=== PATIENT | female | born 1975 | race Caucasian/White ===

== ENCOUNTER 2023-08-17 08:32 | Outpatient (OUT) | payer OTHER, SELFPAY ==
[2023-08-17 09:14] LABS: Carbon Dioxide 27.2 mmol/L (21.0-32.0); Chloride 104 mmol/L (98-107); Estimated GFR (African America >60 (>=60); Estimated GFR (Non-African Ame 53 (>=60); Potassium 4.2 mmol/L (3.5-5.1); Sodium 142 mmol/L (136-145)
== END 2023-08-17 08:33 | disposition home or self-care (01) ==
DX: I10 Essential (primary) hypertension (principal)
CPT/HCPCS: 36415; 80051; 82565; 84520

== ENCOUNTER 2023-08-18 08:34 | Outpatient (OUT) | payer OTHER, SELFPAY ==
--- OUTSIDE RECORDS SUMMARY | 2023-08-18 08:39 | XMS_ITS | CCD ---
Author Name Unknown Address [address] [place] [address] Organization [facility] Care Team Providers Care Cluster Bore Operator Name Role Phone Toy Obrien Primary Care Provider [phone] TOY OBRIEN Primary Care Unavailable GARFIELD RESTREPO Attending Unavailable TOY OBRIEN Primary Care Unavailable GARFIELD RESTREPO Attending Unavailable BLANCA DAWN Referring Unavailable TOY OBRIEN Primary Care Unavailable BLANCA DAWN Referring Unavailable TOY OBRIEN Primary Care Unavailable Toy Obrien MD Primary Care Provider [phone] Toy Obrien MD Primary Care Provider ZOEY Monson Attending Provider Toy Obrien MD Primary Care Provider [phone] Jud Monson Admitting Unavailable Jud Monson Attending Unavailable NON STAFF Primary Care Unavailable CRISTHIAN FALCON Attending Unavailable CRISTHIAN FALCON Attending Unavailable TOY OBRIEN Primary Care Unavailable JACOBR, LACHELLE Natty Referring Unavailable TERRY SHEFFIELD Referring Unavailabl e TOY OBRIEN Primary Care Unavailable BOBLUR, LACHELLE N Admitting Unavailable CLINTON, LACHELLE N Attending Unavailable TOY OBRIEN Primary Care Unavailable Jud Monson Unavailable TOY OBRIEN Primary Care Unavailable NOEMI PHAM Referring Unavailable NOEMI PHAM Referring Unavailable TOY OBRIEN Primary Care Unavailable TOY OBRIEN Primary Care Unavailable NOEMI PHAM Referring Unavailable TOY OBRIEN Primary Care Unavailable NOEMI PHAM Referring Unavailable NOEMI PHAM Attending Unavailable TOY OBRIEN Primary Care Unavailable TOY OBRIEN Primary Care Unavailable NOEMI PHAM Attending Unavailable TOY OBRIEN Primary Care Unavailable NOEMI PHAM Attending Unavailable TOY OBRIEN Primary Care Unavailable LIZ CONNOLLY Attending Unavailable LIZ CONNOLLY Referring Unavailable TOY OBRIEN Primary Care Unavailable Beba Richey Unavailable Toy Obrien MD Primary Care Provider Betty Moreau Unavailable CODY HUTCHINS Attending Unavailable TOY OBRIEN Referring Unavailable TOY OBRIEN Primary Care Unavailable Allergies Allergy Classification Reported Allergen(s) Allergy Type Date of Onset Reaction(s) Facility NSAIDs (1 source) meloxicam Drug Allergy 7 [facility] (20 sources) meloxicam; Translations: [MELOXICAM] Drug Allergy 7 [place], [place] (20 sources) Methotrexate; Translations: [METHOTREXATE] Drug Allergy 5 GI Upset, [facility] (5 sources) Isosorbide; Translations: [ISOSORBIDE MONONITRATE] Drug Allergy 2 Headache, Vomiting [facility] (3 sources) Isosorbide Dinitrate Drug Allergy Unknown [facility] Other Medications Current Medications Medication Drug Class(es) Dates Sig (Normalized) Sig (Original) amLODIPine 2.5 mg oral tablet (6 sources) Dihydropyridine Calcium Channel Salvador Start: 10-29-2022 take 1 tablet by mouth in the morning amLODIPine (NORVASC) 2.5 mg tablet TAKE 1 TABLET (2.5 MG TOTAL) BY MOUTH IN THE MORNING. 30 tablet 11 10/29/2022 Active amoxicillin 875 mg / clavulanate 125 mg oral tablet (2 sources) Penicillin-class Antibacterial Start: 07-13-2023 take 1 tablet by mouth every twelve hours Amoxicillin-Pot Clavulanate 875-125 MG 1 tablet Orally every 12 hrs for 10 day(s) Jun, Active ARIPiprazole 5 mg oral tablet (20 sources) Atypical Antipsychotic Start: 09-30-2021 take 1 tablet by mouth in the morning ARIPiprazole (ABILIFY) 5 mg tablet Take 1 tablet (5 mg total) by mouth in the morning. 0 09/30/2021 Active Start: 02-07-2019 take 1 tablet by candice th once daily ARIPiprazole (ABILIFY) 2 mg tablet Take 2 mg by mouth once daily. 5 02/07/2019 Active Comment on above: Take 2 mg by mouth o nce daily. aspirin 81 mg delayed release oral tablet (6 sources) Platelet Aggregation Inhibitor, Nonsteroidal Anti-inflammatory Drug Start: 09-22-2021 take 1 tablet by mouth once daily aspirin 81 mg Take 1 tablet (81 mg total) by mouth daily. 0 09/22/2021 Active take 1 tablet by candice th every twenty-four hours Aspirin 81 MG 1 tablet Orally Once a day Active busPIRone hydrochloride 10 mg oral tablet (20 sources) Start: 03-16-2022 take 1 tablet by mouth in the morning busPIRone (BUSPAR) 10 mg tablet Take 1 tablet (10 mg total) by mouth in the morning. 0 03/16/2022 Active take 1 tablet by mouth three celina es daily busPIRone (BUSPAR) 10 mg tablet Take 10 mg by mouth three times daily. 0 Active Comment on above: Take 10 mg by mouth three times daily. fluconazole 150 mg oral tablet (1 source) Azole Antifungal Start: 07-22-20 take 1 tablet by mouth once Fluconazole 150 MG 1 tablet Orally once for 1 day Jun, Active fluticasone propionate 0.05 mg/actuat metered dose nasal spray (2 sources) Corticosteroid Start: 07-13-20 take 2 spray(s) nasal route once daily Fluticasone Propionate 50 MCG/ACT 2 sprays Nasally Once a day for 14 day(s) Jun, Active 24 hr metoprolol succinate 25 mg extended release oral tablet (20 sources) beta-Adrenergic Salvador Start: 09-08-19 take 0.5 tablet by mouth every twenty-four hours in the morning metoprolol succinate XL (TOPROL XL) 25 mg 24 hr tablet Take 0.5 tablets (12.5 mg total) by mouth in the morning. 30 tablet 2 09/08/2022 Active metoprolol tartr ate, short acting, (LOPRESSOR) 25 mg tablet Take 12.5 mg by mouth once daily. 0 Active Comment on above: Take 12.5 mg by mout h once daily. nitroglycerin 0.4 mg sublingual tablet (3 sources) Nitrate Vasodilator Start: 09-14-19 nitroglycerin (NITROSTAT) 0.4 MG SL tablet 1 under the tongue as needed for angina, may repeat q5mins for up three doses 25 tablet 5 09/14/2022 Active predniSONE 20 mg oral tablet (18 sources) Start: 07-13-20 take 1 tablet by mouth every twelve hours predniSONE 20 MG 1 tablet Orally bid for 5 day(s) Jun, Active Start: 08-11-2022 take 2-3 tablets by mouth once daily predniSONE (DELTASONE) 5 mg tablet Take 2 to 3 tabs po qd 150 tablet 2 08/11/2022 Active Start: 02-07-2021 End: 02-17-2021 take 1 tablet by mouth once daily predniSONE (DELTASONE) 20 MG tablet Take 1 tablet by mouth daily for 10 days 10 tablet 0 02/07/2021 02/17/2021 Active Comment on above: Take 2 to 3 tabs po qd propranolol hydrochloride 40 mg oral tablet (5 sources) beta-Adrenergic Salvador Start: 12-27-19 13 propranolol (INDERAL) 40 MG tablet rosuvastatin calcium 5 mg oral tablet (3 sources) HMG-CoA Reductase Inhibitor Start: 08-13-19 take 1 tablet by mouth in the morning rosuvastatin (CRESTOR) 5 mg tablet Take 1 tablet (5 mg total) by mouth in the morning. 30 tablet 08/13/2022 Active sertraline 100 mg oral tablet (20 sources) Serotonin Reuptake Inhibitor Start: 03-13-20 13 sertraline (ZOLOFT) 100 MG tablet Comment on above: Take 100 mg by mouth once daily. SUMAtriptan 100 mg oral tablet (4 sources) Serotonin-1b and Serotonin-1d Receptor Agonist Start: 03-10-20 End: 08-04-19 25 SUMAtriptan (IMITREX) 100 mg tablet Take 1 tablet (100 mg total) by mouth once as needed for migraine. May repeat in 2 hours if unresolved. Do not exceed 200 mg in 24 hours. 9 tablet 08/05/2023 08/04/2024 Active tiZANidine 4 mg oral tablet (4 sources) Central alpha-2 Adrenergic Agonist Start: 03-10-20 End: 08-05-19 take 1 tablet by mouth once daily tiZANidine (ZANAFLEX) 4 mg tablet Take 1-2 tablets (4-8 mg total) by mouth nightly. 60 tablet 2 08/05/2023 Active zonisamide 100 mg oral capsule (7 sources) Anti-epileptic Agent Start: 06-20-20 End: 08-05-19 take 1 capsule by mouth once daily in the morning, then take 2 capsules by mouth once daily zonisamide (ZONEGRAN) 100 mg capsule Take 1 capsule (100 mg total) by mouth every morning AND 2 capsules (200 mg total) nightly. 90 capsule 5 08/05/2023 Active Start: 03-10-2023 End: 08-05-2023 take 1-3 capsules by mouth once daily at dinner zonisamide (ZONEGRAN) 25 mg capsule Take 1-3 capsules (25-75 mg total) by mouth Daily before evening meal. 42 capsule 0 03/10/2023 08/05/2023 Discontinued Completed/Discontinued Medications Medication Drug Class(es) Dates Sig (Normalized) Sig (Original) COMPOUNDED PRESCRIPTION (20 sources) Start: 01-03-2017 COMPOUNDED PRESCRIPTION Handicapped placard Diagnosis- RA Cannot walk >200 ft Duration- 3 yrs 1 Applicator 0 01/03/2017 Active Comment on above: Handicapped placard Diagnosis- RA Cannot walk >200 ft Duration- 3 yrs diphenhydrAMINE (2 sources) Histamine-1 Receptor Antagonist Start: 08-05-2023 End: 08-05-2023 diphenhydrAMINE (BENADRYL) injection 50 mg 1 ml etanercept 50 mg/ml prefilled syringe (20 sources) Tumor Necrosis Factor Salvador Start: 05-19-2023 Etanercept (ENBREL) 50 mg/mL (1 mL) injection Indications: Seropositive rheumatoid arthritis of multiple sites (HCC) Inject 50mg sq qwkly 12 mL 1 05/19/2023 Active Start: 12-29-2021 End: 01-14-2023 Etanercept (ENBREL) 50 mg/mL (1 mL) injection Inject 50mg sq qwkly 12 Syringe 3 12/29/2021 01/14/2023 Discontinued Start: 09-24-2021 EnbreL 50 mg/m L (1 mL) injection Start: 11-27-2020 Etanercept (EN BREL) 50 mg/mL (1 mL) injection Inject 50mg sq qwkly 12 Syringe 3 11/27/2020 Active Enbrel 25 MG/0.5 ML 0.5 mL Subcutaneous Active Comment on above: Inject 50mg sq qwkly hydroxychloroquine sulfate 200 mg oral tablet (20 sources) Antimalarial, Antirheumatic Agent Start: 2022 take 1 tablet by mouth twice daily hydrOXYchloroQUINE (PLAQUENIL) 200 mg tablet TAKE 1 TABLET BY MOUTH TWICE A DAY 60 tablet 3 03/07/2023 Active Start: 08-07-2015 End: 08-05-2023 take 1 tablet by mouth twice daily hydrOXYchloroQUINE (PLAQUENIL) 200 mg tablet Take 1 tablet by mouth twice daily. 60 tablet 3 06/07/2022 10/04/2022 Discontinued Comment on above: Take 1 tablet by candice th twice daily. TAKE 1 TABLET BY CANDICE TH TWICE A DAY ibuprofen 800 mg oral tablet (20 sources) Nonsteroidal Anti-inflammatory Drug Start: 01-19-2021 ibuprofen (MOTRIN) 800 mg tablet Take 800 mg by mouth as needed. 0 01/19/2021 Active Start: 11-20-2016 take 1 tablet by candice th every eight hours as needed for pain ibuprofen (ADVIL;MOTRIN) 600 MG tablet Take 1 tablet by mouth every 8 hours as needed for Pain 30 tablet 0 11/20/2016 Active Comment on above: Take 800 mg by mouth as needed. 1 ml ketorolac tromethamine 30 mg/ml injection (6 sources) Nonsteroidal Anti-inflammatory Drug, Cyclooxygenase Inhibitor Start: 08-05-2023 End: 08-05-2023 ketorolac (TORADOL) injection 30 mg Start: 03-25-2023 End: 08-05-2023 take 1 tablet by mouth every six hours as needed for pain ketorolac (TORADOL) 10 mg tablet Take 1 tablet (10 mg total) by mouth every 6 (six) hours as needed for pain. 10 tablet 0 03/25/2023 08/05/2023 Discontinued Start: 01-19-2021 take 1 tablet by candice th every six hours as needed for pain ketorolac (TORADOL) 10 MG tablet Take 1 tablet by mouth every 6 hours as needed for Pain 20 tablet 0 01/19/2021 Active levothyroxine sodium 0.05 mg oral tablet (20 sources) l-Thyroxine Start: 02-23-2013 take 1 tablet by mouth once daily levothyroxine (SYNTHROID) 50 mcg tablet Take 50 mcg by mouth once daily. 0 01/02/2021 Active Comment on above: Take 50 mcg by mouth once daily. 10 ml lidocaine hydrochloride 10 mg/ml injection (1 source) Antiarrhythmic, Amide Local Anesthetic Start: 06-24-2023 End: 06-24-2023 lidocaine (PF) 10 mg/mL (1 %) 2 mL injection (XYLOCAINE) magnesium oxide 400 mg oral tablet (20 sources) Start: 03-25-2021 take 1 tablet by mouth twice daily magnesium oxide (MAG-OX) 400 mg (241.3 mg magnesium) tablet Indications: Intractable migraine equivalent , Muscle twitching Take 1 tablet by mouth twice daily. 60 tablet 5 03/25/2021 Active Start: 02-12-2016 take 400 mg by mouth once rekha y Magnesium Oxide (MAG-OX PO) Take 400 mg by mouth daily 0 02/12/2016 Active Comment on above: Take 1 tablet by candice th twice daily. metaxalone 800 mg oral tablet (14 sources) Start: 01-12-2023 take 0.5 tablet by mouth twice daily as needed metaxalone (SKELAXIN) 800 mg tablet TAKE 1/2 TABLET BY MOUTH TWICE A DAY NEEDED 30 tablet 1 01/12/2023 Active Start: 10-28-2022 End: 01-12-2023 take 1 tablet by mouth twice daily as needed Metaxalone 400 mg tab One tab po bid prn 60 tablet 1 10/28/2022 01/12/2023 Discontinued Start: 02-07-2021 take 1 tablet by candice th three times daily metaxalone (SKELAXIN) 400 MG tablet Take 1 tablet by mouth 3 times daily 21 tablet 0 02/07/2021 Active Comment on above: One tab po bid prn TAKE 1/2 TABLET BY [facility] TWICE A DAY NEEDED 1 ml methylPREDNISolone acetate 80 mg/ml injection (20 sources) Corticosteroid Start: 08-11-19 End: 08-11-19 methylPREDNISolone acetate 80 mg injection (DEPO-Medrol) Start: 05-17-2022 methylPREDNISo lone (MEDROL, MARYBEL,) 4 mg Dose-Pack As Instructed per package 21 tablet 0 05/17/2022 Active Comment on above: As Instructed per elder schofield omeprazole 40 mg delayed release oral capsule (20 sources) Proton Pump Inhibitor Start: 03-06-20 take 1 capsule by mouth once daily omeprazole (PRILOSEC) 40 mg capsule Take 40 mg by mouth once daily. 0 03/06/2021 Active Comment on above: Take 40 mg by mouth once daily. ondansetron 4 mg oral tablet (20 sources) Serotonin-3 Receptor Antagonist Start: 05-13-20 End: 05-31-20 take 1 tablet by mouth every twelve hours as needed ondansetron (ZOFRAN) 4 mg tablet TAKE 1 TABLET BY MOUTH EVERY 12 HOURS NEEDED 30 tablet 2 05/31/2022 Active Comment on above: TAKE 1 TABLET BY CANDICE TH EVERY 12 HOURS NEEDED 1 ml promethazine hydrochloride 25 mg/ml injection (2 sources) Phenothiazine Start: 08-05-19 End: 08-05-19 promethazine (PHENERGAN) injection 25 mg Start: 08-05-2023 End: 08-05-2023 promethazine (PHENERGAN) inj ection 25 mg 12 hr ranolazine 1000 mg extended release oral tablet (3 sources) Anti-anginal Start: 09-14-2022 End: 08-05-2023 take 1 tablet by mouth every twelve hours in the morning, then take 1 tablet by mouth at bedtime ranolazine (RANEXA) 1,000 mg 12 hr tablet Take 1 tablet (1,000 mg total) by mouth in the morning and 1 tablet (1,000 mg total) before bedtime. 180 tablet 3 09/14/2022 08/05/2023 Discontinued semaglutide, weight loss, (WEGOVY) 0.25 mg/0.5 mL pen injector (20 sources) inject 0.25 mg by subcutaneous injection every week semaglutide, weight loss, (WEGOVY) 0.25 mg/0.5 mL pen injector Inject 0.25 mg subcutaneously one time a week. 0 Active Comment on above: Inject 0.25 mg subcutaneously one time a week. topiramate 100 mg oral tablet (20 sources) Start: 03-06-2021 take 1 tablet by mouth once daily at bedtime topiramate (TOPAMAX) 100 mg tablet Take 100 mg by mouth daily at bedtime. 0 03/06/2021 Active Start: 03-27-2013 topiramate (TO PAMAX) 25 MG tablet Take 25 mg by mouth. 0 03/27/2013 Active Comment on above: Take 100 mg by mouth daily at bedtime. 1 ml triamcinolone acetonide 40 mg/ml injection (7 sources) Corticosteroid Start: 06-24-2023 End: 06-24-2023 triamcinolone acetonide 80 mg injection (KeNALog 40) Start: 07-30-2022 Kenalog-40 May, 40 mg Problems Active Problems Problem Classification Problem Date Documented Da te Episodic/Chronic Anxiety disorders (3 sources) Anxiety; Translations: [Anxiety disorder, unspecified] Onset: 12-14-2017 08-07-2020 Chronic Asthma (3 sources) Asthma without status asthmaticus; Translations: [Unspecified asthma, uncomplicated] Onset: 09-26-2019 09-26-2019 Chronic Cardiac dysrhythmias (3 sources) Postural orthostatic tachycardia syndrome ; Translations: [Postural orthostatic tachycardia syndrome] Onset: 09-26-2019 09-07-2022 Chronic Coronary atherosclerosis and other heart disease (3 sources) Coronary artery spasm; Translations: [Angina pectoris with documented spasm] Onset: 10-14-2021 09-07-2022 Chronic Disorders of lipid metabolism (3 sources) Hypercholesterolemi a; Translations: [Pure hypercholesterolemi a, unspecified] Onset: 09-26-2019 09-26-2019 Chronic Endometriosis (3 sources) Endometriosis (clinical); Translations: [Endometriosis, unspecified] Onset: 09-26-2019 09-26-2019 Chronic Esophageal disorders (5 sources) Gastro-esophageal reflux disease without esophagitis; Translations: [Gastroesophageal reflux disease] Onset: 09-26-2019 Chronic Essential hypertension (3 sources) Hypertensive disorder; Translations: [Essential (primary) hypertension] Onset: 09-22-2021 09-07-2022 Chronic Genitourinary symptoms and ill-defined conditions (3 sources) Incontinence without sensory awareness; Translations: [Incontinence without sensory awareness] Onset: 09-26-2019 09-26-2019 Chronic Headache; including migraine (20 sources) Refractory migraine variants; Translations: [Migraine with aura, intractable, without status migrainosus] Onset: 09-26-2019 03-25-2021 Chronic Heart valve disorders (6 sources) Mitral valve regurgitation; Translations: [Nonrheumatic mitral (valve) insufficiency] Onset: 07-10-2010 Resolved: 07-23-2021 09-14-2022 Chronic Nutritional deficiencies (20 sources) Vitamin D deficiency; Translations: [Vitamin D deficiency, unspecified] Onset: 11-05-2018 11-05-2018 Chronic Other connective tissue disease (1 source) Neuropathic pain; Translations: [Neuralgia and neuritis, unspecified] Episodic Other connective tissue disease (5 sources) Fibromyalgia; Translations: [Fibromyalgia] Onset: 09-26-2019 Episodic Other connective tissue disease (1 source) Lateral epicondylitis, right elbow Episodic Other connective tissue disease (1 source) Bilateral trochanteric bursitis; Translations: [Trochanteric bursitis, right hip] 06-24-2023 Episodic Other connective tissue disease (4 sources) Muscle spasm of cervical muscle of neck; Translations: [Other muscle spasm] Onset: 09-26-2019 09-26-2019 Episodic Other endocrine disorders (3 sources) Polycystic ovary; Translations: [Polycystic ovarian syndrome] Onset: 09-26-2019 09-26-2019 Chronic Other gastrointestinal disorders (1 source) Intestinal malabsorption, unspecified; Translations: [Intestinal malabsorption, unspecified] Onset: 03-21-2023 Chronic Other gastrointestinal disorders (2 sources) Diarrhea, unspecified; Translations: [Diarrhea, unspecified] Onset: 09-08-2022 Episodic Other liver diseases (2 sources) Enzyme level - finding; Translations: [Abnormal levels of other serum enzymes] Episodic Other nervous system disorders (3 sources) Chronic pain; Translations: [Other chronic pain] Onset: 09-26-2019 09-26-2019 Chronic Other nervous system disorders (4 sources) Paresthesia; Translations: [Paresthesia of skin] Onset: 09-26-2019 09-26-2019 Episodic Other non-traumatic joint disorders (10 sources) Multiple joint pain; Translations: [Pain in unspecified joint] Onset: 01-04-2023 01-04-2023 Episodic Other non-traumatic joint disorders (1 source) Pain in right elbow Episodic Other non-traumatic joint disorders (1 source) Pain in unspecified joint; Translations: [Pain in joint, multiple sites] Onset: 06-24-2023 Episodic Other nutritional; endocrine; and metabolic disorders (20 sources) Obese class I; Translations: [Obesity, unspecified] Onset: 10-30-2018 10-30-2018 Chronic Other nutritional; endocrine; and metabolic disorders (3 sources) Insulin resistance; Translations: [Insulin resistance] Onset: 09-26-2019 09-26-2019 Chronic Other nutritional; endocrine; and metabolic disorders (3 sources) Metabolic syndrome X; Translations: [Metabolic syndrome X] Onset: 12-06-2012 06-24-2021 Chronic Other nutritional; endocrine; and metabolic disorders (3 sources) Body mass index 30+ - obesity; Translations: [Obesity, unspecified] Onset: 09-22-2021 09-22-2021 Chronic Other upper respiratory infections (1 source) Acute sinusitis, unspecified Episodic Otitis media and related conditions (1 source) Otitis media, unspecified, right ear Episodic Residual codes; unclassified (20 sources) Unrefreshed by sleep; Translations: [Other sleep disorders] Onset: 03-25-2021 03-25-2021 Chronic Residual codes; unclassified (20 sources) Obstructive sleep apnea syndrome; Translations: [Obstructive sleep apnea (adult) (pediatric)] Onset: 02-12-2020 03-25-2021 Chronic Residual codes; unclassified (3 sources) Periodic limb movement disorder; Translations: [Periodic limb movement disorder] Onset: 09-26-2019 09-26-2019 Chronic Rheumatoid arthritis and related disease (6 sources) Rheumatoid arthritis of multiple joints; Translations: [Rheumatoid arthritis, unspecified] Onset: 09-26-2019 Chronic Systemic lupus erythematosus and connective tissue disorders (3 sources) Autoimmune disease; 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, unspecified] Onset: 09-26-2019 09-26-2019 Chronic Thyroid disorders (3 sources) Acquired hypothyroidism; Translations: [Hypothyroidism, unspecified] Onset: 10-23-2015 08-21-2021 Chronic Unclassified (1 source) Sprain of left foot; Translations: [Sprain of left foot, initial encounter] Unclassified (1 source) Pain in right elbow; Translations: [Pain in right elbow] Onset: 07-30-2022 Past or Other Problems Problem Classification Problem Date Documented Da te Episodic/Chronic Abdominal pain (5 sources) Abdominal pain; Translations: [Unspecified abdominal pain] Onset: 3 03-28-2013 Episodic Blindness and vision defects (20 sources) Diplopia; Translations: [Diplopia] Onset: 9 11-05-2018 Episodic Cancer of cervix (3 sources) Cervicovaginal cytology: Low grade squamous intraepithelial lesion; Translations: [Low grade squamous intraepithelial lesion on cytologic smear of cervix (LGSIL)] Onset: 0 09-26-2019 Episodic Cardiac dysrhythmias (3 sources) Intermittent palpitations; Translations: [Palpitations] Onset: 8 08-21-2021 Episodic Coma; stupor; and brain damage (20 sources) Daytime somnolence; Translations: [Somnolence] Onset: 9 11-05-2018 Episodic Conditions associated with dizziness or vertigo (8 sources) Vertigo; Translations: [Dizziness and giddiness] Onset: 0 09-26-2019 Episodic Gastrointestinal hemorrhage (3 sources) Blood-tinged feces; Translations: [Melena] Onset: 5 06-24-2021 Episodic Malaise and fatigue (20 sources) Fatigue; Translations: [Other fatigue] Onset: 9 11-05-2018 Episodic Mood disorders (3 sources) Mood disorders Onset: 3 09-06-2022 Nonspecific chest pain (6 sources) Chest pain; Translations: [Chest pain, unspecified] Onset: 6 09-22-2021 Episodic Other connective tissue disease (20 sources) Muscle pain; Translations: [Myalgia, unspecified site] Onset: 9 11-05-2018 Episodic Other connective tissue disease (20 sources) Myofascial pain syndrome; Translations: [Myalgia, other site] Onset: 1 03-25-2021 Episodic Other connective tissue disease (1 source) Fibromyalgia; Translations: [Fibromyalgia] Onset: 0 Episodic Other connective tissue disease (1 source) Other muscle spasm; Translations: [Other muscle spasm] Onset: 0 Episodic Other disorders of stomach and duodenum (3 sources) Gastroparesis syndrome; Translations: [Gastroparesis] Onset: 0 09-26-2019 Episodic Other gastrointestinal disorders (5 sources) Abdominal bloating; Translations: [Abdominal distension (gaseous)] Onset: 3 03-28-2013 Episodic Other gastrointestinal disorders (1 source) Full incontinence of feces; Translations: [Full incontinence of feces] Onset: 3 Episodic Other gastrointestinal disorders (2 sources) Other fecal abnormalities; Translations: [Other fecal abnormalities] Onset: 3 Episodic Other liver diseases (3 sources) Abnormal levels of other serum enzymes; Translations: [Abnormal levels of other serum enzymes] Onset: 3 Episodic Other lower respiratory disease (3 sources) Dyspnea on exertion; Translations: [Shortness of breath] Onset: 5 08-21-2021 Episodic Other nervous system disorders (20 sources) Muscle fasciculation; Translations: [Fasciculation] Onset: 9 11-05-2018 Episodic Other nervous system disorders (20 sources) Muscle twitch; Translations: [Fasciculation] Onset: 1 03-25-2021 Episodic Other nervous system disorders (1 source) Paresthesia of skin; Translations: [Paresthesia of skin] Onset: 0 Episodic Other non-traumatic joint disorders (8 sources) Joint swelling; Translations: [Effusion, unspecified joint] Onset: 3 01-04-2023 Episodic Other nutritional; endocrine; and metabolic disorders (20 sources) History of nutritional deficiency; Translations: [Personal history of other endocrine, nutritional and metabolic disease] Onset: 1 03-25-2021 Episodic Other nutritional; endocrine; and metabolic disorders (20 sources) H/O: hypothyroidism; Translations: [Personal history of other endocrine, nutritional and metabolic disease] Onset: 1 03-25-2021 Episodic Other screening for suspected conditions (not mental disorders or infectious disease) (6 sources) Electrocardiogram abnormal; Translations: [Abnormal electrocardiogram [ECG] [EKG]] Onset: 0 04-21-2018 Episodic Other skin disorders (8 sources) Skin finding; Translations: [Unspecified skin changes] Onset: 3 01-04-2023 Episodic Other skin disorders (1 source) Rash and other nonspecific skin eruption; Translations: [Malar rash] Onset: 3 Episodic Residual codes; unclassified (20 sources) Disturbance in sleep behavior; Translations: [Sleep disorder, unspecified] Onset: 9 11-05-2018 Episodic Spondylosis; intervertebral disc disorders; other back problems (8 sources) Neck pain; Translations: [Cervicalgia] Onset: 0 09-26-2019 Episodic Sprains and strains (3 sources) Strain of flexor muscle of hip; Translations: [Strain of muscle, fascia and tendon of unspecified hip, initial encounter] Onset: 3 06-24-2021 Episodic Syncope (3 sources) Syncope and collapse; Translations: [Syncope and collapse] Onset: 4 Resolved: 8 04-26-2018 Episodic Unclassified (3 sources) Onset: 8 12-21-2017 Results Test Name Value Interpretation Reference Range Facil it ALDOLASE BLDon 06-24-2023 Aldolase [Catalytic activity/Vol] 11.2 mU/mL High 1.5 - 8.1 U/L [facility] Aldolase SerPl-cCncon 2022 Aldolase [Catalytic activity/Vol] 11.2 mU/mL High 1.5-8.1 [facility] Comment on above: Order Comment: Speci men Type: BLOOD SPECIMEN Ordering Facility: [facility] Address: [address] [place] [address] Result Comment: This test was developed and its performance characteristics determined by [facility]'s [facility] [place] ([facility]). It has not been cleared or approved by the FDA. [facility] is regulated under CLIA as qualified to perform high-complexity testing. This test is used for clinical purposes. It should not be regarded as investigational or for research. Performed By: #### 1 761-6 #### [facility] CLIA [id number] [address] [facility] [place] [address] [place] C-REACTIVE PROTEIN (CRP)on 08-25-2022 CRP [Mass/Vol] 0.6 mg/dL <0.9 mg/dL [facility] CBC panel Auto (Bld)on 06-24 Erythrocyte distribution width (RBC) [Ratio] 11.9 % Normal 11.5-15.0 [facility] Comment on above: Order Comment: Speci men Type: BLOOD SPECIMEN Ordering Facility: [facility] Address: [address] [place] [address] Performed By: #### 5 8410-2 #### [facility] CLIA [id number] [address] [place], [place] [id number] [place] [address] [place] Hematocrit (Bld) [Volume fraction] 45.7 % Normal 36.0-46.0 [facility] Comment on above: Order Comment: Speci men Type: BLOOD SPECIMEN Ordering Facility: [facility] Address: [address] [place] [address] Performed By: #### 5 8410-2 #### [facility] IA [id number] [address] [place] [address] [place] Hemoglobin (Bld) [Mass/Vol] 15.5 g/dL Normal 11.5-15.5 [facility] Comment on above: Order Comment: Speci men Type: BLOOD SPECIMEN Ordering Facility: [facility] Address: [address] [place] [address] Performed By: #### 5 8410-2 #### [facility] CLIA [id number] [address] [place] [address] [place] MCH (RBC) [Entitic mass] 31.6 pg Normal 26.0-34.0 [facility] Comment on above: Order Comment: Speci men Type: BLOOD SPECIMEN Ordering Facility: [facility] Address: [address] [place] [address] Performed By: #### 5 8410-2 #### [facility] CLIA [id number] [address] [place] [id number] [place] MCHC (RBC) [Mass/Vol] 33.9 g/dL Normal 30.5-36.0 [facility] Comment on above: Order Comment: Speci men Type: BLOOD SPECIMEN Ordering Facility: [facility] Address: [address] [place] [address] Performed By: #### 5 8410-2 #### [facility] CLIA [id number] [address] [place] [address] [place] MCV (RBC) [Entitic vol] 93.1 fL Normal 80.0-100.0 [facility] Comment on above: Order Comment: Speci men Type: BLOOD SPECIMEN Ordering Facility: [facility] Address: [address] [place] [address] Performed By: #### 5 8410-2 #### [facility] IA [id number] [address] [place] [address] [place] Nucleated RBC (Bld) [#/Vol] 10*3/uL Normal <0.01 [facility] Comment on above: Order Comment: Speci men Type: BLOOD SPECIMEN Ordering Facility: [facility] Address: [address] [place] [address] Performed By: #### 5 8410-2 #### [facility] IA [id number] [address] [place] [address] [place] Platelet mean volume (Bld) [Entitic vol] 10.6 fL Normal 9.0-12.7 [facility] Comment on above: Order Comment: Speci men Type: BLOOD SPECIMEN Ordering Facility: [facility] Address: [address] [place] [address] Performed By: #### 5 8410-2 #### [facility] IA [id number] [address] [place] [address] [place] Platelets (Bld) [#/Vol] 192 10*3/uL Normal 150-400 [facility] Comment on above: Order Comment: Speci men Type: BLOOD SPECIMEN Ordering Facility: [facility] Address: [address] [place] [address] Performed By: #### 5 8410-2 #### [facility] IA [id number] [address] [place] [address] [place] RBC (Bld) [#/Vol] 4.91 10*6/uL Normal 3.90-5.20 [facility] Comment on above: Order Comment: Speci men Type: BLOOD SPECIMEN Ordering Facility: [facility] Address: [address] [place] [address] Performed By: #### 5 8410-2 #### [facility] CLIA [id number] [address] [place] [address] [place] [facility] WBC (Bld) [#/Vol] 8.95 10*3/uL Normal 3.70-11.00 [facility] Comment on above: Order Comment: Speci men Type: BLOOD SPECIMEN Ordering Facility: [facility] Address: [address] [place] [id number] Performed By: #### 5 8410-2 #### [facility] CLIA [id number] [address] [place] [address] [place] Erythrocyte distribution width (RBC) [Ratio] 11.9 % 11.5 - 15.0 % [facility] Hematocrit (Bld) [Volume fraction] 45.7 % 36.0 - 46.0 % [facility] Hemoglobin (Bld) [Mass/Vol] 15.5 g/dL 11.5 - 15.5 g/dL [facility] MCH (RBC) [Entitic mass] 31.6 pg 26.0 - 34.0 pg [facility] MCHC (RBC) [Mass/Vol] 33.9 g/dL 30.5 - 36.0 g/dL [facility] MCV (RBC) [Entitic vol] 93.1 fL 80.0 - 100.0 fL [facility] Nucleated RBC (Bld) [#/Vol] <0.01 k/uL [facility] Platelet mean volume (Bld) [Entitic vol] 10.6 fL 9.0 - 12.7 fL [facility] Platelets (Bld) [#/Vol] 192 10*3/uL 150 - 400 k/uL [facility] RBC (Bld) [#/Vol] 4.91 10*6/uL 3.90 - 5.2 0 m/uL [facility] WBC (Bld) [#/Vol] 8.95 10*3/uL 3.70 - 11. 00 k/uL [facility] CK CREATINE KINASEon 023 CK [Catalytic activity/Vol] 119 U/L 42 - 196 U/L [facility] CK SerPl-cCncon 06-24-2023 CK [Catalytic activity/Vol] 119 U/L Normal 42-196 [facility] Comment on above: Order Comment: Speci men Type: BLOOD SPECIMEN Ordering Facility: [facility] Address: [place] [address] Performed By: #### 2 157-6, 1987-, 45775-9 #### [facility] CLIA [id number] [address] [place] [address] [facility] CNOVon 06-24-2023 CNOV Office Visit (RHEUAV ) LYNETTE HAIRSTON ([id number]) 1975 F Date Time Provider Department 06/24/23 11:20 AM NOEMI PHAM During your visit today, we recorded the following information about you: Pulse Respiration Blood pressure Weight 104/minute 20/minute 114/77 108.9 kg Height 1.676 m Noemi Pham MD 06/24/2023 12:23 PM Signed Lynette Meade Crescencio is a 41 year old female who presents for follow up: LABS RF+,>650, elevated aldolase levels,slightly increased sed rate and crp EMG of rt upper and lower extremities- normal PREVIOUS DIAG myalgias- h/o FM - diagnosed in 2009, chronic back pain RA and 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- elevated aldolase and complaints of weakness pleurisy gastropresis Thoracic Outlet syndrome INTERVAL HISTORY since last visit,has severe pain of rt hip Tried ES tylenol but not helping All joints are stiff and painful Ankles and feet are stiff and swollen Tops of both thighs painful Sitffness getting worse No rash, ulcers, fevers, swollen lymph nodes, DVT/PE, raynauds, sicca symptoms, trouble swallowing, back pain, red eyes, Chron's/UC or Psoriasis. MEDS/THERAPIES TRIED: Plaquenil MTX- GI side effects Tied mobic- but caused hives Magnesium- for cramps, feels it has helped her migraines neurontin - did not help Imuran- never started Skelaxin - did not help Norflex- did not help Flexeril - ''knocks me out'' Enbrel - started on 11/11- feels it is helping Currently on Enbrel and plaquenil bid REVIEW OF SYSTEMS PAST MEDICAL HISTORY Diagnosis Date - Fibromyalgia - Hypothyroidism - Migraines - POTS (postural orthostatic tachycardia syndrome) - Rheumatoid arthritis (HCC) No past surgical history on file. - Etanercept (ENBREL) 50 mg/mL (1 mL) injection Inject 50mg sq qwkly - hydrOXYchloroQUINE (PLAQUENIL) 200 mg tablet TAKE 1 TABLET BY MOUTH TWICE A DAY - metaxalone (SKELAXIN) 800 mg tablet TAKE 1/2 TABLET BY MOUTH TWICE A DAY NEEDED - predniSONE (DELTASONE) 5 mg tablet Take 2 to 3 tabs po qd - ondansetron (ZOFRAN) 4 mg tablet TAKE 1 TABLET BY MOUTH EVERY 12 HOURS NEEDED - methylPREDNISolone (MEDROL, MARYBEL,) 4 mg Dose-Pack As Instructed per package (Patient not taking: Reported on 01/14/2023) - magnesium oxide (MAG-OX) 400 mg (241.3 mg magnesium) tablet Take 1 tablet by mouth twice daily. - levothyroxine (SYNTHROID) 50 mcg tablet Take 50 mcg by mouth once daily. - metoprolol tartrate, short acting, (LOPRESSOR) 25 mg tablet Take 12.5 mg by mouth once daily. - omeprazole (PRILOSEC) 40 mg capsule Take 40 mg by mouth once daily. - topiramate (TOPAMAX) 100 mg tablet Take 100 mg by mouth daily at bedtime. - ibuprofen (MOTRIN) 800 mg tablet Take 800 mg by mouth as needed. - semaglutide, weight loss, (WEGOVY) 0.25 mg/0.5 mL pen injector Inject 0.25 mg subcutaneously one time a week. - ARIPiprazole (ABILIFY) 2 mg tablet Take 2 mg by mouth once daily. - busPIRone (BUSPAR) 10 mg tablet Take 10 mg by mouth three times daily. - COMPOUNDED PRESCRIPTION Handicapped placard Diagnosis- RA Cannot walk >200 ft Duration- 3 yrs - sertraline (ZOLOFT) 100 mg tablet Take 100 mg by mouth once daily. No family history on file. Social History Tobacco Use - Smoking status: Never - Smokeless tobacco: Never Substance Use Topics - Alcohol use: Yes Comment: Occasional - Drug use: Never There were no vitals taken for this visit. PE; ambulates well, pelasent mood Appears to be in no distress, very pleasant Pain on palpation of all joints No synovitis noted MOST RECENT LABS: REVIEWED WITH PATIENT IMP/PLAN: RA/FM- feels arthralgias are wrosening Now pain of both hips and top of thighs Rash on face still present, stopped plaquenil but rash persists -will continue to stay off plaquenil -continue Enbrel Bilateral hip pain -suspect due to bursitis, will inject today Large Joint Arthro/Inj: bilateral greater trochanteric bursa injection Informed Consent Consent Obtained: Verbal [place] Protocol A moment to CARE was completed. SIGN IN Sign in communication not applicable due to emergent procedure. Special Equipment: N/A Patient/Surrogate Stated/Verified: Patient name, Date of , Relevant allergies and Intended procedure TIME OUT Intended patient and procedure match the source document(s). Correct side/site marked and visible. 06/24/2023 12:19 PM The procedure site was prepped in the usual sterile fashion. Site: bilateral greater trochanteric bursas Medications (Right): 80 mg triamcinolone acetonide 40 mg/mL Anesthetics (Right): 2 mL lidocaine (PF) 10 mg/mL (1 %) Outcome: Tolerated well, no immediate complications Post-injection instructions were reviewed with the patient and the patient voiced understanding of these instructions. Injection sites verified by Inocencia Bui LPN In past eval by neurology for myopthay and (more content not included)... Normal [facility] CRP SerPl-mCncon 06-24-2023 CRP [Mass/Vol] 0.6 mg/dL Normal <0.9 [facility] Comment on above: Order Comment: Speci men Type: BLOOD SPECIMEN Ordering Facility: [facility] Address: [address] [place] [address] Performed By: #### 2 157-6, 1987-5, 38789-3 #### [facility] CLIA [id number] [address] [place] [address] [place] Comprehensive metabolic 2000 panelon 06-24-2023 Albumin [Mass/Vol] 4.5 g/dL Normal 3.9-4.9 [facility] Comment on above: Order Comment: Speci men Type: BLOOD SPECIMEN Ordering Facility: [facility] Address: [address] [place] [address] Performed By: #### 2 157-6, 1987-11, #### [facility] CLIA [id number] [address] [place] [address] [place] ALP [Catalytic activity/Vol] 46 U/L Normal 34-123 [facility] Comment on above: Order Comment: Speci men Type: BLOOD SPECIMEN Ordering Facility: [facility] Address: [address] [place] [address] Performed By: #### 2 157-6, 1987-11, #### [facility] IA [id number] [address] [place] [address] [place] ALT [Catalytic activity/Vol] 46 U/L High 7-38 [facility] Comment on above: Order Comment: Speci men Type: BLOOD SPECIMEN Ordering Facility: [facility] Address: [address] [place] [address] Performed By: #### 2 157-6, 1987-11, #### [facility] CLIA [id number] [address] [place] [address] [place] Anion gap [Moles/Vol] 8 mmol/L Low 9-18 [facility] Comment on above: Order Comment: Speci men Type: BLOOD SPECIMEN Ordering Facility: [facility] Address: [address] [place] [address] Performed By: #### 2 157-6, 1987-11, #### [facility] CLIA [id number] [place] [address] [place] AST [Catalytic activity/Vol] 39 U/L High 13-35 [facility] Comment on above: Order Comment: Speci men Type: BLOOD SPECIMEN Ordering Facility: [facility] Address: [address] [place] [address] Performed By: #### 2 157-6, 1987-11, #### [facility] CLIA [id number] [address] [place] [address] [place] Bilirubin [Mass/Vol] 1.2 mg/dL Normal 0.2-1.3 [facility] Comment on above: Order Comment: Speci men Type: BLOOD SPECIMEN Ordering Facility: [facility] Address: [address] [place] [address] Performed By: #### 2 157-6, #### [facility] CLIA [id number] [address] [place] [address] [place] Calcium [Mass/Vol] 9.5 mg/dL Normal 8.5-10.2 [facility] Comment on above: Order Comment: Speci men Type: BLOOD SPECIMEN Ordering Facility: [facility] Address: [address] [place] [address] Performed By: #### 2 157-6, #### [facility] CLIA [id number] [address] [place] [address] [place] Chloride [Moles/Vol] 105 mmol/L Normal 97-105 [facility] Comment on above: Order Comment: Speci men Type: BLOOD SPECIMEN Ordering Facility: [facility] Address: [address] [place] [id number] Performed By: #### 2 157-6, #### [facility] CLIA [id number] [address] [place] [address] [place] CO2 [Moles/Vol] 27 mmol/L Normal 22-30 [facility] Comment on above: Order Comment: Speci men Type: BLOOD SPECIMEN Ordering Facility: [facility] Address: [address] [place] [address] Performed By: #### 2 157-6, #### [facility] CLIA [id number] [address] [place], [place] [address] [place] [address] [place] Creatinine [Mass/Vol] 1.10 mg/dL High 0.58-0.96 [facility] Comment on above: Order Comment: [place] Type: BLOOD SPECIMEN Ordering Facility: [facility] Address: [address] [place] [address] Performed By: #### 2 157-6, #### [facility] CLIA [id number] [address] [place] [address] [facility] Creatinine and Glomerular filtration rate.predicted panel (S/P/Bld) 62 mL/min/1.73m??? Normal >=60 [facility] Comment on above: Order Comment: [place] Type: BLOOD SPECIMEN Ordering Facility: [facility] Address: [address] [place] [address] Result Comment: Flores mated Glomerular Filtration Rate (eGFR) is calculated using the 2020 CKD-EPI creatinine equation. This equation utilizes serum creatinine, sex, and age as parameters. The creatinine assay has traceable calibration to isotope dilution-mass spectrometry. Refer to KDIGO guidelines for clinical interpretation. In patients with unstable renal function, e.g. those with acute kidney injury, the eGFR may not accurately reflect actual GFR. Performed By: #### 2 157-6, #### [facility] CLIA [id number] [address] [place] [address] [place] Glucose [Mass/Vol] 94 mg/dL Normal 74-99 [facility] Comment on above: Order Comment: [place] Type: BLOOD SPECIMEN Ordering Facility: [facility] Address: [address] [place] [address] Result Comment: The [place] Diabetes Association (ADA) provides guidance for cutoff values for fasting glucose and random glucose. The ADA defines fasting as no caloric intake for at least 8 hours. Fasting plasma glucose results between 100 to 125 mg/dL indicate increased risk for diabetes (prediabetes). Fasting plasma glucose results greater than or equal to 126 mg/dL meet the criteria for diagnosis of diabetes. In the absence of unequivocal hyperglycemia, results should be confirmed by repeat testing. In a patient with classic symptoms of hyperglycemia or hyperglycemic crisis, random plasma glucose results greater than or equal to 200 mg/dL meet the criteria for diagnosis of diabetes. Reference: Standards of Medical Care in Diabetes 2016, [employer] Diabetes Association. Diabetes Care. 2016.39(Suppl 1). Performed By: #### 2 157-6, #### [facility] CLIA [id number] [address] [place] [address] [place] Potassium [Moles/Vol] 4.2 mmol/L Normal 3.7-5.1 [facility] Comment on above: Order Comment: Speci men Type: BLOOD SPECIMEN Ordering Facility: [facility] Address: [address] [place] [address] Performed By: #### 2 157, #### [facility] CLIA [id number] [place] [address] [place] Protein [Mass/Vol] 7.3 g/dL Normal 6.3-8.0 [facility] Comment on above: Order Comment: Speci men Type: BLOOD SPECIMEN Ordering Facility: [facility] Address: [address] [place] [address] Performed By: #### 2 1576, #### [facility] CLIA [id number] [address] [place] [address] [place] Sodium [Moles/Vol] 140 mmol/L Normal 136-144 [facility] Comment on above: Order Comment: Speci men Type: BLOOD SPECIMEN Ordering Facility: [facility] Address: [address] [place] [address] Performed By: #### 2 1576, #### [facility] CLIA [id number] [place] [address] [place] Urea nitrogen [Mass/Vol] 12 mg/dL Normal 7-21 [facility] Comment on above: Order Comment: Speci men Type: BLOOD SPECIMEN Ordering Facility: [facility] Address: [address] [place] [address] Performed By: #### 2 1576, 1987-, 19651-5 #### [facility] CLIA [id number] [place] [address] [place] Albumin [Mass/Vol] 4.5 g/dL 3.9 - 4.9 g/dL [facility] ALP [Catalytic activity/Vol] 46 U/L 34 - 123 U/L [facility] ALT [Catalytic activity/Vol] 46 U/L High 7 - 38 U/L [facility] Anion gap [Moles/Vol] 8 mmol/L Low 9 - 18 mmol/L [facility] AST [Catalytic activity/Vol] 39 U/L High 13 - 35 U/L [facility] Bilirubin [Mass/Vol] 1.2 mg/dL 0.2 - 1.3 mg/dL [facility] Calcium [Mass/Vol] 9.5 mg/dL 8.5 - 10. 2 mg/dL [facility] Chloride [Moles/Vol] 105 mmol/L 97 - 105 mmol/L [facility] CO2 [Moles/Vol] 27 mmol/L 22 - 30 mmol/L [facility] Creatinine [Mass/Vol] 1.10 mg/dL High 0.58 - 0.96 mg/dL [facility] Estimated Glomerular Filtration Rate 62 mL/min/1.73m >=60 mL/min/1.73m [facility] Glucose [Mass/Vol] 94 mg/dL 74 - 99 mg/dL [facility] Potassium [Moles/Vol] 4.2 mmol/L 3.7 - 5.1 mmol/L [facility] Protein [Mass/Vol] 7.3 g/dL 6.3 - 8.0 g/dL [facility] Sodium [Moles/Vol] 140 mmol/L 136 - 144 mmol/L [facility] Urea nitrogen [Mass/Vol] 12 mg/dL 7 - 21 mg/dL [facility] ESR Westergren method (Bld) [Velocity]on 06-24-2023 ESR (Bld) [Velocity] 23 mm/h High 0 - 20 mm/hr [facility] ESR (Bld) [Velocity] 23 mm/h High 0-20 [facility] Comment on above: Order Comment: Speci men Type: BLOOD SPECIMEN Ordering Facility: [facility] Address: [address] [place], [place] [address] [address] Performed By: #### 2 157-6, 1988-5, 96196-0 #### [facility] CLIA [id number] [place] [address] [place] No Panel Informationon 06-24 [facility] XR LUMBAR 3V AP/LAT/L5-S1on 06-24-2023 XR LUMBAR 3V AP/LAT/L5-S1 * * *Final Report* * * DATE OF EXAM: Jun 24 2023 12:48PM VHX [id number] - XR LUMBAR 3V AP/LAT/L5-S1 / PROCEDURE REASON: Pain in joint, multiple sites * * * * Physician Interpretation * * * * HISTORY: Pain in joint, multiple sites TECHNOLOGIST PROVIDED HISTORY (if applicable): CHRONIC LOW BACK PAIN AND BILATERAL HIP/GROIN PAIN NO INJURY TECHNIQUE: XR LUMBAR 3V AP/LAT/L5-S1 RESULT: Lumbar spine 3 views, compared with 02/28/2019. Counting reference: Lumbosacral junction. For the purposes of this report, L5-S1 is considered the most caudal well formed disc space. Levocurvature centered at the thoracolumbar junction is again seen. The lordosis is preserved. There is no subluxation or compression. Minimal disc space narrowing and osteophyte formation is seen at the L3-4 level similar to prior. Other disc heights are maintained. Sacroiliac joints are symmetrically preserved. Visualized hips are preserved. RIGHT upper quadrant surgical clips are again seen. IMPRESSION: MILD DEGENERATIVE CHANGES AND LEVOSCOLIOSIS SIMILAR TO PRIOR. Seam Closer: PSCB Transcribe Date/Time: Jun 24 2023 1:12P Dictated by : BRADY FELDMAN MD This examination was interpreted and the report reviewed and electronically signed by: BRADY FELDMAN MD on Jun 24 2023 1:14PM EST [id number] Normal [facility] Mary 05-12-2023 STACIAN Telephone ([employer]) LYNETTE HAIRSTON ([id number]) 1975 F Date Time Provider Department 05/12/23 NOEMI PHAM During your visit today, we recorded the following information about you: Refugio Mosqueda 05/12/2023 1:20 PM Signed Ashwini from [facility] is calling Noemi Pham MD today to clarify medication. When they were filling the enbrel, it flagged that the patient has a thrombocytopenia diagnosis. They need to clarify that the provider is aware. They cannot send the medication until they get that clarification. [phone] Patient has been identified by name and birthdate. Duration of symptoms: N/A Person calling: pharmacy: [facility] Call patient at: on cell [phone] (home) [phone] (cell) Was an appointment scheduled: No Closing statement: Results or non-symptom based questions: Thank you for calling [facility], your call will be returned within the next business day. Refugio Mosqueda Allison York [facility] 05/12/2023 1:29 PM Signed Faxed [facility], patient is no longer on medication Jonelle Flores Ma 05/19/2023 9:12 AM Signed Patient calling back. States she is on Enbrel. She takes it once a week and has not had it in about 2 weeks. She is starting to get pain. She is no longer on Plaquenil. Asking for the office to call [facility] to get this straightened out. She only had low platelets when she had covid. Please advise Inocencia Bui LPN 05/19/2023 9:58 AM Signed Order pended for Enbrel refill. Did call [facility] to verify medication is ok to refill. Most recent Rheumatology visit: 01/14/2023 (with Noemi Pham) Recent Office Visits - This Specialty 01/14/2023 Zack foreman Rheumatology Noemi Pham MD 08/11/2022 Rheumatoid arthritis involving multiple sites, unspecified whether rheumatoid factor present (HCC) Rheumatology Noemi Pham MD 08/19/2021 Rheumatoid arthritis of multiple sites with negative rheumatoid factor (HCC) Rheumatology Noemi Pham MD Upcoming Rheumatology Appointments - Next 365 Days Visit Type Date Time Department [facility] MEDICAL 06/24/2023 11:20 AM [facility] REJ Last Ophthalmology Check for Plaquenil (Hydroxychloroquine) Last OCT Macula Exam No resulted procedures found. Last Visual Field Exam No resulted procedures found. CBC: None on file in the last 6 months Vitamin D: None on file in the last 6 months LFT: None on file in the last 6 months Hepatic Function: Creatinine: None on file in the last 6 months ESR/CRP: ESR, WSR Latest Ref Rng AND Units 08/11/2022 01/14/2023 WSR 0 - 20 mm/hr 23(H) 16 CRP Latest Ref Rng AND Units 08/11/2022 01/14/2023 CRP <0.9 mg/dL 0.8 0.6 Uric Acid: None on file in the last 6 months Open Standing (Multiple Instance) Lab Orders None Open Future (Single Instance) Lab Orders None Inocencia Bui LPN 05/19/2023 9:58 AM Signed Addended by: INOCENCIA BUI LPN on: 05/19/2023 09:58 AM Modules accepted: Orders Inocencia Bui LPN 05/19/2023 10:06 AM Signed Spoke with patient. [facility] had held medication due to dx of thrombocytopenia. I spoke with [facility] and informed them patient was cleared from thrombocytopenia and ok to continue medication. Order pended for refills. Noemi Pham MD 05/19/2023 1:10 PM Signed The following approved medication requests have been transmitted electronically. Requested Prescriptions Signed Prescriptions Disp Refills Etanercept (ENBREL) 50 mg/mL (1 mL) injection 12 mL 1 Sig: Inject 50mg sq qwkly Authorizing Provider: NOEMI PHAM MD Mathai, Susan P, MD 05/19/2023 1:10 PM Signed Addended by: NOEMI PHAM on: 05/19/2023 01:10 PM Modules accepted: Orders Allergies As of Date: 05/12/2023 Noted Allergy Reaction MELOXICAM 11/23/2016 4 - Hives Comments: METHOTREXATE 12/25/2014 8 - GI Upset Date Reviewed: 01/14/2023 Reviewed by: Rice, Minna, RN - Fully Assessed Reason for Visit: Medication Problem [65] Primary Visit Diagnosis:Seropositive rheumatoid arthritis of multiple sites (HCC) [M05.79] Order(s):Etanercept (ENBREL) 50 mg/mL (1 mL) injectionInject 50mg sq qwklyDisp: 12 mLRfl: 1 Prescriptions as of 05/19/2023 - Etanercept (ENBREL) 50 mg/mL (1 mL) injection Inject 50mg sq qwkly - hydrOXYchloroQUINE (PLAQUENIL) 200 mg tablet TAKE 1 TABLET BY MOUTH TWICE A DAY - metaxalone (SKELAXIN) 800 mg tablet TAKE 1/2 TABLET BY MOUTH TWICE A DAY NEEDED - predniSONE (DELTASONE) 5 mg tablet Take 2 to 3 tabs po qd - ondansetron (ZOFRAN) 4 mg tablet TAKE 1 TABLET BY MOUTH EVERY 12 HOURS NEEDED - methylPREDNISolone (MEDROL, MARYBEL,) 4 mg Dose-Pack As Instructed per package - magnesium oxide (MAG-OX) 400 mg (241.3 mg magnesium) tablet Take 1 tablet by mouth twice daily. - levothyroxine (SYNTHROID) 50 mcg tablet Take 50 mcg by mouth once daily. - metoprolol tartrate, short acting, (LOPR (more content not included)... Normal [facility] Miscellaneouson 03-24-2023 Send Out Report Normal [facility] Comment on above: Result Comment: PERF ORMED AT [facility] [address] [place] [phone] (NOTE) Fat, Fecal Quantitative 72-Hour Collection (Includes Homogenization) [facility] test code [id number] Fat, Fecal Quantitative 72-Hour 4.2 g/d (Ref Interval: 0.0-6.0) INTERPRETIVE INFORMATION: Fat, Fecal Quantitative 72-Hour Collection Access complete set of age- and/or gender-specific reference intervals for this test in the [facility] Laboratory Test Directory ([place]). This test was developed and its performance characteristics determined by [facility]. It has not been cleared or approved by the US Food and Drug Administration. This test was performed in a CLIA certified laboratory and is intended for clinical purposes. - - - - - - - - - - - - - - - - - - - - - - - - - - - - - - Fecal Total Weight 672 g Performed By: #### C MIS #### [facility] [address] [place] [address] Lieutenant Colonel: Richie Alexis DO Miscellaneouson 03-22-2023 Test Name 72 Normal [facility] Comment on above: Performed By: #### C MIS #### [facility] [address] [place] [address] Lieutenant Colonel: Richie Alexis DO CNPNon 03-09-2023 CNPN Telephone ([facility]) LYNETTE HAIRSTON ([id number]) 1975 F Date Time Provider Department 03/09/23 NOEMI PHAM During your visit today, we recorded the following information about you: Noemi Pham MD 03/09/2023 1:38 PM Signed She can continue on the plaquenil bid, eye exam reviewed, no toxicity noted. MD Rosa Lopez Jennifer LPN 03/09/2023 1:59 PM Signed Patient stopped taking the Plaquenil d/t skin rash. Provider aware. Allergies As of Date: 03/09/2023 Noted Allergy Reaction MELOXICAM 11/23/2016 4 - Hives Comments: METHOTREXATE 12/25/2014 8 - GI Upset Date Reviewed: 01/14/2023 Reviewed by: Minna Mckinney, BANDAR - Fully Assessed Prescriptions as of 03/09/2023 - hydrOXYchloroQUINE (PLAQUENIL) 200 mg tablet TAKE 1 TABLET BY MOUTH TWICE A DAY - metaxalone (SKELAXIN) 800 mg tablet TAKE 1/2 TABLET BY MOUTH TWICE A DAY NEEDED - predniSONE (DELTASONE) 5 mg tablet Take 2 to 3 tabs po qd - ondansetron (ZOFRAN) 4 mg tablet TAKE 1 TABLET BY MOUTH EVERY 12 HOURS NEEDED - methylPREDNISolone (MEDROL, MARYBEL,) 4 mg Dose-Pack As Instructed per package - magnesium oxide (MAG-OX) 400 mg (241.3 mg magnesium) tablet Take 1 tablet by mouth twice daily. - levothyroxine (SYNTHROID) 50 mcg tablet Take 50 mcg by mouth once daily. - metoprolol tartrate, short acting, (LOPRESSOR) 25 mg tablet Take 12.5 mg by mouth once daily. - omeprazole (PRILOSEC) 40 mg capsule Take 40 mg by mouth once daily. - topiramate (TOPAMAX) 100 mg tablet Take 100 mg by mouth daily at bedtime. - ibuprofen (MOTRIN) 800 mg tablet Take 800 mg by mouth as needed. - semaglutide, weight loss, (WEGOVY) 0.25 mg/0.5 mL pen injector Inject 0.25 mg subcutaneously one time a week. - ARIPiprazole (ABILIFY) 2 mg tablet Take 2 mg by mouth once daily. - busPIRone (BUSPAR) 10 mg tablet Take 10 mg by mouth three times daily. - COMPOUNDED PRESCRIPTION Handicapped placard Diagnosis- RA Cannot walk >200 ft Duration- 3 yrs - sertraline (ZOLOFT) 100 mg tablet Take 100 mg by mouth once daily. Problem List As Of Date 03/09/2023 Noted Resolved Obesity, Class I, BMI 30-34.9 [E66.9] 10/30/2018 Fatigue [R53.83] 11/05/2018 Sleep disturbances [G47.9] 11/05/2018 Transient diplopia [H53.2] 11/05/2018 Daytime sleepiness [R40.0] 11/05/2018 Vitamin D deficiency [E55.9] 11/05/2018 Myalgia [M79.10] 11/05/2018 Benign fasciculations [R25.3] 11/05/2018 Myofascial pain dysfunction syndrome [M79.18] 03/25/2021 Intractable migraine equivalent [G43.119] 03/25/2021 Muscle twitching [R25.3] 03/25/2021 Non-restorative sleep [G47.8] 03/25/2021 MARINE (obstructive sleep apnea) [G47.33] 03/25/2021 History of vitamin D deficiency [Z86.39] 03/25/2021 History of hypothyroidism [Z86.39] 03/25/2021 Joint swelling [M25.40] 01/04/2023 Polyarthralgia [M25.50] 01/04/2023 Recent skin changes [R23.9] 01/04/2023 Encounter Status:Closed by JUD HESS LPN on 03/09/23 [facility] 01-28-2023 CNPN Telephone ([facility]) LYNETTE HAIRSTON ([id number]) 1975 F Date Time Provider Department 01/28/23 NOEMI PHAM During your visit today, we recorded the following information about you: Abby Nassar 01/28/2023 10:42 AM Signed Patient would like a copy of the lab order(s) you wish for her to have done mailed to her. She's going to have this done at a facility closer to her. Please print and sign and mail to her. Brianda Palomares LPN 01/31/2023 12:27 PM Signed Lab order mailed to patient per request. Francis Ellis 02/03/2023 12:37 PM Signed Patient called and stated she wanted information faxed to her. She is wondering if this can also be faxed to her she asked for it to be faxed before 430 as that is the time she leaves from work. Jud Hess LPN 02/03/2023 2:30 PM Signed Lab req faxed to number provided per patient request. Allergies As of Date: 01/28/2023 Noted Allergy Reaction MELOXICAM 11/23/2016 4 - Hives Comments: METHOTREXATE 12/25/2014 8 - GI Upset Date Reviewed: 01/14/2023 Reviewed by: Minna Mckinney RN - Fully Assessed Reason for Visit: Orders [681] Prescriptions as of 02/03/2023 - metaxalone (SKELAXIN) 800 mg tablet TAKE 1/2 TABLET BY MOUTH TWICE A DAY NEEDED - hydrOXYchloroQUINE (PLAQUENIL) 200 mg tablet TAKE 1 TABLET BY MOUTH TWICE A DAY - predniSONE (DELTASONE) 5 mg tablet Take 2 to 3 tabs po qd - ondansetron (ZOFRAN) 4 mg tablet TAKE 1 TABLET BY MOUTH EVERY 12 HOURS NEEDED - methylPREDNISolone (MEDROL, MARYBEL,) 4 mg Dose-Pack As Instructed per package - magnesium oxide (MAG-OX) 400 mg (241.3 mg magnesium) tablet Take 1 tablet by mouth twice daily. - levothyroxine (SYNTHROID) 50 mcg tablet Take 50 mcg by mouth once daily. - metoprolol tartrate, short acting, (LOPRESSOR) 25 mg tablet Take 12.5 mg by mouth once daily. - omeprazole (PRILOSEC) 40 mg capsule Take 40 mg by mouth once daily. - topiramate (TOPAMAX) 100 mg tablet Take 100 mg by mouth daily at bedtime. - ibuprofen (MOTRIN) 800 mg tablet Take 800 mg by mouth as needed. - semaglutide, weight loss, (WEGOVY) 0.25 mg/0.5 mL pen injector Inject 0.25 mg subcutaneously one time a week. - ARIPiprazole (ABILIFY) 2 mg tablet Take 2 mg by mouth once daily. - busPIRone (BUSPAR) 10 mg tablet Take 10 mg by mouth three times daily. - COMPOUNDED PRESCRIPTION Handicapped placard Diagnosis- RA Cannot walk >200 ft Duration- 3 yrs - sertraline (ZOLOFT) 100 mg tablet Take 100 mg by mouth once daily. Problem List As Of Date 01/28/2023 Noted Resolved Obesity, Class I, BMI 30-34.9 [E66.9] 10/30/2018 Fatigue [R53.83] 11/05/2018 Sleep disturbances [G47.9] 11/05/2018 Transient diplopia [H53.2] 11/05/2018 Daytime sleepiness [R40.0] 11/05/2018 Vitamin D deficiency [E55.9] 11/05/2018 Myalgia [M79.10] 11/05/2018 Benign fasciculations [R25.3] 11/05/2018 Myofascial pain dysfunction syndrome [M79.18] 03/25/2021 Intractable migraine equivalent [G43.119] 03/25/2021 Muscle twitching [R25.3] 03/25/2021 Non-restorative sleep [G47.8] 03/25/2021 MARINE (obstructive sleep apnea) [G47.33] 03/25/2021 History of vitamin D deficiency [Z86.39] 03/25/2021 History of hypothyroidism [Z86.39] 03/25/2021 Joint swelling [M25.40] 01/04/2023 Polyarthralgia [M25.50] 01/04/2023 Recent skin changes [R23.9] 01/04/2023 Encounter Status:Closed by BRIANDA PALOMARES on 01/31/23 [facility] 01-26-2023 CNPN Telephone ([facility]) LYNETTE HAIRSTON ([id number]) 1975 F Date Time Provider Department 01/26/23 NOEMI PHAM During your visit today, we recorded the following information about you: Gris Warner RN 01/26/2023 8:38 AM Signed The pt is calling regarding her lab results. She is currently holding her Enbrel because you thought she may have medication induced Lupus. She thought you were going to order the Anti LEVY ID (ENAID) but it was not on the lest of meds that were drawn. Do you still want her to have it drawn? If so, will you please mail the signed order with a return fax number for the results to her home, The address in the system is correct. She doesn't think she can restart the Enbrel until she gets the result of this test. You may call and leave a message to let her know what you are going to do at the number listed in contacts. Thank you. Noemi Pham MD 01/26/2023 11:13 AM Signed Message sent on [employer] regarding this . Noemi Pham MD Allergies As of Date: 01/26/2023 Noted Allergy Reaction MELOXICAM 11/23/2016 4 - Hives Comments: METHOTREXATE 12/25/2014 8 - GI Upset Date Reviewed: 01/14/2023 Reviewed by: Minna Mckinney RN - Fully Assessed Reason for Visit: Orders [681] Prescriptions as of 01/26/2023 - metaxalone (SKELAXIN) 800 mg tablet TAKE 1/2 TABLET BY MOUTH TWICE A DAY NEEDED - hydrOXYchloroQUINE (PLAQUENIL) 200 mg tablet TAKE 1 TABLET BY MOUTH TWICE A DAY - predniSONE (DELTASONE) 5 mg tablet Take 2 to 3 tabs po qd - ondansetron (ZOFRAN) 4 mg tablet TAKE 1 TABLET BY MOUTH EVERY 12 HOURS NEEDED - methylPREDNISolone (MEDROL, MARYBEL,) 4 mg Dose-Pack As Instructed per package - magnesium oxide (MAG-OX) 400 mg (241.3 mg magnesium) tablet Take 1 tablet by mouth twice daily. - levothyroxine (SYNTHROID) 50 mcg tablet Take 50 mcg by mouth once daily. - metoprolol tartrate, short acting, (LOPRESSOR) 25 mg tablet Take 12.5 mg by mouth once daily. - omeprazole (PRILOSEC) 40 mg capsule Take 40 mg by mouth once daily. - topiramate (TOPAMAX) 100 mg tablet Take 100 mg by mouth daily at bedtime. - ibuprofen (MOTRIN) 800 mg tablet Take 800 mg by mouth as needed. - semaglutide, weight loss, (WEGOVY) 0.25 mg/0.5 mL pen injector Inject 0.25 mg subcutaneously one time a week. - ARIPiprazole (ABILIFY) 2 mg tablet Take 2 mg by mouth once daily. - busPIRone (BUSPAR) 10 mg tablet Take 10 mg by mouth three times daily. - COMPOUNDED PRESCRIPTION Handicapped placard Diagnosis- RA Cannot walk >200 ft Duration- 3 yrs - sertraline (ZOLOFT) 100 mg tablet Take 100 mg by mouth once daily. Problem List As Of Date 01/26/2023 Noted Resolved Obesity, Class I, BMI 30-34.9 [E66.9] 10/30/2018 Fatigue [R53.83] 11/05/2018 Sleep disturbances [G47.9] 11/05/2018 Transient diplopia [H53.2] 11/05/2018 Daytime sleepiness [R40.0] 11/05/2018 Vitamin D deficiency [E55.9] 11/05/2018 Myalgia [M79.10] 11/05/2018 Benign fasciculations [R25.3] 11/05/2018 Myofascial pain dysfunction syndrome [M79.18] 03/25/2021 Intractable migraine equivalent [G43.119] 03/25/2021 Muscle twitching [R25.3] 03/25/2021 Non-restorative sleep [G47.8] 03/25/2021 MARINE (obstructive sleep apnea) [G47.33] 03/25/2021 History of vitamin D deficiency [Z86.39] 03/25/2021 History of hypothyroidism [Z86.39] 03/25/2021 Joint swelling [M25.40] 01/04/2023 Polyarthralgia [M25.50] 01/04/2023 Recent skin changes [R23.9] 01/04/2023 Encounter Status:Closed by NOEMI PHAM on 01/26/23 Normal [facility] ANURAG BY IFA WITH REFLEXon Nuclear Ab IF (S) [Titer] Negative Normal Negative [facility] Comment on above: Order Comment: Speci men Type: BLOOD SPECIMEN Ordering Facility: [facility] Address: [address] [place] [address] Result Comment: Anti -nuclear antibody test is used as an aid in diagnosis of systemic autoimmune diseases. Where positive and clinically warranted, follow-up using disease-specific testing is recommended. Low positive titers are not uncommon with advanced age, certain chronic infections, and malignancies among others. Test methodology: Indirect fluorescence immunoassay (IFA) using HEp-2 cells. Performed By: #### 1 761-6 #### [facility] CLIA [id number] [facility] [address] [place] Aldolase SerPl-cCncon 2022 Aldolase [Catalytic activity/Vol] 8.8 mU/mL High 1.5-8.1 [facility] Comment on above: Order Comment: [place] Type: BLOOD SPECIMEN Ordering Facility: [facility] Address: [address] [place] [id number] Result Comment: This test was developed and its performance characteristics determined by [facility] Lele Shook [facility] [place] ([facility] It has not been cleared or approved by the FDA. -[facility] is regulated under CLIA as qualified to perform high-complexity testing. This test is used for clinical purposes. It should not be regarded as investigational or for research. Performed By: #### 1 761-6 #### [facility] CLIA [id number] [address] [place] [address] [place] CK SerPl-cCncon 01-14-2023 CK [Catalytic activity/Vol] 110 U/L Normal 42-196 [facility] Comment on above: Order Comment: [place] Type: BLOOD SPECIMEN Ordering Facility: [facility] Address: [address] [place] [phone] Performed By: #### 1 761-6 #### [facility] CLIA [id number] [address] [place] [address] [place] CNOVon 01-14-2023 CNOV Office Visit (HYUN ) LYNETTE HAIRSTON ([id number]) 1975 F Date Time Provider Department 01/14/23 11:00 AM NOEMI PHAM During your visit today, we recorded the following information about you: Pulse Blood pressure Weight Height 103/minute 122/81 105.7 kg 1.676 m Noemi Pham MD 01/24/2023 10:36 AM Signed Lynette Meade Crescencio is a 41 year old female who presents for follow up: LABS RF+, elevated aldolase levels,slightly increased sed rate and crp EMG of rt upper and lower extremities- normal PREVIOUS DIAG myalgias- h/o FM - diagnosed in 2009, chronic back pain RA and 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- elevated aldolase and complaints of weakness pleurisy gastropresis Thoracic Outlet syndrome INTERVAL HISTORY since last visit,notes new onset of malar rash of face with swelling of face Joints are stiff and swollen Ankles and feet are stiff and swollen Tops of both thighs painful Sitffness getting worse No rash, ulcers, fevers, swollen lymph nodes, DVT/PE, raynauds, sicca symptoms, trouble swallowing, back pain, red eyes, Chron's/UC or Psoriasis. MEDS/THERAPIES TRIED: Plaquenil MTX- GI side effects Tied mobic- but caused hives Magnesium- for cramps, feels it has helped her migraines neurontin - did not help Imuran- never started Skelaxin - did not help Norflex- did not help Flexeril - ''knocks me out'' Enbrel - started on 11/11- feels it is helping Currently on Enbrel and plaquenil bid REVIEW OF SYSTEMS PAST MEDICAL HISTORY Diagnosis Date Fibromyalgia Hypothyroidism Migraines POTS (postural orthostatic tachycardia syndrome) Rheumatoid arthritis (HCC) No past surgical history on file. metaxalone (SKELAXIN) 800 mg tablet TAKE 1/2 TABLET BY MOUTH TWICE A DAY NEEDED hydrOXYchloroQUINE (PLAQUENIL) 200 mg tablet TAKE 1 TABLET BY MOUTH TWICE A DAY predniSONE (DELTASONE) 5 mg tablet Take 2 to 3 tabs po qd ondansetron (ZOFRAN) 4 mg tablet TAKE 1 TABLET BY MOUTH EVERY 12 HOURS NEEDED Etanercept (ENBREL) 50 mg/mL (1 mL) injection Inject 50mg sq qwkly magnesium oxide (MAG-OX) 400 mg (241.3 mg magnesium) tablet Take 1 tablet by mouth twice daily. levothyroxine (SYNTHROID) 50 mcg tablet Take 50 mcg by mouth once daily. metoprolol tartrate, short acting, (LOPRESSOR) 25 mg tablet Take 12.5 mg by mouth once daily. omeprazole (PRILOSEC) 40 mg capsule Take 40 mg by mouth once daily. topiramate (TOPAMAX) 100 mg tablet Take 100 mg by mouth daily at bedtime. ibuprofen (MOTRIN) 800 mg tablet Take 800 mg by mouth as needed. semaglutide, weight loss, (WEGOVY) 0.25 mg/0.5 mL pen injector Inject 0.25 mg subcutaneously one time a week. ARIPiprazole (ABILIFY) 2 mg tablet Take 2 mg by mouth once daily. busPIRone (BUSPAR) 10 mg tablet Take 10 mg by mouth three times daily. COMPOUNDED PRESCRIPTION Handicapped placard Diagnosis- RA Cannot walk >200 ft Duration- 3 yrs sertraline (ZOLOFT) 100 mg tablet Take 100 mg by mouth once daily. methylPREDNISolone (MEDROL, MARYBEL,) 4 mg Dose-Pack As Instructed per package (Patient not taking: Reported on 01/14/2023) No family history on file. Social History Tobacco Use Smoking status: Never Smokeless tobacco: Never Substance Use Topics Alcohol use: Yes Comment: Occasional Drug use: Never BP 122/81 Pulse 103 Ht 167.6 cm (5' 6 ) Wt 105.7 kg (233 lb) BMI 37.61 kg/m? PE; ambulates well, pelasent mood Appears to be in no distress, very pleasant Pain on palpation of all joints No synovitis noted MOST RECENT LABS: REVIEWED WITH PATIENT IMP/PLAN: RA/FM- Since last visit eval by neurology for myopthay and none found Patient concerned about new malar rash and worsening joint pain -will stop Enbrel for possible drug induced SLE -check labs for drug induced lupus -continue plaquenil -will give her depomedrol 80mg im today for acute joint pain - F/U in 6m Noemi Pham MD F/U: 6m Check following: -none MD Andrea Lopez LPN 01/14/2023 11:48 AM Signed Verified 80mg depomedrol injection with Paty Mckinney LPN. Allergies As of Date: 01/14/2023 Noted Allergy Reaction MELOXICAM 11/23/2016 4 - Hives Comments: METHOTREXATE 12/25/2014 8 - GI Upset Date Reviewed: 01/14/2023 Reviewed by: Minna Mckinney RN - Fully Assessed Reason for Visit: Follow Up [171] Primary Visit Diagnosis:Malar rash [R21] Order(s):HISTONE IGG LAUREANO [SQHISTN] Order #: [id number] FUTURE ANURAG BY IFA WITH REFLEX [SQANAIFR] Order #: [id number] FUTURE ANURAG BLOOD [SQANAS] Order #: [id number] FUTURE ANTI LEVY ID [SQENAID] Order #: [id number] FUTURE SED RATE WESTERGREN [SQWSR] Order #: [id number] FUTURE C-REACTIVE PROTEIN (CRP) [SQCRP] Order #: [id number] FUTURE RHEUMATOID FACTOR BL [SQRF] Order #: [id number] FUTURE CK CREATINE KINASE [SQCK] Order #: [id number] FUTURE ALDOLASE BLD [SQALD] Order #: [id number] FUTURE [] methylPREDN (more content not included)... Normal [facility] CRP SerPl-mCncon 01-14-2023 CRP [Mass/Vol] 0.6 mg/dL Normal <0.9 [facility] Comment on above: Order Comment: Speci men Type: BLOOD SPECIMEN Ordering Facility: [facility] Address: [address] [place] [address] Performed By: #### 2 157-6, 1987-, 46315-3 #### [facility] CLIA [id number] [place] [address] [place] ESR Westergren method (Bld) [Velocity]on 01-14-2023 ESR (Bld) [Velocity] 16 mm/h Normal 0-20 [facility] Comment on above: Order Comment: Speci men Type: BLOOD SPECIMEN Ordering Facility: [facility] Address: [address] [place] [address] Performed By: #### 1 761-6 #### [facility] CLIA [id number] [address] [place], [place] [address] [place] [address] [place] HISTONE IGG ABYon 01-14-2023 HISTONE 0.1 Units Normal <1.0 [facility] Comment on above: Order Comment: Speci men Type: BLOOD SPECIMEN Ordering Facility: [facility] Address: [address] [place] [address] Performed By: #### 1 761-6 #### [facility] CLIA [id number] [address] [place] [address] [place] HISTONE IGG QUALITATIVE Negative Normal [facility] Comment on above: Order Comment: [place] Type: BLOOD SPECIMEN Ordering Facility: [facility] Address: [address] [place] [address] Result Comment: Anti -histone IgG antibody test is used as an aid in diagnosis of idiopathic and drug-induced systemic lupus erythematosus. It may be positive in other systemic autoimmune diseases. Clinical Correlation is required. Anti-histone IgG antibody test is used as an aid in diagnosis of idiopathic and drug-induced systemic lupus erythematosus. It may be positive in other systemic autoimmune diseases. Clinical Correlation is required. Performed By: #### 1 761-6 #### [facility] IA [id number] [address] [place] [address] [place] Nuclear Ab IA Ql (S)on 01-14 ANURAG SCR QUAL Negative Normal Negative [facility] Comment on above: Order Comment: [place] Type: BLOOD SPECIMEN Ordering Facility: [facility] Address: [address] [place] [address] Result Comment: The qualitative antinuclear antibody screen test performed using the following antigens: dsDNA, Chromatin, Ribosomal P, SS-A 60, SS-A 52, SS-B, Sm, SmRNP, DRAFTER TOOL DESIGN A, DRAFTER TOOL DESIGN 68, Scl-70, Odalis-1, and Centromere B. Methodology: Multiplex flow immunoassay. Performed By: #### 1 761-6 #### [facility] [facility] IA [id number] [address] [place] [address] [place] Rheumatoid fact SerPl-aCncon 01-14-2023 Rheumatoid factor Qn [IU]/mL High <16 [facility] Comment on above: Order Comment: Mert del valle Type: BLOOD SPECIMEN Ordering Facility: [facility] Address: [address] [place] [address] Performed By: #### 1 1572-5 #### [facility] CLIA [id number] [address] [place] [address] [place] CNOVon 12-24-2022 CNOV Office Visit (NENMMN ) LYNETTE HAIRSTON ([id number]) 1975 F Date Time Provider Department 12/24/22 1:00 PM LIZ CONNOLLY During your visit today, we recorded the following information about you: Pulse Blood pressure 106/minute 121/84 Liz Connolly MD 01/04/2023 10:43 AM Signed S90 [facility] [place] [facility] Note- Established patient Provider: Liz Connolly MD Date of last clinic visit: 03/25/2021 History Since Last Evaluation: Here for follow-up evaluation of diffuse/multifocal myalgias (previous suspicion for myofascial pain dysfunction syndrome). Active issues: Since LCV, she describes having interval progression of previously elaborated symptoms constellation including exertion-triggered myalgias, muscle tightness, generalized fatigue. Predominant myalgic areas include back, neck, but also describing intermixed arthralgic symptoms at the ankles, at the wrist and fingers (including tendency for fingers to swell to the point where she has difficulty removing her rings that are normally loose over the past year or so). The collection of myalgic/polyarthralgia pain symptoms average ~5/10 in intensity. 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 The patient also describes a tendency for marked pain in both feet- aching quality that seems to be significantly worse when on her feet, even if she is wearing well cushioned shoes like tennis shoes. 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 She says that her daughter was diagnosed with lupus last year (while in her 20s) and is now on rituximab, and the patient has concerns that she may be having similar features, including a new tendency to have a facial rash mostly over her cheeks, especially when sun-exposed (shows a picture of this on her phone). These skin changes tend to occur every 1 to 2 months, and has been a new feature over the past year or so. Ongoing/worsening snoring appears to be occurring (as reported by her ), together with the generalized fatigue/daytime hypersomnolence and unrefreshed feeling even after sleep, as previously indicated. Unfortunately, she was not able to follow-up with her local sleep medicine provider, despite not being able to be adherent with CPAP for MARINE (previously diagnosed at moderate degree), especially since the mask seems to slip off her face when she side-sleeps. There is also been weight gain since [facility] (going from 223 pounds to about 235 pounds), stating that she carries a diagnosis of prediabetes and was told that she has insulin resistance with acanthosis nigricans. She had seen Dr. Pham last in 07/2022, with lab work been redemonstrating a similarly slightly elevated level of aldolase, CK is normal. She had these labs repeated locally on 11/05/2022, and both were in the normal range (detailed below). Meds and allergies as listed (below and above, respectively) Current Outpatient Medications Medication Sig Metaxalone 400 mg tab One tab po bid prn hydrOXYchloroQUINE (PLAQUENIL) 200 mg tablet TAKE 1 TABLET BY MOUTH TWICE A DAY predniSONE (DELTASONE) 5 mg tablet Take 2 to 3 tabs po qd ondansetron (ZOFRAN) 4 mg tablet TAKE 1 TABLET BY MOUTH EVERY 12 HOURS NEEDED methylPREDNISolone (MEDROL, MARYBEL,) 4 mg Dose-Pack As Instructed per package Etanercept (ENBREL) 50 mg/mL (1 mL) injection Inject 50mg sq qwkly magnesium oxide (MAG-OX) 400 mg (241.3 mg magnesium) tablet Take 1 tablet by mouth twice daily. levothyroxine (SYNTHROID) 50 mcg tablet Take 50 mcg by mouth once daily. metoprolol tartrate, short acting, (LOPRESSOR) 25 mg tablet Take 12.5 mg by mouth once daily. omeprazole (PRILOSEC) 40 mg capsule Take 40 mg by mouth once daily. topiramate (TOPAMAX) 100 mg tablet Take 100 mg by mouth daily at bedtime. ibuprofen (MOTRIN) 800 mg tablet Take 800 mg by mouth as needed. semaglutide, weight loss, (WEGOVY) 0.25 mg/0.5 mL pen injector Inject 0.25 mg subcutaneously one time a week. ARIPiprazole (ABILIFY) 2 mg tablet Take 2 mg by mouth once daily. busPIRone (BUSPAR) 10 mg tablet Take 10 mg by mouth three times daily. COMPOUNDED PRESCRIPTION Handicapped placard Diagnosis- RA Cannot walk >200 ft Duration- 3 yrs sertraline (ZOLOFT) 100 mg tablet Take 100 mg by mouth once daily. No current facility-administ (more content not included)... Normal [facility] EMG(NEURO/NI)on 12-24-2022 [facility] Surgical Pathologyon 023 Surgical Pathology (NOTE) Path Number: [id number] -- Diagnosis -- Colon, random biopsies: Normal colonic mucosa. Deshaun Mcneil Electronically Signed Out rdd/12/21/2022 Clinical Information Pre-Op Diagnosis: ENCOPRESIS WITHOUT CONSTIPATION AND OVERFLOW INCONTINENCE Operative Findings: RANDOM COLON BIOPSIES TO CHECK FOR MICROSCOPIC COLITIS Operation Performed: COLONOSCOPY WITH BIOPSY cd Source of Specimen A: RANDOM COLON BXS TO CHECK FOR MICROSCOPIC COLITIS Gross Description LYNETTE FRANTZ RANDOM COLON BIOPSIES Received in formalin are multiple alegria-white tissue fragments from 0.1 to 0.3 cm and are 1.2 x 0.7 x 0.1 cm in aggregate. Entirely 1cs. jj tm Microscopic Description Colonic mucosa shows intact architecture without active inflammation. Chronic inflammatory cells are not increased within the lamina propria and there are only rare intraepithelial leukocytes. There are no granulomas or other focal lesions. Basement membranes are not thickened and there is no lamina propria fibrosis. There is no dysplasia or malignancy. Processing Lab: [facility] [address] [place] [id number] Interpretation Performed at [facility] [address] [place], [place] SURGICAL PATHOLOGY CONSULTATION Patient Name: REFUGIO HAIRSTONDestiny Dong Med Rec: [id number] [facility] CONSULTING PATHOLOGISTS [employer] ANATOMIC PATHOLOGY [address] [facility]. 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 Pending. Allergies As of Date: 12/01/2022 Noted Allergy Reaction MELOXICAM 11/23/2016 4 - Hives Comments: METHOTREXATE 12/25/2014 8 - GI Upset Date Reviewed: 08/11/2022 Reviewed by: Jud Hess LPN - Fully Assessed Reason for Visit: Insurance Authorization [[id number]] Cmt: Enbrel Prescriptions as of 12/01/2022 - Metaxalone 400 mg tab One tab po bid prn - hydrOXYchloroQUINE (PLAQUENIL) 200 mg tablet TAKE 1 TABLET BY MOUTH TWICE A DAY - predniSONE (DELTASONE) 5 mg tablet Take 2 to 3 tabs po qd - ondansetron (ZOFRAN) 4 mg tablet TAKE 1 TABLET BY MOUTH EVERY 12 HOURS NEEDED - methylPREDNISolone (MEDROL, MARYBEL,) 4 mg Dose-Pack As Instructed per package - Etanercept (ENBREL) 50 mg/mL (1 mL) injection Inject 50mg sq qwkly - magnesium oxide (MAG-OX) 400 mg (241.3 mg magnesium) tablet Take 1 tablet by mouth twice daily. - levothyroxine (SYNTHROID) 50 mcg tablet Take 50 mcg by mouth once daily. - metoprolol tartrate, short acting, (LOPRESSOR) 25 mg tablet Take 12.5 mg by mouth once daily. - omeprazole (PRILOSEC) 40 mg capsule Take 40 mg by mouth once daily. - topiramate (TOPAMAX) 100 mg tablet Take 100 mg by mouth daily at bedtime. - ibuprofen (MOTRIN) 800 mg tablet Take 800 mg by mouth as needed. - semaglutide, weight loss, (WEGOVY) 0.25 mg/0.5 mL pen injector Inject 0.25 mg subcutaneously one time a week. - ARIPiprazole (ABILIFY) 2 mg tablet Take 2 mg by mouth once daily. - busPIRone (BUSPAR) 10 mg tablet Take 10 mg by mouth three times daily. - COMPOUNDED PRESCRIPTION Handicapped placard Diagnosis- RA Cannot walk >200 ft Duration- 3 yrs - sertraline (ZOLOFT) 100 mg tablet Take 100 mg by mouth once daily. Problem List As Of Date 12/01/2022 Noted Resolved Obesity, Class I, BMI 30-34.9 [E66.9] 10/30/2018 Fatigue [R53.83] 11/05/2018 Sleep disturbances [G47.9] 11/05/2018 Transient diplopia [H53.2] 11/05/2018 Daytime sleepiness [R40.0] 11/05/2018 Vitamin D deficiency [E55.9] 11/05/2018 Myalgia [M79.10] 11/05/2018 Benign fasciculations [R25.3] 11/05/2018 Myofascial pain dysfunction syndrome [M79.18] 03/25/2021 Intractable migraine equivalent [G43.119] 03/25/2021 Muscle twitching [R25.3] 03/25/2021 Non-restorative sleep [G47.8] 03/25/2021 MARINE (obstructive sleep apnea) [G47.33] 03/25/2021 History of vitamin D deficiency [Z86.39] 03/25/2021 History of hypothyroidism [Z86.39] 03/25/2021 Encounter Status:Closed by INOCENCIA BUI LPN on 12/01/22 Normal [facility] Mary 11-15-2022 STACIAN Telephone (RHEUAV) LYNETTE HAIRSTON ([id number]) 1975 F Date Time Provider Department 11/15/22 NOEMI PHAM During your visit today, we recorded the following information about you: Noemi Pham MD 11/15/2022 1:23 PM Signed Please tell her I received labs from [facility] and her cpk and aldolase returned normal . (CPK was 11 and aldolase 5.0 Noemi Pham MD Allergies As of Date: 11/15/2022 Noted Allergy Reaction MELOXICAM 11/23/2016 4 - Hives Comments: METHOTREXATE 12/25/2014 8 - GI Upset Date Reviewed: 08/11/2022 Reviewed by: Jud Hess LPN - Fully Assessed Reason for Visit: Results [95] Prescriptions as of 11/15/2022 - Metaxalone 400 mg tab One tab po bid prn - hydrOXYchloroQUINE (PLAQUENIL) 200 mg tablet TAKE 1 TABLET BY MOUTH TWICE A DAY - predniSONE (DELTASONE) 5 mg tablet Take 2 to 3 tabs po qd - ondansetron (ZOFRAN) 4 mg tablet TAKE 1 TABLET BY MOUTH EVERY 12 HOURS NEEDED - methylPREDNISolone (MEDROL, MARYBEL,) 4 mg Dose-Pack As Instructed per package - Etanercept (ENBREL) 50 mg/mL (1 mL) injection Inject 50mg sq qwkly - magnesium oxide (MAG-OX) 400 mg (241.3 mg magnesium) tablet Take 1 tablet by mouth twice daily. - levothyroxine (SYNTHROID) 50 mcg tablet Take 50 mcg by mouth once daily. - metoprolol tartrate, short acting, (LOPRESSOR) 25 mg tablet Take 12.5 mg by mouth once daily. - omeprazole (PRILOSEC) 40 mg capsule Take 40 mg by mouth once daily. - topiramate (TOPAMAX) 100 mg tablet Take 100 mg by mouth daily at bedtime. - ibuprofen (MOTRIN) 800 mg tablet Take 800 mg by mouth as needed. - semaglutide, weight loss, (WEGOVY) 0.25 mg/0.5 mL pen injector Inject 0.25 mg subcutaneously one time a week. - ARIPiprazole (ABILIFY) 2 mg tablet Take 2 mg by mouth once daily. - busPIRone (BUSPAR) 10 mg tablet Take 10 mg by mouth three times daily. - COMPOUNDED PRESCRIPTION Handicapped placard Diagnosis- RA Cannot walk >200 ft Duration- 3 yrs - sertraline (ZOLOFT) 100 mg tablet Take 100 mg by mouth once daily. Problem List As Of Date 11/15/2022 Noted Resolved Obesity, Class I, BMI 30-34.9 [E66.9] 10/30/2018 Fatigue [R53.83] 11/05/2018 Sleep disturbances [G47.9] 11/05/2018 Transient diplopia [H53.2] 11/05/2018 Daytime sleepiness [R40.0] 11/05/2018 Vitamin D deficiency [E55.9] 11/05/2018 Myalgia [M79.10] 11/05/2018 Benign fasciculations [R25.3] 11/05/2018 Myofascial pain dysfunction syndrome [M79.18] 03/25/2021 Intractable migraine equivalent [G43.119] 03/25/2021 Muscle twitching [R25.3] 03/25/2021 Non-restorative sleep [G47.8] 03/25/2021 MARINE (obstructive sleep apnea) [G47.33] 03/25/2021 History of vitamin D deficiency [Z86.39] 03/25/2021 History of hypothyroidism [Z86.39] 03/25/2021 Encounter Status:Closed by NOEMI PHAM on 11/15/22 Normal [facility] Orders Onlyon 10-28-2022 Orders Only [id number] Refugio Hairston 1975 F Date Provider Department Center 10/28/2022 137-[facility] MP Medical Pavi Family History Family Status - Relation Status Age at Daughter Notes: pancreatic insuffiency Son Notes: Crohns Normal [facility] Labon 09-08-2022 Lab [id number] Refugio Hairston destiny Meade 1975 F Date Provider Department Center 09/08/2022 2244-[facility] LAB RESOURCE MP DRAW Medical Pavi Family History Family Status - Relation Status Age at Daughter Notes: pancreatic insuffiency Son Notes: Crohns Normal [facility] Office Visiton 09-08-2022 Follow-up visit [id number] Refugio Hairston 1975 F Date Provider Department Center 09/08/2022 137-[facility] MP GI Medical Pavi Family History Family Status - Relation Status Age at Daughter Notes: pancreatic insuffiency Son Notes: Crohns Level of Service:81072 [place] OFFICE/OUTPATIENT ESTABLISHED MOD MDM 30-39 MIN Reason for Visit and Comments: Follow-up [082880] Diarrhea [35] Normal [facility] PANCREATIC ELASTASE, FECALon 09-08-2022 PANCREATIC ELASTASE, FECAL >800 Normal >=100 [facility] Comment on above: Result Comment: REFE RENCE INTERVAL: Pancreatic Elastase Fecal by Immunoassay Less than 100 ug/g............Severe insufficiency 100 - 199 ug/g................Moderate insufficiency 200 ug/g or greater...........Normal INTERPRETIVE INFORMATION: Pancreatic Elastase Fecal by Immunoassay Reference intervals do not apply for infants less than one month old. Performed by [facility], [address] [place] [id number] [email or web address], Vito Arteaga MD, PHD, Lab. Director Performed By: #### L [id number] ####[facility])[address] [place] [address] Aldolase SerPl-cCncon 2022 Aldolase [Catalytic activity/Vol] 9.9 mU/mL High 1.5-8.1 [facility] Comment on above: Order Comment: Speci men Type: BLOOD SPECIMEN Ordering Facility: [facility] Address: [address] [place] [address] [place] [address] Result Comment: This test was developed and its performance characteristics determined by [facility]'s Lele Shook [facility] [place] ([facility]). It has not been cleared or approved by the FDA. -[facility] is regulated under CLIA as qualified to perform high-complexity testing. This test is used for clinical purposes. It should not be regarded as investigational or for research. Performed By: #### 1 761-6 #### [facility] CLIA [id number] [address] OF [place] C-REACTIVE PROTEIN (CRP)on 0 08-11-2022 CRP [Mass/Vol] 0.8 mg/dL <0.9 mg/dL [facility] CBC panel Auto (Bld)on 08-11 Erythrocyte distribution width (RBC) [Ratio] 11.7 % Normal 11.5-15.0 [facility] Comment on above: Order Comment: Speci men Type: BLOOD SPECIMEN Ordering Facility: [facility] Address: [address] [address] Performed By: #### 1 761-6 #### [facility] CLIA [id number] [address] [place] [address] [place] Hematocrit (Bld) [Volume fraction] 44.1 % Normal 36.0-46.0 [facility] Comment on above: Order Comment: Speci men Type: BLOOD SPECIMEN Ordering Facility: [facility] Address: [address] [address] Performed By: #### 1 761-6 #### [facility] CLIA [id number] [address] OF [place] Hemoglobin (Bld) [Mass/Vol] 15.2 g/dL Normal 11.5-15.5 [facility] Comment on above: Order Comment: Speci men Type: BLOOD SPECIMEN Ordering Facility: [facility] Address: [address] [address] Performed By: #### 1 761-6 #### [facility] CLIA [id number] [address] [place] [address] MCH (RBC) [Entitic mass] 31.7 pg Normal 26.0-34.0 [facility] Comment on above: Order Comment: Speci men Type: BLOOD SPECIMEN Ordering Facility: [facility] Address: [address] [place] [address] Performed By: #### 1 761-6 #### [facility] CLIA [id number] [address] [place] [address] MCHC (RBC) [Mass/Vol] 34.5 g/dL Normal 30.5-36.0 [facility] Comment on above: Order Comment: Speci men Type: BLOOD SPECIMEN Ordering Facility: [facility] Address: [address] [place] [address] Performed By: #### 1 761-6 #### [facility] CLIA [id number] [address] [place] [address] MCV (RBC) [Entitic vol] 92.1 fL Normal 80.0-100.0 [facility] Comment on above: Order Comment: Speci men Type: BLOOD SPECIMEN Ordering Facility: [facility] Address: [address] [place], [place] [address] Performed By: #### 1 761-6 #### [facility] CLIA [id number] [address] [place] [address] OF [place] Nucleated RBC (Bld) [#/Vol] 10*3/uL Normal <0.01 [facility] Comment on above: Order Comment: Speci men Type: BLOOD SPECIMEN Ordering Facility: [facility] Address: [address] [place], [place] [address] Performed By: #### 1 761-6 #### [facility] CLIA [id number] [address] [place] [address] [place] Platelet mean volume (Bld) [Entitic vol] 11.0 fL Normal 9.0-12.7 [facility] Comment on above: Order Comment: Speci men Type: BLOOD SPECIMEN Ordering Facility: [facility] Address: [address] Performed By: #### 1 761-6 #### [facility] CLIA [id number] [address] [place] [address] [place] Platelets (Bld) [#/Vol] 205 10*3/uL Normal 150-400 [facility] Comment on above: Order Comment: Speci men Type: BLOOD SPECIMEN Ordering Facility: [facility] Address: [address] [place], [place] [address] Performed By: #### 1 761-6 #### [facility] CLIA [id number] [address] [place] [address] [place] RBC (Bld) [#/Vol] 4.79 10*6/uL Normal 3.90-5.20 [facility] Comment on above: Order Comment: Speci men Type: BLOOD SPECIMEN Ordering Facility: [facility] Address: [address] [place], [place] [address] Performed By: #### 1 761-6 #### [facility] CLIA [id number] [address] [place] [address] [place] WBC (Bld) [#/Vol] 9.49 10*3/uL Normal 3.70-11.00 [facility] Comment on above: Order Comment: Speci men Type: BLOOD SPECIMEN Ordering Facility: [facility] Address: [address] [place], [place] [address] Performed By: #### 1 761-6 #### [facility] CLIA [id number] [address] [place] [address] [place] Erythrocyte distribution width (RBC) [Ratio] 11.7 % 11.5 - 15.0 % [facility] Hematocrit (Bld) [Volume fraction] 44.1 % 36.0 - 46.0 % [facility] Hemoglobin (Bld) [Mass/Vol] 15.2 g/dL 11.5 - 15.5 g/dL [facility] MCH (RBC) [Entitic mass] 31.7 pg 26.0 - 34.0 pg [facility] MCHC (RBC) [Mass/Vol] 34.5 g/dL 30.5 - 36.0 g/dL [facility] MCV (RBC) [Entitic vol] 92.1 fL 80.0 - 100.0 fL [facility] Nucleated RBC (Bld) [#/Vol] <0.01 k/uL [facility] Platelet mean volume (Bld) [Entitic vol] 11.0 fL 9.0 - 12.7 fL [facility] Platelets (Bld) [#/Vol] 205 10*3/uL 150 - 400 k/uL [facility] RBC (Bld) [#/Vol] 4.79 10*6/uL 3.90 - 5.2 0 m/uL [facility] WBC (Bld) [#/Vol] 9.49 10*3/uL 3.70 - 11. 00 k/uL [facility] CK CREATINE KINASEon 023 CK [Catalytic activity/Vol] 115 U/L 42 - 196 U/L [facility] CK SerPl-cCncon 08-11-2022 CK [Catalytic activity/Vol] 115 U/L Normal 42-196 [facility] Comment on above: Order Comment: Speci men Type: BLOOD SPECIMEN Ordering Facility: [facility] Address: [address] [place] [address] Performed By: #### 1 761-6 #### [facility] CLIA [id number] [address] [place] [address] OF [facility] CNOVon 08-11-2022 CNOV Office Visit (RHEUAV ) YLNETTE HAIRSTON ([id number]) 1975 F Date Time Provider Department 08/11/22 9:40 AM NOEMI PHAM During your visit today, we recorded the following information about you: Pulse Blood pressure Weight 94/minute 118/73 102.5 kg Noemi Pham MD 08/11/2022 10:21 AM Signed Lynette Prince is a 41 year old female who presents for follow up: LABS RF+, elevated aldolase levels,slightly increased sed rate and crp EMG of rt upper and lower extremities- normal PREVIOUS DIAG myalgias- h/o FM - diagnosed in 2009, chronic back pain New diagnosis of RA and 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- elevated aldolase and complaints of weakness New onset of pleurisy New onset gastropresis New onset flushing of cheeks Newly diagnosed with Thoracic Outlet syndrome INTERVAL HISTORY since last visit,restarted on the plaquenil due to increasing arthralgias. Now has pain in both hips, both ankles and both shoulders Tired all the time. em stiffness- few minutes Fingers are fat and swollen No rash, ulcers, fevers, swollen lymph nodes, DVT/PE, raynauds, sicca symptoms, trouble swallowing, back pain, red eyes, Chron's/UC or Psoriasis. MEDS/THERAPIES TRIED: Plaquenil MTX- GI side effects Tied mobic- but caused hives Has weaned off the prednisone, has severe fatigue Muscle cramps- tried magnesium, feels it has helped her migraines neurontin - did not help Imuran- never started Skelaxin - did not help Norflex- did not help Flexeril - ''knocks me out'' Enbrel - started on 11/11- feels it is helping Currently on Enbrel and plaquenil bid REVIEW OF SYSTEMS Answers for HPI/ROS submitted by the patient on 07/30/2020 Fever : No Recent Unintentional Weight Change: No Eye Pain: No Eye Redness: No Vision Disturbance: No Eye Dryness: No Nose Bleeds: No Sores in your Mouth: No Trouble Swallowing: No Dry Mouth: No Chest Pain: Yes Leg Swelling: No A Cough: No Shortness of Breath: Yes Pain with Breathing: No Heartburn: No Abdominal Pain: Yes Diarrhea: No Black Tarry Stools: No Blood in Urine: No Pain or Burning with Urination: No Joint Pain or Stiffness: Yes Muscle Weakness: Yes Muscle Aches: Yes Joint Swelling: No Morning Stiffness in Joints: No A Rash: No Skin Color Changes: No Hair Loss: No Nail Changes: No Headaches: Yes Numbness: No Memory Loss: Yes Swollen Glands: No . PAST MEDICAL HISTORY Diagnosis Date Fibromyalgia Hypothyroidism Migraines POTS (postural orthostatic tachycardia syndrome) Rheumatoid arthritis (HCC) No past surgical history on file. hydrOXYchloroQUINE (PLAQUENIL) 200 mg tablet Take 1 tablet by mouth twice daily. ondansetron (ZOFRAN) 4 mg tablet TAKE 1 TABLET BY MOUTH EVERY 12 HOURS NEEDED methylPREDNISolone (MEDROL, MARYBEL,) 4 mg Dose-Pack As Instructed per package Etanercept (ENBREL) 50 mg/mL (1 mL) injection Inject 50mg sq qwkly magnesium oxide (MAG-OX) 400 mg (241.3 mg magnesium) tablet Take 1 tablet by mouth twice daily. levothyroxine (SYNTHROID) 50 mcg tablet Take 50 mcg by mouth once daily. metoprolol tartrate, short acting, (LOPRESSOR) 25 mg tablet Take 12.5 mg by mouth once daily. omeprazole (PRILOSEC) 40 mg capsule Take 40 mg by mouth once daily. topiramate (TOPAMAX) 100 mg tablet Take 100 mg by mouth daily at bedtime. ibuprofen (MOTRIN) 800 mg tablet Take 800 mg by mouth as needed. semaglutide, weight loss, (WEGOVY) 0.25 mg/0.5 mL pen injector Inject 0.25 mg subcutaneously one time a week. ARIPiprazole (ABILIFY) 2 mg tablet Take 2 mg by mouth once daily. busPIRone (BUSPAR) 10 mg tablet Take 10 mg by mouth three times daily. COMPOUNDED PRESCRIPTION Handicapped placard Diagnosis- RA Cannot walk >200 ft Duration- 3 yrs sertraline (ZOLOFT) 100 mg tablet Take 100 mg by mouth once daily. No family history on file. Social History Tobacco Use Smoking status: Never Smokeless tobacco: Never Substance Use Topics Alcohol use: Yes Comment: Occasional Drug use: Never BP 118/73 Pulse 94 Wt 102.5 kg (226 lb) BMI 36.48 kg/m? PE; LIMITED IT IS VV Appears to be in no distress, very pleasant Pain on palpation of all joints No synovitis noted Pain over bilateral trochanteric bursa MOST RECENT LABS: REVIEWED WITH PATIENT IMP/PLAN: RA/FM- worsening arthralgias today -restarted plaquenil as joint pain worsening . -Will continue the Enbrel -.continue plaquenil - start low dose prednisone at 5mg po every day , increase to 10-15mg po every day -depomedrol injection today -handicapped placard today -check labs today F/U in 6m Noemi Pham MD F/U: 6m Check following: -none MD Inocencia Lopez CLOTH WEIGHER 08/11/2022 10:21 AM Signed Methylprednisolone injection verified. 80mg. Jud Rosa CLOTH WEIGHER 08/11/2022 11:22 AM Signed Patient given Depomedrol 80 mg IM in the lef (more content not included)... Normal [facility] CRP SerPl-mCncon 08-11-2022 CRP [Mass/Vol] 0.8 mg/dL Normal <0.9 [facility] Comment on above: Order Comment: Mert del valle Type: BLOOD SPECIMEN Ordering Facility: [place] Address: [address] [place] [address] Performed By: #### 2 1987-11 #### [facility] IA [id number] [address] [place] [address] [place] Comprehensive metabolic 2000 panelon 08-11-2022 Albumin [Mass/Vol] 4.6 g/dL Normal 3.9-4.9 [facility] Comment on above: Order Comment: Mert [facility] Type: BLOOD SPECIMEN Ordering Facility: [facility] Address: [address] [address] Performed By: #### 2 1987-11 #### [facility] CLIA [id number] [address] [place] [address] [place] ALP [Catalytic activity/Vol] 44 U/L Normal 34-123 [facility] Comment on above: Order Comment: Mert [place] valle Type: BLOOD SPECIMEN Ordering Facility: [facility] Address: [address] Performed By: #### 2 1987-11 #### [facility] CLIA [id number] [address] [place] [address] [place] ALT [Catalytic activity/Vol] 32 U/L Normal 7-38 [facility] Comment on above: Order Comment: Speci men Type: BLOOD SPECIMEN Ordering Facility: [facility] Address: [address] Performed By: #### 2 4323-02, 1987-11 #### [facility] CLIA [id number] [address] [place] [address] [place] Anion gap [Moles/Vol] 9 mmol/L Normal 9-18 [facility] Comment on above: Order Comment: Speci men Type: BLOOD SPECIMEN Ordering Facility: [facility] Address: [address] Performed By: #### 2 4323-02, 1987-11 #### [facility] IA [id number] [address] [place] [address] [place] AST [Catalytic activity/Vol] 26 U/L Normal 13-35 [facility] Comment on above: Order Comment: Speci men Type: BLOOD SPECIMEN Ordering Facility: [facility] Address: [address] [place] [address] Performed By: #### 2 4323-02, 1987-11 #### [facility] IA [id number] [address] [place] [address] [place] Bilirubin [Mass/Vol] 0.9 mg/dL Normal 0.2-1.3 [facility] Comment on above: Order Comment: Speci men Type: BLOOD SPECIMEN Ordering Facility: [place] Address: [address] Performed By: #### 2 4323-02, 1987-11 #### [facility] IA [id number] [address] [place] [address] [place] Calcium [Mass/Vol] 10.5 mg/dL High 8.5-10.2 [facility] Comment on above: Order Comment: Speci men Type: BLOOD SPECIMEN Ordering Facility: [facility] Address: [address] Performed By: #### 2 4323, 1987-11 #### [facility] CLIA [id number] [address] [place] [address] [place] Chloride [Moles/Vol] 102 mmol/L Normal 97-105 [facility] Comment on above: Order Comment: Speci men Type: BLOOD SPECIMEN Ordering Facility: [place] Address: [address] [place] [address] Performed By: #### 2 43209-29, 1987-11 #### [facility] CLIA [id number] [address] [place] [address] [place] CO2 [Moles/Vol] 29 mmol/L Normal 22-30 [facility] Comment on above: Order Comment: Speci men Type: BLOOD SPECIMEN Ordering Facility: [place] Address: [address] [place] [address] Performed By: #### 2 43209-29, 1987-11 #### [facility] IA [id number] [address] [place] [address] [place] Creatinine [Mass/Vol] 0.93 mg/dL Normal 0.58-0.96 [facility] Comment on above: Order Comment: Speci men Type: BLOOD SPECIMEN Ordering Facility: [place] Address: [address] [place] [address] Performed By: #### 2 43209-29, 1987-11 #### [facility] IA [id number] [address] [place] ESTIMATED GLOMERULAR FILTRATION RATE 76 mL/min/1.73m??? Normal >=60 [facility] Comment on above: Order Comment: Speci men Type: BLOOD SPECIMEN Ordering Facility: [facility] Address: [address] [place] [address] Result Comment: Flores mated Glomerular Filtration Rate (eGFR) is calculated using the 2020 CKD-EPI creatinine equation. This equation utilizes serum creatinine, sex, and age as parameters. The creatinine assay has traceable calibration to isotope dilution-mass spectrometry. Refer to KDIGO guidelines for clinical interpretation. In patients with unstable renal function, e.g. those with acute kidney injury, the eGFR may not accurately reflect actual GFR. Performed By: #### 2 43238, 1987-11 #### [facility] CLIA [id number] [address] [place] [address] [place] Glucose [Mass/Vol] 97 mg/dL Normal 74-99 [facility] Comment on above: Order Comment: Mert [place] valle Type: BLOOD SPECIMEN Ordering Facility: [facility] Address: [address] [address] Result Comment: The [employer] Diabetes Association (ADA) provides guidance for cutoff values for fasting glucose and random glucose. The ADA defines fasting as no caloric intake for at least 8 hours. Fasting plasma glucose results between 100 to 125 mg/dL indicate increased risk for diabetes (prediabetes). Fasting plasma glucose results greater than or equal to 126 mg/dL meet the criteria for diagnosis of diabetes. In the absence of unequivocal hyperglycemia, results should be confirmed by repeat testing. In a patient with classic symptoms of hyperglycemia or hyperglycemic crisis, random plasma glucose results greater than or equal to 200 mg/dL meet the criteria for diagnosis of diabetes. Reference: Standards of Medical Care in Diabetes 2016, [employer] Diabetes Association. Diabetes Care. 2016.39(Suppl 1). Performed By: #### 2 43238, 1987-11 #### [facility] IA [id number] [address] [place] [address] [place] Potassium [Moles/Vol] 4.7 mmol/L Normal 3.7-5.1 [facility] Comment on above: Order Comment: Mert [place] Type: BLOOD SPECIMEN Ordering Facility: [place] Address: [address] [place] [address] Performed By: #### 2 43238, 1987-11 #### [facility] CLIA [id number] [address] [place] [address] [place] Protein [Mass/Vol] 7.6 g/dL Normal 6.3-8.0 [facility] Comment on above: Order Comment: Mert [place] Type: BLOOD SPECIMEN Ordering Facility: [place] Address: [address] Performed By: #### 2 4323, 1987-11 #### [facility] CLIA [id number] [address] [place] [address] [place] Sodium [Moles/Vol] 140 mmol/L Normal 136-144 [facility] Comment on above: Order Comment: Speci men Type: BLOOD SPECIMEN Ordering Facility: [place] Address: [address] [id number] Performed By: #### 2 43209-29, 1987-11 #### [facility] CLIA [id number] [address] [place] [address] [place] Urea nitrogen [Mass/Vol] 15 mg/dL Normal 7-21 [facility] Comment on above: Order Comment: Speci men Type: BLOOD SPECIMEN Ordering Facility: [place] Address: [address] [id number] Performed By: #### 2 43209-29, 1987-11 #### [facility] CLIA [id number] [address] [place] [address] [place] Albumin [Mass/Vol] 4.6 g/dL 3.9 - 4.9 g/dL [facility] ALP [Catalytic activity/Vol] 44 U/L 34 - 123 U/L [facility] ALT [Catalytic activity/Vol] 32 U/L 7 - 38 U/L [facility] Anion gap [Moles/Vol] 9 mmol/L 9 - 18 mmol/L [facility] AST [Catalytic activity/Vol] 26 U/L 13 - 35 U/L [facility] Bilirubin [Mass/Vol] 0.9 mg/dL 0.2 - 1.3 mg/dL [facility] Calcium [Mass/Vol] 10.5 mg/dL High 8.5 - 10. 2 mg/dL [facility] Chloride [Moles/Vol] 102 mmol/L 97 - 105 mmol/L [facility] CO2 [Moles/Vol] 29 mmol/L 22 - 30 mmol/L [facility] Creatinine [Mass/Vol] 0.93 mg/dL 0.58 - 0.96 mg/dL [facility] Estimated Glomerular Filtration Rate 76 mL/min/1.73m >=60 mL/min/1.73m [facility] Glucose [Mass/Vol] 97 mg/dL 74 - 99 mg/dL [facility] Potassium [Moles/Vol] 4.7 mmol/L 3.7 - 5.1 mmol/L [facility] Protein [Mass/Vol] 7.6 g/dL 6.3 - 8.0 g/dL [facility] Sodium [Moles/Vol] 140 mmol/L 136 - 144 mmol/L [facility] Urea nitrogen [Mass/Vol] 15 mg/dL 7 - 21 mg/dL [facility] ESR Westergren method (Bld) [Velocity]on 08-11-2022 ESR (Bld) [Velocity] 23 mm/h High 0 - 20 mm/hr [facility] ESR (Bld) [Velocity] 23 mm/h High 0-20 [facility] Comment on above: Order Comment: Speci men Type: BLOOD SPECIMEN Ordering Facility: [place] Address: [address] [place] [address] Performed By: #### 1 761-6 #### [facility] CLIA [id number] 9500 [facility] [address] STATES OF [facility] XR elbow RT 2Von 07-30-2022 XR elbow RT 2V [place] [address] XRay Report Signed Patient: Lynette Hairston MR#: [id number] 46 : 1975 Acct:[id number] Age/Sex: 47 / F ADM Date: 07/30/22 [place] [facility] [place]: Type: [facility] Attending Dr: Jud MCRAEC Copies to: GOLD Degroot Ordering Provider: GOLD Degroot Date of Service: 07/30/22 XR/XR elbow RT 2V: Right elbow pain RIGHT ELBOW - 2 views CLINICAL HISTORY: Right elbow pain for months. Painful range of motion. COMPARISON: None FINDINGS: No focal soft tissue abnormality. No elbow joint effusion. No acute bony process. No significant degenerative change. XR/XR elbow RT 2V IMPRESSION: NO ACUTE BONY PROCESS. Impression dictated by: Jeremie Martines Jr., DRafORaf07/30/2022 12:09 PM Dictation Location: [place] [address] Transcribed By: JAZMIN 07/30/22 120 Dictated By: Jeremie Martines Jr, DO 07/30/22 1209 Signed By: 07/30/22 1209 [facility] Orders Onlyon 07-15-2022 Orders Only [id number] Refugio Hairston 1975 Replaced By [facility] Provider Department Center 07/15/2022 137CRISTHIAN JACKSON [facility] No family history on file [facility] Orders Onlyon 07-09-2022 Orders Only [id number] Refugio Hairston 1975 Replaced By [facility] Provider Department [place] 07/09/2022 Renato-CRISTHIAN FALCON [facility] No family history on file [facility] Orders Onlyon 06-28-2022 Orders Only [id number] Refugio Hairston 1975 Replaced By [facility] Provider Department Center 06/28/2022 137-CRISTHIAN FALCON [facility] No family history on file [facility] 36on 06-24-2022 36 Pt calling wanting t o know what the next steps are now that her labs and stools are back. She will be having Aricent Grouphart set up for your response to her. [facility] Orders Onlyon 06-16-2022 Orders Only [id number] Refugio Hairston 1975 Provider Department Center 06/16/2022 CRISTHIAN MARIE MP [facility] No family history on file [facility] Orders Onlyon 06-07-2022 Orders Only [id number] Refugio Hairston 1975 Replaced By [facility] Provider Department Center 06/07/2022 CRISTHIAN MARIE MP [facility] No family history on file [facility] 36on 05-31-2022 36 Patient called with concerns over her platelets. Patient states that she had labs drawn recently outside of [facility] and her platelets were at 96. Patient is concerned regarding this and is inquiring if there is anything she should do. I explained to the patient that we do not have these results in the system for her, however, she is going to call and have them faxed to us so you can review them. Please advise. Normal [facility] 37on 05-26-2022 37 Take fiber supplemen ts along with plenty of water. Supplements include: Psyllium (sample brand name: Metamucil) Methylcellulose (sample brand name: Citrucel) Calcium polycarbophil (sample brand name: FiberCon) Wheat dextrin (sample brand name: Benefiber) Start slow with ??? Tablespoon every other day, then gradually increase to 1-2 tablespoons/day. Normal [facility] Office Visiton 05-26-2022 Follow-up visit [id number] Refugio Hairston 1975 F Date Provider Department Center 05/26/2022 Renato-CRISTHIAN FALCON MP [facility] No family history on file Level of Service:21154 [place] OFFICE/OUTPATIENT ESTABLISHED MOD MDM 30-39 MIN Reason for Visit and Comments: Diarrhea [35] Follow-up [707322] - Patient states she has randomly lost control of her bowels in the recent weeks. Normal [facility] XR CERVICAL SPINE (2-3 VIEWS )on 02-07-2021 XR CERVICAL SPINE (2-3 VIEWS) EXAMINATION: XRAY VIEWS OF THE CERVICAL SPINE 02/07/2021 12:33 pm COMPARISON: None. HISTORY: ORDERING SYSTEM PROVIDED HISTORY: right arm pain TECHNOLOGIST PROVIDED HISTORY: right arm pain Reason for Exam: RUE pain Acuity: Chronic Type of Exam: Initial FINDINGS: Vertebral body height and alignment are maintained. There are minimal degenerative changes. There is no evidence of fracture or malalignment. IMPRESSION: No acute osseous abnormality. Interpreted by: Boubacar Louis MD Signed by: Boubacar Louis MD 02/07/21 Final result Normal [facility] XR CERVICAL SPINE (2-3 VIEWS )Ordered By: Garfield Restrepo on 02-07-2021 No acute osseous abnormality. [employer] Work Phone: EXAMINATION: XRAY VIEWS OF THE CERVICAL SPINE 02/07/2021 12:33 pm COMPARISON: None. HISTORY: ORDERING SYSTEM PROVIDED HISTORY: right arm pain TECHNOLOGIST PROVIDED HISTORY: right arm pain Reason for Exam: RUE pain Acuity: Chronic Type of Exam: Initial FINDINGS: Vertebral body height and alignment are maintained. There are minimal degenerative changes. There is no evidence of fracture or malalignment. [employer] Phone: Rashid, Mhpn Incoming Radiant Results From [employer] - 02/07/2021 1:12 PM EDT EXAMINATION: XRAY VIEWS OF THE CERVICAL SPINE 02/07/2021 12:33 pm COMPARISON: None. HISTORY: ORDERING SYSTEM PROVIDED HISTORY: right arm pain TECHNOLOGIST PROVIDED HISTORY: right arm pain Reason for Exam: RUE pain Acuity: Chronic Type of Exam: Initial FINDINGS: Vertebral body height and alignment are maintained. There are minimal degenerative changes. There is no evidence of fracture or malalignment. IMPRESSION: No acute osseous abnormality. [employer] Phone: [employer] Phone: Basic Metab w/rfx MGon 01-19 (cont.) Normal [facility] Comment on above: Result Comment: Aver age GFR for 40-49 years old: 99 mL/min/1.73sq m Chronic Kidney Disease: <60 mL/min/1.73sq m Kidney failure: <15 mL/min/1.73sq m eGFR calculated using average adult body mass. Additional eGFR calculator available at: [email or web address]/multiple_crcl_2012.htm Performed By: #### C DP BMPX #### [address] [address] Lieutenant Colonel: Brady Chan MD Anion gap [Moles/Vol] 8 mmol/L Low 04-10 [facility] Comment on above: Performed By: #### C DP, BMPX #### [address] [address] Lieutenant Colonel: Brady Chan MD Calcium [Mass/Vol] 9.4 mg/dL Normal 8.6-10.4 [facility] Comment on above: Performed By: #### C DP, BMPX #### [place] [address] Lieutenant Colonel: Brady Chan MD Chloride [Moles/Vol] 103 mmol/L Normal 98-107 [facility] Comment on above: Performed By: #### C DP, BMPX #### [place] [address] Lieutenant Colonel: Brady Chan MD CO2 [Moles/Vol] 27 mmol/L Normal 20-31 [facility] Comment on above: Performed By: #### C DP, BMPX #### [place] [address] Lieutenant Colonel: Brady Chan MD Creatinine [Mass/Vol] 0.73 mg/dL Normal 0.50-0.90 [facility] Comment on above: Performed By: #### C DP, BMPX #### [place] [address] Lieutenant Colonel: Brady Chan MD GFR, Amer >60 Normal >60 [facility] Comment on above: Performed By: #### C DP, BMPX #### [place] [id number] Lieutenant Colonel: Brady Chan MD GFR,non Amer >60 Normal >60 [facility] Comment on above: Performed By: #### C DP, BMPX #### [place] [id number] Lieutenant Colonel: Brady Chan MD Glucose [Mass/Vol] 107 mg/dL High 70-99 [facility] Comment on above: Performed By: #### C DP, BMPX #### [place] [address] Lieutenant Colonel: Brady Chan MD Potassium [Moles/Vol] 3.8 mmol/L Normal 3.7-5.3 [facility] Comment on above: Performed By: #### C DP, BMPX #### [place] [address] Lieutenant Colonel: Brady Chan MD Sodium [Moles/Vol] 138 mmol/L Normal 135-144 [facility] Comment on above: Performed By: #### C DP, BMPX #### [place] [address] Lieutenant Colonel: Brady Chan MD Urea nitrogen [Mass/Vol] 11 mg/dL Normal 6-20 [facility] Comment on above: Performed By: #### C DP, BMPX #### [place] [address] Lieutenant Colonel: Brady Chan MD BUN/CRE Ratio NOT REPORTED Normal -20 [facility] Comment on above: Performed By: #### C DP, BMPX #### [place] [address] Lieutenant Colonel: Brady Chan MD Staging: NOT REPORTED Normal [facility] Comment on above: Performed By: #### C DP, BMPX #### [place] [address] Lieutenant Colonel: Brady Chan MD CBC with Diffon 01-19-2021 Abs. Basophil 0.10 k/uL Normal 0.0-0.2 [facility] Comment on above: Performed By: #### C DP, BMPX #### [place] [address] Lieutenant Colonel: Brady Chan MD Abs.Neutrophil (Seg) 4.30 k/uL Normal 1.8-7.7 [facility] Comment on above: Performed By: #### C DP, BMPX #### [place] [address] Lieutenant Colonel: Brady Chan MD Basophils/100 WBC (Bld) 1 % Normal 0-2 [facility] Comment on above: Performed By: #### C DP, BMPX #### [place] [address] Lieutenant Colonel: Brady Chan MD Eosinophils (Bld) [#/Vol] 0.10 10*3/uL Normal 0.0-0.4 [facility] Comment on above: Performed By: #### C DP, BMPX #### [place] [address] Lieutenant Colonel: Brady Chan MD Eosinophils/100 WBC (Bld) 2 % Normal 1-4 [facility] Comment on above: Performed By: #### C DP, BMPX #### [place] [address] Lieutenant Colonel: Brady Chan MD Erythrocyte distribution width (RBC) [Ratio] 13.0 % Normal 12.5-15.4 [facility] Comment on above: Performed By: #### C DP, BMPX #### [place] [address] Lieutenant Colonel: Brady Chan MD Hematocrit (Bld) [Volume fraction] 41.3 % Normal 36-46 [facility] Comment on above: Performed By: #### C DP, BMPX #### [place] [address] Lieutenant Colonel: Brady Chan MD Hemoglobin (Bld) [Mass/Vol] 14.1 g/dL Normal 12.0-16.0 [facility] Comment on above: Performed By: #### C DP, BMPX #### [place] [address] Lieutenant Colonel: Brady Chan MD Lymphocytes (Bld) [#/Vol] 3.10 10*3/uL Normal 1.0-4.8 [facility] Comment on above: Performed By: #### C DP, BMPX #### [place] [address] Lieutenant Colonel: Brady Chan MD Lymphocytes/100 WBC (Bld) 37 % Normal 24-44 [facility] Comment on above: Performed By: #### C DP, BMPX #### [place] [address] Lieutenant Colonel: Brady Chan MD MCH (RBC) [Entitic mass] 31.2 pg Normal 26-34 [facility] Comment on above: Performed By: #### C DP, BMPX #### [place] [address] Lieutenant Colonel: Brady Chan MD MCHC (RBC) [Mass/Vol] 34.2 g/dL Normal 31-37 [facility] Comment on above: Performed By: #### C DP, BMPX #### [place] [id number] Lieutenant Colonel: Brady Chan MD MCV (RBC) [Entitic vol] 91.1 fL Normal 80-100 [facility] Comment on above: Performed By: #### C DP, BMPX #### [place] [address] Lieutenant Colonel: Brady Chan MD Monocytes (Bld) [#/Vol] 0.70 10*3/uL Normal 0.1-1.2 [facility] Comment on above: Performed By: #### C DP, BMPX #### [place] [address] Lieutenant Colonel: Brady Chan MD Monocytes/100 WBC (Bld) 8 % Normal 2-11 [facility] Comment on above: Performed By: #### C DP, BMPX #### [place] [address] Lieutenant Colonel: Brady Chan MD Neutrophil (Seg) 52 % Normal 36-66 [facility] Comment on above: Performed By: #### C DP, BMPX #### [place] [address] Lieutenant Colonel: Brady Chan MD Platelet mean volume (Bld) [Entitic vol] 8.4 fL Normal 6.0-12.0 [facility] Comment on above: Performed By: #### C DP, BMPX #### [place] [address] Lieutenant Colonel: Brady Chan MD Platelets (Bld) [#/Vol] 199 10*3/uL Normal 140-450 [facility] Comment on above: Performed By: #### C DP, BMPX #### [place] [address] Lieutenant Colonel: Brady Chan MD RBC (Bld) [#/Vol] 4.54 10*6/uL Normal 4.0-5.2 [facility] Comment on above: Performed By: #### C DP, BMPX #### [address] [address] Lieutenant Colonel: Brady Chan MD WBC (Bld) [#/Vol] 8.2 10*3/uL Normal 3.5-11.0 [facility] Comment on above: Performed By: #### C DP, BMPX #### [place] [address] Lieutenant Colonel: Brady Chan MD Abs.Imm.Granulocyte NOT REPORTED Normal 0.00-0.30 [facility] Comment on above: Performed By: #### C DP, BMPX #### [place] [address] Lieutenant Colonel: Brady Chan MD Auto Diff Performed NOT REPORTED Normal [facility] Comment on above: Performed By: #### C DP, BMPX #### [place] [address] Lieutenant Colonel: Brady Chan MD Immature Granulocyte NOT REPORTED Normal 0 [facility] Comment on above: Performed By: #### C DP, BMPX #### [address] [address] Lieutenant Colonel: Brady Chan MD NRBC Automated NOT REPORTED Normal [facility] Comment on above: Performed By: #### C DP, BMPX #### [place] [id number] Lieutenant Colonel: Brady Chan MD Platelet Estimate NOT REPORTED Normal [facility] Comment on above: Performed By: #### C DP, BMPX #### [facility] [address] [place], [place] [id number] Lieutenant Colonel: Brady Chan MD RBC morphology finding Nom (Bld) NOT REPORTED Normal [facility] Comment on above: Performed By: #### C DP, BMPX #### [facility] [address] [place], [place] [id number] Lieutenant Colonel: Brady Chan MD WBC Morphology NOT REPORTED Normal [facility] Comment on above: Performed By: #### C DP, BMPX #### [facility] [address] [place], [place] [id number] Lieutenant Colonel: Brady Chan MD US DUP LOWER EXTREMITY RIGHT VENon 01-19-2021 US DUP LOWER EXTREMITY RIGHT KARLOS EXAMINATION: DUPLEX VENOUS ULTRASOUND OF THE RIGHT LOWER EXTREMITY, 01/19/2021 4:06 pm TECHNIQUE: Duplex ultrasound using B-mode/lauren scaled imaging and Doppler spectral analysis and color flow was obtained of the right lower extremity. COMPARISON: None. HISTORY: ORDERING SYSTEM PROVIDED HISTORY: Right calf and posterior thigh pain/cramping TECHNOLOGIST PROVIDED HISTORY: Right calf and posterior thigh pain/cramping Acuity: Acute Additional signs and symptoms: upper thigh pain x 3 weeks FINDINGS: The visualized veins of the right lower extremity are patent and free of echogenic thrombus. The veins demonstrate good compressibility with normal color flow study and spectral analysis. IMPRESSION: No evidence of DVT in the right lower extremity. Interpreted by: Gold Honeycutt MD Signed by: Gold Honeycutt MD 01/19/21 Final result Normal [facility] ABDOMEN 1VWon 08-08-2020 ABDOMEN 1VW [facility] Department of Radiology [address] [place] [id number] ======== Patient Name: LYENTTE PRINCE : 1975 Sex: F Age: Race: NA Pt. Location: [facility] Patient Status: O Ordered Date: 08/08/2020 10:50:00 AM Completed Date: 08/08/2020 10:47 AM Requesting Provider: CRISTHIAN FALCON Attending Provider: CRISTHIAN FALCON Report Copy To: Signs & Symptoms: K59.00 Constipation, unspecified I10 History: [place] Comments: please evaluate for fecal over load Exam: ABDOMEN 1VW ======== ABDOMEN 1VW 08/08/2020 10:47 AM CLINICAL INDICATIONS: K59.00 Constipation, unspecified I10 TECHNOLOGIST COMMENTS: pt states pain, bloating in middle of belly QUESTION FOR THE RADIOLOGIST: please evaluate for fecal over load PROTOCOL: AP(PA) view was obtained. COMPARISON: None FINDINGS: No abnormal fecal retention is depicted with mild prominence retained fecal material in the right colon and small amounts around the splenic flexure. No other abnormalities of the abdominal gas pattern displayed. Surgical clips in the right upper quadrant consistent with prior cholecystectomy IMPRESSION: No significant abnormalities of the abdominal gas pattern on supine projections. Electronically signed: Brady Shen. Transcribed by: [email or web address], User Resident: Electronically Signed by: BRADY SHEN @ 08/08/2020 03:15 PM Normal [facility] Comment on above: Order Comment: kacie scott evaluate for fecal over load AFP TUMOR MARKER [id number] AFP TUMOR MARKER 2 ng/mL Normal 0-9 [facility] Comment on above: Result Comment: INTE RPRETIVE INFORMATION: Alpha Fetoprotein Tumor Marker The Malorie Lucy Access DxI AFP method is used. Results obtained with different assay methods or kits cannot be used interchangeably. AFP is a valuable aid in the management of nonseminomatous testicular cancer patients when used in conjunction with information available from the clinical evaluation and other diagnostic procedures. Increased AFP concentrations have also been observed in ataxia telangiectasia, hereditary tyrosinemia, primary hepatocellular carcinoma, teratocarcinoma, gastrointestinal tract cancers with and without liver metastases, and in benign hepatic conditions such as acute viral hepatitis, chronic active hepatitis, and cirrhosis. The result cannot be interpreted as absolute evidence of the presence or absence of malignant disease. The result is not interpretable as a tumor marker in females. Access complete set of age- and/or gender-specific reference intervals for this test in the [facility] Test Directory (Yottaa). Performed By: [facility] [address] [place] [id number] Processes Chemical Design Engineer: Radha Horton MD ANAon 08-08-2020 Nuclear Ab IF (S) [Titer] <1:40 Normal <1:40,1:40 [facility] Comment on above: Performed By: #### 1 0196, 22011 #### [facility] [address] [facility] [place] [address], [facility] BASIC METABOLIC PANELon 07-25 Calcium [Mass/Vol] 9.3 mg/dL Normal 8.6-10.3 [facility] Comment on above: Performed By: #### 9 9909, [id number] #### [facility] [address] [place] [address], [place] Chloride [Moles/Vol] 104 mmol/L Normal 98-107 [facility] Comment on above: Performed By: #### 9 9909, 79991 #### [facility] [address] [place] [address], [place] CO2 [Moles/Vol] 25 mmol/L Normal 21-31 [facility] Comment on above: Performed By: #### 9 9909, 40832 #### [facility] [address] [place] [address], [place] Creatinine [Mass/Vol] 0.93 mg/dL Normal 0.60-1.20 [facility] Comment on above: Performed By: #### 9 9908, 52651 #### [facility] [address] [place] [address], [place] GFR/1.73 sq M predicted among blacks MDRD (S/P/Bld) [Vol rate/Area] mL/min/{1.73_m2} Normal >60 [facility] Comment on above: Performed By: #### 9 9908, 47829 #### [facility] [address] [place] [address], [place] GFR/1.73 sq M predicted among non-blacks MDRD (S/P/Bld) [Vol rate/Area] mL/min/{1.73_m2} Normal >60 [facility] Comment on above: Performed By: #### 9 9908, 68204 #### [facility] [address] [place] [address], [place] Glucose [Mass/Vol] 97 mg/dL Normal 70-100 [facility] Comment on above: Performed By: #### 9 9908, 95596 #### [facility] [address] [place] [address], [place] Potassium [Moles/Vol] 3.9 mmol/L Normal 3.5-5.1 [facility] Comment on above: Performed By: #### 9 9908, 28597 #### [facility] [address] [place] [address], [place] Sodium [Moles/Vol] 137 mmol/L Normal 136-145 [facility] Comment on above: Performed By: #### 9 9908, 54334 #### [facility] [address] [place] [address], [place] Urea nitrogen [Mass/Vol] 15 mg/dL Normal 7-25 [facility] Comment on above: Performed By: #### 9 9909, 61736 #### [facility] [address] [place] [address], [facility] CBC W/DIFFon 08-08-2020 ABS BASOPHILS 0.1 10*3/uL Normal 0.0-0.2 [facility] Comment on above: Performed By: #### 5 0103 #### [facility] [address] [place] [address], [facility] ABS IMM GRANS 0.0 10*3/uL Normal 0.0-0.2 [facility] Comment on above: Performed By: #### 5 0103 #### [facility] [address] [place] [address], [facility] ABS NEUTROPHILS 4.4 10*3/uL Normal 1.6-7.6 [facility] Comment on above: Performed By: #### 5 0103 #### [facility] [address] [facility] [place] [address], [facility] Basophils/100 WBC (Bld) 0.9 % Normal 0.0-1.0 [facility] Comment on above: Performed By: #### 5 0103 #### [facility] [address] [facility] [place] [address], [facility] Eosinophils (Bld) [#/Vol] 0.1 10*3/uL Normal 0.0-0.5 [facility] Comment on above: Performed By: #### 5 0103 #### [facility] [address] [facility] [place] [address], [facility] Eosinophils/100 WBC (Bld) 1.1 % Normal 0.0-6.0 [facility] Comment on above: Performed By: #### 5 0103 #### [facility] [address] [place] [address], [facility] Erythrocyte distribution width (RBC) [Ratio] 13.0 % Normal 11.5-15.0 [facility] Comment on above: Performed By: #### 5 0103 #### [facility] [address] [place] [address], [facility] Hematocrit (Bld) [Volume fraction] 42.8 % Normal 36.0-45.0 [facility] Comment on above: Performed By: #### 5 0103 #### [facility] [address] [place] [address], [facility] Hemoglobin (Bld) [Mass/Vol] 14.7 g/dL Normal 12.0-15.0 [facility] Comment on above: Performed By: #### 5 0103 #### [facility] [address] [place] [address], [facility] IMMATURE GRANS 0.3 % Normal 0.0-1.0 [facility] Comment on above: Performed By: #### 5 0103 #### [facility] [address] [facility] [place] [address], [facility] Lymphocytes (Bld) [#/Vol] 2.2 10*3/uL Normal 1.2-4.0 [facility] Comment on above: Performed By: #### 5 0103 #### [facility] [address] [place] [address], [facility] Lymphocytes/100 WBC (Bld) 30.0 % Normal 20.0-45.0 [facility] Comment on above: Performed By: #### 5 0103 #### [facility] [address] [place] [address], [facility] MCH (RBC) [Entitic mass] 31.4 pg Normal 27.0-33.0 [facility] Comment on above: Performed By: #### 5 3 #### [facility] [address] [place] [address], [facility] MCHC (RBC) [Mass/Vol] 34.3 g/dL Normal 32.0-35.0 [facility] Comment on above: Performed By: #### 102 #### [facility] [address] [facility] [place] [address], [facility] MCV (RBC) [Entitic vol] 91.5 fL Normal 82.0-98.0 [facility] Comment on above: Performed By: #### 102 #### [facility] [address] [facility] [place] [address], [facility] Monocytes (Bld) [#/Vol] 0.6 10*3/uL Normal 0.1-1.0 [facility] Comment on above: Performed By: #### 102 #### [facility] [address] [place] [address], [facility] MONOS 8.6 % Normal 5.0-12.0 [facility] Comment on above: Performed By: #### 102 #### [facility] [address] Neutrophils/100 WBC (Bld) 59.1 % Normal 40.0-72.0 [facility] Comment on above: Performed By: #### 102 #### [facility] [address] [place] [address], [facility] Nucleated RBC/100 WBC (Bld) [Ratio] 0 % Normal 0-0 [facility] Comment on above: Performed By: #### 102 #### [facility] [address] [facility] [place] [address], [facility] PLAT CNT 163 10*3/uL Normal 150-400 [facility] Comment on above: Performed By: #### 102 #### [facility] [address] [place] [address], [facility] RBC (Bld) [#/Vol] 4.68 10*6/uL Normal 3.80-5.00 [facility] Comment on above: Performed By: #### 5 0103 #### [facility] [address] [place] [address], [facility] WBC (Bld) [#/Vol] 7.44 10*3/uL Normal 4.00-10.60 [facility] Comment on above: Performed By: #### 5 0103 #### [facility] [address] [place] [address], [facility] HEPATITIS A ANTIBODY IGMon 0 08-08-2020 HEP A AB IGM NONREACTIVE Normal NONREACTIVE [facility] Comment on above: Performed By: #### 3 1422, 35920, 88474, 98619 #### [facility] [address] [facility] [place] [address], [facility] HEPATITIS B CORE ANTIBODYon 08-08-2020 HEP B CORE AB NONREACTIVE Normal NONREACTIVE [facility] Comment on above: Performed By: #### 3 1422, 00330, 90106, 63029 #### [facility] [address] [place] [address], [facility] HEPATITIS B SURFACE ANTIGEN QUALon 08-08-2020 HEP B SURF AG QUAL NONREACTIVE Normal NONREACTIVE [facility] Comment on above: Performed By: #### 3 1422, 43631, 17383, 74746 #### [facility] [address] [facility] [place] [address], [facility] HEPATITIS C ANTIBODYon 08-08 ANTI-HCV NONREACTIVE Normal NONREACTIVE [facility] Comment on above: Performed By: #### 3 1422, 33228, 26946, 25690 #### [facility] [address] [facility]. [place] [id number], [facility] LIVER BATTERYon 08-08-2020 Albumin [Mass/Vol] 4.5 g/dL Normal 3.5-5.7 [facility] Comment on above: Performed By: #### 9 9909, 14874 #### [facility] [address] [place] [address], [facility] ALKALINE PHOSPH 37 IU/L Normal 34-104 [facility] Comment on above: Performed By: #### 9 9909, 91428 #### [facility] [address] [place] [address], [facility] ALT [Catalytic activity/Vol] 56 U/L High 7-52 [facility] Comment on above: Performed By: #### 9 9908, 96911 #### [facility] [address] [place] [address], [facility] AST [Catalytic activity/Vol] 38 U/L Normal 13-39 [facility] Comment on above: Performed By: #### 9 9908, 35608 #### [facility] [address] [facility] [place] [address], [facility] Bilirubin [Mass/Vol] 1.1 mg/dL High 0.3-1.0 [facility] Comment on above: Performed By: #### 9 9908, 87468 #### [facility] [address] [facility] [place] [address], [facility] Bilirubin.direct [Mass/Vol] 0.2 mg/dL Normal 0.0-0.2 [facility] Comment on above: Performed By: #### 9 09, 01224 #### [facility] [address] [facility] [place] [address], [facility] Protein [Mass/Vol] 7.5 g/dL Normal 6.0-8.3 [facility] Comment on above: Performed By: #### 9 09, 16015 #### [facility] [address] [facility] [address] LIVER FIBROSIS CHRONIC VIRAL [id number] 08-08-2020 HIHTU-5-KYNCYNFSGRO IN,FIBROMETER 259 mg/dL Normal 131-293 [facility] ALT [Catalytic activity/Vol] 69 U/L High 5-40 [facility] Amylase [Catalytic activity/Vol] 131 U/L High 7-33 [facility] AST [Catalytic activity/Vol] 54 U/L High 9-40 [facility] Comment on above: Result Comment: This specimen is Hemolyzed. This may cause the results to be falsely increased. CIRRHOMETER PATIENT SCORE 0.12 Normal [facility] EER FIBROMETER REPORT See Note Normal [facility] Comment on above: Result Comment: Acce johnnie [facility] Enhanced Report using the link below: -Direct access: [email or web address] FIBROMETER INTERPRETATION See Report Normal [facility] Comment on above: Result Comment: INTE RPRETIVE INFORMATION: Fibrometer Interpretation Calculations for the final report are based on accurate data for age, gender, and platelet count. If any of this information needs to be corrected, please contact [facility] Client Services to request a recalculation. Client Services may be contacted at . The [employer] FibroMeter profile serves as a surrogate marker of liver fibrosis, cirrhosis, and necro-inflammatory activity. A proprietary algorithm calculates and compares results from 7 blood markers along with age and gender to provide a patient score (from 0 to 1) and a correlated fibrosis stage (Metavir F0-F4) and activity grade (Metavir A0-A3). The fibrosis/cirrhosis score is further evaluated by a rules-based system to detect anomalous profile results which may modify the fibrosis/cirrhosis score as needed. Results should be interpreted in conjunction with the patient's clinical history; particularly when the rules-based system has modified the scores. Legend: -Metavir is a histological scoring system for determining the extent of liver fibrosis and inflammation. STAGE OF FIBROSIS (F scale) F0 = no fibrosis F1 = portal fibrosis without septa F2 = portal fibrosis with few septa F3 = numerous septa without cirrhosis F4 = cirrhosis GRADE OF NECRO-INFLAMMATORY ACTIVITY (A scale) A0 = no activity A1 = mild activity A2 = moderate activity A3 = severe activity -Platelet count result provided by client. -The Prothrombin Index test expresses the Prothrombin Time (PT) as a percentage of normal, and is used to standardize PT results across different instrument/reagent combinations. This test was developed and its performance characteristics determined by [facility]. It has not been cleared or approved by the [place] Food and Drug Administration. This test was performed in a CLIA certified laboratory and is intended for clinical purposes. [13] [17] Performed By: [facility] [address] [place], [place] [id number] Processes Chemical Design Engineer: Radha Horton MD FIBROMETER PLATELET CT 163 k/uL Normal [facility] FIBROMETER PLATELET IND 81 % Low 90-120 [facility] FIBROMETER PLATELET SCORE 0.62 Normal [facility] FIBROSIS METAVIR CLASSIFICATION F2[F1-F3] Normal [facility] Comment on above: Result Comment: INTE RPRETIVE INFORMATION: Fibrosis Metavir Classification FibroMeter (fibrosis score) comments F0/F1 Equal probability between F0 and F1 F1[F1-F2] Predominance of F1, but F2 is possible F2[F1-F2] Predominance of F2, but F1 is possible F2[F1-F3] Predominance of F2, but F1 and F3 are possible F2/F3 Equal probability between F2 and F3 F3[F2-F4] Predominance of F3, but F2 and F4 are possible F3[F3-F4] Predominance of F3, but F4 is possible F4[F3-F4] Predominance of F4, but F3 is possible INFLAMETER METAVIR CLASSIFICATION A1/A2 Normal [facility] Comment on above: Result Comment: INTE RPRETIVE INFORMATION: InflaMeter Metavir Classification InflaMeter (activity score) comments A0/A1 Equal probability between A0 and A1 A1/A2 Equal probability between A1 and A2 A2/A3 Equal probability between A2 and A3 INFLAMETER PATIENT SCORE 0.61 Normal [facility] Urea nitrogen [Mass/Vol] 14 mg/dL Normal 7-20 [facility] MITOCHONDRIAL ABon 1 MITOCHONDRIAL AB SEE NMUP RESULT Abnormal NONE DETECTED [facility] Comment on above: Result Comment: NONE DETECTED LESS THAN 1:20 INTERMEDIATE LEVEL 1:20 - 1:80 (MAY BE PRESENT IN AUTOALLERGIC LIVER DISEASE) ELEVATED LEVEL GREATER THAN OR EQUAL TO 1:160 (STRONGLY SUGGESTIVE OF PRIMARY BILIARY CIRRHOSIS) Performed By: #### 1 0196, 22026 #### [facility] [address] MITOCHONDRIAL M2 ANTIBODY, [place] [id number] 08-08-2020 MITOCHONDRIAL M2 ANTIBODY IGG 2.1 Units Normal 0.0-24.9 [facility] Comment on above: Result Comment: REFE RENCE INTERVAL: Mitochondrial (M2) Antibody, IgG 20.0 Units or less ......... Negative 20.1 - 24.9 Units........... Equivocal 25.0 Units or greater....... Positive Anti-mitochondrial antibodies (AMA) are thought to be present in 90-95% of patients with primary biliary cholangitis (PBC). However, the frequency of detected antibodies may be cohort or assay dependent, as lower sensitivities have been reported. Not all PBC patients are positive for AMA; some patients may be positive for SP100 and/or GP210 antibodies. A negative result does not rule out PBC. Performed By: [facility] [address] [place] [address] Processes Chemical Design Engineer: Radha Horton MD PROTHROMBIN TIMEon INR Coag (PPP) [Relative time] 1.05 {INR} Normal 0.91-1.16 [facility] Comment on above: Result Comment: ACCC P RECOMMENDED INR FOR WARFARIN THERAPY ------ ------- CONDITION INR PROPHYLAXIS OF VENOUS THROMBOSIS 2-3 (HIGH-RISK SURGERY) TREATMENT OF VENOUS THROMBOSIS 2-3 TREATMENT OF PULMONARY EMBOLISM 2-3 PREVENTION OF SYSTEMIC EMBOLISM: 2-3 ACUTE MYOCARDIAL INFARCTION TISSUE HEART VALVES VALVULAR HEART DISEASE ATRIAL FIBRILLATION RECURRENT SYSTEMIC EMBOLISM MECHANICAL HEART VALVE 2.5-3.5 FROM: ORAL ANTICOAGULANTS. MECHANISM OF ACTION, CLINICAL EFFECTIVENESS, AND OPTIMAL THERAPEUTIC RANGE. CHEST 1995;108:231S-246S. Performed By: #### 1 9336, 34448 #### [facility] [address] [place] [address], [facility] PT Coag (PPP) [Time] 13.7 s Normal 12.3-14.8 [facility] Comment on above: Result Comment: ALL RESULTS MUST BE INTERPRETED WITH RESPECT TO BLOOD DRAWING ARTIFACT OR DILUTION ERROR OF ANTICOAGULANT AT THE TIME OF SAMPLING. Performed By: #### 1 0196, 55970 #### [facility] [address] [place] [address], [facility] XR FOOT LEFT (MIN 3 VIEWS)on 04-24-2019 No acute osseous abnormality in the left foot. [facility]: THREE XRAY VIEWS OF THE LEFT FOOT 04/24/2019 5:28 pm COMPARISON: 06/18/2018 HISTORY: ORDERING SYSTEM PROVIDED HISTORY: pain to lateral foot, no traumatic injury, might have rolled foot when walking on uneven gound TECHNOLOGIST PROVIDED HISTORY: pain to lateral foot, no traumatic injury, might have rolled foot when walking on uneven gound FINDINGS: Soft tissues are within normal limits. There is no acute fracture or dislocation. Joint spaces are preserved. No bony erosion. [facility] Rashid, Mhpn Incoming Radiant Results From [employer] - 04/24/2019 5:49 PM EDT EXAMINATION: THREE XRAY VIEWS OF THE LEFT FOOT 04/24/2019 5:28 pm COMPARISON: 06/18/2018 HISTORY: ORDERING SYSTEM PROVIDED HISTORY: pain to lateral foot, no traumatic injury, might have rolled foot when walking on uneven gound TECHNOLOGIST PROVIDED HISTORY: pain to lateral foot, no traumatic injury, might have rolled foot when walking on uneven gound FINDINGS: Soft tissues are within normal limits. There is no acute fracture or dislocation. Joint spaces are preserved. No bony erosion. IMPRESSION: No acute osseous abnormality in the left foot. [facility] Large Joint Arthro/Inj: bila teral greater trochanteric bursa injection [facility] Vital Signs Date Time Vital Sign Value Performing Clinician Bal infante 08-05-2023 11:00-0500 Body height 167 cm Cody Cuong BOOTH-CHERRY GROWER [facility] Phone[facility] 08-05-2023 11:00-0500 Body mass index (BMI) [Ratio] 39.39 kg/m2 Cody Hutchins FRONT ELEVATOR OPERATOR-CHERRY GROWER Work Phone: [employer] 08-05-2023 11:00-0500 Body weight 109.86 kg Cody Hutchins FRONT ELEVATOR OPERATOR-CHERRY GROWER Work Phone: [facility] 08-05-2023 11:00-0500 Diastolic blood pressure 88 mm[Hg] Cody Hutchins APRN-CHERRY GROWER Work Phone: [facility] 08-05-2023 11:00-0500 Heart rate 88 /min Cody Hutchins FRONT ELEVATOR OPERATOR-CHERRY GROWER Work Phone: [facility] 08-05-2023 11:00-0500 Systolic blood pressure 130 mm[Hg] Cody Hutchins APRN-CHERRY GROWER Work Phone: [facility] 07-13-2023 16:15-0500 Body height 167.64 cm Beba Rossi Other [employer] Other 07-13-2023 16:15-0500 Body mass index (BMI) [Ratio] 39.06 kg/m2 Beba Rossi Other [employer] Other 07-13-2023 16:15-0500 Body temperature 97.3 [degF] Beba Rossi Other [employer] Other 07-13-2023 16:15-0500 Body weight 109.77 kg Beba Farahmond Other [employer] Other 07-13-2023 16:15-0500 Diastolic blood pressure 80 mm[Hg] Beba Rossi Other [employer] Other 07-13-2023 16:15-0500 Respiratory rate 18 /min Beba Rossi Other [employer] Other 07-13-2023 16:15-0500 SaO2% (BldA) [Mass fraction] 98 % Beba Richey Other [employer] Other 07-13-2023 16:15-0500 Systolic blood pressure 120 mm[Hg] Beba Richey Other [employer] Other 06-24-2023 11:38-0500 Body height 167.6 cm Noemi Pham MD Work Phone: [facility] 06-24-2023 11:38-0500 Body weight 108.86 kg Noemi Pham MD Work Phone: [facility] 06-24-2023 11:38-0500 Diastolic blood pressure 77 mm[Hg] Noemi Pham MD Work Phone: [facility] 06-24-2023 11:38-0500 Heart rate 104 /min Noemi Pham MD Work Phone: [facility] 06-24-2023 11:38-0500 Respiratory rate 20 /min Noemi Pham MD Work Phone: [facility] 06-24-2023 11:38-0500 Systolic blood pressure 114 mm[Hg] Noemi Pham MD Work Phone: [facility] 08-11-2022 09:48-0500 Body weight 102.51 kg Noemi Pham MD Work Phone: [facility] 08-11-2022 09:48-0500 Diastolic blood pressure 73 mm[Hg] Noemi Pham MD Work Phone: [facility] 08-11-2022 09:48-0500 Heart rate 94 /min Noemi Pham MD Work Phone: [facility] 08-11-2022 09:48-0500 Systolic blood pressure 118 mm[Hg] Noemi Pham MD Work Phone: [facility] 02-07-2021 11:53-0400 Body mass index (BMI) [Ratio] 37.12 kg/m2 Garfield Restrepo MD [employer] Phone: 02-07-2021 11:53-0400 Body temperature 98.4 [degF] Garfield Restrepo MD [employer] Phone: 02-07-2021 11:53-0400 Body weight 104.33 kg Garfield Restrepo MD [employer] Phone: 02-07-2021 11:53-0400 Diastolic blood pressure 92 mm[Hg] Garfield Restrepo MD [employer] Phone: 02-07-2021 11:53-0400 Heart rate 108 /min Garfield Restrepo MD [employer] Phone: 02-07-2021 11:53-0400 Respiratory rate 16 /min Garfield Restrepo MD [employer] Phone: 02-07-2021 11:53-0400 SaO2% (BldA) [Mass fraction] 96 % Garfield Restrepo MD [employer] Phone: 02-07-2021 11:53-0400 Systolic blood pressure 122 mm[Hg] Garfield Restrepo MD [employer] Phone: 04-24-2019 15:30-0400 Pulse (Heart Rate) 104 /min [facility] 04-24-2019 15:28-0400 BMI (Body Mass Index) 35.51 kg/m2 [facility] 04-24-2019 15:28-0400 Body Temperature 98.4 [degF] [facility] 04-24-2019 15:28-0400 Body weight 99.79 kg [facility] [place] 04-24-2019 15:28-0400 BP Diastolic 81 mm[Hg] [facility] [place] 04-24-2019 15:28-0400 BP Systolic 116 mm[Hg] [facility] CIPRIANO 04-24-2019 15:28-0400 Height 167.6 cm [facility] 04-24-2019 15:28-0400 Pulse Oximetry 95 % Gold Lyn [facility] C[facility] 04-24-2019 15:28-0400 Respiratory Rate 15 /min Gold [facility] Encounters Encounter Date Encounter Type Care Provider Facility Start: 08-05-2023 End: 08-05-2023 ambulatory [facility] Start: 08-05-2023 End: 08-05-2023 Office outpatient visit 25 minutes [facility] FRONT ELEVATOR OPERATOR-CHERRY GROWER Work Phone: [facility] Comment on above: Status migrainosus ( Primary Dx); Migraine without aura and without status migrainosus, not intractable; Cervicalgia; Fibromyalgia; Paresthesias; Trapezius muscle spasm; Vertigo Start: 08-03-2023 Telephone encounter Gloria Box [facility] Start: 07-21-2023 End: 07-21-2023 ambulatory Betty Moreau Other [employer] Other Start: 07-21-2023 Telephone encounter Naz Andrew [facility] Comment on above: Headache Start: 07-13-2023 End: 07-13-2023 ambulatory Beba Richey Other [employer] Other Start: 07-13-2023 Office outpatient vi sit 15 minutes Beba Richey [facility] Start: 06-24-2023 End: 06-25-2023 [facility] Start: 06-24-2023 End: 06-24-2023 ambulatory TOY OBRIEN Facility:[facility] Start: 06-24-2023 End: 06-24-2023 Subsequent hospital visit by physician [facility] Work Phone: [facility] Radiology General Comment on above: Pain in joint, multi ple sites [M25.50] Start: 06-24-2023 End: 06-24-2023 Patient encounter procedure Noemi Pham MD Work Phone: Rheumatology Comment on above: Pain in joint, multi ple sites (Primary Dx); Trochanteric bursitis of both hips Start: 05-27-2023 End: 05-27-2023 ambulatory Jud Monson Other [employer] [facility] [employer] Other Start: 05-27-2023 Office outpatient vi sit 25 minutes Jud Monson [facility] Start: 05-12-2023 Telephone encounter Noemi perez MD Work Phone: Rheumatology Comment on above: Medication Problem Start: 03-21-2023 End: 03-22-2023 ambulatory TERRY LARSON [facility] Start: 03-09-2023 Telephone encounter Noemi perez MD Work Phone: Rheumatology Start: 01-28-2023 Telephone encounter Noemi perez MD Work Phone: Rheumatology Comment on above: Orders Start: 01-26-2023 ambulatory Noemi Pham MD Work Phone: Rheumatology Comment on above: results of blood wor k Start: 01-26-2023 E-mail encounter fro m caregiver Noemi Pham MD Work Phone: MATILDA REIS [facility] Start: 01-14-2023 End: 01-15-2023 ambulatory TOY OBRIEN [facility] Start: 01-11-2023 Refill Noemi Pham MD Work Phone: Rheumatology Comment on above: Refill Request Start: 12-24-2022 End: 12-24-2022 ambulatory TOY OBRIEN [facility] Start: 12-24-2022 End: 12-24-2022 Patient encounter procedure Emg 3 Neur Main (Max Weight: 1000) Work Phone: [facility] Start: 12-17-2022 End: 12-17-2022 [facility] Start: 12-13-2022 End: 12-18-2022 ambulatory TOY P [facility] Start: 12-01-2022 Telephone encounter Noemi perez MD Work Phone: Rheumatology Comment on above: Insurance Authorizat ion (Enbrel) Start: 11-23-2022 Orders Only Liz Connolly MD Work Phone: Neurology Comment on above: Fatigue, unspecified type (Primary Dx); Elevated aldolase level; Generalized weakness Start: 11-22-2022 ambulatory Liz Connolly MD Work Phone: Neurology Comment on above: Muscle soreness etc Start: 11-15-2022 Telephone encounter Noemi perez MD Work Phone: Rheumatology Comment on above: Results Start: 10-26-2022 ambulatory Noemi Pham MD Work Phone: Rheumatology Comment on above: Muscle Pain Start: 10-03-2022 Refill Noemi Pham MD Work Phone: Rheumatology Comment on above: Refill Request Start: 09-08-2022 End: 09-08-2022 ambulatory [facility] Start: 09-08-2022 End: 09-08-2022 ambulatory [facility] Start: 08-11-2022 End: 08-12-2022 ambulatory [facility]AM [facility] Start: 08-11-2022 End: 08-11-2022 Patient encounter procedure Noemi Pham MD Work Phone: Rheumatology Comment on above: Rheumatoid arthritis involving multiple sites, unspecified whether rheumatoid factor present (HCC) (Primary Dx) Start: 07-30-2022 End: 07-30-2022 ambulatory Jud Monson Facility:[facility] Start: 07-30-2022 End: 07-30-2022 ambulatory ZOEY Monson Work Phone: [facility] Work Phone: Start: 07-30-2022 End: 07-30-2022 Patient encounter procedure ZOEY Monson Work Phone: [facility] Start: 06-04-2022 Telephone encounter Noemi perez MD Work Phone: Rheumatology Comment on above: Insurance Authorizat ion Start: 06-02-2022 ambulatory Noemi Pham MD Work Phone: Rheumatology Comment on above: Ankle pain Start: 05-29-2022 Refill Noemi Pham MD Work Phone: Rheumatology Comment on above: Refill Request Start: 05-26-2022 End: 05-26-2022 ambulatory [facility] Start: 05-17-2022 Telephone encounter Noemi perez MD Work Phone: [address] [place] [address] Comment on above: Patient Question Start: 12-29-2021 Telephone encounter Noemi perez MD Work Phone: Rheumatology Comment on above: Patient Request Start: 10-27-2021 ambulatory Noemi Phma MD Work Phone: Rheumatology Comment on above: Handicap plaquered Start: 07-22-2021 End: 07-25-2021 ambulatory [facility] Start: 07-03-2021 End: 07-06-2021 ambulatory [facility] Start: 02-07-2021 End: 02-07-2021 Emergency department patient visit WINDOM [facility] Start: 02-07-2021 End: 02-07-2021 Emergency department patient visit [facility]field [facility] Comment on above: Neuropathic pain (Pr imary Dx) Start: 01-19-2021 End: 01-19-2021 Emergency department patient visit TOY Gim[facility] Start: 05-20-2020 End: 05-20-2020 Subsequent hospital visit by physician Zackary [facility] Comment on above: Canceled (Patient no show) Start: 05-16-2020 End: 05-16-2020 Subsequent hospital visit by physician Glory Gonzalez [facility] Comment on above: Canceled (Patient) Start: 05-14-2020 End: 05-14-2020 Subsequent hospital visit by physician Sander [facility] Start: 04-24-2019 End: 04-24-2019 Emergency department patient visit Gold Graves Work Phone: [facility] Comment on above: Sprain of left foot, initial encounter (Primary Dx) Procedures Date Procedure Procedure Detail Performing Clinician Start: 06-24-2023 Radex spine lumbosacral 2/3 views Noemi Pham MD Work Phone: Start: 06-24-2023 Arthrocentesis aspir&/inj major jt/bursa w/o us Noemi Pham MD Work Phone: Start: 05-13-2023 Diabetic retinal eye exam Naz Vasques Start: 12-24-2022 Nerve conduction studies 5-6 studies Liz Connolly MD Work Phone: Start: 12-17-2022 Colonoscopy Emg 1000) Work Phone: Start: 09-06-2022 Adult depression screening assessment Naz Vasques Start: 07-30-2022 Plain X-ray of right elbow BOWSTRING MAKER-C Jud Monson Work Phone: Start: 07-24-2021 Lipid 1996 panel - Serum or Plasma Noemi Pham MD Work Phone: Start: 06-24-2021 History of appendectomy Status post appendectomy, follow-up exam Naz Vasques Start: 06-24-2021 History of cholecystectomy Status post cholecystectomy Naz Vaqsues Start: 03-19-2021 Adult depression screening assessment Noemi Pham MD Work Phone: Start: 02-07-2021 Radex spine cervical 2 or 3 views Garfield Restrepo MD Start: 09-26-2019 H/O: hysterectomy History of hysterectomy Naz Vasques Start: 04-24-2019 Radex foot complete minimum 3 views Jud Osuna Work Phone: Plan of Treatment Date Care Activity Detail Author Start: 07-24-2026 Lipid 1996 panel - S blanca or Plasma Lipid Screening [facility] Start: 07-24-2026 LIPID SCREEN LIPID SCREEN [facility] Start: 06-24-2026 Diabetes Screening Diabetes Screenin g [facility] Start: 11-08-2025 DIABETES SCREEN DIABETES SCREEN [facility] Start: 11-08-2025 Diabetes Screening Diabetes Screenin g [facility] Start: 08-11-2025 DIABETES SCREEN DIABETES SCREEN [facility] Start: 08-05-2024 Adult BMI Screening Adult BMI Screen ing [facility] Start: 08-05-2024 Tobacco Screening Tobacco Screening [facility] Start: 05-13-2024 Glaucoma screening Diabetic Op hthalmology Exam [facility] Start: 05-13-2024 Tobacco Screening Tobacco Screening [facility] Start: 05-12-2024 Adult BMI Screening Adult BMI Screen ing [facility] Start: 12-18-2023 Colonoscopy COLONOSCOPY [facility] Start: 12-18-2023 COLORECTAL CANCER SCREENING COLORECTAL CANCER SCREENING [facility] Start: 09-30-2023 End: 09-30-2023 Patient encounter procedure 09/30/2023 10:30 AM EST Office Visit [facility] [address] [place] [address] [facility] [address] [place] [address] [facility] Start: 09-16-2023 End: 09-16-2023 Patient encounter procedure 09/16/2023 10:30 AM EST Office Visit [facility] [address] [place] [id number] Dallas Tobar MD [address] [place] [address] [facility] Start: 09-06-2023 Depression Screening Depression Scre ening [facility] Start: 09-02-2023 End: 09-02-2023 Patient encounter procedure [facility] Start: 08-05-2023 End: 08-05-2023 Patient encounter procedure 08/05/2023 11:30 AM EST Office Visit [facility] [address] [place] [address] Cody Hutchins, FRONT ELEVATOR OPERATOR-CHERRY GROWER [address] [place] [address] [facility] Start: 05-16-2023 DIABETES SCREEN DIABETES SCREEN [facility] Start: 03-25-2023 Covid-19 Vaccine () Covid-19 Vaccine () [facility] Start: 03-25-2023 Influenza vaccination [facility] Start: 01-26-2023 End: 03-28-2023 Extractable nuclear Ab panel - Serum ANTI LEVY ID Lab Routine Rheumatoid arthritis involving multiple sites, unspecified whether rheumatoid factor present (HCC) Expected: 01/26/2023, Expires: 03/28/2023 [facility] Work Phone: Comment on above: Expected: 01/26/2023 , Expires: 03/28/2023 Start: 10-27-2022 End: 12-27-2022 Aldolase [Enzymatic activity/volume] in Serum or Plasma ALDOLASE BLD Lab Routine Myalgia Expected: 10/27/2022, Expires: 12/27/2022 [facility] Work Phone: Comment on above: Expected: 10/27/2022 , Expires: 12/27/2022 Start: 10-27-2022 End: 12-27-2022 Creatine kinase [Enzymatic activity/volume] in Serum or Plasma CK CREATINE KINASE Lab Routine Myalgia Expected: 10/27/2022, Expires: 12/27/2022 [facility] Work Phone: Comment on above: Expected: 10/27/2022 , Expires: 12/27/2022 Start: 08-11-2022 End: 03-20-2023 Aldolase [Enzymatic activity/volume] in Serum or Plasma [facility] Work Phone: Comment on above: Expected: 08/11/2022 , Expires: 10/11/2022 Start: 07-25-2022 [facility]PRESSION [facility]MENT [facility] Start: 03-25-2022 Influenza vaccination INFLUENZA (#1) [facility] Start: 03-19-2022 Adult depression screening assessment DEPRESSION SCREENING [facility] Start: 01-27-2022 DTaP,Tdap and Td Vaccines (2 - Td or Tdap) DTaP,Tdap and Td Vaccines (2 - Td or Tdap) [facility] Start: 01-27-2022 DTaP/Tdap/Td vaccine (2 - Td or Tdap) DTaP/Tdap/Td vaccine (2 - Td or Tdap) [employer] Phone: Start: 01-27-2022 DTaP/Tdap/Td vaccine (2 - Td) DTaP/Tdap/Td vaccine (2 - Td) [place] Start: 01-27-2022 Urine microalbumin profile DTaP,Tdap,Td Vaccine (2 - Td or Tdap) [facility] Start: 07-25-2021 DEPRESSION ASSESSMENT [facility] Start: 03-25-2021 Influenza vaccination Flu vaccine (# 1) [employer] Phone: Start: 01-12-2021 COVID-19 VACCINE (3 - Booster for Pfizer series) COVID-19 VACCINE (3 - Booster for Pfizer series) [facility] Start: 01-12-2021 COVID-19 VACCINE (3 - Pfizer series) COVID-19 VACCINE (3 - Pfizer series) [facility] Start: 12-15-2020 COVID-19 VACCINE (3 - Pfizer risk 4-dose series) COVID-19 VACCINE (3 - Pfizer risk 4-dose series) [facility] Start: 12-15-2020 COVID-19 VACCINE (3 - Pfizer risk series) COVID-19 VACCINE (3 - Pfizer risk series) [facility] Start: 2020 COLOGUARD (FIT-DNA) COLOGUARD (FIT-D NA) [facility] Start: 2020 Colonoscopy COLONOSCOPY [facility] Start: 2020 COLORECTAL CANCER SCREENING COLORECTAL CANCER SCREENING [facility] Start: [address] COLONOGRAPHY [facility] Start: 2020 FECAL OCCULT BLOOD FECAL OCCULT BLOO D [facility] Start: 2020 Screening for malign ant neoplasm of colon Colon cancer screen colonoscopy [facility] [employer] Phone: Start: 2020 SIGMOIDOSCOPY SIGMOIDOSCOPY [facility] Start: 05-29-2020 End: 05-29-2020 Appointment 05/29/2020 Appointment Physical Therapy Jeremie Barnett BOOK ILLUSTRATOR [facility] Start: 05-28-2020 End: 05-28-2020 Appointment 05/28/2020 Appointment Physical Therapy Jeremie Barnett BOOK ILLUSTRATOR [facility] Start: 05-23-2020 End: 05-23-2020 Appointment 05/23/2020 Appointment Physical Therapy Glory Ortiz BOOK ILLUSTRATOR [facility] Start: 05-20-2020 End: 05-20-2020 Appointment [facility] Start: 05-16-2020 End: 05-16-2020 Appointment 05/16/2020 Appointment Physical Therapy Glory Ortiz, BOOK ILLUSTRATOR [facility] Start: 03-25-2020 Influenza vaccination Flu vaccine (# 1) [facility] [place] Start: 03-25-2019 Influenza vaccination Flu vaccine (# 1) [place], [place] Start: 2015 Diabetes screen Diabetes screen [employer] Phone: Start: 2015 Lipid [facility] [place] [place] Start: 2015 Lipid screen Lipid screen [place], [place] Start: 2015 Mammography [facility] Start: 2005 HPV TESTING HPV TESTING [facility] Start: 1996 Cervical cancer screen Cervical canc er screen [place], [place] Start: 1996 PAP TESTING PAP TESTING [facility] Start: 1996 Screening for malign ant neoplasm of cervix Cervical cancer screen [place], [place] Start: 1994 SHINGRIX VACCINE (1 of 2) SHINGRIX VACCINE (1 of 2) [facility] Start: 1994 Urine microalbumin profile [facility] Start: 1993 Adult BMI Follow Up Plan Adult BMI Follow Up Plan [facility] Start: 1993 Diabetic foot examination Diabetic Foot Exam [facility] Start: 1993 HIV SCREENING HIV SCREENING [facility] Start: 1990 HIV screen HIV screen Eboni Reddy [place], [place] Start: 1990 HIV screening HIV screen Eboni Connolly [place], [place] Start: 1981 PNEUMOCOCCAL (1 - PCV) PNEUMOCOCCAL (1 - PCV) [facility] Start: 1981 Pneumococcal vaccination Pneum ococcal Vaccine (1 - PCV) [facility] Start: 1975 Hepatitis C screening Hepatitis C [facility] Work Phone: End: 11-24-2023 EMG(NEURO/NI) EMG(NEURO/NI) EMG Routine Fatigue, unspecified type Elevated aldolase level Generalized weakness 1 Occurrences starting 11/23/2022 until 11/24/2023 [facility] Work Phone: Comment on above: 1 Occurrences starti ng 11/23/2022 until 11/24/2023 [facility] Immunizations Immunization Date Immunization Notes Care Provider Fa cility 04-23-2021 influenza virus vacc ine, unspecified formulation Noemi Pham MD Work Phone: [facility] Payers Date Payer Category Payer Self-pay 2021 Unknown MMO MMO [employer] [id number] 2021-Present [phone] [address] [place] [address] PPO [id number] 2021 Unknown [id number] 2021 Medicare [id number] 2021 Unknown [id number] 2020 Unknown [id number] 2015 Unknown [facility] xxxxxxxxxxxx 2015-Present [phone] [address] [place] [address] xxxxxxxxxxxx [id number] 2003 Medicaid [place] [employer] [place] [employer] [id number] 2003-Present [phone] [address] [place] [address] Medicaid [id number] 2003 Medicaid [id number] 2003 Unknown [id number] 1975 Unknown [id number] 1975 Unknown [id number] 1975 Unknown [id number] 1975 Unknown [id number] 1975 Unknown [id number] 1975 Unknown [id number] 1975 Unknown [id number] 1975 Unknown [id number] 6 Unknown [id number] Social History Date Type Detail Facility Start: 06-18-2018 End: 10-14-2021 Tobacco smoking status NHIS Never smoker [facility] Start: 06-18-2018 End: 10-14-2021 Tobacco use and exposure Never used [place], [place] Start: 06-18-2018 End: 08-05-2023 Alcohol intake Current drinker of alcohol (finding) [place] Start: 08-28-2017 Alcohol Comment social [place], [place] Start: 1975 Sex Assigned At Not on file M [place] Start: 06-18-2018 End: 08-05-2020 Alcohol intake Yes [facility] Start: 12-14-2022 End: 12-24-2022 Exposure to SARS-CoV-2 (event) Not sure [facility] Start: 10-26-2018 History SDOH Alcohol Comment Occasional [facility] Start: 1975 Sex Assigned At Female F [facility] Start: 08-05-2020 End: 01-14-2023 History of Social function [facility] National Score (1-10 0), lower number is lower risk 76 [facility] Start: 08-14-2019 Alcohol Comment occasional [facility] Start: 09-06-2022 Gender identity Identifies as female gender (finding) [facility] Start: 09-06-2022 Sexual orientation Heterosexual (carlos eduardo bolivar) [facility] Clinical Notes 10-28-2021 to 08-05-2023 MEI Corona - 08/05/2023 11:30 AM ESTPatient InstructionsTelephone Encounter - Gloria Norris - 08/03/2023 12:39 PM ESTTelephone Encounter - MEI Corona - 08/03/2023 12:39 PM EST Note Date & Type Note Facility 08-05-2023 History of Presen t illness Narrative Subjective: Patient ID: Lynette Hairston is a 48 y.o. female presenting for neurological follow-up. History of Present Illness: Lynette Hairston is followed regarding a headache disorder and daytime fatigue. She started having intermittent headaches in high school, for which she would occasionally miss class. In recent years she has complained of daily holocephalic, vicelike, pressure headaches that are present 14/02. 2-3 times a week they will build up and become more severe, unilateral pressure-like headaches with photophobia, sonophobia, and nausea. No positive or negative visual phenomena. When she gets the she would prefer to lie down in a dark and quiet room and rest. Topiramate worked well to prevent these headaches, although higher doses may have caused cognitive dysfunction. Her brother has migraines but no other family history of migraines. No family history of cerebral aneurysms. Headache History: 05/2020: daily headaches, often migrainous 07/2020: nearly daily headaches, most migrainous 2021: migraine 2x/week 02/2023: constant headache x5 days Current Meds: Abilify 2 mg Amlodipine ASA Buspirone 10 Crestor Fioricet Enbrel Synthroid Metoprolol XL Naproxen Omeprazole Ranexa Zofran Zoloft Previous Meds: Hydroxychloroquine Medrol Fioricet (does not help) Ozempic Topiramate 50 mg BID Testing: CT Sinuses (02/24/14): Negative MRI Cervical (04/12/14): DDD C4-5 w/ annular tear. MRI brain (04/12/14): Negative contrasted MRI of the brain. No evidence of acute pathology or demyelinating disease. MRI brain (02/13/16): Normal MRI of the brain. XR Cervical (09/27/19): Mild osteophytes C4-5 Labs (09/28/2019): Vitamin B-12 (310), Thyroid functions, CBC, Mgb, aldolase, Vitamin D25-OH (45.4), MMA, SPEP, IEP MRI brain + IAC (10/16/19): Normal PSG (12/2019): AHI 22.8, SaO2 88%, no PLMS Pertinent Medical History: She sees cardiology for POTS syndrome. She complains of chronic neck and shoulder muscle tightness and stiffness for which Norflex does not help. She sees a knockout machine operator for rheumatoid arthritis ([facility]) and fibromyalgia. Sleep/Social History: She complains of excessive daytime fatigue. She says she could sleep 12 hr a night although sleep is fragmented and sometimes it is difficult to fall back asleep. She is always tired in the daytime. She complains of poor balance. She has had a few episodes of vertigo with diplopia. She complains of problems with short-term memory. She drives without difficulty and denies difficulty with ADLs. She snores, has self arousals from snoring or gasping, and there may have been some witnessed apneas. Sleep study in 2014 showed upper airway resistance (her report) but no sleep apnea. She has gained 60 lb in the last 2 years. Current Visit: Seen in July 2023, Lynette is not doing well. She has had a persistent headache for the past 2 weeks. Her insurance did not cover the sumatriptan (quantity limit?). She has pressure in the top of her head and in her occiput. She has tightness and tenderness in her neck and shoulder muscles. She sees Conrad Garcia DC in [place] for her progressive care manager. She would like to start a preventative medication for migraines. She has been taking 200 mg zonisamide nightly. She added 100 mg dose this morning. She was doing quite well until the past two weeks. This helps with her nerve pain as well. She would have rare, mild headaches. She changed jobs. She has tizanidine to take as needed for muscle relaxation. She thinks sumatriptan worked to relieve her migraines in the past. I authorized the injection of 25 mg promethazine + 50 mg diphenhydramine + 30 mg Toradol in her right ventral gluteal muscle. She tolerated it well with minimal discomfort and no adverse affects. The following portions of the patient's history were reviewed and updated as appropriate: allergies, current medications, past family history, past medical history, past social history, past surgical history and problem list. Review of Systems Constitutional: Negative for activity change, appetite change, chills, diaphoresis, fatigue and fever. HENT: Negative for ear pain, facial swelling, hearing loss, tinnitus, trouble swallowing and voice change. Eyes: Positive for visual disturbance. Negative for photophobia, pain and redness. Respiratory: Negative. Cardiovascular: Negative. Gastrointestinal: Negative for diarrhea, nausea and vomiting. Endocrine: Negative. Genitourinary: Negative for difficulty urinating, dysuria and urgency. Musculoskeletal: Negative for arthralgias, back pain, gait problem, joint swelling and neck pain. Skin: Negative. Allergic/Immunologic: Negative. Neurological: Positive for dizziness and headaches. Negative for tremors, seizures, syncope, facial asymmetry, speech difficulty, weakness, light-headedness and numbness. Hematological: Negative. Psychiatric/Behavioral: Negative for agitation, behavioral problems, confusion, decreased concentration, dysphoric mood, hallucinations, self-injury, sleep disturbance and suicidal ideas. The patient is not nervous/anxious and is not hyperactive. Past Medical History: Diagnosis Date Anxiety [place]hma [place] 09/26/2019 Chronic rheumatic arthritis [place] Depression Diabetes mellitus [place] Fibromyalgia GERD (gastroesophageal reflux disease) HLD (hyperlipidemia) HTN (hypertension) HTN (hypertension) 09/22/2021 Hypothyroidism Migraine Moderate mitral regurgitation Obstructive sleep apnea syndrome 02/12/2020 POTS (postural orthostatic tachycardia syndrome) RA (rheumatoid arthritis) [place] Syncope TOS (thoracic outlet syndrome) Past Surgical History: Procedure Laterality Date ADENOIDECTOMY APPENDECTOMY BLADDER SUSPENSION Cardiac catheterization - CORS + LV GRAM/PRESS (05775) Left 10/08/2021 Performed by Ana María Plasencia MD at [facility] CARD[facility] CATH LABS CHOLECYSTECTOMY ENDOMETRIAL BIOPSY HYSTERECTOMY TONSILLECTOMY TONSILLECTOMY ADENOIDECTOMY Allergies Allergen Reactions Imdur [Isosorbide Mononitrate] Headache and Vomiting Meloxicam Hives Other reaction(s): hives Methotrexate Hives Social History Socioeconomic History Marital status: Spouse name: Not on file Number of children: Not on file Years of education: Not on file Highest education level: Not on file Occupational History Not on file Tobacco Use Smoking status: Never Smokeless tobacco: Never Vaping Use Vaping Use: Never used Substance and Sexual Activity Alcohol use: Yes Comment: occasional Drug use: No Sexual activity: Yes Partners: Male Other Topics Concern Caffeine Use Yes Comment: soda Social History Narrative Not on file Social Determinants of Health Financial Resource Strain: Not on file Food Insecurity: No Food Insecurity (03/25/2023) Hunger Screening Food Insecurity - Worry: Never True Food Insecurity - Inability: Never True Transportation Needs: Not on file Physical Activity: Not on file Stress: Not on file Social Connections: Not on file Interpersonal Safety: Not on file Family History Problem Relation Age of Onset Hyperlipidemia Mother Diabetes Mother Hypothyroidism Mother Hypertension Mother No Known Problems Father Breast cancer Neg Hx Colon cancer Neg Hx Ovarian cancer Neg Hx Lung cancer Neg Hx Cervical cancer Neg Hx Current Outpatient Medications on File Prior to Visit Medication Sig amLODIPine (NORVASC) 2.5 mg tablet TAKE 1 TABLET (2.5 MG TOTAL) BY MOUTH IN THE MORNING. ARIPiprazole (ABILIFY) 5 mg tablet Take 1 tablet (5 mg total) by mouth in the morning. aspirin 81 mg Take 1 tablet (81 mg total) by mouth daily. busPIRone (BUSPAR) 10 mg tablet Take 1 tablet (10 mg total) by mouth in the morning. EnbreL 50 mg/mL (1 mL) injection metoprolol succinate XL (TOPROL XL) 25 mg 24 hr tablet Take 0.5 tablets (12.5 mg total) by mouth in the morning. nitroglycerin (NITROSTAT) 0.4 MG SL tablet 1 under the tongue as needed for angina, may repeat q5mins for up three doses rosuvastatin (CRESTOR) 5 mg tablet Take 1 tablet (5 mg total) by mouth in the morning. sertraline (ZOLOFT) 100 mg tablet Take 1 tablet (100 mg total) by mouth in the morning. No current facility-administered medications on file prior to visit. OARRS was reviewed by MEI Corona. Objective: BP 130/88 (BP Site: Right Arm) Pulse 88 Ht 167 cm (5' 5.75 ) Wt 109.9 kg (242 lb 3.2 oz) LMP (LMP Unknown) BMI 39.39 kg/m Physical Exam: Mental Status: Orientation: Oriented. Level of consciousness: alert. Knowledge: good and consistent with education. Intact short-term memory and intact long-term memory. Vocabulary is normal. Memory: Appears normal. Attention span is normal. Concentration is normal. Speech: Normal quality. Language: Normal. Cranial Nerves: CN I: Intact CN II: Visual mehta full to confrontation. CN II - Visual Acuity: Normal in right eye and left eye. Optic Discs: No pallor/atrophy on right or left. No edema on right or left. CN III, IV, : CN III: PERRLA, EOM full, no nystagmus, no ptosis and no SONNY. Pupil Size: right = left. CN V: Facial sensation intact to pin. CN VII: Facial expression fully symmetric. CN VIII: CN VIII normal. CN IX, X: CN IX and X normal. CN XI: CN XI normal. CN XII: CN XII normal. Motor: Muscle Bulk: Normal. Muscle Tone: Normal. Right upper extremity muscle tone increased.Left upper extremity muscle tone increased.Right lower extremity muscle tone increased.Left lower extremity muscle tone increased. Power: Normal strength throughout. Pronator drift: None. Bradykinesia: None. Muscle Strength: Strength 5/5 througout Fasciculations: None Myotonia: No myotonia. Sensory: Light touch normal in upper and lower extremities. Vibration normal in upper and lower extremities. Proprioception: Normal in upper and lower extremities. Pinprick normal in upper and lower extremities. Gait/Coord/DTR: Casual gait with normal base and stride and without ataxia or circumduction, able to tandem walk, able to heel walk on right, able to heel walk on left, and . Tremor: Absent. Involuntary Movements: no abnormal movement. Myoclonus: None. Reflexes: Right brachioradialis 3+ Left brachioradialis 3+ Right biceps 3+ Left biceps 3+ Right triceps 3+ Left triceps 3+ Right patellar 3+ Left patellar 3+ Right achilles 3+ Left achilles 2+ Right plantar downgoing Left plantar downgonig Right Martinez reflex absent and left Martinez reflex absent Right ankle clonus absent and left ankle clonus absent. General Exam: Constitutional: Well-developed, well-nourished . Eyes: Normal appearance, no icterus. Neck: Normal appearance, decreased range of motion, supple, left cervical compression test positive and Bilateral upper trapezii and intraspinal muscle tightness L>R. Neck: right cervical compression test negative. Cardiovascular: Normal rate, regular rhythm, strong right carotid upstroke, strong left carotid upstroke, intact right distal pulses and intact left distal pulses. Cardiovascular: no right carotid bruit, no left carotid bruit, superficial temporal artery nontender on right, superficial temporal artery nontender on left, no right edema and no left edema. Skin: Warm and dry Psychiatric: Normal mood/affect, good eye contact, behaving normally, normal thought content, normal judgment and normal psychomotor. Pulmonary: Effort: Pulmonary effort is normal. Assessment/Plan: 08/05/2023 OV: Seen in July 2023, Lynette is not doing well. She has had a persistent headache for the past 2 weeks. Her insurance did not cover the sumatriptan (quantity limit?). She has pressure in the top of her head and in her occiput. She has tightness and tenderness in her neck and shoulder muscles. She sees Conrad Garcia DC in [place] for her progressive care manager. She would like to start a preventative medication for migraines. She has been taking 200 mg zonisamide nightly. She added 100 mg dose this morning. She was doing quite well until the past two weeks. This helps with her nerve pain as well. She would have rare, mild headaches. She changed jobs. She has tizanidine to take as needed for muscle relaxation. She thinks sumatriptan worked to relieve her migraines in the past. I authorized the injection of 25 mg promethazine + 50 mg diphenhydramine + 30 mg Toradol in her right ventral gluteal muscle. She tolerated it well with minimal discomfort and no adverse affects. Problem List Items Addressed This Visit Cardiovascular and Mediastinum Migraine without aura and without status migrainosus, not intractable Relevant Medications ketorolac (TORADOL) injection 30 mg (Completed) SUMAtriptan (IMITREX) 100 mg tablet zonisamide (ZONEGRAN) 100 mg capsule tiZANidine (ZANAFLEX) 4 mg tablet Nervous and Auditory Fibromyalgia Paresthesias Cervicalgia Musculoskeletal and Integument Trapezius muscle spasm Other Vertigo Other Visit Diagnoses Status migrainosus - Primary Relevant Medications ketorolac (TORADOL) injection 30 mg (Completed) diphenhydrAMINE (BENADRYL) injection 50 mg (Completed) promethazine (PHENERGAN) injection 25 mg (Completed) SUMAtriptan (IMITREX) 100 mg tablet zonisamide (ZONEGRAN) 100 mg capsule tiZANidine (ZANAFLEX) 4 mg tablet Patient noted to have elevated BMI and the following intervention(s) were applied: encouragement to exercise. Lynette has been screened for clinical depression and the following plan(s) are recommended: patient follow-up to return when and if necessary. SUGGEST: #1. Good sleep hygiene. Go to bed and get up at the same time every day. Turn off electronics an hour before bedtime. Try relaxation techniques such as deep breathing exercises, yoga, or guided meditation for 20-30 minutes before bed. Sleep for 7-9 hours uninterrupted each night. Get up each morning and exercise. Start with whatever amount of time you can tolerate and increase up to 30 minutes. When that is easy, increase the intensity. Limit caffeine to the mornings only. #2. Stay well-hydrated. You should drink at least 105 ounces of water daily (unless otherwise limited by another provider). More if it is hot, you are active, or if you are consuming caffeine or alcohol. #3. Tizanidine 4 mg tablets. Start with 1/4 to 1/2 tablet at bedtime for muscle relaxation. You can increase to 1, 1.5, or 2 tablets if tolerated without drowsiness the next morning. #4. Zonisamide 100 mg capsules. Take 1 capsule in the morning and 2 capsules at night for headache prevention and fibromyalgia/nerve pain. #5. Sumatriptan 100 mg tablets. Take 1 tablet at the onset of a headache. You can repeat this once 2 hours later. Do not take more than 2 doses in 24-hours and do not mix with other triptans. #6. Ease into physical activity. Start off with low impact exercise (walking, bicycling, etc). Start with small and manageable periods of time (as little as two minutes if that is all you can tolerate). As it gets easier, increase the amounts of time. (Philip the level of activity off of whether your heart rate is increasing and you can do the activity while holding a conversation). The goal is that you will eventually be able to do 30-45 minutes of low impact exercise a day. Once you achieve this, you can start adding in small amounts of higher impact exercise that elevates your heart rate and will not allow you to hold a conversation comfortably. #7. Return to office in 3 months, earlier if needed. --head hammock --exercise bicycle pedals Total time spent was 40 minutes: Preparing to see the patient (e.g., review of tests) Obtaining and/or reviewing separately obtained history Performing a medically appropriate examination and/or evaluation Counseling and educating the patient/family/caregiver Ordering medications, tests, or procedures Referring and communicating with other health career services coordinator (not separately reported) Documenting clinical information in the electronic or other health record Care coordination (not separately reported) - Cody Hutchins DNP, APRN-CNP 08/05/23 12:01 PM MEI Corona 08/05/23 1202 documented in this encounter [facility] 08-05-2023 Instructions MEI Corona - 08/05/2023 11:30 AM EST #1. Good sleep hygiene. Go to bed and get up at the same time every day. Turn off electronics an hour before bedtime. Try relaxation techniques such as deep breathing exercises, yoga, or guided meditation for 20-30 minutes before bed. Sleep for 7-9 hours uninterrupted each night. Get up each morning and exercise. Start with whatever amount of time you can tolerate and increase up to 30 minutes. When that is easy, increase the intensity. Limit caffeine to the mornings only. #2. Stay well-hydrated. You should drink at least 105 ounces of water daily (unless otherwise limited by another provider). More if it is hot, you are active, or if you are consuming caffeine or alcohol. #3. Tizanidine 4 mg tablets. Start with 1/4 to 1/2 tablet at bedtime for muscle relaxation. You can increase to 1, 1.5, or 2 tablets if tolerated without drowsiness the next morning. #4. Zonisamide 100 mg capsules. Take 1 capsule in the morning and 2 capsules at night for headache prevention and fibromyalgia/nerve pain. #5. Sumatriptan 100 mg tablets. Take 1 tablet at the onset of a headache. You can repeat this once 2 hours later. Do not take more than 2 doses in 24-hours and do not mix with other triptans. #6. Ease into physical activity. Start off with low impact exercise (walking, bicycling, etc). Start with small and manageable periods of time (as little as two minutes if that is all you can tolerate). As it gets easier, increase the amounts of time. (Philip the level of activity off of whether your heart rate is increasing and you can do the activity while holding a conversation). The goal is that you will eventually be able to do 30-45 minutes of low impact exercise a day. Once you achieve this, you can start adding in small amounts of higher impact exercise that elevates your heart rate and will not allow you to hold a conversation comfortably. #7. Return to office in 3 months, earlier if needed. --head hammock --exercise bicycle pedals documented in this encounter [facility] 08-03-2023 Miscellaneous Notes Formattin g of this note might be different from the original. Patient contacted our office requesting a sooner appt. Patient just started a new job and is off every other Tuesday and she is off this Tuesday. Bulk Fluids Handler looked and there are no appts available right now. Patient states that her headaches are just getting worse every day. She cannot take the pain anymore. She states that they are waking her up in the middle of the night now and with starting this new job she is unable to concentrate because she is so tired. Please advise if there is anything that we can do for the patient until we can get her a sooner appt. Please advise. Meron: when you are doing reminder calls for 08/05/2023, if anyone wants to cancel, please contact Lynette and put her on the schedule Clinical: If she is taking 100 mg of zonisamide each evening, she can increase her dose to 200 mg (two of the 100 mg capsules) each evening. Patient is already taking 200 mg of the Zonisamide nightly. Please advise. She can add 100 mg in the morning. Bulk Fluids Handler called pt. And left a message for her to call the office back to discuss her medication dosage question. Received call today 08/04/23 9:22 from patient who is requesting a call back in regard to previous message. Please call back and advise, callback#: [phone]. Bulk Fluids Handler spoke with pt. Bulk Fluids Handler told pt about the med dosage per Cody Hutchins and pt stated she understood. Pt also stated she is in so much pain asking for a migraine cocktail so she was added to schedule tomorrow 08/05/23. documented in this encounter [facility] 08-03-2023 Telephone encount er Note Patient contacted our office requesting a sooner appt. Patient just started a new job and is off every other Tuesday and she is off this Tuesday. Bulk Fluids Handler looked and there are no appts available right now. Patient states that her headaches are just getting worse every day. She cannot take the pain anymore. She states that they are waking her up in the middle of the night now and with starting this new job she is unable to concentrate because she is so tired. Please advise if there is anything that we can do for the patient until we can get her a sooner appt. Please advise. [facility] 08-03-2023 Telephone encount er Note Meron: when you are doing reminder calls for 08/05/2023, if anyone wants to cancel, please contact Lynette and put her on the schedule Clinical: If she is taking 100 mg of zonisamide each evening, she can increase her dose to 200 mg (two of the 100 mg capsules) each evening. [facility] 08-03-2023 Telephone encount er Note Patient is already taking 200 mg of the Zonisamide nightly. Please advise. [facility] 08-03-2023 Telephone encount er Note She can add 100 mg in the morning. [facility] 08-03-2023 Telephone encount er Note Bulk Fluids Handler called pt. And left a message for her to call the office back to discuss her medication dosage question. [facility] 08-03-2023 Telephone encount er Note Received call today 08/04/23 9:22 from patient who is requesting a call back in regard to previous message. Please call back and advise, callback#: [phone]. [facility] 08-03-2023 Telephone encount er Note Bulk Fluids Handler spoke with pt. Bulk Fluids Handler told pt about the med dosage per Cody Hutchins and pt stated she understood. Pt also stated she is in so much pain asking for a migraine cocktail so she was added to schedule tomorrow 08/05/23. [facility]amer 07-21-2023 Miscellaneous Notes Formattin g of this note might be different from the original. 1) When did the headache start? - 2 weeks ago 2) Where does it hurt? -neck, and back of head What type of pain? - per patient the pain is hard to describe, just very painful Can you rate it for me? - patient stated in the last 2 weeks the headache has been a 4 or 5, but last night 07/20/2023 was a 8 Does the pain radiate? -no, just neck muscles are tender What makes it better/worse? - computer screen Have you ever had a headache like this before? - yes Nausea/Vomiting or visual changes? - no What medications do you take daily and what have you taken for the headache so far? (include mg) - excedrine migraine , tylenol, and zonisamide (ZONEGRAN) 100 mg capsule How much water do you drink daily? - a lot of water When was the patient last seen by Neurology and with which provider? - 03/10/2023 with Yvonne Hutchins Please Advise. Patient is requesting an increase if medication zonisamide (ZONEGRAN) 100 mg capsule can be increased? Patient is requesting a call back to further discuss [phone]. Thank you so much She can increase the zonisamide to 200 mg (2 of the 100 mg capsules) each evening. Patient returned phone call. Bulk Fluids Handler informed her of Cody Hutchins's message below. She voiced understanding. documented in this encounter [facility] [employer] 07-21-2023 Telephone encount er Note 1) When did the headache start? - 2 weeks ago 2) Where does it hurt? -neck, and back of head What type of pain? - per patient the pain is hard to describe, just very painful Can you rate it for me? - patient stated in the last 2 weeks the headache has been a 4 or 5, but last night 07/20/2023 was a 8 Does the pain radiate? -no, just neck muscles are tender What makes it better/worse? - computer screen Have you ever had a headache like this before? - yes Nausea/Vomiting or visual changes? - no What medications do you take daily and what have you taken for the headache so far? (include mg) - excedrine migraine , tylenol, and zonisamide (ZONEGRAN) 100 mg capsule How much water do you drink daily? - a lot of water When was the patient last seen by Neurology and with which provider? - 03/10/2023 with Yvonne Hutchins Please Advise. Patient is requesting an increase if medication zonisamide (ZONEGRAN) 100 mg capsule can be increased? Patient is requesting a call back to further discuss [phone]. Thank you so much [facility] 07-21-2023 Telephone encount er Note She can increase the zonisamide to 200 mg (2 of the 100 mg capsules) each evening. [facility] 07-21-2023 Telephone encount er Note Patient returned phone call. Bulk Fluids Handler informed her of Cody Hutchins's message below. She voiced understanding. [facility] 07-13-2023 Evaluation note Encounter Date Diagnosis Assessment Notes Jun, Acute sinusitis, recurrence not specified, unspecified location (ICD-10 - J01.90) Drink plenty fluids, get plenty of rest. Take the amoxicillin with clavulanate and prednisone as prescribed until gone. Use the fluticasone nasal spray as prescribed until your symptoms improved. Take Tylenol or Motrin for aches pains or fevers. Follow-up with your family physician if no improvement in 2 to 3 days Jun, Right otitis media, unspecified otitis media type (ICD-10 - H66.91) [employer] Other 12-01-2023 NoteHNO ID: [id number] Author: Chato Chacko RT(R) Service: Radiology Author Type: Technologist Type: Progress Notes Filed: 06/24/2023 12:48 PM Note Text: Radiology Service Progress Note PATIENT NAME: Lynette Hairston DATE OF SERVICE: June 24, 2023 TIME: 12:47 PM PATIENT IDENTITY VERIFICATION COMPLETED USING TWO (2) IDENTIFIERS: Name and Date of confirmed by patient verbally and Name and Date of confirmed by identification band. FALL SCREENING: Has the patient had 2 falls in the last year or 1 fall with injury or currently using an Ambulatory Assistive Device (Walker, Cane, Wheelchair, Crutches, etc.)? No PATIENT GENDER DATA: Female. status: : No status: NO. PATIENT RELEVANT IMPLANT DATA REVIEWED: Not Applicable RADIOLOGY DEPARTMENT: General X-ray: Exam(s) Completed: Spine X-Ray(s): Lumbar AP / LAT / L5-S1 PERIPHERAL IV DATA: Not applicable SIGNED BY: RT Aurelio(R) June 24, 2023 12:47 [id number] NoteHNO ID: [id number] Author: Noemi Pham MD Service: ? Author Type: Physician Type: Progress Notes Filed: 06/24/2023 12:23 PM Note Text: Lynette Prince is a 41 year old female who presents for follow up: LABS RF+,>650, elevated aldolase levels,slightly increased sed rate and crp EMG of rt upper and lower extremities- normal PREVIOUS DIAG myalgias- h/o FM - diagnosed in 2009, chronic back pain RA and 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- elevated aldolase and complaints of weakness pleurisy gastropresis Thoracic Outlet syndrome INTERVAL HISTORY since last visit,has severe pain of rt hip Tried ES tylenol but not helping All joints are stiff and painful Ankles and feet are stiff and swollen Tops of both thighs painful Sitffness getting worse No rash, ulcers, fevers, swollen lymph nodes, DVT/PE, raynauds, sicca symptoms, trouble swallowing, back pain, red eyes, Chron's/UC or Psoriasis. MEDS/THERAPIES TRIED: Plaquenil MTX- GI side effects Tied mobic- but caused hives Magnesium- for cramps, feels it has helped her migraines neurontin - did not help Imuran- never started Skelaxin - did not help Norflex- did not help Flexeril - ''knocks me out'' Enbrel - started on 11/11- feels it is helping Currently on Enbrel and plaquenil bid REVIEW OF SYSTEMS PAST MEDICAL HISTORY Diagnosis Date - Fibromyalgia - Hypothyroidism - Migraines - POTS (postural orthostatic tachycardia syndrome) - Rheumatoid arthritis (HCC) No past surgical history on file. - Etanercept (ENBREL) 50 mg/mL (1 mL) injection Inject 50mg sq qwkly - hydrOXYchloroQUINE (PLAQUENIL) 200 mg tablet TAKE 1 TABLET BY MOUTH TWICE A DAY - metaxalone (SKELAXIN) 800 mg tablet TAKE 1/2 TABLET BY MOUTH TWICE A DAY NEEDED - predniSONE (DELTASONE) 5 mg tablet Take 2 to 3 tabs po qd - ondansetron (ZOFRAN) 4 mg tablet TAKE 1 TABLET BY MOUTH EVERY 12 HOURS NEEDED - methylPREDNISolone (MEDROL, MARYBEL,) 4 mg Dose-Pack As Instructed per package (Patient not taking: Reported on 01/14/2023) - magnesium oxide (MAG-OX) 400 mg (241.3 mg magnesium) tablet Take 1 tablet by mouth twice daily. - levothyroxine (SYNTHROID) 50 mcg tablet Take 50 mcg by mouth once daily. - metoprolol tartrate, short acting, (LOPRESSOR) 25 mg tablet Take 12.5 mg by mouth once daily. - omeprazole (PRILOSEC) 40 mg capsule Take 40 mg by mouth once daily. - topiramate (TOPAMAX) 100 mg tablet Take 100 mg by mouth daily at bedtime. - ibuprofen (MOTRIN) 800 mg tablet Take 800 mg by mouth as needed. - semaglutide, weight loss, (WEGOVY) 0.25 mg/0.5 mL pen injector Inject 0.25 mg subcutaneously one time a week. - ARIPiprazole (ABILIFY) 2 mg tablet Take 2 mg by mouth once daily. - busPIRone (BUSPAR) 10 mg tablet Take 10 mg by mouth three times daily. - COMPOUNDED PRESCRIPTION Handicapped placard Diagnosis- RA Cannot walk >200 ft Duration- 3 yrs - sertraline (ZOLOFT) 100 mg tablet Take 100 mg by mouth once daily. No family history on file. Social History Tobacco Use - Smoking status: Never - Smokeless tobacco: Never Substance Use Topics - Alcohol use: Yes Comment: Occasional - Drug use: Never There were no vitals taken for this visit. PE; ambulates well, pelasent mood Appears to be in no distress, very pleasant Pain on palpation of all joints No synovitis noted MOST RECENT LABS: REVIEWED WITH PATIENT IMP/PLAN: RA/FM- feels arthralgias are wrosening Now pain of both hips and top of thighs Rash on face still present, stopped plaquenil but rash persists -will continue to stay off plaquenil -continue Enbrel Bilateral hip pain -suspect due to bursitis, will inject today Large Joint Arthro/Inj: bilateral greater trochanteric bursa injection Informed Consent Consent Obtained: Verbal [place] Protocol A moment to CARE was completed. SIGN IN Sign in communication not applicable due to emergent procedure. Special Equipment: N/A Patient/Surrogate Stated/Verified: Patient name, Date of , Relevant allergies and Intended procedure TIME OUT Intended patient and procedure match the source document(s). Correct side/site marked and visible. 06/24/2023 12:19 PM The procedure site was prepped in the usual sterile fashion. Site: bilateral greater trochanteric bursas Medications (Right): 80 mg triamcinolone acetonide 40 mg/mL Anesthetics (Right): 2 mL lidocaine (PF) 10 mg/mL (1 %) Outcome: Tolerated well, no immediate complications Post-injection instructions were reviewed with the patient and the patient voiced understanding of these instructions. Injection sites verified by Inocencia Bui LPN In past eval by neurology for myopthay and none found -continue Enbrel -stopped plaquenil due to rash of face -will give her depomedrol 80mg im today for acute joint pain - F/U in 6m Noemi Pham MD F/U: 6m Check following: -none Noemi Pham, [facility]12-01-2023 History of Present illness Narrative* Chato Chacko, RT(R) - 06/24/2023 12:50 PM EST Radiology Service Progress Note PATIENT NAME: Lynette Hairston DATE OF SERVICE: June 24, 2023 TIME: 12:47 PM PATIENT IDENTITY VERIFICATION COMPLETED USING TWO (2) IDENTIFIERS: Name and Date of confirmedby patient verbally and Name and Date of confirmed by identification band. FALL SCREENING: Has the patient had 2 falls in the last year or 1 fall with injury or currently using an Ambulatory Assistive Device (Walker, Cane, Wheelchair, Crutches, etc.)? No PATIENT GENDER DATA: Female. status: : No status: NO. PATIENT RELEVANT IMPLANT DATA REVIEWED: Not Applicable RADIOLOGY DEPARTMENT: General X-ray: Exam(s) Completed: Spine X-Ray(s): Lumbar AP / LAT / L5-S1 PERIPHERAL IV DATA: Not applicable SIGNED BY: RT Aurelio(R) June 24, 2023 12:47 PM documented in this encounterOhio State Health System12-01-2023 History of Present illness Narrative* Noemi Pham MD - 06/24/2023 11:34 AM ESTAssociated Order(s): Large Joint Arthro/Inj: bilateral greater trochanteric bursa injection Post-Procedure Diagnose(s): Trochanteric bursitis of both hips Lynette Prince is a 41 year old female who presents for follow up: LABS RF+,>650, elevated aldolase levels,slightly increased sed rate and crp EMG of rt upper and lower extremities- normal PREVIOUS DIAG myalgias- h/o FM - diagnosed in 2009, chronic back pain RA and 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- elevated aldolase and complaints of weakness pleurisy gastropresis Thoracic Outlet syndrome INTERVAL HISTORY since last visit,has severe pain of rt hip Tried ES tylenol but not helping All joints are stiff and painful Ankles and feet are stiff and swollen Tops of both thighs painful Sitffness getting worse No rash, ulcers, fevers, swollen lymph nodes, DVT/PE, raynauds, sicca symptoms, trouble swallowing, back pain, red eyes, Chron's/UC or Psoriasis. MEDS/THERAPIES TRIED: Plaquenil MTX- GI side effects Tied mobic- but caused hives Magnesium- for cramps, feels it has helped her migraines neurontin - did not help Imuran- never started Skelaxin - did not help Norflex- did not help Flexeril - ''knocks me out'' Enbrel - started on 11/11- feels it is helping Currently on Enbrel and plaquenil bid REVIEW OF SYSTEMS PAST MEDICAL HISTORY Diagnosis Date Fibromyalgia Hypothyroidism Migraines POTS (postural orthostatic tachycardia syndrome) Rheumatoid arthritis (HCC) No past surgical history on file. Etanercept (ENBREL) 50 mg/mL (1 mL) injection Inject 50mg sq qwkly hydrOXYchloroQUINE (PLAQUENIL) 200 mg tablet TAKE 1 TABLET BY MOUTH TWICE A DAY metaxalone (SKELAXIN) 800 mg tablet TAKE 1/2 TABLET BY MOUTH TWICE A DAY NEEDED predniSONE (DELTASONE) 5 mg tablet Take 2 to 3 tabs po qd ondansetron (ZOFRAN) 4 mg tablet TAKE 1 TABLET BY MOUTH EVERY 12 HOURS NEEDED methylPREDNISolone (MEDROL, MARYBEL,) 4 mg Dose-Pack As Instructed per package (Patient not taking: Reported on 01/14/2023) magnesium oxide (MAG-OX) 400 mg (241.3 mg magnesium) tablet Take 1 tablet by mouth twice daily. levothyroxine (SYNTHROID) 50 mcg tablet Take 50 mcg by mouth once daily. metoprolol tartrate, short acting, (LOPRESSOR) 25 mg tablet Take 12.5 mg by mouth once daily. omeprazole (PRILOSEC) 40 mg capsule Take 40 mg by mouth once daily. topiramate (TOPAMAX) 100 mg tablet Take 100 mg by mouth daily at bedtime. ibuprofen (MOTRIN) 800 mg tablet Take 800 mg by mouth as needed. semaglutide, weight loss, (WEGOVY) 0.25 mg/0.5 mL pen injector Inject 0.25 mg subcutaneously one time a week. ARIPiprazole (ABILIFY) 2 mg tablet Take 2 mg by mouth once daily. busPIRone (BUSPAR) 10 mg tablet Take 10 mg by mouth three times daily. COMPOUNDED PRESCRIPTION Handicapped placard Diagnosis- RA Cannot walk >200 ft Duration- 3 yrs sertraline (ZOLOFT) 100 mg tablet Take 100 mg by mouth once daily. No family history on file. Social History Tobacco Use Smoking status: Never Smokeless tobacco: Never Substance Use Topics Alcohol use: Yes Comment: Occasional Drug use: Never There were no vitals taken for this visit. PE; ambulates well, pelasent mood Appears to be in no distress, very pleasant Pain on palpation of all joints No synovitis noted MOST RECENT LABS: REVIEWED WITH PATIENT IMP/PLAN: RA/FM- feels arthralgias are wrosening Now pain of both hips and top of thighs Rash on face still present, stopped plaquenil but rash persists -will continue to stay off plaquenil -continue Enbrel Bilateral hip pain -suspect due to bursitis, will inject today Large Joint Arthro/Inj: bilateral greater trochanteric bursa injection Informed Consent Consent Obtained: Verbal [place] Protocol A moment to CARE was completed. SIGN IN Sign in communication not applicable due to emergent procedure. Special Equipment: N/A Patient/Surrogate Stated/Verified: Patient name, Date of , Relevant allergies and Intended procedure TIME OUT Intended patient and procedure match the source document(s). Correct side/site marked and visible. 06/24/2023 12:19 PM The procedure site was prepped in the usual sterile fashion. Site: bilateral greater trochanteric bursas Medications (Right): 80 mg triamcinolone acetonide 40 mg/mL Anesthetics (Right): 2 mL lidocaine (PF) 10 mg/mL (1 %) Outcome: Tolerated well, no immediate complications Post-injection instructions were reviewed with the patient and the patient voiced understanding of these instructions. Injection sites verified by Inocencia Bui LPN In past eval by neurology for myopthay and none found -continue Enbrel -stopped plaquenil due to rash of face -will give her depomedrol 80mg im today for acute joint pain - F/U in 6m Noemi Pham MD F/U: 6m Check following: -none Noemi Pham MD documented in this encounterOhio State Health System11-03-2023 Evaluation note* Encounter Date Diagnosis Assessment Notes Treatment Notes Treatment Clinical Notes May, Lateral epicondylitis of right elbow (ICD-10 - M77.11) This appears to be lateral epicondylitis (tennis elbow). We discussed all treatment options including gentle stretching and strength exercise as pain allows, use of non-steroidal anti-inflammatory medication, formal physical therapy as well as cortisone injection and surgical release. We performed a 1/1cc marcaine / kenalog cortisone injection into the right elbow under sterile technique. Patient tolerated the injection well without adverse reaction. May, Right elbow pain (ICD-10 - M25.521) [facility] Other 10-19-2023 Miscellaneous Notes* Telephone Encounter - Allison York OCCA - 05/12/2023 1:29 PM EDT Faxed [facility], patient is no longer on medication * Telephone Encounter - Refugio Mosqueda - 05/12/2023 1:16 PM EDT Ashwini from [facility] is calling Noemi Pham MD today to clarify medication. When they were filling the enbrel, it flagged that the patient has a thrombocytopenia diagnosis. They need to clarify that the provider is aware. They cannot send the medication until they get that clarification. [phone] Patient has been identified by name and birthdate. Duration of symptoms: N/A Person calling: pharmacy: [facility] Call patient at: on cell [phone] (home) [phone] (cell) Was an appointment scheduled: No Closing statement: Results or non-symptom based questions: Thank you for calling [facility], your call will be returned within the next business day. Refugio Mosqueda documented in this encounterOhio State Health System08-16-2023 Miscellaneous Notes* Telephone Encounter - Jud Hess LPN - 03/09/2023 1:59 PM EDT Patient stopped taking the Plaquenil d/t skin rash. Provider aware. * Telephone Encounter - Noemi Pham MD - 03/09/2023 1:37 PM EDT She can continue on the plaquenil bid, eye exam reviewed, no toxicity noted. Noemi Pham MD documented in this encounterOhio State Health System07-10-2023 Miscellaneous Notes* Telephone Encounter - Brianda Palomares LPN - 01/31/2023 12:27 PM EDT Lab order mailed to patient per request. * Telephone Encounter - Abby Shaw - 01/28/2023 10:39 AM EDT Patient would like a copy of the lab order(s) you wish for her to have done mailed to her. She's going to have this done at a facility closer to her. Please print and sign and mail to her. documented in this encounterOhio State Health System07-05-2023 Miscellaneous Notes* Telephone Encounter - Brianda Palomares LPN - 01/26/2023 1:53 PM EDT Mailed LEVY label to patient per Dr. Pham's request * Telephone Encounter - Noemi Pham MD - 01/26/2023 1:45 PM EDT Please mail her lab order for LEVY panel. Noemi Pham MD documented in this encounterOhio State Health System06-23-2023 NoteHNO ID: [id number] Author: Noemi Pham MD Service: ? Author Type: Physician Type: Progress Notes Filed: 01/24/2023 10:36 AM Note Text: Lynette Prince is a 41 year old female who presents for follow up: LABS RF+, elevated aldolase levels,slightly increased sed rate and crp EMG of rt upper and lower extremities- normal PREVIOUS DIAG myalgias- h/o FM - diagnosed in 2009, chronic back pain RA and 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- elevated aldolase and complaints of weakness pleurisy gastropresis Thoracic Outlet syndrome INTERVAL HISTORY since last visit,notes new onset of malar rash of face with swelling of face Joints are stiff and swollen Ankles and feet are stiff and swollen Tops of both thighs painful Sitffness getting worse No rash, ulcers, fevers, swollen lymph nodes, DVT/PE, raynauds, sicca symptoms, trouble swallowing, back pain, red eyes, Chron's/UC or Psoriasis. MEDS/THERAPIES TRIED: Plaquenil MTX- GI side effects Tied mobic- but caused hives Magnesium- for cramps, feels it has helped her migraines neurontin - did not help Imuran- never started Skelaxin - did not help Norflex- did not help Flexeril - ''knocks me out'' Enbrel - started on 11/11- feels it is helping Currently on Enbrel and plaquenil bid REVIEW OF SYSTEMS PAST MEDICAL HISTORY Diagnosis Date Fibromyalgia Hypothyroidism Migraines POTS (postural orthostatic tachycardia syndrome) Rheumatoid arthritis (HCC) No past surgical history on file. metaxalone (SKELAXIN) 800 mg tablet TAKE 1/2 TABLET BY MOUTH TWICE A DAY NEEDED hydrOXYchloroQUINE (PLAQUENIL) 200 mg tablet TAKE 1 TABLET BY MOUTH TWICE A DAY predniSONE (DELTASONE) 5 mg tablet Take 2 to 3 tabs po qd ondansetron (ZOFRAN) 4 mg tablet TAKE 1 TABLET BY MOUTH EVERY 12 HOURS NEEDED Etanercept (ENBREL) 50 mg/mL (1 mL) injection Inject 50mg sq qwkly magnesium oxide (MAG-OX) 400 mg (241.3 mg magnesium) tablet Take 1 tablet by mouth twice daily. levothyroxine (SYNTHROID) 50 mcg tablet Take 50 mcg by mouth once daily. metoprolol tartrate, short acting, (LOPRESSOR) 25 mg tablet Take 12.5 mg by mouth once daily. omeprazole (PRILOSEC) 40 mg capsule Take 40 mg by mouth once daily. topiramate (TOPAMAX) 100 mg tablet Take 100 mg by mouth daily at bedtime. ibuprofen (MOTRIN) 800 mg tablet Take 800 mg by mouth as needed. semaglutide, weight loss, (WEGOVY) 0.25 mg/0.5 mL pen injector Inject 0.25 mg subcutaneously one time a week. ARIPiprazole (ABILIFY) 2 mg tablet Take 2 mg by mouth once daily. busPIRone (BUSPAR) 10 mg tablet Take 10 mg by mouth three times daily. COMPOUNDED PRESCRIPTION Handicapped placard Diagnosis- RA Cannot walk >200 ft Duration- 3 yrs sertraline (ZOLOFT) 100 mg tablet Take 100 mg by mouth once daily. methylPREDNISolone (MEDROL, MARYBEL,) 4 mg Dose-Pack As Instructed per package (Patient not taking: Reported on 01/14/2023) No family history on file. Social History Tobacco Use Smoking status: Never Smokeless tobacco: Never Substance Use Topics Alcohol use: Yes Comment: Occasional Drug use: Never BP 122/81 Pulse 103 Ht 167.6 cm (5' 6 ) Wt 105.7 kg (233 lb) BMI 37.61 kg/m? PE; ambulates well, pelasent mood Appears to be in no distress, very pleasant Pain on palpation of all joints No synovitis noted MOST RECENT LABS: REVIEWED WITH PATIENT IMP/PLAN: RA/FM- Since last visit eval by neurology for myopthay and none found Patient concerned about new malar rash and worsening joint pain -will stop Enbrel for possible drug induced SLE -check labs for drug induced lupus -continue plaquenil -will give her depomedrol 80mg im today for acute joint pain - F/U in 6m Noemi Pham MD F/U: 6m Check following: -none Noemi Pham [facility]06-21-2023 Miscellaneous Notes* Telephone Encounter - Noemi Pham MD - 01/12/2023 8:31 AM EDT The following approved medication requests have been transmitted electronically. Requested Prescriptions Pending Prescriptions Disp Refills metaxalone (SKELAXIN) 800 mg tablet [Pharmacy Med Name: METAXALONE 800 MG TABLET] 30 tablet 1 Sig: TAKE 1/2 TABLET BY MOUTH TWICE A DAY NEEDED Noemi Pham MD * Telephone Encounter - Jud Hess CLOTH WEIGHER - 01/11/2023 9:41 AM EDT Most recent Rheumatology visit: 08/11/2022 (with Noemi Pham) Recent Office Visits - This Specialty 08/11/2022 Rheumatoid arthritis involving multiple sites, unspecified whether rheumatoid factor present (HCC) Rheumatology Noemi Pham MD 08/19/2021 Rheumatoid arthritis of multiple sites with negative rheumatoid factor (HCC) Rheumatology Noemi Pham MD 02/11/2021 Pain of right upper extremity Rheumatology Noemi Pham MD Upcoming Rheumatology Appointments - Next 365 Days Visit Type Date Time Department [facility] MEDICAL 01/14/2023 11:00 AM [facility] REJ Last Ophthalmology Check for Plaquenil (Hydroxychloroquine) Last OCT Macula Exam No resulted procedures found. Last Visual Field Exam No resulted procedures found. CBC: CBC Latest Ref Rng & Units 06/07/2018 08/11/2022 WBC 3.70 - 11.00 k/uL 8.35 9.49 HEMOGLOBIN 11.5 - 15.5 g/dL 14.4 15.2 HEMATOCRIT 36.0 - 46.0 % 40.3 44.1 PLATELETS 150 - 400 k/uL 237 205 ABS NEUT (ANC) 1.45 - 7.50 k/uL - - ABS LYMPH 1.00 - 4.00 k/uL - - Vitamin D: None on file in the last 6 months LFT: CMP Latest Ref Rng & Units 06/07/2018 08/11/2022 SODIUM 136 - 144 mmol/L 140 140 POTASSIUM 3.7 - 5.1 mmol/L 3.8 4.7 CHLORIDE 97 - 105 mmol/L 102 102 CO2 22 - 30 mmol/L 26 29 GLUCOSE 74 - 99 mg/dL 100(H) 97 BUN 7 - 21 mg/dL 10 15 CREATININE 0.58 - 0.96 mg/dL 0.90 0.93 CALCIUM, TOTAL 8.5 - 10.2 mg/dL 9.4 10.5(H) AST 13 - 35 U/L 23 26 ALT 7 - 38 U/L 27 32 ALKALINE PHOSPHATASE 34 - 123 U/L 45 44 Hepatic Function: Creatinine: Creatinine Latest Ref Rng & Units 06/07/2018 08/11/2022 CREAT 0.58 - 0.96 mg/dL 0.90 0.93 ESR/CRP: ESR, WSR Latest Ref Rng & Units 10/17/2019 08/11/2022 WSR 0 - 20 mm/hr 26(H) 23(H) CRP Latest Ref Rng & Units 10/17/2019 08/11/2022 CRP <0.9 mg/dL 1.1(H) 0.8 Uric Acid: None on file in the last 6 months Open Standing (Multiple Instance) Lab Orders None Open Future (Single Instance) Lab Orders None documented in this encounterOhio State Health System06-02-2023 NoteHNO ID: [id number] Author: Liz Connolly MD Service: ? Author Type: Physician Type: Progress Notes Filed: 01/04/2023 10:43 AM Note Text: [facility] [place] [facility] Note- Established patient Provider: Liz Connolly MD Date of last clinic visit: 03/25/2021 History Since Last Evaluation: Here for follow-up evaluation of diffuse/multifocal myalgias (previous suspicion for myofascial pain dysfunction syndrome). Active issues: Since LCV, she describes having interval progression of previously elaborated symptoms constellation including exertion-triggered myalgias, muscle tightness, generalized fatigue. Predominant myalgic areas include back, neck, but also describing intermixed arthralgic symptoms at the ankles, at the wrist and fingers (including tendency for fingers to swell to the point where she has difficulty removing her rings that are normally loose over the past year or so). The collection of myalgic/polyarthralgia pain symptoms average ~5/10 in intensity. 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 The patient also describes a tendency for marked pain in both feet- aching quality that seems to be significantly worse when on her feet, even if she is wearing well cushioned shoes like tennis shoes. 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 She says that her daughter was diagnosed with lupus last year (while in her 20s) and is now on rituximab, and the patient has concerns that she may be having similar features, including a new tendency to have a facial rash mostly over her cheeks, especially when sun-exposed (shows a picture of this on her phone). These skin changes tend to occur every 1 to 2 months, and has been a new feature over the past year or so. Ongoing/worsening snoring appears to be occurring (as reported by her ), together with the generalized fatigue/daytime hypersomnolence and unrefreshed feeling even after sleep, as previously indicated. Unfortunately, she was not able to follow-up with her local sleep medicine provider, despite not being able to be adherent with CPAP for MARINE (previously diagnosed at moderate degree), especially since the mask seems to slip off her face when she side-sleeps. There is also been weight gain since LCV (going from 223 pounds to about 235 pounds), stating that she carries a diagnosis of prediabetes and was told that she has insulin resistance with acanthosis nigricans. She had seen Dr. Pham last in 07/2022, with lab work been redemonstrating a similarly slightly elevated level of aldolase, CK is normal. She had these labs repeated locally on 11/05/2022, and both were in the normal range (detailed below). Meds and allergies as listed (below and above, respectively) Current Outpatient Medications Medication Sig Metaxalone 400 mg tab One tab po bid prn hydrOXYchloroQUINE (PLAQUENIL) 200 mg tablet TAKE 1 TABLET BY MOUTH TWICE A DAY predniSONE (DELTASONE) 5 mg tablet Take 2 to 3 tabs po qd ondansetron (ZOFRAN) 4 mg tablet TAKE 1 TABLET BY MOUTH EVERY 12 HOURS NEEDED methylPREDNISolone (MEDROL, MARYBEL,) 4 mg Dose-Pack As Instructed per package Etanercept (ENBREL) 50 mg/mL (1 mL) injection Inject 50mg sq qwkly magnesium oxide (MAG-OX) 400 mg (241.3 mg magnesium) tablet Take 1 tablet by mouth twice daily. levothyroxine (SYNTHROID) 50 mcg tablet Take 50 mcg by mouth once daily. metoprolol tartrate, short acting, (LOPRESSOR) 25 mg tablet Take 12.5 mg by mouth once daily. omeprazole (PRILOSEC) 40 mg capsule Take 40 mg by mouth once daily. topiramate (TOPAMAX) 100 mg tablet Take 100 mg by mouth daily at bedtime. ibuprofen (MOTRIN) 800 mg tablet Take 800 mg by mouth as needed. semaglutide, weight loss, (WEGOVY) 0.25 mg/0.5 mL pen injector Inject 0.25 mg subcutaneously one time a week. ARIPiprazole (ABILIFY) 2 mg tablet Take 2 mg by mouth once daily. busPIRone (BUSPAR) 10 mg tablet Take 10 mg by mouth three times daily. COMPOUNDED PRESCRIPTION Handicapped placard Diagnosis- RA Cannot walk >200 ft Duration- 3 yrs sertraline (ZOLOFT) 100 mg tablet Take 100 mg by mouth once daily. No current facility-administered medications for this visit. No new details in the family history or social history were offered by the patient. Review of symptoms including constitutional, eyes, ENT, neck, respiratory, cardiovascular, GI, (more content not included)...[facility] 12-24-2022 NoteHNO ID: [id number] Author: Alejo Marshall MD Service: ? Author Type: Physician Type: Progress Notes Filed: 12/24/2022 11:22 AM Note Text: UNIVERSAL PROTOCOL / SAFETY CHECKLIST Procedure to be Performed: EMG Sign In: A Moment of CARE was completed. Personnel directly involved with the procedure wore the appropriate PPE (Personal Protective Equipment). Patient/Surrogate Stated/Verified: PATIENT VERIFIED(optional for EMERGENT procedures): Patient name, Date of , Relevant allergies, and The intended procedure Time Out Communication: Intended patient and procedure match the source documents. Correct side/site marked and visible. Sign Out: SIGN OUT (optional for EMERGENT procedures): Post-procedure follow-up management communicated and Plan of Care Visit completed when applicable. Megan Marshall, [facility]06-02-2023 History of Present illness Narrative* Alejo Marshall MD - 12/24/2022 10:17 AM EDT UNIVERSAL PROTOCOL / SAFETY CHECKLIST Procedure to be Performed: EMG Sign In: A Moment of CARE was completed. Personnel directly involved with the procedure wore the appropriate PPE (Personal Protective Equipment). Patient/Surrogate Stated/Verified: PATIENT VERIFIED(optional for EMERGENT procedures): Patient name, Date of , Relevant allergies, and The intended procedure Time Out Communication: Intended patient and procedure match the source documents. Correct side/site marked and visible. Sign Out: SIGN OUT (optional for EMERGENT procedures): Post-procedure follow-up management communicated and Plan of Care Visit completed when applicable. Megan Marshall MD documented in this encounterOhio State Health System05-10-2023 Miscellaneous Notes* Telephone Encounter - Inocencia Bui LPN - 12/01/2022 3:25 PM EDT Prior authorization for Enbrel initiated on Cover My Meds. Pending. documented in this encounterOhio State Health System05-02-2023 Miscellaneous Notes* Telephone Encounter - Brianna Murray RN - 11/23/2022 9:22 AM EDT Patient has appointment with Dr. Connolly on 12/24/22 and is asking if any tests should be done prior her appointment. Patient was referred by Dr. Pham ( [facility] Patient c/o of increased muscle weakness. Last EMG was done in 09/2018: Study Interpretation Extensive electrodiagnostic examination of the right lower and upper extremities and related paraspinal muscles reveals no abnomalities. Specifically, there is no evidence of a generalized myopathy, cervical motor radiculopathy or lumbosacral motor radiculopathy. The opposite side was not studied by needle electrode examination in case muscle biopsy is contemplated. Noted stable increase in Adolase, blood, level. Recent (08/11/2022)- 9.9 units/L Brianna Murray, RN documented in this encounterOhio State Health System04-24-2023 Miscellaneous Notes* Telephone Encounter - Noemi Pham MD - 11/15/2022 1:22 PM EDT Please tell her I received labs from [facility] and her cpk and aldolase returned normal . (CPK was 11 and aldolase 5.0 Noemi Pham MD documented in this encounterOhio State Health System04-05-2023 Miscellaneous Notes* Telephone Encounter - Inocencia Bui LPN - 10/27/2022 9:44 AM EDT Please advise. documented in this encounterOhio State Health System03-13-2023 Miscellaneous Notes* Telephone Encounter - Noemi Pham MD - 10/04/2022 11:06 AM EDT The following approved medication requests have been transmitted electronically. Requested Prescriptions Pending Prescriptions Disp Refills hydrOXYchloroQUINE (PLAQUENIL) 200 mg tablet [Pharmacy Med Name: HYDROXYCHLOROQUINE 200 MG TAB] 60 tablet 3 Sig: TAKE 1 TABLET BY MOUTH TWICE A DAY Noemi Pham MD I gave her refill but she needs to have eye exam KIMBERLY if she wants future refills. * Telephone Encounter - Brianda Palomares LPN - 10/04/2022 10:41 AM EDT Most recent Rheumatology visit: 08/11/2022 (with Noemi Pham) Recent Office Visits - This Specialty 08/11/2022 Rheumatoid arthritis involving multiple sites, unspecified whether rheumatoid factor present (HCC) Rheumatology Noemi Pham MD 08/19/2021 Rheumatoid arthritis of multiple sites with negative rheumatoid factor (HCC) Rheumatology Noemi Pham MD 02/11/2021 Pain of right upper extremity Rheumatology Noemi Pham MD Upcoming Rheumatology Appointments - Next 365 Days Visit Type Date Time Department [facility] 02/16/2023 11:20 AM [facility] REJ Last Ophthalmology Check for Plaquenil (Hydroxychloroquine) Last OCT Macula Exam No resulted procedures found. Last Visual Field Exam No resulted procedures found. CBC: CBC Latest Ref Rng & Units 06/07/2018 08/11/2022 WBC 3.70 - 11.00 k/uL 8.35 9.49 HEMOGLOBIN 11.5 - 15.5 g/dL 14.4 15.2 HEMATOCRIT 36.0 - 46.0 % 40.3 44.1 PLATELETS 150 - 400 k/uL 237 205 ABS NEUT (ANC) 1.45 - 7.50 k/uL - - ABS LYMPH 1.00 - 4.00 k/uL - - Vitamin D: None on file in the last 6 months LFT: CMP Latest Ref Rng & Units 06/07/2018 08/11/2022 SODIUM 136 - 144 mmol/L 140 140 POTASSIUM 3.7 - 5.1 mmol/L 3.8 4.7 CHLORIDE 97 - 105 mmol/L 102 102 CO2 22 - 30 mmol/L 26 29 GLUCOSE 74 - 99 mg/dL 100(H) 97 BUN 7 - 21 mg/dL 10 15 CREATININE 0.58 - 0.96 mg/dL 0.90 0.93 CALCIUM, TOTAL 8.5 - 10.2 mg/dL 9.4 10.5(H) AST 13 - 35 U/L 23 26 ALT 7 - 38 U/L 27 32 ALKALINE PHOSPHATASE 34 - 123 U/L 45 44 Creatinine: Creatinine Latest Ref Rng & Units 06/07/2018 08/11/2022 CREAT 0.58 - 0.96 mg/dL 0.90 0.93 ESR/CRP: ESR, WSR Latest Ref Rng & Units 10/17/2019 08/11/2022 WSR 0 - 20 mm/hr 26(H) 23(H) CRP Latest Ref Rng & Units 10/17/2019 08/11/2022 CRP <0.9 mg/dL 1.1(H) 0.8 Uric Acid: None on file in the last 6 months Open Standing (Multiple Instance) Lab Orders None Open Future (Single Instance) Lab Orders None documented in this encounterOhio State Health System02-15-2023 [facility] Follow-Up Patient Visit CHIEF COMPLAINT Chief Complaint Patient presents with Follow-up Diarrhea HISTORY OF PRESENT ILLNESS: Lynette Hairston is a 47 y.o. female established patient. Summary of old records: Per HPI from 05/26/22 Lynette Hairston is a 46 y.o. female with PMH of gastroparesis, fatty liver, migraine headache, RA (follows with rheumatology in [place]), anxiety, POTS and IBS. She was last seen in the clinic Jul 2020 for further evaluation of elevated liver enzymes. Today, she presents for further evaluation of diarrhea. has been having diarrhea for years but urgency/incontinence is new. Previous work up for her liver was negative for viral hepatitis, and pointed away from AIH. There was some thought that the elevated liver enzymes may be due to fatty liver. IN the past, Ms Hairston has undergone extensive work up for the diarrhea. EGD Jul 2019 showed gastric polyps and erosive gastropathy. No evidence of varices. colonoscopy Jul 2019 showed internal hemorrhoids, but was othewise negative. Family history include a son with Crohns. Today, she reports loose stools with urgency. Urgency is worse after eating. If she does not eat, she does not have diarrhea. States stool look pale . Usually stools are BSS 7, but sometimes are BSS4. Denies blood in the stool Denies weight loss. She questions of the Ozempic is contributing to her symptoms. INTERVAL HISTORY:09/08/22 Work up from the last visit showed normal transaminases. Stool studies were negative for infection calpro was normal. Today, Lynette reports reporting to the ER 09/06/21 for chest pain. States she was diagnosed with coronary artery vasospasm. She reports ongoing diarrhea with occasional incontinence. Reports ongoing attacks of IBS with abdominal pain and diarrhea. Stools are never formed, and tend to be greasy. States her daughter was recently diagnosed with pancreatic insufficency. PREVIOUS LABS/IMAGING/ENDOSCOPY: EGD Jul 2019 showed gastric polyps and erosive gastropathy. No evidence of varices. colonoscopy Jul 2019 showed internal hemorrhoids, but was othewise negative. HISTORY: Problem list: Patient Active Problem List Diagnosis Abnormal electrocardiography Abnormal stress test Anxiety Asthma without status asthmaticus Autoimmune disease (CMS/HCC) Rheumatoid arthritis (CMS/HCC) Bilateral occipital neuralgia Bloating Abdominal pain Chest pain of uncertain etiology Cervicalgia Chronic pain Fibromyalgia Headache Coronary artery vasospasm (CMS/HCC) Daytime sleepiness Endometriosis Fatigue Gastroesophageal reflux disease Gastroparesis Hematochezia History of hypothyroidism Status post hysterectomy History of vitamin D deficiency HTN (hypertension) Hypercholesterolemia Acquired hypothyroidism Hypothyroidism Thyroid nodule Incontinence without sensory awareness Insulin resistance Intermittent palpitations Intractable migraine equivalent Low grade squamous intraepithelial lesion (LGSIL) on cervicovaginal cytologic smear Mitral valve disorder Migraine headache Metabolic syndrome X Melena Benign fasciculations Muscle twitching Myalgia Myofascial pain dysfunction syndrome Nausea Non-restorative sleep Paresthesias Occult blood in stools Obstructive sleep apnea syndrome Obesity (BMI 30-39.9) Obesity, Class I, BMI 30-34.9 Periodic limb movement disorder Peripheral vertigo Polycystic ovaries Postural orthostatic tachycardia syndrome Status post appendectomy, follow-up exam Sleep disturbances Shortness of breath on exertion Sequela of infectious disease Regurgitation of stomach contents Status post cholecystectomy Strain of flexor muscle of hip Transient diplopia Trapezius muscle spasm Vertigo Vitamin D deficiency Past Medical History: History reviewed. No pertinent past medical history. Past Surgical History: Past Surgical History: Procedure Laterality Date CT CHEST ANGIOGRAM W AND/OR WO IV CONTRAST 06/27/2020 CT CHEST ANGIOGRAM W AND/OR WO IV CONTRAST 06/27/2020 FAMILY HISTORY: No family history on file. SOCIAL HISTORY: Social History Tobacco Use Smoking status: Never Smokeless tobacco: Never Vaping Use Vaping Use: Never used Substance Use Topics Alcohol use: Yes Comment: occasionally Drug use: Never ALLERGIES: Meloxicam, Methotrexate, and Isosorbide mononitrate Current Medications: Current Outpatient Medications: amLODIPine (Norvasc) 2.5 mg tablet, Take 2.5 mg by mouth in the morning., Disp: , Rfl: ARIPiprazole (Abilify) 5 mg tablet, Take 5 mg by mouth in the morning., Disp: , Rfl: aspirin 81 mg EC tablet, Take 81 mg by mouth in the morning., Disp: , Rfl: atorvastatin (Lipitor) 20 mg tablet, in the morning., Disp: , Rfl: busPIRone (Buspar) 10 mg tablet, buspirone 10 mg tablet, Disp: , Rfl: etanercept (EnbreL) 50 mg/mL (1 mL) injection, 1 ml, Dis (more content not included)...[facility]01-18-2023 NoteHNO ID: [id number] Author: Jud Hess LPN Service: ? Author Type: ? Type: Progress Notes Filed: 08/11/2022 11:22 AM Note Text: Patient given Depomedrol 80 mg IM in the left upper quadrant gluteus. Patient tolerated injection well. Lot#: [id number] Exp date: 03/23/2024 [facility] NoteHNO ID: [id number] Author: Inocencia Bui LPN Service: ? Author Type: ? Type: Progress Notes Filed: 08/11/2022 10:21 AM Note Text: Methylprednisolone injection verified. 80mg.[facility]01-18-2023 NoteHNO ID: [id number] Author: Noemi Pham MD Service: ? Author Type: Physician Type: Progress Notes Filed: 08/11/2022 10:21 AM Note Text: Lynette Prince is a 41 year old female who presents for follow up: LABS RF+, elevated aldolase levels,slightly increased sed rate and crp EMG of rt upper and lower extremities- normal PREVIOUS DIAG myalgias- h/o FM - diagnosed in 2009, chronic back pain New diagnosis of RA and 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- elevated aldolase and complaints of weakness New onset of pleurisy New onset gastropresis New onset flushing of cheeks Newly diagnosed with Thoracic Outlet syndrome INTERVAL HISTORY since last visit,restarted on the plaquenil due to increasing arthralgias. Now has pain in both hips, both ankles and both shoulders Tired all the time. em stiffness- few minutes Fingers are fat and swollen No rash, ulcers, fevers, swollen lymph nodes, DVT/PE, raynauds, sicca symptoms, trouble swallowing, back pain, red eyes, Chron's/UC or Psoriasis. MEDS/THERAPIES TRIED: Plaquenil MTX- GI side effects Tied mobic- but caused hives Has weaned off the prednisone, has severe fatigue Muscle cramps- tried magnesium, feels it has helped her migraines neurontin - did not help Imuran- never started Skelaxin - did not help Norflex- did not help Flexeril - ''knocks me out'' Enbrel - started on 11/11- feels it is helping Currently on Enbrel and plaquenil bid REVIEW OF SYSTEMS Answers for HPI/ROS submitted by the patient on 07/30/2020 Fever : No Recent Unintentional Weight Change: No Eye Pain: No Eye Redness: No Vision Disturbance: No Eye Dryness: No Nose Bleeds: No Sores in your Mouth: No Trouble Swallowing: No Dry Mouth: No Chest Pain: Yes Leg Swelling: No A Cough: No Shortness of Breath: Yes Pain with Breathing: No Heartburn: No Abdominal Pain: Yes Diarrhea: No Black Tarry Stools: No Blood in Urine: No Pain or Burning with Urination: No Joint Pain or Stiffness: Yes Muscle Weakness: Yes Muscle Aches: Yes Joint Swelling: No Morning Stiffness in Joints: No A Rash: No Skin Color Changes: No Hair Loss: No Nail Changes: No Headaches: Yes Numbness: No Memory Loss: Yes Swollen Glands: No . PAST MEDICAL HISTORY Diagnosis Date Fibromyalgia Hypothyroidism Migraines POTS (postural orthostatic tachycardia syndrome) Rheumatoid arthritis (HCC) No past surgical history on file. hydrOXYchloroQUINE (PLAQUENIL) 200 mg tablet Take 1 tablet by mouth twice daily. ondansetron (ZOFRAN) 4 mg tablet TAKE 1 TABLET BY MOUTH EVERY 12 HOURS NEEDED methylPREDNISolone (MEDROL, MARYBEL,) 4 mg Dose-Pack As Instructed per package Etanercept (ENBREL) 50 mg/mL (1 mL) injection Inject 50mg sq qwkly magnesium oxide (MAG-OX) 400 mg (241.3 mg magnesium) tablet Take 1 tablet by mouth twice daily. levothyroxine (SYNTHROID) 50 mcg tablet Take 50 mcg by mouth once daily. metoprolol tartrate, short acting, (LOPRESSOR) 25 mg tablet Take 12.5 mg by mouth once daily. omeprazole (PRILOSEC) 40 mg capsule Take 40 mg by mouth once daily. topiramate (TOPAMAX) 100 mg tablet Take 100 mg by mouth daily at bedtime. ibuprofen (MOTRIN) 800 mg tablet Take 800 mg by mouth as needed. semaglutide, weight loss, (WEGOVY) 0.25 mg/0.5 mL pen injector Inject 0.25 mg subcutaneously one time a week. ARIPiprazole (ABILIFY) 2 mg tablet Take 2 mg by mouth once daily. busPIRone (BUSPAR) 10 mg tablet Take 10 mg by mouth three times daily. COMPOUNDED PRESCRIPTION Handicapped placard Diagnosis- RA Cannot walk >200 ft Duration- 3 yrs sertraline (ZOLOFT) 100 mg tablet Take 100 mg by mouth once daily. No family history on file. Social History Tobacco Use Smoking status: Never Smokeless tobacco: Never Substance Use Topics Alcohol use: Yes Comment: Occasional Drug use: Never BP 118/73 Pulse 94 Wt 102.5 kg (226 lb) BMI 36.48 kg/m? PE; LIMITED IT IS VV Appears to be in no distress, very pleasant Pain on palpation of all joints No synovitis noted Pain over bilateral trochanteric bursa MOST RECENT LABS: REVIEWED WITH PATIENT IMP/PLAN: RA/FM- worsening arthralgias today -restarted plaquenil as joint pain worsening . -Will continue the Enbrel -.continue plaquenil - start low dose prednisone at 5mg po every day , increase to 10-15mg po every day -depomedrol injection today -handicapped placard today -check labs today F/U in 6m Noemi Pham MD F/U: 6m Check following: -none Noemi Pham, [facility]01-18-2023 History of Present illness Narrative* Jud Hess LPN - 08/11/2022 11:21 AM EST Patient given Depomedrol 80 mg IM in the left upper quadrant gluteus. Patient tolerated injection well. Lot#: [id number] Exp date: 03/23/2024 Jud Hess LPN * Inocencia Bui LPN - 08/11/2022 10:07 AM EST Methylprednisolone injection verified. 80mg. * Noemi Pham MD - 08/11/2022 9:57 AM EST Lynette Prince is a 41 year old female who presents for follow up: LABS RF+, elevated aldolase levels,slightly increased sed rate and crp EMG of rt upper and lower extremities- normal PREVIOUS DIAG myalgias- h/o FM - diagnosed in 2009, chronic back pain New diagnosis of RA and 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- elevated aldolase and complaints of weakness New onset of pleurisy New onset gastropresis New onset flushing of cheeks Newly diagnosed with Thoracic Outlet syndrome INTERVAL HISTORY since last visit,restarted on the plaquenil due to increasing arthralgias. Now has pain in both hips, both ankles and both shoulders Tired all the time. em stiffness- few minutes Fingers are fat and swollen No rash, ulcers, fevers, swollen lymph nodes, DVT/PE, raynauds, sicca symptoms, trouble swallowing, back pain, red eyes, Chron's/UC or Psoriasis. MEDS/THERAPIES TRIED: Plaquenil MTX- GI side effects Tied mobic- but caused hives Has weaned off the prednisone, has severe fatigue Muscle cramps- tried magnesium, feels it has helped her migraines neurontin - did not help Imuran- never started Skelaxin - did not help Norflex- did not help Flexeril - ''knocks me out'' Enbrel - started on 11/11- feels it is helping Currently on Enbrel and plaquenil bid REVIEW OF SYSTEMS Answers for HPI/ROS submitted by the patient on 07/30/2020 Fever : No Recent Unintentional Weight Change: No Eye Pain: No Eye Redness: No Vision Disturbance: No Eye Dryness: No Nose Bleeds: No Sores in your Mouth: No Trouble Swallowing: No Dry Mouth: No Chest Pain: Yes Leg Swelling: No A Cough: No Shortness of Breath: Yes Pain with Breathing: No Heartburn: No Abdominal Pain: Yes Diarrhea: No Black Tarry Stools: No Blood in Urine: No Pain or Burning with Urination: No Joint Pain or Stiffness: Yes Muscle Weakness: Yes Muscle Aches: Yes Joint Swelling: No Morning Stiffness in Joints: No A Rash: No Skin Color Changes: No Hair Loss: No Nail Changes: No Headaches: Yes Numbness: No Memory Loss: Yes Swollen Glands: No . PAST MEDICAL HISTORY Diagnosis Date Fibromyalgia Hypothyroidism Migraines POTS (postural orthostatic tachycardia syndrome) Rheumatoid arthritis (HCC) No past surgical history on file. hydrOXYchloroQUINE (PLAQUENIL) 200 mg tablet Take 1 tablet by mouth twice daily. ondansetron (ZOFRAN) 4 mg tablet TAKE 1 TABLET BY MOUTH EVERY 12 HOURS NEEDED methylPREDNISolone (MEDROL, MARYBEL,) 4 mg Dose-Pack As Instructed per package Etanercept (ENBREL) 50 mg/mL (1 mL) injection Inject 50mg sq qwkly magnesium oxide (MAG-OX) 400 mg (241.3 mg magnesium) tablet Take 1 tablet by mouth twice daily. levothyroxine (SYNTHROID) 50 mcg tablet Take 50 mcg by mouth once daily. metoprolol tartrate, short acting, (LOPRESSOR) 25 mg tablet Take 12.5 mg by mouth once daily. omeprazole (PRILOSEC) 40 mg capsule Take 40 mg by mouth once daily. topiramate (TOPAMAX) 100 mg tablet Take 100 mg by mouth daily at bedtime. ibuprofen (MOTRIN) 800 mg tablet Take 800 mg by mouth as needed. semaglutide, weight loss, (WEGOVY) 0.25 mg/0.5 mL pen injector Inject 0.25 mg subcutaneously one time a week. ARIPiprazole (ABILIFY) 2 mg tablet Take 2 mg by mouth once daily. busPIRone (BUSPAR) 10 mg tablet Take 10 mg by mouth three times daily. COMPOUNDED PRESCRIPTION Handicapped placard Diagnosis- RA Cannot walk >200 ft Duration- 3 yrs sertraline (ZOLOFT) 100 mg tablet Take 100 mg by mouth once daily. No family history on file. Social History Tobacco Use Smoking status: Never Smokeless tobacco: Never Substance Use Topics Alcohol use: Yes Comment: Occasional Drug use: Never BP 118/73 Pulse 94 Wt 102.5 kg (226 lb) BMI 36.48 kg/m PE; LIMITED IT IS VV Appears to be in no distress, very pleasant Pain on palpation of all joints No synovitis noted Pain over bilateral trochanteric bursa MOST RECENT LABS: REVIEWED WITH PATIENT IMP/PLAN: RA/FM- worsening arthralgias today -restarted plaquenil as joint pain worsening . -Will continue the Enbrel -.continue plaquenil - start low dose prednisone at 5mg po every day , increase to 10-15mg po every day -depomedrol injection today -handicapped placard today -check labs today F/U in 6m Noemi Pham MD F/U: 6m Check following: -none Noemi Pham MD documented in this encounterOhio State Health System11-21-2022 Miscellaneous Notes* Telephone Encounter - Inocencia Bui LPN - 06/14/2022 3:35 PM EST Mohsen Prince Felder: [id number] - PA - Rx #: [id number] help? Call us at Outcome Approvedon June 11 CaseId:[id number];Status:Approved;Review Type:Prior Auth;Coverage Start Date:05/12/2022;Coverage End Date:06/11/2023; * Telephone Encounter - Jud Hess LPN - 06/11/2022 11:22 AM EST PA for Enbrel submitted via Cover My Meds this date. If approved new Rx will need sent to [facility]. * Telephone Encounter - Diana Stanley - 06/04/2022 9:59 AM EST Lynette Meade Crescencio called today. : 1975 Allergies: Meloxicam and Methotrexate (home) [phone] (cell) Reason for call: patient states she spoke with [facility] [facility] requesting additional info for medication For ENBREL Please advise Patient last appointment: 05/29/2022 The patients preferred pharmacy has been captured for this encounter? yes RHODA STARR documented in this encounterOhio State Health System11-10-2022 Miscellaneous Notes* Telephone Encounter - Inocenica Bui LPN - 06/03/2022 9:36 AM EST Follow up message from 05/17/22 encounter and orders. documented in this encounterOhio State Health System11-07-2022 Miscellaneous Notes* Telephone Encounter - Linnea Sanders Ma - 05/31/2022 4:25 PM EST Done by escript. * Telephone Encounter - Noemi Pham MD - 05/31/2022 3:18 PM EST The following approved medication requests have been transmitted electronically. Requested Prescriptions Signed Prescriptions Disp Refills ondansetron (ZOFRAN) 4 mg tablet 30 tablet 2 Sig: TAKE 1 TABLET BY MOUTH EVERY 12 HOURS NEEDED Authorizing Provider: NOEMI PHAM MD * Telephone Encounter - Inocencia Bui LPN - 05/31/2022 1:12 PM EST Most recent Rheumatology visit: 08/19/2021 (with Noemi Pham) Recent Office Visits - This Specialty 08/19/2021 Rheumatoid arthritis of multiple sites with negative rheumatoid factor (HCC) Rheumatology Noemi Pham MD 02/11/2021 Pain of right upper extremity Rheumatology Noemi Pham MD 07/30/2020 Rheumatoid arthritis of multiple sites with negative rheumatoid factor (HCC) Rheumatology Noemi Pham MD Upcoming Rheumatology Appointments - Next 365 Days Visit Type Date Time Department [facility] 10/20/2022 9:40 AM [facility] RE[facility] CBC: None on file in the last 6 months Vitamin D: None on file in the last 6 months LFT: None on file in the last 6 months Creatinine:None on file in the last 6 months ESR/CRP: None on file in the last 6 months Uric Acid: None on file in the last 6 months Open Standing (Multiple Instance) Lab Orders None Open Future (Single Instance) Lab Orders None documented in this encounterOhio State Health System11-02-2022 [facility] Follow-Up Patient Visit CHIEF COMPLAINT Chief Complaint Patient presents with Diarrhea Follow-up Patient states she has randomly lost control of her bowels in the recent weeks. HISTORY OF PRESENT ILLNESS: Lynette Hairston is a 46 y.o. female with PMH of gastroparesis, fatty liver, migraine headache, RA (follows with rheumatology in [place]), anxiety, POTS and IBS. She was last seen in the clinic Jul 2020 for further evaluation of elevated liver enzymes. Today, she presents for further evaluation of diarrhea. States has been having diarrhea for years but urgency/incontinence is new. Previous work up for her liver was negative for viral hepatitis, and pointed away from AIH. There was some thought that the elevated liver enzymes may be due to fatty liver. IN the past, Ms Hairston has undergone extensive work up for the diarrhea. EGD Jul 2019 showed gastric polyps and erosive gastropathy. No evidence of varices. colonoscopy Jul 2019 showed internal hemorrhoids, but was othewise negative. Family history include a son with Crohns. Today, she reports loose stools with urgency. Urgency is worse after eating. If she does not eat, she does not have diarrhea. States stool look pale . Usually stools are BSS 7, but sometimes are BSS4. Denies blood in the stool Denies weight loss. She questions of the Ozempic is contributing to her symptoms. HISTORY: Problem list: Patient Active Problem List Diagnosis Abnormal electrocardiography Abnormal stress test Anxiety Asthma without status asthmaticus Autoimmune disease (CMS/HCC) Rheumatoid arthritis (CMS/HCC) Bilateral occipital neuralgia Bloating Abdominal pain Chest pain of uncertain etiology Cervicalgia Chronic pain Fibromyalgia Headache Coronary artery vasospasm (CMS/HCC) Daytime sleepiness Endometriosis Fatigue Gastroesophageal reflux disease Gastroparesis Hematochezia History of hypothyroidism Status post hysterectomy History of vitamin D deficiency HTN (hypertension) Hypercholesterolemia Acquired hypothyroidism Hypothyroidism Thyroid nodule Incontinence without sensory awareness Insulin resistance Intermittent palpitations Intractable migraine equivalent Low grade squamous intraepithelial lesion (LGSIL) on cervicovaginal cytologic smear Mitral valve disorder Migraine headache Metabolic syndrome X Melena Benign fasciculations Muscle twitching Myalgia Myofascial pain dysfunction syndrome Nausea Non-restorative sleep Paresthesias Occult blood in stools Obstructive sleep apnea syndrome Obesity (BMI 30-39.9) Obesity, Class I, BMI 30-34.9 Periodic limb movement disorder Peripheral vertigo Polycystic ovaries Postural orthostatic tachycardia syndrome Status post appendectomy, follow-up exam Sleep disturbances Shortness of breath on exertion Sequela of infectious disease Regurgitation of stomach contents Status post cholecystectomy Strain of flexor muscle of hip Transient diplopia Trapezius muscle spasm Vertigo Vitamin D deficiency Past Medical History: History reviewed. No pertinent past medical history. Past Surgical History: Past Surgical History: Procedure Laterality Date CT CHEST ANGIOGRAM W AND/OR WO IV CONTRAST 06/27/2020 CT CHEST ANGIOGRAM W AND/OR WO IV CONTRAST 06/27/2020 FAMILY HISTORY: No family history on file. Crohns' - son SOCIAL HISTORY: Social History Tobacco Use Smoking status: Never Smokeless tobacco: Never Vaping Use Vaping Use: Never used Substance Use Topics Alcohol use: Yes Comment: occasionally Drug use: Never ALLERGIES: Meloxicam, Methotrexate, and Isosorbide mononitrate Current Medications: Current Outpatient Medications: amLODIPine (Norvasc) 2.5 mg tablet, Take 2.5 mg by mouth in the morning., Disp: , Rfl: ARIPiprazole (Abilify) 2 mg tablet, 1 (one) time each day at the same time., Disp: , Rfl: ARIPiprazole (Abilify) 5 mg tablet, Take 5 mg by mouth in the morning., Disp: , Rfl: aspirin 81 mg EC tablet, Take 81 mg by mouth in the morning., Disp: , Rfl: BENZONATATE ORAL, , Disp: , Rfl: bupivacaine HCl (Marcaine) 0.5 % (5 mg/mL) injection, Apply 25 mg to teeth., Disp: , Rfl: busPIRone (Buspar) 10 mg tablet, buspirone 10 mg tablet, Disp: , Rfl: etanercept (EnbreL) 50 mg/mL (1 mL) injection, 1 ml, Disp: , Rfl: hydroxychloroquine (PlaqueniL) 200 mg tablet, Take 200 mg by mouth., Disp: , Rfl: hydroxychloroquine sulfate (PLAQUENIL ORAL), 200 mg., Disp: , Rfl: ibuprofen 800 mg tablet, ibuprofen 800 mg tablet TAKE 1 TABLET BY MOUTH 3 TIMES A DAY, Disp: , Rfl: ketorolac (Toradol) 10 mg tablet, Take 1 tablet by mouth every 6 (six) hours if needed., Disp: , Rfl: levothyroxine (Synthroid, Levoxyl) 50 mcg tablet, 1 (one) time each day at the same time., Disp: , Rfl: metaxalone (Skelaxin) 400 mg tablet, Take 1 tablet by mouth in the morning, afternoon, and at bed (more content not included)...[facility]10-24-2022 Miscellaneous Notes* Telephone Encounter - Jud Hess LPN - 05/17/2022 4:26 PM EDT Viewglass message sent to patient. * Telephone Encounter - Noemi Pham MD - 05/17/2022 12:56 PM EDT She can try a medrol marybel and see if that will help. The following approved medication requests have been transmitted electronically. Requested Prescriptions Signed Prescriptions Disp Refills methylPREDNISolone (MEDROL, MARYBEL,) 4 mg Dose-Pack 21 tablet 0 Sig: As Instructed per package Authorizing Provider: NOEMI PHAM MD * Telephone Encounter - Shefali Ford RN - 05/17/2022 12:25 PM EDT Patient calling Has had bilateral hip pain that has been worsening over past several months Also has pain in ankles, feels the need to constantly flex and extend feet to crack ankles Pain wakes her at night and keeps her from sleeping Has tried tylenol and motrin with only slight relief Asking for input * Telephone Encounter - Glory Mason - 05/17/2022 8:25 AM EDT Lynette Prince called today. : 1975 Allergies: Meloxicam and Methotrexate (home) [phone] (cell) Reason for call: Patient called asking for appointment yumiko Pham. She states she is having her hips and ankles go to sleep and she is unable to sleep at night. She also states that her low back is giving her pain and affecting her bowels. No available appointments in near future. Please reach out to patient. She is available today between 12-12:30. Patient last appointment: 12/09/2021 The patients preferred pharmacy has been captured for this encounter? not asked Glory Mason documented [facility] Miscellaneous Notes* Telephone Encounter - Jud Hess LPN - 12/29/2021 2:47 PM EDT PA for Enbrel submitted via Cover My Meds. Felder: [id number] Pend for determination * Telephone Encounter - Jud Hess LPN - 12/29/2021 10:49 AM EDT RX for Enbrel needs signed and routed to [facility] Patient requesting Cortisone injection in the interim. * Telephone Encounter - Hope Gonzalez RN - 12/29/2021 9:33 AM EDT Since patient has been off of her Enbrel x 2 months, she states that her pain level has gone up. Her left ankle is particularly bad as well as her shoulders She is wondering if she could receive a cortisone injection to help calm things down while she waits for mail order delivery of the Enbrel? Please call back to (OK to leave message on voicemail) ' documented in this encounterOhio State [facility] System04-06-2022 Miscellaneous Notes* Telephone Encounter - Jud Hess LPN - 10/28/2021 12:13 PM EDT Rx placed in outgoing mail this date. Patient notified via [employer]. * Telephone Encounter - Noemi Pham MD - 10/28/2021 11:59 AM EDT rx for handicapped written, please mail to patient. Noemi Pham MD [facility]* Diagnosis Neuropathic pain- Primary Neuralgia, neuritis, and radiculitis, unspecified [facility] note* Diagnosis Fibromyalgia- Primary Mylagia and myositis, unspecified documented in [facility] encounter [facility] noteNo assessment information [facility] Work Phone: Evaluation note* Diagnosis Rheumatoid arthritis involving multiple sites, unspecified whether rheumatoid factor present (HCC)- Primary documented in this encounter [facility]* Diagnosis Myalgia- Primary Mylagia and myositis, unspecified documented in this encounter [facility]* Diagnosis Fatigue, unspecified type- Primary Elevated aldolase level Other nonspecific abnormal serum enzyme levels Generalized weakness Other malaise and fatigue documented in this encounter [facility]* Diagnosis Fatigue, unspecified type Elevated aldolase level Other nonspecific abnormal serum enzyme levels Generalized weakness Other malaise and fatigue documented in this [facility]* Diagnosis Rheumatoid arthritis involving multiple sites, unspecified whether rheumatoid factor present (HCC)- Primary documented in this encounter [facility]* Diagnosis Pain in joint, multiple sites- Primary Trochanteric bursitis of both hips Enthesopathy of hip region documented in this encounter [facility] note* Diagnosis Pain in joint, multiple sites documented in this encounter [facility] noteNo Information[facility] Other Evaluation note* Diagnosis Status migrainosus- Primary Variants of migraine, not elsewhere classified, without mention of intractable migraine without mention of status migrainosus Migraine without aura and without status migrainosus, not intractable Cervicalgia Fibromyalgia Unspecified myalgia and myositis Paresthesias Disturbance of skin sensation Trapezius muscle spasm Vertigo Dizziness and giddiness documented in this encounter [facility] SystemHistory general Narrative - Reported* Type Description Date Medical History rheumatoid arthritis Medical History anxiety Medical History chronic depression Medical History coronary artery disease Surgical History heart catheterization Surgical History gall bladder removed Surgical History tonsillectomy and adenoidectomy Surgical History HYSTERECTOMY Surgical History appendectomy Hospitalization History surgeries [employer] Other Hospital Discharge instructions* Instructions* Garfield Restrepo MD - 02/07/2021 Return to the ER for increasing pain numbness weakness any signs of infection or other concerns otherwise you are to follow-up with your family doctor within the next few days Please understand that at this time there is no evidence for a more serious underlying process, butthat early in the process of an illness or injury, an emergency department workup can be falsely reassuring. You should contact your family doctor within the next 48 hours for a follow up appointment THANK YOU!!! From [facility] and [facility] On behalf of the Emergency Department staff at [facility], I would like to thank you for giving us the opportunity to address your health care needs and concerns. We hope that during your visit, our service was delivered in a professional and caring manner. Please keep [facility] in mind as we walk with you down the path to your own personal wellness. Please expect an automated text message or email from us so we can ask a few questions about your health and progress. Based on your answers, a clinician may call you back to offer help and instructions. Please understand that early in the process of an illness or injury, an emergency department workupcan be falsely reassuring. If you notice any worsening, changing or persistent symptoms please callyour family doctor or return to the ER immediately. Tell us how we did during your visit at [email or web address] and let us know about your experience * Attachments The following attachments cannot be sent through Care Everywhere. * Neuropathic Pain (Turkish) documented in this encounterGoNetYourself Phone: InstructionsNot on filedocumented in this encounter [facility] SystemInstructionsNot on filedocumented in this encounter [facility] for [facility] (narrative)* Outpatient Procedure (Routine) - Pending Review Specialty Diagnoses / Procedures Referred By Contac t Referred To Contact [facility] Diagnoses Fatigue, unspecified type Elevated aldolase level Generalized weakness Procedures EMG(NEURO/NI) NERVE CONDUCTION STUDIES 9-10 STUDIES Liz Connolly MD [address] [place] [address] Neurological [place] [address] [place] [address] Referral ID Status Reason Start Date Expiration Date Visits Requested Visits Authorized [id number] Pending Review Auto-Generat ed Referral 11/23/2022 11/24/2023 1 1 [facility] for referral (narrative)* Diagnostic Procedure Only (Routine) - Closed Specialty Diagnoses / Procedures Referred By Contac t Referred To Contact XR IMAGING Diagnoses Pain in joint, multiple sites Procedures XR LUMBAR GENERAL 3V AP/LAT/L5-S1 RADEX SPINE LUMBOSACRAL 2/3 VIEWS Noemi Pham MD [address] [facility] [place] [address] Xr Imaging [place] [address] Referral ID Status Reason Start Date Expiration Date V isits Requested Visits Authorized [id number] Closed Auto-Generate d Referral 06/24/2023 07/23/2024 1 1 [facility] for referral (narrative)* Diagnostic Procedure Only (Routine) - Closed Specialty Diagnoses / Procedures Referred By Contac t Referred To Contact XR IMAGING Diagnoses Pain in joint, multiple sites Procedures XR LUMBAR GENERAL 3V AP/LAT/L5-S1 RADEX SPINE LUMBOSACRAL 2/3 VIEWS Noemi Pham MD [address] [employer] [place] [address] [place] [id number] Referral ID Status Reason Start Date Expiration Date V isits Requested Visits Authorized [id number] Closed Auto-Generate d Referral 06/24/2023 07/23/2024 1 1 [facility] for visit Narrative* Outpatient Procedure (Routine) - Closed Specialty Diagnoses / Procedures Referred By Contac t Referred To Contact [facility] Diagnoses Fatigue, unspecified type Elevated aldolase level Generalized weakness Procedures EMG(NEURO/NI) NERVE CONDUCTION STUDIES 9-10 STUDIES Liz Connolly MD [address] [place] [address] [place] [address] Referral ID Status Reason Start Date Expiration Date V isits Requested Visits Authorized [id number] Closed Auto-Generate d Referral 11/23/2022 11/24/2023 1 1 [facility] Advance Directives No Advanced Directives Records FoundDocuments on File Type Date Recorded Patient Benefits Advisor Expl anation ACP-Advance Directive ACP-Power of Parts Inspector Documents on File Type Date Recorded Patient Benefits Advisor Expl anation Advance Directives and Living Will Power of Parts Inspector Documents on File Type Date Recorded Patient Benefits Advisor Expl anation ACP-Advance Directive ACP-Power of Parts Inspector Latest Code Status on File Code Status Date Activated Date Inactivated Comments Full Code 09/06/2022 4:15 PM 09/07/2022 7:01 PM Summary Purpose Family History No Family History Records FoundNo Family History Records FoundNo Family History Records FoundNo Family History Records FoundNo Family History Records FoundNo Family History Records FoundNo Family History Records FoundNo Family History Records Found Procedure Findings Note MR#: [id number] [facility] Pt. Name: Lynette Prince Surgery Date: 08/22/2019 Room #: Z0 Date of : 1975 PROCEDURE NOTE ATTENDING: Dina Zhou M.D. PROCEDURE PERFORMED: Esophagogastroduodenoscopy. CONVEYOR LINE BAKERY WORKER: Zackary Narvaez M.D. ANESTHESIA USED: Conscious sedation with 7 mg Versed, 175 mcg fentanyl, and 50 mg of Benadryl. INDICATION FOR EXAM: The patient is a 44-year-old female with a history of gastroparesis, IBS, who presents with abdominal pain and diarrhea. PROCEDURE IN DETAIL: Physical examination was performed. Major risks and benefits associated with the procedure were explained to the patient in detail. The patient verbalized understanding and agreement of the same. Continuous oxygen was provided via nasal cannula and IV sedation was administered in divided doses throughout the procedure. After adequate sedation was achieved, a diagnostic gastroscope was advanced through the mouth into the esophagus. The esophageal mucosa did not show (more content not included)... Discharge Instructions * Instructions* Jud Osuna PA-C - 04/24/2019 You may wear the Kevin wrap for comfort. Please continue to take 800 mg of ibuprofen up to 3 times per day as needed for pain You may apply ice to the area for 10 minutes every hour. Please wrap ice in a towel. Please call your skin toggler tomorrow and your family physician tomorrow to schedule follow-up for 1to 2 days Return to the emergency room for worsening pain swelling numbness tingling or other emergent concerns * Attachments The following attachments cannot be sent through Care Everywhere. * Foot Sprain (Turkish) documented in this encounter Assessments Diagnosis Sprain of left foot, initial encounter- Primary Medications Administered Section Inactive Administered Medications - up to 3 most recent administrations Medication Order MAR Action Action Date Dose Rate Site methylPREDNISolone acetate 80 mg injection (DEPO-Medrol) 80 mg, INTRAMUSCULAR, ONCE, 1 dose, On Tue08/11/22 at 1030 Given 08/11/2022 11:18 AM EST 80 mg Buttocks, Left Inactive Administered Medications - up to 3 most recent administrations Medication Order MAR Action Action Date Dose Rate Site lidocaine (PF) 10 mg/mL (1 %) 2 mL injection (XYLOCAINE) 2 mL, Injection - FOR ORTHO USE ONLY, ONCE, 1 dose, Starting on Tue06/24/23 at 1219, Until Tue06/24/23 at 1219 Given 06/24/2023 12:19 PM EST 2 mL Hip, Right triamcinolone acetonide 80 mg injection (KeNALog 40) 80 mg, Injection - FOR ORTHO USE ONLY, ONCE, 1 dose, Starting on Tue06/24/23 at 1219, Until Tue06/24/23 at 1219 Given 06/24/2023 12:19 PM EST 80 mg Hip, Right Additional Source Comments Reason for Visit (unrecogniz ed section and content) Status Reason Specialty Diagnoses / Procedures Referred By Contact Referred To Contact Authorized Physical Therapy Diagnoses Plantar fasciitis Procedures eval and treat Isael Yoder MD [address] [place] [address] Sander Jauregui, PT Reason Comments Foot Pain Left foot pain, unsu re if shes had an injury Reason Comments Arm Pain right arm pain for weeks now. Pt reports she was seen here for same complaint a few weeks ago and the pain has gotten worse in her arm. Reason Comments Patient Request Reason Comments Patient Question Reason Comments Refill Request Reason Comments Established Patient Follow-Up Reason Comments Results Reason Comments Insurance Authorization Enbrel Reason Comments Orders Reason Comments Insurance Authorization Reason Comments Medication Problem Reason Comments Follow Up Reason Comments Radiology XR Specialty Diagnoses / Procedures Referred By Contac t Referred To Contact XR IMAGING Diagnoses Pain in joint, multiple sites Procedures XR LUMBAR GENERAL 3V AP/LAT/L5-S1 RADEX SPINE LUMBOSACRAL 2/3 VIEWS Noemi Pham MD [address] [place] [address] [place] [address] Referral ID Status Reason Start Date Expiration Date V isits Requested Visits Authorized [id number] Closed Auto-Generate d Referral 06/24/2023 07/23/2024 1 1 Reason Onset Date Comments Headache 07/21/2023 Reason Comments Migraine Migraine cocktail INFORMATION SOURCE (unrecogn ized section and content) DATE CREATED AUTHOR 08/14/2020 [facility] DATE CREATED AUTHOR AUTHOR'S ORGANIZ ATION 07/25/2021 [facility] DATE CREATED AUTHOR AUTHOR'S ORGANIZ ATION 09/20/2022 [facility] DATE CREATED AUTHOR AUTHOR'S ORGANIZ ATION 10/30/2022 [facility] DATE CREATED AUTHOR AUTHOR'S ORGANIZ ATION 03/25/2023 [facility] DATE CREATED AUTHOR AUTHOR'S ORGANIZ ATION 06/27/2023 [facility] DATE CREATED AUTHOR AUTHOR'S ORGANIZ ATION 06/27/2023 [facility] DATE CREATED AUTHOR AUTHOR'S GENOVEVA SALDANA 08/07/2023 [facility] Ordered Prescriptions (unrec ognized section and content) Prescription Sig Dispensed Refills Start Date End Da te predniSONE (DELTASONE) 20 MG tablet Take 1 tablet by mouth daily for 10 days 10 tablet 0 02/07/2021 02/17/2021 metaxalone (SKELAXIN) 400 MG tablet Take 1 tablet by mouth 3 times daily 21 tablet 0 02/07/2021 Source Comments (unrecognize d section and content) In the event this informatio n is protected by the Federal Confidentiality of Alcohol and Drug Abuse Patient Records regulations: The Federal rules restrict any use of the information to criminally investigate or prosecute any alcohol or drug abuse patient.[facility] System[facility] the event this information is protected by the Federal Confidentiality of Alcohol and Drug Abuse Patient Records regulations: The Federal rules restrict any use of the information to criminally investigate or prosecute any alcohol or drug abuse patient.[facility] SystemIn the event this information is protected by the Federal Confidentiality of Alcohol and Drug Abuse Patient Records regulations: The Federal rules restrict any use of the information to criminally investigate or prosecute any alcohol or drug abuse patient.[facility] SystemIn the event this information is protected by the Federal Confidentiality of Alcohol and Drug Abuse Patient Records regulations: The Federal rules restrict any use of the information to criminally investigate or prosecute any alcohol or drug abuse patient.[facility] SystemIn the event this information is protected by the Federal Confidentiality of Alcohol and Drug Abuse Patient Records regulations: The Federal rules restrict any use of the information to criminally investigate or prosecute any alcohol or drug abuse patient.[facility] SystemIn the event this information is protected by the Federal Confidentiality of Alcohol and Drug Abuse Patient Records regulations: The Federal rules restrict any use of the information to criminally investigate or prosecute any alcohol or drug abuse patient.[facility] SystemIn the event this information is protected by the Federal Confidentiality of Alcohol and Drug Abuse Patient Records regulations: The Federal rules restrict any use of the information to criminally investigate or prosecute any alcohol or drug abuse patient.[facility] SystemIn the event this information is protected by the Federal Confidentiality of Alcohol and Drug Abuse Patient Records regulations: The Federal rules restrict any use of the information to criminally investigate or prosecute any alcohol or drug abuse patient.[facility] SystemIn the event this information is protected by the Federal Confidentiality of Alcohol and Drug Abuse Patient Records regulations: The Federal rules restrict any use of the information to criminally investigate or prosecute any alcohol or drug abuse patient.[facility] SystemIn the event this information is protected by the Federal Confidentiality of Alcohol and Drug Abuse Patient Records regulations: The Federal rules restrict any use of the information to criminally investigate or prosecute any alcohol or drug abuse patient.[facility] SystemIn the event this information is protected by the Federal Confidentiality of Alcohol and Drug Abuse Patient Records regulations: The Federal rules restrict any use of the information to criminally investigate or prosecute any alcohol or drug abuse patient.[facility] SystemIn the event this information is protected by the Federal Confidentiality of Alcohol and Drug Abuse Patient Records regulations: The Federal rules restrict any use of the information to criminally investigate or prosecute any alcohol or drug abuse patient.[facility] SystemIn the event this information is protected by the Federal Confidentiality of Alcohol and Drug Abuse Patient Records regulations: The Federal rules restrict any use of the information to criminally investigate or prosecute any alcohol or drug abuse patient.[facility] SystemIn the event this information is protected by the Federal Confidentiality of Alcohol and Drug Abuse Patient Records regulations: The Federal rules restrict any use of the information to criminally investigate or prosecute any alcohol or drug abuse patient.[facility] SystemIn the event this information is protected by the Federal Confidentiality of Alcohol and Drug Abuse Patient Records regulations: The Federal rules restrict any use of the information to criminally investigate or prosecute any alcohol or drug abuse patient.[facility] SystemIn the event this information is protected by the Federal Confidentiality of Alcohol and Drug Abuse Patient Records regulations: The Federal rules restrict any use of the information to criminally investigate or prosecute any alcohol or drug abuse patient.[facility] SystemIn the event this information is protected by the Federal Confidentiality of Alcohol and Drug Abuse Patient Records regulations: The Federal rules restrict any use of the information to criminally investigate or prosecute any alcohol or drug abuse patient.[facility] SystemIn the event this information is protected by the Federal Confidentiality of Alcohol and Drug Abuse Patient Records regulations: The Federal rules restrict any use of the information to criminally investigate or prosecute any alcohol or drug abuse patient.[facility] SystemIn the event this information is protected by the Federal Confidentiality of Alcohol and Drug Abuse Patient Records regulations: The Federal rules restrict any use of the information to criminally investigate or prosecute any alcohol or drug abuse patient.[facility] SystemIn the event this information is protected by the Federal Confidentiality of Alcohol and Drug Abuse Patient Records regulations: The Federal rules restrict any use of the information to criminally investigate or prosecute any alcohol or drug abuse patient.[facility] SystemIn the event this information is protected by the Federal Confidentiality of Alcohol and Drug Abuse Patient Records regulations: The Federal rules restrict any use of the information to criminally investigate or prosecute any alcohol or drug abuse patient.[facility] Care Teams (unrecognized sec tion and content) Cluster Bore Operator Relationship Specialty Start Date End Date Toy Obrien MD PCP - General Family Practice 07/05/16 Cluster Bore Operator Relationship Specialty Start Date End Date Toy Obrien MD PCP - General Family Practice 07/05/16 Cluster Bore Operator Relationship Specialty Start Date End Date Toy Obrien MD PCP - General Family Medicine 07/05/16 Cluster Bore Operator Relationship Specialty Start Date End Date Toy Obrien MD PCP - General Family Medicine 07/05/16 Cluster Bore Operator Relationship Specialty Start Date End Date Toy Obrien MD PCP - General Family Medicine 07/05/16 Team Status: Inactive Member Role Status Dates Jud Monson , [employer] Attending Provider Active Cluster Bore Operator Relationship Specialty Start Date End Date Toy Obrien MD PCP - General Family Medicine 07/05/16 Cluster Bore Operator Relationship Specialty Start Date End Date Toy Obrien MD PCP - General Family Medicine 07/05/16 Cluster Bore Operator Relationship Specialty Start Date End Date Toy Obrien MD PCP - General Family Medicine 07/05/16 Cluster Bore Operator Relationship Specialty Start Date End Date Toy Obrien MD PCP - General Family Medicine 07/05/16 Cluster Bore Operator Relationship Specialty Start Date End Date Toy Obrien MD PCP - General Family Medicine 07/05/16 Cluster Bore Operator Relationship Specialty Start Date End Date Toy Obrien MD PCP - General Family Medicine 07/05/16 Cluster Bore Operator Relationship Specialty Start Date End Date Toy Obrien MD PCP - General Family Medicine 07/05/16 Cluster Bore Operator Relationship Specialty Start Date End Date Toy Obrien MD PCP - General Family Medicine 07/05/16 Cluster Bore Operator Relationship Specialty Start Date End Date Toy Obrien MD PCP - [facility] 07/05/16 Cluster Bore Operator Relationship Specialty Start Date End Date Toy Obrien MD PCP - [facility] 07/05/16 Cluster Bore Operator Relationship Specialty Start Date End Date Toy Obrien MD PCP - [facility] 07/05/16 Cluster Bore Operator Relationship Specialty Start Date End Date Toy Obrien MD [address] [place] [phone] [facility] 09/06/22 Cluster Bore Operator Relationship Specialty Start Date End Date Tyo Obrien MD [address] [place] [phone] [facility] 09/06/22 Cluster Bore Operator Relationship Specialty Start Date End Date Toy Obrien MD [address] [place] [phone] [facility] 09/06/22 Goals (unrecognized section and content) Goals may be documented in a n alternate sectionNo InformationNo InformationNot on filedocumented as of this encounterNo InformationNot on filedocumented as of this encounterNot on filedocumented as of this encounter FOR RECORDS PERTAINING TO PATIENTS WHO ARE OR HAVE BEEN ENROLLED IN A CHEMICAL DEPENDENCY/SUBSTANCEABUSE PROGRAM, SOME INFORMATION MAY BE OMITTED. This clinical summary was aggregated from multiple sources. Caution should be exercised in using it in the provision of clinical care. This summary normalizes information from multiple sources, and as a consequence, information in this document may materially change the coding, format and clinical context of patient data. In addition, data may be omitted in some cases. CLINICAL DECISIONS SHOULD BE BASED ON THE PRIMARY CLINICAL RECORDS. [facility]. provides no warranty or guarantee of the accuracy or completeness of information in this document.
[2023-08-18 09:26] LABS: Bilirubin Urine NEGATIVE (NEGATIVE); Blood Urine NEGATIVE (NEGATIVE); Clarity Urine CLEAR (CLEAR); Color Urine LT. YELLOW (YELLOW); Glucose Urine UA NEGATIVE (NEGATIVE); Ketones Urine NEGATIVE (NEGATIVE); Leukocyte Esterase Urine NEGATIVE (NEGATIVE); Nitrite Urine POSITIVE (NEGATIVE); Protein Urine NEGATIVE (NEG/TRACE); Specific Gravity Urine 1.025 (1.005-1.025); Urine Microscopic Indicated YES; Urobilinogen Urine 0.2 EU/dL (0.2-1.0); pH Urine 5.5 (5.0-9.0)
[2023-08-18 09:38] LABS: Bacteria Urine LARGE #/HPF (NONE SEEN); Cast Seen? NONE SEEN #/LPF (NONE SEEN); Crystals Seen? None Seen #/HPF (None Seen); Mucus Urine NONE SEEN (NONE SEEN); RBC Urine 0-2 #/HPF (0-2); Squamous Epithelial Cell Urine MANY #/LPF (NONE/RARE); Urine Culture Indicated YES; WBC Urine 0-2 #/HPF (NONE SEEN)
== END 2023-08-18 08:35 | disposition home or self-care (01) ==
LOC: LAB 08:35
DX: R53.83 Other fatigue (principal)
CPT/HCPCS: 81001; 87086; 87150; 87186

== ENCOUNTER 2023-09-12 08:26 | Outpatient (OUT) | payer OTHER, SELFPAY ==
--- OUTSIDE RECORDS SUMMARY | 2023-09-12 08:35 | XMS_ITS | CCD ---
Author Name Unknown Address [address] [place] [address] Organization [facility] Care Team Providers Care Folder Gluer Operator Name Role Phone Toy Obrien Primary Care Provider TOY OBRIEN Primary Care Unavailable GARFIELD RESTREPO Attending Unavailable TOY OBRIEN Primary Care Unavailable GARFIELD RESTREPO Attending Unavailable BLANCA DAWN Referring Unavailable TOY OBRIEN Primary Care Unavailable BLANCA DAWN Referring Unavailable TOY OBRIEN Primary Care Unavailable Toy Obrien MD Primary Care Provider [phone] Toy Obrien MD Primary Care Provider ZOEY Monson Attending Provider Toy Obrien MD Primary Care Provider [phone] Jud Monson Admitting Unavailable Jud Monson Attending [...] Referring Unavailable TOY OBRIEN Primary Care Unavailable MICHAEL PERKINS Attending Unavailable TOY OBRIEN Referring Unavailable TOY OBRIEN Primary Care Unavailable Allergies Allergy Classification Reported Allergen(s) Allergy Type Date of Onset Reaction(s) Facility NSAIDs (1 source) meloxicam Drug Allergy 7 [facility] (20 sources) meloxicam; Translations: [MELOXICAM] Drug Allergy 7 [place] (20 sources) Methotrexate; Translations: [METHOTREXATE] Drug Allergy 5 GI Upset, [facility] (7 sources) Isosorbide; Translations: [ISOSORBIDE MONONITRATE] Drug Allergy 2 Headache, Vomiting [facility] (3 sources) Isosorbide Dinitrate Drug Allergy Unknown [facility] Other Medications Current Medications Medication Drug Class(es) Dates Sig (Normalized) Sig (Original) amLODIPine 2.5 mg oral tablet (8 sources) Dihydropyridine Calcium Channel Salvador Start: 10-29-2022 [...] aspirin 81 mg delayed release oral tablet (8 sources) Platelet Aggregation Inhibitor, Nonsteroidal Anti-inflammatory Drug [...] tablet (20 sources) beta-Adrenergic Salvador Start: 09-08-19 End: 09-02-19 take 0.5 tablet by mouth every twenty-four hours in the morning metoprolol succinate XL (TOPROL XL) 25 mg 24 hr tablet Indications: Primary hypertension , Coronary artery vasospasm (CMS-HCC) , Intermittent palpitations Take 0.5 tablets (12.5 mg total) by mouth in the morning. 60 tablet 3 09/02/2023 Active metoprolol tartr ate, short acting, (LOPRESSOR) 25 mg tablet Take 12.5 mg by mouth once daily. 0 Active Comment on above: Take 12.5 mg by mout h once daily. nitroglycerin 0.4 mg sublingual tablet (5 sources) Nitrate Vasodilator Start: 09-14-19 nitroglycerin (NITROSTAT) [...] oral tablet (5 sources) beta-Adrenergic Salvador Start: 3 propranolol (INDERAL) 40 MG tablet rosuvastatin calcium 20 mg oral tablet (6 sources) HMG-CoA Reductase Inhibitor Start: 4 take 1 tablet by mouth in the morning rosuvastatin (CRESTOR) 20 mg tablet Indications: Primary hypertension , Coronary artery vasospasm (CMS-HCC) , Intermittent palpitations Take 1 tablet (20 mg total) by mouth in the morning. 90 tablet 5 09/02/2023 Active Start: 08-13-2022 End: 09-02-2023 take 1 tablet by mouth in the morning rosuvastatin (CRESTOR) 5 mg tablet Take 1 tablet (5 mg total) by mouth in the morning. 30 tablet 11 08/13/2022 09/02/2023 Discontinued sertraline 100 mg oral tablet (20 sources) Serotonin Reuptake Inhibitor Start: 03-13-2013 sertraline (ZOLOFT) 100 MG tablet Comment on above: Take 100 mg by mouth once daily. SUMAtriptan 100 mg oral tablet (6 sources) Serotonin-1b and Serotonin-1d Receptor Agonist Start: 03-10-2023 End: 08-04-2024 SUMAtriptan (IMITREX) 100 mg tablet Take 1 tablet (100 mg total) by mouth once as needed for migraine. May repeat in 2 hours if unresolved. Do not exceed 200 mg in 24 hours. 9 tablet 11 08/05/2023 08/04/2024 Active tiZANidine 4 mg oral tablet (6 sources) Central alpha-2 Adrenergic Agonist Start: 03-10-2023 End: 08-05-2023 take 1 tablet by mouth once daily tiZANidine (ZANAFLEX) 4 mg tablet Take 1-2 tablets (4-8 mg total) by mouth nightly. 60 tablet 2 08/05/2023 Active zonisamide 100 mg oral capsule (9 sources) Anti-epileptic Agent Start: 06-20-2023 End: 08-05-2023 take 1 capsule by mouth once daily [...] po bid prn TAKE 1/2 TABLET BY M OUTH TWICE A DAY NEEDED 1 ml methylPREDNISolone acetate 80 mg/ml injection (20 sources) Corticosteroid Start: 08-11-19 End: 08-11-19 methylPREDNISolone acetate 80 mg injection (DEPO-Medrol) Start: 05-17-2022 methylPREDNISo lone (MEDROL, MARYBEL,) 4 mg Dose-Pack As Instructed per package 21 tablet 0 05/17/2022 Active Comment on above: As Instructed per pa kanwal omeprazole 40 mg delayed release oral capsule [...] Date Documented Da te Episodic/Chronic Anxiety disorders (5 sources) Anxiety; Translations: [Anxiety disorder, unspecified] Onset: 12-14-2017 08-07-2020 Chronic Asthma (5 sources) Asthma without status asthmaticus; Translations: [Unspecified asthma, uncomplicated] Onset: 09-26-2019 09-26-2019 Chronic Cardiac dysrhythmias (5 sources) Postural orthostatic tachycardia syndrome ; Translations: [Postural orthostatic tachycardia syndrome] Onset: 09-26-2019 09-07-2022 Chronic Coronary atherosclerosis and other heart disease (7 sources) Coronary artery spasm; Translations: [Angina pectoris with documented spasm] Onset: 10-14-2021 09-07-2022 Chronic Disorders of lipid metabolism (5 sources) Hypercholesterolemi a; Translations: [Pure hypercholesterolemi a, unspecified] Onset: 09-26-2019 09-26-2019 Chronic Endometriosis (5 sources) Endometriosis (clinical); Translations: [Endometriosis, unspecified] Onset: 09-26-2019 09-26-2019 Chronic Esophageal disorders (7 sources) Gastro-esophageal reflux disease without esophagitis; Translations: [Gastroesophageal reflux disease] Onset: 09-26-2019 Chronic Essential hypertension (8 sources) Hypertensive disorder; Translations: [Essential (primary) hypertension] Onset: 09-22-2021 09-07-2022 Chronic Genitourinary symptoms and ill-defined conditions (5 sources) Incontinence without sensory awareness; Translations: [Incontinence without sensory awareness] Onset: 09-26-2019 09-26-2019 Chronic Headache; including migraine (20 sources) Refractory migraine variants; Translations: [Migraine with aura, intractable, without status migrainosus] Onset: 09-26-2019 03-25-2021 Chronic Heart valve disorders (10 sources) Mitral valve regurgitation; Translations: [Nonrheumatic mitral (valve) insufficiency] Onset: 07-10-2010 Resolved: 07-23-2021 09-14-2022 Chronic Nutritional deficiencies (20 sources) Vitamin D deficiency; Translations: [Vitamin D deficiency, unspecified] Onset: 11-05-2018 11-05-2018 Chronic Other connective tissue disease (1 source) Neuropathic pain; Translations: [Neuralgia and neuritis, unspecified] Episodic Other connective tissue disease (1 source) Lateral epicondylitis, right elbow Episodic Other connective tissue disease (1 source) Bilateral trochanteric bursitis; Translations: [Trochanteric bursitis, right hip] 06-24-2023 Episodic Other endocrine disorders (5 sources) Polycystic ovary; Translations: [Polycystic ovarian syndrome] Onset: 09-26-2019 09-26-2019 Chronic Other gastrointestinal disorders (1 source) Intestinal malabsorption, unspecified; Translations: [Intestinal malabsorption, unspecified] Onset: 03-21-2023 Chronic Other gastrointestinal disorders (2 sources) Diarrhea, unspecified; Translations: [Diarrhea, unspecified] Onset: 09-08-2022 Episodic Other liver diseases (2 sources) Enzyme level - finding; Translations: [Abnormal levels of other serum enzymes] Episodic Other nervous system disorders (5 sources) Chronic pain; Translations: [Other chronic pain] Onset: 09-26-2019 09-26-2019 Chronic Other non-traumatic joint disorders (10 sources) Multiple [...] Chronic Other nutritional; endocrine; and metabolic disorders (5 sources) Insulin resistance; Translations: [Insulin resistance] Onset: 09-26-2019 09-26-2019 Chronic Other nutritional; endocrine; and metabolic disorders (5 sources) Metabolic syndrome X; Translations: [Metabolic syndrome X] Onset: 12-06-2012 06-24-2021 Chronic Other nutritional; endocrine; and metabolic disorders (5 sources) Body mass index 30+ - obesity; [...] Onset: 02-12-2020 03-25-2021 Chronic Residual codes; unclassified (5 sources) Periodic limb movement disorder; Translations: [Periodic limb movement disorder] Onset: 09-26-2019 09-26-2019 Chronic Residual codes; unclassified (1 source) Obstructive sleep apnea (adult) (pediatric); Translations: [Obstructive sleep apnea (adult) (pediatric)] Onset: 09-02-2023 Chronic Rheumatoid arthritis and related disease (8 sources) Rheumatoid arthritis of multiple joints; Translations: [Rheumatoid arthritis, unspecified] Onset: 09-26-2019 Chronic Systemic lupus erythematosus and connective tissue disorders (5 sources) Autoimmune disease; 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, unspecified] Onset: 09-26-2019 09-26-2019 Chronic Thyroid disorders (5 sources) Acquired hypothyroidism; Translations: [Hypothyroidism, unspecified] Onset: [...] Onset: 9 11-05-2018 Episodic Cancer of cervix (5 sources) Cervicovaginal cytology: Low grade squamous intraepithelial lesion; Translations: [Low grade squamous intraepithelial lesion on cytologic smear of cervix (LGSIL)] Onset: 0 09-26-2019 Episodic Cardiac dysrhythmias (7 sources) Intermittent palpitations; Translations: [Palpitations] Onset: 8 08-21-2021 Episodic Coma; stupor; and brain damage (20 sources) Daytime somnolence; Translations: [Somnolence] Onset: 9 11-05-2018 Episodic Conditions associated with dizziness or vertigo (12 sources) Vertigo; Translations: [Dizziness and giddiness] Onset: 0 09-26-2019 Episodic Gastrointestinal hemorrhage (5 sources) Blood-tinged feces; Translations: [Melena] Onset: 5 06-24-2021 Episodic Malaise and fatigue (20 sources) Fatigue; Translations: [Other fatigue] Onset: 9 11-05-2018 Episodic Mood disorders (5 sources) Mood disorders Onset: 3 09-06-2022 Nonspecific chest pain (10 sources) Chest pain; Translations: [Chest pain, unspecified] Onset: 6 09-22-2021 Episodic Other connective tissue disease (7 sources) Fibromyalgia; Translations: [Fibromyalgia] Onset: 0 Episodic Other connective tissue disease (20 sources) Muscle pain; Translations: [Myalgia, unspecified site] Onset: 9 11-05-2018 Episodic Other connective tissue disease (20 sources) Myofascial pain syndrome; Translations: [Myalgia, other site] Onset: 1 03-25-2021 Episodic Other connective tissue disease (6 sources) Muscle spasm of cervical muscle of neck; Translations: [Other muscle spasm] Onset: 0 09-26-2019 Episodic Other connective tissue disease (1 source) Fibromyalgia; Translations: [Fibromyalgia] Onset: 0 Episodic Other connective tissue disease (1 source) Other muscle spasm; Translations: [Other muscle spasm] Onset: 0 Episodic Other disorders of stomach and duodenum (5 sources) Gastroparesis syndrome; Translations: [Gastroparesis] Onset: 0 [...] Onset: 3 Episodic Other lower respiratory disease (5 sources) Dyspnea on exertion; Translations: [Shortness of breath] Onset: 5 08-21-2021 Episodic Other nervous system disorders (20 sources) Muscle fasciculation; Translations: [Fasciculation] Onset: 9 11-05-2018 Episodic Other nervous system disorders (20 sources) Muscle twitch; Translations: [Fasciculation] Onset: 1 03-25-2021 Episodic Other nervous system disorders (6 sources) Paresthesia; Translations: [Paresthesia of skin] Onset: 0 09-26-2019 Episodic Other nervous system disorders (1 source) [...] conditions (not mental disorders or infectious disease) (10 sources) Electrocardiogram abnormal; Translations: [Abnormal electrocardiogram [ECG] [...] Spondylosis; intervertebral disc disorders; other back problems (12 sources) Neck pain; Translations: [Cervicalgia] Onset: 0 09-26-2019 Episodic Sprains and strains (5 sources) Strain of flexor muscle of hip; Translations: [Strain of muscle, fascia and tendon of unspecified hip, initial encounter] Onset: 3 06-24-2021 Episodic Syncope (5 sources) Syncope and collapse; Translations: [Syncope and collapse] Onset: 4 Resolved: 8 04-26-2018 Episodic Unclassified (5 sources) Onset: 8 12-21-2017 Results Test Name Value Interpretation Reference Range Facil ity POCT EKGon 09-02-2023 [facility] ALDOLASE BLDon 06-24-2023 Aldolase [Catalytic activity/Vol] 11.2 mU/mL High 1.5 - 8.1 U/L [facility] Aldolase SerPl-cCncon 2022 Aldolase [Catalytic activity/Vol] 11.2 mU/mL High 1.5-8.1 [facility] Comment on above: Order Comment: Speci men Type: BLOOD SPECIMEN Ordering Facility: [facility] Address: [address] [place] [address] Result Comment: This test was developed and its performance characteristics determined by [facility] [place] ([facility] It has not been cleared or approved by the FDA. -[facility] is regulated under CLIA as qualified to perform high-complexity testing. This test is used for clinical purposes. It should not be regarded as investigational or for research. Performed By: #### 1 761-6 #### [facility] CLIA [id number] [address] [facility] [address] [id number] [address] [place] C-REACTIVE PROTEIN (CRP)on 08-25-2022 CRP [Mass/Vol] 0.6 mg/dL <0.9 mg/dL [facility] CBC panel Auto (Bld)on 06-24 Erythrocyte distribution width (RBC) [Ratio] 11.9 % Normal 11.5-15.0 [facility] Comment on above: Order Comment: [facility] Type: BLOOD SPECIMEN Ordering Facility: [facility] Address: [address] [place] [address] Performed By: #### 5 8410-2 #### [facility] CLIA [id number] [place] Hematocrit (Bld) [Volume fraction] 45.7 % Normal 36.0-46.0 [facility] Comment on above: Order Comment: Lynni ivon Type: BLOOD SPECIMEN Ordering Facility: [facility] Address: [address] [place] [address] Performed By: #### 5 8410-2 #### [facility] CLIA [id number] [address] [place] [address] [place] Hemoglobin (Bld) [Mass/Vol] 15.5 g/dL Normal 11.5-15.5 [facility] Comment on above: Order Comment: Mert [place] Type: BLOOD SPECIMEN Ordering Facility: [facility] Address: [address] [place] [address] Performed By: #### 5 8410-2 #### [facility] CLIA [id number] [address] [place], [place] [address] [place] [address] [place] MCH (RBC) [Entitic mass] 31.6 pg Normal 26.0-34.0 [facility] Comment on above: Order Comment: Speci men Type: BLOOD SPECIMEN Ordering Facility: [facility] Address: [address] [place] [address] Performed By: #### 5 8410-2 #### [facility] CLIA [id number] [place] MCHC (RBC) [Mass/Vol] 33.9 g/dL Normal 30.5-36.0 [facility] Comment on above: Order Comment: Speci men Type: BLOOD SPECIMEN Ordering Facility: [facility] Address: [address] [place] [address] Performed By: #### 5 8410-2 #### [facility] [place] [id number] [place] MCV (RBC) [Entitic vol] 93.1 fL Normal 80.0-100.0 [facility] Comment on above: Order Comment: Speci men Type: BLOOD SPECIMEN Ordering Facility: [facility] Address: [address] [place] [address] Performed By: #### 5 8410-2 #### [facility] [place] [id number] [place] Nucleated RBC (Bld) [#/Vol] 10*3/uL Normal <0.01 [facility] Comment on above: Order Comment: Speci men Type: BLOOD SPECIMEN Ordering Facility: [facility] Address: [address] [place] [address] Performed By: #### 5 8410-2 #### [facility] [place] [id number] [place] Platelet mean volume (Bld) [Entitic vol] 10.6 fL Normal 9.0-12.7 [facility] Comment on above: Order Comment: Speci men Type: BLOOD SPECIMEN Ordering Facility: [facility] Address: [address] [place] [address] Performed By: #### 5 8410-2 #### [facility] [place] [id number] [address] [place] [address] [place] Platelets (Bld) [#/Vol] 192 10*3/uL Normal 150-400 [facility] Comment on above: Order Comment: Speci men Type: BLOOD SPECIMEN Ordering Facility: [facility] Address: [address] [place] [address] Performed By: #### 5 8410-2 #### [facility] [place] [id number] [address] [place] [address] [place] RBC (Bld) [#/Vol] 4.91 10*6/uL Normal 3.90-5.20 [facility] Comment on above: Order Comment: Speci men Type: BLOOD SPECIMEN Ordering Facility: [facility] Address: [address] [place] [address] Performed By: #### 5 8410-2 #### [facility] [place] [id number] [address] [place] [address] [place] WBC (Bld) [#/Vol] 8.95 10*3/uL Normal 3.70-11.00 [facility] Comment on above: Order Comment: Speci men Type: BLOOD SPECIMEN Ordering Facility: [facility] Address: [address] [place] [address] Performed By: #### 5 8410-2 #### [facility] [place] [id number] [address] [place] [address] [place] Erythrocyte distribution width (RBC) [Ratio] 11.9 % 11.5 - 15.0 % [facility] Hematocrit (Bld) [Volume fraction] 45.7 % 36.0 - 46.0 % [facility] Hemoglobin (Bld) [Mass/Vol] 15.5 g/dL 11.5 - 15.5 g/dL [facility] MCH (RBC) [Entitic mass] 31.6 pg 26.0 - 34.0 pg [facility] MCHC (RBC) [Mass/Vol] 33.9 g/dL 30.5 - 36.0 g/dL [facility] MCV (RBC) [Entitic vol] 93.1 fL 80.0 - 100.0 fL [facility] Nucleated RBC (Bld) [#/Vol] <0.01 k/uL [facility] Platelet mean volume (Bld) [Entitic vol] 10.6 fL 9.0 - 12.7 fL [facility] Platelets (Bld) [#/Vol] 192 10*3/uL 150 - 400 k/uL [facility] RBC (Bld) [#/Vol] 4.91 10*6/uL 3.90 - 5.2 0 m/uL [facility] WBC (Bld) [#/Vol] 8.95 10*3/uL 3.70 - 11. 00 k/uL [facility] CK CREATINE KINASEon 023 CK [Catalytic activity/Vol] 119 U/L 42 - 196 U/L [facility] CK SerPl-cCncon 06-24-2023 CK [Catalytic activity/Vol] 119 U/L Normal 42-196 [facility] Comment on above: Order Comment: Speci men Type: BLOOD SPECIMEN Ordering Facility: [facility] Address: [address] [place] [address] Performed By: #### 2 157-6, 1987-11, 55519-0 #### [facility] CLIA [id number] [address] [place] [address] [facility] CNOVon 06-24-2023 CNOV Office Visit (RHEUAV ) LYNETTE HAIRSTON ([id number]) 1975 F Date Time Provider Department 06/24/23 11:20 AM NOEMI PHAM During your visit today, we recorded the following information about you: Pulse Respiration Blood pressure Weight 104/minute 20/minute 114/77 108.9 kg Height 1.676 m Noemi Pham MD 06/24/2023 12:23 PM Signed Lynette Prince is a 41 year [...] bursa injection Informed Consent Consent Obtained: Verbal [place] Protocol A moment to CARE was completed. [...] myopthay and (more content not included)... Normal [facility] CRP SerPl-ncon 06-24-2023 CRP [Mass/Vol] 0.6 mg/dL Normal <0.9 [facility] Comment on above: Order Comment: Speci men Type: BLOOD SPECIMEN Ordering Facility: [facility] Address: [address] [place] [address] Performed By: #### 2 157-6, 1987-11, #### [facility] CLIA [id number] [address] [place] [address] [place] Comprehensive metabolic 2000 panelon 06-24-2023 Albumin [Mass/Vol] 4.5 g/dL Normal 3.9-4.9 [facility] Comment on above: Order Comment: Speci men Type: BLOOD SPECIMEN Ordering Facility: [facility] Address: [address] [place] [address] Performed By: #### 2 157-6, #### [facility] CLIA [id number] [address] [place] [address] [place] ALP [Catalytic activity/Vol] 46 U/L Normal 34-123 [facility] Comment on above: Order Comment: Speci men Type: BLOOD SPECIMEN Ordering Facility: [facility] Address: [address] [place] [address] Performed By: #### 2 157-6, #### [facility] CLIA [id number] [address] [place] [address] [place] ALT [Catalytic activity/Vol] 46 U/L High 7-38 [facility] Comment on above: Order Comment: Speci men Type: BLOOD SPECIMEN Ordering Facility: [facility] Address: [address] [place] [address] Performed By: #### 2 157-6, 1987-11, #### [facility] CLIA [id number] [address] [place] [address] [place] Anion gap [Moles/Vol] 8 mmol/L Low 9-18 [facility] Comment on above: Order Comment: Speci men Type: BLOOD SPECIMEN Ordering Facility: [facility] Address: [address] [place] [address] Performed By: #### 2 157-6, 1987-11, #### [facility] CLIA [id number] [address] [place] [address] [place] AST [Catalytic activity/Vol] 39 U/L High 13-35 [facility] Comment on above: Order Comment: Speci men Type: BLOOD SPECIMEN Ordering Facility: [facility] Address: [address] [place] [address] Performed By: #### 2 157-6, 1987-11, #### [facility] CLIA [id number] [address] [place] [address] [place] Bilirubin [Mass/Vol] 1.2 mg/dL Normal 0.2-1.3 [facility] Comment on above: Order Comment: Speci men Type: BLOOD SPECIMEN Ordering Facility: [facility] Address: [address] [place] [address] Performed By: #### 2 157-6, 1987-11, #### [facility] CLIA [id number] [facility] [place] [address] [place] Calcium [Mass/Vol] 9.5 mg/dL Normal 8.5-10.2 [facility] Comment on above: Order Comment: Speci men Type: BLOOD SPECIMEN Ordering Facility: [facility] Address: [address] [place] [address] Performed By: #### 2 157-6, 1987-11, #### [facility] CLIA [id number] [address] [facility] [place] [address] [place] Chloride [Moles/Vol] 105 mmol/L Normal 97-105 [facility] Comment on above: Order Comment: Speci men Type: BLOOD SPECIMEN Ordering Facility: [facility] Address: [address] [place] [id number] Performed By: #### 2 157-6, #### [facility] CLIA [id number] [address] [place] [address] [place] CO2 [Moles/Vol] 27 mmol/L Normal 22-30 [facility] Comment on above: Order Comment: Speci men Type: BLOOD SPECIMEN Ordering Facility: [facility] Address: [address] [place] [address] Performed By: #### 2 157-6, #### [facility] CLIA [id number] [address] [place] [address] [place] Creatinine [Mass/Vol] 1.10 mg/dL High 0.58-0.96 [facility] Comment on above: Order Comment: Speci men Type: BLOOD SPECIMEN Ordering Facility: [facility] Address: [address] [place] [id number] Performed By: #### 2 157-6, #### [facility] CLIA [id number] [address] [place] [address] [place] Creatinine and Glomerular filtration rate.predicted panel (S/P/Bld) 62 mL/min/1.73m??? Normal >=60 [facility] Comment on above: Order Comment: Speci men Type: BLOOD SPECIMEN Ordering Facility[facility] Address: [address] [id number] Result Comment: Flores mated Glomerular Filtration Rate [...] GFR. Performed By: #### 2 157-6, #### [facility] CLIA [id number] [address] [place] [address] [place] Glucose [Mass/Vol] 94 mg/dL Normal 74-99 [facility] Comment on above: Order Comment: Speci men Type: BLOOD SPECIMEN Ordering Facility: [facility] Address: [address] [place] [address] Result Comment: The [place] Diabetes Association (ADA) provides guidance for cutoff [...] Standards of Medical Care in Diabetes 2016, [place] [employer]. Diabetes Care. 2016.39(Suppl 1). Performed By: #### 2 157, #### [facility] CLIA [id number] [address] [place] [address] [place] Potassium [Moles/Vol] 4.2 mmol/L Normal 3.7-5.1 [facility] Comment on above: Order Comment: Speci men Type: BLOOD SPECIMEN Ordering Facility: [facility] Address: [address] [place] [address] Performed By: #### 2 157-, #### [facility] CLIA [id number] [address] [place] [address] [place] Protein [Mass/Vol] 7.3 g/dL Normal 6.3-8.0 [facility] Comment on above: Order Comment: Speci men Type: BLOOD SPECIMEN Ordering Facility: [facility] Address: [address] [place] [address] Performed By: #### 2 1576, #### [facility] CLIA [id number] [address] [place] [address] [place] Sodium [Moles/Vol] 140 mmol/L Normal 136-144 [facility] kale Comment on above: Order Comment: Speci men Type: BLOOD SPECIMEN Ordering Facility: [facility] Address: [address] [id number] Performed By: #### 2 157-6, 1987-11, #### [facility] CLIA [id number] [address] [place] [address] [place] Urea nitrogen [Mass/Vol] 12 mg/dL Normal 7-21 [facility] Comment on above: Order Comment: Speci men Type: BLOOD SPECIMEN Ordering Facility: [facility] Address: [address] [id number] Performed By: #### 2 157-6, 1987-11, #### [facility] CLIA [id number] [address] [place] [address] [place] Albumin [Mass/Vol] 4.5 g/dL 3.9 - 4.9 g/dL [facility] ALP [Catalytic activity/Vol] 46 U/L 34 - 123 U/L [facility] ALT [Catalytic activity/Vol] 46 U/L High 7 - 38 U/L [facility] Anion gap [Moles/Vol] 8 mmol/L Low 9 - 18 mmol/L [facility] AST [Catalytic activity/Vol] 39 U/L High 13 - 35 U/L [facility] Bilirubin [Mass/Vol] 1.2 mg/dL 0.2 - 1.3 mg/dL [facility] Calcium [Mass/Vol] 9.5 mg/dL 8.5 - 10. 2 mg/dL [facility] Chloride [Moles/Vol] 105 mmol/L 97 - 105 mmol/L [facility] CO2 [Moles/Vol] 27 mmol/L 22 - 30 mmol/L [place] Creatinine [Mass/Vol] 1.10 mg/dL High 0.58 - 0.96 mg/dL [facility] Estimated Glomerular Filtration Rate 62 mL/min/1.73m >=60 mL/min/1.73m [facility] Glucose [Mass/Vol] 94 mg/dL 74 - 99 mg/dL [facility] Potassium [Moles/Vol] 4.2 mmol/L 3.7 - 5.1 mmol/L [facility] Protein [Mass/Vol] 7.3 g/dL 6.3 - 8.0 g/dL [facility] Sodium [Moles/Vol] 140 mmol/L 136 - 144 mmol/L [facility] Urea nitrogen [Mass/Vol] 12 mg/dL 7 - 21 mg/dL [facility] ESR Westergren method (Bld) [Velocity]on 06-24-2023 ESR (Bld) [Velocity] 23 mm/h High 0 - 20 mm/hr [facility] ESR (Bld) [Velocity] 23 mm/h High 0-20 [facility] Comment on above: Order Comment: Speci men Type: BLOOD SPECIMEN Ordering Facility: [facility] Address: [address] [place] [address] Performed By: #### 2 157-6, 1987-, 90730-1 #### [facility] CLIA [id number] [address] [place] [address] [place] No Panel Informationon 06-24 [facility] XR LUMBAR 3V AP/LAT/L5-S1on 06-24-2023 XR LUMBAR [...] DEGENERATIVE CHANGES AND LEVOSCOLIOSIS SIMILAR TO PRIOR. Combat Control: PSCB Transcribe Date/Time: Jun 24 2023 1:12P Dictated by : BRADY FELDMAN MD This examination was interpreted and the report reviewed and electronically signed by: BRADY FELDMAN MD on Jun 24 2023 1:14PM EST [id number] [facility] 05-12-2023 CNP Telephone (RHEUAV) LYNETTE HAIRSTON ([id number]) 1975 F Date Time Provider Department 05/12/23 NOEMI PHAM During your visit today, we recorded the following information about you: Minh Mosqueda 05/12/2023 1:20 PM Signed Ashwini from [employer] is calling Noemi Pham MD today to clarify medication. When they were filling the enbrel, it flagged that the patient has a thrombocytopenia diagnosis. They need to clarify that the provider is aware. They cannot send the medication until they get that clarification. [phone] Patient has been identified by name and birthdate. Duration of symptoms: N/A Person calling: pharmacy: [employer] [facility] Call patient at: on cell [phone] (home) [phone] (cell) Was an appointment scheduled: No Closing statement: Results or non-symptom based questions: Thank you for calling [facility], your call will be returned within the next business day. Allison Rodríguez OCCA 05/12/2023 1:29 PM Signed Faxed [employer], patient is no longer on medication Jonelle Flores Ma 05/19/2023 9:12 AM Signed Patient calling back. States she is on Enbrel. She takes it once a week and has not had it in about 2 weeks. She is starting to get pain. She is no longer on Plaquenil. Asking for the office to call [facility] to get this straightened out. She only had low platelets when she had covid. Please advise Inocencia Bui LPN 05/19/2023 9:58 AM Signed Order pended for Enbrel refill. Did call [facility] to verify medication is ok to refill. Most recent Rheumatology visit: 01/14/2023 (with Noemi Pham) Recent Office Visits - This Specialty 01/14/2023 Malar rash Rheumatology Noemi Pham MD 08/11/2022 Rheumatoid arthritis involving multiple sites, unspecified whether rheumatoid factor present (HCC) Rheumatology Noemi Pham MD 08/19/2021 Rheumatoid arthritis of multiple sites with negative rheumatoid factor (HCC) Rheumatology Noemi Pham MD Upcoming Rheumatology Appointments - Next 365 Days Visit Type Date Time Department [facility] 06/24/2023 11:20 AM [facility] REJ Last Ophthalmology Check for Plaquenil [...] 05/19/2023 10:06 AM Signed [facility]. I spoke with [facility] and informed them patient was cleared from [...] acting, (LOPR (more content not included)... Normal [facility] Miscellaneouson 03-24-2023 Send Out Report Normal [facility] Comment on above: Result Comment: PERF ORMED AT [employer] [address] [place] [address] (NOTE) Fat, Fecal Quantitative 72-Hour Collection (Includes Homogenization) [facility] test code 4452574 Fat, Fecal Quantitative 72-Hour 4.2 g/d (Ref Interval: 0.0-6.0) INTERPRETIVE INFORMATION: Fat, Fecal Quantitative 72-Hour Collection Access complete set of age- and/or gender-specific reference intervals for this test in the [facility] Test Directory ([facility]). This test was developed and its performance characteristics determined by [email or web address]. It has not been cleared or approved [...] g Performed By: #### C MIS #### [facility] [address] [place] [address] Boot And Shoe Repairman: Richie Alexis DO Miscellaneouson 03-22-2023 Test Name [address] [facility] Comment on above: Performed By: #### C MIS #### [facility] [address] [place] [address] Boot And Shoe Repairman: Richie Alexis DO CNPNon 03-09-[facility] LYNETTE HAIRSTON ([id number]) 1975 F Date Time Provider Department 03/09/23 NOEMI PHAM During your visit today, we recorded the following information about you: Noemi Pham MD 03/09/2023 1:38 PM Signed She can continue on the plaquenil bid, eye exam reviewed, no toxicity noted. MD Rosa Lopez Jud EVE 03/09/2023 1:59 PM Signed Patient stopped taking the Plaquenil d/t skin rash. Provider aware. Allergies As of Date: 03/09/2023 Noted Allergy Reaction MELOXICAM 11/23/2016 4 - Hives Comments: METHOTREXATE 12/25/2014 8 - GI Upset Date Reviewed: 01/14/2023 Reviewed by: Minna Mckinney RN - Fully Assessed Prescriptions as of 03/09/2023 [...] Status:Closed by JUD HESS [facility]PN [facility] N[facility] Tele[facility] (HYUN) LYNETTE HAIRSTON ([id number]) 1975 F Date Time Provider Department 01/28/23 NOEMI PHAM During your visit today, we recorded the following information about you: Abby Castaneda Pss 01/28/2023 10:42 AM Signed Patient would like [...] time she leaves from work. Jud Hess EVE 02/03/2023 2:30 PM Signed Lab req faxed [...] Encounter Status:Closed by BRIANDA PALOMARES on 01/31/23 [facility] Mary 01-26-2023 STACIAN Telephone (RHEUAV) LYNETTE HAIRSTON ([id number]) 1975 F Date Time Provider Department 01/26/23 NOEMI PHAM During your visit today, we recorded the following information about you: Gris aWrner RN 01/26/2023 8:38 AM Signed The pt [...] 01/26/2023 11:13 AM Signed Message sent on [employer] regarding this . Noemi Pham MD Allergies [...] Status:Closed by NOEMI PHAM on 01/26/23 Normal [facility] ANURAG BY IFA WITH REFLEXon Nuclear Ab IF (S) [Titer] Negative Normal Negative [facility] Comment on above: Order Comment: [address] Type: BLOOD SPECIMEN Ordering Facility[facility] Address: [address] [place] [address] Result Comment: Anti -nuclear antibody test is used as an aid in diagnosis of systemic autoimmune diseases. Where positive and clinically warranted, follow-up using disease-specific testing is recommended. Low positive titers are not uncommon with advanced age, certain chronic infections, and malignancies among others. Test methodology: Indirect fluorescence immunoassay (IFA) using HEp-2 cells. Performed By: #### 1 761-6 #### [facility] CLIA [id number] [address] [place] [address] [place] Aldolase SerPl-cCncon 2022 Aldolase [Catalytic activity/Vol] 8.8 mU/mL High 1.5-8.1 [facility] Comment on above: Order Comment: [address] Type: BLOOD SPECIMEN Ordering Facility[facility] Address: [address] [place] [address] Result Comment: This test was developed and its performance characteristics determined by [facility] [place] (RT-PLMI). It has not been cleared or approved by the FDA. RT-PLPR is regulated under CLIA as qualified to perform high-complexity testing. This test is used for clinical purposes. It should not be regarded as investigational or for research. Performed By: #### 1 761-6 #### [facility] CLIA [id number] [address] [place] [address] [place] CK SerPl-cCncon 01-14-2023 CK [Catalytic activity/Vol] 110 U/L Normal 42-196 [facility] Comment on above: Order Comment: [address] Type: BLOOD SPECIMEN [facility] Address: [address] [place] [address] Performed By: #### 1 761-6 #### [facility] CLIA [id number] [address] [place] [address] [place] CNOVon 01-14-2023 CNOV Office Visit (RHEUAV ) FRANTZLYNETTE Deshaun ([id number]) 1975 F Date Time Provider Department 01/14/23 11:00 AM NOEMI PHAM During your visit today, we recorded the following information about you: Pulse Blood pressure Weight Height 103/minute 122/81 105.7 kg 1.676 m Noemi Pham MD 01/24/2023 10:36 AM Signed Lynette Prince is a 41 [...] F/U: 6m Check following: -none MD Andrea Lopez, LOGISTICS ENGINEERING MANAGER 01/14/2023 11:48 AM Signed Verified 80mg depomedrol injection with Paty Mckinney LPN. Allergies As of Date: 01/14/2023 Noted Allergy Reaction MELOXICAM 11/23/2016 4 - Hives Comments: METHOTREXATE 12/25/2014 8 - GI Upset Date Reviewed: 01/14/2023 Reviewed by: Minna Mckinney RN - Fully Assessed Reason for Visit: Follow Up [171] Primary Visit Diagnosis:Malar rash [R21] Order(s):HISTONE IGG LAUREANO [SQHISTN] Order #: [id number] FUTURE ANURAG BY IFA WITH REFLEX [SQANAIFR] Order #: [id number] FUTURE ANURAG BLOOD [SQANAS] Order #: [id number] FUTURE ANTI LEVY ID [SQENAID] Order #: [id number] FUTURE SED RATE WESTERGREN [SQWSR] Order #: [id number] FUTURE C-REACTIVE PROTEIN (CRP) [SQCRP] Order #: [id number] FUTURE RHEUMATOID FACTOR BL [SQRF] Order #: [id number] FUTURE CK CREATINE KINASE [SQCK] Order #: [id number] FUTURE ALDOLASE BLD [SQALD] Order #: [id number] FUTURE [] methylPREDN (more content not included)... Normal [facility] CRP SerPl-mCncon 01-14-2023 CRP [Mass/Vol] 0.6 mg/dL Normal <0.9 [facility] Comment on above: Order Comment: Speci men Type: BLOOD SPECIMEN [facility] Address: [facility] [place] [address] Performed By: #### 2 157-6, 1987-, 99241-6 #### [facility] CLIA [id number] [address] [facility] [place] [address] [place] ESR Westergren method (Bld) [Velocity]on 01-14-2023 ESR (Bld) [Velocity] 16 mm/h Normal 0-20 [facility] Comment on above: Order Comment: [address] Type: BLOOD SPECIMEN [facility] Address: [address] [place] [address] Performed By: #### 1 761-6 #### [facility] CLIA [id number] [address] [place] [address] [place] HISTONE IGG ABYon 01-14-2023 HISTONE 0.1 Units Normal <1.0 [facility] Comment on above: Order Comment: [address] Type: BLOOD SPECIMEN [facility] Address: [address] [place] [address] Performed By: #### 1 761-6 #### [facility] CLIA [id number] [address] [place] [address] [place] HISTONE IGG QUALITATIVE Negative Normal [facility] Comment on above: Order Comment: [address] Type: BLOOD SPECIMEN Order[facility] Address: [address] [place] [address] Result Comment: Anti -histone IgG antibody test [...] required. Performed By: #### 1 761-6 #### [facility] [place] [id number] [address] [place] [address] [place] Nuclear Ab IA Ql (S)on 01-14 ANURAG SCR QUAL Negative Normal Negative [facility] Comment on above: Order Comment: [address] Type: BLOOD SPECIMEN Order[facility] Address: [address] [place] [address] Result Comment: The qualitative antinuclear antibody screen test performed using the following antigens: dsDNA, Chromatin, Ribosomal P, SS-A 60, SS-A 52, SS-B, Sm, SmRNP, PYTHON CONSULTANT A, PYTHON CONSULTANT 68, Scl-70, Odalis-1, and Centromere B. Methodology: Multiplex flow immunoassay. Performed By: #### 1 761-6 #### [facility] CLIA [id number] [address] [place] [address] [place] Rheumatoid fact SerPl-aCncon 01-14-2023 Rheumatoid factor Qn [IU]/mL High <16 [facility] Comment on above: Order Comment: Speci men Type: BLOOD SPECIMEN Order[facility] Address: [address] [id number] Performed By: #### 1 1572-5 #### [facility] CLIA [id number] [address] [place] [address] OF [facility] CNOVon 12-24-2022 CNOV Office Visit (NENMMN ) LYNETTE HAIRSTON ([id number]) 1975 F Date Time Provider Department 12/24/22 1:00 PM LIZ CONNOLLY During your visit today, we recorded the following information about you: Pulse Blood pressure 106/minute 121/84 Liz Connolly MD 01/04/2023 10:43 AM Signed [facility] [place] [facility] Note- Established patient Provider: Liz Connolly MD [...] that she has been following with her service member with every 6 monthly appointments to monitor [...] There is also been weight gain since [facility] (going from 223 pounds to about 235 [...] current facility-administ (more content not included)... Normal [facility] EMG(NEURO/NI)on 12-24-2022 [facility] Surgical Pathologyon 023 Surgical Pathology (NOTE) Path Number: [id number] -- Diagnosis -- Colon, random biopsies: Normal colonic mucosa. Deshaun Mcneil Electronically Signed Out rdd/12/21/2022 Clinical Information Pre-Op Diagnosis: ENCOPRESIS WITHOUT CONSTIPATION AND OVERFLOW INCONTINENCE Operative Findings: RANDOM COLON BIOPSIES TO CHECK FOR MICROSCOPIC COLITIS Operation Performed: COLONOSCOPY WITH BIOPSY cd Source of Specimen A: RANDOM COLON BXS TO CHECK FOR MICROSCOPIC COLITIS Gross Description HUMBERTO CHAVIS COLON BIOPSIES Received in formalin are multiple [...] is no dysplasia or malignancy. Processing Lab: [facility] [address] [place] [address] Interpretation Performed at [facility] [address] [place] [address] SURGICAL PATHOLOGY CONSULTATION Patient Name: LYNETTE HAIRSTON. [facility] Rec: [id number] [employer] [facility] ANATOMIC PATHOLOGY [address] [place], [place] [address] [facility] Comment on above: Performed By: #### P PPVS #### [employer] [address] [place] [address] Boot And Shoe Repairman: MD Mary Velazquez 12-01-2022 NAVEED Telephone (HYUN) LYNETTE HAIRSTON ([id number]) 1975 F Date Time Provider Department 12/01/22 [...] Status:Closed by INOCENCIA BUI LPN on 12/01/22 [facility] Mary 11-15-2022 NAVEED Telephone (SUNGUAV) LYNETTE HAIRSTON ([id number]) 1975 F Date Time Provider Department 11/15/22 NOEMI PHAM During your visit today, we recorded the following information about you: Noemi Pham MD 11/15/2022 1:23 PM Signed Please tell her I received labs from [facility] and her cpk and aldolase returned [...] Status:Closed by NOEMI PHAM on 11/15/22 Normal [facility] Orders Onlyon 10-28-2022 Orders Only [id number] Minh Hairston 1975 Provider Department Center 10/28/2022 CRISTHIAN MARIE MP [facility] Family History Family Status - Relation Status Age at Daughter Notes: pancreatic insuffiency Son Notes: Crohns Normal [facility] Labon 09-08-2022 Lab [id number] Minh Hairston 1975 [facility] Provider Department Center 09/08/[address] [place] [address] [facility] Family History Family Status - Relation Status Age at Daughter Notes: pancreatic insuffiency Son Notes: Crohns Normal [facility] Office Visiton 09-08-2022 Follow-up visit [id number] Minh Hairston 1975 Provider Department Center 09/08/2022 CRISTHIAN MARIE MP Medical [facility] Family History Family Status - Relation Status Age at Daughter Notes: pancreatic insuffiency Son Notes: Crohns Level of Service:00437 [place] OFFICE/OUTPATIENT ESTABLISHED MOD MDM 30-39 MIN Reason for Visit and Comments: Follow-up [933901] Diarrhea [35] Normal [facility] PANCREATIC ELASTASE, FECALon 09-08-2022 PANCREATIC ELASTASE, FECAL >800 Normal >=100 [facility] Comment on above: Result Comment: REFE RENCE INTERVAL: Pancreatic Elastase Fecal by Immunoassay Less than 100 ug/g............Severe insufficiency 100 - 199 ug/g................Moderate insufficiency 200 ug/g or greater...........Normal INTERPRETIVE INFORMATION: Pancreatic Elastase Fecal by Immunoassay Reference intervals do not apply for infants less than one month old. Performed by [email or web address], [address] [place] [address] [email or web address], Vito Arteaga MD, PHD, Lab. Director Performed By: #### L [id number] ####[facility] (BEAKER)[address] [place] [address] Aldolase SerPl-cCncon 2022 Aldolase [Catalytic activity/Vol] 9.9 mU/mL High 1.5-8.1 [facility] Comment on above: Order Comment: [place] [place] Type: BLOOD SPECIMEN Ordering [facility] Address: [address] [id number] Result Comment: This test was developed and its performance characteristics determined by [facility]'s [facility] Pathology and Laboratory Medicine [place] ([facility]). It has not been cleared or approved by the FDA. RT-PLMI is regulated under CLIA as qualified to perform high-complexity testing. This test is used for clinical purposes. It should not be regarded as investigational or for research. Performed By: #### 1 761-6 #### [facility] CLIA [id number] [address] [place] [address] [place] C-REACTIVE PROTEIN (CRP)on 0 08-11-2022 CRP [Mass/Vol] 0.8 mg/dL <0.9 mg/dL [facility] CBC panel Auto (Bld)on 08-11 Erythrocyte distribution width (RBC) [Ratio] 11.7 % Normal 11.5-15.0 [facility] Comment on above: Order Comment: [place] Type: BLOOD SPECIMEN Order[facility] Facility[facility] Address: [address] [place] [address] Performed By: #### 1 761-6 #### [facility] CLIA [id number] [address] STATES OF [facility] Hematocrit (Bld) [Volume fraction] 44.1 % Normal 36.0-46.0 [facility] Comment on above: Order Comment: Speci men Type: BLOOD SPECIMEN Ordering Facility[facility] Address: [address] Performed By: #### 1 761-6 #### [facility] CLIA [id number] [address] [place] Hemoglobin (Bld) [Mass/Vol] 15.2 g/dL Normal 11.5-15.5 [facility] Comment on above: Order Comment: Speci men Type: BLOOD SPECIMEN Ordering Facility[facility] Address: [address] Performed By: #### 1 761-6 #### [facility] CLIA [id number] [address] [place] [address] [place] MCH (RBC) [Entitic mass] 31.7 pg Normal 26.0-34.0 [facility] Comment on above: Order Comment: Speci men Type: BLOOD SPECIMEN Ordering [facility] Address: [address] Performed By: #### 1 761-6 #### [facility] CLIA [id number] [address] [place] [address] [place] MCHC (RBC) [Mass/Vol] 34.5 g/dL Normal 30.5-36.0 [facility] Comment on above: Order Comment: Speci men Type: BLOOD SPECIMEN Ordering [facility] Address: [address] Performed By: #### 1 761-6 #### [facility] CLIA [id number] [address] [place] [address] [place] MCV (RBC) [Entitic vol] 92.1 fL Normal 80.0-100.0 [facility] Comment on above: Order Comment: Speci men Type: BLOOD SPECIMEN Order[facility] Address: [address] Performed By: #### 1 761-6 #### [facility] [facility] CLIA [id number] [address] [place] [address] [place] Nucleated RBC (Bld) [#/Vol] 10*3/uL Normal <0.01 [facility] Comment on above: Order Comment: Speci men Type: BLOOD SPECIMEN Ordering Facility: [facility] Address: [address] [place], [place] [address] Performed By: #### 1 761-6 #### [facility] CLIA [id number] [address] [place] [address] [place] Platelet mean volume (Bld) [Entitic vol] 11.0 fL Normal 9.0-12.7 [facility] Comment on above: Order Comment: Speci men Type: BLOOD SPECIMEN Ordering Facility: [facility] Address: [address] [place], [place] [address] Performed By: #### 1 761-6 #### [facility] CLIA [id number] [address] [place] [address] [place] Platelets (Bld) [#/Vol] 205 10*3/uL Normal 150-400 [facility] Comment on above: Order Comment: Speci men Type: BLOOD SPECIMEN Ordering Facility: [facility] Address: [address] [place] [address] Performed By: #### 1 761-6 #### [facility] CLIA [id number] [address] [place] [address] [place] RBC (Bld) [#/Vol] 4.79 10*6/uL Normal 3.90-5.20 [facility] Comment on above: Order Comment: Speci men Type: BLOOD SPECIMEN Ordering Facility: [facility] Address: [address] [place] [address] Performed By: #### 1 761-6 #### [facility] CLIA [id number] [address] [place] [address] OF [facility] WBC (Bld) [#/Vol] 9.49 10*3/uL Normal 3.70-11.00 [facility] Comment on above: Order Comment: Speci men Type: BLOOD SPECIMEN Ordering Facility: [facility] Address: [address] [place] [address] Performed By: #### 1 761-6 #### [facility] CLIA [id number] [address] [facility] [address] STATES OF [facility] Erythrocyte distribution width (RBC) [Ratio] 11.7 % 11.5 - 15.0 % [facility] Hematocrit (Bld) [Volume fraction] 44.1 % 36.0 - 46.0 % [facility] Hemoglobin (Bld) [Mass/Vol] 15.2 g/dL 11.5 - 15.5 g/dL [facility] MCH (RBC) [Entitic mass] 31.7 pg 26.0 - 34.0 pg [facility] MCHC (RBC) [Mass/Vol] 34.5 g/dL 30.5 - 36.0 g/dL [facility] MCV (RBC) [Entitic vol] 92.1 fL 80.0 - 100.0 fL [facility] Nucleated RBC (Bld) [#/Vol] <0.01 k/uL [facility] Platelet mean volume (Bld) [Entitic vol] 11.0 fL 9.0 - 12.7 fL [facility] Platelets (Bld) [#/Vol] 205 10*3/uL 150 - 400 k/uL [facility] RBC (Bld) [#/Vol] 4.79 10*6/uL 3.90 - 5.2 0 m/uL [facility] WBC (Bld) [#/Vol] 9.49 10*3/uL 3.70 - 11. 00 k/uL [facility] CK CREATINE KINASEon 023 CK [Catalytic activity/Vol] 115 U/L 42 - 196 U/L [facility] CK SerPl-cCncon 08-11-2022 CK [Catalytic activity/Vol] 115 U/L Normal 42-196 [facility] Comment on above: Order Comment: Lynni men Type: BLOOD SPECIMEN Ordering Facility: [facility] Address: [address] [place] [address] Performed By: #### 1 761-6 #### [facility] CLIA [id number] [address] [facility] [place]K [id number] [id number] [place] CNOVon 08-11-2022 CNOV Office Visit (RHEUAV ) LYNETTE HAIRSTON ([id number]) 1975 F Date Time Provider Department 08/11/22 9:40 AM NOEMI PHAM During your visit today, we recorded the following information about you: Pulse Blood pressure Weight 94/minute 118/73 102.5 kg Noemi Pham MD 08/11/2022 10:21 AM Signed Lynette Meade Crescencio is a [...] 6m Check following: -none MD Inocencia Lopez LOGISTICS ENGINEERING MANAGER 08/11/2022 10:21 AM Signed Methylprednisolone injection verified. 80mg. Jud Hess LOGISTICS ENGINEERING MANAGER 08/11/2022 11:22 AM Signed Patient given Depomedrol 80 mg IM in the lef (more content not included)... Normal [facility] CRP SerPl-mCncon 08-11-2022 CRP [Mass/Vol] 0.8 mg/dL Normal <0.9 [facility] Comment on above: Order Comment: Speci men Type: BLOOD SPECIMEN Ordering Facility: [facility] Address: [address] [place], [place] [address]Agatha RUCKER, [place] [address] Performed By: #### 2 4323-8, 1987-11 #### [facility] CLIA [id number] [address] [facility] [place] [address] [place] Comprehensive metabolic 2000 panelon 08-11-2022 Albumin [Mass/Vol] 4.6 g/dL Normal 3.9-4.9 [facility] Comment on above: Order Comment: Speci men Type: BLOOD SPECIMEN Ordering Facility: [facility] Address: [address] Performed By: #### 2 4323-02, 1987-11 #### [facility] CLIA [id number] [address] [place] [address] [place] ALP [Catalytic activity/Vol] 44 U/L Normal 34-123 [facility] Comment on above: Order Comment: Speci men Type: BLOOD SPECIMEN Ordering Facility: [facility] Address: [address] Performed By: #### 2 4323-02, 1987-11 #### [facility] CLIA [id number] [address] [place] [address] [place] ALT [Catalytic activity/Vol] 32 U/L Normal 7-38 [facility] Comment on above: Order Comment: Speci men Type: BLOOD SPECIMEN Ordering Facility: [facility] Address: [address] Performed By: #### 2 4323-02, 1987-11 #### [facility] CLIA [id number] [address] [place] [address] [place] Anion gap [Moles/Vol] 9 mmol/L Normal 9-18 [facility] Comment on above: Order Comment: Speci men Type: BLOOD SPECIMEN Ordering Facility: [facility] Address: [address] [place] [address] Performed By: #### 2 4323-02, 1987-11 #### [facility] CLIA [id number] [address] [place] [address] [place] AST [Catalytic activity/Vol] 26 U/L Normal 13-35 [facility] Comment on above: Order Comment: Speci men Type: BLOOD SPECIMEN Ordering Facility: [facility] Address: [address] Performed By: #### 2 4323-02, 1987-11 #### [facility] CLIA [id number] [address] [place] [address] [place] Bilirubin [Mass/Vol] 0.9 mg/dL Normal 0.2-1.3 [facility] Comment on above: Order Comment: Speci men Type: BLOOD SPECIMEN Ordering Facility: [facility] Address: [address] [place] [address] Performed By: #### 2 4323-02, 1987-11 #### [facility] CLIA [id number] [address] [place] [address] [place] Calcium [Mass/Vol] 10.5 mg/dL High 8.5-10.2 [facility] Comment on above: Order Comment: Speci men Type: BLOOD SPECIMEN Ordering Facility: [facility] Address: [address] [place] [address] Performed By: #### 2 4323-02, 1987-11 #### [facility] [place] [id number] [address] [place] [address] [place] Chloride [Moles/Vol] 102 mmol/L Normal 97-105 [facility] Comment on above: Order Comment: Speci men Type: BLOOD SPECIMEN Ordering Facility: [facility] Address: [address] [place] [address] Performed By: #### 2 4323-02, 1987-11 #### [facility] IA [id number] [address] [place] [address] [place] CO2 [Moles/Vol] 29 mmol/L Normal 22-30 [facility] Comment on above: Order Comment: Speci men Type: BLOOD SPECIMEN Ordering Facility: [facility] Address: [address] [place] [address] Performed By: #### 2 4323-02, 1987-11 #### [facility] IA [id number] [address] [place] [address] [place] Creatinine [Mass/Vol] 0.93 mg/dL Normal 0.58-0.96 [facility] Comment on above: Order Comment: Speci men Type: BLOOD SPECIMEN Ordering Facility: [facility] Address: [address] [place] [id number] Performed By: #### 2 4323, 1987-11 #### [facility] CLIA [id number] [address] [place] [id number] [place] ESTIMATED GLOMERULAR FILTRATION RATE 76 mL/min/1.73m??? Normal >=60 [facility] Comment on above: Order Comment: Mert del valle Type: BLOOD SPECIMEN Ordering Facility: [facility] Address: [address] Result Comment: Flores mated Glomerular Filtration Rate [...] Performed By: #### 2 43238, 1987-11 #### [facility] CLIA [id number] [address] [place] [address] [place] Glucose [Mass/Vol] 97 mg/dL Normal 74-99 [facility] Comment on above: Order Comment: Mert del valle Type: BLOOD SPECIMEN Ordering Facility: [facility] Address: [address] [place] [address] Result Comment: The [place] [employer] (ADA) provides guidance for cutoff [...] Standards of Medical Care in Diabetes 2016, [place] [employer]. Diabetes Care. 2016.39(Suppl 1). Performed By: #### 2 43238, 1987-11 #### [facility] CLIA [id number] [address] [place] [address] [place] Potassium [Moles/Vol] 4.7 mmol/L Normal 3.7-5.1 [facility] Comment on above: Order Comment: Speci men Type: BLOOD SPECIMEN Ordering Facility: [facility] Address: [address] [place] [address] Performed By: #### 2 43209-29, 1987-11 #### [facility] CLIA [id number] [address] [place] [address] [place] Protein [Mass/Vol] 7.6 g/dL Normal 6.3-8.0 [facility] Comment on above: Order Comment: Speci men Type: BLOOD SPECIMEN Ordering Facility: [facility] Address: [address] [place] [address] Performed By: #### 2 4323-02, 1987-11 #### [facility] IA [id number] [address] [place] [address] [place] Sodium [Moles/Vol] 140 mmol/L Normal 136-144 [facility] Comment on above: Order Comment: Speci men Type: BLOOD SPECIMEN Ordering Facility: [facility] Address: [address] [place] [address] Performed By: #### 2 4323-02, 1987-11 #### [facility] IA [id number] [address] [place] [address] [place] Urea nitrogen [Mass/Vol] 15 mg/dL Normal 7-21 [facility] Comment on above: Order Comment: Speci men Type: BLOOD SPECIMEN Ordering Facility: [facility] Address: [address] Performed By: #### 2 4323-02, 1987-11 #### [facility] IA [id number] [address] [place] [address] [place] Albumin [Mass/Vol] 4.6 g/dL 3.9 - 4.9 g/dL [facility] ALP [Catalytic activity/Vol] 44 U/L 34 - 123 U/L [facility] ALT [Catalytic activity/Vol] 32 U/L 7 - 38 U/L [facility] Anion gap [Moles/Vol] 9 mmol/L 9 - 18 mmol/L [facility] AST [Catalytic activity/Vol] 26 U/L 13 - 35 U/L [facility] Bilirubin [Mass/Vol] 0.9 mg/dL 0.2 - 1.3 mg/dL [facility] Calcium [Mass/Vol] 10.5 mg/dL High 8.5 - 10. 2 mg/dL [facility] Chloride [Moles/Vol] 102 mmol/L 97 - 105 mmol/L [facility] CO2 [Moles/Vol] 29 mmol/L 22 - 30 mmol/L [place] Creatinine [Mass/Vol] 0.93 mg/dL 0.58 - 0.96 mg/dL [facility] Estimated Glomerular Filtration Rate 76 mL/min/1.73m >=60 mL/min/1.73m [facility] Glucose [Mass/Vol] 97 mg/dL 74 - 99 mg/dL [facility] Potassium [Moles/Vol] 4.7 mmol/L 3.7 - 5.1 mmol/L [facility] Protein [Mass/Vol] 7.6 g/dL 6.3 - 8.0 g/dL [facility] Sodium [Moles/Vol] 140 mmol/L 136 - 144 mmol/L [facility] Urea nitrogen [Mass/Vol] 15 mg/dL 7 - 21 mg/dL [facility] ESR Westergren method (Bld) [Velocity]on 08-11-2022 ESR (Bld) [Velocity] 23 mm/h High 0 - 20 mm/hr [facility] ESR (Bld) [Velocity] 23 mm/h High 0-20 [facility] Comment on above: Order Comment: Speci men Type: BLOOD SPECIMEN Ordering Facility[facility] Address: [address] [place] [address] Performed By: #### 1 761-6 #### [facility] CLIA [id number] [address] [facility] [id number] [place] [address] [place] XR elbow RT 2Von 07-30-2022 XR elbow RT 2V [facility] [address] [place] [address] XRay Report Signed Patient: Lynette Hairston MR#: [id number] 46 : 1975 Acct:[id number] Age/Sex: 47 / F ADM Date: 07/30/22 Loc: [facility] [place] Room: Type: [facility] Attending Dr: Jud Monson NP-C Copies to: GOLD Degroot Ordering Provider: GOLD [...] PROCESS. Impression dictated by: Jeremie Martines Jr., D.O.07/30/2022 12:09 PM Dictation Location: [place] [address] Transcribed By: [facility] 07/30/22 1209 Dictated By: Jeremie Martines Jr, DO 07/30/22 1209 Signed By: 07/30/22 1209 [facility] Orders Onlyon 07-15-2022 Orders Only [id number] Minh Hairston Deshaun 1975 F Date Provider Department Center 07/15/2022 CRISTHIAN MARIE [facility] No family history on file Normal [facility] Orders Onlyon 07-09-2022 Orders Only [id number] HairstonMinh destiny Meade 1975 F Date Provider Department Center 07/09/2022 CRISTHIAN MARIE [facility] No family history on file Normal [facility] Orders Onlyon 06-28-2022 Orders Only [id number] Minh Hairston Deshaun 1975 F Date Provider Department Center 06/28/2022 CRISTHIAN MARIE MP [facility] No family history on file [facility] 36on 06-24-2022 36 Pt calling wanting t o know what the next steps are now that her labs and stools are back. She will be having mychart set up for your response to her. [facility] Orders Onlyon 06-16-2022 Orders Only [id number] HairstonMinh 1975 Provider Department [place] 06/16/2022 CRISTHIAN MARIE [facility] No family history on file [facility] Orders Onlyon 06-07-2022 Orders Only [id number] Minh Hairston 1975 Date Provider Department Center 06/07/2022 CRISTHIAN MARIE [facility] No family history on file [facility] 36on 05-31-2022 36 Patient called with concerns over her platelets. Patient states that she had labs drawn recently outside of [facility] and her platelets were at 96. Patient is concerned regarding this and is inquiring if there is anything she should do. I explained to the patient that we do not have these results in the system for her, however, she is going to call and have them faxed to us so you can review them. Please advise. [facility] 37on 05-26-2022 37 Take fiber supplemen ts along with plenty of water. Supplements include: Psyllium (sample brand name: Metamucil) Methylcellulose (sample brand name: Citrucel) Calcium polycarbophil (sample brand name: FiberCon) Wheat dextrin (sample brand name: Benefiber) Start slow with ??? Tablespoon every other day, then gradually increase to 1-2 tablespoons/day. [facility] Office Visiton 05-26-2022 Follow-up visit [id number] Minh Hairston 1975 Provider Department Center 05/26/2022 CRISTHIAN MARIE [facility] No family history on file Level of Service:10358 HI OFFICE/OUTPATIENT ESTABLISHED MOD MDM 30-39 MIN Reason for Visit and Comments: Diarrhea [35] Follow-up [716661] - Patient states she has randomly lost control of her bowels in the recent weeks. [facility] XR CERVICAL SPINE (2-3 VIEWS )on [...] Boubacar Louis MD 02/07/21 Final result Normal [facility] XR CERVICAL SPINE (2-3 VIEWS )Ordered By: Garfield Restrepo on 02-07-2021 No acute osseous abnormality. [employer] Phone: EXAMINATION: XRAY VIEWS OF THE CERVICAL SPINE 02/07/2021 12:33 pm COMPARISON: None. HISTORY: ORDERING SYSTEM PROVIDED HISTORY: right arm pain TECHNOLOGIST PROVIDED HISTORY: right arm pain Reason for Exam: RUE pain Acuity: Chronic Type of Exam: Initial FINDINGS: Vertebral body height and alignment are maintained. There are minimal degenerative changes. There is no evidence of fracture or malalignment. [employer] Phone: Rashid, pn Incoming Radiant Results From [employer] - 02/07/2021 1:12 PM EDT EXAMINATION: XRAY [...] or malalignment. IMPRESSION: No acute osseous abnormality. [employer] Phone: [employer] Phone: Basic Metab w/rfx MGon 01-19 (cont.) Normal [facility] Comment on above: Result Comment: Aver age GFR for 40-49 years old: 99 mL/min/1.73sq m Chronic Kidney Disease: <60 mL/min/1.73sq m Kidney failure: <15 mL/min/1.73sq m eGFR calculated using average adult body mass. Additional eGFR calculator available at: http://www.Croak.it.com/multiple_crcl_2012.htm Performed By: #### C DP, BMPX #### [place] [address] Boot And Shoe Repairman: Brady Chan MD Anion gap [Moles/Vol] 8 mmol/L Low 9-17 [facility] Comment on above: Performed By: #### C DP, BMPX #### [place] [address] [employer] And Shoe Repairman: Brady Chan MD Calcium [Mass/Vol] 9.4 mg/dL Normal 8.6-10.4 [facility] Comment on above: Performed By: #### C DP, BMPX #### [place] [address] [employer] Shoe Repairman: Brady Chan MD Chloride [Moles/Vol] 103 mmol/L Normal 98-107 [facility] Comment on above: Performed By: #### C DP, BMPX #### [place] [address] [employer] Shoe Repairman: Brady Chan MD CO2 [Moles/Vol] 27 mmol/L Normal 20-31 [facility] Comment on above: Performed By: #### C DP, BMPX #### [place] [address] [employer] And Shoe Repairman: Brady Chan MD Creatinine [Mass/Vol] 0.73 mg/dL Normal 0.50-0.90 [facility] Comment on above: Performed By: #### C DP, BMPX #### [place] [address] [employer] Shoe Repairman: Brady Chan MD GFR, Amer >60 Normal >60 [facility] Comment on above: Performed By: #### C DP, BMPX #### [address] [address] [employer] And Shoe Repairman: Brady Chan MD GFR,non Amer >60 Normal >60 [facility] Comment on above: Performed By: #### C DP, BMPX #### [address] [address] [employer] And Shoe Repairman: Brady Chan MD Glucose [Mass/Vol] 107 mg/dL High 70-99 [facility] Comment on above: Performed By: #### C DP, BMPX #### [address] [address] [employer] And Shoe Repairman: Brady Chan MD Potassium [Moles/Vol] 3.8 mmol/L Normal 3.7-5.3 [facility] Comment on above: Performed By: #### C DP, BMPX #### [address] [address] [employer] And Shoe Repairman: Brady Chan MD Sodium [Moles/Vol] 138 mmol/L Normal 135-144 [facility] Comment on above: Performed By: #### C DP, BMPX #### [address] [address] [employer] Repairman: Brady Chan MD Urea nitrogen [Mass/Vol] 11 mg/dL Normal 6-20 [facility] Comment on above: Performed By: #### C DP, BMPX #### [address] [address] [employer] Shoe Repairman: Brady Chan MD BUN/CRE Ratio NOT REPORTED Normal 9-20 [facility] Comment on above: Performed By: #### C DP, BMPX #### [place] [address] [employer]oe Repairman: Brady Chan MD Staging: NOT REPORTED Normal [facility] Comment on above: Performed By: #### C DP, BMPX #### [place] [address] [employer] Repairman: Brady Chan MD CBC with Diffon 01-19-2021 Abs. Basophil 0.10 k/uL Normal 0.0-0.2 [facility] Comment on above: Performed By: #### C DP, BMPX #### [place] [address] [employer] Shoe Repairman: Brady Chan MD Abs.Neutrophil (Seg) 4.30 k/uL Normal 1.8-7.7 [facility] Comment on above: Performed By: #### C DP, BMPX #### [place] [address] [employer] Repairman: Brady Chan MD Basophils/100 WBC (Bld) 1 % Normal 0-2 [facility] Comment on above: Performed By: #### C DP, BMPX #### [place] [address] [employer] Repairman: Brady Chan MD Eosinophils (Bld) [#/Vol] 0.10 10*3/uL Normal 0.0-0.4 [facility] Comment on above: Performed By: #### C DP, BMPX #### [place] [address] [employer] And Shoe Repairman: Brady Chan MD Eosinophils/100 WBC (Bld) 2 % Normal 1-4 [facility] Comment on above: Performed By: #### C DP, BMPX #### [place] [address] [employer]oe Repairman: Brady Chan MD Erythrocyte distribution width (RBC) [Ratio] 13.0 % Normal 12.5-15.4 [facility] Comment on above: Performed By: #### C DP, BMPX #### [place] [address] [employer] Sh[employer] Repairman: Brady Chan MD Hematocrit (Bld) [Volume fraction] 41.3 % Normal 36-46 [facility] Comment on above: Performed By: #### C DP, BMPX #### [place] [address] [employer] Shoe Repairman: Brady Chan MD Hemoglobin (Bld) [Mass/Vol] 14.1 g/dL Normal 12.0-16.0 [facility] Comment on above: Performed By: #### C DP, BMPX #### [place] [address] [employer] Shoe Repairman: Brady Chan MD Lymphocytes (Bld) [#/Vol] 3.10 10*3/uL Normal 1.0-4.8 [facility] Comment on above: Performed By: #### C DP, BMPX #### [place] [address] [employer] And Shoe Repairman: Brady Chan MD Lymphocytes/100 WBC (Bld) 37 % Normal 24-44 [facility] Comment on above: Performed By: #### C DP, BMPX #### [address] [place] [address] [employer] And Shoe Repairman: Brady Chan MD MCH (RBC) [Entitic mass] 31.2 pg Normal 26-34 [facility] Comment on above: Performed By: #### C DP, BMPX #### [place] [address] [employer]oe Repairman: Brady Chan MD MCHC (RBC) [Mass/Vol] 34.2 g/dL Normal 31-37 [facility] Comment on above: Performed By: #### C DP, BMPX #### [place] [address] [employer] Shoe Repairman: Brady Chan MD MCV (RBC) [Entitic vol] 91.1 fL Normal 80-100 [facility] Comment on above: Performed By: #### C DP, BMPX #### [place] [address] [employer] Repairman: Brady Chan MD Monocytes (Bld) [#/Vol] 0.70 10*3/uL Normal 0.1-1.2 [facility] Comment on above: Performed By: #### C DP, BMPX #### [place] [address] [employer] Sh[employer] Repairman: Brady Chan MD Monocytes/100 WBC (Bld) 8 % Normal 2-11 [facility] Comment on above: Performed By: #### C DP, BMPX #### [place] [address] [employer]oe Repairman: Brady Chan MD Neutrophil (Seg) 52 % Normal 36-66 [facility] Comment on above: Performed By: #### C DP, BMPX #### [place] [address] [employer] And Shoe Repairman: Brady Chan MD Platelet mean volume (Bld) [Entitic vol] 8.4 fL Normal 6.0-12.0 [facility] Comment on above: Performed By: #### C DP, BMPX #### [place] [address] [employer]oe Repairman: Brady Chan MD Platelets (Bld) [#/Vol] 199 10*3/uL Normal 140-450 [facility] Comment on above: Performed By: #### C DP, BMPX #### [place] [address] [employer] Repairman: Brady Chan MD RBC (Bld) [#/Vol] 4.54 10*6/uL Normal 4.0-5.2 [facility] Comment on above: Performed By: #### C DP, BMPX #### [place] [address] [employer] And Shoe Repairman: Brady Chan MD WBC (Bld) [#/Vol] 8.2 10*3/uL Normal 3.5-11.0 [facility] Comment on above: Performed By: #### C DP, BMPX #### [place] [address] [employer] And Shoe Repairman: Brady Chan MD Abs.Imm.Granulocyte NOT REPORTED Normal 0.00-0.30 [facility] Comment on above: Performed By: #### C DP, BMPX #### [place] [address] Boot And Shoe Repairman: Brady Chan MD Auto Diff Performed NOT REPORTED Normal [facility] Comment on above: Performed By: #### C DP, BMPX #### [facility] [address] [place] [address] Boot And Shoe Repairman: Brady Chan MD Immature Granulocyte NOT REPORTED Normal 0 [facility] Comment on above: Performed By: #### C DP, BMPX #### [place] [address] Boot And Shoe Repairman: Brady Chan MD NRBC Automated NOT REPORTED Normal [facility] Comment on above: Performed By: #### C DP, BMPX #### [place] [address] Boot And Shoe Repairman: Brady Chan MD Platelet Estimate NOT REPORTED Normal [facility] Comment on above: Performed By: #### C DP, BMPX #### [place] [address] Boot And Shoe Repairman: Brady Chan MD RBC morphology finding Nom (Bld) NOT REPORTED Normal [facility] Comment on above: Performed By: #### C DP, BMPX #### [place] [address] Boot And Shoe Repairman: Brady Chan MD WBC Morphology NOT REPORTED Normal [facility] Comment on above: Performed By: #### C DP, BMPX #### [place] [address] Boot And Shoe Repairman: Brady Chan MD US DUP LOWER EXTREMITY [...] Gold Honeycutt MD 01/19/21 Final result Normal [facility] ABDOMEN 1VWon 08-08-2020 ABDOMEN 1VW [facility] Department of Radiology [address] [place] [address] ======== Patient Name: LYNETTE PRINCE : 1975 Sex: F Age: Race: NA Pt. Location: 260 Patient Status: O Ordered Date: 08/08/2020 10:50:00 AM Completed Date: 08/08/2020 10:47 AM Requesting Provider: CRISTHIAN FALCON Attending Provider: CRISTHIAN FALCON Report Copy To: Signs & Symptoms: K59.00 Constipation, unspecified I10 History: [place] Comments: please evaluate for fecal over load [...] projections. Electronically signed: Brady Shen. Transcribed by: [email or web address], User Resident: Electronically Signed by: BRADY SHEN @ 08/08/2020 03:15 PM Normal [facility] Comment on above: Order Comment: pleas e evaluate for fecal over load AFP TUMOR MARKER [id number] AFP TUMOR MARKER 2 ng/mL Normal 0-9 [facility] Comment on above: Result Comment: INTE RPRETIVE [...] reference intervals for this test in the [facility] Test Directory ([facility]). Performed By: [email or web address] [address] [place] [address] Calendering Supervisor: Radha Horton MD ANAon 08-08-2020 Nuclear Ab IF (S) [Titer] <1:40 Normal <1:40,1:40 [facility] Comment on above: Performed By: #### 1 9926, 25531 #### [facility] [address] [place] [address], [facility] BASIC METABOLIC PANELon 07-25 Calcium [Mass/Vol] 9.3 mg/dL Normal 8.6-10.3 The [facility] Comment on above: Performed By: #### 9 9908, 43313 #### [facility] [address] [place] [address], [place] Chloride [Moles/Vol] 104 mmol/L Normal 98-107 [facility] Comment on above: Performed By: #### 9 9908, 80782 #### [facility] [address] [place] [address], [place] CO2 [Moles/Vol] 25 mmol/L Normal 21-31 The [facility] Comment on above: Performed By: #### 9 9908, 23365 #### [facility] [address] [place] [address], [place] Creatinine [Mass/Vol] 0.93 mg/dL Normal 0.60-1.20 [facility] Comment on above: Performed By: #### 9 9908, 55480 #### [facility] [address] [place] [address], [place] GFR/1.73 sq M predicted among blacks MDRD (S/P/Bld) [Vol rate/Area] mL/min/{1.73_m2} Normal >60 [facility] Comment on above: Performed By: #### 9 9908, 41530 #### [facility] [address] [place] [address], [place] GFR/1.73 sq M predicted among non-blacks MDRD (S/P/Bld) [Vol rate/Area] mL/min/{1.73_m2} Normal >60 [facility] Comment on above: Performed By: #### 9 9908, 55453 #### [facility] [address] [place] [address], [place] Glucose [Mass/Vol] 97 mg/dL Normal 70-100 [facility] Comment on above: Performed By: #### 9 9908, 08691 #### [facility] [address] [place] [address], [facility] Potassium [Moles/Vol] 3.9 mmol/L Normal 3.5-5.1 [facility] Comment on above: Performed By: #### 9 9909, 90509 #### [facility] [address] [place] [id number], [facility] Sodium [Moles/Vol] 137 mmol/L Normal 136-145 [facility] Comment on above: Performed By: #### 9 99, 53419 #### [facility] [address] [facility]. [address] Urea nitrogen [Mass/Vol] 15 mg/dL Normal 7-25 [facility] Comment on above: Performed By: #### 9 9909, 20994 #### [facility] [address] [facility]. [address] CBC W/DIFFon 08-08-2020 ABS BASOPHILS 0.1 10*3/uL Normal 0.0-0.2 The [facility] Comment on above: Performed By: #### 5 0103 #### [facility] [address] [facility]. [address] ABS IMM GRANS 0.0 10*3/uL Normal 0.0-0.2 [facility] Comment on above: Performed By: #### 5 0103 #### [facility] [address] [facility]. [address] ABS NEUTROPHILS 4.4 10*3/uL Normal 1.6-7.6 The [facility] Comment on above: Performed By: #### 5 0103 #### [facility] [address] [facility] [place] [address], [facility] Basophils/100 WBC (Bld) 0.9 % Normal 0.0-1.0 [facility] Comment on above: Performed By: #### 5 0103 #### [facility] [address] Eosinophils (Bld) [#/Vol] 0.1 10*3/uL Normal 0.0-0.5 [facility] Comment on above: Performed By: #### 5 0103 #### [facility] [address] [facility] [place] [address], [facility] Eosinophils/100 WBC (Bld) 1.1 % Normal 0.0-6.0 [facility] Comment on above: Performed By: #### 5 0103 #### [facility] [address] Erythrocyte distribution width (RBC) [Ratio] 13.0 % Normal 11.5-15.0 [facility] Comment on above: Performed By: #### 5 102 #### [facility] [address] [facility]. [address] Hematocrit (Bld) [Volume fraction] 42.8 % Normal 36.0-45.0 [facility] Comment on above: Performed By: #### 5 3 #### [facility] [address] Hemoglobin (Bld) [Mass/Vol] 14.7 g/dL Normal 12.0-15.0 [facility] Comment on above: Performed By: #### 5 0103 #### [facility] [address] [facility]. [address] IMMATURE GRANS 0.3 % Normal 0.0-1.0 [facility] Comment on above: Performed By: #### 5 3 #### [facility] [address] [place] [address], [facility] Lymphocytes (Bld) [#/Vol] 2.2 10*3/uL Normal 1.2-4.0 [facility] Comment on above: Performed By: #### 5 3 #### [facility] [address] [place] [address], [facility] Lymphocytes/100 WBC (Bld) 30.0 % Normal 20.0-45.0 [facility] Comment on above: Performed By: #### 5 0103 #### [facility] [address] [facility] [place] [address], [facility] MCH (RBC) [Entitic mass] 31.4 pg Normal 27.0-33.0 [facility] Comment on above: Performed By: #### 5 0103 #### [facility] [address] [facility] [place] [address], [facility] MCHC (RBC) [Mass/Vol] 34.3 g/dL Normal 32.0-35.0 [facility] Comment on above: Performed By: #### 3 #### [facility] [address] [facility] [place] [address], [facility] MCV (RBC) [Entitic vol] 91.5 fL Normal 82.0-98.0 [facility] Comment on above: Performed By: #### 5 3 #### [facility] [address] [place] [address], [facility] Monocytes (Bld) [#/Vol] 0.6 10*3/uL Normal 0.1-1.0 [facility] Comment on above: Performed By: #### 5 0103 #### [facility] [address] [facility] [place] [address], [facility] MONOS 8.6 % Normal 5.0-12.0 [facility] Comment on above: Performed By: #### 5 3 #### [facility] [address] [place] [address], [facility] Neutrophils/100 WBC (Bld) 59.1 % Normal 40.0-72.0 [facility] Comment on above: Performed By: #### 5 3 #### [facility] [address] Nucleated RBC/100 WBC (Bld) [Ratio] 0 % Normal 0-0 [facility] Comment on above: Performed By: #### 5 0103 #### [facility] [address] PLAT CNT 163 10*3/uL Normal 150-400 The [facility] Comment on above: Performed By: #### 5 0103 #### [facility] [address] RBC (Bld) [#/Vol] 4.68 10*6/uL Normal 3.80-5.00 The [facility] Comment on above: Performed By: #### 5 0103 #### [facility] [address] WBC (Bld) [#/Vol] 7.44 10*3/uL Normal 4.00-10.60 The [facility] Comment on above: Performed By: #### 5 0103 #### [facility] [address] HEPATITIS A ANTIBODY IGMon 0 08-08-2020 HEP A AB IGM NONREACTIVE Normal NONREACTIVE The [facility] Comment on above: Performed By: #### 3 1422, 79285, 73262, 37388 #### [facility] [address] HEPATITIS B CORE ANTIBODYon 08-08-2020 HEP B CORE AB NONREACTIVE Normal NONREACTIVE The [facility] Comment on above: Performed By: #### 3 1422, 25512, 45080, 82378 #### [facility] [address] HEPATITIS B SURFACE ANTIGEN QUALon 08-08-2020 HEP B SURF AG QUAL NONREACTIVE Normal NONREACTIVE [facility] Comment on above: Performed By: #### 3 1422, 36557, 92525, 29657 #### [facility] [address] [place] [address], [place] HEPATITIS C ANTIBODYon 08-08 ANTI-HCV NONREACTIVE Normal NONREACTIVE The [facility] Comment on above: Performed By: #### 3 1422, 63887, 04471, 34071 #### [facility] [address] [place] [address], [place] LIVER BATTERYon 08-08-2020 Albumin [Mass/Vol] 4.5 g/dL Normal 3.5-5.7 [facility] Comment on above: Performed By: #### 9 9909, 91715 #### [facility] [address] [place] [address], [place] ALKALINE PHOSPH 37 IU/L Normal 34-104 The [facility] Comment on above: Performed By: #### 9 99, 73805 #### [facility] [address] [place] [address], [place] ALT [Catalytic activity/Vol] 56 U/L High 7-52 [facility] Comment on above: Performed By: #### 9 99, 22225 #### [facility] [address] [place] [address], [place] AST [Catalytic activity/Vol] 38 U/L Normal 13-39 [facility] Comment on above: Performed By: #### 9 9908, 49247 #### [facility] [address] [place] [address], [place] Bilirubin [Mass/Vol] 1.1 mg/dL High 0.3-1.0 [facility] Comment on above: Performed By: #### 9 99, 57986 #### [facility] [address] [place] [address], [place] Bilirubin.direct [Mass/Vol] 0.2 mg/dL Normal 0.0-0.2 [facility] Comment on above: Performed By: #### 9 9909, 33635 #### [facility] [address] Protein [Mass/Vol] 7.5 g/dL Normal 6.0-8.3 [facility] Comment on above: Performed By: #### 9 9909, 52381 #### [facility] [address] LIVER FIBROSIS CHRONIC VIRAL [id number] 08-08-2020 [id number] IN,FIBROMETER 259 mg/dL Normal 131-293 [facility] ALT [Catalytic activity/Vol] 69 U/L High 5-40 [facility] Amylase [Catalytic activity/Vol] 131 U/L High 7-33 [facility] AST [Catalytic activity/Vol] 54 U/L High 9-40 [facility] Comment on above: Result Comment: This specimen is Hemolyzed. This may cause the results to be falsely increased. CIRRHOMETER PATIENT SCORE 0.12 Normal [facility] EER FIBROMETER REPORT See Note Normal [facility] Comment on above: Result Comment: Accamol blair [facility] Enhanced Report using the link below: -Direct access: [email or web address] FIBROMETER INTERPRETATION See Report Normal [facility] Comment on above: Result Comment: INTE RPRETIVE INFORMATION: Fibrometer Interpretation Calculations for the final report are based on accurate data for age, gender, and platelet count. If any of this information needs to be corrected, please contact [facility] Client Services to request a recalculation. Client Services may be contacted at . The [employer] FibroMeter profile serves as a surrogate marker [...] developed and its performance characteristics determined by [email or web address]. It has not been cleared or approved by the [place] Food and Drug Administration. This test was performed in a CLIA certified laboratory and is intended for clinical purposes. [13] [17] Performed By: [email or web address] [address] [place] [address] Cal[employer] Supervisor: Radha Horton MD FIBROMETER PLATELET CT 163 k/uL Normal [facility] FIBROMETER PLATELET IND 81 % Low 90-120 [facility] FIBROMETER PLATELET SCORE 0.62 Normal [facility] FIBROSIS METAVIR CLASSIFICATION F2[F1-F3] Normal [facility] Comment on above: Result Comment: INTE RPRETIVE [...] possible INFLAMETER METAVIR CLASSIFICATION A1/A2 Normal [facility] Comment on above: Result Comment: INTE RPRETIVE INFORMATION: InflaMeter Metavir Classification InflaMeter (activity score) comments A0/A1 Equal probability between A0 and A1 A1/A2 Equal probability between A1 and A2 A2/A3 Equal probability between A2 and A3 INFLAMETER PATIENT SCORE 0.61 Normal [facility] Urea nitrogen [Mass/Vol] 14 mg/dL Normal 7-20 [facility] MITOCHONDRIAL ABon 1 MITOCHONDRIAL AB SEE ARUP RESULT Abnormal NONE DETECTED [facility] Comment on above: Result Comment: NONE DETECTED LESS THAN 1:20 INTERMEDIATE LEVEL 1:20 - 1:80 (MAY BE PRESENT IN AUTOALLERGIC LIVER DISEASE) ELEVATED LEVEL GREATER THAN OR EQUAL TO 1:160 (STRONGLY SUGGESTIVE OF PRIMARY BILIARY CIRRHOSIS) Performed By: #### 1 0196, 43461 #### [facility] [address] MITOCHONDRIAL M2 ANTIBODY[place] [id number] 08-08-2020 MITOCHONDRIAL M2 ANTIBODY IGG 2.1 Units Normal 0.0-24.9 [facility] Comment on above: Result Comment: REFE [...] does not rule out PBC. Performed By: [email or web address] [address] [place] [address] Calendering Supervisor: Radha Horton MD PROTHROMBIN TIMEon 1 INR Coag (PPP) [Relative time] 1.05 {INR} Normal 0.91-1.16 [facility] Comment on above: Result Comment: ACCC P [...] RANGE. CHEST 1995;108:231S-246S. Performed By: #### 1 0196, 01780 #### [facility] [address] [facility]. [address] PT Coag (PPP) [Time] 13.7 s Normal 12.3-14.8 [facility] Comment on above: Result Comment: ALL RESULTS MUST BE INTERPRETED WITH RESPECT TO BLOOD DRAWING ARTIFACT OR DILUTION ERROR OF ANTICOAGULANT AT THE TIME OF SAMPLING. Performed By: #### 1 0196, 55438 #### [facility] [address] [place] [address], [facility] XR FOOT LEFT (MIN 3 VIEWS)on 04-24-2019 No acute osseous abnormality in the left foot. [facility]: THREE XRAY VIEWS OF THE LEFT [...] Joint spaces are preserved. No bony erosion. [facility] Rashid, pn Incoming Radiant Results From [employer] - 04/24/2019 5:49 PM EDT EXAMINATION: THREE [...] acute osseous abnormality in the left foot. [facility] [place] Large Joint Arthro/Inj: bila teral greater trochanteric bursa injection [facility] Vital Signs Date Time Vital Sign Value Performing Clinician Faci lity 09-02-2023 11:36-0500 Body height 172.1 cm Michael Perkins MD Work Phone: [facility] 09-02-2023 11:36-0500 Body mass index (BMI) [Ratio] 38.6 kg/m2 Michael Perkins MD Work Phone: [facility] 09-02-2023 11:36-0500 Body weight 114.31 kg Michael Perkins MD Work Phone: [facility] 09-02-2023 11:36-0500 Diastolic blood pressure 90 mm[Hg] Michael Perkins MD Work Phone: [facility] 09-02-2023 11:36-0500 Heart rate 107 /min Michael Perkins MD Work Phone: [facility] 09-02-2023 11:36-0500 SaO2% (BldA) [Mass fraction] 94 % Michael Perkins MD Work Phone: [facility] 09-02-2023 11:36-0500 Systolic blood pressure 128 mm[Hg] Michael Perkins MD Work Phone: [facility] 08-05-2023 11:00-0500 Body height 167 cm Cody HURLEY Work Phone: [facility] 08-05-2023 11:00-0500 Body mass index (BMI) [Ratio] 39.39 kg/m2 Cody Hutchins ELECTRIC PLATER-BUSINESS SYSTEMS MANAGER Work Phone: [employer] 08-05-2023 11:00-0500 Body weight 109.86 kg Cody Hutchins ELECTRIC PLATER-BUSINESS SYSTEMS MANAGER [email or web address] 08-05-2023 11:00-0500 Diastolic blood pressure 88 mm[Hg] Cody Hutchins ELECTRIC PLATER-BUSINESS SYSTEMS MANAGER [facility] Phone[email or web address] 08-05-2023 11:00-0500 Heart rate 88 /min Cody Hutchins ELECTRIC PLATER-BUSINESS SYSTEMS MANAGER Work Phone: [email or web address] 08-05-2023 11:00-0500 Systolic blood pressure 130 mm[Hg] Cody Hutchins APRN-BUSINESS SYSTEMS MANAGER Work Phone: [email or web address] 07-13-2023 16:15-0500 Body height 167.64 cm Beba Rossi Other [employer] Other 07-13-2023 16:15-0500 Body mass index (BMI) [Ratio] 39.06 kg/m2 Beba Rossi Other [employer] Other 07-13-2023 16:15-0500 Body temperature 97.3 [degF] Beba Rossi Other [employer] Other 07-13-2023 16:15-0500 Body weight 109.77 kg Beba Farahmond Other [employer] Other 07-13-2023 16:15-0500 Diastolic blood pressure 80 mm[Hg] Beba Rossi Other [employer] Other 07-13-2023 16:15-0500 Respiratory rate 18 /min Beba Rossi Other [employer] Other 07-13-2023 16:15-0500 SaO2% (BldA) [Mass fraction] 98 % Beba Richey Other [facility] [employer] Other 07-13-2023 16:15-0500 Systolic blood pressure 120 mm[Hg] Beba Richey Other [facility] [employer] Other 06-24-2023 11:38-0500 Body height 167.6 cm Noemi Pham MD Work Phone: [facility] 06-24-2023 11:38-0500 Body weight 108.86 kg Noemi Pham MD Work Phone: [facility] 06-24-2023 11:38-0500 Diastolic blood pressure 77 mm[Hg] Noemi Pham MD Work Phone: [facility] 06-24-2023 11:38-0500 Heart rate 104 /min Noemi Pham MD Work Phone: [facility] 06-24-2023 11:38-0500 Respiratory rate 20 /min Noemi Pham MD Work Phone: [facility] 06-24-2023 11:38-0500 Systolic blood pressure 114 mm[Hg] Noemi Pham MD Work Phone: [facility] 08-11-2022 09:48-0500 Body weight 102.51 kg Noemi Pham MD Work Phone: [facility] 08-11-2022 09:48-0500 Diastolic blood pressure 73 mm[Hg] Noemi Pham MD Work Phone: [facility] 08-11-2022 09:48-0500 Heart rate 94 /min Noemi Pham MD Work Phone: [facility] 08-11-2022 09:48-0500 Systolic blood pressure 118 mm[Hg] Noemi Pham MD Work Phone: [facility] 02-07-2021 11:53-0400 Body mass index (BMI) [Ratio] 37.12 kg/m2 Garfield Restrepo MD [employer] Phone: 02-07-2021 11:53-0400 Body temperature 98.4 [degF] Garfield Restrepo MD [employer] Phone: 02-07-2021 11:53-0400 Body weight 104.33 kg Garfield Restrepo MD [employer] Phone: 02-07-2021 11:53-0400 Diastolic blood pressure 92 mm[Hg] Garfield Restrepo MD [employer] Phone: 02-07-2021 11:53-0400 Heart rate 108 /min Garfield Restrepo MD [employer] Phone: 02-07-2021 11:53-0400 Respiratory rate 16 /min Garfield Restrepo MD [employer] Phone: 02-07-2021 11:53-0400 SaO2% (BldA) [Mass fraction] 96 % Garfield Restrepo MD [employer] Phone: 02-07-2021 11:53-0400 Systolic blood pressure 122 mm[Hg] Garfield Restrepo MD [employer] Phone: 04-24-2019 15:30-0400 Pulse (Heart Rate) 104 /min [place], [place] 04-24-2019 15:28-0400 BMI (Body Mass Index) 35.51 kg/m2 [facility] [place] 04-24-2019 15:28-0400 Body Temperature 98.4 [degF] [place], [place] 04-24-2019 15:28-0400 Body weight 99.79 kg [place], [place] 04-24-2019 15:28-0400 BP Diastolic 81 mm[Hg] [place] 04-24-2019 15:28-0400 BP Systolic 116 mm[Hg] [place] 04-24-2019 15:28-0400 Height 167.6 [facility] 04-24-2019 15:28-0400 Pulse [facility]xim[facility] 95 % [facility] 04-24-2019 15:28-0400 Respiratory Rate 15 /min [facility], [place] Encounters Encounter Date Encounter Type Care Provider Facility Start: 09-02-2023 End: 09-02-2023 ambulatory MICHAEL Amol PERKINS [facility] Start: 09-02-2023 End: 09-02-2023 Office outpatient visit 25 minutes Michael Perkins MD Work Phone: [facility] Comment on above: Primary hypertension (Primary Dx); Coronary artery vasospasm (CMS-HCC); Intermittent palpitations; Obstructive sleep apnea Start: 09-01-2023 Telephone encounter Mei Garcia CMA [facility] Comment on above: Appointment Start: 08-05-2023 End: 08-05-2023 ambulatory [facility] Start: 08-05-2023 End: 08-05-2023 Office outpatient visit 25 minutes [facility] ELECTRIC PLATER[employer]INESS SYSTEMS MANAGER Work Phone: [facility] Adult Neurology Comment on above: Status migrainosus ( Primary Dx); Migraine without aura and without status migrainosus, not intractable; Cervicalgia; Fibromyalgia; Paresthesias; Trapezius muscle spasm; Vertigo Start: 08-03-2023 Telephone encounter Gloria Box [facility] Start: 07-21-2023 End: 07-21-2023 ambulatory Betty Moreau Other [employer] Other Start: 07-21-2023 Telephone encounter Naz Andrew [facility] Comment on above: Headache Start: 07-13-2023 End: 07-13-2023 ambulatory Beba Richey Other [employer] Other Start: 07-13-2023 Office outpatient vi sit 15 minutes Beba Richey [facility] Start: 06-24-2023 End: 06-25-2023 ambulatory TOY OBRIEN Facility:[facility] Start: 06-24-2023 End: 06-24-2023 ambulatory TOY OBRIEN Facility:[facility] Start: 06-24-2023 End: 06-24-2023 Subsequent hospital visit by physician Mayte Arandaon Celeste Work Phone: [facility] Rad[facility] General Comment on above: Pain in joint, multi ple sites [M25.50] Start: 06-24-2023 End: 06-24-2023 Patient encounter procedure Noemi Pham MD Work Phone: Rheumatology Comment on above: Pain in joint, multi ple sites (Primary Dx); Trochanteric bursitis of both hips Start: 05-27-2023 End: 05-27-2023 ambulatory Jud Monson Other [employer] Other Start: 05-27-2023 Office outpatient vi sit 25 minutes Jud Monson [facility] Start: 05-12-2023 Telephone encounter Noemi perez MD Work Phone: Rheumatology Comment on above: Medication Problem Start: 03-21-2023 End: 03-22-2023 ambulatory [facility] Start: 03-09-2023 Telephone encounter Noemi perez MD Work Phone: Rheumatology Start: 01-28-2023 Telephone encounter Noemi perez MD Work Phone: Rheumatology Comment on above: Orders Start: 01-26-2023 ambulatory Noemi Pham MD Work Phone: Rheumatology Comment on above: results of blood wor k Start: 01-26-2023 E-mail encounter fro m caregiver Noemi Pham MD Work Phone: [facility] Start: 01-14-2023 End: 01-15-2023 ambulatory TOY OBRIEN Facility:[facility] Start: 01-11-2023 Refill Noemi Pham MD Work Phone: Rheumatology Comment on above: Refill Request Start: 12-24-2022 End: 12-24-2022 ambulatory TOY OBRIEN Neurology Start: 12-24-2022 End: 12-24-2022 Patient encounter procedure Emg 3 Neur Main (Max Weight: 1000) Work Phone: [facility] Start: 12-17-2022 End: 12-17-2022 ambulatory LAC[address]DAIR AMADOR[address]VONMAB[address] [facility] Start: 12-13-2022 End: 12-18-[address] [facility] Start: 12-01-2022 Telephone encounter Noemi perez MD Work Phone: Rheumatology Comment on above: Insurance Authorizat ion (Enbrel) Start: 11-23-2022 Orders Only Liz Connolly MD Work Phone: Neurology Comment on above: Fatigue, unspecified type (Primary Dx); Elevated aldolase level; Generalized weakness Start: 11-22-2022 ambulatory Liz Connolly MD Work Phone: Neurology Comment on above: Muscle soreness etc Start: 11-15-2022 Telephone encounter Nomei perez MD Work Phone: Rheumatology Comment on above: Results Start: 10-26-2022 ambulatory Noemi Pham MD Work Phone: Rheumatology Comment on above: Muscle Pain Start: 10-03-2022 Refill Noemi Pham MD Work Phone: Rheumatology Comment on above: Refill Request Start: 09-08-2022 End: 09-08-2022 ambulatory [facility] Start: 09-08-2022 End: 09-08-2022 ambulatory [facility] Start: 08-11-2022 End: 08-12-2022 ambulatory NOEMI PHAM Facility:[facility] Start: 08-11-2022 End: 08-11-2022 Patient encounter procedure Noemi Pham MD Work Phone: Rheumatology Comment on above: Rheumatoid arthritis involving multiple sites, unspecified whether rheumatoid factor present (HCC) (Primary Dx) Start: 07-30-2022 End: 07-30-2022 ambulatory Jud Monson Facility:[facility] Start: 07-30-2022 End: 07-30-2022 ambulatory MARKETING TECHNOLOGY SPECIALIST-C Jud Monson Work Phone: [facility] Work Phone: Start: 07-30-2022 End: 07-30-2022 Patient encounter procedure MARKETING TECHNOLOGY SPECIALIST-C Jud Monson Work Phone: [facility] Start: 06-04-2022 Telephone encounter Noemi perez MD Work Phone: Rheumatology Comment on above: Insurance Authorizat ion Start: 06-02-2022 ambulatory Noemi Pham MD Work Phone: Rheumatology Comment on above: Ankle pain Start: 05-29-2022 Refill Noemi Pham MD Work Phone: Rheumatology Comment on above: Refill Request Start: 05-26-2022 End: 05-26-2022 ambulatory [facility] Start: 05-17-2022 Telephone encounter Noemi perez MD Work Phone: [address] [place] [address] Comment on above: Patient Question Start: 12-29-2021 Telephone encounter Noemi perez MD Work Phone: Rheumatology Comment on above: Patient Request Start: 10-27-2021 ambulatory Noemi Pham MD Work Phone: Rheumatology Comment on above: Handicap plaquered Start: 07-22-2021 End: 07-25-2021 ambulatory BLANCA Rajiv [facility] Start: 07-03-2021 End: 07-06-2021 ambulatory BLANCA Rajiv [facility] Start: 02-07-2021 End: 02-07-2021 Emergency department patient visit TOY OBRIEN [facility] Start: 02-07-2021 End: 02-07-2021 Emergency department patient visit Garfield Restrepo MD [facility] ED Comment on above: Neuropathic pain (Pr imary Dx) Start: 01-19-2021 End: 01-19-2021 Emergency department patient visit TOY OBRIEN [facility] Start: 05-20-2020 End: 05-20-2020 Subsequent hospital visit by physician Zackary Garcia [facility] Comment on above: Canceled (Patient no show) Start: 05-16-2020 End: 05-16-2020 Subsequent hospital visit by physician Glory Ortiz [facility] Comment on above: Canceled (Patient) Start: 05-14-2020 End: 05-14-2020 Subsequent hospital visit by physician Sander Jauregui [facility] Start: 04-24-2019 End: 04-24-2019 Emergency department patient visit Gold Barrios Star Work Phone: [facility] ED Comment on above: Sprain of left foot, initial encounter (Primary Dx) Procedures Date Procedure Procedure Detail Performing Clinician Start: 09-02-2023 Ecg routine ecg w/least 12 lds w/i&r Michael Perkins MD Work Phone: Start: 09-02-2023 Follow-up visit Follow-up MICHAEL PERKINS Start: 06-24-2023 Radex spine lumbosacral 2/3 views [...] Start: 07-30-2022 Plain X-ray of right elbow MARKETING TECHNOLOGY SPECIALIST-C Jud Monson Work Phone: Start: 07-24-2021 Lipid 1996 panel - Serum or Plasma Noemi Pham MD Work Phone: Start: 06-24-2021 History of appendectomy Status post appendectomy, follow-up exam Naz Vasques Start: 06-24-2021 History of cholecystectomy Status post cholecystectomy Naz Vasques Start: 03-19-2021 Adult depression screening assessment Noemi Pham MD Work Phone: Start: 02-07-2021 Radex spine cervical 2 or 3 views Garfield Restrepo MD Start: 09-26-2019 H/O: hysterectomy History of hysterectomy Naz Mckeontz Start: 04-24-2019 Radex foot complete minimum 3 views Jud Osuna Work Phone: Plan of Treatment Date Care Activity Detail Author Start: 07-24-2026 Lipid 1996 panel - S blanca or Plasma Lipid Screening [facility] Start: 07-24-2026 LIPID SCREEN LIPID SCREEN [facility] Start: 06-24-2026 Diabetes Screening Diabetes Screenin [facility] Start: 11-08-2025 DIABETES SCREEN DIABETES SCREEN [facility] Start: 11-08-2025 Diabetes Screening Diabetes Screenin [facility] Start: 08-11-2025 DIABETES SCREEN DIABETES SCREEN [facility] Start: 09-02-2024 Adult BMI Screening Adult BMI Screen ing [facility] Start: 09-02-2024 Tobacco Screening Tobacco Screening [facility] Start: 08-05-2024 Adult BMI Screening Adult BMI Screen ing [facility] Start: 08-05-2024 Tobacco Screening Tobacco Screening [facility] Start: 05-13-2024 Glaucoma screening Diabetic Op hthalmology Exam [facility] Start: 05-13-2024 Tobacco Screening Tobacco Screening [facility] Start: 05-12-2024 Adult BMI Screening Adult BMI Screen ing [facility] Start: 12-18-2023 Colonoscopy COLONOSCOPY [facility] Start: 12-18-2023 COLORECTAL CANCER SCREENING COLORECTAL CANCER SCREENING [facility] Start: 10-28-2023 End: 10-28-2023 Patient encounter procedure 10/28/2023 9:00 AM EDT [facility] [address] [place] [address] Cody Hutchins, ELECTRIC PLATER-BUSINESS SYSTEMS MANAGER [address] [place] [address] [facility] Start: 10-14-2023 End: 10-14-2023 Patient encounter procedure 10/14/2023 1:10 PM EDT Office Visit [facility] [address] [place] [address] Dallas Tobar MD [address] [place] [address] [facility] Start: 09-30-2023 End: 09-30-2023 Patient encounter procedure [facility] Start: 09-30-2023 End: 09-30-2023 ambulatory 09/30/2023 9:30 AM EST Ophthalmology Imaging [facility] [address] [place] [address] [facility] Start: 09-16-2023 End: 09-16-2023 Patient encounter procedure 09/16/2023 10:30 AM EST Office Visit [facility] [address] [place] [address] Dallas Tobar MD [address] [place] [address] [facility] Start: 09-06-2023 Depression Screening Depression Scre [facility] Start: 09-02-2023 End: 09-02-2023 Patient encounter procedure [facility] Start: 08-05-2023 End: 08-05-2023 Patient encounter procedure 08/05/2023 11:30 AM EST Office Visit [facility] [address] [place] [address] Cody Hutchins, ELECTRIC PLATER-BUSINESS SYSTEMS MANAGER [address] [place] [address] [facility] Start: 05-16-2023 DIABETES SCREEN DIABETES SCREEN [facility] Start: 03-25-2023 Covid-19 Vaccine ( season) Covid-19 Vaccine () [facility] Start: 03-25-2023 Influenza vaccination C [facility] Start: 01-26-2023 End: 03-28-2023 Extractable nuclear Ab panel - Serum ANTI LEVY ID Lab Routine Rheumatoid arthritis involving multiple sites, unspecified whether rheumatoid factor present ([facility]) Expected: 01/26/2023, Expires: 03/28/2023 [facility] Work Phone: Comment on above: Expected: 01/26/2023 , Expires: 03/28/2023 Start: 10-27-2022 End: 12-27-2022 Aldolase [Enzymatic activity/volume] in Serum or Plasma ALDOLASE BLD Lab Routine Myalgia Expected: 10/27/2022, Expires: 12/27/2022 [facility] Work Phone: Comment on above: Expected: 10/27/2022 , Expires: 12/27/2022 Start: 10-27-2022 End: 12-27-2022 Creatine kinase [Enzymatic activity/volume] in Serum or Plasma CK CREATINE KINASE Lab Routine Myalgia Expected: 10/27/2022, Expires: 12/27/2022 [facility] Work Phone: Comment on above: Expected: 10/27/2022 , Expires: 12/27/2022 Start: 08-11-2022 End: 10-11-2022 Aldolase [Enzymatic activity/volume] in Serum or Plasma [facility] Work Phone: Comment on above: Expected: 08/11/2022 , Expires: 10/11/2022 Start: 07-25-2022 DEPRESSION ASSESSMENT DEPRESSION ASS ESSMENT [facility] Start: 03-25-2022 Influenza vaccination INFLUENZA (#1) [facility] Start: 03-19-2022 Adult depression screening assessment DEPRESSION SCREENING [facility] Start: 01-27-2022 DTaP,Tdap and Td Vaccines (2 - Td or Tdap) DTaP,Tdap and Td Vaccines (2 - Td or Tdap) [facility] Start: 01-27-2022 DTaP/Tdap/Td vaccine (2 - Td or Tdap) DTaP/Tdap/Td vaccine (2 - Td or Tdap) [employer] Phone: Start: 01-27-2022 DTaP/Tdap/Td vaccine (2 - Td) DTaP/Tdap/Td vaccine (2 - Td) [place] Start: 01-27-2022 Urine microalbumin profile DTaP,Tdap,Td Vaccine (2 - Td or Tdap) [facility] Start: 07-25-2021 DEPRESSION ASSESSMENT DEPRESSION ASS ESSMENT [facility] Start: 03-25-2021 Influenza vaccination Flu vaccine (# 1) [employer] Phone: Start: 01-12-2021 COVID-19 VACCINE (3 - Booster for Pfizer series) COVID-19 VACCINE (3 - Booster for Pfizer series) [facility] Start: 01-12-2021 COVID-19 VACCINE (3 - Pfizer series) COVID-19 VACCINE (3 - Pfizer series) [facility] Start: 12-15-2020 COVID-19 VACCINE (3 - Pfizer risk 4-dose series) COVID-19 VACCINE (3 - Pfizer risk 4-dose series) [facility] Start: 12-15-2020 COVID-19 VACCINE (3 - Pfizer risk series) COVID-19 VACCINE (3 - Pfizer risk series) [facility] Start: 2020 COLOGUARD (FIT-DNA) COLOGUARD (FIT-D NA) [facility] Start: 2020 Colonoscopy COLONOSCOPY [facility] Start: 2020 COLORECTAL CANCER SCREENING COLORECTAL CANCER SCREENING [facility] Start: [address] COLONOGRAPHY [facility] Start: 2020 FECAL OCCULT BLOOD FECAL OCCULT BLOO D [facility] Start: 2020 Screening for malign ant neoplasm of colon Colon cancer screen colonoscopy [employer] Phone: Start: 2020 SIGMOIDOSCOPY SIGMOIDOSCOPY [facility] Start: 05-29-2020 End: 05-29-2020 Appointment 05/29/2020 Appointment Physical Therapy Jeremie Barnett PTA [facility] Start: 05-28-2020 End: 05-28-2020 Appointment 05/28/2020 Appointment Physical Therapy Jeremie Barnett PTA [facility] Start: 05-23-2020 End: 05-23-2020 Appointment 05/23/2020 Appointment Physical Therapy Glory Ortiz TAIL [facility]ER [facility] Start: 05-20-2020 End: 05-20-2020 Appointment [facility] Start: 05-16-2020 End: 05-16-2020 Appointment 05/16/2020 Appointment Physical Therapy Glory Ortiz [facility]IL [facility] Start: 03-25-2020 Influenza vaccination Flu vaccine (# 1) [place] Start: 03-25-2019 Influenza vaccination Flu vaccine (# 1) [place] Start: 2015 Diabetes screen Diabetes screen [facility] [employer] Work Phone: Start: 2015 Lipid panel Lipid screen [place], [place] Start: 2015 Lipid screen Lipid screen [place] Start: 2015 Mammography [facility] Start: 2005 HPV TESTING HPV TESTING [facility] Start: 1996 Cervical cancer screen Cervical canc er screen [place] Start: 1996 PAP TESTING PAP TESTING [facility] Start: 1996 Screening for malign ant neoplasm of cervix Cervical cancer screen [place] Start: 1994 SHINGRIX VACCINE (1 of 2) SHINGRIX VACCINE (1 of 2) [facility] Start: 1994 Urine microalbumin profile [facility] Start: 1993 Adult BMI Follow Up Plan Adult BMI Follow Up Plan [facility] Start: 1993 Diabetic foot examination Diabetic Foot Exam [facility] Start: 1993 HIV SCREENING HIV SCREENING [facility] Start: 1990 HIV screen HIV screen [facility] [place] Start: 1990 HIV screening HIV screen Eboni Connolly [place], [place] Start: 1981 PNEUMOCOCCAL (1 - PCV) PNEUMOCOCCAL (1 - PCV) [facility] Start: 1981 Pneumococcal vaccination Pneum ococcal Vaccine (1 - PCV) [facility] Start: 1975 Hepatitis C screening Hepatitis C [facility] Work Phone: End: 11-24-2023 EMG(NEURO/NI) EMG(NEURO/NI) EMG Routine Fatigue, unspecified type Elevated aldolase level Generalized weakness 1 Occurrences starting 11/23/2022 until 11/24/2023 [facility] Work Phone: Comment on above: 1 Occurrences starti ng 11/23/2022 until 11/24/2023 [facility] Immunizations Immunization Date Immunization Notes Care Provider Julio carlin 04-23-2021 influenza virus vacc ine, unspecified formulation Noemi Pham MD Work Phone: [facility] Payers Date Payer Category Payer Self-pay 2021 Unknown MMO MMO [employer] [id number] 2021-Present [phone] [address] [place] [address] PPO [id number] 2021 Unknown [id number] 2021 Medicare [id number] 2021 Unknown [id number] 2020 Unknown [id number] 2015 Unknown [facility] xxxxxxxxxxxx 2015-Present [phone] [address] [place] [address] xxxxxxxxxxxx [id number] 2003 Medicaid [place] [employer] [place] [employer] [id number] 2003-Present [phone] [address] [place] [address] Medicaid [id number] 2003 Medicaid [id number] 2003 Unknown [id number] 1975 Unknown [id number] 1975 Unknown [id number] 1975 Unknown [id number] 1975 Unknown [id number] 1975 Unknown [id number] 1975 Unknown [id number] 1975 Unknown [id number] 1975 Unknown [id number] 6 1975 Unknown [id number] 6 Unknown [id number] Social History Date Type Detail Facility Start: 06-18-2018 End: 10-14-2021 Tobacco smoking status NHIS Never smoker [facility] Start: 06-18-2018 End: 10-14-2021 Tobacco use and exposure Never used [place] Start: 06-18-2018 End: 09-02-2023 Alcohol intake Current drinker of alcohol (finding) [place] Start: 08-28-2017 Alcohol Comment social [place], [place] Start: 1975 Sex Assigned At Not on file [place] Start: 06-18-2018 End: 08-05-2020 Alcohol intake Yes [facility] Start: 12-14-2022 End: 12-24-2022 Exposure to SARS-CoV-2 (event) Not sure [facility] Start: 10-26-2018 History SDOH Alcohol Comment Occasional [facility] Start: 1975 Sex Assigned At Female F [facility] Start: 08-05-2020 End: 01-14-2023 History of Social function [facility] National Score (1-10 0), lower number is lower risk 76 [facility] Start: 08-14-2019 Alcohol Comment occasional [facility] Start: 09-06-2022 Gender identity Identifies as female gender (finding) [facility] Start: 09-06-2022 Sexual orientation Heterosexual (fin ding) [facility] Clinical Notes 10-28-2021 to 09-02-2023 Michael Perkins MD - 09/02/2023 11:45 AM Monica Palma RN - 09/02/2023 11:45 AM ESTTelephone Encounter - Mei Garcia CMA - 09/01/2023 8:58 AM Raul Hutchins APRN-STACIA - 08/05/2023 11:30 AM EST Note Date & Type Note Facility 09-02-2023 History of Present illness Narrative Lynette Hairston Date of visit: 09/02/2023 Date of : 1975 Age: 48 y.o. Patient Active Problem List Diagnosis Chest pain of uncertain etiology Abnormal electrocardiography Acquired hypothyroidism Shortness of breath on exertion Intermittent palpitations Asthma without status asthmaticus Chronic pain Daytime sleepiness Fatigue Gastroesophageal reflux disease Gastroparesis History of hysterectomy Incontinence without sensory awareness Insulin resistance Low grade squamous intraepithelial lesion (LGSIL) on cervicovaginal cytologic smear Migraine without aura and without status migrainosus, not intractable Myalgia Benign fasciculations Fibromyalgia Periodic limb movement disorder Polycystic ovaries Postural orthostatic tachycardia syndrome Hypercholesterolemia Autoimmune disease (CMS-HCC) Rheumatoid arthritis (CMS-HCC) Transient diplopia Vitamin D deficiency Endometriosis Vertigo Peripheral vertigo Paresthesias Cervicalgia Trapezius muscle spasm Obstructive sleep apnea syndrome Anxiety Moderate mitral regurgitation Bilateral occipital neuralgia Hematochezia History of hypothyroidism History of vitamin D deficiency Intractable migraine equivalent Metabolic syndrome X Non-restorative sleep Status post appendectomy, follow-up exam Status post cholecystectomy Strain of flexor muscle of hip Abnormal stress test HTN (hypertension) Obesity (BMI 30-39.9) Coronary artery vasospasm (CMS-HCC) Chest pain, unspecified type Allergies Allergen Reactions Imdur [Isosorbide Mononitrate] Headache and Vomiting Meloxicam Hives Other reaction(s): hives Methotrexate Hives Current Outpatient Medications Medication Sig Dispense Refill ARIPiprazole (ABILIFY) 5 mg tablet Take 1 tablet (5 mg total) by mouth in the morning. busPIRone (BUSPAR) 10 mg tablet Take 1 tablet (10 mg total) by mouth in the morning. EnbreL 50 mg/mL (1 mL) injection nitroglycerin (NITROSTAT) 0.4 MG SL tablet 1 under the tongue as needed for angina, may repeat q5mins for up three doses 25 tablet 5 omeprazole (PriLOSEC) 40 mg capsule Take 1 capsule (40 mg total) by mouth in the morning. sertraline (ZOLOFT) 100 mg tablet Take 1 tablet (100 mg total) by mouth in the morning. zonisamide (ZONEGRAN) 100 mg capsule Take 1 capsule (100 mg total) by mouth every morning AND 2 capsules (200 mg total) nightly. (Patient taking differently: 100MG NIGHTLY) 90 capsule 5 amLODIPine (NORVASC) 2.5 mg tablet TAKE 1 TABLET (2.5 MG TOTAL) BY MOUTH IN THE MORNING. (Patient not taking: Reported on 09/02/2023) 30 tablet 11 aspirin 81 mg Take 1 tablet (81 mg total) by mouth daily. (Patient not taking: Reported on 09/02/2023) metoprolol succinate XL (TOPROL XL) 25 mg 24 hr tablet Take 0.5 tablets (12.5 mg total) by mouth in the morning. (Patient not taking: Reported on 09/02/2023) 30 tablet 2 rosuvastatin (CRESTOR) 5 mg tablet Take 1 tablet (5 mg total) by mouth in the morning. (Patient not taking: Reported on 09/02/2023) 30 tablet 11 SUMAtriptan (IMITREX) 100 mg tablet Take 1 tablet (100 mg total) by mouth once as needed for migraine. May repeat in 2 hours if unresolved. Do not exceed 200 mg in 24 hours. (Patient not taking: Reported on 09/02/2023) 9 tablet 11 tiZANidine (ZANAFLEX) 4 mg tablet Take 1-2 tablets (4-8 mg total) by mouth nightly. (Patient not taking: Reported on 09/02/2023) 60 tablet 2 No current facility-administered medications for this visit. Chief Complaint Patient presents with Follow-up Hypertension History of Present Illness Female presents cardiology clinic today for follow-up. Patient stopped taking all her cardiac medicines about 1 year ago. She states that she got overwhelmed and decided to stop all her cardiac medicines. She continues to take her other medicines though. She is currently asymptomatic. Denies any chest pain or shortness of breath. No palpitations. She started a new job and is under lot of stress. 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 Past Medical History: Diagnosis Date Anxiety Asthma Autoimmune disease ([facility] 09/26/2019 Chronic rheumatic arthritis ([facility]) Depression Diabetes mellitus ([facility]) Fibromyalgia GERD (gastroesophageal reflux disease) HLD (hyperlipidemia) HTN (hypertension) HTN (hypertension) 09/22/2021 Hypothyroidism Migraine Moderate mitral regurgitation Obstructive sleep apnea syndrome 02/12/2020 POTS (postural orthostatic tachycardia syndrome) RA (rheumatoid arthritis) ([facility]) Syncope TOS (thoracic outlet syndrome) No data recorded No data recorded No data recorded Past Surgical History: Procedure Laterality Date ADENOIDECTOMY APPENDECTOMY BLADDER SUSPENSION Cardiac catheterization - CORS + LV GRAM/PRESS (35681) Left 10/08/2021 Performed by Ana María Plasencia MD at [facility] CARDIAC CATH LABS CHOLECYSTECTOMY ENDOMETRIAL BIOPSY HYSTERECTOMY TONSILLECTOMY TONSILLECTOMY ADENOIDECTOMY Family History Problem Relation Age of Onset Hyperlipidemia Mother Diabetes Mother Hypothyroidism Mother Hypertension Mother No Known Problems Father Breast cancer Neg Hx Colon cancer Neg Hx Ovarian cancer Neg Hx Lung cancer Neg Hx Cervical cancer Neg Hx Social History Socioeconomic History Marital status: Spouse [...] on file Interpersonal Safety: Not on file Housing Instability: Not on file Review of Systems Review of Systems Constitutional: Negative for chills, fever, weight gain and weight loss. HENT: Negative for nosebleeds. Eyes: Negative for blurred vision and double vision. Vascular: Negative for asymmetric leg edema, claudication, lower extremity wounds or ulcers and varicose veins. Respiratory: Negative for cough, shortness of breath and wheezing. Hematologic/Lymphatic: Negative for bleeding problem. Does not bruise/bleed easily. Skin: Negative for color change and rash. Musculoskeletal: Negative for joint swelling and muscle weakness. Gastrointestinal: Negative for change in bowel habit and hematochezia. Genitourinary: Negative for hematuria. Neurological: Negative for dizziness, headaches, light-headedness, loss of balance, numbness and tremors. Psychiatric/Behavioral: The patient is not nervous/anxious. Allergic/Immunologic: Negative for environmental allergies. CARDIOVASCULAR: Please review HPI. Physical Examination General appearance: Alert, oriented and cooperative. In no acute distress. Skin: Warm and dry to touch. Head: Normocephalic, without obvious abnormality, atraumatic. Ears, Nose, Mouth, Throat: Throat clear without erythema or exudate. Dentition intact. Eyes: Conjunctivae unremarkable, EOM intact. Neck: No JVD, No carotid bruit. Neck supple, trachea midline. Respiratory: Clear to auscultation bilaterally, no use of accessory muscles. Cardiovascular: RRR with normal S1 and S2 with no murmurs. Gastrointestinal: Soft, non-tender. Bowel sounds normal. Musculoskeletal: No peripheral edema. Neurologic: Oriented to time, person and place, affect appropriate. No focal/major motor defects noted. Psychiatric: Appropriate mood, memory and judgement. VITAL SIGNS: BP 128/90 Pulse 107 Ht 172.1 cm (5' 7.75 ) Wt 114.3 kg (252 lb) LMP (LMP Unknown) SpO2 94% BMI 38.60 kg/m Orders Placed or Reconciled This Encounter Medications omeprazole (PriLOSEC) 40 mg capsule Sig: Take 1 capsule (40 mg total) by mouth in the morning. There are no discontinued medications. IMPRESSIONS/PLAN 1. Primary hypertension - POCT EKG 2. Coronary artery vasospasm (CMS-HCC) 3. Intermittent palpitations Assessment: Coronary vasospasm; [facility] 09/2021: Minimal CAD, spasm in the rPDA that markedly improved with intracoronary nitroglycerin Hypertension Hyperlipidemia, most recent LDL 184 mg/dL on 08/05/2023 Dysautonomia/POTS Rheumatoid arthritis Migraines Obstructive sleep apnea, not on CPAP Prediabetes TTE 09/15/2022: EF 55-60%, mild MR Plan: Asymptomatic. She stopped taking all her cardiac meds approximately 1 year ago. Most recent LDL 184 mg/dL on 08/05/2023. She needs to resume rosuvastatin. Will put her on a higher dose. Repeat lipid panel in 3 months. May require another cholesterol-lowering medicine. Discussed her coronary vasospasm history. Recommend she be on some medicine to help with vasospasm such as amlodipine. She is done well on metoprolol before and would like to try going back on this. Not on CPAP. Will refer to pulmonary/sleep medicine. Long discussion today regarding weight loss. Discussed diet and exercise. She previously had a good response to GLP 1 agonist but her insurance stopped covering it. TODAYS ORDERS Orders Placed This Encounter Procedures POCT EKG FOLLOW UP No follow-ups on file. PCP: TOY OBRIEN MD Referring Physician: Toy Obrien MD [address] [place] [address] Referral and perts faxed to Pulmonology . [email or web address] Miscellaneous Notes Left message for patient to remind them to bring their most current medication list with them to their appointment. documented [facility] this [email or web address] Telephone encounter Note Left message for patient to remind them to bring their most current medication list with them to their appointment. [email or web address] History of Present illness Narrative Subjective: Patient ID: Lynette Hairston [...] Norflex does not help. She sees a marketing programs specialist for rheumatoid arthritis ([place]) and fibromyalgia. Sleep/Social History: She complains of [...] muscles. She sees Conrad Garcia DC in [place] for her care advocate. She would like to start a preventative [...] History: Diagnosis Date Anxiety Asthma Autoimmune disease ([facility]) 09/26/2019 Chronic rheumatic arthritis ([facility] Depression Diabetes mellitus ([facility]) Fibromyalgia GERD (gastroesophageal reflux disease) HLD (hyperlipidemia) HTN (hypertension) HTN (hypertension) 09/22/2021 Hypothyroidism Migraine Moderate mitral regurgitation Obstructive sleep apnea syndrome 02/12/2020 POTS (postural orthostatic tachycardia syndrome) RA (rheumatoid arthritis) ([facility]) Syncope TOS (thoracic outlet syndrome) Past Surgical History: Procedure Laterality Date ADENOIDECTOMY APPENDECTOMY BLADDER SUSPENSION Cardiac catheterization - CORS + LV GRAM/PRESS (72015) Left 10/08/2021 Performed by Ana María Plasencia MD at [facility] CARD[facility] CATH LABS CHOLECYSTECTOMY ENDOMETRIAL BIOPSY HYSTERECTOMY [...] muscles. She sees Conrad Garcia DC in [place] for her care advocate. She would like to start a preventative [...] procedures Referring and communicating with other health client care coordinator (not separately reported) Documenting clinical information in the electronic or other health record Care coordination (not separately reported) - Cody Hutchins DNP, MEI 08/05/23 12:01 PM [facility]I [place] 08/05/23 1202 documented in this encounter [facility] 08-05-2023 Instructions MEI [place] - 08/05/2023 11:30 [...] --exercise bicycle pedals documented in this encounter [facility] 08-03-2023 Miscellaneous Notes Patient contacted our office requesting a sooner appt. Patient just started a new job and is off every other Tuesday and she is off this Tuesday. Family Caseworker looked and there are no appts available [...] can add 100 mg in the morning. Family Caseworker called pt. And left a message for her to call the office back to discuss her medication dosage question. Received call today 08/04/23 9:22 from patient who is requesting a call back in regard to previous message. Please call back and advise, callback#: [phone]. Family Caseworker spoke with pt. Family Caseworker told pt about the med dosage per Cody Hutchins and pt stated she understood. Pt also stated she is in so much pain asking for a migraine cocktail so she was added to schedule tomorrow 08/05/23. documented in this encounter [facility] 08-03-2023 Telephone encounter Note Patient contacted our office requesting a sooner appt. Patient just started a new job and is off every other Tuesday and she is off this Tuesday. Family Caseworker looked and there are no appts available [...] get her a sooner appt. Please advise. [facility] [place] [facility] 08-03-2023 Telephone encounter Note Meron: when you are doing reminder calls for 08/05/2023, if anyone wants to cancel, please contact Lynette and put her on the schedule Clinical: If she is taking 100 mg of zonisamide each evening, she can increase her dose to 200 mg (two of the 100 mg capsules) each evening. [facility] [employer] [facility] 08-03-2023 Telephone encounter Note Patient is already taking 200 mg of the Zonisamide nightly. Please advise. [facility] 08-03-2023 Telephone encounter Note She can add 100 mg in the morning. [facility] [employer] [facility] 08-03-2023 Telephone encounter Note Family Caseworker called pt. And left a message for her to call the office back to discuss her medication dosage question. [facility] 08-03-2023 Telephone encounter Note Received call today 08/04/23 9:22 from patient who is requesting a call back in regard to previous message. Please call back and advise, callback#: [phone]. [facility] [place] [facility] 08-03-2023 Telephone encounter Note Family Caseworker spoke with pt. Family Caseworker told pt about the med dosage per Cody Hutchins and pt stated she understood. Pt also stated she is in so much pain asking for a migraine cocktail so she was added to schedule tomorrow 08/05/23. [email or web address]23 Miscellaneous Notes 1) When did the headache start? - [...] requesting a call back to further discuss [phone]. Thank you so much She can increase the zonisamide to 200 mg (2 of the 100 mg capsules) each evening. Patient returned phone call. Family Caseworker informed her of Cody Hutchins's message below. She voiced understanding. documented in this encounter [facility] 07-21-2023 Telephone encounter Note 1) When did the headache start? [...] requesting a call back to further discuss [phone]. Thank you so much [facility] 07-21-2023 Telephone encounter Note She can increase the zonisamide to 200 mg (2 of the 100 mg capsules) each evening. [facility] [employer] [facility] 07-21-2023 Telephone encounter Note Patient returned phone call. Family Caseworker informed her of Cody Hutchins's message below. She voiced understanding. [facility] [employer] [facility] 07-13-2023 Evaluation note Encounter Date Diagnosis Assessment [...] unspecified otitis media type (ICD-10 - H66.91) [facility] Other 12-01-2023 NoteHNO ID: [id number] Author: Chato Chacko RT(R) Service: Radiology Author [...] BY: RT Aurelio(R) June 24, 2023 12:47 [id number] NoteHNO ID: [id number] Author: Noemi Pham MD Service: ? Author [...] bursa injection Informed Consent Consent Obtained: Verbal [place] Protocol A moment to CARE was completed. [...] F/U: 6m Check following: -none Noemi Pham [facility]12-01-2023 History of Present illness Narrative* Chato Chacko RT(R) - 06/24/2023 12:50 PM EST Radiology [...] 24, 2023 12:47 PM [facility] History of Present illness Narrative* Noemi Pham [...] bursa injection Informed Consent Consent Obtained: Verbal [place] Protocol A moment to CARE was completed. [...] -none Noemi Pham MD documented [facility]-2023 Evaluation note* Encounter Date Diagnosis Assessment Notes [...] May, Right elbow pain (ICD-10 - M25.521) [facility] Other 10-19-2023 Miscellaneous Notes* Telephone Encounter - Allison York OCCA - 05/12/2023 1:29 PM EDT Faxed [facility], patient is no longer on medication * Telephone Encounter - Minh Mosqueda - 05/12/2023 1:16 PM EDT Ashwini from [employer] is calling Noemi Pham MD today to clarify medication. When they were filling the enbrel, it flagged that the patient has a thrombocytopenia diagnosis. They need to clarify that the provider is aware. They cannot send the medication until they get that clarification. [phone] Patient has been identified by name and birthdate. Duration of symptoms: N/A Person calling: pharmacy: [facility] Call patient at: on cell [phone] (home) [phone] (cell) Was an appointment scheduled: No Closing statement: Results or non-symptom based questions: Thank you for calling [facility], your call will be returned within the next business day. Minh Mosqueda documented in this encounter[facility]08-16-2023 Miscellaneous Notes* Telephone Encounter - Jud Hess LPN - 03/09/2023 1:59 PM EDT Patient stopped taking the Plaquenil d/t skin rash. Provider aware. * Telephone Encounter - Noemi Pham MD - 03/09/2023 1:37 PM EDT She can continue on the plaquenil bid, eye exam reviewed, no toxicity noted. Noemi Pham MD documented in this encounter[facility]-10-2023 Miscellaneous Notes* Telephone Encounter - Brianda Palomares [...] and mail to her. documented in this encounter[facility]-05-2023 Miscellaneous Notes* Telephone Encounter - Brianda Palomares LPN - 01/26/2023 1:53 PM EDT Mailed LEVY label to patient per Dr. Pham's request * Telephone Encounter - Noemi Pham MD - 01/26/2023 1:45 PM EDT Please mail her lab order for LEVY panel. Noemi Pham MD documented in this encounter[facility]06-23-2023 NoteHNO ID: [id number] Author: Noemi Pham MD Service: ? Author [...] F/U: 6m Check following: -none Noemi Pham, [facility]06-21-2023 Miscellaneous Notes* Telephone Encounter - Noemi Pham MD - 01/12/2023 8:31 AM EDT The following approved medication requests have been transmitted electronically. Requested Prescriptions Pending Prescriptions Disp Refills metaxalone (SKELAXIN) 800 mg tablet [Pharmacy Med Name: METAXALONE 800 MG TABLET] 30 tablet 1 Sig: TAKE 1/2 TABLET BY MOUTH TWICE A DAY NEEDED Noemi Pham MD * Telephone Encounter - Jud Hess EVE - 01/11/2023 9:41 AM EDT Most recent [...] Days Visit Type Date Time Department [facility] 01/14/2023 11:00 AM [facility] Last Ophthalmology Check for Plaquenil [...] Instance) Lab Orders None documented in this encounter[facility]06-02-2023 NoteHNO ID: [id number] Author: Liz Connolly MD Service: ? Author Type: Physician Type: Progress Notes Filed: 01/04/2023 10:43 AM Note Text: [facility] Note- Established patient Provider: Liz Connolly MD [...] that she has been following with her service member with every 6 monthly appointments to monitor [...] There is also been weight gain since [facility] (going from 223 pounds to about 235 [...] neck, respiratory, cardiovascular, GI, (more content not included)...[facility] 12-24-2022 NoteHNO ID: [id number] Author: Alejo Marshall MD Service: ? Author [...] Care Visit completed when applicable. Megan Marshall [facility]06-02-2023 History of Present illness Narrative* Alejo Marshall [...] applicable. Megan Marshall MD documented in this encounter[facility]-10-2023 Miscellaneous Notes* Telephone Encounter - Inocencia Bui LPN - 12/01/2022 3:25 PM EDT Prior authorization for Enbrel initiated on Cover My Meds. Pending. documented in this encounter[facility]-02-2023 Miscellaneous Notes* Telephone Encounter - Brianna Murray RN - 11/23/2022 9:22 AM EDT Patient has appointment with Dr. Connolly on 12/24/22 and is asking if any tests should be done prior her appointment. Patient was referred by Dr. Pham ( [facility] Patient c/o of increased muscle weakness. Last [...] blood, level. Recent (08/11/2022)- 9.9 units/L Brianna Murray RN documented in this encounterSelect [facility]04-24-2023 Miscellaneous Notes* Telephone Encounter - Noemi Pham MD - 11/15/2022 1:22 PM EDT Please tell her I received labs from [facility] and her cpk and aldolase returned normal . (CPK was 11 and aldolase 5.0 Noemi Pham MD documented in this encounterSelect [facility]04-05-2023 Miscellaneous Notes* Telephone Encounter - Inocencia Bui LPN - 10/27/2022 9:44 AM EDT Please advise. documented in this encounterSelect [facility]03-13-2023 Miscellaneous Notes* Telephone Encounter - Noemi Pham [...] Days Visit Type Date Time Department [facility] 02/16/2023 11:20 AM [facility] RE[facility] Last Ophthalmology Check for Plaquenil [...] Instance) Lab Orders None documented in this encounterSelect [facility]02-15-2023 [facility] Gastroenterology Follow-Up Patient Visit CHIEF COMPLAINT Chief Complaint Patient presents with Follow-up Diarrhea HISTORY OF PRESENT ILLNESS: Lynette Hairston is a 47 y.o. female established patient. Summary of old records: Per HPI from 05/26/22 Lynette Hairston is a 46 y.o. female with PMH of gastroparesis, fatty liver, migraine headache, RA (follows with rheumatology in [place]), anxiety, POTS and IBS. She was last [...] injection, 1 ml, Dis (more content not included)...[facility]01-18-2023 NoteHNO ID: [id number] Author: Jud Hess LPN Service: ? Author Type: ? Type: Progress Notes Filed: 08/11/2022 11:22 AM Note Text: Patient given Depomedrol 80 mg IM in the left upper quadrant gluteus. Patient tolerated injection well. Lot#: [id number] Exp date: 03/23/2024 [facility]23 NoteHNO ID: [id number] Author: Inocencia Bui LPN Service: ? Author Type: ? Type: Progress Notes Filed: 08/11/2022 10:21 AM Note Text: Methylprednisolone injection verified. 80mg.[facility]01-18-2023 NoteHNO ID: [id number] Author: Noemi Pham MD Service: ? Author [...] F/U: 6m Check following: -none Noemi Pham [facility]01-18-2023 History of Present illness Narrative* Jud Hess LPN - 08/11/2022 11:21 AM EST Patient given Depomedrol 80 mg IM in the left upper quadrant gluteus. Patient tolerated injection well. Lot#: [id number] Exp date: 03/23/2024 Jud Hess LPN * [...] -none Noemi Pham MD documented in this encounter[facility]11-21-2022 Miscellaneous Notes* Telephone Encounter - Inocencia Bui LPN - 06/14/2022 3:35 PM EST Mohsen Prince Felder: [id number] - PA - Rx #: [id number] help? Call us at Outcome Approvedon June 11 CaseId:[id number];Status:Approved;Review Type:Prior Auth;Coverage Start Date:05/12/2022;Coverage End Date:06/11/2023; * Telephone Encounter - Jud Hess LPN - 06/11/2022 11:22 AM EST PA for Enbrel submitted via Cover Meds this date. If approved new Rx will need sent to [facility]. * Telephone Encounter - Shobha Lala - 06/04/2022 9:59 AM EST Lynette Deshaun Prince called today. : 1975 Allergies: Meloxicam and Methotrexate (home) [phone] (cell) Reason for call: patient states she spoke with [facility] & theyre requesting additional info for medication For ENBREL Please advise Patient last appointment: 05/29/2022 The patients preferred pharmacy has been captured for this encounter? yes SHOBHA LALA, RHODA documented in this encounterSelect [facility]11-10-2022 Miscellaneous Notes* Telephone Encounter - Inocencia Bui LPN - 06/03/2022 9:36 AM EST Follow up message from 05/17/22 encounter and orders. documented in this encounterSelect [facility]11-07-2022 Miscellaneous Notes* Telephone Encounter - Linnea Sanders [...] 365 Days Visit Type Date Time Department [facility] 10/20/2022 9:40 AM [facility] CBC: None on file in the [...] Instance) Lab Orders None documented in this encounterSelect [facility]11-02-2022 [facility] Gastroenterology Follow-Up Patient Visit CHIEF COMPLAINT Chief Complaint Patient presents with Diarrhea Follow-up Patient states she has randomly lost control of her bowels in the recent weeks. HISTORY OF PRESENT ILLNESS: Lynette Hairston is a 46 y.o. female with PMH of gastroparesis, fatty liver, migraine headache, RA (follows with rheumatology in [place]), anxiety, POTS and IBS. She was last [...] afternoon, and at bed (more content not included)...[facility]10-24-2022 Miscellaneous Notes* Telephone Encounter - Jud Hess LPN - 05/17/2022 4:26 PM EDT [employer] message sent to patient. * Telephone Encounter [...] : 1975 Allergies: Meloxicam and Methotrexate (home) [phone] (cell) Reason for call: Patient called asking for appointment wiwilliam Pham. She states she is having her [...] not asked Glory Mason documented in this encounterSelect [facility]06-07-2022 Miscellaneous Notes* Telephone Encounter - Jud Hess LPN - 12/29/2021 2:47 PM EDT PA for Enbrel submitted via Cover My Meds. Felder: [id number] Pend for determination * Telephone Encounter - [...] message on voicemail) ' documented in this encounterSelect [facility]04-06-2022 Miscellaneous Notes* Telephone Encounter - Jud Hess LPN - 10/28/2021 12:13 PM EDT Rx placed in outgoing mail this date. Patient notified via [employer]. * Telephone Encounter - Noemi Pham MD - 10/28/2021 11:59 AM EDT rx for handicapped written, please mail to patient. Noemi Pham MD [facility]* Diagnosis Neuropathic pain- Primary Neuralgia, neuritis, and radiculitis, unspecified documented in this encounter [facility] [employer] Work Phone: evaluation note* Diagnosis Fibromyalgia- Primary Mylagia and myositis, unspecified documented in this encounter [facility] noteNo assessment information availableThe [facility] Work Phone: Evaluation note* Diagnosis Rheumatoid arthritis involving multiple sites, unspecified whether rheumatoid factor present (HCC)- Primary documented in this encounter [facility] note* Diagnosis Myalgia- Primary Mylagia and myositis, unspecified documented in this encounter [facility] note* Diagnosis Fatigue, unspecified type- Primary Elevated aldolase level Other nonspecific abnormal serum enzyme levels Generalized weakness Other malaise and fatigue [facility]* Diagnosis Fatigue, unspecified type Elevated aldolase level Other nonspecific abnormal serum enzyme levels Generalized weakness Other malaise and fatigue documented in this encounter [facility]* Diagnosis Rheumatoid arthritis involving multiple sites, unspecified whether rheumatoid factor present (HCC)- Primary [facility]* Diagnosis Pain in joint, multiple sites- Primary Trochanteric bursitis of both hips Enthesopathy of hip region documented in this encounter [facility]* Diagnosis Pain in joint, multiple sites documented in this encounter [facility] noteNo InformationNortThomas [facility] [employer] Other Evaluation note* Diagnosis Status migrainosus- Primary Variants of migraine, not elsewhere classified, without mention of intractable migraine without mention of status migrainosus Migraine without aura and without status migrainosus, not intractable Cervicalgia Fibromyalgia Unspecified myalgia and myositis Paresthesias Disturbance of skin sensation Trapezius muscle spasm Vertigo Dizziness and giddiness [facility]* Diagnosis Primary hypertension- Primary Unspecified essential hypertension Coronary artery vasospasm ([facility]) Prinzmetal angina Intermittent palpitations Obstructive sleep apnea Obstructive sleep apnea (adult) (pediatric) documented [facility] general Narrative - Reported* Type Description Date Medical History rheumatoid arthritis Medical History anxiety Medical History chronic depression Medical History coronary artery disease Surgical History heart catheterization Surgical History gall bladder removed Surgical History tonsillectomy and adenoidectomy Surgical History HYSTERECTOMY Surgical History appendectomy Hospitalization History surgeries [facility] [employer] Other Hospital Discharge instructions* Instructions* Garfield Restrepo [...] a follow up appointment THANK YOU!!! From [facility] and [facility] On behalf of the Emergency Department staff at [facility], I would like to thank you for giving us the opportunity to address your health care needs and concerns. We hope that during your visit, our service was delivered in a professional and caring manner. Please keep [facility] in mind as we walk with you [...] how we did during your visit at [email or web address] and let us know about your experience * Attachments The following attachments cannot be sent through Care Everywhere. * Neuropathic Pain (Citizen Of [place]) documented in this encounterXoom Corporation Phone: InstructionsNot on filedocumented in this encounter myRete SystemInstructionsNot on filedocumented in this encounter myRete SystemInstructionsNot on filedocumented in this encounter myRete SystemInstructionsNot on filedocumented in this encounter [facility] (narrative)* Outpatient Procedure (Routine) - Pending Review Specialty Diagnoses / Procedures Referred By Alba shin Referred To Contact [facility] Diagnoses Fatigue, unspecified type Elevated aldolase level Generalized weakness Procedures EMG(NEURO/NI) NERVE CONDUCTION STUDIES 9-10 STUDIES Liz Connolly MD [address] [place] [address] [facility] [address] [place] [address] Referral ID Status Reason Start Date Expiration Date Visits Requested Visits Authorized [id number] Pending Review Auto-Generat ed Referral 11/23/2022 11/24/2023 1 1 [facility] for referral (narrative)* Diagnostic Procedure Only (Routine) - Closed Specialty Diagnoses / Procedures Referred By Alba shin Referred To Contact XR IMAGING Diagnoses Pain in joint, multiple sites Procedures XR LUMBAR GENERAL 3V AP/LAT/L5-S1 RADEX SPINE LUMBOSACRAL 2/3 VIEWS Noeim Pham MD [address] [place] [address] [place] [address] Referral ID Status Reason Start Date Expiration Date V isits Requested Visits Authorized [id number] Closed Auto-Generate d Referral 06/24/2023 07/23/2024 1 1 [facility] for referral (narrative)* Diagnostic Procedure Only (Routine) - Closed Specialty Diagnoses / Procedures Referred By Contac t Referred To Contact XR IMAGING Diagnoses Pain in joint, multiple sites Procedures XR LUMBAR GENERAL 3V AP/LAT/L5-S1 RADEX SPINE LUMBOSACRAL 2/3 VIEWS Noemi Pham MD [address] [place] [address] Xr Imaging [facility] Referral ID Status Reason Start Date Expiration Date V isits Requested Visits Authorized [id number] Closed Auto-Generate d Referral 06/24/2023 07/23/2024 1 1 [facility] for referral (narrative)* Consultation (Routine) - Pending Review Specialty Diagnoses / Procedures Referred By Contac t Referred To Contact Pulmonary Medicine Diagnoses Obstructive sleep apnea Michael Perkins MD [address] [place] [address] Olegario Joseph MD [address] [address] Referral ID Status Reason Start Date Expiration Date Visits Requested Visits Authorized [id number] Pending Review Specialty Services Required 09/02/2023 09/01/2024 1 1 [facility] for visit Narrative* Outpatient Procedure (Routine) - Closed Specialty Diagnoses / Procedures Referred By Contac t Referred To Contact [facility] Diagnoses Fatigue, unspecified type Elevated aldolase level Generalized weakness Procedures EMG(NEURO/NI) NERVE CONDUCTION STUDIES 9-10 STUDIES Liz Connolly MD [address] [place] [address] [facility] [address] [place] [address] Referral ID Status Reason Start Date Expiration Date V isits Requested Visits Authorized [id number] Closed Auto-Generate d Referral 11/23/2022 11/24/2023 1 1 [facility] Advance Directives No Advanced Directives Records FoundDocuments on File Type Date Recorded Patient Sand Carrier Expl anation ACP-Advance Directive ACP-Power of Chemical Equipment Repairer Documents on File Type Date Recorded Patient Sand Carrier Expl anation Advance Directives and Living Will Power of Chemical Equipment Repairer Documents on File Type Date Recorded Patient Sand Carrier Expl anation ACP-Advance Directive ACP-Power of Chemical Equipment Repairer Latest Code Status on File Code Status Date Activated Date Inactivated Comments Full Code 09/06/2022 4:15 PM 09/07/2022 7:01 PM Latest Code Status on File Code Status Date Activated Date Inactivated Comments Full Code 09/06/2022 4:15 PM 09/07/2022 7:01 PM Summary Purpose Family History No Family History Records FoundNo Family History Records FoundNo Family History Records FoundNo Family History Records FoundNo Family History Records FoundNo Family History Records FoundNo Family History Records FoundNo Family History Records Found Procedure Findings Note MR#: [id number] [facility] Pt. Name: Lynette Prince Surgery Date: 08/22/2019 Room #: Z0 Date of : 1975 PROCEDURE NOTE ATTENDING: Dina Zhou M.D. PROCEDURE PERFORMED: Esophagogastroduodenoscopy. CLERICAL ADVISER: Zackary Narvaez M.D. ANESTHESIA USED: Conscious sedation [...] ice in a towel. Please call your roll finisher tomorrow and your family physician tomorrow to schedule follow-up for 1to 2 days Return to the emergency room for worsening pain swelling numbness tingling or other emergent concerns * Attachments The following attachments cannot be sent through Care Everywhere. * Foot Sprain (Citizen [place]) documented in this encounter Assessments Diagnosis Sprain [...] Procedures eval and treat Isael Yoder MD [address] [facility] [place] [address] Sander Jauregui, PT Reason Comments Foot Pain [...] Noemi Pham MD [address] [place] [address] [place] [address] Referral ID Status Reason Start Date Expiration Date V isits Requested Visits Authorized [id number] Closed Auto-Generate d Referral 06/24/2023 07/23/2024 1 1 Reason Onset Date Comments Headache 07/21/2023 Reason Comments Migraine Migraine cocktail Reason Onset Date Comments Appointment 09/01/2023 Reason Comments Follow-up Hypertension INFORMATION SOURCE (unrecogn ized section and content) DATE CREATED AUTHOR 08/14/2020 [facility] DATE CREATED AUTHOR AUTHOR'S ORGANIZ ATION 07/25/2021 [facility] DATE CREATED AUTHOR AUTHOR'S ORGANIZ ATION 09/20/2022 [facility] DATE CREATED AUTHOR AUTHOR'S ORGANIZ ATION 10/30/2022 [facility] DATE CREATED AUTHOR AUTHOR'S ORGANIZ ATION 03/25/2023 [facility] DATE CREATED AUTHOR AUTHOR'S ORGANIZ ATION 06/27/2023 [facility] DATE CREATED AUTHOR AUTHOR'S ORGANIZ ATION 06/27/2023 [facility] DATE CREATED AUTHOR AUTHOR'S ORGANIZ ATION 09/05/2023 [facility] Ordered Prescriptions [...] or prosecute any alcohol or drug abuse patient.[facility] the event this information is protected by the Federal Confidentiality of Alcohol and Drug Abuse Patient Records regulations: The Federal rules restrict any use of the information to criminally investigate or prosecute any alcohol or drug abuse patient.[facility] the event this information is protected by the Federal Confidentiality of Alcohol and Drug Abuse Patient Records regulations: The Federal rules restrict any use of the information to criminally investigate or prosecute any alcohol or drug abuse patient.[facility] the event this information is protected by the Federal Confidentiality of Alcohol and Drug Abuse Patient Records regulations: The Federal rules restrict any use of the information to criminally investigate or prosecute any alcohol or drug abuse patient.[facility] the event this information is protected by the Federal Confidentiality of Alcohol and Drug Abuse Patient Records regulations: The Federal rules restrict any use of the information to criminally investigate or prosecute any alcohol or drug abuse patient.[facility] the event this information is protected by the Federal Confidentiality of Alcohol and Drug Abuse Patient Records regulations: The Federal rules restrict any use of the information to criminally investigate or prosecute any alcohol or drug abuse patient.[facility] the event this information is protected by the Federal Confidentiality of Alcohol and Drug Abuse Patient Records regulations: The Federal rules restrict any use of the information to criminally investigate or prosecute any alcohol or drug abuse patient.[facility] the event this information is protected by the Federal Confidentiality of Alcohol and Drug Abuse Patient Records regulations: The Federal rules restrict any use of the information to criminally investigate or prosecute any alcohol or drug abuse patient.[facility] the event this information is protected by the Federal Confidentiality of Alcohol and Drug Abuse Patient Records regulations: The Federal rules restrict any use of the information to criminally investigate or prosecute any alcohol or drug abuse patient.[facility] the event this information is protected by the Federal Confidentiality of Alcohol and Drug Abuse Patient Records regulations: The Federal rules restrict any use of the information to criminally investigate or prosecute any alcohol or drug abuse patient.[facility] the event this information is protected by the Federal Confidentiality of Alcohol and Drug Abuse Patient Records regulations: The Federal rules restrict any use of the information to criminally investigate or prosecute any alcohol or drug abuse patient.[facility] the event this information is protected by the Federal Confidentiality of Alcohol and Drug Abuse Patient Records regulations: The Federal rules restrict any use of the information to criminally investigate or prosecute any alcohol or drug abuse patient.[facility] the event this information is protected by the Federal Confidentiality of Alcohol and Drug Abuse Patient Records regulations: The Federal rules restrict any use of the information to criminally investigate or prosecute any alcohol or drug abuse patient.[facility] the event this information is protected by the Federal Confidentiality of Alcohol and Drug Abuse Patient Records regulations: The Federal rules restrict any use of the information to criminally investigate or prosecute any alcohol or drug abuse patient.[facility] the event this information is protected by the Federal Confidentiality of Alcohol and Drug Abuse Patient Records regulations: The Federal rules restrict any use of the information to criminally investigate or prosecute any alcohol or drug abuse patient.[facility] the event this information is protected by the Federal Confidentiality of Alcohol and Drug Abuse Patient Records regulations: The Federal rules restrict any use of the information to criminally investigate or prosecute any alcohol or drug abuse patient.[facility] the event this information is protected by the Federal Confidentiality of Alcohol and Drug Abuse Patient Records regulations: The Federal rules restrict any use of the information to criminally investigate or prosecute any alcohol or drug abuse patient.[facility] the event this information is protected by the Federal Confidentiality of Alcohol and Drug Abuse Patient Records regulations: The Federal rules restrict any use of the information to criminally investigate or prosecute any alcohol or drug abuse patient.[facility]stown[facility] the event this information is protected by the Federal Confidentiality of Alcohol and Drug Abuse Patient Records regulations: The Federal rules restrict any use of the information to criminally investigate or prosecute any alcohol or drug abuse patient.[facility]stown[facility] the event this information is protected by the Federal Confidentiality of Alcohol and Drug Abuse Patient Records regulations: The Federal rules restrict any use of the information to criminally investigate or prosecute any alcohol or drug abuse patient.[facility]stown[facility] the event this information is protected by the Federal Confidentiality of Alcohol and Drug Abuse Patient Records regulations: The Federal rules restrict any use of the information to criminally investigate or prosecute any alcohol or drug abuse patient.[facility] Care Teams (unrecognized sec tion and content) Folder Gluer Operator Relationship Specialty Start Date End Date Toy Obrien MD PCP - General Family Practice 07/05/16 Folder Gluer Operator Relationship Specialty Start Date End Date Toy Obrien MD PCP - General Family Practice 07/05/16 Folder Gluer Operator Relationship Specialty Start Date End Date Toy Obrien MD PCP - General Family Medicine 07/05/16 Folder Gluer Operator Relationship Specialty Start Date End Date Toy Obrien MD PCP - General Family Medicine 07/05/16 Folder Gluer Operator Relationship Specialty Start Date End Date Toy Obrien MD PCP - General Family Medicine 07/05/16 Team Status: Inactive Member Role Status Dates ZOEY Degroot Attending Provider Active Folder Gluer Operator Relationship Specialty Start Date End Date Toy Obrien MD PCP - General Family Medicine 07/05/16 Folder Gluer Operator Relationship Specialty Start Date End Date Toy Obrien MD PCP - General Family Medicine 07/05/16 Folder Gluer Operator Relationship Specialty Start Date End Date Toy Obrien MD PCP - General Family Medicine 07/05/16 Folder Gluer Operator Relationship Specialty Start Date End Date Toy Obrien MD PCP - General Family Medicine 07/05/16 Folder Gluer Operator Relationship Specialty Start Date End Date Toy Obrien MD PCP - General Family Medicine 07/05/16 Folder Gluer Operator Relationship Specialty Start Date End Date Toy Obrien MD PCP - General Family Medicine 07/05/16 Folder Gluer Operator Relationship Specialty Start Date End Date Toy Obrien MD PCP - General Family Medicine 07/05/16 Folder Gluer Operator Relationship Specialty Start Date End Date Toy Obrien MD PCP - General Family Medicine 07/05/16 Folder Gluer Operator Relationship Specialty Start Date End Date Toy Obrien MD PCP - General Family Medicine 07/05/16 Folder Gluer Operator Relationship Specialty Start Date End Date Toy Obrien MD PCP - General Family Medicine 07/05/16 Folder Gluer Operator Relationship Specialty Start Date End Date Toy Obrien MD PCP - General Family Medicine 07/05/16 Folder Gluer Operator Relationship Specialty Start Date End Date Toy Obrien MD [address] [place] [address] [place] [phone] PCP - General Family Medicine 09/06/22 Folder Gluer Operator Relationship Specialty Start Date End Date Toy Obrien MD [address] [place] [address] [place] [phone] PCP - [facility] Medicine 09/06/22 Folder Gluer Operator Relationship Specialty Start Date End Date Toy Obrien MD [facility] [place] [phone] PCP - General Family Medicine 09/06/22 Folder Gluer Operator Relationship Specialty Start Date End Date Toy Obrien MD [facility] [place] [phone] PCP - General [facility] Medicine 09/06/22 Folder Gluer Operator Relationship Specialty Start Date End Date Toy Obrien MD [facility] [place] [phone] PCP - General Family Medicine 09/06/22 Goals (unrecognized section and content) Goals may be documented in a n alternate sectionNo InformationNo InformationNot on filedocumented as of this encounterNo InformationNot on filedocumented as of this encounterNot on filedocumented as of this encounterNot on filedocumented as of this encounterNot on [...] BE BASED ON THE PRIMARY CLINICAL RECORDS. [facility]. provides no warranty or guarantee of the accuracy or completeness of information in this document.
[2023-09-12 09:06] LABS: Chloride 105 mmol/L (98-107); Estimated GFR (African America >60 (>=60); Estimated GFR (Non-African Ame 51 (>=60); Sodium 142 mmol/L (136-145)
== END 2023-09-12 08:27 | disposition home or self-care (01) ==
LOC: LAB 08:30
DX: I10 Essential (primary) hypertension (principal)
CPT/HCPCS: 36415; 80051; 82565; 84520

== ENCOUNTER 2023-09-20 09:26 | Outpatient (OUT) | payer OTHER, SELFPAY ==
--- OUTSIDE RECORDS SUMMARY | 2023-09-20 09:49 | XMS_ITS | CCD ---
Author Name Unknown Address [address] [place] [address] Organization [facility] Care Team Providers Care Toy Painter Name Role Phone Toy Obrien Primary Care Provider TOY OBRIEN Primary Care Unavailable GARFIELD RESTREPO Attending Unavailable TOY OBRIEN Primary Care Unavailable GARFIELD RESTREPO Attending Unavailable BLANCA DAWN Referring Unavailable TOY OBRIEN Primary Care Unavailable BLANCA DAWN Referring Unavailable TOY OBRIEN Primary Care Unavailable Toy Obrien MD Primary Care Provider [phone] Toy Obrien MD Primary Care Provider [phone] ZOEY Monson Attending Provider Toy Obrien MD Primary Care Provider Jud Monson Admitting Unavailable Jud Monson Attending Unavailable NON STAFF Primary Care Unavailable CRISTHIAN FALCON Attending Unavailable CRISTHIAN FALCON Attending Unavailable TOY OBRIEN Primary Care Unavailable AJCOBR, LACHELLE Natty Referring Unavailable TERRY SHEFFIELD Referring [...] Unavailable Toy Obrien MD Primary Care Provider [phone] Betty Moreau Unavailable CODY HUTCHINS Attending Unavailable TOY OBRIEN Referring Unavailable TOY OBRIEN Primary Care Unavailable MICHAEL PERKINS Attending Unavailable TOY OBRIEN Referring Unavailable TOY OBRIEN Primary Care Unavailable Allergies Allergy Classification Reported Allergen(s) Allergy Type Date of Onset Reaction(s) Facility NSAIDs (1 source) meloxicam Drug Allergy 7 [facility] (20 sources) meloxicam; Translations: [MELOXICAM] Drug Allergy 7 [place] (20 sources) Methotrexate; Translations: [METHOTREXATE] Drug Allergy 5 GI Upset, [facility] (7 sources) Isosorbide; Translations: [ISOSORBIDE MONONITRATE] Drug Allergy 2 Headache, Vomiting [facility] (3 sources) Isosorbide Dinitrate Drug Allergy Unknown [employer] Other Medications Current Medications Medication Drug Class(es) [...] Reference Range Facil ity POCT EKGon 09-02-2023 [facility] ALDOLASE BLDon 06-24-2023 Aldolase [Catalytic activity/Vol] 11.2 mU/mL High 1.5 - 8.1 U/L [facility] Aldolase SerPl-cCncon 2022 Aldolase [Catalytic activity/Vol] 11.2 mU/mL High 1.5-8.1 [facility] Comment on above: Order Comment: Speci men Type: BLOOD SPECIMEN Ordering Facility: [facility] Address: [address] [place] [address] Result Comment: This test was developed and its performance characteristics determined by [facility] ([facility]). It has not been cleared or approved by the FDA. -[facility] is regulated under CLIA as qualified to perform high-complexity testing. This test is used for clinical purposes. It should not be regarded as investigational or for research. Performed By: #### 1 761-6 #### [facility] CLIA [id number] [address] [facility] [place] [address] [place] C-REACTIVE PROTEIN (CRP)on 08-25-2022 CRP [Mass/Vol] 0.6 mg/dL <0.9 mg/dL [facility] CBC panel Auto (Bld)on 06-24 Erythrocyte distribution width (RBC) [Ratio] 11.9 % Normal 11.5-15.0 [facility] Comment on above: Order Comment: Mert [facility] Type: BLOOD SPECIMEN Ordering Facility: [facility] Address: [address] [place] [address] Performed By: #### 5 8410-2 #### [facility] CLIA [id number] [address] [place] Hematocrit (Bld) [Volume fraction] 45.7 % Normal 36.0-46.0 [facility] Comment on above: Order Comment: Lynni ivon Type: BLOOD SPECIMEN Ordering Facility: [facility] Address: [address] [place] [address] Performed By: #### 5 8410-2 #### [facility] CLIA [id number] [address] [place] [address] [place] Hemoglobin (Bld) [Mass/Vol] 15.5 g/dL Normal 11.5-15.5 [facility] Comment on above: Order Comment: Mert del valle Type: BLOOD SPECIMEN Ordering Facility: [facility] Address: [address] [place] [address] Performed By: #### 5 8410-2 #### [facility] CLIA [id number] [address] [place], [place] [id number] [place] [address] [place] MCH (RBC) [Entitic mass] 31.6 pg Normal 26.0-34.0 [facility] Comment on above: Order Comment: Speci men Type: BLOOD SPECIMEN Ordering Facility: [facility] Address: [address] [place] [address] Performed By: #### 5 8410-2 #### [facility] CLIA [id number] [address] [place] MCHC (RBC) [Mass/Vol] 33.9 g/dL Normal 30.5-36.0 [facility] Comment on above: Order Comment: Speci men Type: BLOOD SPECIMEN Ordering Facility: [facility] Address: [address] [place] [address] Performed By: #### 5 8410-2 #### [facility] [place] [id number] [address] [place] MCV (RBC) [Entitic vol] 93.1 fL Normal 80.0-100.0 [facility] Comment on above: Order Comment: Speci men Type: BLOOD SPECIMEN Ordering Facility: [facility] Address: [address] [place] [address] Performed By: #### 5 8410-2 #### [facility] [place] [id number] [address] [place] Nucleated RBC (Bld) [#/Vol] 10*3/uL Normal <0.01 [facility] Comment on above: Order Comment: Speci men Type: BLOOD SPECIMEN Ordering Facility: [facility] Address: [address] [place] [address] Performed By: #### 5 8410-2 #### [facility] [place] [id number] [address] [place] Platelet mean volume (Bld) [Entitic vol] 10.6 fL Normal 9.0-12.7 [facility] Comment on above: Order Comment: Speci men Type: BLOOD SPECIMEN Ordering Facility: [facility] Address: [address] [place] [address] Performed By: #### 5 8410-2 #### [facility] IA [id number] [address] [place] [address] [place] Platelets (Bld) [#/Vol] 192 10*3/uL Normal 150-400 [facility] Comment on above: Order Comment: Speci men Type: BLOOD SPECIMEN Ordering Facility: [facility] Address: [address] [place] [address] Performed By: #### 5 8410-2 #### [facility] IA [id number] [address] [place] [address] [place] RBC (Bld) [#/Vol] 4.91 10*6/uL Normal 3.90-5.20 [facility] Comment on above: Order Comment: Speci men Type: BLOOD SPECIMEN Ordering Facility: [facility] Address: [address] [place] [address] Performed By: #### 5 8410-2 #### [facility] IA [id number] [address] [place] [address] [place] WBC (Bld) [#/Vol] 8.95 10*3/uL Normal 3.70-11.00 [facility] Comment on above: Order Comment: Speci men Type: BLOOD SPECIMEN Ordering Facility: [facility] Address: [address] [place] [address] Performed By: #### 5 8410-2 #### [facility] IA [id number] [address] [place] [address] [place] Erythrocyte distribution width (RBC) [Ratio] 11.9 % 11.5 - 15.0 % [facility] Hematocrit (Bld) [Volume fraction] 45.7 % 36.0 - 46.0 % [facility] Hemoglobin (Bld) [Mass/Vol] 15.5 g/dL 11.5 - 15.5 g/dL [facility] MCH (RBC) [Entitic mass] 31.6 pg 26.0 - 34.0 pg [facility] MCHC (RBC) [Mass/Vol] 33.9 g/dL 30.5 - 36.0 g/dL [facility] MCV (RBC) [Entitic vol] 93.1 fL 80.0 - 100.0 fL [facility] Nucleated RBC (Bld) [#/Vol] <0.01 k/uL [facility] Platelet mean volume (Bld) [Entitic vol] 10.6 fL 9.0 - 12.7 fL [facility] Platelets (Bld) [#/Vol] 192 10*3/uL 150 - 400 k/uL [facility] RBC (Bld) [#/Vol] 4.91 10*6/uL 3.90 - 5.2 0 m/uL [facility] WBC (Bld) [#/Vol] 8.95 10*3/uL 3.70 - 11. 00 k/uL [facility] CK CREATINE KINASEon 023 CK [Catalytic activity/Vol] 119 U/L 42 - 196 U/L [facility] CK SerPl-cCncon 06-24-2023 CK [Catalytic activity/Vol] 119 U/L Normal 42-196 [facility] Comment on above: Order Comment: Speci men Type: BLOOD SPECIMEN Ordering Facility: [facility] Address: [address] [place] [address] Performed By: #### 2 157-6, 1987-11, 01121-1 #### [facility] CLIA [id number] [address] [facility] [facility] [address] [place] [address] [facility] CNOVon 06-24-2023 CNOV Office Visit (RHEUAV ) LYNETTE HAIRSTON ([id number]) 1975 F Date Time Provider Department 06/24/23 [...] bursa injection Informed Consent Consent Obtained: Verbal [place] Protocol A moment to CARE was completed. [...] myopthay and (more content not included)... Normal [facility] CRP SerPl-ncon 06-24-2023 CRP [Mass/Vol] 0.6 mg/dL Normal <0.9 [facility] Comment on above: Order Comment: Speci men Type: BLOOD SPECIMEN Ordering Facility: [facility] Address: [address] [place] [address] Performed By: #### 2 157-6, 1987-11, #### [facility] CLIA [id number] [address] [place] [address] [place] Comprehensive metabolic 2000 panelon 06-24-2023 Albumin [Mass/Vol] 4.5 g/dL Normal 3.9-4.9 [facility] Comment on above: Order Comment: Speci men Type: BLOOD SPECIMEN Ordering Facility: [facility] Address: [address] [place] [address] Performed By: #### 2 157-6, #### [facility] CLIA [id number] [address] [place] [address] [place] ALP [Catalytic activity/Vol] 46 U/L Normal 34-123 [facility] Comment on above: Order Comment: Speci men Type: BLOOD SPECIMEN Ordering Facility: [facility] Address: [address] [place] [address] Performed By: #### 2 157-6, #### [facility] CLIA [id number] [address] [place] [address] [place] ALT [Catalytic activity/Vol] 46 U/L High 7-38 [facility] Comment on above: Order Comment: Speci men Type: BLOOD SPECIMEN Ordering Facility: [facility] Address: [address] [place] [address] Performed By: #### 2 157-6, 1987-11, #### [facility] CLIA [id number] [address] [place] [address] [place] Anion gap [Moles/Vol] 8 mmol/L Low 9-18 [facility] Comment on above: Order Comment: Speci men Type: BLOOD SPECIMEN Ordering Facility: [facility] Address: [address] [place] [address] Performed By: #### 2 157-6, 1987-11, #### [facility] CLIA [id number] [address] [place] [address] [place] AST [Catalytic activity/Vol] 39 U/L High 13-35 [facility] Comment on above: Order Comment: Speci men Type: BLOOD SPECIMEN Ordering Facility: [facility] Address: [address] [place] [address] Performed By: #### 2 157-6, 1987-11, #### [facility] CLIA [id number] [address] [place] [address] [place] Bilirubin [Mass/Vol] 1.2 mg/dL Normal 0.2-1.3 [facility] Comment on above: Order Comment: Speci men Type: BLOOD SPECIMEN Ordering Facility: [facility] Address: [address] [place] [address] Performed By: #### 2 157-6, 1987-11, #### [facility] CLIA [id number] [address] [facility] [place] [address] [place] Calcium [Mass/Vol] 9.5 mg/dL Normal 8.5-10.2 [facility] Comment on above: Order Comment: Speci men Type: BLOOD SPECIMEN Ordering Facility: [facility] Address: [address] [place] [address] Performed By: #### 2 157-6, 1987-11, #### [facility] CLIA [id number] [address] [facility] [place] [address] [place] Chloride [Moles/Vol] 105 mmol/L Normal 97-105 [facility] Comment on above: Order Comment: Speci men Type: BLOOD SPECIMEN Ordering Facility: [facility] Address: [address] [place] [id number] Performed By: #### 2 157-6, #### [facility] CLIA [id number] [address] [place] [address] [place] CO2 [Moles/Vol] 27 mmol/L Normal 22-30 [facility] Comment on above: Order Comment: Speci men Type: BLOOD SPECIMEN Ordering Facility: [facility] Address: [address] [place] [address] Performed By: #### 2 157-6, #### [facility] CLIA [id number] [address] [place] [address] [place] Creatinine [Mass/Vol] 1.10 mg/dL High 0.58-0.96 [facility] Comment on above: Order Comment: Speci men Type: BLOOD SPECIMEN Ordering Facility: [facility] Address: [address] [place] [id number] Performed By: #### 2 157-6, #### [facility] CLIA [id number] [address] [place] [address] [place] Creatinine and Glomerular filtration rate.predicted panel (S/P/Bld) 62 mL/min/1.73m??? Normal >=60 [facility] Comment on above: Order Comment: Speci men Type: BLOOD SPECIMEN Ordering Facility: [facility] Address: [address] [place] [id number] Result Comment: Flores mated Glomerular Filtration Rate [...] GFR. Performed By: #### 2 157-6, #### [facility] CLIA [id number] [address] [place] [address] [place] Glucose [Mass/Vol] 94 mg/dL Normal 74-99 [facility] Comment on above: Order Comment: Speci men Type: BLOOD SPECIMEN Ordering Facility: [facility] Address: [address] [place] [address] Result Comment: The [place] Diabetes Association (ADA) provides guidance for cutoff [...] Standards of Medical Care in Diabetes 2016, [place] Diabetes Association. Diabetes Care. 2016.39(Suppl 1). Performed By: #### 2 157, #### [facility] CLIA [id number] [address] [place] [address] [place] Potassium [Moles/Vol] 4.2 mmol/L Normal 3.7-5.1 [facility] Comment on above: Order Comment: Speci men Type: BLOOD SPECIMEN Ordering Facility: [facility] Address: [address] [place] [address] Performed By: #### 2 157-, #### [facility] CLIA [id number] [address] [place] [address] [place] Protein [Mass/Vol] 7.3 g/dL Normal 6.3-8.0 [facility] Comment on above: Order Comment: Speci men Type: BLOOD SPECIMEN Ordering Facility: [facility] Address: [address] [place] [address] Performed By: #### 2 1576, #### [facility] CLIA [id number] [address] [place] [address] [place] Sodium [Moles/Vol] 140 mmol/L Normal 136-144 [facility] kale Comment on above: Order Comment: Speci men Type: BLOOD SPECIMEN Ordering Facility: [facility] Address: [address] [place] [id number] Performed By: #### 2 157-6, 1987-11, #### [facility] CLIA [id number] [address] [place] [address] [place] Urea nitrogen [Mass/Vol] 12 mg/dL Normal 7-21 [facility] Comment on above: Order Comment: Speci men Type: BLOOD SPECIMEN Ordering Facility: [facility] Address: [address] [place] [id number] Performed By: #### 2 157-6, 1987-11, #### [facility] CLIA [id number] [address] [place] [address] [place] Albumin [Mass/Vol] 4.5 g/dL 3.9 - 4.9 g/dL [facility] ALP [Catalytic activity/Vol] 46 U/L 34 - 123 U/L [facility] ALT [Catalytic activity/Vol] 46 U/L High 7 - 38 U/L [facility] Anion gap [Moles/Vol] 8 mmol/L Low 9 - 18 mmol/L [facility] AST [Catalytic activity/Vol] 39 U/L High 13 - 35 U/L [facility] Bilirubin [Mass/Vol] 1.2 mg/dL 0.2 - 1.3 mg/dL [facility] Calcium [Mass/Vol] 9.5 mg/dL 8.5 - 10. 2 mg/dL [facility] Chloride [Moles/Vol] 105 mmol/L 97 - 105 mmol/L [facility] CO2 [Moles/Vol] 27 mmol/L 22 - 30 mmol/L [facility] Creatinine [Mass/Vol] 1.10 mg/dL High 0.58 - 0.96 mg/dL [facility] Estimated Glomerular Filtration Rate 62 mL/min/1.73m >=60 mL/min/1.73m [facility] Glucose [Mass/Vol] 94 mg/dL 74 - 99 mg/dL [facility] Potassium [Moles/Vol] 4.2 mmol/L 3.7 - 5.1 mmol/L [facility] Protein [Mass/Vol] 7.3 g/dL 6.3 - 8.0 g/dL [facility] Sodium [Moles/Vol] 140 mmol/L 136 - 144 mmol/L [facility] Urea nitrogen [Mass/Vol] 12 mg/dL 7 - 21 mg/dL [facility] ESR Westergren method (Bld) [Velocity]on 06-24-2023 ESR (Bld) [Velocity] 23 mm/h High 0 - 20 mm/hr [facility] ESR (Bld) [Velocity] 23 mm/h High 0-20 [facility] Comment on above: Order Comment: Speci men Type: BLOOD SPECIMEN Ordering Facility: [facility] Address: [address] [place] [address] Performed By: #### 2 157-6, 1987-, 88974-2 #### [facility] CLIA [id number] [place] [address] [place] No Panel Informationon 06-24 [facility] XR LUMBAR 3V AP/LAT/L5-S1on 06-24-2023 XR LUMBAR [...] DEGENERATIVE CHANGES AND LEVOSCOLIOSIS SIMILAR TO PRIOR. Cyber Instructor: PSCB Transcribe Date/Time: Jun 24 2023 1:12P Dictated by : BRADY FELDMAN MD This examination was interpreted and the report reviewed and electronically signed by: BRADY FELDMAN MD on Jun 24 2023 1:14PM EST [id number] [facility] 05-12-2023 CNP Telephone (RHEUAV) LYNETTE HAIRSTON ([id number]) 1975 F Date Time Provider Department 05/12/23 NOEMI PHAM During your visit today, we recorded the following information about you: Minh Mosqueda 05/12/2023 1:20 PM Signed Ashwini from [facility] is calling Noemi Pham MD today to clarify medication. When they were filling the enbrel, it flagged that the patient has a thrombocytopenia diagnosis. They need to clarify that the provider is aware. They cannot send the medication until they get that clarification. [phone] Patient has been identified by name and birthdate. Duration of symptoms: N/A Person calling: pharmacy: [facility] Call patient at: on cell [phone] (home) [phone] (cell) Was an appointment scheduled: No Closing statement: Results or non-symptom based questions: Thank you for calling [facility], your call will be returned within the next business day. Allison Rodríguez OCCA 05/12/2023 1:29 PM Signed Faxed [facility], patient is no longer on medication Jonelle [...] 365 Days Visit Type Date Time Department [facility] 06/24/2023 11:20 AM [facility] REJ Last Ophthalmology Check for Plaquenil (Hydroxychloroquine) [...] 05/19/2023 10:06 AM Signed [facility]. I spoke with [facility] and informed them patient was cleared from [...] acting, (LOPR (more content not included)... Normal [facility] Miscellaneouson 03-24-2023 Send Out Report Normal [facility] Comment on above: Result Comment: PERF ORMED AT [facility] [address] [place] [address] (NOTE) Fat, Fecal Quantitative 72-Hour Collection (Includes Homogenization) [facility] test code [id number] Fat, Fecal Quantitative 72-Hour 4.2 g/d (Ref Interval: 0.0-6.0) INTERPRETIVE INFORMATION: Fat, Fecal Quantitative 72-Hour Collection Access complete set of age- and/or gender-specific reference intervals for this test in the [facility] Test Directory ([employer]). This test was developed and its performance characteristics determined by [facility]. It has not been cleared or approved [...] g Performed By: #### C MIS #### [facility] [address] [facility] [place] [address] Hand Drawer In Helper: Richie Alexis DO Miscellaneouson 03-22-2023 Test Name 72 Normal [facility] Comment on above: Performed By: #### C MIS #### [facility] [address] [facility] [place] [address] Hand Drawer In Helper: Richie Alexis DO CNPNon 03-09-2023 [facility]EDENWavestream[facility] LYNETTE HAIRSTON ([id number]) 1975 F Date Time Provider Department 03/09/23 [...] Status:Closed by JUD [facility] N[facility]ED [facility] (HYUN) LYNETTE HAIRSTON ([id number]) 1975 F Date Time Provider Department 01/28/23 [...] Encounter Status:Closed by BRIANDA PALOMARES on 01/31/23 [facility] 01-26-2023 STACIAN Telephone (RHEUAV) LYNETTE HAIRSTON ([id number]) 1975 F Date Time Provider Department 01/26/23 [...] 01/26/2023 11:13 AM Signed Message sent on Tactilize regarding this . Noemi Pham MD Allergies [...] Status:Closed by NOEMI PHAM on 01/26/23 Normal [facility] ANURAG BY IFA WITH REFLEXon Nuclear Ab IF (S) [Titer] Negative Normal Negative [facility] Comment on above: Order Comment: Mert del valle Type: BLOOD SPECIMEN Ordering Facility: [facility] Address: [address] [place] [address] Result Comment: Anti -nuclear antibody test is used as an aid in diagnosis of systemic autoimmune diseases. Where positive and clinically warranted, follow-up using disease-specific testing is recommended. Low positive titers are not uncommon with advanced age, certain chronic infections, and malignancies among others. Test methodology: Indirect fluorescence immunoassay (IFA) using HEp-2 cells. Performed By: #### 1 761-6 #### [facility] CLIA [id number] [address] [place] [address] [place] Aldolase SerPl-cCncon 2022 Aldolase [Catalytic activity/Vol] 8.8 mU/mL High 1.5-8.1 [facility] Comment on above: Order Comment: Mert del valle Type: BLOOD SPECIMEN Ordering Facility: [facility] Address: [address] [place] [address] Result Comment: This test was developed and its performance characteristics determined by [facility] ([facility]). It has not been cleared or approved by the FDA. [facility] is regulated under CLIA as qualified to perform high-complexity testing. This test is used for clinical purposes. It should not be regarded as investigational or for research. Performed By: #### 1 761-6 #### [facility] CLIA [id number] [address] [place] [address] [place] CK SerPl-cCncon 01-14-2023 CK [Catalytic activity/Vol] 110 U/L Normal 42-196 [facility] Comment on above: Order Comment: Mert del valle Type: BLOOD SPECIMEN Ordering Facility: [facility] Address: [address] [place] [address] Performed By: #### 1 761-6 #### [facility] CLIA [id number] [address] [place] [address] [place] CNOVon 01-14-2023 CNOV Office Visit (RHEUAV ) FRANTZLYNETTE Deshaun ([id number]) 1975 F Date Time Provider Department 01/14/23 [...] acute joint pain - F/U in 6m Neomi Pham MD F/U: 6m Check following: -none MD Andrea Lopez, COMMUNITY EDUCATOR 01/14/2023 11:48 AM Signed Verified 80mg depomedrol injection with Paty Mckinney LPN. Allergies As of Date: 01/14/2023 Noted Allergy Reaction MELOXICAM 11/23/2016 4 - Hives Comments: METHOTREXATE 12/25/2014 8 - GI Upset Date Reviewed: 01/14/2023 Reviewed by: Minna Mckinney RN - Fully Assessed Reason for Visit: Follow Up [171] Primary Visit Diagnosis:Malar rash [R21] Order(s):HISTONE IGG LAUREANO [SQHISTN] Order #: [id number] FUTURE ANURAG BY IFA WITH REFLEX [SQANAIFR] Order #: [id number] FUTURE ANURAG BLOOD [SQANAS] Order #: [id number] FUTURE ANTI LEVY ID [SQENAID] Order #: [id number] FUTURE SED RATE WESTERGREN [SQWSR] Order #: [id number] FUTURE C-REACTIVE PROTEIN (CRP) [SQCRP] Order #: [id number] FUTURE RHEUMATOID FACTOR BL [SQRF] Order #: [id number] FUTURE CK CREATINE KINASE [SQCK] Order #: [id number] FUTURE ALDOLASE BLD [SQALD] Order #: [id number] FUTURE [] methylPREDN (more content not included)... Normal [facility] CRP SerPl-mCncon 01-14-2023 CRP [Mass/Vol] 0.6 mg/dL Normal <0.9 [facility] Comment on above: Order Comment: Speci men Type: BLOOD SPECIMEN Ordering Facility: [facility] Address: [facility] [place] [address] Performed By: #### 2 157-6, 1987-, 26863-2 #### [facility] [facility] CLIA [id number] [facility] [place] [address] [place] ESR Westergren method (Bld) [Velocity]on 01-14-2023 ESR (Bld) [Velocity] 16 mm/h Normal 0-20 [facility] Comment on above: Order Comment: Mert del valle Type: BLOOD SPECIMEN Ordering Facility: [facility] Address: [address] [place] [address] Performed By: #### 1 761-6 #### [facility] CLIA [id number] [address] [place] [address] [place] HISTONE IGG ABYon 01-14-2023 HISTONE 0.1 Units Normal <1.0 [facility] Comment on above: Order Comment: Mert del valle Type: BLOOD SPECIMEN Ordering Facility: [facility] Address: [address] [place] [address] Performed By: #### 1 761-6 #### [facility] CLIA [id number] [address] [place] [address] [place] HISTONE IGG QUALITATIVE Negative Normal [facility] Comment on above: Order Comment: Mert del valle Type: BLOOD SPECIMEN Ordering Facility: [facility] Address: [address] [place] [address] Result Comment: Anti -histone IgG antibody test [...] required. Performed By: #### 1 761-6 #### [facility] IA [id number] [address] [place] [address] [place] Nuclear Ab IA Ql (S)on 01-14 ANURAG SCR QUAL Negative Normal Negative [facility] Comment on above: Order Comment: Mert del valle Type: BLOOD SPECIMEN Ordering Facility: [facility] Address: [address] [place] [address] Result Comment: The qualitative antinuclear antibody screen test performed using the following antigens: dsDNA, Chromatin, Ribosomal P, SS-A 60, SS-A 52, SS-B, Sm, SmRNP, ASSISTED LIVING ADMINISTRATOR A, ASSISTED LIVING ADMINISTRATOR 68, Scl-70, Odalis-1, and Centromere B. Methodology: Multiplex flow immunoassay. Performed By: #### 1 761-6 #### [facility] CLIA [id number] [address] [place] [address] [place] Rheumatoid fact SerPl-aCncon 01-14-2023 Rheumatoid factor Qn [IU]/mL High <16 [facility] Comment on above: Order Comment: Speci men Type: BLOOD SPECIMEN Ordering Facility: [facility] Address: [address] [id number] Performed By: #### 1 1572-5 #### [facility] CLIA [id number] [address] [place] [address] [facility] CNOVon 12-24-2022 CNOV Office Visit (NENMMN ) LYNETTE HAIRSTON ([id number]) 1975 F Date Time Provider Department 12/24/22 1:00 PM LIZ CONNOLLY During your visit today, we recorded the following information about you: Pulse Blood pressure 106/minute 121/84 Liz Connolly MD 01/04/2023 10:43 AM Signed S[facility] Note- Established patient Provider: Liz [...] that she has been following with her heating and ventilation engineer with every 6 monthly appointments to monitor [...] There is also been weight gain since [facility] (going from 223 pounds to about [...] current facility-administ (more content not included)... Normal [facility] EMG(NEURO/NI)on 12-24-2022 [facility] Surgical Pathologyon 023 Surgical Pathology (NOTE) Path Number: [id number] -- Diagnosis -- Colon, random biopsies: Normal [...] is no dysplasia or malignancy. Processing Lab: [facility] [address] [place] [address] Interpretation Performed at [facility] [address] [place] [address] SURGICAL PATHOLOGY CONSULTATION Patient Name: LYNETTE HAIRSTON. [facility] Rec: [id number] [facility] ANATOMIC PATHOLOGY [address] [place], [place] [address] Normal [facility] Comment on above: Performed By: #### P PPVS #### [employer] [address] [place] [address] Hand Drawer In Helper: MD Mary Velazquez 12-01-2022 NAVEED Telephone (HYUN) LYNETTE HAIRSTON ([id number]) 1975 F Date Time Provider Department 12/01/22 [...] Status:Closed by INOCENCIA BUI LPN on 12/01/22 [facility] Mary 11-15-2022 NAVEED Telephone (SUNGUAV) LYNETTE HAIRSTON ([id number]) 1975 F Date Time Provider Department 11/15/22 NOEMI PHAM During your visit today, we recorded the following information about you: Noemi Pham MD 11/15/2022 1:23 PM Signed Please tell her I received labs from [facility] and her cpk and aldolase returned [...] Status:Closed by NOEMI PHAM on 11/15/22 Normal [facility] Orders Onlyon 10-28-2022 Orders Only [id number] Minh Hairston 1975 Provider Department Center 10/28/2022 CRISTHIAN MARIE MP [facility] Family History Family Status - Relation Status Age at Daughter Notes: pancreatic insuffiency Son Notes: Crohns [facility] 09-08-2022 Lab [id number] Minh Hairston 1975 [facility] Provider Department Center 09/08/[address] [place] [address] [facility] Family History Family Status - Relation Status Age at Daughter Notes: pancreatic insuffiency Son Notes: Crohns Normal [facility] Office Visiton 09-08-2022 Follow-up visit [id number] Minh Hairston 1975 Provider Department Center 09/08/2022 CRISTHIAN MARIE MP Medical [facility]avi Family History Family Status - Relation Status Age at Daughter Notes: pancreatic insuffiency Son Notes: Crohns Level of Service:66893 [place] OFFICE/OUTPATIENT ESTABLISHED MOD MDM 30-39 MIN Reason for Visit and Comments: Follow-up [048598] Diarrhea [35] Normal [facility] PANCREATIC ELASTASE, FECALon 09-08-2022 PANCREATIC ELASTASE, FECAL >800 Normal >=100 [facility] Comment on above: Result Comment: REFE RENCE INTERVAL: Pancreatic Elastase Fecal by Immunoassay Less than 100 ug/g............Severe insufficiency 100 - 199 ug/g................Moderate insufficiency 200 ug/g or greater...........Normal INTERPRETIVE INFORMATION: Pancreatic Elastase Fecal by Immunoassay Reference intervals do not apply for infants less than one month old. Performed by [facility], [address] [place] [address] www.[email or web address], Vito Arteaga MD, PHD, Lab. Director Performed By: #### L AB979 ####[facility] (BEAKER)[address] [place] [address] Aldolase SerPl-cCncon 2022 Aldolase [Catalytic activity/Vol] 9.9 mU/mL High 1.5-8.1 [facility] Comment on above: Order Comment: Mert del valle Type: BLOOD SPECIMEN Ordering Facility: [facility] Address: [address] [phone] Result Comment: This test was developed and its performance characteristics determined by [facility] Pathology and [facility] [place] ([facility]). It has not been cleared or approved by the FDA. [facility] is regulated under CLIA as qualified to perform high-complexity testing. This test is used for clinical purposes. It should not be regarded as investigational or for research. Performed By: #### 1 761-6 #### [facility] CLIA [id number] [address] [place] [address] [place] C-REACTIVE PROTEIN (CRP)on 0 08-11-2022 CRP [Mass/Vol] 0.8 mg/dL <0.9 mg/dL [facility] CBC panel Auto (Bld)on 08-11 Erythrocyte distribution width (RBC) [Ratio] 11.7 % Normal 11.5-15.0 [facility] Comment on above: Order Comment: Mert del valle Type: BLOOD SPECIMEN Ordering Facility: [facility] Address: [address] [place] [address] Performed By: #### 1 761-6 #### [facility] CLIA [id number] [address] STATES OF [facility] Hematocrit (Bld) [Volume fraction] 44.1 % Normal 36.0-46.0 [facility] Comment on above: Order Comment: Speci men Type: BLOOD SPECIMEN Ordering Facility: [facility] Address: [address] Performed By: #### 1 761-6 #### [facility] CLIA [id number] [address] [place] Hemoglobin (Bld) [Mass/Vol] 15.2 g/dL Normal 11.5-15.5 [facility] Comment on above: Order Comment: Speci men Type: BLOOD SPECIMEN Ordering Facility: [facility] Address: [address] Performed By: #### 1 761-6 #### [facility] CLIA [id number] [address] [place] [address] [place] MCH (RBC) [Entitic mass] 31.7 pg Normal 26.0-34.0 [facility] Comment on above: Order Comment: Speci men Type: BLOOD SPECIMEN Ordering Facility: [facility] Address: [address] Performed By: #### 1 761-6 #### [facility] CLIA [id number] [address] [place] [address] [place] MCHC (RBC) [Mass/Vol] 34.5 g/dL Normal 30.5-36.0 [facility] Comment on above: Order Comment: Speci men Type: BLOOD SPECIMEN Ordering Facility: [facility] Address: [address] Performed By: #### 1 761-6 #### [facility] CLIA [id number] [address] [place] [address] [place] MCV (RBC) [Entitic vol] 92.1 fL Normal 80.0-100.0 [facility] Comment on above: Order Comment: Speci men Type: BLOOD SPECIMEN Ordering Facility: [facility] Address: [address] Performed By: #### 1 761-6 #### [facility] CLIA [id number] [address] [place] [address] [place] Nucleated RBC (Bld) [#/Vol] 10*3/uL Normal <0.01 [facility] Comment on above: Order Comment: Speci men Type: BLOOD SPECIMEN Ordering Facility: [facility] Address: [address] [place], [place] [address] Performed By: #### 1 761-6 #### [facility] CLIA [id number] [address] [place] [address] [place] Platelet mean volume (Bld) [Entitic vol] 11.0 fL Normal 9.0-12.7 [facility] Comment on above: Order Comment: Speci men Type: BLOOD SPECIMEN Ordering Facility: [facility] Address: [address] [place], [place] [address] Performed By: #### 1 761-6 #### [facility] CLIA [id number] [address] [place] [address] [place] Platelets (Bld) [#/Vol] 205 10*3/uL Normal 150-400 [facility] Comment on above: Order Comment: Speci men Type: BLOOD SPECIMEN Ordering Facility: [facility] Address: [address] [place] [address] Performed By: #### 1 761-6 #### [facility] CLIA [id number] [address] [place] [address] [place] RBC (Bld) [#/Vol] 4.79 10*6/uL Normal 3.90-5.20 [facility] Comment on above: Order Comment: Speci men Type: BLOOD SPECIMEN Ordering Facility: [facility] Address: [address] [place] [address] Performed By: #### 1 761-6 #### [facility] CLIA [id number] [address] [place] [address] [facility] WBC (Bld) [#/Vol] 9.49 10*3/uL Normal 3.70-11.00 [facility] Comment on above: Order Comment: Speci men Type: BLOOD SPECIMEN Ordering Facility: [facility] Address: [address] [place] [address] Performed By: #### 1 761-6 #### [facility] CLIA [id number] 9500 [facility] DESK [address] STATES OF [facility] Erythrocyte distribution width (RBC) [Ratio] 11.7 % 11.5 - 15.0 % [facility] Hematocrit (Bld) [Volume fraction] 44.1 % 36.0 - 46.0 % [facility] Hemoglobin (Bld) [Mass/Vol] 15.2 g/dL 11.5 - 15.5 g/dL [facility] MCH (RBC) [Entitic mass] 31.7 pg 26.0 - 34.0 pg [facility] MCHC (RBC) [Mass/Vol] 34.5 g/dL 30.5 - 36.0 g/dL [facility] MCV (RBC) [Entitic vol] 92.1 fL 80.0 - 100.0 fL [facility] Nucleated RBC (Bld) [#/Vol] <0.01 k/uL [facility] Platelet mean volume (Bld) [Entitic vol] 11.0 fL 9.0 - 12.7 fL [facility] Platelets (Bld) [#/Vol] 205 10*3/uL 150 - 400 k/uL [facility] RBC (Bld) [#/Vol] 4.79 10*6/uL 3.90 - 5.2 0 m/uL [facility] WBC (Bld) [#/Vol] 9.49 10*3/uL 3.70 - 11. 00 k/uL [facility] CK CREATINE KINASEon 023 CK [Catalytic activity/Vol] 115 U/L 42 - 196 U/L [facility] CK SerPl-cCncon 08-11-2022 CK [Catalytic activity/Vol] 115 U/L Normal 42-196 [facility] Comment on above: Order Comment: Lynni men Type: BLOOD SPECIMEN Ordering Facility: [facility] Address: [address] [place] [address] Performed By: #### 1 761-6 #### [facility] CLIA [id number] [address] [facility] [id number] [id number] [place] CNOVon 08-11-2022 CNOV Office Visit (RHEUAV ) LYNETTE HAIRSTON ([id number]) 1975 F Date Time Provider Department 08/11/22 [...] 6m Check following: -none MD Inocencia Lopez COMMUNITY EDUCATOR 08/11/2022 10:21 AM Signed Methylprednisolone injection verified. 80mg. Jud Hess COMMUNITY EDUCATOR 08/11/2022 11:22 AM Signed Patient given Depomedrol 80 mg IM in the lef (more content not included)... Normal [facility] CRP SerPl-mCncon 08-11-2022 CRP [Mass/Vol] 0.8 mg/dL Normal <0.9 [facility]ana Comment on above: Order Comment: Speci men Type: BLOOD SPECIMEN Ordering Facility: [facility] Address: [address] [place], [place] [address]Agatha RUCKER, [place] [address] Performed By: #### 2 4323-8, 1987-11 #### [facility] CLIA [id number] [address] [facility] [address] [place] Comprehensive metabolic 2000 panelon 08-11-2022 Albumin [Mass/Vol] 4.6 g/dL Normal 3.9-4.9 [facility] Comment on above: Order Comment: Speci men Type: BLOOD SPECIMEN Ordering Facility: [facility] Address: [address] Performed By: #### 2 4323-02, 1987-11 #### [facility] CLIA [id number] [address] [place] [address] [place] ALP [Catalytic activity/Vol] 44 U/L Normal 34-123 [facility] Comment on above: Order Comment: Speci men Type: BLOOD SPECIMEN Ordering Facility: [facility] Address: [address] Performed By: #### 2 4323-02, 1987-11 #### [facility] CLIA [id number] [address] [place] [address] [place] ALT [Catalytic activity/Vol] 32 U/L Normal 7-38 [facility] Comment on above: Order Comment: Speci men Type: BLOOD SPECIMEN Ordering Facility: [facility] Address: [address] Performed By: #### 2 4323-02, 1987-11 #### [facility] CLIA [id number] [address] [place] [address] [place] Anion gap [Moles/Vol] 9 mmol/L Normal 9-18 [facility] Comment on above: Order Comment: Speci men Type: BLOOD SPECIMEN Ordering Facility: [facility] Address: [address] [place] [address] Performed By: #### 2 4323-02, 1987-11 #### [facility] CLIA [id number] [address] [place] [address] [place] AST [Catalytic activity/Vol] 26 U/L Normal 13-35 [facility] Comment on above: Order Comment: Speci men Type: BLOOD SPECIMEN Ordering Facility: [facility] Address: [address] Performed By: #### 2 4323-02, 1987-11 #### [facility] CLIA [id number] [address] [place] [address] [place] Bilirubin [Mass/Vol] 0.9 mg/dL Normal 0.2-1.3 [facility] Comment on above: Order Comment: Speci men Type: BLOOD SPECIMEN Ordering Facility: [facility] Address: [address] [address] Performed By: #### 2 4323-02, 1987-11 #### [facility] CLIA [id number] [address] [place] [address] [place] Calcium [Mass/Vol] 10.5 mg/dL High 8.5-10.2 [facility] Comment on above: Order Comment: Speci men Type: BLOOD SPECIMEN Ordering Facility: [facility] Address: [address] [place] [address] Performed By: #### 2 4323-02, 1987-11 #### [facility] IA [id number] [address] [place] [address] [place] Chloride [Moles/Vol] 102 mmol/L Normal 97-105 [facility] Comment on above: Order Comment: Speci men Type: BLOOD SPECIMEN Ordering Facility: [facility] Address: [address] [place] [address] Performed By: #### 2 4323-02, 1987-11 #### [facility] IA [id number] [address] [place] [address] [place] CO2 [Moles/Vol] 29 mmol/L Normal 22-30 [facility] ital Comment on above: Order Comment: Speci men Type: BLOOD SPECIMEN Ordering Facility: [facility] Address: [address] [place] [address] Performed By: #### 2 4323-02, 1987-11 #### [facility] IA [id number] [address] [place] [address] [place] Creatinine [Mass/Vol] 0.93 mg/dL Normal 0.58-0.96 [facility] Comment on above: Order Comment: Speci men Type: BLOOD SPECIMEN Ordering Facility: [facility] Address: [address] [phone] Performed By: #### 2 4323, 1987-11 #### [facility] CLIA [id number] [address] [address] [place] ESTIMATED GLOMERULAR FILTRATION RATE 76 mL/min/1.73m??? Normal >=60 [facility] Comment on above: Order Comment: Mert del valle Type: BLOOD SPECIMEN Ordering Facility: [facility] Address: [address] Result Comment: Flores mated Glomerular Filtration [...] Performed By: #### 2 [address], 1987-11 #### [facility] CLIA [id number] [address] [place] [address] [place] Glucose [Mass/Vol] 97 mg/dL Normal 74-99 [facility] Comment on above: Order Comment: Mert del valle Type: BLOOD SPECIMEN Ordering Facility: [facility] Address: [address] [place] [address] Result Comment: The [place] Diabetes Association (ADA) provides guidance for cutoff [...] Standards of Medical Care in Diabetes 2016, French Diabetes Association. Diabetes Care. 2016.39(Suppl 1). Performed By: #### 2 432[address], 1987-11 #### [facility] CLIA [id number] [address] [place] [address] [place] Potassium [Moles/Vol] 4.7 mmol/L Normal 3.7-5.1 [facility] Comment on above: Order Comment: Speci men Type: BLOOD SPECIMEN Ordering Facility: [facility] Address: [address] [address] Performed By: #### 2 43209-29, 1987-11 #### [facility] CLIA [id number] [address] [place] [address] [place] Protein [Mass/Vol] 7.6 g/dL Normal 6.3-8.0 [facility] Comment on above: Order Comment: Speci men Type: BLOOD SPECIMEN Ordering Facility: [facility] Address: [address] [place] [address] Performed By: #### 2 4323-02, 1987-11 #### [facility] IA [id number] [address] [place] [address] [place] Sodium [Moles/Vol] 140 mmol/L Normal 136-144 [facility] Comment on above: Order Comment: Speci men Type: BLOOD SPECIMEN Ordering Facility: [facility] Address: [address] [place] [address] Performed By: #### 2 4323-02, 1987-11 #### [facility] IA [id number] [address] [place] [address] [place] Urea nitrogen [Mass/Vol] 15 mg/dL Normal 7-21 [facility] Comment on above: Order Comment: Speci men Type: BLOOD SPECIMEN Ordering Facility: [facility] Address: [address] Performed By: #### 2 4323-02, 1987-11 #### [facility] IA [id number] [address] [place] [address] [place] Albumin [Mass/Vol] 4.6 g/dL 3.9 - 4.9 g/dL [facility] ALP [Catalytic activity/Vol] 44 U/L 34 - 123 U/L [facility] ALT [Catalytic activity/Vol] 32 U/L 7 - 38 U/L [facility] Anion gap [Moles/Vol] 9 mmol/L 9 - 18 mmol/L [facility] AST [Catalytic activity/Vol] 26 U/L 13 - 35 U/L [facility] Bilirubin [Mass/Vol] 0.9 mg/dL 0.2 - 1.3 mg/dL [facility] Calcium [Mass/Vol] 10.5 mg/dL High 8.5 - 10. 2 mg/dL [facility] Chloride [Moles/Vol] 102 mmol/L 97 - 105 mmol/L [facility] CO2 [Moles/Vol] 29 mmol/L 22 - 30 mmol/L [facility] Creatinine [Mass/Vol] 0.93 mg/dL 0.58 - 0.96 mg/dL [facility] Estimated Glomerular Filtration Rate 76 mL/min/1.73m >=60 mL/min/1.73m [facility] Glucose [Mass/Vol] 97 mg/dL 74 - 99 mg/dL [facility] Potassium [Moles/Vol] 4.7 mmol/L 3.7 - 5.1 mmol/L [facility] Protein [Mass/Vol] 7.6 g/dL 6.3 - 8.0 g/dL [facility] Sodium [Moles/Vol] 140 mmol/L 136 - 144 mmol/L [facility] Urea nitrogen [Mass/Vol] 15 mg/dL 7 - 21 mg/dL [facility] ESR Westergren method (Bld) [Velocity]on 08-11-2022 ESR (Bld) [Velocity] 23 mm/h High 0 - 20 mm/hr [facility] ESR (Bld) [Velocity] 23 mm/h High 0-20 [facility] Comment on above: Order Comment: Speci men Type: BLOOD SPECIMEN Ordering Facility: [facility] Address: [address] [place] [address] Performed By: #### 1 761-6 #### [facility] CLIA [id number] [address] [facility] DESK [id number] [place] [address] [place] XR elbow RT 2Von 07-30-2022 XR elbow RT 2V [facility] [address] [place] [address] XRay Report Signed Patient: Lynette Hairston MR#: [id number] 46 : 1975 Acct:[id number] Age/Sex: 47 / F ADM Date: 07/30/22 Loc: [facility] [place] Room: Type: [facility] Attending Dr: Jud Monson NP-C Copies to: [...] Martines Jr., D.O.07/30/2022 12:09 PM Dictation Location: [place] [address] Transcribed By: [facility] 07/30/22 1209 Dictated By: Jeremie Martines Jr, DO 07/30/22 1209 Signed By: 07/30/22 1209 [facility] Orders Onlyon 07-15-2022 Orders Only [id number] Minh Hairston Deshaun 1975 F Date Provider Department Center 07/15/2022 CRISTHIAN MARIE MP GI Medical Pavi No family history on file Normal [facility] Orders Onlyon 07-09-2022 Orders Only [id number] HairstonMinh destiny Meade 1975 F Date Provider Department Center 07/09/2022 CRISTHIAN MARIE MP GI Medical Pavi No family history on file Normal [facility] Orders Onlyon 06-28-2022 Orders Only [id number] Minh Hairston Deshaun 1975 F Date Provider Department Center 06/28/2022 CRISTHIAN MARIE MP GI Medical Pavi No family history on file [facility] 36on 06-24-2022 36 Pt calling wanting t o know what the next steps are now that her labs and stools are back. She will be having mychart set up for your response to her. [facility] Orders Onlyon 06-16-2022 Orders Only [id number] HairstonMinh 1975 Provider Department [place] 06/16/2022 CRISTHIAN MARIE MP Medical Pavi No family history on file [facility] Orders Onlyon 06-07-2022 Orders Only [id number] Minh Hairston 1975 Date Provider Department Center 06/07/2022 CRISTHIAN MARIE MP Medical Pavi No family history on file [facility] 36on 05-31-2022 36 Patient called with concerns over her platelets. Patient states that she had labs drawn recently outside of [facility] and her platelets were at 96. Patient is concerned regarding this and is inquiring if there is anything she should do. I explained to the patient that we do not have these results in the system for her, however, she is going to call and have them faxed to us so you can review them. Please advise. [facility] 37on 05-26-2022 37 Take fiber supplemen ts along with plenty of water. Supplements include: Psyllium (sample brand name: Metamucil) Methylcellulose (sample brand name: Citrucel) Calcium polycarbophil (sample brand name: FiberCon) Wheat dextrin (sample brand name: Benefiber) Start slow with ??? Tablespoon every other day, then gradually increase to 1-2 tablespoons/day. [facility] [facility] Office Visiton 05-26-2022 Follow-up visit [id number] Minh Hairston 1975 Provider Department Center 05/26/2022 CRISTHIAN MARIE MP Medical [facility] No family history on file Level of Service:50695 SC OFFICE/OUTPATIENT ESTABLISHED MOD MDM 30-39 MIN Reason for Visit and Comments: Diarrhea [35] Follow-up [281872] - Patient states she has randomly lost control of her bowels in the recent weeks. [facility] XR CERVICAL SPINE (2-3 VIEWS )on [...] Boubacar Louis MD 02/07/21 Final result Normal [facility] XR CERVICAL SPINE (2-3 VIEWS )Ordered By: Garfield Restrepo on 02-07-2021 No acute osseous abnormality. [employer] Phone: EXAMINATION: XRAY VIEWS OF THE CERVICAL SPINE 02/07/2021 12:33 pm COMPARISON: None. HISTORY: ORDERING SYSTEM PROVIDED HISTORY: right arm pain TECHNOLOGIST PROVIDED HISTORY: right arm pain Reason for Exam: RUE pain Acuity: Chronic Type of Exam: Initial FINDINGS: Vertebral body height and alignment are maintained. There are minimal degenerative changes. There is no evidence of fracture or malalignment. [employer] Phone: Rashid, pn Incoming Radiant Results From [employer] - 02/07/2021 1:12 PM EDT EXAMINATION: XRAY [...] or malalignment. IMPRESSION: No acute osseous abnormality. [employer] Phone: [employer] Phone: Basic Metab w/rfx MGon 01-19 (cont.) Normal [facility] Comment on above: Result Comment: Aver age GFR for 40-49 years old: 99 mL/min/1.73sq m Chronic Kidney Disease: <60 mL/min/1.73sq m Kidney failure: <15 mL/min/1.73sq m eGFR calculated using average adult body mass. Additional eGFR calculator available at: [email or web address] Performed By: #### C DP, BMPX #### [place] [address] Hand Drawer In Helper: Brady Chan MD Anion gap [Moles/Vol] 8 mmol/L Low 9-17 [facility] Comment on above: Performed By: #### C DP, BMPX #### [place] [address] Hand Drawer In Helper: Brady Chan MD Calcium [Mass/Vol] 9.4 mg/dL Normal 8.6-10.4 [facility] Comment on above: Performed By: #### C DP, BMPX #### [place] [address] Hand Drawer In Helper: Brady Chan MD Chloride [Moles/Vol] 103 mmol/L Normal 98-107 [facility] Comment on above: Performed By: #### C DP, BMPX #### [place] [address] Hand Drawer In Helper: Brady Chan MD CO2 [Moles/Vol] 27 mmol/L Normal 20-31 [facility] Comment on above: Performed By: #### C DP, BMPX #### [place] [address] Hand Drawer In Helper: Brady Chan MD Creatinine [Mass/Vol] 0.73 mg/dL Normal 0.50-0.90 [facility] Comment on above: Performed By: #### C DP, BMPX #### [place] [address] Hand Drawer In Helper: Brady Chan MD GFR, Amer >60 Normal >60 [facility] Comment on above: Performed By: #### C DP, BMPX #### [address] [address] Hand Drawer In Helper: Brady Chan MD GFR,non Amer >60 Normal >60 [facility] Comment on above: Performed By: #### C DP, BMPX #### [address] [address] Hand Drawer In Helper: Brady Chan MD Glucose [Mass/Vol] 107 mg/dL High 70-99 [facility] Comment on above: Performed By: #### C DP, BMPX #### [address] [address] Hand Drawer In Helper: Brady Chan MD Potassium [Moles/Vol] 3.8 mmol/L Normal 3.7-5.3 [facility] Comment on above: Performed By: #### C DP, BMPX #### [address] [address] Hand Drawer In Helper: Brady Chan MD Sodium [Moles/Vol] 138 mmol/L Normal 135-144 [facility] Comment on above: Performed By: #### C DP, BMPX #### [address] [address] Hand Drawer In Helper: Brady Chan MD Urea nitrogen [Mass/Vol] 11 mg/dL Normal 6-20 [facility] Comment on above: Performed By: #### C DP, BMPX #### [address] [address] Hand Drawer In Helper: Brady Chan MD BUN/CRE Ratio NOT REPORTED Normal 9-20 [facility] Comment on above: Performed By: #### C DP, BMPX #### [place] [address] Hand Drawer In Helper: Brady Chan MD Staging: NOT REPORTED Normal [facility] Comment on above: Performed By: #### C DP, BMPX #### [place] [address] Hand Drawer In Helper: Brady Chan MD CBC with Diffon 01-19-2021 Abs. Basophil 0.10 k/uL Normal 0.0-0.2 [facility] Comment on above: Performed By: #### C DP, BMPX #### [place] [address] Hand Drawer In Helper: Brady Chan MD Abs.Neutrophil (Seg) 4.30 k/uL Normal 1.8-7.7 [facility] Comment on above: Performed By: #### C DP, BMPX #### [place] [address] Hand Drawer In Helper: Brady Chan MD Basophils/100 WBC (Bld) 1 % Normal 0-2 [facility] Comment on above: Performed By: #### C DP, BMPX #### [place] [address] Hand Drawer In Helper: Brady Chan MD Eosinophils (Bld) [#/Vol] 0.10 10*3/uL Normal 0.0-0.4 [facility] Comment on above: Performed By: #### C DP, BMPX #### [place] [address] Hand Drawer In Helper: Brady Chan MD Eosinophils/100 WBC (Bld) 2 % Normal 1-4 [facility] Comment on above: Performed By: #### C DP, BMPX #### [place] [address] Hand Drawer In Helper: Brady Chan MD Erythrocyte distribution width (RBC) [Ratio] 13.0 % Normal 12.5-15.4 [facility] Comment on above: Performed By: #### C DP, BMPX #### [place] [address] Hand Drawer In Helper: Brady Chan MD Hematocrit (Bld) [Volume fraction] 41.3 % Normal 36-46 [facility] Comment on above: Performed By: #### C DP, BMPX #### [place] [address] Hand Drawer In Helper: Brady Chan MD Hemoglobin (Bld) [Mass/Vol] 14.1 g/dL Normal 12.0-16.0 [facility] Comment on above: Performed By: #### C DP, BMPX #### [place] [address] Hand Drawer In Helper: Brady Chan MD Lymphocytes (Bld) [#/Vol] 3.10 10*3/uL Normal 1.0-4.8 [facility] Comment on above: Performed By: #### C DP, BMPX #### [place] [address] Hand Drawer In Helper: Brady Chan MD Lymphocytes/100 WBC (Bld) 37 % Normal 24-44 [facility] Comment on above: Performed By: #### C DP, BMPX #### [address] [place] [address] Hand Drawer In Helper: Brady Chan MD MCH (RBC) [Entitic mass] 31.2 pg Normal 26-34 [facility] Comment on above: Performed By: #### C DP, BMPX #### [place] [address] Hand Drawer In Helper: Brady Chan MD MCHC (RBC) [Mass/Vol] 34.2 g/dL Normal 31-37 [facility] Comment on above: Performed By: #### C DP, BMPX #### [place] [address] Hand Drawer In Helper: Brady Chan MD MCV (RBC) [Entitic vol] 91.1 fL Normal 80-100 [facility] Comment on above: Performed By: #### C DP, BMPX #### [place] [address] Hand Drawer In Helper: Brady Chan MD Monocytes (Bld) [#/Vol] 0.70 10*3/uL Normal 0.1-1.2 [facility] Comment on above: Performed By: #### C DP, BMPX #### [place] [address] Hand Drawer In Helper: Brady Chan MD Monocytes/100 WBC (Bld) 8 % Normal 2-11 [facility] Comment on above: Performed By: #### C DP, BMPX #### [place] [address] Hand Drawer In Helper: Brady Chan MD Neutrophil (Seg) 52 % Normal 36-66 [facility] Comment on above: Performed By: #### C DP, BMPX #### [place] [address] Hand Drawer In Helper: Brady Chan MD Platelet mean volume (Bld) [Entitic vol] 8.4 fL Normal 6.0-12.0 [facility] Comment on above: Performed By: #### C DP, BMPX #### [place] [address] Hand Drawer In Helper: Brady Chan MD Platelets (Bld) [#/Vol] 199 10*3/uL Normal 140-450 [facility] Comment on above: Performed By: #### C DP, BMPX #### [place] [address] Hand Drawer In Helper: Brady Chan MD RBC (Bld) [#/Vol] 4.54 10*6/uL Normal 4.0-5.2 [facility] Comment on above: Performed By: #### C DP, BMPX #### [place] [address] Hand Drawer In Helper: Brady Chan MD WBC (Bld) [#/Vol] 8.2 10*3/uL Normal 3.5-11.0 [facility] Comment on above: Performed By: #### C DP, BMPX #### [place] [address] Hand Drawer In Helper: Brady Chan MD Abs.Imm.Granulocyte NOT REPORTED Normal 0.00-0.30 [facility] Comment on above: Performed By: #### C DP, BMPX #### [place] [address] Hand Drawer In Helper: Brady Chan MD Auto Diff Performed NOT REPORTED Normal [facility] Comment on above: Performed By: #### C DP, BMPX #### [facility] [address] [place] [address] Hand Drawer In Helper: Brady Chan MD Immature Granulocyte NOT REPORTED Normal 0 [facility] Comment on above: Performed By: #### C DP, BMPX #### [place] [address] Hand Drawer In Helper: Brady Chan MD NRBC Automated NOT REPORTED Normal [facility] Comment on above: Performed By: #### C DP, BMPX #### [place] [address] Hand Drawer In Helper: Brady Chan MD Platelet Estimate NOT REPORTED Normal [facility] Comment on above: Performed By: #### C DP, BMPX #### [place] [address] Hand Drawer In Helper: Brady Chan MD RBC morphology finding Nom (Bld) NOT REPORTED Normal [facility] Comment on above: Performed By: #### C DP, BMPX #### [place] [address] Hand Drawer In Helper: Brady Chan MD WBC Morphology NOT REPORTED Normal [facility] Comment on above: Performed By: #### C DP, BMPX #### [place] [address] Hand Drawer In Helper: Brady Chan MD US DUP LOWER EXTREMITY [...] Gold Honeycutt MD 01/19/21 Final result Normal [facility] ABDOMEN 1VWon 08-08-2020 ABDOMEN 1VW [facility] Department of Radiology [address] [place] [address] ======== Patient Name: LYNETTE PRINCE : 1975 Sex: F Age: Race: NA Pt. Location: 260 Patient Status: O Ordered Date: 08/08/2020 10:50:00 AM Completed Date: 08/08/2020 10:47 AM Requesting Provider: CRISTHIAN FALCON Attending Provider: CRISTHIAN FALCON Report Copy To: Signs & Symptoms: K59.00 Constipation, unspecified I10 History: [place] Comments: please evaluate for fecal over load [...] projections. Electronically signed: Brady Shen. Transcribed by: [email or web address], User Resident: Electronically Signed by: BRADY SHEN @ 08/08/2020 03:15 PM Normal [facility] Comment on above: Order Comment: pleas e evaluate for fecal over load AFP TUMOR MARKER [id number] AFP TUMOR MARKER 2 ng/mL Normal 0-9 [facility] Comment on above: Result Comment: INTE RPRETIVE [...] reference intervals for this test in the [facility] Test Directory ([employer]). Performed By: [facility] [address] [place] [address] Marble Coper: Radha Horton MD ANAon 08-08-2020 Nuclear Ab IF (S) [Titer] <1:40 Normal <1:40,1:40 [facility] Comment on above: Performed By: #### 1 6076, 97795 #### [facility] [address] [place] [address], [facility] BASIC METABOLIC PANELon 07-25 Calcium [Mass/Vol] 9.3 mg/dL Normal 8.6-10.3 [facility] Comment on above: Performed By: #### 9 9908, 38374 #### [facility] [address] [place] [address], [place] Chloride [Moles/Vol] 104 mmol/L Normal 98-107 [facility] Comment on above: Performed By: #### 9 9908, 39646 #### [facility] [address] [place] [address], [place] CO2 [Moles/Vol] 25 mmol/L Normal 21-31 [facility] Comment on above: Performed By: #### 9 9908, 80416 #### [facility] [address] [place] [address], [place] Creatinine [Mass/Vol] 0.93 mg/dL Normal 0.60-1.20 [facility] Comment on above: Performed By: #### 9 9908, 24556 #### [facility] [address] [place] [address], [place] GFR/1.73 sq M predicted among blacks MDRD (S/P/Bld) [Vol rate/Area] mL/min/{1.73_m2} Normal >60 [facility] Comment on above: Performed By: #### 9 9908, 01509 #### [facility] [address] [place] [address], [place] GFR/1.73 sq M predicted among non-blacks MDRD (S/P/Bld) [Vol rate/Area] mL/min/{1.73_m2} Normal >60 [facility] Comment on above: Performed By: #### 9 9908, 18051 #### [facility] [address] [place] [address], [place] Glucose [Mass/Vol] 97 mg/dL Normal 70-100 [facility] Comment on above: Performed By: #### 9 9908, 61598 #### [facility] [address] [place] [address], [facility] Potassium [Moles/Vol] 3.9 mmol/L Normal 3.5-5.1 [facility] Comment on above: Performed By: #### 9 9909, 65630 #### [facility] [address] [place] [id number], [facility] Sodium [Moles/Vol] 137 mmol/L Normal 136-145 [facility] Comment on above: Performed By: #### 9 99, 66880 #### [facility] [address] [facility]. [address] Urea nitrogen [Mass/Vol] 15 mg/dL Normal 7-25 [facility] Comment on above: Performed By: #### 9 9909, 50765 #### [facility] [address] [facility]. [address] CBC W/DIFFon 08-08-2020 ABS BASOPHILS 0.1 10*3/uL Normal 0.0-0.[address] [facility] Comment on above: Performed By: #### 5 0103 #### [facility] [address] [facility] ABS IMM GRANS 0.0 10*3/uL Normal 0.0-0.[address] [facility] Comment on above: Performed By: #### 5 0103 #### [facility] [address] [facility] ABS NEUTROPHILS 4.4 10*3/uL Normal 1.6-7.6 The [facility] Comment on above: Performed By: #### 5 0103 #### [facility] [address] [facility] [address], [facility] Basophils/100 WBC (Bld) 0.9 % Normal 0.0-1.0 [facility] Comment on above: Performed By: #### 5 0103 #### [facility] [address] Eosinophils (Bld) [#/Vol] 0.1 10*3/uL Normal 0.0-0.5 [facility] Comment on above: Performed By: #### 5 0103 #### [facility] [address] [facility] [address], [facility] Eosinophils/100 WBC (Bld) 1.1 % Normal 0.0-6.0 [facility] Comment on above: Performed By: #### 5 0103 #### [facility] [address] Erythrocyte distribution width (RBC) [Ratio] 13.0 % Normal 11.5-15.0 [facility] Comment on above: Performed By: #### 5 102 #### [facility] [address] [facility]. [address] Hematocrit (Bld) [Volume fraction] 42.8 % Normal 36.0-45.0 [facility] Comment on above: Performed By: #### 5 3 #### [facility] [address] Hemoglobin (Bld) [Mass/Vol] 14.7 g/dL Normal 12.0-15.0 [facility] Comment on above: Performed By: #### 5 0103 #### [facility] [address] [facility]. [address] IMMATURE GRANS 0.3 % Normal 0.0-1.0 [facility] Comment on above: Performed By: #### 5 3 #### [facility] [address] [place] [address], [facility] Lymphocytes (Bld) [#/Vol] 2.2 10*3/uL Normal 1.2-4.0 [facility] Comment on above: Performed By: #### 5 3 #### [facility] [address] [address], [facility] Lymphocytes/100 WBC (Bld) 30.0 % Normal 20.0-45.0 [facility] Comment on above: Performed By: #### 5 0103 #### [facility] [address] [facility] [place] [address], [facility] MCH (RBC) [Entitic mass] 31.4 pg Normal 27.0-33.0 [facility] Comment on above: Performed By: #### 5 0103 #### [facility] [address] [facility] [place] [address], [facility] MCHC (RBC) [Mass/Vol] 34.3 g/dL Normal 32.0-35.0 [facility] Comment on above: Performed By: #### 3 #### [facility] [address] [facility] [place] [address], [facility] MCV (RBC) [Entitic vol] 91.5 fL Normal 82.0-98.0 [facility] Comment on above: Performed By: #### 5 3 #### [facility] [address] [place] [address], [facility] Monocytes (Bld) [#/Vol] 0.6 10*3/uL Normal 0.1-1.0 [facility] Comment on above: Performed By: #### 5 0103 #### [facility] [address] [facility] [address], [facility] MONOS 8.6 % Normal 5.0-12.0 [facility] Comment on above: Performed By: #### 5 3 #### [facility] [address] [place] [address], [facility] Neutrophils/100 WBC (Bld) 59.1 % Normal 40.0-72.0 [facility] Comment on above: Performed By: #### 5 3 #### [facility] [address] Nucleated RBC/100 WBC (Bld) [Ratio] 0 % Normal 0-0 [facility] Comment on above: Performed By: #### 5 0103 #### [facility] [address] PLAT CNT 163 10*3/uL Normal 150-400 The [facility] Comment on above: Performed By: #### 5 0103 #### [facility] [address] RBC (Bld) [#/Vol] 4.68 10*6/uL Normal 3.80-5.00 The [facility] Comment on above: Performed By: #### 5 0103 #### [facility] [address] WBC (Bld) [#/Vol] 7.44 10*3/uL Normal 4.00-10.60 [facility] Comment on above: Performed By: #### 5 0103 #### [facility] [address] HEPATITIS A ANTIBODY IGMon 0 08-08-2020 HEP A AB IGM NONREACTIVE Normal NONREACTIVE The [facility] Comment on above: Performed By: #### 3 1422, 43663, 59700, 52254 #### [facility] [address] HEPATITIS B CORE ANTIBODYon 08-08-2020 HEP B CORE AB NONREACTIVE Normal NONREACTIVE [facility] Comment on above: Performed By: #### 3 1422, 32316, 74716, 15647 #### [facility] [address] HEPATITIS B SURFACE ANTIGEN QUALon 08-08-2020 HEP B SURF AG QUAL NONREACTIVE Normal NONREACTIVE [facility] Comment on above: Performed By: #### 3 1422, 50963, 92398, 54992 #### [facility] [address] [place] [address], [place] HEPATITIS C ANTIBODYon 08-08 ANTI-HCV NONREACTIVE Normal NONREACTIVE [facility] Comment on above: Performed By: #### 3 1422, 92141, 67940, 08986 #### [facility] [address] [place] [address], [place] LIVER BATTERYon 08-08-2020 Albumin [Mass/Vol] 4.5 g/dL Normal 3.5-5.7 [facility] Comment on above: Performed By: #### 9 9909, 92915 #### [facility] [address] [place] [address], [place] ALKALINE PHOSPH 37 IU/L Normal 34-104 [facility] Comment on above: Performed By: #### 9 99, 13351 #### [facility] [address] [place] [address], [place] ALT [Catalytic activity/Vol] 56 U/L High 7-52 [facility] Comment on above: Performed By: #### 9 99, 71715 #### [facility] [address] [place] [address], [place] AST [Catalytic activity/Vol] 38 U/L Normal 13-39 [facility] Comment on above: Performed By: #### 9 9908, 80893 #### [facility] [address] [place] [address], [place] Bilirubin [Mass/Vol] 1.1 mg/dL High 0.3-1.0 [facility] Comment on above: Performed By: #### 9 99, 86702 #### [facility] [address] [place] [address], [place] Bilirubin.direct [Mass/Vol] 0.2 mg/dL Normal 0.0-0.2 [facility] Comment on above: Performed By: #### 9 9909, 03047 #### [facility] [address] Protein [Mass/Vol] 7.5 g/dL Normal 6.0-8.3 [facility] Comment on above: Performed By: #### 9 9909, 12592 #### [facility] [address] LIVER FIBROSIS CHRONIC VIRAL [id number] 08-08-2020 [id number] IN,FIBROMETER 259 mg/dL Normal 131-293 [facility] ALT [Catalytic activity/Vol] 69 U/L High 5-40 [facility] Amylase [Catalytic activity/Vol] 131 U/L High 7-33 [facility] AST [Catalytic activity/Vol] 54 U/L High 9-40 [facility] Comment on above: Result Comment: This specimen is Hemolyzed. This may cause the results to be falsely increased. CIRRHOMETER PATIENT SCORE 0.12 Normal [facility] EER FIBROMETER REPORT See Note Normal [facility] Comment on above: Result Comment: Accamol blair [facility] Enhanced Report using the link below: -Direct access: [email or web address] FIBROMETER INTERPRETATION See Report Normal [facility] Comment on above: Result Comment: INTE RPRETIVE INFORMATION: Fibrometer Interpretation Calculations for the final report are based on accurate data for age, gender, and platelet count. If any of this information needs to be corrected, please contact [facility] Client Services to request a recalculation. Client Services may be contacted at . The [employer] FibroMeter profile serves as a surrogate marker [...] developed and its performance characteristics determined by [facility]. It has not been cleared or approved by the [place] Food and Drug Administration. This test was performed in a CLIA certified laboratory and is intended for clinical purposes. [13] [17] Performed By: [facility] [address] [place] [address] Marble Coper: Radha Horton MD FIBROMETER PLATELET CT 163 k/uL Normal [facility] FIBROMETER PLATELET IND 81 % Low 90-120 [facility] FIBROMETER PLATELET SCORE 0.62 Normal [facility] FIBROSIS METAVIR CLASSIFICATION F2[F1-F3] Normal [facility] Comment on above: Result Comment: INTE [...] possible INFLAMETER METAVIR CLASSIFICATION A1/A2 Normal [facility] Comment on above: Result Comment: INTE RPRETIVE INFORMATION: InflaMeter Metavir Classification InflaMeter (activity score) comments A0/A1 Equal probability between A0 and A1 A1/A2 Equal probability between A1 and A2 A2/A3 Equal probability between A2 and A3 INFLAMETER PATIENT SCORE 0.61 Normal [facility] Urea nitrogen [Mass/Vol] 14 mg/dL Normal 7-20 [facility] MITOCHONDRIAL ABon 1 MITOCHONDRIAL AB SEE [place]UP RESULT Abnormal NONE DETECTED [facility] Comment on above: Result Comment: NONE DETECTED LESS THAN 1:20 INTERMEDIATE LEVEL 1:20 - 1:80 (MAY BE PRESENT IN AUTOALLERGIC LIVER DISEASE) ELEVATED LEVEL GREATER THAN OR EQUAL TO 1:160 (STRONGLY SUGGESTIVE OF PRIMARY BILIARY CIRRHOSIS) Performed By: #### 1 0196, 61684 #### [facility] [address] MITOCHONDRIAL M2 ANTIBODY, [place] [id number] 08-08-2020 MITOCHONDRIAL M2 ANTIBODY IGG 2.1 Units Normal 0.0-24.9 [facility] Comment on above: Result Comment: REFE RENCE [...] does not rule out PBC. Performed By: [facility] [address] [place] [address] Marble Coper: Radha Horton MD PROTHROMBIN TIMEon 1 INR Coag (PPP) [Relative time] 1.05 {INR} Normal 0.91-1.16 [facility] Comment on above: Result Comment: ACCC [...] CHEST 1995;108:231S-246S. Performed By: #### 1 0196, 85177 #### [facility] [address] [facility]. [address] PT Coag (PPP) [Time] 13.7 s Normal 12.3-14.8 [facility] Comment on above: Result Comment: ALL RESULTS MUST BE INTERPRETED WITH RESPECT TO BLOOD DRAWING ARTIFACT OR DILUTION ERROR OF ANTICOAGULANT AT THE TIME OF SAMPLING. Performed By: #### 1 0196, 67881 #### [facility] [address] [place] [address], [facility] XR FOOT LEFT (MIN 3 VIEWS)on 04-24-2019 No acute osseous abnormality in the left foot. [facility]: THREE XRAY VIEWS OF THE LEFT [...] are preserved. No bony erosion. [facility] Rashid, pn Incoming Radiant Results From [employer] [employer] - 04/24/2019 5:49 PM EDT EXAMINATION: THREE [...] abnormality in the left foot. [facility], [place] Large Joint Arthro/Inj: bila teral greater trochanteric bursa injection [facility] Vital Signs Date Time Vital Sign Value Performing Clinician Faci lity 09-02-2023 11:36-0500 Body height 172.1 cm Michael Perkins MD Work Phone: [facility] 09-02-2023 11:36-0500 Body mass index (BMI) [Ratio] 38.6 kg/m2 Michael Perkins MD Work Phone: [facility] 09-02-2023 11:36-0500 Body weight 114.31 kg Michael Perkins MD Work Phone: [facility] 09-02-2023 11:36-0500 Diastolic blood pressure 90 mm[Hg] Michael Perkins MD Work Phone: [facility] 09-02-2023 11:36-0500 Heart rate 107 /min Michael Perkins MD Work Phone: [facility] 09-02-2023 11:36-0500 SaO2% (BldA) [Mass fraction] 94 % Michael Perkins MD Work Phone: [facility] 09-02-2023 11:36-0500 Systolic blood pressure 128 mm[Hg] Michael Perkins MD Work Phone: [facility] 08-05-2023 11:00-0500 Body height 167 cm Cody HURLEY Work Phone: [facility] 08-05-2023 11:00-0500 Body mass index (BMI) [Ratio] 39.39 kg/m2 Cody Hutchins INVOICING MACHINE OPERATOR-CHAIR INSPECTOR Work Phone: [employer] 08-05-2023 11:00-0500 Body weight 109.86 kg Cody Hutchins INVOICING MACHINE OPERATOR-CHAIR INSPECTOR [facility] 08-05-2023 11:00-0500 Diastolic blood pressure 88 mm[Hg] Cody Hutchins INVOICING MACHINE OPERATOR-CHAIR INSPECTOR [facility] 08-05-2023 11:00-0500 Heart rate 88 /min Cody Hutchins INVOICING MACHINE OPERATOR-CHAIR INSPECTOR [facility] 08-05-2023 11:00-0500 Systolic blood pressure 130 mm[Hg] Cody Hutchins APRN-CHAIR INSPECTOR [facility] 07-13-2023 16:15-0500 Body height 167.64 cm Beba Rossi Other [employer] Other 07-13-2023 16:15-0500 Body mass index (BMI) [Ratio] 39.06 kg/m2 Beba Rossi Other [employer] Other 07-13-2023 16:15-0500 Body temperature 97.3 [degF] Beba Rossi Other [employer] Other 07-13-2023 16:15-0500 Body weight 109.77 kg Beba Farahmond Other [employer] Other 07-13-2023 16:15-0500 Diastolic blood pressure 80 mm[Hg] Beba Rossi Other [employer] Other 07-13-2023 16:15-0500 Respiratory rate 18 /min Beba Rossi Other [employer] Other 07-13-2023 16:15-0500 SaO2% (BldA) [Mass fraction] 98 % Beba Richey Other [employer] [facility] [employer] Other 07-13-2023 16:15-0500 Systolic blood pressure 120 mm[Hg] Beba Richey Other [facility] [employer] Other 06-24-2023 11:38-0500 Body height 167.6 cm Noemi Pham MD Work Phone: [facility] 06-24-2023 11:38-0500 Body weight 108.86 kg Noemi Pham MD Work Phone: [facility] 06-24-2023 11:38-0500 Diastolic blood pressure 77 mm[Hg] Noemi Pham MD Work Phone: [facility] 06-24-2023 11:38-0500 Heart rate 104 /min Noemi Pham MD Work Phone: [facility] 06-24-2023 11:38-0500 Respiratory rate 20 /min Noemi Pham MD Work Phone: [facility] 06-24-2023 11:38-0500 Systolic blood pressure 114 mm[Hg] Noemi Pham MD Work Phone: [facility] 08-11-2022 09:48-0500 Body weight 102.51 kg Noemi Pham MD Work Phone: [facility] 08-11-2022 09:48-0500 Diastolic blood pressure 73 mm[Hg] Noemi Pham MD Work Phone: [facility] 08-11-2022 09:48-0500 Heart rate 94 /min Noemi Pham MD Work Phone: [facility] 08-11-2022 09:48-0500 Systolic blood pressure 118 mm[Hg] Noemi Pham MD Work Phone: [facility] 02-07-2021 11:53-0400 Body mass index (BMI) [Ratio] 37.12 kg/m2 Garfield Restrepo MD [employer] Phone: 02-07-2021 11:53-0400 Body temperature 98.4 [degF] Garfield Restrepo MD [employer] Phone: 02-07-2021 11:53-0400 Body weight 104.33 kg Garfield Restrepo MD [employer] Phone: 02-07-2021 11:53-0400 Diastolic blood pressure 92 mm[Hg] Garfield Restrepo MD [employer] Phone: 02-07-2021 11:53-0400 Heart rate 108 /min Garfield Restrepo MD [employer] Phone: 02-07-2021 11:53-0400 Respiratory rate 16 /min Garfield Restrepo MD [employer] Phone: 02-07-2021 11:53-0400 SaO2% (BldA) [Mass fraction] 96 % Garfield Restrepo MD [employer] Phone: 02-07-2021 11:53-0400 Systolic blood pressure 122 mm[Hg] Garfield Restrepo MD [employer] Phone: 04-24-2019 15:30-0400 Pulse (Heart Rate) 104 /min [place] 04-24-2019 15:28-0400 BMI (Body Mass Index) 35.51 kg/m2 [facility] [place] 04-24-2019 15:28-0400 Body Temperature 98.4 [degF] [place], [place] 04-24-2019 15:28-0400 Body weight 99.79 kg [place] 04-24-2019 15:28-0400 BP Diastolic 81 mm[Hg] [place] 04-24-2019 15:28-0400 BP Systolic 116 mm[Hg] [place] 04-24-2019 15:28-0400 Height 167.6 cm [facility] 04-24-2019 15:28-0400 Pulse [facility]ximetry 95 % [facility] [place] 04-24-2019 15:28-0400 Respiratory Rate 15 /min [facility], [place] Encounters Encounter Date Encounter Type Care Provider Facility Start: 09-02-2023 End: 09-02-2023 ambulatory MICHAEL Amol PERKINS [facility] Start: 09-02-2023 End: 09-02-2023 Office outpatient visit 25 minutes Michael Perkins MD Work Phone: [facility] Comment on above: Primary hypertension (Primary Dx); Coronary artery vasospasm (CMS-HCC); Intermittent palpitations; Obstructive sleep apnea Start: 09-01-2023 Telephone encounter Mei Garcia CMA [facility] Comment on above: Appointment Start: 08-05-2023 End: 08-05-2023 ambulatory [facility] Start: 08-05-2023 End: 08-05-2023 Office outpatient visit 25 minutes [facility] INVOICING MACHINE OPERATOR-CHAIR INSPECTOR Work Phone: [facility] Comment on above: Status migrainosus ( Primary Dx); Migraine without aura and without status migrainosus, not intractable; Cervicalgia; Fibromyalgia; Paresthesias; Trapezius muscle spasm; Vertigo Start: 08-03-2023 Telephone encounter Gloria Box [facility] Start: 07-21-2023 End: 07-21-2023 ambulatory Betty Moreau Other [employer] Other Start: 07-21-2023 Telephone encounter Naz Andrew [facility] Comment on above: Headache Start: 07-13-2023 End: 07-13-2023 ambulatory Beba Richey Other [employer] Other Start: 07-13-2023 Office outpatient vi sit 15 minutes Beba Richey [facility] Start: 06-24-2023 End: 06-25-2023 ambulatory TOY OBRIEN [facility] Start: 06-24-2023 End: 06-24-2023 ambulatory TOY OBRIEN Facility:[facility] Start: 06-24-2023 End: 06-24-2023 Subsequent hospital visit by physician Mayte Arandaon Celeste Work Phone: [facility] General Comment on above: Pain in joint, multi ple sites [M25.50] Start: 06-24-2023 End: 06-24-2023 Patient encounter procedure Noemi Pham MD Work Phone: Rheumatology Comment on above: Pain in joint, multi ple sites (Primary Dx); Trochanteric bursitis of both hips Start: 05-27-2023 End: 05-27-2023 ambulatory Jud Monson Other [employer] Other Start: 05-27-2023 Office outpatient vi sit 25 minutes Jud Monson [facility] Start: 05-12-2023 Telephone encounter Noemi perez MD Work Phone: Rheumatology Comment on above: Medication Problem Start: 03-21-2023 End: 03-22-2023 ambulatory [facility] Start: 03-09-2023 Telephone encounter Noemi perez MD Work Phone: Rheumatology Start: 01-28-2023 Telephone encounter Noemi perez MD Work Phone: Rheumatology Comment on above: Orders Start: 01-26-2023 ambulatory Noemi Pham MD Work Phone: Rheumatology Comment on above: results of blood wor k Start: 01-26-2023 E-mail encounter fro m caregiver Noemi Pham MD Work Phone: MATILDA REIS [facility] Start: 01-14-2023 End: 01-15-2023 ambulatory TOY OBRIEN Facility:[facility] Start: 01-11-2023 Refill Noemi Pham MD Work Phone: Rheumatology Comment on above: Refill Request Start: 12-24-2022 End: 12-24-2022 ambulatory TOY OBRIEN Neurology Start: 12-24-2022 End: 12-24-2022 Patient encounter procedure Emg 3 Neur Main (Max Weight: 1000) Work Phone: [facility] Start: 12-17-2022 End: 12-17-2022 ambulatory LACHELLEALDAIR AMADORKEVONMABEL [facility] Start: 12-13-2022 End: 12-18-2022 ambulatory TOY OBRIEN [facility] Start: 12-01-2022 Telephone encounter Noemi perez [...] Refill Request Start: 09-08-2022 End: 09-08-2022 ambulatory [facility] Start: 09-08-2022 End: 09-08-2022 ambulatory [facility] Start: 08-11-2022 End: 08-12-2022 ambulatory NOEMI PHAM Facility:[facility] Start: 08-11-2022 End: 08-11-2022 Patient encounter procedure Noemi Pham MD Work Phone: Rheumatology Comment on above: Rheumatoid arthritis involving multiple sites, unspecified whether rheumatoid factor present (HCC) (Primary Dx) Start: 07-30-2022 End: 07-30-2022 ambulatory Jud Monson Facility:[facility] Start: 07-30-2022 End: 07-30-2022 ambulatory [employer] Jud Monson Work Phone: [facility] Work Phone: Start: 07-30-2022 End: 07-30-2022 Patient encounter procedure [employer] F[employer]-C Jud Monson Work Phone: [facility] Start: 06-04-2022 Telephone encounter Noemi perez MD Work Phone: Rheumatology Comment on above: Insurance Authorizat ion Start: 06-02-2022 ambulatory Noemi Pham MD Work Phone: Rheumatology Comment on above: Ankle pain Start: 05-29-2022 Refill Noemi Pham MD Work Phone: Rheumatology Comment on above: Refill Request Start: 05-26-2022 End: 05-26-2022 ambulatory [facility] Start: 05-17-2022 Telephone encounter Noemi perez MD Work Phone: [address] [place] [address] Comment on above: Patient Question Start: 12-29-2021 Telephone encounter Noemi perez MD Work Phone: Rheumatology Comment on above: Patient Request Start: 10-27-2021 ambulatory Noemi Pham MD Work Phone: Rheumatology Comment on above: Handicap plaquered Start: 07-22-2021 End: 07-25-2021 ambulatory BLANCA Rajiv [facility] Start: 07-03-2021 End: 07-06-2021 ambulatory BLANCA Rajiv [facility] Start: 02-07-2021 End: 02-07-2021 Emergency department patient visit TOY OBRIEN [facility] Start: 02-07-2021 End: 02-07-2021 Emergency department patient visit Garfield Restrepo MD [facility] ED Comment on above: Neuropathic pain (Pr imary Dx) Start: 01-19-2021 End: 01-19-2021 Emergency department patient visit TOY OBRIEN [facility] Start: 05-20-2020 End: 05-20-2020 Subsequent hospital visit by physician Zackary Garcia [facility] Comment on above: Canceled (Patient no show) Start: 05-16-2020 End: 05-16-2020 Subsequent hospital visit by physician Glory Ortiz [facility] Comment on above: Canceled (Patient) Start: 05-14-2020 End: 05-14-2020 Subsequent hospital visit by physician Sander Jauregui [facility] Start: 04-24-2019 End: 04-24-2019 Emergency department patient visit Gold Barrios Star Work Phone: [facility] ED Comment on above: Sprain [...] Start: 07-30-2022 Plain X-ray of right elbow [employer] Jud Monson Work Phone: Start: 07-24-2021 Lipid [...] - S blanca or Plasma Lipid Screening [facility] Start: 07-24-2026 LIPID SCREEN LIPID SCREEN [facility] Start: 06-24-2026 Diabetes Screening Diabetes Screenin [facility] Start: 11-08-2025 DIABETES SCREEN DIABETES SCREEN [facility] Start: 11-08-2025 Diabetes Screening Diabetes Screenin [facility] Start: 08-11-2025 DIABETES SCREEN DIABETES SCREEN [facility] Start: 09-02-2024 Adult BMI Screening Adult BMI Screen ing [facility] Start: 09-02-2024 Tobacco Screening Tobacco Screening [facility] Start: 08-05-2024 Adult BMI Screening Adult BMI Screen ing [facility] Start: 08-05-2024 Tobacco Screening Tobacco Screening [facility] Start: 05-13-2024 Glaucoma screening Diabetic Op hthalmology Exam [facility] Start: 05-13-2024 Tobacco Screening Tobacco Screening [facility] Start: 05-12-2024 Adult BMI Screening Adult BMI Screen ing [facility] Start: 12-18-2023 Colonoscopy COLONOSCOPY [facility] Start: 12-18-2023 COLORECTAL CANCER SCREENING COLORECTAL CANCER SCREENING [facility] Start: 10-28-2023 End: 10-28-2023 Patient encounter procedure 10/28/2023 9:00 AM EDT [facility] [address] [place] [address] Cody Hutchins, INVOICING MACHINE OPERATOR-CHAIR INSPECTOR [address] [place] [address] [facility] Start: 10-14-2023 End: 10-14-2023 Patient encounter procedure 10/14/2023 1:10 PM EDT Office Visit [facility] [address] [place] [address] Dallas Tobar MD [address] [place] [address] [facility] Start: 09-30-2023 End: 09-30-2023 Patient encounter procedure [facility] Start: 09-30-2023 End: 09-30-2023 ambulatory 09/30/2023 9:30 AM EST Ophthalmology Imaging [facility] [address] [place] [address] [facility] Start: 09-16-2023 End: 09-16-2023 Patient encounter procedure 09/16/2023 10:30 AM EST Office Visit [facility] [address] [place] [address] Dallas Tobar MD [address] [place] [address] [facility] Start: 09-06-2023 Depression Screening Depression Scre [facility] Start: 09-02-2023 End: 09-02-2023 Patient encounter procedure [facility] Start: 08-05-2023 End: 08-05-2023 Patient encounter procedure 08/05/2023 11:30 AM EST Office Visit [facility] [address] [place] [address] Cody Hutchins, INVOICING MACHINE OPERATOR-CHAIR INSPECTOR [address] [place] [address] [facility] Start: 05-16-2023 DIABETES SCREEN DIABETES SCREEN [facility] Start: 03-25-2023 Covid-19 Vaccine ( season) Covid-19 Vaccine () [facility] Start: 03-25-2023 Influenza vaccination C [facility] Start: 01-26-2023 End: 03-28-2023 Extractable nuclear Ab panel - Serum ANTI LEVY ID Lab Routine Rheumatoid arthritis involving multiple sites, unspecified whether rheumatoid factor present ([facility]) Expected: 01/26/2023, Expires: 03/28/2023 [facility] Work Phone: Comment on above: Expected: 01/26/2023 , Expires: 03/28/2023 Start: 10-27-2022 End: 12-27-2022 Aldolase [Enzymatic activity/volume] in Serum or Plasma ALDOLASE BLD Lab Routine Myalgia Expected: 10/27/2022, Expires: 12/27/2022 [facility] Work Phone: Comment on above: Expected: 10/27/2022 , Expires: 12/27/2022 Start: 10-27-2022 End: 12-27-2022 Creatine kinase [Enzymatic activity/volume] in Serum or Plasma CK CREATINE KINASE Lab Routine Myalgia Expected: 10/27/2022, Expires: 12/27/2022 [facility] Work Phone: Comment on above: Expected: 10/27/2022 , Expires: 12/27/2022 Start: 08-11-2022 End: 10-11-2022 Aldolase [Enzymatic activity/volume] in Serum or Plasma [facility] Work Phone: Comment on above: Expected: 08/11/2022 , Expires: 10/11/2022 Start: 07-25-2022 DEPRESSION ASSESSMENT DEPRESSION ASS ESSMENT [facility] Start: 03-25-2022 Influenza vaccination INFLUENZA (#1) [facility] Start: 03-19-2022 Adult depression screening assessment DEPRESSION SCREENING [facility] Start: 01-27-2022 DTaP,Tdap and Td Vaccines (2 - Td or Tdap) DTaP,Tdap and Td Vaccines (2 - Td or Tdap) [facility] Start: 01-27-2022 DTaP/Tdap/Td vaccine (2 - Td or Tdap) DTaP/Tdap/Td vaccine (2 - Td or Tdap) [employer] Phone: Start: 01-27-2022 DTaP/Tdap/Td vaccine (2 - Td) DTaP/Tdap/Td vaccine (2 - Td) [facility] [place] Start: 01-27-2022 Urine microalbumin profile DTaP,Tdap,Td Vaccine (2 - Td or Tdap) [facility] Start: 07-25-2021 DEPRESSION ASSESSMENT DEPRESSION ASS ESSMENT [facility] Start: 03-25-2021 Influenza vaccination Flu vaccine (# 1) [employer] Phone: Start: 01-12-2021 COVID-19 VACCINE (3 - Booster for Pfizer series) COVID-19 VACCINE (3 - Booster for Pfizer series) [facility] Start: 01-12-2021 COVID-19 VACCINE (3 - Pfizer series) COVID-19 VACCINE (3 - Pfizer series) [facility] Start: 12-15-2020 COVID-19 VACCINE (3 - Pfizer risk 4-dose series) COVID-19 VACCINE (3 - Pfizer risk 4-dose series) [facility] Start: 12-15-2020 COVID-19 VACCINE (3 - Pfizer risk series) COVID-19 VACCINE (3 - Pfizer risk series) [facility] Start: 2020 COLOGUARD (FIT-DNA) COLOGUARD (FIT-D NA) [facility] Start: 2020 Colonoscopy COLONOSCOPY [facility] Start: 2020 COLORECTAL CANCER SCREENING COLORECTAL CANCER SCREENING [facility] Start: [address] COLONOGRAPHY [facility] Start: 2020 FECAL OCCULT BLOOD FECAL OCCULT BLOO D [facility] Start: 2020 Screening for malign ant neoplasm of colon Colon cancer screen colonoscopy [employer] Phone: Start: 2020 SIGMOIDOSCOPY SIGMOIDOSCOPY [facility] Start: 05-29-2020 End: 05-29-2020 Appointment 05/29/2020 Appointment Physical Therapy Jeremie Barnett PTA [facility] Start: 05-28-2020 End: 05-28-2020 Appointment 05/28/2020 Appointment Physical Therapy Jeremie Barnett PTA [facility] Start: 05-23-2020 End: 05-23-2020 Appointment 05/23/2020 Appointment Physical Therapy Glory Ortiz DINKEY OPERATOR SLATE [facility] Start: 05-20-2020 End: 05-20-2020 Appointment [facility] Start: 05-16-2020 End: 05-16-2020 Appointment 05/16/2020 Appointment Physical Therapy Glory Ortiz DINKEY OPERATOR SLATE [facility] Start: 03-25-2020 Influenza vaccination Flu vaccine (# 1) [place], [place] Start: 03-25-2019 Influenza vaccination Flu vaccine (# 1) [place] Start: 2015 Diabetes screen Diabetes screen [facility] [employer] Work Phone: Start: 2015 Lipid panel Lipid screen [place], [place] Start: 2015 Lipid screen Lipid screen [place], [place] Start: 2015 Mammography [facility] Start: 2005 HPV TESTING HPV TESTING [facility] Start: 1996 Cervical cancer screen Cervical canc er screen [place], [place] Start: 1996 PAP TESTING PAP TESTING [facility] Start: 1996 Screening for malign ant neoplasm of cervix Cervical cancer screen [place], [place] Start: 1994 SHINGRIX VACCINE (1 of 2) SHINGRIX VACCINE (1 of 2) [facility] Start: 1994 Urine microalbumin profile [facility] Start: 1993 Adult BMI Follow Up Plan Adult BMI Follow Up Plan [facility] Start: 1993 Diabetic foot examination Diabetic Foot Exam [facility] Start: 1993 HIV SCREENING HIV SCREENING [facility] Start: 1990 HIV screen HIV screen [facility] [place], [place] Start: 1990 HIV screening HIV screen Eboni Connolly [place], [place] Start: 1981 PNEUMOCOCCAL (1 - PCV) PNEUMOCOCCAL (1 - PCV) [facility] Start: 1981 Pneumococcal vaccination Pneum ococcal Vaccine (1 - PCV) [facility] Start: 1975 Hepatitis C screening Hepatitis C [facility] Work Phone: End: 11-24-2023 EMG(NEURO/NI) EMG(NEURO/NI) EMG Routine Fatigue, unspecified type Elevated aldolase level Generalized weakness 1 Occurrences starting 11/23/2022 until 11/24/2023 [facility] Work Phone: Comment on above: 1 Occurrences starti ng 11/23/2022 until 11/24/2023 [facility] Immunizations Immunization Date Immunization Notes Care Provider Julio carlin 04-23-2021 influenza virus vacc ine, unspecified formulation Noemi Pham MD Work Phone: [facility] Payers Date Payer Category Payer Self-pay 2021 Unknown MMO MMO [employer] [id number] 2021-Present [phone] [address] [place] [address] PPO [id number] 2021 Unknown [id number] 2021 Medicare [id number] 2021 Unknown [id number] 2020 Unknown [id number] 2015 Unknown [facility] xxxxxxxxxxxx 2015-Present [phone] [address] [place] [address] xxxxxxxxxxxx [id number] 2003 Medicaid [employer] [employer] [employer] [id number] 2003-Present [phone] [address] [place] [address] Medicaid [id number] 2003 Medicaid [id number] 2003 Unknown [id number] 1975 Unknown [id number] 1975 Unknown [id number] 1975 Unknown [id number] 1975 Unknown [id number] 1975 Unknown [id number] 1975 Unknown [id number] 1975 Unknown [id number] 1975 Unknown [id number] 6 1975 Unknown [id number] 6 Unknown [id number] Social History Date Type Detail Facility Start: 06-18-2018 End: 10-14-2021 Tobacco smoking status NHIS Never smoker [facility] Start: 06-18-2018 End: 10-14-2021 Tobacco use and exposure Never used [place] Start: 06-18-2018 End: 09-02-2023 Alcohol intake Current drinker of alcohol (finding) [place] Start: 08-28-2017 Alcohol Comment social [place], [place] Start: 1975 Sex Assigned At Not on file [place] Start: 06-18-2018 End: 08-05-2020 Alcohol intake Yes [facility] Start: 12-14-2022 End: 12-24-2022 Exposure to SARS-CoV-2 (event) Not sure [facility] Start: 10-26-2018 History SDOH Alcohol Comment Occasional [facility] Start: 1975 Sex Assigned At Female F [facility] Start: 08-05-2020 End: 01-14-2023 History of Social function [facility] National Score (1-10 0), lower number is lower risk 76 [facility] Start: 08-14-2019 Alcohol Comment occasional [facility] Start: 09-06-2022 Gender identity Identifies as female gender (finding) [facility] Start: 09-06-2022 Sexual orientation Heterosexual (fin ding) [facility] Clinical Notes 10-28-2021 to 09-02-2023 Michael Perkins [...] of stress. 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 Past Medical History: Diagnosis Date Anxiety Asthma Autoimmune disease ([facility]) 09/26/2019 Chronic rheumatic arthritis ([facility]) Depression Diabetes mellitus ([facility]) Fibromyalgia GERD (gastroesophageal reflux disease) HLD (hyperlipidemia) HTN (hypertension) HTN (hypertension) 09/22/2021 Hypothyroidism Migraine Moderate mitral regurgitation Obstructive sleep apnea syndrome 02/12/2020 POTS (postural orthostatic tachycardia syndrome) RA (rheumatoid arthritis) ([facility] Syncope TOS (thoracic outlet syndrome) No data recorded No data recorded No data recorded Past Surgical History: Procedure Laterality Date ADENOIDECTOMY APPENDECTOMY BLADDER SUSPENSION Cardiac catheterization - CORS + LV GRAM/PRESS (52258) Left 10/08/2021 Performed by Ana María Plasencia MD at [facility] CARDIAC CATH LABS CHOLECYSTECTOMY ENDOMETRIAL BIOPSY [...] (CMS-HCC) 3. Intermittent palpitations Assessment: Coronary vasospasm; [facility] 09/2021: Minimal CAD, spasm in the [...] MD Referring Physician: Toy Obrien MD [address] [place] [address] Referral and perts faxed to Pulmonology . [facility] Miscellaneous Notes Left message for patient to remind them to bring their most current medication list with them to their appointment. [facility] Telephone encounter Note Left message for patient to remind them to bring their most current medication list with them to their appointment. [facility] History of Present illness Narrative Subjective: [...] Norflex does not help. She sees a curb setter helper for rheumatoid arthritis ([place]) and fibromyalgia. Sleep/Social [...] muscles. She sees Conrad Garcia DC in [place] for her administrator health care facility. She would like to start a preventative [...] History: Diagnosis Date Anxiety Asthma Autoimmune disease ([facility] 09/26/2019 Chronic rheumatic arthritis ([facility]) Depression Diabetes mellitus ([facility]) Fibromyalgia GERD (gastroesophageal reflux disease) HLD (hyperlipidemia) HTN (hypertension) HTN (hypertension) 09/22/2021 Hypothyroidism Migraine Moderate mitral regurgitation Obstructive sleep apnea syndrome 02/12/2020 POTS (postural orthostatic tachycardia syndrome) RA (rheumatoid arthritis) ([facility]) Syncope TOS (thoracic outlet syndrome) Past Surgical History: Procedure Laterality Date ADENOIDECTOMY APPENDECTOMY BLADDER SUSPENSION Cardiac catheterization - CORS + LV GRAM/PRESS (19406) Left 10/08/2021 Performed by Ana María Plasencia MD at [facility] CARDIAC CATH LABS CHOLECYSTECTOMY ENDOMETRIAL BIOPSY [...] muscles. She sees Conrad Garcia DC in [place] for her administrator health care facility. She would like to start a preventative [...] procedures Referring and communicating with other health resident care manager (not separately reported) Documenting clinical information in the electronic or other health record Care coordination (not separately reported) - Cody Hutchins DNP, MEI 08/05/23 12:01 PM [facility]I [place] 08/05/23 1202 documented in this encounter [facility] 08-05-2023 Instructions MEI [place] - 08/05/2023 11:30 [...] --exercise bicycle pedals documented in this encounter [employer] 08-03-2023 Miscellaneous Notes Patient contacted our office requesting a sooner appt. Patient just started a new job and is off every other Tuesday and she is off this Tuesday. Rehabilitation Construction Specialist looked and there are no appts available [...] can add 100 mg in the morning. Rehabilitation Construction Specialist called pt. And left a message for her to call the office back to discuss her medication dosage question. Received call today 08/04/23 9:22 from patient who is requesting a call back in regard to previous message. Please call back and advise, callback#: [phone]. Rehabilitation Construction Specialist spoke with pt. Rehabilitation Construction Specialist told pt about the med dosage per Cody Hutchins and pt stated she understood. Pt also stated she is in so much pain asking for a migraine cocktail so she was added to schedule tomorrow 08/05/23. documented in this encounter [facility] 08-03-2023 Telephone encounter Note Patient contacted our office requesting a sooner appt. Patient just started a new job and is off every other Tuesday and she is off this Tuesday. Rehabilitation Construction Specialist looked and there are no appts available [...] get her a sooner appt. Please advise. [facility] Telephone encounter Note Meron: when you are doing reminder calls for 08/05/2023, if anyone wants to cancel, please contact Lynette and put her on the schedule Clinical: If she is taking 100 mg of zonisamide each evening, she can increase her dose to 200 mg (two of the 100 mg capsules) each evening. [facility] [employer] [facility] 08-03-2023 Telephone encounter Note Patient is already taking 200 mg of the Zonisamide nightly. Please advise. [facility] 08-03-2023 Telephone encounter Note She can add 100 mg in the morning. [facility] [employer] [facility] 08-03-2023 Telephone encounter Note Rehabilitation Construction Specialist called pt. And left a message for her to call the office back to discuss her medication dosage question. [facility] 08-03-2023 Telephone encounter Note Received call today 08/04/23 9:22 from patient who is requesting a call back in regard to previous message. Please call back and advise, callback#: [phone]. [facility] 08-03-2023 Telephone encounter Note Rehabilitation Construction Specialist spoke with pt. Rehabilitation Construction Specialist told pt about the med dosage per Cody Hutchins and pt stated she understood. Pt also stated she is in so much pain asking for a migraine cocktail so she was added to schedule tomorrow 08/05/23. [facility]2023 Miscellaneous Notes 1) When did the [...] requesting a call back to further discuss [phone]. Thank you so much She can increase the zonisamide to 200 mg (2 of the 100 mg capsules) each evening. Patient returned phone call. Rehabilitation Construction Specialist informed her of Cody Hutchins's message below. She voiced understanding. documented in this encounter [facility] 07-21-2023 Telephone encounter Note 1) When did [...] requesting a call back to further discuss [phone]. Thank you so much [facility] 07-21-2023 Telephone encounter Note She can increase the zonisamide to 200 mg (2 of the 100 mg capsules) each evening. [facility] [employer] [facility] 07-21-2023 Telephone encounter Note Patient returned phone call. Rehabilitation Construction Specialist informed her of Cody Hutchins's message below. She voiced understanding. [facility] [employer] [facility] 07-13-2023 Evaluation note Encounter Date Diagnosis Assessment [...] unspecified otitis media type (ICD-10 - H66.91) [employer] Other 12-01-2023 NoteHNO ID: [id number] Author: Chato Chacko RT(R) Service: Radiology Author [...] BY: RT Aurelio(R) June 24, 2023 12:47 [id number] NoteHNO ID: [id number] Author: Noemi Pham MD Service: ? Author [...] bursa injection Informed Consent Consent Obtained: Verbal [place] Protocol A moment to CARE was completed. [...] F/U: 6m Check following: -none Noemi Pham [facility]12-01-2023 History of Present illness Narrative* Chato Chacko [...] 24, 2023 12:47 PM [facility] History of Present illness Narrative* Noemi Pham [...] bursa injection Informed Consent Consent Obtained: Verbal [place] Protocol A moment to CARE was completed. [...] -none Noemi Pham MD [facility] in this encounter[facility]-03-2023 Evaluation note* Encounter Date Diagnosis Assessment Notes [...] May, Right elbow pain (ICD-10 - M25.521) [employer] Other 10-19-2023 Miscellaneous Notes* Telephone Encounter - Allison York OCCA - 05/12/2023 1:29 PM EDT Faxed [facility], patient is no longer on medication * Telephone Encounter - Minh Mosqueda - 05/12/2023 1:16 PM EDT Ashwini from [employer] is calling Noemi Pham MD today to clarify medication. When they were filling the enbrel, it flagged that the patient has a thrombocytopenia diagnosis. They need to clarify that the provider is aware. They cannot send the medication until they get that clarification. [phone] Patient has been identified by name and birthdate. Duration of symptoms: N/A Person calling: [facility] patient at: on cell [phone] (home) [phone] (cell) Was an appointment scheduled: No Closing statement: Results or non-symptom based questions: Thank you for calling [facility], your call will be returned within the next business day. Minh Mosqueda documented in this encounterK[facility]08-16-2023 Miscellaneous Notes* Telephone Encounter - Jud Hess LPN - 03/09/2023 1:59 PM EDT Patient stopped taking the Plaquenil d/t skin rash. Provider aware. * Telephone Encounter - Noemi Pham MD - 03/09/2023 1:37 PM EDT She can continue on the plaquenil bid, eye exam reviewed, no toxicity noted. Noemi Pham MD documented in this encounterK[facility]07-10-2023 Miscellaneous Notes* Telephone Encounter - Brianda Palomares [...] and mail to her. documented in this encounterK[facility]07-05-2023 Miscellaneous Notes* Telephone Encounter - Brianda Palomares LPN - 01/26/2023 1:53 PM EDT Mailed LEVY label to patient per Dr. Pham's request * Telephone Encounter - Noemi Pham MD - 01/26/2023 1:45 PM EDT Please mail her lab order for LEVY panel. Noemi Pham MD documented in this encounterK[facility]06-23-2023 NoteHNO ID: [id number] Author: Noemi Pham MD Service: ? Author [...] F/U: 6m Check following: -none Noemi Pham, [facility]06-21-2023 Miscellaneous Notes* Telephone Encounter - Noemi [...] Days Visit Type Date Time Department [facility] MEDICAL 01/14/2023 11:00 AM [facility] REJ Last Ophthalmology Check for Plaquenil (Hydroxychloroquine) [...] Instance) Lab Orders None documented in this encounterK[facility]06-02-2023 NoteHNO ID: [id number] Author: Liz Connolly MD Service: ? Author Type: Physician Type: Progress Notes Filed: 01/04/2023 10:43 AM Note Text: S[facility] Note- Established patient Provider: Liz [...] that she has been following with her heating and ventilation engineer with every 6 monthly appointments to monitor [...] There is also been weight gain since [facility] (going from 223 pounds to about [...] neck, respiratory, cardiovascular, GI, (more content not included)...[facility] 12-24-2022 NoteHNO ID: [id number] Author: Alejo Marshall MD Service: ? Author [...] Care Visit completed when applicable. Megan Marshall [facility]06-02-2023 History of Present illness Narrative* Alejo [...] applicable. Megan Marshall MD documented in this encounterK[facility]05-10-2023 Miscellaneous Notes* Telephone Encounter - Inocencia Bui LPN - 12/01/2022 3:25 PM EDT Prior authorization for Enbrel initiated on Cover My Meds. Pending. documented in this encounterK[facility]05-02-2023 Miscellaneous Notes* Telephone Encounter - Brianna Murray RN - 11/23/2022 9:22 AM EDT Patient has appointment with Dr. Connolly on 12/24/22 and is asking if any tests should be done prior her appointment. Patient was referred by Dr. Pham ( [facility] Patient c/o of increased muscle weakness. Last [...] units/L Brianna Murray RN documented in this encounterK[facility]04-24-2023 Miscellaneous Notes* Telephone Encounter - Noemi Pham MD - 11/15/2022 1:22 PM EDT Please tell her I received labs from [facility] and her cpk and aldolase returned normal . (CPK was 11 and aldolase 5.0 Noemi Pham MD documented in this encounterK[facility]04-05-2023 Miscellaneous Notes* Telephone Encounter - Inocencia Bui LPN - 10/27/2022 9:44 AM EDT Please advise. documented in this encounterK[facility]03-13-2023 Miscellaneous Notes* Telephone Encounter - Noemi Pham [...] Days Visit Type Date Time Department [facility] MEDICAL 02/16/2023 11:20 AM [facility] RE[facility] Last Ophthalmology Check for Plaquenil (Hydroxychloroquine) [...] Instance) Lab Orders None documented in this encounterKettering [facility]02-15-2023 [facility] Gastroenterology Follow-Up Patient Visit CHIEF COMPLAINT Chief Complaint Patient presents with Follow-up Diarrhea HISTORY OF PRESENT ILLNESS: Lynette Hairston is a 47 y.o. female established patient. Summary of old records: Per HPI from 05/26/22 Lynette Hairston is a 46 y.o. female with PMH of gastroparesis, fatty liver, migraine headache, RA (follows with rheumatology in [place]), anxiety, POTS and IBS. She was last [...] injection, 1 ml, Dis (more content not included)...[facility]01-18-2023 NoteHNO ID: [id number] Author: Jud Hess LPN Service: ? Author Type: ? Type: Progress Notes Filed: 08/11/2022 11:22 AM Note Text: Patient given Depomedrol 80 mg IM in the left upper quadrant gluteus. Patient tolerated injection well. Lot#: [id number] Exp date: 03/23/2024 [facility]23 NoteHNO ID: [id number] Author: Inocencia Bui LPN Service: ? Author Type: ? Type: Progress Notes Filed: 08/11/2022 10:21 AM Note Text: Methylprednisolone injection verified. 80mg.[facility]01-18-2023 NoteHNO ID: [id number] Author: Noemi Pham MD Service: ? Author [...] -check labs today F/U in 6m Noemi Phma MD F/U: 6m Check following: -none Noemi Pham [facility]01-18-2023 History of Present illness Narrative* Jud Hess LPN - 08/11/2022 11:21 AM EST Patient given Depomedrol 80 mg IM in the left upper quadrant gluteus. Patient tolerated injection well. Lot#: [id number] Exp date: 03/23/2024 Jud Hess LPN * [...] -none Noemi Pham MD documented in this encounterK[facility]11-21-2022 Miscellaneous Notes* Telephone Encounter - Inocencia Bui LPN - 06/14/2022 3:35 PM EST Mohsen Prince Felder: [id number] - PA - Rx #: [id number] help? Call us at Outcome Approvedon June 11 CaseId:[id number];Status:Approved;Review Type:Prior Auth;Coverage Start Date:05/12/2022;Coverage End Date:06/11/2023; * Telephone Encounter - Jud Hess LPN - 06/11/2022 11:22 AM EST PA for Enbrel submitted via Cover Meds this date. If approved new Rx will need sent to [facility]. * Telephone Encounter - Shobha Lala - 06/04/2022 9:59 AM EST Lynette Deshaun Prince called today. : 1975 Allergies: Meloxicam and Methotrexate (home) [phone] (cell) Reason for call: patient states she spoke with [facility] & theyre requesting additional info for medication For ENBREL Please advise Patient last appointment: 05/29/2022 The patients preferred pharmacy has been captured for this encounter? yes SHOBHA LALA, RHODA documented in this encounterK[facility]tering [facility]11-10-2022 Miscellaneous Notes* Telephone Encounter - Inocencia Bui LPN - 06/03/2022 9:36 AM EST Follow up message from 05/17/22 encounter and orders. documented in this encounterKettering [facility]11-07-2022 Miscellaneous Notes* Telephone Encounter - Linnea Sanders [...] 365 Days Visit Type Date Time Department [facility] 10/20/2022 9:40 AM [facility] REJ CBC: None on file [...] Instance) Lab Orders None documented in this encounterKettering Health [facility]11-02-2022 [facility] Gastroenterology Follow-Up Patient Visit CHIEF COMPLAINT Chief Complaint Patient presents with Diarrhea Follow-up Patient states she has randomly lost control of her bowels in the recent weeks. HISTORY OF PRESENT ILLNESS: Lynette Hairston is a 46 y.o. female with PMH of gastroparesis, fatty liver, migraine headache, RA (follows with rheumatology in [place]), anxiety, POTS and IBS. She was last [...] afternoon, and at bed (more content not included)...[facility] Miscellaneous Notes* Telephone Encounter - Jud Hess LPN - 05/17/2022 4:26 PM EDT [employer] message sent to patient. * Telephone Encounter [...] : 1975 Allergies: Meloxicam and Methotrexate (home) [phone] (cell) Reason for call: Patient called asking [...] not asked Glory Mason documented in this encounterK[facility]06-07-2022 Miscellaneous Notes* Telephone Encounter - Jud Hess LPN - 12/29/2021 2:47 PM EDT PA for Enbrel submitted via Cover My Meds. Felder: [id number] Pend for determination * Telephone Encounter - [...] message on voicemail) ' documented in this encounterKettering [facility]04-06-2022 Miscellaneous Notes* Telephone Encounter - Jud Hess LPN - 10/28/2021 12:13 PM EDT Rx placed in outgoing mail this date. Patient notified via [email or web address] * Telephone Encounter - Noemi Pham MD - 10/28/2021 11:59 AM EDT rx for handicapped written, please mail to patient. Noemi Pham MD [facility]* Diagnosis Neuropathic pain- Primary Neuralgia, neuritis, and radiculitis, unspecified documented in this encounter [facility] [employer] Work Phone: evaluation note* Diagnosis Fibromyalgia- Primary Mylagia and myositis, unspecified documented in this encounter [facility] noteNo assessment information availableSelect Medical [facility] Work Phone: Evaluation note* Diagnosis Rheumatoid arthritis involving multiple sites, unspecified whether rheumatoid factor present (HCC)- Primary documented in this encounter [facility] note* Diagnosis Myalgia- Primary Mylagia and myositis, unspecified documented in this encounter [facility] note* Diagnosis Fatigue, unspecified type- Primary Elevated aldolase level Other nonspecific abnormal serum enzyme levels Generalized weakness Other malaise and fatigue documented in this encounter [facility]* Diagnosis Fatigue, unspecified type Elevated aldolase level Other nonspecific abnormal serum enzyme levels Generalized weakness Other malaise and fatigue documented in this encounter [facility]* Diagnosis Rheumatoid arthritis involving multiple sites, unspecified whether rheumatoid factor present (HCC)- Primary [facility]* Diagnosis Pain in joint, multiple sites- Primary Trochanteric bursitis of both hips Enthesopathy of hip region documented in this encounter [facility]* Diagnosis Pain in joint, multiple sites documented in this encounter [facility] noteNo InformationNortVA hospital [employer] Other Evaluation note* Diagnosis Status migrainosus- Primary Variants of migraine, not elsewhere classified, without mention of intractable migraine without mention of status migrainosus Migraine without aura and without status migrainosus, not intractable Cervicalgia Fibromyalgia Unspecified myalgia and myositis Paresthesias Disturbance of skin sensation Trapezius muscle spasm Vertigo Dizziness and giddiness documented in this encounter [facility]* Diagnosis Primary hypertension- Primary Unspecified essential hypertension Coronary artery vasospasm ([facility]) Prinzmetal angina Intermittent palpitations Obstructive sleep apnea Obstructive sleep apnea (adult) (pediatric) documented in this encounter [facility] SystemHistory general Narrative - Reported* Type Description Date Medical History rheumatoid arthritis Medical History anxiety Medical History chronic depression Medical History coronary artery disease Surgical History heart catheterization Surgical History gall bladder removed Surgical History tonsillectomy and adenoidectomy Surgical History HYSTERECTOMY Surgical History appendectomy Hospitalization History surgeries [facility] [employer] Other Hospital Discharge instructions* Instructions* Garfield Restrepo [...] a follow up appointment THANK YOU!!! From [facility] and [facility] On behalf of the Emergency Department staff at [facility], I would like to thank you for giving us the opportunity to address your health care needs and concerns. We hope that during your visit, our service was delivered in a professional and caring manner. Please keep [facility] in mind as we walk with you [...] how we did during your visit at [email or web address] and let us know about your experience * Attachments The following attachments cannot be sent through Care Everywhere. * Neuropathic Pain (Mongolian) documented in this encounterEarnix Phone: InstructionsNot on filedocumented in this encounter [employer] SystemInstructionsNot on filedocumented in this encounter [employer] SystemInstructionsNot on filedocumented in this encounter [employer] SystemInstructionsNot on filedocumented in this encounter [facility] for [facility] (narrative)* Outpatient Procedure (Routine) - Pending Review Specialty Diagnoses / Procedures Referred By Alba shin Referred To Contact [facility] Diagnoses Fatigue, unspecified type Elevated aldolase level Generalized weakness Procedures EMG(NEURO/NI) NERVE CONDUCTION STUDIES 9-10 STUDIES Liz Connolly MD [address] [place] [address] [facility] [place] [address] [place] [address] Referral ID Status Reason Start Date Expiration Date Visits Requested Visits Authorized [id number] Pending Review Auto-Generat ed Referral 11/23/2022 11/24/2023 1 1 [facility] for referral (narrative)* Diagnostic Procedure Only (Routine) - Closed Specialty Diagnoses / Procedures Referred By Alba shin Referred To Contact XR IMAGING Diagnoses Pain in joint, multiple sites Procedures XR LUMBAR GENERAL 3V AP/LAT/L5-S1 RADEX SPINE LUMBOSACRAL 2/3 VIEWS Noemi Pham MD [address] [place] [address] [place] [address] Referral ID Status Reason Start Date Expiration Date V isits Requested Visits Authorized [id number] Closed Auto-Generate d Referral 06/24/2023 07/23/2024 1 1 [facility] for referral (narrative)* Diagnostic Procedure Only (Routine) - Closed Specialty Diagnoses / Procedures Referred By Contac t Referred To Contact XR IMAGING Diagnoses Pain in joint, multiple sites Procedures XR LUMBAR GENERAL 3V AP/LAT/L5-S1 RADEX SPINE LUMBOSACRAL 2/3 VIEWS Noemi Pham MD [address] [place] [address] Xr Imaging [id number] Referral ID Status Reason Start Date Expiration Date V isits Requested Visits Authorized [id number] Closed Auto-Generate d Referral 06/24/2023 07/23/2024 1 1 [facility] for referral (narrative)* Consultation (Routine) - Pending Review Specialty Diagnoses / Procedures Referred By Contac t Referred To Contact Pulmonary Medicine Diagnoses Obstructive sleep apnea Michael Perkins MD [address] [place] [address] Olegario Joseph MD [address] [address] Referral ID Status Reason Start Date Expiration Date Visits Requested Visits Authorized [id number] Pending Review Specialty Services Required 09/02/2023 09/01/2024 1 1 [facility] for visit Narrative* Outpatient Procedure (Routine) - Closed Specialty Diagnoses / Procedures Referred By Contac t Referred To [facility] Diagnoses Fatigue, unspecified type Elevated aldolase level Generalized weakness Procedures EMG(NEURO/NI) NERVE CONDUCTION STUDIES 9-10 STUDIES Liz Connolly MD [address] [place] [address] [facility] [place] [address] [place] [address] Referral ID Status Reason Start Date Expiration Date V isits Requested Visits Authorized [id number] Closed Auto-Generate d Referral 11/23/2022 11/24/2023 1 1 [facility] Advance Directives No Advanced Directives Records FoundDocuments on File Type Date Recorded 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 Name: Lynette Prince Surgery Date: 08/22/2019 Room #: Z0 Date of : 1975 PROCEDURE NOTE ATTENDING: Dina Zhou M.D. PROCEDURE PERFORMED: Esophagogastroduodenoscopy. SUPERVISOR FINISH END: Zackary Narvaez M.D. ANESTHESIA USED: Conscious sedation [...] ice in a towel. Please call your rn supplemental tomorrow and your family physician tomorrow to schedule follow-up for 1to 2 days Return to the emergency room for worsening pain swelling numbness tingling or other emergent concerns * Attachments The following attachments cannot be sent through Care Everywhere. * Foot Sprain (Mongolian) documented in this encounter Assessments Diagnosis Sprain [...] treat Isael Yoder MD [address] [facility] [place] [address] Sander Jauregui, PT Reason Comments Foot Pain [...] Noemi Pham MD [address] [place] [address] [place] [address] Referral ID Status Reason Start Date Expiration Date V isits Requested Visits Authorized [id number] Closed Auto-Generate d Referral 06/24/2023 07/23/2024 1 1 Reason Onset Date Comments Headache 07/21/2023 Reason Comments Migraine Migraine cocktail Reason Onset Date Comments Appointment 09/01/2023 Reason Comments Follow-up Hypertension INFORMATION SOURCE (unrecogn ized section and content) DATE CREATED AUTHOR 08/14/2020 [facility] DATE CREATED AUTHOR AUTHOR'S ORGANIZ ATION 07/25/2021 [facility] DATE CREATED AUTHOR AUTHOR'S ORGANIZ ATION 09/20/2022 [facility] DATE CREATED AUTHOR AUTHOR'S ORGANIZ ATION 10/30/2022 [facility] DATE CREATED AUTHOR AUTHOR'S ORGANIZ ATION 03/25/2023 [facility] DATE CREATED AUTHOR AUTHOR'S ORGANIZ ATION 06/27/2023 [facility] DATE CREATED AUTHOR AUTHOR'S ORGANIZ ATION 06/27/2023 [facility] DATE CREATED AUTHOR AUTHOR'S ORGANIZ ATION 09/05/2023 [...] or prosecute any alcohol or drug abuse patient.[facility] the event this information is protected by the Federal Confidentiality of Alcohol and Drug Abuse Patient Records regulations: The Federal rules restrict any use of the information to criminally investigate or prosecute any alcohol or drug abuse patient.[facility] the event this information is protected by the Federal Confidentiality of Alcohol and Drug Abuse Patient Records regulations: The Federal rules restrict any use of the information to criminally investigate or prosecute any alcohol or drug abuse patient.[facility] the event this information is protected by the Federal Confidentiality of Alcohol and Drug Abuse Patient Records regulations: The Federal rules restrict any use of the information to criminally investigate or prosecute any alcohol or drug abuse patient.[facility] the event this information is protected by the Federal Confidentiality of Alcohol and Drug Abuse Patient Records regulations: The Federal rules restrict any use of the information to criminally investigate or prosecute any alcohol or drug abuse patient.[facility] the event this information is protected by the Federal Confidentiality of Alcohol and Drug Abuse Patient Records regulations: The Federal rules restrict any use of the information to criminally investigate or prosecute any alcohol or drug abuse patient.[facility] the event this information is protected by the Federal Confidentiality of Alcohol and Drug Abuse Patient Records regulations: The Federal rules restrict any use of the information to criminally investigate or prosecute any alcohol or drug abuse patient.[facility] the event this information is protected by the Federal Confidentiality of Alcohol and Drug Abuse Patient Records regulations: The Federal rules restrict any use of the information to criminally investigate or prosecute any alcohol or drug abuse patient.[facility] the event this information is protected by the Federal Confidentiality of Alcohol and Drug Abuse Patient Records regulations: The Federal rules restrict any use of the information to criminally investigate or prosecute any alcohol or drug abuse patient.[facility] the event this information is protected by the Federal Confidentiality of Alcohol and Drug Abuse Patient Records regulations: The Federal rules restrict any use of the information to criminally investigate or prosecute any alcohol or drug abuse patient.[facility] the event this information is protected by the Federal Confidentiality of Alcohol and Drug Abuse Patient Records regulations: The Federal rules restrict any use of the information to criminally investigate or prosecute any alcohol or drug abuse patient.[facility]ble[facility] the event this information is protected by the Federal Confidentiality of Alcohol and Drug Abuse Patient Records regulations: The Federal rules restrict any use of the information to criminally investigate or prosecute any alcohol or drug abuse patient.[facility]ble[facility] the event this information is protected by the Federal Confidentiality of Alcohol and Drug Abuse Patient Records regulations: The Federal rules restrict any use of the information to criminally investigate or prosecute any alcohol or drug abuse patient.[facility]ble[facility] the event this information is protected by the Federal Confidentiality of Alcohol and Drug Abuse Patient Records regulations: The Federal rules restrict any use of the information to criminally investigate or prosecute any alcohol or drug abuse patient.[facility]ble[facility] the event this information is protected by the Federal Confidentiality of Alcohol and Drug Abuse Patient Records regulations: The Federal rules restrict any use of the information to criminally investigate or prosecute any alcohol or drug abuse patient.[facility]ble[facility] the event this information is protected by the Federal Confidentiality of Alcohol and Drug Abuse Patient Records regulations: The Federal rules restrict any use of the information to criminally investigate or prosecute any alcohol or drug abuse patient.[facility]ble[facility] the event this information is protected by the Federal Confidentiality of Alcohol and Drug Abuse Patient Records regulations: The Federal rules restrict any use of the information to criminally investigate or prosecute any alcohol or drug abuse patient.[facility]ble[facility] the event this information is protected by the Federal Confidentiality of Alcohol and Drug Abuse Patient Records regulations: The Federal rules restrict any use of the information to criminally investigate or prosecute any alcohol or drug abuse patient.[facility]ble[facility] the event this information is protected by the Federal Confidentiality of Alcohol and Drug Abuse Patient Records regulations: The Federal rules restrict any use of the information to criminally investigate or prosecute any alcohol or drug abuse patient.[facility]ble[facility] the event this information is protected by the Federal Confidentiality of Alcohol and Drug Abuse Patient Records regulations: The Federal rules restrict any use of the information to criminally investigate or prosecute any alcohol or drug abuse patient.[facility]ble[facility] the event this information is protected by the Federal Confidentiality of Alcohol and Drug Abuse Patient Records regulations: The Federal rules restrict any use of the information to criminally investigate or prosecute any alcohol or drug abuse patient.[facility] Care Teams (unrecognized sec tion and content) Toy Painter Relationship Specialty Start Date End Date Toy Obrien MD PCP - General Family Practice 07/05/16 Toy Painter Relationship Specialty Start Date End Date Toy Obrien MD PCP - General Family Practice 07/05/16 Toy Painter Relationship Specialty Start Date End Date Toy Obrien MD PCP - General Family Medicine 07/05/16 Toy Painter Relationship Specialty Start Date End Date Toy Obrien MD PCP - General Family Medicine 07/05/16 Toy Painter Relationship Specialty Start Date End Date Toy Obrien MD PCP - General Family Medicine 07/05/16 Team Status: Inactive Member Role Status Dates ZOEY Degroot Attending Provider Active Toy Painter Relationship Specialty Start Date End Date Toy Obrien MD PCP - General Family Medicine 07/05/16 Toy Painter Relationship Specialty Start Date End Date Toy Obrien MD PCP - General Family Medicine 07/05/16 Toy Painter Relationship Specialty Start Date End Date Toy Obrien MD PCP - General Family Medicine 07/05/16 Toy Painter Relationship Specialty Start Date End Date Toy Obrien MD PCP - General Family Medicine 07/05/16 Toy Painter Relationship Specialty Start Date End Date Toy Obrien MD PCP - General Family Medicine 07/05/16 Toy Painter Relationship Specialty Start Date End Date Toy Obrien MD PCP - General Family Medicine 07/05/16 Toy Painter Relationship Specialty Start Date End Date Toy Obrien MD PCP - General Family Medicine 07/05/16 Toy Painter Relationship Specialty Start Date End Date Toy Obrien MD PCP - General Family Medicine 07/05/16 Toy Painter Relationship Specialty Start Date End Date Toy Obrien MD PCP - General Family Medicine 07/05/16 Toy Painter Relationship Specialty Start Date End Date Toy Obrien MD PCP - General Family Medicine 07/05/16 Toy Painter Relationship Specialty Start Date End Date Toy Obrien MD PCP - General Family Medicine 07/05/16 Toy Painter Relationship Specialty Start Date End Date Toy Obrien MD [address] [place] [address] [place] [phone] PCP - General Family Medicine 09/06/22 Toy Painter Relationship Specialty Start Date End Date Toy Obrien MD [address] [place] [address] [place] [phone] PCP - [facility] Medicine 09/06/22 Toy Painter Relationship Specialty Start Date End Date Toy Obrien MD [facility] [place] [phone] PCP - General Family Medicine 09/06/22 Toy Painter Relationship Specialty Start Date End Date Toy Obrien MD [facility] [place] [phone] PCP - General [facility] Medicine 09/06/22 Toy Painter Relationship Specialty Start Date End Date Toy Obrien MD [facility] [place] [phone] PCP - General Family Medicine 09/06/22 Goals [...] BE BASED ON THE PRIMARY CLINICAL RECORDS. [facility]. provides no warranty or guarantee of the accuracy or completeness of information in this document.
--- NOTE | 2023-09-20 10:16 | XR_ITS ---
The [address] [address] Patient Name: ROSELIA LANDRY MRN: [id number] date: 1975 Sex: F Assigned Patient Location: [facility] Current Patient Location: [facility] Accession/Order Number: [id number] Exam Date: 09/20/2023 10:10 Report Date: 09/20/2023 10:59 At the request of: NON-STAFF PHYSICIAN Procedure: XR lumbar spine 2-3V EXAMINATION: XR lumbar spine 2-3V HISTORY: Chronic Bilateral Low Back Pain Without Sciatica M54.50 COMPARISON: No relevant comparison available. FINDINGS: BONES: Minimal widespread spondylosis and facet osteoarthritis. No visible acute bony abnormality. DISC SPACES: Normal. No significant disc height narrowing, subluxation, or endplate abnormality. PARASPINOUS: Negative. No paraspinous abnormality is seen. OTHER: Right upper quadrant surgical clips likely from prior cholecystectomy XR/XR lumbar spine 2-3V IMPRESSION: Minimal degenerative changes Electronically authenticated by: TOY HAYNES Date: 09/20/2023 10:59
== END 2023-09-20 09:27 | disposition home or self-care (01) ==
LOC: RAD 09:28
DX: M54.50 Low back pain, unspecified (principal); G89.29 Other chronic pain
CPT/HCPCS: 72100

== ENCOUNTER 2023-10-07 08:11 | Outpatient (OUT) | payer OTHER, SELFPAY ==
--- OUTSIDE RECORDS SUMMARY | 2023-10-07 08:15 | XMS_ITS | CCD ---
Author Name Unknown Address [address] [place] [address] Organization [facility] Care Team Providers Care Survey Research Analyst Name Role Phone Toy Obrien Primary Care Provider TOY OBRIEN Primary Care Unavailable GARFIELD RESTREPO Attending Unavailable TOY OBRIEN Primary Care Unavailable GARFIELD RESTREPO Attending Unavailable BLANCA DAWN Referring Unavailable TOY OBRIEN Primary Care Unavailable BLANCA DAWN Referring Unavailable TOY OBRIEN Primary Care Unavailable Toy Obrien MD Primary Care Provider [phone] Toy Obrien MD Primary Care Provider ZOEY Monson Attending Provider Toy Obrien MD Primary Care Provider [phone] Jud Monson Admitting Unavailable Jud Monson Attending Unavailable NON STAFF Primary Care Unavailable CRISTHIAN FALCON Attending Unavailable CRISTHIAN FALCON Attending Unavailable TOY OBRIEN Primary Care Unavailable JACOBR, LACHELLE N Referring Unavailable TERRY SHEFFIELD Referring Unavailabl e TOY OBRIEN Primary Care Unavailable JACOBR, LACHELLE N Admitting Unavailable CLINTON, LACHELLE Luz Attending Unavailable TOY OBRIEN Primary Care Unavailable [...] Referring Unavailable TOY OBRIEN Primary Care Unavailable RossiBeba Unavailable Toy Obrien MD Primary Care Provider [phone] Betty Moreau Unavailable CODY HUTCHINS Attending Unavailable TOY OBRIEN Referring Unavailable TOY OBRIEN Primary Care Unavailable MICHAEL PERKINS Attending Unavailable TOY OBRIEN Referring Unavailable TOY OBRIEN Primary Care Unavailable TOY OBRIEN Primary Care Unavailable NASEEM LOUISE Attending Unavailable NASEEM LOUISE Attending Unavailable NASEEM LOUISE Referring Unavailable TOY OBRIEN Primary Care Unavailable Allergies Allergy Classification Reported Allergen(s) Allergy Type Date of Onset Reaction(s) Facility NSAIDs (1 source) meloxicam Drug Allergy [address] [facility] (20 sources) meloxicam; Translations: [MELOXICAM] Drug Allergy 7 [place], [place] (20 sources) Methotrexate; Translations: [METHOTREXATE] Drug Allergy 5 GI Upset, [facility] (8 sources) Isosorbide; Translations: [ISOSORBIDE MONONITRATE] Drug Allergy 2 Headache, Vomiting [facility] (3 sources) Isosorbide Dinitrate Drug Allergy Unknown [facility] (P) Other Medications Current Medications Medication Drug Class(es) [...] 09/14/2022 Active predniSONE 20 mg oral tablet (20 sources) Start: 07-13-20 take 1 tablet by [...] tablet (20 sources) Antimalarial, Antirheumatic Agent Start: 2015 End: 2023 take 1 tablet by mouth twice daily hydrOXYchloroQUINE (PLAQUENIL) 200 mg tablet TAKE 1 TABLET BY MOUTH TWICE A DAY 60 tablet 3 03/07/2023 Active Comment on above: Take 1 tablet by candice th twice daily. TAKE 1 TABLET BY CANDICE TH TWICE A DAY ibuprofen 800 mg oral tablet (20 sources) Nonsteroidal Anti-inflammatory Drug Start: 2020 ibuprofen (MOTRIN) 800 mg tablet Take 800 [...] twice daily. metaxalone 800 mg oral tablet (20 sources) Start: 01-12-2023 take 0.5 tablet by [...] Serotonin-3 Receptor Antagonist Start: 05-13-20 End: 05-31-20 22 take 1 tablet by mouth every twelve hours as needed ondansetron (ZOFRAN) 4 mg tablet TAKE 1 TABLET BY MOUTH EVERY 12 HOURS NEEDED 30 tablet 2 05/31/2022 Active Comment on above: TAKE 1 TABLET BY CANDICE EVERY 12 HOURS NEEDED 1 ml promethazine [...] orthostatic tachycardia syndrome] Onset: 09-26-2019 09-07-2022 Chronic Conditions associated with dizziness or vertigo (13 sources) Vertigo; Translations: [Dizziness and giddiness] Onset: 09-26-2019 09-26-2019 Episodic Coronary atherosclerosis and other heart disease (7 [...] levels of other serum enzymes] Episodic Other lower respiratory disease (1 source) Shortness of breath; Translations: [Shortness of breath] Onset: 09-27-2023 Episodic Other nervous system disorders (5 sources) Chronic pain; Translations: [Other chronic pain] Onset: 09-26-2019 09-26-2019 Chronic Other non-traumatic joint disorders (1 source) Pain [...] Translations: [Rheumatoid arthritis, unspecified] Onset: 09-26-2019 Chronic Spondylosis; intervertebral disc disorders; other back problems (14 sources) Neck pain; Translations: [Cervicalgia] Onset: 09-26-2019 09-26-2019 Episodic Systemic lupus erythematosus and connective tissue disorders (5 sources) Autoimmune disease; 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, unspecified] Onset: 09-26-2019 09-26-2019 Chronic Thyroid disorders (5 sources) Acquired hypothyroidism; Translations: [Hypothyroidism, unspecified] Onset: 10-23-2015 08-21-2021 Chronic Unclassified (1 source) Sprain of left foot; Translations: [Sprain of left foot, initial encounter] Unclassified (1 source) Pain in right elbow; Translations: [Pain in right elbow] Onset: 07-30-2022 Unclassified (1 source) Weakness - Generalized Onset: 09-27-2023 Unclassified (1 source) Shortness of Breath; Heart Palpitations; Weakness Onset: 09-27-2023 Urinary tract infections (1 source) Acute cystitis without hematuria; Translations: [Acute cystitis without hematuria] Onset: 09-27-2023 Episodic Past or Other Problems Problem Classification Problem [...] somnolence; Translations: [Somnolence] Onset: 9 11-05-2018 Episodic Gastrointestinal hemorrhage (5 sources) Blood-tinged feces; [...] Onset: 0 Episodic Other non-traumatic joint disorders (15 sources) Joint swelling; Translations: [Effusion, unspecified joint] Onset: 3 01-04-2023 Episodic Other non-traumatic joint disorders (17 sources) Multiple joint pain; Translations: [Pain in unspecified joint] Onset: 3 01-04-2023 Episodic Other [...] Onset: 0 04-21-2018 Episodic Other skin disorders (15 sources) Skin finding; Translations: [Unspecified skin changes] Onset: 3 01-04-2023 Episodic Other skin disorders (1 source) Rash and other nonspecific skin eruption; Translations: [Malar rash] Onset: 3 Episodic Residual codes; unclassified (20 sources) Disturbance in sleep behavior; Translations: [Sleep disorder, unspecified] Onset: 9 11-05-2018 Episodic Sprains and strains (5 sources) Strain of flexor muscle of hip; Translations: [Strain of muscle, fascia and tendon of unspecified hip, initial encounter] Onset: 3 06-24-2021 Episodic Syncope (5 sources) Syncope and collapse; Translations: [Syncope and collapse] Onset: 4 Resolved: 8 04-26-2018 Episodic Unclassified (5 sources) Onset: 8 12-21-2017 Results Test Name Value Interpretation Reference Range Facil ity CBC AND AUTO DIFFon 09-27-19 24 ABSOLUTE BASOPHIL 0.1 X10E9/L Normal 0.0-0.2 [facility] Comment on above: Performed By: #### C NO, CMP, 76770-4, 49710-9 #### [facility] ([id number]) [address] [facility] [place] [address] ABSOLUTE NEUTROPHIL 6.1 X10E9/L Normal 1.5-6.[address] [facility] Comment on above: Performed By: #### C BCA, CMP, 30875-5, 88420-4 #### [facility] ([id number]) [address] [facility] [place] [address] Basophils/100 WBC (Bld) 0.9 % Normal [facility] Comment on above: Performed By: #### C BCA, CMP, 85303-5, 97488-8 #### [facility] ([id number]) [address] [facility] [place] [address] Eosinophils (Bld) [#/Vol] 0.2 10*3/uL Normal 0.0-0.4 [facility] Comment on above: Performed By: #### C BCA, CMP, 45957-8, 11533-3 #### [facility] ([id number]) [address] [facility] [place] [address] Eosinophils/100 WBC (Bld) 2.0 % Normal [facility] Comment on above: Performed By: #### C BCA, CMP, 34621-4, 62241-3 #### [facility] ([id number]) [address] [place] [address] Erythrocyte distribution width (RBC) [Ratio] 13.1 % Normal 11.5-15.0 [facility] Comment on above: Performed By: #### C BCA, CMP, 66784-6, 53856-6 #### [facility] ([id number]) [address] [facility] [place] [address] Hematocrit (Bld) [Volume fraction] 45.3 % Normal 35-47 [facility] Comment on above: Performed By: #### C BCA, CMP, 63342-5, 71386-6 #### [facility] ([id number]) [address] [place] [address] Hemoglobin (Bld) [Mass/Vol] 15.4 g/dL Normal 11.7-15.5 [facility] Comment on above: Performed By: #### C BCA CMP, 22782-6, 11570-6 #### [facility] ([id number]) [address] [place] [address] Lymphocytes (Bld) [#/Vol] 2.4 10*3/uL Normal 1.0-3.5 [facility] Comment on above: Performed By: #### C NO CMP, 89397-7, 92060-7 #### [facility] ([id number]) [address] [place] [address] Lymphocytes/100 WBC (Bld) 25.2 % Normal [facility] Comment on above: Performed By: #### Denis SARABIA CMP, 62875-9, 38179-7 #### [facility] ([id number]) [address] [place] [address] MCH (RBC) [Entitic mass] 31.8 pg Normal 27-34 [facility] Comment on above: Performed By: #### C NO, CMP, 56572-5, 28774-7 #### [facility] ([id number]) [address] [place] [address] MCHC (RBC) [Mass/Vol] 33.9 g/dL Normal 32-36 [facility] Comment on above: Performed By: #### C BCA, CMP, 12072-3, 77950-3 #### [facility] ([id number]) [address] [place] [address] MCV (RBC) [Entitic vol] 94 fL Normal 80-100 [facility] Comment on above: Performed By: #### C BCA, CMP, 74965-3, 62847-8 #### [facility] ([id number]) [address] [place] [address] Monocytes (Bld) [#/Vol] 0.7 10*3/uL Normal 0-0.9 [facility] Comment on above: Performed By: #### C BCA, CMP, 27585-3, 60730-9 #### [facility] ([id number]) [address] [facility] [place] [address] Monocytes/100 WBC (Bld) 7.4 % Normal [facility] Comment on above: Performed By: #### C BCA, CMP, 31655-6, 38825-1 #### [facility] ([id number]) [address] [facility] [place] [address] Neutrophils/100 WBC (Bld) 64.5 % Normal [facility] Comment on above: Performed By: #### C BCA, CMP, 27154-0, 50752-6 #### [facility] ([id number]) [address] [facility] [place] [address] Platelet mean volume (Bld) [Entitic vol] 9.4 fL Normal 7-12 [facility] Comment on above: Performed By: #### C BCA, CMP, 27963-0, 90168-9 #### [facility] ([id number]) [address] [facility] [place] [address] Platelets (Bld) [#/Vol] 186 10*3/uL Normal 150-450 [facility] Comment on above: Performed By: #### C BCA, CMP, 74953-0, 21566-6 #### [facility] ([id number]) [address] [place] [address] RBC COUNT 4.83 X10E12/L Normal 3.80-5.20 [facility] Comment on above: Performed By: #### C BCA, CMP, 49092-5, 24816-0 #### [facility] ([id number]) [address] [place] [address] WBC (Bld) [#/Vol] 9.5 10*3/uL Normal 4.0-11.0 [facility] Comment on above: Performed By: #### C BCA, CMP, 79426-7, 06992-6 #### [facility] ([id number]) [address] [place] [address] COMPREHENSIVE METABOLIC PANE Priyank 09-27-2023 Albumin [Mass/Vol] 4.2 g/dL Normal 3.2-5.3 [facility] Comment on above: Performed By: #### C BCA, CMP, 20293-6, 02909-4 #### [facility] ([id number]) [address] [place] [address] ALP [Catalytic activity/Vol] 37 U/L Low 39-130 [facility] Comment on above: Performed By: #### C BCA, CMP, 70761-0, 55187-9 #### [facility] ([id number]) [address] [place] [address] ALT [Catalytic activity/Vol] 50 U/L High 0-31 [facility] Comment on above: Performed By: #### C BCA, CMP, 42517-3, 17402-7 #### [facility] ([id number]) [address] [place] [address] Anion gap [Moles/Vol] 10 mmol/L Normal 5-15 [facility] Comment on above: Performed By: #### C BCA, CMP, 80762-2, 00916-5 #### [facility] ([id number]) [address] [place] [address] AST [Catalytic activity/Vol] 41 U/L Normal 0-41 [facility] Comment on above: Performed By: #### C BCA, CMP, 24932-3, 54398-4 #### [facility] ([id number]) [address] [place] [address] Bilirubin [Mass/Vol] 1.4 mg/dL High 0.3-1.2 [facility] Comment on above: Performed By: #### C BCA, CMP, 75064-3, 75627-8 #### [facility] ([id number]) [address] [place] [address] Calcium [Mass/Vol] 9.1 mg/dL Normal 8.5-10.5 [facility] Comment on above: Performed By: #### C BCA, CMP, 98032-8, 94647-3 #### [facility] ([id number]) [address] [place] [address] Chloride [Moles/Vol] 103 mmol/L Normal 98-109 [facility] Comment on above: Performed By: #### C BCA, CMP, 81014-1, 29908-8 #### [facility] ([id number]) [address] [place] [address] CO2 [Moles/Vol] 23 mmol/L Normal 22-32 [facility] Comment on above: Performed By: #### C NO, CMP, 49100-7, 61388-5 #### [facility] ([id number]) [address] [place] [address] Creatinine [Mass/Vol] 0.99 mg/dL Normal 0.40-1.00 [facility] Comment on above: Result Comment: METH OD TRACEABLE TO IDMS STANDARD Performed By: #### C NO, CMP, 26175-8, 55638-0 #### [facility] ([id number]) [address] [place] [address] GFR/1.73 sq M.predicted among non-blacks MDRD (S/P/Bld) [Vol rate/Area] 70 mL/min/{1.73_m2} Normal >59 [facility] Comment on above: Result Comment: Reported eGFR is based on the CKD-EPI 1 equation that does not use a race coefficient. Performed By: #### C BCA, CMP, 80109-1, 57517-9 #### [facility] ([id number]) [address] [place] [address] Glucose [Mass/Vol] 98 mg/dL Normal 65-99 [facility] Comment on above: Performed By: #### C BCA, CMP, 00183-4, 98434-2 #### [facility] ([id number]) [address] [place] [address] Potassium [Moles/Vol] 3.4 mmol/L Low 3.5-5.0 [facility] Comment on above: Performed By: #### C BCA, CMP, 65103-7, 52074-2 #### [facility] ([id number]) [address] [place] [address] Protein [Mass/Vol] 7.5 g/dL Normal 6.0-8.0 [facility] Comment on above: Performed By: #### C NO CMP, 11339-7, 64835-5 #### [facility] ([id number]) [address] [place] [address] Sodium [Moles/Vol] 136 mmol/L Normal 134-146 [facility] Comment on above: Performed By: #### C NO CMP, 25641-2, 25181-5 #### [facility] ([id number]) [address] [place] [address] Urea nitrogen [Mass/Vol] 10 mg/dL Normal 5-23 [facility] Comment on above: Performed By: #### C NO CMP, 17791-9, 15689-5 #### [facility] ([id number]) [address] [facility] [place] [address] Fibrin D-dimer DDU (PPP) [Ma ss/Vol]on 09-27-2023 D DIMER <150 Normal <255 [facility] Comment on above: Result Comment: Results <255 ng/mL DDU: The presence of a VTE can safely be excluded with a negative D-Dimer result and Wells score. A negative result doesn't exclude the possibility of DIC. The test be repeated along with other diagnostic tests if the patient's symptoms persist or worsen. [email or web address] Performed By: #### C BCA, CMP, 88690-2, 26407-7 #### [facility] ([id number]) [address] [place] [address] SARS/FLU A+B/RSV by NAAT/Mol ecularon 09-27-2023 SARS/FLU A+B/RSV by NAAT/Molecular FLU A PCR Negative (qualifier value) FLU B PCR Negative (qualifier value) RSV by PCR Negative (qualifier value) SARS CoV 2 Not detected (qualifier value) NOTE The Xpert Xpress SARS-CoV-2/Flu/RSV Plus test is a rapid, multiplexed real-time RT-PCR test intended for the simultaneous qualitative detection and differentiation of SARS-CoV-2, influenza A, influenza B and respiratory syncytial virus (RSV) viral RNA from individuals suspected of respiratory viral infection consistent with COVID-19 by their healthcare provider. This test has not been validated in asymptomatic patients. The Xpert Xpress SARS-CoV-2 test is intended for use by qualified and trained operators who are performing tests using either [employer] It's what's in store or [employer] systems and is limited to laboratories that meet the CLIA requirements to perform high and moderate complexity tests. The Xpert Xpress SARS-CoV-2/Flu/RSV Plus is only for use under the Food and Drug Administration's Emergency Use Authorization. Results are for the simultaneous detection and differentiation of SARS-CoV-2, influenza A, influenza B and RSV nucleic acids in clinical specimens. SARS-CoV-2, influenza A, influenza B and RSV RNA identified by this test are generally detectable in upper respiratory samples during the acute phase of infection. Positive results are indicative of the presence of the identified virus, but do not rule out bacterial infection or co-infection with other pathogens not detected by this test. Clinical correlation with patient history and other diagnostic information is necessary to determine patient infection status. The agent detected may not be the definite cause of disease. Negative results do not preclude SARS-CoV-2, influenza A, influenza B and RSV infection and should not be used as the sole basis for treatment or other patient management decisions. Negative results must be combined with clinical observations, patient history and epidemiological information. An Invalid result may occur with specimen-associated inhibition unable to be resolved with specimen repeat. Fact Sheet for Healthcare Providers: https://www.fda.gov/me nanci/177483/download Fact Sheet for Patients: https://www.fda.gov/me nanci/157383/download Normal [facility] Comment on above: Performed By: #### C OVFLR #### [facility] ([id number]) [address] [facility] [place] [address] TROPONIN Ion 09-27-2023 Troponin I.cardiac [Mass/Vol] ng/mL Normal 0.00-0.04 [facility] Comment on above: Performed By: #### C BCA, CMP, 95370-6, 88632-4 #### [facility] ([id number]) [address] [place] [address] URINE CULTUREon 09-27-2023 Bacteria identified Cx Nom (U) CULTURE RESULTS <10,000 ORGANISMS/ML NORMAL URO GENITAL JIMMY Normal [facility] Comment on above: Performed By: #### 6 30-4 #### [facility] ([id number]) [address] [place] [address], [address] [place] [address] URN MACROSCOPIC NURon 2023 BILIRUBIN GALLO Negative Normal NEG [facility] Comment on above: Performed By: #### N UM #### [facility] ([id number]) [address] [place] [address] BLOOD/HGB GALLO Negative Normal NEG [facility] Comment on above: Performed By: #### N UM #### [facility] ([id number]) [address] [place] [address] GLUCOSE GALLO Negative Normal NEG [facility] Comment on above: Performed By: #### N UM #### [facility] ([id number]) [address] [address] KETONES GALLO Negative Normal NEG [facility] Comment on above: Performed By: #### N UM #### [facility] ([id number]) [address] [place] [address] LEUKOCYTE ESTERASE GALLO Negative Normal NEG [facility] Comment on above: Performed By: #### N UM #### [facility] ([id number]) [address] [place] [address] NITRITE GALLO Positive Abnormal NEG [facility] Comment on above: Performed By: #### N UM #### [facility] ([id number]) [address] [place] [address] PH GALLO 7.0 Normal 5.0-8.5 [facility] Comment on above: Performed By: #### N UM #### [facility] ([id number]) [address] [place] [address] PROTEIN GALLO Negative Normal NEG [facility] Comment on above: Performed By: #### N UM #### [facility] ([id number]) [address] [place] [address] SPECIFIC GRAVITY GALLO 1.020 Normal 1.003-1.035 [facility] Comment on above: Performed By: #### N UM #### [facility] ([id number]) [address] [place] [address] UROBILINOGEN GALLO 0.2 eu/dL Normal <1.1 [facility] Comment on above: Performed By: #### N UM #### [facility] ([id number]) [address] [place] [address] Urine collection deviceon ER EXTRA URINES ER EXTRA URINE ORDER IN PROCESS Normal [facility] Comment on above: Performed By: #### 8 0334-6 #### [facility] ([id number]) [address] [facility] [place] [address] XR CHEST 1 VWon 09-27-2023 XR CHEST 1 VW XR CHEST 1 VW XR CHEST 1 VW CLINICAL INFORMATION: Shortness of breath. COMPARISON: 03/25/23. IMPRESSION: * No acute cardiopulmonary disease. Finalized by Manas Biggs MD on 09/27/2023 3:16 PM Normal [facility] POCT EKGon 09-02-2023 [facility] ALDOLASE BLDon 06-24-2023 Aldolase [Catalytic activity/Vol] 11.2 mU/mL High 1.5 - 8.1 U/L [facility] Aldolase SerPl-cCncon 2022 Aldolase [Catalytic activity/Vol] 11.2 mU/mL High 1.5-8.1 [facility] Comment on above: Order Comment: Speci men Type: BLOOD SPECIMEN Ordering Facility: [facility] Address: [address] [place] [address], [place] [address] Result Comment: This test was developed and its performance characteristics determined by [facility]'s [facility] ([facility]). It has not been cleared or approved by the FDA. [facility] is regulated under CLIA as qualified to perform high-complexity testing. This test is used for clinical purposes. It should not be regarded as investigational or for research. Performed By: #### 1 761-6 #### [facility] CLIA [id number] [address] [facility] [id number] [place] C-REACTIVE PROTEIN (CRP)on 08-25-2022 CRP [Mass/Vol] 0.6 mg/dL <0.9 mg/dL [facility] CBC panel Auto (Bld)on 06-24 Erythrocyte distribution width (RBC) [Ratio] 11.9 % Normal 11.5-15.0 [facility] Comment on above: Order Comment: Mert del valle Type: BLOOD SPECIMEN Ordering Facility: [facility] Address: [address] [place] [address] Performed By: #### 5 8410-2 #### [facility] [place] [id number] [address] [place] [address] [place] Hematocrit (Bld) [Volume fraction] 45.7 % Normal 36.0-46.0 [facility] Comment on above: Order Comment: Mert del valle Type: BLOOD SPECIMEN Ordering Facility: [facility] Address: [address] [place] [address] Performed By: #### 5 8410-2 #### [facility] [place] [id number] [address] [place] [address] [place] Hemoglobin (Bld) [Mass/Vol] 15.5 g/dL Normal 11.5-15.5 [facility] Comment on above: Order Comment: Mert del valle Type: BLOOD SPECIMEN Ordering Facility: [facility] Address: [address] [place] [address] Performed By: #### 5 8410-2 #### [facility] [place] [id number] [address] [place] [address] [place] MCH (RBC) [Entitic mass] 31.6 pg Normal 26.0-34.0 [facility] Comment on above: Order Comment: Speci men Type: BLOOD SPECIMEN Ordering Facility: [facility] Address: [address] [place] [address] Performed By: #### 5 8410-2 #### [facility] CLIA [id number] [address] [place], [place] [id number] [place] [address] [place] MCHC (RBC) [Mass/Vol] 33.9 g/dL Normal 30.5-36.0 [facility] Comment on above: Order Comment: Speci men Type: BLOOD SPECIMEN Ordering Facility: [facility] Address: [address] [place] [address] Performed By: #### 5 8410-2 #### [facility] [place] [id number] [address] [place] [address] [place] MCV (RBC) [Entitic vol] 93.1 fL Normal 80.0-100.0 [facility] Comment on above: Order Comment: Speci men Type: BLOOD SPECIMEN Ordering Facility: [facility] Address: [address] [place] [address] Performed By: #### 5 8410-2 #### [facility] IA [id number] [address] [place] [address] [place] Nucleated RBC (Bld) [#/Vol] 10*3/uL Normal <0.01 [facility] Comment on above: Order Comment: Speci men Type: BLOOD SPECIMEN Ordering Facility: [facility] Address: [address] [place] [address] Performed By: #### 5 8410-2 #### [facility] CLIA [id number] [address] [place] [address] [place] Platelet mean volume (Bld) [Entitic vol] 10.6 fL Normal 9.0-12.7 [facility] Comment on above: Order Comment: Speci men Type: BLOOD SPECIMEN Ordering Facility: [facility] Address: [address] [place] [address] Performed By: #### 5 8410-2 #### [facility] CLIA [id number] [address] [place] [address] [place] [facility] [place] Platelets (Bld) [#/Vol] 192 10*3/uL Normal 150-400 [facility] Comment on above: Order Comment: Speci men Type: BLOOD SPECIMEN Ordering Facility: [facility] Address: [address] [place] [address] Performed By: #### 5 8410-2 #### [facility] CLIA [id number] [address] [place], [place] [address] [place] [address] [place] RBC (Bld) [#/Vol] 4.91 10*6/uL Normal 3.90-5.20 [facility] Comment on above: Order Comment: Speci men Type: BLOOD SPECIMEN Ordering Facility: [facility] Address: [address] [place] [address] Performed By: #### 5 8410-2 #### [facility] IA [id number] [address] OF [facility] WBC (Bld) [#/Vol] 8.95 10*3/uL Normal 3.70-11.00 [facility] Comment on above: Order Comment: Speci men Type: BLOOD SPECIMEN Ordering Facility: [facility] Address: [address] [place] [address] Performed By: #### 5 8410-2 #### [facility] IA [id number] [address] [place] [address] [place] Erythrocyte distribution width (RBC) [Ratio] 11.9 % 11.5 - 15.0 % [facility] Hematocrit (Bld) [Volume fraction] 45.7 % 36.0 - 46.0 % [facility] Hemoglobin (Bld) [Mass/Vol] 15.5 g/dL 11.5 - 15.5 g/dL [facility] MCH (RBC) [Entitic mass] 31.6 pg 26.0 - 34.0 pg [facility] MCHC (RBC) [Mass/Vol] 33.9 g/dL 30.5 - 36.0 g/dL [facility] MCV (RBC) [Entitic vol] 93.1 fL 80.0 - 100.0 fL [facility] Nucleated RBC (Bld) [#/Vol] <0.01 k/uL [facility] Platelet mean volume (Bld) [Entitic vol] 10.6 fL 9.0 - 12.7 fL [facility] Platelets (Bld) [#/Vol] 192 10*3/uL 150 - 400 k/uL [facility] RBC (Bld) [#/Vol] 4.91 10*6/uL 3.90 - 5.2 0 m/uL [facility] WBC (Bld) [#/Vol] 8.95 10*3/uL 3.70 - 11. 00 k/uL [facility] CK CREATINE KINASEon 023 CK [Catalytic activity/Vol] 119 U/L 42 - 196 U/L [facility] CK SerPl-cCncon 06-24-2023 CK [Catalytic activity/Vol] 119 U/L Normal 42-196 [facility] Comment on above: Order Comment: Speci men Type: BLOOD SPECIMEN Ordering Facility: [facility] Address: [address] [place] [address] [place] [address] Performed By: #### 2 157-6, 1987-11, 89261-9 #### [facility] CLIA [id number] [address] CNOVon 06-24-2023 CNOV Office Visit (HYUN ) LYNETTE HAIRSTON ([id number]) 1975 F Date Time Provider Department 06/24/23 [...] bursa injection Informed Consent Consent Obtained: Verbal [place] Protocol A moment to CARE was completed. [...] myopthay and (more content not included)... Normal [facility] CRP SerPl-mCncon 06-24-2023 CRP [Mass/Vol] 0.6 mg/dL Normal <0.9 [facility] Comment on above: Order Comment: Speci men Type: BLOOD SPECIMEN Ordering Facility: [facility] Address: [address] [place] [address] Performed By: #### 2 157-6, 1987-11, #### [facility] CLIA [id number] [address] [place] [address] [place] Comprehensive metabolic 2000 panelon 06-24-2023 Albumin [Mass/Vol] 4.5 g/dL Normal 3.9-4.9 [facility]ana Comment on above: Order Comment: Lynni ivon Type: BLOOD SPECIMEN Ordering Facility: [facility] Address: [address] [place] [address] Performed By: #### 2 157-6, 1987-11, #### [facility] CLIA [id number] [address] [place] [address] [place] ALP [Catalytic activity/Vol] 46 U/L Normal 34-123 [facility] Comment on above: Order Comment: Speci men Type: BLOOD SPECIMEN Ordering Facility: [facility] Address: [address] [place] [address] Performed By: #### 2 157-6, 1987-11, #### [facility] CLIA [id number] [address] [place] [address] [place] ALT [Catalytic activity/Vol] 46 U/L High 7-38 [facility] Comment on above: Order Comment: Speci men Type: BLOOD SPECIMEN Ordering Facility: [facility] Address: [address] [place] [address] Performed By: #### 2 157-6, 1987-11, #### [facility] CLIA [id number] [address] [place] [address] [place] Anion gap [Moles/Vol] 8 mmol/L Low 9-18 [facility] Comment on above: Order Comment: Speci men Type: BLOOD SPECIMEN Ordering Facility: [facility] Address: [address] [place] [address] Performed By: #### 2 157-6, 1987-11, #### [facility] CLIA [id number] [address] [place] [address] [place] AST [Catalytic activity/Vol] 39 U/L High 13-35 [facility] Comment on above: Order Comment: Speci men Type: BLOOD SPECIMEN Ordering Facility: [facility] Address: [address] [place] [address] Performed By: #### 2 157-6, 1987-11, #### [facility] CLIA [id number] [address] [place] [address] [place] Bilirubin [Mass/Vol] 1.2 mg/dL Normal 0.2-1.3 [facility] Comment on above: Order Comment: Speci men Type: BLOOD SPECIMEN Ordering Facility: [facility] Address: [address] [place] [address] Performed By: #### 2 157-6, 1987-11, #### [facility] CLIA [id number] [address] [place] [address] [place] Calcium [Mass/Vol] 9.5 mg/dL Normal 8.5-10.2 [facility] Comment on above: Order Comment: Speci men Type: BLOOD SPECIMEN Ordering Facility: [facility] Address: [address] [place] [address] Performed By: #### 2 157-6, 1987-11, #### [facility] CLIA [id number] [address] [place] [address] [place] Chloride [Moles/Vol] 105 mmol/L Normal 97-105 [facility] Comment on above: Order Comment: Speci men Type: BLOOD SPECIMEN Ordering Facility: [facility] Address: [address] [place] [address] Performed By: #### 2 157-6, #### [facility] CLIA [id number] [address] [facility] [place] [address] [place] CO2 [Moles/Vol] 27 mmol/L Normal 22-30 [facility] Comment on above: Order Comment: Speci men Type: BLOOD SPECIMEN Ordering Facility: [facility] Address: [address] [place] [address] Performed By: #### 2 157-6, #### [facility] CLIA [id number] [address] [place] [address] [place] Creatinine [Mass/Vol] 1.10 mg/dL High 0.58-0.96 [facility] Comment on above: Order Comment: Speci men Type: BLOOD SPECIMEN Ordering Facility: [facility] Address: [address] [place] [address] Performed By: #### 2 1576, #### [facility] CLIA [id number] [address] [place] [address] [place] Creatinine and Glomerular filtration rate.predicted panel (S/P/Bld) 62 mL/min/1.73m??? Normal >=60 [facility] Comment on above: Order Comment: Speci men Type: BLOOD SPECIMEN Ordering Facility: [facility] Address: [address] [place] [address] Result Comment: Flores mated Glomerular Filtration Rate [...] GFR. Performed By: #### 2 157-6, #### [facility] CLIA [id number] [address] [facility] [place] [address] [place] Glucose [Mass/Vol] 94 mg/dL Normal 74-99 [facility] Comment on above: Order Comment: Mert del valle Type: BLOOD SPECIMEN Ordering Facility: [facility] Address: [address] [place] [address] Result Comment: The [place] Diabetes Association (ADA) provides guidance for cutoff [...] Standards of Medical Care in Diabetes 2016, [place] [employer]. Diabetes Care. 2016.39(Suppl 1). Performed By: #### 2 157-, #### [facility] CLIA [id number] [address] [place] [address] [place] Potassium [Moles/Vol] 4.2 mmol/L Normal 3.7-5.1 [facility] Comment on above: Order Comment: Mert del valle Type: BLOOD SPECIMEN Ordering Facility: [facility] Address: [address] [place] [address] Performed By: #### 2 157, #### [facility] CLIA [id number] [address] [place] [address] [place] Protein [Mass/Vol] 7.3 g/dL Normal 6.3-8.0 [facility] Comment on above: Order Comment: Mert del valle Type: BLOOD SPECIMEN Ordering Facility: [facility] Address: [address] [place], [place] [address] Performed By: #### 2 , #### [facility] CLIA [id number] [address] [place] [address] [place] Sodium [Moles/Vol] 140 mmol/L Normal 136-144 [facility] Comment on above: Order Comment: Speci men Type: BLOOD SPECIMEN Ordering Facility: [facility] Address: [address] [place] [address] Performed By: #### 2 157-6, #### [facility] CLIA [id number] [address] [place] [address] [place] Urea nitrogen [Mass/Vol] 12 mg/dL Normal 7-21 [facility] Comment on above: Order Comment: Speci men Type: BLOOD SPECIMEN Ordering Facility: [facility] Address: [address] [place] [address] Performed By: #### 2 157-6, #### [facility] CLIA [id number] [address] [place] [address] [place] Albumin [Mass/Vol] 4.5 g/dL 3.9 - 4.9 g/dL [facility] ALP [Catalytic activity/Vol] 46 U/L 34 - 123 U/L [facility] ALT [Catalytic activity/Vol] 46 U/L High 7 - 38 U/L [facility] Anion gap [Moles/Vol] 8 mmol/L Low 9 - 18 mmol/L [facility] AST [Catalytic activity/Vol] 39 U/L High 13 - 35 U/L [facility] Bilirubin [Mass/Vol] 1.2 mg/dL 0.2 - 1.3 mg/dL [facility] Calcium [Mass/Vol] 9.5 mg/dL 8.5 - 10. 2 mg/dL [facility] Chloride [Moles/Vol] 105 mmol/L 97 - 105 mmol/L [facility] CO2 [Moles/Vol] 27 mmol/L 22 - 30 mmol/L [facility] Creatinine [Mass/Vol] 1.10 mg/dL High 0.58 - 0.96 mg/dL [facility] Estimated Glomerular Filtration Rate 62 mL/min/1.73m >=60 mL/min/1.73m [facility] Glucose [Mass/Vol] 94 mg/dL 74 - 99 mg/dL [facility] Potassium [Moles/Vol] 4.2 mmol/L 3.7 - 5.1 mmol/L [facility] Protein [Mass/Vol] 7.3 g/dL 6.3 - 8.0 g/dL [facility] Sodium [Moles/Vol] 140 mmol/L 136 - 144 mmol/L [facility] Urea nitrogen [Mass/Vol] 12 mg/dL 7 - 21 mg/dL [facility] ESR Westergren method (Bld) [Velocity]on 06-24-2023 ESR (Bld) [Velocity] 23 mm/h High 0 - 20 mm/hr [facility] ESR (Bld) [Velocity] 23 mm/h High 0-20 [facility] Comment on above: Order Comment: Speci men Type: BLOOD SPECIMEN Ordering Facility: [facility] Address: [address] [place], [place] [address], [place] [address] Performed By: #### 2 157-6, 1987-11, 80644-5 #### [facility] CLIA [id number] [address] [place] [address] [place] No Panel Informationon 06-24 [facility] XR LUMBAR 3V AP/LAT/L5-S1on 06-24-2023 XR LUMBAR [...] DEGENERATIVE CHANGES AND LEVOSCOLIOSIS SIMILAR TO PRIOR. Manager Security And Safety: MARQUEZ Transcribe Date/Time: Jun 24 2023 1:12P Dictated by : BRADY FELDMAN MD This examination was interpreted and the report reviewed and electronically signed by: BRADY FELDMAN MD on Jun 24 2023 1:14PM EST [id number] [facility] 05-12-2023 [facility] Telephone (RHEUAV) LYNETTE HAIRSTON ([id number]) 1975 F Date Time Provider Department 05/12/23 NOEMI PHAM During your visit today, we recorded the following information about you: Minh Mosqueda 05/12/2023 1:20 PM Signed Ashwini from [facility] is calling Noemi Pham MD today to clarify medication. When they were filling the enbrel, it flagged that the patient has a thrombocytopenia diagnosis. They need to clarify that the provider is aware. They cannot send the medication until they get that clarification. [phone] Patient has been identified by name and birthdate. Duration of symptoms: N/A Person calling: pharmacy: [facility] Call patient at: on cell [phone] (home) [phone] (cell) Was an appointment scheduled: No Closing statement: Results or non-symptom based questions: Thank you for calling [facility], your call will be returned within the next business day. Allison Rodríguez OCCA 05/12/2023 1:29 PM Signed Faxed [facility], patient is no longer on medication Jonelle Flores Ma 05/19/2023 9:12 AM Signed Patient calling back. States she is on Enbrel. She takes it once a week and has not had it in about 2 weeks. She is starting to get pain. She is no longer on Plaquenil. Asking for the office to call [facility] to get this straightened out. She only [...] Days Visit Type Date Time Department [facility] 06/24/2023 11:20 AM [facility] Last Ophthalmology Check for Plaquenil [...] 05/19/2023 10:06 AM Signed Spoke with patient. [facility] had held medication due to dx of thrombocytopenia. I spoke with [facility] and informed them patient was cleared from [...] acting, (LOPR (more content not included)... Normal [facility] Miscellaneouson 03-24-2023 Send Out Report Normal [facility] Comment on above: Result Comment: PERF ORMED AT [facility] [address] [place], [place] [address] (NOTE) Fat, Fecal Quantitative 72-Hour Collection (Includes Homogenization) Stripe test code 1579681 Fat, Fecal Quantitative 72-Hour 4.2 g/d (Ref Interval: 0.0-6.0) INTERPRETIVE INFORMATION: Fat, Fecal Quantitative 72-Hour Collection Access complete set of age- and/or gender-specific reference intervals for this test in the [facility] Test Directory ([employer]). This test was developed and its performance characteristics determined by [employer]. It has not been cleared or approved [...] g Performed By: #### C MIS #### [facility] [address] [place] [address] Ship Steward: Richie Alexis DO Miscellaneouson 03-22-2023 Test Name 72 Normal [facility] Comment on above: Performed By: #### C MIS #### [facility] [address] [place], [place] [id number] Ship Steward: Richie Alexis DO CNPNon 03-09-2023 [facility] Telephone (EDENV) LYNETTE HAIRSTON ([id number]) 1975 F Date Time Provider Department 03/09/23 [...] Date Reviewed: 01/14/2023 Reviewed by: Minna Mckinney, RN - Fully Assessed Prescriptions as of [...] Status:Closed by JUD HESS LPN on 03/09/23 [facility] Mary 01-28-2023 [facility] Telephone (SUNGUAV) LYNETTE HAIRSTON ([id number]) 1975 F Date Time Provider Department 01/28/23 [...] Encounter Status:Closed by BRIANDA PALOMARES on [facility]/31/23 [facility] Telephone (HYUN) LYNETTE HAIRSTON ([id number]) 1975 F Date Time Provider Department 01/26/23 NEOMI PHAM During your visit today, we recorded the following information about you: rGis Warner RN 01/26/2023 8:38 AM Signed The [...] 01/26/2023 11:13 AM Signed Message sent on [employer] regarding this . Noemi Pham MD Allergies [...] Status:Closed by NOEMI PHAM on 01/26/23 Normal [facility] ANURAG BY IFA WITH REFLEXon Nuclear Ab IF (S) [Titer] Negative Normal Negative [facility] Comment on above: Order Comment: Speci men Type: BLOOD SPECIMEN Ordering Facility: [facility] Address: [address] [place] [address] Result Comment: Anti -nuclear antibody test is used as an aid in diagnosis of systemic autoimmune diseases. Where positive and clinically warranted, follow-up using disease-specific testing is recommended. Low positive titers are not uncommon with advanced age, certain chronic infections, and malignancies among others. Test methodology: Indirect fluorescence immunoassay (IFA) using HEp-2 cells. Performed By: #### 1 761-6 #### [facility] CLIA [id number] [address] [place] [address] [place] Aldolase SerPl-cCncon 2022 Aldolase [Catalytic activity/Vol] 8.8 mU/mL High 1.5-8.1 [facility] Comment on above: Order Comment: Mert del valle Type: BLOOD SPECIMEN Ordering Facility: [facility] Address: [address] [place] [address] Result Comment: This test was developed and its performance characteristics determined by [facility]'s [facility] ([facility]). It has not been cleared or approved by the FDA. [facility] is regulated under CLIA as qualified to perform high-complexity testing. This test is used for clinical purposes. It should not be regarded as investigational or for research. Performed By: #### 1 761-6 #### [facility] CLIA [id number] [address] [place] [address] [place] CK SerPl-cCncon 01-14-2023 CK [Catalytic activity/Vol] 110 U/L Normal 42-196 [facility] Comment on above: Order Comment: Mert del valle Type: BLOOD SPECIMEN Ordering Facility: [facility] Address: [address] [place] [address] Performed By: #### 1 761-6 #### [facility] CLIA [id number] [address] [place] [address] [place] CNOVon 01-14-2023 CNOV Office Visit (HYUN ) LYNETTE HAIRSTON ([id number]) 1975 F Date Time Provider Department 01/14/23 [...] MD F/U: 6m Check following: -none MD Naseem Lopez, [facility] 01/14/2023 11:48 AM Signed Verified 80mg depomedrol injection with Paty Mckinney LPN. Allergies As of Date: 01/14/2023 Noted Allergy Reaction MELOXICAM 11/23/2016 4 - Hives Comments: METHOTREXATE 12/25/2014 8 - GI Upset Date Reviewed: 01/14/2023 Reviewed by: Minna Mckinney RN - Fully Assessed Reason for Visit: Follow Up [171] Primary Visit Diagnosis:Malar rash [R21] Order(s):HISTONE IGG LAUREANO [SQHISTN] Order #: [id number] FUTURE ANURAG BY IFA WITH REFLEX [SQANAIFR] Order #: [id number] FUTURE ANURAG BLOOD [SQANAS] Order #: [id number] FUTURE ANTI LEVY ID [SQENAID] Order #: [id number] FUTURE SED RATE WESTERGREN [SQWSR] Order #: [id number] FUTURE C-REACTIVE PROTEIN (CRP) [SQCRP] Order #: [id number] FUTURE RHEUMATOID FACTOR BL [SQRF] Order #: [id number] FUTURE CK CREATINE KINASE [SQCK] Order #: [id number] FUTURE ALDOLASE BLD [SQALD] Order #: [id number] FUTURE [] methylPREDN (more content not included)... Normal [facility] CRP SerPl-mCncon 01-14-2023 CRP [Mass/Vol] 0.6 mg/dL Normal <0.9 [facility] Comment on above: Order Comment: Mert [place] valle Type: BLOOD SPECIMEN Ordering Facility: [facility] Address: [address] [place] [address] Performed By: #### 2 157-6, 1987-5, 80301-3 #### [facility] CLIA [id number] [address] [facility] [place] [address] [place] ESR Westergren method (Bld) [Velocity]on 01-14-2023 ESR (Bld) [Velocity] 16 mm/h Normal 0-20 [facility] Comment on above: Order Comment: Mert [place] valle Type: BLOOD SPECIMEN Ordering Facility: [facility] Address: [address] [place] [address] Performed By: #### 1 761-6 #### [facility] CLIA [id number] [address] [place] [address] [place] HISTONE IGG ABYon 01-14-2023 HISTONE 0.1 Units Normal <1.0 [facility] Comment on above: Order Comment: Speci men Type: BLOOD SPECIMEN Ordering Facility: [facility] Address: [address] [place] [address] Performed By: #### 1 761-6 #### [facility] CLIA [id number] [address] [place] [address] [place] HISTONE IGG QUALITATIVE Negative Normal [facility] Comment on above: Order Comment: Mert [place] valle Type: BLOOD SPECIMEN Ordering Facility: [facility] Address: [address] [place] [address] Result Comment: Anti -histone IgG antibody test [...] required. Performed By: #### 1 761-6 #### [facility] CLIA [id number] [address] [place] [address] [place] Nuclear Ab IA Ql (S)on 01-14 ANURAG SCR QUAL Negative Normal Negative [facility] Comment on above: Order Comment: Lynni ivon Type: BLOOD SPECIMEN Ordering Facility: [facility] Address: [address] [place] [address] Result Comment: The qualitative antinuclear antibody screen test performed using the following antigens: dsDNA, Chromatin, Ribosomal P, SS-A 60, SS-A 52, SS-B, Sm, SmRNP, GARMENT PATTERNMAKER A, GARMENT PATTERNMAKER 68, Scl-70, Odalis-1, and Centromere B. Methodology: Multiplex flow immunoassay. Performed By: #### 1 761-6 #### [facility] CLIA [id number] [address] [place] [address] [place] Rheumatoid fact SerPl-aCncon 01-14-2023 Rheumatoid factor Qn [IU]/mL High <16 [facility] Comment on above: Order Comment: Speci men Type: BLOOD SPECIMEN Ordering Facility: [facility] Address: [address] [place] [id number] Performed By: #### 1 1572-5 #### [facility] CLIA [id number] [address] [place] [id number] [facility] [place] CNOVon 12-24-2022 CNOV Office Visit (NENMMN ) LYNETTE HAIRSTON ([id number]) 1975 F Date Time Provider Department 12/24/22 1:00 PM LIZ CONNOLLY During your visit today, we recorded the following information about you: Pulse Blood pressure 106/minute 121/84 Liz Connolly MD 01/04/2023 10:43 AM Signed S[facility] Note- Established patient Provider: Liz Connolly [...] that she has been following with her creative writing teacher with every 6 monthly appointments to monitor [...] There is also been weight gain since [facility] (going from 223 pounds to about [...] current facility-administ (more content not included)... Normal [facility] EMG(NEURO/NI)on 12-24-2022 [facility] Surgical Pathologyon 023 Surgical Pathology (NOTE) Path Number: [id number] -- Diagnosis -- Colon, random biopsies: Normal colonic mucosa. Deshaun Mcneil Electronically Signed Out rdd/12/21/2022 Clinical Information Pre-Op Diagnosis: ENCOPRESIS WITHOUT CONSTIPATION AND OVERFLOW INCONTINENCE Operative Findings: RANDOM COLON BIOPSIES TO CHECK FOR MICROSCOPIC COLITIS Operation Performed: COLONOSCOPY WITH BIOPSY cd Source of Specimen A: RANDOM COLON BXS TO CHECK FOR MICROSCOPIC COLITIS Gross Description LYNETTE HAIRSTON RANDOM COLON BIOPSIES Received in formalin are [...] is no dysplasia or malignancy. Processing Lab: [facility] [address] [place] [address] Interpretation Performed at [facility] [address] [place], [place] SURGICAL PATHOLOGY CONSULTATION Patient Name: LYNETTE HAIRSTON. Med Rec: [id number] [facility] ANATOMIC PATHOLOGY [address] [place], [place] [address] [facility] Comment on above: Performed By: #### P PPVS #### [address] [id number] Ship Steward: MD Mary Velazquez 12-01-2022 [facility] Telephone (EDENV) LYNETTE HAIRSTON ([id number]) 1975 F Date Time Provider Department 12/01/22 [...] Fully Assessed Reason for Visit: Insurance Authorization [[id number]] Cmt: Enbrel Prescriptions as of 12/01/2022 - [...] Status:Closed by INOCENCIA BUI LPN on 12/01/22 [facility] Mary 11-15-2022 [facility] Telephone (HYUN) LYNETTE HAIRSTON ([id number]) 1975 F Date Time Provider Department 11/15/22 NOEMI PHAM During your visit today, we recorded the following information about you: Noemi Pham MD 11/15/2022 1:23 PM Signed Please tell her I received labs from [facility] and her cpk and aldolase returned [...] Status:Closed by NOEMI PHAM on 11/15/22 Normal [facility] Orders Onlyon 10-28-2022 Orders Only [id number] Minh Hairston 1975 [facility] Provider Department Center 10/28/2022 CRISTHIAN MARIE [facility] Family History Family Status - Relation Status Age at Daughter Notes: pancreatic insuffiency Son Notes: Crohns Normal [facility] Labon 09-08-2022 Lab [id number] Minh Hairston 1975 Provider Department Center 09/08/[address] [place] [address] [facility] Medical Pavjosé miguel Family History Family Status - Relation Status Age at Daughter Notes: pancreatic insuffiency Son Notes: Crohns Normal [facility] Office Visiton 09-08-2022 Follow-up visit [id number] Minh Hairston 1975 Provider Department Center 09/08/2022 CRISTHIAN MARIE MP [facility] Family History Family Status - Relation Status Age at Daughter Notes: pancreatic insuffiency Son Notes: Crohns Level of Service:28161 MD OFFICE/OUTPATIENT ESTABLISHED MOD MDM 30-39 MIN Reason for Visit and Comments: Follow-up [418212] Diarrhea [35] Normal [facility] PANCREATIC ELASTASE, FECALon 09-08-2022 PANCREATIC ELASTASE, FECAL >800 Normal >=100 [facility] Comment on above: Result Comment: REFE RENCE INTERVAL: Pancreatic Elastase Fecal by Immunoassay Less than 100 ug/g............Severe insufficiency 100 - 199 ug/g................Moderate insufficiency 200 ug/g or greater...........Normal INTERPRETIVE INFORMATION: Pancreatic Elastase Fecal by Immunoassay Reference intervals do not apply for infants less than one month old. Performed by [facility], [address] [place] [address] www.[employer], Vito Arteaga MD, PHD, Lab. Director Performed By: #### L AB979 ####[facility] (TAMMIE)[address] [place] [address] Aldolase SerPl-cCncon 2022 Aldolase [Catalytic activity/Vol] 9.9 mU/mL High 1.5-8.1 [facility] Comment on above: Order Comment: Speci men Type: BLOOD SPECIMEN Ordering Facility: [facility] Address: [address] [place] [place] [address] Result Comment: This test was developed and its performance characteristics determined by [facility] ([facility]). It has not been cleared or approved by the FDA. [facility] is regulated under CLIA as qualified to perform high-complexity testing. This test is used for clinical purposes. It should not be regarded as investigational or for research. Performed By: #### 1 761-6 #### [facility] CLIA [id number] [address] [place] [address] [place] C-REACTIVE PROTEIN (CRP)on 0 08-11-2022 CRP [Mass/Vol] 0.8 mg/dL <0.9 mg/dL [facility] CBC panel Auto (Bld)on 08-11 Erythrocyte distribution width (RBC) [Ratio] 11.7 % Normal 11.5-15.0 [facility] Comment on above: Order Comment: Mert del valle Type: BLOOD SPECIMEN Ordering Facility: [facility] Address: [address] [address] Performed By: #### 1 761-6 #### [facility] CLIA [id number] [address] [place] [address] [place] Hematocrit (Bld) [Volume fraction] 44.1 % Normal 36.0-46.0 [facility] Comment on above: Order Comment: Speci men Type: BLOOD SPECIMEN Ordering Facility: [facility] Address: [address] [place], [place] [address] Performed By: #### 1 761-6 #### [facility] CLIA [id number] [address] OF [facility] Hemoglobin (Bld) [Mass/Vol] 15.2 g/dL Normal 11.5-15.5 [facility] Comment on above: Order Comment: Speci men Type: BLOOD SPECIMEN Ordering Facility: [facility] Address: [address] Performed By: #### 1 761-6 #### [facility] CLIA [id number] [address] [place] [address] [place] MCH (RBC) [Entitic mass] 31.7 pg Normal 26.0-34.0 [facility] Comment on above: Order Comment: Speci men Type: BLOOD SPECIMEN Ordering Facility: [facility] Address: [address] [place], [place] [address] Performed By: #### 1 761-6 #### [facility] CLIA [id number] [address] [place] [address] [place] MCHC (RBC) [Mass/Vol] 34.5 g/dL Normal 30.5-36.0 [facility] Comment on above: Order Comment: Speci men Type: BLOOD SPECIMEN Ordering Facility: [facility] Address: [address] [place], [place] [address] Performed By: #### 1 761-6 #### [facility] CLIA [id number] [address] [place] MCV (RBC) [Entitic vol] 92.1 fL Normal 80.0-100.0 [facility] Comment on above: Order Comment: Speci men Type: BLOOD SPECIMEN Ordering Facility: [facility] Address: [address] [place], [place] [address] Performed By: #### 1 761-6 #### [facility] CLIA [id number] [address] [place] [address] [place] Nucleated RBC (Bld) [#/Vol] 10*3/uL Normal <0.01 [facility] Comment on above: Order Comment: Speci men Type: BLOOD SPECIMEN Ordering Facility: [facility] Address: [address] [place], [place] [address] Performed By: #### 1 761-6 #### [facility] CLIA [id number] [address] [place] [address] [place] Platelet mean volume (Bld) [Entitic vol] 11.0 fL Normal 9.0-12.7 [facility] Comment on above: Order Comment: Speci men Type: BLOOD SPECIMEN Ordering Facility: [facility] Address: [address] [place], [place] [address] Performed By: #### 1 761-6 #### [facility] CLIA [id number] [address] [place] [address] [place] Platelets (Bld) [#/Vol] 205 10*3/uL Normal 150-400 [facility] Comment on above: Order Comment: Speci men Type: BLOOD SPECIMEN Ordering Facility: [facility] Address: [address] [place], [place] [address] Performed By: #### 1 761-6 #### [facility] CLIA [id number] [address] [place] [address] [place] RBC (Bld) [#/Vol] 4.79 10*6/uL Normal 3.90-5.20 [facility] Comment on above: Order Comment: Speci men Type: BLOOD SPECIMEN Ordering Facility: [facility] Address: [address] [place], [place] [address] Performed By: #### 1 761-6 #### [facility] CLIA [id number] [address] [place] [address] [place] WBC (Bld) [#/Vol] 9.49 10*3/uL Normal 3.70-11.00 [facility] Comment on above: Order Comment: Speci men Type: BLOOD SPECIMEN Ordering Facility: [facility] Address: [address] Performed By: #### 1 761-6 #### [facility] CLIA [id number] [address] [facility] [address] STATES OF [facility] Erythrocyte distribution width (RBC) [Ratio] 11.7 % 11.5 - 15.0 % [facility] Hematocrit (Bld) [Volume fraction] 44.1 % 36.0 - 46.0 % [facility] Hemoglobin (Bld) [Mass/Vol] 15.2 g/dL 11.5 - 15.5 g/dL [facility] MCH (RBC) [Entitic mass] 31.7 pg 26.0 - 34.0 pg [facility] MCHC (RBC) [Mass/Vol] 34.5 g/dL 30.5 - 36.0 g/dL [facility] MCV (RBC) [Entitic vol] 92.1 fL 80.0 - 100.0 fL [facility] Nucleated RBC (Bld) [#/Vol] <0.01 k/uL [facility] Platelet mean volume (Bld) [Entitic vol] 11.0 fL 9.0 - 12.7 fL [facility] Platelets (Bld) [#/Vol] 205 10*3/uL 150 - 400 k/uL [facility] RBC (Bld) [#/Vol] 4.79 10*6/uL 3.90 - 5.2 0 m/uL [facility] WBC (Bld) [#/Vol] 9.49 10*3/uL 3.70 - 11. 00 k/uL [facility] CK CREATINE KINASEon 023 CK [Catalytic activity/Vol] 115 U/L 42 - 196 U/L [facility] CK SerPl-cCncon 08-11-2022 CK [Catalytic activity/Vol] 115 U/L Normal 42-196 [facility] Comment on above: Order Comment: Speci men Type: BLOOD SPECIMEN Ordering Facility: [facility] Address: [address] [place] [address] Performed By: #### 1 761-6 #### [facility] CLIA [id number] [address] [place] [id number] [place] CNOVon 08-11-2022 CNOV Office Visit (HYUN ) LYNETTE HAIRSTON ([id number]) 1975 F Date Time Provider Department 08/11/22 [...] 6m Check following: -none MD Inocencia Lopez [facility] 08/11/2022 10:21 AM Signed Methylprednisolone injection verified. 80mg. Jud Hess [facility] 08/11/2022 11:22 AM Signed Patient given Depomedrol 80 mg IM in the lef (more content not included)... Normal [facility] CRP SerPl-mCncon 08-11-2022 CRP [Mass/Vol] 0.8 mg/dL Normal <0.9 [facility] Comment on above: Order Comment: Mert del valle Type: BLOOD SPECIMEN Ordering Facility: [facility] Address: [address] [place] [address] Performed By: #### 2 4323-8, 1987-11 #### [facility] CLIA [id number] [address] [facility] [place] [address] [place] Comprehensive metabolic 2000 panelon 08-11-2022 Albumin [Mass/Vol] 4.6 g/dL Normal 3.9-4.9 [facility] Comment on above: Order Comment: Mert del valle Type: BLOOD SPECIMEN Ordering Facility: [facility] Address: [address] Performed By: #### 2 4323-02, 1987-11 #### [facility] CLIA [id number] [address] [place] [address] [place] ALP [Catalytic activity/Vol] 44 U/L Normal 34-123 [facility] Comment on above: Order Comment: Speci men Type: BLOOD SPECIMEN Ordering Facility: [facility] Address: [address] Performed By: #### 2 4323-02, 1987-11 #### [facility] CLIA [id number] [address] [place] [address] [place] ALT [Catalytic activity/Vol] 32 U/L Normal 7-38 [facility] Comment on above: Order Comment: Speci men Type: BLOOD SPECIMEN Ordering Facility: [facility] Address: [address] [place] [address] Performed By: #### 2 4323-02, 1987-11 #### [facility] CLIA [id number] [address] [place] [address] [place] Anion gap [Moles/Vol] 9 mmol/L Normal 9-18 [facility] Comment on above: Order Comment: Speci men Type: BLOOD SPECIMEN Ordering Facility: [facility] Address: [address] Performed By: #### 2 4323-02, 1987-11 #### [facility] CLIA [id number] [address] [facility] [place] [place] [address] [place] AST [Catalytic activity/Vol] 26 U/L Normal 13-35 [facility] Comment on above: Order Comment: Speci men Type: BLOOD SPECIMEN Ordering Facility: [facility] Address: [address] Performed By: #### 2 4323-02, 1987-11 #### [facility] CLIA [id number] [address] [place] [address] [place] Bilirubin [Mass/Vol] 0.9 mg/dL Normal 0.2-1.3 [facility] Comment on above: Order Comment: Speci men Type: BLOOD SPECIMEN Ordering Facility: [facility] Address: [address] Performed By: #### 2 4323-02, 1987-11 #### [facility] CLIA [id number] [address] [place] [address] [place] Calcium [Mass/Vol] 10.5 mg/dL High 8.5-10.2 [facility] Comment on above: Order Comment: Speci men Type: BLOOD SPECIMEN Ordering Facility: [facility] Address: [address] Performed By: #### 2 4323-02, 1987-11 #### [facility] CLIA [id number] [address] [place] [address] [place] Chloride [Moles/Vol] 102 mmol/L Normal 97-105 [facility] Comment on above: Order Comment: Speci men Type: BLOOD SPECIMEN Ordering Facility: [facility] Address: [address] [place] [address] Performed By: #### 2 4323-02, 1987-11 #### [facility] CLIA [id number] [address] [place] [address] [place] CO2 [Moles/Vol] 29 mmol/L Normal 22-30 [facility] Comment on above: Order Comment: Speci men Type: BLOOD SPECIMEN Ordering Facility: [facility] Address: [address] [place] [address] Performed By: #### 2 4323-02, 1987-11 #### [facility] CLIA [id number] [address] [place] [address] [place] Creatinine [Mass/Vol] 0.93 mg/dL Normal 0.58-0.96 [facility] Comment on above: Order Comment: Speci men Type: BLOOD SPECIMEN Ordering Facility: [facility] Address: [address] [place] [address] Performed By: #### 2 4323-02, 1987-11 #### [facility] CLIA [id number] [address] [facility] [place] [place] [address] [place] ESTIMATED GLOMERULAR FILTRATION RATE 76 mL/min/1.73m??? Normal >=60 [facility] Comment on above: Order Comment: Mert del valle Type: BLOOD SPECIMEN Ordering Facility: [facility] Address: [address] [place] [address] Result Comment: Flores mated Glomerular Filtration Rate [...] reflect actual GFR. Performed By: #### 2 4323-8, 1987-11 #### [facility] CLIA [id number] [address] [facility] [place] [address] [place] Glucose [Mass/Vol] 97 mg/dL Normal 74-99 [facility] Comment on above: Order Comment: Mert del valle Type: BLOOD SPECIMEN Ordering Facility: [facility] Address: [address] [place] [address] Result Comment: The [place] Diabetes Association (ADA) provides guidance for cutoff [...] Standards of Medical Care in Diabetes 2016, [place] Diabetes Association. Diabetes Care. 2016.39(Suppl 1). Performed By: #### 2 4323-8, 1987-11 #### [facility] CLIA [id number] [address] [facility] [place] [address] [place] Potassium [Moles/Vol] 4.7 mmol/L Normal 3.7-5.1 [facility] Comment on above: Order Comment: Speci men Type: BLOOD SPECIMEN Ordering Facility: [facility] Address: [address] [address] Performed By: #### 2 4323-02, 1987-11 #### [facility] CLIA [id number] [address] [place] [address] [place] Protein [Mass/Vol] 7.6 g/dL Normal 6.3-8.0 [facility] Comment on above: Order Comment: Speci men Type: BLOOD SPECIMEN Ordering Facility: [facility] Address: [address] [address] Performed By: #### 2 4323-02, 1987-11 #### [facility] CLIA [id number] [address] [place] [address] [place] Sodium [Moles/Vol] 140 mmol/L Normal 136-144 [facility] Comment on above: Order Comment: Speci men Type: BLOOD SPECIMEN Ordering Facility: [facility] Address: [address] Performed By: #### 2 4323-02, 1987-11 #### [facility] CLIA [id number] [address] [place] [address] [place] Urea nitrogen [Mass/Vol] 15 mg/dL Normal 7-21 [facility] Comment on above: Order Comment: Speci men Type: BLOOD SPECIMEN Ordering Facility: [facility] Address: [address] Performed By: #### 2 4323-02, 1987-11 #### [facility] CLIA [id number] [address] [place] [address] [place] Albumin [Mass/Vol] 4.6 g/dL 3.9 - 4.9 g/dL [facility] ALP [Catalytic activity/Vol] 44 U/L 34 - 123 U/L [facility] ALT [Catalytic activity/Vol] 32 U/L 7 - 38 U/L [facility] Anion gap [Moles/Vol] 9 mmol/L 9 - 18 mmol/L [facility] AST [Catalytic activity/Vol] 26 U/L 13 - 35 U/L [facility] Bilirubin [Mass/Vol] 0.9 mg/dL 0.2 - 1.3 mg/dL [facility] Calcium [Mass/Vol] 10.5 mg/dL High 8.5 - 10. 2 mg/dL [facility] Chloride [Moles/Vol] 102 mmol/L 97 - 105 mmol/L [facility] CO2 [Moles/Vol] 29 mmol/L 22 - 30 mmol/L [facility] Creatinine [Mass/Vol] 0.93 mg/dL 0.58 - 0.96 mg/dL [facility] Estimated Glomerular Filtration Rate 76 mL/min/1.73m >=60 mL/min/1.73m [facility] Glucose [Mass/Vol] 97 mg/dL 74 - 99 mg/dL [facility] Potassium [Moles/Vol] 4.7 mmol/L 3.7 - 5.1 mmol/L [facility] Protein [Mass/Vol] 7.6 g/dL 6.3 - 8.0 g/dL [facility] Sodium [Moles/Vol] 140 mmol/L 136 - 144 mmol/L [facility] Urea nitrogen [Mass/Vol] 15 mg/dL 7 - 21 mg/dL [facility] ESR Westergren method (Bld) [Velocity]on 08-11-2022 ESR (Bld) [Velocity] 23 mm/h High 0 - 20 mm/hr [facility] ESR (Bld) [Velocity] 23 mm/h High 0-20 [facility] Comment on above: Order Comment: Speci men Type: BLOOD SPECIMEN Ordering Facility: [facility] Address: [address] [place] [address] Performed By: #### 1 761-6 #### [facility] CLIA [id number] [address] [facility] [place] [address] [place] XR elbow RT 2Von 07-30-2022 XR elbow RT 2V [facility] [address] [place] [address] [place] [address] XRay Report Signed Patient: Lynette Hairston MR#: [id number] 46 : 1975 Acct:[id number] Age/Sex: 47 / F ADM Date: 07/30/22 Loc: [facility] Room: Type: [facility] Attending Dr: Jud Monson NP-C Copies to: [...] Martines Jr., D.O.07/30/2022 12:09 PM Dictation Location: [place] [address] Transcribed By: [facility] 07/30/22 1209 Dictated By: Jeremie Martines Jr, DO 07/30/22 1209 Signed By: 07/30/22 1209 [facility] Orders Onlyon 07-15-2022 Orders Only [id number] Minh Hairston 1975 F Date Provider Department Center 07/15/2022 CRISTHIAN MARIE MP [facility] No family history on file [facility] Orders Onlyon 07-09-2022 Orders Only [id number] Minh Hairston 1975 F Date Provider Department Center 07/09/2022 CRISTHIAN MARIE MP [facility] Medical [facility]avi No family history on file [facility] Orders Onlyon 06-28-2022 Orders Only [id number] Minh Hairston 1975 F Date Provider Department Center 06/28/2022 CRISTHIAN MARIE MP GI Medical Pavi No family history on file [facility] 36on 06-24-2022 36 Pt calling wanting t o know what the next steps are now that her labs and stools are back. She will be having [employer] set up for your response to her. [facility] Orders Onlyon 06-16-2022 Orders Only [id number] Minh Hairston 1975 Date Provider Department Center 06/16/2022 CRISTHIAN MARIE MP Medical Pavi No family history on file [facility] Orders Onlyon 06-07-2022 Orders Only [id number] Minh Hairston 1975 Date Provider Department Center 06/07/2022 CRISTHIAN MARIE MP Medical Pavi No family history on file [facility] 36on 05-31-2022 36 Patient called with concerns over her platelets. Patient states that she had labs drawn recently outside of [facility] and her platelets were at 96. Patient is concerned regarding this and is inquiring if there is anything she should do. I explained to the patient that we do not have these results in the system for her, however, she is going to call and have them faxed to us so you can review them. Please advise. [facility] 37on 05-26-2022 37 Take fiber supplemen ts along with plenty of water. Supplements include: Psyllium (sample brand name: Metamucil) Methylcellulose (sample brand name: Citrucel) Calcium polycarbophil (sample brand name: FiberCon) Wheat dextrin (sample brand name: Benefiber) Start slow with ??? Tablespoon every other day, then gradually increase to 1-2 tablespoons/day. [facility] Office Visiton 05-26-2022 Follow-up visit [id number] Minh Hairston 1975 Provider Department Center 05/26/2022 CRISTHIAN MARIE MP Medical Pavi No family history on file Level of Service:85613 MD OFFICE/OUTPATIENT ESTABLISHED MOD MDM 30-39 MIN Reason for Visit and Comments: Diarrhea [35] Follow-up [000093] - Patient states she has randomly lost control of her bowels in the recent weeks. [facility] XR CERVICAL SPINE (2-3 VIEWS )on [...] Boubacar Louis MD 02/07/21 Final result Normal [facility] XR CERVICAL SPINE (2-3 VIEWS )Ordered By: Garfield Restrepo on 02-07-2021 No acute osseous abnormality. [employer] Phone: EXAMINATION: XRAY VIEWS OF THE CERVICAL SPINE 02/07/2021 12:33 pm COMPARISON: None. HISTORY: ORDERING SYSTEM PROVIDED HISTORY: right arm pain TECHNOLOGIST PROVIDED HISTORY: right arm pain Reason for Exam: RUE pain Acuity: Chronic Type of Exam: Initial FINDINGS: Vertebral body height and alignment are maintained. There are minimal degenerative changes. There is no evidence of fracture or malalignment. [employer] Phone: Rashid, pn Incoming Radiant Results From [email or web address] - 02/07/2021 1:12 PM EDT EXAMINATION: XRAY [...] or malalignment. IMPRESSION: No acute osseous abnormality. [employer] Phone: [employer] Phone: Basic Metab w/rfx MGon 01-19 (cont.) Normal [facility] Comment on above: Result Comment: Aver age GFR for 40-49 years old: 99 mL/min/1.73sq m Chronic Kidney Disease: <60 mL/min/1.73sq m Kidney failure: <15 mL/min/1.73sq m eGFR calculated using average adult body mass. Additional eGFR calculator available at: http://www.Sidecar.me.Acsendo/multiple_crcl_2011.htm Performed By: #### C DP, BMPX #### [place] [address] Ship Steward: Brady Chan MD Anion gap [Moles/Vol] 8 mmol/L Low 9-17 [facility] Comment on above: Performed By: #### C DP, BMPX #### [place] [address] Ship Steward: Brady Chan MD Calcium [Mass/Vol] 9.4 mg/dL Normal 8.6-10.4 [facility] Comment on above: Performed By: #### C DP, BMPX #### [place] [address] Ship Steward: Brady Chan MD Chloride [Moles/Vol] 103 mmol/L Normal 98-107 [facility] Comment on above: Performed By: #### C DP, BMPX #### [place] [address] Ship Steward: Brady Chan MD CO2 [Moles/Vol] 27 mmol/L Normal 20-31 [facility] Comment on above: Performed By: #### C DP, BMPX #### [place] [address] Ship Steward: Brady Chan MD Creatinine [Mass/Vol] 0.73 mg/dL Normal 0.50-0.90 [facility] Comment on above: Performed By: #### C DP, BMPX #### [place] [address] Ship Steward: Brady Chan MD GFR, Amer >60 Normal >60 [facility] Comment on above: Performed By: #### C DP, BMPX #### [place] [address] Ship Steward: Brady Chan MD GFR,non Amer >60 Normal >60 [facility] Comment on above: Performed By: #### C DP, BMPX #### [place] [address] Ship Steward: Brady Chan MD Glucose [Mass/Vol] 107 mg/dL High 70-99 [facility] Comment on above: Performed By: #### C DP, BMPX #### [place] [address] Ship Steward: Brady Chan MD Potassium [Moles/Vol] 3.8 mmol/L Normal 3.7-5.3 [facility] Comment on above: Performed By: #### C DP, BMPX #### [place] [address] Ship Steward: Brady Chan MD Sodium [Moles/Vol] 138 mmol/L Normal 135-144 [facility] Comment on above: Performed By: #### C DP, BMPX #### [place] [address] Ship Steward: Brady Chan MD Urea nitrogen [Mass/Vol] 11 mg/dL Normal 6-20 [facility] Comment on above: Performed By: #### C DP, BMPX #### [place] [id number] Ship Steward: Brady Chan MD BUN/CRE Ratio NOT REPORTED Normal 9-20 [facility] Comment on above: Performed By: #### C DP, BMPX #### [place] [address] Ship Steward: Brady Chan MD Staging: NOT REPORTED Normal [facility] Comment on above: Performed By: #### C DP, BMPX #### [place] [address] Ship Steward: Brady Chan MD CBC with Diffon 01-19-2021 Abs. Basophil 0.10 k/uL Normal 0.0-0.2 [facility] Comment on above: Performed By: #### C DP, BMPX #### [place] [address] Ship Steward: Brady Chan MD Abs.Neutrophil (Seg) 4.30 k/uL Normal 1.8-7.7 [facility] Comment on above: Performed By: #### C DP, BMPX #### [place] [address] Ship Steward: Brady Chan MD Basophils/100 WBC (Bld) 1 % Normal 0-2 [facility] Comment on above: Performed By: #### C DP, BMPX #### [place] [address] Ship Steward: Brady Chan MD Eosinophils (Bld) [#/Vol] 0.10 10*3/uL Normal 0.0-0.4 [facility] Comment on above: Performed By: #### C DP, BMPX #### [place] [address] Ship Steward: Brady Chan MD Eosinophils/100 WBC (Bld) 2 % Normal 1-4 [facility] Comment on above: Performed By: #### C DP, BMPX #### [place] [address] Ship Steward: Brady Chan MD Erythrocyte distribution width (RBC) [Ratio] 13.0 % Normal 12.5-15.4 [facility] Comment on above: Performed By: #### C DP, BMPX #### [place] [address] Ship Steward: Brady Chan MD Hematocrit (Bld) [Volume fraction] 41.3 % Normal 36-46 [facility] Comment on above: Performed By: #### C DP, BMPX #### [place] [address] Ship Steward: Brady Chan MD Hemoglobin (Bld) [Mass/Vol] 14.1 g/dL Normal 12.0-16.0 [facility] Comment on above: Performed By: #### C DP, BMPX #### [place] [address] Ship Steward: Brady Chan MD Lymphocytes (Bld) [#/Vol] 3.10 10*3/uL Normal 1.0-4.8 [facility] Comment on above: Performed By: #### C DP, BMPX #### [place] [address] Ship Steward: Brady Chan MD Lymphocytes/100 WBC (Bld) 37 % Normal 24-44 [facility] Comment on above: Performed By: #### C DP, BMPX #### [place] [address] Ship Steward: Brady Chan MD MCH (RBC) [Entitic mass] 31.2 pg Normal 26-34 [facility] Comment on above: Performed By: #### C DP, BMPX #### [place] [address] Ship Steward: Brady Chan MD MCHC (RBC) [Mass/Vol] 34.2 g/dL Normal 31-37 [facility] Comment on above: Performed By: #### C DP, BMPX #### [place] [id number] Ship Steward: Brady Chan MD MCV (RBC) [Entitic vol] 91.1 fL Normal 80-100 [facility] Comment on above: Performed By: #### C DP, BMPX #### [place] [address] Ship Steward: Brady Chan MD Monocytes (Bld) [#/Vol] 0.70 10*3/uL Normal 0.1-1.2 [facility] Comment on above: Performed By: #### C DP, BMPX #### [place] [address] Ship Steward: Brady Chan MD Monocytes/100 WBC (Bld) 8 % Normal 2-11 [facility] Comment on above: Performed By: #### C DP, BMPX #### [place] [phone] Ship Steward: Brady Chan MD Neutrophil (Seg) 52 % Normal 36-66 [facility] Comment on above: Performed By: #### C DP, BMPX #### [address] [id number] Ship Steward: Brady Chan MD Platelet mean volume (Bld) [Entitic vol] 8.4 fL Normal 6.0-12.0 [facility] Comment on above: Performed By: #### C DP, BMPX #### [place] [address] Ship Steward: Brady Chan MD Platelets (Bld) [#/Vol] 199 10*3/uL Normal 140-450 [facility] Comment on above: Performed By: #### C DP, BMPX #### [place] [address] Ship Steward: Brady Chan MD RBC (Bld) [#/Vol] 4.54 10*6/uL Normal 4.0-5.2 [facility] Comment on above: Performed By: #### C DP, BMPX #### [place] [address] Ship Steward: Brady Chan MD WBC (Bld) [#/Vol] 8.2 10*3/uL Normal 3.5-11.0 [facility] Comment on above: Performed By: #### C DP, BMPX #### [place] [address] Ship Steward: Brady Chan MD Abs.Imm.Granulocyte NOT REPORTED Normal 0.00-0.30 [facility] Comment on above: Performed By: #### C DP, BMPX #### [place] [address] Ship Steward: Brady Chan MD Auto Diff Performed NOT REPORTED Normal [facility] Comment on above: Performed By: #### C DP, BMPX #### [place] [address] Ship Steward: Brady Chan MD Immature Granulocyte NOT REPORTED Normal 0 [facility] Comment on above: Performed By: #### C DP, BMPX #### [facility] [id number] [place] [address] Ship Steward: Brady Chan MD NRBC Automated NOT REPORTED Normal [facility] Comment on above: Performed By: #### C DP, BMPX #### [address] [address] Ship Steward: Brady Chan MD Platelet Estimate NOT REPORTED Normal [facility] Comment on above: Performed By: #### C DP, BMPX #### [place] [address] Ship Steward: Brady Chan MD RBC morphology finding Nom (Bld) NOT REPORTED Normal [facility] Comment on above: Performed By: #### C DP, BMPX #### [place] [address] Ship Steward: Brady Chan MD WBC Morphology NOT REPORTED Normal [facility] Comment on above: Performed By: #### C DP, BMPX #### [place] [address] Ship Steward: Brady Chan MD US DUP LOWER EXTREMITY [...] Gold Honeycutt MD 01/19/21 Final result Normal [facility] ABDOMEN 1VWon 08-08-2020 ABDOMEN 1VW [facility] Department of Radiology [address] [place] [id number] ======== Patient Name: LYNETTE PRINCE : 1975 Sex: F Age: Race: NA Pt. Location: 260 Patient Status: O Ordered Date: 08/08/2020 10:50:00 AM Completed Date: 08/08/2020 10:47 AM Requesting Provider: CRISTHIAN FALCON Attending Provider: CRISTHIAN FALCON Report Copy To: Signs & Symptoms: K59.00 Constipation, unspecified I10 History: Cheryl Comments: please evaluate for fecal over load [...] projections. Electronically signed: Brady Shen. Transcribed by: [email or web address], User Resident: Electronically Signed by: BRADY SHEN @ 08/08/2020 03:15 PM Normal [facility] Comment on above: Order Comment: pleas e evaluate for fecal over load AFP TUMOR MARKER [id number] AFP TUMOR MARKER 2 ng/mL Normal 0-9 [facility] Comment on above: Result Comment: INTE RPRETIVE INFORMATION: Alpha Fetoprotein Tumor Marker The Malorie Condon Access DxI AFP method is used. Results [...] reference intervals for this test in the [facility] ([employer]). Performed By: [facility] [address] [place] [address] Station Repairer: Radha Horton MD ANAon 08-08-2020 Nuclear Ab IF (S) [Titer] <1:40 Normal <1:40,1:40 [facility] Comment on above: Performed By: #### 1 4102, 06951 #### [facility] [address] [place] [address], [facility] BASIC METABOLIC PANELon 07-25 Calcium [Mass/Vol] 9.3 mg/dL Normal 8.6-10.3 [facility] Comment on above: Performed By: #### 9 1409, 49035 #### [facility] [address] [place] [address], [place] Chloride [Moles/Vol] 104 mmol/L Normal 98-107 [facility] Comment on above: Performed By: #### 9 9908, 12275 #### [facility] [address] [place] [address], [place] CO2 [Moles/Vol] 25 mmol/L Normal 21-31 [facility] Comment on above: Performed By: #### 9 9908, 90144 #### [facility] [address] [place] [address], [place] Creatinine [Mass/Vol] 0.93 mg/dL Normal 0.60-1.20 [facility] Comment on above: Performed By: #### 9 9908, 95474 #### [facility] [address] [place] [address], [place] GFR/1.73 sq M predicted among blacks MDRD (S/P/Bld) [Vol rate/Area] mL/min/{1.73_m2} Normal >60 [facility] Comment on above: Performed By: #### 9 9908, 08363 #### [facility] [address] [place] [address], [place] GFR/1.73 sq M predicted among non-blacks MDRD (S/P/Bld) [Vol rate/Area] mL/min/{1.73_m2} Normal >60 [facility] Comment on above: Performed By: #### 9 9908, 33292 #### [facility] [address] [place] [address], [place] Glucose [Mass/Vol] 97 mg/dL Normal 70-100 [facility] Comment on above: Performed By: #### 9 9908, 02143 #### [facility] [address] [place] [address], [place] Potassium [Moles/Vol] 3.9 mmol/L Normal 3.5-5.1 [facility] Comment on above: Performed By: #### 9 9909, 81145 #### [facility] [address] [facility] [address], [facility] Sodium [Moles/Vol] 137 mmol/L Normal 136-145 [facility] Comment on above: Performed By: #### 9 99, [address]140 #### [facility] [address] [facility]. [address] Urea nitrogen [Mass/Vol] 15 mg/dL Normal 7-25 [facility] Comment on above: Performed By: #### 9 9909, 61266 #### [facility] [address] [facility] [address], [facility] CBC W/DIFFon 08-08-2020 ABS BASOPHILS 0.1 10*3/uL Normal 0.0-0.2 [facility] Comment on above: Performed By: #### 5 0103 #### [facility] [address] [facility] [address], [facility] ABS IMM GRANS 0.0 10*3/uL Normal 0.0-0.2 [facility] Comment on above: Performed By: #### 5 0103 #### [facility] [address] ABS NEUTROPHILS 4.4 10*3/uL Normal 1.6-7.6 [facility] Comment on above: Performed By: #### 5 0103 #### [facility] [address] [facility] [address], [facility] Basophils/100 WBC (Bld) 0.9 % Normal 0.0-1.0 [facility] Comment on above: Performed By: #### 5 0103 #### [facility] [address] [facility] [place] [address], [facility] Eosinophils (Bld) [#/Vol] 0.1 10*3/uL Normal 0.0-0.5 [facility] Comment on above: Performed By: #### 5 0103 #### [facility] [address] [place] [address], [facility] Eosinophils/100 WBC (Bld) 1.1 % Normal 0.0-6.0 [facility] Comment on above: Performed By: #### 5 0103 #### [facility] [address] [place] [address], [facility] Erythrocyte distribution width (RBC) [Ratio] 13.0 % Normal 11.5-15.0 [facility] Comment on above: Performed By: #### 5 0103 #### [facility] [address] [place] [address], [facility] Hematocrit (Bld) [Volume fraction] 42.8 % Normal 36.0-45.0 [facility] Comment on above: Performed By: #### 5 0103 #### [facility] [address] [facility] [address], [facility] Hemoglobin (Bld) [Mass/Vol] 14.7 g/dL Normal 12.0-15.0 [facility] Comment on above: Performed By: #### 5 0103 #### [facility] [address] [facility] [place] [address], [facility] IMMATURE GRANS 0.3 % Normal 0.0-1.0 [facility] Comment on above: Performed By: #### 5 0103 #### [facility] [address] [place] [address], [facility] Lymphocytes (Bld) [#/Vol] 2.2 10*3/uL Normal 1.2-4.0 [facility] Comment on above: Performed By: #### 5 0103 #### [facility] [address] [place] [id number], [facility] Lymphocytes/100 WBC (Bld) 30.0 % Normal 20.0-45.0 [facility] Comment on above: Performed By: #### 5 0103 #### [facility] [address] [place] [address], [facility] MCH (RBC) [Entitic mass] 31.4 pg Normal 27.0-33.0 [facility] Comment on above: Performed By: #### 5 0103 #### [facility] [address] [facility] [place] [address], [facility] MCHC (RBC) [Mass/Vol] 34.3 g/dL Normal 32.0-35.0 [facility] Comment on above: Performed By: #### 5 0103 #### [facility] [address] [facility] [place] [address], [facility] MCV (RBC) [Entitic vol] 91.5 fL Normal 82.0-98.0 [facility] Comment on above: Performed By: #### 5 0103 #### [facility] [address] [facility] [place] [address], [facility] Monocytes (Bld) [#/Vol] 0.6 10*3/uL Normal 0.1-1.0 [facility] Comment on above: Performed By: #### 5 0103 #### [facility] [address] [facility] [place] [id number], [facility] MONOS 8.6 % Normal 5.0-12.0 [facility] Comment on above: Performed By: #### 5 0103 #### [facility] [address] [facility] [address], [facility] Neutrophils/100 WBC (Bld) 59.1 % Normal 40.0-72.0 [facility] Comment on above: Performed By: #### 5 3 #### [facility] [address] [place] [id number], [facility] Nucleated RBC/100 WBC (Bld) [Ratio] 0 % Normal 0-0 [facility] Comment on above: Performed By: #### 5 0103 #### [facility] [address] [place] [address], [facility] PLAT CNT 163 10*3/uL Normal 150-400 [facility] Comment on above: Performed By: #### 5 0103 #### [facility] [address] [place] [address], [facility] RBC (Bld) [#/Vol] 4.68 10*6/uL Normal 3.80-5.[address] [facility] Comment on above: Performed By: #### 5 0103 #### [facility] [address] [facility] [place] [address], [facility] WBC (Bld) [#/Vol] 7.44 10*3/uL Normal 4.00-10.[address] [facility] Comment on above: Performed By: #### 5 0103 #### [facility] [address] [facility] [address] HEPATITIS A ANTIBODY IGMon 0 08-08-2020 HEP A AB IGM NONREACTIVE Normal NONREACTIVE The [facility] Comment on above: Performed By: #### 3 1422, 29038, 89988, 10172 #### [facility] [address] [facility]. [address] HEPATITIS B CORE ANTIBODYon 08-08-2020 HEP B CORE AB NONREACTIVE Normal NONREACTIVE [facility] Comment on above: Performed By: #### 3 1422, 90874, 92023, 21389 #### [facility] [address] [facility]. [address] HEPATITIS B SURFACE ANTIGEN QUALon 08-08-2020 HEP B SURF AG QUAL NONREACTIVE Normal NONREACTIVE [facility] Comment on above: Performed By: #### 3 1422, 87043, 99385, 49497 #### [facility] [address] [facility] HEPATITIS C ANTIBODYon 08-08 ANTI-HCV NONREACTIVE Normal NONREACTIVE The [facility] Comment on above: Performed By: #### 3 1422, 41842, 94281, 91727 #### [facility] [address] [place] [address], [place] LIVER BATTERYon 08-08-2020 Albumin [Mass/Vol] 4.5 g/dL Normal 3.5-5.7 [facility] Comment on above: Performed By: #### 9 99, 41217 #### [facility] [address] [place] [address], [facility] ALKALINE PHOSPH 37 IU/L Normal 34-104 [facility] Comment on above: Performed By: #### 9 99, 28882 #### [facility] [address] [place] [id number], [facility] ALT [Catalytic activity/Vol] 56 U/L High 7-52 [facility] Comment on above: Performed By: #### 9 9908, 58111 #### [facility] [address] [place] [id number], [facility] AST [Catalytic activity/Vol] 38 U/L Normal 13-39 [facility] Comment on above: Performed By: #### 9 9908, 40330 #### [facility] [address] [place] [address], [facility] Bilirubin [Mass/Vol] 1.1 mg/dL High 0.3-1.0 [facility] Comment on above: Performed By: #### 9 99, 63086 #### [facility] [address] [place] [id number], [facility] Bilirubin.direct [Mass/Vol] 0.2 mg/dL Normal 0.0-0.2 [facility] Comment on above: Performed By: #### 9 99, 88292 #### [facility] [address] Protein [Mass/Vol] 7.5 g/dL Normal 6.0-8.3 [facility] Comment on above: Performed By: #### 9 9909, 85874 #### [facility] [address] LIVER FIBROSIS CHRONIC VIRAL [id number] 08-08-2020 [id number] IN,FIBROMETER 259 mg/dL Normal 131-293 [facility] ALT [Catalytic activity/Vol] 69 U/L High 5-40 [facility] Amylase [Catalytic activity/Vol] 131 U/L High 7-33 [facility] AST [Catalytic activity/Vol] 54 U/L High 9-40 [facility] Comment on above: Result Comment: This specimen is Hemolyzed. This may cause the results to be falsely increased. CIRRHOMETER PATIENT SCORE 0.12 Normal [facility] EER FIBROMETER REPORT See Note Normal [facility] Comment on above: Result Comment: Acce johnnie [facility] Enhanced Report using the link below: -Direct access: [email or web address] FIBROMETER INTERPRETATION See Report Normal [facility] Comment on above: Result Comment: INTE RPRETIVE INFORMATION: Fibrometer Interpretation Calculations for the final report are based on accurate data for age, gender, and platelet count. If any of this information needs to be corrected, please contact [facility] Client Services to request a recalculation. Client Services may be contacted at . The [employer] FibroMeter profile serves as a surrogate marker [...] developed and its performance characteristics determined by [facility]. It has not been cleared or approved by the [place] Food and Drug Administration. This test was performed in a CLIA certified laboratory and is intended for clinical purposes. [13] [17] Performed By: [facility] [address] [place] [address] Station Repairer: Radha Horton MD FIBROMETER PLATELET CT 163 k/uL Normal [facility] FIBROMETER PLATELET IND 81 % Low 90-120 [facility] FIBROMETER PLATELET SCORE 0.62 Normal [facility] FIBROSIS METAVIR CLASSIFICATION F2[F1-F3] Normal [facility] Comment on above: Result Comment: INTE [...] possible INFLAMETER METAVIR CLASSIFICATION A1/A2 Normal [facility] Comment on above: Result Comment: INTE RPRETIVE INFORMATION: InflaMeter Metavir Classification InflaMeter (activity score) comments A0/A1 Equal probability between A0 and A1 A1/A2 Equal probability between A1 and A2 A2/A3 Equal probability between A2 and A3 INFLAMETER PATIENT SCORE 0.61 Normal [facility] Urea nitrogen [Mass/Vol] 14 mg/dL Normal 7-20 [facility] MITOCHONDRIAL ABon 1 MITOCHONDRIAL AB SEE [facility] RESULT Abnormal NONE DETECTED [facility] Comment on above: Result Comment: NONE DETECTED LESS THAN 1:20 INTERMEDIATE LEVEL 1:20 - 1:80 (MAY BE PRESENT IN AUTOALLERGIC LIVER DISEASE) ELEVATED LEVEL GREATER THAN OR EQUAL TO 1:160 (STRONGLY SUGGESTIVE OF PRIMARY BILIARY CIRRHOSIS) Performed By: #### 1 0196, 48402 #### [facility] [address] MITOCHONDRIAL M2 ANTIBODY, [place] [id number] 08-08-2020 MITOCHONDRIAL M2 ANTIBODY IGG 2.1 Units Normal 0.0-24.9 [facility] Comment on above: Result Comment: REFE [...] does not rule out PBC. Performed By: [facility] [address] [place] [address] Station Repairer: Radha Horton MD PROTHROMBIN TIMEon 1 INR Coag (PPP) [Relative time] 1.05 {INR} Normal 0.91-1.16 [facility] Comment on above: Result Comment: ACCC [...] CHEST 1995;108:[id number]-[id number]. Performed By: #### 1 0196, 33324 #### [facility] [address] [facility]. [address] PT Coag (PPP) [Time] 13.7 s Normal 12.3-14.8 [facility] Comment on above: Result Comment: ALL RESULTS MUST BE INTERPRETED WITH RESPECT TO BLOOD DRAWING ARTIFACT OR DILUTION ERROR OF ANTICOAGULANT AT THE TIME OF SAMPLING. Performed By: #### [id number] #### [facility] [address] [facility]. [address] XR FOOT LEFT (MIN 3 VIEWS)on 04-24-2019 No acute osseous abnormality in the left foot. [employer] [facility] EX[facility]ATION: THREE XRAY VIEWS OF THE LEFT [...] Joint spaces are preserved. No bony erosion. [employer] ([facility] Rashid, pn Incoming Radiant Results From [employer] - 04/24/2019 5:49 PM EDT EXAMINATION: THREE [...] acute osseous abnormality in the left foot. [facility] [place], [place] Large Joint Arthro/Inj: bila teral greater trochanteric bursa injection [facility] Vital Signs Date Time Vital Sign Value Performing Clinician Faci lity 09-02-2023 11:36-0500 Body height 172.1 cm Michael Perkins MD Work Phone: [facility] 09-02-2023 11:36-0500 Body mass index (BMI) [Ratio] 38.6 kg/m2 Michael Perkins MD Work Phone: [facility] 09-02-2023 11:36-0500 Body weight 114.31 kg Michael Perkins MD Work Phone: [facility] 09-02-2023 11:36-0500 Diastolic blood pressure 90 mm[Hg] Michael Perkins MD Work Phone: [facility] 09-02-2023 11:36-0500 Heart rate 107 /min Michael Perkins MD Work Phone: [facility] 09-02-2023 11:36-0500 SaO2% (BldA) [Mass fraction] 94 % Michael Perkins MD Work Phone: [facility] 09-02-2023 11:36-0500 Systolic blood pressure 128 mm[Hg] Michael Perkins MD Work Phone: [facility] 08-05-2023 11:00-0500 Body height 167 cm Cody HURLEY Work Phone: [facility] 08-05-2023 11:00-0500 Body mass index (BMI) [Ratio] 39.39 kg/m2 Cody HURLEY Work Phone: [facility] 08-05-2023 11:00-0500 Body weight 109.86 kg Cody Hutchins STORE SALES CONSULTANT-ORDER BUILDER [facility] 08-05-2023 11:00-0500 Diastolic blood pressure 88 mm[Hg] Cody Hutchins STORE SALES CONSULTANT-ORDER BUILDER [facility] 08-05-2023 11:00-0500 Heart rate 88 /min Cody Hutchins APRN-ORDER BUILDER Work Phone[facility] 08-05-2023 11:00-0500 Systolic blood pressure 130 mm[Hg] Cody Hutchins STORE SALES CONSULTANT-ORDER BUILDER Work [facility] 07-13-2023 16:15-0500 Body height 167.64 cm Beba Richey Other [employer] Other 07-13-2023 16:15-0500 Body mass index (BMI) [Ratio] 39.06 kg/m2 Beba Rossi Other [employer] Other 07-13-2023 16:15-0500 Body temperature 97.3 [degF] Beba Rossi Other [employer] Other 07-13-2023 16:15-0500 Body weight 109.77 kg Beba Rossi Other [employer] Other 07-13-2023 16:15-0500 Diastolic blood pressure 80 mm[Hg] Beba Rossi Other [employer] Other 07-13-2023 16:15-0500 Respiratory rate 18 /min Beba Rossi Other [employer] Other 07-13-2023 16:15-0500 SaO2% (BldA) [Mass fraction] 98 % Beba Richey Other [email or web address] Other 07-13-2023 16:15-0500 Systolic blood pressure 120 mm[Hg] Beba Rossi Other [email or web address] Other 06-24-2023 11:38-0500 Body height 167.6 cm Noemi Pham MD Work Phone: [facility] 06-24-2023 11:38-0500 Body weight 108.86 kg Noemi Pham MD Work Phone: [facility] 06-24-2023 11:38-0500 Diastolic blood pressure 77 mm[Hg] Noemi Pham MD Work Phone: [facility] 06-24-2023 11:38-0500 Heart rate 104 /min Noemi Pham MD Work Phone: [facility] 06-24-2023 11:38-0500 Respiratory rate 20 /min Noemi Pham MD Work Phone: [facility] 06-24-2023 11:38-0500 Systolic blood pressure 114 mm[Hg] Noemi Pham MD Work Phone: [facility] 08-11-2022 09:48-0500 Body weight 102.51 kg Noemi Pham MD Work Phone: [facility] 08-11-2022 09:48-0500 Diastolic blood pressure 73 mm[Hg] Noemi Pham MD Work Phone: [facility] 08-11-2022 09:48-0500 Heart rate 94 /min Noemi Pham MD Work Phone: [facility] 08-11-2022 09:48-0500 Systolic blood pressure 118 mm[Hg] Noemi Pham MD Work Phone: [facility] 02-07-2021 11:53-0400 Body mass index (BMI) [Ratio] 37.12 kg/m2 Garfield Restrepo MD [place] Work Phone: 02-07-2021 11:53-0400 Body temperature 98.4 [degF] Garfield Restrepo MD [employer] Phone: 02-07-2021 11:53-0400 Body weight 104.33 kg Garfield Restrepo MD [employer] Phone: 02-07-2021 11:53-0400 Diastolic blood pressure 92 mm[Hg] Garfield Restrepo MD [employer] Phone: 02-07-2021 11:53-0400 Heart rate 108 /min Garfield Restrepo MD [employer] Phone: 02-07-2021 11:53-0400 Respiratory rate 16 /min Garfield Restrepo MD [employer] Phone: 02-07-2021 11:53-0400 SaO2% (BldA) [Mass fraction] 96 % Garfield Restrepo MD [employer] Phone: 02-07-2021 11:53-0400 Systolic blood pressure 122 mm[Hg] Garfield Restrepo MD [employer] Phone: 04-24-2019 15:30-0400 Pulse (Heart Rate) 104 /min [place], [place] 04-24-2019 15:28-0400 BMI (Body Mass Index) 35.51 kg/m2 [facility] 04-24-2019 15:28-0400 Body Temperature 98.4 [degF] [facility] 04-24-2019 15:28-0400 Body weight 99.79 kg [place], [place] 04-24-2019 15:28-0400 BP Diastolic 81 mm[Hg] [facility] , [place] 04-24-2019 15:28-0400 BP Systolic 116 mm[Hg] [facility] [place] 04-24-2019 15:28-0400 Height 167.6 cm [place], [place] 04-24-2019 15:28-0400 Pulse Oximetry 95 % [facility] [place] , [place] 04-24-2019 15:-0 Respiratory Rate 15 /min [facility] H, [facility] Encounters Encounter Date Encounter Type Care Provider Facility Start: 09-29-2023 ambulatory Noemi Pham MD Work Phone: Rheumatology Comment on above: Denied mri Start: 09-27-2023 End: 09-28-2023 Emergency department patient visit NASEEM Alvarado [facility] Start: 09-27-2023 End: 09-27-2023 Emergency department patient visit TOY OBRIEN [facility] Start: 09-26-2023 ambulatory Noemi Pham MD Work Phone: Rheumatology Comment on above: MRI office notes Start: 09-23-2023 ambulatory Noemi Pham MD Work Phone: Rheumatology Comment on above: MRI lumbar spine Start: 09-22-2023 Telephone encounter Noemi perez MD Work Phone: Rheumatology Comment on above: Orders Start: 09-21-2023 ambulatory Noemi Pham MD Work Phone: Rheumatology Comment on above: Back pain Start: 09-21-2023 Telephone encounter Noemi perez MD Work Phone: Rheumatology Comment on above: Results (X-ray resul ts XR lumbar spine) Start: 09-19-2023 Telephone encounter Noemi perez MD Work Phone: Rheumatology Comment on above: Pain Start: 09-02-2023 End: 09-02-2023 ambulatory [place] [facility] Start: 09-02-2023 End: 09-02-2023 Office outpatient visit 25 minutes Michael Perkins MD Work Phone: [facility] Comment on above: Primary hypertension (Primary Dx); Coronary artery vasospasm (CMS-HCC); Intermittent palpitations; Obstructive sleep apnea Start: 09-01-2023 Telephone encounter Mei Garcia [facility] Comment on above: Appointment Start: 08-05-2023 End: 08-05-2023 ambulatory [facility] Start: 08-05-2023 End: 08-05-2023 Office outpatient visit 25 minutes [facility] STORE SALES CONSULTANT-ORDER BUILDER Work Phone: [facility] Comment on above: Status migrainosus ( Primary Dx); Migraine without aura and without status migrainosus, not intractable; Cervicalgia; Fibromyalgia; Paresthesias; Trapezius muscle spasm; Vertigo Start: 08-03-2023 Telephone encounter Gloria Box [facility] Start: 07-21-2023 End: 07-21-2023 ambulatory Betty Moreau Other [employer] Other Start: 07-21-2023 Telephone encounter Naz Holt [facility] Comment on above: Headache Start: 07-13-2023 End: 07-13-2023 ambulatory Beba Richey Other [employer] Other Start: 07-13-2023 Office outpatient vi sit 15 minutes Beba Richey [facility] Start: 06-24-2023 End: 06-25-2023 ambulatory TOY OBRIEN Facility:[facility] Start: 06-24-2023 End: 06-24-2023 ambulatory TOY OBRIEN Facility:[facility] Start: 06-24-2023 End: 06-24-2023 Subsequent hospital visit by physician Mayte Alonso Work Phone: [facility] Radiology General Comment on above: Pain in joint, multi ple sites [M25.50] Start: 06-24-2023 End: 06-24-2023 Patient encounter procedure Noemi Pham MD Work Phone: Rheumatology Comment on above: Pain in joint, multi ple sites (Primary Dx); Trochanteric bursitis of both hips Start: 05-27-2023 End: 05-27-2023 ambulatory Jud Monson Other [employer] Other Start: 05-27-2023 Office outpatient vi sit 25 minutes Jud Monson [facility] Start: 05-12-2023 Telephone encounter Noemi perez MD Work Phone: Rheumatology Comment on above: Medication Problem Start: 03-21-2023 End: 03-22-2023 ambulatory TERRY SHEFFIELD [facility] Start: 03-09-2023 Telephone encounter Noemi perez MD Work Phone: Rheumatology Start: 01-28-2023 Telephone encounter Noemi perez MD Work Phone: Rheumatology Comment on above: Orders Start: 01-26-2023 ambulatory Noemi Pham MD Work Phone: Rheumatology Comment on above: results of blood wor k Start: 01-26-2023 E-mail encounter fro m caregiver Noemi Pham MD Work Phone: MATILDA REIS [facility] Start: 01-14-2023 End: 01-15-2023 ambulatory TOY OBRIEN [facility] Start: 01-11-2023 Refill Noemi Pham MD Work Phone: Rheumatology Comment on above: Refill Request Start: 12-24-2022 End: 12-24-2022 ambulatory TOY OBRIEN Neurology Start: 12-24-2022 End: 12-24-2022 Patient encounter procedure Emg 3 Neur Main (Max Weight: 1000) Work Phone: [facility] Start: 12-17-2022 End: 12-17-2022 ambulatory LACHELLE ALONZO [facility] Start: 12-13-2022 End: 12-18-2022 ambulatory TOY OBRIEN [facility] Start: 12-01-2022 Telephone encounter Noemi perez MD [...] Refill Request Start: 09-08-2022 End: 09-08-[address] [facility] Start: 09-08-2022 End: 09-08-[address] [facility] Start: 08-11-2022 End: 08-12-2022 ambulatory NOEMI PHAM Facility:[facility] Start: 08-11-2022 End: 08-11-2022 Patient encounter procedure Noemi Pham MD Work Phone: Rheumatology Comment on above: Rheumatoid arthritis involving multiple sites, unspecified whether rheumatoid factor present (HCC) (Primary Dx) Start: 07-30-2022 End: 07-30-2022 ambulatory Jud Monson Facility:[facility] Start: 07-30-2022 End: 07-30-2022 ambulatory EMERGENCY ROOM ORDERLY-C Jud Monson Work Phone: [facility] Work Phone: Start: 07-30-2022 End: 07-30-2022 Patient encounter procedure EMERGENCY ROOM ORDERLY-C Jud Monson Work Phone: [facility] Start: 06-04-2022 Telephone encounter Noemi perez MD Work Phone: Rheumatology Comment on above: Insurance Authorizat ion Start: 06-02-2022 ambulatory Noemi Pham MD Work Phone: Rheumatology Comment on above: Ankle pain Start: 05-29-2022 Refill Noemi Pham MD Work Phone: Rheumatology Comment on above: Refill Request Start: 05-26-2022 End: 05-26-[address] [facility] Start: 05-17-2022 Telephone encounter Noemi perez MD Work Phone: [address] [place] [address] Comment on above: Patient Question Start: 12-29-2021 Telephone encounter Noemi perez MD Work Phone: Rheumatology Comment on above: Patient Request Start: 10-27-2021 ambulatory Noemi Pham MD Work Phone: Rheumatology Comment on above: Handicap plaquered Start: 07-22-2021 End: 07-25-2021 ambulatory [facility] Start: 07-03-2021 End: 07-06-2021 ambulatory [facility] Start: 02-07-2021 End: 02-07-2021 Emergency department patient visit [facility] Start: 02-07-2021 End: 02-07-2021 Emergency department patient visit Garfield Restrepo MD [facility] ED Comment on above: Neuropathic pain (Pr imary Dx) Start: 01-19-2021 End: 01-19-2021 Emergency department patient visit [facility] Start: 05-20-2020 End: 05-20-2020 Subsequent hospital visit by physician Zackary Garcia [facility] Comment on above: Canceled (Patient no show) Start: 05-16-2020 End: 05-16-2020 Subsequent hospital visit by physician Glory OSORIOZ [facility] Comment on above: Canceled (Patient) Start: 05-14-2020 End: 05-14-2020 Subsequent hospital visit by physician Sander Jauregui [facility] Start: 04-24-2019 End: 04-24-2019 Emergency department patient visit Gold Denis Graves Work Phone: [facility] ED Comment on above: Sprain [...] Start: 07-30-2022 Plain X-ray of right elbow EMERGENCY ROOM ORDERLY-C Jud Monson Work Phone: Start: 07-24-2021 Lipid [...] - S blanca or Plasma Lipid Screening [facility] Start: 07-24-2026 Lipid panel Lipid Screening [facility] Start: 07-24-2026 LIPID SCREEN LIPID SCREEN [facility] Start: 06-24-2026 Diabetes Screening Diabetes Screenin g [facility] Start: 11-08-2025 DIABETES SCREEN [facility] Start: 11-08-2025 Diabetes Screening Diabetes Screenin g [facility] Start: 08-11-2025 DIABETES SCREEN DIABETES SCREEN [facility] Start: 09-02-2024 Adult BMI Screening Adult BMI Screen ing [facility] Start: 09-02-2024 Tobacco Screening Tobacco Screening [facility] Start: 08-05-2024 Adult BMI Screening Adult BMI Screen ing [facility] Start: 08-05-2024 Tobacco Screening Tobacco Screening [facility] Start: 05-13-2024 Glaucoma screening Diabetic Op hthalmology Exam [facility] Start: 05-13-2024 Tobacco Screening Tobacco Screening [facility] Start: 05-12-2024 Adult BMI Screening Adult BMI Screen ing [facility] Start: 12-18-2023 Colonoscopy COLONOSCOPY [facility] Start: 12-18-2023 COLORECTAL CANCER SCREENING COLORECTAL CANCER SCREENING [facility] Start: 12-18-2023 Screening for malign ant neoplasm of colon [facility] Start: 10-28-2023 End: 10-28-2023 Patient encounter procedure 10/28/2023 9:00 AM EDT Office Visit [facility] [address] [place] [address] Cody Hutchins, STORE SALES CONSULTANT-ORDER BUILDER [address] [place] [address] [facility] Start: 10-14-2023 End: 10-14-2023 Patient encounter procedure 10/14/2023 1:10 PM EDT Office Visit [facility] [address] [place] [address] Dallas Tobar MD [address] [place] [address] [facility] Start: 09-30-2023 End: 09-30-2023 Patient encounter procedure [facility] Start: 09-30-2023 End: 09-30-2023 ambulatory 09/30/2023 9:30 AM EST Ophthalmology Imaging [facility] [address] [place] [phone] [facility] Start: 09-16-2023 End: 09-16-2023 Patient encounter procedure 09/16/2023 10:30 AM EST Office Visit [facility] [address] [place] [phone] Dallas Tobar MD [address] [place], [place] [id number] [facility] Start: 09-06-2023 Depression Screening Depression [facility] Start: 09-02-2023 End: 09-02-2023 Patient encounter [facility] Start: 08-05-2023 End: 08-05-2023 Patient encounter procedure 08/05/2023 11:30 AM EST [facility] [address] [place] [address] Cody Hutchins APRN-ORDER BUILDER [address] [place] [address] [facility] Start: 07-25-2023 Depression Assessment Depression Ass essment [facility] Start: 05-16-2023 DI[address]ETES SCREEN DIABETES SCREEN [facility] Start: 03-25-2023 Covid-19 Vaccine ( season) Covid-19 Vaccine () [facility] Start: 03-25-2023 Influenza vaccination [facility] Start: 01-26-2023 End: 03-28-2023 Extractable nuclear Ab panel - Serum ANTI LEYV ID Lab Routine Rheumatoid arthritis involving multiple sites, unspecified whether rheumatoid factor present (HCC) Expected: 01/26/2023, Expires: 03/28/2023 [facility] Work Phone: Comment on above: Expected: 01/26/2023 , Expires: 03/28/2023 Start: 10-27-2022 End: 12-27-2022 Aldolase [Enzymatic activity/volume] in Serum or Plasma ALDOLASE BLD Lab Routine Myalgia Expected: 10/27/2022, Expires: 12/27/2022 [facility] Work Phone: Comment on above: Expected: 10/27/2022 , Expires: 12/27/2022 Start: 10-27-2022 End: 12-27-2022 Creatine kinase [Enzymatic activity/volume] in Serum or Plasma CK CREATINE KINASE Lab Routine Myalgia Expected: 10/27/2022, Expires: 12/27/2022 [facility] Work Phone: Comment on above: Expected: 10/27/2022 , Expires: 12/27/2022 Start: 08-11-2022 End: 10-11-2022 Aldolase [Enzymatic activity/volume] in Serum or Plasma [facility] Work Phone: Comment on above: Expected: 08/11/2022 , Expires: 10/11/2022 Start: 07-25-2022 DEPRESSION ASSESSMENT DEPRESSION ASS ESSMENT [facility] Start: 03-25-2022 Influenza vaccination INFLUENZA (#1) [facility] Start: 03-19-2022 Adult depression screening assessment DEPRESSION SCREENING [facility] Start: 01-27-2022 DTaP,Tdap and Td Vaccines (2 - Td or Tdap) DTaP,Tdap and Td Vaccines (2 - Td or Tdap) [facility] Start: 01-27-2022 DTaP/Tdap/Td vaccine (2 - Td or Tdap) DTaP/Tdap/Td vaccine (2 - Td or Tdap) [place] Work Phone: Start: 01-27-2022 DTaP/Tdap/Td vaccine (2 - Td) DTaP/Tdap/Td vaccine (2 - Td) [facility] [place] Start: 01-27-2022 Urine microalbumin profile DTaP,Tdap,Td Vaccine (2 - Td or Tdap) [facility] Start: 07-25-2021 DEPRESSION ASSESSMENT DEPRESSION ASS ESSMENT [facility] Start: 03-25-2021 Influenza vaccination Flu vaccine (# 1) [employer] Phone: Start: 01-12-2021 COVID-19 VACCINE (3 - Booster for Pfizer series) COVID-19 VACCINE (3 - Booster for Pfizer series) [facility] Start: 01-12-2021 COVID-19 VACCINE (3 - Pfizer series) COVID-19 VACCINE (3 - Pfizer series) [facility] Start: 12-15-2020 COVID-19 VACCINE (3 - Pfizer risk 4-dose series) COVID-19 VACCINE (3 - Pfizer risk 4-dose series) [facility] Start: 12-15-2020 COVID-19 VACCINE (3 - Pfizer risk series) COVID-19 VACCINE (3 - Pfizer risk series) [facility] Start: 2020 COLOGUARD (FIT-DNA) COLOGUARD (FIT-D NA) [facility] Start: 2020 Colonoscopy COLONOSCOPY [facility] Start: 2020 COLORECTAL CANCER SCREENING COLORECTAL CANCER SCREENING [facility] Start: [address] [facility] Start: 2020 FECAL OCCULT BLOOD FECAL OCCULT BLOO D [facility] Start: 2020 Screening for malign ant neoplasm of colon [facility] Start: 2020 SIGMOIDOSCOPY SIGMOIDOSCOPY [facility] Start: 05-29-2020 End: 05-29-2020 Appointment 05/29/2020 Appointment Physical Therapy Jeremie Barnett PTA [facility] Start: 05-28-2020 End: 05-28-2020 Appointment 05/28/2020 Appointment Physical Therapy Jeremie Barnett PTA [facility] Start: 05-23-2020 End: 05-23-2020 Appointment 05/23/2020 Appointment Physical Therapy Glory Ortiz PTA [facility] Start: 05-20-2020 End: 05-20-2020 Appointment [facility] Start: 05-16-2020 End: 05-16-2020 Appointment 05/16/2020 Appointment Physical Therapy Glory Ortiz PTA [facility] Start: 03-25-2020 Influenza vaccination Flu vaccine (# 1) [place], [place] Start: 03-25-2019 Influenza vaccination Flu vaccine (# 1) [place] Start: 2015 Diabetes screen Diabetes screen [facility] [email or web address] Phone: Start: 2015 Lipid panel Lipid screen [place], [place] Start: 2015 Lipid screen Lipid screen [place] Start: 2015 Mammography [facility] Start: 2015 Screening for malign ant neoplasm of breast Mammogram Screening [facility] Start: 2005 HPV TESTING HPV TESTING [facility] Start: 2005 Screening for malign ant neoplasm of cervix HPV Testing [facility] Start: 1996 Cervical cancer screen Cervical canc er screen [place] Start: 1996 PAP TESTING PAP TESTING [facility] Start: 1996 Screening for malign ant neoplasm of cervix [facility] Start: 1994 SHINGRIX VACCINE (1 of 2) SHINGRIX VACCINE (1 of 2) [facility] Start: 1994 Urine microalbumin profile [facility] Start: 1993 Adult BMI Follow Up Plan Adult BMI Follow Up Plan [facility] Start: 1993 Diabetic foot examination Diabetic Foot Exam [facility] Start: 1993 HIV SCREENING HIV SCREENING [facility] Start: 1993 HIV screening HIV Screening [facility] Start: 1990 [facility] [place] [place] Start: 1990 HIV screening [facility] [place] [place] Start: 1981 PNEUMOCOCCAL (1 - PCV) PNEUMOCOCCAL (1 - PCV) [facility] Start: 1981 Pneumococcal vaccination [facility] Start: 1975 Hepatitis C screening Hepatitis C sc rita [place] Work Phone: End: 11-24-2023 EMG(NEURO/NI) EMG(NEURO/NI) EMG Routine Fatigue, unspecified type Elevated aldolase level Generalized weakness 1 Occurrences starting 11/23/2022 until 11/24/2023 [facility] Work Phone: Comment on above: 1 Occurrences starti ng 11/23/2022 until 11/24/2023 End: 10-20-2024 MR Lumbar spine WO contrast MRI LUMBAR SPINE WO IVCON Radiology Routine Spinal stenosis of lumbar region with neurogenic claudication 1 Occurrences starting 09/21/2023 until 10/20/2024 [facility] Work Phone: Comment on above: 1 Occurrences starti ng 09/21/2023 until 10/20/2024 End: 10-18-2024 XR Lumbar spine 3 Views XR LUMBAR GENERAL 3V AP/LAT/L5-S1 Radiology Routine Chronic bilateral low back pain without sciatica 1 Occurrences starting 09/19/2023 until 10/18/2024 [facility] Work Phone: Comment on above: 1 Occurrences starti ng 09/19/2023 until 10/18/2024 [facility] Immunizations Immunization Date Immunization Notes Care Provider Fa cili 04-23-2021 influenza virus vacc ine, unspecified formulation Noemi Pham MD Work Phone: [facility] Payers Date Payer Category Payer Self-pay 2021 Unknown [employer] [id number] 2021-Present [phone] [address] [place] [address] PPO [id number] 2021 Unknown [id number] 2021 Medicare [id number] 2021 Unknown [id number] [id number] .[id number] 2020 Unknown [id number] .[id number] 2015 Unknown [facility] xxxxxxxxxxxx 2015-Present [phone] [address] [place] [address] xxxxxxxxxxxx [id number] .[id number] 2003 Medicaid [place] [employer] MED[place] [id number] 2003-Present [phone] [address] [place] [address] Medicaid [id number] .[id number] 2003 Medicaid [id number]. [id number] .[id number] 2003 Unknown [id number] [id number] .[id number] 1975 Unknown [id number] 2.16840.1.675621.3.579.2.175 1975 Unknown [id number] 2.16840.1.106596.3.579.2.175 1975 Unknown [id number] 2.16840.1.135353.3.579.2.175 1975 Unknown [id number] 2.16.840.1.592843.3.579.2.175 1975 Unknown [id number] 2.16.840.1.234802.3.579.2.176 1975 Unknown [id number] 2.16.840.1.482091.3.579.2.176 1975 Unknown [id number] 2.16840.1.737998.3.579.2.176 1975 Unknown [id number] 2.16840.1.019082.3.579.2.128 6 1975 Unknown [id number] 2.16.840.1.774576.3.579.2.128 6 1975 Unknown [id number] 2.16.840.1.097646.3.579.2.128 6 1975 Unknown [id number] 2.16.840.1.164692.3.579.2.128 6 Unknown [id number] 2.16.840.1.067123.3.579.2.531 Social History Date Type Detail Facility Start: 06-18-2018 End: 08-11-2022 Tobacco smoking status NHIS Never smoker [facility] Start: 06-18-2018 End: 08-11-2022 Tobacco use and exposure Never used [place], [place] Start: 06-18-2018 End: 06-24-2023 Alcohol intake Current drinker of alcohol (finding) [place] Start: 08-28-2017 Alcohol Comment social [place], [place] Start: 1975 Sex Assigned At Not on file M [place] Start: 06-18-2018 End: 12-24-2022 Alcohol intake Yes [facility] Start: 12-14-2022 End: 12-24-2022 Exposure to SARS-CoV-2 (event) Not sure [place] Start: 10-26-2018 History SDOH Alcohol Comment Occasional [facility] Start: 1975 Sex Assigned At Female F [facility] Start: 12-24-2022 End: 01-14-2023 History of Social function [facility] National Score (1-10 0), lower number is lower risk 76 [facility] Start: 08-14-2019 Alcohol Comment occasional [facility] Start: 09-06-2022 Gender identity Identifies as female gender (finding) [facility] Start: 09-06-2022 Sexual orientation Heterosexual (fin ding) [facility] Clinical Notes 10-28-2021 to 09-29-2023 Telephone Encounter - Inocencia Bui LPN - 09/29/2023 2:39 PM ESTTelephone Encounter - Inocencia Bui LPN - 09/26/2023 3:28 PM ESTTelephone Encounter - Zayra Sarabia - 09/20/2023 9:02 AM EST Note Date & Type Note Facility 09-29-2023 Miscellaneous Notes Denial paperwork received. Placed on Dr. Pham's desk for review. documented in this encounter [facility] 09-26-2023 Miscellaneous Notes Office notes faxed to [facility] per patient request. documented in this encounter [facility] 09-23-2023 Miscellaneous Notes MRI faxed via [employer]. documented in this encounter [facility] 09-22-2023 Miscellaneous Notes Received back with signature from Dr. Pham and faxed to [phone] per Patients request. Printed and placed on Dr. Pham's desk for signature. Patient is calling today to request her MRI of the Lumbar spine be printed and signed and faxed over to [facility] at: [phone]. Please call and advise when this is done so she can get this scheduled. Patient has been identified by name and birthdate. Duration of symptoms: N/A Person calling: self Call patient at: at home [phone] (home) [phone] (cell) Was an appointment scheduled: No Closing statement: Results or non-symptom based questions: Thank you for calling [facility], your call will be returned within the next business day. Abby Nassar documented in this encounter [facility] 09-21-2023 Miscellaneous Notes Order for MRI of lumbar spine placed, please call patient to schedule. Noemi Pham MD documented in this encounter [facility] 09-21-2023 Miscellaneous Notes Received fax from [facility]. X-ray results XR lumbar spine. One copy given to Dr. Pham and one copy sent to scanning documented in this encounter [facility] 09-20-2023 Miscellaneous Notes Faxed x-ray orders to both fax numbers as requested by patient. Faxed via [employer]. Patient called to check on status regarding fax. Also requested the order to be faxed to [phone]. Please call patient once order is faxed. Called and spoke with pt. She states it is the R-Hip. She needs us to fax orders to [facility] [phone]. Yes I can order xray of hip and low back. Which hip is it? Noemi Pham MD Patient called. Right lower back, hip and thigh pain for the past week. Pain is described as sharp and shooting 8/10 on 0/10 scale intermittent, constant pain is 6/10 on 0/10 scale. Has not taken any OTC medications at this time, unable to take NSAIDS due to kidney function. She has tried heat and ice with no relief. Asking if x-ray for low back and hip can be ordered. Please advise. Asking for any orders to be faxed to [facility] documented in this encounter [facility] 09-02-2023 History of Present illness Narrative Lynette [...] of stress. 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 Past Medical History: Diagnosis Date Anxiety Asthma Autoimmune disease ([facility]) 09/26/2019 Chronic rheumatic arthritis ([facility]) Depression Diabetes mellitus ([facility]) Fibromyalgia GERD (gastroesophageal reflux disease) HLD (hyperlipidemia) HTN (hypertension) HTN (hypertension) 09/22/2021 Hypothyroidism Migraine Moderate mitral regurgitation Obstructive sleep apnea syndrome 02/12/2020 POTS (postural orthostatic tachycardia syndrome) RA (rheumatoid arthritis) ([facility]) Syncope TOS (thoracic outlet syndrome) No data recorded No data recorded No data recorded Past Surgical History: Procedure Laterality Date ADENOIDECTOMY APPENDECTOMY BLADDER SUSPENSION Cardiac catheterization - CORS + LV GRAM/PRESS (22916) Left 10/08/2021 Performed by Ana María Plasencia MD at [facility] CHOLECYSTECTOMY ENDOMETRIAL BIOPSY HYSTERECTOMY [...] - POCT EKG 2. Coronary artery vasospasm ([facility]) 3. Intermittent palpitations Assessment: Coronary vasospasm; [facility] 09/2021: Minimal CAD, spasm in the rPDA [...] MD Referring Physician: Toy Obrien MD [address] [place] [address] Referral and perts faxed to Pulmonology . documented in this encounter [facility] 09-01-2023 Miscellaneous Notes Left message for patient to remind them to bring their most current medication list with them to their appointment. documented in this encounter [facility] 09-01-2023 Telephone encounter Note Left message for patient to remind them to bring their most current medication list with them to their appointment. [facility] 08-05-2023 History of Present illness Narrative Subjective: [...] holocephalic, vicelike, pressure headaches that are present 24/7. 2-3 times a week they will build [...] Norflex does not help. She sees a brick unloader tender for rheumatoid arthritis ([place]) and fibromyalgia. Sleep/Social History: She complains of [...] muscles. 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 She would like to start a preventative [...] History: Diagnosis Date Anxiety Asthma Autoimmune disease ([facility]) 09/26/2019 Chronic rheumatic arthritis ([facility]) Depression Diabetes mellitus ([facility]) Fibromyalgia GERD (gastroesophageal reflux disease) HLD (hyperlipidemia) HTN (hypertension) HTN (hypertension) 09/22/2021 Hypothyroidism Migraine Moderate mitral regurgitation Obstructive sleep apnea syndrome 02/12/2020 POTS (postural orthostatic tachycardia syndrome) RA (rheumatoid arthritis) ([facility]) Syncope TOS (thoracic outlet syndrome) Past Surgical History: Procedure Laterality Date ADENOIDECTOMY APPENDECTOMY BLADDER SUSPENSION Cardiac catheterization - CORS + LV GRAM/PRESS (26656) Left 10/08/2021 Performed by Ana María Plasencia MD at [facility] CHOLECYSTECTOMY ENDOMETRIAL BIOPSY HYSTERECTOMY [...] muscles. 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 She would like to start a preventative [...] procedures Referring and communicating with other health pharmacy care coordinator (not separately reported) Documenting clinical information in the electronic or other health record Care coordination (not separately reported) - Cody Hutchins DNP, APRN-CNP 08/05/23 12:01 PM [facility] 08/05/23 1202 documented in this encounter [facility] 08-05-2023 Instructions MEI Corona - 08/05/2023 11:30 [...] --exercise bicycle pedals documented in this encounter [facility] 08-03-2023 Miscellaneous Notes Patient contacted our office requesting a sooner appt. Patient just started a new job and is off every other Tuesday and she is off this Tuesday. Benzene Operator looked and there are no appts available [...] can add 100 mg in the morning. Benzene Operator called pt. And left a message for her to call the office back to discuss her medication dosage question. Received call today 08/04/23 9:22 from patient who is requesting a call back in regard to previous message. Please call back and advise, callback#: [phone]. Benzene Operator spoke with pt. Benzene Operator told pt about the med dosage per Cody Hutchins and pt stated she understood. Pt also stated she is in so much pain asking for a migraine cocktail so she was added to schedule tomorrow 08/05/23. documented in this encounter [facility] 08-03-2023 Telephone encounter Note Patient contacted our office requesting a sooner appt. Patient just started a new job and is off every other Tuesday and she is off this Tuesday. Benzene Operator looked and there are no appts available [...] get her a sooner appt. Please advise. [facility] 08-03-2023 Telephone encounter Note Meron: when you are doing reminder calls for 08/05/2023, if anyone wants to cancel, please contact Lynette and put her on the schedule Clinical: If she is taking 100 mg of zonisamide each evening, she can increase her dose to 200 mg (two of the 100 mg capsules) each evening. [facility] 08-03-2023 Telephone encounter Note Patient is already taking 200 mg of the Zonisamide nightly. Please advise. [facility] Tele[facility] encounter Note She can add 100 mg in the morning. [facility]-03-2023 Telephone encounter Note Benzene Operator called pt. And left a message for her to call the office back to discuss her medication dosage question. [facility] 08-03-2023 Telephone encounter Note Received call today 08/04/23 9:22 from patient who is requesting a call back in regard to previous message. Please call back and advise, callback#: [phone]. [facility] 08-03-2023 Telephone encounter Note Benzene Operator spoke with pt. Benzene Operator told pt about the med dosage per Cody Hutchins and pt stated she understood. Pt also stated she is in so much pain asking for a migraine cocktail so she was added to schedule tomorrow 08/05/23. [facility] 07-21-2023 Miscellaneous Notes 1) When did the [...] requesting a call back to further discuss [phone]. Thank you so much She can increase the zonisamide to 200 mg (2 of the 100 mg capsules) each evening. Patient returned phone call. Benzene Operator informed her of Cody Hutchins's message below. She voiced understanding. documented in this encounter [facility] 07-21-2023 Telephone encounter Note 1) When did [...] requesting a call back to further discuss [phone]. Thank you so much [facility]23 Telephone encounter Note She can increase the zonisamide to 200 mg (2 of the 100 mg capsules) each evening. [facility] 07-21-2023 Telephone encounter Note Patient returned phone call. Benzene Operator informed her of Cody Hutchins's message below. She voiced understanding. [facility] 07-13-2023 Evaluation note Encounter Date Diagnosis [...] unspecified otitis media type (ICD-10 - H66.91) [facility] (P) Other 12-01-2023 NoteHNO ID: [id number] Author: Chato Chacko RT(R) Service: Radiology Author [...] BY: RT Aurelio(R) June 24, 2023 12:47 [id number] NoteHNO ID: [id number] Author: Noemi Pham MD Service: ? Author [...] bursa injection Informed Consent Consent Obtained: Verbal [place] Protocol A moment to CARE was completed. [...] F/U: 6m Check following: -none Noemi Pham, [facility]12-01-2023 History of Present illness Narrative* Chato Chacko [...] 24, 2023 12:47 PM [facility] History of Present illness Narrative* Noemi Pham [...] bursa injection Informed Consent Consent Obtained: Verbal [place] Protocol A moment to CARE was completed. [...] -none Noemi Pham MD documented in [facility]11-03-2023 Evaluation note* Encounter Date Diagnosis Assessment Notes [...] May, Right elbow pain (ICD-10 - M25.521) [facility] ([facility]) Other 10-19-2023 Miscellaneous Notes* Telephone Encounter - Allison York OCCA - 05/12/2023 1:29 PM EDT Faxed [facility], patient is no longer on medication * Telephone Encounter - Minh Mosqueda - 05/12/2023 1:16 PM EDT Ashwini from [facility] is calling Noemi Pham MD today to clarify medication. When they were filling the enbrel, it flagged that the patient has a thrombocytopenia diagnosis. They need to clarify that the provider is aware. They cannot send the medication until they get that clarification. [phone] Patient has been identified by name and birthdate. Duration of symptoms: N/A Person calling: pharmacy: [facility] Call patient at: on cell [phone] (home) [phone] (cell) Was an appointment scheduled: No Closing statement: Results or non-symptom based questions: Thank you for calling [facility], your call will be returned within the next business day. Minh Mosqueda documented in this encounterMetro[facility]08-16-2023 Miscellaneous Notes* Telephone Encounter - Jud Hess LPN - 03/09/2023 1:59 PM EDT Patient stopped taking the Plaquenil d/t skin rash. Provider aware. * Telephone Encounter - Noemi Pham MD - 03/09/2023 1:37 PM EDT She can continue on the plaquenil bid, eye exam reviewed, no toxicity noted. Noemi Pham MD documented in this encounterMet[facility]07-10-2023 Miscellaneous Notes* Telephone Encounter - Brianda Palomares [...] and mail to her. documented in this encounterMet[facility]07-05-2023 Miscellaneous Notes* Telephone Encounter - Brianda Palomares LPN - 01/26/2023 1:53 PM EDT Mailed LEVY label to patient per Dr. Pham's request * Telephone Encounter - Noemi Pham MD - 01/26/2023 1:45 PM EDT Please mail her lab order for LEVY panel. Noemi Pham MD documented in this encounterMetro[facility]06-23-2023 NoteHNO ID: [id number] Author: Noemi Pham MD Service: ? Author [...] F/U: 6m Check following: -none Noemi Pham [facility]06-21-2023 Miscellaneous Notes* Telephone Encounter - Noemi Pham MD - 01/12/2023 8:31 AM EDT The following approved medication requests have been transmitted electronically. Requested Prescriptions Pending Prescriptions Disp Refills metaxalone (SKELAXIN) 800 mg tablet [Pharmacy Med Name: METAXALONE 800 MG TABLET] 30 tablet 1 Sig: TAKE 1/2 TABLET BY MOUTH TWICE A DAY NEEDED Noemi Pham MD * Telephone Encounter - Jud Rosa PRADO - 01/11/2023 9:41 AM EDT Most recent [...] 365 Days Visit Type Date Time Department [facility] 01/14/2023 11:00 AM [facility] Last Ophthalmology Check for Plaquenil [...] Instance) Lab Orders None documented in this encounterMetrohealth [facility]06-02-2023 NoteHNO ID: [id number] Author: Liz Connolly MD Service: ? Author Type: Physician Type: Progress Notes Filed: 01/04/2023 10:43 AM Note Text: [facility] Note- Established patient Provider: Liz Connolly [...] that she has been following with her creative writing teacher with every 6 monthly appointments to monitor [...] There is also been weight gain since [facility] (going from 223 pounds to about [...] neck, respiratory, cardiovascular, GI, (more content not included)...[facility] 12-24-2022 NoteHNO ID: [id number] Author: Alejo Marshall MD Service: ? Author [...] Care Visit completed when applicable. Megan Marshall [facility]06-02-2023 History of Present illness Narrative* Alejo Marshall [...] applicable. Megan Marshall MD documented in this encounterMetro[facility]05-10-2023 Miscellaneous Notes* Telephone Encounter - Inocencia Burgerclif PRADO - 12/01/2022 3:25 PM EDT Prior authorization for Enbrel initiated on Cover My Meds. Pending. documented in this encounterMetro[facility]05-02-2023 Miscellaneous Notes* Telephone Encounter - Brianna Murray RN - 11/23/2022 9:22 AM EDT Patient has appointment with Dr. Connolly on 12/24/22 and is asking if any tests should be done prior her appointment. Patient was referred by Dr. Pham ( [facility] Patient c/o of increased muscle weakness. [...] units/L Brianna Murray RN documented in this encounterMetrohealth [facility] Center04-24-2023 Miscellaneous Notes* Telephone Encounter - Noemi Pham MD - 11/15/2022 1:22 PM EDT Please tell her I received labs from [facility] and her cpk and aldolase returned normal . (CPK was 11 and aldolase 5.0 Noemi Pham MD documented in this encounterMetrohealth [facility] Center04-05-2023 Miscellaneous Notes* Telephone Encounter - Inocencia Bui LPN - 10/27/2022 9:44 AM EDT Please advise. documented in this encounterMetrohealth [facility] Center03-13-2023 Miscellaneous Notes* Telephone Encounter - Noemi Pham [...] future refills. * Telephone Encounter - Brianda Palomares, [facility] - 10/04/2022 10:41 AM EDT Most recent [...] 365 Days Visit Type Date Time Department [facility] 02/16/2023 11:20 AM [facility] Last Ophthalmology Check for Plaquenil [...] Instance) Lab Orders None documented in this encounterMetrohealth [facility] Center02-15-2023 [facility] Gastroenterology Follow-Up Patient Visit CHIEF COMPLAINT Chief Complaint Patient presents with Follow-up Diarrhea HISTORY OF PRESENT ILLNESS: Lynette Hairston is a 47 y.o. female established patient. Summary of old records: Per HPI from 05/26/22 Lynette Hairston is a 46 y.o. female with PMH of gastroparesis, fatty liver, migraine headache, RA (follows with rheumatology in [place]), anxiety, POTS and IBS. She was last [...] injection, 1 ml, Dis (more content not included)...[facility]01-18-2023 NoteHNO ID: [id number] Author: Jud Hess LPN Service: ? Author Type: ? Type: Progress Notes Filed: 08/11/2022 11:22 AM Note Text: Patient given Depomedrol 80 mg IM in the left upper quadrant gluteus. Patient tolerated injection well. Lot#: [id number] Exp date: 03/23/2024 [facility] NoteHNO ID: [id number] Author: Inocencia Bui LPN Service: ? Author Type: ? Type: Progress Notes Filed: 08/11/2022 10:21 AM Note Text: Methylprednisolone injection verified. 80mg.[facility]01-18-2023 NoteHNO ID: [id number] Author: Noemi Pham MD Service: ? Author [...] F/U: 6m Check following: -none Noemi Pham, [facility]01-18-2023 History of Present illness Narrative* Jud Rosa PRADO - 08/11/2022 11:21 AM EST Patient given Depomedrol 80 mg IM in the left upper quadrant gluteus. Patient tolerated injection well. Lot#: [id number] Exp date: 03/23/2024 Jud Hess LPN * [...] -none Noemi Pham MD documented in this encounterMetrohealth [facility] Center11-21-2022 Miscellaneous Notes* Telephone Encounter - Inocencia Bui LPN - 06/14/2022 3:35 PM EST Mohsen Prince Felder: [id number] - [place] - Rx #: [id number] help? Call us at Outcome Approvedon June 11 CaseId:[id number];Status:Approved;Review Type:Prior Auth;Coverage Start Date:05/12/2022;Coverage End Date:06/11/2023; * Telephone Encounter - Jud Hess LPN - 06/11/2022 11:22 AM EST PA for Enbrel submitted via Cover My Meds this date. If approved new Rx will need sent to [facility]. * Telephone Encounter - Diana Stanley - 06/04/2022 9:59 AM EST Lynette Prince called today. : 1975 Allergies: Meloxicam and Methotrexate (home) [phone] (cell) Reason for call: patient states she spoke with [employer] [facility] the [facility] requesting additional info for medication For ENBREL Please advise Patient last appointment: 05/29/2022 The patients preferred pharmacy has been captured for this encounter? yes RHODA STARR documented in this encounterMetrohealth [facility]11-10-2022 Miscellaneous Notes* Telephone Encounter - Inocencia Bui LPN - 06/03/2022 9:36 AM EST Follow up message from 05/17/22 encounter and orders. documented in this encounterMetrohealth [facility] Center11-07-2022 Miscellaneous Notes* Telephone Encounter - Linnea Sanders [...] Days Visit Type Date Time Department [facility] 10/20/2022 9:40 AM [facility] CBC: None on file in [...] Instance) Lab Orders None documented in this encounterMetrohealth [facility] Center11-02-2022 [facility] Gastroenterology Follow-Up Patient Visit CHIEF COMPLAINT Chief Complaint Patient presents with Diarrhea Follow-up Patient states she has randomly lost control of her bowels in the recent weeks. HISTORY OF PRESENT ILLNESS: Lynette Hairston is a 46 y.o. female with PMH of gastroparesis, fatty liver, migraine headache, RA (follows with rheumatology in [place]), anxiety, POTS and IBS. She was last [...] afternoon, and at bed (more content not included)...[facility]10-24-2022 Miscellaneous Notes* Telephone Encounter - Jud Hess LPN - 05/17/2022 4:26 PM EDT message sent to patient. * Telephone Encounter [...] Mason - 05/17/2022 8:25 AM EDT Lynette Deshaun Prince called today. : 1975 Allergies: Meloxicam and Methotrexate (home) [phone] (cell) Reason for call: Patient called asking for appointment wih Dr Pham. She states she is having her [...] not asked Glory Mason documented in this encounterMetrohealth [facility] Miscellaneous Notes* Telephone Encounter - Jud Hess LPN - 12/29/2021 2:47 PM EDT CHELSEY for Enbrel submitted via Cover My Meds. Felder: [id number] Pend for determination * Telephone Encounter - uJd Hess LPN - 12/29/2021 10:49 AM EDT [...] message on voicemail) ' [facility] Miscellaneous Notes* Telephone Encounter - Jud Hess LPN - 10/28/2021 12:13 PM EDT Rx placed in outgoing mail this date. Patient notified via [employer]. * Telephone Encounter - Noemi Pham MD - 10/28/2021 11:59 AM EDT rx for handicapped written, please mail to patient. Noemi Pham MD documented in this encounter[facility]* Diagnosis Neuropathic pain- Primary Neuralgia, neuritis, and radiculitis, unspecified documented in this encounter [facility] Work Phone: evaluation note* Diagnosis Fibromyalgia- Primary Mylagia and myositis, unspecified documented in this encounter [facility] noteNo assessment information availableParkview Health Work Phone: Evaluation note* Diagnosis Rheumatoid arthritis involving multiple sites, unspecified whether rheumatoid factor present (HCC)- Primary [facility]* Diagnosis Myalgia- Primary Mylagia and myositis, unspecified documented in this encounter [facility] note* Diagnosis Fatigue, unspecified type- Primary Elevated aldolase level Other nonspecific abnormal serum enzyme levels Generalized weakness Other malaise and fatigue documented in this encounter [facility] note* Diagnosis Fatigue, unspecified type Elevated aldolase level Other nonspecific abnormal serum enzyme levels Generalized weakness Other malaise and fatigue documented in this encounter [facility] note* Diagnosis Rheumatoid arthritis involving multiple sites, unspecified whether rheumatoid factor present (HCC)- Primary documented in this encounter [facility] note* Diagnosis Pain in joint, multiple sites- Primary Trochanteric bursitis of both hips Enthesopathy of hip region documented in this encounter [facility] note* Diagnosis Pain in joint, multiple sites documented in this encounter [facility] noteNo InformationNort Aimet[employer] Other Evaluation note* Diagnosis Status migrainosus- Primary Variants of migraine, not elsewhere classified, without mention of intractable migraine without mention of status migrainosus Migraine without aura and without status migrainosus, not intractable Cervicalgia Fibromyalgia Unspecified myalgia and myositis Paresthesias Disturbance of skin sensation Trapezius muscle spasm Vertigo Dizziness and giddiness documented in this [facility]* Diagnosis Primary hypertension- Primary Unspecified essential hypertension Coronary artery vasospasm ([facility]) Prinzmetal angina Intermittent palpitations Obstructive sleep apnea Obstructive sleep apnea (adult) (pediatric) documented in this encounter [facility] note* Diagnosis Chronic bilateral low back pain without sciatica- Primary documented in this encounter [facility] note* Diagnosis Spinal stenosis of lumbar region with neurogenic claudication- Primary Spinal stenosis, lumbar region, with neurogenic claudication documented in this encounter [facility] general Narrative - Reported* Type Description Date Medical History rheumatoid arthritis Medical History anxiety Medical History chronic depression Medical History coronary artery disease Surgical History heart catheterization Surgical History gall bladder removed Surgical History tonsillectomy and adenoidectomy Surgical History HYSTERECTOMY Surgical History appendectomy Hospitalization History surgeries [facility] Other [facility] Discharge instructions* Instructions* Garfield Restrepo [...] a follow up appointment THANK YOU!!! From [facility] On behalf of the Emergency Department staff at [facility], I would like to thank you for giving us the opportunity to address your health care needs and concerns. We hope that during your visit, our service was delivered in a professional and caring manner. Please keep [facility] in mind as we walk with you [...] how we did during your visit at [email or web address] and let us know about your experience * Attachments The following attachments cannot be sent through Care Everywhere. * Neuropathic Pain (Mexican) documented in this encounterMandalay Sports Media ([employer]) Work Phone: InstructionsNot on filedocumented in this encounter [employer] SystemInstructionsNot on filedocumented in this encounter [facility] SystemInstructionsNot on filedocumented in this encounter ProMIntuiLab SystemInstructionsNot on filedocumented in this encounter [facility] CenterIntuiLab SystemReason for referral (narrative)* Outpatient Procedure (Routine) - Pending Review Specialty Diagnoses / Procedures Referred By Contac t Referred To Contact [facility] Diagnoses Fatigue, unspecified type Elevated aldolase level Generalized weakness Procedures EMG(NEURO/NI) NERVE CONDUCTION STUDIES 9-10 STUDIES Liz Connolly MD [address] [id number] [facility] [address] [place] [address] Referral ID Status Reason Start Date Expiration Date Visits Requested Visits Authorized [id number] Pending Review Auto-Generat ed Referral 11/23/2022 11/24/2023 1 1 [facility] for referral (narrative)* Diagnostic Procedure Only (Routine) - Closed Specialty Diagnoses / Procedures Referred By Contac t Referred To Contact XR IMAGING Diagnoses Pain in joint, multiple sites Procedures XR LUMBAR GENERAL 3V AP/LAT/L5-S1 RADEX SPINE LUMBOSACRAL 2/3 VIEWS Noemi Pham MD [address] [place] [address] Xr Imaging [address] [address] Referral ID Status Reason Start Date Expiration Date V isits Requested Visits Authorized [id number] Closed Auto-Generate d Referral 06/24/2023 07/23/2024 1 1 [facility] for referral (narrative)* Diagnostic Procedure Only (Routine) - Closed Specialty Diagnoses / Procedures Referred By Contac t Referred To Contact XR IMAGING Diagnoses Pain in joint, multiple sites Procedures XR LUMBAR GENERAL 3V AP/LAT/L5-S1 RADEX SPINE LUMBOSACRAL 2/3 VIEWS Noemi Pham MD [address] [facility] [place] [address] Xr Imaging [id number] Referral ID Status Reason Start Date Expiration Date V isits Requested Visits Authorized [id number] Closed Auto-Generate d Referral 06/24/2023 07/23/2024 1 1 [facility] for referral (narrative)* Consultation (Routine) - Pending Review Specialty Diagnoses / Procedures Referred By Contac t Referred To Contact Pulmonary Medicine Diagnoses Obstructive sleep apnea Michael Perkins MD [address] [place] [address] Olegario Joseph MD [address] [address] Referral ID Status Reason Start Date Expiration Date Visits Requested Visits Authorized [id number] Pending Review Specialty Services Required 09/02/2023 09/01/2024 1 1 [facility] for referral (narrative)* Diagnostic Procedure Only (Routine) - Pending Review Specialty Diagnoses / Procedures Referred By Contac t Referred To Contact XR IMAGING Diagnoses Chronic bilateral low back pain without sciatica Procedures XR LUMBAR GENERAL 3V AP/LAT/L5-S1 RADEX SPINE LUMBOSACRAL 2/3 VIEWS Noemi Pham MD [address] [phone] [place] [id number] Referral ID Status Reason Start Date Expiration Date Visits Requested Visits Authorized [id number] Pending Review Auto-Generat ed Referral 09/19/2023 10/18/2024 1 1 [facility] for visit Narrative* Outpatient Procedure (Routine) - Closed Specialty Diagnoses / Procedures Referred By Contac t Referred To Contact [facility] Diagnoses Fatigue, unspecified type Elevated aldolase level Generalized weakness Procedures EMG(NEURO/NI) NERVE CONDUCTION STUDIES 9-10 STUDIES Liz Connolly MD [address] [place] [address] [facility] [address] [place] [address] Referral ID Status Reason Start Date Expiration Date V isits Requested Visits Authorized [id number] Closed Auto-Generate d Referral 11/23/2022 11/24/2023 1 1 [facility] Advance Directives No Advanced Directives Records FoundDocuments on File Type Date Recorded Patient Experimental Worker Expl anation ACP-Advance Directive ACP-Power of Corporate Receptionist Documents on File Type Date Recorded Patient Experimental Worker Expl anation Advance Directives and Living Will Power of Corporate Receptionist Documents on File Type Date Recorded Patient Experimental Worker Expl anation ACP-Advance Directive ACP-Power of Corporate Receptionist Latest Code Status on File Code Status [...] Records Found Procedure Findings Note MR#: [id number] [facility] Pt. Name: Lynette Prince Surgery Date: 08/22/2019 Room #: Z0 Date of : 1975 PROCEDURE NOTE ATTENDING: Dina Zhou M.D. PROCEDURE PERFORMED: Esophagogastroduodenoscopy. JEWEL SAWYER: Zackary Narvaez M.D. ANESTHESIA USED: Conscious sedation [...] ice in a towel. Please call your sample grinder tomorrow and your family physician tomorrow to schedule follow-up for 1to 2 days Return to the emergency room for worsening pain swelling numbness tingling or other emergent concerns * Attachments The following attachments cannot be sent through Care Everywhere. * Foot Sprain (Mexican) documented in this encounter Assessments Diagnosis Sprain [...] 12:19 PM EST 80 mg Hip, Right Reason for Referral Specialty Diagnoses / Procedures Referred By Contac t Referred To Contact MR IMAGING Diagnoses Spinal stenosis of lumbar region with neurogenic claudication Procedures MRI LUMBAR SPINE WO IVCON MRI SPINAL CANAL LUMBAR W/O CONTRAST MATERIAL Noemi Pham MD [address] [facility] [address] [place] [address] Mr Imaging [id number] Referral ID Status Reason Start Date Expiration Date Visits Requested Visits Authorized [id number] Pending Review Auto-Generat ed Referral 09/21/2023 10/20/2024 1 1 Additional Source Comments Reason for Visit (unrecogniz ed section and content) Status Reason Specialty Diagnoses / Procedures Referred By Contact Referred To Contact Authorized Physical Therapy Diagnoses Plantar fasciitis Procedures eval and treat Isael Yoder MD [address] [facility] [place] [address] Sander Jauregui, PT Reason Comments Foot Pain [...] Noemi Pham MD [address] [place] [address] [place] [id number] Referral ID Status Reason Start Date Expiration Date V isits Requested Visits Authorized [id number] Closed Auto-Generate d Referral 06/24/2023 07/23/2024 1 1 Reason Onset Date Comments Headache 07/21/2023 Reason Comments Migraine Migraine cocktail Reason Onset Date Comments Appointment 09/01/2023 Reason Comments Follow-up Hypertension Reason Comments Pain Reason Comments Results X-ray results XR lum bar spine INFORMATION SOURCE (unrecogn ized section and content) DATE CREATED AUTHOR 08/14/2020 [facility] DATE CREATED AUTHOR AUTHOR'S ORGANIZ ATION 07/25/2021 [facility] DATE CREATED AUTHOR AUTHOR'S ORGANIZ ATION 09/20/2022 [facility] DATE CREATED AUTHOR AUTHOR'S ORGANIZ ATION 10/30/2022 [facility] DATE CREATED AUTHOR AUTHOR'S ORGANIZ ATION 03/25/2023 [facility] DATE CREATED AUTHOR AUTHOR'S ORGANIZ ATION 06/27/2023 [facility] DATE CREATED AUTHOR AUTHOR'S ORGANIZ ATION 06/27/2023 [facility] DATE CREATED AUTHOR AUTHOR'S ORGANIZ ATION 09/05/2023 [facility] DATE CREATED AUTHOR AUTHOR'S ORGANIZ ATION 09/30/2023 [facility] Ordered Prescriptions (unrec ognized section and content) [...] or prosecute any alcohol or drug abuse patient.[facility] CenterIn the event this information is protected by the Federal Confidentiality of Alcohol and Drug Abuse Patient Records regulations: The Federal rules restrict any use of the information to criminally investigate or prosecute any alcohol or drug abuse patient.[facility] CenterIn the event this information is protected by the Federal Confidentiality of Alcohol and Drug Abuse Patient Records regulations: The Federal rules restrict any use of the information to criminally investigate or prosecute any alcohol or drug abuse patient.[facility] CenterIn the event this information is protected by the Federal Confidentiality of Alcohol and Drug Abuse Patient Records regulations: The Federal rules restrict any use of the information to criminally investigate or prosecute any alcohol or drug abuse patient.[facility] CenterIn the event this information is protected by the Federal Confidentiality of Alcohol and Drug Abuse Patient Records regulations: The Federal rules restrict any use of the information to criminally investigate or prosecute any alcohol or drug abuse patient.[facility] CenterIn the event this information is protected by the Federal Confidentiality of Alcohol and Drug Abuse Patient Records regulations: The Federal rules restrict any use of the information to criminally investigate or prosecute any alcohol or drug abuse patient.[facility] CenterIn the event this information is protected by the Federal Confidentiality of Alcohol and Drug Abuse Patient Records regulations: The Federal rules restrict any use of the information to criminally investigate or prosecute any alcohol or drug abuse patient.[facility] CenterIn the event this information is protected by the Federal Confidentiality of Alcohol and Drug Abuse Patient Records regulations: The Federal rules restrict any use of the information to criminally investigate or prosecute any alcohol or drug abuse patient.[facility] CenterIn the event this information is protected by the Federal Confidentiality of Alcohol and Drug Abuse Patient Records regulations: The Federal rules restrict any use of the information to criminally investigate or prosecute any alcohol or drug abuse patient.[facility] CenterIn the event this information is protected by the Federal Confidentiality of Alcohol and Drug Abuse Patient Records regulations: The Federal rules restrict any use of the information to criminally investigate or prosecute any alcohol or drug abuse patient.[facility] CenterIn the event this information is protected by the Federal Confidentiality of Alcohol and Drug Abuse Patient Records regulations: The Federal rules restrict any use of the information to criminally investigate or prosecute any alcohol or drug abuse patient.[facility] CenterIn the event this information is protected by the Federal Confidentiality of Alcohol and Drug Abuse Patient Records regulations: The Federal rules restrict any use of the information to criminally investigate or prosecute any alcohol or drug abuse patient.[facility] CenterIn the event this information is protected by the Federal Confidentiality of Alcohol and Drug Abuse Patient Records regulations: The Federal rules restrict any use of the information to criminally investigate or prosecute any alcohol or drug abuse patient.[facility] CenterIn the event this information is protected by the Federal Confidentiality of Alcohol and Drug Abuse Patient Records regulations: The Federal rules restrict any use of the information to criminally investigate or prosecute any alcohol or drug abuse patient.[facility] CenterIn the event this information is protected by the Federal Confidentiality of Alcohol and Drug Abuse Patient Records regulations: The Federal rules restrict any use of the information to criminally investigate or prosecute any alcohol or drug abuse patient.[facility] CenterIn the event this information is protected by the Federal Confidentiality of Alcohol and Drug Abuse Patient Records regulations: The Federal rules restrict any use of the information to criminally investigate or prosecute any alcohol or drug abuse patient.[facility] CenterIn the event this information is protected by the Federal Confidentiality of Alcohol and Drug Abuse Patient Records regulations: The Federal rules restrict any use of the information to criminally investigate or prosecute any alcohol or drug abuse patient.[facility] CenterIn the event this information is protected by the Federal Confidentiality of Alcohol and Drug Abuse Patient Records regulations: The Federal rules restrict any use of the information to criminally investigate or prosecute any alcohol or drug abuse patient.[facility] CenterIn the event this information is protected by the Federal Confidentiality of Alcohol and Drug Abuse Patient Records regulations: The Federal rules restrict any use of the information to criminally investigate or prosecute any alcohol or drug abuse patient.[facility] CenterIn the event this information is protected by the Federal Confidentiality of Alcohol and Drug Abuse Patient Records regulations: The Federal rules restrict any use of the information to criminally investigate or prosecute any alcohol or drug abuse patient.[facility] CenterIn the event this information is protected by the Federal Confidentiality of Alcohol and Drug Abuse Patient Records regulations: The Federal rules restrict any use of the information to criminally investigate or prosecute any alcohol or drug abuse patient.[facility] CenterIn the event this information is protected by the Federal Confidentiality of Alcohol and Drug Abuse Patient Records regulations: The Federal rules restrict any use of the information to criminally investigate or prosecute any alcohol or drug abuse patient.[facility] CenterIn the event this information is protected by the Federal Confidentiality of Alcohol and Drug Abuse Patient Records regulations: The Federal rules restrict any use of the information to criminally investigate or prosecute any alcohol or drug abuse patient.[facility] CenterIn the event this information is protected by the Federal Confidentiality of Alcohol and Drug Abuse Patient Records regulations: The Federal rules restrict any use of the information to criminally investigate or prosecute any alcohol or drug abuse patient.[facility] CenterIn the event this information is protected by the Federal Confidentiality of Alcohol and Drug Abuse Patient Records regulations: The Federal rules restrict any use of the information to criminally investigate or prosecute any alcohol or drug abuse patient.[facility] CenterIn the event this information is protected by the Federal Confidentiality of Alcohol and Drug Abuse Patient Records regulations: The Federal rules restrict any use of the information to criminally investigate or prosecute any alcohol or drug abuse patient.[facility] CenterIn the event this information is protected by the Federal Confidentiality of Alcohol and Drug Abuse Patient Records regulations: The Federal rules restrict any use of the information to criminally investigate or prosecute any alcohol or drug abuse patient.[facility] CenterIn the event this information is protected by the Federal Confidentiality of Alcohol and Drug Abuse Patient Records regulations: The Federal rules restrict any use of the information to criminally investigate or prosecute any alcohol or drug abuse patient.[facility] Care Teams (unrecognized sec tion and content) Survey Research Analyst Relationship Specialty Start Date End Date Toy Obrien MD PCP - General Family Practice 07/05/16 Survey Research Analyst Relationship Specialty Start Date End Date Toy Obrien MD PCP - General Family Practice 07/05/16 Survey Research Analyst Relationship Specialty Start Date End Date Toy Obrien MD PCP - General Family Medicine 07/05/16 Survey Research Analyst Relationship Specialty Start Date End Date Toy Obrien MD PCP - General Family Medicine 07/05/16 Survey Research Analyst Relationship Specialty Start Date End Date Toy Obrien MD PCP - General Family Medicine 07/05/16 Team Status: Inactive Member Role Status Dates CLEMENTINA DegrootC Attending Provider Active Survey Research Analyst Relationship Specialty Start Date End Date Toy Obrien MD PCP - General Family Medicine 07/05/16 Survey Research Analyst Relationship Specialty Start Date End Date Toy Obrien MD PCP - General Family Medicine 07/05/16 Survey Research Analyst Relationship Specialty Start Date End Date Toy Obrien MD PCP - General Family Medicine 07/05/16 Survey Research Analyst Relationship Specialty Start Date End Date Toy Obrien MD PCP - General Family Medicine 07/05/16 Survey Research Analyst Relationship Specialty Start Date End Date Toy Obrien MD PCP - General Family Medicine 07/05/16 Survey Research Analyst Relationship Specialty Start Date End Date Toy Obrien MD PCP - General Family Medicine 07/05/16 Survey Research Analyst Relationship Specialty Start Date End Date Toy Obrien MD PCP - General Family Medicine 07/05/16 Survey Research Analyst Relationship Specialty Start Date End Date Toy Obrien MD PCP - General Family Medicine 07/05/16 Survey Research Analyst Relationship Specialty Start Date End Date Toy Obrien MD PCP - General Family Medicine 07/05/16 Survey Research Analyst Relationship Specialty Start Date End Date Toy Obrien MD PCP - General Family Medicine 07/05/16 Survey Research Analyst Relationship Specialty Start Date End Date Toy Obrien MD PCP - General Family Medicine 07/05/16 Survey Research Analyst Relationship Specialty Start Date End Date Obrien, Toy P, MD [facility] [place] [phone] PCP - General Family Medicine 09/06/22 Survey Research Analyst Relationship Specialty Start Date End Date Tyo Obrien MD [facility] [place] [phone] PCP - General Family Medicine 09/06/22 Survey Research Analyst Relationship Specialty Start Date End Date Toy Obrien MD [facility] [place] [phone] PCP - General Family Medicine 09/06/22 Survey Research Analyst Relationship Specialty Start Date End Date Toy Obrien MD [facility] [place] [phone] PCP - General Family Medicine 09/06/22 Survey Research Analyst Relationship Specialty Start Date End Date Toy Obrien MD [facility] [place] [phone] PCP - General Family Medicine 09/06/22 Survey Research Analyst Relationship Specialty Start Date End Date Toy Obrien MD PCP - General Family Medicine 07/05/16 Survey Research Analyst Relationship Specialty Start Date End Date Toy Obrien MD PCP - General Family Medicine 07/05/16 Survey Research Analyst Relationship Specialty Start Date End Date Toy Obrien MD PCP - General Family Medicine 07/05/16 Survey Research Analyst Relationship Specialty Start Date End Date Toy Obrien MD PCP - General Family Medicine 07/05/16 Goals (unrecognized section and content) Goals may [...] BE BASED ON THE PRIMARY CLINICAL RECORDS. [employer] provides no warranty or guarantee of the accuracy or completeness of information in this document.
[2023-10-07 11:09] LABS: Anion Gap 12.5; Carbon Dioxide 28.2 mmol/L (21.0-32.0); Chloride 105 mmol/L (98-107); Estimated GFR (African America >60 (>=60); Estimated GFR (Non-African Ame 50 (>=60); Potassium 4.7 mmol/L (3.5-5.1); Sodium 141 mmol/L (136-145)
== END 2023-10-07 08:12 | disposition home or self-care (01) ==
LOC: LAB 08:12
DX: R94.4 Abnormal results of kidney function studies (principal)
CPT/HCPCS: 36415; 80051; 82565; 84520

== ENCOUNTER 2023-10-07 08:23 | Outpatient (OUT) | payer OTHER, SELFPAY ==
--- NOTE | 2023-10-07 | MM_ITS ---
Patient Name: ROSELIA LANDRY MR#: [id number] : 1975 Exam Date: 10/07/2023 Ordering Doctor: Non-Staff Physician RADIOLOGY REPORT PROCEDURE: MM TOMOSYNTHESIS SCREENING BI COMPARISON: MM TOMOSYNTHESIS SCREENING BI, 10/08/2022. INDICATIONS: Screening Calculator Name NCI Breast Cancer Risk Assessment Tool 5 Year Breast Cancer Risk 0.70% Lifetime Breast Cancer Risk 7.60% Personal Breast Cancer No Personal Ovarian Cancer No Treatments None Family Cancers None LOCATION: [facility] BREAST COMPOSITION: Scattered areas fibroglandular density. FINDINGS: DIAGNOSTIC CATEGORY 2--BENIGN FINDING. NO CHANGE FROM COMPARISON. Scattered benign-appearing lymph nodes are present. Scattered benign-appearing calcifications are present. RIGHT BREAST: No significant suspicious finding. LEFT BREAST: No significant suspicious finding. RECOMMENDATIONS: ROUTINE MAMMOGRAM AND CLINICAL EVALUATION IN 12 MONTHS. PLEASE NOTE: A NORMAL MAMMOGRAM DOES NOT EXCLUDE THE POSSIBILITY OF BREAST CANCER. A CLINICALLY SUSPICIOUS PALPABLE LUMP SHOULD BE BIOPSIED. Dictated by: Misha Kern MD on 10/18/2023 at 12:54 Approved by: Misha Kern MD on 10/18/2023 at 12:55
--- OUTSIDE RECORDS SUMMARY | 2023-10-07 08:27 | XMS_ITS | CCD ---
Author Name Unknown Address [address] [place] [address] Organization [facility] Care Team Providers Care Canteen Operator Name Role Phone Tyo Obrien Primary Care Provider [phone] TOY OBRIEN Primary Care Unavailable GARFIELD RESTREPO Attending Unavailable TOY OBRIEN Primary Care Unavailable GARFIELD RESTREPO Attending Unavailable BLANCA DAWN Referring Unavailable TOY OBRIEN Primary Care Unavailable BLANCA DAWN Referring Unavailable TOY OBRIEN Primary Care Unavailable Toy Obrien MD Primary Care Provider Toy Obrien MD Primary Care Provider ZOEY Monson Attending Provider [phone] Toy Obrien MD Primary Care Provider Jud [...] Unavailable TOY OBRIEN Primary Care Unavailable TOY OBIREN Primary Care Unavailable NASEEM LOUISE Attending Unavailable NASEEM LOUISE Attending Unavailable NASEEM LOUISE Referring Unavailable TOY OBRIEN Primary Care Unavailable Allergies Allergy Classification Reported Allergen(s) Allergy Type Date of Onset Reaction(s) Facility NSAIDs (1 source) meloxicam Drug Allergy 7 [facility] (20 sources) meloxicam; Translations: [MELOXICAM] Drug Allergy 7 [place], [place] (20 sources) Methotrexate; Translations: [METHOTREXATE] Drug Allergy 5 GI Upset, [facility] (8 sources) Isosorbide; Translations: [ISOSORBIDE MONONITRATE] Drug Allergy 2 Headache, Vomiting [facility] (3 sources) Isosorbide Dinitrate Drug Allergy Unknown Qubulus Other Medications Current Medications Medication Drug Class(es) [...] 24 ABSOLUTE BASOPHIL 0.1 X10E9/L Normal 0.0-0.[address] [facility] Comment on above: Performed By: #### C NO, CMP, 70870-6, 99147-5 #### [facility] ([id number]) [address] [facility] [address] ABSOLUTE NEUTROPHIL 6.1 X10E9/L Normal 1.5-6.6 [facility] Comment on above: Performed By: #### C BCA, CMP, 00270-8, 50206-0 #### [facility] ([id number]) [address] [facility] [place] [address] Basophils/100 WBC (Bld) 0.9 % Normal [facility] Comment on above: Performed By: #### C BCA, CMP, 42254-3, 60780-8 #### [facility] ([id number]) [address] [facility] [place] [address] Eosinophils (Bld) [#/Vol] 0.2 10*3/uL Normal 0.0-0.4 [facility] Comment on above: Performed By: #### C BCA, CMP, 59837-8, 85366-3 #### [facility] ([id number]) [address] [facility] [place] [address] Eosinophils/100 WBC (Bld) 2.0 % Normal [facility] Comment on above: Performed By: #### C BCA, CMP, 22188-1, 68752-3 #### [facility] ([id number]) [address] [place] [address] Erythrocyte distribution width (RBC) [Ratio] 13.1 % Normal 11.5-15.0 [facility] Comment on above: Performed By: #### C BCA, CMP, 96720-6, 68556-2 #### [facility] ([id number]) [address] [facility] [place] [address] Hematocrit (Bld) [Volume fraction] 45.3 % Normal 35-47 [facility] Comment on above: Performed By: #### C BCA, CMP, 84612-2, 68511-7 #### [facility] ([id number]) [address] [place] [address] Hemoglobin (Bld) [Mass/Vol] 15.4 g/dL Normal 11.7-15.5 [facility] Comment on above: Performed By: #### C BCA CMP, 15903-8, 84016-4 #### [facility] ([id number]) [address] [place] [address] Lymphocytes (Bld) [#/Vol] 2.4 10*3/uL Normal 1.0-3.5 [facility] Comment on above: Performed By: #### C NO CMP, 89744-0, 87297-0 #### [facility] ([id number]) [address] [place] [address] Lymphocytes/100 WBC (Bld) 25.2 % Normal [facility] Comment on above: Performed By: #### Denis SARABIA CMP, 04904-8, 78245-5 #### [facility] ([id number]) [address] [place] [address] MCH (RBC) [Entitic mass] 31.8 pg Normal 27-34 [facility] Comment on above: Performed By: #### C NO, CMP, 96627-9, 68855-2 #### [facility] ([id number]) [address] [place] [address] MCHC (RBC) [Mass/Vol] 33.9 g/dL Normal 32-36 [facility] Comment on above: Performed By: #### C BCA, CMP, 39728-2, 96754-7 #### [facility] ([id number]) [address] [place] [place] [address] MCV (RBC) [Entitic vol] 94 fL Normal 80-100 [facility] Comment on above: Performed By: #### C BCA, CMP, 51916-2, 25323-0 #### [facility] ([id number]) [address] [place] [place] [address] Monocytes (Bld) [#/Vol] 0.7 10*3/uL Normal 0-0.9 [facility] Comment on above: Performed By: #### C BCA, CMP, 91634-7, 69960-3 #### [facility] ([id number]) [address] [facility] [address] Monocytes/100 WBC (Bld) 7.4 % Normal [facility] Comment on above: Performed By: #### C BCA, CMP, 07232-5, 01993-9 #### [facility] ([id number]) [address] [facility] [address] Neutrophils/100 WBC (Bld) 64.5 % Normal [facility] Comment on above: Performed By: #### C BCA, CMP, 28477-1, 14822-1 #### [facility] ([id number]) [address] [facility] [address] Platelet mean volume (Bld) [Entitic vol] 9.4 fL Normal 7-12 [facility] Comment on above: Performed By: #### C BCA, CMP, 35170-6, 68411-3 #### [facility] ([id number]) [address] [facility] [address] Platelets (Bld) [#/Vol] 186 10*3/uL Normal 150-450 [facility] Comment on above: Performed By: #### C BCA, CMP, 66895-0, 17979-4 #### [facility] ([id number]) [address] [place] [address] RBC COUNT 4.83 X10E12/L Normal 3.80-5.20 [facility] Comment on above: Performed By: #### C BCA, CMP, 96402-1, 30221-9 #### [facility] ([id number]) [address] [place] [address] WBC (Bld) [#/Vol] 9.5 10*3/uL Normal 4.0-11.[address] [facility] Comment on above: Performed By: #### C BCA, CMP, 32555-0, 45751-6 #### [facility] ([id number]) [address] [place] [address] COMPREHENSIVE METABOLIC PANE Priyank 09-27-2023 Albumin [Mass/Vol] 4.2 g/dL Normal 3.2-5.[address] [facility] Comment on above: Performed By: #### C BCA, CMP, 32950-8, 35970-3 #### [facility] ([id number]) [address] [place] [address] ALP [Catalytic activity/Vol] 37 U/L Low 39-130 [facility] Comment on above: Performed By: #### C BCA, CMP, 66526-2, 52194-9 #### [facility] ([id number]) [address] [place] [address] ALT [Catalytic activity/Vol] 50 U/L High 0-31 [facility] Comment on above: Performed By: #### C BCA, CMP, 98693-9, 86653-5 #### [facility] ([id number]) [address] [place] [address] Anion gap [Moles/Vol] 10 mmol/L Normal 5-15 [facility] Comment on above: Performed By: #### C BCA, CMP, 58534-0, 08936-1 #### [facility] ([id number]) [address] [place] [address] AST [Catalytic activity/Vol] 41 U/L Normal 0-41 [facility] Comment on above: Performed By: #### C BCA, CMP, 77560-6, 29986-6 #### [facility] ([id number]) [address] [place] [address] Bilirubin [Mass/Vol] 1.4 mg/dL High 0.3-1.2 [facility] Comment on above: Performed By: #### C BCA, CMP, 59069-3, 30835-0 #### [facility] ([id number]) [address] [place] [address] Calcium [Mass/Vol] 9.1 mg/dL Normal 8.5-10.[address] [facility] Comment on above: Performed By: #### C BCA, CMP, 35950-7, 72219-1 #### [facility] ([id number]) [address] [place] [address] Chloride [Moles/Vol] 103 mmol/L Normal 98-109 [facility] Comment on above: Performed By: #### C BCA, CMP, 33341-7, 46126-2 #### [facility] ([id number]) [address] [place] [address] CO2 [Moles/Vol] 23 mmol/L Normal 22-32 [facility] Comment on above: Performed By: #### C NO, CMP, 19739-9, 68585-4 #### [facility] ([id number]) [address] [place] [address] Creatinine [Mass/Vol] 0.99 mg/dL Normal 0.40-1.00 [facility] Comment on above: Result Comment: METH OD TRACEABLE TO IDMS STANDARD Performed By: #### C NO, CMP, 61405-5, 27717-9 #### [facility] ([id number]) [address] [place] [address] GFR/1.73 sq M.predicted among non-blacks MDRD (S/P/Bld) [Vol rate/Area] 70 mL/min/{1.73_m2} Normal >59 [facility] Comment on above: Result Comment: Reported eGFR is based on the CKD-EPI 1 equation that does not use a race coefficient. Performed By: #### C BCA, CMP, 65295-5, 04212-1 #### [facility] ([id number]) [address] [place] [address] Glucose [Mass/Vol] 98 mg/dL Normal 65-[address] [facility] Comment on above: Performed By: #### C BCA, CMP, 41520-3, 72678-5 #### [facility] ([id number]) [address] [place] [address] Potassium [Moles/Vol] 3.4 mmol/L Low 3.5-5.0 [facility] Comment on above: Performed By: #### C BCA, CMP, 81663-4, 46635-9 #### [facility] ([id number]) [address] [place] [address] Protein [Mass/Vol] 7.5 g/dL Normal 6.0-8.[address] [facility] Comment on above: Performed By: #### C NO CMP, 48220-4, 86358-4 #### [facility] ([id number]) [address] [place] [address] Sodium [Moles/Vol] 136 mmol/L Normal 134-[address] [facility] Comment on above: Performed By: #### C NO CMP, 39957-8, 63946-2 #### [facility] ([id number]) [address] [place] [address] Urea nitrogen [Mass/Vol] 10 mg/dL Normal 5-23 [facility] Comment on above: Performed By: #### C NO CMP, 35502-9, 08800-4 #### [facility] ([id number]) [address] [place] [address] Fibrin D-dimer DDU (PPP) [Ma ss/Vol]on 09-27-2023 D DIMER <150 Normal <255 [facility] Comment on above: Result Comment: Results <255 ng/mL DDU: The presence of a VTE can safely be excluded with a negative D-Dimer result and Wells score. A negative result doesn't exclude the possibility of DIC. The test be repeated along with other diagnostic tests if the patient's symptoms persist or worsen. [email or web address] Performed By: #### C BCA, CMP, 99559-9, 85128-7 #### [facility] ([id number]) [address] [place] [address] SARS/FLU A+B/RSV by NAAT/Mol ecularon 09-27-2023 SARS/FLU [...] operators who are performing tests using either [employer] or [employer] systems and is limited to laboratories that [...] repeat. Fact Sheet for Healthcare Providers: https://www.fda.gov/me nanci/030079/download Fact Sheet for Patients: https://www.fda.gov/me nanci/885567/download Normal [facility] Comment on above: Performed By: #### C OVFLR #### [facility] ([id number]) [address] [facility] [place] [address] TROPONIN Ion 09-27-2023 Troponin I.cardiac [Mass/Vol] ng/mL Normal 0.00-0.04 [facility] Comment on above: Performed By: #### C BCA, CMP, 39780-5, 32411-9 #### [facility] ([id number]) [address] [place] [address] URINE CULTUREon 09-27-2023 Bacteria identified Cx Nom (U) CULTURE RESULTS <10,000 ORGANISMS/ML NORMAL URO GENITAL JIMMY Normal [facility] Comment on above: Performed By: #### 6 30-4 #### [facility] ([id number]) [address] [place] [address], [address] [place] [address] URN MACROSCOPIC NURon 2023 BILIRUBIN GALLO Negative Normal NEG [facility] Comment on above: Performed By: #### N UM #### [facility] ([id number]) [address] [place] [address] BLOOD/HGB GALLO Negative Normal NEG [facility] Comment on above: Performed By: #### N UM #### [facility] ([id number]) [address] [place] [address] GLUCOSE GALLO Negative Normal NEG [facility] Comment on above: Performed By: #### N UM #### [facility] ([id number]) [address] [place] [address] KETONES GALLO Negative Normal NEG [facility] Comment on above: Performed By: #### N UM #### [facility] ([id number]) [address] [place] [address] LEUKOCYTE ESTERASE GALLO Negative Normal NEG [facility] Comment on above: Performed By: #### N UM #### [facility] ([id number]) [address] [place] [address] NITRITE GALLO Positive Abnormal NEG [facility] Comment on above: Performed By: #### N UM #### [facility] ([id number]) [address] [place] [address] PH GALLO 7.0 Normal 5.0-8.5 [facility] Comment on above: Performed By: #### N UM #### [facility] ([id number]) [address] [place] [address] PROTEIN GALLO Negative Normal NEG [facility] Comment on above: Performed By: #### N UM #### [facility] ([id number]) [address] [place] [address] SPECIFIC GRAVITY GALLO 1.020 Normal 1.003-1.035 [facility] Comment on above: Performed By: #### N UM #### [facility] ([id number]) [address] [place] [address] UROBILINOGEN GALLO 0.2 eu/dL Normal <1.1 [facility] Comment on above: Performed By: #### N UM #### [facility] ([id number]) [address] [place] [address] Urine collection deviceon ER EXTRA URINES ER EXTRA URINE ORDER IN PROCESS Normal [facility] Comment on above: Performed By: #### 8 0334-6 #### [facility] ([id number]) [address] [facility] [address] XR CHEST 1 VWon 09-27-2023 XR CHEST 1 VW XR CHEST 1 VW XR CHEST 1 VW CLINICAL INFORMATION: Shortness of breath. COMPARISON: 03/25/23. IMPRESSION: * No acute cardiopulmonary disease. Finalized by Manas Biggs MD on 09/27/2023 3:16 PM Normal [facility] POCT EKGon 09-02-2023 [facility] ALDOLASE BLDon 06-24-2023 Aldolase [Catalytic activity/Vol] 11.2 mU/mL High 1.5 - 8.1 U/L [facility] Aldolase SerPl-cCncon 2022 Aldolase [Catalytic activity/Vol] 11.2 mU/mL High 1.5-8.1 [facility] Comment on above: Order Comment: Speci men Type: BLOOD SPECIMEN Ordering Facility: [facility] Address: [address] [place] [address], [place] [address] Result Comment: This test was developed and its performance characteristics determined by [facility]'s [facility] ([facility]). It has not been cleared or approved by the FDA. [facility] is regulated under CLIA as qualified to perform high-complexity testing. This test is used for clinical purposes. It should not be regarded as investigational or for research. Performed By: #### 1 761-6 #### [facility] CLIA [id number] [address] [facility] [id number] [place] C-REACTIVE PROTEIN (CRP)on 08-25-2022 CRP [Mass/Vol] 0.6 mg/dL <0.9 mg/dL [facility] CBC panel Auto (Bld)on 06-24 Erythrocyte distribution width (RBC) [Ratio] 11.9 % Normal 11.5-15.0 [facility] Comment on above: Order Comment: Mert del valle Type: BLOOD SPECIMEN Ordering Facility: [facility] Address: [address] [place] [address] Performed By: #### 5 8410-2 #### [facility] [place] [id number] [address] [place] [address] [place] Hematocrit (Bld) [Volume fraction] 45.7 % Normal 36.0-46.0 [facility] Comment on above: Order Comment: Mert del valle Type: BLOOD SPECIMEN Ordering Facility: [facility] Address: [address] [place] [address] Performed By: #### 5 8410-2 #### [facility] [place] [id number] [address] [place] [address] [place] Hemoglobin (Bld) [Mass/Vol] 15.5 g/dL Normal 11.5-15.5 [facility] Comment on above: Order Comment: Mert del valle Type: BLOOD SPECIMEN Ordering Facility: [facility] Address: [address] [place] [address] Performed By: #### 5 8410-2 #### [facility] [place] [id number] [address] [place] [address] [place] MCH (RBC) [Entitic mass] 31.6 pg Normal 26.0-34.0 [facility] Comment on above: Order Comment: Speci men Type: BLOOD SPECIMEN Ordering Facility: [facility] Address: [address] [place] [address] Performed By: #### 5 8410-2 #### [facility] CLIA [id number] [address] [place], [place] [address] [place] [address] [place] MCHC (RBC) [Mass/Vol] 33.9 g/dL Normal 30.5-36.0 [facility] Comment on above: Order Comment: Speci men Type: BLOOD SPECIMEN Ordering Facility: [facility] Address: [address] [place] [address] Performed By: #### 5 8410-2 #### [facility] [place] [id number] [address] [place] [address] [place] MCV (RBC) [Entitic vol] 93.1 fL Normal 80.0-100.0 [facility] Comment on above: Order Comment: Speci men Type: BLOOD SPECIMEN Ordering Facility: [facility] Address: [address] [place] [address] Performed By: #### 5 8410-2 #### [facility] [place] [id number] [address] [place] [address] [place] Nucleated RBC (Bld) [#/Vol] 10*3/uL Normal <0.01 [facility] Comment on above: Order Comment: Speci men Type: BLOOD SPECIMEN Ordering Facility: [facility] Address: [address] [place] [address] Performed By: #### 5 8410-2 #### [facility] CLIA [id number] [address] [place] [address] [place] Platelet mean volume (Bld) [Entitic vol] 10.6 fL Normal 9.0-12.7 [facility] Comment on above: Order Comment: Speci men Type: BLOOD SPECIMEN Ordering Facility: [facility] Address: [address] [place] [address] Performed By: #### 5 8410-2 #### [facility] CLIA [id number] [address] [place] [address] [facility] [place] Platelets (Bld) [#/Vol] 192 10*3/uL Normal 150-400 [facility] Comment on above: Order Comment: Speci men Type: BLOOD SPECIMEN Ordering Facility: [facility] Address: [address] [place] [address] Performed By: #### 5 8410-2 #### [facility] CLIA [id number] [address] [place], [place] [address] [place] [address] [place] RBC (Bld) [#/Vol] 4.91 10*6/uL Normal 3.90-5.20 [facility] Comment on above: Order Comment: Speci men Type: BLOOD SPECIMEN Ordering Facility: [facility] Address: [address] [place] [address] Performed By: #### 5 8410-2 #### [facility] [place] [id number] [address] OF [facility] WBC (Bld) [#/Vol] 8.95 10*3/uL Normal 3.70-11.00 [facility] Comment on above: Order Comment: Speci men Type: BLOOD SPECIMEN Ordering Facility: [facility] Address: [address] [place] [address] Performed By: #### 5 8410-2 #### [facility] [place] [id number] [address] [place] [address] [place] Erythrocyte distribution width (RBC) [Ratio] 11.9 % 11.5 - 15.0 % [facility] Hematocrit (Bld) [Volume fraction] 45.7 % 36.0 - 46.0 % [facility] Hemoglobin (Bld) [Mass/Vol] 15.5 g/dL 11.5 - 15.5 g/dL [facility] MCH (RBC) [Entitic mass] 31.6 pg 26.0 - 34.0 pg [facility] MCHC (RBC) [Mass/Vol] 33.9 g/dL 30.5 - 36.0 g/dL [facility] MCV (RBC) [Entitic vol] 93.1 fL 80.0 - 100.0 fL [facility] Nucleated RBC (Bld) [#/Vol] <0.01 k/uL [facility] Platelet mean volume (Bld) [Entitic vol] 10.6 fL 9.0 - 12.7 fL [facility] Platelets (Bld) [#/Vol] 192 10*3/uL 150 - 400 k/uL [facility] RBC (Bld) [#/Vol] 4.91 10*6/uL 3.90 - 5.2 0 m/uL [facility] WBC (Bld) [#/Vol] 8.95 10*3/uL 3.70 - 11. 00 k/uL [facility] CK CREATINE KINASEon 023 CK [Catalytic activity/Vol] 119 U/L 42 - 196 U/L [facility] CK SerPl-cCncon 06-24-2023 CK [Catalytic activity/Vol] 119 U/L Normal 42-196 [facility] Comment on above: Order Comment: Speci men Type: BLOOD SPECIMEN Ordering Facility: [facility] Address: [address] [place] [address] [place] [address] Performed By: #### 2 157-6, 1987-11, 92331-2 #### [facility] CLIA [id number] [address] CNOVon 06-24-2023 CNOV Office Visit (HYUN ) LYNETTE HAIRSTON ([id number]) 1975 F Date Time Provider Department 06/24/23 [...] bursa injection Informed Consent Consent Obtained: Verbal [place] Protocol A moment to CARE was completed. [...] myopthay and (more content not included)... Normal [facility] CRP SerPl-mCncon 06-24-2023 CRP [Mass/Vol] 0.6 mg/dL Normal <0.9 [place] [facility] Comment on above: Order Comment: Speci men Type: BLOOD SPECIMEN Ordering Facility: [facility] Address: [address] [place] [address] Performed By: #### 2 157-6, 1987-11, #### [facility] CLIA [id number] [address] [place] [address] [place] Comprehensive metabolic 2000 panelon 06-24-2023 Albumin [Mass/Vol] 4.5 g/dL Normal 3.9-4.9 [facility]sal[facility]apivandana Comment on above: Order Comment: Lynni ivon Type: BLOOD SPECIMEN Ordering Facility: [facility] Address: [address] [place] [address] Performed By: #### 2 157-6, 1987-11, #### [facility] CLIA [id number] [address] [place] [address] [place] ALP [Catalytic activity/Vol] 46 U/L Normal 34-123 [facility] Comment on above: Order Comment: Speci men Type: BLOOD SPECIMEN Ordering Facility: [facility] Address: [address] [place] [address] Performed By: #### 2 157-6, 1987-11, #### [facility] CLIA [id number] [address] [place] [address] [place] ALT [Catalytic activity/Vol] 46 U/L High 7-38 [facility] Comment on above: Order Comment: Speci men Type: BLOOD SPECIMEN Ordering Facility: [facility] Address: [address] [place] [address] Performed By: #### 2 157-6, 1987-11, #### [facility] CLIA [id number] [address] [place] [address] [place] Anion gap [Moles/Vol] 8 mmol/L Low 9-18 [facility] Comment on above: Order Comment: Speci men Type: BLOOD SPECIMEN Ordering Facility: [facility] Address: [address] [place] [address] Performed By: #### 2 157-6, 1987-11, #### [facility] CLIA [id number] [place] [address] [place] AST [Catalytic activity/Vol] 39 U/L High 13-35 [facility] Comment on above: Order Comment: Speci men Type: BLOOD SPECIMEN Ordering Facility: [facility] Address: [address] [place] [address] Performed By: #### 2 157-6, 1987-11, #### [facility] CLIA [id number] [place] [address] [place] Bilirubin [Mass/Vol] 1.2 mg/dL Normal 0.2-1.3 [facility] Comment on above: Order Comment: Speci men Type: BLOOD SPECIMEN Ordering Facility: [facility] Address: [address] [place] [address] Performed By: #### 2 157-6, 1987-11, #### [facility] CLIA [id number] [place] [address] [place] Calcium [Mass/Vol] 9.5 mg/dL Normal 8.5-10.2 [facility] Comment on above: Order Comment: Speci men Type: BLOOD SPECIMEN [facility]ing Facility[facility] Address: [address] [place] [address] Performed By: #### 2 157-6, 1987-11, #### [facility] CLIA [id number] [address] [place] [address] [place] Chloride [Moles/Vol] 105 mmol/L Normal 97-105 [facility] Comment on above: Order Comment: Speci men Type: BLOOD SPECIMEN Ordering Facility: [facility] Address: [address] [id number] Performed By: #### 2 157-6, #### [facility] CLIA [id number] [address] [place] [address] [place] CO2 [Moles/Vol] 27 mmol/L Normal 22-30 [facility] Comment on above: Order Comment: Speci men Type: BLOOD SPECIMEN [facility]ing Facility: [facility] Address: [address] [place] [address] Performed By: #### 2 157-6, #### [facility] CLIA [id number] [address] [place] [address] [place] Creatinine [Mass/Vol] 1.10 mg/dL High 0.58-0.96 [facility] Comment on above: Order Comment: Speci men Type: BLOOD SPECIMEN [facility] Facility: [facility] Address: [address] [place] [address] Performed By: #### 2 1576, #### [facility] CLIA [id number] [address] [place] [address] [place] Creatinine and Glomerular filtration rate.predicted panel (S/P/Bld) 62 mL/min/1.73m??? Normal >=60 [facility] Comment on above: Order Comment: Speci men Type: BLOOD SPECIMEN [facility] Facility: [facility] Address: [address] [place] [address] Result Comment: Flores mated Glomerular Filtration Rate [...] GFR. Performed By: #### 2 157-6, #### [facility] CLIA [id number] [address] [place] [address] [place] Glucose [Mass/Vol] 94 mg/dL Normal 74-99 [facility] Comment on above: Order Comment: Mert del valle Type: BLOOD SPECIMEN Ordering Facility: [facility] Address: [address] [place] [address] Result Comment: The [place] Diabetes Association (ADA) provides guidance for cutoff [...] Standards of Medical Care in Diabetes 2016, [place] Diabetes Association. Diabetes Care. 2016.39(Suppl 1). Performed By: #### 2 157-, #### [facility] CLIA [id number] [address] [place] [address] [place] Potassium [Moles/Vol] 4.2 mmol/L Normal 3.7-5.1 [facility] Comment on above: Order Comment: Mert del valle Type: BLOOD SPECIMEN [facility] Address: [address] [place] [id number] Performed By: #### 2 157, #### [facility] CLIA [id number] [address] [place] [address] [place] Protein [Mass/Vol] 7.3 g/dL Normal 6.3-8.0 [facility] Comment on above: Order Comment: Mert del valle Type: BLOOD SPECIMEN [facility] Facility[facility] Address: [address] [place], [place] [address] Performed By: #### 2 , #### [facility] CLIA [id number] [address] [place] [address] [place] Sodium [Moles/Vol] 140 mmol/L Normal 136-144 [facility] Comment on above: Order Comment: Speci men Type: BLOOD SPECIMEN [facility] Facility[facility] Address: [address] [place] [address] Performed By: #### 2 157-6, #### [facility] CLIA [id number] [address] [place] [address] [place] Urea nitrogen [Mass/Vol] 12 mg/dL Normal 7-21 [facility] Comment on above: Order Comment: Speci men Type: BLOOD SPECIMEN [facility] Address: [address] [place] [address] Performed By: #### 2 157-6, #### [facility] CLIA [id number] [address] [place] [address] [place] Albumin [Mass/Vol] 4.5 g/dL 3.9 - 4.9 g/dL [facility] ALP [Catalytic activity/Vol] 46 U/L 34 - 123 U/L [facility] ALT [Catalytic activity/Vol] 46 U/L High 7 - 38 U/L [facility] Anion gap [Moles/Vol] 8 mmol/L Low 9 - 18 mmol/L [facility] AST [Catalytic activity/Vol] 39 U/L High 13 - 35 U/L [facility] Bilirubin [Mass/Vol] 1.2 mg/dL 0.2 - 1.3 mg/dL [facility] Calcium [Mass/Vol] 9.5 mg/dL 8.5 - 10. 2 mg/dL [facility] Chloride [Moles/Vol] 105 mmol/L 97 - 105 mmol/L [facility] CO2 [Moles/Vol] 27 mmol/L 22 - 30 mmol/L [facility] Creatinine [Mass/Vol] 1.10 mg/dL High 0.58 - 0.96 mg/dL [facility] Estimated Glomerular Filtration Rate 62 mL/min/1.73m >=60 mL/min/1.73m [facility] Glucose [Mass/Vol] 94 mg/dL 74 - 99 mg/dL [facility] Potassium [Moles/Vol] 4.2 mmol/L 3.7 - 5.1 mmol/L [facility] Protein [Mass/Vol] 7.3 g/dL 6.3 - 8.0 g/dL Cl [facility] Sodium [Moles/Vol] 140 mmol/L 136 - 144 mmol/L [facility] Urea nitrogen [Mass/Vol] 12 mg/dL 7 - 21 mg/dL [facility] ESR Westergren method (Bld) [Velocity]on 06-24-2023 ESR (Bld) [Velocity] 23 mm/h High 0 - 20 mm/hr [facility] ESR (Bld) [Velocity] 23 mm/h High 0-20 [facility] Comment on above: Order Comment: Speci men Type: BLOOD SPECIMEN [facility] Facility[facility] Address: [address] [place], [place] [address]Ag[address], [place] [address] Performed By: #### 2 157-6, 1987-11, 22589-5 #### [facility] CLIA [id number] [address] [place] [address] [place] No Panel Informationon 06-24 [facility] XR LUMBAR 3V AP/LAT/L5-S1on 06-24-2023 XR LUMBAR [...] DEGENERATIVE CHANGES AND LEVOSCOLIOSIS SIMILAR TO PRIOR. Plant Breeder Scientist: MARQUEZ Transcribe Date/Time: Jun 24 2023 1:12P Dictated by : BRADY FELDMAN MD This examination was interpreted and the report reviewed and electronically signed by: BRADY FELDMAN MD on Jun 24 2023 1:14PM EST [id number] [facility] 05-12-2023 [facility] Telephone (RHEUAV) LYNETTE HAIRSTON ([id number]) 1975 F Date Time Provider Department 05/12/23 NOEMI PHAM During your visit today, we recorded the following information about you: Minh Mosqueda 05/12/2023 1:20 PM Signed Ashwini from [facility] is calling Noemi Pham MD today to clarify medication. When they were filling the enbrel, it flagged that the patient has a thrombocytopenia diagnosis. They need to clarify that the provider is aware. They cannot send the medication until they get that clarification. [phone] Patient has been identified by name and birthdate. Duration of symptoms: N/A Person calling: pharmacy: [facility] Call patient at: on cell [phone] (home) [phone] (cell) Was an appointment scheduled: No Closing statement: Results or non-symptom based questions: Thank you for calling [facility], your call will be returned within the next business day. Allison Rodríguez OCCA 05/12/2023 1:29 PM Signed Faxed [facility], patient is no longer on medication Jonelle Flores Ma 05/19/2023 9:12 AM Signed Patient calling back. States she is on Enbrel. She takes it once a week and has not had it in about 2 weeks. She is starting to get pain. She is no longer on Plaquenil. Asking for the office to call [facility] to get this straightened out. She only [...] Days Visit Type Date Time Department [facility] 06/24/2023 11:20 AM [facility] REJ Last Ophthalmology Check for Plaquenil [...] acting, (LOPR (more content not included)... Normal [facility] Miscellaneouson 03-24-2023 Send Out Report Normal [facility] Comment on above: Result Comment: PERF ORMED AT [employer] [address], [place] [address] (NOTE) Fat, Fecal Quantitative 72-Hour Collection (Includes Homogenization) [employer] test code 6757081 Fat, Fecal Quantitative 72-Hour 4.2 g/d (Ref Interval: 0.0-6.0) INTERPRETIVE INFORMATION: Fat, Fecal Quantitative 72-Hour Collection Access complete set of age- and/or gender-specific reference intervals for this test in the [facility] Test [facility] ([facility]). This test was developed and its performance characteristics determined by [employer]. It has not been cleared or approved [...] g Performed By: #### C MIS #### [facility] [address] [place] [address] Entry Level Assistant Manager: Richie Alexis DO Miscellaneouson 03-22-2023 Test Name 72 Normal [facility] Comment on above: Performed By: #### C MIS #### [facility] [address] [place], [place] [id number] Entry Level Assistant Manager: Richie Alexis DO CNPNon 03-09-2023 [facility] Telephone (EDENV) LYNETTE HAIRSTON ([id number]) 1975 F Date Time Provider Department 03/09/23 [...] Status:Closed by JUD HESS LPN on 03/09/23 [facility] 01-28-2023 [facility] Telephone (SUNGUAV) LYNETTE HAIRSTON ([id number]) 1975 F Date Time Provider Department 01/28/23 [...] Encounter Status:Closed by BRIANDA PALOMARES [facility] Telephone (HYUN) LYNETTE HAIRSTON ([id number]) 1975 F Date Time Provider Department 01/26/23 [...] 01/26/2023 11:13 AM Signed Message sent on [employer] regarding this . Noemi Pham MD Allergies [...] Status:Closed by NOEMI PHAM on 01/26/23 Normal [facility] ANURAG BY IFA WITH REFLEXon Nuclear Ab IF (S) [Titer] Negative Normal Negative [facility] Comment on above: Order Comment: Speci men Type: BLOOD SPECIMEN [facility] Address: [address] [place] [address] Result Comment: Anti -nuclear antibody test is used as an aid in diagnosis of systemic autoimmune diseases. Where positive and clinically warranted, follow-up using disease-specific testing is recommended. Low positive titers are not uncommon with advanced age, certain chronic infections, and malignancies among others. Test methodology: Indirect fluorescence immunoassay (IFA) using HEp-2 cells. Performed By: #### 1 761-6 #### [facility] CLIA [id number] [address] [place] [address] [place] Aldolase SerPl-cCncon 2022 Aldolase [Catalytic activity/Vol] 8.8 mU/mL High 1.5-8.1 [facility] Comment on above: Order Comment: Mert del valle Type: BLOOD SPECIMEN [facility] Address: [address] [place] [address] Result Comment: This test was developed and its performance characteristics determined by [facility] Pathology and Laboratory Medicine Rankin (RT-PLMI). It has not been cleared or approved by the FDA. [facility] is regulated under CLIA as qualified to perform high-complexity testing. This test is used for clinical purposes. It should not be regarded as investigational or for research. Performed By: #### 1 761-6 #### [facility] CLIA [id number] [address] [place] [address] [place] CK SerPl-cCncon 01-14-2023 CK [Catalytic activity/Vol] 110 U/L Normal 42-196 [facility] Comment on above: Order Comment: Mert del valle Type: BLOOD SPECIMEN [facility] Address: [address] [address] Performed By: #### 1 761-6 #### [facility] CLIA [id number] [address] [place] [address] [place] CNOVon 01-14-2023 CNOV Office Visit (HYUN ) LYNETTE HAIRSTON ([id number]) 1975 F Date Time Provider Department 01/14/23 [...] 6m Check following: -none MD Naseem Lopez, ACOUSTIC WARFARE ANALYST 01/14/2023 11:48 AM Signed Verified 80mg depomedrol injection with Paty Mckinney LPN. Allergies As of Date: 01/14/2023 Noted Allergy Reaction MELOXICAM 11/23/2016 4 - Hives Comments: METHOTREXATE 12/25/2014 8 - GI Upset Date Reviewed: 01/14/2023 Reviewed by: Minna Mckinney RN - Fully Assessed Reason for Visit: Follow Up [171] Primary Visit Diagnosis:Malar rash [R21] Order(s):HISTONE IGG LAUREANO [SQHISTN] Order #: [id number] FUTURE ANURAG BY IFA WITH REFLEX [SQANAIFR] Order #: [id number] FUTURE ANURAG BLOOD [SQANAS] Order #: [id number] FUTURE ANTI LEVY ID [SQENAID] Order #: [id number] FUTURE SED RATE WESTERGREN [SQWSR] Order #: [id number] FUTURE C-REACTIVE PROTEIN (CRP) [SQCRP] Order #: [id number] FUTURE RHEUMATOID FACTOR BL [SQRF] Order #: [id number] FUTURE CK CREATINE KINASE [SQCK] Order #: [id number] FUTURE ALDOLASE BLD [SQALD] Order #: [id number] FUTURE [] methylPREDN (more content not included)... Normal [facility] CRP SerPl-mCncon 01-14-2023 CRP [Mass/Vol] 0.6 mg/dL Normal <0.9 [facility] Comment on above: Order Comment: Mert del valle Type: BLOOD SPECIMEN [facility] Address: [address] [place] [address] Performed By: #### 2 157-6, 1987-5, 93998-2 #### [facility] CLIA [id number] [address] [place] [address] [place] ESR Westergren method (Bld) [Velocity]on 01-14-2023 ESR (Bld) [Velocity] 16 mm/h Normal 0-20 [facility] Comment on above: Order Comment: Mert del valle Type: BLOOD SPECIMEN [facility] Address: [address] [place] [address] Performed By: #### 1 761-6 #### [facility] CLIA [id number] [address] [place] [address] [place] HISTONE IGG ABYon 01-14-2023 HISTONE 0.1 Units Normal <1.0 [facility] Comment on above: Order Comment: Speci men Type: BLOOD SPECIMEN [facility] Address: [address] [address] Performed By: #### 1 761-6 #### [facility] CLIA [id number] [address] [place] [address] [place] HISTONE IGG QUALITATIVE Negative Normal [facility] Comment on above: Order Comment: Mert del valle Type: BLOOD SPECIMEN [facility] Address: [address] [place] [address] Result Comment: Anti -histone IgG antibody test [...] required. Performed By: #### 1 761-6 #### [facility] CLIA [id number] [address] [place] [address] [place] Nuclear Ab IA Ql (S)on 01-14 ANURAG SCR QUAL Negative Normal Negative [facility] Comment on above: Order Comment: Lynni ivon Type: BLOOD SPECIMEN [facility] Address: [address] [place] [address] Result Comment: The qualitative antinuclear antibody screen test performed using the following antigens: dsDNA, Chromatin, Ribosomal P, SS-A 60, SS-A 52, SS-B, Sm, SmRNP, JOY LOADER A, JOY LOADER 68, Scl-70, Odalis-1, and Centromere B. Methodology: Multiplex flow immunoassay. Performed By: #### 1 761-6 #### [facility] CLIA [id number] [address] [place] [address] [place] Rheumatoid fact SerPl-aCncon 01-14-2023 Rheumatoid factor Qn [IU]/mL High <16 [facility] Comment on above: Order Comment: Speci men Type: BLOOD SPECIMEN [facility] Address: [address] [id number] Performed By: #### 1 1572-5 #### [facility] CLIA [id number] [address] [id number] [facility] [place] CNOVon 12-24-2022 CNOV Office Visit (NENMMN ) LYNETTE HAIRSTON ([id number]) 1975 F Date Time Provider Department 12/24/22 1:00 PM LIZ CONNOLLY During your visit today, we recorded the following information about you: Pulse Blood pressure 106/minute 121/84 Liz Connolly MD 01/04/2023 10:43 AM Signed S[facility] Note- Established patient Provider: Liz Connolly MD [...] that she has been following with her director orange with every 6 monthly appointments to monitor [...] There is also been weight gain since [facility] (going from 223 pounds to about [...] current facility-administ (more content not included)... Normal [facility] EMG(NEURO/NI)on 12-24-2022 [facility] Surgical Pathologyon 023 Surgical Pathology (NOTE) Path Number: [id number] -- Diagnosis -- Colon, random biopsies: Normal colonic mucosa. Deshaun Mcneil Electronically Signed Out rdd/12/21/2022 Clinical Information Pre-Op Diagnosis: ENCOPRESIS WITHOUT CONSTIPATION AND OVERFLOW INCONTINENCE Operative Findings: RANDOM COLON BIOPSIES TO CHECK FOR MICROSCOPIC COLITIS Operation Performed: COLONOSCOPY WITH BIOPSY cd Source of Specimen A: RANDOM COLON BXS TO CHECK FOR MICROSCOPIC COLITIS Gross Description LYNETTE HAIRSOTN RANDOM COLON BIOPSIES Received in formalin are [...] is no dysplasia or malignancy. Processing Lab: [facility] [address] [place] [address] Interpretation Performed at [facility] [address] [place], [place] SURGICAL PATHOLOGY CONSULTATION Patient Name: LYNETTE HAIRSTON. Med Rec: [id number] [facility] ANATOMIC PATHOLOGY [address] [place], [place] [address] [facility] Comment on above: Performed By: #### P PPVS #### [address] [id number] Entry Level Assistant Manager: MD Mary Velazquez 12-01-2022 [facility] Telephone (EDENV) LYNETTE HAIRSTON ([id number]) 1975 F Date Time Provider Department 12/01/22 [...] Fully Assessed Reason for Visit: Insurance Authorization [[id number]] Cmt: Enbrel Prescriptions as of 12/01/2022 - [...] Status:Closed by INOCENCIA BUI LPN on 12/01/22 [facility] 11-15-2022 N[facility] Telephone (HYUN) LYNETTE HAIRSTON ([id number]) 1975 F Date Time Provider Department 11/15/22 NOEMI PHAM During your visit today, we recorded the following information about you: Noemi Pham MD 11/15/2022 1:23 PM Signed Please tell her I received labs from [facility] and her cpk and aldolase returned [...] Status:Closed by NOEMI PHAM on 11/15/22 Normal [facility] Orders Onlyon 10-28-2022 Orders Only [id number] Minh Hairston 1975 [facility] Provider Department Center 10/28/2022 CRISTHIAN MARIE [facility] Family History Family Status - Relation Status Age at Daughter Notes: pancreatic insuffiency Son Notes: Crohns Normal [facility] Labon 09-08-2022 Lab [id number] Minh Hairston 1975 Provider Department Center 09/08/[address] [place] [address] [facility] Pavjosé miguel Family History Family Status - Relation Status Age at Daughter Notes: pancreatic insuffiency Son Notes: Crohns Normal [facility] Office Visiton 09-08-2022 Follow-up visit [id number] Minh Hairston 1975 Provider Department Center 09/08/2022 CRISTHIAN MARIE MP [facility] Family History Family Status - Relation Status Age at Daughter Notes: pancreatic insuffiency Son Notes: Crohns Level of Service:40402 [place] OFFICE/OUTPATIENT ESTABLISHED MOD MDM 30-39 MIN Reason for Visit and Comments: Follow-up [304689] Diarrhea [35] Normal [facility] PANCREATIC ELASTASE, FECALon 09-08-2022 PANCREATIC ELASTASE, FECAL >800 Normal >=100 [facility] Comment on above: Result Comment: REFE RENCE INTERVAL: Pancreatic Elastase Fecal by Immunoassay Less than 100 ug/g............Severe insufficiency 100 - 199 ug/g................Moderate insufficiency 200 ug/g or greater...........Normal INTERPRETIVE INFORMATION: Pancreatic Elastase Fecal by Immunoassay Reference intervals do not apply for infants less than one month old. Performed by [employer], [address] [place] [address] [email or web address], Vito Arteaga MD, PHD, Lab. Director Performed By: #### L AB979 ####[facility] [place] [address] Aldolase SerPl-cCncon 2022 Aldolase [Catalytic activity/Vol] 9.9 mU/mL High 1.5-8.1 [facility] Comment on above: Order Comment: Speci men Type: BLOOD SPECIMEN [facility] Address: [address] [address] Result Comment: This test was developed and its performance characteristics determined by [facility] Pathology and Laboratory Medicine [facility] ([facility]). It has not been cleared or approved by the FDA. [facility] is regulated under CLIA as qualified to perform high-complexity testing. This test is used for clinical purposes. It should not be regarded as investigational or for research. Performed By: #### 1 761-6 #### [facility] CLIA [id number] [address] [place] [address] [place] C-REACTIVE PROTEIN (CRP)on 0 08-11-2022 CRP [Mass/Vol] 0.8 mg/dL <0.9 mg/dL [facility] CBC panel Auto (Bld)on 08-11 Erythrocyte distribution width (RBC) [Ratio] 11.7 % Normal 11.5-15.0 [facility] Comment on above: Order Comment: Mert del valle Type: BLOOD SPECIMEN [facility] Address: [address] [id number] Performed By: #### 1 761-6 #### [facility] CLIA [id number] [address] [place] [address] OF [place] Hematocrit (Bld) [Volume fraction] 44.1 % Normal 36.0-46.0 [facility] Comment on above: Order Comment: Speci men Type: BLOOD SPECIMEN [facility] Address: [address] [place], [place] [address] Performed By: #### 1 761-6 #### [facility] CLIA [id number] [address] OF [facility] Hemoglobin (Bld) [Mass/Vol] 15.2 g/dL Normal 11.5-15.5 [facility] Comment on above: Order Comment: Speci men Type: BLOOD SPECIMEN [facility] Address: [address] Performed By: #### 1 761-6 #### [facility] CLIA [id number] [address] [place] [address] [place] MCH (RBC) [Entitic mass] 31.7 pg Normal 26.0-34.0 [facility] Comment on above: Order Comment: Speci men Type: BLOOD SPECIMEN [facility] Address: [address] [place], [place] [address] Performed By: #### 1 761-6 #### [facility] CLIA [id number] [address] [place] [address] [place] MCHC (RBC) [Mass/Vol] 34.5 g/dL Normal 30.5-36.0 [facility] Comment on above: Order Comment: Speci men Type: BLOOD SPECIMEN [facility] Address: [address] [place], [place] [address] Performed By: #### 1 761-6 #### [facility] CLIA [id number] [address] [place] MCV (RBC) [Entitic vol] 92.1 fL Normal 80.0-100.0 [facility] Comment on above: Order Comment: Speci men Type: BLOOD SPECIMEN [facility] Address: [address] [place], [place] [address] Performed By: #### 1 761-6 #### [facility] CLIA [id number] [address] [place] [address] [place] Nucleated RBC (Bld) [#/Vol] 10*3/uL Normal <0.01 [facility] Comment on above: Order Comment: Speci men Type: BLOOD SPECIMEN [facility] Address: [address] [place], [place] [address] Performed By: #### 1 761-6 #### [facility] CLIA [id number] [address] [place] [address] [place] Platelet mean volume (Bld) [Entitic vol] 11.0 fL Normal 9.0-12.7 [facility] Comment on above: Order Comment: Speci men Type: BLOOD SPECIMEN [facility] Address: [address] [place], [place] [address] Performed By: #### 1 761-6 #### [facility] CLIA [id number] [address] [place] [address] [place] Platelets (Bld) [#/Vol] 205 10*3/uL Normal 150-400 [facility] Comment on above: Order Comment: Speci men Type: BLOOD SPECIMEN [facility] Address: [address] [place], [place] [address] Performed By: #### 1 761-6 #### [facility] [facility] CLIA [id number] [address] [place] [address] [place] RBC (Bld) [#/Vol] 4.79 10*6/uL Normal 3.90-5.20 [facility] Comment on above: Order Comment: Speci men Type: BLOOD SPECIMEN Ordering Facility: [facility] Address: [address] [place], [place] [address] Performed By: #### 1 761-6 #### [facility] CLIA [id number] [address] [place] [address] [place] WBC (Bld) [#/Vol] 9.49 10*3/uL Normal 3.70-11.00 [facility] Comment on above: Order Comment: Speci men Type: BLOOD SPECIMEN Ordering Facility: [facility] Address: [address] Performed By: #### 1 761-6 #### [facility] CLIA [id number] [address] [facility] [address] STATES OF [facility] Erythrocyte distribution width (RBC) [Ratio] 11.7 % 11.5 - 15.0 % [facility] Hematocrit (Bld) [Volume fraction] 44.1 % 36.0 - 46.0 % [facility] Hemoglobin (Bld) [Mass/Vol] 15.2 g/dL 11.5 - 15.5 g/dL [facility] MCH (RBC) [Entitic mass] 31.7 pg 26.0 - 34.0 pg [facility] MCHC (RBC) [Mass/Vol] 34.5 g/dL 30.5 - 36.0 g/dL [facility] MCV (RBC) [Entitic vol] 92.1 fL 80.0 - 100.0 fL [facility] Nucleated RBC (Bld) [#/Vol] <0.01 k/uL [facility] Platelet mean volume (Bld) [Entitic vol] 11.0 fL 9.0 - 12.7 fL [facility] Platelets (Bld) [#/Vol] 205 10*3/uL 150 - 400 k/uL [facility] RBC (Bld) [#/Vol] 4.79 10*6/uL 3.90 - 5.2 0 m/uL [facility] WBC (Bld) [#/Vol] 9.49 10*3/uL 3.70 - 11. 00 k/uL [facility] CK CREATINE KINASEon 023 CK [Catalytic activity/Vol] 115 U/L 42 - 196 U/L [facility] CK SerPl-cCncon 08-11-2022 CK [Catalytic activity/Vol] 115 U/L Normal 42-196 [facility] Comment on above: Order Comment: Speci men Type: BLOOD SPECIMEN Ordering Facility: [facility] Address: [address] [place] [address] Performed By: #### 1 761-6 #### [facility] CLIA [id number] [address] [place] [id number] [place] CNOVon 08-11-2022 CNOV Office Visit (HYUN ) LYNETTE HAIRSTON ([id number]) 1975 F Date Time Provider Department 08/11/22 [...] 6m Check following: -none MD Inocencia Lopez [employer] ANALYST 08/11/2022 10:21 AM Signed Methylprednisolone injection verified. 80mg. Jud Hess AC[employer]ARFARE ANALYST 08/11/2022 11:22 AM Signed Patient given Depomedrol 80 mg IM in the lef (more content not included)... Normal [facility] CRP SerPl-mCncon 08-11-2022 CRP [Mass/Vol] 0.8 mg/dL Normal <0.9 [facility] Comment on above: Order Comment: Mert [place] valle Type: BLOOD SPECIMEN Ordering Facility: [facility] Address: [address] [place] [address] Performed By: #### 2 4323-8, 1987-11 #### [facility] CLIA [id number] [address] [place] [address] [place] Comprehensive metabolic 2000 panelon 08-11-2022 Albumin [Mass/Vol] 4.6 g/dL Normal 3.9-4.9 [facility] Comment on above: Order Comment: Mert [place] valle Type: BLOOD SPECIMEN Ordering Facility: [facility] Address: [address] Performed By: #### 2 4323-02, 1987-11 #### [facility] CLIA [id number] [address] [place] [address] [place] ALP [Catalytic activity/Vol] 44 U/L Normal 34-123 [facility] Comment on above: Order Comment: Speci men Type: BLOOD SPECIMEN Ordering Facility: [facility] Address: [address] Performed By: #### 2 4323-02, 1987-11 #### [facility] CLIA [id number] [address] [place] [address] [place] ALT [Catalytic activity/Vol] 32 U/L Normal 7-38 [facility] Comment on above: Order Comment: Speci men Type: BLOOD SPECIMEN Ordering Facility: [facility] Address: [address] [place] [address] Performed By: #### 2 4323-02, 1987-11 #### [facility] CLIA [id number] [address] [place] [address] [place] Anion gap [Moles/Vol] 9 mmol/L Normal 9-18 [facility] Comment on above: Order Comment: Speci men Type: BLOOD SPECIMEN Ordering Facility: [facility] Address: [address] Performed By: #### 2 4323-02, 1987-11 #### [facility] CLIA [id number] [address] [place] [address] [place] AST [Catalytic activity/Vol] 26 U/L Normal 13-35 [facility] Comment on above: Order Comment: Speci men Type: BLOOD SPECIMEN Ordering Facility: [facility] Address: [address] Performed By: #### 2 4323-02, 1987-11 #### [facility] CLIA [id number] [address] [place] [address] [place] Bilirubin [Mass/Vol] 0.9 mg/dL Normal 0.2-1.3 [facility] Comment on above: Order Comment: Speci men Type: BLOOD SPECIMEN Ordering Facility: [facility] Address: [address] Performed By: #### 2 4323-02, 1987-11 #### [facility] CLIA [id number] [address] [place] [address] [place] Calcium [Mass/Vol] 10.5 mg/dL High 8.5-10.2 [facility] Comment on above: Order Comment: Speci men Type: BLOOD SPECIMEN Ordering Facility: [facility] Address: [address] Performed By: #### 2 4323-02, 1987-11 #### [facility] CLIA [id number] [address] [place] [address] [place] Chloride [Moles/Vol] 102 mmol/L Normal 97-105 [facility] Comment on above: Order Comment: Speci men Type: BLOOD SPECIMEN Ordering Facility: [facility] Address: [address] [place] [address] Performed By: #### 2 4323-02, 1987-11 #### [facility] CLIA [id number] [address] [place] [address] [place] CO2 [Moles/Vol] 29 mmol/L Normal 22-30 [facility] Comment on above: Order Comment: Speci men Type: BLOOD SPECIMEN Ordering Facility: [facility] Address: [address] [place] [address] Performed By: #### 2 4323-02, 1987-11 #### [facility] CLIA [id number] [address] [place] [address] [place] Creatinine [Mass/Vol] 0.93 mg/dL Normal 0.58-0.96 [facility] Comment on above: Order Comment: Speci men Type: BLOOD SPECIMEN Ordering Facility: [facility] Address: [address] [place] [address] Performed By: #### 2 4323-02, 1987-11 #### [facility] CLIA [id number] [address] [place] [address] [place] ESTIMATED GLOMERULAR FILTRATION RATE 76 mL/min/1.73m??? Normal >=60 [facility] Comment on above: Order Comment: Mert del valle Type: BLOOD SPECIMEN Ordering Facility: [facility] Address: [address] [place] [address] Result Comment: Flores mated Glomerular Filtration Rate [...] Performed By: #### 2 4323-8, 1987-11 #### [facility] CLIA [id number] [address] [place] [address] [place] Glucose [Mass/Vol] 97 mg/dL Normal 74-99 [facility] Comment on above: Order Comment: Mert del valle Type: BLOOD SPECIMEN Ordering Facility: [facility] Address: [address] [place] [address] Result Comment: The [place] Diabetes Association (ADA) provides guidance for cutoff [...] Standards of Medical Care in Diabetes 2016, [place] Diabetes Association. Diabetes Care. 2016.39(Suppl 1). Performed By: #### 2 4323-8, 1987-11 #### [facility] CLIA [id number] [address] [place] [address] [place] Potassium [Moles/Vol] 4.7 mmol/L Normal 3.7-5.1 [facility] Comment on above: Order Comment: Speci men Type: BLOOD SPECIMEN Ordering Facility: [facility] Address: [address] [place] [address] Performed By: #### 2 4323-02, 1987-11 #### [facility] CLIA [id number] [address] [place] [address] [place] Protein [Mass/Vol] 7.6 g/dL Normal 6.3-8.0 [facility] Comment on above: Order Comment: Speci men Type: BLOOD SPECIMEN Ordering Facility: [facility] Address: [address] [place] [address] Performed By: #### 2 4323-02, 1987-11 #### [facility] CLIA [id number] [address] [place] [address] [place] Sodium [Moles/Vol] 140 mmol/L Normal 136-144 [facility] Comment on above: Order Comment: Speci men Type: BLOOD SPECIMEN Ordering Facility: [facility] Address: [address] Performed By: #### 2 4323-02, 1987-11 #### [facility] CLIA [id number] [address] [place] [address] [place] Urea nitrogen [Mass/Vol] 15 mg/dL Normal 7-21 [facility] Comment on above: Order Comment: Speci men Type: BLOOD SPECIMEN Ordering Facility: [facility] Address: [address] Performed By: #### 2 4323-02, 1987-11 #### [facility] CLIA [id number] [address] [place] [address] [place] Albumin [Mass/Vol] 4.6 g/dL 3.9 - 4.9 g/dL [facility] ALP [Catalytic activity/Vol] 44 U/L 34 - 123 U/L [facility] ALT [Catalytic activity/Vol] 32 U/L 7 - 38 U/L [facility] Anion gap [Moles/Vol] 9 mmol/L 9 - 18 mmol/L [facility] AST [Catalytic activity/Vol] 26 U/L 13 - 35 U/L [facility] Bilirubin [Mass/Vol] 0.9 mg/dL 0.2 - 1.3 mg/dL [facility] Calcium [Mass/Vol] 10.5 mg/dL High 8.5 - 10. 2 mg/dL [facility] Chloride [Moles/Vol] 102 mmol/L 97 - 105 mmol/L [facility] CO2 [Moles/Vol] 29 mmol/L 22 - 30 mmol/L [facility] Creatinine [Mass/Vol] 0.93 mg/dL 0.58 - 0.96 mg/dL [facility] Estimated Glomerular Filtration Rate 76 mL/min/1.73m >=60 mL/min/1.73m [facility] Glucose [Mass/Vol] 97 mg/dL 74 - 99 mg/dL [facility] Potassium [Moles/Vol] 4.7 mmol/L 3.7 - 5.1 mmol/L [facility] Protein [Mass/Vol] 7.6 g/dL 6.3 - 8.0 g/dL [facility] Sodium [Moles/Vol] 140 mmol/L 136 - 144 mmol/L [facility] Urea nitrogen [Mass/Vol] 15 mg/dL 7 - 21 mg/dL [facility] ESR Westergren method (Bld) [Velocity]on 08-11-2022 ESR (Bld) [Velocity] 23 mm/h High 0 - 20 mm/hr [facility] ESR (Bld) [Velocity] 23 mm/h High 0-20 [facility] Comment on above: Order Comment: Speci men Type: BLOOD SPECIMEN Ordering Facility[facility] Address: [address] [place] [address] Performed By: #### 1 761-6 #### [facility] CLIA [id number] [address] [facility] [place] [address] [place] XR elbow RT 2Von 07-30-2022 XR elbow RT 2V [facility] [address] [place] [address] [place] [address] XRay Report Signed Patient: Lynette Hairston MR#: [id number] 46 : 1975 Acct:[id number] Age/Sex: 47 / F ADM Date: 07/30/22 [place] [facility] [place]: Type: [facility] Attending Dr: Jud Monson NP-C Copies [...] Martines Jr., D.O.07/30/2022 12:09 PM Dictation Location: [place] [address] Transcribed By: [facility] 07/30/22 1209 Dictated By: Jeremie Martines Jr, DO 07/30/22 1209 Signed By: 07/30/22 1209 [facility] Orders Onlyon 07-15-2022 Orders Only [id number] Minh Hairston 1975 F Date Provider Department Center 07/15/2022 CRISTHIAN MARIE [facility] No family history on file [facility] Orders Onlyon 07-09-2022 Orders Only [id number] Minh Hairston 1975 F Date Provider Department Center 07/09/2022 CRISTHIAN MARIE [facility] No family history on file [facility] Orders Onlyon 06-28-2022 Orders Only [id number] Minh Hairston 1975 F Date Provider Department Center 06/28/2022 CRISTHIAN MARIE MP [facility] No family history on file [facility] 36on 06-24-2022 36 Pt calling wanting t o know what the next steps are now that her labs and stools are back. She will be having Fibroblasthart set up for your response to her. [facility] Orders Onlyon 06-16-2022 Orders Only [id number] Minh Hairston 1975 Date Provider Department Center 06/16/2022 CRISTHIAN MARIE [facility] No family history on file [facility] Orders Onlyon 06-07-2022 Orders Only [id number] Minh Hairston 1975 Date Provider Department Center 06/07/2022 CRISTHIAN MARIE [facility] No family history on file [facility] 36on 05-31-2022 36 Patient called with [...] so you can review them. Please advise. [facility] 37on 05-26-2022 37 Take fiber supplemen ts along with plenty of water. Supplements include: Psyllium (sample brand name: Metamucil) Methylcellulose (sample brand name: Citrucel) Calcium polycarbophil (sample brand name: FiberCon) Wheat dextrin (sample brand name: Benefiber) Start slow with ??? Tablespoon every other day, then gradually increase to 1-2 tablespoons/day. [facility] Office Visiton 05-26-2022 Follow-up visit [id number] Minh Hairston 1975 Provider Department Center 05/26/2022 CRISTHIAN MARIE [facility] No family history on file Level of Service:12841 [place] OFFICE/OUTPATIENT ESTABLISHED MOD MDM 30-39 MIN Reason for Visit and Comments: Diarrhea [35] Follow-up [355226] - Patient states she has randomly lost control of her bowels in the recent weeks. [facility] XR CERVICAL SPINE (2-3 VIEWS )on [...] Boubacar Louis MD 02/07/21 Final result Normal [facility] XR CERVICAL SPINE (2-3 VIEWS )Ordered By: Garfield Restrepo on 02-07-2021 No acute osseous abnormality. [employer] Phone: EXAMINATION: XRAY VIEWS OF THE CERVICAL SPINE 02/07/2021 12:33 pm COMPARISON: None. HISTORY: ORDERING SYSTEM PROVIDED HISTORY: right arm pain TECHNOLOGIST PROVIDED HISTORY: right arm pain Reason for Exam: RUE pain Acuity: Chronic Type of Exam: Initial FINDINGS: Vertebral body height and alignment are maintained. There are minimal degenerative changes. There is no evidence of fracture or malalignment. [employer] Phone: Rashid, pn Incoming Radiant Results From [employer]Alerts - 02/07/2021 1:12 PM EDT EXAMINATION: XRAY [...] or malalignment. IMPRESSION: No acute osseous abnormality. [employer] Phone: [employer] Phone: Basic Metab w/rfx MGon 01-19 (cont.) Normal [facility] Comment on above: Result Comment: Aver age GFR for 40-49 years old: 99 mL/min/1.73sq m Chronic Kidney Disease: <60 mL/min/1.73sq m Kidney failure: <15 mL/min/1.73sq m eGFR calculated using average adult body mass. Additional eGFR calculator available at: http://www.[employer].Fly Fishing Hunter/multiple_crcl_2011.htm Performed By: #### C DP, BMPX #### [place] [address] Entry Level Assistant Manager: Brady Chan MD Anion gap [Moles/Vol] 8 mmol/L Low 9-17 [facility] Comment on above: Performed By: #### C DP, BMPX #### [place] [address] Entry Level Assistant Manager: Brady Chan MD Calcium [Mass/Vol] 9.4 mg/dL Normal 8.6-10.4 [facility] Comment on above: Performed By: #### C DP, BMPX #### [place] [address] Entry Level Assistant Manager: Brady Chan MD Chloride [Moles/Vol] 103 mmol/L Normal 98-107 [facility] Comment on above: Performed By: #### C DP, BMPX #### [place] [address] Entry Level Assistant Manager: Brady Chan MD CO2 [Moles/Vol] 27 mmol/L Normal 20-31 [facility] Comment on above: Performed By: #### C DP, BMPX #### [place] [address] Entry Level Assistant Manager: Brady Chan MD Creatinine [Mass/Vol] 0.73 mg/dL Normal 0.50-0.90 [facility] Comment on above: Performed By: #### C DP, BMPX #### [place] [address] Entry Level Assistant Manager: Brady Chan MD GFR, Amer >60 Normal >60 [facility] Comment on above: Performed By: #### C DP, BMPX #### [place] [address] Entry Level Assistant Manager: Brady Chan MD GFR,non Amer >60 Normal >60 [facility] Comment on above: Performed By: #### C DP, BMPX #### [place] [address] Entry Level Assistant Manager: Brady Chan MD Glucose [Mass/Vol] 107 mg/dL High 70-99 [facility] Comment on above: Performed By: #### C DP, BMPX #### [place] [address] Entry Level Assistant Manager: Brady Chan MD Potassium [Moles/Vol] 3.8 mmol/L Normal 3.7-5.3 [facility] Comment on above: Performed By: #### C DP, BMPX #### [place] [address] Entry Level Assistant Manager: Brady Chan MD Sodium [Moles/Vol] 138 mmol/L Normal 135-144 [facility] Comment on above: Performed By: #### C DP, BMPX #### [place] [address] Entry Level Assistant Manager: Brady Chan MD Urea nitrogen [Mass/Vol] 11 mg/dL Normal 6-20 [facility] Comment on above: Performed By: #### C DP, BMPX #### [place] [id number] Entry Level Assistant Manager: Brady Chan MD BUN/CRE Ratio NOT REPORTED Normal 9-20 [facility] Comment on above: Performed By: #### C DP, BMPX #### [place] [address] Entry Level Assistant Manager: Brady Chan MD Staging: NOT REPORTED Normal [facility] Comment on above: Performed By: #### C DP, BMPX #### [place] [address] Entry Level Assistant Manager: Brady Chan MD CBC with Diffon 01-19-2021 Abs. Basophil 0.10 k/uL Normal 0.0-0.2 [facility] Comment on above: Performed By: #### C DP, BMPX #### [place] [address] Entry Level Assistant Manager: Brady Chan MD Abs.Neutrophil (Seg) 4.30 k/uL Normal 1.8-7.7 [facility] Comment on above: Performed By: #### C DP, BMPX #### [place] [address] Entry Level Assistant Manager: Brady Chan MD Basophils/100 WBC (Bld) 1 % Normal 0-2 [facility] Comment on above: Performed By: #### C DP, BMPX #### [place] [address] Entry Level Assistant Manager: Brady Chan MD Eosinophils (Bld) [#/Vol] 0.10 10*3/uL Normal 0.0-0.4 [facility] Comment on above: Performed By: #### C DP, BMPX #### [place] [address] Entry Level Assistant Manager: Brady Chan MD Eosinophils/100 WBC (Bld) 2 % Normal 1-4 [facility] Comment on above: Performed By: #### C DP, BMPX #### [place] [address] Entry Level Assistant Manager: Brady Chan MD Erythrocyte distribution width (RBC) [Ratio] 13.0 % Normal 12.5-15.4 [facility] Comment on above: Performed By: #### C DP, BMPX #### [place] [address] Entry Level Assistant Manager: Brady Chan MD Hematocrit (Bld) [Volume fraction] 41.3 % Normal 36-46 [facility] Comment on above: Performed By: #### C DP, BMPX #### [place] [address] Entry Level Assistant Manager: Brady Chan MD Hemoglobin (Bld) [Mass/Vol] 14.1 g/dL Normal 12.0-16.0 [facility] Comment on above: Performed By: #### C DP, BMPX #### [place] [address] Entry Level Assistant Manager: Brady Chan MD Lymphocytes (Bld) [#/Vol] 3.10 10*3/uL Normal 1.0-4.8 [facility] Comment on above: Performed By: #### C DP, BMPX #### [place] [address] Entry Level Assistant Manager: Brady Chan MD Lymphocytes/100 WBC (Bld) 37 % Normal 24-44 [facility] Comment on above: Performed By: #### C DP, BMPX #### [place] [address] Entry Level Assistant Manager: Brady Chan MD MCH (RBC) [Entitic mass] 31.2 pg Normal 26-34 [facility] Comment on above: Performed By: #### C DP, BMPX #### [place] [address] Entry Level Assistant Manager: Brady Chan MD MCHC (RBC) [Mass/Vol] 34.2 g/dL Normal 31-37 [facility] Comment on above: Performed By: #### C DP, BMPX #### [place] [id number] Entry Level Assistant Manager: Brady Chan MD MCV (RBC) [Entitic vol] 91.1 fL Normal 80-100 [facility] Comment on above: Performed By: #### C DP, BMPX #### [place] [address] Entry Level Assistant Manager: Brady Chan MD Monocytes (Bld) [#/Vol] 0.70 10*3/uL Normal 0.1-1.2 [facility] Comment on above: Performed By: #### C DP, BMPX #### [place] [address] Entry Level Assistant Manager: Brady Chan MD Monocytes/100 WBC (Bld) 8 % Normal 2-11 [facility] Comment on above: Performed By: #### C DP, BMPX #### [place] [id number] Entry Level Assistant Manager: Brady Chan MD Neutrophil (Seg) 52 % Normal 36-66 [facility] Comment on above: Performed By: #### C DP, BMPX #### [address] [id number] Entry Level Assistant Manager: Brady Chan MD Platelet mean volume (Bld) [Entitic vol] 8.4 fL Normal 6.0-12.0 [facility] Comment on above: Performed By: #### C DP, BMPX #### [place] [address] Entry Level Assistant Manager: Brady Chan MD Platelets (Bld) [#/Vol] 199 10*3/uL Normal 140-450 [facility] Comment on above: Performed By: #### C DP, BMPX #### [place] [address] Entry Level Assistant Manager: Brady Chan MD RBC (Bld) [#/Vol] 4.54 10*6/uL Normal 4.0-5.2 [facility] Comment on above: Performed By: #### C DP, BMPX #### [place] [address] Entry Level Assistant Manager: Brady Chan MD WBC (Bld) [#/Vol] 8.2 10*3/uL Normal 3.5-11.0 [facility] Comment on above: Performed By: #### C DP, BMPX #### [place] [address] Entry Level Assistant Manager: Brady Chan MD Abs.Imm.Granulocyte NOT REPORTED Normal 0.00-0.30 [facility] Comment on above: Performed By: #### C DP, BMPX #### [place] [address] Entry Level Assistant Manager: Brady Chan MD Auto Diff Performed NOT REPORTED Normal [facility] Comment on above: Performed By: #### C DP, BMPX #### [place] [address] Entry Level Assistant Manager: Brady Chan MD Immature Granulocyte NOT REPORTED Normal 0 [facility] Comment on above: Performed By: #### C DP, BMPX #### [facility] [id number] [place] [address] Entry Level Assistant Manager: Brady Chan MD NRBC Automated NOT REPORTED Normal [facility] Comment on above: Performed By: #### C DP, BMPX #### [address] [address] Entry Level Assistant Manager: Brady Chan MD Platelet Estimate NOT REPORTED Normal [facility] Comment on above: Performed By: #### C DP, BMPX #### [place] [address] Entry Level Assistant Manager: Brady Chan MD RBC morphology finding Nom (Bld) NOT REPORTED Normal [facility] Comment on above: Performed By: #### C DP, BMPX #### [place] [address] Entry Level Assistant Manager: Brady Chan MD WBC Morphology NOT REPORTED Normal [facility] Comment on above: Performed By: #### C DP, BMPX #### [place] [address] Entry Level Assistant Manager: Brady Chan MD US DUP LOWER EXTREMITY [...] Gold Honeycutt MD 01/19/21 Final result Normal [facility] ABDOMEN 1VWon 08-08-2020 ABDOMEN 1VW [facility] Department of Radiology [address] [place] [id number] ======== Patient Name: LYNETTE PRINCE : [...] projections. Electronically signed: Brady Shen. Transcribed by: [email or web address], User Resident: Electronically Signed by: BRADY SHEN @ 08/08/2020 03:15 PM Normal [facility] Comment on above: Order Comment: pleas e evaluate for fecal over load AFP TUMOR MARKER [id number] AFP TUMOR MARKER 2 ng/mL Normal 0-9 [facility] Comment on above: Result Comment: INTE RPRETIVE INFORMATION: Alpha Fetoprotein Tumor Marker The [facility] [place] Access DxI AFP method is used. Results [...] reference intervals for this test in the [facility] Test Directory ([employer]). Performed By: [employer] [address] [place] [id number] Retirement Plan Specialist: Radha Horton MD ANAon 08-08-2020 Nuclear Ab IF (S) [Titer] <1:40 Normal <1:40,1:40 [facility] Comment on above: Performed By: #### 1 7165, [address] #### [facility] [address] [facility] [address], [facility] BASIC METABOLIC PANELon 07-25 Calcium [Mass/Vol] 9.3 mg/dL Normal 8.6-10.[address] [facility] Comment on above: Performed By: #### 9 0209, [address] #### [facility] [address] [place] [address], [place] Chloride [Moles/Vol] 104 mmol/L Normal 98-107 [facility] Comment on above: Performed By: #### 9 9908, 55047 #### [facility] [address] [place] [address], [place] CO2 [Moles/Vol] 25 mmol/L Normal 21-31 [facility] Comment on above: Performed By: #### 9 9908, 86339 #### [facility] [address] [place] [address], [place] Creatinine [Mass/Vol] 0.93 mg/dL Normal 0.60-1.20 [facility] Comment on above: Performed By: #### 9 9908, 50268 #### [facility] [address] [place] [address], [place] GFR/1.73 sq M predicted among blacks MDRD (S/P/Bld) [Vol rate/Area] mL/min/{1.73_m2} Normal >60 [facility] Comment on above: Performed By: #### 9 9908, 24579 #### [facility] [address] [place] [address], [place] GFR/1.73 sq M predicted among non-blacks MDRD (S/P/Bld) [Vol rate/Area] mL/min/{1.73_m2} Normal >60 [facility] Comment on above: Performed By: #### 9 9908, 61582 #### [facility] [address] [place] [address], [place] Glucose [Mass/Vol] 97 mg/dL Normal 70-[address] [facility] Comment on above: Performed By: #### 9 9908, 17171 #### [facility] [address] [place] [address], [place] Potassium [Moles/Vol] 3.9 mmol/L Normal 3.5-5.1 [facility] Comment on above: Performed By: #### 9 9909, 24655 #### [facility] [address] [facility] [place] [address], [facility] Sodium [Moles/Vol] 137 mmol/L Normal 136-145 [facility] Comment on above: Performed By: #### 9 99, 41361 #### [facility] [address] [facility]. [address] Urea nitrogen [Mass/Vol] 15 mg/dL Normal 7-25 [facility] Comment on above: Performed By: #### 9 9909, 90376 #### [facility] [address] [facility] [place] [address], [facility] CBC W/DIFFon 08-08-2020 ABS BASOPHILS 0.1 10*3/uL Normal 0.0-0.2 [facility] Comment on above: Performed By: #### 5 0103 #### [facility] [address] [facility] [place] [address], [facility] ABS IMM GRANS 0.0 10*3/uL Normal 0.0-0.2 [facility] Comment on above: Performed By: #### 5 0103 #### [facility] [address] ABS NEUTROPHILS 4.4 10*3/uL Normal 1.6-7.6 [facility] Comment on above: Performed By: #### 5 0103 #### [facility] [address] [facility] [place] [address], [facility] Basophils/100 WBC (Bld) 0.9 % Normal 0.0-1.0 [facility] Comment on above: Performed By: #### 5 0103 #### [facility] [address] [facility] [place] [address], [facility] Eosinophils (Bld) [#/Vol] 0.1 10*3/uL Normal 0.0-0.5 [facility] Comment on above: Performed By: #### 5 0103 #### [facility] [address] [place] [address], [facility] Eosinophils/100 WBC (Bld) 1.1 % Normal 0.0-6.0 [facility] Comment on above: Performed By: #### 5 0103 #### [facility] [address] [place] [address], [facility] Erythrocyte distribution width (RBC) [Ratio] 13.0 % Normal 11.5-15.0 [facility] Comment on above: Performed By: #### 5 0103 #### [facility] [address] [place] [address], [facility] Hematocrit (Bld) [Volume fraction] 42.8 % Normal 36.0-45.0 [facility] Comment on above: Performed By: #### 5 0103 #### [facility] [address] [place] [address], [facility] Hemoglobin (Bld) [Mass/Vol] 14.7 g/dL Normal 12.0-15.0 [facility] Comment on above: Performed By: #### 5 0103 #### [facility] [address] [facility] [place] [place] [address], [facility] IMMATURE GRANS 0.3 % Normal 0.0-1.0 [facility] Comment on above: Performed By: #### 5 0103 #### [facility] [address] [place] [address], [facility] Lymphocytes (Bld) [#/Vol] 2.2 10*3/uL Normal 1.2-4.0 [facility] Comment on above: Performed By: #### 5 0103 #### [facility] [address] [place] [id number], [facility] Lymphocytes/100 WBC (Bld) 30.0 % Normal 20.0-45.0 [facility] Comment on above: Performed By: #### 5 0103 #### [facility] [address] [place] [address], [facility] MCH (RBC) [Entitic mass] 31.4 pg Normal 27.0-33.0 [facility] Comment on above: Performed By: #### 5 0103 #### [facility] [address] [facility] [place] [address], [facility] MCHC (RBC) [Mass/Vol] 34.3 g/dL Normal 32.0-35.0 [facility] Comment on above: Performed By: #### 5 0103 #### [facility] [address] [facility] [place] [address], [facility] MCV (RBC) [Entitic vol] 91.5 fL Normal 82.0-98.0 [facility] Comment on above: Performed By: #### 5 0103 #### [facility] [address] [facility] [place] [address], [facility] Monocytes (Bld) [#/Vol] 0.6 10*3/uL Normal 0.1-1.0 [facility] Comment on above: Performed By: #### 5 0103 #### [facility] [address] [facility] [place] [id number], [facility] MONOS 8.6 % Normal 5.0-12.0 [facility] Comment on above: Performed By: #### 5 0103 #### [facility] [address] [facility] [place] [address], [facility] Neutrophils/100 WBC (Bld) 59.1 % Normal 40.0-72.0 [facility] Comment on above: Performed By: #### 5 3 #### [facility] [address] [place] [id number], [facility] Nucleated RBC/100 WBC (Bld) [Ratio] 0 % Normal 0-0 [facility] Comment on above: Performed By: #### 5 0103 #### [facility] [address] [place] [address], [facility] PLAT CNT 163 10*3/uL Normal 150-400 [facility] Comment on above: Performed By: #### 5 0103 #### [facility] [address] [place] [address], [facility] RBC (Bld) [#/Vol] 4.68 10*6/uL Normal 3.80-5.00 [facility] Comment on above: Performed By: #### 5 0103 #### [facility] [address] [facility] [place] [place] [address], [facility] WBC (Bld) [#/Vol] 7.44 10*3/uL Normal 4.00-10.60 [facility] Comment on above: Performed By: #### 5 0103 #### [facility] [address] [facility] [address] HEPATITIS A ANTIBODY IGMon 0 08-08-2020 HEP A AB IGM NONREACTIVE Normal NONREACTIVE [facility] Comment on above: Performed By: #### 3 1422, [id number], 09257, 10998 #### [facility] [address] [facility]. [address] HEPATITIS B CORE ANTIBODYon 08-08-2020 HEP B CORE AB NONREACTIVE Normal NONREACTIVE The [facility] Comment on above: Performed By: #### 3 1422, 94021, 79248, 35435 #### [facility] [address] [facility]. [address] HEPATITIS B SURFACE ANTIGEN QUALon 08-08-2020 HEP B SURF AG QUAL NONREACTIVE Normal NONREACTIVE [facility] Comment on above: Performed By: #### 3 1422, 73704, 00904, 02443 #### [facility] [address] HEPATITIS C ANTIBODYon 08-08 ANTI-HCV NONREACTIVE Normal NONREACTIVE [facility] Comment on above: Performed By: #### 3 1422, 13257, 97725, 80425 #### [facility] [address] [place] [address], [place] LIVER BATTERYon 08-08-2020 Albumin [Mass/Vol] 4.5 g/dL Normal 3.5-5.[address] [facility] Comment on above: Performed By: #### 9 99, 17282 #### [facility] [address] [place] [address], [facility] ALKALINE PHOSPH 37 IU/L Normal 34-104 [facility] Comment on above: Performed By: #### 9 99, 72268 #### [facility] [address] [place] [id number], [facility] ALT [Catalytic activity/Vol] 56 U/L High 7-52 [facility] Comment on above: Performed By: #### 9 9908, 35968 #### [facility] [address] [place] [id number], [facility] AST [Catalytic activity/Vol] 38 U/L Normal 13-39 [facility] Comment on above: Performed By: #### 9 9908, 58985 #### [facility] [address] [place] [address], [facility] Bilirubin [Mass/Vol] 1.1 mg/dL High 0.3-1.0 [facility] Comment on above: Performed By: #### 9 99, 34226 #### [facility] [address] [place] [id number], [facility] Bilirubin.direct [Mass/Vol] 0.2 mg/dL Normal 0.0-0.2 [facility] Comment on above: Performed By: #### 9 99, 81057 #### [facility] [address] Protein [Mass/Vol] 7.5 g/dL Normal 6.0-8.3 [facility] Comment on above: Performed By: #### 9 9909, 68157 #### [facility] [address] LIVER FIBROSIS CHRONIC VIRAL [id number] 08-08-2020 [id number] IN,FIBROMETER 259 mg/dL Normal 131-293 [facility] ALT [Catalytic activity/Vol] 69 U/L High 5-40 [facility] Amylase [Catalytic activity/Vol] 131 U/L High 7-33 [facility] AST [Catalytic activity/Vol] 54 U/L High 9-40 [facility] Comment on above: Result Comment: This specimen is Hemolyzed. This may cause the results to be falsely increased. CIRRHOMETER PATIENT SCORE 0.12 Normal [facility] EER FIBROMETER REPORT See Note Normal [facility] Comment on above: Result Comment: Acce johnnie [facility] Enhanced Report using the link below: -Direct access: [email or web address] FIBROMETER INTERPRETATION See Report Normal [facility] Comment on above: Result Comment: INTE RPRETIVE INFORMATION: Fibrometer Interpretation Calculations for the final report are based on accurate data for age, gender, and platelet count. If any of this information needs to be corrected, please contact [facility] Client Services to request a recalculation. Client Services may be contacted at . The [employer] FibroMeter profile serves as a surrogate marker [...] developed and its performance characteristics determined by [facility]. It has not been cleared or approved by the [place] Food and Drug Administration. This test was performed in a CLIA certified laboratory and is intended for clinical purposes. [13] [17] Performed By: [facility] [address] [place] [id number] Retirement Plan Specialist: Radha Horton MD FIBROMETER PLATELET CT 163 k/uL Normal [facility] FIBROMETER PLATELET IND 81 % Low 90-120 [facility] FIBROMETER PLATELET SCORE 0.62 Normal [facility] FIBROSIS METAVIR CLASSIFICATION F2[F1-F3] Normal [facility] Comment on above: Result Comment: INTE [...] possible INFLAMETER METAVIR CLASSIFICATION A1/A2 Normal [facility] Comment on above: Result Comment: INTE RPRETIVE INFORMATION: InflaMeter Metavir Classification [employer]aMeter (activity score) comments A0/A1 Equal probability between A0 and A1 A1/A2 Equal probability between A1 and A2 A2/A3 Equal probability between A2 and A3 INFLAMETER PATIENT SCORE 0.61 Normal [facility] Urea nitrogen [Mass/Vol] 14 mg/dL Normal 7-20 [facility] MITOCHONDRIAL ABon 1 MITOCHONDRIAL AB SEE [facility] RESULT Abnormal NONE DETECTED [facility] Comment on above: Result Comment: NONE DETECTED LESS THAN 1:20 INTERMEDIATE LEVEL 1:20 - 1:80 (MAY BE PRESENT IN AUTOALLERGIC LIVER DISEASE) ELEVATED LEVEL GREATER THAN OR EQUAL TO 1:160 (STRONGLY SUGGESTIVE OF PRIMARY BILIARY CIRRHOSIS) Performed By: #### 1 0196, 90158 #### [facility] [address] MITOCHONDRIAL M2 ANTIBODY, [place] [id number] 08-08-2020 MITOCHONDRIAL M2 ANTIBODY IGG 2.1 Units Normal 0.0-24.9 [facility] Comment on above: Result Comment: REFE [...] does not rule out PBC. Performed By: [facility] [address] [place] [address] Retirement Plan Specialist: Radha Horton MD PROTHROMBIN TIMEon 1 INR Coag (PPP) [Relative time] 1.05 {INR} Normal 0.91-1.16 [facility] Comment on above: Result Comment: ACCC [...] CHEST 1995;108:[id number]. Performed By: #### 1 0196, 81210 #### [facility] [address] [facility]. [address] PT Coag (PPP) [Time] 13.7 s Normal 12.3-14.8 [facility] Comment on above: Result Comment: ALL RESULTS MUST BE INTERPRETED WITH RESPECT TO BLOOD DRAWING ARTIFACT OR DILUTION ERROR OF ANTICOAGULANT AT THE TIME OF SAMPLING. Performed By: #### 1 0196, 58876 #### [facility] [address] [facility]. [address] XR FOOT LEFT (MIN 3 VIEWS)on 04-24-2019 No acute osseous abnormality in the left foot. [facility]ATION: THREE XRAY VIEWS OF [...] Joint spaces are preserved. No bony erosion. [facility] Rashid, pn Incoming Radiant Results From [email or web address] - 04/24/2019 5:49 PM EDT EXAMINATION: THREE [...] acute osseous abnormality in the left foot. [facility] [place], [place] Large Joint Arthro/Inj: bila teral greater trochanteric bursa injection [facility] Vital Signs Date Time Vital Sign Value Performing Clinician Faci lity 09-02-2023 11:36-0500 Body height 172.1 cm Michael Perkins MD Work Phone: [facility] 09-02-2023 11:36-0500 Body mass index (BMI) [Ratio] 38.6 kg/m2 Michael Perkins MD Work Phone: [facility] 09-02-2023 11:36-0500 Body weight 114.31 kg Michael Perkins MD Work Phone: [facility] 09-02-2023 11:36-0500 Diastolic blood pressure 90 mm[Hg] Michael Perkins MD Work Phone: [facility] 09-02-2023 11:36-0500 Heart rate 107 /min Michael Perkins MD Work Phone: [facility] 09-02-2023 11:36-0500 SaO2% (BldA) [Mass fraction] 94 % Michael Perkins MD Work Phone: [facility] 09-02-2023 11:36-0500 Systolic blood pressure 128 mm[Hg] Michael Perkins MD Work Phone: [facility] 08-05-2023 11:00-0500 Body height 167 cm Cody HURLEY Work Phone: [facility] 08-05-2023 11:00-0500 Body mass index (BMI) [Ratio] 39.39 kg/m2 Cody HURLEY Work Phone: [facility] 08-05-2023 11:00-0500 Body weight 109.86 kg Cody Hutchins [employer] RESERVATIONS MANAGER [facility] 08-05-2023 11:00-0500 Diastolic blood pressure 88 mm[Hg] Cody Hutchins [employer]IGHT RESERVATIONS MANAGER [facility] 08-05-2023 11:00-0500 Heart rate 88 /min Cody Hutchins APRN-FLIGHT RESERVATIONS MANAGER Work Phone: [facility] 08-05-2023 11:00-0500 Systolic blood pressure 130 mm[Hg] Cody Hutchins [employer] RESERVATIONS MANAGER Work Phone: [facility] 07-13-2023 16:15-0500 Body height 167.64 cm Beba Richey Other [employer] Other 07-13-2023 16:15-0500 Body mass index (BMI) [Ratio] 39.06 kg/m2 Beba Rossi Other [employer] Other 07-13-2023 16:15-0500 Body temperature 97.3 [degF] Beba Rossi Other [employer] Other 07-13-2023 16:15-0500 Body weight 109.77 kg Beba Rossi Other [employer] Other 07-13-2023 16:15-0500 Diastolic blood pressure 80 mm[Hg] Beba Rossi Other [employer] Other 07-13-2023 16:15-0500 Respiratory rate 18 /min Beba Rossi Other [employer] Other 07-13-2023 16:15-0500 SaO2% (BldA) [Mass fraction] 98 % Beba Richey Other [facility] [employer] Other 07-13-2023 16:15-0500 Systolic blood pressure 120 mm[Hg] Beba Rossi Other [facility] [employer] Other 06-24-2023 11:38-0500 Body height 167.6 cm Noemi Pham MD Work Phone: [facility] 06-24-2023 11:38-0500 Body weight 108.86 kg Noemi Pham MD Work Phone: [facility] 06-24-2023 11:38-0500 Diastolic blood pressure 77 mm[Hg] Noemi Pham MD Work Phone: [facility] 06-24-2023 11:38-0500 Heart rate 104 /min Noemi Pham MD Work Phone: [facility] 06-24-2023 11:38-0500 Respiratory rate 20 /min Noemi Pham MD Work Phone: [facility] 06-24-2023 11:38-0500 Systolic blood pressure 114 mm[Hg] Noemi Pham MD Work Phone: [facility] 08-11-2022 09:48-0500 Body weight 102.51 kg Noemi Pham MD Work Phone: [facility] 08-11-2022 09:48-0500 Diastolic blood pressure 73 mm[Hg] Noemi Pham MD Work Phone: [facility] 08-11-2022 09:48-0500 Heart rate 94 /min Noemi Pham MD Work Phone: [facility] 08-11-2022 09:48-0500 Systolic blood pressure 118 mm[Hg] Noemi Pham MD Work Phone: [facility] 02-07-2021 11:53-0400 Body mass index (BMI) [Ratio] 37.12 kg/m2 Garfield Restrepo MD [facility] Work Phone: 02-07-2021 11:53-0400 Body temperature 98.4 [degF] Garfield Restrepo MD [employer] Phone: 02-07-2021 11:53-0400 Body weight 104.33 kg Garfield Restrepo MD [employer] Phone: 02-07-2021 11:53-0400 Diastolic blood pressure 92 mm[Hg] Garfield Restrepo MD [employer] Phone: 02-07-2021 11:53-0400 Heart rate 108 /min Garfield Restrepo MD [employer] Phone: 02-07-2021 11:53-0400 Respiratory rate 16 /min Garfield Restrepo MD [employer] Phone: 02-07-2021 11:53-0400 SaO2% (BldA) [Mass fraction] 96 % Garfield Restrepo MD [employer] Phone: 02-07-2021 11:53-0400 Systolic blood pressure 122 mm[Hg] Garfield Restrepo MD [employer] Phone: 04-24-2019 15:30-0400 Pulse (Heart Rate) 104 /min [place], [place] 04-24-2019 15:28-0400 BMI (Body Mass Index) 35.51 kg/m2 [facility], [place] 04-24-2019 15:28-0400 Body Temperature 98.4 [degF] [facility], [place] 04-24-2019 15:28-0400 Body weight 99.79 kg [place], [place] 04-24-2019 15:28-0400 BP Diastolic 81 mm[Hg] [facility] , [place] 04-24-2019 15:28-0400 BP Systolic 116 mm[Hg] [facility] , [place] 04-24-2019 15:28-0400 Height 167.6 cm [place], [place] 04-24-2019 15:28-0400 Pulse Oximetry 95 % Gold [facility]- [place] , [place] 04-24-2019 15:-0 Respiratory Rate 15 /min Gold [facility] H, CIPRIANO Encounters Encounter Date Encounter Type Care Provider Facility Start: 09-29-2023 ambulatory Noemi Pham MD Work Phone: Rheumatology Comment on above: Denied mri Start: 09-27-2023 End: 09-28-2023 Emergency department patient visit NASEEM Alvarado L[facility] Start: 09-27-2023 End: 09-27-2023 Emergency department patient visit TOY OBRIEN [facility] Start: 09-26-2023 ambulatory Noemi Pham MD [...] above: Pain Start: 09-02-2023 End: 09-02-2023 ambulatory STEVENSON [facility] Start: 09-02-2023 End: 09-02-2023 Office outpatient visit 25 minutes Michael Perkins MD Work Phone: [facility] Comment on above: Primary hypertension (Primary Dx); Coronary artery vasospasm (CMS-HCC); Intermittent palpitations; Obstructive sleep apnea Start: 09-01-2023 Telephone encounter Mei Garcia [facility] Comment on above: Appointment Start: 08-05-2023 End: 08-05-2023 ambulatory [facility] Start: 08-05-2023 End: 08-05-2023 Office outpatient visit 25 minutes [facility] [employer] RESERVATIONS MANAGER Work Phone: [facility] Comment on above: Status migrainosus ( Primary Dx); Migraine without aura and without status migrainosus, not intractable; Cervicalgia; Fibromyalgia; Paresthesias; Trapezius muscle spasm; Vertigo Start: 08-03-2023 Telephone encounter Gloria Box [facility] Start: 07-21-2023 End: 07-21-2023 ambulatory Betty Moreau Other [employer] Other Start: 07-21-2023 Telephone encounter Naz Holt [facility] Comment on above: Headache Start: 07-13-2023 End: 07-13-2023 ambulatory Beba Richey Other [employer] Other Start: 07-13-2023 Office outpatient vi sit 15 minutes Beba Richey [facility] Start: 06-24-2023 End: 06-25-2023 ambulatory TOY OBRIEN Facility:[facility] Start: 06-24-2023 End: 06-24-2023 ambulatory TOY OBRIEN Facility:[facility] Start: 06-24-2023 End: 06-24-2023 Subsequent hospital visit by physician Mayte Alonso Work Phone: [facility] General Comment on above: Pain in joint, multi ple sites [M25.50] Start: 06-24-2023 End: 06-24-2023 Patient encounter procedure Noemi Pham MD Work Phone: Rheumatology Comment on above: Pain in joint, multi ple sites (Primary Dx); Trochanteric bursitis of both hips Start: 05-27-2023 End: 05-27-2023 ambulatory Jud Monson Other [employer] Other Start: 05-27-2023 Office outpatient vi sit 25 minutes Jud Monson [facility] Start: 05-12-2023 Telephone encounter Noemi perez MD Work Phone: Rheumatology Comment on above: Medication Problem Start: 03-21-2023 End: 03-22-2023 ambulatory TERRY SHEFFIELD [facility] Start: 03-09-2023 Telephone encounter Noemi perez MD Work Phone: Rheumatology Start: 01-28-2023 Telephone encounter Noemi perez MD Work Phone: Rheumatology Comment on above: Orders Start: 01-26-2023 ambulatory Noemi Pham MD Work Phone: Rheumatology Comment on above: results of blood wor k Start: 01-26-2023 E-mail encounter fro m caregiver Noemi Pham MD Work Phone: MATILDA REIS [facility] Start: 01-14-2023 End: 01-15-2023 ambulatory TOY OBRIEN Facility[facility] Start: 01-11-2023 Refill Noemi Pham MD Work Phone: Rheumatology Comment on above: Refill Request Start: 12-24-2022 End: 12-24-2022 ambulatory TOY OBRIEN Neurology Start: 12-24-2022 End: 12-24-2022 Patient encounter procedure Emg 3 Neur Main (Max Weight: 1000) Work Phone: [facility] Start: 12-17-2022 End: 12-17-2022 ambulatory LACHELLE ALONZO [facility] Start: 12-13-2022 End: 12-18-2022 ambulatory TOY OBRIEN [facility] Start: 12-01-2022 Telephone encounter Noemi perez [...] Refill Request Start: 09-08-2022 End: 09-08-2022 ambulatory [facility] Start: 09-08-2022 End: 09-08-2022 ambulatory [facility] Start: 08-11-2022 End: 08-12-2022 ambulatory NOEMI PHAM Facility:[facility] Start: 08-11-2022 End: 08-11-2022 Patient encounter procedure Noemi Pham MD Work Phone: Rheumatology Comment on above: Rheumatoid arthritis involving multiple sites, unspecified whether rheumatoid factor present (HCC) (Primary Dx) Start: 07-30-2022 End: 07-30-2022 ambulatory Jud Monson Facility:[facility] Start: 07-30-2022 End: 07-30-2022 ambulatory [employer] Jud Monson Work Phone: [facility] Work Phone: Start: 07-30-2022 End: 07-30-2022 Patient encounter procedure [employer]-C Jud Monson Work Phone: [facility] Start: 06-04-2022 Telephone encounter Noemi perez MD Work Phone: Rheumatology Comment on above: Insurance Authorizat ion Start: 06-02-2022 ambulatory Noemi Pham MD Work Phone: Rheumatology Comment on above: Ankle pain Start: 05-29-2022 Refill Noemi Pham MD Work Phone: Rheumatology Comment on above: Refill Request Start: 05-26-2022 End: 05-26-2022 ambulatory [facility] Start: 05-17-2022 Telephone encounter Noemi perez MD Work Phone: [address] [place] [address] Comment on above: Patient Question Start: 12-29-2021 Telephone encounter Noemi perez MD Work Phone: Rheumatology Comment on above: Patient Request Start: 10-27-2021 ambulatory Noemi Pham MD Work Phone: Rheumatology Comment on above: Handicap plaquered Start: 07-22-2021 End: 07-25-2021 ambulatory [facility] Start: 07-03-2021 End: 07-06-2021 ambulatory [facility] Start: 02-07-2021 End: 02-07-2021 Emergency department patient visit [facility] Start: 02-07-2021 End: 02-07-2021 Emergency department patient visit Garfield Restrepo MD [facility] ED Comment on above: Neuropathic pain (Pr imary Dx) Start: 01-19-2021 End: 01-19-2021 Emergency department patient visit [facility] Start: 05-20-2020 End: 05-20-2020 Subsequent hospital visit by physician Zackary Garcia [facility] Comment on above: Canceled (Patient no show) Start: 05-16-2020 End: 05-16-2020 Subsequent hospital visit by physician Glory OSORIOZ [facility] Comment on above: Canceled (Patient) Start: 05-14-2020 End: 05-14-2020 Subsequent hospital visit by physician Sander Jauregui [facility] Start: 04-24-2019 End: 04-24-2019 Emergency department patient visit Gold Denis Graves Work Phone: [facility] ED Comment on above: Sprain of left foot, initial encounter (Primary Dx) Procedures Date Procedure Procedure Detail Performing Clinician Start: 09-02-2023 Ecg routine ecg w/least 12 lds w/i&r Michael Perkins MD Work Phone: Start: 09-02-2023 Follow-up visit Follow-up MICHAEL PERKINS Start: 06-24-2023 Radex spine lumbosacral 2/3 views Noemi Pham MD Work Phone: Start: 06-24-2023 Arthrocentesis aspir&/inj major jt/bursa w/o us Neomi Pham MD Work Phone: Start: 05-13-2023 Diabetic retinal eye exam Naz Vasques Start: 12-24-2022 Nerve conduction studies 5-6 studies Liz Connolly MD Work Phone: Start: 12-17-2022 Colonoscopy Emg 1000) Work Phone: Start: 09-06-2022 Adult depression screening assessment Naz Vasques Start: 07-30-2022 Plain X-ray of right elbow [employer] W[employer]ER-C Jud Monson Work Phone: Start: 07-24-2021 Lipid [...] - S blanca or Plasma Lipid Screening [facility] Start: 07-24-2026 Lipid panel Lipid Screening [facility] Start: 07-24-2026 LIPID SCREEN LIPID SCREEN [facility] Start: 06-24-2026 Diabetes Screening Diabetes Screenin g [facility] Start: 11-08-2025 DIABETES SCREEN [facility] Start: 11-08-2025 Diabetes Screening Diabetes Screenin g [facility] Start: 08-11-2025 DIABETES SCREEN DIABETES SCREEN [facility] Start: 09-02-2024 Adult BMI Screening Adult BMI Screen ing [facility] Start: 09-02-2024 Tobacco Screening Tobacco Screening [facility] Start: 08-05-2024 Adult BMI Screening Adult BMI Screen ing [facility] Start: 08-05-2024 Tobacco Screening Tobacco Screening [facility] Start: 05-13-2024 Glaucoma screening Diabetic Op hthalmology Exam [facility] Start: 05-13-2024 Tobacco Screening Tobacco Screening [facility] Start: 05-12-2024 Adult BMI Screening Adult BMI Screen ing [facility] Start: 12-18-2023 Colonoscopy COLONOSCOPY [facility] Start: 12-18-2023 COLORECTAL CANCER SCREENING COLORECTAL CANCER SCREENING [facility] Start: 12-18-2023 Screening for malign ant neoplasm of colon [facility] Start: 10-28-2023 End: 10-28-2023 Patient encounter procedure 10/28/2023 9:00 AM EDT Office Visit [facility] [address] [place] [address] Cody Hutchins, RIBBON TIER-FLIGHT RESERVATIONS MANAGER [address] [place] [address] [facility] Start: 10-14-2023 End: 10-14-2023 Patient encounter procedure 10/14/2023 1:10 PM EDT Office Visit [facility] [address] [place] [address] Dallas Tobar MD [address] [place] [address] [facility] Start: 09-30-2023 End: 09-30-2023 Patient encounter procedure [facility] Start: 09-30-2023 End: 09-30-2023 ambulatory 09/30/2023 9:30 AM EST Ophthalmology Imaging [facility] [address] [place] [address] [facility] Start: 09-16-2023 End: 09-16-2023 Patient encounter procedure 09/16/2023 10:30 AM EST Office Visit [facility] [address] [place] [address] Dallas Tobar MD [address] [place], [place] [id number] [facility] Start: 09-06-2023 Depression Screening Depression [facility] Start: 09-02-2023 End: 09-02-2023 Patient encounter procedure [facility] Start: 08-05-2023 End: 08-05-2023 Patient encounter procedure 08/05/2023 11:30 AM EST [facility] [address] [place] [address] Cody Hutchins APRN-FLIGHT RESERVATIONS MANAGER [address] [place] [address] [facility] Start: 07-25-2023 Depression Assessment Depression Ass essment [facility] Start: 05-16-2023 DIABETES SCREEN DIABETES SCREEN [facility] Start: 03-25-2023 Covid-19 Vaccine ( season) Covid-19 Vaccine () [facility] Start: 03-25-2023 Influenza vaccination [facility] Start: 01-26-2023 End: 03-28-2023 Extractable nuclear Ab panel - Serum ANTI LEVY ID Lab Routine Rheumatoid arthritis involving multiple sites, unspecified whether rheumatoid factor present (HCC) Expected: 01/26/2023, Expires: 03/28/2023 [facility] Work Phone: Comment on above: Expected: 01/26/2023 , Expires: 03/28/2023 Start: 10-27-2022 End: 12-27-2022 Aldolase [Enzymatic activity/volume] in Serum or Plasma ALDOLASE BLD Lab Routine Myalgia Expected: 10/27/2022, Expires: 12/27/2022 [facility] Work Phone: Comment on above: Expected: 10/27/2022 , Expires: 12/27/2022 Start: 10-27-2022 End: 12-27-2022 Creatine kinase [Enzymatic activity/volume] in Serum or Plasma CK CREATINE KINASE Lab Routine Myalgia Expected: 10/27/2022, Expires: 12/27/2022 [facility] Work Phone: Comment on above: Expected: 10/27/2022 , Expires: 12/27/2022 Start: 08-11-2022 End: 10-11-2022 Aldolase [Enzymatic activity/volume] in Serum or Plasma [facility] Work Phone: Comment on above: Expected: 08/11/2022 , Expires: 10/11/2022 Start: 07-25-2022 DEPRESSION ASSESSMENT DEPRESSION ASS ESSMENT [facility] Start: 03-25-2022 Influenza vaccination INFLUENZA (#1) [facility] Start: 03-19-2022 Adult depression screening assessment DEPRESSION SCREENING [facility] Start: 01-27-2022 DTaP,Tdap and Td Vaccines (2 - Td or Tdap) DTaP,Tdap and Td Vaccines (2 - Td or Tdap) [facility] Start: 01-27-2022 DTaP/Tdap/Td vaccine (2 - Td or Tdap) DTaP/Tdap/Td vaccine (2 - Td or Tdap) [facility] Work Phone: Start: 01-27-2022 DTaP/Tdap/Td vaccine (2 - Td) DTaP/Tdap/Td vaccine (2 - Td) [facility] [place] Start: 01-27-2022 Urine microalbumin profile DTaP,Tdap,Td Vaccine (2 - Td or Tdap) [facility] Start: 07-25-2021 DEPRESSION ASSESSMENT DEPRESSION ASS ESSMENT [facility] Start: 03-25-2021 Influenza vaccination Flu vaccine (# 1) [employer] Phone: Start: 01-12-2021 COVID-19 VACCINE (3 - Booster for Pfizer series) COVID-19 VACCINE (3 - Booster for Pfizer series) [facility] Start: 01-12-2021 COVID-19 VACCINE (3 - Pfizer series) COVID-19 VACCINE (3 - Pfizer series) [facility] Start: 12-15-2020 COVID-19 VACCINE (3 - Pfizer risk 4-dose series) COVID-19 VACCINE (3 - Pfizer risk 4-dose series) [facility] Start: 12-15-2020 COVID-19 VACCINE (3 - Pfizer risk series) COVID-19 VACCINE (3 - Pfizer risk series) [facility] Start: 2020 COLOGUARD (FIT-DNA) COLOGUARD (FIT-D NA) [facility] Start: 2020 Colonoscopy COLONOSCOPY [facility] Start: 2020 COLORECTAL CANCER SCREENING COLORECTAL CANCER SCREENING [facility] Start: [address] COLONOGRAPHY [facility] Start: 2020 FECAL OCCULT BLOOD FECAL OCCULT BLOO D [facility] Start: 2020 Screening for malign ant neoplasm of colon [facility] Start: 2020 SIGMOIDOSCOPY SIGMOIDOSCOPY [facility] Start: 05-29-2020 End: 05-29-2020 Appointment 05/29/2020 Appointment Physical Therapy Jeremie Barnett PTA [facility] Start: 05-28-2020 End: 05-28-2020 Appointment 05/28/2020 Appointment Physical Therapy Jeremie Barnett PTA [facility] Start: 05-23-2020 End: 05-23-2020 Appointment 05/23/2020 Appointment Physical Therapy Glory Ortiz PTA [facility] Start: 05-20-2020 End: 05-20-2020 Appointment [facility] Start: 05-16-2020 End: 05-16-2020 Appointment 05/16/2020 Appointment Physical Therapy Glory Ortiz PTA [facility] Start: 03-25-2020 Influenza vaccination Flu vaccine (# 1) [place], [place] Start: 03-25-2019 Influenza vaccination Flu vaccine (# 1) [place] Start: 2015 Diabetes screen Diabetes screen [facility] [employer] Phone: Start: 2015 Lipid panel Lipid screen [place], [place] Start: 2015 Lipid screen Lipid screen [place], [place] Start: 2015 Mammography [facility] Start: 2015 Screening for malign ant neoplasm of breast Mammogram Screening [facility] Start: 2005 HPV TESTING HPV TESTING [facility] Start: 2005 Screening for malign ant neoplasm of cervix HPV Testing [facility] Start: 1996 Cervical cancer screen Cervical canc er screen [place] Start: 1996 PAP TESTING PAP TESTING [facility] Start: 1996 Screening for malign ant neoplasm of cervix [facility] Start: 1994 SHINGRIX VACCINE (1 of 2) SHINGRIX VACCINE (1 of 2) [facility] Start: 1994 Urine microalbumin profile [facility] Start: 1993 Adult BMI Follow Up Plan Adult BMI Follow Up Plan [facility] Start: 1993 Diabetic foot examination Diabetic Foot Exam [facility] Start: 1993 HIV SCREENING HIV SCREENING [facility] Start: 1993 HIV screening HIV Screening [facility] Start: 1990 [facility] [place] Start: 1990 HIV screening [facility] [place] Start: 1981 PNEUMOCOCCAL (1 - PCV) PNEUMOCOCCAL (1 - PCV) [facility] Start: 1981 Pneumococcal vaccination [facility] Start: 1975 Hepatitis C screening Hepatitis C sc rita [facility] Work Phone: End: 11-24-2023 EMG(NEURO/NI) EMG(NEURO/NI) EMG Routine Fatigue, unspecified type Elevated aldolase level Generalized weakness 1 Occurrences starting 11/23/2022 until 11/24/2023 [facility] Work Phone: Comment on above: 1 Occurrences starti ng 11/23/2022 until 11/24/2023 End: 10-20-2024 MR Lumbar spine WO contrast MRI LUMBAR SPINE WO IVCON Radiology Routine Spinal stenosis of lumbar region with neurogenic claudication 1 Occurrences starting 09/21/2023 until 10/20/2024 [facility] Work Phone: Comment on above: 1 Occurrences starti ng 09/21/2023 until 10/20/2024 End: 10-18-2024 XR Lumbar spine 3 Views XR LUMBAR GENERAL 3V AP/LAT/L5-S1 Radiology Routine Chronic bilateral low back pain without sciatica 1 Occurrences starting 09/19/2023 until 10/18/2024 [facility] Work Phone: Comment on above: 1 Occurrences starti ng 09/19/2023 until 10/18/2024 [facility] Immunizations Immunization Date Immunization Notes Care Provider Fa cili 04-23-2021 influenza virus vacc ine, unspecified formulation Noemi Pham MD Work Phone: [facility] Payers Date Payer Category Payer Self-pay 2021 Unknown MMO MMO [employer] [id number] 2021-Present [phone] [address] [place] [address] PPO [id number] 2021 Unknown [id number] 2021 Medicare [id number] 2021 Unknown [id number] 2020 Unknown [id number] 2015 Unknown [facility] xxxxxxxxxxxx 2015-Present [phone] [address] [place] [address] xxxxxxxxxxxx [id number] 2003 Medicaid [place] [employer] [place] [employer] [id number] 2003-Present [phone] [address] [place] [address] Medicaid [id number] 2003 Medicaid [id number] 2003 Unknown [id number] 1975 Unknown [id number] 1975 Unknown [id number] 1975 Unknown [id number] 1975 Unknown [id number] 1975 Unknown [id number] 1975 Unknown [id number] 1975 Unknown [id number] 1975 Unknown [id number] 6 1975 Unknown [id number] 6 1975 Unknown [id number] 6 1975 Unknown [id number] 6 Unknown [id number] Social History Date Type Detail Facility Start: 06-18-2018 End: 08-11-2022 Tobacco smoking status NHIS Never smoker [facility] Start: 06-18-2018 End: 08-11-2022 Tobacco use and exposure Never used [place] Start: 06-18-2018 End: 06-24-2023 Alcohol intake Current drinker of alcohol (finding) [place] Start: 08-28-2017 Alcohol Comment social [place], [place] Start: 1975 Sex Assigned At Not on file [place] Start: 06-18-2018 End: 12-24-2022 Alcohol intake Yes [facility] Start: 12-14-2022 End: 12-24-2022 Exposure to SARS-CoV-2 (event) Not sure [facility] Start: 10-26-2018 History SDOH Alcohol Comment Occasional [facility] Start: 1975 Sex Assigned At Female F [facility] Start: 12-24-2022 End: 01-14-2023 History of Social function [facility] National Score (1-10 0), lower number is lower risk 76 [facility] Start: 08-14-2019 Alcohol Comment occasional [facility] Start: 09-06-2022 Gender identity Identifies as female gender (finding) [facility] Start: 09-06-2022 Sexual orientation Heterosexual (fin ding) [facility] Clinical Notes 10-28-2021 to 09-29-2023 Telephone Encounter - Inocencia Bui LPN - 09/29/2023 2:39 PM ESTTelephone Encounter - Inocencia Bui LPN - 09/26/2023 3:28 PM ESTTelephone Encounter - Zayra Sarabia - 09/20/2023 9:02 AM EST Note Date & Type Note Facility 09-29-2023 Miscellaneous Notes Denial paperwork received. Placed on Dr. Pham's desk for review. documented in this encounter [facility] 09-26-2023 Miscellaneous Notes Office notes faxed to [facility] per patient request. documented in this encounter [facility] 09-23-2023 Miscellaneous Notes MRI faxed via [employer]. documented in this encounter [facility] 09-22-2023 Miscellaneous Notes Received back with signature from Dr. Pham and faxed to [phone] per Patients request. Printed and placed on Dr. Pham's desk for signature. Patient is calling today to request her MRI of the Lumbar spine be printed and signed and faxed over to [facility] at: [phone]. Please call and advise when this is done so she can get this scheduled. Patient has been identified by name and birthdate. Duration of symptoms: N/A Person calling: self Call patient at: at home [phone] (home) [phone] (cell) Was an appointment scheduled: No Closing statement: Results or non-symptom based questions: Thank you for calling [facility], your call will be returned within the next business day. Abby Nassar documented in this encounter [facility] 09-21-2023 Miscellaneous Notes Order for MRI of lumbar spine placed, please call patient to schedule. Noemi Pham MD documented in this encounter [facility] 09-21-2023 Miscellaneous Notes Received fax from [facility]. X-ray results XR lumbar spine. One copy given to Dr. Pham and one copy sent to scanning documented in this encounter [facility] 09-20-2023 Miscellaneous Notes Faxed x-ray orders to both fax numbers as requested by patient. Faxed via [employer]. Patient called to check on status regarding fax. Also requested the order to be faxed to [phone]. Please call patient once order is faxed. Called and spoke with pt. She states it is the R-Hip. She needs us to fax orders to [facility] [phone]. Yes I can order xray of hip and low back. Which hip is it? Noemi Pahm MD Patient called. Right lower back, hip [...] for any orders to be faxed to [facility] documented in this encounter [facility] 09-02-2023 History of Present illness Narrative Lynette [...] of stress. 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 Past Medical History: Diagnosis Date Anxiety Asthma Autoimmune disease ([facility]) 09/26/2019 Chronic rheumatic arthritis ([facility]) Depression Diabetes mellitus ([facility]) Fibromyalgia GERD (gastroesophageal reflux disease) HLD (hyperlipidemia) HTN (hypertension) HTN (hypertension) 09/22/2021 Hypothyroidism Migraine Moderate mitral regurgitation Obstructive sleep apnea syndrome 02/12/2020 POTS (postural orthostatic tachycardia syndrome) RA (rheumatoid arthritis) ([facility]) Syncope TOS (thoracic outlet syndrome) No data recorded No data recorded No data recorded Past Surgical History: Procedure Laterality Date ADENOIDECTOMY APPENDECTOMY BLADDER SUSPENSION Cardiac catheterization - CORS + LV GRAM/PRESS (43518) Left 10/08/2021 Performed by Ana María Plasencia MD at [facility] CARDIAC CATH LABS CHOLECYSTECTOMY ENDOMETRIAL BIOPSY [...] - POCT EKG 2. Coronary artery vasospasm ([facility]) 3. Intermittent palpitations Assessment: Coronary vasospasm; [facility] 09/2021: Minimal CAD, spasm in the rPDA [...] MD Referring Physician: Toy Obrien MD [address] [place] [address] Referral and perts faxed to Pulmonology . documented in this encounter [facility] 09-01-2023 Miscellaneous Notes Left message for patient to remind them to bring their most current medication list with them to their appointment. documented in this encounter [facility] 09-01-2023 Telephone encounter Note Left message for patient to remind them to bring their most current medication list with them to their appointment. [facility] 08-05-2023 History of Present illness Narrative Subjective: [...] Norflex does not help. She sees a prep room supervisor for rheumatoid arthritis ([place]) and fibromyalgia. Sleep/Social [...] muscles. 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 She would like to start a preventative [...] Diagnosis Date Anxiety Asthma Autoimmune disease ([facility]) 09/26/2019 Chronic rheumatic arthritis ([facility]) Depression Diabetes mellitus ([facility]) Fibromyalgia GERD (gastroesophageal reflux disease) HLD (hyperlipidemia) HTN (hypertension) HTN (hypertension) 09/22/2021 Hypothyroidism Migraine Moderate mitral regurgitation Obstructive sleep apnea syndrome 02/12/2020 POTS (postural orthostatic tachycardia syndrome) RA (rheumatoid arthritis) ([facility]) Syncope TOS (thoracic outlet syndrome) Past Surgical History: Procedure Laterality Date ADENOIDECTOMY APPENDECTOMY BLADDER SUSPENSION Cardiac catheterization - CORS + LV GRAM/PRESS (43457) Left 10/08/2021 Performed by Ana María Plasencia MD at [facility] CARDIAC CATH LABS CHOLECYSTECTOMY ENDOMETRIAL BIOPSY [...] muscles. 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 She would like to start a preventative [...] procedures Referring and communicating with other health memory care director (not separately reported) Documenting clinical information in the electronic or other health record Care coordination (not separately reported) - Cody Hutchins DNP, APRN-CNP 08/05/23 12:01 PM [facility]I [facility] 08/05/23 1202 documented in this encounter [facility] 08-05-2023 Instructions MEI Corona - 08/05/2023 11:30 [...] --exercise bicycle pedals documented in this encounter [facility] 08-03-2023 Miscellaneous Notes Patient contacted our office requesting a sooner appt. Patient just started a new job and is off every other Tuesday and she is off this Tuesday. Table Machine Operator looked and there are no appts [...] can add 100 mg in the morning. Table Machine Operator called pt. And left a message for her to call the office back to discuss her medication dosage question. Received call today 08/04/23 9:22 from patient who is requesting a call back in regard to previous message. Please call back and advise, callback#: [phone]. Table Machine Operator spoke with pt. Table Machine Operator told pt about the med dosage per Cody Hutchins and pt stated she understood. Pt also stated she is in so much pain asking for a migraine cocktail so she was added to schedule tomorrow 08/05/23. documented in this encounter [facility] 08-03-2023 Telephone encounter Note Patient contacted our office requesting a sooner appt. Patient just started a new job and is off every other Tuesday and she is off this Tuesday. Table Machine Operator looked and there are no appts [...] get her a sooner appt. Please advise. [facility] 08-03-2023 Telephone encounter Note Meron: when you are doing reminder calls for 08/05/2023, if anyone wants to cancel, please contact Lynette and put her on the schedule Clinical: If she is taking 100 mg of zonisamide each evening, she can increase her dose to 200 mg (two of the 100 mg capsules) each evening. [facility] 08-03-2023 Telephone encounter Note Patient is already taking 200 mg of the Zonisamide nightly. Please advise. [facility] Telephone encounter Note She can add 100 mg in the morning. [facility] Telephone encounter Note Table Machine Operator called pt. And left a message for her to call the office back to discuss her medication dosage question. [employer] 08-03-2023 Telephone encounter Note Received call today 08/04/23 9:22 from patient who is requesting a call back in regard to previous message. Please call back and advise, callback#: [phone]. [facility] 08-03-2023 Telephone encounter Note Table Machine Operator spoke with pt. Table Machine Operator told pt about the med dosage per Cody Hutchins and pt stated she understood. Pt also stated she is in so much pain asking for a migraine cocktail so she was added to schedule tomorrow 08/05/23. [facility] [employer] 07-21-2023 Miscellaneous Notes 1) When did the [...] requesting a call back to further discuss [phone]. Thank you so much She can increase the zonisamide to 200 mg (2 of the 100 mg capsules) each evening. Patient returned phone call. Table Machine Operator informed her of Cody Hutchins's message below. She voiced understanding. documented in this encounter [facility] [employer] 07-21-2023 Telephone encounter Note 1) When did [...] requesting a call back to further discuss [phone]. [facility] you so much [facility] Telephone encounter Note She can increase the zonisamide to 200 mg (2 of the 100 mg capsules) each evening. [facility] [employer] [facility] 07-21-2023 Telephone encounter Note Patient returned phone call. Table Machine Operator informed her of Cody Hutchins's message below. She voiced understanding. [facility] [employer] [facility] 07-13-2023 Evaluation note Encounter Date Diagnosis Assessment [...] unspecified otitis media type (ICD-10 - H66.91) [employer] Other 12-01-2023 NoteHNO ID: [id number] Author: Chato Chacko RT(R) Service: Radiology Author [...] BY: RT Aurelio(R) June 24, 2023 12:47 [id number] NoteHNO ID: [id number] Author: Noemi Pham MD Service: ? Author [...] bursa injection Informed Consent Consent Obtained: Verbal [place] Protocol A moment to CARE was completed. [...] F/U: 6m Check following: -none Noemi Pham, [facility]12-01-2023 History of Present illness Narrative* Chato [...] 24, 2023 12:47 PM documented in this encounterGuernsey [facility]12-01-2023 History of Present illness Narrative* Noemi Pham [...] bursa injection Informed Consent Consent Obtained: Verbal [place] Protocol A moment to CARE was completed. [...] -none Noemi Pham MD documented in this encounterGuernsey [facility] Hospital11-03-2023 Evaluation note* Encounter Date Diagnosis Assessment Notes [...] May, Right elbow pain (ICD-10 - M25.521) [employer] Other 10-19-2023 Miscellaneous Notes* Telephone Encounter - Allison York OCCA - 05/12/2023 1:29 PM EDT Faxed [facility], patient is no longer on medication * Telephone Encounter - Minh Mosqueda - 05/12/2023 1:16 PM EDT Ashwini from [facility] is calling Noemi Pham MD today to clarify medication. When they were filling the enbrel, it flagged that the patient has a thrombocytopenia diagnosis. They need to clarify that the provider is aware. They cannot send the medication until they get that clarification. [phone] Patient has been identified by name and birthdate. Duration of symptoms: N/A Person calling: pharmacy: [facility] Call patient at: on cell [phone] (home) [phone] (cell) Was an appointment scheduled: No Closing statement: Results or non-symptom based questions: Thank you for calling [facility], your call will be returned within the next business day. Minh Mosqueda documented in this encounterGuernsey Memorial Hospital08-16-2023 Miscellaneous Notes* Telephone Encounter - Jud Hess LPN - 03/09/2023 1:59 PM EDT Patient stopped taking the Plaquenil d/t skin rash. Provider aware. * Telephone Encounter - Noemi Pham MD - 03/09/2023 1:37 PM EDT She can continue on the plaquenil bid, eye exam reviewed, no toxicity noted. Noemi Pham MD documented in this encounterGuernsey Memorial Hospital07-10-2023 Miscellaneous Notes* Telephone Encounter - Brianda Palomares [...] and mail to her. documented in this encounterGuernsey Memorial Hospital07-05-2023 Miscellaneous Notes* Telephone Encounter - Brianda Palomares LPN - 01/26/2023 1:53 PM EDT Mailed LEVY label to patient per Dr. Pham's request * Telephone Encounter - Noemi Pham MD - 01/26/2023 1:45 PM EDT Please mail her lab order for LEVY panel. Noemi Pham MD documented in this encounterGuernsey Memorial Hospital06-23-2023 NoteHNO ID: [id number] Author: Noemi Pham MD Service: ? Author [...] F/U: 6m Check following: -none Noemi Pham [facility]06-21-2023 Miscellaneous Notes* Telephone Encounter - Noemi [...] 365 Days Visit Type Date Time Department [facility] 01/14/2023 11:00 AM [facility] Last Ophthalmology Check for Plaquenil [...] Instance) Lab Orders None documented in this encounterGuernsey Memorial Hospital06-02-2023 NoteHNO ID: [id number] Author: Liz Connolly MD Service: ? Author Type: Physician Type: Progress Notes Filed: 01/04/2023 10:43 AM Note Text: [facility] Note- Established patient Provider: Liz Connolly MD [...] that she has been following with her director orange with every 6 monthly appointments to monitor [...] There is also been weight gain since [facility] (going from 223 pounds to about [...] neck, respiratory, cardiovascular, GI, (more content not included)...[facility] 12-24-2022 NoteHNO ID: [id number] Author: Alejo Marshall MD Service: ? Author [...] Care Visit completed when applicable. Megan Marshall [facility]06-02-2023 History of Present illness Narrative* Alejo [...] of Care Visit completed when applicable. Megan Marshlal MD documented in this encounterGuernsey Memorial Hospital05-10-2023 Miscellaneous Notes* Telephone Encounter - Inocencia Burgerclif PRADO - 12/01/2022 3:25 PM EDT Prior authorization for Enbrel initiated on Cover My Meds. Pending. documented in this encounterGuernsey Memorial Hospital05-02-2023 Miscellaneous Notes* Telephone Encounter - Brianna Murray RN - 11/23/2022 9:22 AM EDT Patient has appointment with Dr. Connolly on 12/24/22 and is asking if any tests should be done prior her appointment. Patient was referred by Dr. Pham ( [facility] Patient c/o of increased muscle weakness. Last [...] units/L Brianna Murray RN documented in this encounterGuernsey Memorial Hospital04-24-2023 Miscellaneous Notes* Telephone Encounter - Noemi Pham MD - 11/15/2022 1:22 PM EDT Please tell her I received labs from [facility] and her cpk and aldolase returned normal . (CPK was 11 and aldolase 5.0 Noemi Pham MD documented in this encounterGuernsey Memorial Hospital04-05-2023 Miscellaneous Notes* Telephone Encounter - Inocencia Bui LPN - 10/27/2022 9:44 AM EDT Please advise. documented in this encounterGuernsey Memorial Hospital03-13-2023 Miscellaneous Notes* Telephone Encounter - Noemi Pham [...] refills. * Telephone Encounter - Brianda Palomares, ACOUSTIC WARFARE ANALYST - 10/04/2022 10:41 AM EDT Most recent [...] 365 Days Visit Type Date Time Department [facility] 02/16/2023 11:20 AM [facility] Last Ophthalmology Check for Plaquenil [...] Instance) Lab Orders None documented in this encounterGuernsey Memorial Hospital02-15-2023 [facility] Gastroenterology Follow-Up Patient Visit CHIEF COMPLAINT Chief Complaint Patient presents with Follow-up Diarrhea HISTORY OF PRESENT ILLNESS: Lynette Hairston is a 47 y.o. female established patient. Summary of old records: Per HPI from 05/26/22 Lynette Hairston is a 46 y.o. female with PMH of gastroparesis, fatty liver, migraine headache, RA (follows with rheumatology in [place]), anxiety, POTS and IBS. She was last [...] injection, 1 ml, Dis (more content not included)...[facility]01-18-2023 NoteHNO ID: [id number] Author: Jud Hess LPN Service: ? Author Type: ? Type: Progress Notes Filed: 08/11/2022 11:22 AM Note Text: Patient given Depomedrol 80 mg IM in the left upper quadrant gluteus. Patient tolerated injection well. Lot#: [id number] Exp date: 03/23/2024 Jud Hess LPOhio[facility]01-18-2023 NoteHNO ID: [id number] Author: Inocencia Bui LPN Service: ? Author Type: ? Type: Progress Notes Filed: 08/11/2022 10:21 AM Note Text: Methylprednisolone injection verified. 80mg.[facility]01-18-2023 NoteHNO ID: [id number] Author: Noemi Pham MD Service: ? Author [...] F/U: 6m Check following: -none Noemi Pham, [facility]01-18-2023 History of Present illness Narrative* Jud Rosa PRADO - 08/11/2022 11:21 AM EST Patient given Depomedrol 80 mg IM in the left upper quadrant gluteus. Patient tolerated injection well. Lot#: [id number] Exp date: 03/23/2024 Jud Hess LPN * Inocencia uBi LPN - 08/11/2022 10:07 AM EST Methylprednisolone [...] -none Noemi Pham MD documented in this encounterGuernsey Memorial Hospital11-21-2022 Miscellaneous Notes* Telephone Encounter - Inocencia Bui LPN - 06/14/2022 3:35 PM EST Mohsen Prince Felder: [id number] - [place] - Rx #: [id number] help? Call us at Outcome Approvedon June 11 CaseId:[id number];Status:Approved;Review Type:Prior Auth;Coverage Start Date:05/12/2022;Coverage End Date:06/11/2023; * Telephone Encounter - Jud Hess LPN - 06/11/2022 11:22 AM EST PA for Enbrel submitted via Cover My Meds this date. If approved new Rx will need sent to [facility]. * Telephone Encounter - Diana Stanley - 06/04/2022 9:59 AM EST Lynette Prince called today. : 1975 Allergies: Meloxicam and Methotrexate (home) [phone] (cell) Reason for call: patient states she spoke with [facility] requesting additional info for medication For ENBREL Please advise Patient last appointment: 05/29/2022 The patients preferred pharmacy has been captured for this encounter? yes RHODA STARR documented in this encounterGuernsey Memorial Hospital11-10-2022 Miscellaneous Notes* Telephone Encounter - Inocencia Bui LPN - 06/03/2022 9:36 AM EST Follow up message from 05/17/22 encounter and orders. documented in this encounterGuernsey Memorial Hospital11-07-2022 Miscellaneous Notes* Telephone Encounter - Linnea Sanders [...] Days Visit Type Date Time Department [facility] 10/20/2022 9:40 AM [facility] CBC: None on file in [...] Instance) Lab Orders None documented in this encounterGuernsey Memorial Hospital11-02-2022 [facility] Gastroenterology Follow-Up Patient Visit CHIEF COMPLAINT Chief Complaint Patient presents with Diarrhea Follow-up Patient states she has randomly lost control of her bowels in the recent weeks. HISTORY OF PRESENT ILLNESS: Lynette Hairston is a 46 y.o. female with PMH of gastroparesis, fatty liver, migraine headache, RA (follows with rheumatology in [place]), anxiety, POTS and IBS. She was last [...] afternoon, and at bed (more content not included)...[facility]10-24-2022 Miscellaneous Notes* Telephone Encounter - Jud [...] : 1975 Allergies: Meloxicam and Methotrexate (home) [phone] (cell) Reason for call: Patient called asking [...] not asked Glory Mason documented in this encounterGuernsey Memorial Hospital06-07-2022 Miscellaneous Notes* Telephone Encounter - Jud Hess LPN - 12/29/2021 2:47 PM EDT CHELSEY for Enbrel submitted via Cover My Meds. Felder: [id number] Pend for determination * Telephone Encounter - [...] message on voicemail) ' documented in this encounterGuernsey Memorial Hospital04-06-2022 Miscellaneous Notes* Telephone Encounter - Jud Hess LPN - 10/28/2021 12:13 PM EDT Rx placed in outgoing mail this date. Patient notified via [email or web address]. * Telephone Encounter - Noemi Pham MD - 10/28/2021 11:59 AM EDT rx for handicapped written, please mail to patient. Noemi Pham MD documented in this encounterGuernsey Memorial HospitalEvalubeebe healthcare note* Diagnosis Neuropathic pain- Primary Neuralgia, neuritis, and radiculitis, unspecified documented in this encounter [facility] [employer] Work Phone: evaluation note* Diagnosis Fibromyalgia- Primary Mylagia and myositis, unspecified documented in this encounter [facility] HospitalEvalubeebe healthcare noteNo assessment information availableRegency Hospital Cleveland West Work Phone: Evaluation note* Diagnosis Rheumatoid arthritis involving multiple sites, unspecified whether rheumatoid factor present (HCC)- Primary documented in this encounter [facility]* Diagnosis Myalgia- Primary Mylagia and myositis, unspecified documented in this encounter [facility] note* Diagnosis Fatigue, unspecified type- Primary Elevated aldolase level Other nonspecific abnormal serum enzyme levels Generalized weakness Other malaise and fatigue documented in this encounter [facility] note* Diagnosis Fatigue, unspecified type Elevated aldolase level Other nonspecific abnormal serum enzyme levels Generalized weakness Other malaise and fatigue documented in this encounter [facility] note* Diagnosis Rheumatoid arthritis involving multiple sites, unspecified whether rheumatoid factor present (HCC)- Primary documented in this encounter [facility] note* Diagnosis Pain in joint, multiple sites- Primary Trochanteric bursitis of both hips Enthesopathy of hip region documented in this encounter [facility] note* Diagnosis Pain in joint, multiple sites documented in this encounter [facility] noteNo InformationNort R[employer]Media Other Evaluation note* Diagnosis Status migrainosus- Primary Variants of migraine, not elsewhere classified, without mention of intractable migraine without mention of status migrainosus Migraine without aura and without status migrainosus, not intractable Cervicalgia Fibromyalgia Unspecified myalgia and myositis Paresthesias Disturbance of skin sensation Trapezius muscle spasm Vertigo Dizziness and giddiness documented in this encounter [facility]* Diagnosis Primary hypertension- Primary Unspecified essential hypertension Coronary artery vasospasm ([facility]) Prinzmetal angina Intermittent palpitations Obstructive sleep apnea Obstructive sleep apnea (adult) (pediatric) documented in this encounter [facility] note* Diagnosis Chronic bilateral low back pain without sciatica- Primary documented in this encounter [facility] note* Diagnosis Spinal stenosis of lumbar region with neurogenic claudication- Primary Spinal stenosis, lumbar region, with neurogenic claudication documented in this encounter [facility] general Narrative - Reported* Type Description Date Medical History rheumatoid arthritis Medical History anxiety Medical History chronic depression Medical History coronary artery disease Surgical History heart catheterization Surgical History gall bladder removed Surgical History tonsillectomy and adenoidectomy Surgical History HYSTERECTOMY Surgical History appendectomy Hospitalization History surgeries [facility] Other Hospital Discharge instructions* Instructions* Garfield Restrepo [...] a follow up appointment THANK YOU!!! From [facility] On behalf of the Emergency Department staff at [facility], I would like to thank you for giving us the opportunity to address your health care needs and concerns. We hope that during your visit, our service was delivered in a professional and caring manner. Please keep [facility] in mind as we walk with [...] how we did during your visit at [email or web address] and let us know about your experience * Attachments The following attachments cannot be sent through Care Everywhere. * Neuropathic Pain (Japanese) documented in this encounterWeDidIt Work Phone: InstructionsNot on filedocumented in this encounter [employer] SystemInstructionsNot on filedocumented in this encounter [employer] SystemInstructionsNot on filedocumented in this encounter ProMInvoiceable SystemInstructionsNot on filedocumented in this encounter [facility] CenterInvoiceable SystemReason for referral (narrative)* Outpatient Procedure (Routine) - Pending Review Specialty Diagnoses / Procedures Referred By Contac t Referred To Contact [facility] Diagnoses Fatigue, unspecified type Elevated aldolase level Generalized weakness Procedures EMG(NEURO/NI) NERVE CONDUCTION STUDIES 9-10 STUDIES Liz Connolly MD [address] [id number] [facility] [address] [place] [address] Referral ID Status Reason Start Date Expiration Date Visits Requested Visits Authorized [id number] Pending Review Auto-Generat ed Referral 11/23/2022 11/24/2023 1 1 [facility] for referral (narrative)* Diagnostic Procedure Only (Routine) - Closed Specialty Diagnoses / Procedures Referred By Contac t Referred To Contact XR IMAGING Diagnoses Pain in joint, multiple sites Procedures XR LUMBAR GENERAL 3V AP/LAT/L5-S1 RADEX SPINE LUMBOSACRAL 2/3 VIEWS Noemi Pham MD [address] [place] [address] Xr Imaging [address] [address] Referral ID Status Reason Start Date Expiration Date V isits Requested Visits Authorized [id number] Closed Auto-Generate d Referral 06/24/2023 07/23/2024 1 1 [facility] for referral (narrative)* Diagnostic Procedure Only (Routine) - Closed Specialty Diagnoses / Procedures Referred By Contac t Referred To Contact XR IMAGING Diagnoses Pain in joint, multiple sites Procedures XR LUMBAR GENERAL 3V AP/LAT/L5-S1 RADEX SPINE LUMBOSACRAL 2/3 VIEWS Noemi Pham MD [address] [facility] [place] [address] Xr Imaging [facility] Referral ID Status Reason Start Date Expiration Date V isits Requested Visits Authorized [id number] Closed Auto-Generate d Referral 06/24/2023 07/23/2024 1 1 [facility] for referral (narrative)* Consultation (Routine) - Pending Review Specialty Diagnoses / Procedures Referred By Contac t Referred To Contact Pulmonary Medicine Diagnoses Obstructive sleep apnea Michael Perkins MD [address] [place] [address] Olegario Joseph MD [address] [address] Referral ID Status Reason Start Date Expiration Date Visits Requested Visits Authorized [id number] Pending Review Specialty Services Required 09/02/2023 09/01/2024 1 1 [facility] for referral (narrative)* Diagnostic Procedure Only (Routine) - Pending Review Specialty Diagnoses / Procedures Referred By Contac t Referred To Contact XR IMAGING Diagnoses Chronic bilateral low back pain without sciatica Procedures XR LUMBAR GENERAL 3V AP/LAT/L5-S1 RADEX SPINE LUMBOSACRAL 2/3 VIEWS Noemi Pham MD [address] [id number] [place] [address] Referral ID Status Reason Start Date Expiration Date Visits Requested Visits Authorized [id number] Pending Review Auto-Generat ed Referral 09/19/2023 10/18/2024 1 1 [facility] for visit Narrative* Outpatient Procedure (Routine) - Closed Specialty Diagnoses / Procedures Referred By Contac t Referred To Contact [facility]OLOGICAL INSTITUTE Diagnoses Fatigue, unspecified type Elevated aldolase level Generalized weakness Procedures EMG(NEURO/NI) NERVE CONDUCTION STUDIES 9-10 STUDIES Liz Connolly MD [address] [place] [address] [facility] [address] [place] [address] Referral ID Status Reason Start Date Expiration Date V isits Requested Visits Authorized [id number] Closed Auto-Generate d Referral 11/23/2022 11/24/2023 1 1 [facility] Advance Directives No Advanced Directives Records FoundDocuments on File Type Date Recorded Patient Milk Powder Grinder Expl anation ACP-Advance Directive ACP-Power of Head Athletic Trainer/Strength Coach Documents on File Type Date Recorded Patient Milk Powder Grinder Expl anation Advance Directives and Living Will Power of Head Athletic Trainer/Strength Coach Documents on File Type Date Recorded Patient Milk Powder Grinder Expl anation ACP-Advance Directive ACP-Power of Head Athletic Trainer/Strength Coach Latest Code Status on File Code Status [...] Records Found Procedure Findings Note MR#: [id number] [facility] Pt. Name: Lynette Prince Surgery Date: 08/22/2019 Room #: Z0 Date of : 1975 PROCEDURE NOTE ATTENDING: Dina Zhou M.D. PROCEDURE PERFORMED: Esophagogastroduodenoscopy. SENIOR PRODUCT DEVELOPMENT ENGINEER: Zackary Narvaez M.D. ANESTHESIA USED: Conscious sedation [...] ice in a towel. Please call your bookseamer blindstitch tomorrow and your family physician tomorrow to schedule follow-up for 1to 2 days Return to the emergency room for worsening pain swelling numbness tingling or other emergent concerns * Attachments The following attachments cannot be sent through Care Everywhere. * Foot Sprain (Japanese) documented in this encounter Assessments Diagnosis Sprain [...] LUMBAR W/O CONTRAST MATERIAL Noemi Pham MD [address] [facility] [address] [place] [address] Mr Imaging [facility] Referral ID Status Reason Start Date Expiration Date Visits Requested Visits Authorized [id number] Pending Review Auto-Generat ed Referral 09/21/2023 10/20/2024 1 1 Additional Source Comments Reason for Visit (unrecogniz ed section and content) Status Reason Specialty Diagnoses / Procedures Referred By Contact Referred To Contact Authorized Physical Therapy Diagnoses Plantar fasciitis Procedures eval and treat Isael Yoder MD [address] [facility] [place] [address] Sander Jauregui, PT Reason Comments Foot Pain [...] Noemi Pham MD [address] [place] [address] [place] [address] Referral ID Status Reason Start Date Expiration Date V isits Requested Visits Authorized [id number] Closed Auto-Generate d Referral 06/24/2023 07/23/2024 1 1 Reason Onset Date Comments Headache 07/21/2023 Reason Comments Migraine Migraine cocktail Reason Onset Date Comments Appointment 09/01/2023 Reason Comments Follow-up Hypertension Reason Comments Pain Reason Comments Results X-ray results XR lum bar spine INFORMATION SOURCE (unrecogn ized section and content) DATE CREATED AUTHOR 08/14/2020 [facility] DATE CREATED AUTHOR AUTHOR'S ORGANIZ ATION 07/25/2021 [facility] DATE CREATED AUTHOR AUTHOR'S ORGANIZ ATION 09/20/2022 [facility] DATE CREATED AUTHOR AUTHOR'S ORGANIZ ATION 10/30/2022 [facility] DATE CREATED AUTHOR AUTHOR'S ORGANIZ ATION 03/25/2023 [facility] DATE CREATED AUTHOR AUTHOR'S ORGANIZ ATION 06/27/2023 [facility] DATE CREATED AUTHOR AUTHOR'S ORGANIZ ATION 06/27/2023 [facility] DATE CREATED AUTHOR AUTHOR'S ORGANIZ ATION 09/05/2023 [facility] DATE CREATED AUTHOR AUTHOR'S ORGANIZ ATION 09/30/2023 [facility] Ordered Prescriptions (unrec ognized section and [...] or prosecute any alcohol or drug abuse patient.[facility] HospitalIn the event this information is protected by the Federal Confidentiality of Alcohol and Drug Abuse Patient Records regulations: The Federal rules restrict any use of the information to criminally investigate or prosecute any alcohol or drug abuse patient.[facility] HospitalIn the event this information is protected by the Federal Confidentiality of Alcohol and Drug Abuse Patient Records regulations: The Federal rules restrict any use of the information to criminally investigate or prosecute any alcohol or drug abuse patient.[facility] HospitalIn the event this information is protected by the Federal Confidentiality of Alcohol and Drug Abuse Patient Records regulations: The Federal rules restrict any use of the information to criminally investigate or prosecute any alcohol or drug abuse patient.[facility] HospitalIn the event this information is protected by the Federal Confidentiality of Alcohol and Drug Abuse Patient Records regulations: The Federal rules restrict any use of the information to criminally investigate or prosecute any alcohol or drug abuse patient.[facility] HospitalIn the event this information is protected by the Federal Confidentiality of Alcohol and Drug Abuse Patient Records regulations: The Federal rules restrict any use of the information to criminally investigate or prosecute any alcohol or drug abuse patient.[facility] HospitalIn the event this information is protected by the Federal Confidentiality of Alcohol and Drug Abuse Patient Records regulations: The Federal rules restrict any use of the information to criminally investigate or prosecute any alcohol or drug abuse patient.[facility] HospitalIn the event this information is protected by the Federal Confidentiality of Alcohol and Drug Abuse Patient Records regulations: The Federal rules restrict any use of the information to criminally investigate or prosecute any alcohol or drug abuse patient.[facility] HospitalIn the event this information is protected by the Federal Confidentiality of Alcohol and Drug Abuse Patient Records regulations: The Federal rules restrict any use of the information to criminally investigate or prosecute any alcohol or drug abuse patient.[facility] HospitalIn the event this information is protected by the Federal Confidentiality of Alcohol and Drug Abuse Patient Records regulations: The Federal rules restrict any use of the information to criminally investigate or prosecute any alcohol or drug abuse patient.[facility] HospitalIn the event this information is protected by the Federal Confidentiality of Alcohol and Drug Abuse Patient Records regulations: The Federal rules restrict any use of the information to criminally investigate or prosecute any alcohol or drug abuse patient.[facility] HospitalIn the event this information is protected by the Federal Confidentiality of Alcohol and Drug Abuse Patient Records regulations: The Federal rules restrict any use of the information to criminally investigate or prosecute any alcohol or drug abuse patient.[facility] HospitalIn the event this information is protected by the Federal Confidentiality of Alcohol and Drug Abuse Patient Records regulations: The Federal rules restrict any use of the information to criminally investigate or prosecute any alcohol or drug abuse patient.[facility] HospitalIn the event this information is protected by the Federal Confidentiality of Alcohol and Drug Abuse Patient Records regulations: The Federal rules restrict any use of the information to criminally investigate or prosecute any alcohol or drug abuse patient.[facility] HospitalIn the event this information is protected by the Federal Confidentiality of Alcohol and Drug Abuse Patient Records regulations: The Federal rules restrict any use of the information to criminally investigate or prosecute any alcohol or drug abuse patient.[facility] HospitalIn the event this information is protected by the Federal Confidentiality of Alcohol and Drug Abuse Patient Records regulations: The Federal rules restrict any use of the information to criminally investigate or prosecute any alcohol or drug abuse patient.[facility] HospitalIn the event this information is protected by the Federal Confidentiality of Alcohol and Drug Abuse Patient Records regulations: The Federal rules restrict any use of the information to criminally investigate or prosecute any alcohol or drug abuse patient.[facility] HospitalIn the event this information is protected by the Federal Confidentiality of Alcohol and Drug Abuse Patient Records regulations: The Federal rules restrict any use of the information to criminally investigate or prosecute any alcohol or drug abuse patient.[facility] HospitalIn the event this information is protected by the Federal Confidentiality of Alcohol and Drug Abuse Patient Records regulations: The Federal rules restrict any use of the information to criminally investigate or prosecute any alcohol or drug abuse patient.[facility] HospitalIn the event this information is protected by the Federal Confidentiality of Alcohol and Drug Abuse Patient Records regulations: The Federal rules restrict any use of the information to criminally investigate or prosecute any alcohol or drug abuse patient.[facility] HospitalIn the event this information is protected by the Federal Confidentiality of Alcohol and Drug Abuse Patient Records regulations: The Federal rules restrict any use of the information to criminally investigate or prosecute any alcohol or drug abuse patient.[facility] HospitalIn the event this information is protected by the Federal Confidentiality of Alcohol and Drug Abuse Patient Records regulations: The Federal rules restrict any use of the information to criminally investigate or prosecute any alcohol or drug abuse patient.[facility] HospitalIn the event this information is protected by the Federal Confidentiality of Alcohol and Drug Abuse Patient Records regulations: The Federal rules restrict any use of the information to criminally investigate or prosecute any alcohol or drug abuse patient.[facility] HospitalIn the event this information is protected by the Federal Confidentiality of Alcohol and Drug Abuse Patient Records regulations: The Federal rules restrict any use of the information to criminally investigate or prosecute any alcohol or drug abuse patient.[facility] HospitalIn the event this information is protected by the Federal Confidentiality of Alcohol and Drug Abuse Patient Records regulations: The Federal rules restrict any use of the information to criminally investigate or prosecute any alcohol or drug abuse patient.[facility] HospitalIn the event this information is protected by the Federal Confidentiality of Alcohol and Drug Abuse Patient Records regulations: The Federal rules restrict any use of the information to criminally investigate or prosecute any alcohol or drug abuse patient.[facility] HospitalIn the event this information is protected by the Federal Confidentiality of Alcohol and Drug Abuse Patient Records regulations: The Federal rules restrict any use of the information to criminally investigate or prosecute any alcohol or drug abuse patient.[facility] HospitalIn the event this information is protected by the Federal Confidentiality of Alcohol and Drug Abuse Patient Records regulations: The Federal rules restrict any use of the information to criminally investigate or prosecute any alcohol or drug abuse patient.[facility] Care Teams (unrecognized sec tion and content) Canteen Operator Relationship Specialty Start Date End Date Toy Obrien MD PCP - General Family Practice 07/05/16 Canteen Operator Relationship Specialty Start Date End Date Toy Obrien MD PCP - General Family Practice 07/05/16 Canteen Operator Relationship Specialty Start Date End Date Toy Obrien MD PCP - General Family Medicine 07/05/16 Canteen Operator Relationship Specialty Start Date End Date Toy Obrien MD PCP - General Family Medicine 07/05/16 Canteen Operator Relationship Specialty Start Date End Date Toy Obrien MD PCP - General Family Medicine 07/05/16 Team Status: Inactive Member Role Status Dates CLEMENTINA DegrootC Attending Provider Active Canteen Operator Relationship Specialty Start Date End Date Toy Obrien MD PCP - General Family Medicine 07/05/16 Canteen Operator Relationship Specialty Start Date End Date Toy Obrien MD PCP - General Family Medicine 07/05/16 Canteen Operator Relationship Specialty Start Date End Date Toy Obrien MD PCP - General Family Medicine 07/05/16 Canteen Operator Relationship Specialty Start Date End Date Toy Obrien MD PCP - General Family Medicine 07/05/16 Canteen Operator Relationship Specialty Start Date End Date Toy Obrien MD PCP - General Family Medicine 07/05/16 Canteen Operator Relationship Specialty Start Date End Date Toy Obrien MD PCP - General Family Medicine 07/05/16 Canteen Operator Relationship Specialty Start Date End Date Toy Obrien MD PCP - General Family Medicine 07/05/16 Canteen Operator Relationship Specialty Start Date End Date Toy Obrien MD PCP - General Family Medicine 07/05/16 Canteen Operator Relationship Specialty Start Date End Date Toy Obrien MD PCP - General Family Medicine 07/05/16 Canteen Operator Relationship Specialty Start Date End Date Toy Obrien MD PCP - General Family Medicine 07/05/16 Canteen Operator Relationship Specialty Start Date End Date Toy Obrien MD PCP - General Family Medicine 07/05/16 Canteen Operator Relationship Specialty Start Date End Date Obrien, Toy P, MD [facility] [place] [phone] PCP - General Family Medicine 09/06/22 Canteen Operator Relationship Specialty Start Date End Date Toy Obrien MD [facility] [place] [phone] PCP - General Family Medicine 09/06/22 Canteen Operator Relationship Specialty Start Date End Date Toy Obrien MD [facility] [place] [phone] PCP - General Family Medicine 09/06/22 Canteen Operator Relationship Specialty Start Date End Date Toy Obrien MD [facility] [place] [phone] PCP - General Family Medicine 09/06/22 Canteen Operator Relationship Specialty Start Date End Date Toy Obrien MD [facility] [place] [phone] PCP - General Family Medicine 09/06/22 Canteen Operator Relationship Specialty Start Date End Date Toy Obrien MD PCP - General Family Medicine 07/05/16 Canteen Operator Relationship Specialty Start Date End Date Toy Obrien MD PCP - General Family Medicine 07/05/16 Canteen Operator Relationship Specialty Start Date End Date Toy Obrien MD PCP - General Family Medicine 07/05/16 Canteen Operator Relationship Specialty Start Date End Date [...] BE BASED ON THE PRIMARY CLINICAL RECORDS. [employer] provides no warranty or guarantee of the accuracy or completeness of information in this document.
== END 2023-10-07 08:24 | disposition home or self-care (01) ==
LOC: MAMMO 08:24
DX: R94.4 Abnormal results of kidney function studies (principal); Z12.31 Encounter for screening mammogram for malignant neoplasm of breast
CPT/HCPCS: 36415; 77063; 77067; 80051; 82565; 84520

== ENCOUNTER 2023-10-27 12:29 | Outpatient (OUT) | payer OTHER, SELFPAY ==
--- OUTSIDE RECORDS SUMMARY | 2023-10-27 12:39 | XMS_ITS | CCD ---
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 Name Role Phone Toy Obrien Primary Care Provider TOY OBRIEN Primary Care Unavailable GARFIELD RESTREPO Attending Unavailable TOY OBRINE Primary Care Unavailable GARFIELD RESTREPO Attending Unavailable BLANCA DAWN Referring Unavailable TOY OBRIEN Primary Care Unavailable BLANCA DAWN Referring Unavailable TOY OBRIEN Primary Care Unavailable Toy Obrien MD Primary Care Provider Toy Obrien MD Primary Care Provider ZOEY Monson Attending Provider [phone] Toy Obrien MD Primary Care Provider Jud Monson Admitting Unavailable Jud Monson Attending Unavailable NON STAFF Primary Care Unavailable LAYCRISTHIAN Attending Unavailable LAY CRISTHIAN Attending Unavailable TOY OBRIEN Primary Care Unavailable JACOBR, LACHELLE Natty Referring Unavailable TERRY SHEFFIELD Referring Unavailabl e TOY OBRIEN Primary Care Unavailable PANGULUR, LACHELLE N Admitting Unavailable JACOBR, LACHELLE N Attending Unavailable TOY OBRIEN Primary Care Unavailable Jud Monson Unavailable TOY OBRIEN Primary Care Unavailable NOEMI PHAM Referring Unavailable NOEMI PHAM Referring Unavailable TOY OBRIEN Primary Care Unavailable TOY OBRIEN Primary Care Unavailable NOEMI PHMA Referring Unavailable TOY OBRIEN Primary Care Unavailable NOEMI PHAM Referring Unavailable NOEMI PHAM Attending Unavailable TOY OBRIEN Primary Care Unavailable TOY OBRIEN Primary Care Unavailable NOEMI PHAM Attending Unavailable TOY OBRIEN Primary Care Unavailable NOEMI PHAM Attending Unavailable TOY OBRIEN Primary Care Unavailable LIZ CONNOLLY Attending Unavailable LIZ CONNOLLY Referring Unavailable TOY OBRIEN Primary Care Unavailable Beba Richye Unavailable Toy Obrien MD Primary Care Provider Betty Moreau Unavailable TOY OBRIEN Primary Care Unavailable NASEEM LOUISE Attending Unavailable NASEEM LOUISE Attending Unavailable NASEEM LOUISE Referring Unavailable TOY OBRIEN Primary Care Unavailable TOY OBRIEN Referring Unavailable TOY OBRIEN Primary Care Unavailable DALLAS MEREDITH Referring Unavailable TOY OBRIEN Primary Care Unavailable CODY HUTCHINS Attending Unavailable JOSÉ, TOY Gimenez Referring Unavailable TOY OBRIEN Primary Care Unavailable DALLAS MEREDITH Attending Unavailable TOY OBRIEN Referring Unavailable TOY OBRIEN Primary Care Unavailable DALLAS MEREDITH Referring Unavailable TOY OBRIEN Primary Care Unavailable DALLAS MEREDITH Referring Unavailable TOY OBRIEN Primary Care Unavailable MICHAEL PERKINS Attending Unavailable TOY OBRIEN Referring Unavailable TOY OBRIEN Primary Care Unavailable Allergies Allergy Classification Reported Allergen(s) Allergy Type Date of Onset Reaction(s) Facility NSAIDs (1 source) meloxicam Drug Allergy 7 [facility] (20 sources) meloxicam; Translations: [MELOXICAM] Drug Allergy 7 [place], [place] (20 sources) Methotrexate; Translations: [METHOTREXATE] Drug Allergy 5 GI Upset, [facility] (12 sources) Isosorbide; Translations: [ISOSORBIDE MONONITRATE] Drug Allergy 2 Headache, Vomiting [facility] (3 sources) Isosorbide Dinitrate Drug Allergy Unknown [employer] Other Medications Current Medications Medication Drug Class(es) Dates Sig (Normalized) Sig (Original) amLODIPine 2.5 mg oral tablet (12 sources) Dihydropyridine Calcium Channel Salvador Start: 10-29-2022 [...] aspirin 81 mg delayed release oral tablet (12 sources) Platelet Aggregation Inhibitor, Nonsteroidal Anti-inflammatory Drug [...] once daily. nitroglycerin 0.4 mg sublingual tablet (9 sources) Nitrate Vasodilator Start: 09-14-19 nitroglycerin (NITROSTAT) [...] tablet rosuvastatin calcium 20 mg oral tablet (10 sources) HMG-CoA Reductase Inhibitor Start: 4 take [...] once daily. SUMAtriptan 100 mg oral tablet (10 sources) Serotonin-1b and Serotonin-1d Receptor Agonist Start: 03-10-2023 End: 08-04-2024 SUMAtriptan (IMITREX) 100 mg tablet Take 1 tablet (100 mg total) by mouth once as needed for migraine. May repeat in 2 hours if unresolved. Do not exceed 200 mg in 24 hours. 9 tablet 11 08/05/2023 08/04/2024 Active tiZANidine 4 mg oral tablet (10 sources) Central alpha-2 Adrenergic Agonist Start: 03-10-2023 End: 08-05-2023 take 1 tablet by mouth once daily tiZANidine (ZANAFLEX) 4 mg tablet Take 1-2 tablets (4-8 mg total) by mouth nightly. 60 tablet 2 08/05/2023 Active zonisamide 100 mg oral capsule (13 sources) Anti-epileptic Agent Start: 06-20-2023 End: 08-05-2023 [...] bid prn TAKE 1/2 TABLET BY M OUT TWICE A DAY NEEDED 1 ml methylPREDNISolone [...] tablet (3 sources) Anti-anginal Start: 09-14-2022 End: 01-12-2024 take 1 tablet by mouth every twelve [...] Date Documented Da te Episodic/Chronic Anxiety disorders (9 sources) Anxiety; Translations: [Anxiety disorder, unspecified] Onset: 12-14-2017 08-07-2020 Chronic Asthma (9 sources) Asthma without status asthmaticus; Translations: [Unspecified asthma, uncomplicated] Onset: 09-26-2019 09-26-2019 Chronic Cardiac dysrhythmias (9 sources) Postural orthostatic tachycardia syndrome ; Translations: [Postural orthostatic tachycardia syndrome] Onset: 09-26-2019 09-07-2022 Chronic Coronary atherosclerosis and other heart disease (11 sources) Coronary artery spasm; Translations: [Angina pectoris with documented spasm] Onset: 10-14-2021 09-07-2022 Chronic Disorders of lipid metabolism (9 sources) Hypercholesterolemia; Translations: [Pure hypercholesterolemia, unspecified] Onset: 09-26-2019 09-26-2019 Chronic Endometriosis (9 sources) Endometriosis (clinical); Translations: [Endometriosis, unspecified] Onset: 09-26-2019 09-26-2019 Chronic Esophageal disorders (11 sources) Gastro-esophageal reflux disease without esophagitis; Translations: [Gastroesophageal reflux disease] Onset: 09-26-2019 Chronic Essential hypertension (12 sources) Hypertensive disorder; Translations: [Essential (primary) hypertension] Onset: 09-22-2021 09-07-2022 Chronic Genitourinary symptoms and ill-defined conditions (9 sources) Incontinence without sensory awareness; Translations: [Incontinence without sensory awareness] Onset: 09-26-2019 09-26-2019 Chronic Headache; including migraine (20 sources) Refractory migraine variants; Translations: [Migraine with aura, intractable, without status migrainosus] Onset: 09-26-2019 03-25-2021 Chronic Heart valve disorders (18 sources) Mitral valve regurgitation; Translations: [Nonrheumatic mitral (valve) insufficiency] Onset: 07-10-2010 Resolved: 07-23-2021 09-14-2022 Chronic Nutritional deficiencies (20 sources) Vitamin D deficiency; Translations: [Vitamin D deficiency, unspecified] Onset: 11-05-2018 11-05-2018 Chronic Other aftercare (2 sources) Taking high risk medication; Translations: [Other 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 plant operator (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) drug therapy] 10-14-2023 Episodic Other aftercare (1 source) Other 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 plant operator (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) 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 therapy; Translations: [Other 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 plant operator (current) drug therapy] Onset: 10-13-2023 Episodic Other connective tissue disease (1 source) Neuropathic pain; Translations: [Neuralgia and neuritis, unspecified] Episodic Other connective tissue disease (1 source) Lateral epicondylitis, right elbow Episodic Other connective tissue disease (1 source) Bilateral trochanteric bursitis; Translations: [Trochanteric bursitis, right hip] 06-24-2023 Episodic Other connective tissue disease (1 source) H/O: rheumatoid arthritis; Translations: [Personal history of other diseases of the musculoskeletal system and connective tissue] 10-14-2023 Episodic Other connective tissue disease (1 source) Personal history of other diseases of the musculoskeletal system and connective tissue; Translations: [Personal history of other diseases of the musculoskeletal system and connective tissue] Onset: 10-14-2023 Episodic Other endocrine disorders (9 sources) Polycystic ovary; Translations: [Polycystic ovarian syndrome] Onset: 09-26-2019 09-26-2019 Chronic Other eye disorders (1 source) Posterior vitreous detachment of right eye; Translations: [Vitreous degeneration, right eye] 10-14-2023 Chronic Other eye disorders (1 source) Vitreous syneresis; Translations: [Other vitreous opacities, bilateral] 10-14-2023 Chronic Other eye disorders (1 source) Vitreous degeneration, right eye; Translations: [Vitreous degeneration, right eye] Onset: 10-14-2023 Chronic Other eye disorders (1 source) Other vitreous opacities, bilateral; Translations: [Other vitreous opacities, bilateral] Onset: 10-14-2023 Chronic Other gastrointestinal disorders (1 source) Intestinal [...] Onset: 09-27-2023 Episodic Other nervous system disorders (9 sources) Chronic pain; Translations: [Other chronic pain] [...] Chronic Other nutritional; endocrine; and metabolic disorders (9 sources) Insulin resistance; Translations: [Insulin resistance] Onset: 09-26-2019 09-26-2019 Chronic Other nutritional; endocrine; and metabolic disorders (9 sources) Metabolic syndrome X; Translations: [Metabolic syndrome X] Onset: 12-06-2012 06-24-2021 Chronic Other nutritional; endocrine; and metabolic disorders (9 sources) Body mass index 30+ - obesity; [...] Onset: 02-12-2020 03-25-2021 Chronic Residual codes; unclassified (9 sources) Periodic limb movement disorder; Translations: [Periodic limb movement disorder] Onset: 09-26-2019 09-26-2019 Chronic Residual codes; unclassified (1 source) Obstructive sleep apnea (adult) (pediatric); Translations: [Obstructive sleep apnea (adult) (pediatric)] Onset: 09-02-2023 Chronic Retinal detachments; defects; vascular occlusion; and retinopathy (8 sources) Bilateral bullous retinoschisis; Translations: [Other retinoschisis and retinal cysts, bilateral] Onset: 10-14-2023 10-14-2023 Chronic Rheumatoid arthritis and related disease (12 sources) Rheumatoid arthritis of multiple joints; Translations: [Rheumatoid arthritis, unspecified] Onset: 09-26-2019 Chronic Systemic lupus erythematosus and connective tissue disorders (9 sources) Autoimmune disease; 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, unspecified] Onset: 09-26-2019 09-26-2019 Chronic Thyroid disorders (9 sources) Acquired hypothyroidism; Translations: [Hypothyroidism, unspecified] Onset: 10-23-2015 08-21-2021 Chronic Unclassified (1 source) Sprain of left foot; Translations: [Sprain of left foot, initial encounter] Unclassified (1 source) Pain in right elbow; Translations: [Pain in right elbow] Onset: 07-30-2022 Unclassified (1 source) Weakness - Generalized Onset: 09-27-2023 Unclassified (1 source) Shortness of Breath; Heart Palpitations; Weakness Onset: 09-27-2023 Unclassified (1 source) Retinoschisis, bullous, bilateral Onset: 10-14-2023 Unclassified (1 source) Procedure Onset: 10-13-2023 Urinary tract infections (1 source) Acute cystitis without hematuria; Translations: [Acute cystitis without hematuria] Onset: 09-27-2023 Episodic Past or Other Problems Problem Classification Problem Date Documented Da te Episodic/Chronic Abdominal pain (5 sources) Abdominal pain; Translations: [Unspecified abdominal pain] Onset: 3 03-28-2013 Episodic Blindness and vision defects (20 sources) Diplopia; Translations: [Diplopia] Onset: 9 11-05-2018 Episodic Cancer of cervix (9 sources) Cervicovaginal cytology: Low grade squamous intraepithelial lesion; Translations: [Low grade squamous intraepithelial lesion on cytologic smear of cervix (LGSIL)] Onset: 0 09-26-2019 Episodic Cardiac dysrhythmias (11 sources) Intermittent palpitations; Translations: [Palpitations] Onset: 8 08-21-2021 Episodic Coma; stupor; and brain damage (20 sources) Daytime somnolence; Translations: [Somnolence] Onset: 9 11-05-2018 Episodic Conditions associated with dizziness or vertigo (20 sources) Vertigo; Translations: [Dizziness and giddiness] Onset: 0 09-26-2019 Episodic Gastrointestinal hemorrhage (9 sources) Blood-tinged feces; Translations: [Melena] Onset: 5 06-24-2021 Episodic Malaise and fatigue (20 sources) Fatigue; Translations: [Other fatigue] Onset: 9 11-05-2018 Episodic Mood disorders (9 sources) Mood disorders Onset: 3 09-06-2022 Nonspecific chest pain (18 sources) Chest pain; Translations: [Chest pain, unspecified] Onset: 6 09-22-2021 Episodic Other connective tissue disease (11 sources) Fibromyalgia; Translations: [Fibromyalgia] Onset: 0 Episodic Other connective tissue disease (20 sources) Muscle pain; Translations: [Myalgia, unspecified site] Onset: 9 11-05-2018 Episodic Other connective tissue disease (20 sources) Myofascial pain syndrome; Translations: [Myalgia, other site] Onset: 1 03-25-2021 Episodic Other connective tissue disease (10 sources) Muscle spasm of cervical muscle of neck; Translations: [Other muscle spasm] Onset: 0 09-26-2019 Episodic Other connective tissue disease (1 source) Fibromyalgia; Translations: [Fibromyalgia] Onset: 0 Episodic Other connective tissue disease (1 source) Other muscle spasm; Translations: [Other muscle spasm] Onset: 0 Episodic Other disorders of stomach and duodenum (9 sources) Gastroparesis syndrome; Translations: [Gastroparesis] Onset: 0 [...] Onset: 3 Episodic Other lower respiratory disease (9 sources) Dyspnea on exertion; Translations: [Shortness of breath] Onset: 5 08-21-2021 Episodic Other nervous system disorders (20 sources) Muscle fasciculation; Translations: [Fasciculation] Onset: 9 11-05-2018 Episodic Other nervous system disorders (20 sources) Muscle twitch; Translations: [Fasciculation] Onset: 1 03-25-2021 Episodic Other nervous system disorders (10 sources) Paresthesia; Translations: [Paresthesia of skin] Onset: [...] conditions (not mental disorders or infectious disease) (18 sources) Electrocardiogram abnormal; Translations: [Abnormal electrocardiogram [ECG] [...] Spondylosis; intervertebral disc disorders; other back problems (20 sources) Neck pain; Translations: [Cervicalgia] Onset: 0 09-26-2019 Episodic Sprains and strains (9 sources) Strain of flexor muscle of hip; Translations: [Strain of muscle, fascia and tendon of unspecified hip, initial encounter] Onset: 3 06-24-2021 Episodic Syncope (9 sources) Syncope and collapse; Translations: [Syncope and collapse] Onset: 4 Resolved: 8 04-26-2018 Episodic Unclassified (9 sources) Onset: 8 12-21-2017 Results Test Name Value Interpretation Reference Range Facil ity No Panel Informationon 10-13 [facility] CBC AND AUTO DIFFon 09-27-19 ABSOLUTE BASOPHIL 0.1 X10E9/L Normal 0.0-0.2 [facility] Comment on above: Performed By: #### C BCA, CMP, 25053-7, 08496-0 #### [facility] ([id number]) [address] [place] [address] ABSOLUTE NEUTROPHIL 6.1 X10E9/L Normal 1.5-6.6 [facility] Comment on above: Performed By: #### C BCA, CMP, 68881-7, 55524-5 #### [facility] ([id number]) [address] [place] [address] Basophils/100 WBC (Bld) 0.9 % Normal [facility] Comment on above: Performed By: #### C BCA, CMP, 48855-1, 52705-7 #### [facility] ([id number]) [address] [facility] [place] [address] Eosinophils (Bld) [#/Vol] 0.2 10*3/uL Normal 0.0-0.4 [facility] Comment on above: Performed By: #### C BCA, CMP, 60985-1, 52077-4 #### [facility] ([id number]) [address] [facility] [place] [address] Eosinophils/100 WBC (Bld) 2.0 % Normal [facility] Comment on above: Performed By: #### C BCA, CMP, 50313-2, 42530-6 #### [facility] ([id number]) [address] [place] [address] Erythrocyte distribution width (RBC) [Ratio] 13.1 % Normal 11.5-15.0 [facility] Comment on above: Performed By: #### C BCA, CMP, 09364-8, 33390-4 #### [facility] ([id number]) [address] [place] [address] Hematocrit (Bld) [Volume fraction] 45.3 % Normal 35-47 [facility] Comment on above: Performed By: #### C BCA, CMP, 81729-1, 12152-9 #### [facility] ([id number]) [address] [place] [address] Hemoglobin (Bld) [Mass/Vol] 15.4 g/dL Normal 11.7-15.5 [facility] Comment on above: Performed By: #### C BCA, CMP, 28751-3, 76674-0 #### [facility] ([id number]) [address] [facility] [place] [address] Lymphocytes (Bld) [#/Vol] 2.4 10*3/uL Normal 1.0-3.5 [facility] Comment on above: Performed By: #### C BCA, CMP, 21550-1, 30354-3 #### [facility] ([id number]) [address] [facility] [place] [address] Lymphocytes/100 WBC (Bld) 25.2 % Normal [facility] Comment on above: Performed By: #### C BCA, CMP, 86945-4, 37167-3 #### [facility] ([id number]) [address] [facility] [place] [address] MCH (RBC) [Entitic mass] 31.8 pg Normal 27-34 [facility] Comment on above: Performed By: #### C BCA, CMP, 09568-2, 56391-1 #### [facility] ([id number]) [address] [facility] [place] [address] MCHC (RBC) [Mass/Vol] 33.9 g/dL Normal 32-36 [facility] Comment on above: Performed By: #### C BCA, CMP, 55336-7, 53292-6 #### [facility] ([id number]) [address] [facility] [place] [address] MCV (RBC) [Entitic vol] 94 fL Normal 80-100 [facility] Comment on above: Performed By: #### C BCA, CMP, 02660-5, 78207-3 #### [facility] ([id number]) [address] [facility] [place] [address] Monocytes (Bld) [#/Vol] 0.7 10*3/uL Normal 0-0.9 [facility] Comment on above: Performed By: #### C BCA, CMP, 18010-5, 57287-4 #### [facility] ([id number]) [address] [place] [address] Monocytes/100 WBC (Bld) 7.4 % Normal [facility] Comment on above: Performed By: #### C BCA, CMP, 46579-4, 83885-4 #### [facility] ([id number]) [address] [place] [address] Neutrophils/100 WBC (Bld) 64.5 % Normal [facility] Comment on above: Performed By: #### C BCA, CMP, 50602-2, 04158-7 #### [facility] ([id number]) [address] [place] [address] Platelet mean volume (Bld) [Entitic vol] 9.4 fL Normal 7-12 [facility] Comment on above: Performed By: #### C BCA, CMP, 55286-8, 46951-1 #### [facility] ([id number]) [address] [place] [address] Platelets (Bld) [#/Vol] 186 10*3/uL Normal 150-450 [facility] Comment on above: Performed By: #### C BCA, CMP, 48421-0, 13405-8 #### [facility] ([id number]) [address] [place] [address] RBC COUNT 4.83 X10E12/L Normal 3.80-5.20 [facility] Comment on above: Performed By: #### C BCA, CMP, 12762-3, 69525-6 #### [facility] ([id number]) [address] [place] [address] WBC (Bld) [#/Vol] 9.5 10*3/uL Normal 4.0-11.0 [facility] Comment on above: Performed By: #### C BCA, CMP, 02680-4, 96591-7 #### [facility] ([id number]) [address] [address] COMPREHENSIVE METABOLIC PANE Priyank 09-27-2023 Albumin [Mass/Vol] 4.2 g/dL Normal 3.2-5.3 [facility] Comment on above: Performed By: #### C BCA, CMP, 09210-9, 26443-7 #### [facility] ([id number]) [address] [place] [address] ALP [Catalytic activity/Vol] 37 U/L Low 39-130 [facility] Comment on above: Performed By: #### C BCA, CMP, 94713-2, 23729-2 #### [facility] ([id number]) [address] [place] [address] ALT [Catalytic activity/Vol] 50 U/L High 0-31 [facility] Comment on above: Performed By: #### C BCA, CMP, 27345-8, 30042-3 #### [facility] ([id number]) [address] [place] [address] Anion gap [Moles/Vol] 10 mmol/L Normal 5-15 [facility] Comment on above: Performed By: #### C BCA, CMP, 88243-0, 46995-7 #### [facility] ([id number]) [address] [place] [address] AST [Catalytic activity/Vol] 41 U/L Normal 0-41 [facility] Comment on above: Performed By: #### C BCA, CMP, 07769-0, 21997-6 #### [facility] ([id number]) [address] [place] [address] Bilirubin [Mass/Vol] 1.4 mg/dL High 0.3-1.2 [facility] Comment on above: Performed By: #### C BCA, CMP, 66534-9, 76973-9 #### [facility] ([id number]) [address] [place] [address] Calcium [Mass/Vol] 9.1 mg/dL Normal 8.5-10.5 [facility] Comment on above: Performed By: #### C BCA, CMP, 73548-0, 11462-6 #### [facility] ([id number]) [address] [place] [address] Chloride [Moles/Vol] 103 mmol/L Normal 98-109 [facility] Comment on above: Performed By: #### C BARB SARABIA, 58519-1, 00685-7 #### [facility] ([id number]) [address] [place] [address] CO2 [Moles/Vol] 23 mmol/L Normal 22-32 [facility] Comment on above: Performed By: #### C BARB SARABIA, 08152-1, 85684-4 #### [facility] ([id number]) [address] [place] [address] Creatinine [Mass/Vol] 0.99 mg/dL Normal 0.40-1.00 [facility] Comment on above: Result Comment: METH OD TRACEABLE TO IDMS STANDARD Performed By: #### C BARB SARABIA, 06850-2, 48088-1 #### [facility] ([id number]) [address] [place] [address] GFR/1.73 sq M.predicted among non-blacks MDRD (S/P/Bld) [Vol rate/Area] 70 mL/min/{1.73_m2} Normal >59 [facility] Comment on above: Result Comment: Reported eGFR is based on the CKD-EPI 1 equation that does not use a race coefficient. Performed By: #### C BARB SARABIA, 06650-9, 34433-2 #### [facility] ([id number]) [address] [place] [address] Glucose [Mass/Vol] 98 mg/dL Normal 65-99 [facility] Comment on above: Performed By: #### C NO CMP, 09315-9, 47411-0 #### [facility] ([id number]) [address] [place] [address] Potassium [Moles/Vol] 3.4 mmol/L Low 3.5-5.0 [facility] Comment on above: Performed By: #### C NO CMP, 14369-4, 66181-1 #### [facility] ([id number]) [address] [place] [address] Protein [Mass/Vol] 7.5 g/dL Normal 6.0-8.0 [facility] Comment on above: Performed By: #### C BCA, CMP, 56242-8, 27015-9 #### [facility] ([id number]) [address] [place] [address] Sodium [Moles/Vol] 136 mmol/L Normal 134-146 [facility] Comment on above: Performed By: #### C BCA, CMP, 20672-0, 20567-9 #### [facility] ([id number]) [address] [place] [address] Urea nitrogen [Mass/Vol] 10 mg/dL Normal 5-23 [facility] Comment on above: Performed By: #### C BCA, CMP, 69161-3, 00285-2 #### [facility] ([id number]) [address] [place] [address] Fibrin D-dimer DDU (PPP) [Ma ss/Vol]on 09-27-2023 D DIMER <150 Normal <255 [facility] Comment on above: Result Comment: Results <255 ng/mL DDU: The presence of a VTE can safely be excluded with a negative D-Dimer result and Wells score. A negative result doesn't exclude the possibility of DIC. The test be repeated along with other diagnostic tests if the patient's symptoms persist or worsen. [email or web address] Performed By: #### C BCA, CMP, 34093-9, 04394-0 #### [facility] ([id number]) [address] [place] [address] SARS/FLU A+B/RSV by NAAT/Mol ecularon 09-27-2023 SARS/FLU [...] operators who are performing tests using either [employer] or [employer] and is limited to laboratories that [...] repeat. Fact Sheet for Healthcare Providers: https://www.fda.gov/me nanci/329419/download Fact Sheet for Patients: https://www.fda.gov/me nanci/506670/download Normal [facility] Comment on above: Performed By: #### C OVFLR #### [facility] ([id number]) [address] [place] [address] TROPONIN Ion 09-27-2023 Troponin I.cardiac [Mass/Vol] ng/mL Normal 0.00-0.04 [facility] Comment on above: Performed By: #### C BCA, CMP, 54550-3, 52591-5 #### [facility] ([id number]) [address] [place] [address] URINE CULTUREon 09-27-2023 Bacteria identified Cx Nom (U) CULTURE RESULTS <10,000 ORGANISMS/ML NORMAL URO GENITAL JIMMY Normal [facility] Comment on above: Performed By: #### 6 30-4 #### [facility] ([id number]) [address] [place] [address], [address] [place] [address] URN MACROSCOPIC NURon 2023 BILIRUBIN GALLO Negative Normal NEG [facility] Comment on above: Performed By: #### N UM #### [facility] ([id number]) [address] [place] [address] BLOOD/HGB GALLO Negative Normal NEG [facility] Comment on above: Performed By: #### N UM #### [facility] ([id number]) [address] [place] [address] GLUCOSE GALLO Negative Normal NEG [facility] Comment on above: Performed By: #### N UM #### [facility] ([id number]) [address] [place] [address] KETONES GALLO Negative Normal NEG [facility] Comment on above: Performed By: #### N UM #### [facility] ([id number]) [address] [place] [address] LEUKOCYTE ESTERASE GALLO Negative Normal NEG [facility] Comment on above: Performed By: #### N UM #### [facility] ([id number]) [address] [place] [address] NITRITE GALLO Positive Abnormal NEG [facility] Comment on above: Performed By: #### N UM #### [facility] ([id number]) [address] [place] [address] PH GALLO 7.0 Normal 5.0-8.5 [facility] Comment on above: Performed By: #### N UM #### [facility] ([id number]) [address] [place] [address] PROTEIN GALLO Negative Normal NEG [facility] Comment on above: Performed By: #### N UM #### [facility] ([id number]) [address] [place] [address] SPECIFIC GRAVITY GALLO 1.020 Normal 1.003-1.035 [facility] Comment on above: Performed By: #### N UM #### [facility] ([id number]) [address] [place] [address] UROBILINOGEN GALLO 0.2 eu/dL Normal <1.1 [facility] Comment on above: Performed By: #### N UM #### [facility] ([id number]) [address] [place] [address] Urine collection deviceon ER EXTRA URINES ER EXTRA URINE ORDER IN PROCESS Normal [facility] Comment on above: Performed By: #### 8 0334-6 #### [facility] ([id number]) [address] [place] [address] XR CHEST 1 VWon 09-27-2023 XR CHEST 1 VW XR CHEST 1 VW XR CHEST 1 VW CLINICAL INFORMATION: Shortness of breath. COMPARISON: 03/25/23. IMPRESSION: * No acute cardiopulmonary disease. Finalized by Manas Biggs MD on 09/27/2023 3:16 PM Normal [facility] POCT EKGon 09-02-2023 [facility] ALDOLASE BLDon 06-24-2023 Aldolase [Catalytic activity/Vol] 11.2 mU/mL High 1.5 - 8.1 U/L [facility] Aldolase SerPl-cCncon 2022 Aldolase [Catalytic activity/Vol] 11.2 mU/mL High 1.5-8.1 [facility] Comment on above: Order Comment: Speci men Type: BLOOD SPECIMEN Ordering Facility: [facility] Address: [address], [place] [address] Result Comment: This test was developed and its performance characteristics determined by [facility]'s [facility] [place] ([facility]). It has not been cleared or approved by the FDA. [facility] is regulated under CLIA as qualified to perform high-complexity testing. This test is used for clinical purposes. It should not be regarded as investigational or for research. Performed By: #### 1 761-6 #### [facility] CLIA [id number] [address] [facility] DESK [id number] [place] C-REACTIVE PROTEIN (CRP)on 08-25-2022 CRP [Mass/Vol] 0.6 mg/dL <0.9 mg/dL [facility] CBC panel Auto (Bld)on 06-24 Erythrocyte distribution width (RBC) [Ratio] 11.9 % Normal 11.5-15.0 [facility] Comment on above: Order Comment: Mert del valle Type: BLOOD SPECIMEN Ordering Facility: [facility] Address: [address] [place] [address] Performed By: #### 5 8410-2 #### [facility] [place] [id number] [address] [place] Hematocrit (Bld) [Volume fraction] 45.7 % Normal 36.0-46.0 [facility] Comment on above: Order Comment: Mert del valle Type: BLOOD SPECIMEN Ordering Facility: [facility] Address: [address] [place] [address] Performed By: #### 5 8410-2 #### [facility] IA [id number] [address] [place] [address] [place] Hemoglobin (Bld) [Mass/Vol] 15.5 g/dL Normal 11.5-15.5 [facility] Comment on above: Order Comment: Speci men Type: BLOOD SPECIMEN Ordering Facility: [facility] Address: [address] [place] [address] Performed By: #### 5 8410-2 #### [facility] IA [id number] [address] [place] [address] [place] MCH (RBC) [Entitic mass] 31.6 pg Normal 26.0-34.0 [facility] Comment on above: Order Comment: Speci men Type: BLOOD SPECIMEN Ordering Facility: [facility] Address: [address] [place] [address] Performed By: #### 5 8410-2 #### [facility] IA [id number] [address] [place] [address] [place] MCHC (RBC) [Mass/Vol] 33.9 g/dL Normal 30.5-36.0 [facility] Comment on above: Order Comment: Speci men Type: BLOOD SPECIMEN Ordering Facility: [facility] Address: [address] [place] [address] Performed By: #### 5 8410-2 #### [facility] IA [id number] [address] [place] [address] [place] MCV (RBC) [Entitic vol] 93.1 fL Normal 80.0-100.0 [facility] Comment on above: Order Comment: Speci men Type: BLOOD SPECIMEN Ordering Facility: [facility] Address: [address] [place] [address] Performed By: #### 5 8410-2 #### [facility] [place] [id number] [address] [place] [address] [place] Nucleated RBC (Bld) [#/Vol] 10*3/uL Normal <0.01 [facility] Comment on above: Order Comment: Speci men Type: BLOOD SPECIMEN Ordering Facility: [facility] Address: [address] [place] [address] Performed By: #### 5 8410-2 #### [facility] CLIA [id number] [address] [place] [address] [place] Platelet mean volume (Bld) [Entitic vol] 10.6 fL Normal 9.0-12.7 [facility] Comment on above: Order Comment: Speci men Type: BLOOD SPECIMEN Ordering Facility: [facility] Address: [address] [place] [address] Performed By: #### 5 8410-2 #### [facility] [place] [id number] [address] [place] [address] [place] Platelets (Bld) [#/Vol] 192 10*3/uL Normal 150-400 [facility] Comment on above: Order Comment: Speci men Type: BLOOD SPECIMEN Ordering Facility: [facility] Address: [address] [place] [address] Performed By: #### 5 8410-2 #### [facility] CLIA [id number] [address] [place] [address] [place] RBC (Bld) [#/Vol] 4.91 10*6/uL Normal 3.90-5.20 [facility] Comment on above: Order Comment: Speci men Type: BLOOD SPECIMEN Ordering Facility: [facility] Address: [address] [place] [address] Performed By: #### 5 8410-2 #### [facility] CLIA [id number] [address] [place], [place] [address] [place] [address] [place] WBC (Bld) [#/Vol] 8.95 10*3/uL Normal 3.70-11.00 [facility] Comment on above: Order Comment: Speci men Type: BLOOD SPECIMEN Ordering Facility: [facility] Address: [address] [place] [address] Performed By: #### 5 8410-2 #### [facility] CLIA [id number] [address] [place] [address] [place] Erythrocyte distribution width (RBC) [Ratio] 11.9 % 11.5 - 15.0 % [facility] Hematocrit (Bld) [Volume fraction] 45.7 % 36.0 - 46.0 % [facility] Hemoglobin (Bld) [Mass/Vol] 15.5 g/dL 11.5 - 15.5 g/dL [facility] MCH (RBC) [Entitic mass] 31.6 pg 26.0 - 34.[address] [facility] MCHC (RBC) [Mass/Vol] 33.9 g/dL 30.5 - 36.0 g/dL [facility] MCV (RBC) [Entitic vol] 93.1 fL 80.0 - 100.[address] [facility] Nucleated RBC (Bld) [#/Vol] <0.01 k/uL [facility] Platelet mean volume (Bld) [Entitic vol] 10.6 fL 9.0 - 12.[address] [facility] Platelets (Bld) [#/Vol] 192 10*3/uL 150 - 400 k/uL [facility] RBC (Bld) [#/Vol] 4.91 10*6/uL 3.90 - 5.2 0 m/uL [facility] WBC (Bld) [#/Vol] 8.95 10*3/uL 3.70 - 11. 00 k/uL [facility] CK CREATINE KINASEon 023 CK [Catalytic activity/Vol] 119 U/L 42 - 196 U/L [facility] CK SerPl-cCncon 06-24-2023 CK [Catalytic activity/Vol] 119 U/L Normal 42-196 [facility] Comment on above: Order Comment: Speci men Type: BLOOD SPECIMEN Ordering Facility: [facility] Address: [facility] [place] [address] Performed By: #### 2 157-6, 1987-11, 76574-8 #### [facility] CLIA [id number] [address] [facility] [address] CNOVon 06-24-2023 CNOV Office Visit (RHEUAV ) LYNETTE HAIRSTON ([id number]) 1975 F Date Time Provider Department 06/24/23 [...] bursa injection Informed Consent Consent Obtained: Verbal [place] Protocol A moment to CARE was completed. [...] myopthay and (more content not included)... Normal [facility] CRP SerPl-mCncon 06-24-2023 CRP [Mass/Vol] 0.6 mg/dL Normal <0.9 [facility] Comment on above: Order Comment: Speci ivon Type: BLOOD SPECIMEN Ordering Facility: [facility] Address: [address] [place] [address] Performed By: #### 2 157-6, 1987-11, #### [facility] CLIA [id number] [address] [place] [address] [place] Comprehensive metabolic 2000 panelon 06-24-2023 Albumin [Mass/Vol] 4.5 g/dL Normal 3.9-4.9 [facility] Comment on above: Order Comment: Speci ivon Type: BLOOD SPECIMEN Ordering Facility: [facility] Address: [address] [place] [address] Performed By: #### 2 157-6, 1987-11, #### [facility] CLIA [id number] [address] [place] [address] [place] ALP [Catalytic activity/Vol] 46 U/L Normal 34-123 [facility] Comment on above: Order Comment: Speci men Type: BLOOD SPECIMEN Ordering Facility: [facility] Address: [address] [place] [address] Performed By: #### 2 157-6, 1987-11, #### [facility] CLIA [id number] [address] [place] [address] [place] ALT [Catalytic activity/Vol] 46 U/L High 7-38 [facility] Comment on above: Order Comment: Speci men Type: BLOOD SPECIMEN Ordering Facility: [facility] Address: [address] [place] [address] Performed By: #### 2 157-6, 1987-11, #### [facility] CLIA [id number] [address] [place] [address] [place] Anion gap [Moles/Vol] 8 mmol/L Low 9-18 [facility] Comment on above: Order Comment: Speci men Type: BLOOD SPECIMEN Ordering Facility: [facility] Address: [address] [place] [address] Performed By: #### 2 157-6, 1987-11, #### [facility] CLIA [id number] [address] [place] [address] [place] AST [Catalytic activity/Vol] 39 U/L High 13-35 [facility] Comment on above: Order Comment: Speci men Type: BLOOD SPECIMEN Ordering Facility: [facility] Address: [address] [place] [address] Performed By: #### 2 157-6, 1987-11, #### [facility] CLIA [id number] [address] [place] [address] [place] Bilirubin [Mass/Vol] 1.2 mg/dL Normal 0.2-1.3 [facility] Comment on above: Order Comment: Speci men Type: BLOOD SPECIMEN Ordering Facility: [facility] Address: [address] [place] [address] Performed By: #### 2 157-6, 1987-11, #### [facility] CLIA [id number] [address] [place] [address] [place] Calcium [Mass/Vol] 9.5 mg/dL Normal 8.5-10.2 [facility] Comment on above: Order Comment: Speci men Type: BLOOD SPECIMEN Ordering Facility: [facility] Address: [address] [place] [address] Performed By: #### 2 157-6, 1987-11, #### [facility] CLIA [id number] [address] [place] [address] [place] Chloride [Moles/Vol] 105 mmol/L Normal 97-105 [facility] Comment on above: Order Comment: Speci men Type: BLOOD SPECIMEN Ordering Facility: [facility] Address: [address] [place] [address] Performed By: #### 2 157-6, 1987-11, #### [facility] CLIA [id number] [address] [place] [address] [place] CO2 [Moles/Vol] 27 mmol/L Normal 22-30 [facility] Comment on above: Order Comment: Speci men Type: BLOOD SPECIMEN Ordering Facility: [facility] Address: [address] [place] [address] Performed By: #### 2 157-6, 1987-11, #### [facility] CLIA [id number] [address] [place] [address] [place] Creatinine [Mass/Vol] 1.10 mg/dL High 0.58-0.96 [facility] Comment on above: Order Comment: Speci men Type: BLOOD SPECIMEN Ordering Facility: [facility] Address: [address] [place] [address] Performed By: #### 2 157-6, #### [facility] IA [id number] [address] [place] [address] [place] Creatinine and Glomerular filtration rate.predicted panel (S/P/Bld) 62 mL/min/1.73m??? Normal >=60 [facility] Comment on above: Order Comment: Speci men Type: BLOOD SPECIMEN Ordering Facility: [facility] Address: [address] [place] [address] Result Comment: Flores mated Glomerular Filtration Rate [...] GFR. Performed By: #### 2 157-6, #### [facility] CLIA [id number] [address] [place] [address] [place] Glucose [Mass/Vol] 94 mg/dL Normal 74-99 [facility] Comment on above: Order Comment: Speci men Type: BLOOD SPECIMEN Ordering Facility: [facility] Address: [address] [place] [id number] Result Comment: The [place] Diabetes [employer] (ADA) provides guidance for cutoff [...] Standards of Medical Care in Diabetes 2016, [place] [employer]. Diabetes Care. 2016.39(Suppl 1). Performed By: #### 2 157-6, #### [facility] CLIA [id number] [address] [place] [address] [place] Potassium [Moles/Vol] 4.2 mmol/L Normal 3.7-5.1 [facility] Comment on above: Order Comment: Speci men Type: BLOOD SPECIMEN Ordering Facility: [facility] Address: [address] [place] [address] Performed By: #### 2 157-, #### [facility] CLIA [id number] [address] [place] [address] [place] Protein [Mass/Vol] 7.3 g/dL Normal 6.3-8.0 [facility] Comment on above: Order Comment: Speci men Type: BLOOD SPECIMEN Ordering Facility: [facility] Address: [address] [place] [address] Performed By: #### 2 157-6, #### [facility] CLIA [id number] [address] [place] [address] [place] Sodium [Moles/Vol] 140 mmol/L Normal 136-144 [facility] Comment on above: Order Comment: Speci men Type: BLOOD SPECIMEN Ordering Facility: [facility] Address: [address] [place] [address] Performed By: #### 2 157-6, #### [facility] CLIA [id number] [address] [place] [address] [place] Urea nitrogen [Mass/Vol] 12 mg/dL Normal 7-21 [facility] Comment on above: Order Comment: Speci men Type: BLOOD SPECIMEN Ordering Facility: [facility] Address: [address] [place] [address] Performed By: #### 2 157-6, 1987-11, #### [facility] CLIA [id number] [address] [place] [address] [place] Albumin [Mass/Vol] 4.5 g/dL 3.9 - 4.9 g/dL [facility] ALP [Catalytic activity/Vol] 46 U/L 34 - 123 U/L [facility] ALT [Catalytic activity/Vol] 46 U/L High 7 - 38 U/L [facility] Anion gap [Moles/Vol] 8 mmol/L Low 9 - 18 mmol/L [facility] AST [Catalytic activity/Vol] 39 U/L High 13 - 35 U/L [facility] Bilirubin [Mass/Vol] 1.2 mg/dL 0.2 - 1.3 mg/dL [facility] Calcium [Mass/Vol] 9.5 mg/dL 8.5 - 10. 2 mg/dL [facility] Chloride [Moles/Vol] 105 mmol/L 97 - 105 mmol/L [facility] CO2 [Moles/Vol] 27 mmol/L 22 - 30 mmol/L [facility] Creatinine [Mass/Vol] 1.10 mg/dL High 0.58 - 0.96 mg/dL [facility] Estimated Glomerular Filtration Rate 62 mL/min/1.73m >=60 mL/min/1.73m [facility] Glucose [Mass/Vol] 94 mg/dL 74 - 99 mg/dL [facility] Potassium [Moles/Vol] 4.2 mmol/L 3.7 - 5.1 mmol/L [facility] Protein [Mass/Vol] 7.3 g/dL 6.3 - 8.0 g/dL [facility] Sodium [Moles/Vol] 140 mmol/L 136 - 144 mmol/L [facility] Urea nitrogen [Mass/Vol] 12 mg/dL 7 - 21 mg/dL [facility] ESR Westergren method (Bld) [Velocity]on 06-24-2023 ESR (Bld) [Velocity] 23 mm/h High 0 - 20 mm/hr [facility] ESR (Bld) [Velocity] 23 mm/h High 0-20 [facility] Comment on above: Order Comment: Speci men Type: BLOOD SPECIMEN Ordering Facility[facility] Address: [address] [place] [address] Performed By: #### 2 157-6, 1987-5, 09605-6 #### [facility] CLIA [id number] [address] [place] [address] [place] No Panel Informationon 06-[address] [facility] XR LUMBAR 3V AP/LAT/L5-S1on 06-24-2023 XR [...] DEGENERATIVE CHANGES AND LEVOSCOLIOSIS SIMILAR TO PRIOR. Supervisor Pre Wave: MARQUEZ Transcribe Date/Time: Jun 24 2023 1:12P Dictated by : BRADY FELDMAN MD This examination was interpreted and the report reviewed and electronically signed by: BRADY FELDMAN MD on Jun 24 2023 1:14PM EST [id number] [facility] 05-12-2023 [facility] Telephone (RHEUAV) LYNETTE HAIRSTON ([id number]) 1975 F Date Time Provider Department 05/12/23 NOEMI PHAM During your visit today, we recorded the following information about you: Refugio Mosqueda 05/12/2023 1:20 PM Signed Ashwini from [email or web address] is calling Noemi Pham MD today to clarify medication. When they were filling the enbrel, it flagged that the patient has a thrombocytopenia diagnosis. They need to clarify that the provider is aware. They cannot send the medication until they get that clarification. [phone] Patient has been identified by name and birthdate. Duration of symptoms: N/A Person calling: pharmacy: [facility] Call patient at: on cell [phone] (home) [phone] (cell) Was an appointment scheduled: No Closing statement: Results or non-symptom based questions: Thank you for calling [facility], your call will be returned within the next business day. Allison Rodríguez OCCA 05/12/2023 1:29 PM Signed Faxed [email or web address], patient is no longer on medication Jonelle Flores Ma 05/19/2023 9:12 AM Signed Patient calling back. States she is on Enbrel. She takes it once a week and has not had it in about 2 weeks. She is starting to get pain. She is no longer on Plaquenil. Asking for the office to call [email or web address] to get this straightened out. She only [...] Days Visit Type Date Time Department [facility] 06/24/2023 11:20 AM [facility] REJ Last Ophthalmology Check for Plaquenil (Hydroxychloroquine) [...] 05/19/2023 10:06 AM Signed Spoke with patient. [facility] had held medication due to dx of thrombocytopenia. I spoke with [facility] and informed them patient was cleared from [...] acting, (LOPR (more content not included)... Normal [facility] Miscellaneouson 03-24-[address] Out [address] [facility] Comment on above: Result Comment: PERF ORMED AT [facility] [address] [place] [id number] (NOTE) Fat, Fecal Quantitative 72-Hour Collection (Includes Homogenization) [employer] test code [id number] Fat, Fecal Quantitative 72-Hour 4.2 g/d (Ref Interval: 0.0-6.0) INTERPRETIVE INFORMATION: Fat, Fecal Quantitative 72-Hour Collection Access complete set of age- and/or gender-specific reference intervals for this test in the [employer] Laboratory Test Directory ([employer]). This test was developed and its performance characteristics determined by [employer]. It has not been cleared or approved [...] Performed By: #### C MIS #### [facility] [address] [place] [address] Records Coordinator: Richie Alexis DO Miscellaneouson 03-22-2023 Test Name [address] [facility] Comment on above: Performed By: #### C MIS #### [facility] [address] [place] [address] Records Coordinator: Richie Alexis DO CNPNon 03-09-2023 [facility] Telephone (PreE[employer]ive SolutionsUAV) LYNETTE HAIRSTON ([id number]) 1975 F Date Time Provider Department 03/09/23 [...] Status:Closed by JUD HESS LPN on 03/09/23 [facility] 01-28-2023 NAVE[facility] Telephone (HYUN) LYNETTE HAIRSTON ([id number]) 1975 F Date Time Provider Department 01/28/23 [...] Encounter Status:Closed by BRIANDA PALOMARES [facility] (SUNGUAV) LYNETTE HAIRSTON ([id number]) 1975 F Date Time Provider Department 01/26/23 NOEMI PHAM During your visit today, we recorded the following information about you: Gris Warner, BANDAR 01/26/2023 8:38 AM Signed The pt is [...] 01/26/2023 11:13 AM Signed Message sent on [employer] regarding this . Noemi Pham MD Allergies [...] Status:Closed by NOEMI PHAM on 01/26/23 Normal [facility] ANURAG BY IFA WITH REFLEXon Nuclear Ab IF (S) [Titer] Negative Normal Negative [facility] Comment on above: Order Comment: Speci men Type: BLOOD SPECIMEN Ordering Facility[facility] Address: [address] [place] [id number] Result Comment: Anti -nuclear antibody test is used as an aid in diagnosis of systemic autoimmune diseases. Where positive and clinically warranted, follow-up using disease-specific testing is recommended. Low positive titers are not uncommon with advanced age, certain chronic infections, and malignancies among others. Test methodology: Indirect fluorescence immunoassay (IFA) using HEp-2 cells. Performed By: #### 1 761-6 #### [facility] CLIA [id number] [address] [place] [address] Aldolase SerPl-cCncon 2022 Aldolase [Catalytic activity/Vol] 8.8 mU/mL High 1.5-8.1 [facility] Comment on above: Order Comment: Mert del valle Type: BLOOD SPECIMEN Ordering Facility: [facility] Address: [address] [address] Result Comment: This test was developed and its performance characteristics determined by [facility]'s [facility] [place] ([facility]). It has not been cleared or approved by the FDA. -[facility] is regulated under CLIA as qualified to perform high-complexity testing. This test is used for clinical purposes. It should not be regarded as investigational or for research. Performed By: #### 1 761-6 #### [facility] CLIA [id number] [address] [place] [address] [place] CK SerPl-cCncon 01-14-2023 CK [Catalytic activity/Vol] 110 U/L Normal 42-196 [facility] Comment on above: Order Comment: Mert del valle Type: BLOOD SPECIMEN Ordering Facility[facility] Address: [place] [address] Performed By: #### 1 761-6 #### [facility] CLIA [id number] [address] [place] [address] OF [place] CNOVon 01-14-2023 CNOV Office Visit (HYUN ) LYNETTE HAIRSTON ([id number]) 1975 F Date Time Provider Department 01/14/23 [...] F/U: 6m Check following: -none MD Naseem Lopez LPN 01/14/2023 11:48 AM Signed Verified 80mg depomedrol injection with Paty Mckinney LPN. Allergies As of Date: 01/14/2023 Noted Allergy Reaction MELOXICAM 11/23/2016 4 - Hives Comments: METHOTREXATE 12/25/2014 8 - GI Upset Date Reviewed: 01/14/2023 Reviewed by: Minna Mckinney RN - Fully Assessed Reason for Visit: Follow Up [171] Primary Visit Diagnosis:Malar rash [R21] Order(s):HISTONE IGG LAUREANO [SQHISTN] Order #: [id number] FUTURE ANURAG BY IFA WITH REFLEX [SQANAIFR] Order #: [id number] FUTURE ANURAG BLOOD [SQANAS] Order #: [id number] FUTURE ANTI LEVY ID [SQENAID] Order #: [id number] FUTURE SED RATE WESTERGREN [SQWSR] Order #: [id number] FUTURE C-REACTIVE PROTEIN (CRP) [SQCRP] Order #: [id number] FUTURE RHEUMATOID FACTOR BL [SQRF] Order #: [id number] FUTURE CK CREATINE KINASE [SQCK] Order #: [id number] FUTURE ALDOLASE BLD [SQALD] Order #: [id number] FUTURE [] methylPREDN (more content not included)... Normal [facility] CRP SerPl-mCncon 01-14-2023 CRP [Mass/Vol] 0.6 mg/dL Normal <0.9 [facility] Comment on above: Order Comment: Speci men Type: BLOOD SPECIMEN [facility]ing Facility[facility] Address: [address] [place] [address] Performed By: #### 2 157-6, 1987-, 98930-9 #### [facility] CLIA [id number] [address] [place] [address] [place] ESR Westergren method (Bld) [Velocity]on 01-14-2023 ESR (Bld) [Velocity] 16 mm/h Normal 0-20 [facility] Comment on above: Order Comment: Speci men Type: BLOOD SPECIMEN Ordering Facility[facility] Address: [address] [place] [address] Performed By: #### 1 761-6 #### [facility] CLIA [id number] [address] [place] [address] [place] HISTONE IGG ABYon 01-14-2023 HISTONE 0.1 Units Normal <1.0 [facility] Comment on above: Order Comment: Mert [place] valle Type: BLOOD SPECIMEN Ordering Facility[facility] Address: [address] [place] [address] Performed By: #### 1 761-6 #### [facility] CLIA [id number] [address] [place] [address] [place] HISTONE IGG QUALITATIVE Negative Normal [facility] Comment on above: Order Comment: Mert [place] valle Type: BLOOD SPECIMEN Ordering Facility[facility] Address: [address] [place] [address] Result Comment: Anti -histone IgG antibody test [...] required. Performed By: #### 1 761-6 #### [facility] CLIA [id number] [address] [place] [address] [place] Nuclear Ab IA Ql (S)on 01-14 ANURAG SCR QUAL Negative Normal Negative [facility] Comment on above: Order Comment: Mert [place] valle Type: BLOOD SPECIMEN Ordering [facility] Address: [address] [place] [address] Result Comment: The qualitative antinuclear antibody screen test performed using the following antigens: dsDNA, Chromatin, Ribosomal P, SS-A 60, SS-A 52, SS-B, Sm, SmRNP, MOUNTING MACHINE OPERATOR A, MOUNTING MACHINE OPERATOR 68, Scl-70, Odalis-1, and Centromere B. Methodology: Multiplex flow immunoassay. Performed By: #### 1 761-6 #### [facility] CLIA [id number] [address] [place] [address] [place] Rheumatoid fact SerPl-aCncon 01-14-2023 Rheumatoid factor Qn [IU]/mL High <16 [facility] Comment on above: Order Comment: Speci men Type: BLOOD SPECIMEN [facility] Address: [address] [facility] [place] [address] Performed By: #### 1 1572-5 #### [facility] CLIA [id number] [address] [facility] [id number] [address] [place] [facility] CNOVon 12-24-2022 CNOV Office Visit (NENMMN ) LYNETTE HAIRSTON ([id number]) 1975 F Date Time Provider Department 12/24/22 1:00 PM LIZ CONNOLLY NENMMN During your visit today, we recorded the following information about you: Pulse Blood pressure 106/minute 121/84 Liz Connolly MD 01/04/2023 10:43 AM Signed S[facility] [place] [facility] Note- Established patient Provider: Liz [...] that she has been following 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 Normal [facility] EMG(NEURO/NI)on 12-24-[address] [facility] Surgical Pathologyon 023 Surgical Pathology (NOTE) Path Number: [id number] -- Diagnosis -- Colon, random biopsies: Normal [...] is no dysplasia or malignancy. Processing Lab: [facility] [address] [place] [address] Interpretation Performed at [facility] [address] [place], [place] SURGICAL PATHOLOGY CONSULTATION Patient Name: LYNETTE HAIRSTON. Med Rec: [id number] [facility] ANATOMIC PATHOLOGY [address] [place] [address]. [place], [place] [address] [facility] Comment on above: Performed By: #### P PPVS #### [address] [address] Records Coordinator: MD Mary Velazquez 12-01-2022 [facility] Telephone (PreEmptive SolutionsWINIFRED) LYNETTE HAIRSTON ([id number]) 1975 F Date Time Provider Department 12/01/22 [...] Fully Assessed Reason for Visit: Insurance Authorization [[id number]] Cmt: Enbrel Prescriptions as of 12/01/2022 - [...] Status:Closed by INOCENCIA BUI LPN on 12/01/22 [facility] 11-15-2022 [facility] Telephone (PreEmptive SolutionsUAV) LYNETTE HAIRSTON ([id number]) 1975 F Date Time Provider Department 11/15/22 NOEMI PHAM During your visit today, we recorded the following information about you: Noemi Pham MD 11/15/2022 1:23 PM Signed Please tell her I received labs from [facility] and her cpk and aldolase returned [...] Status:Closed by NOEMI PHAM on 11/15/22 Normal [facility] Orders Onlyon 10-28-2022 Orders Only [id number] Refugio Hairston 1975 Provider Department Center 10/28/2022 CRISTHIAN MARIE MP GI Medical Pavi Family History Family Status - Relation Status Age at Daughter Notes: pancreatic insuffiency Son Notes: Crohns Normal [facility] Labon 09-08-2022 Lab [id number] Refugio Hairston 1975 Provider Department Center 09/08/[address] [place] [address] MP LAB RESOURCE ADILENE DRAW Medical Pavi Family History Family Status - Relation Status Age at Daughter Notes: pancreatic insuffiency Son Notes: Crohns Normal [facility] Office Visiton 09-08-2022 Follow-up visit [id number] Refugio Hairston 1975 Provider Department Center 09/08/2022 CRISTHIAN MARIE MP GI Medical Pavi Family History Family Status - Relation Status Age at Daughter Notes: pancreatic insuffiency Son Notes: Crohns Level of Service:91584 [place] OFFICE/OUTPATIENT ESTABLISHED MOD MDM 30-39 MIN Reason for Visit and Comments: Follow-up [660205] Diarrhea [35] Normal [facility] PANCREATIC ELASTASE, FECALon 09-08-2022 PANCREATIC ELASTASE, FECAL >800 Normal >=100 [facility] Comment on above: Result Comment: REFE RENCE INTERVAL: Pancreatic Elastase Fecal by Immunoassay Less than 100 ug/g............Severe insufficiency 100 - 199 ug/g................Moderate insufficiency 200 ug/g or greater...........Normal INTERPRETIVE INFORMATION: Pancreatic Elastase Fecal by Immunoassay Reference intervals do not apply for infants less than one month old. Performed by [facility], [address] [place] [id number] www.[email or web address], Vito Arteaga MD, PHD, Lab. Director Performed By: #### L AB979 ####[facility] ([address] [address] Aldolase SerPl-cCncon 2022 Aldolase [Catalytic activity/Vol] 9.9 mU/mL High 1.5-8.1 [facility] Comment on above: Order Comment: Speci men Type: BLOOD SPECIMEN [facility] Address: [address] [address] Result Comment: This test was developed and its performance characteristics determined by [facility]'s [facility] [place] (RT[facility]). It has not been cleared or approved by the FDA. -[facility] is regulated under CLIA as qualified to perform high-complexity testing. This test is used for clinical purposes. It should not be regarded as investigational or for research. Performed By: #### 1 761-6 #### [facility] CLIA [id number] [address] [place] [address] [place] C-REACTIVE PROTEIN (CRP)on 0 08-11-2022 CRP [Mass/Vol] 0.8 mg/dL <0.9 mg/dL [facility] CBC panel Auto (Bld)on 08-11 Erythrocyte distribution width (RBC) [Ratio] 11.7 % Normal 11.5-15.0 [facility] Comment on above: Order Comment: Speci men Type: BLOOD SPECIMEN Order[facility] Address: [address] Performed By: #### 1 761-6 #### [facility] CLIA [id number] [address] STATES [place] Hematocrit (Bld) [Volume fraction] 44.1 % Normal 36.0-46.0 [facility] Comment on above: Order Comment: Speci men Type: BLOOD SPECIMEN Order[facility] Address: [address] [address] Performed By: #### 1 761-6 #### [facility] CLIA [id number] [address] [place] [address] [place] Hemoglobin (Bld) [Mass/Vol] 15.2 g/dL Normal 11.5-15.5 [facility] Comment on above: Order Comment: Speci men Type: BLOOD SPECIMEN Ordering [facility] Address: [address] [place] [address] Performed By: #### 1 761-6 #### [facility] CLIA [id number] [facility] [address] [place] MCH (RBC) [Entitic mass] 31.7 pg Normal 26.0-34.0 [facility] Comment on above: Order Comment: Speci men Type: BLOOD SPECIMEN Order[facility] Address: [address] [place] [address] Performed By: #### 1 761-6 #### [facility] CLIA [id number] [address] [place] [address] [place] MCHC (RBC) [Mass/Vol] 34.5 g/dL Normal 30.5-36.0 [facility] Comment on above: Order Comment: Speci men Type: BLOOD SPECIMEN Order[facility] Address: [address] [place] [address] Performed By: #### 1 761-6 #### [facility] CLIA [id number] [address] [place] [address] [place] MCV (RBC) [Entitic vol] 92.1 fL Normal 80.0-100.0 [facility] Comment on above: Order Comment: Speci men Type: BLOOD SPECIMEN Order[facility] Address: [address] [place], [place] [address] Performed By: #### 1 761-6 #### [facility] CLIA [id number] [address] [place] [address] [place] Nucleated RBC (Bld) [#/Vol] 10*3/uL Normal <0.01 [facility] Comment on above: Order Comment: Speci men Type: BLOOD SPECIMEN Order[facility] Address: [address] Performed By: #### 1 761-6 #### [facility] CLIA [id number] [address] [place] [address] [place] Platelet mean volume (Bld) [Entitic vol] 11.0 fL Normal 9.0-12.7 [facility] Comment on above: Order Comment: Speci men Type: BLOOD SPECIMEN Order[facility] Address: [address] Performed By: #### 1 761-6 #### [facility] CLIA [id number] [address] [place] [address] [place] Platelets (Bld) [#/Vol] 205 10*3/uL Normal 150-400 [facility] Comment on above: Order Comment: Speci men Type: BLOOD SPECIMEN Order[facility] Address: [address] Performed By: #### 1 761-6 #### [facility] CLIA [id number] [address] [place] [address] [place] RBC (Bld) [#/Vol] 4.79 10*6/uL Normal 3.90-5.20 [facility] Comment on above: Order Comment: Speci men Type: BLOOD SPECIMEN Order[facility] Address: [address] Performed By: #### 1 761-6 #### [facility] CLIA [id number] [address] [place] [address] [place] WBC (Bld) [#/Vol] 9.49 10*3/uL Normal 3.70-11.00 [facility] Comment on above: Order Comment: Speci men Type: BLOOD SPECIMEN Order[facility] Address: [address] [place], [place] [address] Performed By: #### 1 761-6 #### [facility] CLIA [id number] [address] STATES OF [facility] Erythrocyte distribution width (RBC) [Ratio] 11.7 % 11.5 - 15.0 % [facility] Hematocrit (Bld) [Volume fraction] 44.1 % 36.0 - 46.0 % [facility] Hemoglobin (Bld) [Mass/Vol] 15.2 g/dL 11.5 - 15.5 g/dL [facility] MCH (RBC) [Entitic mass] 31.7 pg 26.0 - 34.[address] [facility] MCHC (RBC) [Mass/Vol] 34.5 g/dL 30.5 - 36.0 g/dL [facility] MCV (RBC) [Entitic vol] 92.1 fL 80.0 - 100.[address] [facility] Nucleated RBC (Bld) [#/Vol] <0.01 k/uL [facility] Platelet mean volume (Bld) [Entitic vol] 11.0 fL 9.0 - 12.[address] [facility] Platelets (Bld) [#/Vol] 205 10*3/uL 150 - 400 k/uL [facility] RBC (Bld) [#/Vol] 4.79 10*6/uL 3.90 - 5.2 0 m/uL [facility] WBC (Bld) [#/Vol] 9.49 10*3/uL 3.70 - 11. 00 k/uL [facility] CK CREATINE KINASEon 023 CK [Catalytic activity/Vol] 115 U/L 42 - 196 U/L [facility] CK SerPl-cCncon 08-11-2022 CK [Catalytic activity/Vol] 115 U/L Normal 42-196 [facility] Comment on above: Order Comment: Speci men Type: BLOOD SPECIMEN [facility] Address: [address] [place] [address] Performed By: #### 1 761-6 #### [facility] CLIA [id number] [address] [place] CNOVon 08-11-2022 CNOV Office Visit (RHEUAV ) LYNETTE HAIRSTON ([id number]) 1975 F Date Time Provider Department 08/11/22 [...] 6m Check following: -none MD Inocencia Lopez TELEMARKETING REPRESENTATIVE 08/11/2022 10:21 AM Signed Methylprednisolone injection verified. 80mg. Jud Hess TELEMARKETING REPRESENTATIVE 08/11/2022 11:22 AM Signed Patient given Depomedrol 80 mg IM in the lef (more content not included)... Normal [facility] CRP SerPl-mCncon 08-11-2022 CRP [Mass/Vol] 0.8 mg/dL Normal <0.9 [facility] Comment on above: Order Comment: Speci men Type: BLOOD SPECIMEN Order[facility] Address: [address] [address] Performed By: #### 2 4321987-11 #### [facility] CLIA [id number] [address] [place] [address] [place] Comprehensive metabolic 2000 panelon 08-11-2022 Albumin [Mass/Vol] 4.6 g/dL Normal 3.9-4.9 [facility] Comment on above: Order Comment: Speci men Type: BLOOD SPECIMEN Order[facility] Address: [address] [id number] Performed By: #### 2 4321987-11 #### [facility] CLIA [id number] [address] [place] [address] [place] ALP [Catalytic activity/Vol] 44 U/L Normal 34-123 [facility] Comment on above: Order Comment: Speci men Type: BLOOD SPECIMEN Order[facility] Address: [address] Performed By: #### 2 4323-02, 1987-11 #### [facility] CLIA [id number] [address] [place] [address] [place] ALT [Catalytic activity/Vol] 32 U/L Normal 7-38 [facility] Comment on above: Order Comment: Speci men Type: BLOOD SPECIMEN [facility] Address: [address] Performed By: #### 2 4323-02, 1987-11 #### [facility] [place] [id number] [address] [place] [address] [place] Anion gap [Moles/Vol] 9 mmol/L Normal 9-18 [facility] Comment on above: Order Comment: Speci men Type: BLOOD SPECIMEN [facility] Address: [address] Performed By: #### 2 4323-02, 1987-11 #### [facility] IA [id number] [address] [place] [address] [place] AST [Catalytic activity/Vol] 26 U/L Normal 13-35 [facility] Comment on above: Order Comment: Speci men Type: BLOOD SPECIMEN Order[facility] Address: [address] Performed By: #### 2 4323-02, 1987-11 #### [facility] IA [id number] [address] [place] [address] [place] Bilirubin [Mass/Vol] 0.9 mg/dL Normal 0.2-1.3 [facility] Comment on above: Order Comment: Speci men Type: BLOOD SPECIMEN Order[facility] Address: [address] Performed By: #### 2 4323-02, 1987-11 #### [facility] CLIA [id number] [address] [place] [address] [place] Calcium [Mass/Vol] 10.5 mg/dL High 8.5-10.2 [facility] Comment on above: Order Comment: Speci men Type: BLOOD SPECIMEN Order[facility] Address: [address] [place] [address] Performed By: #### 2 4323-02, 1987-11 #### [facility] CLIA [id number] [address] [place] [address] [place] Chloride [Moles/Vol] 102 mmol/L Normal 97-105 [facility] Comment on above: Order Comment: Speci men Type: BLOOD SPECIMEN [facility] Address: [address] [place] [address] Performed By: #### 2 4323-02, 1987-11 #### [facility] IA [id number] [address] [place] [address] [place] CO2 [Moles/Vol] 29 mmol/L Normal 22-30 [facility] Comment on above: Order Comment: Speci men Type: BLOOD SPECIMEN [facility] Address: [address] [place] [address] Performed By: #### 2 4323-02, 1987-11 #### [facility] CLIA [id number] [address] [place] [address] [place] Creatinine [Mass/Vol] 0.93 mg/dL Normal 0.58-0.96 [facility] Comment on above: Order Comment: Speci men Type: BLOOD SPECIMEN Order[facility] Address: [address] [place] Performed By: #### 2 4323-02, 1987-11 #### [facility] IA [id number] [address] [place] [address] [place] ESTIMATED GLOMERULAR FILTRATION RATE 76 mL/min/1.73m??? Normal >=60 [facility] Comment on above: Order Comment: Mert [place] valle Type: BLOOD SPECIMEN Order[facility] Address: [place] [address] Result Comment: Flores mated Glomerular Filtration Rate [...] Performed By: #### 2 4323-8, 1987-11 #### [facility] CLIA [id number] [address] [place] [address] [place] Glucose [Mass/Vol] 97 mg/dL Normal 74-99 [facility] Comment on above: Order Comment: Mert [place] valle Type: BLOOD SPECIMEN Order[facility] Address: [place] [address] Result Comment: The [place] Diabetes [employer] (ADA) provides guidance for cutoff [...] Standards of Medical Care in Diabetes 2016, [place] [employer]. Diabetes Care. 2016.39(Suppl 1). Performed By: #### 2 4323-8, 1987-11 #### [facility] CLIA [id number] [address] [place] [address] [place] Potassium [Moles/Vol] 4.7 mmol/L Normal 3.7-5.1 [facility] Comment on above: Order Comment: Mert [place] valle Type: BLOOD SPECIMEN Ordering Facility[facility] Address: [place] [address] Performed By: #### 2 43238, 1987-11 #### [facility] CLIA [id number] [address] [place] [address] [place] Protein [Mass/Vol] 7.6 g/dL Normal 6.3-8.0 [facility] Comment on above: Order Comment: Speci men Type: BLOOD SPECIMEN [facility] Address: [address] Performed By: #### 2 43209-29, 1987-11 #### [facility] CLIA [id number] [address] [place] [address] [place] Sodium [Moles/Vol] 140 mmol/L Normal 136-144 [facility] Comment on above: Order Comment: Speci men Type: BLOOD SPECIMEN Order[facility] Address: [address] [place] [address] Performed By: #### 2 43209-29, 1987-11 #### [facility] CLIA [id number] [address] [place] [address] [place] Urea nitrogen [Mass/Vol] 15 mg/dL Normal 7-21 [facility] Comment on above: Order Comment: Speci men Type: BLOOD SPECIMEN Order[facility] Address: [facility] [address] [address] Performed By: #### 2 43238, 1987-11 #### [facility] CLIA [id number] [address] [address] [id number] [place] Albumin [Mass/Vol] 4.6 g/dL 3.9 - 4.9 g/dL [facility] ALP [Catalytic activity/Vol] 44 U/L 34 - 123 U/L [facility] ALT [Catalytic activity/Vol] 32 U/L 7 - 38 U/L [facility] Anion gap [Moles/Vol] 9 mmol/L 9 - 18 mmol/L [facility] AST [Catalytic activity/Vol] 26 U/L 13 - 35 U/L [facility] Bilirubin [Mass/Vol] 0.9 mg/dL 0.2 - 1.3 mg/dL [facility] Calcium [Mass/Vol] 10.5 mg/dL High 8.5 - 10. 2 mg/dL [facility] Chloride [Moles/Vol] 102 mmol/L 97 - 105 mmol/L [facility] CO2 [Moles/Vol] 29 mmol/L 22 - 30 mmol/L [facility] Creatinine [Mass/Vol] 0.93 mg/dL 0.58 - 0.96 mg/dL [facility] Estimated Glomerular Filtration Rate 76 mL/min/1.73m >=60 mL/min/1.73m [facility] Glucose [Mass/Vol] 97 mg/dL 74 - 99 mg/dL [facility] Potassium [Moles/Vol] 4.7 mmol/L 3.7 - 5.1 mmol/L [facility] Protein [Mass/Vol] 7.6 g/dL 6.3 - 8.0 g/dL [facility] Sodium [Moles/Vol] 140 mmol/L 136 - 144 mmol/L [facility] Urea nitrogen [Mass/Vol] 15 mg/dL 7 - 21 mg/dL [facility] ESR Westergren method (Bld) [Velocity]on 08-11-2022 ESR (Bld) [Velocity] 23 mm/h High 0 - 20 mm/hr [facility] ESR (Bld) [Velocity] 23 mm/h High 0-20 [facility] Comment on above: Order Comment: Speci men Type: BLOOD SPECIMEN Ordering Facility: [facility] Address: [address] [place] [address] Performed By: #### 1 761-6 #### [facility] CLIA [id number] [facility] [place] [address] [place] XR elbow RT 2Von 07-30-2022 XR elbow RT 2V [facility] [address] [place] [address] XRay Report Signed Patient: Lynette Hairston MR#: [id number] 46 : 1975 Acct:[id number] Age/Sex: 47 / F ADM Date: 07/30/22 Loc: [facility] Room: Type: [facility] CLI Attending Dr: Jud Monson ASTRONOMY TEACHER-C Copies to: GOLD Degroot Ordering Provider: GOLD [...] PROCESS. Impression dictated by: Jeremie Martines Jr., D.ORaf07/30/2022 12:09 PM Dictation Location: [place] [address] Transcribed By: [facility] 07/30/22 1209 Dictated By: Jeremie Martines Jr, DO 07/30/22 1209 Signed By: 07/30/22 1209 [facility] Orders Onlyon 07-15-2022 Orders Only [id number] Refugio Hairston 1975 F [facility] 07/15/2022 CRISTHIAN MARIE [facility] No family history on file [facility] Orders Onlyon 07-09-2022 Orders Only [id number] Refugio Hairston 1975 F [facility] 07/09/2022 CRISTHIAN MARIE MP [facility] No family history on file [facility] Orders Onlyon 06-28-2022 Orders Only [id number] Refugio Hairston 1975 F [facility] 06/28/2022 CRISTHIAN MARIE MP [facility] No family history on file [facility] 36on 06-24-2022 36 Pt calling wanting t o know what the next steps are now that her labs and stools are back. She will be having [employer] set up for your response to her. [facility] Orders Onlyon 06-16-2022 Orders Only [id number] Refugio Hairston 1975 F Date Provider Department Center 06/16/2022 CRISTHIAN MARIE MP [facility] No family history on file [facility] Orders Onlyon 06-07-2022 Orders Only [id number] Refugio Hairston 1975 Date Provider Department Center 06/07/2022 CRISTHIAN MARIE MP Medical Pavi No family history on file [facility] 36on 05-31-2022 36 Patient called with concerns over her platelets. Patient states that she had labs drawn recently outside of [facility] and her platelets were at 96. Patient is concerned regarding this and is inquiring if there is anything she should do. I explained to the patient that we do not have these results in the system for her, however, she is going to call and have them faxed to us so you can review them. Please advise. [facility] 37on 05-26-2022 37 Take fiber supplemen ts along with plenty of water. Supplements include: Psyllium (sample brand name: Metamucil) Methylcellulose (sample brand name: Citrucel) Calcium polycarbophil (sample brand name: FiberCon) Wheat dextrin (sample brand name: Benefiber) Start slow with ??? Tablespoon every other day, then gradually increase to 1-2 tablespoons/day. [facility] Office Visiton 05-26-2022 Follow-up visit [id number] Refugio Hairston 1975 Provider Department Center 05/26/2022 CRISTHIAN MARIE MP Medical [facility] No family history on file Level of Service:29736 [place] OFFICE/OUTPATIENT ESTABLISHED MOD [facility] 30-39 MIN Reason for Visit and Comments: Diarrhea [35] Follow-up [960525] - Patient states she has randomly lost control of her bowels in the recent weeks. [facility] XR CERVICAL SPINE (2-3 VIEWS )on 02-07-2021 [...] Boubacar Louis MD 02/07/[address] [facility] XR CERVICAL SPINE (2-3 VIEWS )Ordered By: Garfield Restrepo on 02-07-2021 No acute osseous abnormality. [employer] Phone: EXAMINATION: XRAY VIEWS OF THE CERVICAL SPINE 02/07/2021 12:33 pm COMPARISON: None. HISTORY: ORDERING SYSTEM PROVIDED HISTORY: right arm pain TECHNOLOGIST PROVIDED HISTORY: right arm pain Reason for Exam: RUE pain Acuity: Chronic Type of Exam: Initial FINDINGS: Vertebral body height and alignment are maintained. There are minimal degenerative changes. There is no evidence of fracture or malalignment. [employer] Phone: Rashid, Mhpn Incoming Radiant Results From [facility]ER[facility] - 02/07/2021 1:12 PM EDT EXAMINATION: XRAY [...] or malalignment. IMPRESSION: No acute osseous abnormality. [employer] Phone: [employer] Phone: Basic Metab w/rfx MGon 01-19 (cont.) Normal [facility] Comment on above: Result Comment: Aver age GFR for 40-49 years old: 99 mL/min/1.73sq m Chronic Kidney Disease: <60 mL/min/1.73sq m Kidney failure: <15 mL/min/1.73sq m eGFR calculated using average adult body mass. Additional eGFR calculator available at: http://www.[employer]/multiple_crcl_2011.htm Performed By: #### C DP, BMPX #### [place] [address] Records Coordinator: Brady Chan MD Anion gap [Moles/Vol] 8 mmol/L Low 9-17 [facility] Comment on above: Performed By: #### C DP, BMPX #### [place] [address] Records Coordinator: Brady Chan MD Calcium [Mass/Vol] 9.4 mg/dL Normal 8.6-10.4 [facility] Comment on above: Performed By: #### C DP, BMPX #### [place] [address] Records Coordinator: Brady Chan MD Chloride [Moles/Vol] 103 mmol/L Normal 98-107 [facility] Comment on above: Performed By: #### C DP, BMPX #### [place] [address] Records Coordinator: Brady Chan MD CO2 [Moles/Vol] 27 mmol/L Normal 20-31 [facility] Comment on above: Performed By: #### C DP, BMPX #### [place] [address] Records Coordinator: Brady Chan MD Creatinine [Mass/Vol] 0.73 mg/dL Normal 0.50-0.90 [facility] Comment on above: Performed By: #### C DP, BMPX #### [place] [address] Records Coordinator: Brady Chan MD GFR, Amer >60 Normal >60 [facility] Comment on above: Performed By: #### C DP, BMPX #### [place] [address] Records Coordinator: Brady Chan MD GFR,non Amer >60 Normal >60 [facility] Comment on above: Performed By: #### C DP, BMPX #### [address] [address] Records Coordinator: Brady Chan MD Glucose [Mass/Vol] 107 mg/dL High 70-99 [facility] Comment on above: Performed By: #### C DP, BMPX #### [address] [id number] Records Coordinator: Brady Chan MD Potassium [Moles/Vol] 3.8 mmol/L Normal 3.7-5.3 [facility] Comment on above: Performed By: #### C DP, BMPX #### [address] [address] Records Coordinator: Brady Chan MD Sodium [Moles/Vol] 138 mmol/L Normal 135-144 [facility] Comment on above: Performed By: #### C DP, BMPX #### [address] [address] Records Coordinator: Brady Chan MD Urea nitrogen [Mass/Vol] 11 mg/dL Normal 6-20 [facility] Comment on above: Performed By: #### C DP, BMPX #### [address] [id number] Records Coordinator: Brady Chan MD BUN/CRE Ratio NOT REPORTED Normal -20 [facility] Comment on above: Performed By: #### C DP, BMPX #### [address] [id number] Records Coordinator: Brady Chan MD Staging: NOT REPORTED Normal [facility] Comment on above: Performed By: #### C DP, BMPX #### [place] [address] Records Coordinator: Brady Chan MD CBC with Diffon 01-19-2021 Abs. Basophil 0.10 k/uL Normal 0.0-0.2 [facility] Comment on above: Performed By: #### C DP, BMPX #### [place] [address] Records Coordinator: Brady Chan MD Abs.Neutrophil (Seg) 4.30 k/uL Normal 1.8-7.7 [facility] Comment on above: Performed By: #### C DP, BMPX #### [place] [address] Records Coordinator: Brady Chan MD Basophils/100 WBC (Bld) 1 % Normal 0-2 [facility] Comment on above: Performed By: #### C DP, BMPX #### [place] [address] Records Coordinator: Brady Chan MD Eosinophils (Bld) [#/Vol] 0.10 10*3/uL Normal 0.0-0.4 [facility] Comment on above: Performed By: #### C DP, BMPX #### [place] [address] Records Coordinator: Brady Chan MD Eosinophils/100 WBC (Bld) 2 % Normal 1-4 [facility] Comment on above: Performed By: #### C DP, BMPX #### [place] [address] Records Coordinator: Brady Chan MD Erythrocyte distribution width (RBC) [Ratio] 13.0 % Normal 12.5-15.4 [facility] Comment on above: Performed By: #### C DP, BMPX #### [place] [id number] Records Coordinator: Brady Chan MD Hematocrit (Bld) [Volume fraction] 41.3 % Normal 36-46 [facility] Comment on above: Performed By: #### C DP, BMPX #### [place] [id number] Records Coordinator: Brady Chan MD Hemoglobin (Bld) [Mass/Vol] 14.1 g/dL Normal 12.0-16.0 [facility] Comment on above: Performed By: #### C DP, BMPX #### [place] [address] Records Coordinator: Brady Chan MD Lymphocytes (Bld) [#/Vol] 3.10 10*3/uL Normal 1.0-4.8 [facility] Comment on above: Performed By: #### C DP, BMPX #### [place] [id number] Records Coordinator: Brady Chan MD Lymphocytes/100 WBC (Bld) 37 % Normal 24-44 [facility] Comment on above: Performed By: #### C DP, BMPX #### [place] [id number] Records Coordinator: Brady Chan MD MCH (RBC) [Entitic mass] 31.2 pg Normal 26-34 [facility] Comment on above: Performed By: #### C DP, BMPX #### [place] [address] Records Coordinator: Brady Chan MD MCHC (RBC) [Mass/Vol] 34.2 g/dL Normal 31-37 [facility] Comment on above: Performed By: #### C DP, BMPX #### [place] [address] Records Coordinator: Brayd Chan MD MCV (RBC) [Entitic vol] 91.1 fL Normal 80-100 [facility] Comment on above: Performed By: #### C DP, BMPX #### [place] [address] Records Coordinator: Brady Chan MD Monocytes (Bld) [#/Vol] 0.70 10*3/uL Normal 0.1-1.2 [facility] Comment on above: Performed By: #### C DP, BMPX #### [place] [address] Records Coordinator: Brady Chan MD Monocytes/100 WBC (Bld) 8 % Normal 2-11 [facility] Comment on above: Performed By: #### C DP, BMPX #### [place] [address] Records Coordinator: Brady Chan MD Neutrophil (Seg) 52 % Normal 36-66 [facility] Comment on above: Performed By: #### C DP, BMPX #### [place] [address] Records Coordinator: Brady Chan MD Platelet mean volume (Bld) [Entitic vol] 8.4 fL Normal 6.0-12.0 [facility] Comment on above: Performed By: #### C DP, BMPX #### [place] [address] Records Coordinator: Brady Chan MD Platelets (Bld) [#/Vol] 199 10*3/uL Normal 140-450 [facility] Comment on above: Performed By: #### C DP, BMPX #### [place] [address] Records Coordinator: Brady Chan MD RBC (Bld) [#/Vol] 4.54 10*6/uL Normal 4.0-5.2 [facility] Comment on above: Performed By: #### C DP, BMPX #### [place] [address] Records Coordinator: Brady Chan MD WBC (Bld) [#/Vol] 8.2 10*3/uL Normal 3.5-11.0 [facility] Comment on above: Performed By: #### C DP, BMPX #### [place] [address] Records Coordinator: Brady Chan MD Abs.Imm.Granulocyte NOT REPORTED Normal 0.00-0.30 [facility] Comment on above: Performed By: #### C DP, BMPX #### [place] [address] Records Coordinator: Brady Chan MD Auto Diff Performed NOT REPORTED Normal [facility] Comment on above: Performed By: #### C DP, BMPX #### [place] [address] Records Coordinator: Brady Chan MD Immature Granulocyte NOT REPORTED Normal 0 [facility] Comment on above: Performed By: #### C DP, BMPX #### [facility] [address] [place] [address] Records Coordinator: Brady Chan MD NRBC Automated NOT REPORTED Normal [facility] Comment on above: Performed By: #### C DP, BMPX #### [place] [address] Records Coordinator: Brady Chan MD Platelet Estimate NOT REPORTED Normal [facility] Comment on above: Performed By: #### C DP, BMPX #### [place] [address] Records Coordinator: Brady Chan MD RBC morphology finding Nom (Bld) NOT REPORTED Normal [facility] Comment on above: Performed By: #### C DP, BMPX #### [place] [address] Records Coordinator: Brady Chan MD WBC Morphology NOT REPORTED Normal [facility] Comment on above: Performed By: #### C DP, BMPX #### [place] [address] Records Coordinator: Brady Chan MD US DUP LOWER EXTREMITY [...] Gold Honeycutt MD 01/19/[address] [facility] ABDOMEN 1VWon 08-08-2020 ABDOMEN 1VW [facility] Department of Radiology [address] [place] [id number] ======== Patient Name: LYNETTE PRINCE : [...] projections. Electronically signed: Brady Shen. Transcribed by: [id number], User Resident: Electronically Signed by: BRADY SHEN @ 08/08/2020 03:15 PM Normal [facility] Comment on above: Order Comment: pleas e evaluate for fecal over load AFP TUMOR MARKER [id number] AFP TUMOR MARKER 2 ng/mL Normal 0-9 [facility] Comment on above: Result Comment: INTE RPRETIVE INFORMATION: Alpha Fetoprotein Tumor Marker The [facility] [place] [facility] DxI AFP method is used. Results [...] reference intervals for this test in the [employer] [facility] Test Directory ([employer]). Performed By: [facility] [address] [place] [id number] Travel Accommodations Rater: Radha Horton MD ANAon 08-08-2020 Nuclear Ab IF (S) [Titer] <1:40 Normal <1:40,1:40 [facility] Comment on above: Performed By: #### 1 0196, 69[address] #### [facility] [address] [place] [address], [facility] BASIC METABOLIC PANELon 07-25 Calcium [Mass/Vol] 9.3 mg/dL Normal 8.6-10.3 [facility] Comment on above: Performed By: #### 9 9909, [address] #### [facility] [address] [facility] [place] [address], [place] Chloride [Moles/Vol] 104 mmol/L Normal 98-107 [facility] Comment on above: Performed By: #### 9 9908, 227[address] #### [facility] [address] [place] [address], [place] CO2 [Moles/Vol] 25 mmol/L Normal 21-31 [facility] Comment on above: Performed By: #### 9 9908, [address] #### [facility] [address] [place] [address], [place] Creatinine [Mass/Vol] 0.93 mg/dL Normal 0.60-1.20 [facility] Comment on above: Performed By: #### 9 9908, [address] #### [facility] [address] [place] [address], [place] GFR/1.73 sq M predicted among blacks MDRD (S/P/Bld) [Vol rate/Area] mL/min/{1.73_m2} Normal >60 [facility] Comment on above: Performed By: #### 9 9908, 37173 #### [facility] [address] [place] [address], [place] GFR/1.73 sq M predicted among non-blacks MDRD (S/P/Bld) [Vol rate/Area] mL/min/{1.73_m2} Normal >60 [facility] Comment on above: Performed By: #### 9 9908, 36792 #### [facility] [address] [place] [address], [place] Glucose [Mass/Vol] 97 mg/dL Normal 70-100 [facility] Comment on above: Performed By: #### 9 9908, [address] #### [facility] [address] [place] [address], [place] Potassium [Moles/Vol] 3.9 mmol/L Normal 3.5-5.1 [facility] Comment on above: Performed By: #### 9 9908, 79010 #### [facility] [address] Sodium [Moles/Vol] 137 mmol/L Normal 136-145 [facility] Comment on above: Performed By: #### 9 9909, [address] #### [facility] [address] Urea nitrogen [Mass/Vol] 15 mg/dL Normal 7-25 [facility] Comment on above: Performed By: #### 9 9909, 48594 #### [facility] [address] CBC W/DIFFon 08-08-2020 ABS BASOPHILS 0.1 10*3/uL Normal 0.0-0.2 [facility] Comment on above: Performed By: #### 5 0103 #### [facility] [address] ABS IMM GRANS 0.0 10*3/uL Normal 0.0-0.2 [facility] Comment on above: Performed By: #### 5 0103 #### [facility] [address] ABS NEUTROPHILS 4.4 10*3/uL Normal 1.6-7.6 [facility] Comment on above: Performed By: #### 5 0103 #### [facility] [address] Basophils/100 WBC (Bld) 0.9 % Normal 0.0-1.0 [facility] Comment on above: Performed By: #### 5 0103 #### [facility] [address] Eosinophils (Bld) [#/Vol] 0.1 10*3/uL Normal 0.0-0.5 [facility] Comment on above: Performed By: #### 5 0103 #### [facility] [address] [place] [address], [facility] Eosinophils/100 WBC (Bld) 1.1 % Normal 0.0-6.0 [facility] Comment on above: Performed By: #### 5 0103 #### [facility] [address] [place] [address], [facility] Erythrocyte distribution width (RBC) [Ratio] 13.0 % Normal 11.5-15.0 [facility] Comment on above: Performed By: #### 5 0103 #### [facility] [address] [facility] [place] [address], [facility] Hematocrit (Bld) [Volume fraction] 42.8 % Normal 36.0-45.0 [facility] Comment on above: Performed By: #### 5 3 #### [facility] [address] [facility] [place] [address], [facility] Hemoglobin (Bld) [Mass/Vol] 14.7 g/dL Normal 12.0-15.0 [facility] Comment on above: Performed By: #### 5 0103 #### [facility] [address] [facility] [place] [address], [facility] IMMATURE GRANS 0.3 % Normal 0.0-1.0 [facility] Comment on above: Performed By: #### 5 0103 #### [facility] [address] [facility] [place] [address], [facility] Lymphocytes (Bld) [#/Vol] 2.2 10*3/uL Normal 1.2-4.0 [facility] Comment on above: Performed By: #### 5 0103 #### [facility] [address] [facility] [place] [address], [facility] Lymphocytes/100 WBC (Bld) 30.0 % Normal 20.0-45.0 [facility] Comment on above: Performed By: #### 5 0103 #### [facility] [address] MCH (RBC) [Entitic mass] 31.4 pg Normal 27.0-33.0 [facility] Comment on above: Performed By: #### 5 0103 #### [facility] [address] [facility] [address] MCHC (RBC) [Mass/Vol] 34.3 g/dL Normal 32.0-35.0 [facility] Comment on above: Performed By: #### 5 0103 #### [facility] [address] MCV (RBC) [Entitic vol] 91.5 fL Normal 82.0-98.0 [facility] Comment on above: Performed By: #### 5 0103 #### [facility] [address] Monocytes (Bld) [#/Vol] 0.6 10*3/uL Normal 0.1-1.0 [facility] Comment on above: Performed By: #### 5 0103 #### [facility] [address] MONOS 8.6 % Normal 5.0-12.0 [facility] Comment on above: Performed By: #### 5 0103 #### [facility] [address] Neutrophils/100 WBC (Bld) 59.1 % Normal 40.0-72.0 [facility] Comment on above: Performed By: #### 5 0103 #### [facility] [address] Nucleated RBC/100 WBC (Bld) [Ratio] 0 % Normal 0-0 [facility] Comment on above: Performed By: #### 5 3 #### [facility] [address] [facility]. [address] PLAT CNT 163 10*3/uL Normal 150-400 The [facility] Comment on above: Performed By: #### 5 0103 #### [facility] [address] [facility] [place] [address], [facility] RBC (Bld) [#/Vol] 4.68 10*6/uL Normal 3.80-5.00 The [facility] Comment on above: Performed By: #### 5 0103 #### [facility] [address] [facility] [place] [address], [facility] WBC (Bld) [#/Vol] 7.44 10*3/uL Normal 4.00-10.60 [facility] Comment on above: Performed By: #### 5 0103 #### [facility] [address] HEPATITIS A ANTIBODY IGMon 0 08-08-2020 HEP A AB IGM NONREACTIVE Normal NONREACTIVE [facility] Comment on above: Performed By: #### 3 1422, 85193, 97946, 21944 #### [facility] [address] HEPATITIS B CORE ANTIBODYon 08-08-2020 HEP B CORE AB NONREACTIVE Normal NONREACTIVE [facility] Comment on above: Performed By: #### 3 1422, 73002, 87130, 68623 #### [facility] [address] HEPATITIS B SURFACE ANTIGEN QUALon 08-08-2020 HEP B SURF AG QUAL NONREACTIVE Normal NONREACTIVE [facility] Comment on above: Performed By: #### 3 1422, 49025, 65927, 64743 #### [facility] [address] [facility]. [address] HEPATITIS C ANTIBODYon 08-08 ANTI-HCV NONREACTIVE Normal NONREACTIVE [facility] Comment on above: Performed By: #### 3 1422, 72307, 62818, 33564 #### [facility] [address] [place] [address], [place] LIVER BATTERYon 08-08-2020 Albumin [Mass/Vol] 4.5 g/dL Normal 3.5-5.7 [facility] Comment on above: Performed By: #### 9 99, 66764 #### [facility] [address] [place] [address], [place] ALKALINE PHOSPH 37 IU/L Normal 34-104 [facility] Comment on above: Performed By: #### 9 99, 32624 #### [facility] [address] [place] [address], [place] ALT [Catalytic activity/Vol] 56 U/L High 7-52 [facility] Comment on above: Performed By: #### 9 9908, 04233 #### [facility] [address] [place] [address], [place] AST [Catalytic activity/Vol] 38 U/L Normal 13-39 [facility] Comment on above: Performed By: #### 9 9908, 60527 #### [facility] [place] [address] [place] [address], [place] Bilirubin [Mass/Vol] 1.1 mg/dL High 0.3-1.0 [facility] Comment on above: Performed By: #### 9 [id number], [id number] #### [facility] [address] [place] [address], [place] Bilirubin.direct [Mass/Vol] 0.2 mg/dL Normal 0.0-0.2 [facility] Comment on above: Performed By: #### 9 [id number], [id number] #### [facility] [place] [address] [place] [address], [place] Protein [Mass/Vol] 7.5 g/dL Normal 6.0-8.3 [facility] Comment on above: Performed By: #### 9 [id number], [id number] #### [facility] [place] [address] LIVER FIBROSIS CHRONIC VIRAL [id number] 08-08-2020 SAAMW-[id number] IN,FIBROMETER 259 mg/dL Normal 131-293 [facility] ALT [Catalytic activity/Vol] 69 U/L High 5-40 [facility] Amylase [Catalytic activity/Vol] 131 U/L High 7-33 [facility] AST [Catalytic activity/Vol] 54 U/L High 9-40 [facility] Comment on above: Result Comment: This specimen is Hemolyzed. This may cause the results to be falsely increased. CIRRHOMETER PATIENT SCORE 0.12 Normal [facility] EER FIBROMETER REPORT See Note Normal [facility] Comment on above: Result Comment: Acce johnnie [facility] Enhanced Report using the link below: -Direct access: [email or web address] FIBROMETER INTERPRETATION See Report Normal [facility] Comment on above: Result Comment: INTE RPRETIVE INFORMATION: Fibrometer Interpretation Calculations for the final report are based on accurate data for age, gender, and platelet count. If any of this information needs to be corrected, please contact [facility] Client Services to request a recalculation. Client Services may be contacted at . The [employer] FibroMeter profile serves as a surrogate marker [...] developed and its performance characteristics determined by [facility]. It has not been cleared or approved by the US Food and Drug Administration. This test was performed in a CLIA certified laboratory and is intended for clinical purposes. [13] [17] Performed By: [facility] [address] [place] [id number] Travel Accommodations Rater: Radha Horton MD FIBROMETER PLATELET CT 163 k/uL Normal [facility] FIBROMETER PLATELET IND 81 % Low 90-120 [facility] FIBROMETER PLATELET SCORE 0.62 Normal [facility] FIBROSIS METAVIR CLASSIFICATION F2[F1-F3] Normal [facility] Comment on above: Result Comment: INTE [...] possible INFLAMETER METAVIR CLASSIFICATION A1/A2 Normal [facility] Comment on above: Result Comment: INTE RPRETIVE INFORMATION: InflaMeter Metavir Classification InflaMeter (activity score) comments A0/A1 Equal probability between A0 and A1 A1/A2 Equal probability between A1 and A2 A2/A3 Equal probability between A2 and A3 INFLAMETER PATIENT SCORE 0.61 Normal [facility] Urea nitrogen [Mass/Vol] 14 mg/dL Normal 7-20 [facility] MITOCHONDRIAL ABon 1 MITOCHONDRIAL AB SEE [facility] RESULT Abnormal NONE DETECTED [facility] Comment on above: Result Comment: NONE DETECTED LESS THAN 1:20 INTERMEDIATE LEVEL 1:20 - 1:80 (MAY BE PRESENT IN AUTOALLERGIC LIVER DISEASE) ELEVATED LEVEL GREATER THAN OR EQUAL TO 1:160 (STRONGLY SUGGESTIVE OF PRIMARY BILIARY CIRRHOSIS) Performed By: #### 1 0196, [id number] #### [facility] [place] [address] MITOCHONDRIAL M2 ANTIBODY, I [place] [id number] 08-08-2020 MITOCHONDRIAL M2 ANTIBODY IGG 2.1 Units Normal 0.0-24.9 [facility] Comment on above: Result Comment: [...] does not rule out PBC. Performed By: [facility] [address] [place] [address] Travel Accommodations Rater: Radha Horton MD PROTHROMBIN TIMEon 1 INR Coag (PPP) [Relative time] 1.05 {INR} Normal 0.91-1.16 [facility] Comment on above: Result Comment: ACCC P [...] CHEST 1995;[id number]. Performed By: #### 1 0196, [id number] #### [facility] [place] [address] PT Coag (PPP) [Time] 13.7 s Normal 12.3-14.8 [facility] Comment on above: Result Comment: ALL RESULTS MUST BE INTERPRETED WITH RESPECT TO BLOOD DRAWING ARTIFACT OR DILUTION ERROR OF ANTICOAGULANT AT THE TIME OF SAMPLING. Performed By: #### 1 0196, [id number] #### [facility] [place] [address] XR FOOT LEFT (MIN 3 VIEWS)on 04-24-2019 No acute osseous abnormality in the left foot. [employer] EXAMINATION: THREE XRAY VIEWS OF THE LEFT [...] Joint spaces are preserved. No bony erosion. [place] [employer] Rashid, Mhpn Incoming Radiant Results From NERITES/[facility]ice[facility] - 04/24/2019 5:49 PM EDT EXAMINATION: THREE [...] acute osseous abnormality in the left foot. [facility] [place] [place] Large Joint Arthro/Inj: bila teral greater trochanteric bursa injection [facility] Vital Signs Date Time Vital Sign Value Performing Clinician Faci lity 09-02-2023 11:36-0500 Body height 172.1 cm Michael Perkins MD Work Phone: [facility] 09-02-2023 11:36-0500 Body mass index (BMI) [Ratio] 38.6 kg/m2 Michael Perkins MD Work Phone: [facility] 09-02-2023 11:36-0500 Body weight 114.31 kg Michael Perkins MD Work Phone: [facility] 09-02-2023 11:36-0500 Diastolic blood pressure 90 mm[Hg] Michael Perkins MD Work Phone: [facility] 09-02-2023 11:36-0500 Heart rate 107 /min Michael Perkins MD Work Phone: [facility] 09-02-2023 11:36-0500 SaO2% (BldA) [Mass fraction] 94 % Michael Perkins MD Work Phone: [facility] 09-02-2023 11:36-0500 Systolic blood pressure 128 mm[Hg] Michael Perkins MD Work Phone: [facility] 08-05-2023 11:00-0500 Body height 167 cm Cody HURLEY Work Phone: [facility] 08-05-2023 11:00-0500 Body mass index (BMI) [Ratio] 39.39 kg/m2 Cody HENDRICKSONDRAFTER HEATING AND VENTILATING Work Phone: [facility] 08-05-2023 11:00-0500 Body weight 109.86 kg oCdy HURLEY Work Phone: [facility] 08-05-2023 11:00-0500 Diastolic blood pressure 88 mm[Hg] Cody Hutchins APRNBijalDRAFTER HEATING AND VENTILATING Work Phone: [employer] 08-05-2023 11:00-0500 Heart rate 88 /min Cody Hutchins APRN-DRAFTER HEATING AND VENTILATING Work Phone: [facility] 08-05-2023 11:00-0500 Systolic blood pressure 130 mm[Hg] Cody Hutchins APRN-DRAFTER HEATING AND VENTILATING Work Phone: [facility] 07-13-2023 16:15-0500 Body height 167.64 cm Beba Farahmond Other [employer] Other 07-13-2023 16:15-0500 Body mass index (BMI) [Ratio] 39.06 kg/m2 Beba Farahmond Other [employer] Other 07-13-2023 16:15-0500 Body temperature 97.3 [degF] Beba Farahmond Other [employer] Other 07-13-2023 16:15-0500 Body weight 109.77 kg Beba Farahmond Other [employer] Other 07-13-2023 16:15-0500 Diastolic blood pressure 80 mm[Hg] Beba Rossi Other [employer] Other 07-13-2023 16:15-0500 Respiratory rate 18 /min Beba Rossi Other [employer] Other 07-13-2023 16:15-0500 SaO2% (BldA) [Mass fraction] 98 % Beba Rossi Other [employer] Other 07-13-2023 16:15-0500 Systolic blood pressure 120 mm[Hg] Beba Farahmond Other [facility] Egil Kvaleberg Other 06-24-2023 11:38-0500 Body height 167.6 cm Noemi Pham MD Work Phone: [facility] 06-24-2023 11:38-0500 Body weight 108.86 kg Noemi Pham MD Work Phone: [facility] 06-24-2023 11:38-0500 Diastolic blood pressure 77 mm[Hg] Noemi Pham MD Work Phone: [facility] 06-24-2023 11:38-0500 Heart rate 104 /min Noemi Pham MD Work Phone: [facility] 06-24-2023 11:38-0500 Respiratory rate 20 /min Noemi Pham MD Work Phone: [facility] 06-24-2023 11:38-0500 Systolic blood pressure 114 mm[Hg] Noemi Pham MD Work Phone: [facility] 08-11-2022 09:48-0500 Body weight 102.51 kg Noemi Pham MD Work Phone: [facility] 08-11-2022 09:48-0500 Diastolic blood pressure 73 mm[Hg] Noemi Pham MD Work Phone: [facility] 08-11-2022 09:48-0500 Heart rate 94 /min Noemi Pham MD Work Phone: [facility] 08-11-2022 09:48-0500 Systolic blood pressure 118 mm[Hg] Noemi Pham MD Work Phone: [facility] 02-07-2021 11:53-0400 Body mass index (BMI) [Ratio] 37.12 kg/m2 Garfield Restrepo MD [facility] Work Phone: 02-07-2021 11:53-0400 Body temperature 98.4 [degF] Garfield Restrepo MD [facility] Work Phone: 02-07-2021 11:53-0400 Body weight 104.33 kg Garfield Restrepo MD [employer] Phone: 02-07-2021 11:53-0400 Diastolic blood pressure 92 mm[Hg] Garfield Restrepo MD [employer] Phone: 02-07-2021 11:53-0400 Heart rate 108 /min Garfield Restrepo MD [employer] Phone: 02-07-2021 11:53-0400 Respiratory rate 16 /min Garfield Restrepo MD [employer] Phone: 02-07-2021 11:53-0400 SaO2% (BldA) [Mass fraction] 96 % Garfield Restrepo MD [employer] Phone: 02-07-2021 11:53-0400 Systolic blood pressure 122 mm[Hg] Garfield Restrepo MD [employer] Phone: 04-24-2019 15:30-0400 Pulse (Heart Rate) 104 /min [place] 04-24-2019 15:28-0400 BMI (Body Mass Index) 35.51 kg/m2 [place] 04-24-2019 15:28-0400 Body Temperature 98.4 [degF] [place] 04-24-2019 15:28-0400 Body weight 99.79 kg [place] 04-24-2019 15:28-0400 BP Diastolic 81 mm[Hg] [place] 04-24-2019 15:28-0400 BP Systolic 116 mm[Hg] [place] 04-24-2019 15:28-0400 Height 167.6 cm [place] 04-24-2019 15:28-0400 Pulse Oximetry 95 % [place] 04-24-2019 15:28-0400 Respiratory Rate 15 /min [facility], [place] Encounters Encounter Date Encounter Type Care Provider Facility Start: 10-14-2023 End: 10-14-2023 ambulatory DALLAS MEREDITH [facility] Start: 10-14-2023 End: 10-14-2023 ambulatory [facility] Ophth [facility] Comment on above: Retinoschisis, bullo us, bilateral Start: 10-14-2023 End: 10-14-2023 Office outpatient visit 25 minutes Dallas Meredith MD Work Phone: [facility] Comment on above: Retinoschisis, bullo us, bilateral (Primary Dx); High risk medication use; Hypertensive retinopathy of both eyes; Epiretinal membrane (ERM) of both eyes; PVD (posterior vitreous detachment), right eye; Vitreous syneresis of both eyes; Presbyopia; Hx of rheumatoid arthritis Start: 10-13-2023 End: 10-13-2023 ambulatory [facility] Visual Field [facility] Comment on above: High risk medication use (Primary Dx) Start: 09-29-2023 ambulatory Noemi Pham MD Work Phone: Rheumatology Comment on above: Denied mri Start: 09-27-2023 End: 09-28-2023 Emergency department patient visit NASEEM Alvarado LOUISE [facility] Start: 09-27-2023 End: 09-27-2023 Emergency department patient visit TOY Gimenez OBRIEN [facility] Start: 09-26-2023 ambulatory Noemi Pham MD Work [...] above: Pain Start: 09-02-2023 End: 09-02-2023 ambulatory [facility] Start: 09-02-2023 End: 09-02-2023 Office outpatient visit 25 minutes Michael Perkins MD Work Phone: [facility] Comment on above: Primary hypertension (Primary Dx); Coronary artery vasospasm (CMS-HCC); Intermittent palpitations; Obstructive sleep apnea Start: 09-01-2023 Telephone encounter Mei Garcia CMA [facility] Comment on above: Appointment Start: 08-05-2023 End: 08-05-2023 ambulatory [facility] Start: 08-05-2023 End: 08-05-2023 Office outpatient visit 25 minutes [facility] MARRIAGE THERAPIST-DRAFTER HEATING AND VENTILATING Work Phone: [facility] Comment on above: Status migrainosus ( Primary Dx); Migraine without aura and without status migrainosus, not intractable; Cervicalgia; Fibromyalgia; Paresthesias; Trapezius muscle spasm; Vertigo Start: 08-03-2023 Telephone encounter [facility] Start: 07-21-2023 End: 07-21-2023 ambulatory Betty Moreau Other [employer] Other Start: 07-21-2023 Telephone encounter Naz Vasques [facility] Comment on above: Headache Start: 07-13-2023 End: 07-13-2023 ambulatory Beba Richey Other [employer] Other Start: 07-13-2023 Office outpatient vi sit 15 minutes Beba Richey [facility] Start: 06-24-2023 End: 06-25-2023 ambulatory TOY OBRIEN Facility:[facility] Start: 06-24-2023 End: 06-24-2023 ambulatory TOY OBRIEN Facility:[facility] Start: 06-24-2023 End: 06-24-2023 Subsequent hospital visit by physician [facility] Work Phone: [facility] General Comment on above: Pain in joint, multi ple sites [M25.50] Start: 06-24-2023 End: 06-24-2023 Patient encounter procedure Noemi Pham MD Work Phone: Rheumatology Comment on above: Pain in joint, multi ple sites (Primary Dx); Trochanteric bursitis of both hips Start: 05-27-2023 End: 05-27-2023 ambulatory Jud Monson Other [employer] Other Start: 05-27-2023 Office outpatient vi sit 25 minutes Jud Monson [facility] Start: 05-12-2023 Telephone encounter Noemi perez MD Work Phone: Rheumatology Comment on above: Medication Problem Start: 03-21-2023 End: 03-22-2023 ambulatory [facility] Start: 03-09-2023 Telephone encounter Noemi perez MD Work Phone: Rheumatology Start: 01-28-2023 Telephone encounter Noemi perez MD Work Phone: Rheumatology Comment on above: Orders Start: 01-26-2023 ambulatory Noemi Pham MD Work Phone: Rheumatology Comment on above: results of blood wor k Start: 01-26-2023 E-mail encounter fro m caregiver Noemi Pham MD Work Phone: [facility] Start: 01-14-2023 End: 01-15-2023 ambulatory TOY OBRIEN Facility[facility] Start: 01-11-2023 Refill Noemi Pham MD Work Phone: Rheumatology Comment on above: Refill Request Start: 12-24-2022 End: 12-24-2022 ambulatory TOY OBRIEN Neurology Start: 12-24-2022 End: 12-24-2022 Patient encounter procedure Emg 3 Neur Main (Max Weight: 1000) Work Phone: [facility] Start: 12-17-2022 End: 12-17-[address] [facility] Start: 12-13-2022 End: 12-18-[address] [facility] Start: 12-01-2022 Telephone encounter Noemi perez [...] Refill Request Start: 09-08-2022 End: 09-08-2022 ambulatory [facility] Start: 09-08-2022 End: 09-08-2022 ambulatory [facility] Start: 08-11-2022 End: 08-12-2022 [facility]ulatory [facility] Start: 08-11-2022 End: 08-11-2022 Patient encounter procedure Noemi Pham MD Work Phone: Rheumatology Comment on above: Rheumatoid arthritis involving multiple sites, unspecified whether rheumatoid factor present (HCC) (Primary Dx) Start: 07-30-2022 End: 07-30-2022 ambulatory Jud Monson Facility:[facility] Start: 07-30-2022 End: 07-30-2022 ambulatory ASTRONOMY TEACHER-C Jud Monson Work Phone: [facility] Work Phone: Start: 07-30-2022 End: 07-30-2022 Patient encounter procedure ASTRONOMY TEACHER-C Jud De Los Santosney Work Phone: [facility] Start: 06-04-2022 Telephone encounter Noemi perez MD Work Phone: Rheumatology Comment on above: Insurance Authorizat ion Start: 06-02-2022 ambulatory Noemi Pham MD Work Phone: Rheumatology Comment on above: Ankle pain Start: 05-29-2022 Refill Noemi Pham MD Work Phone: Rheumatology Comment on above: Refill Request Start: 05-26-2022 End: 05-26-2022 ambulatory [facility] Start: 05-17-2022 Telephone encounter Noemi perez MD Work Phone: [address] [place] [address] Comment on above: Patient Question Start: 12-29-2021 Telephone encounter Noemi perez MD Work Phone: Rheumatology Comment on above: Patient Request Start: 10-27-2021 ambulatory Noemi Pham MD Work Phone: Rheumatology Comment on above: Handicap plaquered Start: 07-22-2021 End: 07-25-2021 ambulatory BLANCA Rajiv [facility] Start: 07-03-2021 End: 07-06-2021 ambulatory BLANCA Rajiv [facility] Start: 02-07-2021 End: 02-07-2021 Emergency department patient visit BRISTOL Ammy [facility] Start: 02-07-2021 End: 02-07-2021 Emergency department patient visit Garfield Restrepo MD [facility] ED Comment on above: Neuropathic pain (Pr imary Dx) Start: 01-19-2021 End: 01-19-2021 Emergency department patient visit TOY OBRIEN [facility] Start: 05-20-2020 End: 05-20-2020 Subsequent hospital visit by physician Zackary Garcia STCheri [facility] Comment on above: Canceled (Patient no show) Start: 05-16-2020 End: 05-16-2020 Subsequent hospital visit by physician Glory CAMARGO [facility] Comment on above: Canceled (Patient) Start: 05-14-2020 End: 05-14-2020 Subsequent hospital visit by physician Sander AREVALO [facility] Start: 04-24-2019 End: 04-24-2019 Emergency department patient visit Gold Graves Work Phone: [facility] ED Comment on above: Sprain of left foot, initial encounter (Primary Dx) Procedures Date Procedure Procedure Detail Performing Clinician Start: 10-14-2023 End: 10-14-2023 Computerized ophthalmic imaging retina Dallas Meredith MD Work Phone: Start: 09-02-2023 Ecg routine ecg w/least 12 [...] Start: 07-30-2022 Plain X-ray of right elbow ASTRONOMY TEACHER-C Jud Monson Work Phone: Start: 07-24-2021 Lipid [...] Start: 09-26-2019 H/O: hysterectomy History of hysterectomy Nazrandy Mckeontz Start: 04-24-2019 Radex foot complete minimum 3 views Jud Divyalisa Work Phone: Plan of Treatment Date Care Activity Detail Author Start: 07-24-2026 Lipid 1996 panel - S blanca or Plasma Lipid Screening [facility] Start: 07-24-2026 Lipid panel Lipid Screening [facility] Start: 07-24-2026 LIPID SCREEN LIPID SCREEN [facility] Start: 06-24-2026 Diabetes Screening [facility] Start: 11-08-2025 DIABETES SCREEN DIABETES SCREEN [facility] Start: 11-08-2025 Diabetes Screening [facility] Start: 08-11-2025 DIABETES SCREEN DIABETES SCREEN [facility] Start: 10-13-2024 Tobacco Screening Tobacco Screening [facility] Start: 09-02-2024 Adult BMI Screening Adult BMI Screen ing [facility] Start: 09-02-2024 Tobacco Screening Tobacco Screening [facility] Start: 08-05-2024 Adult BMI Screening Adult BMI Screen ing [facility] Start: 08-05-2024 Tobacco Screening Tobacco Screening [facility] Start: 05-13-2024 Glaucoma screening Diabetic Op hthalmology Exam [facility] Start: 05-13-2024 Tobacco Screening Tobacco Screening [facility] Start: 05-12-2024 Adult BMI Screening Adult BMI Screen ing [facility] Start: 04-20-2024 End: 04-20-2024 Patient encounter procedure 04/20/2024 9:30 AM EDT Office Visit [facility] [address] [place] [address] Dallas Meredith MD [address] [place] [address] [facility] Start: 12-18-2023 Colonoscopy COLONOSCOPY [facility] Start: 12-18-2023 COLORECTAL CANCER SCREENING COLORECTAL CANCER SCREENING [facility] Start: 12-18-2023 Screening for malign ant neoplasm of colon [facility] Start: 11-11-2023 End: 11-11-2023 Patient encounter procedure 11/11/2023 11:00 AM EDT Office Visit [facility] [address] [place] [address] Cody Hutchins APRNDRAFTER HEATING AND VENTILATING [address] [place] [address] [facility] Start: 10-28-2023 End: 10-28-2023 Patient encounter procedure 10/28/2023 9:00 AM EDT Office Visit [facility] [address] [place] [address] Cody Hutchins APRNDRAFTER HEATING AND VENTILATING [address] [place] [id number] [facility] Start: 10-14-2023 End: 10-14-2023 Patient encounter procedure 10/14/2023 1:10 PM EDT Office Visit [facility] [address] [place] [address] Dallas Meredith MD [address] [place] [address] [facility] Start: 09-30-2023 End: 09-30-2023 Patient encounter procedure [facility] Start: 09-30-2023 End: 09-30-2023 ambulatory 09/30/2023 9:30 AM EST Ophthalmology Imaging [facility] [address] [place] [address] [facility] Start: 09-16-2023 End: 09-16-2023 Patient encounter procedure 09/16/2023 10:30 AM EST Office Visit [facility] [address] [place] [address] Dallas Meredith MD [address] [place] [address] [facility] Start: 09-06-2023 Depression Screening Depression [facility] Start: 09-02-2023 End: 09-02-2023 Patient encounter procedure [facility] Start: 08-05-2023 End: 08-05-2023 Patient encounter procedure 08/05/2023 11:30 AM EST Office Visit [facility] [address] [place] [address] Cody Hutchins APRN-DRAFTER HEATING AND VENTILATING [address] [place] [address] [facility] Start: 07-25-2023 Depression Assessment Depression Ass essment [facility] Start: 05-16-2023 DIABETES SCREEN DIABETES SCREEN [facility] Start: 03-25-2023 Covid-19 Vaccine ( season) Covid-19 Vaccine ( season) [facility] Start: 03-25-2023 Influenza vaccination C [facility] Start: 01-26-2023 End: 03-28-2023 Extractable nuclear Ab panel - Serum ANTI LEVY ID Lab Routine Rheumatoid arthritis involving multiple sites, unspecified whether rheumatoid factor present (HCC) Expected: 01/26/2023, Expires: 03/28/2023 [facility] Work Phone: Comment on above: Expected: 01/26/2023 , Expires: 03/28/2023 Start: 10-27-2022 End: 12-27-2022 Aldolase [Enzymatic activity/volume] in Serum or Plasma ALDOLASE BLD Lab Routine Myalgia Expected: 10/27/2022, Expires: 12/27/2022 [facility] Work Phone: Comment on above: Expected: 10/27/2022 , Expires: 12/27/2022 Start: 10-27-2022 End: 12-27-2022 Creatine kinase [Enzymatic activity/volume] in Serum or Plasma CK CREATINE KINASE Lab Routine Myalgia Expected: 10/27/2022, Expires: 12/27/2022 [facility] Work Phone: Comment on above: Expected: 10/27/2022 , Expires: 12/27/2022 Start: 08-11-2022 End: 10-11-2022 Aldolase [Enzymatic activity/volume] in Serum or Plasma [facility] Work Phone: Comment on above: Expected: 08/11/2022 , Expires: 10/11/2022 Start: 07-25-2022 DEPRESSION ASSESSMENT DEPRESSION ASS ESSMENT [facility] Start: 03-25-2022 Influenza vaccination INFLUENZA (#1) [facility] Start: 03-19-2022 Adult depression screening assessment DEPRESSION SCREENING [facility] Start: 01-27-2022 DTaP,Tdap and Td Vaccines (2 - Td or Tdap) DTaP,Tdap and Td Vaccines (2 - Td or Tdap) [facility] Start: 01-27-2022 DTaP/Tdap/Td vaccine (2 - Td or Tdap) DTaP/Tdap/Td vaccine (2 - Td or Tdap) [facility] Work Phone: Start: 01-27-2022 DTaP/Tdap/Td vaccine (2 - Td) DTaP/Tdap/Td vaccine (2 - Td) [facility], [place] Start: 01-27-2022 Urine microalbumin profile DTaP,Tdap,Td Vaccine (2 - Td or Tdap) [facility] Start: 07-25-2021 DEPRESSION ASSESSMENT DEPRESSION ASS ESSMENT [facility] Start: 03-25-2021 Influenza vaccination Flu vaccine (# 1) [employer] Work Phone: Start: 01-12-2021 COVID-19 VACCINE (3 - Booster for Pfizer series) COVID-19 VACCINE (3 - Booster for Pfizer series) [facility] Start: 01-12-2021 COVID-19 VACCINE (3 - Pfizer series) COVID-19 VACCINE (3 - Pfizer series) [facility] Start: 12-15-2020 COVID-19 VACCINE (3 - Pfizer risk 4-dose series) COVID-19 VACCINE (3 - Pfizer risk 4-dose series) [facility] Start: 12-15-2020 COVID-19 VACCINE (3 - Pfizer risk series) COVID-19 VACCINE (3 - Pfizer risk series) [facility] Start: 2020 COLOGUARD (FIT-DNA) COLOGUARD (FIT-D NA) [facility] Start: 2020 Colonoscopy COLONOSCOPY [facility] Start: 2020 COLORECTAL CANCER SCREENING COLORECTAL CANCER SCREENING [facility] Start: [address] COLONOGRAPHY [facility] Start: 2020 FECAL OCCULT BLOOD FECAL OCCULT BLOO D [facility] Start: 2020 Screening for malign ant neoplasm of colon [facility] Start: 2020 SIGMOIDOSCOPY SIGMOIDOSCOPY [facility] Start: 05-29-2020 End: 05-29-2020 Appointment 05/29/2020 Appointment Physical Therapy Jeremie Barnett PTA [facility] Start: 05-28-2020 End: 05-28-2020 Appointment 05/28/2020 Appointment Physical Therapy Jeremie Barnett PTA [facility] Start: 05-23-2020 End: 05-23-2020 Appointment 05/23/2020 Appointment Physical Therapy Glory Ortiz TICK INSPECTOR [facility] Start: 05-20-2020 End: 05-20-2020 Appointment [facility] Start: 05-16-2020 End: 05-16-2020 Appointment 05/16/2020 Appointment Physical Therapy Glory Ortiz TICK INSPECTOR [facility] Start: 03-25-2020 Influenza vaccination Flu vaccine (# 1) [employer] [facility], [place] Start: 03-25-2019 Influenza vaccination Flu vaccine (# 1) [place], [place] Start: 2015 Diabetes screen Diabetes screen [facility] Phone: Start: 2015 Lipid panel Lipid screen [place] [place], [place] Start: 2015 Lipid screen Lipid screen [place], [place] Start: [address] [facility] Start: 2015 Screening for malign ant neoplasm of breast Mammogram Screening [facility] Start: 2005 HPV TESTING HPV TESTING [facility] Start: 2005 Screening for malign ant neoplasm of cervix HPV Testing [facility] Start: 1996 Cervical cancer screen Cervical canc er screen [place], [place] Start: 1996 PAP TESTING PAP TESTING [facility] Start: 1996 Screening for malign ant neoplasm of cervix [facility] Start: 1994 SHINGRIX VACCINE (1 of 2) SHINGRIX VACCINE (1 of 2) [facility] Start: 1994 Urine microalbumin profile [facility] Start: 1993 Adult BMI Follow Up Plan Adult BMI Follow Up Plan [facility] Start: 1993 Diabetic foot examination Diabetic Foot Exam [facility] Start: 1993 HIV SCREENING HIV SCREENING [facility] Start: 1993 HIV screening HIV Screening [facility] Start: 1990 [facility] screen [facility] [place] Start: 1990 HIV screening HIV screen Eboni Connolly [place], [place] Start: 1981 PNEUMOCOCCAL (1 - PCV) PNEUMOCOCCAL (1 - PCV) [facility] Start: 1981 Pneumococcal vaccination [facility] Start: 1975 Hepatitis C screening Hepatitis C sc rita [facility] [employer] Phone: End: 11-24-2023 EMG(NEURO/NI) EMG(NEURO/NI) EMG Routine Fatigue, unspecified type Elevated aldolase level Generalized weakness 1 Occurrences starting 11/23/2022 until 11/24/2023 [facility] Work Phone: Comment on above: 1 Occurrences starti ng 11/23/2022 until 11/24/2023 End: 10-12-2024 [facility] Visual Field - OU - Both Eyes [facility] - OU - Both Eyes Ophthalmology Routine High risk medication use 1 Occurrences starting 10/13/2023 until 10/12/2024 [facility] Work Phone: Comment on above: 1 Occurrences starti ng 10/13/2023 until 10/12/2024 Carter Visual Fiel d - OU - Both Eyes [facility] - OU - Both Eyes Ophthalmology Routine High risk medication use 10/13/2023 1:11 PM EDT [facility] [employer] [facility] End: 10-20-2024 MR Lumbar spine WO contrast MRI LUMBAR SPINE WO IVCON Radiology Routine Spinal stenosis of lumbar region with neurogenic claudication 1 Occurrences starting 09/21/2023 until 10/20/2024 [facility] Work Phone: Comment on above: 1 Occurrences starti ng 09/21/2023 until 10/20/2024 End: 10-18-2024 XR Lumbar spine 3 Views XR LUMBAR GENERAL 3V AP/LAT/L5-S1 Radiology Routine Chronic bilateral low back pain without sciatica 1 Occurrences starting 09/19/2023 until 10/18/2024 [facility] Work Phone: Comment on above: 1 Occurrences starti ng 09/19/2023 until 10/18/2024 [facility] Immunizations Immunization Date Immunization Notes Care Provider Fa cili 04-23-2021 influenza virus vacc ine, unspecified formulation Noemi Pham MD Work Phone: [facility] Payers Date Payer Category Payer Self-pay 2021 Unknown MMO MMO [employer] [id number] 2021-Present [phone] [address] [place] [address] PPO [id number] 2021 Unknown [id number] 2021 Medicare [id number] 2021 Unknown [id number] .[id number] 2020 Unknown [id number] .[id number] 2015 Unknown ON LICENSE OF [facility] xxxxxxxxxxxx 2015-Present [phone] [address] [place] [address] xxxxxxxxxxxx [id number] [id number] 2003 Medicaid [place] [employer] [employer] [id number] 2003-Present [phone] [facility] [place] [address] Medicaid [id number] .[id number] 2003 Medicaid [id number] [id number] .[id number] 2003 Unknown [id number] [id number].3 .[id number] 1975 Unknown [id number] 2.16.840.1.022214.3.579.2.175 1975 Unknown [id number] 2.16.840.1.665714.3.579.2.175 1975 Unknown [id number] 2.16.840.1.189754.3.579.2.175 1975 Unknown [id number] 2.16.840.1.221372.3.579.2.175 1975 Unknown [id number] 2.16.840.1.193965.3.579.2.176 1975 Unknown [id number] 2.16.840.1.504039.3.579.2.176 1975 Unknown [id number] 2.16.840.1.260133.3.579.2.176 1975 Unknown [id number] 2.16.840.1.072327.3.579.2.128 6 1975 Unknown [id number] 2.16.840.1.222181.3.579.2.128 6 1975 Unknown [id number] 2.16.840.1.801730.3.579.2.128 6 1975 Unknown [id number] 2.16.840.1.268577.3.579.2.128 6 1975 Unknown [id number] 2.16.840.1.007165.3.579.2.128 6 1975 Unknown [id number] 2.16.840.1.003993.3.579.2.128 6 1975 Unknown [id number] 2.16.840.1.936378.3.579.2.128 6 1975 Unknown [id number] 2.16.840.1.898198.3.579.2.128 6 1975 Unknown [id number] 2.16.840.1.281138.3.579.2.128 6 Unknown [id number] 2.16.840.1.559231.3.579.2.531 Social History Date Type Detail Facility Start: 06-18-2018 End: 10-14-2021 Tobacco smoking status NDIS Never smoker [facility] Start: 06-18-2018 End: 10-14-2021 Tobacco use and exposure Never used [place], [place] Start: 06-18-2018 End: 10-14-2023 Alcohol intake Current drinker of alcohol (finding) [place] Start: 08-28-2017 Alcohol Comment social [place], [place] Start: 1975 Sex Assigned At Not on file [facility] Start: 06-18-2018 End: 08-05-2020 Alcohol intake Yes [facility] Start: 12-14-2022 End: 12-24-2022 Exposure to SARS-CoV-2 (event) Not sure [facility] Start: 10-26-2018 History SDOH Alcohol Comment Occasional [facility] Start: 1975 Sex Assigned At Female F [facility] Start: 08-05-2020 End: 01-14-2023 History of Social function [facility] National Score (1-10 0), lower number is lower risk [address] [facility] Start: 08-14-2019 Alcohol Comment occasional [facility] Start: 09-06-2022 Gender identity Identifies as female gender (finding) [facility] Start: 09-06-2022 Sexual orientation Heterosexual (fin ding) [facility] Clinical Notes 10-28-2021 to 10-14-2023 Dallas Meredith MD - 10/14/2023 1:10 PM EDTTelephone Encounter - Inocencia Bui LPN - 09/29/2023 2:39 PM ESTTelephone Encounter - Inocencia Bui LPN - 09/26/2023 3:28 PM ESTPatient Instructions Note Date & Type Note Facility 10-14-2023 Note Right Eye Quality was good. Scan locations included subfoveal. Progression has been stable. Findings include epiretinal membrane, normal inner segment / outer segment layer. Plan: Observe & monitor, Reviewed testing with the patient. Did not discuss intraocular antivegf. Did not discuss intraocular steroid implant. Follow up actions include continue present management. Left Eye Quality was good. Scan locations included subfoveal. Progression has been stable. Findings include epiretinal membrane, normal inner segment / outer segment layer. Plan: Observe & monitor, Reviewed testing with the patient. Did not discuss intraocular antivegf. Did not discuss intraocular steroid implant. Follow up actions include continue present management. MANUALLY TRANSCRIBED RESULTS 10-14-2023 Note Right Eye Quality was good. Scan locations included subfoveal. Progression has been stable. Findings include epiretinal membrane, normal inner segment / outer segment layer. Plan: Observe & monitor, Reviewed testing with the patient. Did not discuss intraocular antivegf. Did not discuss intraocular steroid implant. Follow up actions include continue present management. Left Eye Quality was good. Scan locations included subfoveal. Progression has been stable. Findings include epiretinal membrane, normal inner segment / outer segment layer. Plan: Observe & monitor, Reviewed testing with the patient. Did not discuss intraocular antivegf. Did not discuss intraocular steroid implant. Follow up actions include continue present management. MANUALLY TRANSCRIBED RESULTS 10-14-2023 Note Right Eye Progression has no prior data. Disc findings include normal observations. Macula findings include epiretinal membrane. Did not discuss intraocular antivegf. Did not discuss intraocular steroid implant. Follow up actions include observe and monitor, reviewed testing with the patient, continue present management. Left Eye Disc findings include normal observations. Macula findings include epiretinal membrane. Did not discuss intraocular antivegf. Did not discuss intraocular steroid implant. Follow up actions include observe and monitor, reviewed testing with the patient, continue present management. Notes Peripheral Schisis OU MANUALLY TRANSCRIBED RESULTS 10-14-2023 Note Right Eye Progression has no prior data. Disc findings include normal observations. Macula findings include epiretinal membrane. Did not discuss intraocular antivegf. Did not discuss intraocular steroid implant. Follow up actions include observe and monitor, reviewed testing with the patient, continue present management. Left Eye Disc findings include normal observations. Macula findings include epiretinal membrane. Did not discuss intraocular antivegf. Did not discuss intraocular steroid implant. Follow up actions include observe and monitor, reviewed testing with the patient, continue present management. 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 The patient was cautioned to call immediately if they experience a substantial change in their symptoms such as an increase in floaters, persistent flashes, or a shadow or curtain, or decrease in visual acuity as these may indicate a retinal tear or detachment. Refractive Error BOTH EYES - mgmt per Dr. Wilder Epiretinal Membrane both eyes -Discussed with the patient the criteria for surgical intervention including decreased visual acuity, membrane size and growth rate; and noticed visual change. -Patient is not noticing any activity limitations. -Patient is instructed to contact the office and return sooner if any visual change is noted. RTC in 6 months DFE/OCT, discussed slight increased risk of RD. Patient verbalized understanding and agrees with plan as outlined above. Scribe for and in the presence of Dallas Meredith MD by Gabriela Jane 10/14/23 documented in this encounter [facility] 09-29-2023 Miscellaneous Notes Denial paperwork received. Placed on Dr. Pham's desk for review. documented in this encounter [facility] 09-26-2023 Miscellaneous Notes Office notes faxed to [facility] per patient request. documented in this encounter [facility] 09-23-2023 Miscellaneous Notes MRI faxed via [employer]. documented in this encounter [facility] 09-22-2023 Miscellaneous Notes Received back with signature from Dr. Pham and faxed to [phone] per Patients request. Printed and placed on Dr. Pham's desk for signature. Patient is calling today to request her MRI of the Lumbar spine be printed and signed and faxed over to [facility] at: [phone]. Please call and advise when this is done so she can get this scheduled. Patient has been identified by name and birthdate. Duration of symptoms: N/A Person calling: self Call patient at: at home [phone] (home) [phone] (cell) Was an appointment scheduled: No Closing statement: Results or non-symptom based questions: Thank you for calling [facility], your call will be returned within the next business day. Abby Nassar documented in this encounter [facility] 09-21-2023 Miscellaneous Notes Order for MRI of lumbar spine placed, please call patient to schedule. Noemi Pham MD documented in this encounter [facility] 09-21-2023 Miscellaneous Notes Received fax from [facility]. X-ray results XR lumbar spine. One copy given to Dr. Pham and one copy sent to scanning documented in this encounter [facility] 09-20-2023 Miscellaneous Notes Faxed x-ray orders to both fax numbers as requested by patient. Faxed via [employer]. Patient called to check on status regarding fax. Also requested the order to be faxed to [phone]. Please call patient once order is faxed. Called and spoke with pt. She states it is the R-Hip. She needs us to fax orders to [facility] [phone]. Yes I can order xray of hip [...] for any orders to be faxed to [facility] documented in this encounter [facility] 09-02-2023 History of Present illness Narrative [...] of stress. 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 Past Medical History: Diagnosis Date Anxiety Asthma Autoimmune disease ([facility]) 09/26/2019 Chronic rheumatic arthritis ([facility]) Depression Diabetes mellitus ([facility]) Fibromyalgia GERD (gastroesophageal reflux disease) HLD (hyperlipidemia) HTN (hypertension) HTN (hypertension) 09/22/2021 Hypothyroidism Migraine Moderate mitral regurgitation Obstructive sleep apnea syndrome 02/12/2020 POTS (postural orthostatic tachycardia syndrome) RA (rheumatoid arthritis) ([facility]) Syncope TOS (thoracic outlet syndrome) No data recorded No data recorded No data recorded Past Surgical History: Procedure Laterality Date ADENOIDECTOMY APPENDECTOMY BLADDER SUSPENSION Cardiac catheterization - CORS + LV GRAM/PRESS (41061) Left 10/08/2021 Performed by Ana María Plasencia MD at [facility] CARDIAC CATH LABS CHOLECYSTECTOMY ENDOMETRIAL BIOPSY [...] - POCT EKG 2. Coronary artery vasospasm ([facility]) 3. Intermittent palpitations Assessment: Coronary vasospasm; [facility] 09/2021: Minimal CAD, spasm in the [...] OBRIEN MD Referring Physician: Toy Obrien MD [facility] [place] [address] Referral and perts faxed to Pulmonology . documented in this encounter [facility] 09-01-2023 Miscellaneous Notes Left message for patient to remind them to bring their most current medication list with them to their appointment. documented in this encounter [facility] 09-01-2023 Telephone encounter Note Left message for patient to remind them to bring their most current medication list with them to their appointment. [facility] 08-05-2023 History of Present illness Narrative Subjective: Patient ID: Lyntete Hairston is a 48 y.o. female presenting [...] Norflex does not help. She sees a librarian assistant for rheumatoid arthritis (Plaquenil) and fibromyalgia. Sleep/Social History: She complains of [...] her neck and shoulder muscles. She sees Cnorad Garcia DC in [place] for her director of healthcare systems. She would like to start a preventative [...] History: Diagnosis Date Anxiety Asthma Autoimmune disease ([facility]) 09/26/2019 Chronic rheumatic arthritis ([facility]) Depression Diabetes mellitus ([facility]) Fibromyalgia GERD (gastroesophageal reflux disease) HLD (hyperlipidemia) HTN (hypertension) HTN (hypertension) 09/22/2021 Hypothyroidism Migraine Moderate mitral regurgitation Obstructive sleep apnea syndrome 02/12/2020 POTS (postural orthostatic tachycardia syndrome) RA (rheumatoid arthritis) ([facility]) Syncope TOS (thoracic outlet syndrome) Past Surgical History: Procedure Laterality Date ADENOIDECTOMY APPENDECTOMY BLADDER SUSPENSION Cardiac catheterization - CORS + LV GRAM/PRESS (88420) Left 10/08/2021 Performed by Ana María Plasencia MD at [facility] CARDIAC CATH LABS CHOLECYSTECTOMY ENDOMETRIAL BIOPSY [...] muscles. She sees Conrad Garcia DC in [place] for her director of healthcare systems. She would like to start a preventative [...] procedures Referring and communicating with other health home care liaison (not separately reported) Documenting clinical information in the electronic or other health record Care coordination (not separately reported) - Cody Hutchins DNP, [facility] 08/05/23 12:01 PM [facility] 08/05/23 1202 documented in this encounter [employer] 08-05-2023 Instructions MEI [place]ona - 08/05/2023 11:30 [...] --exercise bicycle pedals documented in this encounter [employer] 08-03-2023 Miscellaneous Notes Patient contacted our office requesting a sooner appt. Patient just started a new job and is off every other Tuesday and she is off this Tuesday. Senior Web Services Developer looked and there are no appts available [...] can add 100 mg in the morning. Senior Web Services Developer called pt. And left a message for her to call the office back to discuss her medication dosage question. Received call today 08/04/23 9:22 from patient who is requesting a call back in regard to previous message. Please call back and advise, callback#: [phone]. Senior Web Services Developer spoke with pt. Senior Web Services Developer told pt about the med dosage per Cody Hutchins and pt stated she understood. Pt also stated she is in so much pain asking for a migraine cocktail so she was added to schedule tomorrow 08/05/23. documented in this encounter [employer] 08-03-2023 Telephone encounter Note Patient contacted our office requesting a sooner appt. Patient just started a new job and is off every other Tuesday and she is off this Tuesday. Senior Web Services Developer looked and there are no appts available [...] get her a sooner appt. Please advise. [employer] [facility] 08-03-2023 Telephone encounter Note Meron: when you are doing reminder calls for 08/05/2023, if anyone wants to cancel, please contact Lynette and put her on the schedule Clinical: If she is taking 100 mg of zonisamide each evening, she can increase her dose to 200 mg (two of the 100 mg capsules) each evening. [employer] 08-03-2023 Telephone encounter Note Patient is already taking 200 mg of the Zonisamide nightly. Please advise. [email or web address] 08-03-2023 Telephone encounter Note She can add 100 mg in the morning. [email or web address] 08-03-2023 Telephone encounter Note Senior Web Services Developer called pt. And left a message for her to call the office back to discuss her medication dosage question. [email or web address] 08-03-2023 Telephone encounter Note Received call today 08/04/23 9:22 from patient who is requesting a call back in regard to previous message. Please call back and advise, callback#: [phone]. [email or web address] 08-03-2023 Telephone encounter Note Senior Web Services Developer spoke with pt. Senior Web Services Developer told pt about the med dosage per Cody Hutchins and pt stated she understood. Pt also stated she is in so much pain asking for a migraine cocktail so she was added to schedule tomorrow 08/05/23. [employer] [facility] 07-21-2023 Miscellaneous Notes 1) When did the [...] requesting a call back to further discuss [phone]. Thank you so much She can increase the zonisamide to 200 mg (2 of the 100 mg capsules) each evening. Patient returned phone call. Senior Web Services Developer informed her of Cody Hutchins's message below. She voiced understanding. documented in this encounter [facility] 07-21-2023 Telephone encounter Note 1) When did [...] requesting a call back to further discuss [phone]. Thank you so much [facility] 07-21-2023 Telephone encounter Note She can increase the zonisamide to 200 mg (2 of the 100 mg capsules) each evening. [facility] 07-21-2023 Telephone encounter Note Patient returned phone call. Senior Web Services Developer informed her of Cody Hutchins's message below. She voiced understanding. [facility] 07-13-2023 Evaluation note Encounter Date Diagnosis [...] unspecified otitis media type (ICD-10 - H66.91) [employer] Other 12-01-2023 NoteHNO ID: [id number] Author: Chato Chacko RT(R) Service: Radiology Author [...] PERIPHERAL IV DATA: Not applicable SIGNED BY: Chato Chacko, RT(R) June 24, 2023 12:47 [facility] NoteHNO ID: [id number] Author: Noemi Pham MD Service: ? Author [...] bursa injection Informed Consent Consent Obtained: Verbal [place] Protocol A moment to CARE was completed. [...] F/U: 6m Check following: -none Noemi Pham, [facility]12-01-2023 History of Present illness Narrative* Chato [...] PERIPHERAL IV DATA: Not applicable SIGNED BY: Chato Chacko RT(R) June 24, 2023 12:47 PM documented in this encounter[facility]12[facility] History of Present illness Narrative* Noemi [...] bursa injection Informed Consent Consent Obtained: Verbal [place] Protocol A moment to CARE was completed. [...] -none Noemi Pham MD documented in this encounterMer[facility]11-03-2023 Evaluation note* Encounter Date Diagnosis Assessment [...] May, Right elbow pain (ICD-10 - M25.521) [employer] Other 10-19-2023 Miscellaneous Notes* Telephone Encounter - Allison York OCCA - 05/12/2023 1:29 PM EDT [facility] is [facility] * Telephone Encounter - Refugio Mosqueda - 05/12/2023 1:16 PM EDT Ashwini from [employer] is calling Noemi Pham MD today to clarify medication. When they were filling the enbrel, it flagged that the patient has a thrombocytopenia diagnosis. They need to clarify that the provider is aware. They cannot send the medication until they get that clarification. [phone] Patient has been identified by name and birthdate. Duration of symptoms: N/A Person calling: pharmacy: [facility] Call patient at: on cell [phone] (home) [phone] (cell) Was an appointment scheduled: No Closing statement: Results or non-symptom based questions: Thank you for calling [facility], your call will be returned within the next business day. Refugio Mosqueda documented in this encounterMercy Health St. [facility]08-16-2023 Miscellaneous Notes* Telephone Encounter - Jud Hess LPN - 03/09/2023 1:59 PM EDT Patient stopped taking the Plaquenil d/t skin rash. Provider aware. * Telephone Encounter - Noemi Pham MD - 03/09/2023 1:37 PM EDT She can continue on the plaquenil bid, eye exam reviewed, no toxicity noted. Noemi Pham MD documented in this encounterMer[facility]. [facility]07-10-2023 Miscellaneous Notes* Telephone Encounter - Brianda [...] and mail to her. documented in this encounterMercy [facility] St. [facility]07-05-2023 Miscellaneous Notes* Telephone Encounter - Brianda Palomares LPN - 01/26/2023 1:53 PM EDT Mailed LEVY label to patient per Dr. Pham's request * Telephone Encounter - Noemi Pham MD - 01/26/2023 1:45 PM EDT Please mail her lab order for LEVY panel. Noemi Pham MD documented in this encounterMer[facility] St. [facility]06-23-2023 NoteHNO ID: [id number] Author: Noemi Pham MD Service: ? Author [...] F/U: 6m Check following: -none Noemi Pham, [facility]06-21-2023 Miscellaneous Notes* Telephone Encounter - Noemi Pham MD - 01/12/2023 8:31 AM EDT The following approved medication requests have been transmitted electronically. Requested Prescriptions Pending Prescriptions Disp Refills metaxalone (SKELAXIN) 800 mg tablet [Pharmacy Med Name: METAXALONE 800 MG TABLET] 30 tablet 1 Sig: TAKE 1/2 TABLET BY MOUTH TWICE A DAY NEEDED Noemi Pham MD * Telephone Encounter - Jud Hess LPN - 01/11/2023 9:41 AM EDT Most recent [...] 365 Days Visit Type Date Time Department [facility] 01/14/2023 11:00 AM [facility] Last Ophthalmology Check for Plaquenil (Hydroxychloroquine) [...] Instance) Lab Orders None documented in this encounterMercy Health St. [facility]06-02-2023 NoteHNO ID: [id number] Author: Liz Connolly MD Service: ? 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 Author [...] Plan of Care Visit completed when applicable. Megantyler Miner Alejo Marshall [facility]06-02-2023 History of Present illness Narrative* Alejo [...] applicable. Megan Marshall MD documented in this encounterMercy Health St. [facility]05-10-2023 Miscellaneous Notes* Telephone Encounter - Inocencia Bui LPN - 12/01/2022 3:25 PM EDT Prior authorization for Enbrel initiated on Cover My Meds. Pending. documented in this encounterMercy Health St. [facility]05-02-2023 Miscellaneous Notes* Telephone Encounter - Brianna Murray RN - 11/23/2022 9:22 AM EDT Patient has appointment with Dr. Connolly on 12/24/22 and is asking if any tests should be done prior her appointment. Patient was referred by Dr. Pham ( [facility] Patient c/o of increased muscle weakness. [...] units/L Brianna Murray RN documented in this encounterMercy Health St. [facility]04-24-2023 Miscellaneous Notes* Telephone Encounter - Noemi Pham MD - 11/15/2022 1:22 PM EDT Please tell her I received labs from [facility] and her cpk and aldolase returned normal . (CPK was 11 and aldolase 5.0 Noemi Pham MD documented in this encounterMercy Health St. [facility]04-05-2023 Miscellaneous Notes* Telephone Encounter - Inocencia Bui LPN - 10/27/2022 9:44 AM EDT Please advise. documented in this encounterMercy Health St. [facility]03-13-2023 Miscellaneous Notes* Telephone Encounter - Noemi [...] Visit Type Date Time Department [facility] 02/16/2023 11:20 AM [facility] Last Ophthalmology Check for Plaquenil (Hydroxychloroquine) [...] Instance) Lab Orders None documented in this encounterMercy Health St. [facility]02-15-2023 [facility] Follow[facility]Up Patient Visit CHIEF COMPLAINT Chief Complaint Patient presents with Follow-up Diarrhea HISTORY OF PRESENT ILLNESS: Lynette Hairston is a 47 y.o. female established patient. Summary of old records: Per HPI from 05/26/22 Lynette Hairston is a 46 y.o. female with PMH of gastroparesis, fatty liver, migraine headache, RA (follows with rheumatology in [place]), anxiety, POTS and IBS. She was last seen in the clinic Jul 2020 for further evaluation of elevated liver enzymes. Today, she presents for further evaluation of diarrhea. has been having diarrhea for years but urgency/incontinence is new. Previous work up for her liver was negative for viral hepatitis, and pointed away from [facility]. There was some thought that the elevated [...] injection, 1 ml, Dis (more content not included)...[facility]01-18-2023 NoteHNO ID: [id number] Author: Jud Hess LPN Service: ? Author Type: ? Type: Progress Notes Filed: 08/11/2022 11:22 AM Note Text: Patient given Depomedrol 80 mg IM in the left upper quadrant gluteus. Patient tolerated injection well. Lot#: [id number] Exp date: 03/23/2024 Jud Rossley [facility]01-18-2023 NoteHNO ID: [id number] Author: Ioncencia Bui LPN Service: ? Author Type: ? Type: Progress Notes Filed: 08/11/2022 10:21 AM Note Text: Methylprednisolone injection verified. 80mg.[facility]01-18-2023 NoteHNO ID: [id number] Author: Noemi Pham MD Service: ? Author [...] F/U: 6m Check following: -none Noemi Pham, [facility]01-18-2023 History of Present illness Narrative* Jud Hess LPN - 08/11/2022 11:21 AM EST Patient given Depomedrol 80 mg IM in the left upper quadrant gluteus. Patient tolerated injection well. Lot#: [id number] Exp date: 03/23/2024 Jud Hess LPN * [...] -none Noemi Pham MD documented in this encounterMercy Health St. [facility]11-21-2022 Miscellaneous Notes* Telephone Encounter - BuiInocencia LPN - 06/14/2022 3:35 PM EST Mohsen Prince Felder: [id number] - PA - Rx #: [id number] help? Call us at Outcome Approvedon June 11 CaseId:[id number];Status:Approved;Review Type:Prior Auth;Coverage Start Date:05/12/2022;Coverage End Date:06/11/2023; * Telephone Encounter - Jud Hess LPN - 06/11/2022 11:22 AM EST PA for Enbrel submitted via Cover My Meds this date. If approved new Rx will need sent to [facility]. * Telephone Encounter - Diana Stanley - 06/04/2022 9:59 AM EST Lynette Prince called today. : 1975 Allergies: Meloxicam and Methotrexate (home) [phone] (cell) Reason for call: patient states she spoke with [facility] requesting additional info for medication For ENBREL Please advise Patient last appointment: 05/29/2022 The patients preferred pharmacy has been captured for this encounter? yes RHODA STARR documented in this encounterMercy Health St. [facility]11-10-2022 Miscellaneous Notes* Telephone Encounter - Inocencia Bui LPN - 06/03/2022 9:36 AM EST Follow up message from 05/17/22 encounter and orders. documented in this encounterMercy Health St. [facility]11-07-2022 Miscellaneous Notes* Telephone Encounter - Linnea Sanders Ma - 05/31/2022 4:25 PM EST Done by janis. * Telephone Encounter - Noemi Pham MD [...] Days Visit Type Date Time Department [facility] 10/20/2022 9:40 AM [facility] CBC: None on file in the [...] Instance) Lab Orders None documented in this encounterMercy Health St. [facility]11-02-2022 [facility] Gastroenterology Follow-Up Patient Visit CHIEF COMPLAINT Chief Complaint Patient presents with Diarrhea Follow-up Patient states she has randomly lost control of her bowels in the recent weeks. HISTORY OF PRESENT ILLNESS: Lynette Hairston is a 46 y.o. female with PMH of gastroparesis, fatty liver, migraine headache, RA (follows with rheumatology in [place]), anxiety, POTS and IBS. She was last seen in the clinic Jul 2020 for further evaluation of elevated liver enzymes. Today, she presents for further evaluation of diarrhea. has been having diarrhea for years but urgency/incontinence is new. Previous work up for her liver was negative for viral hepatitis, and pointed away from [facility]. There was some thought that the elevated [...] afternoon, and at bed (more content not included)...[facility]10-24-2022 Miscellaneous Notes* Telephone Encounter - Jud Hess LPN - 05/17/2022 4:26 PM EDT MC message sent to patient. * Telephone Encounter - Noemi Pahm MD - 05/17/2022 12:56 PM EDT She [...] : 1975 Allergies: Meloxicam and Methotrexate (home) [phone] (cell) Reason for call: Patient called asking [...] not asked Glory Mason documented in this encounterMercy Health St. [facility]06-07-2022 Miscellaneous Notes* Telephone Encounter - Jud Hess LPN - 12/29/2021 2:47 PM EDT PA for Enbrel submitted via Cover My Meds. Felder: [id number] Pend for determination * Telephone Encounter - [...] message on voicemail) ' documented in this encounterMercy Health St. [facility]04-06-2022 Miscellaneous Notes* Telephone Encounter - Jud Hess LPN - 10/28/2021 12:13 PM EDT Rx placed in outgoing mail this date. Patient notified via [employer]. * Telephone Encounter - Noemi Pham MD - 10/28/2021 11:59 AM EDT rx for handicapped written, please mail to patient. Noemi Pham MD [facility]* Diagnosis Neuropathic pain- Primary Neuralgia, neuritis, and radiculitis, unspecified documented in this encounter [facility] Work Phone: evaluation note* Diagnosis Fibromyalgia- Primary Mylagia and myositis, unspecified documented in this encounter [facility] noteNo assessment information [facility] Work Phone: Evaluation note* Diagnosis Rheumatoid arthritis involving multiple sites, unspecified whether rheumatoid factor present (HCC)- Primary documented in this encounter [facility] note* Diagnosis Myalgia- Primary Mylagia and myositis, unspecified documented in this encounter [facility] note* Diagnosis Fatigue, unspecified type- Primary Elevated aldolase level Other nonspecific abnormal serum enzyme levels Generalized weakness Other malaise and fatigue documented in this encounter [facility] note* Diagnosis Fatigue, unspecified type Elevated aldolase level Other nonspecific abnormal serum enzyme levels Generalized weakness Other malaise and fatigue documented in this encounter [facility] note* Diagnosis Rheumatoid arthritis involving multiple sites, unspecified whether rheumatoid factor present (HCC)- Primary documented in this encounter [facility] note* Diagnosis Pain in joint, multiple sites- Primary Trochanteric bursitis of both hips Enthesopathy of hip region documented in this encounter [facility] note* Diagnosis Pain in joint, multiple sites documented in this encounter [facility] noteNo [employer] [employer] Other Evaluation note* Diagnosis Status migrainosus- Primary Variants of migraine, not elsewhere classified, without mention of intractable migraine without mention of status migrainosus Migraine without aura and without status migrainosus, not intractable Cervicalgia Fibromyalgia Unspecified myalgia and myositis Paresthesias Disturbance of skin sensation Trapezius muscle spasm Vertigo Dizziness and giddiness documented in this encounter [facility] SystemEvaluation [facility]* Diagnosis Primary hypertension- Primary Unspecified essential hypertension Coronary artery vasospasm (CMS-HCC) Prinzmetal angina Intermittent palpitations Obstructive sleep apnea Obstructive sleep apnea (adult) (pediatric) documented [facility] this encounter [facility]* Diagnosis Chronic bilateral low back pain without sciatica- Primary documented in this encounter [facility]* Diagnosis Spinal stenosis of lumbar region with neurogenic claudication- Primary Spinal stenosis, lumbar region, with neurogenic claudication documented in this encounter [facility]* Diagnosis Retinoschisis, bullous, bilateral- Primary High risk medication use Hypertensive retinopathy of both eyes Hypertensive retinopathy Epiretinal membrane (ERM) of both eyes PVD (posterior vitreous detachment), right eye Vitreous syneresis of both eyes Presbyopia Hx of rheumatoid arthritis Retinoschisis, bullous, bilateral Retinoschisis, bullous, bilateral [facility] this encounter [facility]* Diagnosis High risk medication use- Primary documented [facility] this encounter [facility]* Diagnosis Retinoschisis, bullous, bilateral documented in this encounter [facility] Narrative - Reported* Type Description Date Medical History rheumatoid arthritis Medical History anxiety Medical History chronic depression Medical History coronary artery disease Surgical History heart catheterization Surgical History gall bladder removed Surgical History tonsillectomy and adenoidectomy Surgical History HYSTERECTOMY Surgical History appendectomy Hospitalization History surgeries [employer] Other Hospital Discharge instructions* Instructions* Garfield Restrepo [...] a follow up appointment THANK YOU!!! From [facility] On behalf of the Emergency Department staff at [facility], I would like to thank you for giving us the opportunity to address your health care needs and concerns. We hope that during your visit, our service was delivered in a professional and caring manner. Please keep [facility] in mind as we walk with [...] how we did during your visit at [email or web address] and let us know about your experience * Attachments The following attachments cannot be sent through Care Everywhere. * Neuropathic Pain (Malagasy) documented in this encounterPubNative Phone: InstructionsNot on filedocumented in this encounter [email or web address] SystemInstructionsNot on filedocumented in this encounter [email or web address] SystemInstructionsNot on filedocumented in this encounter [email or web address] SystemInstructionsNot on filedocumented in this encounter [email or web address] SystemInstructionsNot on filedocumented in this encounter [email or web address] SystemInstructionsNot on filedocumented in this encounter [facility] for referral (narrative)* Outpatient Procedure (Routine) - Pending Review Specialty Diagnoses / Procedures Referred By Contac t Referred To Contact [facility] Diagnoses Fatigue, unspecified type Elevated aldolase level Generalized weakness Procedures EMG(NEURO/NI) NERVE CONDUCTION STUDIES 9-10 STUDIES Liz Connolly MD [address] [place] [address] Neu[address] [place] [address] [place] [address] Referral ID Status Reason Start Date Expiration Date Visits Requested Visits Authorized [id number] Pending Review Auto-Generat ed Referral 11/23/2022 11/24/2023 1 1 [facility] for referral (narrative)* Diagnostic Procedure Only (Routine) - Closed Specialty Diagnoses / Procedures Referred By Contac t Referred To Contact XR IMAGING Diagnoses Pain in joint, multiple sites Procedures XR LUMBAR GENERAL 3V AP/LAT/L5-S1 RADEX SPINE LUMBOSACRAL 2/3 VIEWS Noemi Pham MD [address] [place] [address] [place] [address] Referral ID Status Reason Start Date Expiration Date V isits Requested Visits Authorized [id number] Closed Auto-Generate d Referral 06/24/2023 07/23/2024 1 1 [facility] for referral (narrative)* Diagnostic Procedure Only (Routine) - Closed Specialty Diagnoses / Procedures Referred By Contac t Referred To Contact XR IMAGING Diagnoses Pain in joint, multiple sites Procedures XR LUMBAR GENERAL 3V AP/LAT/L5-S1 RADEX SPINE LUMBOSACRAL 2/3 VIEWS Noemi Pham MD [address] [place] [id number] Xr Imaging [facility] Referral ID Status Reason Start Date Expiration Date V isits Requested Visits Authorized [id number] Closed Auto-Generate d Referral 06/24/2023 07/23/2024 1 1 [facility] for referral (narrative)* Consultation (Routine) - Pending Review Specialty Diagnoses / Procedures Referred By Contac t Referred To Contact Pulmonary Medicine Diagnoses Obstructive sleep apnea Michael Perkins MD [address] [place] [address] Olegario Joseph MD [address] [address] Referral ID Status Reason Start Date Expiration Date Visits Requested Visits Authorized [id number] Pending Review Specialty Services Required 09/02/2023 09/01/2024 1 1 [facility] for referral (narrative)* Diagnostic Procedure Only (Routine) - Pending Review Specialty Diagnoses / Procedures Referred By Contac t Referred To Contact XR IMAGING Diagnoses Chronic bilateral low back pain without sciatica Procedures XR LUMBAR GENERAL 3V AP/LAT/L5-S1 RADEX SPINE LUMBOSACRAL 2/3 VIEWS Noemi Pham MD [address] [facility] [address] [place] [address] Imaging [place] [address] Referral ID Status Reason Start Date Expiration Date Visits Requested Visits Authorized [id number] Pending Review Auto-Generat ed Referral 09/19/2023 10/18/2024 1 1 [facility] for visit Narrative* Outpatient Procedure (Routine) - Closed Specialty Diagnoses / Procedures Referred By Contnorma t Referred To Contact [facility] Diagnoses Fatigue, unspecified type Elevated aldolase level Generalized weakness Procedures EMG(NEURO/NI) NERVE CONDUCTION STUDIES 9-10 STUDIES Liz Connolly MD [address] [place] [address] [place] [address] Referral ID Status Reason Start Date Expiration Date V isits Requested Visits Authorized [id number] Closed Auto-Generate d Referral 11/23/2022 11/24/2023 [address] [facility] Advance Directives Documents on File Type Date Recorded Patient Sap Analyst Expl anation ACP-Advance Directive ACP-Power of Storage Engineer Documents on File Type Date Recorded Patient Sap Analyst Expl anation Advance Directives and Living Will Power of Storage Engineer Documents on File Type Date Recorded Patient Sap Analyst Expl anation ACP-Advance Directive ACP-Power of Storage Engineer Latest Code Status on File Code Status [...] Records Found Procedure Findings Note MR#: [id number] [facility] Pt. Name: Lynette Prince Surgery Date: 08/22/2019 Room #: Z0 Date of : 1975 PROCEDURE NOTE ATTENDING: Dina Zhou M.D. PROCEDURE PERFORMED: Esophagogastroduodenoscopy. HEALTH SANITARIAN: Zackary Narvaez M.D. ANESTHESIA USED: Conscious sedation [...] ice in a towel. Please call your boring machine operator vertical tomorrow and your family physician tomorrow to schedule follow-up for 1to 2 days Return to the emergency room for worsening pain swelling numbness tingling or other emergent concerns * Attachments The following attachments cannot be sent through Care Everywhere. * Foot Sprain (Malagasy) documented in this encounter Assessments Diagnosis Sprain [...] LUMBAR W/O CONTRAST MATERIAL Noemi Pham MD [address] [place] [address] Mr Imaging [place] [facility] Referral ID Status Reason Start Date Expiration Date Visits Requested Visits Authorized [id number] Pending Review Auto-Generat ed Referral 09/21/2023 10/20/2024 1 1 Additional Source Comments Reason for Visit (unrecogniz ed section and content) Status Reason Specialty Diagnoses / Procedures Referred By Contact Referred To Contact Authorized Physical Therapy Diagnoses Plantar fasciitis Procedures eval and treat Isael Yoder MD [address] [place] [address] Sander Jauregui, PT Reason Comments Foot Pain [...] SPINE LUMBOSACRAL 2/3 VIEWS Noemi Pham MD [address] [place] [address] Xr Imaging [facility] Referral ID Status Reason Start Date Expiration Date V isits Requested Visits Authorized [id number] Closed Auto-Generate d Referral 06/24/2023 07/23/2024 1 1 Reason Onset Date Comments Headache 07/21/2023 Reason Comments Migraine Migraine cocktail Reason Onset Date Comments Appointment 09/01/2023 Reason Comments Follow-up Hypertension Reason Comments Pain Reason Comments Results X-ray results XR lum bar spine Reason Comments Retinoschisis, bullous, bilateral Reason Comments Procedure INFORMATION SOURCE (unrecogn ized section and content) DATE CREATED AUTHOR 08/14/2020 [facility] DATE CREATED AUTHOR AUTHOR'S ORGANIZ ATION 07/25/2021 [facility] [facility] DATE CREATED AUTHOR AUTHOR'S ORGANIZ ATION 09/20/2022 [facility] DATE CREATED AUTHOR AUTHOR'S ORGANIZ ATION 10/30/2022 [facility] DATE CREATED AUTHOR AUTHOR'S ORGANIZ ATION 03/25/2023 [facility] DATE CREATED AUTHOR AUTHOR'S ORGANIZ ATION 06/27/2023 [facility] DATE CREATED AUTHOR AUTHOR'S ORGANIZ ATION 06/27/2023 [facility] DATE CREATED AUTHOR AUTHOR'S ORGANIZ ATION 09/30/2023 [facility] DATE CREATED AUTHOR AUTHOR'S ORGANIZ ATION 10/14/2023 [facility] Ordered Prescriptions (unrec ognized section [...] or prosecute any alcohol or drug abuse patient.[facility] HospitalIn the event this information is protected by the Federal Confidentiality of Alcohol and Drug Abuse Patient Records regulations: The Federal rules restrict any use of the information to criminally investigate or prosecute any alcohol or drug abuse patient.[facility] HospitalIn the event this information is protected by the Federal Confidentiality of Alcohol and Drug Abuse Patient Records regulations: The Federal rules restrict any use of the information to criminally investigate or prosecute any alcohol or drug abuse patient.[facility] HospitalIn the event this information is protected by the Federal Confidentiality of Alcohol and Drug Abuse Patient Records regulations: The Federal rules restrict any use of the information to criminally investigate or prosecute any alcohol or drug abuse patient.[facility] HospitalIn the event this information is protected by the Federal Confidentiality of Alcohol and Drug Abuse Patient Records regulations: The Federal rules restrict any use of the information to criminally investigate or prosecute any alcohol or drug abuse patient.[facility] HospitalIn the event this information is protected by the Federal Confidentiality of Alcohol and Drug Abuse Patient Records regulations: The Federal rules restrict any use of the information to criminally investigate or prosecute any alcohol or drug abuse patient.[facility] HospitalIn the event this information is protected by the Federal Confidentiality of Alcohol and Drug Abuse Patient Records regulations: The Federal rules restrict any use of the information to criminally investigate or prosecute any alcohol or drug abuse patient.[facility] HospitalIn the event this information is protected by the Federal Confidentiality of Alcohol and Drug Abuse Patient Records regulations: The Federal rules restrict any use of the information to criminally investigate or prosecute any alcohol or drug abuse patient.[facility] HospitalIn the event this information is protected by the Federal Confidentiality of Alcohol and Drug Abuse Patient Records regulations: The Federal rules restrict any use of the information to criminally investigate or prosecute any alcohol or drug abuse patient.[facility] HospitalIn the event this information is protected by the Federal Confidentiality of Alcohol and Drug Abuse Patient Records regulations: The Federal rules restrict any use of the information to criminally investigate or prosecute any alcohol or drug abuse patient.[facility] HospitalIn the event this information is protected by the Federal Confidentiality of Alcohol and Drug Abuse Patient Records regulations: The Federal rules restrict any use of the information to criminally investigate or prosecute any alcohol or drug abuse patient.[facility] HospitalIn the event this information is protected by the Federal Confidentiality of Alcohol and Drug Abuse Patient Records regulations: The Federal rules restrict any use of the information to criminally investigate or prosecute any alcohol or drug abuse patient.[facility] HospitalIn the event this information is protected by the Federal Confidentiality of Alcohol and Drug Abuse Patient Records regulations: The Federal rules restrict any use of the information to criminally investigate or prosecute any alcohol or drug abuse patient.[facility] HospitalIn the event this information is protected by the Federal Confidentiality of Alcohol and Drug Abuse Patient Records regulations: The Federal rules restrict any use of the information to criminally investigate or prosecute any alcohol or drug abuse patient.[facility] HospitalIn the event this information is protected by the Federal Confidentiality of Alcohol and Drug Abuse Patient Records regulations: The Federal rules restrict any use of the information to criminally investigate or prosecute any alcohol or drug abuse patient.[facility] HospitalIn the event this information is protected by the Federal Confidentiality of Alcohol and Drug Abuse Patient Records regulations: The Federal rules restrict any use of the information to criminally investigate or prosecute any alcohol or drug abuse patient.[facility] HospitalIn the event this information is protected by the Federal Confidentiality of Alcohol and Drug Abuse Patient Records regulations: The Federal rules restrict any use of the information to criminally investigate or prosecute any alcohol or drug abuse patient.[facility] HospitalIn the event this information is protected by the Federal Confidentiality of Alcohol and Drug Abuse Patient Records regulations: The Federal rules restrict any use of the information to criminally investigate or prosecute any alcohol or drug abuse patient.[facility] HospitalIn the event this information is protected by the Federal Confidentiality of Alcohol and Drug Abuse Patient Records regulations: The Federal rules restrict any use of the information to criminally investigate or prosecute any alcohol or drug abuse patient.[facility] HospitalIn the event this information is protected by the Federal Confidentiality of Alcohol and Drug Abuse Patient Records regulations: The Federal rules restrict any use of the information to criminally investigate or prosecute any alcohol or drug abuse patient.[facility] HospitalIn the event this information is protected by the Federal Confidentiality of Alcohol and Drug Abuse Patient Records regulations: The Federal rules restrict any use of the information to criminally investigate or prosecute any alcohol or drug abuse patient.[facility] HospitalIn the event this information is protected by the Federal Confidentiality of Alcohol and Drug Abuse Patient Records regulations: The Federal rules restrict any use of the information to criminally investigate or prosecute any alcohol or drug abuse patient.[facility] HospitalIn the event this information is protected by the Federal Confidentiality of Alcohol and Drug Abuse Patient Records regulations: The Federal rules restrict any use of the information to criminally investigate or prosecute any alcohol or drug abuse patient.[facility] HospitalIn the event this information is protected by the Federal Confidentiality of Alcohol and Drug Abuse Patient Records regulations: The Federal rules restrict any use of the information to criminally investigate or prosecute any alcohol or drug abuse patient.[facility] HospitalIn the event this information is protected by the Federal Confidentiality of Alcohol and Drug Abuse Patient Records regulations: The Federal rules restrict any use of the information to criminally investigate or prosecute any alcohol or drug abuse patient.[facility] HospitalIn the event this information is protected by the Federal Confidentiality of Alcohol and Drug Abuse Patient Records regulations: The Federal rules restrict any use of the information to criminally investigate or prosecute any alcohol or drug abuse patient.[facility] HospitalIn the event this information is protected by the Federal Confidentiality of Alcohol and Drug Abuse Patient Records regulations: The Federal rules restrict any use of the information to criminally investigate or prosecute any alcohol or drug abuse patient.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[employer] Relationship Specialty Start Date End Date Toy Obrien MD PCP - General Family Practice 07/05/16 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[employer] Relationship Specialty Start Date End Date Toy Obrien MD PCP - General Family Medicine 07/05/16 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[employer] Relationship Specialty Start Date End Date Toy Obrien MD PCP - General Family Medicine 07/05/16 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[employer] Relationship Specialty Start Date End Date Toy Obrien MD PCP - General Family Medicine 07/05/16 Team Status: Inactive Member Role Status Dates Jud Monson ASTRONOMY 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-C Attending Provider Active 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[employer] Relationship Specialty Start Date End Date Toy Obrien MD PCP - General Family Medicine 07/05/16 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[employer] Relationship Specialty Start Date End Date Toy Obrien MD PCP - General Family Medicine 07/05/16 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[employer] Relationship Specialty Start Date End Date Toy Obrien MD PCP - General Family Medicine 07/05/16 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[employer] Relationship Specialty Start Date End Date Toy Obrien MD PCP - General Family Medicine 07/05/16 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[employer] Relationship Specialty Start Date End Date Toy Obrien MD PCP - General Family Medicine 07/05/16 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[employer] Relationship Specialty Start Date End Date Toy Obrien MD PCP - General Family Medicine 07/05/16 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[employer] Relationship Specialty Start Date End Date Toy Obrien MD PCP - General Family Medicine 07/05/16 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[employer] Relationship Specialty Start Date End Date Toy Obrien MD PCP - General Family Medicine 07/05/16 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[employer] Relationship Specialty Start Date End Date Toy Obrien MD PCP - General Family Medicine 07/05/16 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[employer] Relationship Specialty Start Date End Date Toy Obrien MD PCP - General Family Medicine 07/05/16 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[employer] Relationship Specialty Start Date End Date Toy Obrien MD PCP - General Family Medicine 07/05/16 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[employer] Relationship Specialty Start Date End Date [facility] [place] [phone] PCP - General Family Medicine 09/06/22 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[employer] Relationship Specialty Start Date End Date Toy Obrien [place] [facility] [place] [phone] PCP - General Family Medicine 09/06/22 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[employer] Relationship Specialty Start Date End Date Toy Obrien [place] [facility] [place] [phone] PCP - General Family Medicine 09/06/22 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[employer] Relationship Specialty Start Date End Date Toy Obrien [place] [phone] PCP - General Family Medicine 09/06/22 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[employer] Relationship Specialty Start Date End Date Toy Obrien MD [facility] [place] [place] [phone] PCP - General Family Medicine 09/06/22 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[employer] Relationship Specialty Start Date End Date Toy Obrien MD PCP - General Family Medicine 07/05/16 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[employer] Relationship Specialty Start Date End Date Toy Obrien MD PCP - General Family Medicine 07/05/16 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[employer] Relationship Specialty Start Date End Date Toy Obrien MD PCP - General Family Medicine 07/05/16 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[employer] Relationship Specialty Start Date End Date Toy Obrien MD PCP - General Family Medicine 07/05/16 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 [employer] provides no warranty or guarantee of the accuracy or completeness of information in this document.
[2023-10-27 13:45] LABS: Basophils Absolute Auto 0.1 10^3/uL (0.0-0.1); Basophils Percent Auto 1.3 % (0.2-2.0); Eosinophils Absolute Auto 0.1 10^3/uL (0.0-0.7); Eosinophils Percent Auto 1.2 % (0.9-7.0); Hematocrit 43.3 % (36.0-48.0); Hemoglobin 14.7 g/dL (12.0-16.0); Immature Granulocytes Abs Auto 0.02 10^3/uL (0.00-0.03); Immature Granulocytes Pct Auto 0.2 % (0.0-0.5); Lymphocytes Absolute Auto 2.6 10^3/uL (1.2-3.8); Lymphocytes Percent Auto 31.1 % (20.5-60.0); Mean Corpuscular HGB Conc 33.9 g/dL (29.9-35.2); Mean Corpuscular Hemoglobin 31.9 pg (26.7-34.0); Mean Corpuscular Volume 93.9 fL (81.0-99.0); Mean Platelet Volume 11.3 fL (9.5-13.5); Monocytes Absolute Auto 0.7 10^3/uL (0.3-0.8); Monocytes Percent Auto 8.8 % (1.7-12.0); Neutrophils Absolute Auto 4.8 10^3/uL (1.4-6.5); Neutrophils Percent Auto 57.4 % (43.0-75.0); Platelet Count 180 10^3/uL (150-450); Red Blood Count 4.61 10^6/uL (4.20-5.40); Red Cell Distribution Width 12.3 % (11.0-15.0); White Blood Count 8.3 10^3/uL (4.0-11.0)
[2023-10-27 13:48] LABS: Alanine Aminotransferase 71 U/L (14-59); Albumin Globulin Ratio 1.1; Albumin Level 3.7 g/dL (3.4-5.0); Alkaline Phosphatase 48 U/L (46-116); Anion Gap 13.2; Aspartate Amino Transferase 44 U/L (15-37); BUN Creatinine Ratio 10.8; Calcium 8.7 mg/dL (8.5-10.1); Chloride 105 mmol/L (98-107); Estimated GFR (African America >60 (>=60); Estimated GFR (Non-African Ame >60 (>=60); Globulin 3.5 g/dL; Glucose 93 mg/dL (74-106); Magnesium 2.1 mg/dL (1.8-2.4); Potassium 4.2 mmol/L (3.5-5.1); Sodium 140 mmol/L (136-145); Total Protein 7.2 g/dL (6.4-8.2)
== END 2023-10-27 12:30 | disposition home or self-care (01) ==
DX: R06.02 Shortness of breath (principal); R07.89 Other chest pain; R00.2 Palpitations; R00.0 Tachycardia, unspecified
CPT/HCPCS: 36415; 80053; 83735; 83880; 85025

== ENCOUNTER 2023-10-31 07:11 | Outpatient (OUT) | payer OTHER, SELFPAY ==
--- OUTSIDE RECORDS SUMMARY | 2023-10-31 07:14 | XMS_ITS | CCD ---
Author Organization [facility] Care Team Providers Care Bond Trader Name Role Phone Toy Obrien Primary Care Provider [phone] TOY OBRIEN Primary Care Unavailable GARFIELD RESTREPO Attending Unavailable TOY OBRIEN Primary Care Unavailable GARFIELD RESTREPO Attending Unavailable BLANCA DAWN Referring Unavailable TOY OBRIEN Primary Care Unavailable BLANCA DAWN Referring Unavailable TOY OBRIEN Primary Care Unavailable Toy Obrien MD Primary Care Provider [phone] Toy Obrien MD Primary Care Provider ZOEY Monson Attending Provider [phone] Toy Obrien MD Primary Care Provider [phone] Jud Monson Admitting Unavailable Jud Monson Attending [...] Unavailable TOY OBRIEN Primary Care Unavailable CODY HUTCHISN Attending Unavailable JOSÉ, TOY Gimenez Referring Unavailable [...] NSAIDs (1 source) meloxicam Drug Allergy 7 [facility] (20 sources) meloxicam; Translations: [MELOXICAM] Drug Allergy 7 [place], [place] (20 sources) Methotrexate; Translations: [METHOTREXATE] Drug Allergy 5 GI Upset, [facility] (12 sources) Isosorbide; Translations: [ISOSORBIDE MONONITRATE] Drug Allergy 2 Headache, Vomiting [facility] (3 sources) Isosorbide Dinitrate Drug Allergy Unknown [facility] Other Medications Current Medications Medication Drug Class(es) [...] sources) Taking high risk medication; Translations: [Other intermediate frame tender (current) drug therapy] 10-14-2023 Episodic Other aftercare (1 source) Other intermediate frame tender (current) drug therapy; Translations: [Other intermediate frame tender (current) drug therapy] Onset: 10-13-2023 Episodic Other [...] Range Facil ity No Panel Informationon 10-13 [facility] CBC AND AUTO DIFFon 09-27-19 ABSOLUTE BASOPHIL 0.1 X10E9/L Normal 0.0-0.2 [facility] Comment on above: Performed By: #### C BCA, CMP, 11713-2, 82590-8 #### [facility] ([id number]) [address] [place] [address] ABSOLUTE NEUTROPHIL 6.1 X10E9/L Normal 1.5-6.6 [facility] Comment on above: Performed By: #### C BCA, CMP, 84495-7, 25345-4 #### [facility] ([id number]) [address] [place] [address] Basophils/100 WBC (Bld) 0.9 % Normal [facility] Comment on above: Performed By: #### C BCA, CMP, 43645-6, 73992-2 #### [facility] ([id number]) [address] [place] [address] Eosinophils (Bld) [#/Vol] 0.2 10*3/uL Normal 0.0-0.4 [facility] Comment on above: Performed By: #### C BCA, CMP, 01908-0, 98416-4 #### [facility] ([id number]) [address] [place] [address] Eosinophils/100 WBC (Bld) 2.0 % Normal [facility] Comment on above: Performed By: #### C BCA, CMP, 17486-0, 06197-1 #### [facility] ([id number]) [address] [place] [address] Erythrocyte distribution width (RBC) [Ratio] 13.1 % Normal 11.5-15.0 [facility] Comment on above: Performed By: #### C BCA, CMP, 70437-4, 88228-4 #### [facility] ([id number]) [address] [place] [address] Hematocrit (Bld) [Volume fraction] 45.3 % Normal 35-47 [facility] Comment on above: Performed By: #### C BCA, CMP, 99927-2, 79908-3 #### [facility] ([id number]) [address] [place] [address] Hemoglobin (Bld) [Mass/Vol] 15.4 g/dL Normal 11.7-15.5 [facility] Comment on above: Performed By: #### C BCA, CMP, 69665-6, 76243-9 #### [facility] ([id number]) [address] [place] [address] Lymphocytes (Bld) [#/Vol] 2.4 10*3/uL Normal 1.0-3.5 [facility] Comment on above: Performed By: #### C BCA, CMP, 50380-1, 61032-0 #### [facility] ([id number]) [address] [place] [address] Lymphocytes/100 WBC (Bld) 25.2 % Normal [facility] Comment on above: Performed By: #### C BCA, CMP, 66284-3, 67830-7 #### [facility] ([id number]) [address] [place] [address] MCH (RBC) [Entitic mass] 31.8 pg Normal 27-34 [facility] Comment on above: Performed By: #### C BCA, CMP, 59962-7, 75541-7 #### [facility] ([id number]) [address] [place] [address] MCHC (RBC) [Mass/Vol] 33.9 g/dL Normal 32-36 [facility] Comment on above: Performed By: #### C BCA, CMP, 46731-0, 29006-1 #### [facility] ([id number]) [address] [place] [address] MCV (RBC) [Entitic vol] 94 fL Normal 80-100 [facility] Comment on above: Performed By: #### C BCA, CMP, 31035-3, 57583-8 #### [facility] ([id number]) [address] [place] [address] Monocytes (Bld) [#/Vol] 0.7 10*3/uL Normal 0-0.9 [facility] Comment on above: Performed By: #### C BCA, CMP, 06057-1, 39026-6 #### [facility] ([id number]) [address] [place] [address] Monocytes/100 WBC (Bld) 7.4 % Normal [facility] Comment on above: Performed By: #### C BCA, CMP, 29409-1, 33003-8 #### [facility] ([id number]) [address] [place] [address] Neutrophils/100 WBC (Bld) 64.5 % Normal [facility] Comment on above: Performed By: #### C BCA, CMP, 11909-7, 40400-0 #### [facility] ([id number]) [address] [place] [address] Platelet mean volume (Bld) [Entitic vol] 9.4 fL Normal 7-12 [facility] Comment on above: Performed By: #### C BCA, CMP, 27294-3, 98322-4 #### [facility] ([id number]) [address] [place] [address] Platelets (Bld) [#/Vol] 186 10*3/uL Normal 150-450 [facility] Comment on above: Performed By: #### C BCA, CMP, 14400-0, 58175-8 #### [facility] ([id number]) [address] [place] [address] RBC COUNT 4.83 X10E12/L Normal 3.80-5.20 [facility] Comment on above: Performed By: #### C BCA, CMP, 46739-2, 46842-1 #### [facility] ([id number]) [address] [place] [address] WBC (Bld) [#/Vol] 9.5 10*3/uL Normal 4.0-11.0 [facility] Comment on above: Performed By: #### C BCA, CMP, 29272-7, 06297-9 #### [facility] ([id number]) [address] [place] [address] COMPREHENSIVE METABOLIC PANE Priyank 09-27-2023 Albumin [Mass/Vol] 4.2 g/dL Normal 3.2-5.3 [facility] Comment on above: Performed By: #### C BCA, CMP, 41446-9, 28815-3 #### [facility] ([id number]) [address] [place] [address] ALP [Catalytic activity/Vol] 37 U/L Low 39-130 [facility] Comment on above: Performed By: #### C BCA, CMP, 09196-2, 78478-7 #### [facility] ([id number]) [address] [place] [address] ALT [Catalytic activity/Vol] 50 U/L High 0-31 [facility] Comment on above: Performed By: #### C BCA, CMP, 23171-2, 60278-9 #### [facility] ([id number]) [address] [place] [address] Anion gap [Moles/Vol] 10 mmol/L Normal 5-15 [facility] Comment on above: Performed By: #### C BCA, CMP, 86867-8, 12687-8 #### [facility] ([id number]) [address] [place] [address] AST [Catalytic activity/Vol] 41 U/L Normal 0-41 [facility] Comment on above: Performed By: #### C BCA, CMP, 73896-1, 27625-8 #### [facility] ([id number]) [address] [place] [address] Bilirubin [Mass/Vol] 1.4 mg/dL High 0.3-1.2 [facility] Comment on above: Performed By: #### C BCA, CMP, 51948-8, 78710-2 #### [facility] ([id number]) [address] [place] [address] Calcium [Mass/Vol] 9.1 mg/dL Normal 8.5-10.5 [facility] Comment on above: Performed By: #### C BCA, CMP, 19528-5, 41974-0 #### [facility] ([id number]) [address] [place] [address] Chloride [Moles/Vol] 103 mmol/L Normal 98-109 [facility] Comment on above: Performed By: #### C BARB SARABIA, 62030-0, 37385-6 #### [facility] ([id number]) [address] [place] [address] CO2 [Moles/Vol] 23 mmol/L Normal 22-32 [facility] Comment on above: Performed By: #### C BARB SARABIA, 75693-5, 63135-9 #### [facility] ([id number]) [address] [place] [address] Creatinine [Mass/Vol] 0.99 mg/dL Normal 0.40-1.00 [facility] Comment on above: Result Comment: METH OD TRACEABLE TO IDMS STANDARD Performed By: #### C BARB SARABIA, 59421-4, 73005-5 #### [facility] ([id number]) [address] [place] [address] GFR/1.73 sq M.predicted among non-blacks MDRD (S/P/Bld) [Vol rate/Area] 70 mL/min/{1.73_m2} Normal >59 [facility] Comment on above: Result Comment: Reported eGFR is based on the CKD-EPI 1 equation that does not use a race coefficient. Performed By: #### C BARB SARABIA, 11007-4, 51014-1 #### [facility] ([id number]) [address] [place] [address] Glucose [Mass/Vol] 98 mg/dL Normal 65-99 [facility] Comment on above: Performed By: #### C NO CMP, 13641-5, 68997-7 #### [facility] ([id number]) [address] [place] [address] Potassium [Moles/Vol] 3.4 mmol/L Low 3.5-5.0 [facility] Comment on above: Performed By: #### C NO CMP, 95985-4, 10136-2 #### [facility] ([id number]) [address] [place] [address] Protein [Mass/Vol] 7.5 g/dL Normal 6.0-8.0 [facility] Comment on above: Performed By: #### C BCA, CMP, 16549-7, 15484-7 #### [facility] ([id number]) [address] [place] [address] Sodium [Moles/Vol] 136 mmol/L Normal 134-146 [facility] Comment on above: Performed By: #### C BCA, CMP, 14100-4, 91131-5 #### [facility] ([id number]) [address] [place] [address] Urea nitrogen [Mass/Vol] 10 mg/dL Normal 5-23 [facility] Comment on above: Performed By: #### C BCA, CMP, 23505-2, 37469-0 #### [facility] ([id number]) [address] [place] [address] Fibrin D-dimer DDU (PPP) [Ma ss/Vol]on 09-27-2023 D DIMER <150 Normal <255 [facility] Comment on above: Result Comment: Results <255 ng/mL DDU: The presence of a VTE can safely be excluded with a negative D-Dimer result and Wells score. A negative result doesn't exclude the possibility of DIC. The test be repeated along with other diagnostic tests if the patient's symptoms persist or worsen. [email or web address] Performed By: #### C BCA, CMP, 57100-5, 35058-4 #### [facility] ([id number]) [address] [place] [address] SARS/FLU A+B/RSV by NAAT/Mol ecularon 09-27-2023 SARS/FLU [...] operators who are performing tests using either [employer] or [employer] systems and is limited to laboratories that [...] repeat. Fact Sheet for Healthcare Providers: https://www.fda.gov/me nanci/429083/download Fact Sheet for Patients: https://www.fda.gov/me nanci/027245/download Normal [facility] Comment on above: Performed By: #### C OVFLR #### [facility] ([id number]) [address] [place] [address] TROPONIN Ion 09-27-2023 Troponin I.cardiac [Mass/Vol] ng/mL Normal 0.00-0.04 [facility] Comment on above: Performed By: #### C BCA, CMP, 30763-9, 77426-9 #### [facility] ([id number]) [address] [place] [address] URINE CULTUREon 09-27-2023 Bacteria identified Cx Nom (U) CULTURE RESULTS <10,000 ORGANISMS/ML NORMAL URO GENITAL JIMMY Normal [facility] Comment on above: Performed By: #### 6 30-4 #### [facility] ([id number]) [address] [place] [address], [address] [place] [address] URN MACROSCOPIC NURon 2023 BILIRUBIN GALLO Negative Normal NEG [facility] Comment on above: Performed By: #### N UM #### [facility] ([id number]) [address] [place] [address] BLOOD/HGB GALLO Negative Normal NEG [facility] Comment on above: Performed By: #### N UM #### [facility] ([id number]) [address] [place] [address] GLUCOSE GALLO Negative Normal NEG [facility] Comment on above: Performed By: #### N UM #### [facility] ([id number]) [address] [place] [address] KETONES GALLO Negative Normal NEG [facility] Comment on above: Performed By: #### N UM #### [facility] ([id number]) [address] [place] [address] LEUKOCYTE ESTERASE GALLO Negative Normal NEG [facility] Comment on above: Performed By: #### N UM #### [facility] ([id number]) [address] [place] [address] NITRITE GALLO Positive Abnormal NEG [facility] Comment on above: Performed By: #### N UM #### [facility] ([id number]) [address] [place] [address] PH GALLO 7.0 Normal 5.0-8.5 [facility] Comment on above: Performed By: #### N UM #### [facility] ([id number]) [address] [place] [address] PROTEIN GALLO Negative Normal NEG [facility] Comment on above: Performed By: #### N UM #### [facility] ([id number]) [address] [place] [address] SPECIFIC GRAVITY GALLO 1.020 Normal 1.003-1.035 [facility] Comment on above: Performed By: #### N UM #### [facility] ([id number]) [address] [place] [address] UROBILINOGEN GALLO 0.2 eu/dL Normal <1.1 [facility] Comment on above: Performed By: #### N UM #### [facility] ([id number]) [address] [place] [address] Urine collection deviceon ER EXTRA URINES ER EXTRA URINE ORDER IN PROCESS Normal [facility] Comment on above: Performed By: #### 8 0334-6 #### [facility] ([id number]) [address] [place] [address] XR CHEST 1 VWon 09-27-2023 XR CHEST 1 VW XR CHEST 1 VW XR CHEST 1 VW CLINICAL INFORMATION: Shortness of breath. COMPARISON: 03/25/23. IMPRESSION: * No acute cardiopulmonary disease. Finalized by Manas Biggs MD on 09/27/2023 3:16 PM Normal [facility] POCT EKGon 09-02-2023 [facility] ALDOLASE BLDon 06-24-2023 Aldolase [Catalytic activity/Vol] 11.2 mU/mL High 1.5 - 8.1 U/L [facility] Aldolase SerPl-cCncon 2022 Aldolase [Catalytic activity/Vol] 11.2 mU/mL High 1.5-8.1 [facility] Comment on above: Order Comment: Speci men Type: BLOOD SPECIMEN Ordering Facility: [facility] Address: [address], [place] [address] Result Comment: This test was developed and its performance characteristics determined by [facility]'s [facility] [place] ([facility]). It has not been cleared or approved by the FDA. [facility] is regulated under CLIA as qualified to perform high-complexity testing. This test is used for clinical purposes. It should not be regarded as investigational or for research. Performed By: #### 1 761-6 #### [facility] CLIA [id number] [facility] DES[id number] OF [place] C-REACTIVE PROTEIN (CRP)on 08-25-2022 CRP [Mass/Vol] 0.6 mg/dL <0.9 mg/dL [facility] CBC panel Auto (Bld)on 06-24 Erythrocyte distribution width (RBC) [Ratio] 11.9 % Normal 11.5-15.0 [facility] Comment on above: Order Comment: Mert del valle Type: BLOOD SPECIMEN Ordering Facility: [facility] Address: [address] [place] [address] Performed By: #### 5 8410-2 #### [facility] [place] [id number] [address] [place] Hematocrit (Bld) [Volume fraction] 45.7 % Normal 36.0-46.0 [facility] Comment on above: Order Comment: Mert del valle Type: BLOOD SPECIMEN Ordering Facility: [facility] Address: [address] [place] [address] Performed By: #### 5 8410-2 #### [facility] [place] [id number] [address] [place] [address] [place] Hemoglobin (Bld) [Mass/Vol] 15.5 g/dL Normal 11.5-15.5 [facility] Comment on above: Order Comment: Speci men Type: BLOOD SPECIMEN Ordering Facility: [facility] Address: [address] [place] [address] Performed By: #### 5 8410-2 #### [facility] [place] [id number] [address] [place] [address] [place] MCH (RBC) [Entitic mass] 31.6 pg Normal 26.0-34.0 [facility] Comment on above: Order Comment: Speci men Type: BLOOD SPECIMEN Ordering Facility: [facility] Address: [address] [place] [address] Performed By: #### 5 8410-2 #### [facility] [place] [id number] [address] [place] [address] [place] MCHC (RBC) [Mass/Vol] 33.9 g/dL Normal 30.5-36.0 [facility] Comment on above: Order Comment: Speci men Type: BLOOD SPECIMEN Ordering Facility: [facility] Address: [address] [place] [address] Performed By: #### 5 8410-2 #### [facility] [place] [id number] [address] [place] [address] [place] MCV (RBC) [Entitic vol] 93.1 fL Normal 80.0-100.0 [facility] Comment on above: Order Comment: Speci men Type: BLOOD SPECIMEN Ordering Facility: [facility] Address: [address] [place] [address] Performed By: #### 5 8410-2 #### [facility] [place] [id number] [address] [place] [address] [place] Nucleated RBC (Bld) [#/Vol] 10*3/uL Normal <0.01 [facility] Comment on above: Order Comment: Speci men Type: BLOOD SPECIMEN Ordering Facility: [facility] Address: [address] [place] [address] Performed By: #### 5 8410-2 #### [facility] CLIA [id number] [address] [place] [address] [place] Platelet mean volume (Bld) [Entitic vol] 10.6 fL Normal 9.0-12.7 [facility] Comment on above: Order Comment: Speci men Type: BLOOD SPECIMEN Ordering Facility: [facility] Address: [address] [place] [address] Performed By: #### 5 8410-2 #### [facility] [place] [id number] [address] [place] [address] [place] Platelets (Bld) [#/Vol] 192 10*3/uL Normal 150-400 [facility] Comment on above: Order Comment: Speci men Type: BLOOD SPECIMEN Ordering Facility: [facility] Address: [address] [place] [address] Performed By: #### 5 8410-2 #### [facility] CLIA [id number] [address] [place] [address] [place] RBC (Bld) [#/Vol] 4.91 10*6/uL Normal 3.90-5.20 [facility] Comment on above: Order Comment: Speci men Type: BLOOD SPECIMEN Ordering Facility: [facility] Address: [address] [place] [address] Performed By: #### 5 8410-2 #### [facility] CLIA [id number] [address] [place], [place] [address] [place] [address] [place] WBC (Bld) [#/Vol] 8.95 10*3/uL Normal 3.70-11.00 [facility] Comment on above: Order Comment: Speci men Type: BLOOD SPECIMEN Ordering Facility: [facility] Address: [address] [place] [address] Performed By: #### 5 8410-2 #### [facility] CLIA [id number] [address] [place] [address] [place] Erythrocyte distribution width (RBC) [Ratio] 11.9 % 11.5 - 15.0 % [facility] Hematocrit (Bld) [Volume fraction] 45.7 % 36.0 - 46.0 % [facility] Hemoglobin (Bld) [Mass/Vol] 15.5 g/dL 11.5 - 15.5 g/dL [facility] MCH (RBC) [Entitic mass] 31.6 pg 26.0 - 34.0 pg [facility] MCHC (RBC) [Mass/Vol] 33.9 g/dL 30.5 - 36.0 g/dL [facility] MCV (RBC) [Entitic vol] 93.1 fL 80.0 - 100.0 fL [facility] Nucleated RBC (Bld) [#/Vol] <0.01 k/uL [facility] Platelet mean volume (Bld) [Entitic vol] 10.6 fL 9.0 - 12.7 fL [facility] Platelets (Bld) [#/Vol] 192 10*3/uL 150 - 400 k/uL [facility] RBC (Bld) [#/Vol] 4.91 10*6/uL 3.90 - 5.2 0 m/uL [facility] WBC (Bld) [#/Vol] 8.95 10*3/uL 3.70 - 11. 00 k/uL [facility] CK CREATINE KINASEon 023 CK [Catalytic activity/Vol] 119 U/L 42 - 196 U/L [facility] CK SerPl-cCncon 06-24-2023 CK [Catalytic activity/Vol] 119 U/L Normal 42-196 [facility] Comment on above: Order Comment: Speci men Type: BLOOD SPECIMEN Ordering Facility: [facility] Address: [facility] [place] [address] Performed By: #### 2 157-6, 1987-11, 94363-6 #### [facility] CLIA [id number] [address] [facility] [address] CNOVon 06-24-2023 CNOV Office Visit (RHEUAV ) LYNETTE HAIRSTON ([id number]) 1975 F Date Time Provider Department 06/24/23 [...] bursa injection Informed Consent Consent Obtained: Verbal [place] Protocol A moment to CARE was completed. [...] myopthay and (more content not included)... Normal [facility] CRP SerPl-mCncon 06-24-2023 CRP [Mass/Vol] 0.6 mg/dL Normal <0.9 [place] [facility] Comment on above: Order Comment: Speci ivon Type: BLOOD SPECIMEN Ordering Facility: [facility] Address: [address] [place] [address] Performed By: #### 2 157-6, 1987-11, #### [facility] CLIA [id number] [address] [place] [address] [place] Comprehensive metabolic 2000 panelon 06-24-2023 Albumin [Mass/Vol] 4.5 g/dL Normal 3.9-4.9 [facility] Comment on above: Order Comment: Speci ivon Type: BLOOD SPECIMEN Ordering Facility: [facility] Address: [address] [place] [address] Performed By: #### 2 157-6, 1987-11, #### [facility] CLIA [id number] [address] [place] [address] [place] ALP [Catalytic activity/Vol] 46 U/L Normal 34-123 [facility] Comment on above: Order Comment: Speci men Type: BLOOD SPECIMEN Ordering Facility: [facility] Address: [address] [place] [address] Performed By: #### 2 157-6, 1987-11, #### [facility] CLIA [id number] [address] [place] [address] [place] ALT [Catalytic activity/Vol] 46 U/L High 7-38 [facility] Comment on above: Order Comment: Speci men Type: BLOOD SPECIMEN Ordering Facility: [facility] Address: [address] [place] [address] Performed By: #### 2 157-6, 1987-11, #### [facility] CLIA [id number] [address] [place] [address] [place] Anion gap [Moles/Vol] 8 mmol/L Low 9-18 [facility] Comment on above: Order Comment: Speci men Type: BLOOD SPECIMEN Ordering Facility: [facility] Address: [address] [place] [address] Performed By: #### 2 157-6, 1987-11, #### [facility] CLIA [id number] [address] [place] [address] [place] AST [Catalytic activity/Vol] 39 U/L High 13-35 [facility] Comment on above: Order Comment: Speci men Type: BLOOD SPECIMEN Ordering Facility: [facility] Address: [address] [place] [address] Performed By: #### 2 157-6, 1987-11, #### [facility] CLIA [id number] [address] [place] [address] [place] Bilirubin [Mass/Vol] 1.2 mg/dL Normal 0.2-1.3 [facility] Comment on above: Order Comment: Speci men Type: BLOOD SPECIMEN Ordering Facility: [facility] Address: [address] [place] [address] Performed By: #### 2 157-6, 1987-11, #### [facility] CLIA [id number] [place] [address] [place] Calcium [Mass/Vol] 9.5 mg/dL Normal 8.5-10.2 [facility] Comment on above: Order Comment: Speci men Type: BLOOD SPECIMEN Ordering Facility: [facility] Address: [address] [place] [address] Performed By: #### 2 157-6, 1987-11, #### [facility] CLIA [id number] [place] [address] [place] Chloride [Moles/Vol] 105 mmol/L Normal 97-105 [facility] Comment on above: Order Comment: Speci men Type: BLOOD SPECIMEN Ordering Facility: [facility] Address: [address] [place] [address] Performed By: #### 2 157-6, 1987-11, #### [facility] CLIA [id number] [address] [facility] [address] [place] CO2 [Moles/Vol] 27 mmol/L Normal 22-30 [facility] Comment on above: Order Comment: Speci men Type: BLOOD SPECIMEN Ordering Facility: [facility] Address: [address] [place] [address] Performed By: #### 2 157-6, 1987-11, #### [facility] CLIA [id number] [address] [place] [address] [place] Creatinine [Mass/Vol] 1.10 mg/dL High 0.58-0.96 [facility] Comment on above: Order Comment: Speci men Type: BLOOD SPECIMEN Ordering Facility: [facility] Address: [address] [place] [address] Performed By: #### 2 157-6, #### [facility] IA [id number] [address] [facility] [address] [place] Creatinine and Glomerular filtration rate.predicted panel (S/P/Bld) 62 mL/min/1.73m??? Normal >=60 [facility] Comment on above: Order Comment: Speci men Type: BLOOD SPECIMEN Ordering Facility: [facility] Address: [address] [place] [address] Result Comment: Flroes mated Glomerular Filtration Rate (eGFR) is calculated [...] #### [facility] CLIA [id number] [address] [place] [address] [place] Glucose [Mass/Vol] 94 mg/dL Normal 74-99 [facility] Comment on above: Order Comment: Speci men Type: BLOOD SPECIMEN Ordering Facility: [facility] Address: [address] [id number] Result Comment: The [place] Diabetes Association (ADA) provides guidance for cutoff [...] Standards of Medical Care in Diabetes 2016, [place] Diabetes Association. Diabetes Care. 2016.39(Suppl 1). Performed By: #### 2 157-6, #### [facility] CLIA [id number] [address] [place] [address] [place] Potassium [Moles/Vol] 4.2 mmol/L Normal 3.7-5.1 [facility] Comment on above: Order Comment: Speci men Type: BLOOD SPECIMEN Ordering Facility: [facility] Address: [address] [place] [address] Performed By: #### 2 157-, #### [facility] CLIA [id number] [address] [place] [address] [place] Protein [Mass/Vol] 7.3 g/dL Normal 6.3-8.0 [facility] Comment on above: Order Comment: Speci men Type: BLOOD SPECIMEN Ordering Facility: [facility] Address: [address] [place] [address] Performed By: #### 2 157-6, #### [facility] CLIA [id number] [address] [place] [address] [place] Sodium [Moles/Vol] 140 mmol/L Normal 136-144 [facility] Comment on above: Order Comment: Speci men Type: BLOOD SPECIMEN Ordering Facility: [facility] Address: [address] [place] [address] Performed By: #### 2 157-6, #### [facility] CLIA [id number] [address] [place] [address] [place] Urea nitrogen [Mass/Vol] 12 mg/dL Normal 7-21 [facility] Comment on above: Order Comment: Speci men Type: BLOOD SPECIMEN Ordering Facility: [facility] Address: [address] [place] [address] Performed By: #### 2 157-6, 1987-11, #### [facility] CLIA [id number] [address] [place] [address] [place] Albumin [Mass/Vol] 4.5 g/dL 3.9 - 4.9 g/dL [facility] ALP [Catalytic activity/Vol] 46 U/L 34 - 123 U/L [facility] ALT [Catalytic activity/Vol] 46 U/L High 7 - 38 U/L [facility] Anion gap [Moles/Vol] 8 mmol/L Low 9 - 18 mmol/L [facility] AST [Catalytic activity/Vol] 39 U/L High 13 - 35 U/L [facility] Bilirubin [Mass/Vol] 1.2 mg/dL 0.2 - 1.3 mg/dL [facility] Calcium [Mass/Vol] 9.5 mg/dL 8.5 - 10. 2 mg/dL [facility] Chloride [Moles/Vol] 105 mmol/L 97 - 105 mmol/L [facility] CO2 [Moles/Vol] 27 mmol/L 22 - 30 mmol/L [facility] Creatinine [Mass/Vol] 1.10 mg/dL High 0.58 - 0.96 mg/dL [facility] Estimated Glomerular Filtration Rate 62 mL/min/1.73m >=60 mL/min/1.73m [facility] Glucose [Mass/Vol] 94 mg/dL 74 - 99 mg/dL [facility] Potassium [Moles/Vol] 4.2 mmol/L 3.7 - 5.1 mmol/L [facility] Protein [Mass/Vol] 7.3 g/dL 6.3 - 8.0 g/dL [facility] Sodium [Moles/Vol] 140 mmol/L 136 - 144 mmol/L [facility] Urea nitrogen [Mass/Vol] 12 mg/dL 7 - 21 mg/dL [facility] ESR Westergren method (Bld) [Velocity]on 06-24-2023 ESR (Bld) [Velocity] 23 mm/h High 0 - 20 mm/hr [facility] ESR (Bld) [Velocity] 23 mm/h High 0-20 [facility] Comment on above: Order Comment: Speci men Type: BLOOD SPECIMEN Ordering Facility: [facility] Address: [address] [place] [address] Performed By: #### 2 157-6, 1987-5, 41624-8 #### [facility] CLIA [id number] [address] [facility] [address] [place] No Panel Informationon 06-24 [facility] XR LUMBAR 3V AP/LAT/L5-S1on 06-24-2023 [...] DEGENERATIVE CHANGES AND LEVOSCOLIOSIS SIMILAR TO PRIOR. Cold Working Inspector: MARQUEZ Transcribe Date/Time: Jun 24 2023 1:12P Dictated by : BRADY FELDMAN MD This examination was interpreted and the report reviewed and electronically signed by: BRADY FELDMAN MD on Jun 24 2023 1:14PM EST [id number] [facility] 05-12-[address] [facility] Telephone (RHEUAV) LYNETTE HAIRSTON ([id number]) 1975 F Date Time Provider Department 05/12/23 NOEMI PHAM During your visit today, we recorded the following information about you: Refugio Mosqueda 05/12/2023 1:20 PM Signed Ashwini from [employer] is calling Noemi Pham MD today to clarify medication. When they were filling the enbrel, it flagged that the patient has a thrombocytopenia diagnosis. They need to clarify that the provider is aware. They cannot send the medication until they get that clarification. [phone] Patient has been identified by name and birthdate. Duration of symptoms: N/A Person calling: pharmacy: [facility] Call patient at: on cell [phone] (home) [phone] (cell) Was an appointment scheduled: No Closing statement: Results or non-symptom based questions: Thank you for calling [facility], your call will be returned within the next business day. Allison Rodríguez OCCA 05/12/2023 1:29 PM Signed Faxed [employer], patient is no longer on medication Jonelle Flores Ma 05/19/2023 9:12 AM Signed Patient calling back. States she is on Enbrel. She takes it once a week and has not had it in about 2 weeks. She is starting to get pain. She is no longer on Plaquenil. Asking for the office to call [employer] to get this straightened out. She only [...] Days Visit Type Date Time Department [facility] 06/24/2023 11:20 AM [facility] Last Ophthalmology Check for Plaquenil (Hydroxychloroquine) [...] 05/19/2023 10:06 AM Signed Spoke with patient. [facility] had held medication due to dx of thrombocytopenia. I spoke with [facility] and informed them patient was cleared [...] acting, (LOPR (more content not included)... Normal [facility] Miscellaneouson 03-24-2023 Send Out Report Normal [facility] Comment on above: Result Comment: PERF ORMED AT [facility] [address] [place] [id number] (NOTE) Fat, Fecal Quantitative 72-Hour Collection (Includes Homogenization) [facility] test code 7222463 Fat, Fecal Quantitative 72-Hour 4.2 g/d (Ref Interval: 0.0-6.0) INTERPRETIVE INFORMATION: Fat, Fecal Quantitative 72-Hour Collection Access complete set of age- and/or gender-specific reference intervals for this test in the [facility] Test Directory ([employer]). This test was developed and its performance characteristics determined by [employer]. It has not been cleared or approved [...] By: #### C MIS #### [facility] [address] [place] [address] Pattern Grader: Richie Alexis DO Miscellaneouson 03-22-2023 Test Name 72 Normal [facility] Comment on above: Performed By: #### C MIS #### [facility] [address] [place] [address] Pattern Grader: Richie Alexis DO CNPNon 03-09-[address] [facility] Telephone (coRankUAV) LYNETTE HAIRSTON ([id number]) 1975 F Date Time Provider Department 03/09/23 [...] Status:Closed by JUD HESS LPN on 03/09/23 [facility] 01-28-2023 NAVE[facility] Telephone (HYUN) LYNETTE HAIRSTON ([id number]) 1975 F Date Time Provider Department 01/28/23 [...] on [facility]/31/23 [facility] Telephone (SUNGUAV) LYNETTE HAIRSTON ([id number]) 1975 F Date Time Provider Department 01/26/23 [...] 01/26/2023 11:13 AM Signed Message sent on [facility] regarding this . Noemi Pham MD Allergies [...] Status:Closed by NOEMI PHAM on 01/26/23 Normal [facility] ANURAG BY IFA WITH REFLEXon Nuclear Ab IF (S) [Titer] Negative Normal Negative [facility] Comment on above: Order Comment: Speci men Type: BLOOD SPECIMEN Ordering Facility: [facility] Address: [address] [place] [phone] Result Comment: Anti -nuclear antibody test is used as an aid in diagnosis of systemic autoimmune diseases. Where positive and clinically warranted, follow-up using disease-specific testing is recommended. Low positive titers are not uncommon with advanced age, certain chronic infections, and malignancies among others. Test methodology: Indirect fluorescence immunoassay (IFA) using HEp-2 cells. Performed By: #### 1 761-6 #### [facility] CLIA [id number] [address] [place] [address] Aldolase SerPl-cCncon 2022 Aldolase [Catalytic activity/Vol] 8.8 mU/mL High 1.5-8.1 [facility] Comment on above: Order Comment: [place] Type: BLOOD SPECIMEN Ordering Facility: [facility] Address: [address] [address] Result Comment: This test was developed and its performance characteristics determined by [facility] Pathology and Laboratory Medicine [place] ([facility]). It has not been cleared or approved by the FDA. -[facility] is regulated under CLIA as qualified to perform high-complexity testing. This test is used for clinical purposes. It should not be regarded as investigational or for research. Performed By: #### 1 761-6 #### [facility] CLIA [id number] [address] [place] [address] [place] CK SerPl-cCncon 01-14-2023 CK [Catalytic activity/Vol] 110 U/L Normal 42-196 [facility] Comment on above: Order Comment: [place] Type: BLOOD SPECIMEN Ordering Facility: [facility] Address: [address] [place] [address] Performed By: #### 1 761-6 #### [facility] CLIA [id number] [address] [place] [address] OF [place] CNOVon 01-14-2023 CNOV Office Visit (HYUN ) LYNETTE HAIRSTON ([id number]) 1975 F Date Time Provider Department 01/14/23 11:00 AM NOEMI PHAM During your visit today, we recorded the following information about you: Pulse Blood pressure Weight Height 103/minute 122/81 105.7 kg 1.676 m Noemi Pham MD 01/24/2023 10:36 AM Signed Lyntete Prince is a 41 year old female [...] [R21] Order(s):HISTONE IGG LAUREANO [SQHISTN] Order #: [id number] FUTURE ANURAG BY IFA WITH REFLEX [SQANAIFR] Order #: [id number] FUTURE ANURAG BLOOD [SQANAS] Order #: [id number] FUTURE ANTI LEVY ID [SQENAID] Order #: [id number] FUTURE SED RATE WESTERGREN [SQWSR] Order #: [id number] FUTURE C-REACTIVE PROTEIN (CRP) [SQCRP] Order #: [id number] FUTURE RHEUMATOID FACTOR BL [SQRF] Order #: [id number] FUTURE CK CREATINE KINASE [SQCK] Order #: [id number] FUTURE ALDOLASE BLD [SQALD] Order #: [id number] FUTURE [] methylPREDN (more content not included)... Normal [facility] CRP SerPl-mCncon 01-14-2023 CRP [Mass/Vol] 0.6 mg/dL Normal <0.9 [facility] Comment on above: Order Comment: Speci men Type: BLOOD SPECIMEN Ordering Facility: [facility] Address: [address] [place] [address] Performed By: #### 2 157-6, 1987-, 71188-1 #### [facility] CLIA [id number] [address] [facility] [address] [place] ESR Westergren method (Bld) [Velocity]on 01-14-2023 ESR (Bld) [Velocity] 16 mm/h Normal 0-20 [facility] Comment on above: Order Comment: Speci men Type: BLOOD SPECIMEN Ordering Facility: [facility] Address: [address] [place] [address] Performed By: #### 1 761-6 #### [facility] CLIA [id number] [address] [place] [address] [place] HISTONE IGG ABYon 01-14-2023 HISTONE 0.1 Units Normal <1.0 [facility] Comment on above: Order Comment: [place] Type: BLOOD SPECIMEN Ordering Facility: [facility] Address: [address] [place] [address] Performed By: #### 1 761-6 #### [facility] CLIA [id number] [address] [place] [address] [place] HISTONE IGG QUALITATIVE Negative Normal [facility] Comment on above: Order Comment: [place] Type: BLOOD SPECIMEN Ordering Facility: [facility] Address: [address] [place] [address] Result Comment: Anti -histone IgG antibody test [...] By: #### 1 761-6 #### [facility] CLIA [id number] [address] [place] [address] [place] Nuclear Ab IA Ql (S)on 01-14 ANURAG SCR QUAL Negative Normal Negative [facility] Comment on above: Order Comment: Mert [place]le Type: BLOOD SPECIMEN Ordering Facility: [facility] Address: [address] [place] [address] Result Comment: The qualitative antinuclear antibody screen test performed using the following antigens: dsDNA, Chromatin, Ribosomal P, SS-A 60, SS-A 52, SS-B, Sm, SmRNP, MORTGAGE PROCESSING CLERK A, MORTGAGE PROCESSING CLERK 68, Scl-70, Odalis-1, and Centromere B. Methodology: Multiplex flow immunoassay. Performed By: #### 1 761-6 #### [facility] CLIA [id number] [address] [place] [address] [place] Rheumatoid fact SerPl-aCncon 01-14-2023 Rheumatoid factor Qn [IU]/mL High <16 [facility] Comment on above: Order Comment: Speci men Type: BLOOD SPECIMEN Ordering Facility: [facility] Address: [address] [place] [address] Performed By: #### 1 1572-5 #### [facility] CLIA [id number] [address] [facility] [place] [place] [address] [place] [facility] CNOVon 12-24-2022 CNOV Office Visit (NENMMN ) LYNETTE HAIRSTON ([id number]) 1975 F Date Time Provider Department 12/24/22 1:00 PM LIZ CONNOLLY NENMMN During your visit today, we recorded the following information about you: Pulse Blood pressure 106/minute 121/84 Liz Connolly MD 01/04/2023 10:43 AM Signed S[facility] [place] [facility] Note- Established patient Provider: Liz Connolly [...] she has been following with her director of marketing communications with every 6 monthly appointments to monitor [...] There is also been weight gain since [facility] (going from 223 pounds to [...] current facility-administ (more content not included)... Normal [facility] EMG(NEURO/NI)on 12-24-2022 [facility] Surgical Pathologyon 023 Surgical Pathology (NOTE) Path Number: [id number] -- Diagnosis -- Colon, random biopsies: Normal [...] is no dysplasia or malignancy. Processing Lab: [facility] [address] [place] [address] Interpretation Performed at [facility] [address] [place], [place] SURGICAL PATHOLOGY CONSULTATION Patient Name: LYNETTE HAIRSTON. Med Rec: [id number] [facility] ANATOMIC PATHOLOGY [address] [place] [address]. [place], [place] [address] [facility] Comment on above: Performed By: #### P PPVS #### [address] [address] Pattern Grader: MD Mary Velazquez 12-01-[address] [facility] Telephone (coRankWINIFRED) LYNETTE HAIRSTON ([id number]) 1975 F Date Time Provider Department 12/01/22 [...] Fully Assessed Reason for Visit: Insurance Authorization [[id number]] Cmt: Enbrel Prescriptions as of 12/01/2022 - [...] Status:Closed by INOCENCIA BUI LPN on 12/01/22 [facility] Mary 11-15-2022 NAVEED Telephone (coRankUAV) LYNETTE HAIRSTON ([id number]) 1975 F Date Time Provider Department 11/15/22 NOEMI PHAM During your visit today, we recorded the following information about you: Noemi Pham MD 11/15/2022 1:23 PM Signed Please tell her I received labs from [facility] and her cpk and aldolase returned [...] Status:Closed by NOEMI PHAM on 11/15/22 Normal [facility] Orders Onlyon 10-28-2022 Orders Only [id number] Refugio Hairston 1975 Provider Department Center 10/28/2022 CRISTHIAN MARIE [facility] Family History Family Status - Relation Status Age at Daughter Notes: pancreatic insuffiency Son Notes: Crohns Normal [facility] Labon 09-08-2022 Lab [id number] Refugio Hairston 1975 Provider Department Center 09/08/[address] [place] [address] MP LAB RESOURCE ADILENE DRAW Medical [facility] Family History Family Status - Relation Status Age at Daughter Notes: pancreatic insuffiency Son Notes: Crohns Normal [facility] Office Visiton 09-08-2022 Follow-up visit [id number] Refugio Hairston 1975 Provider Department Center 09/08/2022 CRISTHIAN MARIE [facility] Family History Family Status - Relation Status Age at Daughter Notes: pancreatic insuffiency Son Notes: Crohns Level of Service:46603 [place] OFFICE/OUTPATIENT ESTABLISHED MOD MDM 30-39 MIN Reason for Visit and Comments: Follow-up [570044] Diarrhea [35] Normal [facility] PANCREATIC ELASTASE, FECALon 09-08-2022 PANCREATIC ELASTASE, FECAL >800 Normal >=100 [facility] Comment on above: Result Comment: REFE RENCE INTERVAL: Pancreatic Elastase Fecal by Immunoassay Less than 100 ug/g............Severe insufficiency 100 - 199 ug/g................Moderate insufficiency 200 ug/g or greater...........Normal INTERPRETIVE INFORMATION: Pancreatic Elastase Fecal by Immunoassay Reference intervals do not apply for infants less than one month old. Performed by [facility], [address] [place] [address] www.[employer], Vito Arteaga MD, PHD, Lab. Director Performed By: #### L AB979 ####[facility] ([address] [address] Aldolase SerPl-cCncon 2022 Aldolase [Catalytic activity/Vol] 9.9 mU/mL High 1.5-8.1 [facility] Comment on above: Order Comment: Speci men Type: BLOOD SPECIMEN Ordering Facility: [facility] Address: [address] [address] Result Comment: This test was developed and its performance characteristics determined by [facility] Pathology and Laboratory Medicine [place] ([facility]). It has not been cleared or approved by the FDA. -[facility] is regulated under CLIA as qualified to perform high-complexity testing. This test is used for clinical purposes. It should not be regarded as investigational or for research. Performed By: #### 1 761-6 #### [facility] CLIA [id number] [address] [place] [address] [place] C-REACTIVE PROTEIN (CRP)on 0 08-11-2022 CRP [Mass/Vol] 0.8 mg/dL <0.9 mg/dL [facility] CBC panel Auto (Bld)on 08-11 Erythrocyte distribution width (RBC) [Ratio] 11.7 % Normal 11.5-15.0 [facility] Comment on above: Order Comment: Speci men Type: BLOOD SPECIMEN Ordering Facility: [facility] Address: [address] Performed By: #### 1 761-6 #### [facility] CLIA [id number] [address] [place] Hematocrit (Bld) [Volume fraction] 44.1 % Normal 36.0-46.0 [facility] Comment on above: Order Comment: Speci men Type: BLOOD SPECIMEN Ordering Facility: [facility] Address: [address] [address] Performed By: #### 1 761-6 #### [facility] CLIA [id number] [address] [place] [address] [place] Hemoglobin (Bld) [Mass/Vol] 15.2 g/dL Normal 11.5-15.5 [facility] Comment on above: Order Comment: Speci men Type: BLOOD SPECIMEN Ordering Facility: [facility] Address: [address] [place] [address] Performed By: #### 1 761-6 #### [facility] CLIA [id number] [facility] [address] STATES [place] MCH (RBC) [Entitic mass] 31.7 pg Normal 26.0-34.0 [facility] Comment on above: Order Comment: Speci men Type: BLOOD SPECIMEN Ordering Facility: [facility] Address: [address] [place] [address] Performed By: #### 1 761-6 #### [facility] CLIA [id number] [address] [place] [address] [place] MCHC (RBC) [Mass/Vol] 34.5 g/dL Normal 30.5-36.0 [facility] Comment on above: Order Comment: Speci men Type: BLOOD SPECIMEN Ordering Facility: [facility] Address: [address] [place] [address] Performed By: #### 1 761-6 #### [facility] CLIA [id number] [address] [place] [address] [place] MCV (RBC) [Entitic vol] 92.1 fL Normal 80.0-100.0 [facility] Comment on above: Order Comment: Speci men Type: BLOOD SPECIMEN Ordering Facility: [facility] Address: [address] [place], [place] [address] Performed By: #### 1 761-6 #### [facility] CLIA [id number] [address] [place] [address] [place] Nucleated RBC (Bld) [#/Vol] 10*3/uL Normal <0.01 [facility] Comment on above: Order Comment: Speci men Type: BLOOD SPECIMEN Ordering Facility: [facility] Address: [address] Performed By: #### 1 761-6 #### [facility] CLIA [id number] [address] [place] [address] [place] Platelet mean volume (Bld) [Entitic vol] 11.0 fL Normal 9.0-12.7 [facility] Comment on above: Order Comment: Speci men Type: BLOOD SPECIMEN Ordering Facility: [facility] Address: [address] Performed By: #### 1 761-6 #### [facility] CLIA [id number] [address] [place] [address] [place] Platelets (Bld) [#/Vol] 205 10*3/uL Normal 150-400 [facility] Comment on above: Order Comment: Speci men Type: BLOOD SPECIMEN Ordering Facility: [facility] Address: [address] Performed By: #### 1 761-6 #### [facility] CLIA [id number] [address] [place] [address] [place] RBC (Bld) [#/Vol] 4.79 10*6/uL Normal 3.90-5.20 [facility] Comment on above: Order Comment: Speci men Type: BLOOD SPECIMEN Ordering Facility: [facility] Address: [address] Performed By: #### 1 761-6 #### [facility] CLIA [id number] [address] [place] [address] [place] WBC (Bld) [#/Vol] 9.49 10*3/uL Normal 3.70-11.00 [facility] Comment on above: Order Comment: Speci men Type: BLOOD SPECIMEN Ordering Facility: [facility] Address: [address] [place], [place] [address] Performed By: #### 1 761-6 #### [facility] CLIA [id number] [address] STATES OF [facility] Erythrocyte distribution width (RBC) [Ratio] 11.7 % 11.5 - 15.0 % [facility] Hematocrit (Bld) [Volume fraction] 44.1 % 36.0 - 46.0 % [facility] Hemoglobin (Bld) [Mass/Vol] 15.2 g/dL 11.5 - 15.5 g/dL [facility] MCH (RBC) [Entitic mass] 31.7 pg 26.0 - 34.0 pg [facility] MCHC (RBC) [Mass/Vol] 34.5 g/dL 30.5 - 36.0 g/dL [facility] MCV (RBC) [Entitic vol] 92.1 fL 80.0 - 100.0 fL [facility] Nucleated RBC (Bld) [#/Vol] <0.01 k/uL [facility] Platelet mean volume (Bld) [Entitic vol] 11.0 fL 9.0 - 12.7 fL [facility] Platelets (Bld) [#/Vol] 205 10*3/uL 150 - 400 k/uL [facility] RBC (Bld) [#/Vol] 4.79 10*6/uL 3.90 - 5.2 0 m/uL [facility] WBC (Bld) [#/Vol] 9.49 10*3/uL 3.70 - 11. 00 k/uL [facility] CK CREATINE KINASEon 023 CK [Catalytic activity/Vol] 115 U/L 42 - 196 U/L [facility] CK SerPl-cCncon 08-11-2022 CK [Catalytic activity/Vol] 115 U/L Normal 42-196 [facility] Comment on above: Order Comment: Speci men Type: BLOOD SPECIMEN Ordering Facility: [facility] Address: [address] [place] [address] Performed By: #### 1 761-6 #### [facility] CLIA [id number] [address] [place] CNOVon 08-11-2022 CNOV Office Visit (RHEUAV ) LYNETTE HAIRSTON ([id number]) 1975 F Date Time Provider Department 08/11/22 [...] 6m Check following: -none MD Inocencia Lopez ORACLE SOFTWARE ENGINEER 08/11/2022 10:21 AM Signed Methylprednisolone injection verified. 80mg. Jud Hess ORACLE SOFTWARE ENGINEER 08/11/2022 11:22 AM Signed Patient given Depomedrol 80 mg IM in the lef (more content not included)... Normal [facility] CRP SerPl-mCncon 08-11-2022 CRP [Mass/Vol] 0.8 mg/dL Normal <0.9 [facility] Comment on above: Order Comment: Speci men Type: BLOOD SPECIMEN Ordering Facility: [facility] Address: [address] [place] [id number] Performed By: #### 2 4321987-11 #### [facility] CLIA [id number] [address] [facility] [place] [address] [place] Comprehensive metabolic 2000 panelon 08-11-2022 Albumin [Mass/Vol] 4.6 g/dL Normal 3.9-4.9 [facility] Comment on above: Order Comment: Speci men Type: BLOOD SPECIMEN Ordering Facility: [facility] Address: [address] [place] [id number] Performed By: #### 2 4321987-11 #### [facility] CLIA [id number] [address] [place] [address] [place] ALP [Catalytic activity/Vol] 44 U/L Normal 34-123 [facility] Comment on above: Order Comment: Speci men Type: BLOOD SPECIMEN Ordering Facility: [facility] Address: [address] Performed By: #### 2 4323-02, 1987-11 #### [facility] CLIA [id number] [address] [place] [address] [place] ALT [Catalytic activity/Vol] 32 U/L Normal 7-38 [facility] Comment on above: Order Comment: Speci men Type: BLOOD SPECIMEN Ordering Facility: [facility] Address: [address] Performed By: #### 2 4323-02, 1987-11 #### [facility] IA [id number] [address] [place] [address] [place] Anion gap [Moles/Vol] 9 mmol/L Normal 9-18 [facility] Comment on above: Order Comment: Speci men Type: BLOOD SPECIMEN Ordering Facility: [facility] Address: [address] Performed By: #### 2 4323-02, 1987-11 #### [facility] IA [id number] [address] [place] [address] [place] AST [Catalytic activity/Vol] 26 U/L Normal 13-35 [facility] Comment on above: Order Comment: Speci men Type: BLOOD SPECIMEN Ordering Facility: [facility] Address: [address] Performed By: #### 2 4323-02, 1987-11 #### [facility] IA [id number] [address] [place] [address] [place] Bilirubin [Mass/Vol] 0.9 mg/dL Normal 0.2-1.3 [facility] Comment on above: Order Comment: Speci men Type: BLOOD SPECIMEN Ordering Facility: [facility] Address: [address] Performed By: #### 2 4323-02, 1987-11 #### [facility] CLIA [id number] [address] [place] [address] [place] Calcium [Mass/Vol] 10.5 mg/dL High 8.5-10.2 [facility] Comment on above: Order Comment: Speci men Type: BLOOD SPECIMEN Ordering Facility: [facility] Address: [address] [place] [address] Performed By: #### 2 4323-02, 1987-11 #### [facility] CLIA [id number] [address] [place] [address] [place] Chloride [Moles/Vol] 102 mmol/L Normal 97-105 [facility] Comment on above: Order Comment: Speci men Type: BLOOD SPECIMEN Ordering Facility: [facility] Address: [address] [place] [address] Performed By: #### 2 4323-02, 1987-11 #### [facility] IA [id number] [address] [place] [address] [place] CO2 [Moles/Vol] 29 mmol/L Normal 22-30 [facility] Comment on above: Order Comment: Speci men Type: BLOOD SPECIMEN Ordering Facility: [facility] Address: [address] [place] [address] Performed By: #### 2 4323-02, 1987-11 #### [facility] CLIA [id number] [address] [place] [address] [place] Creatinine [Mass/Vol] 0.93 mg/dL Normal 0.58-0.96 [facility] Comment on above: Order Comment: Speci men Type: BLOOD SPECIMEN Ordering Facility: [facility] Address: [address] [place] Performed By: #### 2 4323-02, 1987-11 #### [facility] IA [id number] [address] [place] [address] [place] ESTIMATED GLOMERULAR FILTRATION RATE 76 mL/min/1.73m??? Normal >=60 [facility] Comment on above: Order Comment: Mert del valle Type: BLOOD SPECIMEN Ordering Facility: [facility] Address: [place] [address] Result Comment: Flores mated Glomerular Filtration Rate [...] #### [facility] CLIA [id number] [address] [facility] [address] [place] Glucose [Mass/Vol] 97 mg/dL Normal 74-99 [facility] Comment on above: Order Comment: Mert del valle Type: BLOOD SPECIMEN Ordering Facility: [facility] Address: [place] [address] Result Comment: The [place] Diabetes Association (ADA) provides guidance for cutoff [...] Standards of Medical Care in Diabetes 2016, [place] [employer] Association. Diabetes Care. 2016.39(Suppl 1). Performed By: #### 2 4323-8, 1987-11 #### [facility] CLIA [id number] [address] [facility] [place] [address] [place] Potassium [Moles/Vol] 4.7 mmol/L Normal 3.7-5.1 [facility] Comment on above: Order Comment: Mert del valle Type: BLOOD SPECIMEN Ordering Facility: [facility] Address: [place] [address] Performed By: #### 2 43238, 1987-11 #### [facility] CLIA [id number] [address] [place] [address] [place] Protein [Mass/Vol] 7.6 g/dL Normal 6.3-8.0 [facility] Comment on above: Order Comment: Speci men Type: BLOOD SPECIMEN Ordering Facility: [facility] Address: [address] Performed By: #### 2 43209-29, 1987-11 #### [facility] CLIA [id number] [address] [place] [address] [place] Sodium [Moles/Vol] 140 mmol/L Normal 136-144 [facility] Comment on above: Order Comment: Speci men Type: BLOOD SPECIMEN Ordering Facility: [facility] Address: [address] [place] [address] Performed By: #### 2 43209-29, 1987-11 #### [facility] CLIA [id number] [address] [place] [address] [place] Urea nitrogen [Mass/Vol] 15 mg/dL Normal 7-21 [facility] Comment on above: Order Comment: Speci men Type: BLOOD SPECIMEN Ordering Facility: [facility] Address: [facility] [place] [address] Performed By: #### 2 43238, 1987-11 #### [facility] CLIA [id number] [address] [place] [id number] [place] Albumin [Mass/Vol] 4.6 g/dL 3.9 - 4.9 g/dL [facility] ALP [Catalytic activity/Vol] 44 U/L 34 - 123 U/L [facility] ALT [Catalytic activity/Vol] 32 U/L 7 - 38 U/L [facility] Anion gap [Moles/Vol] 9 mmol/L 9 - 18 mmol/L [facility] AST [Catalytic activity/Vol] 26 U/L 13 - 35 U/L [facility] Bilirubin [Mass/Vol] 0.9 mg/dL 0.2 - 1.3 mg/dL [facility] Calcium [Mass/Vol] 10.5 mg/dL High 8.5 - 10. 2 mg/dL [facility] Chloride [Moles/Vol] 102 mmol/L 97 - 105 mmol/L [facility] CO2 [Moles/Vol] 29 mmol/L 22 - 30 mmol/L [facility] Creatinine [Mass/Vol] 0.93 mg/dL 0.58 - 0.96 mg/dL [facility] Estimated Glomerular Filtration Rate 76 mL/min/1.73m >=60 mL/min/1.73m [facility] Glucose [Mass/Vol] 97 mg/dL 74 - 99 mg/dL [facility] Potassium [Moles/Vol] 4.7 mmol/L 3.7 - 5.1 mmol/L [facility] Protein [Mass/Vol] 7.6 g/dL 6.3 - 8.0 g/dL [facility] Sodium [Moles/Vol] 140 mmol/L 136 - 144 mmol/L [facility] Urea nitrogen [Mass/Vol] 15 mg/dL 7 - 21 mg/dL [facility] ESR Westergren method (Bld) [Velocity]on 08-11-2022 ESR (Bld) [Velocity] 23 mm/h High 0 - 20 mm/hr [facility] ESR (Bld) [Velocity] 23 mm/h High 0-20 [facility] Comment on above: Order Comment: Speci men Type: BLOOD SPECIMEN Ordering Facility: [facility] Address: [address] [place] [address] Performed By: #### 1 761-6 #### [facility] CLIA [id number] [address] [facility] [place] [address] [place] XR elbow RT 2Von 07-30-2022 XR elbow RT [address]V [facility] [address] [place] [address] XRay Report Signed Patient: Lynette Hairston MR#: [id number] 46 : 1975 Acct:[id number] Age/Sex: 47 / F ADM Date: 07/30/22 Loc: [facility] [place] Room: Type: [facility] CLI Attending Dr: Jud Monson INSULATION SPRAYER-C Copies to: GOLD Degroot Ordering Provider: GOLD [...] Martines Jr., D.ORaf07/30/2022 12:09 PM Dictation Location: [place] [address] Transcribed By: [facility] 07/30/22 1209 Dictated By: Jeremie Martines Jr, DO 07/30/22 1209 Signed By: 07/30/22 1209 [facility] Orders Onlyon 07-15-2022 Orders Only [id number] Refugio Hairston 1975 F [facility] Provider Department Center 07/15/2022 CRISTHIAN MARIE MP [facility] No family history on file [facility] Orders Onlyon 07-09-2022 Orders Only [id number] Refugio Hairston 1975 F [facility] Center 07/09/2022 CRISTHIAN MARIE MP [facility] No family history on file [facility] Orders Onlyon 06-28-2022 Orders Only [id number] Refugio Hairston 1975 F [facility] 06/28/2022 CRISTHIAN MARIE MP [facility] No family history on file [facility] 36on 06-24-2022 36 Pt calling wanting t o know what the next steps are now that her labs and stools are back. She will be having 22seedshart set up for your response to her. [facility] Orders Onlyon 06-16-2022 Orders Only [id number] Refugio Hairston 1975 F Date Provider Department Center 06/16/2022 CRISTHIAN MARIE MP [facility] No family history on file [facility] Orders Onlyon 06-07-2022 Orders Only [id number] Refugio Hairston 1975 Date Provider Department Center 06/07/2022 CRISTHIAN MARIE MP Medical Pavi No family history on file [facility] 36on 05-31-2022 36 Patient called with concerns over her platelets. Patient states that she had labs drawn recently outside of [facility] and her platelets were at [...] [facility] 05-26-2022 Follow-up visit [id number] Refugio Hairston 1975 Provider Department Center 05/26/2022 CRISTHIAN MARIE MP Medical [facility] No family history on file Level of Service:52623 [place] OFFICE/OUTPATIENT ESTABLISHED [facility] 30-39 MIN Reason for Visit and Comments: Diarrhea [35] Follow-up [371268] - Patient states she has randomly lost [...] Boubacar Louis MD 02/07/21 Final result Normal [facility] XR CERVICAL SPINE (2-3 VIEWS )Ordered By: Garfield Restrepo on 02-07-2021 No acute osseous abnormality. [employer] Phone: EXAMINATION: XRAY VIEWS OF THE CERVICAL SPINE 02/07/2021 12:33 pm COMPARISON: None. HISTORY: ORDERING SYSTEM PROVIDED HISTORY: right arm pain TECHNOLOGIST PROVIDED HISTORY: right arm pain Reason for Exam: RUE pain Acuity: Chronic Type of Exam: Initial FINDINGS: Vertebral body height and alignment are maintained. There are minimal degenerative changes. There is no evidence of fracture or malalignment. [employer] Phone: Rashid, Mhpn Incoming Radiant Results From [employer] - 02/07/2021 1:12 PM EDT EXAMINATION: XRAY [...] or malalignment. IMPRESSION: No acute osseous abnormality. [employer] Phone: [employer] Phone: Basic Metab w/rfx MGon 01-19 (cont.) Normal [facility] Comment on above: Result Comment: Aver age GFR for 40-49 years old: 99 mL/min/1.73sq m Chronic Kidney Disease: <60 mL/min/1.73sq m Kidney failure: <15 mL/min/1.73sq m eGFR calculated using average adult body mass. Additional eGFR calculator available at: http://www.[employer]/multiple_crcl_2011.htm Performed By: #### C DP, BMPX #### [place] [address] Pattern Grader: Brady Chan MD Anion gap [Moles/Vol] 8 mmol/L Low 9-17 [facility] Comment on above: Performed By: #### C DP, BMPX #### [place] [address] Pattern Grader: Brady Chan MD Calcium [Mass/Vol] 9.4 mg/dL Normal 8.6-10.4 [facility] Comment on above: Performed By: #### C DP, BMPX #### [place] [address] Pattern Grader: Brady Chan MD Chloride [Moles/Vol] 103 mmol/L Normal 98-107 [facility] Comment on above: Performed By: #### C DP, BMPX #### [place] [address] Pattern Grader: Brady Chan MD CO2 [Moles/Vol] 27 mmol/L Normal 20-31 [facility] Comment on above: Performed By: #### C DP, BMPX #### [place] [address] Pattern Grader: Brady Chan MD Creatinine [Mass/Vol] 0.73 mg/dL Normal 0.50-0.90 [facility] Comment on above: Performed By: #### C DP, BMPX #### [place] [address] Pattern Grader: Brady Chan MD GFR, Amer >60 Normal >60 [facility] Comment on above: Performed By: #### C DP, BMPX #### [place] [address] Pattern Grader: Brady Chan MD GFR,non Amer >60 Normal >60 [facility] Comment on above: Performed By: #### C DP, BMPX #### [address] [address] Pattern Grader: Brady Chan MD Glucose [Mass/Vol] 107 mg/dL High 70-99 [facility] Comment on above: Performed By: #### C DP, BMPX #### [address] [id number] Pattern Grader: Brady Chan MD Potassium [Moles/Vol] 3.8 mmol/L Normal 3.7-5.3 [facility] Comment on above: Performed By: #### C DP, BMPX #### [address] [address] Pattern Grader: Brady Chan MD Sodium [Moles/Vol] 138 mmol/L Normal 135-144 [facility] Comment on above: Performed By: #### C DP, BMPX #### [address] [address] Pattern Grader: Brady Chan MD Urea nitrogen [Mass/Vol] 11 mg/dL Normal 6-20 [facility] Comment on above: Performed By: #### C DP, BMPX #### [address] [id number] Pattern Grader: Brady Chan MD BUN/CRE Ratio NOT REPORTED Normal -20 [facility] Comment on above: Performed By: #### C DP, BMPX #### [address] [id number] Pattern Grader: Brady Chan MD Staging: NOT REPORTED Normal [facility] Comment on above: Performed By: #### C DP, BMPX #### [place] [address] Pattern Grader: Brady Chan MD CBC with Diffon 01-19-2021 Abs. Basophil 0.10 k/uL Normal 0.0-0.2 [facility] Comment on above: Performed By: #### C DP, BMPX #### [place] [address] Pattern Grader: Brady Chan MD Abs.Neutrophil (Seg) 4.30 k/uL Normal 1.8-7.7 [facility] Comment on above: Performed By: #### C DP, BMPX #### [place] [address] Pattern Grader: Brady Chan MD Basophils/100 WBC (Bld) 1 % Normal 0-2 [facility] Comment on above: Performed By: #### C DP, BMPX #### [place] [address] Pattern Grader: Brady Chan MD Eosinophils (Bld) [#/Vol] 0.10 10*3/uL Normal 0.0-0.4 [facility] Comment on above: Performed By: #### C DP, BMPX #### [place] [address] Pattern Grader: Brady Chan MD Eosinophils/100 WBC (Bld) 2 % Normal 1-4 [facility] Comment on above: Performed By: #### C DP, BMPX #### [place] [address] Pattern Grader: Brady Chan MD Erythrocyte distribution width (RBC) [Ratio] 13.0 % Normal 12.5-15.4 [facility] Comment on above: Performed By: #### C DP, BMPX #### [place] [id number] Pattern Grader: Brady Chan MD Hematocrit (Bld) [Volume fraction] 41.3 % Normal 36-46 [facility] Comment on above: Performed By: #### C DP, BMPX #### [place] [id number] Pattern Grader: Brady Chan MD Hemoglobin (Bld) [Mass/Vol] 14.1 g/dL Normal 12.0-16.0 [facility] Comment on above: Performed By: #### C DP, BMPX #### [place] [address] Pattern Grader: Brady Chan MD Lymphocytes (Bld) [#/Vol] 3.10 10*3/uL Normal 1.0-4.8 [facility] Comment on above: Performed By: #### C DP, BMPX #### [place] [id number] Pattern Grader: Brady Chan MD Lymphocytes/100 WBC (Bld) 37 % Normal 24-44 [facility] Comment on above: Performed By: #### C DP, BMPX #### [place] [id number] Pattern Grader: Brady Chan MD MCH (RBC) [Entitic mass] 31.2 pg Normal 26-34 [facility] Comment on above: Performed By: #### C DP, BMPX #### [place] [address] Pattern Grader: Brady Chan MD MCHC (RBC) [Mass/Vol] 34.2 g/dL Normal 31-37 [facility] Comment on above: Performed By: #### C DP, BMPX #### [place] [address] Pattern Grader: Brady Chan MD MCV (RBC) [Entitic vol] 91.1 fL Normal 80-100 [facility] Comment on above: Performed By: #### C DP, BMPX #### [place] [address] Pattern Grader: Brady Chan MD Monocytes (Bld) [#/Vol] 0.70 10*3/uL Normal 0.1-1.2 [facility] Comment on above: Performed By: #### C DP, BMPX #### [place] [address] Pattern Grader: Brady Chan MD Monocytes/100 WBC (Bld) 8 % Normal 2-11 [facility] Comment on above: Performed By: #### C DP, BMPX #### [place] [address] Pattern Grader: Brady Chan MD Neutrophil (Seg) 52 % Normal 36-66 [facility] Comment on above: Performed By: #### C DP, BMPX #### [place] [address] Pattern Grader: Brady Chan MD Platelet mean volume (Bld) [Entitic vol] 8.4 fL Normal 6.0-12.0 [facility] Comment on above: Performed By: #### C DP, BMPX #### [place] [address] Pattern Grader: Brady Chan MD Platelets (Bld) [#/Vol] 199 10*3/uL Normal 140-450 [facility] Comment on above: Performed By: #### C DP, BMPX #### [place] [address] Pattern Grader: Brady Chan MD RBC (Bld) [#/Vol] 4.54 10*6/uL Normal 4.0-5.2 [facility] Comment on above: Performed By: #### C DP, BMPX #### [place] [address] Pattern Grader: Brady Chan MD WBC (Bld) [#/Vol] 8.2 10*3/uL Normal 3.5-11.0 [facility] Comment on above: Performed By: #### C DP, BMPX #### [place] [address] Pattern Grader: Brady Chan MD Abs.Imm.Granulocyte NOT REPORTED Normal 0.00-0.30 [facility] Comment on above: Performed By: #### C DP, BMPX #### [place] [address] Pattern Grader: Brady Chan MD Auto Diff Performed NOT REPORTED Normal [facility] Comment on above: Performed By: #### C DP, BMPX #### [place] [address] Pattern Grader: Brady Chan MD Immature Granulocyte NOT REPORTED Normal 0 [facility] Comment on above: Performed By: #### C DP, BMPX #### [facility] [address] [place] [address] Pattern Grader: Brady Chan MD NRBC Automated NOT REPORTED Normal [facility] Comment on above: Performed By: #### C DP, BMPX #### [place] [address] Pattern Grader: Brady Chan MD Platelet Estimate NOT REPORTED Normal [facility] Comment on above: Performed By: #### C DP, BMPX #### [place] [address] Pattern Grader: Brady Chan MD RBC morphology finding Nom (Bld) NOT REPORTED Normal [facility] Comment on above: Performed By: #### C DP, BMPX #### [place] [address] Pattern Grader: Brady Chan MD WBC Morphology NOT REPORTED Normal [facility] Comment on above: Performed By: #### C DP, BMPX #### [place] [address] Pattern Grader: Brady Chan MD US DUP LOWER EXTREMITY [...] by: Gold Honeycutt MD Signed by: Gold Honeyctut MD 01/19/21 Final result Normal [facility] ABDOMEN 1VWon 08-08-2020 ABDOMEN 1VW [facility] Department of Radiology [address] [place] [id number] ======== Patient Name: LYNETTE PRINCE : [...] projections. Electronically signed: Brady Shen. Transcribed by: [email or web address], User Resident: Electronically Signed by: BRADY SHEN @ 08/08/2020 03:15 PM Normal [facility] Comment on above: Order Comment: pleas e evaluate for fecal over load AFP TUMOR MARKER [id number] AFP TUMOR MARKER 2 ng/mL Normal 0-9 [facility] Comment on above: Result Comment: INTE RPRETIVE INFORMATION: Alpha Fetoprotein Tumor Marker The [employer] DxI AFP method is used. Results [...] reference intervals for this test in the [facility] Test Directory ([employer]). Performed By: [facility] [address] [place] [address] Worm Packer: Radha Horton MD ANAon 08-08-2020 Nuclear Ab IF (S) [Titer] <1:40 Normal <1:40,1:40 [facility] Comment on above: Performed By: #### 1 0196, [address] #### [facility] [address] [place] [address], [facility] BASIC METABOLIC PANELon 07-25 Calcium [Mass/Vol] 9.3 mg/dL Normal 8.6-10.3 [facility] Comment on above: Performed By: #### 9 9909, [address] #### [facility] [address] [place] [address], [place] Chloride [Moles/Vol] 104 mmol/L Normal 98-107 [facility] Comment on above: Performed By: #### 9 9908, [address] #### [facility] [address] [place] [address], [place] CO2 [Moles/Vol] 25 mmol/L Normal 21-31 [facility] Comment on above: Performed By: #### 9 9908, 85563 #### [facility] [address] [place] [address], [place] Creatinine [Mass/Vol] 0.93 mg/dL Normal 0.60-1.20 [facility] Comment on above: Performed By: #### 9 9908, 21086 #### [facility] [address] [place] [address], [place] GFR/1.73 sq M predicted among blacks MDRD (S/P/Bld) [Vol rate/Area] mL/min/{1.73_m2} Normal >60 [facility] Comment on above: Performed By: #### 9 9908, 74261 #### [facility] [address] [place] [address], [place] GFR/1.73 sq M predicted among non-blacks MDRD (S/P/Bld) [Vol rate/Area] mL/min/{1.73_m2} Normal >60 [facility] Comment on above: Performed By: #### 9 9908, 70104 #### [facility] [address] [place] [address], [place] Glucose [Mass/Vol] 97 mg/dL Normal 70-100 [facility] Comment on above: Performed By: #### 9 9908, 66266 #### [facility] [address] [place] [address], [place] Potassium [Moles/Vol] 3.9 mmol/L Normal 3.5-5.1 [facility] Comment on above: Performed By: #### 9 9908, 30721 #### [facility] [address] Sodium [Moles/Vol] 137 mmol/L Normal 136-145 [facility] Comment on above: Performed By: #### 9 9909, 80239 #### [facility] [address] Urea nitrogen [Mass/Vol] 15 mg/dL Normal 7-25 [facility] Comment on above: Performed By: #### 9 9909, 87567 #### [facility] [address] CBC W/DIFFon 08-08-2020 ABS BASOPHILS 0.1 10*3/uL Normal 0.0-0.2 [facility] Comment on above: Performed By: #### 5 0103 #### [facility] [address] ABS IMM GRANS 0.0 10*3/uL Normal 0.0-0.2 [facility] Comment on above: Performed By: #### 5 0103 #### [facility] [address] ABS NEUTROPHILS 4.4 10*3/uL Normal 1.6-7.6 [facility] Comment on above: Performed By: #### 5 0103 #### [facility] [address] Basophils/100 WBC (Bld) 0.9 % Normal 0.0-1.0 [facility] Comment on above: Performed By: #### 5 0103 #### [facility] [address] Eosinophils (Bld) [#/Vol] 0.1 10*3/uL Normal 0.0-0.5 [facility] Comment on above: Performed By: #### 5 0103 #### [facility] [address] [place] [address], [facility] Eosinophils/100 WBC (Bld) 1.1 % Normal 0.0-6.0 [facility] Comment on above: Performed By: #### 5 0103 #### [facility] [address] [place] [address], [facility] Erythrocyte distribution width (RBC) [Ratio] 13.0 % Normal 11.5-15.0 [facility] Comment on above: Performed By: #### 5 0103 #### [facility] [address] [facility] [place] [address], [facility] Hematocrit (Bld) [Volume fraction] 42.8 % Normal 36.0-45.0 [facility] Comment on above: Performed By: #### 5 3 #### [facility] [address] [facility] [place] [address], [facility] Hemoglobin (Bld) [Mass/Vol] 14.7 g/dL Normal 12.0-15.0 [facility] Comment on above: Performed By: #### 5 0103 #### [facility] [address] [facility] [place] [address], [facility] IMMATURE GRANS 0.3 % Normal 0.0-1.0 [facility] Comment on above: Performed By: #### 5 0103 #### [facility] [address] [facility] [place] [address], [facility] Lymphocytes (Bld) [#/Vol] 2.2 10*3/uL Normal 1.2-4.0 [facility] Comment on above: Performed By: #### 5 0103 #### [facility] [address] [facility] [place] [address], [facility] Lymphocytes/100 WBC (Bld) 30.0 % Normal 20.0-45.0 [facility] Comment on above: Performed By: #### 5 0103 #### [facility] [address] MCH (RBC) [Entitic mass] 31.4 pg Normal 27.0-33.0 [facility] Comment on above: Performed By: #### 5 0103 #### [facility] [address] [facility] MCHC (RBC) [Mass/Vol] 34.3 g/dL Normal 32.0-35.0 [facility] Comment on above: Performed By: #### 5 0103 #### [facility] [address] MCV (RBC) [Entitic vol] 91.5 fL Normal 82.0-98.0 [facility] Comment on above: Performed By: #### 5 0103 #### [facility] [address] Monocytes (Bld) [#/Vol] 0.6 10*3/uL Normal 0.1-1.0 [facility] Comment on above: Performed By: #### 5 0103 #### [facility] [address] MONOS 8.6 % Normal 5.0-12.0 [facility] Comment on above: Performed By: #### 5 0103 #### [facility] [address] Neutrophils/100 WBC (Bld) 59.1 % Normal 40.0-72.0 [facility] Comment on above: Performed By: #### 5 0103 #### [facility] [address] Nucleated RBC/100 WBC (Bld) [Ratio] 0 % Normal 0-0 [facility] Comment on above: Performed By: #### 5 3 #### [facility] [address] [facility]. [address] PLAT CNT 163 10*3/uL Normal 150-400 [facility] Comment on above: Performed By: #### 5 0103 #### [facility] [address] [facility] [place] [address], [facility] RBC (Bld) [#/Vol] 4.68 10*6/uL Normal 3.80-5.00 [facility] Comment on above: Performed By: #### 5 0103 #### [facility] [address] [facility] [place] [address], [facility] WBC (Bld) [#/Vol] 7.44 10*3/uL Normal 4.00-10.60 [facility] Comment on above: Performed By: #### 5 0103 #### [facility] [address] HEPATITIS A ANTIBODY IGMon 0 08-08-2020 HEP A AB IGM NONREACTIVE Normal NONREACTIVE [facility] Comment on above: Performed By: #### 3 1422, 20402, 86107, 06506 #### [facility] [address] HEPATITIS B CORE ANTIBODYon 08-08-2020 HEP B CORE AB NONREACTIVE Normal NONREACTIVE [facility] Comment on above: Performed By: #### 3 1422, 86784, 25646, 83482 #### [facility] [address] HEPATITIS B SURFACE ANTIGEN QUALon 08-08-2020 HEP B SURF AG QUAL NONREACTIVE Normal NONREACTIVE [facility] Comment on above: Performed By: #### 3 1422, 25298, 76817, 77679 #### [facility] [address] [facility]. [address] HEPATITIS C ANTIBODYon 08-08 ANTI-HCV NONREACTIVE Normal NONREACTIVE The [facility] Comment on above: Performed By: #### 3 1422, 88741, 35514, 89491 #### [facility] [address] [place] [address], [place] LIVER BATTERYon 08-08-2020 Albumin [Mass/Vol] 4.5 g/dL Normal 3.5-5.7 [facility] Comment on above: Performed By: #### 9 99, 63701 #### [facility] [address] [place] [address], [place] ALKALINE PHOSPH 37 IU/L Normal 34-104 [facility] Comment on above: Performed By: #### 9 99, 40586 #### [facility] [address] [place] [address], [place] ALT [Catalytic activity/Vol] 56 U/L High 7-52 [facility] Comment on above: Performed By: #### 9 9908, 55524 #### [facility] [address] [place] [address], [place] AST [Catalytic activity/Vol] 38 U/L Normal 13-39 [facility] Comment on above: Performed By: #### 9 9908, 35927 #### [facility] [address] [place] [address], [place] Bilirubin [Mass/Vol] 1.1 mg/dL High 0.3-1.0 [facility] Comment on above: Performed By: #### 9 9908, 57248 #### [facility] [address] [place] [address], [place] Bilirubin.direct [Mass/Vol] 0.2 mg/dL Normal 0.0-0.2 [facility] Comment on above: Performed By: #### 9 9908, 50858 #### [facility] [address] [place] [address], [place] Protein [Mass/Vol] 7.5 g/dL Normal 6.0-8.3 [facility] Comment on above: Performed By: #### 9 9909, 41390 #### [facility] [address] LIVER FIBROSIS CHRONIC VIRAL [id number] 08-08-2020 [id number] IN,FIBROMETER 259 mg/dL Normal 131-293 [facility] ALT [Catalytic activity/Vol] 69 U/L High 5-40 [facility] Amylase [Catalytic activity/Vol] 131 U/L High 7-33 [facility] AST [Catalytic activity/Vol] 54 U/L High 9-40 [facility] Comment on above: Result Comment: This specimen is Hemolyzed. This may cause the results to be falsely increased. CIRRHOMETER PATIENT SCORE 0.12 Normal [facility] EER FIBROMETER REPORT See Note Normal [facility] Comment on above: Result Comment: Acce johnnie [facility] Enhanced Report using the link below: -Direct access: [email or web address] FIBROMETER INTERPRETATION See Report Normal [facility] Comment on above: Result Comment: INTE RPRETIVE INFORMATION: Fibrometer Interpretation Calculations for the final report are based on accurate data for age, gender, and platelet count. If any of this information needs to be corrected, please contact [facility] Client Services to request a recalculation. Client Services may be contacted at . The [employer] FibroMeter profile serves as a surrogate marker [...] developed and its performance characteristics determined by [facility]. It has not been cleared or approved by the [place] Food and Drug Administration. This test was performed in a CLIA certified laboratory and is intended for clinical purposes. [13] [17] Performed By: [facility] [address] [place] [id number] Worm Packer: Radha Horton MD FIBROMETER PLATELET CT 163 k/uL Normal [facility] FIBROMETER PLATELET IND 81 % Low 90-120 [facility] FIBROMETER PLATELET SCORE 0.62 Normal [facility] FIBROSIS METAVIR CLASSIFICATION F2[F1-F3] Normal [facility] Comment on above: Result Comment: INTE RPRETIVE [...] possible INFLAMETER METAVIR CLASSIFICATION A1/A2 Normal [facility] Comment on above: Result Comment: INTE RPRETIVE INFORMATION: InflaMeter Metavir Classification [employer]aMeter (activity score) comments A0/A1 Equal probability between A0 and A1 A1/A2 Equal probability between A1 and A2 A2/A3 Equal probability between A2 and A3 INFLAMETER PATIENT SCORE 0.61 Normal [facility] Urea nitrogen [Mass/Vol] 14 mg/dL Normal 7-20 [facility] MITOCHONDRIAL ABon 1 MITOCHONDRIAL AB SEE [facility] RESULT Abnormal NONE DETECTED [facility] Comment on above: Result Comment: NONE DETECTED LESS THAN 1:20 INTERMEDIATE LEVEL 1:20 - 1:80 (MAY BE PRESENT IN AUTOALLERGIC LIVER DISEASE) ELEVATED LEVEL GREATER THAN OR EQUAL TO 1:160 (STRONGLY SUGGESTIVE OF PRIMARY BILIARY CIRRHOSIS) Performed By: #### 1 0196, 79988 #### [facility] [address] MITOCHONDRIAL M2 ANTIBODY, [place] [id number] 08-08-2020 MITOCHONDRIAL M2 ANTIBODY IGG 2.1 Units Normal 0.0-24.9 [facility] Comment on above: Result [...] does not rule out PBC. Performed By: [facility] [address] [place] [address] Worm Packer: Radha Horton MD PROTHROMBIN TIMEon 1 INR Coag (PPP) [Relative time] 1.05 {INR} Normal 0.91-1.16 [facility] Comment on above: Result [...] CHEST 1995;108:[id number]-[id number]. Performed By: #### 1 0196, 01922 #### [facility] [address] PT Coag (PPP) [Time] 13.7 s Normal 12.3-14.8 [facility] Comment on above: Result Comment: ALL RESULTS MUST BE INTERPRETED WITH RESPECT TO BLOOD DRAWING ARTIFACT OR DILUTION ERROR OF ANTICOAGULANT AT THE TIME OF SAMPLING. Performed By: #### 1 0196, 62929 #### [facility] [address] XR FOOT LEFT (MIN 3 VIEWS)on 04-24-2019 No acute osseous abnormality in the left foot. [place] [facility] [employer] EXAMINATION: THREE XRAY VIEWS OF THE LEFT [...] Joint spaces are preserved. No bony erosion. Total [place] [employer] Rashid, Mhpn Incoming Radiant Results From [employer] - 04/24/2019 5:49 PM EDT EXAMINATION: THREE [...] abnormality in the left foot. [facility] [place], [place] Large Joint Arthro/Inj: bila teral greater trochanteric bursa injection [facility] Vital Signs Date Time Vital Sign Value Performing Clinician Faci lity 09-02-2023 11:36-0500 Body height 172.1 cm Michael Perkins MD Work Phone: [facility] 09-02-2023 11:36-0500 Body mass index (BMI) [Ratio] 38.6 kg/m2 Michael Perkins MD Work Phone: [facility] 09-02-2023 11:36-0500 Body weight 114.31 kg Michael Perkins MD Work Phone: [facility] 09-02-2023 11:36-0500 Diastolic blood pressure 90 mm[Hg] Michael Perkins MD Work Phone: [facility] 09-02-2023 11:36-0500 Heart rate 107 /min Michael Perkins MD Work Phone: [facility] 09-02-2023 11:36-0500 SaO2% (BldA) [Mass fraction] 94 % Michael Perkins MD Work Phone: [facility] 09-02-2023 11:36-0500 Systolic blood pressure 128 mm[Hg] Michael Perkins MD Work Phone: [facility] 08-05-2023 11:00-0500 Body height 167 cm Cody HURLEY Work Phone: [facility] 08-05-2023 11:00-0500 Body mass index (BMI) [Ratio] 39.39 kg/m2 Cody HENDRICKSONBLISS PRESS OPERATOR Work Phone: [facility] 08-05-2023 11:00-0500 Body weight 109.86 kg Cody HURLEY Work Phone: [facility] 08-05-2023 11:00-0500 Diastolic blood pressure 88 mm[Hg] Cody Hutchins APRNBijalBLISS PRESS OPERATOR Work Phone: [facility] 08-05-2023 11:00-0500 Heart rate 88 /min Cody Hutchins APRN-BLISS PRESS OPERATOR Work Phone: [facility] 08-05-2023 11:00-0500 Systolic blood pressure 130 mm[Hg] Cody Hutchins APRN-BLISS PRESS OPERATOR Work Phone: [facility] [employer] 07-13-2023 16:15-0500 Body height 167.64 cm Beba Farahmond Other [facility] Other 07-13-2023 16:15-0500 Body mass index (BMI) [Ratio] 39.06 kg/m2 Beba Farahmond Other [facility] Other 07-13-2023 16:15-0500 Body temperature 97.3 [degF] Beba Farahmond Other [facility] Other 07-13-2023 16:15-0500 Body weight 109.77 kg Beba Farahmond Other [facility] Other 07-13-2023 16:15-0500 Diastolic blood pressure 80 mm[Hg] Beba Rossi Other [facility] Other 07-13-2023 16:15-0500 Respiratory rate 18 /min Beba Rossi Other [facility] Other 07-13-2023 16:15-0500 SaO2% (BldA) [Mass fraction] 98 % Beba Rossi Other [facility] Other 07-13-2023 16:15-0500 Systolic blood pressure 120 mm[Hg] Beba Farahmond Other [facility] [employer] Other 06-24-2023 11:38-0500 Body height 167.6 cm Noemi Pham MD Work Phone: [facility] 06-24-2023 11:38-0500 Body weight 108.86 kg Noemi Pham MD Work Phone: [facility] 06-24-2023 11:38-0500 Diastolic blood pressure 77 mm[Hg] Noemi Pham MD Work Phone: [facility] 06-24-2023 11:38-0500 Heart rate 104 /min Noemi Pham MD Work Phone: [facility] 06-24-2023 11:38-0500 Respiratory rate 20 /min Noemi Pham MD Work Phone: [facility] 06-24-2023 11:38-0500 Systolic blood pressure 114 mm[Hg] Noemi Pham MD Work Phone: [facility] 08-11-2022 09:48-0500 Body weight 102.51 kg Noemi Pham MD Work Phone: [facility] 08-11-2022 09:48-0500 Diastolic blood pressure 73 mm[Hg] Noemi Pham MD Work Phone: [facility] 08-11-2022 09:48-0500 Heart rate 94 /min Noemi Pham MD Work Phone: [facility] 08-11-2022 09:48-0500 Systolic blood pressure 118 mm[Hg] Noemi Pham MD Work Phone: [facility] 02-07-2021 11:53-0400 Body mass index (BMI) [Ratio] 37.12 kg/m2 Garfield Restrepo MD [facility] Work Phone: 02-07-2021 11:53-0400 Body temperature 98.4 [degF] Garfield Restrepo MD [facility] Work Phone: 02-07-2021 11:53-0400 Body weight 104.33 kg Garfield Restrepo MD [employer] Phone: 02-07-2021 11:53-0400 Diastolic blood pressure 92 mm[Hg] Garfield Restrepo MD [employer] Phone: 02-07-2021 11:53-0400 Heart rate 108 /min Garfield Restrepo MD [employer] Phone: 02-07-2021 11:53-0400 Respiratory rate 16 /min Garfield Restrepo MD [employer] Phone: 02-07-2021 11:53-0400 SaO2% (BldA) [Mass fraction] 96 % Garfield Restrepo MD [employer] Phone: 02-07-2021 11:53-0400 Systolic blood pressure 122 mm[Hg] Garfield Restrepo MD [employer] Phone: 04-24-2019 15:30-0400 Pulse (Heart Rate) 104 /min [place], [place] 04-24-2019 15:28-0400 BMI (Body Mass Index) 35.51 kg/m2 [place] 04-24-2019 15:28-0400 Body Temperature 98.4 [degF] [place], [place] 04-24-2019 15:28-0400 Body weight 99.79 kg [place], [place] 04-24-2019 15:28-0400 BP Diastolic 81 mm[Hg] [place] 04-24-2019 15:28-0400 BP Systolic 116 mm[Hg] [place] 04-24-2019 15:28-0400 Height 167.6 cm [place] 04-24-2019 15:28-0400 Pulse Oximetry 95 % [place] 04-24-2019 15:28-0400 Respiratory Rate 15 /min [facility] [place] Encounters Encounter Date Encounter Type Care Provider Facility Start: 10-14-2023 End: 10-14-2023 ambulatory DALLAS MEREDITH [facility] Start: 10-14-2023 End: 10-14-2023 ambulatory [...] Emergency department patient visit NASEEM Alvarado [facility] Start: 09-27-2023 End: 09-27-2023 Emergency department patient visit TOY Gimenez [facility] Start: 09-26-2023 ambulatory Noemi Pham MD [...] above: Pain Start: 09-02-2023 End: 09-02-2023 ambulatory [facility] Start: 09-02-2023 End: 09-02-2023 Office outpatient visit 25 minutes Michael Perkins MD Work Phone: [facility] Comment on above: Primary hypertension (Primary Dx); Coronary artery vasospasm (CMS-HCC); Intermittent palpitations; Obstructive sleep apnea Start: 09-01-2023 Telephone encounter Mei Garcia CMA [facility] Comment on above: Appointment Start: 08-05-2023 End: 08-05-2023 ambulatory [facility] Start: 08-05-2023 End: 08-05-2023 Office outpatient visit 25 minutes [facility] SENIOR INTERACTION DESIGNER-BLISS PRESS OPERATOR Work Phone: [facility] Comment on above: Status migrainosus ( Primary Dx); Migraine without aura and without status migrainosus, not intractable; Cervicalgia; Fibromyalgia; Paresthesias; Trapezius muscle spasm; Vertigo Start: 08-03-2023 Telephone encounter Gloria [facility] Start: 07-21-2023 End: 07-21-2023 ambulatory Betty Moreau Other [facility] Other Start: 07-21-2023 Telephone encounter Naz Vasques [facility] Comment on above: Headache Start: 07-13-2023 End: 07-13-2023 ambulatory Beba Richey Other [facility] Other Start: 07-13-2023 Office outpatient vi sit 15 minutes Beba Richey [facility] Start: 06-24-2023 End: 06-25-2023 ambulatory TOY OBRIEN Facility:[facility] Start: 06-24-2023 End: 06-24-2023 ambulatory TOY OBRIEN Facility:[facility] Start: 06-24-2023 End: 06-24-2023 Subsequent hospital visit by physician X[facility] Work Phone: [facility] General Comment on above: Pain in joint, multi ple sites [M25.50] Start: 06-24-2023 End: 06-24-2023 Patient encounter procedure Noemi Pham MD Work Phone: Rheumatology Comment on above: Pain in joint, multi ple sites (Primary Dx); Trochanteric bursitis of both hips Start: 05-27-2023 End: 05-27-2023 ambulatory Jud Monson Other [facility] Other Start: 05-27-2023 Office outpatient vi sit 25 minutes Jud Monson [facility] Start: 05-12-2023 Telephone encounter Noemi perez MD Work Phone: Rheumatology Comment on above: Medication Problem Start: 03-21-2023 End: 03-22-2023 ambulatory [facility] Start: 03-09-2023 Telephone encounter Noemi perez MD Work Phone: Rheumatology Start: 01-28-2023 Telephone encounter Noemi perez MD Work Phone: Rheumatology Comment on above: Orders Start: 01-26-2023 ambulatory Noemi Pham MD Work Phone: Rheumatology Comment on above: results of blood wor k Start: 01-26-2023 E-mail encounter fro m caregiver Noemi Pham MD Work Phone: [facility] Start: 01-14-2023 End: 01-15-2023 ambulatory TOY OBRIEN Facility:[facility] Start: 01-11-2023 Refill Noemi Pham MD Work Phone: Rheumatology Comment on above: Refill Request Start: 12-24-2022 End: 12-24-2022 ambulatory TOY OBRIEN [facility] Start: 12-24-2022 End: 12-24-2022 Patient encounter procedure Emg 3 Neur Main (Max Weight: 1000) Work Phone: [facility] Start: 12-17-2022 End: 12-17-2022 ambulatory LACHELLE ALONZO [facility] Start: 12-13-2022 End: 12-18-2022 ambulatory TOY OBRIEN [facility] Start: 12-01-2022 [...] Refill Request Start: 09-08-2022 End: 09-08-2022 ambulatory [facility] Start: 09-08-2022 End: 09-08-2022 ambulatory [facility] Start: 08-11-2022 End: 08-12-2022 ambulatory [facility] Start: 08-11-2022 End: 08-11-2022 Patient encounter procedure Noemi Pham MD Work Phone: Rheumatology Comment on above: Rheumatoid arthritis involving multiple sites, unspecified whether rheumatoid factor present (HCC) (Primary Dx) Start: 07-30-2022 End: 07-30-2022 ambulatory Jud Monson Facility:[facility] Start: 07-30-2022 End: 07-30-2022 ambulatory INSULATION SPRAYER-C Jud Monson Work Phone: [facility] Work Phone: Start: 07-30-2022 End: 07-30-2022 Patient encounter procedure INSULATION SPRAYER-C Jud De Los Santosney Work Phone: [facility] Start: 06-04-2022 Telephone encounter Noemi perez MD Work Phone: Rheumatology Comment on above: Insurance Authorizat ion Start: 06-02-2022 ambulatory Noemi Pham MD Work Phone: Rheumatology Comment on above: Ankle pain Start: 05-29-2022 Refill Noemi Pham MD Work Phone: Rheumatology Comment on above: Refill Request Start: 05-26-2022 End: 05-26-2022 ambulatory [facility] Start: 05-17-2022 Telephone encounter Noemi perez MD Work Phone: [address] [place] [address] Comment on above: Patient Question Start: 12-29-2021 Telephone encounter Noemi perez MD Work Phone: Rheumatology Comment on above: Patient Request Start: 10-27-2021 ambulatory Noemi Pham MD Work Phone: Rheumatology Comment on above: Handicap plaquered Start: 07-22-2021 End: 07-25-2021 ambulatory BLANCA [facility] Start: 07-03-2021 End: 07-06-2021 ambulatory BLANCA Rajiv [facility] Start: 02-07-2021 End: 02-07-2021 Emergency department patient visit [place] Ammy [facility] Start: 02-07-2021 End: 02-07-2021 Emergency department patient visit Garfield Restrepo MD [facility] ED Comment on above: Neuropathic pain (Pr imary Dx) Start: 01-19-2021 End: 01-19-2021 Emergency department patient visit TOY OBRIEN [facility] Start: 05-20-2020 End: 05-20-2020 Subsequent hospital visit by physician Zackary Garcia STCheri [facility] Comment on above: Canceled (Patient no show) Start: 05-16-2020 End: 05-16-2020 Subsequent hospital visit by physician Glory CAMARGO [facility] Comment on above: Canceled (Patient) Start: 05-14-2020 End: 05-14-2020 Subsequent hospital visit by physician Sander AREVALO [facility] Start: 04-24-2019 End: 04-24-2019 Emergency department patient visit Gold Graevs Work Phone: [facility] ED Comment on above: [...] Start: 07-30-2022 Plain X-ray of right elbow INSULATION SPRAYER-C Jud Monson Work Phone: Start: 07-24-2021 Lipid [...] - S blanca or Plasma Lipid Screening [facility] Start: 07-24-2026 Lipid panel Lipid Screening [facility] Start: 07-24-2026 LIPID SCREEN LIPID SCREEN [facility] Start: 06-24-2026 Diabetes Screening Diabetes Screenin [facility] Start: 11-08-2025 DIABETES SCREEN DIABETES SCREEN [facility] Start: 11-08-2025 Diabetes Screening Diabetes Screenin [facility] Start: 08-11-2025 DIABETES SCREEN DIABETES SCREEN [facility] Start: 10-13-2024 Tobacco Screening Tobacco Screening [facility] Start: 09-02-2024 Adult BMI Screening Adult BMI Screen ing [facility] Start: 09-02-2024 Tobacco Screening Tobacco Screening [facility] Start: 08-05-2024 Adult BMI Screening Adult BMI Screen ing [facility] Start: 08-05-2024 Tobacco Screening Tobacco Screening [facility] Start: 05-13-2024 Glaucoma screening Diabetic Op hthalmology Exam [facility] Start: 05-13-2024 Tobacco Screening Tobacco Screening [facility] Start: 05-12-2024 Adult BMI Screening Adult BMI Screen ing [facility] Start: 04-20-2024 End: 04-20-2024 Patient encounter procedure 04/20/2024 9:30 AM EDT Office Visit [facility] [address] [place] [address] Dallas Meredith MD [address] [place] [address] [facility] Start: 12-18-2023 Colonoscopy COLONOSCOPY [facility] Start: 12-18-2023 COLORECTAL CANCER SCREENING COLORECTAL CANCER SCREENING [facility] Start: 12-18-2023 Screening for malign ant neoplasm of colon [facility] Start: 11-11-2023 End: 11-11-2023 Patient encounter procedure 11/11/2023 11:00 AM EDT Office Visit [facility] [address] [place] [address] Cody Hutchins APRNBLISS PRESS OPERATOR [address] [place] [address] [facility] Start: 10-28-2023 End: 10-28-2023 Patient encounter procedure 10/28/2023 9:00 AM EDT Office Visit [facility] [address] [place] [address] Cody Hutchins APRNBLISS PRESS OPERATOR [address] [place] [address] [facility] Start: 10-14-2023 End: 10-14-2023 Patient encounter procedure 10/14/2023 1:10 PM EDT Office Visit [facility] [address] [place] [address] Dallas Meredith MD [address] [place] [address] [facility] Start: 09-30-2023 End: 09-30-2023 Patient encounter procedure [facility] Start: 09-30-2023 End: 09-30-2023 ambulatory 09/30/2023 9:30 AM EST Ophthalmology Imaging [facility] [address] [place] [address] [facility] Start: 09-16-2023 End: 09-16-2023 Patient encounter procedure 09/16/2023 10:30 AM EST Office Visit [facility] [address] [place] [address] Dallas Meredith MD [address] [place] [address] [facility] Start: 09-06-[address] [facility] Start: 09-02-2023 End: 09-02-2023 Patient encounter procedure [facility] Start: 08-05-2023 End: 08-05-2023 Patient encounter procedure 08/05/2023 11:30 AM EST Office Visit [facility] [address] [place] [address] Cody Hutchins APRN-BLISS PRESS OPERATOR [address] [place] [address] [facility] Start: 07-25-2023 Depression Assessment Depression Ass essment [facility] Start: 05-16-2023 DIABETES SCREEN DIABETES SCREEN [facility] Start: 03-25-2023 Covid-19 Vaccine ( season) Covid-19 Vaccine ( season) [facility] Start: 03-25-2023 Influenza vaccination C [facility] Start: 01-26-2023 End: 03-28-2023 Extractable nuclear Ab panel - Serum ANTI LEVY ID Lab Routine Rheumatoid arthritis involving multiple sites, unspecified whether rheumatoid factor present (HCC) Expected: 01/26/2023, Expires: 03/28/2023 [facility] Work Phone: Comment on above: Expected: 01/26/2023 , Expires: 03/28/2023 Start: 10-27-2022 End: 12-27-2022 Aldolase [Enzymatic activity/volume] in Serum or Plasma ALDOLASE BLD Lab Routine Myalgia Expected: 10/27/2022, Expires: 12/27/2022 [facility] Work Phone: Comment on above: Expected: 10/27/2022 , Expires: 12/27/2022 Start: 10-27-2022 End: 12-27-2022 Creatine kinase [Enzymatic activity/volume] in Serum or Plasma CK CREATINE KINASE Lab Routine Myalgia Expected: 10/27/2022, Expires: 12/27/2022 [facility] Work Phone: Comment on above: Expected: 10/27/2022 , Expires: 12/27/2022 Start: 08-11-2022 End: 10-11-2022 Aldolase [Enzymatic activity/volume] in Serum or Plasma [facility] Work Phone: Comment on above: Expected: 08/11/2022 , Expires: 10/11/2022 Start: 07-25-2022 DEPRESSION ASSESSMENT DEPRESSION ASS ESSMENT [facility] Start: 03-25-2022 Influenza vaccination INFLUENZA (#1) [facility] Start: 03-19-2022 Adult depression screening assessment DEPRESSION SCREENING [facility] Start: 01-27-2022 DTaP,Tdap and Td Vaccines (2 - Td or Tdap) DTaP,Tdap and Td Vaccines (2 - Td or Tdap) [facility] Start: 01-27-2022 DTaP/Tdap/Td vaccine (2 - Td or Tdap) DTaP/Tdap/Td vaccine (2 - Td or Tdap) [facility] Work Phone: Start: 01-27-2022 DTaP/Tdap/Td vaccine (2 - Td) DTaP/Tdap/Td vaccine (2 - Td) [facility] [place] Start: 01-27-2022 Urine microalbumin profile DTaP,Tdap,Td Vaccine (2 - Td or Tdap) [facility] Start: 07-25-2021 DEPRESSION ASSESSMENT DEPRESSION ASS ESSMENT [facility] Start: 03-25-2021 Influenza vaccination Flu vaccine (# 1) [facility] Work Phone: Start: 01-12-2021 COVID-19 VACCINE (3 - Booster for Pfizer series) COVID-19 VACCINE (3 - Booster for Pfizer series) [facility] Start: 01-12-2021 COVID-19 VACCINE (3 - Pfizer series) COVID-19 VACCINE (3 - Pfizer series) [facility] Start: 12-15-2020 COVID-19 VACCINE (3 - Pfizer risk 4-dose series) COVID-19 VACCINE (3 - Pfizer risk 4-dose series) [facility] Start: 12-15-2020 COVID-19 VACCINE (3 - Pfizer risk series) COVID-19 VACCINE (3 - Pfizer risk series) [facility] Start: 2020 COLOGUARD (FIT-DNA) COLOGUARD (FIT-D NA) [facility] Start: 2020 Colonoscopy COLONOSCOPY [facility] Start: 2020 COLORECTAL CANCER SCREENING COLORECTAL CANCER SCREENING [facility] Start: [address] COLONOGRAPHY [facility] Start: 2020 FECAL OCCULT BLOOD FECAL OCCULT BLOO D [facility] Start: 2020 Screening for malign ant neoplasm of colon [facility] Start: 2020 SIGMOIDOSCOPY SIGMOIDOSCOPY [facility] Start: 05-29-2020 End: 05-29-2020 Appointment 05/29/2020 Appointment Physical Therapy Jeremie Barnett PTA [facility] Start: 05-28-2020 End: 05-28-2020 Appointment 05/28/2020 Appointment Physical Therapy Jeremie Barnett PTA [facility] Start: 05-23-2020 End: 05-23-2020 Appointment 05/23/2020 Appointment Physical Therapy Glory Ortiz GROCERY CHECKER [facility] Start: 05-20-2020 End: 05-20-2020 Appointment [facility] Start: 05-16-2020 End: 05-16-2020 Appointment 05/16/2020 Appointment Physical Therapy Glory Ortiz GROCERY CHECKER [facility] Start: 03-25-2020 Influenza vaccination Flu vaccine (# 1) [employer] [facility] [place] Start: 03-25-2019 Influenza vaccination Flu vaccine (# 1) [place], [place] Start: 2015 Diabetes screen Diabetes screen [facility] [employer] Phone: Start: 2015 Lipid panel Lipid screen [place], [place] Start: 2015 Lipid screen Lipid screen [place], [place] Start: 2015 Mammography [facility] Start: 2015 Screening for malign ant neoplasm of breast Mammogram Screening [facility] Start: 2005 HPV TESTING HPV TESTING [facility] Start: 2005 Screening for malign ant neoplasm of cervix HPV Testing [facility] Start: 1996 Cervical cancer screen Cervical canc er screen [place], [place] Start: 1996 PAP TESTING PAP TESTING [facility] Start: 1996 Screening for malign ant neoplasm of cervix [facility] Start: 1994 SHINGRIX VACCINE (1 of 2) SHINGRIX VACCINE (1 of 2) [facility] Start: 1994 Urine microalbumin profile [facility] Start: 1993 Adult BMI Follow Up Plan Adult BMI Follow Up Plan [facility] Start: 1993 Diabetic foot examination Diabetic Foot Exam [facility] Start: 1993 HIV SCREENING HIV SCREENING [facility] Start: 1993 HIV screening HIV Screening [facility] Start: 1990 [facility] [place] [place] Start: 1990 HIV screening HIV screen [place], [place] Start: 1981 PNEUMOCOCCAL (1 - PCV) PNEUMOCOCCAL (1 - PCV) [facility] Start: 1981 Pneumococcal vaccination [facility] Start: 1975 Hepatitis C screening Hepatitis C sc rita [facility] [employer] Phone: End: 11-24-2023 EMG(NEURO/NI) EMG(NEURO/NI) EMG Routine Fatigue, unspecified type Elevated aldolase level Generalized weakness 1 Occurrences starting 11/23/2022 until 11/24/2023 [facility] Work Phone: Comment on above: 1 Occurrences starti ng 11/23/2022 until 11/24/2023 End: 10-12-2024 [facility] - OU - Both Eyes [facility] - OU - Both Eyes Ophthalmology Routine High risk medication use 1 Occurrences starting 10/13/2023 until 10/12/2024 [facility]: Comment on above: 1 Occurrences starti ng 10/13/2023 until 10/12/2024 [facility] Visual Fiel d - OU - Both Eyes [facility] - OU - Both Eyes Ophthalmology Routine High risk medication use 10/13/2023 1:11 PM EDT [facility] [employer] [facility] End: 10-20-2024 MR Lumbar spine WO contrast MRI LUMBAR SPINE WO IVCON Radiology Routine Spinal stenosis of lumbar region with neurogenic claudication 1 Occurrences starting 09/21/2023 until 10/20/2024 [facility] Work Phone: Comment on above: 1 Occurrences starti ng 09/21/2023 until 10/20/2024 End: 10-18-2024 XR Lumbar spine 3 Views XR LUMBAR GENERAL 3V AP/LAT/L5-S1 Radiology Routine Chronic bilateral low back pain without sciatica 1 Occurrences starting 09/19/2023 until 10/18/2024 [facility] Work Phone: Comment on above: 1 Occurrences starti ng 09/19/2023 until 10/18/2024 [facility] Immunizations Immunization Date Immunization Notes Care Provider Fa cili 04-23-2021 influenza virus vacc ine, unspecified formulation Noemi Pham MD Work Phone: [facility] Payers Date Payer Category Payer Self-pay 2021 Unknown MMO MMO [employer] [id number] 2021-Present [phone] [address] [place] [address] PPO [id number] 2021 Unknown [id number] 2021 Medicare [id number] 2021 Unknown [id number] .[id number] 2020 Unknown [id number] .[id number] 2015 Unknown [facility] xxxxxxxxxxxx 2015-Present [phone] [address] [place] [address] xxxxxxxxxxxx [id number] 2003 Medicaid [place] [employer] [place] [id number] 2003-Present [phone] [address] [facility] [place] [address] Medicaid [id number] .[id number] 2003 Medicaid [id number] [id number] .[id number] 2003 Unknown [id number] .[id number] 1975 Unknown [id number] 2.16.840.1.595561.3.579.2.175 1975 Unknown [id number] 2.16.840.1.921738.3.579.2.175 1975 Unknown [id number] 2.16.840.1.772247.3.579.2.175 1975 Unknown [id number] 2.16.840.1.713804.3.579.2.175 1975 Unknown [id number] 2.16.840.1.376842.3.579.2.176 1975 Unknown [id number] 2.16.840.1.593654.3.579.2.176 1975 Unknown [id number] 2.16.840.1.324602.3.579.2.176 1975 Unknown [id number] 2.16.840.1.670394.3.579.2.128 6 1975 Unknown [id number] 2.16.840.1.818327.3.579.2.128 6 1975 Unknown [id number] 2.16.840.1.015657.3.579.2.128 6 1975 Unknown [id number] 2.16.840.1.826870.3.579.2.128 6 1975 Unknown [id number] 2.16.840.1.729320.3.579.2.128 6 1975 Unknown [id number] 2.16.840.1.654904.3.579.2.128 6 1975 Unknown [id number] 2.16.840.1.661698.3.579.2.128 6 1975 Unknown [id number] 2.16.840.1.475645.3.579.2.128 6 1975 Unknown [id number] 2.16.840.1.942953.3.579.2.128 6 Unknown [id number]1 Social History Date Type Detail Facility Start: 06-18-2018 End: 10-14-2021 Tobacco smoking status OHIS Never smoker [facility] Start: 06-18-2018 End: 10-14-2021 Tobacco use and exposure Never used [place] Start: 06-18-2018 End: 10-14-2023 Alcohol intake Current drinker of alcohol (finding) [place] Start: 08-28-2017 Alcohol Comment social [place], [place] Start: 1975 Sex Assigned At Not on file M [facility], CIPRIANO Start: 06-18-2018 End: 08-05-2020 Alcohol intake Yes [facility] Start: 12-14-2022 End: 12-24-2022 Exposure to SARS-CoV-2 (event) Not sure [facility] Start: 10-26-2018 History SDOH Alcohol Comment Occasional [facility] Start: 1975 Sex Assigned At Female F [facility] Start: 08-05-2020 End: 01-14-2023 History of Social function [facility] National Score (1-10 0), lower number is lower risk 76 [facility] Start: 08-14-2019 Alcohol Comment occasional [facility] Start: 09-06-2022 Gender identity Identifies as female gender (finding) [facility] Start: 09-06-2022 Sexual orientation Heterosexual (fin ding) [facility] Clinical Notes 10-28-2021 to 10-14-2023 Dallas Meredith [...] Gabriela Jane 10/14/23 documented in this encounter [facility] 09-29-2023 Miscellaneous Notes Denial paperwork received. Placed on Dr. Pham's desk for review. documented in this encounter [facility] 09-26-2023 Miscellaneous Notes Office notes faxed to [facility] per patient request. documented in this encounter [facility] 09-23-2023 Miscellaneous Notes MRI faxed via [employer]. documented in this encounter [facility] 09-22-2023 Miscellaneous Notes Received back with signature from Dr. Pham and faxed to [phone] per Patients request. Printed and placed on Dr. Pham's desk for signature. Patient is calling today to request her MRI of the Lumbar spine be printed and signed and faxed over to [facility] at: [phone]. Please call and advise when this is done so she can get this scheduled. Patient has been identified by name and birthdate. Duration of symptoms: N/A Person calling: self Call patient at: at home [phone] (home) [phone] (cell) Was an appointment scheduled: No Closing statement: Results or non-symptom based questions: Thank you for calling [facility], your call will be returned within the next business day. Abby Nassar documented in this encounter [facility] 09-21-2023 Miscellaneous Notes Order for MRI of lumbar spine placed, please call patient to schedule. Noemi Pham MD documented in this encounter [facility] 09-21-2023 Miscellaneous Notes Received fax from [facility]. X-ray results XR lumbar spine. One copy given to Dr. Pham and one copy sent to scanning documented in this encounter [facility] 09-20-2023 Miscellaneous Notes Faxed x-ray orders to both fax numbers as requested by patient. Faxed via [employer]. Patient called to check on status regarding fax. Also requested the order to be faxed to [phone]. Please call patient once order is faxed. Called and spoke with pt. She states it is the R-Hip. She needs us to fax orders to [facility] [phone]. Yes I can order xray of hip [...] for any orders to be faxed to [facility] documented in this encounter [facility] 09-02-2023 History of Present illness [...] of stress. 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 Past Medical History: Diagnosis Date Anxiety [...] Cardiac catheterization - CORS + LV GRAM/PRESS (22716) Left 10/08/2021 Performed by Ana María Plasencia MD at [facility] CARDIAC CATH LABS CHOLECYSTECTOMY ENDOMETRIAL BIOPSY [...] - POCT EKG 2. Coronary artery vasospasm ([facility]) 3. Intermittent palpitations Assessment: Coronary vasospasm; [facility] 09/2021: Minimal CAD, spasm in [...] OBRIEN MD Referring Physician: Toy Obrien MD [facility] [place] [address] Referral and perts faxed to Pulmonology . documented in this encounter [facility] 09-01-2023 Miscellaneous Notes Left message for patient to remind them to bring their most current medication list with them to their appointment. documented in this encounter [facility] 09-01-2023 Telephone encounter Note Left message for patient to remind them to bring their most current medication list with them to their appointment. [facility] 08-05-2023 History of Present illness Narrative Subjective: [...] Norflex does not help. She sees a sales representative jewelry for rheumatoid arthritis (Plaquenil) and fibromyalgia. Sleep/Social [...] muscles. She sees Conrad Garcia DC in [place] for her career placement services counselor. She would like to start a preventative [...] Cardiac catheterization - CORS + LV GRAM/PRESS (34491) Left 10/08/2021 Performed by Ana María Plasencia MD at [facility] CARDIAC CATH LABS CHOLECYSTECTOMY ENDOMETRIAL BIOPSY [...] muscles. She sees Conrad Garcia DC in [place] for her career placement services counselor. She would like to start a preventative [...] procedures Referring and communicating with other health housekeeper caregiver (not separately reported) Documenting clinical information in the electronic or other health record Care coordination (not separately reported) - Cody Hutchins DNP, EMMY-BLISS PRESS OPERATOR 08/05/23 12:01 PM MEI [facility] 08/05/23 1202 documented in this encounter [facility] 08-05-2023 Instructions MEI [place] - 08/05/2023 11:30 [...] --exercise bicycle pedals documented in this encounter [facility] 08-03-2023 Miscellaneous Notes Patient contacted our office requesting a sooner appt. Patient just started a new job and is off every other Tuesday and she is off this Tuesday. Tight Rope Walker looked and there are no appts available [...] can add 100 mg in the morning. Tight Rope Walker called pt. And left a message for her to call the office back to discuss her medication dosage question. Received call today 08/04/23 9:22 from patient who is requesting a call back in regard to previous message. Please call back and advise, callback#: [phone]. Tight Rope Walker spoke with pt. Tight Rope Walker told pt about the med dosage per Cody Hutchins and pt stated she understood. Pt also stated she is in so much pain asking for a migraine cocktail so she was added to schedule tomorrow 08/05/23. documented in this encounter [facility] 08-03-2023 Telephone encounter Note Patient contacted our office requesting a sooner appt. Patient just started a new job and is off every other Tuesday and she is off this Tuesday. Tight Rope Walker looked and there are no appts available [...] get her a sooner appt. Please advise. [facility] 08-03-2023 Telephone encounter Note Meron: when you are doing reminder calls for 08/05/2023, if anyone wants to cancel, please contact Lynette and put her on the schedule Clinical: If she is taking 100 mg of zonisamide each evening, she can increase her dose to 200 mg (two of the 100 mg capsules) each evening. [facility] 08-03-2023 Telephone encounter Note Patient is already taking 200 mg of the Zonisamide nightly. Please advise. [email or web address] 08-03-2023 Telephone encounter Note She can add 100 mg in the morning. [email or web address] 08-03-2023 Telephone encounter Note Tight Rope Walker called pt. And left a message for her to call the office back to discuss her medication dosage question. [email or web address] 08-03-2023 Telephone encounter Note Received call today 08/04/23 9:22 from patient who is requesting a call back in regard to previous message. Please call back and advise, callback#: [phone]. [email or web address] 08-03-2023 Telephone encounter Note Tight Rope Walker spoke with pt. Tight Rope Walker told pt about the med dosage per Cody Hutchins and pt stated she understood. Pt also stated she is in so much pain asking for a migraine cocktail so she was added to schedule tomorrow 08/05/23. [facility] [employer] [facility] 07-21-2023 Miscellaneous Notes 1) When [...] requesting a call back to further discuss [phone]. Thank you so much She can increase the zonisamide to 200 mg (2 of the 100 mg capsules) each evening. Patient returned phone call. Tight Rope Walker informed her of Cody Hutchins's message below. She voiced understanding. documented in this encounter [facility] [employer] 07-21-2023 Telephone encounter Note 1) When did [...] requesting a call back to further discuss [phone]. Thank you so much [facility] [employer] [facility] 07-21-2023 Telephone encounter Note She can increase the zonisamide to 200 mg (2 of the 100 mg capsules) each evening. [facility] [employer] [facility] 07-21-2023 Telephone encounter Note Patient returned phone call. Tight Rope Walker informed her of Cody Hutchins's message below. She voiced understanding. [facility] [employer] [facility] 07-13-2023 Evaluation note Encounter Date [...] unspecified otitis media type (ICD-10 - H66.91) [facility] [facility] Other 12-01-2023 NoteHNO ID: [id number] Author: Chato Chacko RT(R) Service: Radiology Author [...] Chato Chacko, RT(R) June 24, 2023 12:47 [id number] NoteHNO ID: [id number] Author: Noemi Pham MD Service: ? Author [...] bursa injection Informed Consent Consent Obtained: Verbal [place] Protocol A moment to CARE was completed. [...] F/U: 6m Check following: -none Noemi Pham, [facility]12-01-2023 History of Present illness Narrative* Chato Chacko, [...] 24, 2023 12:47 PM documented in this encounterLicking [facility] Hospital12-01-2023 History of Present illness Narrative* [...] bursa injection Informed Consent Consent Obtained: Verbal [place] Protocol A moment to CARE was completed. [...] -none Noemi Pham MD documented in this encounterLicking Memorial Hospital11-03-2023 Evaluation note* Encounter Date Diagnosis [...] May, Right elbow pain (ICD-10 - M25.521) [employer] Other 10-19-2023 Miscellaneous Notes* Telephone Encounter - Allison York OCCA - 05/12/2023 1:29 PM EDT [facility] * Telephone Encounter - Refugio Mosqueda - 05/12/2023 1:16 PM EDT Ashwini from [facility] is calling Noemi Pham MD today to clarify medication. When they were filling the enbrel, it flagged that the patient has a thrombocytopenia diagnosis. They need to clarify that the provider is aware. They cannot send the medication until they get that clarification. [phone] Patient has been identified by name and birthdate. Duration of symptoms: N/A Person calling: pharmacy: [facility] Call patient at: on cell [phone] (home) [phone] (cell) Was an appointment scheduled: No Closing statement: Results or non-symptom based questions: Thank you for calling [facility], your call will be returned within the next business day. Refugio Mosqueda documented in this encounterLicking Memorial Hospital08-16-2023 Miscellaneous Notes* Telephone Encounter - Jud Hess LPN - 03/09/2023 1:59 PM EDT Patient stopped taking the Plaquenil d/t skin rash. Provider aware. * Telephone Encounter - Noemi Pham MD - 03/09/2023 1:37 PM EDT She can continue on the plaquenil bid, eye exam reviewed, no toxicity noted. Noemi Pham MD documented in this encounterLicking Memorial Hospital07-10-2023 Miscellaneous Notes* Telephone Encounter - [...] and mail to her. documented in this encounterLicking Memorial Hospital07-05-2023 Miscellaneous Notes* Telephone Encounter - Brianda Palomares LPN - 01/26/2023 1:53 PM EDT Mailed LEVY label to patient per Dr. Pham's request * Telephone Encounter - Noemi Pham MD - 01/26/2023 1:45 PM EDT Please mail her lab order for LEVY panel. Noemi Pham MD documented in this encounterLicking Memorial Hospital06-23-2023 NoteHNO ID: [id number] Author: Noemi Pham MD Service: ? Author [...] F/U: 6m Check following: -none Noemi Pham, [facility]06-21-2023 Miscellaneous Notes* Telephone Encounter - Noemi Pham [...] 365 Days Visit Type Date Time Department [facility] 01/14/2023 11:00 AM [facility] Last Ophthalmology Check for Plaquenil (Hydroxychloroquine) [...] Instance) Lab Orders None documented in this encounterLicking Memorial Hospital06-02-2023 NoteHNO ID: [id number] Author: Liz Connolly MD Service: ? Author Type: Physician Type: Progress Notes Filed: 01/04/2023 10:43 AM Note Text: [facility] [place] [facility] Note- Established patient Provider: Liz Connolly [...] she has been following with her director of marketing communications with every 6 monthly appointments to monitor [...] with acanthosis nigricans. She had seen Dr. Phma last in 07/2022, with lab work been [...] neck, respiratory, cardiovascular, GI, (more content not included)...[facility] 12-24-2022 NoteHNO ID: [id number] Author: Alejo Marshall MD Service: ? Author [...] completed when applicable. Megantyler Miner Alejo Marshall [facility]06-02-2023 History of Present illness Narrative* Alejo Marshall [...] applicable. Megan Marshall MD documented in this encounterLicking Memorial Hospital05-10-2023 Miscellaneous Notes* Telephone Encounter - Inocencia Bui LPN - 12/01/2022 3:25 PM EDT Prior authorization for Enbrel initiated on Cover My Meds. Pending. documented in this encounterLicking Memorial Hospital05-02-2023 Miscellaneous Notes* Telephone Encounter - Brianna Murray RN - 11/23/2022 9:22 AM EDT Patient has appointment with Dr. Connolly on 12/24/22 and is asking if any tests should be done prior her appointment. Patient was referred by Dr. Pham ( [facility] Patient c/o of increased [...] units/L Brianna Murray RN documented in this encounterLicking Memorial Hospital04-24-2023 Miscellaneous Notes* Telephone Encounter - Noemi Pham MD - 11/15/2022 1:22 PM EDT Please tell her I received labs from [facility] and her cpk and aldolase returned normal . (CPK was 11 and aldolase 5.0 Noemi Pham MD documented in this encounterLicking Memorial Hospital04-05-2023 Miscellaneous Notes* Telephone Encounter - Inocencia Bui LPN - 10/27/2022 9:44 AM EDT Please advise. documented in this encounterLicking Memorial Hospital03-13-2023 Miscellaneous Notes* Telephone Encounter - [...] 365 Days Visit Type Date Time Department [facility] 02/16/2023 11:20 AM [facility] Last Ophthalmology Check for Plaquenil (Hydroxychloroquine) [...] Instance) Lab Orders None documented in this encounterLicking Memorial Hospital02-15-2023 [facility]Up Patient Visit CHIEF COMPLAINT Chief Complaint Patient presents with Follow-up Diarrhea HISTORY OF PRESENT ILLNESS: Lynette Hairston is a 47 y.o. female established patient. Summary of old records: Per HPI from 05/26/22 Lynette Hairston is a 46 y.o. female with PMH of gastroparesis, fatty liver, migraine headache, RA (follows with rheumatology in [place]), anxiety, POTS and IBS. She was last seen in the clinic Jul 2020 for further evaluation of elevated liver enzymes. Today, she presents for further evaluation of diarrhea. has been having diarrhea for years but urgency/incontinence is new. Previous work up for her liver was negative for viral hepatitis, and pointed away from [facility]. There was some thought that the [...] injection, 1 ml, Dis (more content not included)...[facility]01-18-2023 NoteHNO ID: [id number] Author: Jud Hess LPN Service: ? Author Type: ? Type: Progress Notes Filed: 08/11/2022 11:22 AM Note Text: Patient given Depomedrol 80 mg IM in the left upper quadrant gluteus. Patient tolerated injection well. Lot#: [id number] Exp date: 03/23/2024 Jud Rossley [facility]01-18-2023 NoteHNO ID: [id number] Author: Inocencia Bui LPN Service: ? Author Type: ? Type: Progress Notes Filed: 08/11/2022 10:21 AM Note Text: Methylprednisolone injection verified. 80mg.[facility]01-18-2023 NoteHNO ID: [id number] Author: Noemi Pham MD Service: ? Author [...] F/U: 6m Check following: -none Noemi Pham, [facility]01-18-2023 History of Present illness Narrative* Jud Hess LPN - 08/11/2022 11:21 AM EST Patient given Depomedrol 80 mg IM in the left upper quadrant gluteus. Patient tolerated injection well. Lot#: [id number] Exp date: 03/23/2024 Jud Hess LPN * [...] today -check labs today F/U in 6m Nomei Pham MD F/U: 6m Check following: -none Noemi Pham MD documented in this encounterLicking Memorial Hospital11-21-2022 Miscellaneous Notes* Telephone Encounter - BuiInocencia LPN - 06/14/2022 3:35 PM EST Mohsen Prince Felder: [id number] - PA - Rx #: [id number] help? Call us at Outcome Approvedon June 11 CaseId:[id number];Status:Approved;Review Type:Prior Auth;Coverage Start Date:05/12/2022;Coverage End Date:06/11/2023; * Telephone Encounter - Jud Hess LPN - 06/11/2022 11:22 AM EST PA for Enbrel submitted via Cover My Meds this date. If approved new Rx will need sent to [facility]. * Telephone Encounter - Diana Stanley - 06/04/2022 9:59 AM EST Lynette Prince called today. : 1975 Allergies: Meloxicam and Methotrexate (home) [phone] (cell) Reason for call: patient states she spoke with Mobile Event Guide requesting additional info for medication For ENBREL Please advise Patient last appointment: 05/29/2022 The patients preferred pharmacy has been captured for this encounter? yes RHODA STARR documented in this encounterLicking Memorial Hospital11-10-2022 Miscellaneous Notes* Telephone Encounter - Inocencia Bui LPN - 06/03/2022 9:36 AM EST Follow up message from 05/17/22 encounter and orders. documented in this encounterLicking Memorial Hospital11-07-2022 Miscellaneous Notes* Telephone Encounter - [...] Days Visit Type Date Time Department [facility] 10/20/2022 9:40 AM [facility] CBC: None on file in the [...] Instance) Lab Orders None documented in this encounterLicking Memorial Hospital11-02-2022 [facility] Gastroenterology Follow-Up Patient Visit CHIEF COMPLAINT Chief Complaint Patient presents with Diarrhea Follow-up Patient states she has randomly lost control of her bowels in the recent weeks. HISTORY OF PRESENT ILLNESS: Lynette Hairston is a 46 y.o. female with PMH of gastroparesis, fatty liver, migraine headache, RA (follows with rheumatology in [place]), anxiety, POTS and IBS. She was last [...] afternoon, and at bed (more content not included)...[facility]10-24-2022 Miscellaneous Notes* Telephone Encounter - [...] : 1975 Allergies: Meloxicam and Methotrexate (home) [phone] (cell) Reason for call: Patient called asking [...] not asked Glory Mason documented in this encounterLicking Memorial Hospital06-07-2022 Miscellaneous Notes* Telephone Encounter - Jud Hess LPN - 12/29/2021 2:47 PM EDT PA for Enbrel submitted via Cover My Meds. Felder: [id number] Pend for determination * Telephone Encounter - [...] message on voicemail) ' documented in this encounterLicking Memorial Hospital04-06-2022 Miscellaneous Notes* Telephone Encounter - Jud Hess LPN - 10/28/2021 12:13 PM EDT Rx placed in outgoing mail this date. Patient notified via [employer]. * Telephone Encounter - Noemi Pham MD - 10/28/2021 11:59 AM EDT rx for handicapped written, please mail to patient. Noemi Pham MD [facility]* Diagnosis Neuropathic pain- Primary Neuralgia, neuritis, and radiculitis, unspecified documented in this encounter [facility] [email or web address] Work Phone: evaluation note* Diagnosis Fibromyalgia- Primary Mylagia and myositis, unspecified documented in this encounter [facility] noteNo assessment information [place] Work Phone: Evaluation note* Diagnosis Rheumatoid arthritis involving multiple sites, unspecified whether rheumatoid factor present (HCC)- Primary documented in this encounter [facility] note* Diagnosis Myalgia- Primary Mylagia and myositis, unspecified documented in this encounter [facility] note* Diagnosis Fatigue, unspecified type- Primary Elevated aldolase level Other nonspecific abnormal serum enzyme levels Generalized weakness Other malaise and fatigue documented in this encounter [facility] note* Diagnosis Fatigue, unspecified type Elevated aldolase level Other nonspecific abnormal serum enzyme levels Generalized weakness Other malaise and fatigue documented in this encounter [facility] note* Diagnosis Rheumatoid arthritis involving multiple sites, unspecified whether rheumatoid factor present (HCC)- Primary documented in this encounter [facility] note* Diagnosis Pain in joint, multiple sites- Primary Trochanteric bursitis of both hips Enthesopathy of hip region documented in this encounter [facility] note* Diagnosis Pain in joint, multiple sites documented in this encounter [facility] noteNo [employer] Other Evaluation note* Diagnosis Status migrainosus- Primary Variants of migraine, not elsewhere classified, without mention of intractable migraine without mention of status migrainosus Migraine without aura and without status migrainosus, not intractable Cervicalgia Fibromyalgia Unspecified myalgia and myositis Paresthesias Disturbance of skin sensation Trapezius muscle spasm Vertigo Dizziness and giddiness documented in this encounter [facility] Hospitaledic[facility] SystemEvaluation [facility]* Diagnosis Primary hypertension- Primary Unspecified essential hypertension Coronary artery vasospasm (CMS-HCC) Prinzmetal angina Intermittent palpitations Obstructive sleep apnea Obstructive sleep apnea (adult) (pediatric) documented [facility] this encounter [facility]* Diagnosis Chronic bilateral low back pain without sciatica- Primary documented in this encounter [facility] HospitalEvaludelaware hospital for [facility] note* Diagnosis Spinal stenosis of lumbar region with neurogenic claudication- Primary Spinal stenosis, lumbar region, with neurogenic claudication documented in this encounter [facility]* Diagnosis Retinoschisis, bullous, bilateral- Primary High risk medication use Hypertensive retinopathy of both eyes Hypertensive retinopathy Epiretinal membrane (ERM) of both eyes PVD (posterior vitreous detachment), right eye Vitreous syneresis of both eyes Presbyopia Hx of rheumatoid arthritis Retinoschisis, bullous, bilateral Retinoschisis, bullous, bilateral documented in this encounter [facility]* Diagnosis High risk medication use- Primary documented in this encounter [facility]* Diagnosis Retinoschisis, bullous, bilateral documented in this encounter [facility] HospitalHiscy[facility] Narrative - Reported* Type Description Date Medical History rheumatoid arthritis Medical History anxiety Medical History chronic depression Medical History coronary artery disease Surgical History heart catheterization Surgical History gall bladder removed Surgical History tonsillectomy and adenoidectomy Surgical History HYSTERECTOMY Surgical History appendectomy Hospitalization History surgeries [facility] Other Hospital Discharge instructions* Instructions* Garfield Restrepo [...] a follow up appointment THANK YOU!!! From [facility] and [facility] On behalf of the Emergency Department staff at [facility], I would like to thank you for giving us the opportunity to address your health care needs and concerns. We hope that during your visit, our service was delivered in a professional and caring manner. Please keep [facility] in mind as we walk with you [...] how we did during your visit at [email or web address] and let us know about your experience * Attachments The following attachments cannot be sent through Care Everywhere. * Neuropathic Pain (Welsh) documented in this encounterWebStudiyo Productions Phone: InstructionsNot on filedocumented in this encounter [email or web address] SystemInstructionsNot on filedocumented in this encounter [email or web address] SystemInstructionsNot on filedocumented in this encounter [email or web address] SystemInstructionsNot on filedocumented in this encounter [email or web address] SystemInstructionsNot on filedocumented in this encounter [email or web address] SystemInstructionsNot on filedocumented in this encounter [facility] HospitalReason for referral (narrative)* Outpatient Procedure (Routine) - Pending Review Specialty Diagnoses / Procedures Referred By Contac t Referred To Contact [facility] Diagnoses Fatigue, unspecified type Elevated aldolase level Generalized weakness Procedures EMG(NEURO/NI) NERVE CONDUCTION STUDIES 9-10 STUDIES Liz Connolly MD [address] [place] [address] Neurological [place] [address] [place] [address] Referral ID Status Reason Start Date Expiration Date Visits Requested Visits Authorized [id number] Pending Review Auto-Generat ed Referral 11/23/2022 11/24/2023 1 1 [facility] for referral (narrative)* Diagnostic Procedure Only (Routine) - Closed Specialty Diagnoses / Procedures Referred By Contac t Referred To Contact XR IMAGING Diagnoses Pain in joint, multiple sites Procedures XR LUMBAR GENERAL 3V AP/LAT/L5-S1 RADEX SPINE LUMBOSACRAL 2/3 VIEWS Noemi Pham MD [address] [place] [address] [place] [address] Referral ID Status Reason Start Date Expiration Date V isits Requested Visits Authorized [id number] Closed Auto-Generate d Referral 06/24/2023 07/23/2024 1 1 [facility] for referral (narrative)* Diagnostic Procedure Only (Routine) - Closed Specialty Diagnoses / Procedures Referred By Contac t Referred To Contact XR IMAGING Diagnoses Pain in joint, multiple sites Procedures XR LUMBAR GENERAL 3V AP/LAT/L5-S1 RADEX SPINE LUMBOSACRAL 2/3 VIEWS Noemi Pham MD [address] [place] [id number] Xr Imaging [facility]95 Referral ID Status Reason Start Date Expiration Date V isits Requested Visits Authorized [id number] Closed Auto-Generate d Referral 06/24/2023 07/23/2024 1 1 [facility] for referral (narrative)* Consultation (Routine) - Pending Review Specialty Diagnoses / Procedures Referred By Contac t Referred To Contact Pulmonary Medicine Diagnoses Obstructive sleep apnea Michael Perkins MD [address] [place] [address] Olegario Joseph MD [address] [address] Referral ID Status Reason Start Date Expiration Date Visits Requested Visits Authorized [id number] Pending Review Specialty Services Required 09/02/2023 09/01/2024 1 1 [facility] for referral (narrative)* Diagnostic Procedure Only (Routine) - Pending Review Specialty Diagnoses / Procedures Referred By Contac t Referred To Contact XR IMAGING Diagnoses Chronic bilateral low back pain without sciatica Procedures XR LUMBAR GENERAL 3V AP/LAT/L5-S1 RADEX SPINE LUMBOSACRAL 2/3 VIEWS Noemi Pham MD [address] [address] [place] [address] Imaging [place] [address] Referral ID Status Reason Start Date Expiration Date Visits Requested Visits Authorized [id number] Pending Review Auto-Generat ed Referral 09/19/2023 10/18/2024 1 1 [facility] for visit Narrative* Outpatient Procedure (Routine) - Closed Specialty Diagnoses / Procedures Referred By Contnorma t Referred To Contact [facility] Diagnoses Fatigue, unspecified type Elevated aldolase level Generalized weakness Procedures EMG(NEURO/NI) NERVE CONDUCTION STUDIES 9-10 STUDIES Liz Connolly MD [address] [place] [address] [place] [address] Referral ID Status Reason Start Date Expiration Date V isits Requested Visits Authorized [id number] Closed Auto-Generate d Referral 11/23/2022 11/24/2023 1 1 [facility] Advance Directives Documents on File Type Date Recorded Patient Underwear Cutter Expl anation ACP-Advance Directive ACP-Power of Watershed Program Manager Documents on File Type Date Recorded Patient Underwear Cutter Expl anation Advance Directives and Living Will Power of Watershed Program Manager Documents on File Type Date Recorded Patient Underwear Cutter Expl anation ACP-Advance Directive ACP-Power of Watershed Program Manager Latest Code Status on File Code Status [...] Records Found Procedure Findings Note MR#: [id number] [facility] Pt. Name: Lynette Prince Surgery Date: 08/22/2019 Room #: Z0 Date of : 1975 PROCEDURE NOTE ATTENDING: Dina Zhou M.D. PROCEDURE PERFORMED: Esophagogastroduodenoscopy. FLIGHT SURVEYOR: Zackary Narvaez M.D. ANESTHESIA USED: Conscious sedation [...] ice in a towel. Please call your room service manager tomorrow and your family physician tomorrow to schedule follow-up for 1to 2 days Return to the emergency room for worsening pain swelling numbness tingling or other emergent concerns * Attachments The following attachments cannot be sent through Care Everywhere. * Foot Sprain (Welsh) documented in this encounter Assessments Diagnosis Sprain [...] LUMBAR W/O CONTRAST MATERIAL Noemi Pham MD [address] [place] [address] [place] [facility] Referral ID Status Reason Start Date Expiration Date Visits Requested Visits Authorized [id number] Pending Review Auto-Generat ed Referral 09/21/2023 10/20/2024 1 1 Additional Source Comments Reason for Visit (unrecogniz ed section and content) Status Reason Specialty Diagnoses / Procedures Referred By Contact Referred To Contact Authorized Physical Therapy Diagnoses Plantar fasciitis Procedures eval and treat Isael Yoder MD [address] [facility] [place] [address] aSnder Jauregui, PT Reason Comments Foot Pain Left [...] SPINE LUMBOSACRAL 2/3 VIEWS Noemi Pham MD [address] [place] [address] Xr Imaging [facility]95 Referral ID Status Reason Start Date Expiration Date V isits Requested Visits Authorized [id number] Closed Auto-Generate d Referral 06/24/2023 07/23/2024 1 1 Reason Onset Date Comments Headache 07/21/2023 Reason Comments Migraine Migraine cocktail Reason Onset Date Comments Appointment 09/01/2023 Reason Comments Follow-up Hypertension Reason Comments Pain Reason Comments Results X-ray results XR lum bar spine Reason Comments Retinoschisis, bullous, bilateral Reason Comments Procedure INFORMATION SOURCE (unrecogn ized section and content) DATE CREATED AUTHOR 08/14/2020 [facility] DATE CREATED AUTHOR AUTHOR'S ORGANIZ ATION 07/25/2021 [facility] DATE CREATED AUTHOR AUTHOR'S ORGANIZ ATION 09/20/2022 [facility] DATE CREATED AUTHOR AUTHOR'S ORGANIZ ATION 10/30/2022 [facility] DATE CREATED AUTHOR AUTHOR'S ORGANIZ ATION 03/25/2023 [facility] DATE CREATED AUTHOR AUTHOR'S ORGANIZ ATION 06/27/2023 [facility] DATE CREATED AUTHOR AUTHOR'S ORGANIZ ATION 06/27/2023 [facility] DATE CREATED AUTHOR AUTHOR'S ORGANIZ ATION 09/30/2023 [facility] DATE CREATED AUTHOR AUTHOR'S ORGANIZ ATION 10/14/2023 [facility] Ordered Prescriptions (unrec ognized section [...] or prosecute any alcohol or drug abuse patient.[facility] HospitalIn the event this information is protected by the Federal Confidentiality of Alcohol and Drug Abuse Patient Records regulations: The Federal rules restrict any use of the information to criminally investigate or prosecute any alcohol or drug abuse patient.[facility] HospitalIn the event this information is protected by the Federal Confidentiality of Alcohol and Drug Abuse Patient Records regulations: The Federal rules restrict any use of the information to criminally investigate or prosecute any alcohol or drug abuse patient.[facility] HospitalIn the event this information is protected by the Federal Confidentiality of Alcohol and Drug Abuse Patient Records regulations: The Federal rules restrict any use of the information to criminally investigate or prosecute any alcohol or drug abuse patient.[facility] HospitalIn the event this information is protected by the Federal Confidentiality of Alcohol and Drug Abuse Patient Records regulations: The Federal rules restrict any use of the information to criminally investigate or prosecute any alcohol or drug abuse patient.[facility] HospitalIn the event this information is protected by the Federal Confidentiality of Alcohol and Drug Abuse Patient Records regulations: The Federal rules restrict any use of the information to criminally investigate or prosecute any alcohol or drug abuse patient.[facility] HospitalIn the event this information is protected by the Federal Confidentiality of Alcohol and Drug Abuse Patient Records regulations: The Federal rules restrict any use of the information to criminally investigate or prosecute any alcohol or drug abuse patient.[facility] HospitalIn the event this information is protected by the Federal Confidentiality of Alcohol and Drug Abuse Patient Records regulations: The Federal rules restrict any use of the information to criminally investigate or prosecute any alcohol or drug abuse patient.[facility] HospitalIn the event this information is protected by the Federal Confidentiality of Alcohol and Drug Abuse Patient Records regulations: The Federal rules restrict any use of the information to criminally investigate or prosecute any alcohol or drug abuse patient.[facility] HospitalIn the event this information is protected by the Federal Confidentiality of Alcohol and Drug Abuse Patient Records regulations: The Federal rules restrict any use of the information to criminally investigate or prosecute any alcohol or drug abuse patient.[facility] HospitalIn the event this information is protected by the Federal Confidentiality of Alcohol and Drug Abuse Patient Records regulations: The Federal rules restrict any use of the information to criminally investigate or prosecute any alcohol or drug abuse patient.[facility] HospitalIn the event this information is protected by the Federal Confidentiality of Alcohol and Drug Abuse Patient Records regulations: The Federal rules restrict any use of the information to criminally investigate or prosecute any alcohol or drug abuse patient.[facility] HospitalIn the event this information is protected by the Federal Confidentiality of Alcohol and Drug Abuse Patient Records regulations: The Federal rules restrict any use of the information to criminally investigate or prosecute any alcohol or drug abuse patient.[facility] HospitalIn the event this information is protected by the Federal Confidentiality of Alcohol and Drug Abuse Patient Records regulations: The Federal rules restrict any use of the information to criminally investigate or prosecute any alcohol or drug abuse patient.[facility] HospitalIn the event this information is protected by the Federal Confidentiality of Alcohol and Drug Abuse Patient Records regulations: The Federal rules restrict any use of the information to criminally investigate or prosecute any alcohol or drug abuse patient.[facility] HospitalIn the event this information is protected by the Federal Confidentiality of Alcohol and Drug Abuse Patient Records regulations: The Federal rules restrict any use of the information to criminally investigate or prosecute any alcohol or drug abuse patient.[facility] HospitalIn the event this information is protected by the Federal Confidentiality of Alcohol and Drug Abuse Patient Records regulations: The Federal rules restrict any use of the information to criminally investigate or prosecute any alcohol or drug abuse patient.[facility] HospitalIn the event this information is protected by the Federal Confidentiality of Alcohol and Drug Abuse Patient Records regulations: The Federal rules restrict any use of the information to criminally investigate or prosecute any alcohol or drug abuse patient.[facility] HospitalIn the event this information is protected by the Federal Confidentiality of Alcohol and Drug Abuse Patient Records regulations: The Federal rules restrict any use of the information to criminally investigate or prosecute any alcohol or drug abuse patient.[facility] HospitalIn the event this information is protected by the Federal Confidentiality of Alcohol and Drug Abuse Patient Records regulations: The Federal rules restrict any use of the information to criminally investigate or prosecute any alcohol or drug abuse patient.[facility] HospitalIn the event this information is protected by the Federal Confidentiality of Alcohol and Drug Abuse Patient Records regulations: The Federal rules restrict any use of the information to criminally investigate or prosecute any alcohol or drug abuse patient.[facility] HospitalIn the event this information is protected by the Federal Confidentiality of Alcohol and Drug Abuse Patient Records regulations: The Federal rules restrict any use of the information to criminally investigate or prosecute any alcohol or drug abuse patient.[facility] HospitalIn the event this information is protected by the Federal Confidentiality of Alcohol and Drug Abuse Patient Records regulations: The Federal rules restrict any use of the information to criminally investigate or prosecute any alcohol or drug abuse patient.[facility] HospitalIn the event this information is protected by the Federal Confidentiality of Alcohol and Drug Abuse Patient Records regulations: The Federal rules restrict any use of the information to criminally investigate or prosecute any alcohol or drug abuse patient.[facility] HospitalIn the event this information is protected by the Federal Confidentiality of Alcohol and Drug Abuse Patient Records regulations: The Federal rules restrict any use of the information to criminally investigate or prosecute any alcohol or drug abuse patient.[facility] HospitalIn the event this information is protected by the Federal Confidentiality of Alcohol and Drug Abuse Patient Records regulations: The Federal rules restrict any use of the information to criminally investigate or prosecute any alcohol or drug abuse patient.[facility] HospitalIn the event this information is protected by the Federal Confidentiality of Alcohol and Drug Abuse Patient Records regulations: The Federal rules restrict any use of the information to criminally investigate or prosecute any alcohol or drug abuse patient.[facility] HospitalIn the event this information is protected by the Federal Confidentiality of Alcohol and Drug Abuse Patient Records regulations: The Federal rules restrict any use of the information to criminally investigate or prosecute any alcohol or drug abuse patient.[facility] Teams (unrecognized sec tion and content) Bond Trader Relationship Specialty Start Date End Date Toy Obrien MD PCP - General Family Practice 07/05/16 Bond Trader Relationship Specialty Start Date End Date Toy Obrien MD PCP - General Family Practice 07/05/16 Bond Trader Relationship Specialty Start Date End Date Toy Obrien MD PCP - General Family Medicine 07/05/16 Bond Trader Relationship Specialty Start Date End Date Toy Obrien MD PCP - General Family Medicine 07/05/16 Bond Trader Relationship Specialty Start Date End Date Toy Obrien MD PCP - General Family Medicine 07/05/16 Team Status: Inactive Member Role Status Dates Jud Monson INSULATION SPRAYER-C Attending Provider Active Bond Trader Relationship Specialty Start Date End Date Toy Obrien MD PCP - General Family Medicine 07/05/16 Bond Trader Relationship Specialty Start Date End Date Toy Obrien MD PCP - General Family Medicine 07/05/16 Bond Trader Relationship Specialty Start Date End Date Toy Obrien MD PCP - General Family Medicine 07/05/16 Bond Trader Relationship Specialty Start Date End Date Toy Obrien MD PCP - General Family Medicine 07/05/16 Bond Trader Relationship Specialty Start Date End Date Toy Obrien MD PCP - General Family Medicine 07/05/16 Bond Trader Relationship Specialty Start Date End Date Toy Obrien MD PCP - General Family Medicine 07/05/16 Bond Trader Relationship Specialty Start Date End Date Toy Obrien MD PCP - General Family Medicine 07/05/16 Bond Trader Relationship Specialty Start Date End Date Toy Obrien MD PCP - General Family Medicine 07/05/16 Bond Trader Relationship Specialty Start Date End Date Toy Obrien MD PCP - General Family Medicine 07/05/16 Bond Trader Relationship Specialty Start Date End Date Toy Obrien MD PCP - General Family Medicine 07/05/16 Bond Trader Relationship Specialty Start Date End Date Toy Obrien MD PCP - General Family Medicine 07/05/16 Bond Trader Relationship Specialty Start Date End Date [facility] [place] [phone] PCP - General Family Medicine 09/06/22 Bond Trader Relationship Specialty Start Date End Date [facility] [place] [phone] PCP - General Family Medicine 09/06/22 Bond Trader Relationship Specialty Start Date End Date [facility] [place] [phone] PCP - General Family Medicine 09/06/22 Bond Trader Relationship Specialty Start Date End Date Toy Obrien MD [facility] [place] [phone] PCP - General Family Medicine 09/06/22 Bond Trader Relationship Specialty Start Date End Date Toy Obrien MD [facility] [place] [address] [place] [phone] PCP - General Family Medicine 09/06/22 Bond Trader Relationship Specialty Start Date End Date Toy Obrien MD PCP - General Family Medicine 07/05/16 Bond Trader Relationship Specialty Start Date End Date Toy Obrien MD PCP - General Family Medicine 07/05/16 Bond Trader Relationship Specialty Start Date End Date Toy Obrien MD PCP - General Family Medicine 07/05/16 Bond Trader Relationship Specialty Start Date End Date Toy Obrien MD PCP - General Family Medicine 07/05/16 Bond Trader Relationship Specialty Start Date End Date Toy Obrien MD [facility] [place] [phone] PCP - General Family Medicine 09/06/22 Bond Trader Relationship Specialty Start Date End Date Toy Obrien MD [facility] [place] [phone] PCP - General Family Medicine 09/06/22 Bond Trader Relationship Specialty Start Date End Date Toy Obrien MD [facility] [place] [phone] PCP - General Family Medicine [...] BE BASED ON THE PRIMARY CLINICAL RECORDS. [employer] provides no warranty or guarantee of the accuracy or completeness of information in this document.
--- NOTE | 2023-10-31 07:30 | CA_ITS ---
Patient Name: ROSELIA LANDRY MR#: [id number] : 1975 Exam Date: 10/31/2023 Ordering Doctor: MICHAEL ALBRIGHT M.D. ECHOCARDIOGRAM REPORT PROCEDURE: CA ECHO DOPPLER COMPLETE INDICATIONS: Shortness of breath, chest tightness, palpitations, diabetes, POTS COMPARISON: None. DESCRIPTION: COMPLETE ECHOCARDIOGRAM Real-time transthoracic echocardiography with 2D, M-mode, spectral and color flow Doppler performed. QUALITY: Technical quality was good. 65 , 240#, BSA 2.16 m2, BP 118/82 LEFT VENTRICLE: Normal chamber size. Normal left ventricular wall thickness. Normal systolic function. LV EF: Normal left ventricular ejection fraction, (>55%). DIASTOLIC: Normal diastolic function. ATRIAL SEPTUM: LEFT ATRIUM: Normal chamber size. RIGHT ATRIUM: Normal chamber size. RIGHT VENTRICLE: Normal chamber size. Normal right ventricular systolic function. TRICUSPID VALVE: Normal mobility and thickness. No stenosis with trivial regurgitation. Unable to assess right sided pressures due to lack of measurable tricuspid regurgitation. MITRAL VALVE: Normal mobility and thickness. No evidence of mitral valve stenosis. There is no mitral annular calcification. Trivial mitral regurgitation. AORTIC VALVE: Normal trileaflet appearance. No visible sclerosis. Normal leaflet mobility. No evidence of aortic valve stenosis. No aortic regurgitation. AORTIC ROOT: Normal diameter and appearance. PULMONIC VALVE: Normal thickness and mobility. No stenosis. Trivial regurgitation. PERICARDIUM: No evidence of pericardial effusion. IVC: Not well visualized. PLEURA: CONCLUSION: 1. Normal ventricular function. LVEF is 55-60%. 2. No valvular dysfunction. 3. Unable to assess right sided pressures due to lack of measurable tricuspid regurgitation. 4. No pericardial effusion. Adult Echocardiography Procedure Report Left Ventricle LVEDD (3.7 - 5.6 cm): 4.32 cm LVESD (2.2 - 4.0 cm): 2.74 cm LVIVS thickness (0.6 - 1.2 cm): 0.85 cm LVPW thickness (0.5 - 1.0 cm): 0.59 cm e': 0.11 m/s E - e': 4.93 LVOT Max Gradient: 3.37 mm[Hg], 3.67 mm[Hg] Peak Velocity (LVOT): 0.92 m/s, 0.96 m/s LVOT Diameter 2.19 cm Left Atrium Left Atrium Systolic Dimension: 3.11 cm Mitral Valve MV E to A Ratio: 0.84 Mitral Valve A-Wave Peak Velocity: 0.67 m/s Mitral Valve E-Wave Peak Velocity: 0.57 m/s Right Ventricle Aorta AO Root Diam: 2.47 cm Ascending Ao Diam: 2.44 cm Aortic Valve AoV Area (Peak Donaldo): 2.59 cm2, 2.86 cm2, 2.59 cm2 AoV Area (VTI): 2.92 cm2, 2.86 cm2, 2.92 cm2 Peak Velocity(Antegrade Flow): 1.20 m/s, 1.39 m/s Peak Gradient(Antegrade Flow): 5.78 mm[Hg], 7.72 mm[Hg] Mean Velocity(Antegrade Flow): 0.85 m/s, 0.99 m/s Mean Gradient(Antegrade Flow): 3.33 mm[Hg], 4.41 mm[Hg] Velocity Time Integral: 22.60 cm, 26.32 cm Tricuspid Valve Pulmonic Valve Peak Gradient: 5.03 mm[Hg], 4.26 mm[Hg] Right Atrium Dictated by: Clifford Miranda M.D. on 10/31/2023 at 16:25 Approved by: Clifford Miranda M.D. on 10/31/2023 at 16:30
== END 2023-10-31 07:12 | disposition home or self-care (01) ==
LOC: CARD 07:11
DX: R06.02 Shortness of breath (principal); R07.89 Other chest pain; R00.2 Palpitations; R00.0 Tachycardia, unspecified
CPT/HCPCS: 93306

== ENCOUNTER 2023-11-15 08:39 | Outpatient (OUT) | payer OTHER, SELFPAY ==
[2023-11-15 09:30] LABS: Thyroid Stimulating Hormone 3.189 uIU/mL (0.358-3.740)
[2023-11-15 09:59] LABS: Free T4 0.98 ng/dL (0.76-1.46)
[2023-11-16 08:10] LABS: Triiodothyronine (T3) 139 ng/dL (71-180)
== END 2023-11-15 08:40 | disposition home or self-care (01) ==
LOC: LAB 08:41
DX: L65.9 Nonscarring hair loss, unspecified (principal)
CPT/HCPCS: 36415; 84439; 84443; 84480

== ENCOUNTER 2023-11-28 08:34 | Outpatient (OUT) | payer OTHER, SELFPAY ==
--- NOTE | 2023-11-28 08:38 | MR_ITS ---
The [address] [address] Patient Name: ROSELIA LANDRY MRN: [id number] date: 1975 Sex: F Assigned Patient Location: MRI Current Patient Location: MRI Accession/Order Number: [id number] Exam Date: 11/28/2023 08:55 Report Date: 11/28/2023 14:38 At the request of: NON-STAFF PHYSICIAN Procedure: MR thoracic spine wo/w con MR cervical spine wo/w con, MR thoracic spine wo/w con, 11/28/2023 8:55 AM EDT INDICATION: Demyelinating Disease Central Nervous System G37.9 COMPARISON: There is no appropriate prior study for comparison. TECHNIQUE: Multiplanar, multisequential MRI images of cervical and thoracic spine were obtained without and with contrast. FINDINGS: CERVICAL SPINE: There is loss of normal physiologic cervical lordosis and thoracic kyphosis. The vertebral heights are relatively preserved. There are mild disc osteophyte complex associated with uncovertebral joint arthrosis from C3 to T1. The cervicomedullary junction is unremarkable. No definite signal abnormality within the spinal cord is noted. No abnormal enhancing lesion is noted. No significant neuroforaminal narrowing or canal stenosis in cervical spine is noted. THORACIC SPINE: The conus medullaris is at the level of L1. No signal abnormality within the spinal cord is noted. Hemangioma within the body of T11 is noted. No significant neuroforaminal narrowing or canal stenoses in the thoracic spine is noted. MR/MR thoracic spine wo/w con IMPRESSION: No evidence of demyelinating process in the current study. Electronically authenticated by: ANNA MARIE STOVER Date: 11/28/2023 14:38
--- NOTE | 2023-11-28 08:38 | MR_ITS ---
The [address] [address] Patient Name: ROSELIA LANDRY MRN: [facility]:[id number] date: 1975 Sex: F Assigned Patient Location: MRI Current Patient Location: MRI Accession/Order Number: [id number] Exam Date: 11/28/2023 08:55 Report Date: 11/28/2023 14:38 At the request of: NON-STAFF PHYSICIAN Procedure: MR cervical spine wo/w con MR cervical spine wo/w con, MR thoracic spine wo/w con, 11/28/2023 8:55 AM EDT INDICATION: Demyelinating Disease Central Nervous System G37.9 COMPARISON: There is no appropriate prior study for comparison. TECHNIQUE: Multiplanar, multisequential MRI images of cervical and thoracic spine were obtained without and with contrast. FINDINGS: CERVICAL SPINE: There is loss of normal physiologic cervical lordosis and thoracic kyphosis. The vertebral heights are relatively preserved. There are mild disc osteophyte complex associated with uncovertebral joint arthrosis from C3 to T1. The cervicomedullary junction is unremarkable. No definite signal abnormality within the spinal cord is noted. No abnormal enhancing lesion is noted. No significant neuroforaminal narrowing or canal stenosis in cervical spine is noted. THORACIC SPINE: The conus medullaris is at the level of L1. No signal abnormality within the spinal cord is noted. Hemangioma within the body of T11 is noted. No significant neuroforaminal narrowing or canal stenoses in the thoracic spine is noted. MR/MR cervical spine wo/w con IMPRESSION: No evidence of demyelinating process in the current study. Electronically authenticated by: ANNA MARIE STOVER Date: 11/28/2023 14:38
--- NOTE | 2023-11-28 08:46 | XR_ITS ---
[address] [address] Patient Name: ROSELIA LANDRY MRN: [id number] date: 1975 Sex: F Assigned Patient Location: MRI Current Patient Location: MRI Accession/Order Number: [id number] Exam Date: 11/28/2023 08:41 Report Date: 11/28/2023 09:25 At the request of: NON-STAFF PHYSICIAN Procedure: XR hip LT min 2V PROCEDURE: XR hip LT min 2V COMPARISON: None. HISTORY: Pain In Left Hip M25.50 FINDINGS: BONES:No acute fracture or dislocation. No significant lytic or sclerotic changes. SOFT TISSUES:Negative. No visible soft tissue swelling. EFFUSION:None visible. OTHER: Negative. XR/XR hip LT min 2V IMPRESSION: No acute abnormality Electronically authenticated by: TOY HAYNES Date: 11/28/2023 09:25
--- OUTSIDE RECORDS SUMMARY | 2023-11-28 08:57 | XMS_ITS | CCD ---
Author Organization [facility] Care Team Providers Care Engineering Consultant Name Role Phone Toy Obrien Primary Care Provider TOY OBRIEN Primary Care Unavailable GARFIELD RESTREPO Attending Unavailable TOY OBRIEN Primary Care Unavailable GARFIELD RESTREPO Attending Unavailable BLANCA DAWN Referring Unavailable TOY OBRIEN Primary Care Unavailable BLANCA DAWN Referring Unavailable TOY OBRIEN Primary Care Unavailable Toy Obrien MD Primary Care Provider [phone] Toy Obrien MD Primary Care Provider ZOEY Monson Attending Provider Toy Obrien MD Primary Care Provider [phone] Jud Monson Admitting Unavailable Jud Monson Attending Unavailable NON STAFF Primary Care Unavailable TOY OBRIEN Primary Care Unavailable JACOBR, [...] Primary Care Unavailable NOEMI PHAM Referring Unavailable Beba Richey Unavailable Toy Obrien MD Primary Care Provider [phone] Betty Moreau Unavailable TOY OBRIEN Primary Care Unavailable NASEEM LOUISE Attending Unavailable NASEEM LOUISE Attending Unavailable NASEEM LOUISE Referring Unavailable OBRIEN, TOY Gimenez Primary Care Unavailable OBRIEN, TOY Gimenez Referring Unavailable OBRIEN, TOY P Primary Care Unavailable VIRI, DALLAS S Referring Unavailable OBRIEN, TOY Gimenez Primary Care Unavailable VIRI, DALLAS S Attending Unavailable JOSÉ, TOY Gimenez Referring Unavailable OBRIEN, TOY Gimenez Primary Care Unavailable VIRI, DALLAS S Referring Unavailable OBRIEN, TOY Gimenez Primary Care Unavailable VIRI, DALLAS S Referring Unavailable OBRIEN, TOY Gimenez Primary Care Unavailable CODY HUTCHINS Attending Unavailable JOSÉ, TOY Gimenez Referring Unavailable OBRIEN, TOY Gimenez Primary Care Unavailable CODY HUTCHINS Attending Unavailable JOSÉ, TOY Gimenez Referring Unavailable OBRIEN, TOY Gimenez Primary Care Unavailable MICHAEL PERKINS Attending Unavailable OBRIEN, TOY Gimenez Referring Unavailable OBRIEN, TOY Gimenez Primary Care Unavailable Toy Obrien MD Primary Care Provider Lachelle Barton Unavailable NOEMI PHAM Attending Unavailable JOSÉ, TOY Gimenez Primary Care Unavailable OBRIEN, TOY Gimenez Primary Care Unavailable LIZ CONNOLLY Attending Unavailable JOSÉ, TOY Gimenez Primary Care Unavailable LIZ CONNOLLY Referring Unavailable JOSÉ, TOY Gimenez Primary Care Unavailable BRETT DICKSON Referring Unavailable JOSÉ, TOY Gimenez Primary Care Unavailable BRETT DICKSON Attending Unavailable JOSÉ, TOY Gimenez Primary Care Unavailable LIZ CONNOLLY Attending Unavailable JOSÉ, TOY Gimenez Primary Care Unavailable NOEMI PHAM Attending Unavailable Allergies Allergy Classification Reported Allergen(s) Allergy Type Date of Onset Reaction(s) Facility NSAIDs (1 source) meloxicam Drug Allergy 7 [facility] (20 sources) meloxicam; Translations: [MELOXICAM] Drug Allergy 7 [facility] [place] (20 sources) Methotrexate; Translations: [METHOTREXATE] Drug Allergy 5 GI Upset, [facility] (3 sources) Isosorbide Dinitrate Drug Allergy Unknown [facility] Other (11 sources) Isosorbide; Translations: [ISOSORBIDE MONONITRATE] Drug Allergy 2 Headache, Vomiting [facility] (1 source) Isosorbide Drug Allergy 4 Unknown Reaction [facility] Medications Current Medications Medication Drug Class(es) Dates Sig (Normalized) Sig (Original) amLODIPine 2.5 mg oral tablet (13 sources) Dihydropyridine Calcium Channel Salvador Start: 11-03-2023 take 1 tablet by mouth once daily Amlodipine Active 2.5 MG PO Daily November 03, 2023 12:00am Free[employer] tablet Orally Once a day; Note: Source Status: Taking; Provider: Rossi Yoder ( ) Start: 10-29-2022 take 1 tablet by candice th in the morning amLODIPine (NORVASC) 2.5 mg tablet TAKE 1 TABLET (2.5 MG TOTAL) BY MOUTH IN THE MORNING. 30 tablet 11 10/29/2022 Active amoxicillin 875 mg / clavulanate 125 mg oral tablet (3 sources) Penicillin-class Antibacterial Start: 11-03-2023 take 1 tablet by mouth every twelve hours Amoxicillin-Pot Clavulanate Active 1 TAB PO Every 12 hours November 03, 2023 12:00am [employer] tablet Orally every 12 hrs; Note: Source Status: Start; Refills: 0; Provider: Rossi Dixon Start: 07-13-2023 take 1 tablet by candice th every twelve hours Amoxicillin-Pot Clavulanate 875-125 MG 1 tablet Orally every 12 hrs for 10 day(s) Jun, Active ARIPiprazole 2 mg oral tablet (20 sources) Atypical Antipsychotic [...] mouth o nce daily. aspirin 81 mg chewable tablet (13 sources) Platelet Aggregation Inhibitor, Nonsteroidal Anti-inflammatory Drug Start: 11-03-2023 take 1 tablet by mouth once daily Aspirin Active 1 TAB PO Daily November 03, 2023 12:00am [employer] tablet Orally Once a day; Note: Source Status: Taking; Provider: Rossi Yoder ( ) Start: 09-22-2021 take 1 tablet by candice th once daily aspirin 81 mg Take 1 tablet (81 mg total) by mouth daily. 0 09/22/2021 Active take 1 tablet by candice th every twenty-four hours Aspirin 81 MG 1 tablet Orally Once a day Active baclofen 5 mg oral tablet (5 sources) gamma-Aminobutyric Acid-ergic Agonist Start: 11-17-2023 End: 05-15-2024 take 1 tablet by mouth every eight hours as needed baclofen 5 mg tablet Take 1 tablet by mouth three times a day as needed. 90 tablet 5 11/17/2023 05/15/2024 Active busPIRone hydrochloride 10 mg oral tablet (20 sources) Start: 11-03-2023 take 1 tablet by mouth twice daily Buspirone Active 1 TAB PO Twice daily November 03, 2023 12:00am [employer] tablet Orally Twice a day; Note: Source Status: Taking; Provider: Rossi Yoder ( ) Start: 03-16-2022 take 1 tablet by candice th in the morning busPIRone (BUSPAR) 10 mg tablet Take 1 tablet (10 mg total) by mouth in the morning. 0 03/16/2022 Active take 1 tablet by candice th three times daily busPIRone (BUSPAR) 10 mg tablet Take 10 mg by mouth three times daily. 0 Active Comment on above: Take 10 mg by mouth three times daily. COMPOUNDED PRESCRIPTION (20 sources) Start: 01-04-20 17 COMPOUNDED PRESCRIPTION Handicapped placard Diagnosis- RA Cannot walk >200 ft Duration- 3 yrs 1 Applicator 0 01/03/2017 Active Comment on above: Handicapped placard Diagnosis- RA Cannot walk >200 ft Duration- 3 yrs ergocalciferol 1.25 mg oral capsule (3 sources) Provitamin D2 Compound Start: 11-18-19 24 End: 02-16-20 24 take 1 capsule by mouth every week ergocalciferol 50,000 unit capsule (VITAMIN D2, DRISDOL) Take 1 capsule by mouth one time a week. 12 capsule 0 11/18/2023 02/16/2024 Active Etanercept (20 sources) Tumor Necrosis Factor Salvador Start: 11-03-19 Etanercept Active MG SUBCUT November 03, 2023 12:00am FreeTextSi.5 mL Subcutaneous; Note: Source Status: Taking; Provider: Rossi Yoder ( ) Start: 05-19-2023 Etanercept (EN BREL) 50 mg/mL (1 mL) injection Indications: Seropositive [...] Comment on above: Inject 50mg sq qwkly fluconazole 150 mg oral tablet (2 sources) Azole Antifungal Start: take 1 tablet by mouth once Fluconazole Active 1 TAB PO Once November 03, 2023 12:00am Free[employer] tablet Orally once; Note: Source Status: Start; Refills: 0; Provider: Lizzeth Meade Start: 07-22-2023 take 1 tablet by mouth once Fl uconazole 150 MG 1 tablet Orally once for 1 day Jun, Active fluticasone propionate 0.05 mg/actuat metered dose nasal spray (3 sources) Corticosteroid Start: 11-03-2023 take 2 spray(s) nasal route once daily Fluticasone Propionate Active 2 SPRAY INTRANASAL Daily November 03, 2023 12:00am [employer] sprays Nasally Once a day; Note: Source Status: Start; Refills: 0; Provider: Rossi Dixon Start: 07-13-2023 take 2 spray(s) nasa l route once daily Fluticasone Propionate 50 MCG/ACT 2 sprays Nasally Once a day for 14 day(s) Jun, Active ibuprofen 800 mg oral tablet (20 sources) Nonsteroidal Anti-inflammatory Drug Start: 01-19-2021 ibuprofen (MOTRIN ) 800 mg tablet Take 800 mg by mouth as needed. 0 01/19/2021 Active Start: 11-20-2016 take 1 tablet by candice th every eight hours as needed for pain ibuprofen (ADVIL;MOTRIN) 600 MG tablet Take 1 tablet by mouth every 8 hours as needed for Pain 30 tablet 0 11/20/2016 Active Comment on above: Take 800 mg by mouth as needed. iv contrast (will be provided with radiology test) (6 sources) Start: 11-17-19 End: 11-18-19 inject 1 dose intravenously once iv contrast (will be provided with radiology test) MRI Brain Inject, intravenously, once for 1 dose.No IV access, insert saline lock prior to beginning of sedation, infusion, injection of imaging exam.Discontinue saline lock post exam. If Pt. has a central line or IVAD, may access for administration according to line specific nursing protocol.Once exam is complete flush line and de-access according to line specific nursing protocol in the MR contrast administration guidelines link 1 Each 0 11/17/2023 11/18/2023 Active Start: 11-17-2023 End: 11-18-2023 iv contrast (will be provide d with radiology test) MRI CSP Inject, intravenously, once for 1 dose. No IV access, insert saline lock prior to the beginning of sedation, infusion, injection of imaging exam. Discontinue saline lock post exam. If Pt. has a central line or IVAD, may access for administration according to line specific nursing protocol. Once exam is complete flush line and de-access according to line specific nursing protocol in the MR contrast administration guidelines link. 1 Each 0 11/17/2023 11/18/2023 Active Start: 11-17-2023 End: 11-18-2023 inject 1 dose intravenously once iv contrast (will be provided with radiology test) MRI TSP Inject, intravenously, once for 1 dose. No IV access, insert saline lock prior to the beginning of sedation, infusion, injection of imaging exam. Discontinue saline lock post exam. If Pt. has a central line or IVAD, may access for administration according to line specific nursing protocol. Once exam is complete flush line and de-access according to line specific nursing protocol in the MR contrast administration guidelines link. 1 Each 0 11/17/2023 11/18/2023 Active 24 hr metoprolol succinate 25 mg extended release oral tablet (20 sources) beta-Adrenergic Salvador Start: 09-08-2022 End: 09-02-2023 take 0.5 tablet by mouth every twenty-four [...] tablet (9 sources) Nitrate Vasodilator Start: 09-14-19 23 nitroglycerin (NITROSTAT) 0.4 MG SL tablet 1 under the tongue as needed for angina, may repeat q5mins for up three doses 25 tablet 5 09/14/2022 Active omeprazole 40 mg delayed release oral capsule (20 sources) Proton Pump Inhibitor Start: 03-06-20 21 take 1 capsule by mouth once daily [...] BY CANDICE TH EVERY 12 HOURS NEEDED predniSONE 20 mg oral tablet (20 sources) Start: 07-13-20 23 take 1 tablet by mouth every twelve hours predniSONE 20 MG 1 tablet Orally bid for 5 day(s) Jun, Active Start: 08-11-2022 End: 11-17-2023 take 2-3 tablets by mouth once daily predniSONE (DELTASONE) 5 mg tablet Take 2 to 3 tabs po qd 150 tablet 2 08/11/2022 11/17/2023 Discontinued Start: 02-07-2021 End: 02-17-2021 take 1 tablet by mouth once daily predniSONE (DELTASONE) 20 MG tablet Take 1 tablet by mouth daily for 10 days 10 tablet 0 02/07/2021 02/17/2021 Active Comment on above: Take 2 to 3 tabs po qd propranolol hydrochloride 40 mg oral tablet (5 sources) beta-Adrenergic [place] Start: 12-26-2012 propranolol (INDERAL) 40 MG tablet rOPINIRole 0.25 mg oral tablet (5 sources) Nonergot Dopamine Agonist Start: 11-11-2023 rOPINIRole (REQUIP) 0.25 mg tablet rosuvastatin calcium 20 mg oral tablet (15 sources) HMG-CoA Reductase Inhibitor Start: 09-02-2023 rosuvastatin (CRESTOR) 20 mg tablet Start: 08-13-2022 End: 09-02-2023 take 1 tablet by mouth in the morning rosuvastatin (CRESTOR) 5 mg tablet Take 1 tablet (5 mg total) by mouth in the morning. 30 tablet 11 08/13/2022 09/02/2023 Discontinued sertraline 100 mg oral tablet (20 sources) Serotonin Reuptake Inhibitor Start: 03-13-2013 take 1 tablet by mouth once daily Sertraline (Zoloft) 100 mg tablet Active 100 MG PO Daily November 03, 2023 12:00am FreeTextSi tablet Orally Once a day; Note: Source Status: Taking; Provider: Rossi Yoder ( ) Comment on above: Take 100 mg by mouth once daily. SUMAtriptan 100 mg oral tablet (15 sources) Serotonin-1b and Serotonin-1d Receptor Agonist Start: 09-29-2023 SUMAtriptan (IMITREX) 100 mg tablet Start: 03-10-2023 End: 08-04-2024 SUMAtriptan (IMITREX) 100 mg tablet Take 1 tablet (100 mg total) by mouth once as needed for migraine. May repeat in 2 hours if unresolved. Do not exceed 200 mg in 24 hours. 9 tablet 11 08/05/2023 08/04/2024 Active zonisamide 100 mg oral capsule (18 sources) Anti-epileptic Agent Start: 10-18-2023 take 1 capsule by mouth once daily in the morning, then take 2 capsules by mouth once daily zonisamide (ZONEGRAN) 100 mg capsule TAKE 1 CAPSULE (100 MG TOTAL) BY MOUTH EVERY MORNING AND 2 CAPSULES (200 MG TOTAL) NIGHTLY. 0 10/18/2023 Active Start: 06-20-2023 End: 08-05-2023 take 1 capsule [...] Drug Class(es) Dates Sig (Normalized) Sig (Original) diphenhydrAMINE (2 sources) Histamine-1 Receptor Antagonist Start: 4 End: 4 diphenhydrAMINE (BENADRYL) injection 50 mg hydroxychloroquine sulfate 200 mg oral tablet (20 sources) Antimalarial, Antirheumatic Agent Start: 6 End: 4 take 1 tablet by mouth twice daily hydrOXYchloroQUINE (PLAQUENIL) 200 mg tablet TAKE 1 TABLET BY MOUTH TWICE A DAY 60 tablet 3 03/07/2023 11/17/2023 Discontinued Comment on above: Take 1 tablet by candice th twice daily. TAKE 1 TABLET BY CANDICE TH TWICE A DAY 1 ml ketorolac tromethamine 30 mg/ml injection (6 sources) Nonsteroidal Anti-inflammatory Drug, Cyclooxygenase Inhibitor Start: 4 End: 4 ketorolac (TORADOL) injection 30 mg Start: 03-25-2023 [...] oral tablet (20 sources) l-Thyroxine Start: 02-23-2013 End: 11-17-2023 take 1 tablet by mouth once daily levothyroxine (SYNTHROID) 50 mcg tablet Take 50 mcg by mouth once daily. 0 01/02/2021 11/17/2023 Discontinued Comment on above: Take 50 mcg by mouth once daily. 10 ml lidocaine hydrochloride 10 mg/ml injection (1 source) Antiarrhythmic, Amide Local Anesthetic Start: 06-24-2023 End: 06-24-2023 lidocaine (PF) 10 mg/mL (1 %) 2 mL injection (XYLOCAINE) magnesium oxide 400 mg oral tablet (20 sources) Start: 03-25-2021 End: 11-17-2023 take 1 tablet by mouth twice daily magnesium oxide (MAG-OX) 400 mg (241.3 mg magnesium) tablet Indications: Intractable migraine equivalent , Muscle twitching Take 1 tablet by mouth twice daily. 60 tablet 5 03/25/2021 11/17/2023 Discontinued Start: 02-12-2016 take 400 mg by mouth once rekha y Magnesium Oxide (MAG-OX PO) Take 400 mg by mouth daily 0 02/12/2016 Active Comment on above: Take 1 tablet by candice th twice daily. metaxalone 800 mg oral tablet (20 sources) Start: 01-12-2023 End: 11-17-2023 take 0.5 tablet by mouth twice daily as needed metaxalone (SKELAXIN) 800 mg tablet TAKE 1/2 TABLET BY MOUTH TWICE A DAY NEEDED 30 tablet 1 01/12/2023 11/17/2023 Discontinued Start: 10-28-2022 End: 01-12-2023 take 1 tablet [...] acetate 80 mg injection (DEPO-Medrol) Start: 05-17-2022 End: 11-17-2023 methylPREDNISolone (MEDROL, MARYBEL,) 4 mg Dose-Pack As Instructed per package 21 tablet 0 05/17/2022 11/17/2023 Discontinued Start: 05-17-2022 methylPREDNISo lone (MEDROL, MARYBEL,) 4 mg Dose-Pack As Instructed per package 21 tablet 0 05/17/2022 Active Comment on above: As Instructed per chelsey schofield 1 ml promethazine hydrochloride 25 mg/ml injection (2 sources) Phenothiazine Start: 08-05-2023 End: 08-05-2023 promethazine (PHENERGAN) injection 25 mg Start: 08-05-2023 [...] 0.25 mg/0.5 mL pen injector (20 sources) End: 11-17-2023 inject 0.25 mg by subcutaneous injection every week semaglutide, weight loss, (WEGOVY) 0.25 mg/0.5 mL pen injector Inject 0.25 mg subcutaneously one time a week. 0 11/17/2023 Discontinued inject 0.25 mg by mendez bcutaneous injection every week semaglutide, weight loss, (WEGOVY) 0.25 mg/0.5 mL pen injector Inject 0.25 mg subcutaneously one time a week. 0 Active Comment on above: Inject 0.25 mg subcu taneously one time a week. tiZANidine 4 mg oral tablet (11 sources) Central alpha-2 Adrenergic Agonist Start: End: 4 take 1 tablet by mouth once daily tiZANidine (ZANAFLEX) 4 mg tablet TAKE 1-2 TABLETS (4-8 MG TOTAL) BY MOUTH NIGHTLY. 0 10/16/2023 11/17/2023 Discontinued Start: 03-10-2023 End: 08-05-2023 take 1 tablet by mouth once daily tiZANidine (ZANAFLEX) 4 mg tablet Take 1-2 tablets (4-8 mg total) by mouth nightly. 60 tablet 2 08/05/2023 Active topiramate 100 mg oral tablet (20 sources) Start: 03-06-2021 End: 11-17-2023 take 1 tablet by mouth once daily at bedtime topiramate (TOPAMAX) 100 mg tablet Take 100 mg by mouth daily at bedtime. 0 03/06/2021 11/17/2023 Discontinued Start: 03-27-2013 topiramate (TO PAMAX) 25 MG [...] sources) Anxiety; Translations: [Anxiety disorder, unspecified] Onset: 8 08-07-2020 Chronic Asthma (9 sources) Asthma without status asthmaticus; Translations: [Unspecified asthma, uncomplicated] Onset: 0 09-26-2019 Chronic Blindness and vision defects (20 sources) Diplopia; Translations: [Diplopia] Onset: 9 11-05-2018 Episodic Cardiac dysrhythmias (9 sources) Postural orthostatic tachycardia syndrome ; Translations: [Postural orthostatic tachycardia syndrome] Onset: 0 09-07-2022 Chronic Coronary atherosclerosis and other heart disease (11 sources) Coronary artery spasm; Translations: [Angina pectoris with documented spasm] Onset: 2 09-07-2022 Chronic Disorders of lipid metabolism (9 sources) Hypercholesterolemia; Translations: [Pure hypercholesterolemia, unspecified] Onset: 0 09-26-2019 Chronic Endometriosis (9 sources) Endometriosis (clinical); Translations: [Endometriosis, unspecified] Onset: 0 09-26-2019 Chronic Esophageal disorders (9 sources) Gastroesophageal reflux disease; Translations: [Gastro-esophageal reflux disease without esophagitis] Onset: 0 09-26-2019 Chronic Essential hypertension (12 sources) Hypertensive disorder; Translations: [Essential (primary) hypertension] Onset: 2 09-07-2022 Chronic Genitourinary symptoms and ill-defined conditions (9 sources) Incontinence without sensory awareness; Translations: [Incontinence without sensory awareness] Onset: 0 09-26-2019 Chronic Headache; including migraine (20 sources) Refractory migraine variants; Translations: [Migraine with aura, intractable, without status migrainosus] Onset: 0 03-25-2021 Chronic Heart valve disorders (18 sources) Mitral valve regurgitation; Translations: [Nonrheumatic mitral (valve) insufficiency] Onset: 0 Resolved: 1 09-14-2022 Chronic Malaise and fatigue (20 sources) Fatigue; Translations: [Other fatigue] Onset: 9 11-05-2018 Episodic Nutritional deficiencies (20 sources) Vitamin D deficiency; Translations: [Vitamin D deficiency, unspecified] Onset: 9 11-05-2018 Chronic Other aftercare (2 sources) Taking high risk medication; Translations: [Other care home (current) drug therapy] 10-14-2023 Episodic Other aftercare (1 source) Other rodent exterminator (current) drug therapy; Translations: [Other care home (current) drug therapy] Onset: 4 Episodic Other connective tissue disease (1 source) Neuropathic pain; Translations: [Neuralgia and neuritis, unspecified] Episodic Other connective tissue disease (2 sources) Lateral epicondylitis, right elbow; Translations: [Lateral epicondylitis] Episodic Other connective tissue disease (1 source) Bilateral trochanteric bursitis; Translations: [Trochanteric bursitis, right hip] 06-24-2023 Episodic Other connective tissue disease (1 source) H/O: rheumatoid arthritis; Translations: [Personal history of other diseases of the musculoskeletal system and connective tissue] 10-14-2023 Episodic Other connective tissue disease (1 source) Lateral epicondylitis of right humerus; Translations: [Lateral epicondylitis, right elbow] 11-01-2023 Episodic Other connective tissue disease (1 source) Personal history of other diseases of the musculoskeletal system and connective tissue; Translations: [Personal history of other diseases of the musculoskeletal system and connective tissue] Onset: 4 Episodic Other endocrine disorders (9 sources) Polycystic ovary; Translations: [Polycystic ovarian syndrome] Onset: 0 09-26-2019 Chronic Other eye disorders (1 source) Posterior vitreous detachment of right eye; Translations: [Vitreous degeneration, right eye] 10-14-2023 Chronic Other eye disorders (1 source) Vitreous syneresis; Translations: [Other vitreous opacities, bilateral] 10-14-2023 Chronic Other eye disorders (1 source) Vitreous degeneration, right eye; Translations: [Vitreous degeneration, right eye] Onset: 4 Chronic Other eye disorders (1 source) Other vitreous opacities, bilateral; Translations: [Other vitreous opacities, bilateral] Onset: 4 Chronic Other gastrointestinal disorders (1 source) Intestinal malabsorption, unspecified; Translations: [Intestinal malabsorption, unspecified] Onset: 3 Chronic Other gastrointestinal disorders (4 sources) Altered bowel function; Translations: [Other specified symptoms and signs involving the digestive system and abdomen] Onset: 4 11-11-2023 Episodic Other hereditary and degenerative nervous system conditions (1 source) Restless legs syndrome; Translations: [Restless legs syndrome] Onset: 4 Chronic Other hereditary and degenerative nervous system conditions (4 sources) Restless legs; Translations: [Restless legs syndrome] Onset: 4 11-11-2023 Chronic Other liver diseases (2 sources) Enzyme level - finding; Translations: [Abnormal levels of other serum enzymes] Episodic Other lower respiratory disease (1 source) Shortness of breath; Translations: [Shortness of breath] Onset: 4 Episodic Other nervous system disorders (9 sources) Chronic pain; Translations: [Other chronic pain] Onset: 0 09-26-2019 Chronic Other nervous system disorders (1 source) Spinal cord disease; Translations: [Disease of spinal cord, unspecified] 11-17-2023 Chronic Other nervous system disorders (1 source) Demyelinating disease of central nervous system; Translations: [Demyelinating disease of central nervous system, unspecified] 11-17-2023 Chronic Other nervous system disorders (1 source) Disease of spinal cord, unspecified; Translations: [Myelopathy (HCC)] Onset: 4 Chronic Other nervous system disorders (4 sources) Skin sensation disturbance; Translations: [Unspecified disturbances of skin sensation] Onset: 4 11-11-2023 Episodic Other nervous system disorders (4 sources) Involuntary movement; Translations: [Unspecified abnormal involuntary movements] Onset: 4 11-11-2023 Episodic Other non-traumatic joint disorders (20 sources) Multiple joint pain; Translations: [Pain in unspecified joint] Onset: 3 01-04-2023 Episodic Other non-traumatic joint disorders (2 sources) Pain in right elbow; Translations: [Pain in joint, upper arm] Episodic Other non-traumatic joint disorders (2 sources) Pain in unspecified joint; Translations: [Pain in joint, multiple sites] Onset: 3 Episodic Other non-traumatic joint disorders (1 source) Pain in elbow; Translations: [Pain in right elbow] 11-01-2023 Episodic Other non-traumatic joint disorders (1 source) Hip pain; Translations: [Pain in left hip] 11-25-2023 Episodic Other nutritional; endocrine; and metabolic disorders (20 sources) Obese class I; Translations: [Obesity, unspecified] Onset: 9 10-30-2018 Chronic Other nutritional; endocrine; and metabolic disorders (9 sources) Insulin resistance; Translations: [Insulin resistance] Onset: 0 09-26-2019 Chronic Other nutritional; endocrine; and metabolic disorders (9 sources) Metabolic syndrome X; Translations: [Metabolic syndrome X] Onset: 3 06-24-2021 Chronic Other nutritional; endocrine; and metabolic disorders (9 sources) Body mass index 30+ - obesity; Translations: [Obesity, unspecified] Onset: 2 09-22-2021 Chronic Other nutritional; endocrine; and metabolic disorders (1 source) [place] obesity; Translations: [Obesity, unspecified] 11-17-2023 Chronic Other nutritional; endocrine; and metabolic disorders (1 source) Obesity, unspecified; Translations: [[place] obesity] Onset: 4 Chronic Other screening for suspected conditions (not mental disorders or infectious disease) (20 sources) Electrocardiogram abnormal; Translations: [Abnormal electrocardiogram [ECG] [EKG]] Onset: 0 04-21-2018 Episodic Other skin disorders (1 source) Loss of hair; Translations: [Nonscarring hair loss, unspecified] 11-14-2023 Episodic Other skin disorders (1 source) Nonscarring hair loss, unspecified; Translations: [Hair loss] Onset: 4 Episodic Other upper respiratory infections (1 source) Acute sinusitis, unspecified Episodic Otitis media and related conditions (1 source) Otitis media, unspecified, right ear Episodic Residual codes; unclassified (20 sources) Unrefreshed by sleep; Translations: [Other sleep disorders] Onset: 1 03-25-2021 Chronic Residual codes; unclassified (20 sources) Obstructive sleep apnea syndrome; Translations: [Obstructive sleep apnea (adult) (pediatric)] Onset: 0 03-25-2021 Chronic Residual codes; unclassified (9 sources) Periodic limb movement disorder; Translations: [Periodic limb movement disorder] Onset: 0 09-26-2019 Chronic Residual codes; unclassified (1 source) Periodic limb movement disorder; Translations: [Periodic limb movement disorder] Onset: 0 Chronic Residual codes; unclassified (1 source) Obstructive sleep apnea (adult) (pediatric); Translations: [Obstructive sleep apnea (adult) (pediatric)] Onset: 4 Chronic Retinal detachments; defects; vascular occlusion; and retinopathy (8 sources) Bilateral bullous retinoschisis; Translations: [Other retinoschisis and retinal cysts, bilateral] Onset: 4 10-14-2023 Chronic Rheumatoid arthritis and related disease (12 sources) Rheumatoid arthritis of multiple joints; Translations: [Rheumatoid arthritis, unspecified] Onset: 0 Chronic Systemic lupus erythematosus and connective tissue disorders (9 sources) Autoimmune disease; 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, unspecified] Onset: 0 09-26-2019 Chronic Thyroid disorders (9 sources) Acquired hypothyroidism; Translations: [Hypothyroidism, unspecified] Onset: 6 08-21-2021 Chronic Unclassified (1 source) Sprain of left foot; Translations: [Sprain of left foot, initial encounter] Unclassified (1 source) Pain in right elbow; Translations: [Pain in right elbow] Onset: 3 Unclassified (1 source) Weakness - Generalized Onset: 4 Unclassified (1 source) Shortness of Breath; Heart Palpitations; Weakness Onset: 4 Unclassified (1 source) Retinoschisis, bullous, bilateral Onset: 4 Unclassified (1 source) Procedure Onset: 4 Urinary tract infections (1 source) Acute cystitis without hematuria; Translations: [Acute cystitis without hematuria] Onset: 4 Episodic Past or Other Problems Problem Classification Problem Date Documented Da te Episodic/Chronic Abdominal pain (5 sources) Abdominal pain; Translations: [Unspecified abdominal pain] Onset: 03-28-2013 03-28-2013 Episodic Cancer of cervix (9 sources) Cervicovaginal cytology: Low grade squamous intraepithelial lesion; Translations: [Low grade squamous intraepithelial lesion on cytologic smear of cervix (LGSIL)] Onset: 09-26-2019 09-26-2019 Episodic Cardiac dysrhythmias (11 sources) Intermittent palpitations; Translations: [Palpitations] Onset: 04-26-2018 08-21-2021 Episodic Coma; stupor; and brain damage (20 sources) Daytime somnolence; Translations: [Somnolence] Onset: 11-05-2018 11-05-2018 Episodic Conditions associated with dizziness or vertigo (20 sources) Vertigo; Translations: [Dizziness and giddiness] Onset: 09-26-2019 09-26-2019 Episodic Gastrointestinal hemorrhage (9 sources) Blood-tinged feces; Translations: [Melena] Onset: 07-31-2014 06-24-2021 Episodic Mood disorders (9 sources) Mood disorders Onset: 09-06-2022 09-06-2022 Nonspecific chest pain (18 sources) Chest pain; Translations: [Chest pain, unspecified] Onset: 10-23-2015 09-22-2021 Episodic Other connective tissue disease (11 sources) Fibromyalgia; Translations: [Fibromyalgia] Onset: 09-26-2019 Episodic Other connective tissue disease (20 sources) Muscle pain; Translations: [Myalgia, unspecified site] Onset: 11-05-2018 11-05-2018 Episodic Other connective tissue disease (20 sources) Myofascial pain syndrome; Translations: [Myalgia, other site] Onset: 03-25-2021 03-25-2021 Episodic Other connective tissue disease (10 sources) Muscle spasm of cervical muscle of neck; Translations: [Other muscle spasm] Onset: 09-26-2019 09-26-2019 Episodic Other connective tissue disease (1 source) Fibromyalgia; Translations: [Fibromyalgia] Onset: 09-26-2019 Episodic Other connective tissue disease (1 source) Other muscle spasm; Translations: [Other muscle spasm] Onset: 09-26-2019 Episodic Other disorders of stomach and duodenum (9 sources) Gastroparesis syndrome; Translations: [Gastroparesis] Onset: 09-26-2019 09-26-2019 Episodic Other gastrointestinal disorders (5 sources) Abdominal bloating; Translations: [Abdominal distension (gaseous)] Onset: 03-28-2013 03-28-2013 Episodic Other gastrointestinal disorders (1 source) Full incontinence of feces; Translations: [Full incontinence of feces] Onset: 12-17-2022 Episodic Other gastrointestinal disorders (2 sources) Other fecal abnormalities; Translations: [Other fecal abnormalities] Onset: 12-13-2022 Episodic Other liver diseases (1 source) Abnormal levels of other serum enzymes; Translations: [Elevated aldolase level] Onset: 12-24-2022 Episodic Other lower respiratory disease (9 sources) Dyspnea on exertion; Translations: [Shortness of breath] Onset: 05-26-2015 08-21-2021 Episodic Other nervous system disorders (20 sources) Muscle fasciculation; Translations: [Fasciculation] Onset: 11-05-2018 11-05-2018 Episodic Other nervous system disorders (20 sources) Muscle twitch; Translations: [Fasciculation] Onset: 03-25-2021 03-25-2021 Episodic Other nervous system disorders (10 sources) Paresthesia; Translations: [Paresthesia of skin] Onset: 09-26-2019 09-26-2019 Episodic Other nervous system disorders (1 source) Paresthesia of skin; Translations: [Paresthesia of skin] Onset: 09-26-2019 Episodic Other non-traumatic joint disorders (20 sources) Joint swelling; Translations: [Effusion, unspecified joint] Onset: 01-04-2023 01-04-2023 Episodic Other nutritional; endocrine; and metabolic disorders (20 sources) History of nutritional deficiency; Translations: [Personal history of other endocrine, nutritional and metabolic disease] Onset: 03-25-2021 03-25-2021 Episodic Other nutritional; endocrine; and metabolic disorders (20 sources) H/O: hypothyroidism; Translations: [Personal history of other endocrine, nutritional and metabolic disease] Onset: 03-25-2021 03-25-2021 Episodic Other skin disorders (20 sources) Skin finding; Translations: [Unspecified skin changes] Onset: 01-04-2023 01-04-2023 Episodic Other skin disorders (1 source) Rash and other nonspecific skin eruption; Translations: [Malar rash] Onset: 01-14-2023 Episodic Residual codes; unclassified (20 sources) Disturbance in sleep behavior; Translations: [Sleep disorder, unspecified] Onset: 11-05-2018 11-05-2018 Episodic Spondylosis; intervertebral disc disorders; other back problems (20 sources) Neck pain; Translations: [Cervicalgia] Onset: 09-26-2019 09-26-2019 Episodic Sprains and strains (9 sources) Strain of flexor muscle of hip; Translations: [Strain of muscle, fascia and tendon of unspecified hip, initial encounter] Onset: 12-25-2012 06-24-2021 Episodic Syncope (9 sources) Syncope and collapse; Translations: [Syncope and collapse] Onset: 11-07-2013 Resolved: 04-26-2018 04-26-2018 Episodic Unclassified (9 sources) Onset: 12-21-2017 12-21-2017 Results Test Name Value Interpretation Reference Range Facility [facility] 11-22-2023 [facility] Telephone (NEMS) LYNETTE HAIRSTON ([id number]) 1975 F Date Time Provider Department [facility] During your visit today, we recorded the following information about you: Allen Cinthya Nassar 11/22/2023 1:25 PM Signed Lynette is calling Brett Dickson MD today to request office notes from visit to be faxed to [phone] Attn:Janiya. Patient has been identified by name and birthdate. Duration of symptoms: N/A Person calling: self Call patient at: on cell [phone] (home) [phone] (cell) Was an appointment scheduled: No Closing statement: Results or non-symptom based questions: Thank you for calling [facility], your call will be returned within the next business day. Cinthya Allen Pss Rashi Navas RN 11/24/2023 1:36 PM Signed Notes from last appt on 11/17/23 faxed as per patient's request Mychart sent to patient to notify her Allergies As of Date: 11/22/2023 Noted Allergy Reaction MELOXICAM 11/23/2016 4 - Hives Comments: METHOTREXATE 12/25/2014 8 - GI Upset Date Reviewed: 11/17/2023 Reviewed by: Socorro Paredes MA - Fully Assessed Reason for Visit: office notes [Other] Prescriptions as of 11/24/2023 - ergocalciferol 50,000 unit capsule (VITAMIN D2, DRISDOL) Take 1 capsule by mouth one time a week. - baclofen 5 mg tablet Take 1 tablet by mouth three times a day as needed. - rOPINIRole (REQUIP) 0.25 mg tablet - rosuvastatin (CRESTOR) 20 mg tablet - SUMAtriptan (IMITREX) 100 mg tablet - zonisamide (ZONEGRAN) 100 mg capsule TAKE 1 CAPSULE (100 MG TOTAL) BY MOUTH EVERY MORNING AND 2 CAPSULES (200 MG TOTAL) NIGHTLY. - Etanercept (ENBREL) 50 mg/mL (1 mL) injection Inject 50mg sq qwkly - ondansetron (ZOFRAN) 4 mg tablet TAKE 1 TABLET BY MOUTH EVERY 12 HOURS NEEDED - metoprolol tartrate, short acting, (LOPRESSOR) 25 mg tablet Take 12.5 mg by mouth once daily. - omeprazole (PRILOSEC) 40 mg capsule Take 40 mg by mouth once daily. - ibuprofen (MOTRIN) 800 mg tablet Take 800 mg by mouth as needed. - ARIPiprazole (ABILIFY) 2 mg tablet Take 2 mg by mouth once daily. - busPIRone (BUSPAR) 10 mg tablet Take 10 mg by mouth three times daily. - COMPOUNDED PRESCRIPTION Handicapped placard Diagnosis- RA Cannot walk >200 ft Duration- 3 yrs - sertraline (ZOLOFT) 100 mg tablet Take 100 mg by mouth once daily. Problem List As Of Date 11/22/2023 Noted Resolved Obesity, Class I, BMI 30-34.9 [...] [M25.50] 01/04/2023 Recent skin changes [R23.9] 01/04/2023 Vision disturbance [H53.9] 11/22/2023 Disturbance of skin sensation [R20.9] 11/22/2023 Alteration in bowel and bladder function [R19.8*11/22/2023 Abnormal involuntary movement [R25.9] 11/22/2023 Restless legs [G25.81] 11/22/2023 Encounter Status:Closed by RASHI NAVAS on 11/24/23 Normal [facility] CNPNon 11-21-2023 [facility] Telephone ([employer]) LYNETTE HAIRSTON ([id number]) 1975 F Date Time Provider Department 11/21/23 NOEMI PHAM [employer] During your visit today, we recorded the following information about you: Brianda Palomares LPN 11/21/2023 3:15 PM Signed Patient has been identified by name and date of : Yes, Provider Dr. Pham Date 11/21/2023 Time 3:13pm Type of form: Lab results Form received via: Fax Form has been forwarded to: Provider's desk. Provider name: Dr. Pham and scanning. Brianda Palomares LPN Allergies As of Date: 11/21/2023 Noted Allergy Reaction MELOXICAM 11/23/2016 4 - Hives Comments: METHOTREXATE 12/25/2014 8 - GI Upset Date Reviewed: 11/17/2023 Reviewed by: Socorro Paredes MA - Fully Assessed Reason for Visit: Results [95] Prescriptions as of 11/21/2023 - ergocalciferol 50,000 unit capsule (VITAMIN D2, DRISDOL) Take 1 capsule by mouth one time a week. - baclofen 5 mg tablet Take 1 tablet by mouth three times a day as needed. - rOPINIRole (REQUIP) 0.25 mg tablet - rosuvastatin (CRESTOR) 20 mg tablet - SUMAtriptan (IMITREX) 100 mg tablet - zonisamide (ZONEGRAN) 100 mg capsule TAKE 1 CAPSULE (100 MG TOTAL) BY MOUTH EVERY MORNING AND 2 CAPSULES (200 MG TOTAL) NIGHTLY. - Etanercept (ENBREL) 50 mg/mL (1 mL) injection Inject 50mg sq qwkly - ondansetron (ZOFRAN) 4 mg tablet TAKE 1 TABLET BY MOUTH EVERY 12 HOURS NEEDED - metoprolol tartrate, short acting, (LOPRESSOR) 25 mg tablet Take 12.5 mg by mouth once daily. - omeprazole (PRILOSEC) 40 mg capsule Take 40 mg by mouth once daily. - ibuprofen (MOTRIN) 800 mg tablet Take 800 mg by mouth as needed. - ARIPiprazole (ABILIFY) 2 mg tablet Take 2 mg by mouth once daily. - busPIRone (BUSPAR) 10 mg tablet Take 10 mg by mouth three times daily. - COMPOUNDED PRESCRIPTION Handicapped placard Diagnosis- RA Cannot walk >200 ft Duration- 3 yrs - sertraline (ZOLOFT) 100 mg tablet Take 100 mg by mouth once daily. Problem List As Of Date 11/21/2023 Noted Resolved Obesity, Class I, BMI 30-34.9 [...] 01/04/2023 Encounter Status:Closed by BRIANDA PALOMARES on 11/21/23 Normal [facility] 25(OH)D3 SerPl-mCncon 2023 25-hydroxyvitamin D3 [Mass/Vol] 15.3 ng/mL Low 31.0-80.0 [facility] Comment on above: Order Comment: Speci men Type: BLOOD SPECIMENOrdering Facility: [facility] Address: [address] [place] [address] Performed By: #### 1 989-3, 14297-7 ####[facility] LABCLIA [id number] [place] [address] [place] 25-hydroxyvitamin D3 [Mass/V ol]on 11-17-2023 Interpretation and review of laboratory results Abnormal [facility] B. burgdorferi IgG and IgM p watson (S)on 11-17-2023 B. burgdorferi IgG+IgM Qn (S) Negative Negative [facility] Comment on above: Recent infection wit h B. burgdorferi sensu lato cannot be excluded if the specimen collected within four weeks after the onset of signs and symptoms or within six weeks after a known tick exposure. Clinical and epidemiological correlation is required. Interpretation and review of laboratory results Normal [facility] B. burgdorferi IgG+IgM Qn (S) Negative Normal Negative [facility] Comment on above: Order Comment: Speci men Type: BLOOD SPECIMENOrdering Facility: [facility] Address: [address] [place] [address] Result Comment: Rece nt infection with B. burgdorferi sensu lato cannot be excluded if the specimen collected within four weeks after the onset of signs and symptoms or within six weeks after a known tick exposure. Clinical and epidemiological correlation is required. Performed By: #### 1 989-3, 32964-2 ####[facility] LABCLIA [id number] [place] [id number] [place] C-REACTIVE PROTEINon 024 CRP [Mass/Vol] 0.7 mg/dL NINF - 0.9 mg/dL [facility] CNOVon 11-17-2023 CNOV Office Visit (NEMSLR ) LYNETTE HAIRSTON ([id number]) 1975 F Date Time Provider Department 11/17/23 9:30 AM BRETT DICKSON [facility] During your visit today, we recorded the following information about you: Pulse Blood pressure Weight 104/minute 136/91 113.5 kg Brett Dickson MD 11/17/2023 12:50 PM [facility] NEW PATIENT EVALUATION/CONSULTATIO N Referral source: Cody Hutchins CNP Neurology- [facility] Also followed by: Patient Care Team: Toy Obrien MD as PCP - General (Family Medicine) Lachelle Barton (Gastroenterology) PRINCIPAL NEUROLOGIC DIAGNOSIS: Neurological symptoms undergoing evaluation DISEASE SUMMARY Date of onset: ?2021 Date of diagnosis of MS: tbd Disease course at onset: Relapsing-Remitting Current disease course: Relapsing-Remitting Previous disease therapies: None Current disease therapy: None Most recent MRI brain: 01/2016 Most recent MRI cervical spine: 03/2014 CSF: Not done JCV serology result and date: n/a HISTORY OF ILLNESS: An opinion on this 48 year old right handed female was requested by the referring physician for evaluation regarding possible MS. The patient was accompanied by her daughter. Previous records (physician notes, laboratory reports, and radiology reports) and imaging studies were reviewed and summarized. My recommendations will be communicated back to the patient's physician(s) via electronic medical record and via facsimile. Follow-up is expected to be with me or the referring physician based on results of planned workup. Lynette reports a personal history of neurological signs/ symptoms as follows: Prior to onset trauma, illness, stressor -2021 neck and shoulder stiffness -04/2023 L side of face flushing -3-10/2023 intermittent blurry vision now resolved, lasted a couple weeks -10/2023 toe abduction movements and spasms in her BLE and tingling sensation throughout whole body and left hip pain x1 week- still getting worse. No clear triggers for the movements. She does notice it more at the end of the day. No urge to move them it just happens Current Symptoms: 1. Memory issues 2. Poor balance 3. Movements of toes and spasms of legs 4. Intermittent blurry vision 5. Fatigue 6. Urinary and bowel urgency 7. Pins and needles and tightness when she coughs intensely Neuro-QoL Functions (higher=better functioning) Flowsheet [facility] Office Visit from 11/17/2023 in [facility] Upper Extremity Domain T Score 43.97 Lower Extremity Domain T Score 40.08 Cognitive Function Domain T Score 42.85 Positive Affect Well Being T Score -- Ability To Participate In Social Roles T Score 39.59 Satisfaction With Social Roles T Score 35.47 Neuro-QoL Symptoms (higher=worse symptoms) Flowsheet Row Office Visit from 11/17/2023 in [facility] Sleep Domain T Score 54.31 Fatigue Domain T Score 60.46 Anxiety Domain T Score 56.44 Depression Domain T Score 46.93 Stigma Domain T Score 57.09 Emotional Behavior Dyscontrol T Score -- PAST HISTORY: has a past medical history of Fibromyalgia, Hypothyroidism, Migraines, POTS (postural orthostatic tachycardia syndrome), Restless leg syndrome, and Rheumatoid arthritis (HCC). has no past surgical history on file. has a current medication list which includes the following prescription(s): rosuvastatin, sumatriptan, zonisamide, enbrel, ondansetron, metoprolol tartrate (short acting), omeprazole, ibuprofen, aripiprazole, buspirone, COMPOUNDED PRESCRIPTION, sertraline, baclofen, iv contrast, iv contrast, iv contrast, ropinirole, hydroxychloroquine, prednisone, methylprednisolone, magnesium oxide, levothyroxine, topiramate, and wegovy. Social History Tobacco Use Smoking status: Never Smokeless tobacco: Never family history includes Systemic Lupus Erythematosus in her daughter and mother. PHYSICAL EXAM: BP 136/91 Pulse 104 Wt 113.5 kg (250 lb 3.6 oz) BMI 40.39 kg/m? Multiple Sclerosis Performance Test Flowsheet Row Office Visit from 11/17/2023 in [facility] Processing Speed Total Number Correct 53 Low-contrast letter acuity test-2.5 percent opacity 30 Low-contrast letter acuity test-100 percent opacity 60 Dominant hand Right hand MDT Left Hand Time 28.46 MDT Right Hand Time 29.82 Walking Speed Test (25 feet) 7.56 Hair, skin, nails, and joints were normal. Respirations unlabored on room air. Extremities warm. There was no peripheral edema. +Malden hump on back on neck The patient was alert and oriented to person, place, and time. Speech was fluent without dysarthria. Receptive and expressive language was intact during the conversation of the encounter. Attention remained intact throughout the encounter. Affect was normal. The patient did not appear depressed. Visual acuity 20/20 OD, 20/20 OS, with correction. Visual mehta were full to confrontati (more content not included)... Normal [facility] 11-17-2023 [facility] Telephone (NEMN) LYNETTE HAIRSTON ([id number]) 1975 F Date Time Provider Department 11/17/23 [facility] During your visit today, we recorded the following information about you: Meron Ochoa 11/17/2023 3:25 PM Signed Waves Call Name of caller : Lynette Hairston Relationship to patient: Self Return call phone number : [phone] Reason for call : Other : Brief description of concern : Patient is calling and stated she just seen you and forgot to ask you for a letter for her work place. She said the letter needs to state she had appt with you today and fax it over to her attention at fax #[phone]. Any questions, please call her. Nish Chavez APRN.[facility] 11/18/2023 11:58 AM Signed Letter written Nish Chavez APRN.[facility] November 18, 2023 11:58 AM Kaylynn Conn RN 11/18/2023 12:18 PM Signed Letter faxed marked Attention: Lynette Hairston to fax [phone] as requested. Kaylynn Conn RN Allergies As of Date: 11/17/2023 Noted Allergy Reaction MELOXICAM 11/23/2016 4 - Hives Comments: METHOTREXATE 12/25/2014 8 - GI Upset Date Reviewed: 11/17/2023 Reviewed by: Socorro Paredes MA - Fully Assessed Reason for Visit: Forms/letter [7438] Cmt: Letter for work Prescriptions as of 11/18/2023 - baclofen 5 mg tablet Take 1 tablet by mouth three times a day as needed. - iv contrast (will be provided with radiology test) MRI Brain Inject, intravenously, once for 1 dose.No IV access, insert saline lock prior to beginning of sedation, infusion, injection of imaging exam.Discontinue saline lock post exam. If Pt. has a central line or IVAD, may access for administration according to line specific nursing protocol.Once exam is complete flush line and de-access according to line specific nursing protocol in the MR contrast administration guidelines link - iv contrast (will be provided with radiology test) MRI CSP Inject, intravenously, once for 1 dose. No IV access, insert saline lock prior to the beginning of sedation, infusion, injection of imaging exam. Discontinue saline lock post exam. If Pt. has a central line or IVAD, may access for administration according to line specific nursing protocol. Once exam is complete flush line and de-access according to line specific nursing protocol in the MR contrast administration guidelines link. - iv contrast (will be provided with radiology test) MRI TSP Inject, intravenously, once for 1 dose. No IV access, insert saline lock prior to the beginning of sedation, infusion, injection of imaging exam. Discontinue saline lock post exam. If Pt. has a central line or IVAD, may access for administration according to line specific nursing protocol. Once exam is complete flush line and de-access according to line specific nursing protocol in the MR contrast administration guidelines link. - rOPINIRole (REQUIP) 0.25 mg tablet - rosuvastatin (CRESTOR) 20 mg tablet - SUMAtriptan (IMITREX) 100 mg tablet - zonisamide (ZONEGRAN) 100 mg capsule TAKE 1 CAPSULE (100 MG TOTAL) BY MOUTH EVERY MORNING AND 2 CAPSULES (200 MG TOTAL) NIGHTLY. - Etanercept (ENBREL) 50 mg/mL (1 mL) injection Inject 50mg sq qwkly - ondansetron (ZOFRAN) 4 mg tablet TAKE 1 TABLET BY MOUTH EVERY 12 HOURS NEEDED - metoprolol tartrate, short acting, (LOPRESSOR) 25 mg tablet Take 12.5 mg by mouth once daily. - omeprazole (PRILOSEC) 40 mg capsule Take 40 mg by mouth once daily. - ibuprofen (MOTRIN) 800 mg tablet Take 800 mg by mouth as needed. - ARIPiprazole (ABILIFY) 2 mg tablet Take 2 mg by mouth once daily. - busPIRone (BUSPAR) 10 mg tablet Take 10 mg by mouth three times daily. - COMPOUNDED PRESCRIPTION Handicapped placard Diagnosis- RA Cannot walk >200 ft Duration- 3 yrs - sertraline (ZOLOFT) 100 mg tablet Take 100 mg by mouth once daily. 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 A negative result does not preclude a diagnosis of an inflammatory CRACKER D[employer] MIXER demyelinating disorder. Performed By: #### C DS1SE ####[facility] LABCLIA [id number] [place] [address] MYELIN OLIGODENDROCYTE GLYCOPROTEIN (MOG-IGG1) FLUORESCENCE-ACTIVATE D CELL Negative Normal Negative [facility] Comment on above: Order Comment: [place]ert [place] Type: BLOOD SPECIMENOrdering Facility: [facility] Address: [address] [place] [address] Result Comment: ADDITIONAL INFORMATION This test was developed and its performance characteristics determined by [facility] in a manner consistent with CLIA requirements. This test has not been cleared or approved by the U.S. Food and Drug Administration. Test Performed by: [facility] [place] [id number] Oral Surgeon: Jt Charles M.D. Ph.D.; CLIA# [id number] Performed By: #### C DS1SE ####[facility] LABCLIA [id number] [place] [place] [address] NMO/AQPF FACS, S Negative Normal Negative [facility] Comment on above: Order Comment: Mert del valle Type: BLOOD SPECIMENOrdering Facility: [facility] Address: [address] [place] [address] Result Comment: ADDITIONAL INFORMATION This test was developed and its performance characteristics determined by [facility] in a manner consistent with CLIA requirements. This test has not been cleared or approved by the U.S. Food and Drug Administration. Performed By: #### C DS1SE ####[facility] [id number] [place] [address] COPPER BLOODon 11-17-2023 Copper [Mass/Vol] 104 ug/dL Normal 80-155 [facility] Comment on above: Order Comment: Speci men Type: BLOOD SPECIMENOrdering Facility: [facility] Address: [address] [place] [address] Result Comment: This test was developed and its performance characteristics determined by [facility] Pathology and [facility] [place] ([facility]PLMI). It has not been cleared or approved by the FDA. -[facility] is regulated under CLIA as qualified to perform high-complexity testing. This test is used for clinical purposes. It should not be regarded as investigational or for research. Performed By: #### C OPPER ####[facility] [id number] [place] [address] [place] CORTISOL, SERUMon 11-17-2023 Cortisol [Mass/Vol] 4.6 ug/dL Low 4.8 - 19 .5 ug/dL [facility] Comment on above: Provided reference r carlin is from 6-10 AM sample collection time. Cortisol Reference Range: 6-10 AM = 4.8-19.5 ug/dL, 4-8 PM = 2.5-11.9 ug/dL CRP SerPl-mCncon 11-17-2023 CRP [Mass/Vol] 0.7 mg/dL Normal <0.9 [facility] Comment on above: Order Comment: Speci men Type: BLOOD SPECIMENOrdering Facility: [facility] Address: [address] [place] [address] Performed By: #### 2 132-9, 1987-11 ####[facility] [id number] [place] [address] [place] CRP [Mass/Vol]on 11-17-2023 Interpretation and review of laboratory results Normal [facility] Centromere Ab IF Ql (S)on Centromere Ab Qn (S) <0.2 Normal <1.0 [facility] Comment on above: Order Comment: Speci men Type: BLOOD SPECIMENOrdering Facility: [facility] Address: [address] [place] [address] Result Comment: Anti -centromere antibody is used as in aid in diagnosis of systemic sclerosis. Clinical correlation is required. Test Methodology: Multiplex flow immunoassay. Performed By: #### 1 7791-5, 99650-2, 35558-5, 28279-0, 79239-3, 18381-9, 23584-7, 82518-8 ####[facility] LABIA [id number] [place] [address] [place] CENTROMERE AB QUAL Negative Normal Negative [facility] Comment on above: Order Comment: Speci men Type: BLOOD SPECIMENOrdering Facility: [facility] Address: [address] [place] [address] Performed By: #### 1 7791-5, 66809-8, 03012-5, 34218-3, 35602-2, 85159-3, 92274-5, 58377-0 ####[facility] LABIA [id number] [place] [address] [place] Chromatin Ab Qnon 11-17-2023 CHROMATIN AB QUAL Negative Normal Negative [facility] Comment on above: Order Comment: Speci men Type: BLOOD SPECIMENOrdering Facility: [facility] Address: [address] [place] [address] Performed By: #### 1 7791-5, 27296-2, 08146-9, 38721-3, 20094-3, 99981-3, 11282-4, 39359-5 ####[facility] LABCLIA [id number] [place] [address] [place] Chromatin Ab SerPl-aCncon Chromatin Ab Qn <0.2 Normal <1.0 [facility] Comment on above: Order Comment: Speci men Type: BLOOD SPECIMENOrdering Facility: [facility] Address: [address] [place] [address] Result Comment: Test Methodology: Multiplex flow immunoassay. Performed By: #### 1 7791-5, 68291-2, 53033-8, 97635-4, 91289-0, 06311-8, 08916-6, 64677-6 ####[facility] LABCLIA [id number] [place] [id number] [place] Cobalamin (Vitamin B12) [Mas s/Vol]on 11-17-2023 Interpretation and review of laboratory results Normal [facility] Cortis SerPl-mCncon 11-17-19 24 Cortisol [Mass/Vol] 4.6 ug/dL Low 4.8-19.5 [facility] Comment on above: Order Comment: Speci men Type: BLOOD SPECIMENOrdering Facility: [facility] Address: [address] [place] [address] Result Comment: Prov ided reference range is from 6-10 AM sample collection time. Cortisol Reference Range: 6-10 AM = 4.8-19.5 ug/dL, 4-8 PM = 2.5-11.9 ug/dL Performed By: #### 3 053-6, 3024-7, 3016-3, 2143-6 ####[facility] LABCLIA [id number] [place] [id number] [place] Cortisol [Mass/Vol]on 2023 Interpretation and review of laboratory results Abnormal [facility] DNA double strand Ab IA Qn ( S)on 11-17-2023 DNA ANTIBODY 10 IU/mL Normal <=200 [facility] Comment on above: Order Comment: Speci men Type: BLOOD SPECIMENOrdering Facility: [facility] Address: [address] [place] [address] Result Comment: Nega tive: <200 IU/mL Equivocal: 201-300 IU/mL Moderate Positive: 301-800 IU/mL Strong Positive: >801 IU/mL Performed By: #### 3 2677-7 ####[facility]CLIA [id number] [place] [address] [place] DNA ANTIBODY QUALITATIVE INTERPRETATION Negative Normal Negative [facility] Comment on above: Order Comment: Speci men Type: BLOOD SPECIMENOrdering Facility: [facility] Address: [address] [place] [address] Performed By: #### 3 2677-7 ####[facility] LABIA [id number] [place] [address] [place] LEVY Jo1 Ab Ser-aCncon 2023 Odalis-1 extractable nuclear Ab Qn (S) <0.2 Normal <1.0 [facility] Comment on above: Order Comment: Speci men Type: BLOOD SPECIMENOrdering Facility: [facility] Address: [address] [place] [address] Performed By: #### 1 7791-5, 93027-9, 36544-5, 78206-6, 16650-9, 13863-4, 23099-3, 13831-6 ####[facility] LABIA [id number] [place] [address] [place] LEVY BOILER INSPECTOR Ab Ser-aCncon 2023 Ribonucleoprotein extractable nuclear Ab Qn (S) <0.2 Normal <1.0 [facility] Comment on above: Order Comment: Speci men Type: BLOOD SPECIMENOrdering Facility: [facility] Address: [address] [place] [address] Performed By: #### 1 7791-5, 48872-4, 54426-3, 50519-8, 12226-2, 04424-2, 67295-8, 76892-7 ####[facility] LABIA [id number] [place] [address] [place] Ribonucleoprotein extractable nuclear Ab Qn (S) 0.4 AI Normal <1.0 [facility] Comment on above: Order Comment: Speci men Type: BLOOD SPECIMENOrdering Facility: [facility] Address: [address] [place] [address] Performed By: #### 1 7791-5, 43269-0, 39940-9, 62607-4, 35506-3, 15863-7, 60181-7, 37299-8 ####[facility] LABCLIA [id number] [place] [address] [place] LEVY SM IgG Ser-aCncon 2023 Blanco extractable nuclear IgG Qn (S) <0.2 Normal <1.0 [facility] Comment on above: Order Comment: Speci men Type: BLOOD SPECIMENOrdering Facility: [facility] Address: [address] [place] [address] Performed By: #### 1 7791-5, 61704-2, 93091-2, 95351-3, 93975-2, 90523-3, 14738-3, 16625-8 ####[facility] LABCLIA [id number] [place] [address] [place] LEVY SS-A Ab Ser-aCncon 11-16 Sjogrens syndrome-A extractable nuclear Ab Qn (S) <0.2 Normal <1.0 [facility] Comment on above: Order Comment: Speci men Type: BLOOD SPECIMENOrdering Facility: [facility] Address: [address] [place] [address] Result Comment: Test Methodology: Multiplex flow immunoassay. Performed By: #### 1 7791-5, 85862-2, 15011-9, 95950-2, 97710-9, 21740-5, 45273-8, 21730-9 ####[facility] LABCLIA [id number] [place] [address] [place] LEVY SS-B Ab Ser-aCncon 11-16 Sjogrens syndrome-B extractable nuclear Ab Qn (S) <0.2 Normal <1.0 [facility] Comment on above: Order Comment: Speci ivon Type: BLOOD SPECIMENOrdering Facility: [facility] Address: [address] [place] [address] Result Comment: Anti -SSB (anti-La) antibody is used as an aid in diagnosis of a variety of systemic autoimmune diseases, especially for Sjogren's syndrome and systemic lupus erythematosus. Clinical correlation is required. Test Methodology: Multiplex flow immunoassay. Performed By: #### 1 7791-5, 43956-4, 61427-4, 03680-2, 24728-3, 17114-3, 44647-9, 39110-5 ####[facility] LABIA [id number] [place] [address] [place] ESR Westergren method (Bld) [Velocity]on 11-17-2023 ESR (Bld) [Velocity] 25 mm/h High [facility] Interpretation and review of laboratory results Abnormal [facility] ESR (Bld) [Velocity] 25 mm/h High 0-20 [facility] Comment on above: Order Comment: Lynni ivon Type: BLOOD SPECIMENOrdering Facility: [facility] Address: [address] [place] [address] Performed By: #### 4 537-7 ####[facility] LABCLIA [id number] [place] [address] [place] Odalis-1 extractable nuclear Ab Qn (S)on 11-17-2023 ODALIS 1 ANTIBODY QUAL Negative Normal Negative [facility] Comment on above: Order Comment: Speci ivon Type: BLOOD SPECIMENOrdering Facility: [facility] Address: [address] [place] [address] Result Comment: Anti -ODALIS-1 antibody is used as an aid in diagnosis of polymyositis and dermatomyositis especially with pulmonary involvement. A negative result cannot rule out polymyositis or dermatomyositis. Clinical correlation is required. Test Methodology: Multiplex flow immunoassay. Performed By: #### 1 7791-5, 34080-6, 15302-7, 53466-2, 31076-4, 50617-3, 63632-6, 64365-9 ####[facility] [id number] [place] [address] [place] Ribonucleoprotein extractabl e nuclear Ab Qn (S)on 11-17-2023 ANTI-BOILER INSPECTOR QUAL Negative Normal Negative [facility] Comment on above: Order Comment: Speci men Type: BLOOD SPECIMENOrdering Facility: [facility] Address: [address] [place] [address] Performed By: #### 1 7791-5, 27602-3, 71919-6, 15062-1, 44355-9, 01777-7, 62004-3, 06361-2 ####[facility] [id number] [place] [address] [place] RIBOSOMAL BOILER INSPECTOR QUAL Negative Normal Negative [facility] Comment on above: Order Comment: Lynni ivon Type: BLOOD SPECIMENOrdering Facility: [facility] Address: [address] [place] [address] Result Comment: Anti -Ribosomal RNA (Ribosomal P) antibody is used as an aid in diagnosis of systemic autoimmune diseases especially systemic lupus erythematosus and mixed connective tissue disease. Cross-reactivity with Anti-blanco antibody is not uncommon. Clinical correlation is required. Test Methodology: Multiplex flow immunoassay. Performed By: #### 1 7791-5, 30074-7, 60862-3, 51884-1, 77365-2, 46393-1, 68747-8, 02845-8 ####[facility] [id number] [place] [id number] [place] SCL-70 extractable nuclear I gG IA Qn (S)on 11-17-2023 SCLERODERMA AB QUAL Negative Normal Negative [facility] Comment on above: Order Comment: Lynni men Type: BLOOD SPECIMENOrdering Facility: [facility] Address: [address] [place] [address] Performed By: #### 1 7791-5, 19449-4, 56510-1, 01262-0, 90000-6, 38493-0, 53729-8, 31041-5 ####[facility] LABIA [id number] [place] [address] [place] SCLERODERMA IGG AB <0.2 Normal <1.0 [facility] Comment on above: Order Comment: Speci men Type: BLOOD SPECIMENOrdering Facility: [facility] Address: [address] [place] [address] Result Comment: Scl- 70/Scleroderma antibody test is used as an aid in diagnosis of systemic sclerosis especially the diffuse cutaneous form. A negative result cannot rule out systemic sclerosis. The final interpretation should consider clinical picture and other test results such as anti-centromere antibody. Test Methodology: Multiplex flow immunoassay. Performed By: #### 1 7791-5, 98188-1, 54075-9, 27690-4, 04177-3, 54331-7, 51081-9, 94229-7 ####[facility] [id number] [place] [address] [place] Sjogrens syndrome-A extracta ble nuclear Ab Qn (S)on 11-17-2023 SSA ANTIBODY QUAL Negative Normal Negative [facility] Comment on above: Order Comment: Speci men Type: BLOOD SPECIMENOrdering Facility: [facility] Address: [address] [place] [address] Performed By: #### 1 7791-5, 64801-5, 56255-7, 94262-4, 26204-6, 07024-2, 39205-7, 22691-3 ####[facility] LABIA [id number] [place] [address] [place] Sjogrens syndrome-B extracta ble nuclear Ab Qn (S)on 11-17-2023 SSB ANTIBODY QUAL Negative Normal Negative [facility] Comment on above: Order Comment: Speci men Type: BLOOD SPECIMENOrdering Facility: [facility] Address: [address] [place] [address] Performed By: #### 1 7791-5, 31157-6, 38345-2, 30690-9, 12594-6, 29633-3, 93276-5, 90890-1 ####[facility] [id number] [place] [address] [place] Blanco extractable nuclear Ig G Qn (S)on 11-17-2023 SM ANTIBODY QUAL Negative Normal Negative [facility] Comment on above: Order Comment: Speci men Type: BLOOD SPECIMENOrdering Facility: [facility] Address: [address] [place] [address] Result Comment: Anti -Sm (Blanco) antibody is used as an aid in diagnosis of systemic lupus erythematosus and its presence is associated with renal disease. A negative result cannot rule out systemic lupus erythematosus. Clinical correlation is required. Test Methodology: Multiplex flow immunoassay. Performed By: #### 1 7791-5, 94879-4, 53306-9, 79851-2, 57078-5, 71020-4, 16913-4, 72945-2 ####[facility] [id number] [place] [address] [place] T3 SerPl-mCncon 11-17-2023 T3 [Mass/Vol] 111 ng/dL Normal 79-165 [facility] Comment on above: Order Comment: Speci men Type: BLOOD SPECIMENOrdering Facility: [facility] Address: [address] [place] [address] Performed By: #### 3 053-6, 3024-7, 3016-3, 2143-6 ####[facility] [id number] [place] [address] [place] T4 Free SerPl-mCncon 024 Free T4 [Mass/Vol] 1.2 ng/dL Normal 0.9-1.7 [facility] Comment on above: Order Comment: Speci men Type: BLOOD SPECIMENOrdering Facility: [facility] Address: [address] [place] [address] Performed By: #### 3 053-6, 3024-7, 3015-3, 2142-12 ####[facility] LABIA [id number] [place] [id number] [place] TSH SerPl-aCncon 11-17-2023 TSH Qn 2.200 m[IU]/L Normal 0.270-4.200 [facility] Comment on above: Order Comment: Speci men Type: BLOOD SPECIMENOrdering Facility: [facility] Address: [address] [place] [address] Result Comment: If t he patient is , TSH reference range varies by gestational period: First Trimester (weeks 9-12): 0.180-2.990 mIU/L Second Trimester: 0.110-3.980 mIU/L Third Trimester: 0.480-4.710 mIU/L Shahzad Vance et al. A Practical Approach for the Verifications and Determination of Site- and Trimester-Specific Reference Intervals for Thyroid Function tests in . Thyroid, 2019:29:3:412-420. German Carmichael, et al. 2017 Guidelines of the [place] Thyroid [employer] for the Diagnosis and Management of Thyroid Disease during and the . Thyroid, 2017:27:3:315-389. Performed By: #### 3 053-6, 3023-7, 3, 2142-12 ####[facility] LABIA [id number] [place] [id number] [place] VITAMIN B12on 11-17-2023 Cobalamin (Vitamin B12) [Mass/Vol] 344 pg/mL 232 - 1245 pg/mL [facility] VITAMIN D 25 HYDROXYon 11-16 25-hydroxyvitamin D3 [Mass/Vol] 15.3 ng/mL Low 31.0 - 80.0 ng/mL [facility] Vit B12 SerPl-mCncon 024 Cobalamin (Vitamin B12) [Mass/Vol] 344 pg/mL Normal 232-1245 [facility] Comment on above: Order Comment: Lynni ivon Type: BLOOD SPECIMENOrdering Facility: [facility] Address: [address] [place] [address] Performed By: #### 2 132-9, 1987-11 ####[facility] LABCLIA [id number] [address] [place] CNPShannen 11-14-2023 CNPN Telephone (ORQ) LYNETTE HAIRSTON ([id number]) 1975 F Date Time Provider Department 11/14/23 NOEMI PHAM ORQ During your visit today, we recorded the following information about you: Queenie Richardson 11/14/2023 8:55 AM Signed Lynette is calling Noemi Pham MD today with concern regarding hair loss. Patient is concerned that she has had clumps of hair fall out x1 month. Patient asking if labs can been done for the hair loss? Patient offered to speak with nurse triage, and was unable to remain on the line and requested to receive a call back. Patient has been identified by name and birthdate. Duration of symptoms: N/A Person calling: self Call patient at: at home and on cell [phone] (home) [phone] (cell) Was an appointment scheduled: No Closing statement: Symptom Call: Thank you for calling [facility], your call is very important. A nurse will call in approximately 2-4 hours during business hours. If this is an emergency, please contact 911. Noemi Madrid MD 11/14/2023 1:59 PM Signed Labs ordered for hair loss, please let monteztent know. MD Chepe Lopez Laura, MA 11/14/2023 4:26 PM Signed LVM for pt letting know labs are in the system. Allergies As of Date: 11/14/2023 Noted Allergy Reaction MELOXICAM 11/23/2016 4 - Hives Comments: METHOTREXATE 12/25/2014 8 - GI Upset Date Reviewed: 06/24/2023 Reviewed by: Ty Frye MA - Fully Assessed Reason for Visit: Patient Question [2557] Primary Visit Diagnosis:Hair loss [L65.9] Order(s):THYROID STIMULATING HORMONE [SQTSH] Order #: [id number] FUTURE T3 [SQT3] Order #: [id number] FUTURE T4 FREE/FREE THYROXINE [SQFT4] Order #: [id number] FUTURE Prescriptions as of 11/14/2023 - Etanercept (ENBREL) 50 mg/mL (1 mL) [...] once daily. Problem List As Of Date 11/14/2023 Noted Resolved Obesity, Class I, BMI 30-34.9 [...] skin changes [R23.9] 01/04/2023 Encounter Status:Closed by TY MO on 11/14/23 Normal [facility] 36on 11-09-2023 36 Last seen 08/2022. Need appointment to evaluate continued need of medication Normal [facility] 36on 11-08-2023 36 Lat seen 08/2022 - needs appointment Normal [facility] Mary 11-03-2023 NAVEED Telephone (HYUN) LYNETTE HAIRSTON ([id number]) 1975 F Date Time Provider Department 11/03/23 NOEMI PHAM During your visit today, we recorded the following information about you: Ty Mo MA 11/03/2023 10:06 AM Signed [facility] CaseId:[id number];Status :Approved;Review Type:Prior Auth;Coverage Start Date:10/04/2023;Covera ge End Date:11/02/2024 Allergies As of Date: 11/03/2023 Noted Allergy Reaction MELOXICAM 11/23/2016 4 - Hives Comments: METHOTREXATE 12/25/2014 8 - GI Upset Date Reviewed: 06/24/2023 Reviewed by: Ty Frye MA - Fully Assessed Reason for Visit: Insurance Authorization [1481] Cmt: Enbrel Prescriptions as of 11/03/2023 - Etanercept (ENBREL) 50 mg/mL (1 mL) [...] once daily. Problem List As Of Date 11/03/2023 Noted Resolved Obesity, Class I, BMI 30-34.9 [...] skin changes [R23.9] 01/04/2023 Encounter Status:Closed by TY [place] on 11/03/23 Normal [facility] No Panel [facility] AND AUTO DIFFon 09-27-19 ABSOLUTE BASOPHIL 0.1 X10E9/L Normal 0.0-0.2 [facility] Comment on above: Performed By: #### C NO, CMP, 51649-7, 38366-7 #### [facility] ([id number]) [address] [place] [address] ABSOLUTE NEUTROPHIL 6.1 X10E9/L Normal 1.5-6.6 [facility] Comment on above: Performed By: #### C BCA, CMP, 54908-1, 32703-3 #### [facility] ([id number]) [address] [place] [address] Basophils/100 WBC (Bld) 0.9 % Normal [facility] Comment on above: Performed By: #### C BCA, CMP, 20082-3, 50920-5 #### [facility] ([id number]) [address] [place] [address] Eosinophils (Bld) [#/Vol] 0.2 10*3/uL Normal 0.0-0.4 [facility] Comment on above: Performed By: #### C BCA, CMP, 43407-2, 12398-1 #### [facility] ([id number]) [address] [place] [address] Eosinophils/100 WBC (Bld) 2.0 % Normal [facility] Comment on above: Performed By: #### C BCA, CMP, 82937-0, 32520-4 #### [facility] ([id number]) [address] [place] [address] Erythrocyte distribution width (RBC) [Ratio] 13.1 % Normal 11.5-15.0 [facility] Comment on above: Performed By: #### C BCA, CMP, 46814-6, 86987-7 #### [facility] ([id number]) [address] [place] [address] Hematocrit (Bld) [Volume fraction] 45.3 % Normal 35-47 [facility] Comment on above: Performed By: #### C BCA, CMP, 47602-8, 09216-8 #### [facility] ([id number]) [address] [place] [address] Hemoglobin (Bld) [Mass/Vol] 15.4 g/dL Normal 11.7-15.5 [facility] Comment on above: Performed By: #### C BCA, CMP, 91608-1, 59181-7 #### [facility] ([id number]) [address] [facility] [address] Lymphocytes (Bld) [#/Vol] 2.4 10*3/uL Normal 1.0-3.5 [facility] Comment on above: Performed By: #### C BCA, CMP, 58567-2, 30820-7 #### [facility] ([id number]) [address] [place] [address] Lymphocytes/100 WBC (Bld) 25.2 % Normal [facility] Comment on above: Performed By: #### C BCA, CMP, 25811-1, 64992-0 #### [facility] ([id number]) [address] [place] [address] MCH (RBC) [Entitic mass] 31.8 pg Normal 27-34 [facility] Comment on above: Performed By: #### C BCA, CMP, 27191-7, 58240-7 #### [facility] ([id number]) [address] [place] [address] MCHC (RBC) [Mass/Vol] 33.9 g/dL Normal 32-36 [facility] Comment on above: Performed By: #### C BCA, CMP, 87128-3, 13083-0 #### [facility] ([id number]) [address] [place] [address] MCV (RBC) [Entitic vol] 94 fL Normal 80-100 [facility] Comment on above: Performed By: #### C BCA, CMP, 72078-2, 21973-0 #### [facility] ([id number]) [address] [place] [address] Monocytes (Bld) [#/Vol] 0.7 10*3/uL Normal 0-0.9 [facility] Comment on above: Performed By: #### C BCA, CMP, 01839-1, 61430-9 #### [facility] ([id number]) [address] [place] [address] Monocytes/100 WBC (Bld) 7.4 % Normal [facility] Comment on above: Performed By: #### C BCA, CMP, 44016-1, 05446-8 #### [facility] ([id number]) [address] [place] [address] Neutrophils/100 WBC (Bld) 64.5 % Normal [facility] Comment on above: Performed By: #### C BCA, CMP, 01154-2, 24743-0 #### [facility] ([id number]) [address] [place] [address] Platelet mean volume (Bld) [Entitic vol] 9.4 fL Normal 7-12 [facility] Comment on above: Performed By: #### C BCA, CMP, 84139-3, 96042-6 #### [facility] ([id number]) [address] [place] [address] Platelets (Bld) [#/Vol] 186 10*3/uL Normal 150-450 [facility] Comment on above: Performed By: #### C BCA, CMP, 49587-6, 52498-4 #### [facility] ([id number]) [address] [place] [address] RBC COUNT 4.83 X10E12/L Normal 3.80-5.20 [facility] Comment on above: Performed By: #### C BCA, CMP, 78125-2, 15380-9 #### [facility] ([id number]) [address] [place] [address] WBC (Bld) [#/Vol] 9.5 10*3/uL Normal 4.0-11.0 [facility] Comment on above: Performed By: #### C BCA, CMP, 31526-8, 43238-6 #### [facility] ([id number]) [address] [place] [address] COMPREHENSIVE METABOLIC PANE Priyank 09-27-2023 Albumin [Mass/Vol] 4.2 g/dL Normal 3.2-5.3 [facility] Comment on above: Performed By: #### C BCA, CMP, 33975-6, 82838-0 #### [facility] ([id number]) [address] [place] [address] ALP [Catalytic activity/Vol] 37 U/L Low 39-130 [facility] Comment on above: Performed By: #### C BCA, CMP, 16070-9, 94387-8 #### [facility] ([id number]) [address] [place] [address] ALT [Catalytic activity/Vol] 50 U/L High 0-31 [facility] Comment on above: Performed By: #### C BCA, CMP, 63635-8, 83156-2 #### [facility] ([id number]) [address] [place] [address] Anion gap [Moles/Vol] 10 mmol/L Normal 5-15 [facility] Comment on above: Performed By: #### C BCA, CMP, 87577-2, 00741-3 #### [facility] ([id number]) [address] [place] [address] AST [Catalytic activity/Vol] 41 U/L Normal 0-41 [facility] Comment on above: Performed By: #### C BCA, CMP, 90482-4, 22706-5 #### [facility] ([id number]) [address] [place] [address] Bilirubin [Mass/Vol] 1.4 mg/dL High 0.3-1.2 [facility] Comment on above: Performed By: #### C BCA, CMP, 89446-2, 14989-1 #### [facility] ([id number]) [address] [place] [address] Calcium [Mass/Vol] 9.1 mg/dL Normal 8.5-10.5 [facility] Comment on above: Performed By: #### C BCA, CMP, 40460-4, 09560-2 #### [facility] ([id number]) [address] [place] [address] Chloride [Moles/Vol] 103 mmol/L Normal 98-109 [facility] Comment on above: Performed By: #### C BCA, CMP, 93987-9, 56855-9 #### [facility] ([id number]) [address] [place] [address] CO2 [Moles/Vol] 23 mmol/L Normal 22-32 [facility] Comment on above: Performed By: #### C BCA, CMP, 90394-3, 72738-1 #### [facility] ([id number]) [address] [place] [address] Creatinine [Mass/Vol] 0.99 mg/dL Normal 0.40-1.00 [facility] Comment on above: Result Comment: METH OD TRACEABLE TO IDMS STANDARD Performed By: #### C NO CMP, 21318-8, 96214-8 #### [facility] ([id number]) [address] [place] [address] GFR/1.73 sq M.predicted among non-blacks MDRD (S/P/Bld) [Vol rate/Area] 70 mL/min/{1.73_m2} Normal >59 [facility] Comment on above: Result Comment: Reported eGFR is based on the CKD-EPI 1 equation that does not use a race coefficient. Performed By: #### C NO, CMP, 98118-0, 69252-5 #### [facility] ([id number]) [address] [place] [address] Glucose [Mass/Vol] 98 mg/dL Normal 65-99 [facility] Comment on above: Performed By: #### C BCA CMP, 50557-2, 51614-9 #### [facility] ([id number]) [address] [place] [address] Potassium [Moles/Vol] 3.4 mmol/L Low 3.5-5.0 [facility] Comment on above: Performed By: #### C BCA, CMP, 71059-4, 07238-9 #### [facility] ([id number]) [address] [place] [address] Protein [Mass/Vol] 7.5 g/dL Normal 6.0-8.0 [facility] Comment on above: Performed By: #### C BCA, CMP, 39927-5, 98666-0 #### [facility] ([id number]) [address] [place] [address] Sodium [Moles/Vol] 136 mmol/L Normal 134-146 [facility] Comment on above: Performed By: #### C NO CMP, 39008-5, 32750-7 #### [facility] ([id number]) [address] [place] [address] Urea nitrogen [Mass/Vol] 10 mg/dL Normal 5-23 [facility] Comment on above: Performed By: #### C NO, [facility], 28480-7, 00290-3 #### [facility] ([id number]) [address] [place] [address] Fibrin D-dimer DDU (PPP) [Ma ss/Vol]on 09-27-2023 D DIMER <150 Normal <255 [facility] Comment on above: Result Comment: Results <255 ng/mL DDU: The presence of a VTE can safely be excluded with a negative D-Dimer result and Wells score. A negative result doesn't exclude the possibility of DIC. The test be repeated along with other diagnostic tests if the patient's symptoms persist or worsen. [email or web address] Performed By: #### C NO, [facility], 37733-5, 40522-1 #### [facility] ([id number]) [address] [place] [address] SARS/FLU A+B/RSV by NAAT/Mol ecularon 09-27-2023 SARS/FLU [...] operators who are performing tests using either Quartics DX or Vineloop systems and is limited to laboratories that [...] repeat. Fact Sheet for Healthcare Providers: https://www.fda.gov/me nanci/217341/download Fact Sheet for Patients: https://www.fda.gov/me nanci/306103/download Normal [facility] Comment on above: Performed By: #### C OVFLR #### [facility] ([id number]) [address] [place] [address] TROPONIN Ion 09-27-2023 Troponin I.cardiac [Mass/Vol] ng/mL Normal 0.00-0.04 [facility] Comment on above: Performed By: #### C BCA, CMP, 46099-9, 33618-9 #### [facility] ([id number]) [address] [place] [address] URINE CULTUREon 09-27-2023 Bacteria identified Cx Nom (U) CULTURE RESULTS <10,000 ORGANISMS/ML NORMAL URO GENITAL JIMMY Normal [facility] Comment on above: Performed By: #### 6 30-4 #### [facility] ([id number]) [address] [place] [address], [address] [place] [address] URN MACROSCOPIC NURon 2023 BILIRUBIN GALLO Negative Normal NEG [facility] Comment on above: Performed By: #### N UM #### [facility] ([id number]) [address] [place] [address] BLOOD/HGB GALLO Negative Normal NEG [facility] Comment on above: Performed By: #### N UM #### [facility] ([id number]) [address] [place] [address] GLUCOSE GALLO Negative Normal NEG [facility] Comment on above: Performed By: #### N UM #### [facility] ([id number]) [address] [place] [address] KETONES GALLO Negative Normal NEG [facility] Comment on above: Performed By: #### N UM #### [facility] ([id number]) [address] [place] [address] LEUKOCYTE ESTERASE GALLO Negative Normal NEG [facility] Comment on above: Performed By: #### N UM #### [facility] ([id number]) [address] [place] [address] NITRITE GALLO Positive Abnormal NEG [facility] Comment on above: Performed By: #### N UM #### [facility] ([id number]) [address] [place] [address] PH GALLO 7.0 Normal 5.0-8.5 [facility] Comment on above: Performed By: #### N UM #### [facility] ([id number]) [address] [place] [address] PROTEIN GALLO Negative Normal NEG [facility] Comment on above: Performed By: #### N UM #### [facility] ([id number]) [address] [place] [address] SPECIFIC GRAVITY GALLO 1.020 Normal 1.003-1.035 [facility] Comment on above: Performed By: #### N UM #### [facility] ([id number]) [address] [place] [address] UROBILINOGEN GALLO 0.2 eu/dL Normal <1.1 [facility] Comment on above: Performed By: #### N UM #### [facility] ([id number]) [address] [place] [address] Urine collection deviceon ER EXTRA URINES ER EXTRA URINE ORDER IN PROCESS Normal [facility] Comment on above: Performed By: #### 8 0334-6 #### [facility] ([id number]) [address] [place] [address] XR CHEST 1 VWon 09-27-2023 XR CHEST 1 VW XR CHEST 1 VW XR CHEST 1 VW CLINICAL INFORMATION: Shortness of breath. COMPARISON: 03/25/23. IMPRESSION: * No acute cardiopulmonary disease. Finalized by Manas Biggs MD on 09/27/2023 3:[address] [facility] STACIAN Telephone (HYUN) LYNETTE HAIRSTON ([id number]) 1975 F Date Time Provider Department 09/22/23 NOEMI PHAM During your visit today, we recorded the following information about you: Abby Shaw 09/22/2023 8:52 AM Signed Patient is calling today to request her MRI of the Lumbar spine be printed and signed and faxed over to [facility] at: [phone]. Please call and advise when this is done so she can get this scheduled. Patient has been identified by name and birthdate. Duration of symptoms: N/A Person calling: self Call patient at: at home [phone] (home) [phone] (cell) Was an appointment scheduled: No Closing statement: Results or non-symptom based questions: Thank you for calling [facility], your call will be returned within the next business day. Abby Castaneda Pss BuiSergenaEVE 09/22/2023 12:11 PM Signed Printed and placed on Dr. Pham's desk for signature. Brianda Palomares LPN 09/22/2023 12:58 PM Signed Received back with signature from Dr. Pham and faxed to [phone] per Patients request. Allergies As of Date: 09/22/2023 Noted Allergy Reaction MELOXICAM 11/23/2016 4 - Hives Comments: METHOTREXATE 12/25/2014 8 - GI Upset Date Reviewed: 06/24/2023 Reviewed by: Ty Frye MA - Fully Assessed Reason for Visit: Orders [681] Prescriptions as of 09/22/2023 - Etanercept (ENBREL) 50 mg/mL (1 mL) [...] once daily. Problem List As Of Date 09/22/2023 Noted Resolved Obesity, Class I, BMI 30-34.9 [...] skin changes [R23.9] 01/04/2023 Encounter Status:Closed by INOCENCIA BUI on 09/22/23 [facility] 09-21-2023 STACIAN Telephone (RHEUAV) LYNETTE HAIRSTON ([id number]) 1975 F Date Time Provider Department 09/21/23 NOEMI PHAM During your visit today, we recorded the following information about you: DimitriBrianda LPN 09/21/2023 12:09 PM Signed Received fax from [facility]. X-ray results XR lumbar spine. One copy given to Dr. Pham and one copy sent to scanning Allergies As of Date: 09/21/2023 Noted Allergy Reaction MELOXICAM 11/23/2016 4 - Hives Comments: METHOTREXATE 12/25/2014 8 - GI Upset Date Reviewed: 06/24/2023 Reviewed by: Ty Frye MA - Fully Assessed Reason for Visit: Results [95] Cmt: X-ray results XR lumbar spine Prescriptions as of 09/21/2023 - Etanercept (ENBREL) 50 mg/mL (1 mL) [...] once daily. Problem List As Of Date 09/21/2023 Noted Resolved Obesity, Class I, BMI 30-34.9 [...] 01/04/2023 Encounter Status:Closed by BRIANDA PALOMARES on 09/21/23 [facility] 09-19-2023 NAVEED Telephone (Parrut) LYNETTE HAIRSTON Deshaun ([id number]) 1975 F Date Time Provider Department 09/19/23 NOEMI PHAM During your visit today, we recorded the following information about you: Gris Fajardo, RN 09/19/2023 1:40 PM Signed Patient called. Right lower back, hip and [...] for any orders to be faxed to [facility] Noemi Pham MD 09/19/2023 2:05 PM Signed Yes I can order xray of hip and low back. Which hip is it? MD Chepe Lopez Laura, MA 09/19/2023 4:40 PM Signed Called and spoke with pt. She states it is the R-Hip. She needs us to fax orders to [facility] [phone]. Zayra Sarabia 09/20/2023 9:03 AM Signed Patient called to check on status regarding fax. Also requested the order to be faxed to [phone]. Please call patient once order is faxed. Inocencia Bui LPN 09/20/2023 9:09 AM Signed Faxed x-ray orders to both fax numbers as requested by patient. Faxed via [employer]. Allergies As of Date: 09/19/2023 Noted Allergy Reaction MELOXICAM 11/23/2016 4 - Hives Comments: METHOTREXATE 12/25/2014 8 - GI Upset Date Reviewed: 06/24/2023 Reviewed by: Ty Frye MA - Fully Assessed Reason for Visit: Pain [78] Primary Visit Diagnosis:Chronic bilateral low back pain without sciatica [M54.50, G89.29] Order(s):XR LUMBAR GENERAL 3V AP/LAT/L5-S1 [[id number]] Order #: [id number] FUTURE Prescriptions as of 09/20/2023 - Etanercept (ENBREL) 50 mg/mL (1 mL) [...] once daily. Problem List As Of Date 09/19/2023 Noted Resolved Obesity, Class I, BMI 30-34.9 [...] [M25.50] 01/04/2023 Recent skin changes [R23.9] 01/04/2023 Letter Text Encounter Status:Closed by INOCENCIA BUI on 09/20/23 [facility] POCT EKGon 09-02-2023 [facility] ALDOLASE BLDon 06-24-2023 Aldolase [Catalytic activity/Vol] 11.2 mU/mL High 1.5 - 8.1 U/L [facility] Aldolase [Catalytic activity/Vol] 11.2 mU/mL High 1.5-8.1 [facility] Comment on above: Order Comment: Speci men Type: BLOOD SPECIMEN Ordering Facility: [facility] Address: [address] [place] [address] Result Comment: This test was developed and its performance characteristics determined by [facility]'s Lele Bouch[facility] [place] ([facility]). It has not been cleared or approved by the FDA. [facility] is regulated under CLIA as qualified to perform high-complexity testing. This test is used for clinical purposes. It should not be regarded as investigational or for research. Performed By: #### 1 761-6 #### [facility] CLIA [id number] [address] [facility] [place] [address] [place] C-REACTIVE PROTEIN (CRP)on 08-25-2022 CRP [Mass/Vol] 0.6 mg/dL <0.9 mg/dL [facility] CBC panel Auto (Bld)on 06-24 Erythrocyte distribution width (RBC) [Ratio] 11.9 % Normal 11.5-15.0 [facility] Comment on above: Order Comment: Speci men Type: BLOOD SPECIMEN Ordering Facility: [facility] Address: [address] [place] [address] Performed By: #### 5 8410-2 #### [facility] CLIA [id number] [address] [place] [address] [facility] Hematocrit (d) [Volume fraction] 45.7 % Normal 36.0-46.0 [facility] Comment on above: Order Comment: Speci men Type: BLOOD SPECIMEN Ordering Facility: [facility] Address: [address] [place] [address] Performed By: #### 5 8410-2 #### [facility] CLIA [id number] [place] [address] [place] Hemoglobin (Bld) [Mass/Vol] 15.5 g/dL Normal 11.5-15.5 [facility] Comment on above: Order Comment: Speci men Type: BLOOD SPECIMEN Ordering Facility: [facility] Address: [address] [place] [address] Performed By: #### 5 8410-2 #### [facility] CLIA [id number] [address] [place] [address] [place] MCH (RBC) [Entitic mass] 31.6 pg Normal 26.0-34.0 [facility] Comment on above: Order Comment: Speci men Type: BLOOD SPECIMEN Ordering Facility: [facility] Address: [address] [place] [address] Performed By: #### 5 8410-2 #### [facility] [place] [id number] [address] [place] [address] [place] MCHC (RBC) [Mass/Vol] 33.9 g/dL Normal 30.5-36.0 [facility] Comment on above: Order Comment: Speci men Type: BLOOD SPECIMEN Ordering Facility: [facility] Address: [facility] [place] [address] Performed By: #### 5 8410-2 #### [facility] IA [id number] [address] [place] [address] [place] MCV (RBC) [Entitic vol] 93.1 fL Normal 80.0-100.0 [facility] Comment on above: Order Comment: Speci men Type: BLOOD SPECIMEN Ordering Facility: [facility] Address: [address] [place] [address] Performed By: #### 5 8410-2 #### [facility] IA [id number] [address] [place] [address] [place] Nucleated RBC (Bld) [#/Vol] 10*3/uL Normal <0.01 [facility] Comment on above: Order Comment: Speci men Type: BLOOD SPECIMEN Ordering Facility: [facility] Address: [address] [place] [address] Performed By: #### 5 8410-2 #### [facility] IA [id number] [address] [place] [address] [place] Platelet mean volume (Bld) [Entitic vol] 10.6 fL Normal 9.0-12.7 [facility] Comment on above: Order Comment: Speci men Type: BLOOD SPECIMEN Ordering Facility: [facility] Address: [address] [place] [address] Performed By: #### 5 8410-2 #### [facility] IA [id number] [address] [place] [address] [place] Platelets (Bld) [#/Vol] 192 10*3/uL Normal 150-400 [facility] Comment on above: Order Comment: Speci men Type: BLOOD SPECIMEN Ordering Facility: [facility] Address: [address] [place] [address] Performed By: #### 5 8410-2 #### [facility] IA [id number] [address] [place] [address] [place] RBC (Bld) [#/Vol] 4.91 10*6/uL Normal 3.90-5.20 [facility] Comment on above: Order Comment: Speci men Type: BLOOD SPECIMEN Ordering Facility: [facility] Address: [address] [place] [id number] Performed By: #### 5 8410-2 #### [facility] CLIA [id number] [address] [place] [address] [place] WBC (Bld) [#/Vol] 8.95 10*3/uL Normal 3.70-11.00 [facility] Comment on above: Order Comment: Speci men Type: BLOOD SPECIMEN Ordering Facility: [facility] Address: [address] [place] [id number] Performed By: #### 5 8410-2 #### [facility] CLIA [id number] [address] [place] [address] [place] Erythrocyte distribution width (RBC) [...] 8.95 10*3/uL 3.70 - 11. 00 k/uL [facility] CK CREATINE KINASEon 023 CK [Catalytic activity/Vol] 119 U/L 42 - 196 U/L [facility] CK SerPl-cCncon 06-24-2023 CK [Catalytic activity/Vol] 119 U/L Normal 42-196 [facility] Comment on above: Order Comment: Speci men Type: BLOOD SPECIMEN Ordering Facility: [facility] Address: [facility] [place] [address] Performed By: #### 2 157-6, 1987-11, 71092-5 #### [facility] CLIA [id number] [address] [place] [address] [facility] CNOVon 06-24-2023 CNOV Office Visit (HYUN ) LYNETTE HAIRSTON ([id number]) 1975 F Date Time Provider Department 06/24/23 [...] bursa injection Informed Consent Consent Obtained: Verbal [place] Protocol A moment to CARE was completed. [...] myopthay and (more content not included)... Normal [facility] CRP Navil-Adalid 06-24-2023 CRP [Mass/Vol] 0.6 mg/dL Normal <0.9 [facility] Comment on above: Order Comment: Speci men Type: BLOOD SPECIMEN Ordering Facility: [facility] Address: [address] [place] [address] [place] [address] Performed By: #### 2 157-6, #### [facility] CLIA [id number] [address] [facility] [place] [address] [place] Comprehensive metabolic 2000 panelon 06-24-2023 Albumin [Mass/Vol] 4.5 g/dL Normal 3.9-4.9 [facility] Comment on above: Order Comment: Speci men Type: BLOOD SPECIMEN Ordering Facility: [facility] Address: [address] [place] [address] Performed By: #### 2 157-6, #### [facility] CLIA [id number] [address] [place] [address] [place] ALP [Catalytic activity/Vol] 46 U/L Normal 34-123 [facility] Comment on above: Order Comment: Speci men Type: BLOOD SPECIMEN Ordering Facility: [facility] Address: [address] [place] [address] Performed By: #### 2 157-6, #### [facility] IA [id number] [address] [facility] [address] [place] ALT [Catalytic activity/Vol] 46 U/L High 7-38 [facility] Comment on above: Order Comment: Speci men Type: BLOOD SPECIMEN Ordering Facility: [facility] Address: [address] [place], [place] [address] Performed By: #### 2 157-6, #### [facility] CLIA [id number] [address] [facility] [address] [place] Anion gap [Moles/Vol] 8 mmol/L Low 9-18 [facility] Comment on above: Order Comment: Speci men Type: BLOOD SPECIMEN Ordering Facility: [facility] Address: [address] [place] [address] Performed By: #### 2 157-6, #### [facility] CLIA [id number] [address] [facility] [address] [place] AST [Catalytic activity/Vol] 39 U/L High 13-35 [facility] Comment on above: Order Comment: Speci men Type: BLOOD SPECIMEN Ordering Facility: [facility] Address: [address] [place] [address] Performed By: #### 2 157-6, 1987-11, #### [facility] CLIA [id number] [address] [place] [address] [place] Bilirubin [Mass/Vol] 1.2 mg/dL Normal 0.2-1.3 [facility] Comment on above: Order Comment: Speci men Type: BLOOD SPECIMEN Ordering Facility: [facility] Address: [address] [place] [address] Performed By: #### 2 157-6, 1987-11, #### [facility] CLIA [id number] [address] [place] [address] [place] Calcium [Mass/Vol] 9.5 mg/dL Normal 8.5-10.2 [facility] Comment on above: Order Comment: Speci men Type: BLOOD SPECIMEN Ordering Facility: [facility] Address: [address] [place] [address] Performed By: #### 2 157-6, #### [facility] CLIA [id number] [address] [place] [address] [place] Chloride [Moles/Vol] 105 mmol/L Normal 97-105 [facility] Comment on above: Order Comment: Speci men Type: BLOOD SPECIMEN Ordering Facility: [facility] Address: [address] [place] [address] Performed By: #### 2 157-6, 1987-11, #### [facility] CLIA [id number] [address] [place] [address] [place] CO2 [Moles/Vol] 27 mmol/L Normal 22-30 [facility] Comment on above: Order Comment: Speci men Type: BLOOD SPECIMEN Ordering Facility: [facility] Address: [address] [place] [address] Performed By: #### 2 157-6, 1988 #### [facility] CLIA [id number] [address] [facility] [address] [place] Creatinine [Mass/Vol] 1.10 mg/dL High 0.58-0.96 [facility] Comment on above: Order Comment: Mert del valle Type: BLOOD SPECIMEN Ordering Facility: [facility] Address: [address] [place] [address] Performed By: #### 2 157-6, #### [facility] CLIA [id number] [address] [facility] [address] [place] Creatinine and Glomerular filtration rate.predicted panel (S/P/Bld) 62 mL/min/1.73m??? Normal >=60 [facility] Comment on above: Order Comment: [facility] Type: BLOOD SPECIMEN Ordering Facility: [facility] Address: [address] [place] [address] Result Comment: Flores mated Glomerular Filtration Rate [...] GFR. Performed By: #### 2 157-6, #### [facility] CLIA [id number] [address] [facility] [facility] [place] [address] [place] Glucose [Mass/Vol] 94 mg/dL Normal 74-99 [facility] Comment on above: Order Comment: [facility] Type: BLOOD SPECIMEN Ordering Facility: [facility] Address: [address] [place] [address] Result Comment: The [place] Diabetes Association (ADA) provides guidance for cutoff [...] Standards of Medical Care in Diabetes 2016, [place] Diabetes Association. Diabetes Care. 2016.39(Suppl 1). Performed By: #### 2 157-, #### [facility] CLIA [id number] [address] [place] [address] [place] Potassium [Moles/Vol] 4.2 mmol/L Normal 3.7-5.1 [facility] Comment on above: Order Comment: Speci men Type: BLOOD SPECIMEN Ordering Facility: [facility] Address: [address] [place] [address] Performed By: #### 2 157, #### [facility] [place] [id number] [address] [place] [address] [place] Protein [Mass/Vol] 7.3 g/dL Normal 6.3-8.0 [facility] Comment on above: Order Comment: Speci men Type: BLOOD SPECIMEN Ordering Facility: [facility] Address: [address] [place] [address] Performed By: #### 2 157, #### [facility] [place] [id number] [place] [address] [place] Sodium [Moles/Vol] 140 mmol/L Normal 136-144 [facility] Comment on above: Order Comment: Speci men Type: BLOOD SPECIMEN Ordering Facility: [facility] Address: [address] [place], [place] [address] Performed By: #### 2 1576, #### [facility] CLIA [id number] [place] [address] [place] Urea nitrogen [Mass/Vol] 12 mg/dL Normal 7-21 [facility] Comment on above: Order Comment: Speci men Type: BLOOD SPECIMEN Ordering Facility: [facility] Address: [address] [place], [place] [address] [address] Performed By: #### 2 157-6, 1987-, 31242-5 #### [facility] CLIA [id number] [facility] [place], [place] [address] [place] [address] STATES OF [facility] Albumin [Mass/Vol] 4.5 g/dL 3.9 - 4.9 g/dL [facility] ALP [Catalytic activity/Vol] 46 U/L 34 - 123 U/L [facility] ALT [Catalytic activity/Vol] 46 U/L High 7 - 38 U/L [facility] Anion gap [Moles/Vol] 8 mmol/L Low 9 - 18 mmol/L [facility] AST [Catalytic activity/Vol] 39 U/L High 13 - 35 U/L [facility] Bilirubin [Mass/Vol] 1.2 mg/dL 0.2 - 1 .3 mg/dL [facility] Calcium [Mass/Vol] 9.5 mg/dL 8.5 - 10. 2 mg/dL [facility] Chloride [Moles/Vol] 105 mmol/L 97 - 10 5 mmol/L [facility] CO2 [Moles/Vol] 27 mmol/L 22 - 30 mmol/L [facility] Creatinine [Mass/Vol] 1.10 mg/dL High 0.58 - 0.96 mg/dL [facility] Estimated Glomerular Filtration Rate 62 mL/min/1.73m >=60 mL/min/1.73m [facility] Glucose [Mass/Vol] 94 mg/dL 74 - 99 mg/dL [facility] Potassium [Moles/Vol] 4.2 mmol/L 3.7 - 5.1 mmol/L [facility] Protein [Mass/Vol] 7.3 g/dL 6.3 - 8.0 g/dL [facility] Sodium [Moles/Vol] 140 mmol/L 136 - 144 mmol/L [facility] Urea nitrogen [Mass/Vol] 12 mg/dL 7 - 21 mg/dL [facility] ESR Westergren method (Bld) [Velocity]on 06-24-2023 ESR (Bld) [Velocity] 23 mm/h High 0 - 20 mm/hr Cl [facility] ESR (Bld) [Velocity] 23 mm/h High 0-20 [facility] Comment on above: Order Comment: Speci men Type: BLOOD SPECIMEN Ordering Facility: [facility] Address: [address], [place] [address] Performed By: #### 2 157-6, 1987-, 28736-4 #### [facility] CLIA [id number] [facility] [place] [address] [place] No Panel Informationon [...] DEGENERATIVE CHANGES AND LEVOSCOLIOSIS SIMILAR TO PRIOR. Hiv/Aids Care Nurse: PSCB Transcribe Date/Time: Jun 24 2023 1:12P Dictated by : BRADY FELDMAN MD This examination was interpreted and the report reviewed and electronically signed by: BRADY FELDMAN MD on Jun 24 2023 1:14PM EST [id number] Normal [facility] 05-12-2023 CNPN Telephone (Parrut) HAIRSTONLYNETTE Deshaun ([id number]) 1975 F Date Time Provider Department 05/12/23 NOEMI PHAM During your visit today, we recorded the following information about you: Minh Mosqueda 05/12/2023 1:20 PM Signed Ashwini from [employer] is calling Noemi Pham MD today to clarify medication. When they were filling the enbrel, it flagged that the patient has a thrombocytopenia diagnosis. They need to clarify that the provider is aware. They cannot send the medication until they get that clarification. [phone] Patient has been identified by name and birthdate. Duration of symptoms: N/A Person calling: pharmacy: [facility] Call patient at: on cell [phone] (home) [phone] (cell) Was an appointment scheduled: No Closing statement: Results or non-symptom based questions: Thank you for calling [facility], your call will be returned within the next business day. Minh Mosqueda Allison York OCCA 05/12/2023 1:29 PM Signed Faxed [employer], patient is no longer on medication Jonelle Flores Ma 05/19/2023 9:12 AM Signed Patient calling back. States she is on Enbrel. She takes it once a week and has not had it in about 2 weeks. She is starting to get pain. She is no longer on Plaquenil. Asking for the office to call [employer] to get this straightened out. She only had low platelets when she had covid. Please advise Inocencia Bui LPN 05/19/2023 9:58 AM Signed Order pended for Enbrel refill. Did call [employer] to verify medication is ok to refill. [...] Visit Type Date Time Department [facility] 06/24/2023 11:20 AM [facility] REJ Last Ophthalmology Check for Plaquenil [...] 05/19/2023 10:06 AM Signed Spoke with patient. [employer] had held medication due to dx of thrombocytopenia. I spoke with [employer] and informed them patient was cleared from [...] acting, (LOPR (more content not included)... Normal [facility] Miscellaneouson 03-24-2023 Send Out Report Normal [facility] Comment on above: Result Comment: PERF ORMED AT [facility] [address] [place] [address] (NOTE) Fat, Fecal Quantitative 72-Hour Collection (Includes Homogenization) [facility] test code 7275150 Fat, Fecal Quantitative 72-Hour 4.2 g/d (Ref Interval: 0.0-6.0) INTERPRETIVE INFORMATION: Fat, Fecal Quantitative 72-Hour Collection Access complete set of age- and/or gender-specific reference intervals for this test in the [facility] Test Directory (Melophone). This test was developed and its performance characteristics determined by [facility]. It has not been cleared or approved [...] g Performed By: #### C MIS #### [facility] [address] [place] [address] Oral Surgeon: Richie Alexis DO Miscellaneouson 03-22-2023 Test Name 72 Normal [facility] Comment on above: Performed By: #### C MIS #### [facility] [address] [place], [place] [id number] Oral Surgeon: Richie Alexis DO CNPNon 03-09-2023 CNPN Telephone ([employer]) LYNETTE HAIRSTON ([id number]) 1975 F Date Time Provider Department 03/09/23 [...] Status:Closed by JUD HESS [facility]PN [facility]09[facility]23 [facility]N Telephone ([employer]) LYNETTE HAIRSTON ([id number]) 1975 F Date Time Provider Department 01/28/23 [...] Encounter Status:Closed by BRIANDA PALOMARES on 01/31/23 [facility] 01-26-2023 STACIAN Telephone (HYUN) LYNETTE HAIRSTON ([id number]) 1975 F Date Time Provider Department 01/26/23 [...] 01/26/2023 11:13 AM Signed Message sent on [employer] regarding this . Noemi Pham MD Allergies [...] Status:Closed by NOEMI PHAM on 01/26/23 Normal [facility] ANURAG BY IFA WITH REFLEXon Nuclear Ab IF (S) [Titer] Negative Normal Negative [facility] Comment on above: Order Comment: Speci men Type: BLOOD SPECIMEN Ordering Facility: [facility] Address: [address] [place] [address] Result Comment: Anti -nuclear antibody test is used as an aid in diagnosis of systemic autoimmune diseases. Where positive and clinically warranted, follow-up using disease-specific testing is recommended. Low positive titers are not uncommon with advanced age, certain chronic infections, and malignancies among others. Test methodology: Indirect fluorescence immunoassay (IFA) using HEp-2 cells. Performed By: #### 1 761-6 #### [facility] CLIA [id number] [address] [facility] DESK [address] OF [place] Aldolase SerPl-cCncon 2022 Aldolase [Catalytic activity/Vol] 8.8 mU/mL High 1.5-8.1 [facility] Comment on above: Order Comment: [facility] Type: BLOOD SPECIMEN Ordering Facility: [facility] Address: [address] [place] [address] Result Comment: This test was developed and its performance characteristics determined by [facility] Path[facility] and Laboratory Medicine [place] (RTPL[facility]). It has not been cleared or approved by the FDA. -[facility] is regulated under CLIA as qualified to perform high-complexity testing. This test is used for clinical purposes. It should not be regarded as investigational or for research. Performed By: #### 1 761-6 #### [facility] CLIA [id number] [address] [place] [address] [place] CK SerPl-cCncon 01-14-2023 CK [Catalytic activity/Vol] 110 U/L Normal 42-196 [facility] Comment on above: Order Comment: [facility] [place] [facility] Type: BLOOD SPECIMEN Ordering Facility: [facility] Address: [address] [place] [address] Performed By: #### 1 761-6 #### [facility] CLIA [id number] [address] [place] [address] [place] CNOVon 01-14-2023 CNOV Office Visit (HYUN ) LYNETTE HAIRSTON ([id number]) 1975 F Date Time Provider Department 01/14/23 [...] [R21] Order(s):HISTONE IGG LAUREANO [SQHISTN] Order #: [id number] FUTURE ANURAG BY IFA WITH REFLEX [SQANAIFR] Order #: [id number] FUTURE ANURAG BLOOD [SQANAS] Order #: [id number] FUTURE ANTI LEVY ID [SQENAID] Order #: [id number] FUTURE SED RATE WESTERGREN [SQWSR] Order #: [id number] FUTURE C-REACTIVE PROTEIN (CRP) [SQCRP] Order #: [id number] FUTURE RHEUMATOID FACTOR BL [SQRF] Order #: [id number] FUTURE CK CREATINE KINASE [SQCK] Order #: [id number] FUTURE ALDOLASE BLD [SQALD] Order #: [id number] FUTURE [] methylPREDN (more content not included)... Normal [facility] CRP SerPl-mCncon 01-14-2023 CRP [Mass/Vol] 0.6 mg/dL Normal <0.9 [facility] Comment on above: Order Comment: Speci men Type: BLOOD SPECIMEN Ordering Facility: [facility] Address: [address] [place] [address] Performed By: #### 2 157-6, 1987-, 35131-6 #### [facility] CLIA [id number] [address] [place] [address] [place] ESR Westergren method (Bld) [Velocity]on 01-14-2023 ESR (Bld) [Velocity] 16 mm/h Normal 0-20 [facility] Comment on above: Order Comment: Speci men Type: BLOOD SPECIMEN Ordering Facility: [facility] Address: [address] [place] [address] Performed By: #### 1 761-6 #### [facility] CLIA [id number] [address] [facility] [address] [place] HISTONE IGG ABYon 01-14-2023 HISTONE 0.1 Units Normal <1.0 [facility] Comment on above: Order Comment: Speci men Type: BLOOD SPECIMEN Ordering Facility: [facility] Address: [address] [place] [address] Performed By: #### 1 761-6 #### [facility] CLIA [id number] [address] [place] [address] [place] HISTONE IGG QUALITATIVE Negative Normal [facility] Comment on above: Order Comment: [facility] Type: BLOOD SPECIMEN Ordering Facility: [facility] Address: [address] [place] [address] Result Comment: Anti -histone IgG antibody test [...] required. Performed By: #### 1 761-6 #### [facility] IA [id number] [address] [place] [address] [place] Nuclear Ab IA Ql (S)on 01-14 ANURAG SCR QUAL Negative Normal Negative [facility] Comment on above: Order Comment: [place] Type: BLOOD SPECIMEN Ordering Facility: [facility] Address: [address] [place] [address] Result Comment: The qualitative antinuclear antibody screen test performed using the following antigens: dsDNA, Chromatin, Ribosomal P, SS-A 60, SS-A 52, SS-B, Sm, SmRNP, BOILER INSPECTOR A, BOILER INSPECTOR 68, Scl-70, Odalis-1, and Centromere B. Methodology: Multiplex flow immunoassay. Performed By: #### 1 761-6 #### [facility] IA [id number] [address] [place] [address] [place] Rheumatoid fact SerPl-aCncon 01-14-2023 Rheumatoid factor Qn [IU]/mL High <16 [facility] Comment on above: Order Comment: [facility] Type: BLOOD SPECIMEN Ordering Facility: [facility] Address: [address] [place] [address] Performed By: #### 1 1572-5 #### [facility] CLIA [id number] [address] [place] [address] [place] CNOVon 12-24-2022 CNOV Office Visit (NENMMN ) LYNETTE HAIRSTON ([id number]) 1975 F Date Time Provider Department 12/24/22 1:00 PM LIZ CONNOLLY During your visit today, we recorded the following information about you: Pulse Blood pressure 106/minute 121/84 Liz Connolly MD 01/04/2023 10:43 AM Signed S[facility] Note- Established patient Provider: Liz Connolly MD [...] that she has been following with her patient resource specialist with every 6 monthly appointments to monitor [...] current facility-administ (more content not included)... Normal [facility] EMG(NEURO/NI)on 12-24-2022 [facility] Surgical Pathologyon 023 Surgical Pathology (NOTE) Path Number: [id number] -- Diagnosis -- Colon, random biopsies: Normal colonic mucosa. Deshaun Mcneil Electronically Signed Out rdd/12/21/2022 Clinical Information Pre-Op Diagnosis: ENCOPRESIS WITHOUT CONSTIPATION AND OVERFLOW INCONTINENCE Operative Findings: RANDOM COLON BIOPSIES TO CHECK FOR MICROSCOPIC COLITIS Operation Performed: COLONOSCOPY WITH BIOPSY cd Source of Specimen A: RANDOM COLON BXS TO CHECK FOR MICROSCOPIC COLITIS Gross Description LYNETTE YOVANNY RANDOM COLON BIOPSIES Received in formalin are [...] is no dysplasia or malignancy. Processing Lab: [facility] [address] [place] [address] Interpretation Performed at [facility] [address] [place], [place] SURGICAL PATHOLOGY CONSULTATION Patient Name: HAIRSTONLYNETTE. [facility] Rec: [id number] [facility] ANATOMIC PATHOLOGY [address] [place] [address] Normal [facility] Comment on above: Performed By: #### P PPVS #### [address] [id number] Oral Surgeon: MD Mary Velazquez 12-01-2022 [facility] Telephone ([place]) LYNETTE HAIRSTON ([id number]) 1975 F Date Time Provider Department 12/01/22 NOEMI PHAM [employer] During your visit today, we recorded the [...] Fully Assessed Reason for Visit: Insurance Authorization [[id number]] Cmt: Enbrel Prescriptions as of 12/01/2022 - [...] of hypothyroidism [Z86.39] 03/25/2021 Encounter Status:Closed by BUIINOCENCIA LPN on 12/01/22 Normal [facility] Aldolase SerPl-cCncon 2022 Aldolase [Catalytic activity/Vol] 9.9 mU/mL High 1.5-8.1 [facility] Comment on above: Order Comment: Speci ivon Type: BLOOD SPECIMEN Ordering Facility: [facility] Address: [address] [place] [address] Result Comment: This test was developed and its performance characteristics determined by [facility] Pathology and Laboratory Medicine [place] (RTPL[facility]). It has not been cleared or approved by the FDA. [facility] is regulated under CLIA as qualified to perform high-complexity testing. This test is used for clinical purposes. It should not be regarded as investigational or for research. Performed By: #### 1 761-6 #### [facility] CLIA [id number] [address] [place] [address] [place] C-REACTIVE PROTEIN (CRP)on 0 08-11-2022 CRP [Mass/Vol] 0.8 mg/dL <0.9 mg/dL [facility] CBC panel Auto (Bld)on 08-11 Erythrocyte distribution width (RBC) [Ratio] 11.7 % Normal 11.5-15.0 [facility] Comment on above: Order Comment: Speci ivon Type: BLOOD SPECIMEN Ordering Facility: [facility] Address: [address] [place] [address] Performed By: #### 1 761-6 #### [facility] CLIA [id number] [address] [place] [address] [place] Hematocrit (Bld) [Volume fraction] 44.1 % Normal 36.0-46.0 [facility] Comment on above: Order Comment: Speci men Type: BLOOD SPECIMEN Ordering Facility: [facility] Address: [address] [place] [address] Performed By: #### 1 761-6 #### [facility] CLIA [id number] [address] [place] [address] [place] Hemoglobin (Bld) [Mass/Vol] 15.2 g/dL Normal 11.5-15.5 [facility] Comment on above: Order Comment: Speci men Type: BLOOD SPECIMEN Ordering Facility: [facility] Address: [address] [place] [address] Performed By: #### 1 761-6 #### [facility] CLIA [id number] [address] [place] [address] OF [place] MCH (RBC) [Entitic mass] 31.7 pg Normal 26.0-34.0 [facility] Comment on above: Order Comment: Speci men Type: BLOOD SPECIMEN Ordering Facility: [facility] Address: [address] [place] [address] Performed By: #### 1 761-6 #### [facility] CLIA [id number] [address] [place] [address] [place] MCHC (RBC) [Mass/Vol] 34.5 g/dL Normal 30.5-36.0 [facility] Comment on above: Order Comment: Speci men Type: BLOOD SPECIMEN Ordering Facility: [facility] Address: [address] [place] [address] Performed By: #### 1 761-6 #### [facility] CLIA [id number] [address] [place] [address] [place] MCV (RBC) [Entitic vol] 92.1 fL Normal 80.0-100.0 [facility] Comment on above: Order Comment: Speci men Type: BLOOD SPECIMEN Ordering Facility: [facility] Address: [address] [place], [place] [address] Performed By: #### 1 761-6 #### [facility] CLIA [id number] [address] [place] [address] OF [place] Nucleated RBC (Bld) [#/Vol] 10*3/uL Normal <0.01 [facility] Comment on above: Order Comment: Speci men Type: BLOOD SPECIMEN Ordering Facility: [facility] Address: [address] Performed By: #### 1 761-6 #### [facility] CLIA [id number] [address] [place] [address] [place] Platelet mean volume (Bld) [Entitic vol] 11.0 fL Normal 9.0-12.7 [facility] Comment on above: Order Comment: Speci men Type: BLOOD SPECIMEN Ordering Facility: [facility] Address: [address] Performed By: #### 1 761-6 #### [facility] CLIA [id number] [address] [place] [address] [place] Platelets (Bld) [#/Vol] 205 10*3/uL Normal 150-400 [facility] Comment on above: Order Comment: Speci men Type: BLOOD SPECIMEN Ordering Facility: [facility] Address: [address] Performed By: #### 1 761-6 #### [facility] CLIA [id number] [address] [place] [address] [place] RBC (Bld) [#/Vol] 4.79 10*6/uL Normal 3.90-5.20 [facility] Comment on above: Order Comment: Speci men Type: BLOOD SPECIMEN Ordering Facility: [facility] Address: [address] Performed By: #### 1 761-6 #### [facility] CLIA [id number] [address] [place] [address] [place] WBC (Bld) [#/Vol] 9.49 10*3/uL Normal 3.70-11.00 [facility] Comment on above: Order Comment: Speci men Type: BLOOD SPECIMEN Ordering Facility: [facility] Address: [address] [place], [place] [address] Performed By: #### 1 761-6 #### [facility] CLIA [id number] [address] STATES [place] Erythrocyte distribution width (RBC) [...] CK [Catalytic activity/Vol] 115 U/L Normal 42-196 [facility] Comment on above: Order Comment: Speci men Type: BLOOD SPECIMEN Ordering Facility: [facility] Address: [address] [place] [address] Performed By: #### 1 761-6 #### [facility] CLIA [id number] [address] STATES OF [place] CRP SerPl-mCncon 08-11-2022 CRP [Mass/Vol] 0.8 mg/dL Normal <0.9 [facility] Comment on above: Order Comment: Speci men Type: BLOOD SPECIMEN Ordering Facility: [facility] Address: [address] Performed By: #### 2 4323-02, 1987-11 #### [facility] CLIA [id number] [address] [place] [address] [place] [facility] Comprehensive metabolic 2000 panelon 08-11-2022 Albumin [Mass/Vol] 4.6 g/dL Normal 3.9-4.9 [facility] Comment on above: Order Comment: Speci men Type: BLOOD SPECIMEN Ordering Facility: [facility] Address: [address] [place] [address] Performed By: #### 2 4323-02, 1987-11 #### [facility] CLIA [id number] [address] [place] [address] [place] ALP [Catalytic activity/Vol] 44 U/L Normal 34-123 [facility] Comment on above: Order Comment: Speci men Type: BLOOD SPECIMEN Ordering Facility: [facility] Address: [address] [place] [address] Performed By: #### 2 4323-02, 1987-11 #### [facility] [place] [id number] [address] [place] [address] [place] ALT [Catalytic activity/Vol] 32 U/L Normal 7-38 [facility] Comment on above: Order Comment: Speci men Type: BLOOD SPECIMEN Ordering Facility: [facility] Address: [address] Performed By: #### 2 4323-02, 1987-11 #### [facility] CLIA [id number] [address] [place] [address] [place] Anion gap [Moles/Vol] 9 mmol/L Normal 9-18 [facility] Comment on above: Order Comment: Speci men Type: BLOOD SPECIMEN Ordering Facility: [facility] Address: [address] Performed By: #### 2 4323-02, 1987-11 #### [facility] CLIA [id number] [address] [place] [address] [place] AST [Catalytic activity/Vol] 26 U/L Normal 13-35 [facility] Comment on above: Order Comment: Speci men Type: BLOOD SPECIMEN Ordering Facility: [facility] Address: [address] [place], [place] [address] Performed By: #### 2 4323-02, 1987-11 #### [facility] CLIA [id number] [address] [place] [address] [place] Bilirubin [Mass/Vol] 0.9 mg/dL Normal 0.2-1.3 [facility] Comment on above: Order Comment: Speci men Type: BLOOD SPECIMEN Ordering Facility: [facility] Address: [address] [place], [place] [address] Performed By: #### 2 4323-02, 1987-11 #### [facility] IA [id number] [address] [place] [address] [place] Calcium [Mass/Vol] 10.5 mg/dL High 8.5-10.2 [facility] Comment on above: Order Comment: Speci men Type: BLOOD SPECIMEN Ordering Facility: [facility] Address: [address] [place], [place] [address] Performed By: #### 2 4323-02, 1987-11 #### [facility] IA [id number] [address] [place] [address] [place] Chloride [Moles/Vol] 102 mmol/L Normal 97-105 [facility] Comment on above: Order Comment: Speci men Type: BLOOD SPECIMEN Ordering Facility: [facility] Address: [address] [place] [address] Performed By: #### 2 4323-02, 1987-11 #### [facility] IA [id number] [address] [place] [address] [place] CO2 [Moles/Vol] 29 mmol/L Normal 22-30 [facility] Comment on above: Order Comment: Mert del valle Type: BLOOD SPECIMEN Ordering Facility: [facility] Address: [address] [place] [address] Performed By: #### 2 43209-29, 1987-11 #### [facility] CLIA [id number] [address] [place] [address] [place] Creatinine [Mass/Vol] 0.93 mg/dL Normal 0.58-0.96 [facility] Comment on above: Order Comment: Mert men Type: BLOOD SPECIMEN Ordering Facility: [facility] Address: [address] [place] [phone] Performed By: #### 2 43209-29, 1987-11 #### [facility] CLIA [id number] [address] [place] [address] [place] ESTIMATED GLOMERULAR FILTRATION RATE 76 mL/min/1.73m??? Normal >=60 [facility] Comment on above: Order Comment: Mert del valle Type: BLOOD SPECIMEN Ordering Facility: [facility] Address: [address] [place], [place] [phone] Result Comment: Flores mated Glomerular Filtration Rate [...] reflect actual GFR. Performed By: #### 2 4323, 1987-11 #### [facility] CLIA [id number] [address] [place] [address] [place] Glucose [Mass/Vol] 97 mg/dL Normal 74-99 [facility] Comment on above: Order Comment: Mert ivon Type: BLOOD SPECIMEN Ordering Facility: [facility] Address: [address] [place], [place] [phone] Result Comment: The [place] Diabetes Association (ADA) provides guidance for cutoff [...] Standards of Medical Care in Diabetes 2016, [place] [employer]. Diabetes Care. 2016.39(Suppl 1). Performed By: #### 2 4323-02, 1987-11 #### [facility] CLIA [id number] [address] [place] [address] [place] Potassium [Moles/Vol] 4.7 mmol/L Normal 3.7-5.1 [facility] Comment on above: Order Comment: Speci men Type: BLOOD SPECIMEN Ordering Facility: [facility] Address: [address] [place] [address] Performed By: #### 2 4323-02, 1987-11 #### [facility] IA [id number] [address] [place] [address] [place] Protein [Mass/Vol] 7.6 g/dL Normal 6.3-8.0 [facility] Comment on above: Order Comment: Lynni men Type: BLOOD SPECIMEN Ordering Facility: [facility] Address: [address] [place] [address] Performed By: #### 2 4323-02, 1987-11 #### [facility] IA [id number] [address] [place] [address] [place] Sodium [Moles/Vol] 140 mmol/L Normal 136-144 [facility] Comment on above: Order Comment: Speci men Type: BLOOD SPECIMEN Ordering Facility: [facility] Address: [address] [place] [address] Performed By: #### 2 4323-02, 1987-11 #### [facility] IA [id number] [address] [place] [address] [place] Urea nitrogen [Mass/Vol] 15 mg/dL Normal 7-21 [facility] Comment on above: Order Comment: Speci men Type: BLOOD SPECIMEN Ordering Facility: [facility] Address: [place] [address] Performed By: #### 2 4323-8, 1987-11 #### [facility] CLIA [id number] [address] [facility] [place] [address] [place] [facility] Albumin [Mass/Vol] 4.6 g/dL 3.9 - 4.9 g/dL [facility] ALP [Catalytic activity/Vol] 44 U/L 34 - 123 U/L [facility] ALT [Catalytic activity/Vol] 32 U/L 7 - 38 U/L [facility] Anion gap [Moles/Vol] 9 mmol/L 9 - 18 mmol/L [facility] AST [Catalytic activity/Vol] 26 U/L 13 - 35 U/L [facility] Bilirubin [Mass/Vol] 0.9 mg/dL 0.2 - 1 .3 mg/dL [facility] Calcium [Mass/Vol] 10.5 mg/dL High 8.5 - 10. 2 mg/dL [facility] Chloride [Moles/Vol] 102 mmol/L 97 - 10 5 mmol/L [facility] CO2 [Moles/Vol] 29 mmol/L 22 - 30 mmol/L [facility] Creatinine [Mass/Vol] 0.93 mg/dL 0.58 - 0.96 mg/dL [facility] Estimated Glomerular Filtration Rate 76 mL/min/1.73m >=60 mL/min/1.73m [facility] Glucose [Mass/Vol] 97 mg/dL 74 - 99 mg/dL [facility] Potassium [Moles/Vol] 4.7 mmol/L 3.7 - 5.1 mmol/L [facility] Protein [Mass/Vol] 7.6 g/dL 6.3 - 8.0 g/dL [facility] Sodium [Moles/Vol] 140 mmol/L 136 - 144 mmol/L [facility] Urea nitrogen [Mass/Vol] 15 mg/dL 7 - 21 mg/dL [facility] ESR Westergren method (Bld) [Velocity]on 08-11-2022 ESR (Bld) [Velocity] 23 mm/h High 0 - 20 mm/hr [facility] ESR (Bld) [Velocity] 23 mm/h High 0-20 [facility] Comment on above: Order Comment: Speci men Type: BLOOD SPECIMEN Ordering Facility: [facility] Address: [address] [place] [address] Performed By: #### 1 761-6 #### [facility] CLIA [id number] [address] [facility] [address] [place] [id number] [place] [facility] XR elbow RT 2Von 07-30-2022 XR elbow RT 2V [facility] [address] [place] [address] XRay Report Signed Patient: Lynette Hairtson MR#: [id number] 46 : 1975 Acct:[id number] Age/Sex: 47 / F ADM Date: 07/30/22 Loc: [facility] Room: Type: [facility] Attending Dr: Jud Monson NP-C Copies to: [...] Martines Jr., D.ORaf07/30/2022 12:09 PM Dictation Location: [place] [address] Transcribed By: [facility] 07/30/22 1209 Dictated By: Jeremie Martines Jr, DO 07/30/22 1209 Signed By: 07/30/22 1209 [place] XR CERVICAL SPINE (2-3 VIEWS )on 02-07-2021 [...] Boubacar Louis MD 02/07/21 Final result Normal [facility] XR CERVICAL SPINE (2-3 VIEWS )Ordered By: Garfield Restrepo on 02-07-2021 No acute osseous abnormality. DrDoctor Phone: EXAMINATION: XRAY VIEWS OF THE CERVICAL SPINE 02/07/2021 12:33 pm COMPARISON: None. HISTORY: ORDERING SYSTEM PROVIDED HISTORY: right arm pain TECHNOLOGIST PROVIDED HISTORY: right arm pain Reason for Exam: RUE pain Acuity: Chronic Type of Exam: Initial FINDINGS: Vertebral body height and alignment are maintained. There are minimal degenerative changes. There is no evidence of fracture or malalignment. DrDoctor Phone: Rashid, Mhpn Incoming Radiant Results From [employer] - 02/07/2021 1:12 PM EDT EXAMINATION: XRAY [...] or malalignment. IMPRESSION: No acute osseous abnormality. DrDoctor Phone: DrDoctor Phone: Basic Metab w/rfx MGon 01-19 (cont.) Normal [facility] Comment on above: Result Comment: Aver age GFR for 40-49 years old: 99 mL/min/1.73sq m Chronic Kidney Disease: <60 mL/min/1.73sq m Kidney failure: <15 mL/min/1.73sq m eGFR calculated using average adult body mass. Additional eGFR calculator available at: http://www.Symform.Archetypes/multiple_crcl_2012.htm Performed By: #### C DP, BMPX #### [place] [address] Oral Surgeon: Brady Chan MD Anion gap [Moles/Vol] 8 mmol/L Low 9-17 [facility] Comment on above: Performed By: #### C DP, BMPX #### [place] [address] Oral Surgeon: Brady Chan MD Calcium [Mass/Vol] 9.4 mg/dL Normal 8.6-10.4 [facility] Comment on above: Performed By: #### C DP, BMPX #### [place] [address] Oral Surgeon: Brady Chan MD Chloride [Moles/Vol] 103 mmol/L Normal 98-107 [facility] Comment on above: Performed By: #### C DP, BMPX #### [place] [address] Oral Surgeon: Brady Chan MD CO2 [Moles/Vol] 27 mmol/L Normal 20-31 [facility] Comment on above: Performed By: #### C DP, BMPX #### [place] [address] Oral Surgeon: Brady Chan MD Creatinine [Mass/Vol] 0.73 mg/dL Normal 0.50-0.90 [facility] Comment on above: Performed By: #### C DP, BMPX #### [place] [address] Oral Surgeon: Brady Chan MD GFR, Amer >60 Normal >60 [facility] Comment on above: Performed By: #### C DP, BMPX #### [place] [address] Oral Surgeon: Brady Chan MD GFR,non Amer >60 Normal >60 [facility] Comment on above: Performed By: #### C DP, BMPX #### [place] [address] Oral Surgeon: Bardy Chan MD Glucose [Mass/Vol] 107 mg/dL High 70-99 [facility] Comment on above: Performed By: #### C DP, BMPX #### [place] [address] Oral Surgeon: Brady Chan MD Potassium [Moles/Vol] 3.8 mmol/L Normal 3.7-5.3 [facility] Comment on above: Performed By: #### C DP, BMPX #### [place] [address] Oral Surgeon: Brady Chan MD Sodium [Moles/Vol] 138 mmol/L Normal 135-144 [facility] Comment on above: Performed By: #### C DP, BMPX #### [place] [address] Oral Surgeon: Brady Chan MD Urea nitrogen [Mass/Vol] 11 mg/dL Normal 6-20 [facility] Comment on above: Performed By: #### C DP, BMPX #### [place] [address] Oral Surgeon: Brady Chan MD BUN/CRE Ratio NOT REPORTED Normal 9-20 [facility] Comment on above: Performed By: #### C DP, BMPX #### [place] [address] Oral Surgeon: Brady Chan MD Staging: NOT REPORTED Normal [facility] Comment on above: Performed By: #### C DP, BMPX #### [place] [address] Oral Surgeon: Brady Chan MD CBC with Diffon 01-19-2021 Abs. Basophil 0.10 k/uL Normal 0.0-0.2 [facility] Comment on above: Performed By: #### C DP, BMPX #### [place] [address] Oral Surgeon: Brady Chan MD Abs.Neutrophil (Seg) 4.30 k/uL Normal 1.8-7.7 [facility] Comment on above: Performed By: #### C DP, BMPX #### [place] [address] Oral Surgeon: Brady Chan MD Basophils/100 WBC (Bld) 1 % Normal 0-2 [facility] Comment on above: Performed By: #### C DP, BMPX #### [place] [address] Oral Surgeon: Brady Chan MD Eosinophils (Bld) [#/Vol] 0.10 10*3/uL Normal 0.0-0.4 [facility] Comment on above: Performed By: #### C DP, BMPX #### [place] [address] Oral Surgeon: Brady Chan MD Eosinophils/100 WBC (Bld) 2 % Normal 1-4 [facility] Comment on above: Performed By: #### C DP, BMPX #### [place] [address] Oral Surgeon: Brady Chan MD Erythrocyte distribution width (RBC) [Ratio] 13.0 % Normal 12.5-15.4 [facility] Comment on above: Performed By: #### C DP, BMPX #### [place] [address] Oral Surgeon: Brday Chan MD Hematocrit (Bld) [Volume fraction] 41.3 % Normal 36-46 [facility] Comment on above: Performed By: #### C DP, BMPX #### [place] [address] Oral Surgeon: Brady Chan MD Hemoglobin (Bld) [Mass/Vol] 14.1 g/dL Normal 12.0-16.0 [facility] Comment on above: Performed By: #### C DP, BMPX #### [place] [address] Oral Surgeon: Brady Chan MD Lymphocytes (Bld) [#/Vol] 3.10 10*3/uL Normal 1.0-4.8 [facility] Comment on above: Performed By: #### C DP, BMPX #### [place] [address] Oral Surgeon: Brady Chan MD Lymphocytes/100 WBC (Bld) 37 % Normal 24-44 [facility] Comment on above: Performed By: #### C DP, BMPX #### [place] [address] Oral Surgeon: Brady Chan MD MCH (RBC) [Entitic mass] 31.2 pg Normal 26-34 [facility] Comment on above: Performed By: #### C DP, BMPX #### [place] [address] Oral Surgeon: Brady Chan MD MCHC (RBC) [Mass/Vol] 34.2 g/dL Normal 31-37 [facility] Comment on above: Performed By: #### C DP, BMPX #### [place] [address] Oral Surgeon: Brady Chan MD MCV (RBC) [Entitic vol] 91.1 fL Normal 80-100 [facility] Comment on above: Performed By: #### C DP, BMPX #### [place] [address] Oral Surgeon: Brady Chan MD Monocytes (Bld) [#/Vol] 0.70 10*3/uL Normal 0.1-1.2 [facility] Comment on above: Performed By: #### C DP, BMPX #### [place] [address] Oral Surgeon: Brady Chan MD Monocytes/100 WBC (Bld) 8 % Normal 2-11 [facility] Comment on above: Performed By: #### C DP, BMPX #### [place] [address] Oral Surgeon: Brady Chan MD Neutrophil (Seg) 52 % Normal 36-66 [facility] Comment on above: Performed By: #### C DP, BMPX #### [place] [address] Oral Surgeon: Brady Chan MD Platelet mean volume (Bld) [Entitic vol] 8.4 fL Normal 6.0-12.0 [facility] Comment on above: Performed By: #### C DP, BMPX #### [place] [address] Oral Surgeon: Brady Chan MD Platelets (Bld) [#/Vol] 199 10*3/uL Normal 140-450 [facility] Comment on above: Performed By: #### C DP, BMPX #### [place] [address] Oral Surgeon: Brady Chan MD RBC (Bld) [#/Vol] 4.54 10*6/uL Normal 4.0-5.2 [facility] Comment on above: Performed By: #### C DP, BMPX #### [place] [address] Oral Surgeon: Brady Chan MD WBC (Bld) [#/Vol] 8.2 10*3/uL Normal 3.5-11.0 [facility] Comment on above: Performed By: #### C DP, BMPX #### [place] [address] Oral Surgeon: Brady Chan MD Abs.Imm.Granulocyte NOT REPORTED Normal 0.00-0.30 [facility] Comment on above: Performed By: #### C DP, BMPX #### [place] [address] Oral Surgeon: Brady Chan MD Auto Diff Performed NOT REPORTED Normal [facility] Comment on above: Performed By: #### C DP, BMPX #### [place] [address] Oral Surgeon: Brady Chan MD Immature Granulocyte NOT REPORTED Normal 0 [facility] Comment on above: Performed By: #### C DP, BMPX #### [place] [address] Oral Surgeon: Brady Chan MD NRBC Automated NOT REPORTED Normal [facility] Comment on above: Performed By: #### C DP, BMPX #### [place] [address] Oral Surgeon: Brady Chan MD Platelet Estimate NOT REPORTED Normal [facility] Comment on above: Performed By: #### C DP, BMPX #### [place] [address] Oral Surgeon: Brady Chan MD RBC morphology finding Nom (Bld) NOT REPORTED Normal [facility] Comment on above: Performed By: #### C DP, BMPX #### [place] [address] Oral Surgeon: Brady Chan MD WBC Morphology NOT REPORTED Normal [facility] Comment on above: Performed By: #### C DP, BMPX #### [place] [address] Oral Surgeon: Brady Chan MD US DUP LOWER EXTREMITY [...] Gold Honeycutt MD 01/19/21 Final result Normal [facility] ABDOMEN 1VWon 08-08-2020 ABDOMEN 1VW [facility] Department of Radiology [address] [place] [phone] ======== Patient Name: LYNETTE PRINCE : [...] projections. Electronically signed: Brady Shen. Transcribed by: [email or web address], User Resident: Electronically Signed by: BRADY SHEN @ 08/08/2020 03:15 PM Normal [facility] Comment on above: Order Comment: pleas e evaluate for fecal over load AFP TUMOR MARKER 22575ll AFP TUMOR MARKER 2 ng/mL Normal 0-9 [facility] Comment on above: Result Comment: INTE RPRETIVE INFORMATION: Alpha Fetoprotein Tumor Marker The Malorie Acosta Access DxI AFP method is used. Results [...] reference intervals for this test in the [facility] Test Directory (Melophone). Performed By: [facility] [address] [place] [id number] Aircraft Armament Mechanic: Radha Horton MD ANAon 08-08-2020 Nuclear Ab IF (S) [Titer] <1:40 Normal <1:40,1:40 [facility] Comment on above: Performed By: #### 1 0196, [address] #### [facility] [address] [place] [address], [facility] BASIC METABOLIC PANELon 07-25 Calcium [Mass/Vol] 9.3 mg/dL Normal 8.6-10.3 [facility] Comment on above: Performed By: #### 9 9909, [address]2009 #### [facility] [address] [place] [address], [place] Chloride [Moles/Vol] 104 mmol/L Normal 98-107 [facility] Comment on above: Performed By: #### 9 9908, 35[address] #### [facility] [address] [place] [address], [place] CO2 [Moles/Vol] 25 mmol/L Normal 21-31 [facility] Comment on above: Performed By: #### 9 9908, 48959 #### [facility] [address] [place] [address], [place] Creatinine [Mass/Vol] 0.93 mg/dL Normal 0.60-1.20 [facility] Comment on above: Performed By: #### 9 9908, 96593 #### [facility] [address] [place] [address], [place] GFR/1.73 sq M predicted among blacks MDRD (S/P/Bld) [Vol rate/Area] mL/min/{1.73_m2} Normal >60 [facility] Comment on above: Performed By: #### 9 9908, 38[address] #### [facility] [address] [place] [address], [place] GFR/1.73 sq M predicted among non-blacks MDRD (S/P/Bld) [Vol rate/Area] mL/min/{1.73_m2} Normal >60 [facility] Comment on above: Performed By: #### 9 9908, 746[address] #### [facility] [address] [place] [address], [place] Glucose [Mass/Vol] 97 mg/dL Normal 70-100 [facility] Comment on above: Performed By: #### 9 9908, 48689 #### [facility] [address] [place] [address], [place] Potassium [Moles/Vol] 3.9 mmol/L Normal 3.5-5.1 [facility] Comment on above: Performed By: #### 9 9909, 27980 #### [facility] [address] Sodium [Moles/Vol] 137 mmol/L Normal 136-145 [facility] Comment on above: Performed By: #### 9 99, 87683 #### [facility] [address] Urea nitrogen [Mass/Vol] 15 mg/dL Normal 7-25 [facility] Comment on above: Performed By: #### 9 9909, [address] #### [facility] [address] CBC W/DIFFon 08-08-2020 ABS BASOPHILS 0.1 10*3/uL Normal 0.0-0.2 [facility] Comment on above: Performed By: #### 5 0103 #### [facility] [address] ABS IMM GRANS 0.0 10*3/uL Normal 0.0-0.2 [facility] Comment on above: Performed By: #### 5 0103 #### [facility] [address] ABS NEUTROPHILS 4.4 10*3/uL Normal 1.6-7.6 [facility] Comment on above: Performed By: #### 5 0103 #### [facility] [address] Basophils/100 WBC (Bld) 0.9 % Normal 0.0-1.0 [facility] Comment on above: Performed By: #### 5 0103 #### [facility] [address] [place] [address], [facility] Eosinophils (Bld) [#/Vol] 0.1 10*3/uL Normal 0.0-0.5 [facility] Comment on above: Performed By: #### 5 0103 #### [facility] [address] [facility] [place] [address], [facility] Eosinophils/100 WBC (Bld) 1.1 % Normal 0.0-6.0 [facility] Comment on above: Performed By: #### 3 #### [facility] [address] Erythrocyte distribution width (RBC) [Ratio] 13.0 % Normal 11.5-15.0 [facility] Comment on above: Performed By: #### 3 #### [facility] [address] Hematocrit (Bld) [Volume fraction] 42.8 % Normal 36.0-45.0 [facility] Comment on above: Performed By: #### 3 #### [facility] [address] Hemoglobin (Bld) [Mass/Vol] 14.7 g/dL Normal 12.0-15.0 [facility] Comment on above: Performed By: #### 102 #### [facility] [address] [place] [address], [facility] IMMATURE GRANS 0.3 % Normal 0.0-1.0 [facility] Comment on above: Performed By: #### 5 3 #### [facility] [address] [place] [address], [facility] Lymphocytes (Bld) [#/Vol] 2.2 10*3/uL Normal 1.2-4.0 [facility] Comment on above: Performed By: #### 3 #### [facility] [address] [facility] [place] [address], [facility] Lymphocytes/100 WBC (Bld) 30.0 % Normal 20.0-45.0 [facility] Comment on above: Performed By: #### 3 #### [facility] [address] [facility] [place] [address], [facility] MCH (RBC) [Entitic mass] 31.4 pg Normal 27.0-33.0 [facility] Comment on above: Performed By: #### 5 3 #### [facility] [address] [facility] [address] MCHC (RBC) [Mass/Vol] 34.3 g/dL Normal 32.0-35.0 [facility] Comment on above: Performed By: #### 102 #### [facility] [address] MCV (RBC) [Entitic vol] 91.5 fL Normal 82.0-98.0 [facility] Comment on above: Performed By: #### 102 #### [facility] [address] Monocytes (Bld) [#/Vol] 0.6 10*3/uL Normal 0.1-1.0 [facility] Comment on above: Performed By: #### 5 102 #### [facility] [address] MONOS 8.6 % Normal 5.0-12.0 [facility] Comment on above: Performed By: #### 5 3 #### [facility] [address] Neutrophils/100 WBC (Bld) 59.1 % Normal 40.0-72.0 [facility] Comment on above: Performed By: #### 5 3 #### [facility] [address] Nucleated RBC/100 WBC (Bld) [Ratio] 0 % Normal 0-0 [facility] Comment on above: Performed By: #### 5 102 #### [facility] [address] [place] [address], [facility] PLAT CNT 163 10*3/uL Normal 150-400 [facility] Comment on above: Performed By: #### 5 0103 #### [facility] [address] [place] [address], [facility] RBC (Bld) [#/Vol] 4.68 10*6/uL Normal 3.80-5.00 [facility] Comment on above: Performed By: #### 5 0103 #### [facility] [address] [place] [address], [facility] WBC (Bld) [#/Vol] 7.44 10*3/uL Normal 4.00-10.60 [facility] Comment on above: Performed By: #### 5 0103 #### [facility] [address] HEPATITIS A ANTIBODY IGMon 0 08-08-2020 HEP A AB IGM NONREACTIVE Normal NONREACTIVE [facility] Comment on above: Performed By: #### 3 1422, 53629, 01732, 56262 #### [facility] [address] [place] [address], [facility] HEPATITIS B CORE ANTIBODYon 08-08-2020 HEP B CORE AB NONREACTIVE Normal NONREACTIVE [facility] Comment on above: Performed By: #### 3 1422, 95034, 67731, 89071 #### [facility] [address] HEPATITIS B SURFACE ANTIGEN QUALon 08-08-2020 HEP B SURF AG QUAL NONREACTIVE Normal NONREACTIVE [facility] Comment on above: Performed By: #### 3 1422, 85123, 54550, 77202 #### [facility] [address] [place] [address], [facility] HEPATITIS C ANTIBODYon 08-08 ANTI-HCV NONREACTIVE Normal NONREACTIVE [facility] Comment on above: Performed By: #### 3 1422, 85026, 40416, 54432 #### [facility] [address] [place] [address], [place] LIVER BATTERYon 08-08-2020 Albumin [Mass/Vol] 4.5 g/dL Normal 3.5-5.7 [facility] Comment on above: Performed By: #### 9 99, [id number] #### [facility] [address] [place] [address], [place] ALKALINE PHOSPH 37 IU/L Normal 34-104 [facility] Comment on above: Performed By: #### 9 [id number], [id number] #### [facility] [address] [place] [address], [place] ALT [Catalytic activity/Vol] 56 U/L High 7-52 [facility] Comment on above: Performed By: #### 9 9908, 79595 #### [facility] [address] [place] [address], [place] AST [Catalytic activity/Vol] 38 U/L Normal 13-39 [facility] Comment on above: Performed By: #### 9 9908, 00100 #### [facility] [address] [place] [address], [place] Bilirubin [Mass/Vol] 1.1 mg/dL High 0.3-1.0 [facility] Comment on above: Performed By: #### 9 9908, [id number] #### [facility] [address] [place] [address], [place] Bilirubin.direct [Mass/Vol] 0.2 mg/dL Normal 0.0-0.2 [facility] Comment on above: Performed By: #### 9 9908, [id number] #### [facility] [address] [place] [address], [place] Protein [Mass/Vol] 7.5 g/dL Normal 6.0-8.3 [facility] Comment on above: Performed By: #### 9 9908, 97073 #### [facility] [address] LIVER FIBROSIS CHRONIC VIRAL [id number] 08-08-2020 [id number] ,FIBROMETER 259 mg/dL Normal 131-293 [facility] ALT [Catalytic activity/Vol] 69 U/L High 5-40 [facility] Amylase [Catalytic activity/Vol] 131 U/L High 7-33 [facility] AST [Catalytic activity/Vol] 54 U/L High 9-40 [facility] Comment on above: Result Comment: This specimen is Hemolyzed. This may cause the results to be falsely increased. CIRRHOMETER PATIENT SCORE 0.12 Normal [facility] EER FIBROMETER REPORT See Note Normal [facility] Comment on above: Result Comment: [facility] Enhanced Report using the link below: -Direct access: [email or web address] FIBROMETER INTERPRETATION See Report Normal [facility] Comment on above: Result Comment: INTE RPRETIVE INFORMATION: Fibrometer Interpretation Calculations for the final report are based on accurate data for age, gender, and platelet count. If any of this information needs to be corrected, please contact [facility] Client Services to request a recalculation. Client Services may be contacted at . The [employer] FibroMeter profile serves as a surrogate marker [...] developed and its performance characteristics determined by [facility]. It has not been cleared or approved by the [place] Food and Drug Administration. This test was performed in a CLIA certified laboratory and is intended for clinical purposes. [13] [17] Performed By: [facility] [address] [place] [address] Aircraft Armament Mechanic: Radha Horton MD FIBROMETER PLATELET CT 163 k/uL Normal [facility] FIBROMETER PLATELET IND 81 % Low 90-120 [facility] FIBROMETER PLATELET SCORE 0.62 Normal [facility] FIBROSIS METAVIR CLASSIFICATION F2[F1-F3] Normal [facility] Comment on above: Result Comment: INTE [...] possible INFLAMETER METAVIR CLASSIFICATION A1/A2 Normal [facility] Comment on above: Result Comment: INTE RPRETIVE INFORMATION: InflaMeter Metavir Classification InflaMeter (activity score) comments A0/A1 Equal probability between A0 and A1 A1/A2 Equal probability between A1 and A2 A2/A3 Equal probability between A2 and A3 INFLAMETER PATIENT SCORE 0.61 Normal [facility] Urea nitrogen [Mass/Vol] 14 mg/dL Normal 7-20 [facility] MITOCHONDRIAL ABon 1 MITOCHONDRIAL AB SEE ARUP RESULT Abnormal NONE DETECTED [facility] Comment on above: Result Comment: NONE DETECTED LESS THAN 1:20 INTERMEDIATE LEVEL 1:20 - 1:80 (MAY BE PRESENT IN AUTOALLERGIC LIVER DISEASE) ELEVATED LEVEL GREATER THAN OR EQUAL TO 1:160 (STRONGLY SUGGESTIVE OF PRIMARY BILIARY CIRRHOSIS) Performed By: #### 1 0196, [id number] #### [facility] [address] MITOCHONDRIAL M2 ANTIBODY, [place] [id number] 08-08-2020 MITOCHONDRIAL M2 ANTIBODY IGG 2.1 Units Normal 0.0-24.9 [facility] Comment on above: Result Comment: REFE [...] does not rule out PBC. Performed By: [facility] [address] [place] [id number] Aircraft Armament Mechanic: Radha Horton MD PROTHROMBIN TIMEon INR Coag (PPP) [Relative time] 1.05 {INR} Normal 0.91-1.16 [facility] Comment on above: Result Comment: ACCC P RECOMMENDED INR FOR WARFARIN THERAPY -------- ------- CONDITION INR PROPHYLAXIS OF VENOUS THROMBOSIS 2-3 (HIGH-RISK SURGERY) TREATMENT OF VENOUS THROMBOSIS 2-3 TREATMENT OF PULMONARY EMBOLISM 2-3 PREVENTION OF SYSTEMIC EMBOLISM: 2-3 ACUTE MYOCARDIAL INFARCTION TISSUE HEART VALVES VALVULAR HEART DISEASE ATRIAL FIBRILLATION RECURRENT SYSTEMIC EMBOLISM MECHANICAL HEART VALVE 2.5-3.5 FROM: ORAL ANTICOAGULANTS. MECHANISM OF ACTION, CLINICAL EFFECTIVENESS, AND OPTIMAL THERAPEUTIC RANGE. CHEST 1995;108:231S-246S. Performed By: #### 1 0196, [id number] #### [facility] [address] [place] [address], [facility] PT Coag (PPP) [Time] 13.7 s Normal 12.3-14.8 [facility] Comment on above: Result Comment: ALL RESULTS MUST BE INTERPRETED WITH RESPECT TO BLOOD DRAWING ARTIFACT OR DILUTION ERROR OF ANTICOAGULANT AT THE TIME OF SAMPLING. Performed By: #### 1 0196, [id number] #### [facility] [address] [place] [address], [facility] XR FOOT LEFT (MIN 3 VIEWS)on 04-24-2019 No acute osseous abnormality in the left foot. FAB BAG [email or web address] EXAMINATION: THREE XRAY VIEWS OF THE LEFT [...] Joint spaces are preserved. No bony erosion. FAB BAG [email or web address] Rashid, pn Incoming Radiant Results From [employer] - 04/24/2019 5:49 PM EDT EXAMINATION: THREE [...] acute osseous abnormality in the left foot. [facility]- [place], [place] Large Joint Arthro/Inj: bila teral greater trochanteric bursa injection [facility] Vital Signs Date Time Vital Sign Value Performing Clinician Bal infante 11-17-2023 08:59-0400 Body mass index (BMI) [Ratio] 40.39 kg/m2 Brett Dickson MD Work Phone: [facility] 11-17-2023 08:59-0400 Body weight 113.5 kg Brett Dickson MD Work Phone: [facility] 11-17-2023 08:59-0400 Diastolic blood pressure 91 mm[Hg] Brett Dickson MD Work Phone: [facility] 11-17-2023 08:59-0400 Heart rate 104 /min Brett Dickson MD Work Phone: [facility] 11-17-2023 08:59-0400 Systolic blood pressure 136 mm[Hg] Brett Dickson MD Work Phone: [facility] 09-02-2023 11:36-0500 Body height 172.1 cm Michael Perkins MD Work Phone: [facility] 09-02-2023 11:36-0500 Body mass index (BMI) [Ratio] 38.6 kg/m2 Michael Perkins MD Work Phone: [facility] 09-02-2023 11:36-0500 Body weight 114.31 kg Michael Perkins MD Work Phone: [facility] 09-02-2023 11:36-0500 Diastolic blood pressure 90 mm[Hg] Michael Perkins MD Work Phone: [facility] 09-02-2023 11:36-0500 Heart rate 107 /min Michael Perkins MD Work Phone: [facility] 09-02-2023 11:36-0500 SaO2% (BldA) [Mass fraction] 94 % Michael Perkins MD Work Phone: [facility] [employer] 09-02-2023 11:36-0500 Systolic blood pressure 128 mm[Hg] Michael Perkins MD Work Phone: [facility] [employer] 08-05-2023 11:00-0500 Body height 167 cm Cody Hutchins CHIEF RESOURCE OFFICER-ASSEMBLY TECHNICIAN Work Phone: [facility] [employer] 08-05-2023 11:00-0500 Body mass index (BMI) [Ratio] 39.39 kg/m2 Cody Hutchins CHIEF RESOURCE OFFICER-ASSEMBLY TECHNICIAN Work Phone: [facility] [employer] 08-05-2023 11:00-0500 Body weight 109.86 kg Cody Hutchins CHIEF RESOURCE OFFICER-ASSEMBLY TECHNICIAN Work Phone: [facility] [employer] 08-05-2023 11:00-0500 Diastolic blood pressure 88 mm[Hg] Cody Hutchins CHIEF RESOURCE OFFICER-ASSEMBLY TECHNICIAN Work Phone: [facility] [employer] 08-05-2023 11:00-0500 Heart rate 88 /min Cody Hutchins CHIEF RESOURCE OFFICER-ASSEMBLY TECHNICIAN [facility] 08-05-2023 11:00-0500 Systolic blood pressure 130 mm[Hg] Cody Hutchins CHIEF RESOURCE OFFICER-ASSEMBLY TECHNICIAN [facility] 07-13-2023 16:15-0500 Body height 167.64 cm Beba Richey Other [employer] Other 07-13-2023 16:15-0500 Body mass index (BMI) [Ratio] 39.06 kg/m2 Beba Richey Other [employer] Other 07-13-2023 16:15-0500 Body temperature 97.3 [degF] Beba Richey Other [employer] Other 07-13-2023 16:15-0500 Body weight 109.77 kg Beba Richey Other [employer] Other 07-13-2023 16:15-0500 Diastolic blood pressure 80 mm[Hg] Beba Farahmond Other [employer] Other 07-13-2023 16:15-0500 Respiratory rate 18 /min Beba Farahmond Other [employer] Other 07-13-2023 16:15-0500 SaO2% (BldA) [Mass fraction] 98 % Beba Farahmond Other [employer] Other 07-13-2023 16:15-0500 Systolic blood pressure 120 mm[Hg] Beba Farahmond Other [employer] Other 06-24-2023 11:38-0500 Body height 167.6 cm [...] (BMI) [Ratio] 37.12 kg/m2 Garfield Restrepo MD [employer] Work Phone: 02-07-2021 11:53-0400 Body temperature 98.4 [degF] Garfield Restrepo MD [employer] Work Phone: 02-07-2021 11:53-0400 Body weight 104.33 kg Garfield Restrepo MD [employer] Work Phone: 02-07-2021 11:53-0400 Diastolic blood pressure 92 mm[Hg] Garfield Restrepo MD [employer] Work Phone: 02-07-2021 11:53-0400 Heart rate 108 /min Garfield Restrepo MD [employer] Work Phone: 02-07-2021 11:53-0400 Respiratory rate 16 /min Garfield Restrepo MD [employer] Work Phone: 02-07-2021 11:53-0400 SaO2% (BldA) [Mass fraction] 96 % Garfield Restrepo MD [employer] Work Phone: 02-07-2021 11:53-0400 Systolic blood pressure 122 mm[Hg] Garfield Restrepo MD [employer] Work Phone: 04-24-2019 15:30-0400 Pulse (Heart Rate) 104 /min [place] 04-24-2019 15:28-0400 BMI (Body Mass Index) 35.51 kg/m2 [place] 04-24-2019 15:28-0400 Body Temperature 98.4 [degF] [facility] 04-24-2019 15:28-0400 Body weight 99.79 kg Gold Lyn [facility] , [facility] 04-24-2019 15:28-0400 BP Diastolic 81 mm[Hg] Gold Lyn [facility] , [facility] 04-24-2019 15:28-0400 BP Systolic 116 mm[Hg] Gold Lyn [facility] , [facility]IP[facility]O 04-24-2019 15:28-0400 Height 167.6 cm Gold Lyn [facility] , [facility]IP[facility] 04-24-2019 15:28-0400 Pulse Oximetry 95 % [facility] 04-24-2019 15:28-0400 Respiratory Rate 15 /min [facility] Encounters Encounter Date Encounter Type Care Provider Facility Start: 11-23-2023 ambulatory Brett Dickson MD Work Phone: [facility] Comment on above: Left hip pain Start: 11-22-2023 Telephone encounter Brett Dickson MD Work Phone: [facility] Comment on above: office notes Start: 11-21-2023 Telephone encounter Noemi perez MD Work Phone: Rheumatology Comment on above: Results Start: 11-17-2023 Telephone encounter Brett Dickson MD Work Phone: [facility] Comment on above: Forms/letter (Letter for work) Start: 11-17-2023 End: 11-18-2023 ambulatory TOY OBRIEN Facility:[facility] Start: 11-17-2023 End: 11-17-2023 Office outpatient new 45 minutes Brett Dickson MD Work Phone: [facility] Comment on above: Myelopathy (HCC) (Pr imary Dx); Pain in joint, multiple sites; [place] obesity; Vitamin D deficiency; Screening for condition; Malaise and fatigue; Demyelinating disease of central nervous system (HCC) Start: 11-14-2023 ambulatory Noemi Pham MD Work Phone: Rheumatology Start: 11-14-2023 Patient encounter procedure Noemi Pham MD Work Phone: Rheumatology Comment on above: Labs Start: 11-14-2023 Telephone encounter Noemi perez MD Work Phone: [facility] [place] Comment on above: Patient Question Start: 11-11-2023 End: 11-11-2023 ambulatory TOY OBRIEN Facility:[facility] Start: 11-11-2023 End: 11-11-2023 ambulatory Liz Connolly MD Work Phone: Neurology Comment on above: Myofascial pain dysf unction syndrome (Primary Dx); Vision disturbance; Disturbance of skin sensation; Alteration in bowel and bladder function; Abnormal involuntary movement; Restless legs; Intractable migraine equivalent; Muscle twitching; Non-restorative sleep; MARINE (obstructive sleep apnea); Fatigue, unspecified type; History of vitamin D deficiency; History of hypothyroidism; Joint swelling; Polyarthralgia; Recent skin changes Start: 11-11-2023 End: 11-11-2023 Telemedicine consultation with patient Liz Connolly MD Work Phone: Neurology Start: 11-11-2023 End: 11-11-2023 ambulatory [facility] Start: 11-03-2023 End: 11-03-2023 ambulatory [facility] Work Phone: Start: 11-03-2023 End: 11-03-2023 Patient encounter procedure [facility] Work Phone: Start: 11-03-2023 Telephone encounter Noemi perez MD Work Phone: Rheumatology Comment on above: Insurance Authorizat ion (Enbrel) Start: 10-14-2023 End: 10-14-2023 ambulatory DALLAS MEREDITH [facility] Start: 10-14-2023 End: 10-14-2023 [facility]ulatory [facility] Comment on above: Retinoschisis, bullo [...] End: 09-28-2023 Emergency department patient visit NASEEM [facility] Start: 09-27-2023 End: 09-27-2023 Emergency department patient visit TOY Gimenez OBRIEN [facility] Start: 09-26-2023 ambulatory Noemi Pham MD [...] above: Pain Start: 09-02-2023 End: 09-02-2023 ambulatory [facility] Start: 09-02-2023 End: 09-02-2023 Office outpatient visit 25 minutes Michael Perkins MD Work Phone: [facility] Comment on above: Primary hypertension (Primary Dx); Coronary artery vasospasm (CMS-HCC); Intermittent palpitations; Obstructive sleep apnea Start: 09-01-2023 Telephone encounter Mei Garcia CMA [facility] Comment on above: Appointment Start: 08-05-2023 End: 08-05-2023 ambulatory [facility] Start: 08-05-2023 End: 08-05-2023 Office outpatient visit 25 minutes [facility] CHIEF RESOURCE OFFICER-ASSEMBLY TECHNICIAN Work Phone: [facility] Comment on above: Status migrainosus ( Primary Dx); Migraine without aura and without status migrainosus, not intractable; Cervicalgia; Fibromyalgia; Paresthesias; Trapezius muscle spasm; Vertigo Start: 08-03-2023 Telephone encounter Gloria [facility] Start: 07-21-2023 End: 07-21-2023 ambulatory Betty Moreau Other [employer] Other Start: 07-21-2023 Telephone encounter Naz Andrew [facility] Comment on above: Headache Start: 07-13-2023 End: 07-13-2023 ambulatory Beba Richey Other [employer] Other Start: 07-13-2023 Office outpatient vi sit 15 minutes Beba Richey [facility] Start: 06-24-2023 End: 06-25-2023 ambulatory TOY OBRIEN Facility:[facility] Start: 06-24-2023 End: 06-24-2023 ambulatory TOY OBRIEN Facility:[facility] Start: 06-24-2023 End: 06-24-2023 Subsequent hospital visit by physician [facility] Work Phone: [facility] Comment on above: Pain in joint, multi ple sites [M25.50] Start: 06-24-2023 End: 06-24-2023 Patient encounter procedure Noemi Pham MD Work Phone: Rheumatology Comment on above: Pain in joint, multi ple sites (Primary Dx); Trochanteric bursitis of both hips Start: 05-27-2023 End: 05-27-2023 ambulatory Jud Monson Other [facility] [employer] Other Start: 05-27-2023 Office outpatient vi sit 25 minutes Jud Monson [facility] Start: 05-12-2023 Telephone encounter Noemi perez MD Work Phone: Rheumatology Comment on above: Medication Problem Start: 03-21-2023 End: 03-22-2023 [facility] Start: 03-09-2023 Telephone encounter Noemi perez MD Work Phone: Rheumatology Start: 01-28-2023 Telephone encounter Noemi perez MD Work Phone: Rheumatology Comment on above: Orders Start: 01-26-2023 ambulatory Noemi Pham MD Work Phone: Rheumatology Comment on above: results of blood wor k Start: 01-26-2023 E-mail encounter fro m caregiver Noemi Pham MD Work Phone: [facility]ILDA RE[facility] Start: 01-14-2023 End: 01-15-2023 ambulatory TOY OBRIEN [facility] Start: 01-11-2023 Refill Noemi Pham MD Work Phone: Rheumatology Comment on above: Refill Request Start: 12-24-2022 End: 12-24-2022 ambulatory TOY OBRIEN Neurology Start: 12-24-2022 End: 12-24-2022 Patient encounter procedure Emg 3 Neur Main (Max Weight: 1000) Work Phone: [facility] Start: 12-17-2022 End: 12-17-2022 ambulatory LACHELLE BARTON [facility] Start: 12-13-2022 End: 12-18-2022 ambulatory TOY OBRIEN [facility] Start: 12-01-2022 Telephone encounter Noemi perez [...] Rheumatology Comment on above: Refill Request Start: 08-11-2022 End: 08-12-2022 ambulatory NOEMI PHAM Facility:[facility] Start: 08-11-2022 End: 08-11-2022 Patient encounter procedure Noemi Pham MD Work Phone: Rheumatology Comment on above: Rheumatoid arthritis involving multiple sites, unspecified whether rheumatoid factor present (HCC) (Primary Dx) Start: 07-30-2022 End: 07-30-2022 ambulatory Jud Monson Facility:[facility] Start: 07-30-2022 End: 07-30-2022 ambulatory NUMERICAL CONTROL TOOL PROGRAMMER-C Jud Monson Work Phone: [facility] Work Phone: Start: 07-30-2022 End: 07-30-2022 Patient encounter procedure NUMERICAL CONTROL TOOL PROGRAMMER-C Jud Monson Work Phone: [facility] Start: 06-04-2022 Telephone encounter Noemi perez MD Work Phone: Rheumatology Comment on above: Insurance Authorizat ion Start: 06-02-2022 ambulatory Noemi Pham MD Work Phone: Rheumatology Comment on above: Ankle pain Start: 05-29-2022 Refill Noemi Pham MD Work Phone: Rheumatology Comment on above: Refill Request Start: 05-17-2022 Telephone encounter Noemi perez MD Work Phone: [address] [place] [address] Comment on above: Patient Question Start: 12-29-2021 Telephone encounter Noemi perez MD Work Phone: Rheumatology Comment on above: Patient Request Start: 10-27-2021 ambulatory Noemi Pham MD Work Phone: Rheumatology Comment on above: Handicap plaquered Start: 07-22-2021 End: 07-25-2021 ambulatory [facility] Start: 07-03-2021 End: 07-06-2021 ambulatory [facility] Start: 02-07-2021 End: 02-07-2021 Emergency department patient visit [facility] Start: 02-07-2021 End: 02-07-2021 Emergency department patient visit Garfield Restrepo MD [facility] ED Comment on above: Neuropathic pain (Pr imary Dx) Start: 01-19-2021 End: 01-19-2021 Emergency department patient visit [facility] Start: 05-20-2020 End: 05-20-2020 Subsequent hospital visit by physician Zackary Garcia [facility] Comment on above: Canceled (Patient no show) Start: 05-16-2020 End: 05-16-2020 Subsequent hospital visit by physician Glory AREVALO [facility] Comment on above: Canceled (Patient) Start: 05-14-2020 End: 05-14-2020 Subsequent hospital visit by physician Sander Jauregui [facility] Start: 04-24-2019 End: 04-24-2019 Emergency department patient visit Gold Barrios Star Work Phone: [facility] Comment on above: Sprain of left foot, initial encounter (Primary Dx) Procedures Date Procedure Procedure Detail Performing Clinician Start: 10-14-2023 End: 10-14-2023 Computerized ophthalmic imaging retina Dallas S Meredith MD Work Phone: Start: 09-02-2023 Ecg [...] Start: 07-30-2022 Plain X-ray of right elbow NUMERICAL CONTROL TOOL PROGRAMMER-C Jud Monson Work Phone: Start: 07-24-2021 Lipid [...] Treatment Date Care Activity Detail Author Start: 09-26-2026 Diabetes Screening Diabetes Screenin [facility] Start: 07-24-2026 Lipid 1996 panel - S blanca or Plasma Lipid Screening [facility] Start: 07-24-2026 Lipid panel Lipid Screening [facility] Start: 07-24-2026 LIPID SCREEN LIPID SCREEN [facility] Start: 06-24-2026 Diabetes Screening Diabetes Screenin g [facility] Start: 11-08-2025 DIABETES SCREEN DIABETES SCREEN [facility] Start: 11-08-2025 Diabetes Screening Diabetes Screenin g [facility] Start: 08-11-2025 DIABETES SCREEN DIABETES SCREEN [facility] Start: 10-13-2024 Tobacco Screening Tobacco Screening [facility] Start: 09-02-2024 Adult BMI Screening Adult BMI Screen ing [facility] Start: 09-02-2024 Tobacco Screening Tobacco Screening [facility] Start: 08-05-2024 Adult BMI Screening Adult BMI Screen ing [facility] Start: 08-05-2024 Tobacco Screening Tobacco Screening [facility] Start: 05-13-2024 Glaucoma screening Diabetic Op hthalmology Exam [facility] Start: 05-13-2024 Tobacco Screening Tobacco Screening [facility] Start: 05-12-2024 Adult BMI Screening Adult BMI Screen ing [facility] Start: 04-20-2024 End: 04-20-2024 Patient encounter procedure 04/20/2024 9:30 AM EDT Office Visit [facility] [address] [place] [id number] Dallas Meredith MD [address] [place] [address] [facility] Start: 03-25-2024 Influenza vaccination Influenz a Vaccine (Season Ended) [facility] Start: 01-27-2024 End: 01-27-2024 Patient encounter procedure 01/27/2024 9:40 AM EDT Office Visit Rheumatology [address] [place] [address] Noemi Pham MD [address] [place], [place] [id number] Arthritis Return in about 6 months (around 12/24/2023) for RA . Rheumatology Comment on above: Arthritis Return in about 6 months (around 12/24/2023) for RA . Start: 12-18-2023 Colonoscopy COLONOSCOPY [facility] Start: 12-18-2023 COLORECTAL CANCER SCREENING COLORECTAL CANCER SCREENING [facility] Start: 12-18-2023 Screening for malign ant neoplasm of colon [facility] Start: 12-02-2023 End: 12-02-2023 Patient encounter procedure 12/02/2023 4:00 PM EDT Office Visit [facility] [address] [place] [address] Brett Dickson MD [address] [place], [place] [id number] FOLLOW UP [facility] Comment on above: FOLLOW UP Start: 11-17-2023 End: 02-16-2024 CRACKER DOUGH MIXER DEMYELINATING DISEASE EVALUATION, SERUM [facility] Comment on above: Expected: 11/17/2023 , Expires: 02/16/2024 Start: 11-17-2023 End: 02-16-2024 COPPER BLOOD [facility] Comment on above: Expected: 11/17/2023 , Expires: 02/16/2024 Start: 11-17-2023 End: 02-16-2024 DNA double strand Ab [Units/volume] in Serum by Immunoassay [facility] Comment on above: Expected: 11/17/2023 , Expires: 02/16/2024 Start: 11-17-2023 End: 02-16-2024 Extractable nuclear Ab panel - Serum [facility] Work Phone: Comment on above: Expected: 11/17/2023 , Expires: 02/16/2024 Start: 11-17-2023 End: 11-17-2023 Patient encounter procedure 11/17/2023 9:30 AM EDT Office Visit [facility] [address] [place] [address] Brett Dickson MD [address] [place] [address] MS [facility] Comment on above: MS Start: 11-14-2023 End: 02-13-2024 Thyrotropin [Units/volume] in Serum or Plasma THYROID STIMULATING HORMONE Lab Routine Hair loss Expected: 11/14/2023, Expires: 02/13/2024 [facility] Work Phone: Comment on above: Expected: 11/14/2023 , Expires: 02/13/2024 Start: 11-14-2023 End: 02-13-2024 Thyroxine (T4) free [Mass/volume] in Serum or Plasma T4 FREE/FREE THYROXINE Lab Routine Hair loss Expected: 11/14/2023, Expires: 02/13/2024 [facility] Comment on above: Expected: 11/14/2023 , Expires: 02/13/2024 Start: 11-14-2023 End: 02-13-2024 Triiodothyronine (T3) [Mass/volume] in Serum or Plasma T3 Lab Routine Hair loss Expected: 11/14/2023, Expires: 02/13/2024 [facility] Comment on above: Expected: 11/14/2023 , Expires: 02/13/2024 Start: 11-11-2023 End: 11-11-2023 Patient encounter procedure 11/11/2023 11:00 AM EDT Office Visit [facility] [address] [place] [address] Cody Hutchins, CHIEF RESOURCE OFFICER-ASSEMBLY TECHNICIAN [address] [place] [address] [facility] Start: 10-28-2023 End: 10-28-2023 Patient encounter procedure 10/28/2023 9:00 AM EDT Office Visit [facility] [address] [place] [address] Cody Hutchins, CHIEF RESOURCE OFFICER-ASSEMBLY TECHNICIAN [address] [place] [address] [facility] Start: 10-14-2023 End: 10-14-2023 Patient encounter procedure 10/14/2023 1:10 PM EDT Office Visit [facility] [address] [place] [address] Dallas Meredith MD [address] [place] [address] [facility] Start: 09-30-2023 End: 09-30-2023 Patient encounter procedure [facility] Start: 09-30-2023 End: 09-30-2023 ambulatory 09/30/2023 9:30 AM EST Ophthalmology Imaging [facility] [address] [place] [address] [facility] Start: 09-16-2023 End: 09-16-2023 Patient encounter procedure 09/16/2023 10:30 AM EST Office Visit [facility] [address] [place] [address] Dallas Meredith MD [address] [place] [address] [facility] Start: 09-06-[address] [facility] Start: 09-02-2023 End: 09-02-2023 Patient encounter procedure [facility] Start: 08-05-2023 End: 08-05-2023 Patient encounter procedure 08/05/2023 11:30 AM EST Office Visit [facility] [address] [place] [address] Cody Hutchins APRN-ASSEMBLY TECHNICIAN [address] [place] [address] [facility] Start: 07-25-2023 Behavioral Health Screening Behavioral Health Screening [facility] Start: 07-25-2023 [facility] Start: 05-16-2023 DIABETES SCREEN DIABETES SCREEN [facility] Start: 03-25-2023 Covid-19 Vaccine ( season) Covid-19 Vaccine () [facility] Start: 03-25-2023 Influenza vaccination [facility] Start: 01-26-2023 End: 03-28-2023 Extractable nuclear Ab panel - Serum ANTI LEVY ID Lab Routine Rheumatoid arthritis involving multiple sites, unspecified whether rheumatoid factor present (HCC) Expected: 01/26/2023, Expires: 03/28/2023 [facility] Work Phone: Comment on above: Expected: 01/26/2023 , Expires: 03/28/2023 Start: 10-27-2022 End: 12-27-2022 Aldolase [Enzymatic activity/volume] in Serum or Plasma ALDOLASE BLD Lab Routine Myalgia Expected: 10/27/2022, Expires: 12/27/2022 [facility] Work Phone: Comment on above: Expected: 10/27/2022 , Expires: 12/27/2022 Start: 10-27-2022 End: 12-27-2022 Creatine kinase [Enzymatic activity/volume] in Serum or Plasma CK CREATINE KINASE Lab Routine Myalgia Expected: 10/27/2022, Expires: 12/27/2022 [facility] Work Phone: Comment on above: Expected: 10/27/2022 , Expires: 12/27/2022 Start: 08-11-2022 End: 10-11-2022 Aldolase [Enzymatic activity/volume] in Serum or Plasma [facility] Work Phone: Comment on above: Expected: 08/11/2022 , Expires: 10/11/2022 Start: 07-25-2022 DEPRESSION ASSESSMENT DEPRESSION ASS ESSMENT [facility] Start: 03-25-2022 Influenza vaccination INFLUENZA (#1) [facility] Start: 03-19-2022 Adult depression screening assessment DEPRESSION SCREENING [facility] Start: 01-27-2022 DTaP,Tdap and Td Vac cines (2 - Td or Tdap) DTaP,Tdap and Td Vaccines (2 - Td or Tdap) [facility] Start: 01-27-2022 DTaP/Tdap/Td vaccine (2 - Td or Tdap) DTaP/Tdap/Td vaccine (2 - Td or Tdap) [facility] Phone: Start: 01-27-2022 DTaP/Tdap/Td vaccine (2 - Td) DTaP/Tdap/Td vaccine (2 - Td) [place] [place] Start: 01-27-2022 Urine microalbumin profile DTaP,Tdap,Td Vaccine (2 - Td or Tdap) [facility] Start: 07-25-2021 DEPRESSION ASSESSMENT DEPRESSION ASS ESSMENT [facility] Start: 03-25-2021 Influenza vaccination Flu vaccine (# 1) [facility] Phone: Start: 01-12-2021 COVID-19 VACCINE (3 - [...] System Start: [address] COLONOGRAPHY [facility] Start: 2020 FECAL OCCULT BLOOD FECAL OCCULT BLOO D [facility] Start: 2020 Screening for malign ant neoplasm of colon [facility] Start: 2020 [facility]OSCOPY [facility] Start: 05-29-2020 End: 05-29-2020 Appointment 05/29/2020 Appointment Physical Therapy Jeremie Barnett PTA [facility] Start: 05-28-2020 End: 05-28-2020 Appointment 05/28/2020 Appointment Physical Therapy Jeremie Barnett, DIRECTOR OF BROADCAST [facility] Start: 05-23-2020 End: 05-23-2020 Appointment 05/23/2020 Appointment Physical Therapy Glory Ortiz, DIRECTOR OF BROADCAST [facility] Start: 05-20-2020 End: 05-20-2020 Appointment [facility] Start: 05-16-2020 End: 05-16-2020 Appointment 05/16/2020 Appointment Physical Therapy Glory Ortiz, DIRECTOR OF BROADCAST [facility] Start: 03-25-2020 Influenza vaccination Flu vaccine (# 1) [employer], [place] Start: 03-25-2019 Influenza vaccination Flu vaccine (# 1) [employer], [place] Start: 2015 Diabetes screen Diabetes screen [employer] Phone: Start: 2015 Lipid panel Lipid screen [place], [place] Start: 2015 Lipid screen Lipid screen [place], [place] Start: 2015 Mammography [facility] Start: 2015 Screening for malign ant neoplasm of breast Mammogram Screening [facility] Start: 2005 HPV TESTING HPV TESTING [facility] Start: 2005 Screening for malign ant neoplasm of cervix HPV Testing [facility] Start: 1996 Cervical cancer screen Cervical canc er screen [employer], [place] Start: 1996 PAP TESTING PAP TESTING [facility] Start: 1996 Screening for malign ant neoplasm of cervix [facility] Start: 1994 SHINGRIX VACCINE (1 of 2) CELESTIN GRIX VACCINE (1 of 2) [facility] Start: 1994 Urine microalbumin profile [facility] Start: 1993 Adult BMI Follow Up Plan Adult BMI Follow Up Plan [facility] Start: 1993 Diabetic foot examination Diabetic F oot Exam [facility] Start: 1993 HIV SCREENING HIV SCREENING [facility] Start: 1993 HIV screening HIV Screening [facility] Start: 1990 [facility] [place] [place] [facility]: 1990 HIV screening HIV screen [facility] [place] [place] Start: 1981 PNEUMOCOCCAL (1 - PCV) PNEUMOCOCCAL (1 - PCV) [facility] Start: 1981 Pneumococcal vaccination [facility] Start: 1975 Hepatitis C screening Hepatitis C sc [facility] Work Phone: End: 11-24-2023 EMG(NEURO/NI) EMG(NEURO/NI) EMG Routine Fatigue, unspecified type Elevated aldolase level Generalized weakness 1 Occurrences starting 11/23/2022 until 11/24/2023 [facility] Work Phone: Comment on above: 1 Occurrences starti ng 11/23/2022 until 11/24/2023 End: 10-12-2024 [facility] - OU - Both Eyes [facility] - OU - Both Eyes Ophthalmology Routine High risk medication use 1 Occurrences starting 10/13/2023 until 10/12/2024 [facility] Work Phone: Comment on above: 1 Occurrences starti ng 10/13/2023 until 10/12/2024 [facility] - OU - Both Eyes [facility] - OU - Both Eyes Ophthalmology Routine High risk medication use 10/13/2023 1:11 PM EDT [facility] End: 12-16-2024 MR Brain WO and W contrast IV MRI BRAIN WO/W IVCON Radiology Routine Demyelinating disease of central nervous system (HCC) 1 Occurrences starting 11/17/2023 until 12/16/2024 [facility] Comment on above: 1 Occurrences starti ng 11/17/2023 until 12/16/2024 End: 12-16-2024 MR Cervical spine WO and W contrast IV MRI CERVICAL SPINE WO/W IVCON Radiology Routine Demyelinating disease of central nervous system (HCC) 1 Occurrences starting 11/17/2023 until 12/16/2024 [facility] Comment on above: 1 Occurrences starti ng 11/17/2023 until 12/16/2024 End: 10-20-2024 MR Lumbar spine WO contrast MRI LUMBAR SPINE WO IVCON Radiology Routine Spinal stenosis of lumbar region with neurogenic claudication 1 Occurrences starting 09/21/2023 until 10/20/2024 [facility] Work Phone: Comment on above: 1 Occurrences starti ng 09/21/2023 until 10/20/2024 End: 12-16-2024 MR Thoracic spine WO and W contrast IV MRI THORACIC SPINE WO/W IVCON Radiology Routine Demyelinating disease of central nervous system (HCC) 1 Occurrences starting 11/17/2023 until 12/16/2024 [facility] Comment on above: 1 Occurrences starti ng 11/17/2023 until 12/16/2024 End: 12-24-2024 XR Hip - left AP and Lateral XR HIP 2V AP/LAT LEFT (AK,FL,ME,UN) Radiology Routine Pain in left hip Pain in joint, multiple sites 1 Occurrences starting 11/25/2023 until 12/24/2024 [facility] Work Phone: Comment on above: 1 Occurrences starti ng 11/25/2023 until 12/24/2024 End: 10-18-2024 XR Lumbar spine 3 Views XR LUMBAR GENERAL 3V AP/LAT/L5-S1 Radiology Routine Chronic bilateral low back pain without sciatica 1 Occurrences starting 09/19/2023 until 10/18/2024 [facility] Work Phone: Comment on above: 1 Occurrences starti ng 09/19/2023 until 10/18/2024 [facility] Immunizations Immunization Date Immunization Notes Care Provider Fa tesfaye 04-23-2021 influenza virus vacc ine, unspecified formulation Noemi Pham MD Work Phone: [facility] Payers Date Payer Category Payer Self-pay 2021 Unknown MMO MMO [employer] [id number] 2021-Present [phone] [address] [place] [address] PPO [id number] 2021 Unknown [id number] 2021 Medicare [id number] 2021 Unknown [id number] [id number] .[id number] 2020 Unknown [id number] [id number] .[id number] 2015 Unknown [facility] PLAN [facility] xxxxxxxxxxxx 2015-Present [phone] [address] [facility] [place] [address] xxxxxxxxxxxx [id number] .[id number] 2003 Medicaid [place] [employer] MED[place] [id number] 2003-Present [phone] [address] [facility] [place] [address] Medicaid [id number] .[id number] 2003 Medicaid [id number] [id number] .[id number] 2003 Unknown [id number] 1.2.840.076373.1.13.239.2.7.3 .925263.315 1975 Unknown [id number] 2.16.840.1.305684.3.579.2.175 1975 Unknown [id number] 2.16.840.1.293838.3.579.2.175 1975 Unknown [id number] 2.16.840.1.293278.3.579.2.175 1975 Unknown [id number] 2.16.840.1.534545.3.579.2.175 1975 Unknown [id number] 2.16.840.1.291396.3.579.2.176 1975 Unknown [id number] 2.16.840.1.723145.3.579.2.176 1975 Unknown [id number] 2.16.840.1.919949.3.579.2.176 1975 Unknown [id number] 2.16.840.1.758404.3.579.2.128 6 1975 Unknown [id number] 2.16.840.1.963061.3.579.2.128 6 1975 Unknown [id number] 2.16.840.1.549247.3.579.2.128 6 1975 Unknown [id number] 2.16.840.1.861327.3.579.2.128 6 1975 Unknown [id number] 2.16.840.1.388622.3.579.2.128 6 1975 Unknown [id number] 2.16.840.1.700581.3.579.2.128 6 1975 Unknown [id number] 2.16.840.1.626580.3.579.2.128 6 1975 Unknown [id number] 2.16.840.1.374973.3.579.2.128 6 1975 Unknown [id number] 2.16.840.1.623514.3.579.2.128 6 1975 Unknown [id number] 2.16.840.1.787321.3.579.2.128 6 Unknown [id number] 2.16.840.1.886368.3.579.2.531 Unknown Regular Insurance [id number] Social History Date Type Detail Facility Start: 06-18-2018 End: 08-11-2022 Tobacco smoking status UTIS Never smoker [facility] Start: 06-18-2018 End: 08-11-2022 Tobacco use and exposure [facility] Start: 06-18-2018 End: 11-17-2023 Alcohol intake [facility] Start: 08-28-2017 Alcohol Comment [facility] Start: 1975 [facility] Start: 06-18-2018 End: 12-24-2022 Alcohol intake Yes [facility] Start: 12-14-2022 End: 12-24-2022 Exposure to SARS-CoV-2 (event) Not sure [facility] Start: 10-26-2018 History SDOH Alcohol Comment Occasional [facility] Start: 1975 Sex Assigned At Female F [facility] Start: 12-24-2022 End: 01-14-2023 History of Social function [facility] National Score (1-10 0), lower number is lower risk 76 [facility] Start: 08-14-2019 Alcohol Comment occasional [facility] Start: 09-06-2022 Gender identity Identifies as female gender (finding) [facility] Start: 09-06-2022 Sexual orientation Heterosexual (fin ding) [facility] Clinical Notes 10-28-2021 to 11-25-2023 Telephone Encounter - Nish Chavez APRN.CNP - 11/25/2023 7:57 AM EDTTelephone Encounter - Nish Chavez APRN.CNP - 11/25/2023 7:57 AM EDTPatient InstructionsPatient Instructions Note Date & Type Note Facility 11-25-2023 Telephone encounter Note Hip xray order placed Nish Chavez APRN.CNP November 25, 2023 7:58 AM [facility] 11-25-2023 Miscellaneous Notes Hip xray order placed Nish Chavez APRN.CNP November 25, 2023 7:58 AM [facility] patient New patient eval on 11/17/[address] Dickson Dx - neurological symptoms undergoing evaluation No mention of hip pain in note Patient sent mychart message requesting an order for chest x-ray due to hip pain documented in this encounter [facility] 11-25-2023 Telephone encounter Note Ross/Chavez patient New patient eval on 11/17/[address] Dickson Dx - neurological symptoms undergoing evaluation No mention of hip pain in note Patient sent mychart message requesting an order for chest x-ray due to hip pain [facility] 11-24-2023 Telephone encounter Note Notes from last appt on 11/17/23 faxed as per patient's request Mychart sent to patient to notify her [facility] 11-24-2023 Miscellaneous Notes Notes from last appt on 11/17/23 faxed as per patient's request Mychart sent to patient to notify her Lynette is calling Brett Dickson MD today to request office notes from visit to be faxed to [phone] Attn:Janiya. Patient has been identified by name and birthdate. Duration of symptoms: N/A Person calling: self Call patient at: on cell [phone] (home) [phone] (cell) Was an appointment scheduled: No Closing statement: Results or non-symptom based questions: Thank you for calling [facility], your call will be returned within the next business day. Cinthya Nassar documented in this encounter [facility] 11-22-2023 Telephone encounter Note Lynette is calling Brett Dickson MD today to request office notes from visit to be faxed to [phone] Attn:Janiya. Patient has been identified by name and birthdate. Duration of symptoms: N/A Person calling: self Call patient at: on cell [phone] (home) [phone] (cell) Was an appointment scheduled: No Closing statement: Results or non-symptom based questions: Thank you for calling [facility], your call will be returned within the next business day. Cinthya Nassar [facility] 11-21-2023 Telephone encounter Note Patient has been identified by name and date of : Yes, Provider Dr. Pham Date 11/21/2023 Time 3:13pm Type of form: Lab results Form received via: Fax Form has been forwarded to: Provider's desk. Provider name: Dr. Pham and augustin. Brianda Palomares LPN [facility] 11-21-2023 Miscellaneous Notes Patient has been identified by name and date of : Yes, Provider Dr. Pham Date 11/21/2023 Time 3:13pm Type of form: Lab results Form received via: Fax Form has been forwarded to: Provider's desk. Provider name: Dr. Pham and augustin. Brianda Palomares LPN documented in this encounter [facility] 11-18-2023 Telephone encounter Note Letter faxed marked Attention: Lynette Yovanny to fax [phone] as requested. Kaylynn Conn RN [facility] 11-18-2023 Miscellaneous Notes Letter faxed marked Attention: Lynette Hairston to fax [phone] as requested. Kaylynn Conn, RN Letter written Nish Chavez APRN.CNP November 18, 2023 11:58 AM [facility] Call Name of caller : Lynette Hairston Relationship to patient: Self Return call phone number : [phone] Reason for call : Other : Brief description of concern : Patient is calling and stated she just seen you and forgot to ask you for a letter for her work place. She said the letter needs to state she had appt with you today and fax it over to her attention at fax #[phone]. Any questions, please call her. documented in this encounter [facility] 11-18-2023 Telephone encounter Note Letter written Nish Chavez APRN.CNP November 18, 2023 11:58 AM [facility] Work Phone: 11-17-2023 Telephone encounter Note Praveen Call Name of caller : Lynette Hairston Relationship to patient: Self Return call phone number : [phone] Reason for call : Other : Brief description of concern : Patient is calling and stated she just seen you and forgot to ask you for a letter for her work place. She said the letter needs to state she had appt with you today and fax it over to her attention at fax #[phone]. Any questions, please call her. [facility] Work Phone: 11-17-2023 Note HNO ID: [id number] Author: BRETT DICKSON MD Service: ? Author Type: Physician Type: Progress Notes Filed: 11/17/2023 12:50 Note Text: [facility] NEW PATIENT EVALUATION/CONSULTATION Referral source: Cody Hutchins CNP Neurology- [facility] Also followed by: Patient Care Team: Toy Obrien MD as PCP - General (Family Medicine) Lachelle Barton (Gastroenterology) PRINCIPAL NEUROLOGIC DIAGNOSIS: Neurological symptoms undergoing evaluation DISEASE SUMMARY Date of onset: ?2021 Date of diagnosis of MS: tbd Disease course at onset: Relapsing-Remitting Current disease course: Relapsing-Remitting Previous disease therapies: None Current disease therapy: None Most recent MRI brain: 01/2016 Most recent MRI cervical spine: 03/2014 CSF: Not done JCV serology result and date: n/a HISTORY OF ILLNESS: An opinion on this 48 year old right handed female was requested by the referring physician for evaluation regarding possible MS. The patient was accompanied by her daughter. Previous records (physician notes, laboratory reports, and radiology reports) and imaging studies were reviewed and summarized. My recommendations will be communicated back to the patient's physician(s) via electronic medical record and via facsimile. Follow-up is expected to be with me or the referring physician based on results of planned workup. Lynette reports a personal history of neurological signs/ symptoms as follows: Prior to onset trauma, illness, stressor -2021 neck and shoulder stiffness -04/2023 L side of face flushing -3-10/2023 intermittent blurry vision now resolved, lasted a couple weeks -10/2023 toe abduction movements and spasms in her BLE and tingling sensation throughout whole body and left hip pain x1 week- still getting worse. No clear triggers for the movements. She does notice it more at the end of the day. No urge to move them it just happens Current Symptoms: 1. Memory issues 2. Poor balance 3. Movements of toes and spasms of legs 4. Intermittent blurry vision 5. Fatigue 6. Urinary and bowel urgency 7. Pins and needles and tightness when she coughs intensely Neuro-QoL Functions (higher=better functioning) Flowsheet Row Office Visit from 11/17/2023 in [facility] Upper Extremity Domain T Score 43.97 Lower Extremity Domain T Score 40.08 Cognitive Function Domain T Score 42.85 Positive Affect Well Being T Score -- Ability To Participate In Social Roles T Score 39.59 Satisfaction With Social Roles T Score 35.47 Neuro-QoL Symptoms (higher=worse symptoms) Flowsheet Row Office Visit from 11/17/2023 in [facility] Sleep Domain T Score 54.31 Fatigue Domain T Score 60.46 Anxiety Domain T Score 56.44 Depression Domain T Score 46.93 Stigma Domain T Score 57.09 Emotional Behavior Dyscontrol T Score -- PAST HISTORY: has a past medical history of Fibromyalgia, Hypothyroidism, Migraines, POTS (postural orthostatic tachycardia syndrome), Restless leg syndrome, and Rheumatoid arthritis (HCC). has no past surgical history on file. has a current medication list which includes the following prescription(s): rosuvastatin, sumatriptan, zonisamide, enbrel, ondansetron, metoprolol tartrate (short acting), omeprazole, ibuprofen, aripiprazole, buspirone, COMPOUNDED PRESCRIPTION, sertraline, baclofen, iv contrast, iv contrast, iv contrast, ropinirole, hydroxychloroquine, prednisone, methylprednisolone, magnesium oxide, levothyroxine, topiramate, and wegovy. Social History Tobacco Use Smoking status: Never Smokeless tobacco: Never family history includes Systemic Lupus Erythematosus in her daughter and mother. PHYSICAL EXAM: BP 136/91 Pulse 104 Wt 113.5 kg (250 lb 3.6 oz) BMI 40.39 kg/m? Multiple Sclerosis Performance Test Flowsheet Row Office Visit from 11/17/2023 in [facility] Processing Speed Total Number Correct 53 Low-contrast letter acuity test-2.5 percent opacity 30 Low-contrast letter acuity test-100 percent opacity 60 Dominant hand Right hand MDT Left Hand Time 28.46 MDT Right Hand Time 29.82 Walking Speed Test (25 feet) 7.56 Hair, skin, nails, and joints were normal. Respirations unlabored on room air. Extremities warm. There was no peripheral edema. +Malden hump on back on neck The patient was alert and oriented to person, place, and time. Speech was fluent without dysarthria. Receptive and expressive language was intact during the conversation of the encounter. Attention remained intact throughout the encounter. Affect was normal. The patient did not appear depressed. Visual acuity 20/20 OD, 20/20 OS, with correction. Visual mehta were full to confrontation. Pupils were 3 mm and briskly reactive OU without a relative afferent pupillary defect. Funduscopic examination was normal without disc edema, erythema, or atrophy but notes some pain looking all the way to the side Ocular ductions were full (more content not included)... [facility] 11-17-2023 Instructions Brett Dickson MD - 11/17/2023 10:16 AM EDT It was nice to meet you today. Given your exam with muscle tightness, jumpy reflexes and your description of symptoms I think there may be something wrong with your spinal cord particularly in your neck which could be from a disc out of place, MS, lupus, or a number of other possibilities. To investigate further we will do MRIs and blood work and then regroup. To help you feel better in the interim I will have you try baclofen. documented in this encounter [facility] 11-17-2023 History of Present illness Narrative Images from the original note were not included. [facility] NEW PATIENT EVALUATION/CONSULTATION Referral source: Cody Hutchins CNP Neurology- [facility] Also followed by: Patient Care Team: Toy Obrien MD as PCP - General (Family Medicine) Lachelle Barton (Gastroenterology) PRINCIPAL NEUROLOGIC DIAGNOSIS: Neurological symptoms undergoing evaluation DISEASE SUMMARY Date of onset: ?2021 Date of diagnosis of MS: tbd Disease course at onset: Relapsing-Remitting Current disease course: Relapsing-Remitting Previous disease therapies: None Current disease therapy: None Most recent MRI brain: 01/2016 Most recent MRI cervical spine: 03/2014 CSF: Not done JCV serology result and date: n/a HISTORY OF ILLNESS: An opinion on this 48 year old right handed female was requested by the referring physician for evaluation regarding possible MS. The patient was accompanied by her daughter. Previous records (physician notes, laboratory reports, and radiology reports) and imaging studies were reviewed and summarized. My recommendations will be communicated back to the patient's physician(s) via electronic medical record and via facsimile. Follow-up is expected to be with me or the referring physician based on results of planned workup. Lynette reports a personal history of neurological signs/ symptoms as follows: Prior to onset trauma, illness, stressor -2021 neck and shoulder stiffness -04/2023 L side of face flushing -3-10/2023 intermittent blurry vision now resolved, lasted a couple weeks -10/2023 toe abduction movements and spasms in her BLE and tingling sensation throughout whole body and left hip pain x1 week- still getting worse. No clear triggers for the movements. She does notice it more at the end of the day. No urge to move them it just happens Current Symptoms: 1. Memory issues 2. Poor balance 3. Movements of toes and spasms of legs 4. Intermittent blurry vision 5. Fatigue 6. Urinary and bowel urgency 7. Pins and needles and tightness when she coughs intensely Neuro-QoL Functions (higher=better functioning) Flowsheet [facility] Office Visit from 11/17/2023 in [facility] Upper Extremity Domain T Score 43.97 Lower Extremity Domain T Score 40.08 Cognitive Function Domain T Score 42.85 Positive Affect Well Being T Score -- Ability To Participate In Social Roles T Score 39.59 Satisfaction With Social Roles T Score 35.47 Neuro-QoL Symptoms (higher=worse symptoms) Flowsheet [facility] Office Visit from 11/17/2023 in [facility] Sleep Domain T Score 54.31 Fatigue Domain T Score 60.46 Anxiety Domain T Score 56.44 Depression Domain T Score 46.93 Stigma Domain T Score 57.09 Emotional Behavior Dyscontrol T Score -- PAST HISTORY: has a past medical history of Fibromyalgia, Hypothyroidism, Migraines, POTS (postural orthostatic tachycardia syndrome), Restless leg syndrome, and Rheumatoid arthritis (HCC). has no past surgical history on file. has a current medication list which includes the following prescription(s): rosuvastatin, sumatriptan, zonisamide, enbrel, ondansetron, metoprolol tartrate (short acting), omeprazole, ibuprofen, aripiprazole, buspirone, COMPOUNDED PRESCRIPTION, sertraline, baclofen, iv contrast, iv contrast, iv contrast, ropinirole, hydroxychloroquine, prednisone, methylprednisolone, magnesium oxide, levothyroxine, topiramate, and wegovy. Social History Tobacco Use Smoking status: Never Smokeless tobacco: Never family history includes Systemic Lupus Erythematosus in her daughter and mother. PHYSICAL EXAM: BP 136/91 Pulse 104 Wt 113.5 kg (250 lb 3.6 oz) BMI 40.39 kg/m Multiple Sclerosis Performance Test Flowsheet Row Office Visit from 11/17/2023 in [facility] Processing Speed Total Number Correct 53 Low-contrast letter acuity test-2.5 percent opacity 30 Low-contrast letter acuity test-100 percent opacity 60 Dominant hand Right hand MDT Left Hand Time 28.46 MDT Right Hand Time 29.82 Walking Speed Test (25 feet) 7.56 Hair, skin, nails, and joints were normal. Respirations unlabored on room air. Extremities warm. There was no peripheral edema. +Malden hump on back on neck The patient was alert and oriented to person, place, and time. Speech was fluent without dysarthria. Receptive and expressive language was intact during the conversation of the encounter. Attention remained intact throughout the encounter. Affect was normal. The patient did not appear depressed. Visual acuity 20/20 OD, 20/20 OS, with correction. Visual mehta were full to confrontation. Pupils were 3 mm and briskly reactive OU without a relative afferent pupillary defect. Funduscopic examination was normal without disc edema, erythema, or atrophy but notes some pain looking all the way to the side Ocular ductions were full without nystagmus or ataxia. Facial sensation was normal. Muscles of mastication and facial expression moved normally. Hearing was intact to finger rub bilaterally. Shoulder shrug was equal. Tongue movements were normal. There was no dysarthria. Motor Examination: Right Upper Extremity: Left Upper Extremity: Deltoid 5/5 Deltoid 5/5 Biceps 5/5 Biceps 5/5 Triceps 5/5 Triceps 5/5 Wrist extensors 5/5 Wrist extensors 5/5 Finger extensors 5/5 Finger extensors 5/5 Finger flexors 4/5 Finger flexors 5/5 Dorsal interossei 5/5 Dorsal interossei 5/5 Tone (Ry scale) 1 Tone (Ry scale) 0 Right Lower Extremity: Left Lower Extremity: Hip flexors 5/5 Hip flexors 5/5 Knee flexors 4/5 Knee flexors 4/5 Knee extensors 5/5 Knee extensors 5/5 Dorsiflexors 5/5 Dorsiflexors 5/5 Plantarflexors 5/5 Plantarflexors 5/5 Tone (Ry scale) 2 Tone (Ry scale) 2 Reflexes: brachioradialis +++ brachioradialis +++ biceps +++ biceps +++ patellar ++ patellar ++ Achilles ++ Achilles ++ Martinez's sign present Martinez's sign present clonus absent clonus absent plantar response down plantar response down Coordination testing in the arms and legs was performed including [id number], heel to celestin, rapid-alternating, and fine movements. Rapid movements were smooth with good ernie and there was no dysmetria or ataxia. No signs of cerebellar dysfunction. Sensory examination: Light touch: Normal all four extremities. Vibration: Normal bilateral lower extremities. Proprioception: 2/3 RLE and 1/3 in LLE Primary gait was unremarkable including normal base, stride length, arm swing and turning performed without use of an assistive device. Tandem gait was performed without difficulty. REVIEW OF RECORDS: 11/11/23 outside neuro note- follows for long-standing headache- migraine type but now paresthesia and muscle spasms Labs: 06/2023 ESR, CRP, CK wnl 12/2022 RF, CCP ANURAG wnl REVIEW OF IMAGING STUDIES: 02/13/16 MRI Brain WO report- Normal MRI of the brain. 04/12/14 MRI Brain W/WO report- Negative contrasted MRI of the brain. No evidence of acute pathology or demyelinating disease. 04/12/14 MRI Cervical Spine WO report- Minor/early degenerative disease at the C4-C5 level. Otherwise, negative study. 01/28/12 MRI Brain and Cervical Spine personal review- unremarkable ASSESSMENT: Ms. Hairston is a 48y/o F who is presenting for several years of mostly relapsing-remitting neurological symptoms which in the last couple of weeks have included BLE spasms, involuntary movements of her toes, and worsening bowel/ bladder urgency and on exam she does have increased tone, hyperreflexia, and some weakness consistent with myelopathy. We discussed this could be mechanical, inflammation/ autoimmune (e.g., MS, Lupus or others), metabolic or others. However, given her concomitant recent episode of few weeks of bilateral blurry vision with pain with eye movements will also do MRI Brain as part of demyelinating disease evaluation. PLAN: -- MS mimic labs -- cortisol random, discuss with PCP about buffalo hump (notes recurrent intermittent steroid scripts being given) -- MRI Brain/ Cervical/ Thoracic W/WO Office Visit on 11/17/23 MRI BRAIN WO/W IVCON MRI CERVICAL SPINE WO/W IVCON MRI THORACIC SPINE WO/W IVCON ANTI LEVY ID COPPER BLOOD C-REACTIVE PROTEIN DNA AB DS + CONF BLD SEDIMENTATION RATE, WESTERGREN LYME AB LATE >30 DAYS SYMPTOMS THYROID STIMULATING HORMONE VITAMIN B12 VITAMIN D 25 HYDROXY CRACKER DOUGH MIXER DEMYELINATING DISEASE EVALUATION, SERUM CORTISOL, SERUM The chart was reviewed for possible participation in the following studies: None I spent a total of 56 minutes on the date of the service which included preparing to see the patient, [id number] patient care, completing clinical documentation, obtaining and/or reviewing separately obtained history, performing a medically appropriate examination, counseling and educating the patient/family/caregiver, ordering medications, tests, or procedures, independently interpreting results (not separately reported), and care coordination (not separately reported). Brett Dickson MD [facility] for Multiple Sclerosis documented in this encounter [facility] 11-14-2023 Telephone encounter Note LVM for pt letting know labs are in the system. [facility] 11-14-2023 Miscellaneous Notes LVM for pt letting know labs are in the system. Labs ordered for hair loss, please let paitent know. Noemi Pham MD Lynette is calling Noemi Pham MD today with concern regarding hair loss. Patient is concerned that she has had clumps of hair fall out x1 month. Patient asking if labs can been done for the hair loss? Patient offered to speak with nurse triage, and was unable to remain on the line and requested to receive a call back. Patient has been identified by name and birthdate. Duration of symptoms: N/A Person calling: self Call patient at: at home and on cell [phone] (home) [phone] (cell) Was an appointment scheduled: No Closing statement: Symptom Call: Thank you for calling [facility], your call is very important. A nurse will call in approximately 2-4 hours during business hours. If this is an emergency, please contact 911. Queenie Richardson documented in this encounter [facility] 11-14-2023 Telephone encounter Note Labs ordered for hair loss, please let joseph know. Noemi Pham MD [facility] 11-14-2023 Telephone encounter Note Lynette is calling Noemi Pham MD today with concern regarding hair loss. Patient is concerned that she has had clumps of hair fall out x1 month. Patient asking if labs can been done for the hair loss? Patient offered to speak with nurse triage, and was unable to remain on the line and requested to receive a call back. Patient has been identified by name and birthdate. Duration of symptoms: N/A Person calling: self Call patient at: at home and on cell [phone] (home) [phone] (cell) Was an appointment scheduled: No Closing statement: Symptom Call: Thank you for calling [facility], your call is very important. A nurse will call in approximately 2-4 hours during business hours. If this is an emergency, please contact 911. Queenie Richardson [facility] 11-11-2023 Note HNO ID: [id number] Author: LIZ CONNOLLY MD Service: ? Author Type: Physician Type: Progress Notes Filed: 11/22/2023 10:34 Note Text: ESTABLISHED PATIENT DISTANCE HEALTH VISIT Encounter completed via virtual visit (audio and video) using [employer]-based Zoom software Provider location during distance health encounter: [facility] Patient location during distance health encounter: Home ======== I have communicated my name and active licensure. The patient's identity and physical location were verified at the time of this visit. Either the patient (as in this case) or their legal petroleum products sales representative has been informed of the risks and benefits of, and alternatives to treatment through a remote evaluation and consents to proceed with the evaluation remotely. ======== Date of last clinic visit : 12/24/2022 Current neuromuscular medicine diagnosis(es): diffuse/multifocal myalgias (previous suspicion for myofascial pain dysfunction syndrome). Subjective/Interval developments: Since LCV she says she continues to have diffuse/multifocal pain and stiffness including in several joints and apparently has been assessed by rheumatology ([facility]) as having borderline lupus, possible PMR. There are also areas of skin changes including tendency for her face to become plethoric, and she is pending a dermal biopsy. She also follows with her local neurologist (Yvonne Hutchins CNP) in [place], [place] with a recent follow-up note including a diagnosis of RLS based on more recent symptoms the patient describes as if my toes are moving on their own . There seems to be some proximal spread of similar restlessness-type perceptions, apparently even into core areas. Most recently she has been concerned about what seems to be instantaneous pins and needle sensations in her torso if she were to sneeze or cough. This may be somewhat less prominent over the past couple weeks, but she has read about these symptoms possibly being seen in the context of others with MS, and specifically requests a neurological opinion in that regard. To this end, she also mentions that she had some recent vision blurring (+/- with eye pain on eye movements) and has some ongoing frequency and urgency with bowel and bladder (may actually have some leakage at times). No clear interval history of whiplash or similar cervical spine area trauma. She mentions struggling with CPAP , and this seem to be impacting ongoing headaches, especially those with a.m. predominance (says following with pulmonary in this regard as well). Objective: (what is observable/audible via web cam AND jadiel, if applicable) Appears to be with WNL mood and affect (+/- anxious disposition); facies appear somewhat plethoric, but facial movements symmetrical, EOMs appear intact and conjugate, no observable ptosis. Speech and voice WNL. Interval studies review: Latest Ref Rng 01/14/2023 06/24/2023 ANURAG Negative Negative ANURAG Scr Qual Negative Negative WSR 0 - 20 mm/hr 16 23 (H) CRP <0.9 mg/dL 0.6 0.6 Rheumatoid Factor <16 IU/mL >650 (H) CK 42 - 196 U/L 110 119 Aldolase 1.5 - 8.1 U/L 8.8 (H) 11.2 (H) Legend: (H) High IMPRESSION: Ms. Lynette Prince is a 48 year old RH F with a PMHx inclusive of RA, fibromyalgia, POTS, chronic migraines being seen in follow-up ([facility] 12/24/2022) RE: multifocal/diffuse myalgia and generalized fatigue, mostly since ~early 2018. Previously, benign fasciculations suspected as were other features likely attributable to nonrestorative sleep (diagnosed with moderate MARINE more recently, nonadherent with CPAP)- we noted very low suspicion for myopathy. Her EMG did not reveal any findings to suggest otherwise. Furthermore, recent muscle enzyme labs continue to show normal CKs (despite aldolase which may be variably beyond upper limit). Pt's profound vitamin D deficiency and untreated hypothyroidism were also considered likely co-contributors to chronic fatigue +/-myalgia issues. Further lab work pursued including MG antibody screening essentially unrevealing. Exam at [facility] again without unequivocal neuromuscular deficits or neurological focality. The marked myalgic tender points with otherwise innocuous pressure to multiple spots in both upper and lower limbs, also raise the suspicion for an unremitted central sensitization/myofascial syndrome as can be seen with fibromyalgia (which may explain why warmth is symptomatically beneficial as well). Additional recent polyarthralgia and joint swelling (hand/fingers) and facial rash in sun-exposed areas (with daughter's recent diagnosis of SLE) raises concern for forme fruste connective tissue disease (says per rheumatology borderline lupus, PMR?). As previously noted, there may also be some transformed migraine equivalent features manifesting in head/face symptoms reported. (more content not included)... [facility] 11-11-2023 History of Present illness Narrative ESTABLISHED PATIENT DISTANCE HEALTH VISIT Encounter completed via virtual visit (audio and video) using [employer]based [employer] software Provider location during distance health encounter: [facility] Patient location during distance health encounter: Home ======== I have communicated my name and active licensure. The patient's identity and physical location were verified at the time of this visit. Either the patient (as in this case) or their legal petroleum products sales representative has been informed of the risks and benefits of, and alternatives to treatment through a remote evaluation and consents to proceed with the evaluation remotely. ======== Date of last clinic visit : 12/24/2022 Current neuromuscular medicine diagnosis(es): diffuse/multifocal myalgias (previous suspicion for myofascial pain dysfunction syndrome). Subjective/Interval developments: Since LCV she says she continues to have diffuse/multifocal pain and stiffness including in several joints and apparently has been assessed by rheumatology ([facility]) as having borderline lupus, possible PMR. There are also areas of skin changes including tendency for her face to become plethoric, and she is pending a dermal biopsy. She also follows with her local neurologist (Yvonne Hutchins CNP) in [place], [place] with a recent follow-up note including a diagnosis of RLS based on more recent symptoms the patient describes as if my toes are moving on their own . There seems to be some proximal spread of similar restlessness-type perceptions, apparently even into core areas. Most recently she has been concerned about what seems to be instantaneous pins and needle sensations in her torso if she were to sneeze or cough. This may be somewhat less prominent over the past couple weeks, but she has read about these symptoms possibly being seen in the context of others with MS, and specifically requests a neurological opinion in that regard. To this end, she also mentions that she had some recent vision blurring (+/- with eye pain on eye movements) and has some ongoing frequency and urgency with bowel and bladder (may actually have some leakage at times). No clear interval history of whiplash or similar cervical spine area trauma. She mentions struggling with CPAP , and this seem to be impacting ongoing headaches, especially those with a.m. predominance (says following with pulmonary in this regard as well). Objective: (what is observable/audible via web cam & jadiel, if applicable) Appears to be with WNL mood and affect (+/- anxious disposition); facies appear somewhat plethoric, but facial movements symmetrical, EOMs appear intact and conjugate, no observable ptosis. Speech and voice WNL. Interval studies review: Latest Ref Rng 01/14/2023 06/24/2023 ANURAG Negative Negative ANURAG Scr Qual Negative Negative WSR 0 - 20 mm/hr 16 23 (H) CRP <0.9 mg/dL 0.6 0.6 Rheumatoid Factor <16 IU/mL >650 (H) CK 42 - 196 U/L 110 119 Aldolase 1.5 - 8.1 U/L 8.8 (H) 11.2 (H) Legend: (H) High IMPRESSION: Ms. Lynette Prince is a 48 year old RH F with a PMHx inclusive of RA, fibromyalgia, POTS, chronic migraines being seen in follow-up ([facility] 12/24/2022) RE: multifocal/diffuse myalgia and generalized fatigue, mostly since ~early 2019. Previously, benign fasciculations suspected as were other features likely attributable to nonrestorative sleep (diagnosed with moderate MARINE more recently, nonadherent with CPAP)- we noted very low suspicion for myopathy. Her EMG did not reveal any findings to suggest otherwise. Furthermore, recent muscle enzyme labs continue to show normal CKs (despite aldolase which may be variably beyond upper limit). Pt's profound vitamin D deficiency and untreated hypothyroidism were also considered likely co-contributors to chronic fatigue +/-myalgia issues. Further lab work pursued including MG antibody screening essentially unrevealing. Exam at [facility] again without unequivocal neuromuscular deficits or neurological focality. The marked myalgic tender points with otherwise innocuous pressure to multiple spots in both upper and lower limbs, also raise the suspicion for an unremitted central sensitization/myofascial syndrome as can be seen with fibromyalgia (which may explain why warmth is symptomatically beneficial as well). Additional recent polyarthralgia and joint swelling (hand/fingers) and facial rash in sun-exposed areas (with daughter's recent diagnosis of SLE) raises concern for forme fruste connective tissue disease (says per rheumatology borderline lupus, PMR?). As previously noted, there may also be some transformed migraine equivalent features manifesting in head/face symptoms reported. Since [facility], restless legs-type symptoms in LEs (with some proximal spread), as well as some concern for Lhermitte-type phenomenon among other transitory symptoms (including blurred vision +/- eye pain with eye movements, bowel/bladder symptoms) being the basis for the request to have an MS specialist input at this time. PLAN/RECOMMENDATIONS: - The impression above as well as the plan as outlined below were extensively discussed with the patient who voiced understanding. All questions were answered to her stated satisfaction. -Consult to [facility] neurology RE: basis for MS concerns as noted above -Consult to movement disorder neurology/ [facility] RE: RLS-type symptoms in the LEs (patient says she has abnormal involuntary movements of the toes, so has video capture to share at that appointment) -We will defer to rheumatology regarding fibromyalgia/myofascial pain dysfunction syndrome (+RA, newer CTD concerns) aspects, but again may benefit from pain management intervention as well (may benefit from having this done more locally, so PCP carbon copied on this). -Counseled on the importance of adherence with CPAP for MARINE, including beneficial effects on generalized fatigue and myalgia, but also reduction in risk for stroke and CA. Again urged to follow-up with sleep medicine provider CHELSEY Hutchins in [place]. -Follow with PCP to ensure vitamin D level is steadily normalized, with supplementation as needed going forward. Also follow-up with PCP and/or endocrinology regarding hypothyroidism/thyroid dysfunction. -Continue to recommend optimizing the following measures that may provide some symptomatic benefit for muscle cramps and/or twitching: - Adequate oral clear fluid intake to maintain optimal hydration (about 2.5 liters, or around 8-10 standard glasses per day) - Avoidance of caffeine (from energy drinks, coffee, tea, chocolate etc.) - Trial of tonic water: About 1 glass, twice daily - Magnesium Oxide (available [id number]) 400 mg by mouth twice daily, as needed (prescription issued today)-this may cross-cover migraine equivalent symptoms management. - Gentle muscle stretching routine, especially before bedtime (see below) Description of the stretching exercises (See details at http://www.sciencedirect.com/scie nce/article/pii/F5497745463614483 ) CALF STRETCH IN STANDING Starting position: Standing facing a wall with the elbows extended and both palms on the wall at chest height. One leg is forward with the knee flexed and the other leg is back with the knee extended. Both feet are in full contact with the floor. Motion to apply stretch: Flex the front knee so that the trunk moves forward, keeping the trunk straight and the heels in contact with the floor. HAMSTRING STRETCH IN STANDING Starting position: Standing facing a chair that is placed against a wall. Place one heel on the chair with the knee of that leg fully extended. Motion to apply stretch: Flex at the hips so that the trunk tilts forward, keeping the trunk straight. The foot on the floor should maintain full contact and the other heel remains in contact with the chair. HAMSTRING AND CALF STRETCH IN SITTING Starting position: Sit on the floor or a firm bed with both legs extended. Grasp toes with both hands. Motion to apply stretch: Flex at the hips so that the trunk tilts forward, keeping the trunk as straight as possible. Dorsiflex (foot curl up) at the ankles. -As discussed with the patient, no compelling indication for further neurodiagnostics (including another repeat NCS + EMG) at this juncture. - NM clinic f/u prn. To aid with communication, patients (and primary care physicians) can sign up for [employer] (or [employer]), which allows online appointment scheduling, transmission of labs results and chart notes, and secure email communication. To establish either account, visit [email or web address]. The duration of this [facility] health appointment visit was 30 minutes (2:35-3:05 PM). At least 50% of this time was spent in counseling, explanation of diagnosis, planning of further management, and coordination of care. A further 20 mins were spent with documentation comprising this note. Liz Connolly MD Staff, [facility] [place] Electronically signed November 11, 2023 3:13 PM Original referring provider: Noemi Pham MD Rheumatology (Via K[employer] inbox) Primary care physician: Toy Obrien [facility] [place] [address] documented in this encounter [facility] 11-03-2023 Miscellaneous Notes [facility] CaseId:[id number];Status:Approved;R eview Type:Prior Auth;Coverage Start Date:10/04/2023;Coverage End Date:11/02/2024 documented in this encounter [facility] 10-14-2023 Note Right Eye Quality was good. [...] Gabriela Jane 10/14/23 documented in this encounter [facility] 09-29-2023 Miscellaneous Notes Denial paperwork received. Placed on Dr. Pham's desk for review. documented in this encounter [facility] 09-26-2023 Miscellaneous Notes Office notes faxed to [facility] per patient request. documented in this encounter [facility] 09-23-2023 Miscellaneous Notes MRI faxed via Kobo. documented in this encounter [facility] 09-22-2023 Miscellaneous Notes Received back with signature from Dr. Pham and faxed to [phone] per Patients request. Printed and placed on Dr. Pham's desk for signature. Patient is calling today to request her MRI of the Lumbar spine be printed and signed and faxed over to [facility] at: [phone]. Please call and advise when this is done so she can get this scheduled. Patient has been identified by name and birthdate. Duration of symptoms: N/A Person calling: self Call patient at: at home [phone] (home) [phone] (cell) Was an appointment scheduled: No Closing statement: Results or non-symptom based questions: Thank you for calling [facility], your call will be returned within the next business day. Abby Nassar documented in this encounter [facility] 09-21-2023 Miscellaneous Notes Order for MRI of lumbar spine placed, please call patient to schedule. Noemi Pham MD documented in this encounter [facility] 09-21-2023 Miscellaneous Notes Received fax from [facility]. X-ray results XR lumbar spine. One copy given to Dr. Pham and one copy sent to scanning documented in this encounter [facility] 09-20-2023 Miscellaneous Notes Faxed x-ray orders to both fax numbers as requested by patient. Faxed via Kobo. Patient called to check on status regarding fax. Also requested the order to be faxed to [phone]. Please call patient once order is faxed. Called and spoke with pt. She states it is the R-Hip. She needs us to fax orders to [facility] [phone]. Yes I can order xray of hip [...] for any orders to be faxed to [facility] documented in this encounter [facility] 09-02-2023 History of Present illness Narrative Lynette [...] of stress. 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 Past Medical History: Diagnosis Date Anxiety Asthma Autoimmune disease ([facility]) 09/26/2019 Chronic rheumatic arthritis ([facility]) Depression Diabetes mellitus ([facility]) Fibromyalgia GERD (gastroesophageal reflux disease) HLD (hyperlipidemia) HTN (hypertension) HTN (hypertension) 09/22/2021 Hypothyroidism Migraine Moderate mitral regurgitation Obstructive sleep apnea syndrome 02/12/2020 POTS (postural orthostatic tachycardia syndrome) RA (rheumatoid arthritis) ([facility]) Syncope TOS (thoracic outlet syndrome) No data recorded No data recorded No data recorded Past Surgical History: Procedure Laterality Date ADENOIDECTOMY APPENDECTOMY BLADDER SUSPENSION Cardiac catheterization - CORS + LV GRAM/PRESS (02800) Left 10/08/2021 Performed by Ana María Plasencia MD at [facility] CHOLECYSTECTOMY ENDOMETRIAL BIOPSY HYSTERECTOMY [...] - POCT EKG 2. Coronary artery vasospasm ([facility]) 3. Intermittent palpitations Assessment: Coronary vasospasm; [facility] 09/2021: Minimal CAD, spasm in the [...] OBRIEN MD Referring Physician: Toy Obrien MD [facility] [place] [address] Referral and perts faxed to Pulmonology . documented in this encounter [facility] 09-01-2023 Miscellaneous Notes Left message for patient to remind them to bring their most current medication list with them to their appointment. documented in this encounter [facility] 09-01-2023 Telephone encounter Note Left message for patient to remind them to bring their most current medication list with them to their appointment. [facility] 08-05-2023 History of Present illness Narrative [...] Norflex does not help. She sees a product/device technologist for rheumatoid arthritis (Plaquenil) and fibromyalgia. Sleep/Social [...] muscles. She sees Conrad Garcia DC in [place] for her care specialist. She would like to start a preventative [...] History: Diagnosis Date Anxiety Asthma Autoimmune disease ([facility]) 09/26/2019 Chronic rheumatic arthritis ([facility]) Depression Diabetes mellitus ([facility]) Fibromyalgia GERD (gastroesophageal reflux disease) HLD (hyperlipidemia) HTN (hypertension) HTN (hypertension) 09/22/2021 Hypothyroidism Migraine Moderate mitral regurgitation Obstructive sleep apnea syndrome 02/12/2020 POTS (postural orthostatic tachycardia syndrome) RA (rheumatoid arthritis) ([facility]) Syncope TOS (thoracic outlet syndrome) Past Surgical History: Procedure Laterality Date ADENOIDECTOMY APPENDECTOMY BLADDER SUSPENSION Cardiac catheterization - CORS + LV GRAM/PRESS (57203) Left 10/08/2021 Performed by Ana María Plasencia MD at [facility] CHOLECYSTECTOMY ENDOMETRIAL BIOPSY HYSTERECTOMY [...] muscles. She sees Conrad Garcia DC in [place] for her care specialist. She would like to start a preventative [...] procedures Referring and communicating with other health healthcare prof (not separately reported) Documenting clinical information in the electronic or other health record Care coordination (not separately reported) - Cody Hutchins, SAE, CHIEF RESOURCE OFFICER-ASSEMBLY TECHNICIAN 08/05/23 12:01 PM ME[facility] Corona 08/05/23 1202 documented in this encounter [facility] 08-05-2023 Instructions MEI Corona - 08/05/2023 11:30 [...] --exercise bicycle pedals documented in this encounter [facility] 08-03-2023 Miscellaneous Notes Patient contacted our office requesting a sooner appt. Patient just started a new job and is off every other Tuesday and she is off this Tuesday. [employer] Faculty Member looked and there are no appts available [...] can add 100 mg in the morning. Natural [employer] Faculty Member called pt. And left a message for her to call the office back to discuss her medication dosage question. Received call today 08/04/23 9:22 from patient who is requesting a call back in regard to previous message. Please call back and advise, callback#: [phone]. Natural [employer] Faculty Member spoke with pt. Natural Resources Faculty Member told pt about the med dosage per Cody Hutchins and pt stated she understood. Pt also stated she is in so much pain asking for a migraine cocktail so she was added to schedule tomorrow 08/05/23. documented in this encounter [facility] 08-03-2023 Telephone encounter Note Patient contacted our office requesting a sooner appt. Patient just started a new job and is off every other Tuesday and she is off this Tuesday. Natural Resources Faculty Member looked and there are no appts available [...] get her a sooner appt. Please advise. [facility] 08-03-2023 Telephone encounter Note Meron: when you are doing reminder calls for 08/05/2023, if anyone wants to cancel, please contact Lynette and put her on the schedule Clinical: If she is taking 100 mg of zonisamide each evening, she can increase her dose to 200 mg (two of the 100 mg capsules) each evening. [facility] 08-03-2023 Telephone encounter Note Patient is already taking 200 mg of the Zonisamide nightly. Please advise. [facility]23 Telephone encounter Note She can add 100 mg in the morning. [facility] 08-03-2023 Telephone encounter Note Natural Resources Faculty Member called pt. And left a message for her to call the office back to discuss her medication dosage question. [facility] 08-03-2023 Telephone encounter Note Received call today 08/04/23 9:22 from patient who is requesting a call back in regard to previous message. Please call back and advise, callback#: [phone]. [facility] 08-03-2023 Telephone encounter Note Natural Resources Faculty Member spoke with pt. Natural Resources Faculty Member told pt about the med dosage per Cody Hutchins and pt stated she understood. Pt also stated she is in so much pain asking for a migraine cocktail so she was added to schedule tomorrow 08/05/23. [facility] 07-21-2023 Miscellaneous Notes 1) When did [...] requesting a call back to further discuss [phone]. Thank you so much She can increase the zonisamide to 200 mg (2 of the 100 mg capsules) each evening. Patient returned phone call. Natural Resources Faculty Member informed her of Cody Hutchins's message below. She voiced understanding. documented in this encounter [facility] 07-21-2023 Telephone encounter Note 1) When [...] requesting a call back to further discuss [phone]. Thank you so much [facility] 07-21-2023 Telephone encounter Note She can increase the zonisamide to 200 mg (2 of the 100 mg capsules) each evening. [facility] Telephone encounter Note Patient returned phone call. Natural Resources Faculty Member informed her of Cody Hutchins's message below. She voiced understanding. [facility] 07-13-2023 Evaluation note Encounter Date Diagnosis [...] unspecified otitis media type (ICD-10 - H66.91) [employer] Other 12-01-2023 NoteHNO ID: [id number] Author: Chato Chacko RT(R) Service: Radiology Author [...] RT(R) June 24, 2023 12:47 [id number] NoteHNO ID: [id number] Author: Noemi Pham MD Service: ? Author [...] bursa injection Informed Consent Consent Obtained: Verbal [place] Protocol A moment to CARE was completed. [...] F/U: 6m Check following: -none Noemi Pham, [facility]12-01-2023 History of Present illness Narrative* Chato [...] bursa injection Informed Consent Consent Obtained: Verbal [place] Protocol A moment to CARE was completed. [...] May, Right elbow pain (ICD-10 - M25.521) [employer] Other 10-19-2023 Miscellaneous Notes* Telephone Encounter - Allison York OCCA - 05/12/2023 1:29 PM EDT Faxed [facility], patient is no longer on medication * Telephone Encounter - Minh Mosqueda - 05/12/2023 1:16 PM EDT Ashwini from [employer] is calling Noemi Pham MD today to clarify medication. When they were filling the enbrel, it flagged that the patient has a thrombocytopenia diagnosis. They need to clarify that the provider is aware. They cannot send the medication until they get that clarification. [phone] Patient has been identified by name and birthdate. Duration of symptoms: N/A Person calling: pharmacy: [facility] Call patient at: on cell [phone] (home) [phone] (cell) Was an appointment scheduled: No Closing statement: Results or non-symptom based questions: Thank you for calling [facility], your call will be returned within the next business day. Minh Mosqueda documented in this encounterOhio [facility] [...] Dr. Pham's request * Telephone Encounter - Neomi Pham MD - 01/26/2023 1:45 PM EDT Please mail her lab order for LEVY panel. Noemi Pham MD documented in this encounterOhio [facility] System06-23-2023 NoteHNO ID: [id number] Author: Noemi Pham MD Service: ? Author [...] F/U: 6m Check following: -none Noemi Pham, [facility]06-21-2023 Miscellaneous Notes* Telephone Encounter - Noemi [...] 365 Days Visit Type Date Time Department [facility] 01/14/2023 11:00 AM [facility] Last Ophthalmology Check for Plaquenil [...] this encounterOhio State Health System06-02-2023 NoteHNO ID: [id number] Author: Liz Connolly MD Service: ? Author Type: Physician Type: Progress Notes Filed: 01/04/2023 10:43 AM Note Text: S90 [facility] [place] [facility] Note- Established patient Provider: Liz Connolly MD [...] that she has been following with her patient resource specialist with every 6 monthly appointments to monitor [...] neck, respiratory, cardiovascular, GI, (more content not included)...[facility] 12-24-2022 NoteHNO ID: [id number] Author: Alejo Marshall MD Service: ? Author [...] Care Visit completed when applicable. Megan Marshall, [facility]06-02-2023 History of Present illness Narrative* Alejo [...] Patient was referred by Dr. Pham ( [facility] Patient c/o of increased muscle weakness. [...] units/L Brianna Murray RN documented in this encounterOhio State Health System04-24-2023 Miscellaneous Notes* Telephone Encounter - Noemi Pham MD - 11/15/2022 1:22 PM EDT Please tell her I received labs from [facility] and her cpk and aldolase returned normal [...] 365 Days Visit Type Date Time Department [facility] 02/16/2023 11:20 AM [facility] Last Ophthalmology Check for Plaquenil [...] None documented in this encounterOhio State Health System01-18-2023 History of Present illness Narrative* Jud Rosa PRADO - 08/11/2022 11:21 AM EST Patient given Depomedrol 80 mg IM in the left upper quadrant gluteus. Patient tolerated injection well. Lot#: [id number] Exp date: 03/23/2024 Jud Hess LPN * [...] 06/14/2022 3:35 PM EST Mohsen Prince Felder: [id number] - CHELSEY - Rx #: [id number] help? Call us at Outcome Approvedon June 11 CaseId:[id number];Status:Approved;Review Type:Prior Auth;Coverage Start Date:05/12/2022;Coverage End Date:06/11/2023; * Telephone Encounter - Jud Hess LPN - 06/11/2022 11:22 AM EST PA for Enbrel submitted via Cover My Meds this date. If approved [facility] * Telephone Encounter - Diana Stanley - 06/04/2022 9:59 AM EST Lynette Prince called today. : 1975 Allergies: Meloxicam and Methotrexate (home) [phone] (cell) Reason for call: patient states she spoke with [employer] requesting additional info for medication For ENBREL Please advise Patient last appointment: 05/29/2022 The patients preferred pharmacy has been captured for this encounter? yes RHODA STARR documented in this encounterOhio State Health System11-10-2022 Miscellaneous Notes* Telephone Encounter - Inocencia Bui LPN - 06/03/2022 9:36 AM EST Follow up message from 05/17/22 encounter and orders. documented in this encounterOhio State Health System11-07-2022 Miscellaneous Notes* Telephone Encounter - Linnea Sanders Ma - 05/31/2022 4:25 PM EST Done by [employer]. * Telephone Encounter - Noemi Pham MD [...] Days Visit Type Date Time Department MISHEL EST [facility] 10/20/2022 9:40 AM [facility] CBC: None on file [...] None documented in this encounterOhio State Health System10-24-2022 Miscellaneous Notes* Telephone Encounter - Jud Hess LPN - 05/17/2022 4:26 PM EDT [employer] message sent to patient. * Telephone Encounter [...] : 1975 Allergies: Meloxicam and Methotrexate (home) [phone] (cell) Reason for call: Patient called asking [...] Enbrel submitted via Cover My Meds. Felder: [id number] Pend for determination * Telephone Encounter - [...] message on voicemail) ' [place] [address]-06-2022 Miscellaneous Notes* Telephone Encounter - Jud Hess LPN - 10/28/2021 12:13 PM EDT Rx placed in outgoing mail this date. Patient notified via [employer]. * Telephone Encounter - Noemi Pham MD - 10/28/2021 11:59 AM EDT rx for handicapped written, please mail to patient. Noemi Pham MD [facility]* Diagnosis Neuropathic pain- Primary Neuralgia, neuritis, and radiculitis, unspecified [facility] Work Phone: evaluation note* Diagnosis Fibromyalgia- Primary Mylagia and myositis, unspecified documented in this encounter [facility] noteNo assessment information availableSt. [facility] Work Phone: Evaluation note* Diagnosis Rheumatoid arthritis involving multiple sites, unspecified whether rheumatoid factor present (HCC)- Primary documented in this encounter [facility] note* Diagnosis Myalgia- Primary Mylagia and myositis, unspecified documented in this encounter [facility] note* Diagnosis Fatigue, unspecified type- Primary Elevated aldolase level Other nonspecific abnormal serum enzyme levels Generalized weakness Other malaise and fatigue [facility]* Diagnosis Fatigue, unspecified type Elevated aldolase level Other nonspecific abnormal serum enzyme levels Generalized weakness Other malaise and fatigue [facility]* Diagnosis Rheumatoid arthritis involving multiple sites, unspecified whether rheumatoid factor present (HCC)- Primary documented in this encounter [facility] note* Diagnosis Pain in joint, multiple sites- Primary Trochanteric bursitis of both hips Enthesopathy of hip region [facility]* Diagnosis Pain in joint, multiple sites documented in this encounter [facility] noteNo [facility] Other Evaluation note* Diagnosis Status migrainosus- Primary Variants of migraine, not elsewhere classified, without mention of intractable migraine without mention of status migrainosus Migraine without aura and without status migrainosus, not intractable Cervicalgia Fibromyalgia Unspecified myalgia and myositis Paresthesias Disturbance of skin sensation Trapezius muscle spasm Vertigo Dizziness and giddiness documented in this encounter [facility]* Diagnosis Primary hypertension- Primary Unspecified essential hypertension Coronary artery vasospasm (CMS-HCC) Prinzmetal angina Intermittent palpitations Obstructive sleep apnea Obstructive sleep apnea (adult) (pediatric) [facility] this [facility]* Diagnosis Chronic bilateral low back pain without sciatica- Primary documented [facility] this encounter [facility]* Diagnosis Spinal stenosis of lumbar region with neurogenic claudication- Primary Spinal stenosis, lumbar region, with neurogenic claudication documented [facility] this encounter [facility]* Diagnosis Retinoschisis, bullous, bilateral- Primary High risk medication use Hypertensive retinopathy of both eyes Hypertensive retinopathy Epiretinal membrane (ERM) of both eyes PVD (posterior vitreous detachment), right eye Vitreous syneresis of both eyes Presbyopia Hx of rheumatoid arthritis Retinoschisis, bullous, bilateral Retinoschisis, bullous, bilateral documented in this encounter [facility]* Diagnosis High risk medication use- Primary documented in this encounter [facility]* Diagnosis Retinoschisis, bullous, bilateral [facility] in this encounter [facility]* Diagnosis Onset Date Resolution Status Lateral epicondylitis, right elbow acute Pain in right elbow acute [facility] Work Phone: Evaluation note* Diagnosis Hair loss- Primary Alopecia, unspecified [facility]* Diagnosis Myelopathy (HCC)- Primary Unspecified disease of spinal cord Pain in joint, multiple sites [place] obesity Obesity, unspecified Vitamin D deficiency Unspecified vitamin D deficiency Screening for condition Screening for unspecified condition Malaise and fatigue Other malaise and fatigue Demyelinating disease of central nervous system (HCC) Demyelinating disease of central nervous system, unspecified [facility]* Diagnosis Myofascial pain dysfunction syndrome- Primary Mylagia and myositis, unspecified Vision disturbance Unspecified visual disturbance Disturbance of skin sensation Alteration in bowel and bladder function Abnormal involuntary movement Abnormal involuntary movements Restless legs Restless legs syndrome (RLS) Intractable migraine equivalent Muscle twitching Abnormal involuntary movements Non-restorative sleep Other sleep disturbances MARINE (obstructive sleep apnea) Obstructive sleep apnea (adult) (pediatric) Fatigue, unspecified type History of vitamin D deficiency Personal history of nutritional deficiency History of hypothyroidism Personal history of other endocrine, metabolic, and immunity disorders Joint swelling Effusion of joint, site unspecified Polyarthralgia Pain in joint, multiple sites Recent skin changes [facility]* Diagnosis Pain in left hip- Primary Pain in joint, pelvic region and thigh Pain in joint, multiple sites documented in this encounter [facility] general Narrative - Reported* Type Description Date Medical History rheumatoid arthritis Medical History anxiety Medical History chronic depression Medical History coronary artery disease Surgical History heart catheterization Surgical History gall bladder removed Surgical History tonsillectomy and adenoidectomy Surgical History HYSTERECTOMY Surgical History appendectomy Hospitalization History surgeries [facility] Other [facility] Discharge instructions* Instructions* Garfield Restrepo [...] a follow up appointment THANK YOU!!! From [facility] and [facility] On behalf of the Emergency Department staff at [facility], I would like to thank you for giving us the opportunity to address your health care needs and concerns. We hope that during your visit, our service was delivered in a professional and caring manner. Please keep [facility] in mind as we walk with you [...] how we did during your visit at [email or web address] and let us know about your experience * Attachments The following attachments cannot be sent through Care Everywhere. * Neuropathic Pain (Armenian) documented in this encounterDrDoctor Phone: InstructionsNot on filedocumented in this encounter Fancy SystemInstructionsNot on filedocumented in this encounter [employer] SystemInstructionsNot on filedocumented in this encounter [employer] SystemInstructionsNot on filedocumented in this encounter [employer] SystemInstructionsNot on filedocumented in this encounter [employer] SystemInstructionsNot on filedocumented in this encounter [facility] Outpatient Procedure (Routine) - Pending Review Specialty Diagnoses / Procedures Referred By Contac t Referred To Contact [facility] Diagnoses Fatigue, unspecified type Elevated aldolase level Generalized weakness Procedures EMG(NEURO/NI) NERVE CONDUCTION STUDIES 9-10 STUDIES Liz Connolly MD [address] [place] [place] [phone] [facility] [place] [address] [place] [address] Referral ID Status Reason Start Date Expiration Date Visits Requested Visits Authorized [id number] Pending Review Auto-Generat ed Referral 11/23/2022 11/24/2023 1 1 [facility] for referral (narrative)* Diagnostic Procedure Only (Routine) - Closed Specialty Diagnoses / Procedures Referred By Contac t Referred To Contact XR IMAGING Diagnoses Pain in joint, multiple sites Procedures XR LUMBAR GENERAL 3V AP/LAT/L5-S1 RADEX SPINE LUMBOSACRAL 2/3 VIEWS Noemi Pham MD [address] [place] [phone] [place] [address] Referral ID Status Reason Start Date Expiration Date V isits Requested Visits Authorized [id number] Closed Auto-Generate d Referral 06/24/2023 07/23/2024 1 1 [facility] for referral (narrative)* Diagnostic Procedure Only (Routine) - Closed Specialty Diagnoses / Procedures Referred By Contac t Referred To Contact XR IMAGING Diagnoses Pain in joint, multiple sites Procedures XR LUMBAR GENERAL 3V AP/LAT/L5-S1 RADEX SPINE LUMBOSACRAL 2/3 VIEWS Noemi Pham MD [address] [place] [phone] [place] [address] Referral ID Status Reason Start Date Expiration Date V isits Requested Visits Authorized [id number] Closed Auto-Generate d Referral 06/24/2023 07/23/2024 1 1 [facility] for referral (narrative)* Consultation (Routine) - Pending Review Specialty Diagnoses / Procedures Referred By Contac t Referred To Contact Pulmonary Medicine Diagnoses Obstructive sleep apnea Michael Perkins MD [address] [place] [address] Olegario Joseph MD [address] [address] Referral ID Status Reason Start Date Expiration Date Visits Requested Visits Authorized [id number] Pending Review Specialty Services Required 09/02/2023 09/01/2024 1 1 [facility] for referral (narrative)* Diagnostic Procedure Only (Routine) - Pending Review Specialty Diagnoses / Procedures Referred By Contac t Referred To Contact XR IMAGING Diagnoses Chronic bilateral low back pain without sciatica Procedures XR LUMBAR GENERAL 3V AP/LAT/L5-S1 RADEX SPINE LUMBOSACRAL 2/3 VIEWS Noemi Pham MD [address] [place] [phone] [facility] [place] [address] Referral ID Status Reason Start Date Expiration Date Visits Requested Visits Authorized [id number] Pending Review Auto-Generat ed Referral 09/19/2023 10/18/2024 1 1 [facility] for referral (narrative)* Diagnostic Procedure Only (Routine) - Pending Review Specialty Diagnoses / Procedures Referred By Contac t Referred To Contact XR IMAGING Diagnoses Pain in left hip Pain in joint, multiple sites Procedures XR HIP 2V AP/LAT LEFT (AK,FL,ME,UN) RADEX HIP UNILATERAL WITH PELVIS 2-3 VIEWS Nish Chavez APRN.CNP [address] [place] [address] [facility] [place] [address] Referral ID Status Reason Start Date Expiration Date Visits Requested Visits Authorized [id number] Pending Review Auto-Generat ed Referral 11/25/2023 12/24/2024 1 1 [facility] for visit Narrative* Outpatient Procedure (Routine) - Closed Specialty Diagnoses / Procedures Referred By Alba t Referred To Contact [facility] Diagnoses Fatigue, unspecified type Elevated aldolase level Generalized weakness Procedures EMG(NEURO/NI) NERVE CONDUCTION STUDIES 9-10 STUDIES Liz Connolly MD [address] [place] [address] [facility] [place] [facility] [place] [address] Referral ID Status Reason Start Date Expiration Date V isits Requested Visits Authorized [id number] Closed Auto-Generate d Referral 11/23/2022 11/24/2023 1 1 [facility] Advance Directives No Advanced Directives Records FoundDocuments on File Type Date Recorded Patient Rfid Analyst Expl anation ACP-Advance Directive ACP-Power of Senior Software Tester Documents on File Type Date Recorded Patient Rfid Analyst Expl anation Advance Directives and Living Will Power of Senior Software Tester Documents on File Type Date Recorded Patient Rfid Analyst Expl anation ACP-Advance Directive ACP-Power of Senior Software Tester Latest Code Status on File Code Status Date Activated Date Inactivated Comments Full Code 09/06/2022 4:15 PM 09/07/2022 7:01 PM Latest Code Status on File Code Status Date Activated Date Inactivated Comments Full Code 09/06/2022 4:15 PM 09/07/2022 7:01 PM Advance Directive Response Recorded Date/ Time Advance Directives No August 04, 2022 9:07am Summary Purpose Family History No Family History Records Found Relationship Condition Age at Onset Recorded Date/T kurt Not Specified Hypertension Unknown Diabetes mellitus Unknown Procedure Findings Note MR#: [id number] [facility] Pt. Name: Lynette Prince Surgery Date: 08/22/2019 Room #: Z0 Date of : 1975 PROCEDURE NOTE ATTENDING: Dina Zhou M.D. PROCEDURE PERFORMED: Esophagogastroduodenoscopy. LEAD MACHINIST: Zackary Narvaez M.D. ANESTHESIA USED: Conscious sedation [...] ice in a towel. Please call your train attendant tomorrow and your family physician tomorrow to schedule follow-up for 1to 2 days Return to the emergency room for worsening pain swelling numbness tingling or other emergent concerns * Attachments The following attachments cannot be sent through Care Everywhere. * Foot Sprain (Armenian) documented in this encounter Assessments Diagnosis Sprain [...] Referral Specialty Diagnoses / Procedures Referred By Alba shin Referred To Contact Neurology Diagnoses Abnormal involuntary movement Restless legs Procedures CONSULT TO NEUROLOGY OFFICE/OUTPATIENT [facility] 60 MINUTES Liz Connolly MD [address] [place] [address] Referral ID Status Reason Start Date Expiration Date Visits Requested Visits Authorized [id number] Authorized PCP Requested Referral 11/11/2023 11/10/2024 1 1 Specialty Diagnoses / Procedures Referred By Alba shin Referred To Contact Neurology Diagnoses Vision disturbance Disturbance of skin sensation Alteration in bowel and bladder function Procedures CONSULT TO NEUROLOGY OFFICE/OUTPATIENT [facility] 60 MINUTES Liz Connolly MD [address] [place] [address] Referral ID Status Reason Start Date Expiration Date Visits Requested Visits Authorized [id number] Authorized PCP Requested Referral 11/11/2023 11/10/2024 1 1 Specialty Diagnoses / Procedures Referred By Alba shin Referred To Contact MR IMAGING Diagnoses Demyelinating disease of central nervous system (HCC) Procedures MRI THORACIC SPINE WO/W IVCON MRI SPINAL CANAL THORACIC W/O & W/CONTR Brett Whitfield MD [address] [place] [phone] [facility] [place] [address] Referral ID Status Reason Start Date Expiration Date Visits Requested Visits Authorized [id number] Pending Review Auto-Generat ed Referral 11/17/2023 12/16/2024 1 1 Specialty Diagnoses / Procedures Referred By Contac t Referred To Contact MR IMAGING Diagnoses Demyelinating disease of central nervous system (HCC) Procedures MRI CERVICAL SPINE WO/W IVCON MRI SPINAL CANAL CERVICAL W/O & W/CONTR Brett Whitfield MD [address] [phone] [facility] [place] [address] Referral ID Status Reason Start Date Expiration Date Visits Requested Visits Authorized [id number] Pending Review Auto-Generat ed Referral 11/17/2023 12/16/2024 1 1 Specialty Diagnoses / Procedures Referred By Contac t Referred To Contact MR IMAGING Diagnoses Demyelinating disease of central nervous system (HCC) Procedures MRI BRAIN WO/W IVCON MRI BRAIN BRAIN STEM W/O W/CONTRAST MATERIAL Brett Dickson MD [address] [facility] [place] [address] Mr Imaging [place] [address] Referral ID Status Reason Start Date Expiration Date Visits Requested Visits Authorized [id number] Pending Review Auto-Generat ed Referral 11/17/2023 12/16/2024 1 1 Specialty Diagnoses / Procedures Referred By Contac t Referred To Contact MR IMAGING Diagnoses Spinal stenosis of lumbar region with neurogenic claudication Procedures MRI LUMBAR SPINE WO IVCON MRI SPINAL CANAL LUMBAR W/O CONTRAST MATERIAL Noemi Pham MD [address] [place] [phone] [facility] [place] [address] Referral ID Status Reason Start Date Expiration Date Visits Requested Visits Authorized [id number] Pending Review Auto-Generat ed Referral 09/21/2023 10/20/2024 1 1 Chief Complaint and Reason for Visit Chief Complaint op sp rt elbow pain requested injection Reason for Visit Lateral epicondyliti s, right elbow Pain in right elbow Additional Source Comments Reason for Visit (unrecogniz ed section and content) Status Reason Specialty Diagnoses / Procedures Referred By Contact Referred To Contact Authorized Physical Therapy Diagnoses Plantar fasciitis Procedures eval and treat Isael Yoder MD [address] [place] [address] Sander Jauregui, PT Reason Comments Foot Pain [...] LUMBOSACRAL 2/3 VIEWS Noemi Pham MD [address] [facility] [address] [place] [address] [place] [address] Referral ID Status Reason Start Date Expiration Date V isits Requested Visits Authorized [id number] Closed Auto-Generate d Referral 06/24/2023 07/23/2024 1 1 Reason Onset Date Comments Headache 07/21/2023 Reason Comments Migraine Migraine cocktail Reason Onset Date Comments Appointment 09/01/2023 Reason Comments Follow-up Hypertension Reason Comments Pain Reason Comments Results X-ray results XR lum bar spine Reason Comments Retinoschisis, bullous, bilateral Reason Comments Procedure Reason Comments New Patient Evaluation MS Evaluation Reason Comments Forms/letter Letter for work Reason Comments Established Patient Reason Comments office notes INFORMATION SOURCE (unrecogn ized section and content) DATE CREATED AUTHOR 08/14/2020 [facility] DATE CREATED AUTHOR AUTHOR'S ORGANIZ ATION 07/25/2021 [facility] DATE CREATED AUTHOR AUTHOR'S ORGANIZ ATION 09/20/2022 [facility] DATE CREATED AUTHOR AUTHOR'S ORGANIZ ATION 03/25/2023 [facility] DATE CREATED AUTHOR AUTHOR'S ORGANIZ ATION 06/27/2023 [facility] DATE CREATED AUTHOR AUTHOR'S ORGANIZ ATION 09/30/2023 [facility] DATE CREATED AUTHOR AUTHOR'S ORGANIZ ATION 11/10/2023 [facility] DATE CREATED AUTHOR AUTHOR'S ORGANIZ ATION 11/12/2023 [facility] DATE CREATED AUTHOR AUTHOR'S ORGANIZ ATION 11/26/2023 [facility] Ordered Prescriptions (unrec ognized section and [...] or prosecute any alcohol or drug abuse patient.[facility] Teams (unrecognized sec tion and content) Engineering Consultant Relationship Specialty Start Date End Date Toy Obrien MD PCP - General Family Practice 07/05/16 Engineering Consultant Relationship Specialty Start Date End Date Toy Obrien MD PCP - General Family Practice 07/05/16 Engineering Consultant Relationship Specialty Start Date End Date Toy Obrien MD PCP - General Family Medicine 07/05/16 Engineering Consultant Relationship Specialty Start Date End Date Toy Obrien MD PCP - General Family Medicine 07/05/16 Engineering Consultant Relationship Specialty Start Date End Date Toy Obrien MD PCP - General Family Medicine 07/05/16 Team Status: Inactive Member Role Status Dates Jud Monson NP-C Attending Provider Active Engineering Consultant Relationship Specialty Start Date End Date Toy Obrien MD PCP - General Family Medicine 07/05/16 Engineering Consultant Relationship Specialty Start Date End Date Toy Obrien MD PCP - General Family Medicine 07/05/16 Engineering Consultant Relationship Specialty Start Date End Date Toy Obrien MD PCP - General Family Medicine 07/05/16 Engineering Consultant Relationship Specialty Start Date End Date Toy Obrien MD PCP - General Family Medicine 07/05/16 Engineering Consultant Relationship Specialty Start Date End Date Toy Obrien MD PCP - General Family Medicine 07/05/16 Engineering Consultant Relationship Specialty Start Date End Date Toy Obrien MD PCP - General Family Medicine 07/05/16 Engineering Consultant Relationship Specialty Start Date End Date Toy Obrien MD PCP - General Family Medicine 07/05/16 Engineering Consultant Relationship Specialty Start Date End Date Toy Obrien MD PCP - General Family Medicine 07/05/16 Engineering Consultant Relationship Specialty Start Date End Date Toy Obrien MD PCP - General Family Medicine 07/05/16 Engineering Consultant Relationship Specialty Start Date End Date Toy Obrien MD PCP - General Family Medicine 07/05/16 Engineering Consultant Relationship Specialty Start Date End Date Toy Obrien MD PCP - General Family Medicine 07/05/16 Engineering Consultant Relationship Specialty Start Date End Date Toy Obrien [facility] [place] [phone] PCP - General Family Medicine 09/06/22 Engineering Consultant Relationship Specialty Start Date End Date Toy Obrien [facility] [place] [phone] PCP - General Family Medicine 09/06/22 Engineering Consultant Relationship Specialty Start Date End Date Toy Obrien [facility] [place] [phone] PCP - General Family Medicine 09/06/22 Engineering Consultant Relationship Specialty Start Date End Date Toy Obrien [place] [facility] [place] [phone] PCP - General Family Medicine 09/06/22 Engineering Consultant Relationship Specialty Start Date End Date Toy Obrien [place] [facility] [place] [phone] PCP - General Family Medicine 09/06/22 Engineering Consultant Relationship Specialty Start Date End Date Toy Obrien MD PCP - General Family Medicine 07/05/16 Engineering Consultant Relationship Specialty Start Date End Date Tyo Obrien MD PCP - General Family Medicine 07/05/16 Engineering Consultant Relationship Specialty Start Date End Date Toy Obrien MD PCP - General Family Medicine 07/05/16 Engineering Consultant Relationship Specialty Start Date End Date Toy Obrien MD PCP - General Family Medicine 07/05/16 Engineering Consultant Relationship Specialty Start Date End Date Toy Obrien [place] [facility] [place] [phone] PCP - General Family Medicine 09/06/22 Engineering Consultant Relationship Specialty Start Date End Date Toy Obrien [place] [facility] [place] [phone] PCP - General Family Medicine 09/06/22 Engineering Consultant Relationship Specialty Start Date End Date Toy Obrien MD [facility] [place] [address] [place] [phone] PCP - General Family Medicine 09/06/22 Team Status: Active Member Role Status Dates NON STAFF Primary Care Provider Active Team Status: Inactive Member Role Status Dates NON STAFF Primary Care Provider Active Start: November 03, 2023 End: November 03, 2023 Jud Monson , NUMERICAL CONTROL TOOL PROGRAMMER-C Attending Provider Active Start: November 03, 2023 End: November 03, 2023 Engineering Consultant Relationship Specialty Start Date End Date Toy Obrien MD PCP - General Family Medicine 07/05/16 Lachelle Barton [address] [place] [address], [place] [address] Gastroenterology 11/07/23 Engineering Consultant Relationship Specialty Start Date End Date Toy Obrien MD PCP - General Family Medicine 07/05/16 Lachelle Barton [address] [place] [address], [address] [place] [address] Gastroenterology 11/07/23 Engineering Consultant Relationship Specialty Start Date End Date Toy Obrien MD PCP - General Family Medicine 07/05/16 Lachelle Barton [address] [place] [address], [address] [place] [address], [place] [address] Gastroenterology 11/07/23 Engineering Consultant Relationship Specialty Start Date End Date Toy Obrien MD PCP - General Family Medicine 07/05/16 Lachelle Barton [address] [place] [address], [place] [address] Gastroenterology 11/07/23 Engineering Consultant Relationship Specialty Start Date End Date Toy Obrien MD PCP - General Family Medicine 07/05/16 Lachelle Barton [address] [place] [address], [place] [address] Gastroenterology 11/07/23 Engineering Consultant Relationship Specialty Start Date End Date Toy Obrien MD PCP - General Family Medicine 07/05/16 Lachelle Barton [address] [place] [address], [place] [address] Gastroenterology 11/07/23 Engineering Consultant Relationship Specialty Start Date End Date Toy Obrien MD PCP - General Family Medicine 07/05/16 Lachelle Barton [address] [place] [address], [place] [address] Gastroenterology 11/07/23 Engineering Consultant Relationship Specialty Start Date End Date Toy Obrien MD PCP - General Family Medicine 07/05/16 Lachelle Barton [address] [place] [address] [place] [address] Gastroenterology 11/07/23 Goals (unrecognized section and content) Goals may [...] this encounterNot on filedocumented as of this encounterGoals may be documented in an alternate section FOR RECORDS PERTAINING TO PATIENTS WHO ARE [...] BE BASED ON THE PRIMARY CLINICAL RECORDS. [facility]. provides no warranty or guarantee of the accuracy or completeness of information in this document.
== END 2023-11-28 08:35 | disposition home or self-care (01) ==
LOC: MRI 08:34
DX: G37.9 Demyelinating disease of central nervous system, unspecified (principal); M25.552 Pain in left hip; M25.50 Pain in unspecified joint
CPT/HCPCS: 72156; 72157; 73502; A9575

== ENCOUNTER 2023-11-30 07:45 | Outpatient (OUT) | payer OTHER, SELFPAY ==
--- NOTE | 2023-11-30 07:48 | MR_ITS ---
The [address] [address] Patient Name: ROSELIA LANDRY MRN: [id number] date: 1975 Sex: F Assigned Patient Location: MRI Current Patient Location: MRI Accession/Order Number: [id number] Exam Date: 11/30/2023 07:55 Report Date: 11/30/2023 11:45 At the request of: NON-STAFF PHYSICIAN Procedure: MR head/brain wo/w con EXAM: MR head/brain wo/w con HISTORY: Demyelinating Disease Central Nervous System G37.9 COMPARISON: None. TECHNIQUE: Multiplanar T1-weighted, axial FLAIR, and susceptibility images were obtained without intravenous contrast. Following intravenous gadolinium-based contrast administration, axial T2-weighted, diffusion, and T1-weighted images (in multiple planes) were obtained. Contrast: 20 mL Dotarem Findings: There is no mass effect, midline shift, or evidence of intracranial hemorrhage. The ventricles are proportionate to the cerebral sulci. Normal major vascular intracranial flow-voids. No significant white matter lesions. Cerebral volume is within normal limits for the patient's age. High-resolution axial T2-weighted images through the internal auditory canals appear grossly clear. Coronal T2-weighted images through the mesial temporal lobes appear symmetric bilaterally without atrophy or signal abnormality. Postcontrast images demonstrate no abnormal intracranial enhancement. No abnormality of the skull marrow signal. The visualized portions of paranasal sinuses, and mastoid air cells are relatively clear. The orbits are grossly unremarkable. MR/MR head/brain wo/w con Impression: Normal brain MRI with and without IV contrast. No evidence for demyelinating disease. Electronically authenticated by: GARFIELD ELLIS Date: 11/30/2023 11:45
== END 2023-11-30 07:46 | disposition home or self-care (01) ==
LOC: MRI 07:45
DX: G37.9 Demyelinating disease of central nervous system, unspecified (principal)
CPT/HCPCS: 70553; A9575

== ENCOUNTER 2023-12-29 10:50 | Outpatient (OUT) | payer OTHER, SELFPAY ==
--- NOTE | 2023-12-29 11:05 | XR_ITS ---
The [address] [address] Patient Name: ROSELIA LANDRY MRN: [id number] date: 1975 Sex: F Assigned Patient Location: [facility] Current Patient Location: Accession/Order Number: [id number] Exam Date: 12/29/2023 11:15 Report Date: 12/30/2023 09:09 At the request of: NON-STAFF PHYSICIAN Procedure: XR chest 2V EXAM: CHEST 2 VIEWS HISTORY: Shortness of breath on exertion R06.02 TECHNIQUE: PA and lateral views chest. COMPARISON: None. FINDINGS: The lungs are clear. There is no focal lung consolidation, pleural effusion or pneumothorax. Pulmonary vasculature is within normal limits. The cardiomediastinal silhouette is normal. There are cholecystectomy clips. XR/XR chest 2V IMPRESSION: 1. No acute cardiopulmonary disease. Electronically authenticated by: MARIE BARRIGA Date: 12/30/2023 09:09
== END 2023-12-29 10:51 | disposition home or self-care (01) ==
LOC: RAD 10:53
DX: R06.02 Shortness of breath (principal)
CPT/HCPCS: 71046

== ENCOUNTER 2024-09-03 19:53 | Emergency (ER) | payer OTHER, SELFPAY ==
--- OUTSIDE RECORDS SUMMARY | 2024-09-03 20:11 | XMS_ITS | CCD ---
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 Name Role Phone Toy Obrien Primary Care Provider ZOEY Monson Attending Provider [phone] Toy Obrien MD Primary Care Provider Jud Monson Admitting Unavailable Jud Monson Attending Unavailable NON STAFF Primary Care Unavailable Jud Monson Unavailable Beba Richey Unavailable Betty Moreau Unavailable Toy Obrien MD Primary Care Provider [phone] TOY OBRIEN Primary Care Unavailable NASEEM LOUISE Attending Unavailable NASEEM LOUISE Attending Unavailable NASEEM LOUISE Referring Unavailable TOY OBRIEN Primary Care Unavailable Toy Obrien MD Primary Care Provider [phone] Ham Barton Unavailable TOY OBRIEN Primary Care Unavailable LUTHER ZAMORA Attending Unavailable LUTHER ZAMORA Referring Unavailable TOY OBRIEN Primary Care Unavailable TOY OBRIEN Primary Care Unavailable ALBA MACIEL Attending Unavailable ALBA MACIEL Attending Unavailable ALBA MACIEL Referring Unavailable TOY OBRIEN Primary Care Unavailable TOY OBRIEN Primary Care Unavailable JUD EDMOND Referring UnavailTOY Trejo Referring Unavailable TOY OBRIEN Primary Care Unavailable Toy Obrien MD Primary Care Provider BRETT DICKSON Referring Unavailable DANITA BOB Attending Unavailable TOY OBRIEN Primary Care Unavailable DANITA BOB Referring Unavailable OBRIENTOY MORAN Primary Care Unavailable Toy Obrien MD Primary Care Provider LIVAN TOUSSAINT Attending Unavailable CYRUS ONTIVEROS Consulting Unavailable OBRIEN, TOY Gimenez Primary Care Unavailable OBRIEN, TOY Gimenez Primary Care Unavailable WAN MADRIGAL Referring Unavailable ANKIT, NOEMI Gimenez Referring Unavailable OBRIEN, TOY Gimenez Primary Care Unavailable ANKIT, NOEMI Gimenez Referring Unavailable OBRIEN, TOY Gimenez Primary Care Unavailable JONELLE PURI Referring Unavailable OBRIEN, TOY Gimenez Primary Care Unavailable Toy Obrien MD Primary Care Provider [phone] TOY OBRIEN Referring Unavailable OBRIEN, TOY Gimenez Primary Care Unavailable VIRI, DALLAS S Referring Unavailable OBRIEN, TOY Gimenez Primary Care Unavailable VIRI, DALLAS S Attending Unavailable OBRIEN, TOY Gimenez Referring Unavailable OBRIEN, TOY Gimenez Primary Care Unavailable VIRI, DALLAS S Referring Unavailable OBRIEN, TOY Gimenez Primary Care Unavailable VIRI, DALLAS S Referring Unavailable OBRIEN, TOY Gimenez Primary Care Unavailable CODY HUTCHINS Attending Unavailable OBRIEN, TOY Gimenez Referring Unavailable OBRIEN, TOY Gimenez Primary Care Unavailable OBRIEN, TOY Gimenez Referring Unavailable OBRIEN, TOY Gimenez Primary Care Unavailable LUTHER ZAMORA Attending Unavailable OBRIEN, TOY Gimenez Referring Unavailable OBRIEN, TOY Gimenez Primary Care Unavailable OBRIEN, TOY Gimenez Referring Unavailable OBRIEN, TOY Gimenez Primary Care Unavailable LUTHER ZAMORA Referring Unavailable OBRIEN, TOY Gimenez Primary Care Unavailable OBRIEN, TOY Gimenez Referring Unavailable OBRIEN, TOY Gimenez Primary Care Unavailable MARCEL AGUILLON Attending Unavailable LUTHER ZAMORA Attending Unavailable OBRIENTOY MORAN Referring Unavailable OBRIEN, TOY Gimenez Primary Care Unavailable MICHAEL PERKINS Attending Unavailable OBRIEN, TOY Gimenez Referring Unavailable OBRIEN, TOY Gimenez Primary Care Unavailable VIRI, DALLAS S Attending Unavailable OBRIEN, TOY Gimenez Referring Unavailable OBRIEN, TOY Gimenez Primary Care Unavailable VIRI, DALLAS S Referring Unavailable OBRIEN, TOY Gimenez Primary Care Unavailable OBRIEN, TOY Gimenez Referring Unavailable OBRIEN, TOY Gimenez Primary Care Unavailable OBRIEN, TOY P Referring Unavailable OBRIEN, TOY Gimenez Primary Care Unavailable KERMIT BLANCO Attending Unavailable KERMIT BLANCO Referring Unavailable OBRIEN, TOY Gimenez Primary Care Unavailable BIENVENIDO REZA Attending Unavailable OBRIEN, TOY Gimenez Referring Unavailable OBRIEN, TOY Gimenez Primary Care Unavailable MAYI KEYS Attending Unavailable TOY OBRIEN Referring Unavailable TOY OBRIEN Primary Care Unavailable NOEMI PHAM Referring Unavailable TOY OBRIEN Primary Care Unavailable LIZ CONNOLLY Attending Unavailable TOY OBRIEN Primary Care Unavailable BRETT DICKSON Attending Unavailable TOY OBRIEN Primary Care Unavailable BRETT DICKSON Referring Unavailable TOY OBRIEN Primary Care Unavailable BRETT DICKSON Attending Unavailable LIZ CONNOLLY Referring Unavailable TOY OBRIEN Primary Care Unavailable NOEMI PHAM Attending Unavailable TOY OBRIEN Primary Care Unavailable TOY OBRIEN Primary Care Unavailable NOEMI PHAM Attending Unavailable TOY OBRIEN Primary Care Unavailable Allergies Allergy Classification Reported Allergen(s) Allergy Type Date of Onset Reaction(s) Facility Methotrexate (1 source) Methotrexate Drug Allergy 5 GI Upset [facility] NSAIDs (2 sources) meloxicam Drug Allergy 7 [facility] (20 sources) meloxicam; Translations: [MELOXICAM] Drug Allergy 7 [place] (20 sources) Methotrexate; Translations: [METHOTREXATE] Drug Allergy 5 GI Upset, Hives, Nausea And Vomiting [facility] (4 sources) Isosorbide Dinitrate Drug Allergy 2 Other (See Comments), Headaches [facility] (20 sources) Isosorbide; Translations: [ISOSORBIDE MONONITRATE] Drug Allergy 2 Headache, Vomiting [facility] (2 sources) Isosorbide Drug Allergy 2 Unknown Reaction [facility] Medications Current Medications Medication Drug Class(es) Dates Sig (Normalized) Sig (Original) amitriptyline hydrochloride 25 mg oral tablet (9 sources) Tricyclic Antidepressant Start: 06-13-2024 amitriptyline (ELAVIL) 25 mg tablet Indications: Intractable chronic migraine with aura and without status migrainosus Take 1/2 tab po QHS for one week. Week 2 increase to 1 tab QHS and continue this dose 30 tablet 11 06/13/2024 Active amLODIPine 2.5 mg oral tablet (14 sources) Dihydropyridine Calcium Channel Salvador Start: 10-29-2022 End: 11-11-2023 take 1 tablet by mouth once daily Amlodipine Active 2.5 MG PO Daily November 03, 2023 12:00am FreeTextSi tablet Orally Once a day; Note: Source Status: Taking; Provider: Rossi Yoder ( ) amoxicillin 875 mg / clavulanate 125 mg [...] mg total) by mouth in the morning. 09/30/2021 Active Start: 02-07-2019 take 1 tablet by candice th once daily ARIPiprazole (ABILIFY) 2 mg tablet Take 2 mg by mouth once daily. 5 02/07/2019 Active Comment on above: Take 2 mg by mouth o nce daily. aspirin 81 mg chewable tablet (14 sources) Platelet Aggregation Inhibitor, Nonsteroidal Anti-inflammatory Drug Start: 11-03-2023 take 1 tablet by mouth once daily Aspirin Active 1 TAB PO Daily November 03, 2023 12:00am FreeTextSi tablet Orally Once a day; Note: Source Status: Taking; Provider: Rossi Yoder ( ) Start: 09-22-2021 End: 11-11-2023 take 1 tablet by mouth once daily aspirin 81 mg Take 1 tablet (81 mg total) by mouth daily. 09/22/2021 11/11/2023 Discontinued take 1 tablet by candice th every twenty-four hours Aspirin 81 MG 1 tablet Orally Once a day Active busPIRone hydrochloride 10 mg oral tablet (20 sources) Start: 03-16-2022 take 1 tablet by mouth in the morning busPIRone (BUSPAR) 10 mg tablet Take 1 tablet (10 mg total) by mouth in the morning. 03/16/2022 Active take 1 tablet by mouth three celina es daily busPIRone (BUSPAR) 10 mg tablet Take 10 mg by mouth three times daily. Active Comment on above: Take 10 mg by mouth three times daily. COMPOUNDED PRESCRIPTION (20 sources) Start: 01-03-2017 COMPOUNDED PRESCRIPTION Handicapped placard Diagnosis- RA Cannot walk >200 ft Duration- 3 yrs 1 Applicator 01/03/2017 Active Start: 01-03-2017 COMPOUNDED PRE SCRIPTION Handicapped placard Diagnosis- RA Cannot walk >200 ft Duration- 3 yrs 1 Applicator 0 01/03/2017 Active Comment on above: Handicapped placard Diagnosis- RA Cannot walk >200 ft Duration- 3 yrs ergocalciferol 1.25 mg oral capsule (20 sources) Provitamin D2 Compound Start: 11-18-19 End: 04-22-20 24 take 1 capsule by mouth every week ergocalciferol 50,000 unit capsule (VITAMIN D2, DRISDOL) Indications: Vitamin D deficiency TAKE 1 CAPSULE BY MOUTH ONE TIME A WEEK. 12 capsule 01/23/2024 Active fluconazole 150 mg oral tablet (2 sources) Azole Antifungal Start: 11-03-19 take 1 tablet by mouth once Fluconazole Active 1 TAB PO Once November 03, 2023 12:00am FreeTextSi tablet Orally once; Note: Source Status: Start; Refills: 0; Provider: Lizzeth Meade Start: 07-22-2023 take 1 tablet by mouth once Fl uconazole 150 MG 1 tablet Orally once for 1 day Jun, Active fluticasone propionate 0.05 mg/actuat metered dose nasal spray (4 sources) Corticosteroid Start: 03-24-2024 End: 07-07-2024 take 1 spray(s) nasal route in the morning fluticasone propionate (FLONASE) 50 mcg/actuation nasal spray Administer 1 spray into each nostril in the morning. 16 g 03/24/2024 07/07/2024 Discontinued (Therapy completed) Start: 11-03-2023 take 2 spray(s) nasa l route once daily Fluticasone Propionate Active 2 SPRAY INTRANASAL Daily November 03, 2023 12:00am FreeTextSi sprays Nasally Once a day; Note: Source Status: Start; Refills: 0; Provider: Rossi Dioxn Start: 07-13-2023 take 2 spray(s) nasa l route once daily Fluticasone Propionate 50 MCG/ACT 2 sprays Nasally Once a day for 14 day(s) Jun, Active ibuprofen 800 mg oral tablet (20 sources) Nonsteroidal Anti-inflammatory Drug Start: 01-19-2021 ibuprofen (MOTRIN ) 800 mg tablet Take 800 mg by mouth as needed. 01/19/2021 Active Start: 11-20-2016 take 1 tablet [...] link. 1 Each 0 11/17/2023 11/18/2023 Active leucovorin 10 mg oral tablet (2 sources) Folate Analog Start: 07-14-2024 End: 07-15-2024 take 2 tablets by mouth every six hours leucovorin calcium (WELLCOVORIN) 10 MG tablet Take 2 tablets by mouth every 6 hours for 4 doses 8 tablet 07/14/2024 07/15/2024 Active Start: 07-14-2024 22.5 mg (round ed from 23.2 mg = 10 mg/m2 2.32 m2), Oral, EVERY 6 HOURS, First dose on 07/14/24 at 1345, Until Discontinued meclizine hydrochloride 12.5 mg oral tablet (1 source) Antiemetic Start: 03-24-2024 End: 07-07-2024 take 1 tablet by mouth three times daily as needed for dizziness meclizine (ANTIVERT) 12.5 mg tablet Take 1 tablet (12.5 mg total) by mouth 3 (three) times a day as needed for dizziness. 20 tablet 03/24/2024 07/07/2024 Discontinued (Therapy completed) methotrexate 2.5 mg oral tablet (8 sources) Folate Analog Metabolic Inhibitor Start: 07-02-2024 take 4 tablets by mouth every week, then take 6 tablets by mouth every week methotrexate 2.5 mg tablet TAKE 4 TABS PO QWK FOR 2WKS THEN INCREASE TO 6 TABS PO QWK 25 tablet 2 07/02/2024 Active 24 hr metoprolol succinate 25 mg extended release oral tablet (20 sources) beta-Adrenergic Salvador Start: 02-22-2024 take 1 tablet by mouth every twenty-four hours in the morning metoprolol succinate XL (TOPROL XL) 25 mg 24 hr tablet Indications: Coronary artery vasospasm (CMS-HCC) , Primary hypertension , Intermittent palpitations Take 1 tablet (25 mg total) by mouth in the morning. 90 tablet 3 02/22/2024 Active Start: 09-08-2022 take 0.5 tablet by m outh once daily metoprolol succinate (TOPROL XL) 25 MG extended release tablet Take 0.5 tablets by mouth daily 09/08/2022 Active Start: 09-08-2022 End: 09-02-2023 take 0.5 tablet [...] Take 12.5 mg by mouth once daily. Active Comment on above: Take 12.5 mg by mout h once daily. 24 hr mirabegron 50 mg extended release oral tablet (1 source) beta3-Adrenergic Agonist Start: 08-27-2024 take 1 tablet by mouth every twenty-four hours in the morning mirabegron (MYRBETRIQ) 50 mg tablet extended release 24 hr Take 1 tablet (50 mg total) by mouth in the morning. 30 tablet 5 08/27/2024 Active Start: 08-27-2024 take 1 tablet by candice th every twenty-four hours in the morning mirabegron (MYRBETRIQ) 50 mg tablet extended release 24 hr Take 1 tablet (50 mg total) by mouth in the morning. 30 tablet 5 08/27/2024 Active nitroglycerin 0.4 mg sublingual tablet (17 sources) Nitrate Vasodilator Start: 10-14-2021 nitroglycerin (NITROSTAT) 0.4 MG SL tablet 1 under the tongue as needed for angina, may repeat q5mins for up three doses 25 tablet 5 09/14/2022 Active omeprazole 40 mg delayed release oral capsule (20 sources) Proton Pump Inhibitor Start: 03-06-2021 End: 07-07-2024 take 1 capsule by mouth once daily omeprazole (PRILOSEC) 40 mg capsule Take 40 mg by mouth once daily. 03/06/2021 Active Comment on above: Take 40 mg by mouth once daily. ondansetron 4 mg oral tablet (20 sources) Serotonin-3 Receptor Antagonist Start: 03-24-2024 take 1 tablet by mouth every eight hours as needed for nausea ondansetron ODT (ZOFRAN ODT) 4 mg disintegrating tablet Dissolve 1 tablet (4 mg total) on tongue every 8 (eight) hours as needed for nausea for up to 10 doses. 10 tablet 03/24/2024 Active Start: 05-13-2021 End: 08-21-2024 take 1 tablet by mouth every twelve hours as needed ondansetron (ZOFRAN) 4 mg tablet Take 1 tablet by mouth every 12 hours as needed. 30 tablet 2 08/22/2024 Active Comment on above: TAKE 1 TABLET BY CANDICE TH EVERY 12 HOURS NEEDED pantoprazole 40 mg delayed release oral tablet (4 sources) Proton Pump Inhibitor pantoprazole (PROTONIX) 40 mg EC tablet TAKE 1 TABLET BY MOUTH 30 MINUTES TO 1 HOUR BEFORE MORNING MEAL TWICE DAILY Active predniSONE 20 mg oral tablet (20 sources) Start: End: take 2 tablets by mouth in the morning predniSONE (DELTASONE) 20 mg tablet Indications: Acute pain of left knee Take 2 tablets (40 mg total) by mouth in the morning for 5 days. 10 tablet 07/07/2024 07/12/2024 Active Start: 06-01-2024 End: 06-29-2024 take 1 tablet by mouth once daily predniSONE (DELTASONE) 10 mg tablet Take 1 tab po qd 30 tablet 1 06/01/2024 06/29/2024 Discontinued Start: 07-13-2023 take 1 tablet by candice th every twelve hours predniSONE 20 MG 1 [...] tablet (5 sources) beta-Adrenergic Salvador Start: 12-27-19 propranolol (INDERAL) 40 MG tablet rimegepant 75 mg disintegrating oral tablet (15 sources) Start: 05-22-20 take 1 tablet by mouth every other day rimegepant (NURTEC ODT) 75 mg disintegrating tablet Indications: Migraine without aura and without status migrainosus, not intractable Take 1 tab po every other day 15 tablet 11 05/22/2024 Active rOPINIRole 0.25 mg oral tablet (15 sources) Nonergot Dopamine Agonist Start: 11-11-19 End: 07-07-20 take 0.5-1 tablets by mouth once daily at bedtime rOPINIRole (REQUIP) 0.25 mg tablet Indications: Periodic limb movement disorder Take 0.5-1 tablets (0.125-0.25 mg total) by mouth Daily before evening meal. Can take second dose at bedtime if needed. 60 tablet 2 11/11/2023 07/07/2024 Discontinued (Therapy completed) rosuvastatin calcium 20 mg oral tablet (20 sources) HMG-CoA Reductase Inhibitor Start: 09-02-19 End: 07-07-20 take 1 tablet by mouth in the morning rosuvastatin (CRESTOR) 20 mg tablet Indications: Primary hypertension , Coronary artery vasospasm (CMS-HCC) , Intermittent palpitations Take 1 tablet (20 mg total) by mouth in the morning. 90 tablet 5 09/02/2023 07/07/2024 Discontinued (Therapy completed) Start: 08-13-2022 End: 09-02-2023 take 1 tablet by mouth in the morning rosuvastatin (CRESTOR) 5 mg tablet Take 1 tablet (5 mg total) by mouth in the morning. 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 4 mL 03/27/2024 07/07/2024 Discontinued (Therapy completed) semaglutide, weight loss, (WEGOVY) 0.5 mg/0.5 mL pen injector (1 source) Start: 04-24-2024 End: 07-07-2024 semaglutide, weight loss, (WEGOVY) 0.5 mg/0.5 mL pen injector Indications: Coronary artery vasospasm ([facility] [place] , Primary hypertension , Hypercholesterolemia , Obstructive sleep apnea syndrome , Class 3 drug-induced obesity with serious comorbidity and body mass index (BMI) of 40.0 to 44.9 in adult ([facility] [place] Inject 0.5 mL (0.5 mg total) under the skin every 7 days. 4 mL 04/24/2024 07/07/2024 Discontinued (Therapy completed) sertraline 100 mg oral tablet (20 sources) Serotonin Reuptake Inhibitor Start: 03-13-2013 End: 08-27-2024 take 1 tablet by mouth once daily sertraline (ZOLOFT) 100 mg tablet Indications: Fibromyalgia , Rheumatoid factor positive Take 1 tablet by mouth once daily. 30 tablet 5 08/27/2024 Active Comment on above: Take 100 mg by mouth once daily. SUMAtriptan 100 mg oral tablet (20 sources) Serotonin-1b and Serotonin-1d Receptor Agonist Start: 09-29-2023 SUMAtriptan (IMITREX) 100 mg tablet 09/29/2023 Active Start: 03-10-2023 End: 08-04-2024 SUMAtriptan (IMITREX) 100 mg tablet Take 1 tablet (100 mg total) by mouth once as needed for migraine. May repeat in 2 hours if unresolved. Do not exceed 200 mg in 24 hours. 9 tablet 11 08/05/2023 08/04/2024 Active tiZANidine 4 mg oral tablet (15 sources) Central alpha-2 Adrenergic Agonist Start: 03-10-2023 End: 07-07-2024 take 1 tablet by mouth once daily tiZANidine (ZANAFLEX) 4 mg tablet Take 1-2 tablets (4-8 mg total) by mouth nightly. 60 tablet 2 08/05/2023 Active 24 hr tofacitinib 11 mg extended release oral tablet (15 sources) Start: 06-01-2024 End: 06-14-2024 take 1 tablet by mouth once daily tofacitinib (XELJANZ XR) 11 mg tablet, extended release Indications: Seropositive rheumatoid arthritis of multiple sites (HCC) Take 1 tablet (11 mg) by mouth once daily. 90 tablet 06/14/2024 Active topiramate 50 mg oral tablet (20 sources) Start: 02-19-2024 take 1 tablet by mouth once daily topiramate (TOPAMAX) 50 MG tablet Take 1 tablet by mouth daily 02/19/2024 Active Start: 02-16-2024 End: 03-21-2024 topiramate (TOPAMAX) 50 mg t ablet Indications: Migraine without aura and without status migrainosus, not intractable Take 1/2 tab po BID for one week. Week 2 take 1 tab po BID and continue this dose 60 tablet 11 02/16/2024 03/21/2024 Discontinued Start: 03-06-2021 End: 11-17-2023 take 1 tablet by mouth once daily at bedtime topiramate (TOPAMAX) 100 mg tablet Take 100 mg by mouth daily at bedtime. 0 03/06/2021 11/17/2023 Discontinued Start: 03-27-2013 topiramate (TO PAMAX) 25 MG tablet Take 25 mg by mouth. 0 03/27/2013 Active Comment on above: Take 100 mg by mouth daily at bedtime. zonisamide 100 mg oral capsule (20 sources) Anti-epileptic Agent Start: 11-17-2023 take 1 capsule by mouth once daily at dinner zonisamide (ZONEGRAN) 100 mg capsule TAKE 1 CAPSULE (100 MG TOTAL) BY MOUTH DAILY BEFORE EVENING MEAL. 30 capsule 2 11/17/2023 Active Start: 06-20-2023 End: 03-22-2024 take 1 capsule by mouth once daily in the morning, then take 2 capsules by mouth once daily at bedtime zonisamide (ZONEGRAN) 100 mg capsule Indications: Migraine without aura and with status migrainosus, not intractable Take 1 cap po QAM and 2 cap QHS 90 capsule 11 03/22/2024 Active Start: 03-10-2023 End: 08-05-2023 take 1-3 capsules by mouth once daily at dinner zonisamide (ZONEGRAN) 25 mg capsule Take 1-3 capsules (25-75 mg total) by mouth Daily before evening meal. 42 capsule 0 03/10/2023 08/05/2023 Discontinued Completed/Discontinued Medications Medication Drug Class(es) Dates Sig (Normalized) Sig (Original) aluminum hydroxide 40 mg/ml / magnesium hydroxide 40 mg/ml / simethicone 4 mg/ml oral suspension (1 source) Start: 07-14-2024 End: 07-14-2024 30 mL, Swish & Swallow, ONCE, 1 dose, On 07/14/24 at 1045 baclofen 5 mg oral tablet (11 sources) gamma-Aminobutyric Acid-ergic Agonist Start: 11-17-2023 End: 05-15-2024 take 1 tablet by mouth every eight hours as needed baclofen 5 mg tablet Take 1 tablet by mouth three times a day as needed. 90 tablet 5 11/17/2023 01/25/2024 Discontinued betamethasone 3 mg/ml / betamethasone acetate 3 mg/ml injectable suspension (2 sources) Corticosteroid Start: 08-24-2024 End: 08-24-2024 betamethasone acet & sod phos (CELESTONE) injection 12 mg Start: 08-24-2024 End: 08-24-2024 12 mg, intra-articular, Once , On 08/24/24 at 0845, For 1 dose, May alter blood glucose or insulin requirements. diphenhydrAMINE (2 sources) Histamine-1 Receptor Antagonist Start: 08-05-2023 End: 08-05-2023 diphenhydrAMINE (BENADRYL) injection 50 mg 1 ml etanercept 50 mg/ml prefilled syringe (20 sources) Tumor Necrosis Factor Salvador Start: 11-03-2023 Etanercept Active MG SUBCUT November 03, 2023 12:00am FreeTextSi.5 mL Subcutaneous; Note: Source Status: Taking; Provider: Rossi Yoder ( ) Start: 09-24-2021 inject 0.5 mL by sub cutaneous injection every week, then inject 1 mL by subcutaneous injection every week etanercept (ENBREL) 50 MG/ML injection 0.5 mLs once a week Inject 1 milliliter by subcutaneous route every week. Tuesday09/24/2021 Active Start: 11-27-2020 End: 07-07-2024 EnbreL 50 mg/mL (1 mL) injec tion 09/24/2021 Active Enbrel 25 MG/0.5 ML 0.5 mL Subcutaneous Active Comment on above: Inject 50mg sq qwkly hydroxychloroquine sulfate 200 mg oral tablet (20 sources) Antimalarial, Antirheumatic Agent Start: 2022 End: 2023 take 1 tablet by mouth twice daily hydrOXYchloroQUINE (PLAQUENIL) 200 mg tablet TAKE 1 TABLET BY MOUTH TWICE A DAY 60 tablet 3 03/07/2023 11/17/2023 Discontinued Start: 08-07-2015 End: 08-05-2023 take 1 tablet [...] for Pain 20 tablet 0 01/19/2021 Active leflunomide 10 mg oral tablet (11 sources) Antirheumatic Agent Start: 01-27-2024 End: 06-01-2024 take 1 tablet by mouth once daily leflunomide (ARAVA) 10 mg tablet Take 1 tablet by mouth once daily. 30 tablet 2 01/27/2024 06/01/2024 Discontinued levothyroxine sodium 0.05 mg oral tablet (20 [...] 80 mg/ml injection (20 sources) Corticosteroid Start: 06-01-20 End: 06-01-20 methylPREDNISolone acetate 80 mg injection (DEPO-Medrol) Start: 06-01-2024 End: 06-01-2024 inject 1 dose by intramuscular injection once 80 mg, INTRAMUSCULAR, ONCE, 1 dose, On Tue06/01/24 at 1530 Start: 08-11-2022 End: 08-11-2022 methylPREDNISolone acetate 8 0 mg injection (DEPO-Medrol) Start: 05-17-2022 End: 11-17-2023 methylPREDNISolone (MEDROL, MARYBEL,) 4 mg Dose-Pack As Instructed per package 21 tablet 0 05/17/2022 11/17/2023 Discontinued Start: 05-17-2022 methylPREDNISo lone (MEDROL, MARYBEL,) 4 mg Dose-Pack As Instructed per package 21 tablet 0 05/17/2022 Active Comment on above: As Instructed per pa kanwal 1 ml promethazine hydrochloride 25 mg/ml injection [...] mg subcu taneously one time a week. 1 ml triamcinolone acetonide 40 mg/ml injection (7 sources) Corticosteroid Start: 06-24-2023 End: 06-24-2023 triamcinolone acetonide 80 mg injection (KeNALog 40) Start: 07-30-2022 Kenalog-40 May, 40 mg Problems Active Problems Problem Classification Problem Date Documented Date Episodic/Chronic Anxiety disorders (16 sources) Anxiety; Translations: [Anxiety disorder, unspecified] Onset: 8 08-07-2020 Chronic Asthma (18 sources) Asthma without status asthmaticus; Translations: [Unspecified asthma, uncomplicated] Onset: 0 09-26-2019 Chronic Cardiac dysrhythmias (16 sources) Postural orthostatic tachycardia syndrome ; Translations: [Postural orthostatic tachycardia syndrome] Onset: 0 09-07-2022 Chronic Coagulation and hemorrhagic disorders (1 source) Thrombocytopenia, unspecified; Translations: [Thrombocytopenia, unspecified] Onset: 4 Chronic Coronary atherosclerosis and other heart disease (19 sources) Coronary artery spasm; Translations: [Angina pectoris with documented spasm] Onset: 2 09-07-2022 Chronic Disorders of lipid metabolism (19 sources) Hypercholesterolemia; Translations: [Pure hypercholesterolemia, unspecified] Onset: 0 09-26-2019 Chronic Endometriosis (16 sources) Endometriosis (clinical); Translations: [Endometriosis, unspecified] Onset: 0 09-26-2019 Chronic Esophageal disorders (16 sources) Gastroesophageal reflux disease; Translations: [Gastro-esophageal reflux disease without esophagitis] Onset: 0 09-26-2019 Chronic Essential hypertension (20 sources) Hypertensive disorder; Translations: [Essential (primary) hypertension] Onset: 2 09-07-2022 Chronic Genitourinary symptoms and ill-defined conditions (17 sources) Incontinence without sensory awareness; Translations: [Incontinence without sensory awareness] Onset: 0 09-26-2019 Chronic Headache; including migraine (20 sources) Refractory migraine variants; Translations: [Migraine with aura, intractable, without status migrainosus] Onset: 0 03-25-2021 Chronic Immunizations and screening for infectious disease (1 source) Rheumatoid factor positive; Translations: [Other specified abnormal immunological findings in serum] 08-27-2024 Episodic Joint disorders and dislocations; trauma-related (1 source) Unspecified tear of unspecified meniscus, current injury, left knee, initial encounter; Translations: [Unspecified tear of unspecified meniscus, current injury, left knee, initial encounter] Onset: 5 Episodic Nausea and vomiting (1 source) Nausea; Translations: [Nausea] Onset: 4 Episodic Nutritional deficiencies (20 sources) Vitamin D deficiency; Translations: [Vitamin D deficiency, unspecified] Onset: 9 11-05-2018 Chronic Nutritional deficiencies (1 source) Cobalamin deficiency; Translations: [Deficiency of other specified B group vitamins] 12-02-2023 Episodic Osteoarthritis (2 sources) Osteoarthritis of left knee joint; Translations: [Unilateral primary osteoarthritis, left knee] Onset: 5 08-24-2024 Chronic Other aftercare (2 sources) Taking high risk medication; Translations: [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] 10-14-2023 Episodic Other congenital anomalies (1 source) Bifid patella; 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] 08-24-2024 Chronic Other congenital anomalies (1 source) Congenital malformation of knee; 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] Onset: 5 Chronic Other connective tissue disease (1 source) Neuropathic pain; Translations: [Neuralgia and neuritis, unspecified] Episodic Other connective tissue disease (20 sources) Fibromyalgia; Translations: [Fibromyalgia] Onset: 0 Episodic Other connective tissue disease (2 sources) [...] Episodic Other connective tissue disease (1 source) Spasm; Translations: [Other muscle spasm] 12-02-2023 Episodic Other connective tissue disease (1 source) Cramp; Translations: [Cramp and spasm] 12-02-2023 Episodic Other diseases of bladder and urethra (1 source) Overactive bladder; Translations: [Overactive bladder] 08-27-2024 Chronic Other endocrine disorders (16 sources) Polycystic ovary; Translations: [Polycystic ovarian syndrome] [...] vitreous opacities, bilateral] Onset: 4 Chronic Other hereditary and degenerative nervous system conditions (20 sources) Restless legs; Translations: [Restless legs syndrome] Onset: 4 11-11-2023 Chronic Other hereditary and degenerative nervous system conditions (1 source) Restless legs syndrome; Translations: [Restless legs syndrome] Onset: 4 Chronic Other injuries and conditions due to external causes (1 source) Other injury of unspecified body region, initial encounter; Translations: [Other injury of unspecified body region, initial encounter] Onset: 4 Episodic Other liver diseases (1 source) Liver disease, unspecified; Translations: [Liver disease, unspecified] Onset: 4 Chronic Other liver diseases (2 sources) Fatty (change of) liver, not elsewhere classified; Translations: [Fatty (change of) liver, not elsewhere classified] Onset: 4 Chronic Other liver diseases (2 sources) Enzyme level - finding; Translations: [Abnormal levels of other serum enzymes] Episodic Other nervous system disorders (16 sources) Chronic pain; Translations: [Other chronic pain] [...] Translations: [Myelopathy (HCC)] Onset: 4 Chronic Other non-traumatic joint disorders (2 sources) Pain in right elbow; Translations: [Pain in joint, upper arm] Episodic Other non-traumatic joint disorders (1 source) Pain in elbow; Translations: [Pain in right elbow] 11-01-2023 Episodic Other non-traumatic joint disorders (1 source) Hip pain; Translations: [Pain in left hip] 11-25-2023 Episodic Other non-traumatic joint disorders (1 source) Joint stiffness; Translations: [Stiffness of unspecified joint, not elsewhere classified] 06-01-2024 Episodic Other non-traumatic joint disorders (4 sources) Pain in left knee; Translations: [Pain in joint, lower leg] Onset: 4 07-07-2024 Episodic Other non-traumatic joint disorders (1 source) Knee pain Onset: 4 Episodic Other nutritional; endocrine; and metabolic disorders (20 sources) Obese class I; Translations: [Obesity, unspecified] Onset: 9 10-30-2018 Chronic Other nutritional; endocrine; and metabolic disorders (16 sources) Insulin resistance; Translations: [Insulin resistance] Onset: 0 09-26-2019 Chronic Other nutritional; endocrine; and metabolic disorders (16 sources) Metabolic syndrome X; Translations: [Metabolic syndrome X] Onset: 3 06-24-2021 Chronic Other nutritional; endocrine; and metabolic disorders (1 source) Rudolph obesity; Translations: [Obesity, unspecified] 11-17-2023 Chronic Other nutritional; endocrine; and metabolic disorders (20 sources) Body mass index 40+ - severely obese; Translations: [Morbid (severe) obesity due to excess calories] Onset: 4 12-02-2023 Chronic Other nutritional; endocrine; and metabolic disorders (3 sources) Obesity, unspecified; Translations: [Obesity, unspecified] Onset: 2 Chronic Other nutritional; endocrine; and metabolic disorders (4 sources) Drug-induced obesity; Translations: [Class 3 drug-induced obesity with body mass index (BMI) of 40.0 to 44.9 in adult] Onset: 2 03-27-2024 Chronic Other nutritional; endocrine; and metabolic disorders (1 source) Drug-induced obesity; Translations: [Drug-induced obesity] Onset: 4 Chronic Other nutritional; endocrine; and metabolic disorders (1 source) Body mass index (BMI) 40.0-44.9, adult; Translations: [Body mass index (BMI) 40.0-44.9, adult] Onset: 4 Chronic Other skin disorders (1 source) Loss of hair; Translations: [Nonscarring hair loss, unspecified] 11-14-2023 Episodic Other upper respiratory infections (1 source) Acute sinusitis, unspecified Episodic Otitis media and related conditions (1 source) Otitis media, unspecified, right ear Episodic Poisoning by other medications and drugs (2 sources) Accidental methotrexate overdose; Translations: [Poisoning by antineoplastic and immunosuppressive drugs, accidental (unintentional), subsequent encounter] Onset: 4 07-14-2024 Episodic Prolapse of female genital organs (1 source) Muscle atrophy; Translations: [Pelvic muscle wasting] 08-27-2024 Chronic Residual codes; unclassified (20 sources) Unrefreshed by sleep; Translations: [Other sleep disorders] Onset: 1 03-25-2021 Chronic Residual codes; unclassified (20 sources) Obstructive sleep apnea syndrome; Translations: [Obstructive sleep apnea (adult) (pediatric)] Onset: 0 03-25-2021 Chronic Residual codes; unclassified (17 sources) Periodic limb movement disorder; Translations: [Periodic limb movement disorder] Onset: 0 09-26-2019 Chronic Residual codes; unclassified (1 source) Obstructive sleep apnea (adult) (pediatric); Translations: [Obstructive sleep apnea (adult) (pediatric)] Onset: 3 Chronic Residual codes; unclassified (1 source) Periodic limb movement disorder; Translations: [Periodic limb movement disorder] Onset: 0 Chronic Residual codes; unclassified (1 source) Pain Onset: 5 Episodic Retinal detachments; defects; vascular occlusion; and retinopathy (8 sources) Bilateral bullous retinoschisis; Translations: [Other retinoschisis and retinal cysts, bilateral] Onset: 4 10-14-2023 Chronic Rheumatoid arthritis and related disease (20 sources) Rheumatoid arthritis of multiple joints; Translations: [Rheumatoid arthritis, unspecified] Onset: 0 Chronic Systemic lupus erythematosus and connective tissue disorders (16 sources) Autoimmune disease; 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, unspecified] Onset: 0 09-26-2019 Chronic Thyroid disorders (16 sources) Acquired hypothyroidism; Translations: [Hypothyroidism, unspecified] Onset: [...] source) Procedure Onset: 4 Urinary tract infections (3 sources) Acute cystitis without hematuria; Translations: [Urinary tract infection, site not specified] Onset: 4 08-27-2024 Episodic Past or Other Problems Problem Classification Problem Date Documented Da te Episodic/Chronic Abdominal pain (6 sources) Abdominal pain; Translations: [Unspecified abdominal pain] Onset: 3 03-28-2013 Episodic Blindness and vision defects (20 sources) Diplopia; Translations: [Diplopia] Onset: 9 11-05-2018 Episodic Cancer of cervix (16 sources) Cervicovaginal cytology: Low grade squamous intraepithelial lesion; Translations: [Low grade squamous intraepithelial lesion on cytologic smear of cervix (LGSIL)] Onset: 0 09-26-2019 Episodic Cardiac dysrhythmias (18 sources) Intermittent palpitations; Translations: [Palpitations] Onset: 8 08-21-2021 Episodic Coma; stupor; and brain damage (20 sources) Daytime somnolence; Translations: [Somnolence] Onset: 9 11-05-2018 Episodic Conditions associated with dizziness or vertigo (20 sources) Vertigo; Translations: [Dizziness and giddiness] Onset: 0 09-26-2019 Episodic Gastrointestinal hemorrhage (16 sources) Blood-tinged feces; Translations: [Melena] Onset: 5 06-24-2021 Episodic Heart valve disorders (20 sources) Mitral valve regurgitation; Translations: [Nonrheumatic mitral (valve) insufficiency] Onset: 0 Resolved: 4 09-14-2022 Chronic Malaise and fatigue (20 sources) Fatigue; Translations: [Other fatigue] Onset: 9 11-05-2018 Episodic Mood disorders (16 sources) Mood disorders Onset: 3 Resolved: 4 09-06-2022 Nonspecific chest pain (20 sources) Chest pain; Translations: [Chest pain, unspecified] Onset: 6 09-22-2021 Episodic Other aftercare (1 source) Other retirement (current) drug therapy; Translations: [Other retirement (current) drug therapy] Onset: 4 Episodic Other circulatory disease (1 source) Postural orthostatic tachycardia syndrome ; Translations: [Postural orthostatic tachycardia syndrome (POTS)] Onset: 3 Episodic Other connective tissue disease (20 sources) Muscle pain; Translations: [Myalgia, unspecified site] Onset: 9 11-05-2018 Episodic Other connective tissue disease (20 sources) Myofascial pain syndrome; Translations: [Myalgia, other site] Onset: 1 03-25-2021 Episodic Other connective tissue disease (18 sources) Muscle spasm of cervical muscle of neck; Translations: [Other muscle spasm] Onset: 0 09-26-2019 Episodic Other connective tissue disease (2 sources) Myalgia, unspecified site; Translations: [Myalgia] Onset: 9 Episodic Other connective tissue disease (1 source) Fibromyalgia; Translations: [Fibromyalgia] Onset: 0 Episodic Other connective tissue disease (1 source) Other muscle spasm; Translations: [Other muscle spasm] Onset: 0 Episodic Other connective tissue disease (1 source) Personal history of other diseases of the musculoskeletal system and connective tissue; Translations: [Personal history of other diseases of the musculoskeletal system and connective tissue] Onset: 4 Episodic Other disorders of stomach and duodenum (16 sources) Gastroparesis syndrome; Translations: [Gastroparesis] Onset: 0 09-26-2019 Episodic Other ear and sense organ disorders (1 source) Other specified disorders of ear, bilateral; Translations: [Other specified disorders of ear, bilateral] Onset: 4 Episodic Other gastrointestinal disorders (6 sources) Abdominal bloating; Translations: [Abdominal distension (gaseous)] Onset: 3 03-28-2013 Episodic Other gastrointestinal disorders (20 sources) Altered bowel function; Translations: [Other specified symptoms and signs involving the digestive system and abdomen] Onset: 4 11-11-2023 Episodic Other lower respiratory disease (16 sources) Dyspnea on exertion; Translations: [Shortness of breath] Onset: 5 08-21-2021 Episodic Other lower respiratory disease (2 sources) Shortness of breath; Translations: [Shortness of breath] Onset: 4 Episodic Other nervous system disorders (20 sources) Muscle fasciculation; Translations: [Fasciculation] Onset: 9 11-05-2018 Episodic Other nervous system disorders (20 sources) Muscle twitch; Translations: [Fasciculation] Onset: 1 03-25-2021 Episodic Other nervous system disorders (20 sources) Paresthesia; Translations: [Paresthesia of skin] Onset: 0 09-26-2019 Episodic Other nervous system disorders (20 sources) Skin sensation disturbance; Translations: [Unspecified disturbances of skin sensation] Onset: 4 11-11-2023 Episodic Other nervous system disorders (20 sources) Involuntary movement; Translations: [Unspecified abnormal involuntary movements] Onset: 4 11-11-2023 Episodic Other nervous system disorders (2 sources) Paresthesia of skin; Translations: [Paresthesias] Onset: 0 Episodic Other nervous system disorders (1 source) Unspecified abnormal involuntary movements; Translations: [Abnormal involuntary movement] Onset: 4 Episodic Other nervous system disorders (1 source) Unspecified disturbances of skin sensation; Translations: [Disturbance of skin sensation] Onset: 4 Episodic Other non-traumatic joint disorders (20 sources) Joint swelling; Translations: [Effusion, unspecified joint] Onset: 3 01-04-2023 Episodic Other non-traumatic joint disorders (20 sources) Multiple joint pain; Translations: [Pain in unspecified joint] Onset: 3 01-04-2023 Episodic Other non-traumatic joint disorders (1 source) Pain in unspecified joint; Translations: [Pain in joint, multiple sites] Onset: 4 Episodic Other nutritional; endocrine; and metabolic disorders (16 sources) Body mass index 30+ - obesity; Translations: [Obesity, unspecified] Onset: 2 Resolved: 4 09-22-2021 Chronic Other nutritional; endocrine; and metabolic disorders (20 [...] Onset: 0 04-21-2018 Episodic Other skin disorders (20 sources) Skin finding; Translations: [Unspecified skin changes] Onset: 3 01-04-2023 Episodic Other skin disorders (1 source) Nonscarring hair loss, unspecified; Translations: [Hair loss] Onset: 4 Episodic Residual codes; unclassified (20 sources) Disturbance in sleep behavior; Translations: [Sleep disorder, unspecified] Onset: 9 11-05-2018 Episodic Residual codes; unclassified (1 source) Pain, unspecified; Translations: [Pain, unspecified] Onset: 4 Episodic Spondylosis; intervertebral disc disorders; other back problems (20 sources) Neck pain; Translations: [Cervicalgia] Onset: 0 09-26-2019 Episodic Sprains and strains (16 sources) Strain of flexor muscle of hip; Translations: [Strain of muscle, fascia and tendon of unspecified hip, initial encounter] Onset: 3 06-24-2021 Episodic Syncope (16 sources) Syncope and collapse; Translations: [Syncope and collapse] Onset: 4 Resolved: 8 04-26-2018 Episodic Unclassified (16 sources) Onset: 8 12-21-2017 Results Test Name Value Interpretation Reference Range Facility [facility] 08-27-2024 [facility] Telephone (SUNGUAV) LYNETTE HAIRSTON ([id number]) 1975 F Date Time Provider Department 08/27/24 NOEMI PHAM During your visit today, we recorded the following information about you: Brianda Palomares LPN 08/27/2024 12:11 PM Addendum Called and left vm message for patient to call back [phone] and ask for triage nurse. Need to know what pharmacy Zofran needs to go to My chart message sent also. Patient has been identified by name and date of : Yes, Provider Dr. Pham Date 08/27/2024 Time 11:45 am Type of form: [employer] stating that Zofran is not filled through Specialty pharmacy Form received via: Fax When form is completed, contact Tried to call patient to see what pharmacy Zofran needs to go to. Form has been forwarded to: Letter sent to EVE Phillip Pauline M, LPN 08/27/2024 2:16 PM Signed Pended medication needs to go to different pharmacy [facility]. Most recent Rheumatology visit: 06/01/2024 (with Noemi Pham) Last Bone Density on file: None on file Rheumatology Care Team: None on file Recent Office Visits - This Specialty 06/01/2024 Rheumatoid arthritis involving multiple sites, unspecified whether rheumatoid factor present (HCC) Rheumatology Noemi Pham MD 01/27/2024 Rheumatoid arthritis involving multiple sites, unspecified whether rheumatoid factor present (HCC) Rheumatology Noemi Pham MD 06/24/2023 Pain in joint, multiple sites Rheumatology Noemi Pham MD Upcoming Rheumatology Appointments - Next 365 Days Visit Type Date Time Department [facility] 10/05/2024 11:00 AM [facility] REJ CBC: Latest Ref Rng AND Units 06/24/2023 06/01/2024 CBC WBC 3.70 - 11.00 k/uL 8.95 8.09 Hemoglobin 11.5 - 15.5 g/dL 15.5 14.5 Hematocrit 36.0 - 46.0 % 45.7 41.5 Platelet Count 150 - 400 k/uL 192 167 Vitamin D: None on file in the last 6 months LFT: Latest Ref Rng AND Units 06/24/2023 06/01/2024 CMP Sodium 136 - 144 mmol/L 140 141 Potassium 3.7 - 5.1 mmol/L 4.2 3.8 Chloride 98 - 107 mmol/L 105 105 CO2 22 - 30 mmol/L 27 25 Glucose 74 - 99 mg/dL 94 132 BUN 7 - 21 mg/dL 12 10 Creatinine 0.58 - 0.96 mg/dL 1.10 0.84 Calcium 8.5 - 10.2 mg/dL 9.5 9.6 AST 13 - 35 U/L 39 65 ALT 7 - 38 U/L 46 78 Alkaline Phosphatase 34 - 123 U/L 46 56 Hepatic Function: Creatinine: Latest Ref Rng AND Units 06/24/2023 06/01/2024 Creatinine Creatinine 0.58 - 0.96 mg/dL 1.10 0.84 ESR/CRP: Latest Ref Rng AND Units 11/17/2023 06/01/2024 ESR, WSR WSR 0 - 20 mm/hr 25 35 Latest Ref Rng AND Units 11/17/2023 06/01/2024 CRP CRP <0.9 mg/dL 0.7 1.1 Uric Acid: None on file in the last 6 months Open Standing (Multiple Instance) Lab Orders Remain Interval Expires Ordered Last Rel. HEPATIC FUNCTION PNL [SQHFP] 07/05 Every 2 months 07/11/25 07/11/24 Auth. provider: Noemi Pham MD Assoc. diagnoses: Seropositive rheumatoid arthritis of multiple sites (HCC) Open Future (Single Instance) Lab Orders None Brianda Palomares LPN 08/27/2024 2:16 PM Signed Addended by: BRIANDA PALOMARES on: 08/27/2024 02:16 PM Modules accepted: Orders Noemi Pham MD 08/27/2024 3:18 PM Signed The following approved medication requests have been transmitted electronically. Requested Prescriptions Signed Prescriptions Disp Refills sertraline (ZOLOFT) 100 mg tablet 30 tablet 5 Sig: Take 1 tablet by mouth once daily. Authorizing Provider: NOEMI PHAM MD Mathai, Susan P, MD 08/27/2024 3:18 PM Signed Addended by: NOEMI PHAM on: 08/27/2024 03:18 PM Modules accepted: Orders Allergies As of Date: 08/27/2024 Noted Allergy Reaction MELOXICAM 11/23/2016 4 - Hives Comments: METHOTREXATE 12/25/2014 8 - GI Upset Date Reviewed: 06/01/2024 Reviewed by: Tommie Patrick LPN - Fully Assessed Reason for Visit: Medication Problem [65] Visit Diagnoses:Fibromyalgi a [M79.7] Rheumatoid factor positive [R76.8] Order(s):sertraline (ZOLOFT) 100 mg tabletTake 1 tablet by mouth once daily.Disp: 30 tabletRfl: 5 Prescriptions as of 08/27/2024 - sertraline (ZOLOFT) 100 mg tablet Take 1 tablet by mouth once daily. - ondansetron (ZOFRAN) 4 mg tablet Take 1 tablet by mouth every 12 hours as needed. - methotrexate 2.5 mg tablet TAKE 4 TABS PO QWK FOR 2WKS THEN INCREASE TO 6 TABS PO QWK - tofacitinib (XELJANZ XR) 11 mg tablet, extended release Take 1 tablet (11 mg) by mouth once daily. - amitriptyline (ELAVIL) 25 mg tablet Take 1/2 tab po QHS for one week. Week 2 increase to 1 tab QHS and continue this dose - rimegepant (NURTEC ODT) 75 mg disintegrating tablet Take 1 tab po every other day - ergocalciferol 50,000 unit capsule (VITAMIN D2, DRISDOL) TAKE 1 CAPSULE BY MOUTH ONE TIME A WEEK. - SUMAtriptan (IMITREX) 100 mg tablet - metoprolol tartrate, short acting, (LOPRESSOR) 25 mg tablet Take 12.5 mg by mouth once daily. - omeprazole (more content not included)... Normal [facility] Measure post void residualon 08-24-2024 Volume 5 ML [facility] POCT urinalysis dipstick on yOrdered By: Keyla Leung on 08-24-2024 Appearance (U) CLOUDY [facility] External Poct Urine Blood Negative [facility] External Poct Urine Color YELLOW [facility] External Poct Urine Glucose Negative [facility] External Poct Urine Ketones Negative [facility] External Poct Urine Leukocyte Esterase Negative [facility] External Poct Urine Nitrite Negative [facility] External Poct Urine Ph 5 [facility] External Poct Urine Protein Negative [facility] PLATELET FUNCTION SCREENon 0 08-10-2024 COLLAGEN+EPINEPHRINE INDUCED (SEC) IN BLD 99 sec Normal 82-159 [facility] Comment on above: Order Comment: Plate let function is normal. If patient history/physical examination gives strong indication of a bleeding disorder, repeat testing for confirmation. If still normal, consider platelet aggregation testing and platelet electron microscopy. If the patient is on a platelet inhibiting drug, a normal study might indicate resistance to that drug. Performed By: #### L [id number] #### [facility] (BEAKER) [address] [place] [address] PLATELET FUNCTION (CLOSURE TIME) COLLAGEN+ADP INDUCED (SEC) IN BLD 80 sec Normal 56-110 [facility] Comment on above: Order Comment: Plate let function is normal. If patient history/physical examination gives strong indication of a bleeding disorder, repeat testing for confirmation. If still normal, consider platelet aggregation testing and platelet electron microscopy. If the patient is on a platelet inhibiting drug, a normal study might indicate resistance to that drug. Performed By: #### L [id number] #### [facility] (BEAKER) [address] [place] [address] MR KNEE LT WO CONTon 025 MR KNEE LT WO CONT MR KNEE LT WO CONT HISTORY and Tech Notes: Left knee pain, unspecified chronicity; Tear of left meniscus as current injury, initial encounter Persistent pain for a month PROCEDURE: MRI of the left knee Noncontrast study COMPARISON: July 07 FINDINGS: No significant suprapatellar effusion seen. Trace fluid in the suprapatellar region There is mild edema around the patella There is a small Hood's cyst. There is abnormal serpiginous signal in the mid and upper patella which looks like a nondistracted fracture It is somewhat more intense over the apex and mid upper pole. There is no contusion in the lateral femoral condyle typical of a recent dislocation There is some edema in the anterior medial femoral condyle There is slight inferior position of the patella without signs of quadriceps rupture. The patellar tendon looks intact. The ACL looks intact with some fluid within and around the ACL sheath The PCL looks intact. MCL looks intact Lateral collateral ligament complex looks intact. No tibial plateau fracture or significant contusion is seen There is mild thinning of articular cartilage without osteochondral defect or significant arthritic change otherwise. There is mild irregularity of the medial meniscus likely some peripheral degenerative fraying but no discrete tear or cyst seen The lateral meniscus looks intact. There is a small amount of fluid in the lateral recess. . IMPRESSION: Findings most consistent with a healing nondisplaced reactive nondisplaced fracture through the mid and upper patella. There is only trace effusion and mild periarticular edema, slight inferior positioning of the patella perhaps related to some quadriceps weakness and laxity There is mild to moderate patellofemoral arthritic change and chondromalacia without contusion pattern otherwise typical of a recent lateral patellar dislocation There are mild degenerative changes slightly greater medially but no discrete meniscal tear or ligament rupture otherwise seen . . Finalized by Vito Sharp MD on 08/03/2024 5:42 PM Normal [facility] Basic Metab w/rfx MGon 07-14 Anion gap [Moles/Vol] 10 mmol/L Normal 9-16 [facility] Comment on above: Performed By: #### M ETHOT, BMPX, LIVP, CDP, PT #### [facility] [address] [place] [id number] Import Export Clerk: Scotty Muñoz MD Calcium [Mass/Vol] 9.0 mg/dL Normal 8.6-10.4 [facility] Comment on above: Performed By: #### M ETHOT, BMPX, LIVP, CDP, PT #### [facility] [address] [place] [address]22 Import Export Clerk: Scotty Muñoz MD Chloride [Moles/Vol] 103 mmol/L Normal 98-107 [facility] Comment on above: Performed By: #### M ETHOT, BMPX, LIVP, CDP, PT #### [facility] [address] [place] [address] 48596 Import Export Clerk: Scotty Muñoz MD CO2 [Moles/Vol] 24 mmol/L Normal 20-31 [facility] Comment on above: Performed By: #### M ETHOT, BMPX, LIVP, CDP, PT #### [facility] [address] [place] [address] [phone] Import Export Clerk: Scotty Muñoz MD Creatinine [Mass/Vol] 0.8 mg/dL Normal 0.6-0.9 [facility] Comment on above: Performed By: #### M ETHOT, BMPX, LIVP, CDP, PT #### [facility] [address] [place] [address] 19795 Import Export Clerk: Scotty Muñoz MD GFR/1.73 sq M.predicted among non-blacks MDRD (S/P/Bld) [Vol rate/Area] mL/min/{1.73_m2} Normal >60 [facility] Comment on above: Result Comment: These results are not intended for use in patients <18 years of age. eGFR results are calculated without a race factor using the 2020 CKD-EPI equation. Careful clinical correlation is recommended, particularly when comparing to results calculated using previous equations. The CKD-EPI equation is less accurate in patients with extremes of muscle mass, extra-renal metabolism of creatine, excessive creatine ingestion, or following therapy that affects renal tubular secretion. Performed By: #### M ETHOT, BMPX, LIVP, CDP, PT #### [employer] [address] [place] [address] 47946 Import Export Clerk: Scotty Muñoz MD Glucose [Mass/Vol] 106 mg/dL High 74-99 [facility] Comment on above: Performed By: #### M ETHOT, BMPX, LIVP, CDP, PT #### [facility] [address] [place] [address] 72691 Import Export Clerk: Scotty Muñoz MD Potassium [Moles/Vol] 3.8 mmol/L Normal 3.7-5.3 [facility] Comment on above: Performed By: #### M ETHOT, BMPX, LIVP, CDP, PT #### [facility] [address] [place] [address] 34379 Import Export Clerk: Scotty Muñoz MD Sodium [Moles/Vol] 137 mmol/L Normal 136-145 [facility] Comment on above: Performed By: #### M ETHOT, BMPX, LIVP, CDP, PT #### [employer] [address] [place] [address] 33448 Import Export Clerk: Scotty Muñoz MD Urea nitrogen [Mass/Vol] 13 mg/dL Normal 6-20 [facility] Comment on above: Performed By: #### M ETHOT, BMPX, LIVP, CDP, PT #### [facility] [address] [place] [address] 25009 Import Export Clerk: Scotty Muñoz MD Basic Metabolic Panel w/ Ref preston to MGon 12-21-2024 Anion gap [Moles/Vol] 10 mmol/L 9 - 16 mmol/L [facility] Calcium [Mass/Vol] 9.0 mg/dL 8.6 - 10. 4 mg/dL [facility] Chloride [Moles/Vol] 103 mmol/L 98 - 10 7 mmol/L [facility] CO2 [Moles/Vol] 24 mmol/L 20 - 31 mmol/L [facility] Creatinine [Mass/Vol] 0.8 mg/dL 0.6 - 0.9 mg/dL [facility] Est, Gloreba Filt Rate - PINF [facility] Comment on above: These results are not intended for use in patients <18 years of age. eGFR results are calculated without a race factor using the 2020 CKD-EPI equation. Careful clinical correlation is recommended, particularly when comparing to results calculated using previous equations. The CKD-EPI equation is less accurate in patients with extremes of muscle mass, extra-renal metabolism of creatine, excessive creatine ingestion, or following therapy that affects renal tubular secretion. Glucose [Mass/Vol] 106 mg/dL High 74 - 99 mg/dL [facility] Potassium [Moles/Vol] 3.8 mmol/L 3.7 - 5.3 mmol/L [facility] Sodium [Moles/Vol] 137 mmol/L 136 - 145 mmol/L [facility] Urea nitrogen [Mass/Vol] 13 mg/dL 6 - 20 mg/dL [facility] CBC with Auto Differentialon 07-14-2024 Basophils (Bld) [#/Vol] 0.04 10*3/uL [facility] Basophils/100 WBC (Bld) 1 % 0 - 2 % [facility] Eosinophils (Bld) [#/Vol] 0.22 10*3/uL [facility] Eosinophils/100 WBC (Bld) 3 % 1 - 4 % [facility] Erythrocyte distribution width (RBC) [Ratio] 11.8 % 11.8 - 14.4 % [facility] Hematocrit (Bld) [Volume fraction] 38.9 % 36.3 - 47.1 % [facility] Hemoglobin (Bld) [Mass/Vol] 13.3 g/dL 11.9 - 15.1 g/dL [facility] Immature granulocytes (Bld) [#/Vol] 0.03 10*3/uL [facility] Immature granulocytes/100 WBC (Bld) 0 % 0 [facility] Interpretation and review of laboratory results Abnormal [facility] Lymphocytes/100 WBC (Bld) 26 % 24 - 43 % [facility] Lymphocytes/100 WBC (Bld) 1.76 % [facility] MCH (RBC) [Entitic mass] 31.2 pg 25.2 - 33.5 pg [facility] MCHC (RBC) [Mass/Vol] 34.2 g/dL 28.4 - 34.8 g/dL [facility] MCV (RBC) [Entitic vol] 91.3 fL 82.6 - 102.9 fL [facility] Monocytes/100 WBC (Bld) 3 % 3 - 12 % [facility] Monocytes/100 WBC (Bld) 0.18 % [facility] Neutrophils/100 WBC (Bld) 67 % High 36 - 65 % [facility] Nucleated RBC/100 WBC (Bld) [Ratio] 0.0 % 0.0 per 100 WBC [facility] Platelet, Fluorescence Platelet clumps present, count appears adequate. [facility] Platelets (Bld) [#/Vol] See Reflexed IPF Result [facility] RBC (Bld) [#/Vol] 4.26 10*6/uL 3.95 - 5.1 1 m/uL [facility] Segmented neutrophils/100 WBC (Bld) 4.47 % [facility] WBC other (Bld) [#/Vol] 6.7 [facility] CBC with Diffon 07-14-2024 Platelet, Fluoresc. Platelet clumps present, count appears adequate. Normal 138-453 [facility] Comment on above: Performed By: #### M ETHOT, BMPX, LIVP, CDP, PT #### [facility] [address] [place] [address] 43608 Import Export Clerk: Scotty Muñoz MD Abs. Basophil 0.04 k/uL Normal 0.00-0.20 [facility] Comment on above: Performed By: #### M ETHOT, BMPX, LIVP, CDP, PT #### [place] [address] Import Export Clerk: Scotty Muñoz MD Abs.Imm.Granulocyte 0.03 k/uL Normal 0.00-0.30 [facility] Comment on above: Performed By: #### M ETHOT, BMPX, LIVP, CDP, PT #### [place] [address] Import Export Clerk: Scotty Muñoz MD Abs.Neutrophil (Seg) 4.47 k/uL Normal 1.50-8.10 [facility] Comment on above: Performed By: #### M ETHOT, BMPX, LIVP, CDP, PT #### [place] [address] Import Export Clerk: Scotty Muñoz MD Basophils/100 WBC (Bld) 1 % Normal 0-2 [facility] Comment on above: Performed By: #### M ETHOT, BMPX, LIVP, CDP, PT #### [place] [address] Import Export Clerk: Scotty Muñoz MD Eosinophils (Bld) [#/Vol] 0.22 10*3/uL Normal 0.00-0.44 [facility] Comment on above: Performed By: #### M ETHOT, BMPX, LIVP, CDP, PT #### [place] [address] Import Export Clerk: Scotty Muñoz MD Eosinophils/100 WBC (Bld) 3 % Normal 1-4 [facility] Comment on above: Performed By: #### M ETHOT, BMPX, LIVP, CDP, PT #### [facility] [address] [place] [address] 07286 Import Export Clerk: Scotty Muñoz MD Erythrocyte distribution width (RBC) [Ratio] 11.8 % Normal 11.8-14.4 [facility] Comment on above: Performed By: #### M ETHOT, BMPX, LIVP, CDP, PT #### [address] [address] Import Export Clerk: Scotty Muñoz MD Hematocrit (Bld) [Volume fraction] 38.9 % Normal 36.3-47.1 [facility] Comment on above: Performed By: #### M ETHOT, BMPX, LIVP, CDP, PT #### [address] [address] Import Export Clerk: Scotty Muñoz MD Hemoglobin (Bld) [Mass/Vol] 13.3 g/dL Normal 11.9-15.1 [facility] Comment on above: Performed By: #### M ETHOT, BMPX, LIVP, CDP, PT #### [address] [address] Import Export Clerk: Scotty Muñoz MD Immature granulocytes/100 WBC (Bld) 0 % Normal 0 [facility] Comment on above: Performed By: #### M ETHOT, BMPX, LIVP, CDP, PT #### [facility] [address] [place] [address] 97714 Import Export Clerk: Scotty Muñoz MD Lymphocytes (Bld) [#/Vol] 1.76 10*3/uL Normal 1.10-3.70 [facility] Comment on above: Performed By: #### M ETHOT, BMPX, LIVP, CDP, PT #### [facility] [address] [place] [address] 23895 Import Export Clerk: Scotty Muñoz MD Lymphocytes/100 WBC (Bld) 26 % Normal 24-43 [facility] Comment on above: Performed By: #### M ETHOT, BMPX, LIVP, CDP, PT #### [facility] [address] [place] [address] 16213 Import Export Clerk: Scotty Muñoz MD MCH (RBC) [Entitic mass] 31.2 pg Normal 25.2-33.5 [facility] Comment on above: Performed By: #### M ETHOT, BMPX, LIVP, CDP, PT #### [facility] [address] [place] [address] 36094 Import Export Clerk: Scotty Muñoz MD MCHC (RBC) [Mass/Vol] 34.2 g/dL Normal 28.4-34.8 [facility] Comment on above: Performed By: #### M ETHOT, BMPX, LIVP, CDP, PT #### [address] [address] Import Export Clerk: Scotty Muñoz MD MCV (RBC) [Entitic vol] 91.3 fL Normal 82.6-102.9 [facility] Comment on above: Performed By: #### M ETHOT, BMPX, LIVP, CDP, PT #### [address] [address] Import Export Clerk: Scotty Muñoz MD Monocytes (Bld) [#/Vol] 0.18 10*3/uL Normal 0.10-1.20 [facility] Comment on above: Performed By: #### M ETHOT, BMPX, LIVP, CDP, PT #### [facility] [address] [place] [address] 70102 Import Export Clerk: Scotty Muñoz MD Monocytes/100 WBC (Bld) 3 % Normal 3-12 [facility] Comment on above: Performed By: #### M ETHOT, BMPX, LIVP, CDP, PT #### [facility] [address] [place] [address] 97779 Import Export Clerk: Scotty Muñoz MD Neutrophil (Seg) 67 % High 36-65 [facility] Comment on above: Performed By: #### M ETHOT, BMPX, LIVP, CDP, PT #### [facility] [address] [place] [address] 64479 Import Export Clerk: Scotty Muñoz MD NRBC Automated 0.0 per 100 WBC Normal 0.0 [facility] Comment on above: Performed By: #### M ETHOT, BMPX, LIVP, CDP, PT #### [facility] [address] [place] [address] 14576 Import Export Clerk: Scotty Muñoz MD Platelet Count See Reflexed IPF Result Normal 138-453 [facility] Comment on above: Performed By: #### M ETHOT, BMPX, LIVP, CDP, PT #### [facility] [address] [place] [address] 66548 Import Export Clerk: Scotty Muñoz MD RBC (Bld) [#/Vol] 4.26 10*6/uL Normal 3.95-5.11 [facility] Comment on above: Performed By: #### M ETHOT, BMPX, LIVP, CDP, PT #### [facility] [address] [place] [address] 36527 Import Export Clerk: Scotty Muñoz MD WBC (Bld) [#/Vol] 6.7 10*3/uL Normal 3.5-11.3 [facility] Comment on above: Performed By: #### M ETHOT, BMPX, LIVP, CDP, PT #### [facility] [address] [place] [address] 61131 Import Export Clerk: Scotty Muñoz MD Hepatic Function Panelon Albumin [Mass/Vol] 3.9 g/dL 3.5 - 5.2 g/dL [facility] Albumin/Globulin [Mass ratio] 1.3 {ratio} 1.0 - 2.5 [facility] ALP [Catalytic activity/Vol] 59 U/L 35 - 104 U/L [facility] ALT [Catalytic activity/Vol] 121 U/L High 10 - 35 U/L [facility] AST [Catalytic activity/Vol] 90 U/L High 10 - 35 U/L [facility] Bilirubin [Mass/Vol] 1.5 mg/dL High 0.0 - 1 .2 mg/dL [facility] Bilirubin.direct [Mass/Vol] 0.6 mg/dL High 0.0 - 0.2 mg/dL [facility] Bilirubin.indirect [Mass/Vol] 0.9 mg/dL 0.0 - 1.0 mg/dL [facility] Globulin (S) [Mass/Vol] 3.0 g/dL [facility] Protein [Mass/Vol] 6.9 g/dL 6.6 - 8.7 g/dL [facility] Liver Profileon 07-14-2024 Albumin [Mass/Vol] 3.9 g/dL Normal 3.5-5.2 [facility] Comment on above: Performed By: #### M ETHOT, BMPX, LIVP, CDP, PT #### [employer] [address] [place] [address] [phone] Import Export Clerk: Scotty Muñoz MD Albumin/Glob Ratio 1.3 Normal 1.0-2.5 [facility] Comment on above: Performed By: #### M ETHOT, BMPX, LIVP, CDP, PT #### [employer] [address] [place], [place] [phone] Import Export Clerk: Scotty Muñoz MD Alkaline Phos 59 U/L Normal 35-104 [facility] Comment on above: Performed By: #### M ETHOT, BMPX, LIVP, CDP, PT #### [employer] [address] [place] [address] [phone] Import Export Clerk: Scotty Muñoz MD ALT [Catalytic activity/Vol] 121 U/L High 10-35 [facility] Comment on above: Performed By: #### M ETHOT, BMPX, LIVP, CDP, PT #### [facility] [address] [place] [address] 50025 Import Export Clerk: Scotty Muñoz MD AST [Catalytic activity/Vol] 90 U/L High 10-35 [facility] Comment on above: Performed By: #### M ETHOT, BMPX, LIVP, CDP, PT #### [facility] [address] [place] [address] 49167 Import Export Clerk: Scotty Muñoz MD Bilirubin [Mass/Vol] 1.5 mg/dL High 0.0-1.2 [facility] Comment on above: Performed By: #### M ETHOT, BMPX, LIVP, CDP, PT #### [facility] [address] [place] [address] 24266 Import Export Clerk: Scotty Muñoz MD Bilirubin, Indirect 0.9 mg/dL Normal 0.0-1.0 [facility] Comment on above: Performed By: #### M ETHOT, BMPX, LIVP, CDP, PT #### [facility] [address] [place] [address] 39526 Import Export Clerk: Scotty Muñoz MD Bilirubin.indirect [Mass/Vol] 0.6 mg/dL High 0.0-0.2 [facility] Comment on above: Performed By: #### M ETHOT, BMPX, LIVP, CDP, PT #### [facility] [address] [place] [address] 09283 Import Export Clerk: Scotty Muñoz MD Globulin (S) [Mass/Vol] 3.0 g/dL Normal [facility] Comment on above: Performed By: #### M ETHOT, BMPX, LIVP, CDP, PT #### [facility] [address] [place] [address] 82360 Import Export Clerk: Scotty Muñoz MD Protein [Mass/Vol] 6.9 g/dL Normal 6.6-8.7 [facility] Comment on above: Performed By: #### M ETHOT, BMPX, LIVP, CDP, PT #### [employer] [address] [place] [address] Import Export Clerk: Scotty Muñoz MD Methotrexateon 07-14-2024 Methotrexate <0.04 Normal [facility] Comment on above: Result Comment: Therapeutic Range: 24 hr serum conc.: 5.00 - 10.00 umol/L 48 hr serum conc.: 0.50 - 1.00 umol/L 72 hr serum conc.: 0.00 - 0.20 umol/L Result obtained using homogenous enzyme immunoassay method on [employer]. Results obtained with different assay methods cannot be used interchangeably. Performed By: #### M ETHOT, BMPX, LIVP, CDP, PT #### [employer] [address] [place] [address] 43608 Import Export Clerk: Scotty Muñoz MD Methotrexate levelon 024 Methotrexate Lvl <0.04 umol/L [facility] Comment on above: Therapeutic Range: 24 hr serum conc.: 5.00 - 10.00 umol/L 48 hr serum conc.: 0.50 - 1.00 umol/L 72 hr serum conc.: 0.00 - 0.20 umol/L Result obtained using homogenous enzyme immunoassay method on [employer]. Results obtained with different assay methods cannot be used interchangeably. [facility] No Panel Informationon 07-14 Interpretation and review of laboratory results Abnormal [facility] PTon 07-14-2024 INR Coag (PPP) [Relative time] 1.0 {INR} Normal [facility] Comment on above: Result Comment: Therapeutic Range: Moderate Anticoagulant Intensity: INR = 2.0-3.0 High Anticoagulant Intensity: INR = 2.5-3.5 Performed By: #### M ETHOT, BMPX, LIVP, CDP, PT #### [employer] [facility] [place] [address] Import Export Clerk: Scotty Muñoz MD PT Coag (PPP) [Time] 13.1 s Normal 11.7-14.9 [facility] Comment on above: Performed By: #### M ETHOT, BMPX, LIVP, CDP, PT #### [employer] [address] [place] [address] Import Export Clerk: Scotty Muñoz MD Protime-INRon 07-14-2024 INR Coag (PPP) [Relative time] 1.0 {INR} [facility] Comment on above: Therapeutic Range: Moderate Anticoagulant Intensity: INR = 2.0-3.0 High Anticoagulant Intensity: INR = 2.5-3.5 PT Coag (PPP) [Time] 13.1 s [facility] POLYMYOSITIS AND DERMATOMYOS ITIS PANELon 07-13-2024 EJ (GLYCYL-TRNA SYNTHETASE) ANTIBODY Negative Normal Negative [facility] Comment on above: Order Comment: Specjosé miguel del valle Type: BLOOD SPECIMEN Ordering Facility: [facility] Address: [address] [place] [address] Performed By: #### M YOSPL #### [employer] CLIA [id number] [address] [place] [address] ODALIS-1 (HISTIDYL-TRNA SYNTHETASE) AB, IGG 1 AU/mL Normal 0-40 [facility] Comment on above: Order Comment: Mert del valle Type: BLOOD SPECIMEN Ordering Facility: [facility] Address: [address] [place] [address] Result Comment: INTE RPRETIVE INFORMATION: Odalis-1 Antibody, IgG 29 AU/mL or less.........Negative 30-40 AU/mL..............Equivocal 41 AU/mL or greater......Positive Presence of Odalis-1 (antihistidyl transfer RNA [t-RNA] synthetase) antibody is associated with polymyositis and may also be seen in patients with dermatomyositis. Odalis-1 antibody is associated with pulmonary involvement (interstitial lung disease), Raynaud phenomenon, arthritis, and vehicle mechanic's hands (implicated in antisynthetase syndrome). Performed By: #### M YOSPL #### [employer] CLIA [id number] [address] [place] [address] MDA5 (CADM-140) AB Negative Normal Negative [facility] Comment on above: Order Comment: Speci men Type: BLOOD SPECIMEN Ordering Facility: [facility] Address: [address] [place] [address] Performed By: #### M YOSPL #### [facility] CLIA [id number] [address] [place] [address] IA-2 (NUCLEAR HELICASE PROTEIN) ANTIBODY Negative Normal Negative [facility] Comment on above: Order Comment: Speci men Type: BLOOD SPECIMEN Ordering Facility: [facility] Address: [address] [place] [address] Performed By: #### M YOSPL #### [id number] [address] [place] [address] MYOSITIS INTERPRETIVE INFORMATION See Note Normal [facility] Comment on above: Order Comment: Speci [facility] Type: BLOOD SPECIMEN Ordering Facility: [facility] Address: [address] [place] [address] Result Comment: INTE RPRETIVE INFORMATION: Dermatomyositis and Polymyositis Panel 2 If present, myositis-specific antibodies (MSA) are specific for myositis, and may be useful in establishing diagnosis as well as prognosis. MSAs are generally regarded as mutually exclusive with rare exceptions; the occurrence of two or more MSAs should be carefully evaluated in the context of patient's clinical presentation. Myositis-associated antibodies (MAA) may be found in patients with CTD, including overlap syndromes, and are generally not specific for myositis. The following table will help in identifying the association of any antibodies found as either MSAs or Kimber. Antibody Specificity . . . . . . . . . . . . MSA . . . . MAA Odalis-1 (histidyl-tRNA synthetase) Ab, IgG . . X PL-12 (alanyl-tRNA synthetase) Antibody . . X PL-7 (threonyl-tRNA synthetase) Antibody . . X EJ (glycyl-tRNA synthetase) Antibody . . . . X OJ (isoleucyl-tRNA synthetase) Antibody . . X SRP (Signal Recognition Particle) Ab . . . . X Mi-2 (nuclear helicase protein) Antibody . . X P155/140 Antibody . . . . . . . . . . . . . X TIF-1 gamma (155 kDA) Ab . . . . . . . . . X SAE1 (SUMO activating enzyme) Ab . . . . . . X MDA5 (CADM-140) Ab . . . . . . . . . . . . . X NXP2 (Nuclear matrix protein-2) Ab . . . . . X This test was developed and its performance characteristics determined by [employer]. It has not been cleared or approved by the [place] Food and Drug Administration. This test was performed in a CLIA certified laboratory and is intended for clinical purposes. Performed By: #### M YOSPL #### [facility] CLIA [id number] [address] [place] [address] NXP2 (NUCLEAR MATRIX PROTEIN-2) AB Negative Normal Negative [facility] Comment on above: Order Comment: Speci men Type: BLOOD SPECIMEN Ordering Facility: [facility] Address: [address] [place] [address] Performed By: #### M YOSPL #### [facility] CLIA [id number] [address] [place] [address] OJ (ISOLEUCYL-TRNA SYNTHETASE) ANTIBODY Negative Normal Negative [facility] Comment on above: Order Comment: Speci men Type: BLOOD SPECIMEN Ordering Facility: [facility] Address: [address] [place] [address] Performed By: #### M YOSPL #### [facility] CLIA [id number] [address] [place] [address] P155/140 ANTIBODY Negative Normal Negative [facility] Comment on above: Order Comment: Speci men Type: BLOOD SPECIMEN Ordering Facility: [facility] Address: [address] [place] [address] Result Comment: Perf ormed By: [employer] [address] [place] [address] Water Conservation Specialist: Vito Arteaga MD, PhD CLIA Number: [id number] Performed By: #### M YOSPL #### [facility] CLIA [id number] [address] [place] [address] PL-12 (ALANYL-TRNA SYNTHETASE) ANTIBODY Negative Normal Negative [facility] Comment on above: Order Comment: Speci men Type: BLOOD SPECIMEN Ordering Facility: [facility] Address: [address] [place] [address] Performed By: #### M YOSPL #### [facility] [id number] [address] [place] [address] PL-7 (THREONYL-TRNA SYNTHETASE) ANTIBODY Negative Normal Negative [facility] Comment on above: Order Comment: Speci men Type: BLOOD SPECIMEN Ordering Facility: [facility] Address: [address] [place] [address] Performed By: #### M YOSPL #### [facility] [id number] [address] [place] [address] SAE1 (SUMO ACTIVATING ENZYME) AB Negative Normal Negative [facility] Comment on above: Order Comment: Speci men Type: BLOOD SPECIMEN Ordering Facility: [facility] Address: [address] [place] [address] Performed By: #### M YOSPL #### [facility] [id number] [address] [place] [address] SRP (SIGNAL RECOGNITION PARTICLE) AB Negative Normal Negative [facility] Comment on above: Order Comment: Speci men Type: BLOOD SPECIMEN Ordering Facility: [facility] Address: [address] [place] [address] Performed By: #### M YOSPL #### [facility] [id number] [address] [place] [address] TIF-1 GAMMA (155 KDA) AB Negative Normal Negative [facility] Comment on above: Order Comment: Speci men Type: BLOOD SPECIMEN Ordering Facility: [facility] Address: [address] [place] [address] Performed By: #### M YOSPL #### [facility] [id number] [address] [place] [address] Mary 07-11-2024 NAVEED Telephone (HYUN) LYNETTE HAIRSTON ([id number]) 1975 F Date Time Provider Department 07/11/24 NOEMI PHAM During your visit today, we recorded the following information about you: Lucrecia Busby RN 07/11/2024 8:43 AM Addendum Patient calling. She has taken an overdose of her methotrexate 2.5mg tablets. Beginning on 07/06 through last night she has taken 4 tabs every day. Dosing was to be 4 tabs every week. Provided the patient with the poison control number, she will call now. Denies chest pain, shortness of breath. Has some dizziness and palpitations last night, none this morning. BP overnight was 99/65 Feels fatigued and lethargic. Agreeable to ED if symptoms worsen or new symptoms present Asking for next steps? CALL [phone] 8:31am: Office contacted, Spoke with Tommie GO TO THE EMERGENCY ROOM OR CALL 911 IF: * You develop any new symptoms * Your condition worsens * You are concerned or anxious about your condition for any other reason. If you have any questions, call back. Noemi Pham MD 07/11/2024 8:46 AM Signed Called patient, told her to hold the MTX for now, she is going to ER now per poison control. She took 4 tabs po every day for 5 days, total of 20 tabs. Told her to let me know results of labs, she will do so Denies any chest pain, sob, nausea or vomiting. Noemi Pham MD Allergies As of Date: 07/11/2024 Noted Allergy Reaction MELOXICAM 11/23/2016 4 - Hives Comments: METHOTREXATE 12/25/2014 8 - GI Upset Date Reviewed: 06/01/2024 Reviewed by: Tommie Patrick LPN - Fully Assessed Reason for Visit: Medication Question [2023] Cmt: Methotrexate Prescriptions as of 07/11/2024 - methotrexate 2.5 mg tablet TAKE 4 TABS PO QWK FOR 2WKS THEN INCREASE TO 6 TABS PO QWK - tofacitinib (XELJANZ XR) 11 mg tablet, extended release Take 1 tablet (11 mg) by mouth once daily. - amitriptyline (ELAVIL) 25 mg tablet Take 1/2 tab po QHS for one week. Week 2 increase to 1 tab QHS and continue this dose - rimegepant (NURTEC ODT) 75 mg disintegrating tablet Take 1 tab po every other day - ondansetron (ZOFRAN) 4 mg tablet Take 1 tablet by mouth every 12 hours as needed. - ergocalciferol 50,000 unit capsule (VITAMIN D2, DRISDOL) TAKE 1 CAPSULE BY MOUTH ONE TIME A WEEK. - SUMAtriptan (IMITREX) 100 mg tablet - metoprolol tartrate, short acting, (LOPRESSOR) 25 [...] once daily. Problem List As Of Date 07/11/2024 Noted Resolved Obesity, Class I, BMI 30-34.9 [E66.811] 10/30/2018 Fatigue [R53.83] 11/05/2018 Sleep disturbances [G47.9] [...] movement [R25.9] 11/22/2023 Restless legs [G25.81] 11/22/2023 Obesity, Class III, BMI >= 40 [E66.01] 12/02/2023 Seropositive rheumatoid arthritis of multiple s*06/14/2024 Encounter Status:Closed by NOEMI PHAM on 07/11/24 Normal [facility] XR KNEE LT 3 VWSon XR KNEE LT 3 VWS XR KNEE LT 3 VWS History: Medial pain. No known injury Study: Left Knee Three view study. Comparison: None Impression: No acute abnormality in the left knee.No effusion. No evidence of fracture or healing fracture. No patellar fracture. If pain or concern persists consider progress imaging follow-up. No chondromalacia. Finalized by Argelia Sousa MD on 07/07/2024 11:00 AM [facility] XR Knee - left 3 Viewson History: Medial pain . No known injury Study: Left Knee Three view study. Comparison: None Impression: No acute abnormality in the left knee.No effusion. No evidence of fracture or healing fracture. No patellar fracture. If pain or concern persists consider progress imaging follow-up. No chondromalacia. Finalized by Argelia Sousa MD on 07/07/2024 11:00 AM [facility] Argelia Sousa MD - 07/07/2024 History: Medial pain. No known injury Study: Left Knee Three view study. Comparison: None Impression: No acute abnormality in the left knee.No effusion. No evidence of fracture or healing fracture. No patellar fracture. If pain or concern persists consider progress imaging follow-up. No chondromalacia. Finalized by Argelia Sousa MD on 07/07/2024 11:00 AM [facility] Radiology Study observation (narrative) [employer] XR Knee - left 3 ViewsOrdere d By: Argelia Sousa on 07-07-2024 [employer] Work Phone: Mary 06-29-2024 [facility] Telephone (NEADFV) LYNETTE HAIRSTON ([id number]) 1975 F Date Time Provider Department 06/29/24 DANITA BOBFV During your visit today, we recorded the following information about you: Hali Susan Herman 06/29/2024 1:55 PM Signed Israel at [facility] at [phone] is requesting a call back [facility]. She also stated it needs step therapy. Prateek Jhaveri, BANDAR 06/29/2024 2:23 PM Signed Spoke with claims customer service representative Marjorie at [facility] her pharmacy services director. She asked for additional details as to at least 2 tried medications and/or any triptans needed. Said that she will submit the information and if anything else is needed for the PA then they will fax a request to our office. Lorena Hilton 07/09/2024 4:12 PM Signed Becky, from [facility], called back today stating they have no record of a [facility]. Please call her at [phone], ext [phone]. She will be available from 8-5 eastern time to take the info over the phone. Aye Morrissey, BANDAR 07/09/2024 4:39 PM Signed I spoke with Becky at [facility]. She states that [facility] was to send us the PA. I spoke to [facility], (different than where rx was sent) [phone]. They are going to submit again to [facility]. Aye Morrissey RN 07/10/2024 9:20 AM Signed PA completed via EMR. [facility] notified. Patient notified via [employer]. Approved Prior authorization approved Payer: [employer] [phone] Note from payer: CaseId:[id number];Statu s:Approved;Review Type:Prior Auth;Coverage Start Date:06/10/2024;Cover age End Date:10/08/2024; Approval Details Authorized from June 10, 2024 to October 08, 2024 Electronic appeal: Not supported Allergies As of Date: 06/29/2024 Noted Allergy Reaction MELOXICAM 11/23/2016 4 - Hives Comments: METHOTREXATE 12/25/2014 8 - GI Upset Date Reviewed: 06/01/2024 Reviewed by: Tommie Patrick LPN - Fully Assessed Reason for Visit: Rx prior authorization [Other] Prescriptions as of 07/10/2024 - methotrexate 2.5 mg tablet TAKE 4 TABS PO QWK FOR 2WKS THEN INCREASE TO 6 TABS PO QWK - tofacitinib (XELJANZ XR) 11 mg tablet, extended release Take 1 tablet (11 mg) by mouth once daily. - amitriptyline (ELAVIL) 25 mg tablet Take 1/2 tab po QHS for one week. Week 2 increase to 1 tab QHS and continue this dose - rimegepant (NURTEC ODT) 75 mg disintegrating tablet Take 1 tab po every other day - ondansetron (ZOFRAN) 4 mg tablet Take 1 tablet by mouth every 12 hours as needed. - ergocalciferol 50,000 unit capsule (VITAMIN D2, DRISDOL) TAKE 1 CAPSULE BY MOUTH ONE TIME A WEEK. - SUMAtriptan (IMITREX) 100 mg tablet - metoprolol tartrate, short acting, (LOPRESSOR) 25 [...] once daily. Problem List As Of Date 06/29/2024 Noted Resolved Obesity, Class I, BMI 30-34.9 [E66.811] 10/30/2018 Fatigue [R53.83] 11/05/2018 Sleep disturbances [G47.9] [...] movement [R25.9] 11/22/2023 Restless legs [G25.81] 11/22/2023 Obesity, Class III, BMI >= 40 [E66.01] 12/02/2023 Seropositive rheumatoid arthritis of multiple s*06/14/2024 Encounter Status:Closed by PRATEEK JHAVERI on 06/29/24 [facility] Telephone (NEIND4) LYNETTE HAIRSTON ([id number]) 1975 F Date Time Provider Department 06/29/24 DANITA BOB NEIND4 During your visit today, we recorded the following information about you: Allergies As of Date: 06/29/2024 Noted Allergy Reaction MELOXICAM 11/23/2016 4 - Hives Comments: METHOTREXATE 12/25/2014 8 - GI Upset Date Reviewed: 06/01/2024 Reviewed by: Tommie Patrick LPN - Fully Assessed Prescriptions as of 06/29/2024 - tofacitinib (XELJANZ XR) 11 mg tablet, extended release Take 1 tablet (11 mg) by mouth once daily. - amitriptyline (ELAVIL) 25 mg tablet Take 1/2 tab po QHS for one week. Week 2 increase to 1 tab QHS and continue this dose - rimegepant (NURTEC ODT) 75 mg disintegrating tablet Take 1 tab po every other day - ondansetron (ZOFRAN) 4 mg tablet Take 1 tablet by mouth every 12 hours as needed. - ergocalciferol 50,000 unit capsule (VITAMIN D2, DRISDOL) TAKE 1 CAPSULE BY MOUTH ONE TIME A WEEK. - SUMAtriptan (IMITREX) 100 mg tablet - metoprolol tartrate, short acting, (LOPRESSOR) 25 [...] once daily. Problem List As Of Date 06/29/2024 Noted Resolved Obesity, Class I, BMI 30-34.9 [E66.811] 10/30/2018 Fatigue [R53.83] 11/05/2018 Sleep disturbances [G47.9] [...] movement [R25.9] 11/22/2023 Restless legs [G25.81] 11/22/2023 Obesity, Class III, BMI >= 40 [E66.01] 12/02/2023 Seropositive rheumatoid arthritis of multiple s*06/14/2024 Encounter Status:Closed by DANITA BOB on 06/29/24 Normal [facility] EMG(NEURO/NI)on 06-26-2024 Results can be seen in attached scanned documents. If you are a patient reviewing this test result, call the doctor who ordered the test with any questions. [facility] Aldolase SerPl-cCncon 2023 Aldolase [Catalytic activity/Vol] 15.7 mU/mL High 1.5-8.1 [facility] Comment on above: Order Comment: Mert del valle Type: BLOOD SPECIMEN Ordering Facility: [facility] Address: [address] [place] [address] Result Comment: This test was developed, and its performance characteristics determined by the [facility] Department of Pathology and Laboratory Medicine. It has not been cleared or approved by the FDA. The [facility] Department of Pathology and Laboratory Medicine is regulated under CLIA as qualified to perform high-complexity testing. This test is used for clinical purposes. It should not be regarded as investigational or for research. Performed By: #### 1 761-6 #### [facility] CLIA [id number] [address] [place], [place] [address] [place] [address] [place] C-REACTIVE PROTEINon 024 CRP [Mass/Vol] 1.1 mg/dL High NINF - 0.9 mg/dL [facility] CBC panel Auto (Bld)on 06-01 Erythrocyte distribution width (RBC) [Ratio] 12.1 % 11.5 - 15.0 % [facility] Hematocrit (Bld) [Volume fraction] 41.5 % 36.0 - 46.0 % [facility] Hemoglobin (Bld) [Mass/Vol] 14.5 g/dL 11.5 - 15.5 g/dL [facility] Interpretation and review of laboratory results Normal [facility] MCH (RBC) [Entitic mass] 31.7 pg 26.0 - 34.0 pg [facility] MCHC (RBC) [Mass/Vol] 34.9 g/dL 30.5 - 36.0 g/dL [facility] MCV (RBC) [Entitic vol] 90.8 fL 80.0 - 100.0 fL [facility] Nucleated RBC (Bld) [#/Vol] NINF [facility] Platelet mean volume (Bld) [Entitic vol] 11.2 fL 9.0 - 12.7 fL [facility] Platelets (Bld) [#/Vol] 167 10*3/uL [facility] RBC (Bld) [#/Vol] 4.57 10*6/uL 3.90 - 5.2 0 m/uL [facility] WBC (Bld) [#/Vol] 8.09 10*3/uL [facility] Erythrocyte distribution width (RBC) [Ratio] 12.1 % Normal 11.5-15.0 [facility] Comment on above: Order Comment: Speci men Type: BLOOD SPECIMEN Ordering Facility: [facility] Address: [address] [place] [address] Performed By: #### 5 8410-2 #### [facility] CLIA [id number] [address] [place] [address] [place] Hematocrit (d) [Volume fraction] 41.5 % Normal 36.0-46.0 [facility] Comment on above: Order Comment: Speci men Type: BLOOD SPECIMEN Ordering Facility: [facility] Address: [address] [place] [address] Performed By: #### 5 8410-2 #### [facility] IA [id number] [address] [place] [address] [place] Hemoglobin (Bld) [Mass/Vol] 14.5 g/dL Normal 11.5-15.5 [facility] Comment on above: Order Comment: Speci men Type: BLOOD SPECIMEN Ordering Facility: [facility] Address: [address] [place] [address] Performed By: #### 5 8410-2 #### [facility] CLIA [id number] [place] [address] [place] MCH (RBC) [Entitic mass] 31.7 pg Normal 26.0-34.0 [facility] Comment on above: Order Comment: Speci men Type: BLOOD SPECIMEN Ordering Facility: [facility] Address: [address] [place] [address] Performed By: #### 5 8410-2 #### [facility] CLIA [id number] [address] [place] [address] [place] MCHC (RBC) [Mass/Vol] 34.9 g/dL Normal 30.5-36.0 [facility] Comment on above: Order Comment: Speci men Type: BLOOD SPECIMEN Ordering Facility: [facility] Address: [address] [place] [address] Performed By: #### 5 8410-2 #### [facility] CLIA [id number] [place] [address] [place] MCV (RBC) [Entitic vol] 90.8 fL Normal 80.0-100.0 [facility] Comment on above: Order Comment: Speci men Type: BLOOD SPECIMEN Ordering Facility: [facility] Address: [address] [place] [address] Performed By: #### 5 8410-2 #### [facility] CLIA [id number] [address] [place], [place] [id number] [place] [address] [place] Nucleated RBC (Bld) [#/Vol] 10*3/uL Normal <0.01 [facility] Comment on above: Order Comment: Speci men Type: BLOOD SPECIMEN Ordering Facility: [facility] Address: [address] [place] [address] Performed By: #### 5 8410-2 #### [facility] CLIA [id number] [address] [place] [address] [place] Platelet mean volume (Bld) [Entitic vol] 11.2 fL Normal 9.0-12.7 [facility] Comment on above: Order Comment: Speci men Type: BLOOD SPECIMEN Ordering Facility: [facility] Address: [address] [place] [address] Performed By: #### 5 8410-2 #### [facility] CLIA [id number] [address] [place] [address] [place] Platelets (Bld) [#/Vol] 167 10*3/uL Normal 150-400 [facility] Comment on above: Order Comment: Speci men Type: BLOOD SPECIMEN Ordering Facility: [facility] Address: [address] [place] [address] Performed By: #### 5 8410-2 #### [facility] CLIA [id number] [address] [place] [address] [place] RBC (Bld) [#/Vol] 4.57 10*6/uL Normal 3.90-5.20 [facility] Comment on above: Order Comment: Speci men Type: BLOOD SPECIMEN Ordering Facility: [facility] Address: [address] [place] [address] Performed By: #### 5 8410-2 #### [facility] CLIA [id number] [facility] WBC (Bld) [#/Vol] 8.09 10*3/uL Normal 3.70-11.00 [facility] Comment on above: Order Comment: Speci men Type: BLOOD SPECIMEN Ordering Facility: [facility] Address: [address] [place] [address] Performed By: #### 5 8410-2 #### [facility] IA [id number] [address] [place] [address] [place] CK SerPl-cCncon 06-01-2024 CK [Catalytic activity/Vol] 180 U/L Normal 42-196 [facility] Comment on above: Order Comment: Speci men Type: BLOOD SPECIMEN Ordering Facility: [facility] Address: [address] [place] [address] Performed By: #### 2 4323-8, 1987-, 2156-12 #### [facility] IA [id number] [address] [place] CK [Catalytic activity/Vol]o n 06-01-2024 Interpretation and review of laboratory results Normal [facility] CNOVon 06-01-2024 CNOV Office Visit (HYUN ) LYNETTE HAIRSTON ([id number]) 1975 F Date Time Provider Department 06/01/24 3:20 PM NOEMI PHAM During your visit today, we recorded the following information about you: Pulse Respiration Blood pressure Weight 116/minute 18/minute 117/87 116.2 kg Height 1.676 m Noemi Pham MD 06/01/2024 3:22 PM Signed Lynette Prince is a 48 year old female who presents for follow up: for RA LABS RF+,>650, elevated aldolase levels,slightly increased sed rate and crp EMG of rt upper and lower extremities- normal PREVIOUS DIAG myalgias- h/o FM - diagnosed in 2009, chronic back pain RA and 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- elevated aldolase and complaints of weakness pleurisy gastropresis Thoracic Outlet syndrome Lowered GFR with cloud urine- due to see nephrology INTERVAL HISTORY since last visit,has worsening arthraligas and myalgias Pain in all joints today All joints and muscles hurt Stiffness is worsening No red hot swollen joints per say No rash, ulcers, fevers, swollen lymph nodes, [...] started on 11/11- feels it is helping Cymbalta- causes goose bumps Currently on Enbrel and plaquenil bid Arava- did not start due to liver fibrosis Xeljanz- started on 06/17 REVIEW OF SYSTEMS PAST MEDICAL HISTORY Diagnosis Date Fibromyalgia Hypothyroidism Migraines MARINE (obstructive sleep apnea) POTS (postural orthostatic tachycardia syndrome) Restless leg syndrome Rheumatoid arthritis (HCC) No past surgical history on file. rimegepant (NURTEC ODT) 75 mg disintegrating tablet Take 1 tab po every other day zonisamide (ZONEGRAN) 100 mg capsule Take 1 cap po QAM and 2 cap QHS ondansetron (ZOFRAN) 4 mg tablet Take 1 tablet by mouth every 12 hours as needed. leflunomide (ARAVA) 10 mg tablet Take 1 tablet by mouth once daily. Etanercept (ENBREL) 50 mg/mL (1 mL) injection INJECT 50 MG UNDER THE SKIN WEEKLY rosuvastatin (CRESTOR) 20 mg tablet SUMAtriptan (IMITREX) 100 mg tablet metoprolol tartrate, short acting, (LOPRESSOR) 25 mg tablet Take 12.5 mg by mouth once daily. omeprazole (PRILOSEC) 40 mg capsule Take 40 mg by mouth once daily. ibuprofen (MOTRIN) 800 mg tablet Take 800 mg by mouth as needed. ARIPiprazole (ABILIFY) 2 mg tablet Take 2 mg by mouth once daily. busPIRone (BUSPAR) 10 mg tablet Take 10 mg by mouth three times daily. COMPOUNDED PRESCRIPTION Handicapped placard Diagnosis- RA Cannot walk >200 ft Duration- 3 yrs sertraline (ZOLOFT) 100 mg tablet Take 100 mg by mouth once daily. ergocalciferol 50,000 unit capsule (VITAMIN D2, DRISDOL) TAKE 1 CAPSULE BY MOUTH ONE TIME A WEEK. FAMILY HISTORY Problem Relation Age of Onset Systemic Lupus Erythematosus Mother Systemic Lupus Erythematosus Daughter Social History Tobacco Use Smoking status: Never Smokeless tobacco: Never Substance Use Topics Alcohol use: Yes Comment: Occasional Drug use: Never BP 117/87 Pulse 116 Resp 18 Ht 167.6 cm (5' 5.98 ) Wt 116.2 kg (256 lb 2.8 oz) BMI 41.37 kg/m? PE; ambulates slow and stiff. Appears to be in no distress, very pleasant Pain on palpation of all joints All joints are tender Swelling of bilateral ankles MOST RECENT LABS: REVIEWED WITH PATIENT IMP/PLAN: RA/FM- feels arthralgias and em stiffness are wrosening Stiffness has worsened Can hardly get out car. Very difficult to do any ADL due to pain and stiffness -will continue to stay off plaquenil, stopped due to rash of face -will stop Enbrel -plan was to start low dose arava at 5mg po every day she has worsening arthralgias and stiffness -start xeljanz. NO CI noted -depo medrol for acute myalgias -start oral prednisone at 10m gpo every day for one week,then 5mg po every day therafter Bilateral hip pain - chronic bursitis, given CS injection and helped for a few days Lowered GFR and cloudy urine -under care of nephrology, work up in progress -avoid nsaids for now Liver abn -fatty liver and liver fibrosis -liver biopsy showed steatohepatitis with perisinusoidal fibrosis F/U in 6m Noemi Pham MD F/U: 6m Check following: -none MD Hao Lopez Trena, LPN 06/01/2024 3:22 PM Signed Methylprednisolone 80mg verified. Allergies As of Date: 06/01/2024 Noted Allergy Reaction MELOXICAM 11/23/2016 4 - Hives Comments: METHOTREXATE 12/25/2014 8 - GI Upset Date Reviewed: 06/01/2024 Reviewed by: Tommie Patrick LPN - Fully Assessed Reason for Visit: Follow Up [171] Primary Visi (more content not included)... Normal [facility] LYNET[facility] HAIRSTON ([id number]) 1975 F Date Time Provider Department 06/01/24 NOEMI PHAM During your visit today, we recorded the following information about you: Tommie Patrick LPN 06/01/2024 4:08 PM Signed Your PA for Xeljanz has been faxed to the plan as a paper copy. Please contact the plan directly if you haven't received a determination in a typical timeframe. You will be notified of the determination electronically and via fax. How do I know if the plan approved the PA? Add Reminder to your Dashboard Remind me in: 5 business days Contact plan to follow up on [id number] Located in [facility] Inocencia Bui LPN 06/06/2024 9:57 AM Signed Called express scripts as Cover My meds has not been in operation. No prior authorization on file. Verbal PA initiated. Currently pending as office notes needed. Office notes faxed via TRIRIGA. Tommie Patrick LPN 06/06/2024 11:37 AM Signed Patient has been identified by name and date of : Yes, Provider Ankit Date 06/06/24 Time 11:36 AM Type of form: Prior Authorization - [facility] office documents have been received on . Case has recently been approved. Nor further action required. Autofax Form received via: Fax Form has been forwarded to: Sent for scanning EVE Mayorga Brionna, LPN 06/07/2024 11:56 AM Signed Patient has been identified by name and date of : Yes, Provider Ankit Date 06/07/24 Time 11:55 AM Type of form: Prior Authorization - Provider Appeal form Form received via: Fax When form is completed, fax form to fax number provided. [phone] Form has been forwarded to: Provider's mailbox. Provider name: EVE Key Trena, LPN 06/11/2024 12:40 PM Signed Approval received from [employer]. 05/07/2024-12/03/2024 Letter sent to scanning. Allergies As of Date: 06/01/2024 Noted Allergy Reaction MELOXICAM 11/23/2016 4 - Hives Comments: METHOTREXATE 12/25/2014 8 - GI Upset Date Reviewed: 06/01/2024 Reviewed by: Tommie Patrick LPN - Fully Assessed Reason for Visit: Insurance Authorization [1693] Cmt: Xeljanz Prescriptions as of 06/11/2024 - tofacitinib (XELJANZ XR) 11 mg tablet, extended release Take 1 tablet (11 mg) by mouth once daily. - predniSONE (DELTASONE) 10 mg tablet Take 1 tab po qd - rimegepant (NURTEC ODT) 75 mg disintegrating tablet Take 1 tab po every other day - zonisamide (ZONEGRAN) 100 mg capsule Take 1 cap po QAM and 2 cap QHS - ondansetron (ZOFRAN) 4 mg tablet Take 1 tablet by mouth every 12 hours as needed. - ergocalciferol 50,000 unit capsule (VITAMIN D2, DRISDOL) TAKE 1 CAPSULE BY MOUTH ONE TIME A WEEK. - rosuvastatin (CRESTOR) 20 mg tablet - SUMAtriptan (IMITREX) 100 mg tablet - metoprolol tartrate, short acting, (LOPRESSOR) 25 [...] once daily. Problem List As Of Date 06/01/2024 Noted Resolved Obesity, Class I, BMI 30-34.9 [E66.811] 10/30/2018 Fatigue [R53.83] 11/05/2018 Sleep disturbances [G47.9] [...] movement [R25.9] 11/22/2023 Restless legs [G25.81] 11/22/2023 Obesity, Class III, BMI >= 40 [E66.01] 12/02/2023 Letter Text Encounter Status:Closed by TOMMIE PATRICK on 06/01/24 [facility] Telephone (YABUYUAV) LYNETTE HAIRSTON ([id number]) 1975 F Date Time Provider Department 06/01/24 NOEMI PHAM YABUYWINIFRED During your visit today, we recorded the following information about you: Abdias Swartz 06/01/2024 3:14 PM Signed Patient stopped at check out desk requesting a refill for ZOFRAN. Thank you. Allergies As of Date: 06/01/2024 Noted Allergy Reaction MELOXICAM 11/23/2016 4 - Hives Comments: METHOTREXATE 12/25/2014 8 - GI Upset Date Reviewed: 06/01/2024 Reviewed by: Tommie Patrick LPN - Fully Assessed Prescriptions as of 06/01/2024 - tofacitinib (XELJANZ XR) 11 mg tablet, extended release Take 1 tablet (11 mg) by mouth once daily. - predniSONE (DELTASONE) 10 mg tablet Take 1 tab po qd - rimegepant (NURTEC ODT) 75 mg disintegrating tablet Take 1 tab po every other day - zonisamide (ZONEGRAN) 100 mg capsule Take 1 cap po QAM and 2 cap QHS - ondansetron (ZOFRAN) 4 mg tablet Take 1 tablet by mouth every 12 hours as needed. - ergocalciferol 50,000 unit capsule (VITAMIN D2, DRISDOL) TAKE 1 CAPSULE BY MOUTH ONE TIME A WEEK. - rosuvastatin (CRESTOR) 20 mg tablet - SUMAtriptan (IMITREX) 100 mg tablet - metoprolol tartrate, short acting, (LOPRESSOR) 25 [...] once daily. Problem List As Of Date 06/01/2024 Noted Resolved Obesity, Class I, BMI 30-34.9 [E66.811] 10/30/2018 Fatigue [R53.83] 11/05/2018 Sleep disturbances [G47.9] [...] movement [R25.9] 11/22/2023 Restless legs [G25.81] 11/22/2023 Obesity, Class III, BMI >= 40 [E66.01] 12/02/2023 Encounter Status:Closed by ABDIAS SWARTZ on 06/01/24 Normal [facility] CREATINE KINASE/CKon 024 CK [Catalytic activity/Vol] 180 U/L 42 - 196 U/L [facility] CRP SerPl-mCncon 06-01-2024 CRP [Mass/Vol] 1.1 mg/dL High <0.9 [facility] vandana Comment on above: Order Comment: Speci men Type: BLOOD SPECIMEN Ordering Facility: [facility] Address: [address] [place] [address] Performed By: #### 2 4328, 1987-11, 2156-12 #### [facility] CLIA [id number] [facility] [place] [address] [facility] Clinical Pathologyon 024 Clinical Pathology Normal [facility] Comment on above: Result Comment: [facility] [address] [place] [address] Clinical Pathology Report Patient Name:LYNETTE HAIRSTON:1975 (Age: 48)Gender:FTaken:4Reported:4Physician(s):Toy Carmona MD ([phone])Copy To: Rec. #:[id number]: #[id number] Final Pathologic Diagnosis Sub-optimal platelet aggregation in response to arachidonic acid; Borderline normal response to ADP and low-dose collagen on Hodan-aggregation study, consistent with an intrinsic platelet functional defect, suggestive of an aspirin-like medication effect. Platelet function as measured by platelet whole blood Hodan-aggregation study is abnormal. There was markedly decreased platelet aggregation and ATP release in response to arachidonic acid. There was decreased (borderline low-normal) platelet aggregation and ATP release in response to both concentrations of ADP 5 and 10 ???M, and low-dose Collagen 1 mg/mL compared to normal control. There was normal platelet aggregation in response to higher concentrations of collagen and normal ATP release in response to thrombin and higher concentration of collagen. There is no defect in ATP release in response to strong agonist collagen and thrombin, suggests that there are normal ATP store allowing for normal ATP release with strong agonist. Ristocetin-induced platelet aggregation is entirely within normal limits; therefore, there is no evidence of von Willebrand disease or Karthikeyan Soulier syndrome. Comment The decreased aggregation and ATP release in response to arachidonic acid and both dose concentrations of ADP, low dose concentration of collagen are findings consistent with aspirin-like medication induced defect. Please correlate with any medications including OTC medications that may contain NSAID or Aspirin like medications. Report Electronically Signed Out rxd/4Rciro Okeefe MD [place] [address], License number: [id number]. Clinical History Thrombocytopenia, bleeding from biopsy site. Medications: See chart. PLATELET AGGREGOMETRY SAMPLE NUMBER: [id number] COAGULATION PARAMETERS: PLT: EDTA tube = 97,000 with clumps Citrate tube = 146,000 PLATELET AGGREGOMETRY: Platelet aggregation and secretion study was performed utilizing the patient???s whole blood by Hodan-aggregation to which various triggering agents were added. There was normal pattern of aggregation and ATP secretion subsequent to the addition of the following triggering agents: ADP 5 uM &10 uM, Collagen 1 ???g/mL and 5 ???g/mL and Arachidonic Acid 0.5 mM. There was normal pattern of aggregation on addition of ristocetin 0.4 mg/mL and 0.15 mg/mL. There was normal release of ATP in response to thrombin 1 unit. WHOLE BLOOD AGGREGATION & SECRETION TEST RESULTS AGONIST NORMAL RANGES (Mean +/- 2 SD) PATIENT VALUEAggregation (Ohms)Secretion (nmoles)AggregationSecretionADP, 5 uM 10 - 32 0.1 - 1.1 12 0.20ADP, 10 uM 10 - 38 0.3 - 2.0 11 0.43Collagen, 1 ???g/mL 13 - 36 0.4 - 2.1 15 0.57Collagen, 5 ???g/mL 15 - 39 0.8 - 2.3 24 1.12Arach. Acid, 0.5 mM 10 - 39 0.6 - 2.2 7 0.87Ristocetin, 0.4 mg/mL >5 N/A 13 -----Lag Phase <70 sec. N/A 0.04 -----Ristocetin, 0.15 mg/mL <5 N/A 1 -----Thrombin, 1 Unit N/A >0.5 ----- 0.93 Specimen(s) Received Platelet Aggregation Fee Codes(s): 84999-84(11) Comprehensive metabolic 2000 panelon 06-01-2024 Albumin [Mass/Vol] 4.0 g/dL 3.9 - 4.9 g/dL [facility] ALP [Catalytic activity/Vol] 56 U/L 34 - 123 U/L [facility] ALT [Catalytic activity/Vol] 78 U/L High 7 - 38 U/L [facility] Anion gap [Moles/Vol] 11 mmol/L 8 - 15 mmol/L [facility] AST [Catalytic activity/Vol] 65 U/L High 13 - 35 U/L [facility] Bilirubin [Mass/Vol] 0.8 mg/dL 0.2 - 1 .3 mg/dL [facility] Calcium [Mass/Vol] 9.6 mg/dL 8.5 - 10. 2 mg/dL [facility] Chloride [Moles/Vol] 105 mmol/L 98 - 10 7 mmol/L [facility] CO2 [Moles/Vol] 25 mmol/L 22 - 30 mmol/L [facility] Creatinine [Mass/Vol] 0.84 mg/dL 0.58 - 0.96 mg/dL [facility] GFR/1.73 sq M.predicted among non-blacks MDRD (S/P/Bld) [Vol rate/Area] 86 mL/min/{1.73_m2} - PINF [facility] Comment on above: Estimated Glomerular Filtration Rate (eGFR) is calculated using the 2020 CKD-EPI creatinine equation. This equation utilizes serum creatinine, sex, and age as parameters. The creatinine assay has traceable calibration to isotope dilution-mass spectrometry. Refer to KDIGO guidelines for clinical interpretation. In patients with unstable renal function, e.g. those with acute kidney injury, the eGFR may not accurately reflect actual GFR. Glucose [Mass/Vol] 132 mg/dL High 74 - 99 mg/dL [facility] Comment on above: The [place] Diabete s Association (ADA) provides guidance for cutoff values [...] Standards of Medical Care in Diabetes 2016, [place] Diabetes Association. Diabetes Care. 2016.39(Suppl 1). Potassium [Moles/Vol] 3.8 mmol/L 3.7 - 5.1 mmol/L [facility] Protein [Mass/Vol] 7.2 g/dL 6.3 - 8.0 g/dL [facility] Sodium [Moles/Vol] 141 mmol/L 136 - 144 mmol/L [facility] Urea nitrogen [Mass/Vol] 10 mg/dL 7 - 21 mg/dL [facility] Albumin [Mass/Vol] 4.0 g/dL Normal 3.9-4.9 [facility] Comment on above: Order Comment: Mert del valle Type: BLOOD SPECIMEN Ordering Facility: [facility] Address: [address] [place] [address] Performed By: #### 2 43238, 2156-12 #### [facility] CLIA [id number] [facility] [place] [address] [place] ALP [Catalytic activity/Vol] 56 U/L Normal 34-123 [facility] Comment on above: Order Comment: Mert del valle Type: BLOOD SPECIMEN Ordering Facility: [facility] Address: [address] [place] [address] Performed By: #### 2 4323-8, 2156-12 #### [facility] CLIA [id number] [address] [place] [address] [place] ALT [Catalytic activity/Vol] 78 U/L High 7-38 [facility] Comment on above: Order Comment: Speci men Type: BLOOD SPECIMEN Ordering Facility: [facility] Address: [address] [place] [address] Performed By: #### 2 4323-8, 2156-12 #### [facility] CLIA [id number] [address] [place] [address] [place] Anion gap [Moles/Vol] 11 mmol/L Normal 8-15 [facility] Comment on above: Order Comment: Speci men Type: BLOOD SPECIMEN Ordering Facility: [facility] Address: [address] [place], [place] [address] Performed By: #### 2 4323-8, 2156-12 #### [facility] CLIA [id number] [address] [place] [address] [place] AST [Catalytic activity/Vol] 65 U/L High 13-35 [facility] Comment on above: Order Comment: Speci men Type: BLOOD SPECIMEN Ordering Facility: [facility] Address: [address] [place] [address] Performed By: #### 2 4323-8, 2156-12 #### [facility] CLIA [id number] [address] [place] [address] [place] Bilirubin [Mass/Vol] 0.8 mg/dL Normal 0.2-1.3 [facility] Comment on above: Order Comment: Speci men Type: BLOOD SPECIMEN Ordering Facility: [facility] Address: [address] [place] [address] Performed By: #### 2 4323-8, 2156-12 #### [facility] CLIA [id number] [address] [place] [address] [place] Calcium [Mass/Vol] 9.6 mg/dL Normal 8.5-10.2 [facility] Comment on above: Order Comment: Speci men Type: BLOOD SPECIMEN Ordering Facility: [facility] Address: [address] [place] [address] Performed By: #### 2 4323-8, 1987-11, 2156-12 #### [facility] CLIA [id number] [address] [place] [address] [place] Chloride [Moles/Vol] 105 mmol/L Normal 98-107 [facility] Comment on above: Order Comment: Speci men Type: BLOOD SPECIMEN Ordering Facility: [facility] Address: [address] [place], [place] [id number] Performed By: #### 2 4323-8, 1987-11, 2156-12 #### [facility] CLIA [id number] [address] [place] [address] [place] CO2 [Moles/Vol] 25 mmol/L Normal 22-30 [facility] Comment on above: Order Comment: Speci men Type: BLOOD SPECIMEN Ordering Facility: [facility] Address: [address] [place] [address] Performed By: #### 2 4323-8, 1987-11, 2156-12 #### [facility] CLIA [id number] [address] [place] [address] [place] Creatinine [Mass/Vol] 0.84 mg/dL Normal 0.58-0.96 [facility] Comment on above: Order Comment: Speci men Type: BLOOD SPECIMEN Ordering Facility: [facility] Address: [address] [place] [address] Performed By: #### 2 4323-8, 1987-11, 2156-12 #### [facility] CLIA [id number] [address] [place] [address] [place] Creatinine and Glomerular filtration rate.predicted panel (S/P/Bld) 86 mL/min/1.73m??? Normal >=60 [facility] Comment on above: Order Comment: Speci men Type: BLOOD SPECIMEN Ordering Facility: [facility] Address: [address] [place] [address] Result Comment: Flores mated Glomerular Filtration Rate [...] reflect actual GFR. Performed By: #### 2 4328, 2156-12 #### [facility] CLIA [id number] [address] [place] [address] [place] Glucose [Mass/Vol] 132 mg/dL High 74-99 [facility] Comment on above: Order Comment: Mert del valle Type: BLOOD SPECIMEN Ordering Facility: [facility] Address: [address] [place] [address] Result Comment: The [place] Diabetes Association (ADA) provides guidance for cutoff [...] Standards of Medical Care in Diabetes 2016, [place] Diabetes Association. Diabetes Care. 2016.39(Suppl 1). Performed By: #### 2 4328, 2156-12 #### [facility] CLIA [id number] [address] [place] [address] [place] Potassium [Moles/Vol] 3.8 mmol/L Normal 3.7-5.1 [facility] Comment on above: Order Comment: Mert del valle Type: BLOOD SPECIMEN Ordering Facility: [facility] Address: [address] [place] [address] Performed By: #### 2 4328, 2156-12 #### [facility] CLIA [id number] [address] [place] [address] [place] Protein [Mass/Vol] 7.2 g/dL Normal 6.3-8.0 [facility] Comment on above: Order Comment: Speci men Type: BLOOD SPECIMEN Ordering Facility: [facility] Address: [address] [place] [id number] Performed By: #### 2 4323-8, 2156-12 #### [facility] CLIA [id number] [address] [place] [address] [place] Sodium [Moles/Vol] 141 mmol/L Normal 136-144 [facility] Comment on above: Order Comment: Speci men Type: BLOOD SPECIMEN Ordering Facility: [facility] Address: [address] [place] [address] Performed By: #### 2 4323-8, 1987-11, 2156-12 #### [facility] CLIA [id number] [address] [place] [address] [place] Urea nitrogen [Mass/Vol] 10 mg/dL Normal 7-21 [facility] Comment on above: Order Comment: Speci men Type: BLOOD SPECIMEN Ordering Facility: [facility] Address: [address] [place], [place] [address] [place] [address] Performed By: #### 2 4323-8, 1987-11, 2156-12 #### [facility] CLIA [id number] [address] [place] [address] [place] ESR Westergren method (Bld) [Velocity]on 06-01-2024 ESR (Bld) [Velocity] 35 mm/h High 0-20 [facility] Comment on above: Order Comment: Speci men Type: BLOOD SPECIMEN Ordering Facility: [facility] Address: [address] [place] [address] Performed By: #### 4 537-7 #### [facility] CLIA [id number] [address] [facility] [place] [place] [address] [place] No Panel Informationon 06-01 Interpretation and review of laboratory results Abnormal [facility] RISTOCETIN AGGRon 06-01-2024 RISTOCETIN AGG SEE SEPARATE REPORT Normal P [facility] Comment on above: Result Comment: REVI EWED BY Gerard OKEEFE M.D. Performed By: #### P LRS #### [facility] ([id number]) [address] [place] [address], [address] [place] [address] Surgical Pathology Reporton 05-04-2024 Surgical Pathology Report (NOTE) [id number] [facility] ANATOMIC PATHOLOGY [address] [place] [address]. [place], [place] [address] SURGICAL PATHOLOGY CONSULTATION Patient Name: LYNETTE HAIRSTON [facility] Rec: [id number] Path Number: [id number] Collected: 05/04/2024 Received: 05/04/2024 Reported: 05/07/2024 10:48 -- Diagnosis -- LIVER, CORE NEEDLE BIOPSIES: - SEVERE MACROVESICULAR STEATOSIS (FATTY LIVER CHANGE) WITH MILD STEATOHEPATITIS. SEE MICROSCOPIC DESCRIPTION. Brady Chan, Electronically Signed Out sls/05/07/2024 Procedures/Addenda ADDENDUM AFTER OUTSIDE CONSULTATION Date Ordered: 05/24/2024 Status: Signed Out Date Complete: 05/24/2024 By: Brady Chan M.D. Date Reported: 05/24/2024 INTERPRETATION AT THE REQUEST OF JUD EDMOND CNP, THIS CASE WAS SENT TO THE [facility] FOR A SECOND OPINION. DR. BETTINA ACOSTA RENDERED THE FOLLOWING DIAGNOSIS AND COMMENT: LIVER, BIOPSY ([id number], 05/04/2024): STEATOHEPATITIS WITH PERISINUSOIDAL FIBROSIS. PLEASE SEE COMMENT. COMMENT: I COMPLETELY AGREE WITH YOU IMPRESSION ON THIS LIVER BIOPSY FROM A 48-YEAR-OLD PATIENT WHO PRESENTED WITH A HISTORY OF FATTY LIVER AND ELEVATED LIVER ENZYMES. NO OTHER HISTORY WAS PROVIDED. THE HISTOLOGIC FINDINGS ARE CONSISTENT WITH STEATOHEPATITIS CHARACTERIZED BY HEPATOCYTE BALLOONING, STEATOSIS, PATCHY INFLAMMATION AND PERISINUSOIDAL FIBROSIS HIGHLIGHTED BY YOUR TRICHROME STAIN. I DID NOT SEE FEATURES OF AN UNTREATED AUTOIMMUNE HEPATITIS. YOUR IRON STAIN IS NEGATIVE. PLEASE SEE THE COMPLETE REPORT ([id number]) FROM THE [facility] FOR DETAILS. Brady Chan M.D. Clinical Information Pre-Op Diagnosis: FATTY LIVER; ELEVATED LFTS Operative Findings: LIVER BIOPSY kb Source of Specimen A: LIVER BIOPSY Gross Description LYNETTE HAIRSTON, LIVER BIOPSY Received in formalin are multiple pink-lauren cores and fragments from 0.1 to 1.1 cm in length, all 0.1 cm in diameter. Wrapped, entirely 2cs. jj tm Microscopic Description The core needle biopsies demonstrate marked macrovesicular steatosis (fatty liver change) involving at least 75-80% of the hepatocellular parenchyma. Associated steatohepatitis is mild. Portal chronic inflammation is mild. Bile ducts and vessels in the portal tracts are unremarkable. Iron stain is negative for hepatocellular siderosis. Trichrome and reticulin stains are negative for increased hepatic fibrosis. The controls for the special stains are appropriate. There is no evidence of infectious granulomatous disease or malignancy. Normal [facility] PTon 05-03-2024 INR Coag (PPP) [Relative time] 0.9 {INR} Normal [facility] Comment on above: Result Comment: Therapeutic Range: Moderate Anticoagulant Intensity: INR = 2.0-3.0 High Anticoagulant Intensity: INR = 2.5-3.5 Performed By: #### P LT, PT #### [place] [address] Import Export Clerk: Brady Chan MD PT Coag (PPP) [Time] 9.9 s Normal 9.4-12.6 [facility] Comment on above: Performed By: #### P LT, PT #### [place] [id number] Import Export Clerk: Brady Chan MD Platelet Counton 05-03-2024 Platelets (Bld) [#/Vol] 173 10*3/uL Normal 140-450 [facility] Comment on above: Performed By: #### P LT, PT #### [place] [id number] Import Export Clerk: MD Mary Aviles [facility] LYNETTE HAIRSTON ([id number]) 1975 F Date Time Provider Department 04/30/24 NOEMI PHAM During your visit today, we recorded the following information about you: Panda Minh 04/30/2024 12:22 PM Signed Lynette is calling Noemi Pham MD today to ask about enbrel. Could it be causing her liver issues? She is having a liver biopsy Tuesday the . Labs done at [facility] in [place]. Patient has been identified by name and birthdate. Duration of symptoms: N/A Person calling: self Call patient at: on cell [phone] (home) [phone] (cell) Was an appointment scheduled: No Closing statement: Results or non-symptom based questions: Thank you for calling [facility], your call will be returned within the next business day. Noemi Franco MD 05/02/2024 4:32 PM Signed Typically, Enbrel does not cause liver issues but there is always a possibility. Let's wait and see what her liver biopsy reveals. MD Eliz Lopez Shelly, BANDAR 05/02/2024 5:03 PM Signed Called patient and relayed below provider message from .Verbalized understanding and will send Capptainhart message when biopsy is completed. Allergies As of Date: 04/30/2024 Noted Allergy Reaction MELOXICAM 11/23/2016 4 - Hives Comments: METHOTREXATE 12/25/2014 8 - GI Upset Date Reviewed: 02/07/2024 Reviewed by: Jackelyn Murcia APRN.MANAGER [employer] - Fully Assessed Prescriptions as of 05/02/2024 - zonisamide (ZONEGRAN) 100 mg capsule Take 1 cap po QAM and 2 cap QHS - ondansetron (ZOFRAN) 4 mg tablet Take 1 tablet by mouth every 12 hours as needed. - leflunomide (ARAVA) 10 mg tablet Take 1 tablet by mouth once daily. - ergocalciferol 50,000 unit capsule (VITAMIN D2, DRISDOL) TAKE 1 CAPSULE BY MOUTH ONE TIME A WEEK. - Etanercept (ENBREL) 50 mg/mL (1 mL) injection INJECT 50 MG UNDER THE SKIN WEEKLY - rosuvastatin (CRESTOR) 20 mg tablet - SUMAtriptan (IMITREX) 100 mg tablet - metoprolol tartrate, short acting, (LOPRESSOR) 25 [...] once daily. Problem List As Of Date 04/30/2024 Noted Resolved Obesity, Class I, BMI 30-34.9 [E66.811] 10/30/2018 Fatigue [R53.83] 11/05/2018 Sleep disturbances [G47.9] [...] movement [R25.9] 11/22/2023 Restless legs [G25.81] 11/22/2023 Obesity, Class III, BMI >= 40 [E66.01] 12/02/2023 Encounter Status:Closed by CORIN [place] on 05/02/24 Normal [facility] CBC AND AUTO DIFFon 03-24-20 ABSOLUTE BASOPHIL 0.1 X10E9/L Normal 0.0-0.2 [facility] Comment on above: Performed By: #### C BCA, CMP, , 89165-3 #### [facility] ([id number]) [address] [place] [address] ABSOLUTE NEUTROPHIL 3.6 X10E9/L Normal 1.5-6.[address] [facility] Comment on above: Performed By: #### C BCA, CMP, , 21730-6 #### [facility] ([id number]) [address] [place] [address] Basophils/100 WBC (Bld) 0.9 % Normal [facility] Comment on above: Performed By: #### C BCA, CMP, , 93703-6 #### [facility] ([id number]) [address] [place] [address]44[address] Eosinophils (Bld) [#/Vol] 0.1 10*3/uL Normal 0.0-0.4 [facility] Comment on above: Performed By: #### C BCA, CMP, , 49770-2 #### [facility] ([id number]) [address] [place] [address]30 Eosinophils/100 WBC (Bld) 1.5 % Normal [facility] Comment on above: Performed By: #### C NO CMP, , 58380-6 #### [facility] ([id number]) [address] [place] [address]5667 Erythrocyte distribution width (RBC) [Ratio] 12.7 % Normal 11.5-15.0 [facility] Comment on above: Performed By: #### C NO, CMP, , 95116-5 #### [facility] ([id number]) [address] [place] [address]51 Hematocrit (Bld) [Volume fraction] 43.0 % Normal 35-47 [facility] Comment on above: Performed By: #### Denis SARABIA CMP, , 23384-4 #### [facility] ([id number]) [address] [place] [address] 11393 Hemoglobin (Bld) [Mass/Vol] 14.7 g/dL Normal 11.7-15.5 [facility] Comment on above: Performed By: #### Denis SARABIA, CMP, , 91917-3 #### [facility] ([id number]) [address] [place] [address] 33498 Lymphocytes (Bld) [#/Vol] 2.2 10*3/uL Normal 1.0-3.5 [facility] Comment on above: Performed By: #### Denis SARABIA, CMP, , 59839-9 #### [facility] ([id number]) [address] [place] [address] 85236 Lymphocytes/100 WBC (Bld) 33.0 % Normal [facility] Comment on above: Performed By: #### Denis SARABIA, CMP, , 04278-3 #### [facility] ([id number]) [address] [place] [address] 34933 MCH (RBC) [Entitic mass] 32.2 pg Normal 27-34 [facility] Comment on above: Performed By: #### C BCA, CMP, , 62922-1 #### [facility] ([id number]) [address] [place] [address] 28392 MCHC (RBC) [Mass/Vol] 34.1 g/dL Normal 32-36 [facility] Comment on above: Performed By: #### C BCA, CMP, , 14612-7 #### [facility] ([id number]) [address] [place] [address] 27965 MCV (RBC) [Entitic vol] 95 fL Normal 80-100 [facility] Comment on above: Performed By: #### Denis BCA, CMP, , 15452-2 #### [facility] ([id number]) [address] [place] [address] 76983 Monocytes (Bld) [#/Vol] 0.7 10*3/uL Normal 0-0.9 [facility] Comment on above: Performed By: #### Denis BCA, CMP, , 59951-3 #### [facility] ([id number]) [address] [place] [address] 15942 Monocytes/100 WBC (Bld) 10.5 % Normal [facility] Comment on above: Performed By: #### C BCA, CMP, , 51694-3 #### [facility] ([id number]) [address] [place] [address] 29962 Neutrophils/100 WBC (Bld) 54.1 % Normal [facility] Comment on above: Performed By: #### Denis BCA, CMP, , 00820-2 #### [facility] ([id number]) [address] [place] [address] 27046 Platelet mean volume (Bld) [Entitic vol] 10.7 fL Normal 7-12 [facility] Comment on above: Performed By: #### C BCA, CMP, , 40456-4 #### [facility] ([id number]) [address] [place] [address] 91225 Platelets (Bld) [#/Vol] 133 10*3/uL Low 150-450 [facility] Comment on above: Performed By: #### C BCA, CMP, , 95461-7 #### [facility] ([id number]) [address] [place] [address] 93387 RBC COUNT 4.55 X10E12/L Normal 3.80-5.20 [facility] Comment on above: Performed By: #### C BCA, CMP, , 02032-7 #### [facility] ([id number]) [address] [place] [address] 37763 WBC (Bld) [#/Vol] 6.7 10*3/uL Normal 4.0-11.0 [facility] Comment on above: Performed By: #### C BCA, CMP, , 65711-3 #### [facility] ([id number]) [address] [place] [address] 11658 COMPREHENSIVE METABOLIC PANE Priyank 03-24-2024 Albumin [Mass/Vol] 3.8 g/dL Normal 3.2-5.3 [facility] Comment on above: Performed By: #### C BCA, CMP, , 45918-6 #### [facility] ([id number]) [address] [place] [address] 05574 ALP [Catalytic activity/Vol] 43 U/L Normal 39-130 [facility] Comment on above: Performed By: #### C BCA, CMP, , 54017-2 #### [facility] ([id number]) [address] [place] [address] 98168 ALT [Catalytic activity/Vol] 70 U/L High 0-31 [facility] [facility] Comment on above: Performed By: #### C BCA, CMP, , 53360-9 #### [facility] ([id number]) [address] [place] [address] 67889 Anion gap [Moles/Vol] 6 mmol/L Normal 5-15 [facility] Comment on above: Performed By: #### C BCA, CMP, , 42568-2 #### [facility] ([id number]) [address] [place] [address] 39255 AST [Catalytic activity/Vol] 59 U/L High 0-41 [facility] Comment on above: Performed By: #### C BCA, CMP, , 05243-3 #### [facility] ([id number]) [address] [place] [address] 98438 Bilirubin [Mass/Vol] 1.3 mg/dL High 0.3-1.[address] [facility] Comment on above: Performed By: #### C BCA, CMP, , 27393-4 #### [facility] ([id number]) [address] [place] [address] 94952 Calcium [Mass/Vol] 8.9 mg/dL Normal 8.5-10.5 [facility] Comment on above: Performed By: #### C BCA, CMP, , 75398-1 #### [facility] ([id number]) [address] [place] [address] 47608 Chloride [Moles/Vol] 104 mmol/L Normal 98-[address] [facility] Comment on above: Performed By: #### C BCA, CMP, , 82963-7 #### [facility] ([id number]) [address] [place] [address] 67402 CO2 [Moles/Vol] 26 mmol/L Normal 22-32 [facility] Comment on above: Performed By: #### C NO BARB, , 74316-5 #### [facility] ([id number]) [address] [place] [address] 29280 Creatinine [Mass/Vol] 0.85 mg/dL Normal 0.40-1.00 [facility] Comment on above: Result Comment: METH OD TRACEABLE TO IDMS STANDARD Performed By: #### C BARB SARABIA, , 69657-1 #### [facility] ([id number]) [address] [place] [address] 21637 GFR/1.73 sq M.predicted among non-blacks MDRD (S/P/Bld) [Vol rate/Area] 84 mL/min/{1.73_m2} Normal >59 [facility] Comment on above: Result Comment: Reported eGFR is based on the CKD-EPI 2020 equation that does not use a race coefficient. Performed By: #### C ABRB SARABIA, , 09210-4 #### [facility] ([id number]) [address] [place] [address] 81364 Glucose [Mass/Vol] 99 mg/dL Normal 65-99 [facility] Comment on above: Performed By: #### C BARB SARABIA, , 86006-3 #### [facility] ([id number]) [address] [place] [address] 21938 Potassium [Moles/Vol] 4.2 mmol/L Normal 3.5-5.0 [facility] Comment on above: Performed By: #### C BARB SARABIA, , 20473-3 #### [facility] ([id number]) [address] [place] [address] 58083 Protein [Mass/Vol] 7.0 g/dL Normal 6.0-8.0 [facility] Comment on above: Performed By: #### C BCA, CMP, 83151-2, 76563-4 #### [facility] ([id number]) [address] [place] [address] 50496 Sodium [Moles/Vol] 136 mmol/L Normal 134-146 [facility] Comment on above: Performed By: #### C BCA, CMP, , 37644-4 #### [facility] ([id number]) [address] [place] [address] 87101 Urea nitrogen [Mass/Vol] 13 mg/dL Normal 5-23 [facility] Comment on above: Performed By: #### C BCA, CMP, , 75635-3 #### [facility] ([id number]) [address] [place] [address] 38744 MAGNESIUMon 03-24-2024 Magnesium [Mass/Vol] 2.0 mg/dL Normal 1.8-2.[address] [facility] Comment on above: Performed By: #### C BCA, CMP, , 18461-9 #### [facility] ([id number]) [address] [place] [address] 20917 Troponin I.cardiac High sens itivity method [Mass/Vol]on 03-24-2024 1 HOUR TROP I, HIGH SENSITIVITY <2 Normal <16 [facility] Comment on above: Performed By: #### 8 9579-7 #### [facility] ([id number]) [address] [place] [address] 57629 TROPONIN I, HIGH SENSITIVITY <2 Normal <16 [facility] Comment on above: Performed By: #### C BCA, CMP, , 57358-6 #### [facility] ([id number]) [address] [place] [address] [place] [address] URN MACROSCOPIC NURon 2023 BILIRUBIN GALLO Negative Normal NEG [facility] Comment on above: Performed By: #### N UM #### [facility] ([id number]) [address] [place] [address] [place] [address] BLOOD/HGB GALLO Negative Normal NEG [facility] Comment on above: Performed By: #### N UM #### [facility] ([id number]) [address] [place] [address] [place] [address] GLUCOSE GALLO Negative Normal NEG [facility] Comment on above: Performed By: #### N UM #### [facility] ([id number]) [address] [place] [address] [place] [address] KETONES GALLO Negative Normal NEG [facility] Comment on above: Performed By: #### N UM #### [facility] ([id number]) [address] [place] [address] [place] [address] LEUKOCYTE ESTERASE GALLO Negative Normal NEG [facility] Comment on above: Performed By: #### N UM #### [facility] ([id number]) [address] [place] [address] [place] [address] NITRITE GALLO Negative Normal NEG [facility] Comment on above: Performed By: #### N UM #### [facility] ([id number]) [address] [place] [address] [place] [address] PH GALLO 5.5 Normal 5.0-8.5 [facility] Comment on above: Performed By: #### N UM #### [facility] ([id number]) [address] [place] [address] [place] [address] PROTEIN GALLO Negative Normal NEG [facility] Comment on above: Performed By: #### N UM #### [facility] ([id number]) [address] [place] [address] SPECIFIC GRAVITY GALLO >=1.030 Normal 1.003-1.035 [facility] Comment on above: Performed By: #### N UM #### [facility] ([id number]) [address] [place] [address] 64973 UROBILINOGEN GALLO 0.2 eu/dL Normal <1.1 [facility] Comment on above: Performed By: #### N UM #### [facility] ([id number]) [address] [place] [address] 63648 XR CHEST 1 VWon 03-24-2024 XR CHEST 1 VW XR CHEST 1 VW CLINICAL INFORMATION: Dizziness. Cardiac workup. COMPARISON: Chest radiograph dated 09/27/2023. VIEWS: 1. FINDINGS: Cardiac and mediastinal shadows are normal. No infiltrates. No effusions. No pneumothorax. No free air below the diaphragm. IMPRESSION: No radiographic evidence for acute cardiopulmonary disease. Finalized by Leah Alfaro MD on 03/24/2024 1:[address] [facility]NP[facility] Telephone (NIQ) LYNETTE HAIRSTON ([id number]) 1975 F Date Time Provider Department 02/08/24 LIZ CONNOLLY During your visit today, we recorded the following information about you: Evette Oreilly 02/08/2024 8:29 AM Signed Call received for Liz Connolly MD regarding Lynette Hairston 1975. Caller: Self Patient Identified by Name and : Yes Was permission obtained from patient ? Yes Reason for Call: Other: Patient is requesting to have a nurse contact her about the skin biopsy she had yesterday. She attempted to speak with the office but the call kept dropping. Last Office Visit: Visit date not found Next scheduled appointment: Visit date not found Best number to reach caller: [phone] Best time to reach caller: Anytime Is it OK to leave a detailed voice message? Yes Jennifer Euceda RN 02/08/2024 8:59 AM Addendum This nurse attempted to call the patient back and left a general voicemail with our phone number from an unidentified number. Sent MCM as well. Jennifer Cavazos RN Allergies As of Date: 02/08/2024 Noted Allergy Reaction MELOXICAM 11/23/2016 4 - Hives Comments: METHOTREXATE 12/25/2014 8 - GI Upset Date Reviewed: 02/07/2024 Reviewed by: Jackelyn Murcia APRN.MANAGER [employer]ION - Fully Assessed Prescriptions as of 02/08/2024 - ondansetron (ZOFRAN) 4 mg tablet Take 1 tablet by mouth every 12 hours as needed. - leflunomide (ARAVA) 10 mg tablet Take 1 tablet by mouth once daily. - ergocalciferol 50,000 unit capsule (VITAMIN D2, DRISDOL) TAKE 1 CAPSULE BY MOUTH ONE TIME A WEEK. - Etanercept (ENBREL) 50 mg/mL (1 mL) injection INJECT 50 MG UNDER THE SKIN WEEKLY - rosuvastatin (CRESTOR) 20 mg tablet - SUMAtriptan (IMITREX) 100 mg tablet - zonisamide (ZONEGRAN) 100 mg capsule TAKE 1 CAPSULE (100 MG TOTAL) BY MOUTH EVERY MORNING AND 2 CAPSULES (200 MG TOTAL) NIGHTLY. - metoprolol tartrate, short acting, (LOPRESSOR) 25 [...] once daily. Problem List As Of Date 02/08/2024 Noted Resolved Obesity, Class I, BMI 30-34.9 [...] movement [R25.9] 11/22/2023 Restless legs [G25.81] 11/22/2023 Obesity, Class III, BMI >= 40 [E66.01] 12/02/2023 Encounter Status:Closed by JENNIFER CAVAZOS on 02/08/24 Normal [facility] Alpha tocopherol [Mass/Vol]O rdered By: Mely Reed on 01-27-2024 Beta+gamma tocopherol [Mass/Vol] 3.0 mg/L 0.3 - 3.2 mg/L [facility] Comment on above: This test was crow quintero and its performance characteristics determined by [facility]'s [facility] [place] ([facility]). It has not been cleared or approved by the FDA. [facility] is regulated under CLIA as qualified to perform high-complexity testing. This test is used for clinical purposes. It should not be regarded as investigational or for research. Interpretation and review of laboratory results Normal [facility] CNOVon 01-27-2024 CNOV Office Visit (RHEUAV ) LYNETTE HAIRSTON ([id number]) 1975 F Date Time Provider Department 01/27/24 9:40 AM NOEMI PHAM During your visit today, we recorded the following information about you: Pulse Blood pressure Weight Height 101/minute 135/86 116.2 kg 1.676 m Noemi Pham MD 01/27/2024 11:50 AM Signed Lynette Meade Crescencio is a 48 year old female who presents for follow up: for RA LABS RF+,>650, elevated aldolase levels,slightly increased sed rate and crp EMG of rt upper and lower extremities- normal PREVIOUS DIAG myalgias- h/o FM - diagnosed in 2009, chronic back pain RA and 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- elevated aldolase and complaints of weakness pleurisy gastropresis Thoracic Outlet syndrome Lowered GFR with cloud urine- due to see nephrology INTERVAL HISTORY since last visit,has chronic aches and pains Pain in both hips today All joints and muscles hurt Stiffness is worsening No red hot swollen joints per say No rash, ulcers, fevers, swollen lymph nodes, [...] started on 11/11- feels it is helping Cymbalta- causes goose bumps Currently on Enbrel and plaquenil bid Arava- low dose - started on 02/14 REVIEW OF SYSTEMS PAST MEDICAL HISTORY Diagnosis Date Fibromyalgia Hypothyroidism Migraines MARINE (obstructive sleep apnea) POTS (postural orthostatic tachycardia syndrome) Restless leg syndrome Rheumatoid arthritis (HCC) No past surgical history on file. ergocalciferol 50,000 unit capsule (VITAMIN D2, DRISDOL) TAKE 1 CAPSULE BY MOUTH ONE TIME A WEEK. Etanercept (ENBREL) 50 mg/mL (1 mL) injection INJECT 50 MG UNDER THE SKIN WEEKLY rosuvastatin (CRESTOR) 20 mg tablet SUMAtriptan (IMITREX) 100 mg tablet zonisamide (ZONEGRAN) 100 mg capsule TAKE 1 CAPSULE (100 MG TOTAL) BY MOUTH EVERY MORNING AND 2 CAPSULES (200 MG TOTAL) NIGHTLY. metoprolol tartrate, short acting, (LOPRESSOR) 25 mg tablet Take 12.5 mg by mouth once daily. omeprazole (PRILOSEC) 40 mg capsule Take 40 mg by mouth once daily. ibuprofen (MOTRIN) 800 mg tablet Take 800 mg by mouth as needed. ARIPiprazole (ABILIFY) 2 mg tablet Take 2 mg by mouth once daily. busPIRone (BUSPAR) 10 mg tablet Take 10 mg by mouth three times daily. COMPOUNDED PRESCRIPTION Handicapped placard Diagnosis- RA Cannot walk >200 ft Duration- 3 yrs sertraline (ZOLOFT) 100 mg tablet Take 100 mg by mouth once daily. ondansetron (ZOFRAN) 4 mg tablet Take 1 tablet by mouth every 12 hours as needed. FAMILY HISTORY Problem Relation Age of Onset Systemic Lupus Erythematosus Mother Systemic Lupus Erythematosus Daughter Social History Tobacco Use Smoking status: Never Smokeless tobacco: Never Substance Use Topics Alcohol use: Yes Comment: Occasional Drug use: Never BP 135/86 Pulse 101 Ht 167.6 cm (5' 6 ) Wt 116.2 kg (256 lb 2.8 oz) BMI 41.35 kg/m? PE; ambulates well, pelasent mood Appears to be in no distress, very pleasant Pain on palpation of all joints No synovitis noted MOST RECENT LABS: REVIEWED WITH PATIENT IMP/PLAN: RA/FM- feels arthralgias and em stiffness are wrosening Now pain of both hips and top of thighs Rash on face still present, stopped plaquenil but rash persists -will continue to stay off plaquenil, stopped due to rash of face -continue Enbrel -start low dose arava at 5mg po every day she has worsening arthralgias and stiffness Bilateral hip pain - chronic bursitis, given CS injection and helped for a few days Lowered GFR and cloudy urine -under care of nephrology, work up in progress -avoid nsaids for now F/U in 6m Noemi Pham MD F/U: 6m Check following: -none Noemi Pham MD Referring Provider: SELF [200] Allergies As of Date: 01/27/2024 Noted Allergy Reaction MELOXICAM 11/23/2016 4 - Hives Comments: METHOTREXATE 12/25/2014 8 - GI Upset Date Reviewed: 01/27/2024 Reviewed by: Ty Mo MA - Fully Assessed Reason for Visit: Follow Up [171] Primary Visit Diagnosis:Rheumatoid arthritis involving multiple sites, unspecified whether rheumatoid factor present (HCC) [M06.9] Other Visit Diagnosis:Myalgia [M79.10] Order(s):ondansetron (ZOFRAN) 4 mg tabletTake 1 tablet by mouth every 12 hours as needed.Disp: 30 tabletRfl: 2 leflunomide (ARAVA) 10 mg tabletTake 1 tablet by mouth once daily.Disp: 30 tabletRfl: 2 Prescriptions as of 01/27/2024 - ondansetron (ZOFRAN) 4 mg tablet Take 1 tablet by mouth every 12 hours as needed. - leflunomide (ARAVA) 10 mg tablet Take 1 tablet by m (more content not included)... Normal [facility] GLUTAMIC AC DECARBOXYLASE AB Ordered By: Maria Esther García on 01-27-2024 Glutamate decarboxylase 65 Ab Qn (S) CHRIS [facility] Comment on above: Anti-glutamic acid d ecarboxylase antibody (GAD65) test usually in conjunction with another test such as IA-2 antibody is used as an aid in establishing the autoimmune nature of previously-diagnosed type I diabetes mellitus or in predicting of progression to type I diabetes mellitus in patients with certain autoimmune diseases including autoimmune gastritis among others. It is also used as an aid in diagnosis of stiff person syndrome and certain autoimmune nervous system diseases. Clinical correlation is required. Glutamate decarboxylase 65 A b Qn (S)Ordered By: Maria Esther García on 01-27-2024 Glutamic Acid Decarboxylas Ab Qualitative Negative Negative [facility] Interpretation and review of laboratory results Normal [facility] VITAMIN E/TOCOPHEROLOrdered By: Mely Reed on 01-27-2024 Alpha tocopherol [Mass/Vol] 7.0 mg/L 6.0 - 23.0 mg/L [facility] A-Tocopherol Vit E SerPl-mCn con 01-25-2024 Alpha tocopherol [Mass/Vol] 7.0 mg/L Normal 6.0-23.0 [facility] Comment on above: Order Comment: Mert del valle Type: BLOOD SPECIMEN Ordering Facility: [facility] Address: [address] [place] [address] Performed By: #### 1 823-4 #### [facility] CLIA [id number] [address] [place] [address] [place] Alpha tocopherol [Mass/Vol]o n 01-25-2024 Beta+gamma tocopherol [Mass/Vol] 3.0 mg/L Normal 0.3-3.2 [facility] Comment on above: Order Comment: Mert del valle Type: BLOOD SPECIMEN Ordering Facility: [facility] Address: [address] [place] [address] Result Comment: This test was developed and its performance characteristics determined by [facility]'s [facility] [place] ([facility]). It has not been cleared or approved by the FDA. [facility] is regulated under CLIA as qualified to perform high-complexity testing. This test is used for clinical purposes. It should not be regarded as investigational or for research. Performed By: #### 1 823-4 #### [facility] CLIA [id number] [address] [place] [address] [place] CNOVon 01-25-2024 CNOV Office Visit (NEADFV ) LYNETTE HAIRSTON ([id number]) 1975 F Date Time Provider Department 01/25/24 8:00 AM DANITA BOB NEADFV During your visit today, we recorded the following information about you: Pulse Blood pressure Weight Height 104/minute 118/83 115.2 kg 1.676 m Danita Bob DO 01/27/2024 12:40 PM Signed [facility] New Patient Evaluation Consulting Provider: Brett Dickson [address] [facility] [id number] Individuals who were included in, or assisted with the encounter were: Lynette Hairston Danita Crook DO Chief Complaint/Issues: Lynette Hairston is a 48 year old female seen in the [facility] for: Abnormal movements HPI: Ms. Hairston is a 48 year old woman PMHx including insulin resistance syndrome, migraines, fibromyalgia presenting for abnormal toe movements, referred by Dr. Dickson at the [facility]. She gets spasms in her muscles that she is used to nowadays, although can get spreading of the toes that causes pain. In the last two months she notices wiggling movements in her toes, involuntary, might be able to stop it at times if she is paying attention. Getting out of a pool going up the ladder her toes crmaps up like renetta horse. Denies burning pain, but gets cramping pain regularly. The other day her left thumb was twitching at work intermittently at rest. She had not leaned on it or used heavy weights. She has been on Abilify for years for depression, about 7 years. She denies dysphagia. She was worked up for MS due to multiple complaints, neuroaxis MRI was negative for demyelination. She would get blurred vision every so often staring at the computer screen. This has not happened in a month. Hard to get dressed. Has FM, RA She gets migraines, uses zonisamide. These are well controlled. She feels like things are crawling on her, tingling. Her face gets blotchy. No skin color changes of hands or feet. She was given baclofen but knocked her out. She is seeing a applied marine physics professor today for trouble breathing. She denies creepy crawly sensation in her legs that is relieved with activity. Can get shooting pains in all extremities. Her memory is bad, hard for job. Has sleep apnea. Has not been able to tolerate mask for two years. She is working up [employer]. She does not smoke. Drinks alcohol occasionally, but makes her feel bad so this is rare. Headaches ar well controlled. Denies numbness. Has some walking issues due to hip pain, had cortisol injection for bursitis. General Examination: There were no vitals taken for this visit. General: Awake, alert, interactive, no acute distress, good nutritional status, normal development, well-kept Skin: Rash: absent Pigmentation: absent HEENT: Head: normocephalic, no dysmorphism Eyes: normal Oropharynx: normal Extremities: Edema: absent Trophic change: absent Heart: RRR, no cyanosis Lungs: Chest rise symmetrical Neurological Exam Mental Status Alert, fully oriented, attentive, with normal cognition, memory, speech and affect. Cranial Nerves Visual mehta intact. Fundi with normal discs and vasculature. Pupils reactive. Extraocular movements conjugate and full. No ptosis. No nystagmus. Facial sensation intact. Face symmetric and strong. Palate and tongue normal. XI normal. Motor Examination and Coordination Motor examination with normal bulk, strength and tone. No drift. Normal rapid alternating movements and coordination. No adventitious movements or significant tremor. Reflexes Deep tendon reflexes graded by [facility] Deep Tendon Reflexes Right Left Biceps 2+ 2+ Brachioradialis 2+ 2+ Patellar 2+ 2+ Achilles 2+ 2+ Sensation Sensation intact to light touch Gait Antalgic gait Assessment AND Plan 01/27/2024 - General Neurology, Danita Crook, DO ASSESSMENT Ms. 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 She also reports paraesthesias of the skin. 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 This can be difficult to treat, often gabapentin or clonazepam tried. Paraesthesias likely related to her FM, will ask NM about how to order small fiber biopsy. Movements not bothersome enough right now for her to risk side effects of medications. PLAN Possible small fiber nerve biopsy DREW 65, vitamin levels Future considerations for her multiple symptoms/migraines amitriptyline, though zonisamide is controlling headaches right now. RTC 3 months Encounter Diagnosis ICD-10-CM 1. Abnormal involuntary movement R25.9 No follow-ups on file. == Data Review Objective Current Outpatient Medications Medi (more content not included)... Normal [facility] GAD65 Ab Ser-aCncon 01-25-20 24 Glutamate decarboxylase 65 Ab Qn (S) <5.0 Normal <=5.0 [facility] Comment on above: Order Comment: Mert del valle Type: BLOOD SPECIMEN Ordering Facility: [facility] Address: [address] [place] [address] Result Comment: Anti -glutamic acid decarboxylase antibody (GAD65) test usually in conjunction with another test such as IA-2 antibody is used as an aid in establishing the autoimmune nature of previously-diagnosed type I diabetes mellitus or in predicting of progression to type I diabetes mellitus in patients with certain autoimmune diseases including autoimmune gastritis among others. It is also used as an aid in diagnosis of stiff person syndrome and certain autoimmune nervous system diseases. Clinical correlation is required. Performed By: #### 1 3926-1 #### [facility] CLIA [id number] [address] [place] [address] [place] Glutamate decarboxylase 65 A b Qn (S)on 01-25-2024 GLUTAMIC ACID DECARBOXYLAS AB QUALITATIVE Negative Normal Negative [facility] Comment on above: Order Comment: Mert del valle Type: BLOOD SPECIMEN Ordering Facility: [facility] Address: [address] [place] [address] Performed By: #### 1 3926-1 #### [facility] CLIA [id number] [address] [place] [address] [place] VITAMIN B1 (THIAMINE), WHOLE BLOODon 01-25-2024 Thiamine (Bld) [Moles/Vol] 204.2 nmol/L Normal 84.3-213.3 [facility] Comment on above: Order Comment: Speci men Type: BLOOD SPECIMEN Ordering Facility: [facility] Address: [address] [place] [address] Result Comment: This assay measures the concentration of thiamine diphosphate (TDP), the primary active form of vitamin B1. Approximately 90 percent of vitamin B1 present in whole blood is TDP. Thiamine and thiamine monophosphate, which comprise the remaining 10 percent, are not measured. This test was developed and its performance characteristics determined by [facility] [place] ([facility]). It has not been cleared or approved by the FDA. -[facility] is regulated under CLIA as qualified to perform high-complexity testing. This test is used for clinical purposes. It should not be regarded as investigational or for research. Performed By: #### B 1WB #### [facility] CLIA [id number] [address] [place], [place] [address] [place] [address] [place] CNCOon 12-05-2023 CNCO Letter Text Normal [facility] CNOVon 12-02-2023 CNOV Office Visit (NEMSLR ) LYNETTE HAIRSTON ([id number]) 1975 F Date Time Provider Department 12/02/23 4:00 PM BRETT DICKSON NEMSLR During your visit today, we recorded the following information about you: Temperature Pulse Blood pressure Weight 97.5 degrees 114/minute 142/87 115.2 kg Height 1.676 m Brett Dickson MD 12/02/2023 4:42 PM [facility] FOLLOWUP/ESTABLISHED PATIENT VISIT PRINCIPAL NEUROLOGIC DIAGNOSIS: Neurological symptoms undergoing evaluation DISEASE SUMMARY Date of onset: ?2021 Date of diagnosis of MS: n/a Disease course at onset: Relapsing-Remitting Current disease course: Relapsing-Remitting Previous disease therapies: None Current disease therapy: None Most recent MRI brain: 11/30/23 Most recent MRI cervical spine: 11/28/23 Most recent MRI thoracic spine: 11/28/23 CSF: Not done JCV serology result and date: n/a CDS1: 11/17/23 negative CHIEF COMPLAINT: Review diagnostic testing results and discuss implications INTERVAL HISTORY: She is having worsening movements of her LLE- its happening much of the day now. She is also having blurry vision from the L eye today. In terms of her headaches it can be top of her head, unilateral, or other. It is mostly sharp pain. She is sensitive to lights but not sounds. Sometimes she gets nausea. She often gets them in the morning but also afternoon. She has not noticed positional changes. She adds to her history several years ago she had an episode horrible vertigo spell lasting about 5 mins in the past and an episode of diplopia lasting a few mins. She also gets episodes of the face turning red usually just on one side- show me a picture. Usual treating team: Drew/Dania The patient is unaccompanied. The patient was last seen 11/17/23, currently taking Not on DMT. Since the patient's last visit the patient reports overall feeling worse. Neuro-QoL Functions (higher=better functioning) Flowsheet Row Office Visit from 11/17/[address] [facility] Upper Extremity Domain T Score 43.97 Lower Extremity Domain T Score 40.08 Cognitive Function Domain T Score 42.85 Positive Affect Well Being T Score -- Ability To Participate In Social Roles T Score 39.59 Satisfaction With Social Roles T Score 35.47 Neuro-QoL Symptoms (higher=worse symptoms) Flowsheet Row Office Visit from 11/17/[address] [facility] Sleep Domain T Score 54.31 Fatigue Domain T Score 60.46 Anxiety Domain T Score 56.44 Depression Domain T Score 46.93 Stigma Domain T Score 57.09 Emotional Behavior Dyscontrol T Score -- has a past medical history of Fibromyalgia, Hypothyroidism, Migraines, MARINE (obstructive sleep apnea), POTS (postural orthostatic tachycardia syndrome), Restless leg syndrome, and Rheumatoid arthritis (HCC). has a current medication list which includes the following prescription(s): ergocalciferol (vitamin d2), baclofen, ropinirole, rosuvastatin, sumatriptan, zonisamide, enbrel, ondansetron, metoprolol tartrate (short acting), omeprazole, ibuprofen, aripiprazole, buspirone, COMPOUNDED PRESCRIPTION, and sertraline. EXAM: BP 142/87 (BP Site: Left Arm, BP Position: Sitting, BP Cuff Size: Large Adult) Pulse 114 Temp 36.4 ?C (97.5 ?F) (Temporal) Ht 167.6 cm (5' 6 ) Wt 115.2 kg (253 lb 15.5 oz) SpO2 96% BMI 40.99 kg/m? Multiple Sclerosis Performance Test Flowsheet Row Office Visit from 11/17/[address] [facility] Processing Speed Total Number Correct 53 Low-contrast letter acuity test-2.5 percent opacity 30 Low-contrast letter acuity test-100 percent opacity 60 Dominant hand Right hand MDT Left Hand Time 28.46 MDT Right Hand Time 29.82 Walking Speed Test (25 feet) 7.56 General Appearance: well appearing, in no acute distress Mental status evaluation during the interview and examination showed normal level of consciousness, conversational language, and attention during the encounter. Affect: Normal Visual acuity: OD 20/20 OS 20/20 Correction: With contacts Confrontation visual mehta: Intact OU Funduscopic exam: OU disc normal- no edema, or pallor Extraocular movements: full, without SONNY Facial sensation: Intact bilaterally Facial movements: Intact bilaterally Speech: normal Muscle tone: Right arm spasticity: None Right leg spasticity: Mild Left arm spasticity: None Left leg spasticity: Mild Muscle strength (#/5): Right Left Upper Extremity: Deltoids 5 5 Biceps 5 5 Triceps 5 5 Wrist extension 5 5 Finger extension 5 5 Finger flexion 5 5 Dorsal interossei 5 5 Lower extremity: Iliopsoas 5 5 Quadriceps 5 5 Hamstrings 5 5 Tibialis anterior 5 5 Gastrocnemius 5 5 Coordination: Upper extremity dexterity and rapid movements: Normal bilaterally Finger-nose: no dysmetria; coordination intact Heel-celestin: no dysmetria; coordination intact Sensory Perception: Intact to light touch x4 Stand (more content not included)... Normal [facility] LY[facility]TE HAIRST[facility] ([id number]) 1975 F Date Time Provider Department 11/29/23 NISH CHAVEZ During your visit today, we recorded the following information about you: Rashi Navas RN 11/29/2023 9:41 AM Signed Provider Melanie Chavez CNP requesting the following images for review Type of imaging: MRI t/c Dates of imagin11/28/2023 Location imaging was done: [facility] Phone number of facility: [phone] Fax number of facility: unknown Who did I speak to?: Janine (spoke to the patient, 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 Problem List As Of Date 11/29/2023 Noted Resolved Obesity, Class I, BMI 30-34.9 [...] 11/22/2023 Encounter Status:Closed by RASHI NAVAS on 12/05/23 [facility] 11-22-2023 [facility] Telephone (NEMSLR) LYNETTE HAIRSTON ([id number]) 1975 F Date Time Provider Department 11/22/23 BRETT DICKSON [facility] During your visit today, we recorded the following information about you: Cinthya Clark 11/22/2023 1:25 PM Signed Lynette is calling Brett Dickson MD today to request office notes from visit to be faxed to [phone] Attn:Toñito. Patient has been identified by name and birthdate. Duration of symptoms: N/A Person calling: self Call patient at: on cell [phone] (home) [phone] (cell) Was an appointment scheduled: No Closing statement: Results or non-symptom based questions: Thank you for calling [facility], your call will be returned within the next business day. Rashi Diaz RN 11/24/2023 1:36 PM Signed Notes from [...] Encounter Status:[facility] (SUNGUAV[facility] LYNETTE HAIRSTON ([id number]) 1975 F Date Time Provider Department 11/21/23 NOEMI PHAM During your visit today, we [...] Status:Closed by BRIANDA PALOMARES on 11/21/23 Normal [facility] 25(OH)D3 SerPl-mCncon 2023 25-hydroxyvitamin D3 [Mass/Vol] 15.3 ng/mL Low 31.0-80.0 [facility] Comment on above: Order Comment: Mert del valle Type: BLOOD SPECIMENOrdering Facility: [facility] Address: [address] [place] [address] Performed By: #### 1 989-3, 25154-6 ####[facility] LABCLIA [id number] [facility] [id number] [place] [address] [place] 25-hydroxyvitamin D3 [Mass/V ol]on 11-17-2023 Interpretation and review of laboratory results Abnormal [facility] B. burgdorferi IgG and IgM p watson (S)on 11-17-2023 B. burgdorferi IgG+IgM Qn (S) Negative Negative [facility] Comment on above: Recent infection wit h B. burgdorferi sensu lato cannot be excluded if the specimen collected within four weeks after the onset of signs and symptoms or within six weeks after a known tick exposure. Clinical and epidemiological correlation is required. Interpretation and review of laboratory results Normal [facility] B. burgdorferi IgG+IgM Qn (S) Negative Normal Negative [facility] Comment on above: Order Comment: Mert del valle Type: BLOOD SPECIMENOrdering Facility: [facility] Address: [address] [place] [address] Result Comment: Rece nt infection with B. burgdorferi sensu lato cannot be excluded if the specimen collected within four weeks after the onset of signs and symptoms or within six weeks after a known tick exposure. Clinical and epidemiological correlation is required. Performed By: #### 1 989-3, 31690-4 ####[facility] LABCLIA [id number] [place] [address] [place] C-REACTIVE PROTEINon 024 CRP [Mass/Vol] 0.7 mg/dL NINF - 0.9 mg/dL [facility] CNOVon 11-17-2023 CNOV Office Visit (NEMSLR ) LYNETTE HAIRSTON ([id number]) 1975 F Date Time Provider Department 11/17/23 9:30 AM BRETT DICKSON NEMSLR During your visit today, we recorded the following information about you: Pulse Blood pressure Weight 104/minute 136/91 113.5 kg Brett Dickson MD 11/17/2023 12:50 PM [facility] NEW PATIENT EVALUATION/CONSULTATI ON Referral source: Cody Hutchins CNP Neurology- [facility] Also followed by: Patient Care Team: Toy Obrien MD as PCP - General (Family Medicine) Ham Barton (Gastroenterology) PRINCIPAL NEUROLOGIC DIAGNOSIS: Neurological symptoms [...] Flowsheet Row Office Visit from 11/17/[address] [facility] Upper Extremity Domain T Score 43.97 Lower Extremity Domain T Score 40.08 Cognitive Function Domain T Score 42.85 Positive Affect Well Being T Score -- Ability To Participate In Social Roles T Score 39.59 Satisfaction With Social Roles T Score 35.47 Neuro-QoL Symptoms (higher=worse symptoms) Flowsheet Row Office Visit from 11/17/[address] [facility] Sleep Domain T Score 54.31 Fatigue Domain [...] Flowsheet Row Office Visit from 11/17/[address] [facility] Processing Speed Total Number Correct 53 Low-contrast letter acuity test-2.5 percent opacity 30 Low-contrast letter acuity test-100 percent opacity 60 Dominant hand Right hand MDT Left Hand Time 28.46 MDT Right Hand Time 29.82 Walking Speed Test (25 feet) 7.56 Hair, skin, nails, and joints were normal. Respirations unlabored on room air. Extremities warm. There was no peripheral edema. +Rudolph hump on back on neck The patient [...] to confrontati (more content not included)... Normal [facility] 11-17-2023 [facility] Telephone (NEMSMN) LYNETTE HAIRSTON ([id number]) 1975 F Date Time Provider Department 11/17/23 [facility] During your visit today, we recorded the following information about you: Kermit Ochoa 11/17/2023 3:25 PM Signed [place] Call Name of caller : Lynette Hairston Relationship to patient: Self Return call phone number : [phone] Reason for call : Other : Brief description of concern : Patient is calling and stated she just seen you and forgot to ask you for a letter for her work place. She said the letter needs to state she had appt with you today and fax it over to her attention at fax #[phone]. Any questions, please call her. Nish Chavez APRN.CNP 11/18/2023 11:58 AM Signed Letter written Nish Chavez APRN.CNP November 18, 2023 11:58 AM Kaylynn Conn RN 11/18/2023 12:18 PM Signed Letter faxed marked Attention: Lynette Hairston to fax [phone] as requested. 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 A negative result does not preclude a diagnosis of an inflammatory INSTRUCTIONAL LEADER demyelinating disorder. Performed By: #### 4 537-7 #### [facility] CLIA [id number] [address] [place] [address] [place] MYELIN OLIGODENDROCYTE GLYCOPROTEIN (MOG-IGG1) FLUORESCENCE-ACTIVAT ED CELL Negative Normal Negative [facility] Comment on above: Order Comment: Mert del valle Type: BLOOD SPECIMEN [facility]ing Facility: [facility] Address: [address] [place] [address] Result Comment: ADDITIONAL INFORMATION This test was developed and its performance characteristics determined by [facility] in a manner consistent with CLIA requirements. This test has not been cleared or approved by the U.S. Food and Drug Administration. Test Performed by: [facility] - [address] [address] Import Export Clerk: Jt Charles M.D. Ph.D.; CLIA# [id number] Performed By: #### 4 537-7 #### [facility] CLIA [id number] [address] [place] [address] [place] NMO/AQPF FACS, S Negative Normal Negative [facility] Comment on above: Order Comment: Mert del valle Type: BLOOD SPECIMEN Ordering Facility: [facility] Address: [address] [place] [address] Result Comment: ADDITIONAL INFORMATION This test was developed and its performance characteristics determined by [facility] in a manner consistent with CLIA requirements. This test has not been cleared or approved by the U.S. Food and Drug Administration. Performed By: #### 4 537-7 #### [facility] CLIA [id number] [address] [place] [address] [place] COPPER BLOODon 11-17-2023 Copper [Mass/Vol] 104 ug/dL Normal 80-155 [facility] Comment on above: Order Comment: Mert del valle Type: BLOOD SPECIMEN Ordering Facility: [facility] Address: [address] [place] [address] Result Comment: This test was developed and its performance characteristics determined by [facility]'s [facility] [place] ([facility]). It has not been cleared or approved by the FDA. [facility] is regulated under CLIA as qualified to perform high-complexity testing. This test is used for clinical purposes. It should not be regarded as investigational or for research. Performed By: #### C OPPER #### [facility] CLIA [id number] [address] [place] [address] [place] CORTISOL, SERUMon 11-17-2023 Cortisol [Mass/Vol] 4.6 ug/dL Low 4.8 - 19 .5 ug/dL [facility] Comment on above: Provided reference r carlin is from 6-10 AM sample collection time. Cortisol Reference Range: 6-10 AM = 4.8-19.5 ug/dL, 4-8 PM = 2.5-11.9 ug/dL CRP SerPl-mCncon 11-17-2023 CRP [Mass/Vol] 0.7 mg/dL Normal <0.9 [facility] Comment on above: Order Comment: Mert men Type: BLOOD SPECIMENOrdering Facility: [facility] Address: [address] [place] [address] Performed By: #### 2 132-9, 1987-11 ####[facility] LABCLIA [id number] [place] [address] [place] CRP [Mass/Vol]on 11-17-2023 Interpretation and review of laboratory results Normal [facility] Centromere Ab IF Ql (S)on Centromere Ab Qn (S) <0.2 Normal <1.0 [facility] Comment on above: Order Comment: Speci men Type: BLOOD SPECIMEN [facility] Address: [address] [place] [address] Result Comment: Anti -centromere antibody is used as in aid in diagnosis of systemic sclerosis. Clinical correlation is required. Test Methodology: Multiplex flow immunoassay. Performed By: #### 4 537-7 #### [facility] CLIA [id number] [address] [place] [address] [place] CENTROMERE AB QUAL Negative Normal Negative [facility] Comment on above: Order Comment: Speci men Type: BLOOD SPECIMEN [facility] Address: [address] [place] [address] Performed By: #### 4 537-7 #### [facility] CLIA [id number] [address] [place] [address] [place] Chromatin Ab Qnon 11-17-2023 CHROMATIN AB QUAL Negative Normal Negative [facility] Comment on above: Order Comment: Speci men Type: BLOOD SPECIMEN [facility] Address: [address] [place] [address] Performed By: #### 4 537-7 #### [facility] CLIA [id number] [address] [place] [address] [place] Chromatin Ab SerPl-aCncon Chromatin Ab Qn <0.2 Normal <1.0 [facility] Comment on above: Order Comment: Speci men Type: BLOOD SPECIMEN [facility]: [facility] Address: [address] [place] [address] Result Comment: Test Methodology: Multiplex flow immunoassay. Performed By: #### 4 537-7 #### [facility] CLIA [id number] [address] [place] [address] [place] Cobalamin (Vitamin B12) [Mas s/Vol]on 11-17-2023 Interpretation and review of laboratory results Normal [facility] Cortis SerPl-mCncon 11-17-19 24 Cortisol [Mass/Vol] 4.6 ug/dL Low 4.8-19.5 [facility] Comment on above: Order Comment: Speci men Type: BLOOD SPECIMENOrdering Facility: [facility] Address: [address] [place] [address] Result Comment: Prov ided reference range is from 6-10 AM sample collection time. Cortisol Reference Range: 6-10 AM = 4.8-19.5 ug/dL, 4-8 PM = 2.5-11.9 ug/dL Performed By: #### 3 024-7, 3053-6, 3016-3, 2143-6 ####[facility] LABCLIA [id number] [place] [address] [place] Cortisol [Mass/Vol]on 2023 Interpretation and review of laboratory results Abnormal [facility] DNA double strand Ab IA Qn ( S)on 11-17-2023 DNA ANTIBODY 10 IU/mL Normal <=200 [facility] Comment on above: Order Comment: Speci men Type: BLOOD SPECIMEN [facility] Address: [address] [place] [address] Result Comment: Nega tive: <200 IU/mL Equivocal: 201-300 IU/mL Moderate Positive: 301-800 IU/mL Strong Positive: >801 IU/mL Performed By: #### 4 537-7 #### [facility] CLIA [id number] [address] [place] [address] [place] DNA ANTIBODY QUALITATIVE INTERPRETATION Negative Normal Negative [facility] Comment on above: Order Comment: Speci men Type: BLOOD SPECIMEN [facility] Address: [address] [place] [address] Performed By: #### 4 537-7 #### [facility] CLIA [id number] [address] [place] [address] [place] LEVY Jo1 Ab Ser-aCncon 2023 Odalis-1 extractable nuclear Ab Qn (S) <0.2 Normal <1.0 [facility] Comment on above: Order Comment: Speci men Type: BLOOD SPECIMENOrdering Facility: [facility] Address: [address] [place] [address] Performed By: #### 1 7791-5, 44990-4, 24305-4, 43816-4, 39400-6, 33450-8, 46969-9, 88373-7 ####[facility] LABCLIA [id number] [place] [address] [place] LEVY PUFFER TENDER Ab Ser-aCncon 2023 Ribonucleoprotein extractable nuclear Ab Qn (S) <0.2 Normal <1.0 [facility] Comment on above: Order Comment: Speci men Type: BLOOD SPECIMEN [facility] Address: [address] [place] [address] Performed By: #### 4 537-7 #### [facility] CLIA [id number] [address] [place] [address] [place] Ribonucleoprotein extractable nuclear Ab Qn (S) 0.4 AI Normal <1.0 [facility] Comment on above: Order Comment: Speci men Type: BLOOD SPECIMENOrdering Facility: [facility] Address: [address] [place] [address] Performed By: #### 1 7791-5, 24599-6, 30200-4, 94663-2, 64013-5, 14547-3, 88768-2, 65583-8 ####[facility] LABCLIA [id number] [place] [address] [place] LEVY SM IgG Ser-aCncon 2023 Blanco extractable nuclear IgG Qn (S) <0.2 Normal <1.0 [facility] Comment on above: Order Comment: Speci men Type: BLOOD SPECIMEN [facility] Address: [address] [place] [address] Performed By: #### 4 537-7 #### [facility] CLIA [id number] [address] [place] [address] [place] LEVY SS-A Ab Ser-aCncon 11-16 Sjogrens syndrome-A extractable nuclear Ab Qn (S) <0.2 Normal <1.0 [facility] Comment on above: Order Comment: Speci men Type: BLOOD SPECIMENOrdering Facility: [facility] Address: [address] [place] [address] Result Comment: Test Methodology: Multiplex flow immunoassay. Performed By: #### 1 7791-5, 23041-2, 51820-9, 16205-8, 65287-8, 59386-4, 13152-9, 59755-3 ####[facility] LABCLIA [id number] [place] [address] [place] LEVY SS-B Ab Ser-aCncon 11-16 Sjogrens syndrome-B extractable nuclear Ab Qn (S) <0.2 Normal <1.0 [facility] Comment on above: Order Comment: Speci men Type: BLOOD SPECIMEN [facility] Address: [address] [place] [address] Result Comment: Anti -SSB (anti-La) antibody is used as an aid in diagnosis of a variety of systemic autoimmune diseases, especially for Sjogren's syndrome and systemic lupus erythematosus. Clinical correlation is required. Test Methodology: Multiplex flow immunoassay. Performed By: #### 4 537-7 #### [facility] CLIA [id number] [address] [place] [address] [place] ESR Westergren method (Bld) [Velocity]on 11-17-2023 ESR (Bld) [Velocity] 25 mm/h High [facility] Interpretation and review of laboratory results Abnormal [facility] ESR (Bld) [Velocity] 25 mm/h High 0-20 [facility] Comment on above: Order Comment: Specjosé miguel del valle Type: BLOOD SPECIMEN [facility] Address: [address] [place] [address] Performed By: #### 4 537-7 #### [facility] CLIA [id number] [address] [place] [address] [place] Odalis-1 extractable nuclear Ab Qn (S)on 11-17-2023 ODALIS 1 ANTIBODY QUAL Negative Normal Negative [facility] Comment on above: Order Comment: Mert del valle Type: BLOOD SPECIMENOrdering Facility: [facility] Address: [address] [place] [address] Result Comment: Anti -ODALIS-1 antibody is used as an aid in diagnosis of polymyositis and dermatomyositis especially with pulmonary involvement. A negative result cannot rule out polymyositis or dermatomyositis. Clinical correlation is required. Test Methodology: Multiplex flow immunoassay. Performed By: #### 1 7791-5, 11068-0, 53960-0, 13908-9, 39883-9, 80656-4, 77647-5, 36164-1 ####[facility] LABCLIA [id number] [place] [address] [place] Ribonucleoprotein extractabl e nuclear Ab Qn (S)on 11-17-2023 ANTI-PUFFER TENDER QUAL Negative Normal Negative [facility] Comment on above: Order Comment: Mert del valle Type: BLOOD SPECIMENOrdering Facility: [facility] Address: [address] [place] [address] Performed By: #### 1 7791-5, 76509-4, 02467-4, 20250-0, 57565-4, 30180-1, 66210-2, 81649-5 ####[facility] LABCLIA [id number] [place] [address] [place] RIBOSOMAL PUFFER TENDER QUAL Negative Normal Negative [facility] Comment on above: Order Comment: Mert del valle Type: BLOOD SPECIMEN [facility]ing Facility[facility] Address: [address] [place] [address] Result Comment: Anti -Ribosomal RNA (Ribosomal P) antibody is used as an aid in diagnosis of systemic autoimmune diseases especially systemic lupus erythematosus and mixed connective tissue disease. Cross-reactivity with Anti-blanco antibody is not uncommon. Clinical correlation is required. Test Methodology: Multiplex flow immunoassay. Performed By: #### 4 537-7 #### [facility] CLIA [id number] [address] [place] [address] [place] SCL-70 extractable nuclear I gG IA Qn (S)on 11-17-2023 SCLERODERMA AB QUAL Negative Normal Negative [facility] Comment on above: Order Comment: Mert del valle Type: BLOOD SPECIMEN [facility]ing Facility: [facility] Address: [address] [place] [address] Performed By: #### 4 537-7 #### [facility] CLIA [id number] [address] [place] [address] [place] SCLERODERMA IGG AB <0.2 Normal <1.0 [facility] Comment on above: Order Comment: Mert del valle Type: BLOOD SPECIMEN [facility]ing Facility[facility] Address: [address] [place] [address] Result Comment: Scl- 70/Scleroderma antibody test is used as an aid in diagnosis of systemic sclerosis especially the diffuse cutaneous form. A negative result cannot rule out systemic sclerosis. The final interpretation should consider clinical picture and other test results such as anti-centromere antibody. Test Methodology: Multiplex flow immunoassay. Performed By: #### 4 537-7 #### [facility] CLIA [id number] [address] [place] [address] [place] Sjogrens syndrome-A extracta ble nuclear Ab Qn (S)on 11-17-2023 SSA ANTIBODY QUAL Negative Normal Negative [facility] Comment on above: Order Comment: Speci men Type: BLOOD SPECIMENOrdering Facility: [facility] Address: [address] [place] [address] Performed By: #### 1 7791-5, 42281-0, 90409-4, 98483-6, 91909-4, 27098-8, 67305-5, 24914-5 ####[facility] LABCLIA [id number] [place] [address] [place] Sjogrens syndrome-B extracta ble nuclear Ab Qn (S)on 11-17-2023 SSB ANTIBODY QUAL Negative Normal Negative [facility] Comment on above: Order Comment: Lynni ivon Type: BLOOD SPECIMEN [facility] Address: [address] [place] [address] Performed By: #### 4 537-7 #### [facility] CLIA [id number] [address] [place] [address] [place] Blanco extractable nuclear Ig G Qn (S)on 11-17-2023 SM ANTIBODY QUAL Negative Normal Negative [facility] Comment on above: Order Comment: Lynni ivon Type: BLOOD SPECIMEN [facility] Address: [address] [place] [address] Result Comment: Anti -Sm (Blanco) antibody is used as an aid in diagnosis of systemic lupus erythematosus and its presence is associated with renal disease. A negative result cannot rule out systemic lupus erythematosus. Clinical correlation is required. Test Methodology: Multiplex flow immunoassay. Performed By: #### 4 537-7 #### [facility] CLIA [id number] [address] [place] [address] [place] T3 SerPl-mCncon 11-17-2023 T3 [Mass/Vol] 111 ng/dL Normal 79-165 [facility] Comment on above: Order Comment: Speci men Type: BLOOD SPECIMENOrdering Facility: [facility] Address: [address] [place], [place] [address], [place] [address] Performed By: #### 3 024-7, 3053-6, 301-3, 2142-12 ####[facility] LABCLIA [id number] [place] [address] [place] T4 Free SerPl-mCncon 024 Free T4 [Mass/Vol] 1.2 ng/dL Normal 0.9-1.7 [facility] Comment on above: Order Comment: Speci men Type: BLOOD SPECIMENOrdering Facility: [facility] Address: [address] [place] [address] Performed By: #### 3 024-7, 3056, 3, 2142-12 ####[facility] LABCLIA [id number] [place] [address] [place] TSH SerPl-aCncon 11-17-2023 TSH Qn 2.200 m[IU]/L Normal 0.270-4.200 [facility] Comment on above: Order Comment: Speci men Type: BLOOD SPECIMENOrdering Facility: [facility] Address: [address] [place] [address] [place] [address] Result Comment: If t he patient is , TSH reference range varies by gestational period: First Trimester (weeks 9-12): 0.180-2.990 mIU/L Second Trimester: 0.110-3.980 mIU/L Third Trimester: 0.480-4.710 mIU/L Shahzad Vance et al. A Practical Approach for the Verifications and Determination of Site- and Trimester-Specific Reference Intervals for Thyroid Function tests in . Thyroid, 2019:29:3:412-420. German E, et al. 2017 Guidelines of the [place] Thyroid Association for the Diagnosis and Management of Thyroid Disease during and the . Thyroid, 2017:27:3:315-389. Performed By: #### 3 024-7, 3053-6, 3016-3, 2142-12 ####[facility] LABCLIA [id number] [place] [id number] [place] VITAMIN B12on 11-17-2023 Cobalamin (Vitamin B12) [Mass/Vol] 344 pg/mL 232 - 1245 pg/mL [facility] VITAMIN D 25 HYDROXYon 11-16 25-hydroxyvitamin D3 [Mass/Vol] 15.3 ng/mL Low 31.0 - 80.0 ng/mL [facility] Vit B12 SerPl-mCncon 11-16- 024 Cobalamin (Vitamin B12) [Mass/Vol] 344 pg/mL Normal 232-1245 [facility] Comment on above: Order Comment: Speci men Type: BLOOD SPECIMENOrdering Facility: [facility] Address: [address] [place] [address] Performed By: #### 2 -9, 1987-11 ####[facility] LABCLIA [id number] [facility] [id number] STATES OF [facility] CNPShannen 11-14-2023 CNPN Telephone (ORQ) LYNETTE HAIRSTON ([id number]) 1975 F Date Time Provider Department 11/14/23 NOEMI PHAM During your visit today, we [...] patient at: at home and on cell [phone] (home) [phone] (cell) Was an appointment scheduled: No Closing statement: Symptom Call: Thank you for calling [facility], your call is very important. A nurse will call in approximately 2-4 hours during business hours. If this is an emergency, please contact 911. Noemi Madrid MD 11/14/2023 1:59 PM Signed Labs ordered for hair loss, please let paitent know. MD Chepe Lopez Laura, MA 11/14/2023 4:26 PM Signed LVM for pt letting know labs are in the system. Allergies As of Date: 11/14/2023 Noted Allergy Reaction MELOXICAM 11/23/2016 4 - Hives Comments: METHOTREXATE 12/25/2014 8 - GI Upset Date Reviewed: 06/24/2023 Reviewed by: Ty Frye MA - Fully Assessed Reason for Visit: Patient Question [1477] Primary Visit Diagnosis:Hair loss [L65.9] Order(s):THYROID STIMULATING HORMONE [SQTSH] Order #: [id number] FUTURE T3 [SQT3] Order #: [id number] FUTURE T4 FREE/FREE THYROXINE [SQFT4] Order #: [id number] FUTURE Prescriptions as of 11/14/2023 - Etanercept [...] Status:Closed by TY MO on 11/14/23 Normal [facility] 36on 11-09-2023 36 Last seen 08/2022. Need appointment to evaluate continued need of medication Normal [facility] 36on 11-08-2023 36 Lat seen 08/2022 - needs appointment Normal [facility] CNPShannen 11-03-2023 STACIAN Telephone (SUNGUAV) LYNETTE HAIRSTON ([id number]) 1975 F Date Time Provider Department 11/03/23 NOEMI PHAM SUNGWINIFRED During your visit today, we recorded the following information about you: Ty oM MA 11/03/2023 10:06 AM Signed PA for Enbrel completed in covermymeds. CaseId:[id number];Statu s:Approved;Review Type:Prior Auth;Coverage Start Date:10/04/2023;Cover age End Date:11/02/2024 Allergies As of Date: 11/03/2023 Noted Allergy Reaction MELOXICAM 11/23/2016 4 - Hives Comments: METHOTREXATE 12/25/2014 8 - GI Upset Date Reviewed: 06/24/2023 Reviewed by: Ty Frye MA - Fully Assessed Reason for Visit: Insurance Authorization [[id number]] Cmt: Enbrel Prescriptions as of 11/03/2023 - [...] Status:Closed by TY MO on 11/03/23 Normal [facility] No Panel Informationon 10-13 [facility] CBC AND AUTO DIFFon 09-27-19 ABSOLUTE BASOPHIL 0.1 X10E9/L Normal 0.0-0.2 [facility] Comment on above: Performed By: #### C BCA, CMP, 84643-9, 24052-0 #### [facility] ([id number]) [address] [place] [address] ABSOLUTE NEUTROPHIL 6.1 X10E9/L Normal 1.5-6.6 [facility] Comment on above: Performed By: #### C BCA, CMP, 99305-3, 20979-1 #### [facility] ([id number]) [address] [place] [address] Basophils/100 WBC (Bld) 0.9 % Normal [facility] Comment on above: Performed By: #### C BCA, CMP, 86324-1, 67987-0 #### [facility] ([id number]) [address] [place] [address] Eosinophils (Bld) [#/Vol] 0.2 10*3/uL Normal 0.0-0.4 [facility] Comment on above: Performed By: #### C BCA, CMP, 33187-3, 92865-8 #### [facility] ([id number]) [address] [place] [address] Eosinophils/100 WBC (Bld) 2.0 % Normal [facility] Comment on above: Performed By: #### C BCA, CMP, 58711-6, 68283-0 #### [facility] ([id number]) [address] [place] [address] Erythrocyte distribution width (RBC) [Ratio] 13.1 % Normal 11.5-15.0 [facility] Comment on above: Performed By: #### C BCA, CMP, 42488-8, 44756-5 #### [facility] ([id number]) [address] [place] [address] Hematocrit (Bld) [Volume fraction] 45.3 % Normal 35-47 [facility] Comment on above: Performed By: #### C BCA, CMP, 87269-8, 79207-7 #### [facility] ([id number]) [address] [facility] [address] Hemoglobin (Bld) [Mass/Vol] 15.4 g/dL Normal 11.7-15.5 [facility] Comment on above: Performed By: #### C NO, CMP, 68363-2, 98799-0 #### [facility] ([id number]) [address] [place] [address] Lymphocytes (Bld) [#/Vol] 2.4 10*3/uL Normal 1.0-3.5 [facility] Comment on above: Performed By: #### C NO, CMP, 96969-3, 37414-9 #### [facility] ([id number]) [address] [place] [address] Lymphocytes/100 WBC (Bld) 25.2 % Normal [facility] Comment on above: Performed By: #### C BCA, CMP, 99019-5, 17858-1 #### [facility] ([id number]) [address] [place] [address] MCH (RBC) [Entitic mass] 31.8 pg Normal 27-34 [facility] Comment on above: Performed By: #### C BCA, CMP, 07783-5, 40694-9 #### [facility] ([id number]) [address] [place] [address] MCHC (RBC) [Mass/Vol] 33.9 g/dL Normal 32-36 [facility] Comment on above: Performed By: #### C BCA, CMP, 15367-9, 07295-3 #### [facility] ([id number]) [address] [place] [address] MCV (RBC) [Entitic vol] 94 fL Normal 80-100 [facility] Comment on above: Performed By: #### C BCA, CMP, 16841-9, 20497-3 #### [facility] ([id number]) [address] [place] [address] Monocytes (Bld) [#/Vol] 0.7 10*3/uL Normal 0-0.9 [facility] Comment on above: Performed By: #### C BCA, CMP, 51481-0, 38167-3 #### [facility] ([id number]) [address] [place] [address] Monocytes/100 WBC (Bld) 7.4 % Normal [facility] Comment on above: Performed By: #### C BCA, CMP, 54903-6, 46565-0 #### [facility] ([id number]) [address] [place] [address] Neutrophils/100 WBC (Bld) 64.5 % Normal [facility] Comment on above: Performed By: #### C BCA, CMP, 95322-2, 13368-9 #### [facility] ([id number]) [address] [place] [address] Platelet mean volume (Bld) [Entitic vol] 9.4 fL Normal 7-12 [facility] Comment on above: Performed By: #### C BCA, CMP, 25346-1, 54731-5 #### [facility] ([id number]) [address] [place] [address] Platelets (Bld) [#/Vol] 186 10*3/uL Normal 150-450 [facility] Comment on above: Performed By: #### C BCA, CMP, 58784-9, 30659-3 #### [facility] ([id number]) [address] [place] [address] RBC COUNT 4.83 X10E12/L Normal 3.80-5.20 [facility] Comment on above: Performed By: #### C BCA, CMP, 20381-3, 32730-1 #### [facility] ([id number]) [address] [place] [address] WBC (Bld) [#/Vol] 9.5 10*3/uL Normal 4.0-11.0 [facility] Comment on above: Performed By: #### C BCA, CMP, 42487-1, 43146-2 #### [facility] ([id number]) [address] [place] [address] COMPREHENSIVE METABOLIC PANE Priyank 09-27-2023 Albumin [Mass/Vol] 4.2 g/dL Normal 3.2-5.3 [facility] Comment on above: Performed By: #### C BCA, CMP, 28414-0, 63007-0 #### [facility] ([id number]) [address] [place] [address] ALP [Catalytic activity/Vol] 37 U/L Low 39-130 [facility] Comment on above: Performed By: #### C BCA, CMP, 72854-4, 40774-6 #### [facility] ([id number]) [address] [place] [address] ALT [Catalytic activity/Vol] 50 U/L High 0-31 [facility] Comment on above: Performed By: #### C BCA, CMP, 64520-4, 09074-6 #### [facility] ([id number]) [address] [place] [address] Anion gap [Moles/Vol] 10 mmol/L Normal 5-15 [facility] Comment on above: Performed By: #### C BCA, CMP, 69271-7, 88820-0 #### [facility] ([id number]) [address] [place] [address] AST [Catalytic activity/Vol] 41 U/L Normal 0-41 [facility] Comment on above: Performed By: #### C BCA, CMP, 09721-1, 91201-0 #### [facility] ([id number]) [address] [place] [address] Bilirubin [Mass/Vol] 1.4 mg/dL High 0.3-1.2 [facility] Comment on above: Performed By: #### C BCA, CMP, 09870-2, 17106-9 #### [facility] ([id number]) [address] [facility] [address] Calcium [Mass/Vol] 9.1 mg/dL Normal 8.5-10.5 [facility] Comment on above: Performed By: #### C BCA, CMP, 97979-5, 33620-5 #### [facility] ([id number]) [address] [facility] [address] Chloride [Moles/Vol] 103 mmol/L Normal 98-109 [facility] Comment on above: Performed By: #### C BCA, CMP, 74019-7, 13111-3 #### [facility] ([id number]) [address] [facility] [address] CO2 [Moles/Vol] 23 mmol/L Normal 22-32 [facility] Comment on above: Performed By: #### C BCA, CMP, 72549-5, 93850-0 #### [facility] ([id number]) [address] [facility] [address] Creatinine [Mass/Vol] 0.99 mg/dL Normal 0.40-1.00 [facility] Comment on above: Result Comment: METH OD TRACEABLE TO IDMS STANDARD Performed By: #### C BCA, CMP, 35653-2, 58219-3 #### [facility] ([id number]) [address] [facility] [address] GFR/1.73 sq M.predicted among non-blacks MDRD (S/P/Bld) [Vol rate/Area] 70 mL/min/{1.73_m2} Normal >59 [facility] Comment on above: Result Comment: Reported eGFR is based on the CKD-EPI 1 equation that does not use a race coefficient. Performed By: #### C BCA, CMP, 65281-5, 75333-2 #### [facility] ([id number]) [address] [place] [address] Glucose [Mass/Vol] 98 mg/dL Normal 65-99 [facility] Comment on above: Performed By: #### C BCA, CMP, 21438-2, 85515-2 #### [facility] ([id number]) [address] [facility] [address] Potassium [Moles/Vol] 3.4 mmol/L Low 3.5-5.0 [facility] Comment on above: Performed By: #### C NO, CMP, 17970-9, 33922-7 #### [facility] ([id number]) [address] [facility] [address] Protein [Mass/Vol] 7.5 g/dL Normal 6.0-8.0 [facility] Comment on above: Performed By: #### C NO CMP, 67120-5, 66482-5 #### [facility] ([id number]) [address] [facility] [address] Sodium [Moles/Vol] 136 mmol/L Normal 134-146 [facility] Comment on above: Performed By: #### C NO CMP, 65951-5, 61765-2 #### [facility] ([id number]) [address] [facility] [address] Urea nitrogen [Mass/Vol] 10 mg/dL Normal 5-23 [facility] Comment on above: Performed By: #### C BCA, CMP, 18162-6, 56751-5 #### [facility] ([id number]) [address] [facility] [address] Fibrin D-dimer DDU (PPP) [Ma ss/Vol]on 09-27-2023 D DIMER <150 Normal <255 [facility] Comment on above: Result Comment: Results <255 ng/mL DDU: The presence of a VTE can safely be excluded with a negative D-Dimer result and Wells score. A negative result doesn't exclude the possibility of DIC. The test be repeated along with other diagnostic tests if the patient's symptoms persist or worsen. [email or web address] Performed By: #### C BCA, CMP, 31845-7, 21115-1 #### [facility] ([id number]) [address] [facility] [place] [address] SARS/FLU A+B/RSV by NAAT/Mol ecularon 09-27-2023 SARS/FLU [...] operators who are performing tests using either [employer] or [employer] systems and is limited to laboratories that [...] specimen repeat. Fact Sheet for Healthcare Providers: https://www.fda.gov/m edia/143990/download Fact Sheet for Patients: https://www.fda.gov/m edia/743638/download Normal [facility] Comment on above: Performed By: #### C OVFLR #### [facility] ([id number]) [address] [place] [address] TROPONIN Ion 09-27-2023 Troponin I.cardiac [Mass/Vol] ng/mL Normal 0.00-0.04 [facility] Comment on above: Performed By: #### C BCA, CMP, 57903-4, 03725-8 #### [facility] ([id number]) [address] [place] [address] URINE CULTUREon 09-27-2023 Bacteria identified Cx Nom (U) CULTURE RESULTS <10,000 ORGANISMS/ML NORMAL URO GENITAL JIMMY Normal [facility] Comment on above: Performed By: #### 6 30-4 #### [facility] ([id number]) [address] [place] [address], [address] [place] [address] URN MACROSCOPIC NURon 2023 BILIRUBIN GALLO Negative Normal NEG [facility] Comment on above: Performed By: #### N UM #### [facility] ([id number]) [address] [place] [address] BLOOD/HGB GALLO Negative Normal NEG [facility] Comment on above: Performed By: #### N UM #### [facility] ([id number]) [address] [place] [address] GLUCOSE GLALO Negative Normal NEG [facility] Comment on above: Performed By: #### N UM #### [facility] ([id number]) [address] [place] [address] KETONES GALLO Negative Normal NEG [facility] Comment on above: Performed By: #### N UM #### [facility] ([id number]) [address] [place] [address] LEUKOCYTE ESTERASE GALLO Negative Normal NEG [facility] Comment on above: Performed By: #### N UM #### [facility] ([id number]) [address] [place] [address] NITRITE GALLO Positive Abnormal NEG [facility] Comment on above: Performed By: #### N UM #### [facility] ([id number]) [address] [place] [address] PH GALLO 7.0 Normal 5.0-8.5 [facility] Comment on above: Performed By: #### N UM #### [facility] ([id number]) [address] [place] [address] PROTEIN GALLO Negative Normal NEG [facility] Comment on above: Performed By: #### N UM #### [facility] ([id number]) [address] [place] [address] SPECIFIC GRAVITY GALLO 1.020 Normal 1.003-1.035 [facility] Comment on above: Performed By: #### N UM #### [facility] ([id number]) [address] [place] [address] UROBILINOGEN GALLO 0.2 eu/dL Normal <1.1 [facility] Comment on above: Performed By: #### N UM #### [facility] ([id number]) [address] [place] [address] Urine collection deviceon ER EXTRA URINES ER EXTRA URINE ORDER IN PROCESS Normal [facility] Comment on above: Performed By: #### 8 0334-6 #### [facility] ([id number]) [address] [place] [address] XR CHEST 1 VWon 09-27-2023 XR CHEST 1 VW XR CHEST 1 VW XR CHEST 1 VW CLINICAL INFORMATION: Shortness of breath. COMPARISON: 03/25/23. IMPRESSION: * No acute cardiopulmonary disease. Finalized by Manas Biggs MD on 09/27/2023 3:16 PM Normal [facility] Mary 09-22-2023 STACIAN Telephone ([employer]) LYNETTE HAIRSTON ([id number]) 1975 F Date Time Provider Department 09/22/23 NOEMI PHAM During your visit today, we recorded the following information about you: Abby Shaw 09/22/2023 8:52 AM Signed Patient is calling today to request her MRI of the Lumbar spine be printed and signed and faxed over to [facility] at: [phone]. Please call and advise when this is done so she can get this scheduled. Patient has been identified by name and birthdate. Duration of symptoms: N/A Person calling: self Call patient at: at home [phone] (home) [phone] (cell) Was an appointment scheduled: No Closing statement: Results or non-symptom based questions: Thank you for calling [facility], your call will be returned within the next business day. Inocencia Gross LPN 09/22/2023 12:11 PM Signed Printed and placed on Dr. Pham's desk for signature. Brianda Palomares LPN 09/22/2023 12:58 PM Signed Received back with signature from Dr. Pham and faxed to [phone] per Patients request. Allergies As of Date: [...] Encounter Status:Closed by INOCENCIA BUI on 09/22/23 [facility] CNPShannen 09-21-2023 CNPN Telephone (SUNGUAV) LYNETTE HAIRSTON ([id number]) 1975 F Date Time Provider Department 09/21/23 NOEMI PAHM During your visit today, we recorded the following information about you: Brianda Palomares LPN 09/21/2023 12:09 PM Signed Received fax from [facility]. X-ray results XR lumbar spine. One [...] Encounter Status:Closed by BRIANDA PALOMARES on 09/21/23 Normal [facility] CNPNon 09-19-2023 CNPN Telephone (RHEUAV) LYNETTE HAIRSTON ([id number]) 1975 F Date Time Provider Department 09/19/23 [...] for any orders to be faxed to [facility] Noemi Pham MD 09/19/2023 2:05 PM Signed Yes I can order xray of hip and low back. Which hip is it? MD Chepe Lopez Laura, MA 09/19/2023 4:40 PM Signed Called and spoke with pt. She states it is the R-Hip. She needs us to fax orders to [facility] [phone]. Zayra Sarabia 09/20/2023 9:03 AM Signed Patient called to check on status regarding fax. Also requested the order to be faxed to [phone]. Please call patient once order is faxed. BuiInocencia LPN 09/20/2023 9:09 AM Signed Faxed x-ray orders to both fax numbers as requested by patient. Faxed via [employer]. Allergies As of Date: 09/19/2023 Noted Allergy Reaction MELOXICAM 11/23/2016 4 - Hives Comments: METHOTREXATE 12/25/2014 8 - GI Upset Date Reviewed: 06/24/2023 Reviewed by: Ty Frye MA - Fully Assessed Reason for Visit: Pain [78] Primary Visit Diagnosis:Chronic bilateral low back pain without sciatica [M54.50, G89.29] Order(s):XR LUMBAR GENERAL 3V AP/LAT/L5-S1 [[id number]] Order #: [id number] FUTURE Prescriptions as of 09/20/2023 - Etanercept [...] Status:Closed by INOCENCIA BUI on 09/20/23 Normal [facility] POCT EKGon 09-02-2023 [facility] ALDOLASE BLDon 06-24-2023 Aldolase [Catalytic activity/Vol] 11.2 mU/mL High 1.5 - 8.1 U/L [facility] C-REACTIVE PROTEIN (CRP)on 1 08-25-2022 CRP [Mass/Vol] 0.6 mg/dL <0.9 mg/dL [facility] CBC panel Auto (Bld)on 06-24 Erythrocyte distribution width (RBC) [Ratio] 11.9 % 11.5 - 15.0 % [facility] Hematocrit (Bld) [Volume fraction] 45.7 % 36.0 - 46.0 % [facility] Hemoglobin (Bld) [Mass/Vol] 15.5 g/dL 11.5 - 15.5 g/dL [facility] MCH (RBC) [Entitic mass] 31.6 pg 26.0 - 34.0 pg [facility] MCHC (RBC) [Mass/Vol] 33.9 g/dL 30.5 - 36.0 g/dL [facility] MCV (RBC) [Entitic vol] 93.1 fL 80.0 - 100.0 fL [facility] Nucleated RBC (Bld) [#/Vol] <0.01 k/uL [facility] Platelet mean volume (Bld) [Entitic vol] 10.6 fL 9.0 - 12.7 fL [facility] Platelets (Bld) [#/Vol] 192 10*3/uL 150 - 400 k/uL [facility] RBC (Bld) [#/Vol] 4.91 10*6/uL 3.90 - 5.2 0 m/uL [facility] WBC (Bld) [#/Vol] 8.95 10*3/uL 3.70 - 11. 00 k/uL [facility] CK CREATINE KINASEon 023 CK [Catalytic activity/Vol] 119 U/L 42 - 196 U/L [facility] Comprehensive metabolic 2000 panelon 06-24-2023 Albumin [Mass/Vol] 4.5 g/dL 3.9 - 4.9 g/dL Cl [facility] ALP [Catalytic activity/Vol] 46 U/L 34 - 123 U/L [facility] ALT [Catalytic activity/Vol] 46 U/L High 7 - 38 U/L [facility] Anion gap [Moles/Vol] 8 mmol/L Low 9 - 18 mmol/L [facility] AST [Catalytic activity/Vol] 39 U/L High 13 - 35 U/L [facility] Bilirubin [Mass/Vol] 1.2 mg/dL 0.2 - 1 .3 mg/dL [facility] Calcium [Mass/Vol] 9.5 mg/dL 8.5 - 10. 2 mg/dL [facility] Chloride [Moles/Vol] 105 mmol/L 97 - 10 5 mmol/L [facility] CO2 [Moles/Vol] 27 mmol/L 22 - 30 mmol/L [facility] Creatinine [Mass/Vol] 1.10 mg/dL High 0.58 - 0.96 mg/dL [facility] Estimated Glomerular Filtration Rate 62 mL/min/1.73m >=60 mL/min/1.73m [facility] Glucose [Mass/Vol] 94 mg/dL 74 - 99 mg/dL [facility] Potassium [Moles/Vol] 4.2 mmol/L 3.7 - 5.1 mmol/L [facility] Protein [Mass/Vol] 7.3 g/dL 6.3 - 8.0 g/dL [facility] Sodium [Moles/Vol] 140 mmol/L 136 - 144 mmol/L [facility] Urea nitrogen [Mass/Vol] 12 mg/dL 7 - 21 mg/dL [facility] ESR Westergren method (Bld) [Velocity]on 06-24-2023 ESR (Bld) [Velocity] 23 mm/h High 0 - 20 mm/hr [facility] No Panel Informationon 06-24 [facility] EMG(NEURO/NI)on 12-24-2022 [facility] C-REACTIVE PROTEIN (CRP)on 0 08-11-2022 CRP [Mass/Vol] 0.8 mg/dL <0.9 mg/dL [facility] CBC panel Auto (Bld)on 08-11 Erythrocyte distribution width (RBC) [Ratio] 11.7 % 11.5 - 15.0 % [facility] Hematocrit (Bld) [Volume fraction] 44.1 % 36.0 - 46.0 % [facility] Hemoglobin (Bld) [Mass/Vol] 15.2 g/dL 11.5 - 15.5 g/dL [facility] MCH (RBC) [Entitic mass] 31.7 pg 26.0 - 34.0 pg [facility] MCHC (RBC) [Mass/Vol] 34.5 g/dL 30.5 - 36.0 g/dL [facility] MCV (RBC) [Entitic vol] 92.1 fL 80.0 - 100.0 fL [facility] Nucleated RBC (Bld) [#/Vol] <0.01 k/uL [facility] Platelet mean volume (Bld) [Entitic vol] 11.0 fL 9.0 - 12.7 fL [facility] Platelets (Bld) [#/Vol] 205 10*3/uL 150 - 400 k/uL [facility] RBC (Bld) [#/Vol] 4.79 10*6/uL 3.90 - 5.2 0 m/uL [facility] WBC (Bld) [#/Vol] 9.49 10*3/uL 3.70 - 11. 00 k/uL [facility] CK CREATINE KINASEon 023 CK [Catalytic activity/Vol] 115 U/L 42 - 196 U/L [facility] Comprehensive metabolic 2000 panelon 08-11-2022 Albumin [Mass/Vol] 4.6 g/dL 3.9 - 4.9 g/dL [facility] ALP [Catalytic activity/Vol] 44 U/L 34 - 123 U/L [facility] ALT [Catalytic activity/Vol] 32 U/L 7 - 38 U/L [facility] Anion gap [Moles/Vol] 9 mmol/L 9 - 18 mmol/L [facility] AST [Catalytic activity/Vol] 26 U/L 13 - 35 U/L [facility] Bilirubin [Mass/Vol] 0.9 mg/dL 0.2 - 1 .3 mg/dL [facility] Calcium [Mass/Vol] 10.5 mg/dL High 8.5 - 10. 2 mg/dL [facility] Chloride [Moles/Vol] 102 mmol/L 97 - 10 5 mmol/L [facility] CO2 [Moles/Vol] 29 mmol/L 22 - 30 mmol/L [facility] Creatinine [Mass/Vol] 0.93 mg/dL 0.58 - 0.96 mg/dL [facility] Estimated Glomerular Filtration Rate 76 mL/min/1.73m >=60 mL/min/1.73m [facility] Glucose [Mass/Vol] 97 mg/dL 74 - 99 mg/dL [facility] Potassium [Moles/Vol] 4.7 mmol/L 3.7 - 5.1 mmol/L [facility] Protein [Mass/Vol] 7.6 g/dL 6.3 - 8.0 g/dL [facility] Sodium [Moles/Vol] 140 mmol/L 136 - 144 mmol/L [facility] Urea nitrogen [Mass/Vol] 15 mg/dL 7 - 21 mg/dL [facility] ESR Westergren method (Bld) [Velocity]on 08-11-2022 ESR (Bld) [Velocity] 23 mm/h High 0 - 20 mm/hr Cl [facility] XR elbow RT 2Von 07-30-2022 XR elbow RT 2V [facility] [employer] [address] [place] [address] XRay Report Signed Patient: Lynette Hairston MR#: [id number] 46 : 1975 Acct:[id number] Age/Sex: 47 / F ADM Date: 07/30/22 Loc: [facility] Room: Type: [facility] Attending Dr: Jud Monson NP-C Copies to: [...] Martines Jr., D.O.07/30/2022 12:09 PM Dictation Location: [place] [address] Transcribed By: [facility] 07/30/22 1209 Dictated By: Jeremie Martines Jr, DO 07/30/22 1209 Signed By: 07/30/22 1209 Normal [facility] XR CERVICAL SPINE (2-3 VIEWS )Ordered By: James Restrepo on 02-07-2021 No acute osseous abnormality. [employer] Phone: EXAMINATION: XRAY VIEWS OF THE CERVICAL SPINE 02/07/2021 12:33 pm COMPARISON: None. HISTORY: ORDERING SYSTEM PROVIDED HISTORY: right arm pain TECHNOLOGIST PROVIDED HISTORY: right arm pain Reason for Exam: RUE pain Acuity: Chronic Type of Exam: Initial FINDINGS: Vertebral body height and alignment are maintained. There are minimal degenerative changes. There is no evidence of fracture or malalignment. [employer] Phone: Rashid, Mhpn Incoming Radiant Results From [facility] - 02/07/2021 1:12 PM EDT EXAMINATION: XRAY [...] or malalignment. IMPRESSION: No acute osseous abnormality. [facility] Work Phone: [facility] Work Phone: ABDOMEN 1VWon 08-08-2020 ABDOMEN 1VW [facility] Department of Radiology [address] [place] [id number] Patient Name: LYNETTE PRINCE : 1975 Sex: F Age: Race: NA Pt. Location: [facility] Patient Status: O Ordered Date: 08/08/2020 10:50:00 AM Completed Date: 08/08/2020 10:47 AM Requesting Provider: CRISTHIAN FALCON Attending Provider: CRISTHIAN FALCON Report Copy To: Signs & Symptoms: K59.00 Constipation, unspecified I10 History: [place] Comments: please evaluate for fecal over load Exam: ABDOMEN 1VW ABDOMEN 1VW 08/08/2020 10:47 AM CLINICAL INDICATIONS: [...] projections. Electronically signed: Brady Shen. Transcribed by: [id number], User Resident: Electronically Signed by: BRADY SHEN @ 08/08/2020 03:15 PM Normal [facility] Comment on above: Order Comment: pleas e evaluate for fecal over load AFP TUMOR MARKER [id number] AFP TUMOR MARKER 2 ng/mL Normal 0-9 [facility] Comment on above: Result Comment: INTE [...] reference intervals for this test in the [employer] [facility] Test Directory ([employer]). Performed By: [facility] [address] [place] [address] Water Conservation Specialist: MD Derick Dominguez 08-08-2020 Nuclear Ab IF (S) [Titer] <1:40 Normal <1:40,1:40 [facility] Comment on above: Performed By: #### 1 1396, 69716 #### [facility] [address] [place] [address], [place] BASIC METABOLIC PANELon 07-25 Calcium [Mass/Vol] 9.3 mg/dL Normal 8.6-10.3 [facility] Comment on above: Performed By: #### 9 9908, 81960 #### [facility] [address] [place] [address], [place] Chloride [Moles/Vol] 104 mmol/L Normal 98-107 [facility] Comment on above: Performed By: #### 9 9908, 74412 #### [facility] [address] [place] [address], [place] CO2 [Moles/Vol] 25 mmol/L Normal 21-31 [facility] Comment on above: Performed By: #### 9 9908, 56444 #### [facility] [address] [place] [address], [place] Creatinine [Mass/Vol] 0.93 mg/dL Normal 0.60-1.20 [facility] Comment on above: Performed By: #### 9 9908, 37265 #### [facility] [address] [place] [address], [place] GFR/1.73 sq M predicted among blacks MDRD (S/P/Bld) [Vol rate/Area] mL/min/{1.73_m2} Normal >60 [facility] Comment on above: Performed By: #### 9 9908, 11807 #### [facility] [address] [place] [address], [place] GFR/1.73 sq M predicted among non-blacks MDRD (S/P/Bld) [Vol rate/Area] mL/min/{1.73_m2} Normal >60 [facility] Comment on above: Performed By: #### 9 9908, 19167 #### [facility] [address] [place] [address], [facility] Glucose [Mass/Vol] 97 mg/dL Normal 70-100 [facility] Comment on above: Performed By: #### 9 9909, 58986 #### [facility] [address] [place] [address], [facility] Potassium [Moles/Vol] 3.9 mmol/L Normal 3.5-5.1 [facility] Comment on above: Performed By: #### 9 9908, 37993 #### [facility] [address] [place] [address], [facility] Sodium [Moles/Vol] 137 mmol/L Normal 136-145 [facility] Comment on above: Performed By: #### 9 09, 92238 #### [facility] [address] [facility] [place] [address], [facility] Urea nitrogen [Mass/Vol] 15 mg/dL Normal 7-25 [facility] Comment on above: Performed By: #### 9 9909, 14687 #### [facility] [address] [facility] [place] [address], [facility] CBC W/DIFFon 08-08-2020 ABS BASOPHILS 0.1 10*3/uL Normal 0.0-0.2 [facility] Comment on above: Performed By: #### 5 0103 #### [facility] [address] [facility] [place] [address], [facility] ABS IMM GRANS 0.0 10*3/uL Normal 0.0-0.2 [facility] Comment on above: Performed By: #### 5 0103 #### [facility] [address] [place] [place] [address], [facility] ABS NEUTROPHILS 4.4 10*3/uL Normal 1.6-7.6 [facility] Comment on above: Performed By: #### 5 0103 #### [facility] [address] [address], [facility] Basophils/100 WBC (Bld) 0.9 % Normal 0.0-1.0 [facility] Comment on above: Performed By: #### 5 0103 #### [facility] [address] [place] [address], [facility] Eosinophils (Bld) [#/Vol] 0.1 10*3/uL Normal 0.0-0.5 [facility] Comment on above: Performed By: #### 5 0103 #### [facility] [address] [facility] [place] [address], [facility] Eosinophils/100 WBC (Bld) 1.1 % Normal 0.0-6.0 [facility] Comment on above: Performed By: #### 5 0103 #### [facility] [address] Erythrocyte distribution width (RBC) [Ratio] 13.0 % Normal 11.5-15.0 [facility] Comment on above: Performed By: #### 5 0103 #### [facility] [address] [place] [address], [facility] Hematocrit (Bld) [Volume fraction] 42.8 % Normal 36.0-45.0 [facility] Comment on above: Performed By: #### 5 0103 #### [facility] [address] [place] [place] [address], [facility] Hemoglobin (Bld) [Mass/Vol] 14.7 g/dL Normal 12.0-15.0 [facility] Comment on above: Performed By: #### 5 0103 #### [facility] [address] [place] [address], [facility] IMMATURE GRANS 0.3 % Normal 0.0-1.0 [facility] Comment on above: Performed By: #### 5 3 #### [facility] [address] [address], [facility] Lymphocytes (Bld) [#/Vol] 2.2 10*3/uL Normal 1.2-4.0 [facility] Comment on above: Performed By: #### 5 0103 #### [facility] [address] [place] [address], [facility] Lymphocytes/100 WBC (Bld) 30.0 % Normal 20.0-45.0 [facility] Comment on above: Performed By: #### 5 0103 #### [facility] [address] [facility] MCH (RBC) [Entitic mass] 31.4 pg Normal 27.0-33.0 [facility] Comment on above: Performed By: #### 5 3 #### [facility] [address] [facility] [address] MCHC (RBC) [Mass/Vol] 34.3 g/dL Normal 32.0-35.0 [facility] Comment on above: Performed By: #### 5 3 #### [facility] [address] [facility] [place] [address], [facility] MCV (RBC) [Entitic vol] 91.5 fL Normal 82.0-98.0 [facility] Comment on above: Performed By: #### 5 3 #### [facility] [address] [facility] [place] [address], [facility] Monocytes (Bld) [#/Vol] 0.6 10*3/uL Normal 0.1-1.0 [facility] Comment on above: Performed By: #### 5 3 #### [facility] [address] [place] [address], [facility] MONOS 8.6 % Normal 5.0-12.0 [facility] Comment on above: Performed By: #### 5 3 #### [facility] [address] [facility] [place] [address], [place] Neutrophils/100 WBC (Bld) 59.1 % Normal 40.0-72.0 [facility] Comment on above: Performed By: #### 5 0103 #### [facility] [address] [place] [address], [facility] Nucleated RBC/100 WBC (Bld) [Ratio] 0 % Normal 0-0 [facility] Comment on above: Performed By: #### 5 0103 #### [facility] [address] [place] [address], [facility] PLAT CNT 163 10*3/uL Normal 150-400 [facility] Comment on above: Performed By: #### 5 0103 #### [facility] [address] [place] [address], [facility] RBC (Bld) [#/Vol] 4.68 10*6/uL Normal 3.80-5.00 [facility] Comment on above: Performed By: #### 5 0103 #### [facility] [address] [place] [address], [facility] WBC (Bld) [#/Vol] 7.44 10*3/uL Normal 4.00-10.60 [facility] Comment on above: Performed By: #### 5 3 #### [facility] [address] HEPATITIS A ANTIBODY IGMon 0 08-08-2020 HEP A AB IGM NONREACTIVE Normal NONREACTIVE [facility] Comment on above: Performed By: #### 3 1422, 37030, 19340, 60418 #### [facility] [address] [place] [address], [facility] HEPATITIS B CORE ANTIBODYon 08-08-2020 HEP B CORE AB NONREACTIVE Normal NONREACTIVE The [facility] Comment on above: Performed By: #### 3 1422, 78795, 85203, 04794 #### [facility] [address] [facility] [place] [address], [facility] HEPATITIS B SURFACE ANTIGEN QUALon 08-08-2020 HEP B SURF AG QUAL NONREACTIVE Normal NONREACTIVE [facility] Comment on above: Performed By: #### 3 1422, 69753, 51031, 74461 #### [facility] [address] [place] [address], [facility] HEPATITIS C ANTIBODYon 08-08 ANTI-HCV NONREACTIVE Normal NONREACTIVE [facility] Comment on above: Performed By: #### 3 1422, 52392, 05484, 47723 #### [facility] [address] [facility] [place] [address], [facility] LIVER BATTERYon 08-08-2020 Albumin [Mass/Vol] 4.5 g/dL Normal 3.5-5.7 [facility] Comment on above: Performed By: #### 9 9909, 30945 #### [facility] [address] [facility] [place] [address], [facility] ALKALINE PHOSPH 37 IU/L Normal 34-104 [facility] Comment on above: Performed By: #### 9 9908, 33866 #### [facility] [address] [facility] [place] [address], [facility] ALT [Catalytic activity/Vol] 56 U/L High 7-52 [facility] Comment on above: Performed By: #### 9 9908, 61511 #### [facility] [address] [facility] [place] [address], [facility] AST [Catalytic activity/Vol] 38 U/L Normal 13-39 [facility] Comment on above: Performed By: #### 9 9908, 40481 #### [facility] [address] [place] [address], [facility] Bilirubin [Mass/Vol] 1.1 mg/dL High 0.3-1.0 [facility] Comment on above: Performed By: #### 9 9908, 07437 #### [facility] [address] [place] [address], [facility] Bilirubin.direct [Mass/Vol] 0.2 mg/dL Normal 0.0-0.2 [facility] Comment on above: Performed By: #### 9 9909, 28039 #### [facility] [address] [place] [address], [facility] Protein [Mass/Vol] 7.5 g/dL Normal 6.0-8.3 [facility] Comment on above: Performed By: #### 9 9909, 67718 #### [facility] [address] [place] [address], [facility] LIVER FIBROSIS CHRONIC VIRAL [id number] 08-08-2020 [id number] N,FIBROMETER 259 mg/dL Normal 131-293 [facility] ALT [Catalytic activity/Vol] 69 U/L High 5-40 [facility] Amylase [Catalytic activity/Vol] 131 U/L High 7-33 [facility] AST [Catalytic activity/Vol] 54 U/L High 9-40 [facility] Comment on above: Result Comment: This specimen is Hemolyzed. This may cause the results to be falsely increased. CIRRHOMETER PATIENT SCORE 0.12 Normal [facility] EER FIBROMETER REPORT See Note Normal [facility] Comment on above: Result Comment: [facility] Enhanced Report using the link below: -Direct access: [email or web address] FIBROMETER INTERPRETATION See Report Normal [facility] Comment on above: Result Comment: INTE RPRETIVE INFORMATION: Fibrometer Interpretation Calculations for the final report are based on accurate data for age, gender, and platelet count. If any of this information needs to be corrected, please contact [facility] Client Services to request a recalculation. Client Services may be contacted at . The [employer] FibroMeter profile serves as a surrogate marker [...] developed and its performance characteristics determined by [employer]. It has not been cleared or approved by the [place] Food and Drug Administration. This test was performed in a CLIA certified laboratory and is intended for clinical purposes. [13] [17] Performed By: [facility] [facility] [address] [place] [address] Water Conservation Specialist: Radha Horton MD FIBROMETER PLATELET CT 163 k/uL Normal [facility] FIBROMETER PLATELET IND 81 % Low 90-120 [facility] FIBROMETER PLATELET SCORE 0.62 Normal [facility] FIBROSIS METAVIR CLASSIFICATION F2[F1-F3] Normal [facility] Comment on above: Result Comment: INTE [...] possible INFLAMETER METAVIR CLASSIFICATION A1/A2 Normal [facility] Comment on above: Result Comment: INTE RPRETIVE INFORMATION: InflaMeter Metavir Classification InflaMeter (activity score) comments A0/A1 Equal probability between A0 and A1 A1/A2 Equal probability between A1 and A2 A2/A3 Equal probability between A2 and A3 INFLAMETER PATIENT SCORE 0.61 Normal [facility] Urea nitrogen [Mass/Vol] 14 mg/dL Normal 7-20 [facility] MITOCHONDRIAL ABon 1 MITOCHONDRIAL AB SEE [place]UP RESULT Abnormal NONE DETECTED [facility] Comment on above: Result Comment: NONE DETECTED LESS THAN 1:20 INTERMEDIATE LEVEL 1:20 - 1:80 (MAY BE PRESENT IN AUTOALLERGIC LIVER DISEASE) ELEVATED LEVEL GREATER THAN OR EQUAL TO 1:160 (STRONGLY SUGGESTIVE OF PRIMARY BILIARY CIRRHOSIS) Performed By: #### [id number] #### [facility] [address] MITOCHONDRIAL M2 ANTIBODY, I [place] [id number] 08-08-2020 MITOCHONDRIAL M2 ANTIBODY IGG 2.1 Units Normal 0.0-24.9 [facility] Comment on above: Result Comment: REFE [...] does not rule out PBC. Performed By: [employer] [address] [place] [address] Water Conservation Specialist: Radha Hroton MD PROTHROMBIN TIMEon 1 INR Coag (PPP) [Relative time] 1.05 {INR} Normal 0.91-1.16 [facility] Comment on above: Result Comment: ACCC P RECOMMENDED INR FOR WARFARIN THERAPY ------- ------- CONDITION INR PROPHYLAXIS OF VENOUS THROMBOSIS 2-3 (HIGH-RISK SURGERY) TREATMENT OF VENOUS THROMBOSIS 2-3 TREATMENT OF PULMONARY EMBOLISM 2-3 PREVENTION OF SYSTEMIC EMBOLISM: 2-3 ACUTE MYOCARDIAL INFARCTION TISSUE HEART VALVES VALVULAR HEART DISEASE ATRIAL FIBRILLATION RECURRENT SYSTEMIC EMBOLISM MECHANICAL HEART VALVE 2.5-3.5 FROM: ORAL ANTICOAGULANTS. MECHANISM OF ACTION, CLINICAL EFFECTIVENESS, AND OPTIMAL THERAPEUTIC RANGE. CHEST 1995;108:231S-246S. Performed By: #### [id number], [id number] #### [facility] [address] [place] [address], [facility] PT Coag (PPP) [Time] 13.7 s Normal 12.3-14.8 [facility] Comment on above: Result Comment: ALL RESULTS MUST BE INTERPRETED WITH RESPECT TO BLOOD DRAWING ARTIFACT OR DILUTION ERROR OF ANTICOAGULANT AT THE TIME OF SAMPLING. Performed By: #### 1 [id number], [id number] #### [facility] [address] [facility] [place] [address], [facility] XR FOOT LEFT (MIN 3 VIEWS)on 04-24-2019 No acute osseous abnormality in the left foot[facility] [place] [place] EXAM[facility]ATION: THREE XRAY VIEWS OF THE LEFT [...] Joint spaces are preserved. No bony erosion. [facility], [place] Rashid, Mhpn Incoming Radiant Results From [facility] - 04/24/2019 5:49 PM EDT EXAMINATION: THREE [...] acute osseous abnormality in the left foot. [facility] [place] Large Joint Arthro/Inj: bila teral greater trochanteric bursa injection [facility] Vital Signs Date Time Vital Sign Value Performing Clinician Facility 08-24-2024 09:55-0500 Body height 167.6 cm Mayi Keys MD Work Phone: [facility] 08-24-2024 09:55-0500 Body mass index (BMI) [Ratio] 41.48 kg/m2 Mayi Keys MD Work Phone: [facility] 08-24-2024 09:55-0500 Body weight 116.57 kg Mayi Keys MD Work Phone: [facility] 08-24-2024 08:11-0500 Body height 167.6 cm Bienvenido Reza MD Work Phone: [facility] 08-24-2024 08:11-0500 Body mass index (BMI) [Ratio] 41.16 kg/m2 Bienvenido Reza MD Work Phone: [facility] 08-24-2024 08:11-0500 Body weight 115.67 kg Bienvenido Reza MD Work Phone: [facility] 07-14-2024 14:26-0500 Heart rate 90 /min Livan Toussaint MD [facility] 07-14-2024 14:26-0500 SaO2% (BldA) [Mass fraction] 94 % Livan Toussaint MD [facility] 07-14-2024 11:56-0500 Diastolic blood pressure 82 mm[Hg] Livan Toussaint MD [facility] 07-14-2024 11:56-0500 Systolic blood pressure 124 mm[Hg] Livan Toussaint MD [facility] 07-14-2024 11:39-0500 Body height 167.6 cm Livan Toussaint MD [facility] 07-14-2024 11:39-0500 Body mass index (BMI) [Ratio] 41.28 kg/m2 Livan Toussaint MD [facility] 07-14-2024 11:39-0500 Body weight 116 kg Livan Toussaint MD [facility] 07-14-2024 10:09-0500 Body temperature 98.8 [degF] Livan Toussaint MD [facility] 07-14-2024 10:09-0500 Respiratory rate 18 /min Livan Toussaint MD [facility] 07-07-2024 10:07-0500 Body height 167.6 cm Kermit Blanco APRN-MANAGER [employer] Work Phone: [facility] [email or web address] [facility] 07-07-2024 10:07-0500 Body mass index (BMI) [Ratio] 41.16 kg/m2 Kermit Blanco APRN-MANAGER [employer] Work Phone: [facility] [email or web address] [facility] 07-07-2024 10:07-0500 Body temperature 97.39 [degF] Kermit Blanco APRN-MANAGER [employer] [facility] 07-07-2024 10:07-0500 Body weight 115.67 kg Kermit Blanco APRN-MANAGER [employer] Work Phone: [facility] [email or web address] [facility] 07-07-2024 10:07-0500 Diastolic blood pressure 71 mm[Hg] Kermit Blanco APRN-MANAGER [employer] [facility] 07-07-2024 10:07-0500 Heart rate 96 /min Kermit Blanco COMPUTER SCIENTIST-MANAGER [employer] Work Phone: [facility] 07-07-2024 10:07-0500 Respiratory rate 18 /min Kermit Blanco COMPUTER SCIENTIST-MANAGER [employer] Work Phone: [facility] 07-07-2024 10:07-0500 SaO2% (BldA) [Mass fraction] 97 % Kermit Blanco COMPUTER SCIENTIST-MANAGER [employer] Work Phone: [facility] 07-07-2024 10:07-0500 Systolic blood pressure 118 mm[Hg] Kermit Blanco COMPUTER SCIENTIST-MANAGER [employer] Work Phone: [facility] 06-01-2024 14:35-0500 Body height 167.6 cm Noemi Pham MD Work Phone: [facility] 06-01-2024 14:35-0500 Body mass index (BMI) [Ratio] 41.37 kg/m2 Noemi Pham MD Work Phone: [facility] 06-01-2024 14:35-0500 Body weight 116.2 kg Noemi Pham MD Work Phone: [facility] 06-01-2024 14:35-0500 Diastolic blood pressure 87 mm[Hg] Noemi Pham MD Work Phone: [facility] 06-01-2024 14:35-0500 Heart rate 116 /min Noemi Pham MD Work Phone: [facility] 06-01-2024 14:35-0500 Respiratory rate 18 /min Noemi Pham MD Work Phone: [facility] 06-01-2024 14:35-0500 Systolic blood pressure 117 mm[Hg] Noemi Pham MD Work Phone: [facility] 01-27-2024 09:50-0400 Body height 167.6 cm Noemi Pham MD Work Phone: [facility] 01-27-2024 09:50-0400 Body mass index (BMI) [Ratio] 41.35 kg/m2 Noemi Pham MD Work Phone: [facility] 01-27-2024 09:50-0400 Body weight 116.2 kg Noemi Pham MD Work Phone: [facility] 01-27-2024 09:50-0400 Diastolic blood pressure 86 mm[Hg] Noemi Pham MD Work Phone: [facility] 01-27-2024 09:50-0400 Heart rate 101 /min Noemi Pham MD Work Phone: [facility] Comment on above: baseline per pt 01-27-2024 09:50-0400 Systolic blood pressure 135 mm[Hg] Noemi Pham MD Work Phone: [facility] 01-25-2024 08:01-0400 Body height 167.6 cm Danita Rdzon DO Work Phone: [facility] 01-25-2024 08:01-0400 Body mass index (BMI) [Ratio] 41 kg/m2 Danita Glenn Armaan DO Work Phone: [facility] 01-25-2024 08:01-0400 Body weight 115.21 kg Danita Glenn Armaan DO Work Phone: [facility] 01-25-2024 08:01-0400 Diastolic blood pressure 83 mm[Hg] Danitanafisa Elizabeth Armaan DO Work Phone: [facility] 01-25-2024 08:01-0400 Heart rate 104 /min Danitanafisa Elizabeth Armaan DO Work Phone: [facility] 01-25-2024 08:01-0400 SaO2% (BldA) [Mass fraction] 98 % Dantia Glenn Armaan DO Work Phone: [facility] 01-25-2024 08:01-0400 Systolic blood pressure 118 mm[Hg] Danitanafisa Elizabeth Armaan DO Work Phone: [facility] 12-02-2023 15:33-0400 Body height 167.6 cm Brett Dickson MD Work Phone: [facility] 12-02-2023 15:33-0400 Body mass index (BMI) [Ratio] 40.99 kg/m2 Brett Dickson MD Work Phone: [facility] 12-02-2023 15:33-0400 Body temperature 97.5 [degF] Brett Dickson MD Work Phone: [facility] 12-02-2023 15:33-0400 Body weight 115.2 kg Brett Dickson MD Work Phone: [facility] 12-02-2023 15:33-0400 Diastolic blood pressure 87 mm[Hg] Brett Dickson MD Work Phone: [facility] 12-02-2023 15:33-0400 Heart rate 114 /min Brett Dickson MD Work Phone: [facility] 12-02-2023 15:33-0400 SaO2% (BldA) [Mass fraction] 96 % Brett Dickson MD Work Phone: [facility] 12-02-2023 15:33-0400 Systolic blood pressure 142 mm[Hg] Brett Dickson MD Work Phone: [facility] 11-17-2023 08:59-0400 Body mass index (BMI) [Ratio] 40.39 kg/m2 Brett Dickson MD Work Phone: [facility] 11-17-2023 08:59-0400 Body weight 113.5 kg Brett Dickson MD Work Phone: [facility] 11-17-2023 08:59-0400 Diastolic blood pressure 91 mm[Hg] Brett Dickson MD Work Phone: [facility] 11-17-2023 08:59-0400 Heart rate 104 /min Brett Dickson MD Work Phone: [facility] 11-17-2023 08:59-0400 Systolic blood pressure 136 mm[Hg] Brett Dickson MD Work Phone: [facility] 11-11-2023 10:58-0400 Body height 171.5 cm Cody Hutchins APRNBijalMANAGER MISSION Work Phone: [facility] 11-11-2023 10:58-0400 Body mass index (BMI) [Ratio] 38.76 kg/m2 Cody Hutchins APRN-MANAGER [employer] Work Phone: [facility] 11-11-2023 10:58-0400 Body weight 113.94 kg Cody Hutchins APRN-MANAGER [employer] Work Phone: [facility] 11-11-2023 10:58-0400 Diastolic blood pressure 84 mm[Hg] Cody Hutchins APRN-MANAGER [employer] Work Phone: [facility] 11-11-2023 10:58-0400 Heart rate 88 /min Cody Hutchins APRN-MANAGER [employer] Work Phone: [facility] 11-11-2023 10:58-0400 Systolic blood pressure 124 mm[Hg] Cody Hutchins APRNBijalMANAGER MISSION Work Phone: [facility] 09-02-2023 11:36-0500 Body height 172.1 cm Michael Perkins MD Work Phone: [facility] 09-02-2023 11:36-0500 Body mass index (BMI) [Ratio] 38.6 kg/m2 Michael Perkins MD Work Phone: [facility] 09-02-2023 11:36-0500 Body weight 114.31 kg Michael Perkins MD Work Phone: [facility] 09-02-2023 11:36-0500 Diastolic blood pressure 90 mm[Hg] Michael Perkins MD Work Phone: [facility] 09-02-2023 11:36-0500 Heart rate 107 /min Michael Perkins MD Work Phone: [facility] 09-02-2023 11:36-0500 SaO2% (BldA) [Mass fraction] 94 % Michael Perkins MD Work Phone: [facility] [employer] 09-02-2023 11:36-0500 Systolic blood pressure 128 mm[Hg] Michael Perkins MD Work Phone: [facility] [employer] 08-05-2023 11:00-0500 Body height 167 cm Cody Hutchins COMPUTER SCIENTIST-MANAGER [employer] Work Phone: [facility] [employer] 08-05-2023 11:00-0500 Body mass index (BMI) [Ratio] 39.39 kg/m2 Cody Hutchins COMPUTER SCIENTIST-MANAGER [employer] Work Phone: [facility] [employer] 08-05-2023 11:00-0500 Body weight 109.86 kg Cody Hutchins COMPUTER SCIENTIST-MANAGER [employer] Work Phone: [facility] [employer] 08-05-2023 11:00-0500 Diastolic blood pressure 88 mm[Hg] Cody Hutchins COMPUTER SCIENTIST-MANAGER [employer] Work Phone: [facility] [employer] 08-05-2023 11:00-0500 Heart rate 88 /min Cody Hutchins COMPUTER SCIENTIST-MANAGER [employer] [facility] 08-05-2023 11:00-0500 Systolic blood pressure 130 mm[Hg] Cody Hutchins COMPUTER SCIENTIST-MANAGER [employer] [facility] 07-13-2023 16:15-0500 Body height 167.64 cm Beba Richey Other [employer] Other 07-13-2023 16:15-0500 Body mass index (BMI) [Ratio] 39.06 kg/m2 Beba Richey Other [employer] Other 07-13-2023 16:15-0500 Body temperature 97.3 [degF] Beba Richey Other [employer] Other 07-13-2023 16:15-0500 Body weight 109.77 kg Beba Richey Other [employer] Other 07-13-2023 16:15-0500 Diastolic blood pressure 80 mm[Hg] Beba Farahmond Other [employer] Other 07-13-2023 16:15-0500 Respiratory rate 18 /min Beba Farahmond Other [employer] Other 07-13-2023 16:15-0500 SaO2% (BldA) [Mass fraction] 98 % Beba Farahmond Other [employer] [facility] 07-13-2023 16:15-0500 Systolic blood pressure 120 mm[Hg] Beba Farahmond Other [employer] [facility] 06-24-2023 11:38-0500 Body height 167.6 cm Noemi Pham MD Work Phone: [facility] 06-24-2023 11:38-0500 Body weight 108.86 kg Noemi Pham MD Work Phone: [facility] 06-24-2023 11:38-0500 Diastolic blood pressure 77 mm[Hg] Noemi Pham MD Work Phone: [facility] 06-24-2023 11:38-0500 Heart rate 104 /min Noemi Pham MD Work Phone: [facility] 06-24-2023 11:38-0500 Respiratory rate 20 /min Noemi Pham MD Work Phone: [facility] 06-24-2023 11:38-0500 Systolic blood pressure 114 mm[Hg] Noemi Pham MD Work Phone: [facility] 08-11-2022 09:48-0500 Body weight 102.51 kg Noemi Pham MD Work Phone: [facility] 08-11-2022 09:48-0500 Diastolic blood pressure 73 mm[Hg] Noemi Pham MD Work Phone: [facility] 08-11-2022 09:48-0500 Heart rate 94 /min Noemi Pham MD Work Phone: [facility] 08-11-2022 09:48-0500 Systolic blood pressure 118 mm[Hg] Noemi Pham MD Work Phone: [facility] 02-07-2021 11:53-0400 Body mass index (BMI) [Ratio] 37.12 kg/m2 James Restrepo MD [facility] Work Phone: 02-07-2021 11:53-0400 Body temperature 98.4 [degF] James Restrepo MD [facility] Work Phone: 02-07-2021 11:53-0400 Body weight 104.33 kg James Restrepo MD [facility] Work Phone: 02-07-2021 11:53-0400 Diastolic blood pressure 92 mm[Hg] James Restrepo MD [facility] Work Phone: 02-07-2021 11:53-0400 Heart rate 108 /min James Restrepo MD [facility] Work Phone: 02-07-2021 11:53-0400 Respiratory rate 16 /min James Restrepo MD [facility] Work Phone: 02-07-2021 11:53-0400 SaO2% (BldA) [Mass fraction] 96 % James Restrepo MD [facility] Work Phone: 02-07-2021 11:53-0400 Systolic blood pressure 122 mm[Hg] James Restrepo MD [facility] Work Phone: 04-24-2019 15:30-0400 Pulse (Heart Rate) 104 /min [place] 04-24-2019 15:28-0400 BMI (Body Mass Index) 35.51 kg/m2 [place] 04-24-2019 15:28-0400 Body Temperature 98.4 [degF] [facility] 15:28-0400 Body weight 99.79 kg Gold Lyn [facility] , [place] 04-24-2019 15:28-0400 BP Diastolic 81 mm[Hg] Gold Lyn [facility] [place] 04-24-2019 15:28-0400 BP Systolic 116 mm[Hg] Gold Lyn [facility] [place] 04-24-2019 15:28-0400 Height 167.6 cm Gold Lyn [facility] [place] 04-24-2019 15:28-0400 Pulse Oximetry 95 % Gold Lyn [facility] [place] 04-24-2019 15:28-0400 Respiratory Rate 15 /min [facility] Encounters Encounter Date Encounter Type Care Provider Facility Start: 08-27-2024 End: 08-27-2024 Telephone encounter Noemi Pham MD Work Phone: Rheumatology Comment on above: Medication Problem Start: 08-24-2024 End: 08-24-2024 Office outpatient new 45 minutes Mayi Keys MD Work Phone: [facility] Comment on above: Urge incontinence of urine (Primary Dx); OAB (overactive bladder); Pelvic muscle atrophy Start: 08-24-2024 End: 08-24-2024 ambulatory MAYI KEYS [facility] Start: 08-24-2024 End: 08-24-2024 ambulatory [facility] Start: 08-24-2024 End: 08-24-2024 Office consultation new/estab patient 40 min Bienvenido Reza MD Work Phone: [facility] Comment on above: Primary osteoarthrit is of left knee (Primary Dx); Acute pain of left knee; Bipartite patella Start: 08-21-2024 End: 08-22-2024 Refill Noemi Pham MD Work Phone: Rheumatology Comment on above: Refill Request Start: 08-06-2024 End: 08-06-2024 Telephone encounter Valery Peña [facility] Start: 08-03-2024 End: 08-03-2024 ambulatory JONELLE PURI [facility] Start: 07-14-2024 End: 07-14-2024 Emergency department patient visit Livan Toussaint MD [facility] Emergency Department Comment on above: Accidental methotrex ate overdose, subsequent encounter (Primary Dx) Start: 07-13-2024 End: 07-13-2024 ambulatory NOEMI PHAM Facility:[facility] Start: 07-11-2024 End: 07-11-2024 ambulatory Noemi Pham MD Work Phone: Rheumatology Start: 07-11-2024 End: 07-11-2024 Follow-up encounter Noemi Pham MD Work Phone: Rheumatology Comment on above: Er follow up Start: 07-11-2024 End: 07-11-2024 Telephone encounter Noemi Pham MD Work Phone: Rheumatology Comment on above: Medication Question (Methotrexate) Start: 07-07-2024 End: 07-07-2024 ambulatory KERMIT BLANCO [facility] Start: 07-07-2024 End: 07-07-2024 Office outpatient visit 15 minutes Kermit Blanco COMPUTER SCIENTIST-MANAGER [employer]ION Work Phone: [facility] [place] Comment on above: Acute pain of left k nee (Primary Dx) Start: 06-29-2024 End: 06-29-2024 Telephone encounter Danita Crook DO Work Phone: Neurology Comment on above: Rx prior authorizati on Start: 06-26-2024 End: 06-29-2024 ambulatory Noemi Pham MD Work Phone: Rheumatology Start: 06-26-2024 End: 06-29-2024 Patient encounter procedure Emg 1 Neur Fhc Rej (Max Weight: 400) Work Phone: Neurology Comment on above: Emg results Start: 06-13-2024 End: 06-14-2024 ambulatory Noemi Pham MD Work Phone: Rheumatology Comment on above: Headaches Start: 06-13-2024 End: 06-14-2024 Patient encounter procedure Noemi Pham MD Work Phone: Rheumatology Comment on above: New medication Start: 06-04-2024 End: 06-06-2024 ambulatory Noemi Pham MD Work Phone: Rheumatology Start: 06-04-2024 End: 06-06-2024 Follow-up encounter Noemi Pham MD Work Phone: Rheumatology Comment on above: Prednisone shot foll ow up Start: 06-01-2024 End: 06-01-2024 Patient encounter procedure Noemi Pham MD Work Phone: Rheumatology Comment on above: Rheumatoid arthritis involving multiple sites, unspecified whether rheumatoid factor present (HCC) (Primary Dx); Myalgia; Joint stiffness Start: 06-01-2024 End: 06-01-2024 ambulatory NOEMI PHAM Facility[facility] Start: 06-01-2024 End: 06-01-2024 Telephone encounter Noemi Pham MD Work Phone: Rheumatology Comment on above: Insurance Authorizat ion ([employer]) Start: 06-01-2024 End: 06-01-2024 ambulatory TOY CARMONA [facility] Start: 05-16-2024 End: 05-22-2024 ambulatory Danita Crook DO Work Phone: Neurology Comment on above: Not taking any migra ine meds right now Start: 05-04-2024 End: 05-06-2024 ambulatory [facility] Start: 05-03-2024 End: 05-03-2024 ambulatory TOY Ammy [facility] Start: 04-30-2024 End: 05-02-2024 Telephone encounter Noemi Pham MD Work Phone: Rheumatology Start: 04-24-2024 ambulatory [facility] Start: 04-20-2024 End: 04-20-2024 ambulatory DALLAS MEREDITH [facility] Start: 04-04-2024 End: 04-05-2024 ambulatory Brett Dickson MD Work Phone: [facility] Comment on above: Vertigo new symptom Start: 03-27-2024 End: 03-27-2024 ambulatory [facility] Start: 03-26-2024 End: 03-26-2024 ambulatory [facility] Start: 03-24-2024 End: 03-25-2024 Emergency department patient visit RONALD REAGAN [facility] Start: 03-21-2024 End: 03-22-2024 Refill Danita Glenn Armaan DO Work Phone: Neurology Comment on above: Med Change Request Start: 03-19-2024 End: 03-21-2024 ambulatory Danita Glenn Armaan DO Work Phone: Neurology Comment on above: Topimax queation Start: 03-02-2024 End: 03-02-2024 ambulatory [facility] Start: 02-17-2024 End: 02-17-2024 ambulatory TOY [facility] Start: 02-14-2024 ambulatory Danita Glenn juan DO Work Phone: Neurology Comment on above: Bx results Start: 02-08-2024 Telephone encounter Liz mills MD Work Phone: Neurology Start: 02-07-2024 End: 02-07-2024 Emergency department patient visit TOY OBRIEN [facility] Start: 02-07-2024 End: 02-07-2024 ambulatory Skin Biopsy Work Phone: Neurology Comment on above: Arrived Start: 02-07-2024 End: 02-07-2024 Patient encounter procedure Skin Biopsy Work Phone: Neurology Start: 02-07-2024 End: 02-07-2024 ambulatory TOY OBRIEN Facility:[facility] Start: 02-01-2024 Orders Only Danita Elizabeth Naty juan DO Work Phone: Neurology Comment on above: Paresthesias (Primar y Dx) Start: 01-27-2024 End: 01-27-2024 ambulatory NOEMI PHAM Facility:[facility] Start: 01-27-2024 End: 01-27-2024 Patient encounter procedure Noemi Pham MD Work Phone: Rheumatology Comment on above: Rheumatoid arthritis involving multiple sites, unspecified whether rheumatoid factor present (HCC) (Primary Dx); Myalgia Start: 01-25-2024 End: 01-25-2024 ambulatory [facility] Start: 01-25-2024 End: 01-25-2024 ambulatory DANITA ELIZABETH ARMAAN Facility:[facility] Start: 01-25-2024 End: 01-25-2024 Patient encounter procedure Danita Crook DO Work Phone: Neurology Comment on above: Paresthesias (Primar y Dx); Abnormal involuntary movement Start: 01-25-2024 End: 01-25-2024 ambulatory BRETT DICKSON Facility:[facility] Start: 01-22-2024 Refill Brett Dickson MD Work Phone: [facility] Comment on above: Med Change Request Start: 01-18-2024 ambulatory [facility] Start: 01-09-2024 Refill Noemi Pham MD Work Phone: Rheumatology Comment on above: Refill Request Start: 12-02-2023 End: 12-02-2023 ambulatory BRETT DICKSON Facility:[facility] Start: 12-02-2023 End: 12-02-2023 Office outpatient visit 40 minutes Brett Dickson MD Work Phone: [facility] Comment on above: Abnormal involuntary movement (Primary Dx); Muscle spasms of both lower extremities; Muscle cramping; Vitamin B12 deficiency; Vitamin D deficiency; Obesity, Class III, BMI >= 40 Start: 11-29-2023 End: 11-29-2023 Telephone encounter Nish Chavez APRN.CNP Work Phone: [facility] Comment on above: Sleep Lab (PSG) Start: 11-24-2023 ambulatory Brett Dickson MD Work Phone: [facility] Comment on above: Hip xray Start: 11-23-2023 ambulatory Brett Dickson MD Work Phone: [facility] Comment on above: Left hip pain Start: 11-22-2023 Telephone encounter Brett Dickson MD Work Phone: [facility] Comment on above: office notes Start: 11-21-2023 Telephone encounter Noemi perez MD Work Phone: Rheumatology Comment on above: Results Start: 11-17-2023 End: 11-17-2023 Refill Cody Cuong COMPUTER SCIENTIST-MANAGER [employer] Work Phone: [facility] Start: 11-17-2023 Telephone encounter Brett Dickson MD Work Phone: [facility] Comment on above: Forms/letter (Letter for work) Start: 11-17-2023 End: 11-17-2023 ambulatory BRETT DICKSON Facility:[facility] Start: 11-17-2023 End: 11-17-2023 Office outpatient new 45 minutes Brett Dickson MD Work Phone: [facility] Comment on above: Myelopathy (HCC) (Pr imary Dx); Pain in joint, multiple sites; Rudolph obesity; Vitamin D deficiency; Screening for condition; Malaise and fatigue; Demyelinating disease of central nervous system (HCC) Start: 11-14-2023 ambulatory Noemi Pham MD Work Phone: Rheumatology Start: 11-14-2023 Patient encounter procedure Noemi Pham MD Work Phone: Rheumatology Comment on above: Labs Start: 11-14-2023 Telephone encounter Noemi perez MD Work Phone: [facility] Comment on above: Patient Question Start: 11-11-2023 End: 11-11-2023 ambulatory Liz Connolly [...] Work Phone: Neurology Start: 11-11-2023 End: 11-11-2023 Office outpatient visit 40 minutes [facility] Work Phone: [facility] Comment on above: Migraine without aur a and without status migrainosus, not intractable (Primary Dx); Intractable migraine equivalent; Cervicalgia; Fibromyalgia; Paresthesias; Trapezius muscle spasm; Periodic limb movement disorder; Restless legs syndrome Start: 11-11-2023 End: 11-11-2023 ambulatory [facility] Start: 11-03-2023 End: 11-03-2023 ambulatory [facility] Work Phone: Start: 11-03-2023 End: 11-03-2023 Patient encounter procedure [facility] Work Phone: Start: 11-03-2023 Telephone encounter Noemi perez MD Work Phone: Rheumatology Comment on above: Insurance Authorizat ion (Enbrel) Start: 10-14-2023 End: 10-14-2023 Office outpatient visit 25 minutes Dallas Meredith MD Work Phone: [facility] Comment on above: Retinoschisis, bullo us, bilateral (Primary Dx); High risk medication use; Hypertensive retinopathy of both eyes; Epiretinal membrane (ERM) of both eyes; PVD (posterior vitreous detachment), right eye; Vitreous syneresis of both eyes; Presbyopia; Hx of rheumatoid arthritis Start: 10-14-2023 End: 10-14-2023 ambulatory [facility] Ophth Imaging [facility] Comment on above: Retinoschisis, bullo us, bilateral Start: 10-13-2023 End: 10-13-2023 ambulatory [facility] Visual Field [facility] Comment on above: High risk medication use (Primary Dx) Start: 09-29-2023 ambulatory Noemi Pham MD Work Phone: Rheumatology Comment on above: Denied mri Start: 09-27-2023 End: 09-28-2023 Emergency department patient visit NASEEM LOUISE [facility] Start: 09-27-2023 End: 09-27-2023 Emergency department patient visit TOY Gimenez OBRIEN [facility] Start: 09-26-2023 ambulatory Noemi Pham MD Work [...] on above: Pain Start: 09-02-2023 End: 09-02-2023 Office outpatient visit 25 minutes Michael Perkins MD Work Phone: [facility] Comment on above: Primary hypertension (Primary Dx); Coronary artery vasospasm (CMS-HCC); Intermittent palpitations; Obstructive sleep apnea Start: 09-02-2023 End: 09-02-2023 ambulatory MICHAEL PERKINS [facility] Start: 09-01-2023 Telephone encounter [facility] Comment on above: Appointment Start: 08-05-2023 End: 08-05-2023 Office outpatient visit 25 minutes Cody Hutchins COMPUTER SCIENTIST-MANAGER [employer] Work Phone: [facility] Comment on above: Status migrainosus ( Primary Dx); Migraine without aura and without status migrainosus, not intractable; Cervicalgia; Fibromyalgia; Paresthesias; Trapezius muscle spasm; Vertigo Start: 08-03-2023 Telephone encounter Gloria [facility] Start: 07-21-2023 End: 07-21-2023 ambulatory Betty Moreau Other [facility] Other Start: 07-21-2023 Telephone encounter Betty Moreau [facility] Comment on above: Headache Start: 07-13-2023 End: 07-13-2023 ambulatory Beab Richey Other [facility] Other Start: 07-13-2023 Office outpatient vi sit 15 minutes Beba Richey [facility] Start: 06-24-2023 End: 06-24-2023 Subsequent hospital visit by physician [facility] Work Phone: [facility] Comment on above: Pain in joint, multi ple sites [M25.50] Start: 06-24-2023 End: 06-24-2023 Patient encounter procedure Noemi Pham MD Work Phone: Rheumatology Comment on above: Pain in joint, multi ple sites (Primary Dx); Trochanteric bursitis of both hips Start: 05-27-2023 End: 05-27-2023 ambulatory Jud Monson Other [facility] Other Start: 05-27-2023 Office outpatient vi sit 25 minutes Jud Monson [facility] Start: 05-12-2023 Telephone encounter Noemi perez MD Work Phone: Rheumatology Comment on above: Medication Problem Start: 03-09-2023 Telephone encounter Noemi perez MD Work Phone: Rheumatology Start: 01-28-2023 Telephone encounter Noemi perez MD Work Phone: Rheumatology Comment on above: Orders Start: 01-26-2023 ambulatory Noemi Pham MD Work Phone: Rheumatology Comment on above: results of blood wor k Start: 01-26-2023 E-mail encounter fro m caregiver Noemi Pham MD Work Phone: MATILDA Carmichael [facility] Start: 01-11-2023 Refill Noemi Pham MD Work Phone: Rheumatology Comment on above: Refill Request Start: 12-24-2022 End: 12-24-2022 ambulatory Emg 1000) Work Phone: Neurology Start: 12-24-2022 End: 12-24-2022 Patient encounter procedure Emg 3 Neur Main (Max Weight: 1000) Work Phone: [facility] Start: 12-01-2022 Telephone encounter Noemi perez MD [...] on above: Refill Request Start: 08-11-2022 End: 08-11-2022 Patient encounter procedure Noemi Pham MD Work Phone: Rheumatology Comment on above: Rheumatoid arthritis involving multiple sites, unspecified whether rheumatoid factor present (HCC) (Primary Dx) Start: 07-30-2022 End: 07-30-2022 ambulatory Jud Monson Facility:[facility] Start: 07-30-2022 End: 07-30-2022 ambulatory GROUP HOME COUNSELOR-Denis Monson Work Phone: [facility] Work Phone: Start: 07-30-2022 End: 07-30-2022 Patient encounter procedure GROUP HOME COUNSELOR-C Jud Salcedoarney Work Phone: [facility] Start: 06-04-2022 Telephone encounter Noemi perez MD Work Phone: Rheumatology Comment on above: Insurance Authorizat ion Start: 06-02-2022 ambulatory Noemi Pham MD Work Phone: Rheumatology Comment on above: Ankle pain Start: 05-29-2022 Refill Noemi Pham MD Work Phone: Rheumatology Comment on above: Refill Request Start: 05-17-2022 Telephone encounter Noemi perez MD Work Phone: [address] [place] [address] Comment on above: Patient Question Start: 12-29-2021 Telephone encounter Noemi perez MD Work Phone: Rheumatology Comment on above: Patient Request Start: 10-27-2021 ambulatory Noemi Pham MD Work Phone: Rheumatology Comment on above: Handicap plaquered Start: 02-07-2021 End: 02-07-2021 Emergency department patient visit James CAMAR[facility] Comment on above: Neuropathic pain (Pr imary Dx) Start: 05-20-2020 End: 05-20-2020 Subsequent hospital visit by physician [facility] Comment on above: Canceled (Patient no show) Start: 05-16-2020 End: 05-16-2020 Subsequent hospital visit by physician Glory [facility] Comment on above: Canceled (Patient) Start: 05-14-2020 End: 05-14-2020 Subsequent hospital visit by physician Sander Jauregui [facility] Start: 04-24-2019 End: 04-24-2019 Emergency department patient visit Gold Graves Work Phone: [facility] Comment on above: Sprain of left foot, initial encounter (Primary Dx) Procedures Date Procedure Procedure Detail Performing Clinician Start: 08-24-2024 MEASURE POST VOID RESIDUAL Mayi Keys MD Work Phone: Start: 08-24-2024 Urnls dip stick/tablet rgnt non-auto w/o micrscp Mayi Keys MD Work Phone: Start: 07-14-2024 BASIC METABOLIC PANEL W/ REFLEX TO MG FOR LOW K Balwinder Chi MD Work Phone: Start: 07-14-2024 Hepatic function panel Balwinder jarrell MD Work Phone: Start: 07-14-2024 Prothrombin time Balwinder Snider Work Phone: Start: 06-26-2024 Nerve conduction studies 5-6 studies Noemi Pham MD Work Phone: Start: 01-25-2024 Follow-up visit Follow-up LUTHER ZAMORA Start: 11-11-2023 Adult depression screening assessment Cody Cuong COMPUTER SCIENTIST-MANAGER [employer] Work Phone: Start: 10-14-2023 End: 10-14-2023 Computerized ophthalmic imaging retina Dallas Meredith MD Work Phone: Start: 09-02-2023 Ecg routine ecg w/least 12 lds w/i&r Michael Perkins MD Work Phone: Start: 06-24-2023 Radex spine lumbosacral 2/3 views [...] Start: 07-30-2022 Plain X-ray of right elbow GROUP HOME COUNSELOR-C Jud Monson Work Phone: Start: 07-24-2021 Lipid 1996 panel - Serum or Plasma Noemi Pham MD Work Phone: Start: 06-24-2021 History of appendectomy Status post appendectomy, follow-up exam Naz Vasques Start: 06-24-2021 History of cholecystectomy Status post cholecystectomy Naz Vasques Start: 03-19-2021 Adult depression screening assessment Noemi Pham MD Work Phone: Start: 02-07-2021 Radex spine cervical 2 or 3 views James Restrepo MD Start: 09-26-2019 H/O: hysterectomy History of hysterectomy Naz Vasques Start: 04-24-2019 Radex foot complete minimum 3 views Jud Osuna Work Phone: Plan of Treatment Date Care Activity Detail Author Start: 12-17-2032 Screening for malignant neoplasm of colon [facility] Start: 06-01-2027 Diabetes Screening Diabetes Screening [facility] Start: 03-24-2027 Diabetes Screening Diabetes Screening [facility] Start: 09-26-2026 Diabetes Screening Diabetes Screening [facility] Start: 07-24-2026 Lipid 1996 panel - Serum or Plasma Lipid Screening [facility] Start: 07-24-2026 Lipid panel Lipid Screening [facility] Start: 07-24-2026 LIPID SCREEN LIPID SCREEN [facility] Start: 06-24-2026 Diabetes Screening Diabetes Screening [facility] Start: 11-08-2025 DIABETES SCREEN DIABETES SCREEN [facility] Start: 11-08-2025 Diabetes Screening Diabetes Screening [facility] Start: 08-24-2025 Adult BMI Screening Adult BMI Screening [facility] Start: 08-24-2025 Tobacco Screening Tobacco Screening [facility] Start: 08-11-2025 DIABETES SCREEN DIABETES SCREEN [facility] Start: 07-14-2025 GFR test (Diabetes, CKD 3-4, OR last GFR 15-59) GFR test (Diabetes, CKD 3-4, OR last GFR 15-59) [facility] Start: 07-07-2025 Adult BMI Screening Adult BMI Screening [facility] Start: 07-07-2025 Tobacco Screening Tobacco Screening [facility] Start: 11-16-2024 End: 11-16-2024 Patient encounter procedure 11/16/2024 8:45 AM EDT Office Visit [facility] [address] [place] [phone] Mayi Keys MD [address] [place] [address] [facility] Start: 11-10-2024 Adult BMI Screening Adult BMI Screening [facility] Start: 11-10-2024 Depression Screening Depression Screening [facility] Start: 11-10-2024 Tobacco Screening Tobacco Screening [facility] Start: 10-19-2024 End: 10-19-2024 Patient encounter procedure 10/19/2024 9:20 AM EDT Office Visit [facility] [address] [place] [phone] Dallas Meredith MD [address] [place] [address] [facility] Start: 10-13-2024 Tobacco Screening Tobacco Screening [facility] Start: 10-12-2024 End: 10-12-2024 Patient encounter procedure 10/12/2024 9:10 AM EDT Office Visit [facility] [address] [place] [address] Bienvenido Reza MD [address] [place] [address] [facility] Start: 10-05-2024 End: 10-05-2024 Patient encounter procedure 10/05/2024 11:00 AM EDT Office Visit Rheumatology [address] [place] [address] Noemi Pham MD [address] [place], [place] [id number] 4 month RA follow up Rheumatology Comment on above: 4 month RA follow up Start: 09-07-2024 End: 09-07-2024 Follow-up encounter 09/07/2024 11:00 AM EST [facility] [address] [place] [address] Danita Bob DO [address] [place], [place] [id number] FOLLOW UP [facility] Comment on above: FOLLOW UP [facility] Start: 09-02-2024 Adult BMI Screening Adult BMI Screening [facility] Start: 09-02-2024 Tobacco Screening Tobacco Screening [facility] Start: 08-24-2024 End: 08-24-2024 Patient encounter procedure [facility] Start: 08-15-2024 End: 08-15-2024 Patient encounter procedure 08/15/2024 11:30 AM EST Office Visit [facility] [address] [place] [phone] Mayi Keys MD [address] [facility] [address] [place] [address] [facility] Start: 08-05-2024 Adult BMI Screening [facility] Start: 08-05-2024 Tobacco Screening [facility] Start: 06-29-2024 End: 06-29-2024 Follow-up encounter 06/29/2024 4:00 PM EST [facility] [address] [place] [address] Danita Bob DO [address] [place] [address] FOLLOW UP [facility] Neurology Comment on above: FOLLOW UP MIGRAINES Start: 06-29-2024 End: 09-28-2024 POLYMYOSITIS AND DERMATOMYOSITIS PANEL POLYMYOSITIS AND DERMATOMYOSITIS PANEL Lab Routine Myalgia Expected: 06/29/2024, Expires: 09/28/2024 [facility] Work Phone: Comment on above: Expected: 06/29/2024, Expires: Start: 06-01-2024 End: 06-01-2024 Patient encounter procedure 06/01/2024 3:20 PM EST Office Visit Rheumatology [address] [place], [place] [id number] Noemi Pham MD [address] [place] [address] Return in about 4 months (around 05/29/2024) for RA 20m. Rheumatology Comment on above: Return in about 4 months (around 05/29/20) for RA 20m. Start: 06-01-2024 End: 08-31-2024 Aldolase [Enzymatic activity/volume] in Serum or Plasma [facility] Work Phone: Comment on above: Expected: 06/01/2024, Expires: Start: 06-01-2024 End: 08-31-2024 Erythrocyte sedimentation rate [facility] Comment on above: Expected: 06/01/2024, Expires: Start: 05-13-2024 Glaucoma screening Diabetic Ophthalmology Exam [facility] Start: 05-13-2024 Tobacco Screening Tobacco Screening [facility] Start: 05-12-2024 Adult BMI Screening Adult BMI Screening [facility] Start: 05-11-2024 End: 05-11-2024 ambulatory 05/11/2024 9:30 AM EDT [facility] [address] [place] [address] Danita Bob DO [address] [place], [place] [id number] f/u 3 mos Neurology Comment on above: f/u 3 mos Start: 04-20-2024 End: 04-20-2024 Patient encounter procedure 04/20/2024 9:30 AM EDT Office Visit [facility] [address] [place] [phone] Dallas Meredith MD [address] [place], [place] [phone] [facility] Start: 03-25-2024 COVID-19 Vaccine ( season) COVID-19 Vaccine ( season) [facility] Start: 03-25-2024 COVID-19 Vaccine ( season) COVID-19 Vaccine ( season) [facility] Start: 03-25-2024 Influenza vaccination [facility] Start: 02-23-2024 Influenza vaccination Flu vaccine (#1) [facility] Start: 02-10-2024 End: 02-10-2024 Patient encounter procedure 02/10/2024 10:30 AM EDT Office Visit [facility] [address] [place] [address] Cody Hutchins APRN-MANAGER [employer] [address] [place] [address] [facility] Start: 01-27-2024 End: 01-27-2024 Patient encounter procedure 01/27/2024 9:40 AM EDT Office Visit [facility] [address] [place], [place] [phone] Noemi Pham MD [address] [place] [address] Arthritis Return in about 6 months (around 12/24/2023) for RA . Rheumatology Comment on above: Arthritis Return in about 6 months (arou nd 12/24/2023) for RA . Start: 01-25-2024 End: 04-25-2024 VITAMIN B1 (THIAMINE), WHOLE BLOOD [facility] Work Phone: Comment on above: Expected: 01/25/2024, Expires: Start: 01-25-2024 End: 01-25-2024 Patient encounter procedure 01/25/2024 8:00 AM EDT Office Visit Neurology [address] [place] [address] Danita Bob DO [address] [place] [address] [facility] Comment on above: [facility] Start: 12-18-2023 Colonoscopy COLONOSCOPY [facility] Start: 12-18-2023 COLORECTAL CANCER SCREENING COLORECTAL CANCER SCREENING [facility] Start: 12-18-2023 Screening for malignant neoplasm of colon [facility] Start: 12-02-2023 End: 12-02-2023 Patient encounter procedure 12/02/2023 4:00 PM EDT Office Visit [facility] [address] [place] [address] Brett Dickson MD [address] [place] [address] [facility] Comment on above: FOLLOW UP Start: 11-17-2023 End: 02-16-2024 INSTRUCTIONAL LEADER DEMYELINATING DISEASE EVALUATION, SERUM [facility] Comment on above: Expected: 11/17/2023, Expires: Start: 11-17-2023 End: 02-16-2024 COPPER BLOOD [facility] Comment on above: Expected: 11/17/2023, Expires: Start: 11-17-2023 End: 02-16-2024 DNA double strand Ab [Units/volume] in Serum by Immunoassay [facility] Comment on above: Expected: 11/17/2023, Expires: Start: 11-17-2023 End: 02-16-2024 Extractable nuclear Ab panel - Serum [facility] Work Phone: Comment on above: Expected: 11/17/2023, Expires: Start: 11-17-2023 End: 11-17-2023 Patient encounter procedure 11/17/2023 9:30 AM EDT Office Visit [facility] [address] [place], [place] [phone] Brett Dickson MD [address] [place] [address] [facility] Comment on above: [place] Start: 11-14-2023 End: 02-13-2024 Thyrotropin [Units/volume] in Serum or Plasma THYROID STIMULATING HORMONE Lab Routine Hair loss Expected: 11/14/2023, Expires: 02/13/2024 [facility] Work Phone: Comment on above: Expected: 11/14/2023, Expires: Start: 11-14-2023 End: 02-13-2024 Thyroxine (T4) free [Mass/volume] in Serum or Plasma T4 FREE/FREE THYROXINE Lab Routine Hair loss Expected: 11/14/2023, Expires: 02/13/2024 [facility] Comment on above: Expected: 11/14/2023, Expires: Start: 11-14-2023 End: 02-13-2024 Triiodothyronine (T3) [Mass/volume] in Serum or Plasma T3 Lab Routine Hair loss Expected: 11/14/2023, Expires: 02/13/2024 [facility] Comment on above: Expected: 11/14/2023, Expires: Start: 11-11-2023 End: 11-11-2023 Patient encounter procedure 11/11/2023 11:00 AM EDT [facility] [address] [place] [address] Cody Hutchins, COMPUTER SCIENTIST-MANAGER [employer] [address] [place] [address] [facility] Start: 10-28-2023 End: 10-28-2023 Patient encounter procedure 10/28/2023 9:00 AM EDT Office Visit [facility] [address] [place] [address] Cody Hutchins, COMPUTER SCIENTIST-MANAGER [employer] [address] [place] [address] [facility] Start: 10-14-2023 End: 10-14-2023 Patient encounter procedure 10/14/2023 1:10 PM EDT Office Visit [facility] [address] [place] [address] Dallas Meredith MD [address] [place] [address] [facility] Start: 09-30-2023 End: 09-30-2023 Patient encounter procedure [facility] Start: 09-30-2023 End: 09-30-2023 ambulatory 09/30/2023 9:30 AM EST Ophthalmology Imaging [facility] [address] [place] [address] [facility] Start: 09-16-2023 End: 09-16-2023 Patient encounter procedure 09/16/2023 10:30 AM EST Office Visit [facility] [address] [place] [address] Dallas Meredith MD [address] [place] [address] [facility] Start: 09-06-2023 Depression Screening Depression Screening [facility] Start: 09-02-2023 End: 09-02-2023 Patient encounter procedure [facility] Start: 08-05-2023 End: 08-05-2023 Patient encounter procedure 08/05/2023 11:30 AM EST Office Visit [facility] [address] [place] [address] Cody Hutchins, COMPUTER SCIENTIST-MANAGER [employer] [address] [place] [address] [facility] Start: 07-25-2023 Behavioral Health Screening Behavioral Health Screening [facility] Start: 07-25-2023 Depression Assessment Depression Assessment [facility] Start: 05-16-2023 DIABETES SCREEN DIABETES SCREEN [facility] Start: 03-25-2023 Covid-19 Vaccine ( season) Covid-19 Vaccine () [facility] Start: 03-25-2023 Influenza vaccination [facility] Start: 01-26-2023 End: 03-28-2023 Extractable nuclear Ab panel - Serum ANTI LEVY ID Lab Routine Rheumatoid arthritis involving multiple sites, unspecified whether rheumatoid factor present (HCC) Expected: 01/26/2023, Expires: 03/28/2023 [facility] Work Phone: Comment on above: Expected: 01/26/2023, Expires: 3 Start: 10-27-2022 End: 12-27-2022 Aldolase [Enzymatic activity/volume] in Serum or Plasma ALDOLASE BLD Lab Routine Myalgia Expected: 10/27/2022, Expires: 12/27/2022 [facility] Work Phone: Comment on above: Expected: 10/27/2022, Expires: 3 Start: 10-27-2022 End: 12-27-2022 Creatine kinase [Enzymatic activity/volume] in Serum or Plasma CK CREATINE KINASE Lab Routine Myalgia Expected: 10/27/2022, Expires: 12/27/2022 [facility] Work Phone: Comment on above: Expected: 10/27/2022, Expires: 3 Start: 08-11-2022 End: 10-11-2022 Aldolase [Enzymatic activity/volume] in Serum or Plasma [facility] Work Phone: Comment on above: Expected: 08/11/2022, Expires: 3 Start: 07-25-2022 DEPRESSION ASSESSMENT DEPRESSION ASSESSMENT [facility] Start: 03-25-2022 Influenza vaccination INFLUENZA (#1) [facility] Start: 03-19-2022 Adult depression screening assessment DEPRESSION SCREENING [facility] Start: 01-27-2022 DTaP,Tdap and Td Vaccines (2 - Td or Tdap) DTaP,Tdap and Td Vaccines (2 - Td or Tdap) [facility] Start: 01-27-2022 DTaP/Tdap/Td vaccine (2 - Td or Tdap) DTaP/Tdap/Td vaccine (2 - Td or Tdap) [facility] Start: 01-27-2022 DTaP/Tdap/Td vaccine (2 - Td) DTaP/Tdap/Td vaccine (2 - Td) [place] Start: 01-27-2022 Urine microalbumin profile DTaP,Tdap,Td Vaccine (2 - Td or Tdap) [facility] Start: 07-25-2021 DEPRESSION ASSESSMENT DEPRESSION ASSESSMENT [facility] Start: 03-25-2021 Influenza vaccination Flu vaccine (#1) [facility] Work Phone: Start: 01-12-2021 COVID-19 VACCINE (3 - Booster for Pfizer series) COVID-19 VACCINE (3 - Booster for Pfizer series) [facility] Start: 01-12-2021 COVID-19 VACCINE (3 - Pfizer series) COVID-19 VACCINE (3 - Pfizer series) [facility] Start: 12-15-2020 COVID-19 VACCINE (3 - Pfizer risk 4-dose series) COVID-19 VACCINE (3 - Pfizer risk 4-dose series) [facility] Start: 12-15-2020 COVID-19 VACCINE (3 - Pfizer risk series) COVID-19 VACCINE (3 - Pfizer risk series) [facility] Start: 2020 COLOGUARD (FIT-DNA) COLOGUARD (FIT-DNA) [facility] Start: 2020 Colonoscopy COLONOSCOPY [facility] Start: 2020 COLORECTAL CANCER SCREENING COLORECTAL CANCER SCREENING [facility] Start: [address] COLONOGRAPHY [facility] Start: 2020 FECAL OCCULT BLOOD FECAL OCCULT BLOOD [facility] Start: 2020 Screening for malignant neoplasm of colon [facility] Start: 2020 SIGMOIDOSCOPY SIGMOIDOSCOPY [facility] Start: 05-29-2020 End: 05-29-2020 Appointment 05/29/2020 Appointment Physical Therapy Jeremie Barnett PTA [facility] Start: 05-28-2020 End: 05-28-2020 Appointment 05/28/2020 Appointment Physical Therapy Jeremie Barnett PTA [facility] Start: 05-23-2020 End: 05-23-2020 Appointment 05/23/2020 Appointment Physical Therapy Glory Ortiz STEERSMAN [facility] Start: 05-20-2020 End: 05-20-2020 Appointment [facility] Start: 05-16-2020 End: 05-16-2020 Appointment 05/16/2020 Appointment Physical Therapy Glory Ortiz [facility]ERS[facility] Start: 03-25-2020 Influenza vaccination Flu vaccine (#1) [place] Start: 03-25-2019 Influenza vaccination Flu vaccine (#1) [place] Start: 2015 Diabetes screen Diabetes screen [facility] [employer] Phone: Start: 2015 Lipid panel [facility] [email or web address] Start: 2015 Lipid screen Lipid screen [facility] [email or web address] Start: 2015 Mammography [facility] Start: 2015 Screening for malignant neoplasm of breast [facility] Start: 2005 HPV TESTING HPV TESTING [facility] Start: 2005 Screening for malignant neoplasm of cervix HPV Testing [facility] Start: 1996 Cervical cancer screen Cervical cancer screen [place], [place] Start: 1996 PAP TESTING PAP TESTING [facility] Start: 1996 Screening for malignant neoplasm of cervix [facility] Start: 1994 Hepatitis B vaccine (1 of 3 - 19+ 3-dose series) Hepatitis B vaccine (1 of 3 - 19+ 3-dose series) [facility] Start: 1994 Pneumococcal vaccination Pneumococcal Vaccine (1 of 2 - PCV) [facility] Start: 1994 SHINGRIX VACCINE (1 of 2) SHINGRIX VACCINE (1 of 2) [facility] Start: 1994 Urine microalbumin profile [facility] Start: 1993 Adult BMI Follow Up Plan Adult BMI Follow Up Plan [facility] [email or web address] [facility] Start: 1993 Anxiety Screening Anxiety Screening [facility] Start: 1993 Depression Screening Depression Screening [facility] Start: 1993 Diabetic foot examination Diabetic Foot Exam [facility] Start: 1993 Hepatitis C screening Hepatitis C screen [facility] Start: 1993 HIV SCREENING HIV SCREENING [facility] Start: 1993 HIV screening HIV Screening [facility] Start: 1990 HIV screen HIV screen [place] Start: 1990 HIV screening HIV screen [facility] Start: 1987 Depression Screen Depression Screen [facility] Start: 1986 Screening for malignant neoplasm of cervix Cervical Cancer Screening [facility] Start: 1981 PNEUMOCOCCAL (1 - PCV) PNEUMOCOCCAL (1 - PCV) [facility] Start: 1981 [facility] Start: 1975 Hepatitis C screening Hepatitis C screen [facility] Work Phone: End: 11-24-2023 EMG(NEURO/NI) EMG(NEURO/NI) EMG Routine Fatigue, unspecified type Elevated aldolase level Generalized weakness 1 Occurrences starting 11/23/2022 until 11/24/2023 [facility] Work Phone: Comment on above: 1 Occurrences starting 11/23/2022 until 11/24/2023 End: 07-11-2025 Hepatic function 2000 panel - Serum or Plasma HEPATIC FUNCTION PNL Lab Routine Seropositive rheumatoid arthritis of multiple sites (HCC) Every 2 months for 12 Occurrences starting 07/11/2024 until 07/11/2025 [facility] Work Phone: Comment on above: Every 2 months for 12 Occurrences starti ng 07/11/2024 until 07/11/2025 End: 10-12-2024 Carter Visual Field - OU - Both Eyes [facility] - OU - Both Eyes Ophthalmology Routine High risk medication use 1 Occurrences starting 10/13/2023 until 10/12/2024 [facility] Work Phone: Comment on above: 1 Occurrences starting 10/13/2023 until 10/12/2024 Carter Visual Fiel d - OU - Both Eyes [facility] - OU - Both Eyes Ophthalmology Routine High risk medication use 10/13/2023 1:11 PM EDT [employer] End: 12-16-2024 MR Brain WO and W contrast IV MRI BRAIN WO/W IVCON Radiology Routine Demyelinating disease of central nervous system (HCC) 1 Occurrences starting 11/17/2023 until 12/16/2024 [facility] Comment on above: 1 Occurrences starting 11/17/2023 until 12/16/2024 End: 12-16-2024 MR Cervical spine WO and W contrast IV MRI CERVICAL SPINE WO/W IVCON Radiology Routine Demyelinating disease of central nervous system (HCC) 1 Occurrences starting 11/17/2023 until 12/16/2024 [facility] Comment on above: 1 Occurrences starting 11/17/2023 until 12/16/2024 End: 10-20-2024 MR Lumbar spine WO contrast MRI LUMBAR SPINE WO IVCON Radiology Routine Spinal stenosis of lumbar region with neurogenic claudication 1 Occurrences starting 09/21/2023 until 10/20/2024 [facility] Work Phone: Comment on above: 1 Occurrences starting 09/21/2023 until 10/20/2024 End: 12-16-2024 MR Thoracic spine WO and W contrast IV MRI THORACIC SPINE WO/W IVCON Radiology Routine Demyelinating disease of central nervous system (HCC) 1 Occurrences starting 11/17/2023 until 12/16/2024 [facility] Comment on above: 1 Occurrences starting 11/17/2023 until 12/16/2024 SKIN BIOPSY FOR NEUROPATHY/CNL SKIN BIOPSY FOR NEUROPATHY/CNL Procedures Routine Paresthesias Ordered: 02/01/2024 [facility] Work Phone: Comment on above: Ordered: 02/01/2024 End: 12-24-2024 XR Hip - left AP and Lateral XR HIP 2V AP/LAT LEFT (AK,FL,ME,UN) Radiology Routine Pain in left hip Pain in joint, multiple sites 1 Occurrences starting 11/25/2023 until 12/24/2024 [facility] Work Phone: Comment on above: 1 Occurrences starting 11/25/2023 until 12/24/2024 End: 10-18-2024 XR Lumbar spine 3 Views XR LUMBAR GENERAL 3V AP/LAT/L5-S1 Radiology Routine Chronic bilateral low back pain without sciatica 1 Occurrences starting 09/19/2023 until 10/18/2024 [facility] Work Phone: Comment on above: 1 Occurrences starting 09/19/2023 until 10/18/2024 [facility] Immunizations Immunization Date Immunization Notes Care Provider Julio carlin 04-23-2021 influenza virus vacc ine, unspecified formulation Noemi Pham MD Work Phone: [facility] Payers Date Payer Category Payer Private Health Insurance [id number] 2023 Unknown [id number] 2022 Self-pay 2021 Unknown MMO MMO [employer] [id number] 2021-Present [phone] [address] [place] [address] PPO [id number] 2021 Managed Care Other (unspecified) [id number] .[id number] 2021 Unknown [id number] 2.16.840.1.635583.19 2021 Commercial Managed C are - PPO [employer] [id number] .[id number] 2021 Unknown [id number]. 1.13.159.2 .7.3.428139.315 2021 Medicare [id number] 2020 Unknown [facility] A DVANTAGE [facility] ADVANTAGE [id number] 2020-Present [phone] [address] [place] [address] [id number] .[id number] 2020 Unknown [id number] [id number] [facility] xxxxxxxxxxxx 2015-Present [phone] [address] [place] [address] xxxxxxxxxxxx [id number] .7.3.855876.315 2003 Medicaid [place] [employer] [place] [employer] MED[place] [id number] 2003-Present [phone] [address] [place] [address] Medicaid [id number] [id number] .7.3.326683.315 2003 Medicaid [id number]. 1.13.159.2 .7.3.042780.315 2003 Unknown [id number] 1.2.840.124133.1.13.239.2 .7.3.846021.315 1975 Unknown [id number] 2.16.840.1.747476.3.579.2 .1286 1975 Unknown [id number] 2.16.840.1.658641.3.579.2 .1286 1975 Unknown [id number] 2.16.840.1.890064.3.579.2 .182 1975 Unknown [id number] 2.16.840.1.899131.3.579.2 .1286 1975 Unknown [id number] 2.16.840.1.392803.3.579.2 .1286 1975 Unknown [id number] 2.16.840.1.757175.3.579.2 .1286 1975 Unknown [id number] 2.16.840.1.103642.3.579.2 .176 1975 Unknown [id number] 2.16.840.1.378066.3.579.2 .1286 1975 Unknown [id number] 2.16.840.1.706203.3.579.2 .175 1975 Unknown [id number] 2.16.840.1.324022.3.579.2 .175 1975 Unknown [id number] 2.16.840.1.130151.3.579.2 .1286 1975 Unknown [id number] 2.16.840.1.023178.3.579.2 .1285 1975 Unknown [id number] 2.16.840.1.102607.3.579.2 .1285 1975 Unknown [id number] 2.16.840.1.330843.3.579.2 .1285 1975 Unknown [id number] 2.16.840.1.709993.3.579.2 .1285 1975 Unknown [id number] 2.16.840.1.330173.3.579.2 .1285 1975 Unknown [id number] 2.16.840.1.620591.3.579.2 .1285 1975 Unknown [id number] 2.16.840.1.077670.3.579.2 .1285 1975 Unknown [id number] 2.16.840.1.907520.3.579.2 .1285 1975 Unknown [id number] 2.16.840.1.703398.3.579.2 .1285 1975 Unknown [id number] 2.16.840.1.607577.3.579.2 .1285 1975 Unknown [id number] 2.16.840.1.790193.3.579.2 .1285 1975 Unknown [id number] 2.16.840.1.640558.3.579.2 .1285 1975 Unknown [id number] 2.16.840.1.529912.3.579.2 .1285 1975 Unknown [id number] 2.16.840.1.731801.3.579.2 .1285 1975 Unknown [id number] 2.16.840.1.498007.3.579.2 .1285 1975 Unknown [id number] 2.16.840.1.466354.3.579.2 .1285 1975 Unknown [id number] 2.16.840.1.951069.3.579.2 .1286 1975 Unknown [id number] 2.16.840.1.175329.3.579.2 .1286 1975 Unknown [id number] 2.16.840.1.769832.3.579.2 .1286 1975 Unknown [id number] 2.16.840.1.669599.3.579.2 .1286 Unknown [id number] 2.16.840.1.019288.3.579.2 .531 Unknown Regular Insurance [id number] Social History Date Type Detail Facility Start: 06-18-2018 End: 10-14-2021 Tobacco smoking status NHIS Never smoker [facility] Start: 06-18-2018 End: 10-14-2021 Tobacco use and exposure Never used [place] Start: 06-18-2018 End: 11-11-2023 Alcohol intake Current drinker of alcohol (finding) [place] Start: 08-28-2017 Alcohol Comment social [place], [place] Start: 1975 Sex Assigned At Not on file [place] Start: 06-18-2018 End: 08-05-2020 Alcohol intake Yes [facility] Start: 12-14-2022 End: 12-24-2022 Exposure to SARS-CoV-2 (event) Not sure [facility] Start: 10-26-2018 History SDOH Alcohol Comment Occasional [facility] Start: 1975 Sex Assigned At Female [facility] Start: 08-05-2020 End: 01-14-2023 History of Social function [facility] National Score (1-10 0), lower number is lower risk 76 [facility] Start: 08-14-2019 Alcohol Comment occasional [facility] Start: 09-06-2022 Gender identity Identifies as female gender (finding) [facility] Start: 09-06-2022 Sexual orientation Heterosexual (fin ding) [facility] Start: 02-27-2015 [facility] How often to you hav e a drink containing alcohol? Monthly or less [facility] How many standard drinks containing alcohol do you have on a typical day? 1 or 2 [facility] How often do you hav e 6 or more drinks on 1 occasion? Never [facility] Clinical Notes 10-28-2021 to 08-27-2024 Addendum Note - Noemi Pham MD - 08/27/2024 3:18 PM ESTTelephone Encounter - Noemi Pham MD - 08/27/2024 3:18 PM ESTAddendum Note - Noemi Pham MD - 08/27/2024 3:18 PM ESTAttachments Note Date & Type Note Facility 08-27-2024 Note Addended by: NOEMI PHAM on: 08/27/2024 03:18 PM Modules accepted: Orders [facility] 08-27-2024 Telephone encounter Note The following approved medication requests have been transmitted electronically. Requested Prescriptions Signed Prescriptions Disp Refills sertraline (ZOLOFT) 100 mg tablet 30 tablet 5 Sig: Take 1 tablet by mouth once daily. Authorizing Provider: NOEMI PHAM MD [facility] 08-27-2024 Miscellaneous Notes Addended by: NOEMI PHAM on: 08/27/2024 03:18 PM Modules accepted: Orders The following approved medication requests have been transmitted electronically. Requested Prescriptions Signed Prescriptions Disp Refills sertraline (ZOLOFT) 100 mg tablet 30 tablet 5 Sig: Take 1 tablet by mouth once daily. Authorizing Provider: NOEMI PHAM MD Addended by: BRIANDA PALOMARES on: 08/27/2024 02:16 PM Modules accepted: Orders Images from the original note were not included. Pended medication needs to go to different pharmacy [facility]. Most recent Rheumatology visit: 06/01/2024 (with Noemi Pham) Last Bone Density on file: None on file Rheumatology Care Team: None on file Recent Office Visits - This Specialty 06/01/2024 Rheumatoid arthritis involving multiple sites, unspecified whether rheumatoid factor present (HCC) Rheumatology Noemi Pham MD 01/27/2024 Rheumatoid arthritis involving multiple sites, unspecified whether rheumatoid factor present (HCC) Rheumatology Noemi Pham MD 06/24/2023 Pain in joint, multiple sites Rheumatology Noemi Pham MD Upcoming Rheumatology Appointments - Next 365 Days Visit Type Date Time Department [facility] 10/05/2024 11:00 AM [facility] CBC: Latest Ref Rng & Units 06/24/2023 06/01/2024 CBC WBC 3.70 - 11.00 k/uL 8.95 8.09 Hemoglobin 11.5 - 15.5 g/dL 15.5 14.5 Hematocrit 36.0 - 46.0 % 45.7 41.5 Platelet Count 150 - 400 k/uL 192 167 Vitamin D: None on file in the last 6 months LFT: Latest Ref Rng & Units 06/24/2023 06/01/2024 CMP Sodium 136 - 144 mmol/L 140 141 Potassium 3.7 - 5.1 mmol/L 4.2 3.8 Chloride 98 - 107 mmol/L 105 105 CO2 22 - 30 mmol/L 27 25 Glucose 74 - 99 mg/dL 94 132 BUN 7 - 21 mg/dL 12 10 Creatinine 0.58 - 0.96 mg/dL 1.10 0.84 Calcium 8.5 - 10.2 mg/dL 9.5 9.6 AST 13 - 35 U/L 39 65 ALT 7 - 38 U/L 46 78 Alkaline Phosphatase 34 - 123 U/L 46 56 Hepatic Function: Creatinine: Latest Ref Rng & Units 06/24/2023 06/01/2024 Creatinine Creatinine 0.58 - 0.96 mg/dL 1.10 0.84 ESR/CRP: Latest Ref Rng & Units 11/17/2023 06/01/2024 ESR, WSR WSR 0 - 20 mm/hr 25 35 Latest Ref Rng & Units 11/17/2023 06/01/2024 CRP CRP <0.9 mg/dL 0.7 1.1 Uric Acid: None on file in the last 6 months Open Standing (Multiple Instance) Lab Orders Remain Interval Expires Ordered Last Rel. HEPATIC FUNCTION PNL [SQHFP] 07/05 Every 2 months 07/11/25 07/11/24 Auth. provider: Noemi Pham MD Assoc. diagnoses: Seropositive rheumatoid arthritis of multiple sites (HCC) Open Future (Single Instance) Lab Orders None Called and left vm message for patient to call back [phone] and ask for triage nurse. Need to know what pharmacy Zofran needs to go to My chart message sent also. Patient has been identified by name and date of : Yes, Provider Dr. Pham Date 08/27/2024 Time 11:45 am Type of form: [employer] stating that Zofran is not filled through Specialty pharmacy Form received via: Fax When form is completed, contact Tried to call patient to see what pharmacy Zofran needs to go to. Form has been forwarded to: Letter sent to scanning Brianda Palomares LPN documented in this encounter [facility] 08-27-2024 Note Addended by: Ammy PALOMARES on: 08/27/2024 02:16 PM Modules accepted: Orders [facility] 08-27-2024 Telephone encounter Note Images from the original note were not included. Pended medication needs to go to different pharmacy [facility]. Most recent Rheumatology visit: 06/01/2024 (with Noemi Pham) Last Bone Density on file: None on file Rheumatology Care Team: None on file Recent Office Visits - This Specialty 06/01/2024 Rheumatoid arthritis involving multiple sites, unspecified whether rheumatoid factor present (HCC) Rheumatology Noemi Pham MD 01/27/2024 Rheumatoid arthritis involving multiple sites, unspecified whether rheumatoid factor present (HCC) Rheumatology Noemi Pham MD 06/24/2023 Pain in joint, multiple sites Rheumatology Noemi Pham MD Upcoming Rheumatology Appointments - Next 365 Days Visit Type Date Time Department [facility] 10/05/2024 11:00 AM [facility] CBC: Latest Ref Rng & Units 06/24/2023 06/01/2024 CBC WBC 3.70 - 11.00 k/uL 8.95 8.09 Hemoglobin 11.5 - 15.5 g/dL 15.5 14.5 Hematocrit 36.0 - 46.0 % 45.7 41.5 Platelet Count 150 - 400 k/uL 192 167 Vitamin D: None on file in the last 6 months LFT: Latest Ref Rng & Units 06/24/2023 06/01/2024 CMP Sodium 136 - 144 mmol/L 140 141 Potassium 3.7 - 5.1 mmol/L 4.2 3.8 Chloride 98 - 107 mmol/L 105 105 CO2 22 - 30 mmol/L 27 25 Glucose 74 - 99 mg/dL 94 132 BUN 7 - 21 mg/dL 12 10 Creatinine 0.58 - 0.96 mg/dL 1.10 0.84 Calcium 8.5 - 10.2 mg/dL 9.5 9.6 AST 13 - 35 U/L 39 65 ALT 7 - 38 U/L 46 78 Alkaline Phosphatase 34 - 123 U/L 46 56 Hepatic Function: Creatinine: Latest Ref Rng & Units 06/24/2023 06/01/2024 Creatinine Creatinine 0.58 - 0.96 mg/dL 1.10 0.84 ESR/CRP: Latest Ref Rng & Units 11/17/2023 06/01/2024 ESR, WSR WSR 0 - 20 mm/hr 25 35 Latest Ref Rng & Units 11/17/2023 06/01/2024 CRP CRP <0.9 mg/dL 0.7 1.1 Uric Acid: None on file in the last 6 months Open Standing (Multiple Instance) Lab Orders Remain Interval Expires Ordered Last Rel. HEPATIC FUNCTION PNL [SQHFP] 07/05 Every 2 months 07/11/25 07/11/24 Auth. provider: Noemi Pham MD Assoc. diagnoses: Seropositive rheumatoid arthritis of multiple sites (HCC) Open Future (Single Instance) Lab Orders None [facility] 08-27-2024 Telephone encounter Note Called and left vm message for patient to call back [phone] and ask for triage nurse. Need to know what pharmacy Zofran needs to go to My chart message sent also. Patient has been identified by name and date of : Yes, Provider Dr. Pham Date 08/27/2024 Time 11:45 am Type of form: [employer] stating that Zofran is not filled through Specialty pharmacy Form received via: Fax When form is completed, contact Tried to call patient to see what pharmacy Zofran needs to go to. Form has been forwarded to: Letter sent to augustin Palomares LPN [facility] 08-24-2024 History of Present illness Narrative Images from the original note were not included. CC: UI HPI: Ms. Hairston is a prior patient of mine from the [facility]. She previously had surgery with me in 2020. I believe it was a TVT. Records have been requested.Valsalva related leakage subsequently resolved. She continued to have urge related leakage. We trailed Oxybutynin but this caused severe dry mouth. She was then lost to follow-up. Reports UI several times daily in mod amts. Uses 1-2 pantyliners daily. She voids every hour during the day and once nightly. Reports double voiding. No symptoms of POP. CT A/P 06/08/2024 Renal US 01/20/2024 Past Medical History: Diagnosis Date Anxiety Asthma Autoimmune disease ([facility]) 09/26/2019 Chronic rheumatic arthritis ([facility]) Depression Diabetes mellitus ([facility]) Fibromyalgia GERD (gastroesophageal reflux disease) HLD (hyperlipidemia) HTN (hypertension) HTN (hypertension) 09/22/2021 Hypothyroidism Migraine Moderate mitral regurgitation Obstructive sleep apnea syndrome 02/12/2020 POTS (postural orthostatic tachycardia syndrome) RA (rheumatoid arthritis) ([facility]-HCC) Syncope TOS (thoracic outlet syndrome) Past Surgical History: Procedure Laterality Date ADENOIDECTOMY APPENDECTOMY BLADDER SUSPENSION Cardiac catheterization - CORS + LV GRAM/PRESS (69459) Left 10/08/2021 Performed by Ana María Plasencia MD at [facility] CARDIAC CATH LABS CHOLECYSTECTOMY ENDOMETRIAL BIOPSY HYSTERECTOMY TONSILLECTOMY TONSILLECTOMY ADENOIDECTOMY Current Outpatient Medications Medication Instructions ARIPiprazole (ABILIFY) 5 mg, Daily busPIRone (BUSPAR) 10 mg, Daily methotrexate 2.5 mg chemo tablet TAKE 4 TABS PO QWK FOR 2WKS THEN INCREASE TO 6 TABS PO QWK metoprolol succinate XL (TOPROL XL) 25 mg, oral, Daily nitroglycerin (NITROSTAT) 0.4 MG SL tablet 1 under the tongue as needed for angina, may repeat q5mins for up three doses ondansetron ODT (ZOFRAN ODT) 4 mg, oral, Every 8 hours PRN pantoprazole (PROTONIX) 40 mg EC tablet TAKE 1 TABLET BY MOUTH 30 MINUTES TO 1 HOUR BEFORE MORNING MEAL TWICE DAILY sertraline (ZOLOFT) 100 mg, Daily Allergies Allergen Reactions Imdur [Isosorbide Mononitrate] Headache and Vomiting Meloxicam Hives Other reaction(s): hives Methotrexate Hives NOT ALLERGIC PE: Ht 167.6 cm (5' 6 ) Wt 116.6 kg (257 lb) LMP (LMP Unknown) BMI 41.48 kg/m Constitutional: General: She is not in acute distress. Appearance: She is well-groomed. Cardiovascular: Rate: Normal rate. Lower extremity edema: none. Pulmonary: Effort: No respiratory distress, normal effort. Abdominal: General: There is no distension. Palpations: Abdomen is soft. There is no hepatomegaly, splenomegaly or mass. Tenderness: There is no abdominal tenderness. Hernia: No hernia is observable. Genitourinary: External exam Vulva and introitus: Normal appearance for age, no lesions, no erythema. Urethra: No prolapse, mass, urethral pain or urethral lesion. Bartholin's glands: Normal size, non-tender. Perineum/anus: Normal appearance, no lesions or hemorrhoids. Internal exam Vagina: Healthy pink mucosa without lesions, erythema or discharge. No mesh exposure or contracture. Cervix: Absent. Uterus: Absent. Adnexa: Bimanual exam limited per body habitus, ovaries not palpable, no tenderness or masses. Rectum: KARMA deferred. POP-Q: Negative A/P: Diagnosis Plan 1. Urge incontinence of urine Measure post void residual POCT urinalysis dipstick only 2. OAB (overactive bladder) 3. Pelvic muscle atrophy 49 y.o. female with UUI and OAB. S/p prior MUS with resolution of SALIMA. We discussed incontinence at length including epidemiology, pathophysiology, risk factors for development, associated symptoms, and treatment options. We discussed treatment options, from least to most invasive, including expectant management, strengthening the pelvic floor with Kegel exercises and/or pelvic floor physical therapy, dietary and behavioral modification, medication trial, continence pessary, and surgical management options. She was provided with written information on incontinence and overactive bladder from [facility]. She is interested in a medication trial. Myrbetriq 50 mg sent to her pharmacy. Counseled re potential side effects. She will also work on dietary and behavioral modification and weight loss. Reassess symptoms in 3 months. documented in this encounter [facility] 08-24-2024 History of Present illness Narrative Images from the original note were not included. [facility] [address] [facility] [address] Name: Lynette Hairston : 1975 08/24/2024 SUBJECTIVE: Chief Complaint: Left knee pain History of Present Illness: The patient is a pleasant 49-year-old female complains of left knee pain since early June,. She describes a sudden onset of pain when she was walking into work. She denies having any injury. She was seen at an urgent care center on July 07, 2024 where she had x-rays of the left knee. Additionally, she did have a recent MRI of the left knee as ordered by her PCP. She has been taking chqt-rab-yiliola ibuprofen as needed for pain. She does take methotrexate for rheumatoid arthritis. She points to the medial and anterior aspect of the knee when asked location of pain. The pain is exacerbated with squatting. There is associated clicking and popping but no locking or instability. There is occasional swelling. The pain is exacerbated by activity. Review of Systems: Refer to [facility] for other pertinent ROS findings Past Medical, Family, Surgical, and Social History, as well as Medications, Allergies, and Review of Systems were reviewed and can be seen in the patient's chart. OBJECTIVE: Physical Examination: There were no vitals filed for this visit. Body mass index is 41.16 kg/m . GENERAL APPEARANCE: The patient is well-developed, well-nourished, and in no acute distress. The patient is alert and oriented x 3, pleasant, and cooperative. The patient has a very large body habitus. The patient walks with a mildly antalgic gait. LEFT LOWER EXTREMITY: There is tenderness primarily of the medial femoral condyle and medial structures of the patella such as the MPFL and medial patellar retinaculum. There is a positive patellar grind test. Negative patellar apprehension test. Negative Cierra's test. No joint line tenderness. There is excellent ligament stability of the knee with negative Ede's, varus/valgus stress, and anterior /posterior drawer testing. No effusion. No significant edema. No ecchymosis. There are no skin lesions, masses, rashes, or ulcers. There is full range of motion of the hip, knee, and ankle without crepitus or instability. There is good muscle strength 5/5 throughout the motor groups supplied by the lumbar and sacral plexus. Gastroc, TA, HS, and Quad intact. RIGHT LOWER EXTREMITY: There is no pain or tenderness anywhere in the extremity There are no skin lesions, masses, rashes, or ulcers. There is full range of motion of the hip, knee, and ankle without crepitus or instability. There is good muscle strength 5/5 throughout the motor groups supplied by the lumbar and sacral plexus. Gastroc, TA, HS, and Quad intact. ASSESSMENT: 1. Primary osteoarthritis of left knee 2. Acute pain of left knee 3. Bipartite patella Radiologic findings: MR knee left without contrast Order: [id number] Status: Final result Visible to patient: Yes (seen) Next appt: Today at 10:15 AM in Gynecology (MAYI KEYS MD) Dx: Tear of left meniscus as current inju... 0 Result Notes Details Reading Physician Reading Date Result Priority Vito Sharp MD [phone] 08/03/2024 Routine Narrative & Impression HISTORY and Tech Notes: Left knee pain, unspecified chronicity; Tear of left meniscus as current injury, initial encounter Persistent pain for a month PROCEDURE: MRI of the left knee Noncontrast study COMPARISON: July 07 FINDINGS: No significant suprapatellar effusion seen. Trace fluid in the suprapatellar region There is mild edema around the patella There is a small Hood's cyst. There is abnormal serpiginous signal in the mid and upper patella which looks like a nondistracted fracture It is somewhat more intense over the apex and mid upper pole. There is no contusion in the lateral femoral condyle typical of a recent dislocation There is some edema in the anterior medial femoral condyle There is slight inferior position of the patella without signs of quadriceps rupture. The patellar tendon looks intact. The ACL looks intact with some fluid within and around the ACL sheath The PCL looks intact. MCL looks intact Lateral collateral ligament complex looks intact. No tibial plateau fracture or significant contusion is seen There is mild thinning of articular cartilage without osteochondral defect or significant arthritic change otherwise. There is mild irregularity of the medial meniscus likely some peripheral degenerative fraying but no discrete tear or cyst seen The lateral meniscus looks intact. There is a small amount of fluid in the lateral recess. . IMPRESSION: Findings most consistent with a healing nondisplaced reactive nondisplaced fracture through the mid and upper patella. There is only trace effusion and mild periarticular edema, slight inferior positioning of the patella perhaps related to some quadriceps weakness and laxity There is mild to moderate patellofemoral arthritic change and chondromalacia without contusion pattern otherwise typical of a recent lateral patellar dislocation There are mild degenerative changes slightly greater medially but no discrete meniscal tear or ligament rupture otherwise seen . . Finalized by Vito Sharp MD on 08/03/2024 5:42 PM Exam Ended: 08/03/24 12:16 EST Last Resulted: 08/03/24 17:42 EST X-ray knee left 3 views Order: [id number] Status: Final result Visible to patient: Yes (seen) Next appt: Today at 10:15 AM in Gynecology (MAYI KEYS MD) Dx: Acute pain of left knee 0 Result Notes Details Reading Physician Reading Date Result Priority Argelia Sousa MD [phone] 07/07/2024 STAT Narrative & Impression History: Medial pain. No known injury Study: Left Knee Three view study. Comparison: None Impression: No acute abnormality in the left knee.No effusion. No evidence of fracture or healing fracture. No patellar fracture. If pain or concern persists consider progress imaging follow-up. No chondromalacia. Finalized by Argelia Sousa MD on 07/07/2024 11:00 AM Exam Ended: 07/07/24 10:56 EST Last Resulted: 07/07/24 11:00 EST My personal interpretation of outside test results: Outside x-rays were reviewed show no acute bony abnormality. The MRIs were reviewed as well as the radiologic report I do believe the patellar injury as described as more likely an aggravation of a bipartite patella rather than a healing fracture given the fact that the patient did not have any traumatic event and just started developing some patellofemoral pain after walking. The MRI does confirm some arthritic changes in the patellofemoral joint as well External notes reviewed: Urgent care progress notes from June, were reviewed. PLAN: Left knee injection with 2 cc Celestone and 2 cc lidocaine. The patient was given home exercises to be done 2-3 times weekly. She will follow up in about 6 weeks. She will call sooner if there is any questions or problems. Written informed consent obtained?: Yes Risks and benefits: Risks, benefits and alternatives were discussed All efforts will be taken to conduct the procedure so as to minimize discomfort and risks, which include but not limited to; local skin changes, facial flushing, post injection inflammation, bleeding, allergic reaction, osteonecrosis, infection, and increased blood sugar. Consent given by: Patient Patient states understanding of procedures being performed: Yes Patient's understanding of procedure matches consent: Yes Procedure consent matches procedure scheduled: Yes Patient identity confirmed: Yes Indications: Pain Body area: left lower extremity Joint: left knee Skin preparation: Aseptic Needle size: 25 G Ultrasound guidance: No Approach: Anterolateral Lidocaine amount (ml): 2 mL Celestone amount (mg/ml): 12 (2 mL of 6 milligrams/milliliter) Patient tolerance: Patient tolerated the procedure well with no immediate complications Procedure was completed Complications: none This note is dictated with the use of M*Modal. Please note that this dictation was completed with computer voice recognition software. Quite often unanticipated grammatical, syntax, homophones, and other interpretive errors are inadvertently transcribed by the computer software. Please disregard these errors. Please excuse any errors that have escaped final proofreading PHYSICIAN ATTESTATION I did see and evaluate the patient at today's visit. Detailed history and physical can be seen above. At this point time we will go ahead and treat some of the arthritic changes in her knee. After informed verbal consent was obtained corticosteroid injection was performed. She is continue with the exercises that were given to her 2-3 times weekly. She is to follow up with us in proximally 6-8 weeks. She has call sooner if there is any other questions or problems. documented in this encounter [facility] 08-24-2024 Instructions Bienvenido Reza MD - 08/24/2024 8:00 AM EST Patient was given exercises to be done 2-3 times weekly. She was to follow up with us proximally 6 weeks. She has call sooner if there is any other questions or problems. documented in this encounter [facility] 08-22-2024 Telephone encounter Note The following approved medication requests have been transmitted electronically. Requested Prescriptions Pending Prescriptions Disp Refills ondansetron (ZOFRAN) 4 mg tablet 30 tablet 2 Sig: Take 1 tablet by mouth every 12 hours as needed. Noemi Pham MD [facility] 08-22-2024 Miscellaneous Notes The following approved medication requests have been transmitted electronically. Requested Prescriptions Pending Prescriptions Disp Refills ondansetron (ZOFRAN) 4 mg tablet 30 tablet 2 Sig: Take 1 tablet by mouth every 12 hours as needed. Noemi Pham MD Images from the original note were not included. Most recent Rheumatology visit: 06/01/2024 (with Noemi Pham) Last Bone Density on file: None on file Rheumatology Care Team: None on file Recent Office Visits - This Specialty 06/01/2024 Rheumatoid arthritis involving multiple sites, unspecified whether rheumatoid factor present (HCC) Rheumatology Noemi Pham MD 01/27/2024 Rheumatoid arthritis involving multiple sites, unspecified whether rheumatoid factor present (HCC) Rheumatology Noemi Pham MD 06/24/2023 Pain in joint, multiple sites Rheumatology Noemi Pham MD Upcoming Rheumatology Appointments - Next 365 Days Visit Type Date Time Department [facility] 10/05/2024 11:00 AM [facility] CBC: Latest Ref Rng & Units 06/24/2023 06/01/2024 CBC WBC 3.70 - 11.00 k/uL 8.95 8.09 Hemoglobin 11.5 - 15.5 g/dL 15.5 14.5 Hematocrit 36.0 - 46.0 % 45.7 41.5 Platelet Count 150 - 400 k/uL 192 167 Vitamin D: None on file in the last 6 months LFT: Latest Ref Rng & Units 06/24/2023 06/01/2024 CMP Sodium 136 - 144 mmol/L 140 141 Potassium 3.7 - 5.1 mmol/L 4.2 3.8 Chloride 98 - 107 mmol/L 105 105 CO2 22 - 30 mmol/L 27 25 Glucose 74 - 99 mg/dL 94 132 BUN 7 - 21 mg/dL 12 10 Creatinine 0.58 - 0.96 mg/dL 1.10 0.84 Calcium 8.5 - 10.2 mg/dL 9.5 9.6 AST 13 - 35 U/L 39 65 ALT 7 - 38 U/L 46 78 Alkaline Phosphatase 34 - 123 U/L 46 56 Hepatic Function: Creatinine: Latest Ref Rng & Units 06/24/2023 06/01/2024 Creatinine Creatinine 0.58 - 0.96 mg/dL 1.10 0.84 ESR/CRP: Latest Ref Rng & Units 11/17/2023 06/01/2024 ESR, WSR WSR 0 - 20 mm/hr 25 35 Latest Ref Rng & Units 11/17/2023 06/01/2024 CRP CRP <0.9 mg/dL 0.7 1.1 Uric Acid: None on file in the last 6 months Open Standing (Multiple Instance) Lab Orders Remain Interval Expires Ordered Last Rel. HEPATIC FUNCTION PNL [SQHFP] 07/05 Every 2 months 07/11/25 07/11/24 Auth. provider: Noemi Pham MD Assoc. diagnoses: Seropositive rheumatoid arthritis of multiple sites (HCC) Open Future (Single Instance) Lab Orders None documented in this encounter [facility] 08-21-2024 Telephone encounter Note Images from the original note were not included. Most recent Rheumatology visit: 06/01/2024 (with Noemi Pham) Last Bone Density on file: None on file Rheumatology Care Team: None on file Recent Office Visits - This Specialty 06/01/2024 Rheumatoid arthritis involving multiple sites, unspecified whether rheumatoid factor present ([facility]) Rheumatology Noemi Pham MD 01/27/2024 Rheumatoid arthritis involving multiple sites, unspecified whether rheumatoid factor present ([facility]) Rheumatology Noemi Pham MD 06/24/2023 Pain in joint, multiple sites Rheumatology Noemi Pham MD Upcoming Rheumatology Appointments - Next 365 Days Visit Type Date Time Department [facility] 10/05/2024 11:00 AM [facility] CBC: Latest Ref Rng & Units 06/24/2023 06/01/2024 CBC WBC 3.70 - 11.00 k/uL 8.95 8.09 Hemoglobin 11.5 - 15.5 g/dL 15.5 14.5 Hematocrit 36.0 - 46.0 % 45.7 41.5 Platelet Count 150 - 400 k/uL 192 167 Vitamin D: None on file in the last 6 months LFT: Latest Ref Rng & Units 06/24/2023 06/01/2024 CMP Sodium 136 - 144 mmol/L 140 141 Potassium 3.7 - 5.1 mmol/L 4.2 3.8 Chloride 98 - 107 mmol/L 105 105 CO2 22 - 30 mmol/L 27 25 Glucose 74 - 99 mg/dL 94 132 BUN 7 - 21 mg/dL 12 10 Creatinine 0.58 - 0.96 mg/dL 1.10 0.84 Calcium 8.5 - 10.2 mg/dL 9.5 9.6 AST 13 - 35 U/L 39 65 ALT 7 - 38 U/L 46 78 Alkaline Phosphatase 34 - 123 U/L 46 56 Hepatic Function: Creatinine: Latest Ref Rng & Units 06/24/2023 06/01/2024 Creatinine Creatinine 0.58 - 0.96 mg/dL 1.10 0.84 ESR/CRP: Latest Ref Rng & Units 11/17/2023 06/01/2024 ESR, WSR WSR 0 - 20 mm/hr 25 35 Latest Ref Rng & Units 11/17/2023 06/01/2024 CRP CRP <0.9 mg/dL 0.7 1.1 Uric Acid: None on file in the last 6 months Open Standing (Multiple Instance) Lab Orders Remain Interval Expires Ordered Last Rel. HEPATIC FUNCTION PNL [SQHFP] 07/05 Every 2 months 07/11/25 07/11/24 Auth. provider: Noemi Pham MD Assoc. diagnoses: Seropositive rheumatoid arthritis of multiple sites (HCC) Open Future (Single Instance) Lab Orders None [facility] 08-06-2024 Miscellaneous Notes PLEASE ADVISE THIS PATIENT HAS AND APPT ON 08.24.24 THE FOLLOW MRI SHOWS A FRACTURE DO YOU THINK SHE SHOULD BE SEEN SOONER? Did you receive a diagnosis for this problem? yes Diagnosis: Narrative & Impression HISTORY and Tech Notes: Left knee pain, unspecified chronicity; Tear of left meniscus as current injury, initial encounter Persistent pain for a month PROCEDURE: MRI of the left knee Noncontrast study COMPARISON: July 07 FINDINGS: No significant suprapatellar effusion seen. Trace fluid in the suprapatellar region There is mild edema around the patella There is a small Hood's cyst. There is abnormal serpiginous signal in the mid and upper patella which looks like a nondistracted fracture It is somewhat more intense over the apex and mid upper pole. There is no contusion in the lateral femoral condyle typical of a recent dislocation There is some edema in the anterior medial femoral condyle There is slight inferior position of the patella without signs of quadriceps rupture. The patellar tendon looks intact. The ACL looks intact with some fluid within and around the ACL sheath The PCL looks intact. MCL looks intact Lateral collateral ligament complex looks intact. No tibial plateau fracture or significant contusion is seen There is mild thinning of articular cartilage without osteochondral defect or significant arthritic change otherwise. There is mild irregularity of the medial meniscus likely some peripheral degenerative fraying but no discrete tear or cyst seen The lateral meniscus looks intact. There is a small amount of fluid in the lateral recess. . IMPRESSION: Findings most consistent with a healing nondisplaced reactive nondisplaced fracture through the mid and upper patella. There is only trace effusion and mild periarticular edema, slight inferior positioning of the patella perhaps related to some quadriceps weakness and laxity There is mild to moderate patellofemoral arthritic change and chondromalacia without contusion pattern otherwise typical of a recent lateral patellar dislocation There are mild degenerative changes slightly greater medially but no discrete meniscal tear or ligament rupture otherwise seen . . Finalized by Vito Sharp MD on 08/03/2024 5:42 PM Was another doctor involved in your care for this problem? YES If so, By whom? JONELLE PURI NP where? [facility] when? 07.20.24 Have any x-rays/MRIs been taken? yes If so, where? [facility] when? 08.03.24 Request to bring disc: no documented in this encounter [employer] 08-06-2024 Telephone encounter Note PLEASE ADVISE THIS PATIENT HAS AND APPT ON 08.24.24 THE FOLLOW MRI SHOWS A FRACTURE DO YOU THINK SHE SHOULD BE SEEN SOONER? Did you receive a diagnosis for this problem? yes Diagnosis: Narrative & Impression HISTORY and Tech Notes: Left knee pain, unspecified chronicity; Tear of left meniscus as current injury, initial encounter Persistent pain for a month PROCEDURE: MRI of the left knee Noncontrast study COMPARISON: July 07 FINDINGS: No significant suprapatellar effusion seen. Trace fluid in the suprapatellar region There is mild edema around the patella There is a small Hood's cyst. There is abnormal serpiginous signal in the mid and upper patella which looks like a nondistracted fracture It is somewhat more intense over the apex and mid upper pole. There is no contusion in the lateral femoral condyle typical of a recent dislocation There is some edema in the anterior medial femoral condyle There is slight inferior position of the patella without signs of quadriceps rupture. The patellar tendon looks intact. The ACL looks intact with some fluid within and around the ACL sheath The PCL looks intact. MCL looks intact Lateral collateral ligament complex looks intact. No tibial plateau fracture or significant contusion is seen There is mild thinning of articular cartilage without osteochondral defect or significant arthritic change otherwise. There is mild irregularity of the medial meniscus likely some peripheral degenerative fraying but no discrete tear or cyst seen The lateral meniscus looks intact. There is a small amount of fluid in the lateral recess. . IMPRESSION: Findings most consistent with a healing nondisplaced reactive nondisplaced fracture through the mid and upper patella. There is only trace effusion and mild periarticular edema, slight inferior positioning of the patella perhaps related to some quadriceps weakness and laxity There is mild to moderate patellofemoral arthritic change and chondromalacia without contusion pattern otherwise typical of a recent lateral patellar dislocation There are mild degenerative changes slightly greater medially but no discrete meniscal tear or ligament rupture otherwise seen . . Finalized by Vito Sharp MD on 08/03/2024 5:42 PM Was another doctor involved in your care for this problem? YES If so, By whom? JONELLE PURI NP where? [facility] when? 07.20.24 Have any x-rays/MRIs been taken? yes If so, where? [facility] when? 08.03.24 Request to bring disc: no [facility] [email or web address] [facility] 07-14-2024 Hospital Discharge instructions Balwinder Chi MD - 07/14/2024 2:50 PM EST Your prescription has been sent to the [facility] pharmacy at [address] [place] [address] in [place], [place] phone number [phone]. Be sure to follow up with your primary care provider. Return to emergency department for any acute concerns or worsening symptoms. The following attachments cannot be sent through Care Everywhere.Medication Overdose: Accidental ([place])documented in this encounter [facility] 07-11-2024 Telephone encounter Note Please advise regarding next orders. Lab orders mailed to patient. [facility] 07-11-2024 Miscellaneous Notes Please advise regarding next orders. Lab orders mailed to patient. Please mail her standing orders for labs. Noemi Pham MD Please advise on patient plan of care documented in this encounter [facility] 07-11-2024 Telephone encounter Note Please mail her standing orders for labs. Noemi Pham MD [facility] 07-11-2024 Telephone encounter Note Please advise on patient plan of care [facility] 07-11-2024 Telephone encounter Note Called patient, told her to hold the MTX for now, she is going to ER now per poison control. She took 4 tabs po every day for 5 days, total of 20 tabs. Told her to let me know results of labs, she will do so Denies any chest pain, sob, nausea or vomiting. Noemi Pham MD [facility] 07-11-2024 Miscellaneous Notes Called patient, told her to hold the MTX for now, she is going to ER now per poison control. She took 4 tabs po every day for 5 days, total of 20 tabs. Told her to let me know results of labs, she will do so Denies any chest pain, sob, nausea or vomiting. Noemi Pham MD Patient calling. She has taken an overdose of her methotrexate 2.5mg tablets. Beginning on 07/06 through last night she has taken 4 tabs every day. Dosing was to be 4 tabs every week. Provided the patient with the poison control number, she will call now. Denies chest pain, shortness of breath. Has some dizziness and palpitations last night, none this morning. BP overnight was 99/65 Feels fatigued and lethargic. Agreeable to ED if symptoms worsen or new symptoms present Asking for next steps? CALL [phone] 8:31am: Office contacted, Spoke with Tommie GO TO THE EMERGENCY ROOM OR CALL 911 IF: * You develop any new symptoms * Your condition worsens * You are concerned or anxious about your condition for any other reason. If you have any questions, call back. documented in this encounter [facility] 07-11-2024 Telephone encounter Note Patient calling. She has taken an overdose of her methotrexate 2.5mg tablets. Beginning on 07/06 through last night she has taken 4 tabs every day. Dosing was to be 4 tabs every week. Provided the patient with the poison control number, she will call now. Denies chest pain, shortness of breath. Has some dizziness and palpitations last night, none this morning. BP overnight was 99/65 Feels fatigued and lethargic. Agreeable to ED if symptoms worsen or new symptoms present Asking for next steps? CALL [phone] 8:31am: Office contacted, Timur with Tommie GO TO THE EMERGENCY ROOM OR CALL 911 IF: * You develop any new symptoms * Your condition worsens * You are concerned or anxious about your condition for any other reason. If you have any questions, call back. [facility] 07-07-2024 History of Present illness Narrative Subjective: Patient ID: [id number] Hairston is a 49 y.o. female. Chief Complaint Patient presents with Knee Pain Left knee no known injury inflammed pain started 4 days ago New onset of left medial knee pain; onset Wed, worsening w/ movement and at rest. No prior knee injury Knee Pain The incident occurred 3 to 5 days ago. Incident location: walking into work. There was no injury mechanism. The pain is present in the left knee. The quality of the pain is described as shooting and stabbing. The pain is moderate. The pain has been Fluctuating since onset. Pertinent negatives include no inability to bear weight, loss of motion, loss of sensation, muscle weakness, numbness or tingling. She reports no foreign bodies present. She has tried elevation and NSAIDs for the symptoms. The treatment provided no relief. The following portions of the patient's history were reviewed and updated as appropriate: allergies, current medications, past family history, past medical history, past social history, past surgical history and problem list. Review of Systems Constitutional: Negative. Respiratory: Negative. Cardiovascular: Negative. Musculoskeletal: Positive for myalgias. Skin: Negative for color change. Neurological: Negative for tingling, weakness and numbness. Past Medical History: Diagnosis Date Anxiety Asthma Autoimmune disease [place] 09/26/2019 Chronic rheumatic arthritis ([facility] Depression Diabetes mellitus ([facility] Fibromyalgia GERD (gastroesophageal reflux disease) HLD (hyperlipidemia) HTN (hypertension) HTN (hypertension) 09/22/2021 Hypothyroidism Migraine Moderate mitral regurgitation Obstructive sleep apnea syndrome 02/12/2020 POTS (postural orthostatic tachycardia syndrome) RA (rheumatoid arthritis) (CMS-HCC) Syncope TOS (thoracic outlet syndrome) Past Surgical History: Procedure Laterality Date ADENOIDECTOMY APPENDECTOMY BLADDER SUSPENSION Cardiac catheterization - CORS + LV GRAM/PRESS ([id number]) Left 10/08/2021 Performed by Ana María Plasencia MD at [facility] CARDIAC CATH LABS CHOLECYSTECTOMY ENDOMETRIAL BIOPSY HYSTERECTOMY TONSILLECTOMY TONSILLECTOMY ADENOIDECTOMY Social History Tobacco Use Smoking status: Never Smokeless tobacco: Never Vaping Use Vaping status: Never Used Substance Use Topics Alcohol use: Yes Comment: occasional Drug use: No Family History Problem Relation Age of Onset Hyperlipidemia Mother Diabetes Mother Hypothyroidism Mother Hypertension Mother No Known Problems Father Breast cancer Neg Hx Colon cancer Neg Hx Ovarian cancer Neg Hx Lung cancer Neg Hx Cervical cancer Neg Hx Glaucoma Neg Hx Macular degeneration Neg Hx Allergies Allergen Reactions Imdur [Isosorbide Mononitrate] Headache and Vomiting Meloxicam Hives Other reaction(s): hives Methotrexate Hives NOT ALLERGIC Current Outpatient Medications on File Prior to Visit Medication Sig Dispense Refill ARIPiprazole (ABILIFY) 5 mg tablet Take 1 tablet (5 mg total) by mouth in the morning. busPIRone (BUSPAR) 10 mg tablet Take 1 tablet (10 mg total) by mouth in the morning. methotrexate 2.5 mg chemo tablet TAKE 4 TABS PO QWK FOR 2WKS THEN INCREASE TO 6 TABS PO QWK metoprolol succinate XL (TOPROL XL) 25 mg 24 hr tablet Take 1 tablet (25 mg total) by mouth in the morning. 90 tablet 3 nitroglycerin (NITROSTAT) 0.4 MG SL tablet 1 under the tongue as needed for angina, may repeat q5mins for up three doses 25 tablet 5 ondansetron ODT (ZOFRAN ODT) 4 mg disintegrating tablet Dissolve 1 tablet (4 mg total) on tongue every 8 (eight) hours as needed for nausea for up to 10 doses. 10 tablet 0 sertraline (ZOLOFT) 100 mg tablet Take 1 tablet (100 mg total) by mouth in the morning. SUMAtriptan (IMITREX) 100 mg tablet Take 1 tablet (100 mg total) by mouth once as needed for migraine. May repeat in 2 hours if unresolved. Do not exceed 200 mg in 24 hours. 9 tablet 11 pantoprazole (PROTONIX) 40 mg EC tablet TAKE 1 TABLET BY MOUTH 30 MINUTES TO 1 HOUR BEFORE MORNING MEAL TWICE DAILY No current facility-administered medications on file prior to visit. Objective: Vitals: 07/07/24 1007 BP: 118/71 Pulse: 96 Resp: 18 Temp: 36.3 C (97.4 F) TempSrc: Temporal SpO2: 97% Weight: 115.7 kg (255 lb) Height: 167.6 cm (5' 6 ) No LMP recorded (lmp unknown). Patient has had a hysterectomy. The patient is not currently . Body mass index is 41.16 kg/m . Facility age limit for growth %cullen is 20 years. Physical Exam Vitals and nursing note reviewed. Constitutional: General: She is not in acute distress. Appearance: She is well-developed. Cardiovascular: Rate and Rhythm: Normal rate. Pulmonary: Effort: Pulmonary effort is normal. Musculoskeletal: Left knee: No swelling, deformity, effusion, erythema, ecchymosis, lacerations or bony tenderness. Normal range of motion. Tenderness present over the medial joint line and MCL. No LCL laxity. Skin: General: Skin is warm and dry. Neurological: Mental Status: She is alert and oriented to person, place, and time. Assessment/Plan: DDXs: Musculoskeletal pain, knee sprain, knee strain, knee fracture, Trauma 49-year-old female chief complaint acute onset of left knee pain several days ago. She denies any injury. Pain is medial side of knee. Pain initially was just with movement now it is at all times. Has taken ibuprofen with no relief. Knee x-ray ordered. Results: Per radiology no acute osseous pathology. Short course of prednisone is ordered. Patient will follow-up with PCP. Additional treatment modalities in the AVS. Red Flags: Hematoma, edema, and significant pain around the involved area, reduced movement of the knee, inability to bear weight Lynette was seen today for knee pain. Diagnoses and all orders for this visit: Acute pain of left knee - X-ray knee left 3 views; Future - predniSONE (DELTASONE) 20 mg tablet; Take 2 tablets (40 mg total) by mouth in the morning for 5 days. X-ray knee left 3 views Result Date: 07/07/2024 History: Medial pain. No known injury Study: Left Knee Three view study. Comparison: None Impression: No acute abnormality in the left knee.No effusion. No evidence of fracture or healing fracture. No patellar fracture. If pain or concern persists consider progress imaging follow-up. No chondromalacia. Finalized by Argelia Sousa MD on 07/07/2024 11:00 AM Orders Placed or Reconciled This Encounter Medications pantoprazole (PROTONIX) 40 mg EC tablet Sig: TAKE 1 TABLET BY MOUTH 30 MINUTES TO 1 HOUR BEFORE MORNING MEAL TWICE DAILY methotrexate 2.5 mg chemo tablet Sig: TAKE 4 TABS PO QWK FOR 2WKS THEN INCREASE TO 6 TABS PO QWK predniSONE (DELTASONE) 20 mg tablet Sig: Take 2 tablets (40 mg total) by mouth in the morning for 5 days. Dispense: 10 tablet Refill: 0 Patient Instructions Consider immediate medical re-evaluation from a healthcare provider for continuing, worsening, concerning or new symptoms. Contact your primary care physician's office within the next 1-2 business days to share the information that has been discussed with you during today's visit. If you do not have a primary care physician, please consider returning to urgent care or the nearest emergency dept. for evaluation of non-improving symptoms until you are established with a primary care practice. NEED A PROVIDER? 1-800-PPG DOCS // or ppgdocs. If you have been prescribed any medications during your visit today, those medications have been discussed with you including: Dose, frequency, duration, and potential side effects. Every individual responds differently to each medication, please use caution until you understand how each medication affects you individually. If you have been recommended [id number] medications please use those medications as indicated on their packaging detail. This note is dictated with the use of M*Modal.Please note that this dictation was completed with computer voice recognition software. Quite often unanticipated grammatical, syntax, homophones, and other interpretive errors are inadvertently transcribed by the computer software. Please disregard these errors. Please excuse any errors that have escaped final proofreading. I personally discussed test results with patient/parent. Education handout and discharge papers given. Paperwork explained. Denies questions or concerns. Discussed that follow up care is usually required after a visit to the Urgent care. It is your responsibility to contact your primary care provider for follow up. If symptoms are not improving, worsening, or concerning symptoms of illness develop, follow up with your primary care provider or go to the nearest Emergency Department for further care immediately. MEI Chan 07/07/24 1115 documented in this encounter [facility] 07-07-2024 Instructions MEI Chan - 07/07/2024 9:45 AM EST Consider immediate medical re-evaluation from a healthcare provider for continuing, worsening, concerning or new symptoms. Contact your primary care physician's office within the next 1-2 business days to share the information that has been discussed with you during today's visit. If you do not have a primary care physician, please consider returning to urgent care or the nearest emergency dept. for evaluation of non-improving symptoms until you are established with a primary care practice. NEED A PROVIDER? 1-800-PPG DOCS // or ppgdocs. If you have been prescribed any medications during your visit today, those medications have been discussed with you including: Dose, frequency, duration, and potential side effects. Every individual responds differently to each medication, please use caution until you understand how each medication affects you individually. If you have been recommended [id number] medications please use those medications as indicated on their packaging detail. The following attachments cannot be sent through Care Everywhere.Knee Pain Discharge Instructions ([place]orese)documented in this encounter [facility] 06-29-2024 Telephone encounter Note Patient Is ok with methotrexate , [facility] Lab orders mailed to patient address on file, per patient request. [facility] 06-29-2024 Miscellaneous Notes Patient Is ok with methotrexate , [facility]. Lab orders mailed to patient address on file, per patient request. documented in this encounter [facility] 06-29-2024 Telephone encounter Note Spoke with claims customer service representative Marjorie at [facility] her pharmacy services director. She asked for additional details as to at least 2 tried medications and/or any triptans needed. Said that she will submit the information and if anything else is needed for the PA then they will fax a request to our office. [facility] 06-29-2024 Miscellaneous Notes Spoke with claims customer service representative Marjorie at [facility] her pharmacy services director. She asked for additional details as to at least 2 tried medications and/or any triptans needed. Said that she will submit the information and if anything else is needed for the PA then they will fax a request to our office. [place] [facility] [phone] is requesting a call back Re: Nurtec prior authorization. She also stated it needs step therapy. documented in this encounter [facility] 06-29-2024 Telephone encounter Note [place] at [facility] at [phone] is requesting a call back Re: Nurtec prior authorization. She also stated it needs step therapy. [facility] 06-26-2024 Note HNO ID: [id number] Author: CARLOS TAI MD Service: ? Author Type: Physician Type: Progress Notes Filed: 06/26/2024 15:04 Note Text: UNIVERSAL PROTOCOL / SAFETY CHECKLIST [...] Plan of Care Visit completed when applicable. Sherrill Velazquez Emg tech Carlos Tai MD (sign out) [facility] 06-26-2024 History of Present illness Narrative UNIVERSAL PROTOCOL / SAFETY CHECKLIST Procedure to [...] Plan of Care Visit completed when applicable. Sherrill Velazquez Emg tech Carlos Tai MD (sign out) documented in this encounter [facility] 06-14-2024 Telephone encounter Note The following approved medication requests have been transmitted electronically. Requested Prescriptions Signed Prescriptions Disp Refills tofacitinib (XELJANZ XR) 11 mg tablet, extended release 90 tablet 0 Sig: Take 1 tablet (11 mg) by mouth once daily. Noemi Pham MD [facility] 06-14-2024 Miscellaneous Notes The following approved medication requests have been transmitted electronically. Requested Prescriptions Signed Prescriptions Disp Refills tofacitinib (XELJANZ XR) 11 mg tablet, extended release 90 tablet 0 Sig: Take 1 tablet (11 mg) by mouth once daily. Noemi Pham MD Re-pended for specialty pharmacy. Pharmacy electronically requests the following refill(s) Requested Prescriptions Pending Prescriptions Disp Refills tofacitinib (XELJANZ XR) 11 mg tablet, extended release 30 tablet 2 Sig: Take 1 tablet (11 mg) by mouth once daily. Inocencia Bui LPN documented in this encounter [facility] 06-14-2024 Telephone encounter Note Re-pended for specialty pharmacy. Pharmacy electronically requests the following refill(s) Requested Prescriptions Pending Prescriptions Disp Refills tofacitinib (XELJANZ XR) 11 mg tablet, extended release 30 tablet 2 Sig: Take 1 tablet (11 mg) by mouth once daily. Inocencia Bui LPN [facility] 06-13-2024 Telephone encounter Note Forwarded to provider. [facility] Work Phone: 06-13-2024 Miscellaneous Notes Forwarded to provider. documented in this encounter [facility] 06-06-2024 Telephone encounter Note Please send her orders for EMG so she can have it done near her house. Noemi Pham MD [facility] 06-06-2024 Miscellaneous Notes Please send her orders for EMG so she can have it done near her house. Noemi Pham MD documented in this encounter [facility] 06-01-2024 Telephone encounter Note Your PA for Xeljanz has been faxed to the plan as a paper copy. Please contact the plan directly if you haven't received a determination in a typical timeframe. You will be notified of the determination electronically and via fax. How do I know if the plan approved the PA? Add Reminder to your Dashboard Remind me in: 5 business days Contact plan to follow up on [id number] Located in Covermymeds [facility] 06-01-2024 Miscellaneous Notes Your PA for Xeljanz has been faxed to the plan as a paper copy. Please contact the plan directly if you haven't received a determination in a typical timeframe. You will be notified of the determination electronically and via fax. How do I know if the plan approved the PA? Add Reminder to your Dashboard Remind me in: 5 business days Contact plan to follow up on [id number] Located in Covermymeds documented in this encounter [facility] 06-01-2024 Telephone encounter Note Patient stopped at check out desk requesting a refill for ZOFRAN. Thank you. [facility] 06-01-2024 Miscellaneous Notes Patient stopped at check out desk requesting a refill for ZOFRAN. Thank you. documented in this encounter [facility] 06-01-2024 Note HNO ID: [id number] Author: INOCENCIA BUI LPN Service: ? Author Type: LICENSED NURSE Type: Progress Notes Filed: 06/01/2024 15:22 Note Text: Methylprednisolone 80mg verified. [facility] 06-01-2024 History of Present illness Narrative Methylprednisolone 80mg verified. Lynette Prince is a 48 year old female who presents for follow up: for RA LABS RF+,>650, elevated aldolase levels,slightly increased sed rate and crp EMG of rt upper and lower extremities- normal PREVIOUS DIAG myalgias- h/o FM - diagnosed in 2009, chronic back pain RA and 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- elevated aldolase and complaints of weakness pleurisy gastropresis Thoracic Outlet syndrome Lowered GFR with cloud urine- due to see nephrology INTERVAL HISTORY since last visit,has worsening arthraligas and myalgias Pain in all joints today All joints and muscles hurt Stiffness is worsening No red hot swollen joints per say No rash, ulcers, fevers, swollen lymph nodes, [...] started on 11/11- feels it is helping Cymbalta- causes goose bumps Currently on Enbrel and plaquenil bid Arava- did not start due to liver fibrosis Xeljanz- started on 06/17 REVIEW OF SYSTEMS PAST MEDICAL HISTORY Diagnosis Date Fibromyalgia Hypothyroidism Migraines MARINE (obstructive sleep apnea) POTS (postural orthostatic tachycardia syndrome) Restless leg syndrome Rheumatoid arthritis (HCC) No past surgical history on file. rimegepant (NURTEC ODT) 75 mg disintegrating tablet Take 1 tab po every other day zonisamide (ZONEGRAN) 100 mg capsule Take 1 cap po QAM and 2 cap QHS ondansetron (ZOFRAN) 4 mg tablet Take 1 tablet by mouth every 12 hours as needed. leflunomide (ARAVA) 10 mg tablet Take 1 tablet by mouth once daily. Etanercept (ENBREL) 50 mg/mL (1 mL) injection INJECT 50 MG UNDER THE SKIN WEEKLY rosuvastatin (CRESTOR) 20 mg tablet SUMAtriptan (IMITREX) 100 mg tablet metoprolol tartrate, short acting, (LOPRESSOR) 25 mg tablet Take 12.5 mg by mouth once daily. omeprazole (PRILOSEC) 40 mg capsule Take 40 mg by mouth once daily. ibuprofen (MOTRIN) 800 mg tablet Take 800 mg by mouth as needed. ARIPiprazole (ABILIFY) 2 mg tablet Take 2 mg by mouth once daily. busPIRone (BUSPAR) 10 mg tablet Take 10 mg by mouth three times daily. COMPOUNDED PRESCRIPTION Handicapped placard Diagnosis- RA Cannot walk >200 ft Duration- 3 yrs sertraline (ZOLOFT) 100 mg tablet Take 100 mg by mouth once daily. ergocalciferol 50,000 unit capsule (VITAMIN D2, DRISDOL) TAKE 1 CAPSULE BY MOUTH ONE TIME A WEEK. FAMILY HISTORY Problem Relation Age of Onset Systemic Lupus Erythematosus Mother Systemic Lupus Erythematosus Daughter Social History Tobacco Use Smoking status: Never Smokeless tobacco: Never Substance Use Topics Alcohol use: Yes Comment: Occasional Drug use: Never BP 117/87 Pulse 116 Resp 18 Ht 167.6 cm (5' 5.98 ) Wt 116.2 kg (256 lb 2.8 oz) BMI 41.37 kg/m PE; ambulates slow and stiff. Appears to be in no distress, very pleasant Pain on palpation of all joints All joints are tender Swelling of bilateral ankles MOST RECENT LABS: REVIEWED WITH PATIENT IMP/PLAN: RA/FM- feels arthralgias and em stiffness are wrosening Stiffness has worsened Can hardly get out car. Very difficult to do any ADL due to pain and stiffness -will continue to stay off plaquenil, stopped due to rash of face -will stop Enbrel -plan was to start low dose arava at 5mg po every day she has worsening arthralgias and stiffness -start xeljanz. NO CI noted -depo medrol for acute myalgias -start oral prednisone at 10m gpo every day for one week,then 5mg po every day therafter Bilateral hip pain - chronic bursitis, given CS injection and helped for a few days Lowered GFR and cloudy urine -under care of nephrology, work up in progress -avoid nsaids for now Liver abn -fatty liver and liver fibrosis -liver biopsy showed steatohepatitis with perisinusoidal fibrosis F/U in 6m Noemi Pham MD F/U: 6m Check following: -none Noemi Pham MD documented in this encounter [facility] 06-01-2024 Note HNO ID: [id number] Author: NOEMI PHAM MD Service: ? Author Type: Physician Type: Progress Notes Filed: 06/01/2024 15:22 Note Text: Lynette Prince is a 48 year old female who presents for follow up: for RA LABS RF+,>650, elevated aldolase levels,slightly increased sed rate and crp EMG of rt upper and lower extremities- normal PREVIOUS DIAG myalgias- h/o FM - diagnosed in 2009, chronic back pain RA and 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- elevated aldolase and complaints of weakness pleurisy gastropresis Thoracic Outlet syndrome Lowered GFR with cloud urine- due to see nephrology INTERVAL HISTORY since last visit,has worsening arthraligas and myalgias Pain in all joints today All joints and muscles hurt Stiffness is worsening No red hot swollen joints per say No rash, ulcers, fevers, swollen lymph nodes, [...] started on 11/11- feels it is helping Cymbalta- causes goose bumps Currently on Enbrel and plaquenil bid Arava- did not start due to liver fibrosis Xeljanz- started on 06/17 REVIEW OF SYSTEMS PAST MEDICAL HISTORY Diagnosis Date Fibromyalgia Hypothyroidism Migraines MARINE (obstructive sleep apnea) POTS (postural orthostatic tachycardia syndrome) Restless leg syndrome Rheumatoid arthritis (HCC) No past surgical history on file. rimegepant (NURTEC ODT) 75 mg disintegrating tablet Take 1 tab po every other day zonisamide (ZONEGRAN) 100 mg capsule Take 1 cap po QAM and 2 cap QHS ondansetron (ZOFRAN) 4 mg tablet Take 1 tablet by mouth every 12 hours as needed. leflunomide (ARAVA) 10 mg tablet Take 1 tablet by mouth once daily. Etanercept (ENBREL) 50 mg/mL (1 mL) injection INJECT 50 MG UNDER THE SKIN WEEKLY rosuvastatin (CRESTOR) 20 mg tablet SUMAtriptan (IMITREX) 100 mg tablet metoprolol tartrate, short acting, (LOPRESSOR) 25 mg tablet Take 12.5 mg by mouth once daily. omeprazole (PRILOSEC) 40 mg capsule Take 40 mg by mouth once daily. ibuprofen (MOTRIN) 800 mg tablet Take 800 mg by mouth as needed. ARIPiprazole (ABILIFY) 2 mg tablet Take 2 mg by mouth once daily. busPIRone (BUSPAR) 10 mg tablet Take 10 mg by mouth three times daily. COMPOUNDED PRESCRIPTION Handicapped placard Diagnosis- RA Cannot walk >200 ft Duration- 3 yrs sertraline (ZOLOFT) 100 mg tablet Take 100 mg by mouth once daily. ergocalciferol 50,000 unit capsule (VITAMIN D2, DRISDOL) TAKE 1 CAPSULE BY MOUTH ONE TIME A WEEK. FAMILY HISTORY Problem Relation Age of Onset Systemic Lupus Erythematosus Mother Systemic Lupus Erythematosus Daughter Social History Tobacco Use Smoking status: Never Smokeless tobacco: Never Substance Use Topics Alcohol use: Yes Comment: Occasional Drug use: Never BP 117/87 Pulse 116 Resp 18 Ht 167.6 cm (5' 5.98 ) Wt 116.2 kg (256 lb 2.8 oz) BMI 41.37 kg/m? PE; ambulates slow and stiff. Appears to be in no distress, very pleasant Pain on palpation of all joints All joints are tender Swelling of bilateral ankles MOST RECENT LABS: REVIEWED WITH PATIENT IMP/PLAN: RA/FM- feels arthralgias and em stiffness are wrosening Stiffness has worsened Can hardly get out car. Very difficult to do any ADL due to pain and stiffness -will continue to stay off plaquenil, stopped due to rash of face -will stop Enbrel -plan was to start low dose arava at 5mg po every day she has worsening arthralgias and stiffness -start xeljanz. NO CI noted -depo medrol for acute myalgias -start oral prednisone at 10m gpo every day for one week,then 5mg po every day therafter Bilateral hip pain - chronic bursitis, given CS injection and helped for a few days Lowered GFR and cloudy urine -under care of nephrology, work up in progress -avoid nsaids for now Liver abn -fatty liver and liver fibrosis -liver biopsy showed steatohepatitis with perisinusoidal fibrosis F/U in 6m Noemi Pham MD F/U: 6m Check following: -none Noemi Pham MD [facility] 05-18-2024 Telephone encounter Note Mychart response routed to provider for review. [facility] 05-18-2024 Miscellaneous Notes Mychart response routed to provider for review. Forwarded to provider. documented in this encounter [facility] 05-16-2024 Telephone encounter Note Forwarded to provider. [facility] Work Phone: 05-04-2024 Note PROCEDURE: IR BIOPSY LIVER PERCUTANEOUS MODERATE CONSCIOUS SEDATION 05/04/2024 HISTORY: ORDERING SYSTEM PROVIDED HISTORY: Liver disease TECHNIQUE: Sonogram was utilized CONTRAST: None SEDATION: Moderate sedation was ordered and supervised by the attending with physician [id number] monitoring. Medications were provided and recorded by Radiology nurses. FLUOROSCOPY DOSE AND TYPE: Radiation Exposure Index: None, DESCRIPTION OF PROCEDURE: Informed consent was obtained after a detailed explanation of the procedure including risks, benefits, and alternatives. [place] protocol was observed. Sterile gowns, masks, hats and gloves utilized for maximal sterile barrier. While the patient was position supine, after localizing, marking and anesthetizing the skin overlying the epigastric region with 1% lidocaine, under live sonography, a 19 gauge guiding needle was advanced to the lateral segment left hepatic lobe. Sonogram image confirmed satisfactory needle tip position and safe tract access. 4 core samples using a 20 gauge needle were obtained and placed in formalin. The guiding needle was removed and the skin site was dressed appropriately. The patient tolerated the procedure well left the department stable condition. FINDINGS: Postprocedural sonogram demonstrated no immediate complications. IMPRESSION: Technically successful ultrasound-guided random core liver biopsy. Interpreted by: Wan Madrigal MD Signed by: Wan Madrigal MD 05/04/24 Final result [facility] 05-02-2024 Telephone encounter Note Called patient and relayed below provider message from .Verbalized understanding and will send mychart message when biopsy is completed. [facility] 05-02-2024 Miscellaneous Notes Called patient and relayed below provider message from .Verbalized understanding and will send mychart message when biopsy is completed. Typically, Enbrel does not cause liver issues but there is always a possibility. Let's wait and see what her liver biopsy reveals. Noemi Pham MD Lynette is calling Noemi Pham MD today to ask about enbrel. Could it be causing her liver issues? She is having a liver biopsy Tuesday the . Labs done at [facility] in [place]. Patient has been identified by name and birthdate. Duration of symptoms: N/A Person calling: self Call patient at: on cell [phone] (home) [phone] (cell) Was an appointment scheduled: No Closing statement: Results or non-symptom based questions: Thank you for calling [facility], your call will be returned within the next business day. Minh Mosqueda documented in this encounter [facility] 05-02-2024 Telephone encounter Note Typically, Enbrel does not cause liver issues but there is always a possibility. Let's wait and see what her liver biopsy reveals. Noemi Pham MD [facility] 04-30-2024 Telephone encounter Note Lynette is calling Noemi Pham MD today to ask about enbrel. Could it be causing her liver issues? She is having a liver biopsy Tuesday the . Labs done at [facility] in [place]. Patient has been identified by name and birthdate. Duration of symptoms: N/A Person calling: self Call patient at: on cell [phone] (home) [phone] (cell) Was an appointment scheduled: No Closing statement: Results or non-symptom based questions: Thank you for calling [facility], your call will be returned within the next business day. Minh Mosqueda [facility] 04-05-2024 Telephone encounter Note CareEverywhere reviewed Patient reported right ear pain with associated symptoms of rhinorrhea Was prescribed low dose prednisone by Urgent Care/ENT ER note 03/24/24 reports suspected vertigo given that symptoms improved after antivert Recommend continuing ENT and vestibular therapy plan Nish Chavez APRN.STACIA April 05, 2024 12:24 PM [facility] 04-05-2024 Miscellaneous Notes NurysEvercoretta reviewed Patient reported right ear pain with associated symptoms of rhinorrhea Was prescribed low dose prednisone by Urgent Care/ENT ER note 03/24/24 reports suspected vertigo given that symptoms improved after antivert Recommend continuing ENT and vestibular therapy plan Nish Chavez APRN.CNP April 05, 2024 12:24 PM Drew/Dania patient Dx - neurological symptoms undergoing eval Last appt was an office visit on 12/02/[address] Dickson to review diagnostic results and discuss implications Plan - MS ruled out, Vit B12 supplements, Vit D supplements, f/u PCP/OB, referral to the movement disorders clinic, no need to return to [place] Per [facility] message patient has been having severe vertigo since 03/23/24 Has tried ENG, ER, and PT with no relief Also having shooting pain in her arms and thigh Note says no [facility] follow up needed Are these symptoms that the movement disorders clinic can manage? Patient sees Dr Glenn Crook in neurology documented in this encounter [facility] 04-05-2024 Telephone encounter Note Drew/Dania patient Dx - neurological symptoms undergoing eval Last appt was an office visit on 12/02/[address] Dickson to review diagnostic results and discuss implications Plan - MS ruled out, Vit B12 supplements, Vit D supplements, f/u PCP/OB, referral to the movement disorders clinic, no need to return to [place] Per [facility] message patient has been having severe vertigo since 03/23/24 Has tried ENG, ER, and PT with no relief Also having shooting pain in her arms and thigh Note says no [facility] follow up needed Are these symptoms that the movement disorders clinic can manage? Patient sees Dr Glenn Crook in neurology [facility] 03-22-2024 Telephone encounter Note Pharmacy called asking for clarification on order. Pended and routed to provider for review. [facility] 03-22-2024 Miscellaneous Notes Pharmacy called asking for clarification on order. Pended and routed to provider for review. Physician: Dr Elizabeth Call from pharmacy requesting refill. Please E-Scribe Last OV: 01/25/24 with Glenn Future OV: 05/11/24 with Glenn Requested Prescriptions Pending Prescriptions Disp Refills zonisamide (ZONEGRAN) 100 mg capsule [Pharmacy Med Name: ZONISAMIDE 100 MG CAPSULE] 90 capsule 11 Sig: TAKE 1 CAPSULE BY MOUTH IN THE MORNING Pharmacy Name: [facility] Pharmacy Phone #: [phone] Lorena Nassar documented in this encounter [facility] 03-22-2024 Telephone encounter Note Physician: Dr Elizabeth Call from pharmacy requesting refill. Please E-Scribe Last OV: 01/25/24 with Glenn Future OV: 05/11/24 with Glenn Requested Prescriptions Pending Prescriptions Disp Refills zonisamide (ZONEGRAN) 100 mg capsule [Pharmacy Med Name: ZONISAMIDE 100 MG CAPSULE] 90 capsule 11 Sig: TAKE 1 CAPSULE BY MOUTH IN THE MORNING Pharmacy Name: [facility] Pharmacy Phone #: [phone] Lorena Nassar [facility] 03-19-2024 Telephone encounter Note Forwarded to provider. [facility] Work Phone: 03-19-2024 Miscellaneous Notes Forwarded to provider. documented in this encounter [facility] 02-15-2024 Telephone encounter Note Mychart message routed to provider [facility] 02-15-2024 Miscellaneous Notes Mychart message routed to provider Mychart message routed to provider for review. documented in this encounter [facility] 02-14-2024 Telephone encounter Note Mychart message routed to provider for review. [facility] 02-08-2024 Telephone encounter Note This nurse attempted to call the patient back and left a general voicemail with our phone number from an unidentified number. Sent MCM as well. Jennifer Cavazos RN [facility] 02-08-2024 Miscellaneous Notes This nurse attempted to call the patient back and left a general voicemail with our phone number from an unidentified number. Sent MCM as well. Jennifer Cavazos RN Call received for Liz Connolly MD regarding Lynette Hairston 1975. Caller: Self Patient Identified by Name and : Yes Was permission obtained from patient ? Yes Reason for Call: Other: Patient is requesting to have a nurse contact her about the skin biopsy she had yesterday. She attempted to speak with the office but the call kept dropping. Last Office Visit: Visit date not found Next scheduled appointment: Visit date not found Best number to reach caller: [phone] Best time to reach caller: Anytime Is it OK to leave a detailed voice message? Yes Evette Oreilly documented in this encounter [facility] 02-08-2024 Telephone encounter Note Call received for Liz Connolly MD regarding Lynette Hairston 1975. Caller: Self Patient Identified by Name and : Yes Was permission obtained from patient ? Yes Reason for Call: Other: Patient is requesting to have a nurse contact her about the skin biopsy she had yesterday. She attempted to speak with the office but the call kept dropping. Last Office Visit: Visit date not found Next scheduled appointment: Visit date not found Best number to reach caller: [phone] Best time to reach caller: Anytime Is it OK to leave a detailed voice message? Yes Evette Oreilly [facility] 02-07-2024 Note HNO ID: [id number] Author: JACKELYN MURCIA APRN.MANAGER MISSION Service: ? Author Type: Nurse Practitioner Type: Progress Notes Filed: 02/07/2024 13:01 Note Text: Skin Biopsy Procedure Note Skin Biopsy Accession Number: [id number] Biopsy Date: 02/07/2024 Referring physician: Danita Bob DO UNIVERSAL PROTOCOL / SAFETY CHECKLIST Procedure to be Performed: skin biopsy Sign In: A Moment of CARE was completed. Personnel directly involved with the procedure wore the appropriate PPE (Personal Protective Equipment). Patient/Surrogate Stated/Verified: PATIENT VERIFIED(optional for EMERGENT procedures): Patient name, Date of , Relevant allergies, and The intended procedure Time Out Communication: Intended patient and procedure match the source documents. Consent documented and matches the intended procedure. Sign Out: SIGN OUT (optional for EMERGENT procedures): All specimen containers correctly labeled. RAHUL Mistry APRN.MANAGER MISSION Sign in Pt ID verified with patient. Yes, by name and date. Is patient allergic to lidocaine, epinephrine, or bandage adhesive: No Is patient on anticoagulant medicine or blood thinners: No Does patient have a history of surgery on legs or feet: No Procedure verified with the patient: Yes, left leg biopsies, 2 sites. History 48 year old female with symptoms of pins and needles crawling sensation for 2 years is referred for skin biopsy to evaluate for possible small fiber neuropathy. Written aftercare was given and explained: Yes Patient verbally agrees to proceed with the procedure. Sign in completed: Yes Procedure Note Procedure confirmed with provider and administrative support technician. Yes, left leg 2 skin biopsies. The procedure was discussed with the patient, including the risks, benefits, instruments and personnel involved in this procedure. All of the patient?s questions were answered. Informed consent discussed and signed: Yes Audible time-out documented: Yes Procedure Start Time: 12:57 Procedure: After the patient was placed in a lateral position the following biopsy sites were identified: left distal leg and left distal thigh. These sites were cleansed with Chloroprep and injected with 0.5cc 1% Lidocaine. Two skin biopsies were obtained using a 3mm biopsy punch and removed with the forceps and surgical blade technique. Bleeding was minimal and hemostasis was obtained by pressure. Sterile dressing was applied to each biopsy site. Audible sign out completed: All specimens labeled, no equipment issues. Procedure End Time: 1:01 Patient tolerated procedure well, without complications. Patient was discharged home. Specimens were labeled and sent to [facility]. Procedure was performed by: Jackelyn Murcia APRN.MANAGER MISSION Assistance in supply/equipment preparation performed by: RAHUL Mistry Sign out is complete. [facility] 02-07-2024 History of Present illness Narrative Skin Biopsy Procedure Note Skin Biopsy Accession Number: [id number] Biopsy Date: 02/07/2024 Referring physician: Danita Bob DO UNIVERSAL PROTOCOL / SAFETY CHECKLIST Procedure to be Performed: skin biopsy Sign In: A Moment of CARE was completed. Personnel directly involved with the procedure wore the appropriate PPE (Personal Protective Equipment). Patient/Surrogate Stated/Verified: PATIENT VERIFIED(optional for EMERGENT procedures): Patient name, Date of , Relevant allergies, and The intended procedure Time Out Communication: Intended patient and procedure match the source documents. Consent documented and matches the intended procedure. Sign Out: SIGN OUT (optional for EMERGENT procedures): All specimen containers correctly labeled. RAHUL Mistry APRN.STACIA Sign in Pt ID verified with patient. Yes, by name and date. Is patient allergic to lidocaine, epinephrine, or bandage adhesive: No Is patient on anticoagulant medicine or blood thinners: No Does patient have a history of surgery on legs or feet: No Procedure verified with the patient: Yes, left leg biopsies, 2 sites. History 48 year old female with symptoms of pins and needles crawling sensation for 2 years is referred for skin biopsy to evaluate for possible small fiber neuropathy. Written aftercare was given and explained: Yes Patient verbally agrees to proceed with the procedure. Sign in completed: Yes Procedure Note Procedure confirmed with provider and administrative support technician. Yes, left leg 2 skin biopsies. The procedure was discussed with the patient, including the risks, benefits, instruments and personnel involved in this procedure. All of the patient s questions were answered. Informed consent discussed and signed: Yes Audible time-out documented: Yes Procedure Start Time: 12:57 Procedure: After the patient was placed in a lateral position the following biopsy sites were identified: left distal leg and left distal thigh. These sites were cleansed with Chloroprep and injected with 0.5cc 1% Lidocaine. Two skin biopsies were obtained using a 3mm biopsy punch and removed with the forceps and surgical blade technique. Bleeding was minimal and hemostasis was obtained by pressure. Sterile dressing was applied to each biopsy site. Audible sign out completed: All specimens labeled, no equipment issues. Procedure End Time: 1:01 Patient tolerated procedure well, without complications. Patient was discharged home. Specimens were labeled and sent to [facility]. Procedure was performed by: Jackelyn Murcia APRN.MANAGER MISSION Assistance in supply/equipment preparation performed by: RAHUL Mistry Sign out is complete. documented in this encounter [facility] 02-01-2024 Note HNO ID: [id number] Author: DANITA BOB DO Service: ? Author Type: Physician Type: Progress Notes Filed: 02/01/2024 16:14 Note Text: [facility] 02-01-2024 History of Present illness Narrative documented in this encounter [facility] 01-27-2024 History of Present illness Narrative Lynette Prince is a 48 year old female who presents for follow up: for RA LABS RF+,>650, elevated aldolase levels,slightly increased sed rate and crp EMG of rt upper and lower extremities- normal PREVIOUS DIAG myalgias- h/o FM - diagnosed in 2009, chronic back pain RA and 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- elevated aldolase and complaints of weakness pleurisy gastropresis Thoracic Outlet syndrome Lowered GFR with cloud urine- due to see nephrology INTERVAL HISTORY since last visit,has chronic aches and pains Pain in both hips today All joints and muscles hurt Stiffness is worsening No red hot swollen joints per say No rash, ulcers, fevers, swollen lymph nodes, [...] started on 11/11- feels it is helping Cymbalta- causes goose bumps Currently on Enbrel and plaquenil bid Arava- low dose - started on 02/14 REVIEW OF SYSTEMS PAST MEDICAL HISTORY Diagnosis Date Fibromyalgia Hypothyroidism Migraines MARINE (obstructive sleep apnea) POTS (postural orthostatic tachycardia syndrome) Restless leg syndrome Rheumatoid arthritis (HCC) No past surgical history on file. ergocalciferol 50,000 unit capsule (VITAMIN D2, DRISDOL) TAKE 1 CAPSULE BY MOUTH ONE TIME A WEEK. Etanercept (ENBREL) 50 mg/mL (1 mL) injection INJECT 50 MG UNDER THE SKIN WEEKLY rosuvastatin (CRESTOR) 20 mg tablet SUMAtriptan (IMITREX) 100 mg tablet zonisamide (ZONEGRAN) 100 mg capsule TAKE 1 CAPSULE (100 MG TOTAL) BY MOUTH EVERY MORNING AND 2 CAPSULES (200 MG TOTAL) NIGHTLY. metoprolol tartrate, short acting, (LOPRESSOR) 25 mg tablet Take 12.5 mg by mouth once daily. omeprazole (PRILOSEC) 40 mg capsule Take 40 mg by mouth once daily. ibuprofen (MOTRIN) 800 mg tablet Take 800 mg by mouth as needed. ARIPiprazole (ABILIFY) 2 mg tablet Take 2 mg by mouth once daily. busPIRone (BUSPAR) 10 mg tablet Take 10 mg by mouth three times daily. COMPOUNDED PRESCRIPTION Handicapped placard Diagnosis- RA Cannot walk >200 ft Duration- 3 yrs sertraline (ZOLOFT) 100 mg tablet Take 100 mg by mouth once daily. ondansetron (ZOFRAN) 4 mg tablet Take 1 tablet by mouth every 12 hours as needed. FAMILY HISTORY Problem Relation Age of Onset Systemic Lupus Erythematosus Mother Systemic Lupus Erythematosus Daughter Social History Tobacco Use Smoking status: Never Smokeless tobacco: Never Substance Use Topics Alcohol use: Yes Comment: Occasional Drug use: Never BP 135/86 Pulse 101 Ht 167.6 cm (5' 6 ) Wt 116.2 kg (256 lb 2.8 oz) BMI 41.35 kg/m PE; ambulates well, pelasent mood Appears to be in no distress, very pleasant Pain on palpation of all joints No synovitis noted MOST RECENT LABS: REVIEWED WITH PATIENT IMP/PLAN: RA/FM- feels arthralgias and em stiffness are wrosening Now pain of both hips and top of thighs Rash on face still present, stopped plaquenil but rash persists -will continue to stay off plaquenil, stopped due to rash of face -continue Enbrel -start low dose arava at 5mg po every day she has worsening arthralgias and stiffness Bilateral hip pain - chronic bursitis, given CS injection and helped for a few days Lowered GFR and cloudy urine -under care of nephrology, work up in progress -avoid nsaids for now F/U in 6m Noemi Pham MD F/U: 6m Check following: -none Noemi Pham MD documented in this encounter [facility] 01-27-2024 Note HNO ID: [id number] Author: NOEMI PHAM MD Service: ? Author Type: Physician Type: Progress Notes Filed: 01/27/2024 11:50 Note Text: Lynette Prince is a 48 year old female who presents for follow up: for RA LABS RF+,>650, elevated aldolase levels,slightly increased sed rate and crp EMG of rt upper and lower extremities- normal PREVIOUS DIAG myalgias- h/o FM - diagnosed in 2009, chronic back pain RA and 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- elevated aldolase and complaints of weakness pleurisy gastropresis Thoracic Outlet syndrome Lowered GFR with cloud urine- due to see nephrology INTERVAL HISTORY since last visit,has chronic aches and pains Pain in both hips today All joints and muscles hurt Stiffness is worsening No red hot swollen joints per say No rash, ulcers, fevers, swollen lymph nodes, [...] started on 11/11- feels it is helping Cymbalta- causes goose bumps Currently on Enbrel and plaquenil bid Arava- low dose - started on 02/14 REVIEW OF SYSTEMS PAST MEDICAL HISTORY Diagnosis Date Fibromyalgia Hypothyroidism Migraines MARINE (obstructive sleep apnea) POTS (postural orthostatic tachycardia syndrome) Restless leg syndrome Rheumatoid arthritis (HCC) No past surgical history on file. ergocalciferol 50,000 unit capsule (VITAMIN D2, DRISDOL) TAKE 1 CAPSULE BY MOUTH ONE TIME A WEEK. Etanercept (ENBREL) 50 mg/mL (1 mL) injection INJECT 50 MG UNDER THE SKIN WEEKLY rosuvastatin (CRESTOR) 20 mg tablet SUMAtriptan (IMITREX) 100 mg tablet zonisamide (ZONEGRAN) 100 mg capsule TAKE 1 CAPSULE (100 MG TOTAL) BY MOUTH EVERY MORNING AND 2 CAPSULES (200 MG TOTAL) NIGHTLY. metoprolol tartrate, short acting, (LOPRESSOR) 25 mg tablet Take 12.5 mg by mouth once daily. omeprazole (PRILOSEC) 40 mg capsule Take 40 mg by mouth once daily. ibuprofen (MOTRIN) 800 mg tablet Take 800 mg by mouth as needed. ARIPiprazole (ABILIFY) 2 mg tablet Take 2 mg by mouth once daily. busPIRone (BUSPAR) 10 mg tablet Take 10 mg by mouth three times daily. COMPOUNDED PRESCRIPTION Handicapped placard Diagnosis- RA Cannot walk >200 ft Duration- 3 yrs sertraline (ZOLOFT) 100 mg tablet Take 100 mg by mouth once daily. ondansetron (ZOFRAN) 4 mg tablet Take 1 tablet by mouth every 12 hours as needed. FAMILY HISTORY Problem Relation Age of Onset Systemic Lupus Erythematosus Mother Systemic Lupus Erythematosus Daughter Social History Tobacco Use Smoking status: Never Smokeless tobacco: Never Substance Use Topics Alcohol use: Yes Comment: Occasional Drug use: Never BP 135/86 Pulse 101 Ht 167.6 cm (5' 6 ) Wt 116.2 kg (256 lb 2.8 oz) BMI 41.35 kg/m? PE; ambulates well, pelasent mood Appears to be in no distress, very pleasant Pain on palpation of all joints No synovitis noted MOST RECENT LABS: REVIEWED WITH PATIENT IMP/PLAN: RA/FM- feels arthralgias and em stiffness are wrosening Now pain of both hips and top of thighs Rash on face still present, stopped plaquenil but rash persists -will continue to stay off plaquenil, stopped due to rash of face -continue Enbrel -start low dose arava at 5mg po every day she has worsening arthralgias and stiffness Bilateral hip pain - chronic bursitis, given CS injection and helped for a few days Lowered GFR and cloudy urine -under care of nephrology, work up in progress -avoid nsaids for now F/U in 6m Noemi Pham MD F/U: 6m Check following: -none Noemi Pham MD [facility] 01-25-2024 Instructions Danita Bob DO - 01/25/2024 8:52 AM EDT You were seen by Dr. Glenn Crook for abnormal movements. 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 Less likely would be a tardive dyskinesia from Abilify use. Medications can be tried but most can be sedating. These include gabapentin and clonazepam. Continue zonisamide for the headaches. I will let you know about the small fiber nerve biopsy. If negative, the tingling is likely FM. Follow-up in three months. You can do virtual visit. Do lab work for spasms. documented in this encounter [facility] 01-25-2024 Note HNO ID: [id number] Author: TOÑITO BLANCO MA Service: ? Author Type: City Driver Type: Progress Notes Filed: 01/27/2024 12:40 Note Text: [facility] 01-25-2024 Note HNO ID: [id number] Author: DANITA BOB DO Service: ? Author Type: Physician Type: Progress Notes Filed: 01/27/2024 12:40 Note Text: [facility] New Patient Evaluation Consulting Provider: Brett Dickson [address] [place] [id number] Individuals who were included in, or assisted with the encounter were: Lynette Hairston Danita Crook DO Chief Complaint/Issues: Lynette Hairston is a 48 year old female seen in the [facility] for: Abnormal movements HPI: Ms. Hairston is a 48 year old woman PMHx including insulin resistance syndrome, migraines, fibromyalgia presenting for abnormal toe movements, referred by [facility]. Dickson at the [facility]. She gets spasms in her muscles that she is used to nowadays, although can get spreading of the toes that causes pain. In the last two months she notices wiggling movements in her toes, involuntary, might be able to stop it at times if she is paying attention. Getting out of a pool going up the ladder her toes crmaps up like renetta horse. Denies burning pain, but gets cramping pain regularly. The other day her left thumb was twitching at work intermittently at rest. She had not leaned on it or used heavy weights. She has been on Abilify for years for depression, about 7 years. She denies dysphagia. She was worked up for MS due to multiple complaints, neuroaxis MRI was negative for demyelination. She would get blurred vision every so often staring at the computer screen. This has not happened in a month. Hard to get dressed. Has FM, RA She gets migraines, uses zonisamide. These are well controlled. She feels like things are crawling on her, tingling. Her face gets blotchy. No skin color changes of hands or feet. She was given baclofen but knocked her out. She is seeing a applied marine physics professor today for trouble breathing. She denies creepy crawly sensation in her legs that is relieved with activity. Can get shooting pains in all extremities. Her memory is bad, hard for job. Has sleep apnea. Has not been able to tolerate mask for two years. She is working up [email or web address]. She does not smoke. Drinks alcohol occasionally, but makes her feel bad so this is rare. Headaches ar well controlled. Denies numbness. Has some walking issues due to hip pain, had cortisol injection for bursitis. General Examination: There were no vitals taken for this visit. General: Awake, alert, interactive, no acute distress, good nutritional status, normal development, well-kept Skin: Rash: absent Pigmentation: absent HEENT: Head: normocephalic, no dysmorphism Eyes: normal Oropharynx: normal Extremities: Edema: absent Trophic change: absent Heart: RRR, no cyanosis Lungs: Chest rise symmetrical Neurological Exam Mental Status Alert, fully oriented, attentive, with normal cognition, memory, speech and affect. Cranial Nerves Visual mehta intact. Fundi with normal discs and vasculature. Pupils reactive. Extraocular movements conjugate and full. No ptosis. No nystagmus. Facial sensation intact. Face symmetric and strong. Palate and tongue normal. XI normal. Motor Examination and Coordination Motor examination with normal bulk, strength and tone. No drift. Normal rapid alternating movements and coordination. No adventitious movements or significant tremor. Reflexes Deep tendon reflexes graded by [facility] Deep Tendon Reflexes Right Left Biceps 2+ 2+ Brachioradialis 2+ 2+ Patellar 2+ 2+ Achilles 2+ 2+ Sensation Sensation intact to light touch Gait Antalgic gait Assessment AND Plan 01/27/2024 - General Neurology, Danita Crook DO ASSESSMENT Ms. 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 She also reports paraesthesias of the skin. 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 This can be difficult to treat, often gabapentin or clonazepam tried. Paraesthesias likely related to her FM, will ask NM about how to order small fiber biopsy. Movements not bothersome enough right now for her to risk side effects of medications. PLAN Possible small fiber nerve biopsy DREW 65, vitamin levels Future considerations for her multiple symptoms/migraines amitriptyline, though zonisamide is controlling headaches right now. RTC 3 months Encounter Diagnosis ICD-10-CM 1. Abnormal involuntary movement R25.9 No follow-ups on file. Data Review Objective Current Outpatient Medications Medication Sig ergocalciferol 50,000 unit capsule (VITAMIN D2, DRISDOL) TAKE 1 CAPSULE BY MOUTH ONE TIME A WEEK. Etanercept (ENBREL) 50 mg/mL (1 mL) injection INJECT 50 MG UNDER THE SKIN WEEKLY baclofen 5 mg tablet Take 1 tablet by mouth three times a day as needed. rOPINIR (more content not included)... [facility] 01-25-2024 History of Present illness Narrative Images from the original note were not included. [facility] New Patient Evaluation Consulting Provider: Brett Dickson [id number] [facility] [id number] Individuals who were included in, or assisted with the encounter were: Lynette Hairston Danita Crook DO Chief Complaint/Issues: Lynette Hairston is a 48 year old female seen in the [facility] for: Abnormal movements HPI: Ms. Hairston is a 48 year old woman PMHx including insulin resistance syndrome, migraines, fibromyalgia presenting for abnormal toe movements, referred by Dr. Dickson at the [facility]. She gets spasms in her muscles that she is used to nowadays, although can get spreading of the toes that causes pain. In the last two months she notices wiggling movements in her toes, involuntary, might be able to stop it at times if she is paying attention. Getting out of a pool going up the ladder her toes crmaps up like renetta horse. Denies burning pain, but gets cramping pain regularly. The other day her left thumb was twitching at work intermittently at rest. She had not leaned on it or used heavy weights. She has been on Abilify for years for depression, about 7 years. She denies dysphagia. She was worked up for MS due to multiple complaints, neuroaxis MRI was negative for demyelination. She would get blurred vision every so often staring at the computer screen. This has not happened in a month. Hard to get dressed. Has FM, RA She gets migraines, uses zonisamide. These are well controlled. She feels like things are crawling on her, tingling. Her face gets blotchy. No skin color changes of hands or feet. She was given baclofen but knocked her out. She is seeing a applied marine physics professor today for trouble breathing. She denies creepy crawly sensation in her legs that is relieved with activity. Can get shooting pains in all extremities. Her memory is bad, hard for job. Has sleep apnea. Has not been able to tolerate mask for two years. She is working up [email or web address]. She does not smoke. Drinks alcohol occasionally, but makes her feel bad so this is rare. Headaches ar well controlled. Denies numbness. Has some walking issues due to hip pain, had cortisol injection for bursitis. General Examination: There were no vitals taken for this visit. General: Awake, alert, interactive, no acute distress, good nutritional status, normal development, well-kept Skin: Rash: absent Pigmentation: absent HEENT: Head: normocephalic, no dysmorphism Eyes: normal Oropharynx: normal Extremities: Edema: absent Trophic change: absent Heart: RRR, no cyanosis Lungs: Chest rise symmetrical Neurological Exam Mental Status Alert, fully oriented, attentive, with normal cognition, memory, speech and affect. Cranial Nerves Visual mehta intact. Fundi with normal discs and vasculature. Pupils reactive. Extraocular movements conjugate and full. No ptosis. No nystagmus. Facial sensation intact. Face symmetric and strong. Palate and tongue normal. XI normal. Motor Examination and Coordination Motor examination with normal bulk, strength and tone. No drift. Normal rapid alternating movements and coordination. No adventitious movements or significant tremor. Reflexes Deep tendon reflexes graded by MRC Deep Tendon Reflexes Right Left Biceps 2+ 2+ Brachioradialis 2+ 2+ Patellar 2+ 2+ Achilles 2+ 2+ Sensation Sensation intact to light touch Gait Antalgic gait Assessment & Plan 01/27/2024 - General Neurology, Danita Crook, DO ASSESSMENT Ms. 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 She also reports paraesthesias of the skin. 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 This can be difficult to treat, often gabapentin or clonazepam tried. Paraesthesias likely related to her FM, will ask NM about how to order small fiber biopsy. Movements not bothersome enough right now for her to risk side effects of medications. PLAN Possible small fiber nerve biopsy DREW 65, vitamin levels Future considerations for her multiple symptoms/migraines amitriptyline, though zonisamide is controlling headaches right now. RTC 3 months Encounter Diagnosis ICD-10-CM 1. Abnormal involuntary movement R25.9 No follow-ups on file. Data Review Objective Current Outpatient Medications Medication Sig ergocalciferol 50,000 unit capsule (VITAMIN D2, DRISDOL) TAKE 1 CAPSULE BY MOUTH ONE TIME A WEEK. Etanercept (ENBREL) 50 mg/mL (1 mL) injection INJECT 50 MG UNDER THE SKIN WEEKLY baclofen 5 mg tablet Take 1 tablet by mouth three times a day as needed. rOPINIRole (REQUIP) 0.25 mg tablet rosuvastatin (CRESTOR) 20 mg tablet SUMAtriptan (IMITREX) 100 mg tablet zonisamide (ZONEGRAN) 100 mg capsule TAKE 1 CAPSULE (100 MG TOTAL) BY MOUTH EVERY MORNING AND 2 CAPSULES (200 MG TOTAL) NIGHTLY. ondansetron (ZOFRAN) 4 mg tablet TAKE 1 TABLET BY MOUTH EVERY 12 HOURS NEEDED metoprolol tartrate, short acting, (LOPRESSOR) 25 mg tablet Take 12.5 mg by mouth once daily. omeprazole (PRILOSEC) 40 mg capsule Take 40 mg by mouth once daily. ibuprofen (MOTRIN) 800 mg tablet Take 800 mg by mouth as needed. ARIPiprazole (ABILIFY) 2 mg tablet Take 2 mg by mouth once daily. busPIRone (BUSPAR) 10 mg tablet Take 10 mg by mouth three times daily. COMPOUNDED PRESCRIPTION Handicapped placard Diagnosis- RA Cannot walk >200 ft Duration- 3 yrs sertraline (ZOLOFT) 100 mg tablet Take 100 mg by mouth once daily. No current facility-administered medications for this visit. ACTIVE PROBLEM LIST Obesity, Class I, Bmi 30-34.9 Fatigue Sleep Disturbances Transient Diplopia Daytime Sleepiness Vitamin D Deficiency Myalgia Benign Fasciculations Myofascial Pain Dysfunction Syndrome Intractable Migraine Equivalent Muscle Twitching Non-Restorative Sleep Marine (Obstructive Sleep Apnea) History of Vitamin D Deficiency History of Hypothyroidism Joint Swelling Polyarthralgia Recent Skin Changes Vision Disturbance Disturbance of Skin Sensation Alteration in Bowel and Bladder Function Abnormal Involuntary Movement Restless Legs Obesity, Class III, BMI >= 40 PAST MEDICAL HISTORY Diagnosis Date Fibromyalgia Hypothyroidism Migraines MARINE (obstructive sleep apnea) POTS (postural orthostatic tachycardia syndrome) Restless leg syndrome Rheumatoid arthritis (HCC) No past surgical history on file. Social History Tobacco Use Smoking status: Never Smokeless tobacco: Never Substance Use Topics Alcohol use: Yes Comment: Occasional Drug use: Never FAMILY HISTORY Problem Relation Age of Onset Systemic Lupus Erythematosus Mother Systemic Lupus Erythematosus Daughter Review of Systems Lab and Test Review: No significant findings on reports of MRI brain, C, T spine TSH normal B12 344 Subjective Patient-Entered Data: 01/25/24 - GENERAL NEUROLOGY SCORES 07/30/2020 03/19/2021 PROMIS 10 Health, in general Good Good Quality of life, in general Good Good Physical health, in general Good Fair Mental health, in general Good Good Social activities satisfaction Good Good Performing ADL's Completely Mostly Social role satisfaction Good Good Pain, on average 3 5 Fatigue, on average Moderate Moderate Emotional problems Sometimes Often PHYSICAL Score 47.7 (Good) 39.8 (Fair) MENTAL Score 43.5 (Good) 41.1 (Good) 08/29/2019 07/30/2020 03/19/2021 Depression Screening PHQ-2 Score 2 0 1 PHQ-9 Score 5 DREW-2 Total Score 3 DREW-7 Total Score 8 No data to display No data to display No data to display I spent a total of 60 minutes on the date of the service which included preparing to see the patient, [id number] patient care, completing clinical documentation, obtaining and/or reviewing separately obtained history, performing a medically appropriate examination, counseling and educating the patient/family/caregiver, and ordering medications, tests, or procedures. Danita Crook DO documented in this encounter [facility] 01-23-2024 Telephone encounter Note The following approved medication requests have been transmitted electronically. Requested Prescriptions Signed Prescriptions Disp Refills ergocalciferol 50,000 unit capsule (VITAMIN D2, DRISDOL) 12 capsule 0 Sig: TAKE 1 CAPSULE BY MOUTH ONE TIME A WEEK. Authorizing Provider: NISH CHAVEZ APRN.CNP [facility] 01-23-2024 Miscellaneous Notes The following approved medication requests have been transmitted electronically. Requested Prescriptions Signed Prescriptions Disp Refills ergocalciferol 50,000 unit capsule (VITAMIN D2, DRISDOL) 12 capsule 0 Sig: TAKE 1 CAPSULE BY MOUTH ONE TIME A WEEK. Authorizing Provider: NISH CHAVEZ APRN.CNP Request 90 days Source : electronic from pharmacy requesting refill. Delivery : e-script Requested Prescriptions Pending Prescriptions Disp Refills ergocalciferol 50,000 unit capsule (VITAMIN D2, DRISDOL) [Pharmacy Med Name: VITAMIN D2 1.25MG(50,000 UNIT)] 12 capsule 3 Sig: TAKE 1 CAPSULE BY MOUTH ONE TIME A WEEK. DX : Patient last seen 12/02/2023 Next Appointment : JUAN Jain documented in this encounter [facility] 01-23-2024 Telephone encounter Note Request 90 days Source : electronic from pharmacy requesting refill. Delivery : e-script Requested Prescriptions Pending Prescriptions Disp Refills ergocalciferol 50,000 unit capsule (VITAMIN D2, DRISDOL) [Pharmacy Med Name: VITAMIN D2 1.25MG(50,000 UNIT)] 12 capsule 3 Sig: TAKE 1 CAPSULE BY MOUTH ONE TIME A WEEK. DX : Patient last seen 12/02/2023 Next Appointment : JUAN Jain [facility] 01-11-2024 Telephone encounter Note The following approved medication requests have been transmitted electronically. Requested Prescriptions Pending Prescriptions Disp Refills Etanercept (ENBREL) 50 mg/mL (1 mL) injection [Pharmacy Med Name: ENBREL 50 MG/ML SYRINGE] 4 mL 5 Sig: INJECT 50 MG UNDER THE SKIN WEEKLY Noemi Pham MD [facility] 01-11-2024 Miscellaneous Notes The following approved medication requests have been transmitted electronically. Requested Prescriptions Pending Prescriptions Disp Refills Etanercept (ENBREL) 50 mg/mL (1 mL) injection [Pharmacy Med Name: ENBREL 50 MG/ML SYRINGE] 4 mL 5 Sig: INJECT 50 MG UNDER THE SKIN WEEKLY Noemi Pham MD Images from the original note were not included. Most recent Rheumatology visit: 06/24/2023 (with Noemi Pham) Rheumatology Care Team: None on file Recent Office Visits - This Specialty 06/24/2023 Pain in joint, multiple sites Rheumatology Noemi Pham MD 01/14/2023 Malar rash Rheumatology Noemi Pham MD 08/11/2022 Rheumatoid arthritis involving multiple sites, unspecified whether rheumatoid factor present (HCC) Rheumatology Noemi Pham MD Upcoming Rheumatology Appointments - Next 365 Days Visit Type Date Time Department [facility] MEDICAL 01/27/2024 9:40 AM [facility] REJ CBC: Latest Ref Rng & Units 08/11/2022 06/24/2023 CBC WBC 3.70 - 11.00 k/uL 9.49 8.95 Hemoglobin 11.5 - 15.5 g/dL 15.2 15.5 Hematocrit 36.0 - 46.0 % 44.1 45.7 Platelet Count 150 - 400 k/uL 205 192 Vitamin D: Latest Ref Rng & Units 02/15/2018 11/17/2023 Vitamin D Vitamin D 25 Hydroxy 31.0 - 80.0 ng/mL 29.0 15.3 LFT: Latest Ref Rng & Units 08/11/2022 06/24/2023 CMP Sodium 136 - 144 mmol/L 140 140 Potassium 3.7 - 5.1 mmol/L 4.7 4.2 Chloride 97 - 105 mmol/L 102 105 CO2 22 - 30 mmol/L 29 27 Glucose 74 - 99 mg/dL 97 94 BUN 7 - 21 mg/dL 15 12 Creatinine 0.58 - 0.96 mg/dL 0.93 1.10 Calcium 8.5 - 10.2 mg/dL 10.5 9.5 AST 13 - 35 U/L 26 39 ALT 7 - 38 U/L 32 46 Alkaline Phosphatase 34 - 123 U/L 44 46 Hepatic Function: Creatinine: None on file in the last 6 months ESR/CRP: Latest Ref Rng & Units 06/24/2023 11/17/2023 ESR, WSR WSR 0 - 20 mm/hr 23 25 Latest Ref Rng & Units 06/24/2023 11/17/2023 CRP CRP <0.9 mg/dL 0.6 0.7 Uric Acid: None on file in the last 6 months Open Standing (Multiple Instance) Lab Orders None Open Future (Single Instance) Lab Orders None documented in this encounter [facility] 01-09-2024 Telephone encounter Note Images from the original note were not included. Most recent Rheumatology visit: 06/24/2023 (with Noemi Pham) Rheumatology Care Team: None on file Recent Office Visits - This Specialty 06/24/2023 Pain in joint, multiple sites Rheumatology Noemi Pham MD 01/14/2023 Malar rash Rheumatology Noemi Pham MD 08/11/2022 Rheumatoid arthritis involving multiple sites, unspecified whether rheumatoid factor present (HCC) Rheumatology Noemi Pham MD Upcoming Rheumatology Appointments - Next 365 Days Visit Type Date Time Department [facility] 01/27/2024 9:40 AM [facility] REJ CBC: Latest Ref Rng & Units 08/11/2022 06/24/2023 CBC WBC 3.70 - 11.00 k/uL 9.49 8.95 Hemoglobin 11.5 - 15.5 g/dL 15.2 15.5 Hematocrit 36.0 - 46.0 % 44.1 45.7 Platelet Count 150 - 400 k/uL 205 192 Vitamin D: Latest Ref Rng & Units 02/15/2018 11/17/2023 Vitamin D Vitamin D 25 Hydroxy 31.0 - 80.0 ng/mL 29.0 15.3 LFT: Latest Ref Rng & Units 08/11/2022 06/24/2023 CMP Sodium 136 - 144 mmol/L 140 140 Potassium 3.7 - 5.1 mmol/L 4.7 4.2 Chloride 97 - 105 mmol/L 102 105 CO2 22 - 30 mmol/L 29 27 Glucose 74 - 99 mg/dL 97 94 BUN 7 - 21 mg/dL 15 12 Creatinine 0.58 - 0.96 mg/dL 0.93 1.10 Calcium 8.5 - 10.2 mg/dL 10.5 9.5 AST 13 - 35 U/L 26 39 ALT 7 - 38 U/L 32 46 Alkaline Phosphatase 34 - 123 U/L 44 46 Hepatic Function: Creatinine: None on file in the last 6 months ESR/CRP: Latest Ref Rng & Units 06/24/2023 11/17/2023 ESR, WSR WSR 0 - 20 mm/hr 23 25 Latest Ref Rng & Units 06/24/2023 11/17/2023 CRP CRP <0.9 mg/dL 0.6 0.7 Uric Acid: None on file in the last 6 months Open Standing (Multiple Instance) Lab Orders None Open Future (Single Instance) Lab Orders None [facility] 12-02-2023 Instructions Brett Dickson MD - 12/02/2023 4:13 PM EDT It was a pleasure to see back today. This is not MS which is great. Your low vitamin D and vitamin B12 may be contributing. You started vitamin D replacement already. For vitamin B12 I want you to take 1000mcg daily for 3 months. I also want you to see a movement disorders neurologist for this trouble with L side always moving around extra on you. This could be some kind of dystonia or hyperkinetic movement disorder for which movement disorders doctors are the experts in evaluation. Also your hormone levels may be off- we checked one, cortisol which was too low. Also you turn red which could be a hormone issue. Discuss this with your primary care doctor and/ or OBGYN. documented in this encounter [facility] 12-02-2023 History of Present illness Narrative Images from the original note were not included. [facility] FOLLOWUP/ESTABLISHED PATIENT VISIT PRINCIPAL NEUROLOGIC DIAGNOSIS: Neurological symptoms undergoing evaluation DISEASE SUMMARY Date of onset: ?2021 Date of diagnosis of MS: n/a Disease course at onset: Relapsing-Remitting Current disease course: Relapsing-Remitting Previous disease therapies: None Current disease therapy: None Most recent MRI brain: 11/30/23 Most recent MRI cervical spine: 11/28/23 Most recent MRI thoracic spine: 11/28/23 CSF: Not done JCV serology result and date: n/a CDS1: 11/17/23 negative CHIEF COMPLAINT: Review diagnostic testing results and discuss implications INTERVAL HISTORY: She is having worsening movements of her LLE- its happening much of the day now. She is also having blurry vision from the L eye today. In terms of her headaches it can be top of her head, unilateral, or other. It is mostly sharp pain. She is sensitive to lights but not sounds. Sometimes she gets nausea. She often gets them in the morning but also afternoon. She has not noticed positional changes. She adds to her history several years ago she had an episode horrible vertigo spell lasting about 5 mins in the past and an episode of diplopia lasting a few mins. She also gets episodes of the face turning red usually just on one side- show me a picture. Usual treating team: Drew/Dania The patient is unaccompanied. The patient was last seen 11/17/23, currently taking Not on DMT. Since the patient's last visit the patient reports overall feeling worse. Neuro-QoL Functions (higher=better functioning) Flowsheet [facility] Office Visit from 11/17/[address] [facility] Upper Extremity Domain T Score 43.97 Lower Extremity Domain T Score 40.08 Cognitive Function Domain T Score 42.85 Positive Affect Well Being T Score -- Ability To Participate In Social Roles T Score 39.59 Satisfaction With Social Roles T Score 35.47 Neuro-QoL Symptoms (higher=worse symptoms) Flowsheet [facility] Office Visit from 11/17/[address] [facility] Sleep Domain T Score 54.31 Fatigue Domain T Score 60.46 Anxiety Domain T Score 56.44 Depression Domain T Score 46.93 Stigma Domain T Score 57.09 Emotional Behavior Dyscontrol T Score -- has a past medical history of Fibromyalgia, Hypothyroidism, Migraines, MARINE (obstructive sleep apnea), POTS (postural orthostatic tachycardia syndrome), Restless leg syndrome, and Rheumatoid arthritis (HCC). has a current medication list which includes the following prescription(s): ergocalciferol (vitamin d2), baclofen, ropinirole, rosuvastatin, sumatriptan, zonisamide, enbrel, ondansetron, metoprolol tartrate (short acting), omeprazole, ibuprofen, aripiprazole, buspirone, COMPOUNDED PRESCRIPTION, and sertraline. EXAM: BP 142/87 (BP Site: Left Arm, BP Position: Sitting, BP Cuff Size: Large Adult) Pulse 114 Temp 36.4 C (97.5 F) (Temporal) Ht 167.6 cm (5' 6 ) Wt 115.2 kg (253 lb 15.5 oz) SpO2 96% BMI 40.99 kg/m Multiple Sclerosis Performance Test Flowsheet Row Office Visit from 11/17/[address] [facility] Processing Speed Total Number Correct 53 Low-contrast letter acuity test-2.5 percent opacity 30 Low-contrast letter acuity test-100 percent opacity 60 Dominant hand Right hand MDT Left Hand Time 28.46 MDT Right Hand Time 29.82 Walking Speed Test (25 feet) 7.56 General Appearance: well appearing, in no acute distress Mental status evaluation during the interview and examination showed normal level of consciousness, conversational language, and attention during the encounter. Affect: Normal Visual acuity: OD 20/20 OS 20/20 Correction: With contacts Confrontation visual mehta: Intact OU Funduscopic exam: OU disc normal- no edema, or pallor Extraocular movements: full, without SONNY Facial sensation: Intact bilaterally Facial movements: Intact bilaterally Speech: normal Muscle tone: Right arm spasticity: None Right leg spasticity: Mild Left arm spasticity: None Left leg spasticity: Mild Muscle strength (#/5): Right Left Upper Extremity: Deltoids 5 5 Biceps 5 5 Triceps 5 5 Wrist extension 5 5 Finger extension 5 5 Finger flexion 5 5 Dorsal interossei 5 5 Lower extremity: Iliopsoas 5 5 Quadriceps 5 5 Hamstrings 5 5 Tibialis anterior 5 5 Gastrocnemius 5 5 Coordination: Upper extremity dexterity and rapid movements: Normal bilaterally Finger-nose: no dysmetria; coordination intact Heel-celestin: no dysmetria; coordination intact Sensory Perception: Intact to light touch x4 Standard gait: normal. Assistive device: independent Tandem walking: Normal RESULTS: 11/17/23 labs: TSH, T3, T4, LEVY, Copper, CRP, DS-DNA Vitamin B12 low at 344 Vitamin D low at 15.3 MRI Results: 11/30/23 MRI Brain W/WO report- unremarkable ->personally reviewed, agree unremarkable 11/28/23 MRI Cervical and Thoracic Spine report- no intrinsic cord signal abnormality -personally reviewed agree no intrinsic cord signal abnormality ASSESSMENT/PLAN: Ms. Hairston is a 48y/o F who is following up for several years of mostly relapsing-remitting neurological symptoms. We discussed the normal MRIs at this time exclude MS/ primary demyelinating disease and blood work for MS mimics was also negative. Given her most recent and bothersome symptoms being abnormal LLE movements and spams I will refer her movement for continued evaluation. PLAN: -- Start vitamin B12 supplementation -- Start vitamin D supplementation -- Continue discussing possible hormonal abnormalities with PCP/ OBGYN -- Referral to movement disorders neurology -- No need to return to [place] unless new concerns arise for demyelinating disease Office Visit on 12/02/23 CONSULT TO NEUROLOGY The chart was reviewed for possible participation in the following studies:None Patient Health Education Discussed at Visit: Vitamin D supplementation I spent a total of 40 minutes on the date of the service which included preparing to see the patient, [id number] patient care, completing clinical documentation, obtaining and/or reviewing separately obtained history, performing a medically appropriate examination, counseling and educating the patient/family/caregiver, independently interpreting results (not separately reported), and communicating results to the patient/family/caregiver. Brett Dickson MD [facility] documented in this encounter [facility] 12-02-2023 Note HNO ID: [id number] Author: BRETT DICKSON MD Service: ? Author Type: Physician Type: Progress Notes Filed: 12/02/2023 16:42 Note Text: [facility] FOLLOWUP/ESTABLISHED PATIENT VISIT PRINCIPAL NEUROLOGIC DIAGNOSIS: Neurological symptoms undergoing evaluation DISEASE SUMMARY Date of onset: ?2021 Date of diagnosis of MS: n/a Disease course at onset: Relapsing-Remitting Current disease course: Relapsing-Remitting Previous disease therapies: None Current disease therapy: None Most recent MRI brain: 11/30/23 Most recent MRI cervical spine: 11/28/23 Most recent MRI thoracic spine: 11/28/23 CSF: Not done JCV serology result and date: n/a CDS1: 11/17/23 negative CHIEF COMPLAINT: Review diagnostic testing results and discuss implications INTERVAL HISTORY: She is having worsening movements of her LLE- its happening much of the day now. She is also having blurry vision from the L eye today. In terms of her headaches it can be top of her head, unilateral, or other. It is mostly sharp pain. She is sensitive to lights but not sounds. Sometimes she gets nausea. She often gets them in the morning but also afternoon. She has not noticed positional changes. She adds to her history several years ago she had an episode horrible vertigo spell lasting about 5 mins in the past and an episode of diplopia lasting a few mins. She also gets episodes of the face turning red usually just on one side- show me a picture. Usual treating team: Drew/Dania The patient is unaccompanied. The patient was last seen 11/17/23, currently taking Not on DMT. Since the patient's last visit the patient reports overall feeling worse. Neuro-QoL Functions (higher=better functioning) Flowsheet Row Office Visit from 11/17/[address] [facility] Upper Extremity Domain T Score 43.97 Lower Extremity Domain T Score 40.08 Cognitive Function Domain T Score 42.85 Positive Affect Well Being T Score -- Ability To Participate In Social Roles T Score 39.59 Satisfaction With Social Roles T Score 35.47 Neuro-QoL Symptoms (higher=worse symptoms) Flowsheet Row Office Visit from 11/17/[address] [facility] Sleep Domain T Score 54.31 Fatigue Domain T Score 60.46 Anxiety Domain T Score 56.44 Depression Domain T Score 46.93 Stigma Domain T Score 57.09 Emotional Behavior Dyscontrol T Score -- has a past medical history of Fibromyalgia, Hypothyroidism, Migraines, MARINE (obstructive sleep apnea), POTS (postural orthostatic tachycardia syndrome), Restless leg syndrome, and Rheumatoid arthritis (HCC). has a current medication list which includes the following prescription(s): ergocalciferol (vitamin d2), baclofen, ropinirole, rosuvastatin, sumatriptan, zonisamide, enbrel, ondansetron, metoprolol tartrate (short acting), omeprazole, ibuprofen, aripiprazole, buspirone, COMPOUNDED PRESCRIPTION, and sertraline. EXAM: BP 142/87 (BP Site: Left Arm, BP Position: Sitting, BP Cuff Size: Large Adult) Pulse 114 Temp 36.4 ?C (97.5 ?F) (Temporal) Ht 167.6 cm (5' 6 ) Wt 115.2 kg (253 lb 15.5 oz) SpO2 96% BMI 40.99 kg/m? Multiple Sclerosis Performance Test Flowsheet Row Office Visit from 11/17/2023 in [facility] Processing Speed Total Number Correct 53 Low-contrast letter acuity test-2.5 percent opacity 30 Low-contrast letter acuity test-100 percent opacity 60 Dominant hand Right hand MDT Left Hand Time 28.46 MDT Right Hand Time 29.82 Walking Speed Test (25 feet) 7.56 General Appearance: well appearing, in no acute distress Mental status evaluation during the interview and examination showed normal level of consciousness, conversational language, and attention during the encounter. Affect: Normal Visual acuity: OD 20/20 OS 20/20 Correction: With contacts Confrontation visual mehta: Intact OU Funduscopic exam: OU disc normal- no edema, or pallor Extraocular movements: full, without SONNY Facial sensation: Intact bilaterally Facial movements: Intact bilaterally Speech: normal Muscle tone: Right arm spasticity: None Right leg spasticity: Mild Left arm spasticity: None Left leg spasticity: Mild Muscle strength (#/5): Right Left Upper Extremity: Deltoids 5 5 Biceps 5 5 Triceps 5 5 Wrist extension 5 5 Finger extension 5 5 Finger flexion 5 5 Dorsal interossei 5 5 Lower extremity: Iliopsoas 5 5 Quadriceps 5 5 Hamstrings 5 5 Tibialis anterior 5 5 Gastrocnemius 5 5 Coordination: Upper extremity dexterity and rapid movements: Normal bilaterally Finger-nose: no dysmetria; coordination intact Heel-celestin: no dysmetria; coordination intact Sensory Perception: Intact to light touch x4 Standard gait: normal. Assistive device: independent Tandem walking: Normal RESULTS: 11/17/23 labs: TSH, T3, T4, LEVY, Copper, CRP, DS-DNA Vitamin B12 low at 344 Vitamin D low at 15.3 MRI Results: 11/30/23 MRI Brain W/WO report- unremarkable ->personally reviewed, agree unremarkable 11/27/ (more content not included)... [facility] 11-29-2023 Miscellaneous Notes 11/24 Order received 11/28 Called office for notes and new order to be faxed. [facility] encounter Note 11/24 Order received 11/28 Called office for notes and new order to be faxed. They will send 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) Will images be pushed electronically or mailed?: pushed electronically Patient is scheduled to have brain MRI 11/30/23, she will have those images pushed to us as well in preparation for her appt on 12/02/23 [facility] 11-29-2023 Miscellaneous Notes Provider Melanie Chavez CNP requesting the following images for review Type of imaging: MRI t/c Dates of imagin11/28/2023 Location imaging was done: [facility] Phone number of facility: [phone] Fax number of facility: unknown Who did I speak to?: Janine (spoke to the 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, 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) Will images be pushed electronically or mailed?: pushed electronically Patient is scheduled to have brain MRI 11/30/23, she will have those images pushed to us as well in preparation for her appt on 12/02/23 documented in this encounter [facility] 11-28-2023 Telephone encounter Note Mri was right faxed Tuesday with confirmation Re-faxed today with confirmation [facility] 11-28-2023 Miscellaneous Notes Mri was right faxed Tuesday with confirmation Re-faxed today with confirmation documented in this encounter [facility] 11-25-2023 Telephone encounter Note Hip xray order placed Nish Chavez APRN.CNP November 25, 2023 7:58 AM [facility] 11-25-2023 Miscellaneous Notes Hip xray order placed Nish Chavez APRN.CNP November 25, 2023 7:58 AM Ross/Chavez patient New patient eval on 11/17/[address] Dickson Dx - neurological symptoms undergoing evaluation No mention of hip pain in note Patient sent mychart message requesting an order for chest x-ray due to hip pain documented in this encounter [facility] 11-25-2023 Telephone encounter Note Ross/Chavez patient New patient eval on 11/17/[address] Dickson Dx - neurological symptoms undergoing evaluation No mention of hip pain in note Patient sent mychart message requesting an order for chest x-ray due to hip pain [facility] 11-24-2023 Telephone encounter Note Notes from last appt on 11/17/23 faxed as per patient's request Mychart sent to patient to notify her [facility] 11-24-2023 Miscellaneous Notes Notes from last appt on 11/17/23 faxed as per patient's request Mychart sent to patient to notify her Lynette is calling Brett Dickson MD today to request office notes from visit to be faxed to [phone] Attn:Toñito. Patient has been identified by name and birthdate. Duration of symptoms: N/A Person calling: self Call patient at: on cell [phone] (home) [phone] (cell) Was an appointment scheduled: No Closing statement: Results or non-symptom based questions: Thank you for calling [facility], your call will be returned within the next business day. Cinthya Allen Pss documented in this encounter [facility] 11-22-2023 Telephone encounter Note Lynette is calling Brett Dickson MD today to request office notes from visit to be faxed to [phone] Attn:Toñito. Patient has been identified by name and birthdate. Duration of symptoms: N/A Person calling: self Call patient at: on cell [phone] (home) [phone] (cell) Was an appointment scheduled: No Closing statement: Results or non-symptom based questions: Thank you for calling [facility], your call will be returned within the next business day. Cinthya Allen Pss [facility] 11-21-2023 Telephone encounter Note Patient has been identified by name and date of : Yes, Provider Dr. Pham Date 11/21/2023 Time 3:13pm Type of form: Lab results Form received via: Fax Form has been forwarded to: Provider's desk. Provider name: Dr. Pham and scanning. Brianda Palomares LPN [facility] 11-21-2023 Miscellaneous Notes Patient has been identified by name and date of : Yes, Provider Dr. Pham Date 11/21/2023 Time 3:13pm Type of form: Lab results Form received via: Fax Form has been forwarded to: Provider's desk. Provider name: Dr. Pham and scanning. Brianda Palomares LPN documented in this encounter [facility] 11-18-2023 Telephone encounter Note Letter faxed marked Attention: Lynette Hairston to fax [phone] as requested. Kaylynn Conn RN [facility] 11-18-2023 Miscellaneous Notes Letter faxed marked Attention: Lynette Hairston to fax [phone] as requested. Kaylynn Conn RN Letter written Nish Chavez APRN.STACIA November 18, 2023 11:58 AM [facility] Name of caller : Lynette Hairston Relationship to patient: Self Return call phone number : [phone] Reason for call : Other : Brief description of concern : Patient is calling and stated she just seen you and forgot to ask you for a letter for her work place. She said the letter needs to state she had appt with you today and fax it over to her attention at fax #[phone]. Any questions, please call her. documented in this encounter [facility] 11-18-2023 Telephone encounter Note Letter written Nish Chavez APRN.CNP November 18, 2023 11:58 AM [facility] Work Phone: 11-17-2023 Telephone encounter Note [facility] Name of caller : Lynette Hairston Relationship to patient: Self Return call phone number : [phone] Reason for call : Other : Brief description of concern : Patient is calling and stated she just seen you and forgot to ask you for a letter for her work place. She said the letter needs to state she had appt with you today and fax it over to her attention at fax #[phone]. Any questions, please call her. [facility] Work Phone: 11-17-2023 Instructions Brett Dickson MD - 11/17/2023 [...] you try baclofen. documented in this encounter [facility] 11-17-2023 History of Present illness Narrative Images from the original note were not included. [facility] NEW PATIENT EVALUATION/CONSULTATION Referral source: Cody Hutchins CNP Neurology- [facility] Also followed by: Patient Care Team: Toy Obrien MD as PCP - General (Family Medicine) Ham Barton (Gastroenterology) PRINCIPAL NEUROLOGIC DIAGNOSIS: Neurological symptoms [...] Flowsheet Row Office Visit from 11/17/[address] [facility] Upper Extremity Domain T Score 43.97 Lower Extremity Domain T Score 40.08 Cognitive Function Domain T Score 42.85 Positive Affect Well Being T Score -- Ability To Participate In Social Roles T Score 39.59 Satisfaction With Social Roles T Score 35.47 Neuro-QoL Symptoms (higher=worse symptoms) Flowsheet Row Office Visit from 11/17/[address] [facility] Sleep Domain T Score 54.31 Fatigue Domain [...] Flowsheet Row Office Visit from 11/17/[address] [facility] Processing Speed Total Number Correct 53 Low-contrast letter acuity test-2.5 percent opacity 30 Low-contrast letter acuity test-100 percent opacity 60 Dominant hand Right hand MDT Left Hand Time 28.46 MDT Right Hand Time 29.82 Walking Speed Test (25 feet) 7.56 Hair, skin, nails, and joints were normal. Respirations unlabored on room air. Extremities warm. There was no peripheral edema. +Rudolph hump on back on neck The patient [...] the arms and legs was performed including khnqio-jgbl-[id number], heel to celestin, rapid-alternating, and fine movements. 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 DEMYELINATING DISEASE EVALUATION, SERUM CORTISOL, SERUM The chart was reviewed for possible participation in the following studies: None I spent a total of 56 minutes on the date of the service which included preparing to see the patient, [id number] patient care, completing clinical documentation, obtaining and/or reviewing separately obtained history, performing a medically appropriate examination, counseling and educating the patient/family/caregiver, ordering medications, tests, or procedures, independently interpreting results (not separately reported), and care coordination (not separately reported). Brett Dickson MD [facility] documented in this encounter [facility] 11-17-2023 Note HNO ID: [id number] Author: BRETT DICKSON MD Service: ? Author Type: Physician Type: Progress Notes Filed: 11/17/2023 12:50 Note Text: [facility] NEW PATIENT EVALUATION/CONSULTATION Referral source: Cody Hutchins CNP Neurology- [facility] Also followed by: Patient Care Team: Toy Obrien MD as PCP - General (Family Medicine) Ham Barton (Gastroenterology) PRINCIPAL NEUROLOGIC DIAGNOSIS: Neurological symptoms [...] Flowsheet Row Office Visit from 11/17/[address] [facility] Upper Extremity Domain T Score 43.97 Lower Extremity Domain T Score 40.08 Cognitive Function Domain T Score 42.85 Positive Affect Well Being T Score -- Ability To Participate In Social Roles T Score 39.59 Satisfaction With Social Roles T Score 35.47 Neuro-QoL Symptoms (higher=worse symptoms) Flowsheet Row Office Visit from 11/17/[address] [facility] Sleep Domain T Score 54.31 Fatigue Domain [...] Flowsheet Row Office Visit from 11/17/[address] [facility] Processing Speed Total Number Correct 53 Low-contrast letter acuity test-2.5 percent opacity 30 Low-contrast letter acuity test-100 percent opacity 60 Dominant hand Right hand MDT Left Hand Time 28.46 MDT Right Hand Time 29.82 Walking Speed Test (25 feet) 7.56 Hair, skin, nails, and joints were normal. Respirations unlabored on room air. Extremities warm. There was no peripheral edema. +Rudolph hump on back on neck The patient [...] ductions were full (more content not included)... [facility] 11-14-2023 Telephone encounter Note LVM for pt letting know labs are in the system. [facility] 11-14-2023 Miscellaneous Notes LVM for pt letting know labs are in the system. Labs ordered for hair loss, please let joseph know. Noemi Pham MD Lynette is calling [...] patient at: at home and on cell [phone] (home) [phone] (cell) Was an appointment scheduled: No Closing statement: Symptom Call: Thank you for calling [facility], your call is very important. A nurse will call in approximately 2-4 hours during business hours. If this is an emergency, please contact 911. Queenie Richardson documented in this encounter [facility] 11-14-2023 Telephone encounter Note Labs ordered for hair loss, please let joseph know. Noemi Pham MD [facility] 11-14-2023 Telephone encounter Note Lynette is calling [...] patient at: at home and on cell [phone] (home) [phone] (cell) Was an appointment scheduled: No Closing statement: Symptom Call: Thank you for calling [facility], your call is very important. A nurse will call in approximately 2-4 hours during business hours. If this is an emergency, please contact 911. Queenie Richardson [facility] 11-11-2023 History of Present illness Narrative ESTABLISHED PATIENT DISTANCE HEALTH VISIT Encounter completed via virtual visit (audio and video) using [employer]based [employer] software Provider location during distance health encounter: [facility] Patient location during distance health encounter: Home ======== I have communicated my name and active licensure. The patient's identity and physical location were verified at the time of this visit. Either the patient (as in this case) or their legal claims customer service representative has been informed of the risks [...] her local neurologist (Yvonne Hutchins CNP) in [place], [place] with a recent follow-up note including [...] POTS, chronic migraines being seen in follow-up (V 12/24/2022) RE: multifocal/diffuse myalgia and generalized fatigue, [...] MG antibody screening essentially unrevealing. Exam at [facility] again without unequivocal neuromuscular deficits or neurological [...] features manifesting in head/face symptoms reported. Since [facility], restless legs-type symptoms in LEs (with some [...] answered to her stated satisfaction. -Consult to [facility] neurology RE: basis for MS concerns as [...] also reduction in risk for stroke and IA. Again urged to follow-up with sleep medicine provider CHELSEY Hutchins in [place]. -Follow with PCP to ensure vitamin D [...] glass, twice daily - Magnesium Oxide (available [id number]) 400 mg by mouth twice daily, as needed (prescription issued today)-this may cross-cover migraine equivalent symptoms management. - Gentle muscle stretching routine, especially before bedtime (see below) Description of the stretching exercises (See details at http://www.sciencedirect.com/scie nce/article/pii/[email or web address] ) CALF STRETCH IN STANDING Starting position: [...] primary care physicians) can sign up for [employer] (or [employer]), which allows online appointment scheduling, transmission of labs results and chart notes, and secure email communication. To establish either account, visit [email or web address]. The duration of this distance health appointment visit was 30 minutes (2:35-3:05 PM). At least 50% of this time was spent in counseling, explanation of diagnosis, planning of further management, and coordination of care. A further 20 mins were spent with documentation comprising this note. Liz Connolly MD Staff, [facility] [place] Electronically signed November 11, 2023 3:13 PM Original referring provider: Noemi Pham MD Rheumatology (Via TRIRIGA inbox) Primary care physician: Toy Obrien [address] [place] [address] [place] [address] documented in this encounter [facility] 11-11-2023 Note HNO ID: [id number] Author: LIZ CONNOLLY MD Service: ? Author Type: Physician Type: Progress Notes Filed: 11/22/2023 10:34 Note Text: ESTABLISHED PATIENT DISTANCE HEALTH VISIT Encounter completed via virtual visit (audio and video) using [email or web address]-based Zoom software Provider location during distance health encounter: [facility] Patient location during distance health encounter: Home ======== I have communicated my name and active licensure. The patient's identity and physical location were verified at the time of this visit. Either the patient (as in this case) or their legal claims customer service representative has been informed of the risks [...] her local neurologist (Yvonne Hutchins CNP) in [place], [place] with a recent follow-up note including [...] POTS, chronic migraines being seen in follow-up ([facility] 12/24/2022) RE: multifocal/diffuse myalgia and generalized fatigue, [...] MG antibody screening essentially unrevealing. Exam at [facility] again without unequivocal neuromuscular deficits or neurological [...] head/face symptoms reported. (more content not included)... [facility] 11-11-2023 History of Present illness Narrative Subjective: Patient [...] migraine 2x/week 02/2023: constant headache x5 days 07/2023: infrequent headaches 10/2023: 2-3 headaches/week Current Meds: Abilify 2 mg Amlodipine ASA Buspirone 10 Crestor Fioricet Enbrel Synthroid Metoprolol XL Naproxen Omeprazole Ranexa Sumatriptan Tizanidine 2 mg nightly Zofran Zoloft Zonisamide 100 mg HS Previous Meds: Gabapentin (felt paralyzed, pins and needles) Hydroxychloroquine Medrol Fioricet (does not help) Ozempic [...] Norflex does not help. She sees a potato spotter for rheumatoid arthritis (Plaquenil) and fibromyalgia. Sleep/Social [...] last 2 years. Current Visit: Seen in October 2023, Lynette has had increased symptoms. She states that her bilateral smallest toes spread apart and then wiggle uncontrollably. She is having muscle spasms in her legs. She will have random, creepy-crawly tingling paresthesias throughout her body. If she coughs, her chest and back will tense up and she has severe pins and needles paresthesias. She had sudden blurred vision. She is taking 100 mg zonisamide nightly for nerve pain and migraine prevention. She takes 2 mg tizanidine nightly for muscle pain. She cannot tolerate higher doses without daytime drowsiness. Sumatriptan works well if she has a severe migraine. If it is not terrible, Excedrin migraine relieves her headache. The following portions of the patient's history [...] History: Diagnosis Date Anxiety Asthma Autoimmune disease ([facility]) 09/26/2019 Chronic rheumatic arthritis [place] Depression Diabetes mellitus ([facility]) Fibromyalgia GERD (gastroesophageal reflux disease) HLD (hyperlipidemia) HTN (hypertension) HTN (hypertension) 09/22/2021 Hypothyroidism Migraine Moderate mitral regurgitation Obstructive sleep apnea syndrome 02/12/2020 POTS (postural orthostatic tachycardia syndrome) RA (rheumatoid arthritis) ([facility] Syncope TOS (thoracic outlet syndrome) Past Surgical History: Procedure Laterality Date ADENOIDECTOMY APPENDECTOMY BLADDER SUSPENSION Cardiac catheterization - CORS + LV GRAM/PRESS (90724) Left 10/08/2021 Performed by Ana María Plasencia MD at [facility] CARDIAC CATH LABS CHOLECYSTECTOMY ENDOMETRIAL BIOPSY HYSTERECTOMY [...] Never Smokeless tobacco: Never Vaping Use Vaping status: Never Used Substance and Sexual Activity Alcohol use: Yes Comment: occasional Drug use: No Sexual activity: Yes Partners: Male Other Topics Concern Caffeine Use Yes Comment: soda Social History Narrative Not on file Social Determinants of Health Financial Resource Strain: Not on file Food Insecurity: No Food Insecurity (11/11/2023) Hunger Screening Food Insecurity - Worry: Never True Food Insecurity - Inability: Never True Transportation Needs: Not on file Physical Activity: Not on file Stress: Not on file Social Connections: Not on file Interpersonal Safety: Unknown (09/15/2023) Received from [facility] [place] Safety & Environment Fear of Current or Ex-Partner: Not on file Emotionally Abused: Not on file Physically Abused: Not on file Sexually Abused: Not on file Physically or Sexually Abused: Not on file Housing Instability: Not on file Family History Problem Relation Age of Onset Hyperlipidemia Mother Diabetes Mother Hypothyroidism Mother Hypertension Mother No Known Problems Father Breast cancer Neg Hx Colon cancer Neg Hx Ovarian cancer Neg Hx Lung cancer Neg Hx Cervical cancer Neg Hx Current Outpatient Medications on File Prior to Visit Medication Sig ARIPiprazole (ABILIFY) 5 mg tablet Take 1 [...] may repeat q5mins for up three doses omeprazole (PriLOSEC) 40 mg capsule Take 1 capsule (40 mg total) by mouth in the morning. rosuvastatin (CRESTOR) 20 mg tablet Take 1 tablet (20 mg total) by mouth in the morning. sertraline (ZOLOFT) 100 mg tablet Take 1 tablet (100 mg total) by mouth in the morning. SUMAtriptan (IMITREX) 100 mg tablet Take 1 tablet (100 mg total) by mouth once as needed for migraine. May repeat in 2 hours if unresolved. Do not exceed 200 mg in 24 hours. tiZANidine (ZANAFLEX) 4 mg tablet Take 1-2 tablets (4-8 mg total) by mouth nightly. zonisamide (ZONEGRAN) 100 mg capsule Take 1 capsule (100 mg total) by mouth every morning AND 2 capsules (200 mg total) nightly. (Patient taking differently: 100MG NIGHTLY) No current facility-administered medications on file prior to visit. OARRS was reviewed by MEI Corona. Objective: BP 124/84 (BP Site: Right Arm, BP Postition: Sitting) Pulse 88 Ht 171.5 cm (5' 7.5 ) Wt 113.9 kg (251 lb 3.2 oz) LMP (LMP Unknown) BMI 38.76 kg/m Physical Exam: Mental Status: Orientation: Oriented. [...] Pulmonary: Effort: Pulmonary effort is normal. Assessment/Plan: 11/11/2023 OV: Seen in October 2023, Lynette has had increased symptoms. She states that her bilateral smallest toes spread apart and then wiggle uncontrollably. She is having muscle spasms in her legs. She will have random, creepy-crawly tingling paresthesias throughout her body. If she coughs, her chest and back will tense up and she has severe pins and needles paresthesias. She had sudden blurred vision. She is taking 100 mg zonisamide nightly for nerve pain and migraine prevention. She takes 2 mg tizanidine nightly for muscle pain. She cannot tolerate higher doses without daytime drowsiness. Sumatriptan works well if she has a severe migraine. If it is not terrible, Excedrin migraine relieves her headache. Problem List Items Addressed This Visit Cardiovascular and Mediastinum Migraine without aura and without status migrainosus, not intractable - Primary Intractable migraine equivalent Nervous and Auditory Fibromyalgia Paresthesias Cervicalgia Musculoskeletal and Integument Trapezius muscle spasm Other Periodic limb movement disorder Relevant Medications rOPINIRole (REQUIP) 0.25 mg tablet Restless legs syndrome Patient noted to have elevated BMI and [...] Stay well-hydrated. You should drink at least 125 ounces of water daily (unless otherwise limited [...] you to hold a conversation comfortably. #7. Ropinirole 0.25 mg tablets. Start with 1/2 tablet with your evening meal for abnormal limb movements. You can increase to a full tablet if needed. If needed, you can add a second dose at bedtime. #8. Return to office in 3 months, earlier if needed. --head hammock --exercise bicycle pedals Total time spent was 40 minutes: Preparing to see the patient (e.g., review of tests) Obtaining and/or reviewing separately obtained history Performing a medically appropriate examination and/or evaluation Counseling and educating the patient/family/caregiver Ordering medications, tests, or procedures Referring and communicating with other health career advisor (not separately reported) Documenting clinical information in the electronic or other health record Care coordination (not separately reported) - Cody Hutchins, SAEMEI 11/11/23 11:38 AM MEI Corona 08/05/23 1202 MEI Corona 11/11/23 1138 documented in this encounter [facility] [employer] 11-11-2023 Instructions MEI Corona - 11/11/2023 11:00 AM EDT #1. Good sleep hygiene. Go to bed [...] Stay well-hydrated. You should drink at least 125 ounces of water daily (unless otherwise limited [...] you to hold a conversation comfortably. #7. Ropinirole 0.25 mg tablets. Start with 1/2 tablet with your evening meal for abnormal limb movements. You can increase to a full tablet if needed. If needed, you can add a second dose at bedtime. #8. Return to office in 3 months, earlier if needed. --head hammock --exercise bicycle pedals documented in this encounter [employer] 11-03-2023 Miscellaneous Notes CHELSEY Maynard completed in covermeds. CaseId:[id number];Status:Approved;R lyndoniew Type:Prior Auth;Coverage Start Date:10/04/2023;Coverage End Date:11/02/2024 documented in this encounter [facility] 10-14-2023 Note Right Eye Quality was good. [...] Gabriela Jane 10/14/23 documented in this encounter [facility] 09-29-2023 Miscellaneous Notes Denial paperwork received. Placed on Dr. Pham's desk for review. documented in this encounter [facility] 09-26-2023 Miscellaneous Notes Office notes faxed to [facility] per patient request. documented in this encounter [facility] 09-23-2023 Miscellaneous Notes MRI faxed via [employer]. documented in this encounter [facility] 09-22-2023 Miscellaneous Notes Received back with signature from Dr. Pham and faxed to [phone] per Patients request. Printed and placed on Dr. Pham's desk for signature. Patient is calling today to request her MRI of the Lumbar spine be printed and signed and faxed over to [facility] at: [phone]. Please call and advise when this is done so she can get this scheduled. Patient has been identified by name and birthdate. Duration of symptoms: N/A Person calling: self Call patient at: at home [phone] (home) [phone] (cell) Was an appointment scheduled: No Closing statement: Results or non-symptom based questions: Thank you for calling [facility], your call will be returned within the next business day. Abby Nassar documented in this encounter [facility] 09-21-2023 Miscellaneous Notes Order for MRI of lumbar spine placed, please call patient to schedule. Noemi Pham MD documented in this encounter [facility] 09-21-2023 Miscellaneous Notes Received fax from [facility]. X-ray results XR lumbar spine. One copy given to Dr. Pham and one copy sent to scanning documented in this encounter [facility] 09-20-2023 Miscellaneous Notes Faxed x-ray orders to both fax numbers as requested by patient. Faxed via [employer]. Patient called to check on status regarding fax. Also requested the order to be faxed to [phone]. Please call patient once order is faxed. Called and spoke with pt. She states it is the R-Hip. She needs us to fax orders to [facility] [phone]. 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 Past Medical History: Diagnosis Date Anxiety Asthma Autoimmune disease [place] 09/26/2019 Chronic rheumatic arthritis ([facility] Depression Diabetes mellitus ([facility]) Fibromyalgia GERD (gastroesophageal reflux disease) HLD (hyperlipidemia) HTN (hypertension) HTN (hypertension) 09/22/2021 Hypothyroidism Migraine Moderate mitral regurgitation Obstructive sleep apnea syndrome 02/12/2020 POTS (postural orthostatic tachycardia syndrome) RA (rheumatoid arthritis) ([facility]) Syncope TOS (thoracic outlet syndrome) No data recorded No data recorded No data recorded Past Surgical History: Procedure Laterality Date ADENOIDECTOMY APPENDECTOMY BLADDER SUSPENSION Cardiac catheterization - CORS + LV GRAM/PRESS (30654) Left 10/08/2021 Performed by Ana María Plasencia MD at [facility] CARDIAC CATH LABS CHOLECYSTECTOMY ENDOMETRIAL BIOPSY HYSTERECTOMY [...] - POCT EKG 2. Coronary artery vasospasm ([facility]) 3. Intermittent palpitations Assessment: Coronary vasospasm; [facility] 09/2021: Minimal CAD, spasm in the [...] MD Referring Physician: Toy Obrien MD [facility] [place] [address] Referral and perts faxed to Pulmonology . documented in this encounter [facility] 09-01-2023 Miscellaneous Notes Left message for patient to remind them to bring their most current medication list with them to their appointment. documented in this encounter [facility] 09-01-2023 Telephone encounter Note Left message for patient to remind them to bring their most current medication list with them to their appointment. [facility] 08-05-2023 History of Present illness Narrative [...] Norflex does not help. She sees a potato spotter for rheumatoid arthritis (Plaquenil) and fibromyalgia. Sleep/Social [...] muscles. She sees Conrad Garcia DC in [place] for her child care nurse. She would like to start a preventative [...] History: Diagnosis Date Anxiety Asthma Autoimmune disease ([facility]) 09/26/2019 Chronic rheumatic arthritis ([facility] Depression Diabetes mellitus ([facility]) Fibromyalgia GERD (gastroesophageal reflux disease) HLD (hyperlipidemia) HTN (hypertension) HTN (hypertension) 09/22/2021 Hypothyroidism Migraine Moderate mitral regurgitation Obstructive sleep apnea syndrome 02/12/2020 POTS (postural orthostatic tachycardia syndrome) RA (rheumatoid arthritis) ([facility]) Syncope TOS (thoracic outlet syndrome) Past Surgical History: Procedure Laterality Date ADENOIDECTOMY APPENDECTOMY BLADDER SUSPENSION Cardiac catheterization - CORS + LV GRAM/PRESS (09264) Left 10/08/2021 Performed by Ana María Plasencia MD at [facility] CARDIAC CATH LABS CHOLECYSTECTOMY ENDOMETRIAL BIOPSY HYSTERECTOMY [...] muscles. She sees Conrad Garcia DC in [place] for her child care nurse. She would like to start a preventative [...] Referring and communicating with other health career advisor (not separately reported) Documenting clinical information in the electronic or other health record Care coordination (not separately reported) - Cody Hutchins DNP, APRN-CNP 08/05/23 12:01 PM [facility] 08/05/23 1202 documented in this encounter [facility] 08-05-2023 Instructions Cody Hutchins APRN-STACIA - 08/05/2023 11:30 AM EST #1. Good [...] --exercise bicycle pedals documented in this encounter [facility] 08-03-2023 Miscellaneous Notes Patient contacted our office requesting a sooner appt. Patient just started a new job and is off every other Tuesday and she is off this Tuesday. Pit Laborer looked and there are no appts available [...] get her a sooner appt. Please advise. Kermit: when you are doing reminder calls for [...] can add 100 mg in the morning. Pit Laborer called pt. And left a message for her to call the office back to discuss her medication dosage question. Received call today 08/04/23 9:22 from patient who is requesting a call back in regard to previous message. Please call back and advise, callback#: [phone]. Pit Laborer spoke with pt. Pit Laborer told pt about the med dosage per Cody Hutchins and pt stated she understood. Pt also stated she is in so much pain asking for a migraine cocktail so she was added to schedule tomorrow 08/05/23. [facility] Tele[facility] encounter Note Patient contacted our office requesting a sooner appt. Patient just started a new job and is off every other Tuesday and she is off this Tuesday. Pit Laborer looked and there are no appts available [...] get her a sooner appt. Please advise. [facility] Telephone encounter Note Kermit: when you are doing reminder calls for 08/05/2023, if anyone wants to cancel, please contact Lynette and put her on the schedule Clinical: If she is taking 100 mg of zonisamide each evening, she can increase her dose to 200 mg (two of the 100 mg capsules) each evening. [facility]23 Telephone encounter Note Patient is already taking 200 mg of the Zonisamide nightly. Please advise. [employer] [facility] 08-03-2023 Telephone encounter Note She can add 100 mg in the morning. [facility] 08-03-2023 Telephone encounter Note Pit Laborer called pt. And left a message for her to call the office back to discuss her medication dosage question. [facility] [employer] [facility] 08-03-2023 Telephone encounter Note Received call today 08/04/23 9:22 from patient who is requesting a call back in regard to previous message. Please call back and advise, callback#: [phone]. [facility] 08-03-2023 Telephone encounter Note Pit Laborer spoke with pt. Pit Laborer told pt about the med dosage per Cody Hutchins and pt stated she understood. Pt also stated she is in so much pain asking for a migraine cocktail so she was added to schedule tomorrow 08/05/23. [facility] [employer] [facility] 07-21-2023 Miscellaneous Notes 1) When did [...] requesting a call back to further discuss [phone]. Thank you so much She can increase the zonisamide to 200 mg (2 of the 100 mg capsules) each evening. Patient returned phone call. Pit Laborer informed her of Cody Hutchins's message below. She voiced understanding. documented in this encounter [facility] 07-21-2023 Telephone encounter Note 1) When [...] requesting a call back to further discuss [phone]. Thank you so much [facility] 07-21-2023 Telephone encounter Note She can increase the zonisamide to 200 mg (2 of the 100 mg capsules) each evening. [facility] 07-21-2023 Telephone encounter Note Patient returned phone call. Pit Laborer informed her of Cody Hutchins's message below. She voiced understanding. [facility] Evaluation note Encounter Date Diagnosis [...] unspecified otitis media type (ICD-10 - H66.91) [employer] Other 12-01-2023 History of Present illness Narrative* Chato Chacko, [...] 24, 2023 12:47 PM [facility] History of Present illness Narrative* Noemi [...] bursa injection Informed Consent Consent Obtained: Verbal [place] Protocol A moment to CARE was completed. [...] -none Noemi Pham MD [facility] Evaluation note* Encounter Date Diagnosis Assessment [...] May, Right elbow pain (ICD-10 - M25.521) [employer] Other 10-19-2023 Miscellaneous Notes* Telephone Encounter - Allison York OCCA - 05/12/2023 1:29 PM EDT Faxed [facility], patient is no longer on medication * Telephone Encounter - Minh Mosqueda - 05/12/2023 1:16 PM EDT Ashwini from [employer] is calling Noemi Pham MD today to clarify medication. When they were filling the enbrel, it flagged that the patient has a thrombocytopenia diagnosis. They need to clarify that the provider is aware. They cannot send the medication until they get that clarification. [phone] Patient has been identified by name and birthdate. Duration of symptoms: N/A Person calling: pharmacy: [facility] Call patient at: on cell [phone] (home) [phone] (cell) Was an appointment scheduled: No Closing statement: Results or non-symptom based questions: Thank you for calling [facility], your call will be returned within the next business day. Minh Mosqueda documented in this encounter[facility]08-[facility]23 Miscellaneous Notes* Telephone Encounter - Jud Lee LPN - 03/09/2023 1:59 PM EDT Patient stopped taking the Plaquenil d/t skin rash. Provider aware. * Telephone Encounter - Noemi Pham MD - 03/09/2023 1:37 PM EDT She can continue on the plaquenil bid, eye exam reviewed, no toxicity noted. Noemi Pham MD documented in [facility]07-[facility]23 Miscellaneous Notes* Telephone Encounter - Brianda [...] and mail to her. documented in this encounterF[facility]07-[facility]-2023 Miscellaneous Notes* Telephone Encounter - Brianda Palomares LPN - 01/26/2023 1:53 PM EDT Mailed LEVY label to patient per Dr. Pham's request * Telephone Encounter - Noemi Pham MD - 01/26/2023 1:45 PM EDT Please mail her lab order for LEVY panel. Noemi Pham MD documented in this encounterF[facility]06-21-2023 Miscellaneous Notes* Telephone Encounter - Noemi Pham MD - 01/12/2023 8:31 AM EDT The following approved medication requests have been transmitted electronically. Requested Prescriptions Pending Prescriptions Disp Refills metaxalone (SKELAXIN) 800 mg tablet [Pharmacy Med Name: METAXALONE 800 MG TABLET] 30 tablet 1 Sig: TAKE 1/2 TABLET BY MOUTH TWICE A DAY NEEDED Noemi Pham MD * Telephone Encounter - Jud Lee LPN - 01/11/2023 9:41 AM EDT Most [...] [facility] 01/14/2023 11:00 AM [facility] Last Ophthalmology Check for Plaquenil [...] Instance) Lab Orders None documented in this encounterF[facility]06-02-2023 History of Present illness Narrative* Alejo [...] applicable. Megan Marshall MD documented in this encounterF[facility]oria [facility] Hospital05-10-2023 Miscellaneous Notes* Telephone Encounter - Inocencia Bui LPN - 12/01/2022 3:25 PM EDT Prior authorization for Enbrel initiated on Cover My Meds. Pending. documented in this [facility]05-02-2023 Miscellaneous Notes* Telephone Encounter - Jennifer Cavazos RN - 11/23/2022 9:22 AM EDT Patient has appointment with Dr. Connolly on 12/24/22 and is asking if any tests should be done prior her appointment. Patient was referred by Dr. Pham ( rheum.) Patient c/o of increased muscle weakness. Last [...] Adolase, blood, level. Recent (08/11/2022)- 9.9 units/L Jennifer Cavazos RN documented in this encounterFostoria City Hospital04-24-2023 Miscellaneous Notes* Telephone Encounter - Noemi Pham MD - 11/15/2022 1:22 PM EDT Please tell her I received labs from [facility] and her cpk and aldolase returned normal . (CPK was 11 and aldolase 5.0 Noemi Pham MD documented in this encounterFostoria City Hospital04-05-2023 Miscellaneous Notes* Telephone Encounter - Inocencia Bui LPN - 10/27/2022 9:44 AM EDT Please advise. documented in this encounterF[facility]oria [facility] Hospital03-13-2023 Miscellaneous Notes* Telephone Encounter - Noemi [...] future refills. * Telephone Encounter - Brianda Meade EVE Palomares - 10/04/2022 10:41 AM EDT Most recent [...] 365 Days Visit Type Date Time Department [facility] 02/16/2023 11:20 AM [facility] Last Ophthalmology Check for Plaquenil [...] Instance) Lab Orders None documented in this encounterFostoria City Hospital01-18-2023 History of Present illness Narrative* Jud Lee LPN - 08/11/2022 11:21 AM EST Patient given Depomedrol 80 mg IM in the left upper quadrant gluteus. Patient tolerated injection well. Lot#: [id number] Exp date: 03/23/2024 Jud Lee LPN * Inocencia Bui LPN - 08/11/2022 [...] -none Noemi Pham MD documented in this encounterFostoria City Hospital11-21-2022 Miscellaneous Notes* Telephone Encounter - Inocencia Bui LPN - 06/14/2022 3:35 PM EST Mohsen Prince Felder: [id number] - PA - Rx #: [id number] help? Call us at Outcome Approvedon June 11 CaseId:[id number];Status:Approved;Review Type:Prior Auth;Coverage Start Date:05/12/2022;Coverage End Date:06/11/2023; * Telephone Encounter - Jud Lee LPN - 06/11/2022 11:22 AM EST PA for Enbrel submitted via Cover My Meds this date. If approved new Rx will need sent to [facility]. * Telephone Encounter - Diana Stanley - 06/04/2022 9:59 AM EST Lynette Prince called today. : 1975 Allergies: Meloxicam and Methotrexate (home) [phone] (cell) Reason for call: patient states she spoke with [employer] [facility] requesting additional info for medication For ENBREL Please advise Patient last appointment: 05/29/2022 The patients preferred pharmacy has been captured for this encounter? yes RHODA STARR documented in this encounterF[facility]11-10-2022 Miscellaneous Notes* Telephone Encounter - Inocencia Bui LPN - 06/03/2022 9:36 AM EST Follow up message from 05/17/22 encounter and orders. documented in this encounterFostoria [facility] Hospital11-07-2022 Miscellaneous Notes* Telephone Encounter - Linnea [...] 365 Days Visit Type Date Time Department [facility] 10/20/2022 9:40 AM [facility] RE[facility] CBC: None on file in [...] Instance) Lab Orders None documented in this encounterFostoria City Hospital10-24-2022 Miscellaneous Notes* Telephone Encounter - Jud Lee LPN - 05/17/2022 4:26 PM EDT [employer] message sent to patient. * Telephone [...] : 1975 Allergies: Meloxicam and Methotrexate (home) [phone] (cell) Reason for call: Patient called asking [...] not asked Glory Mason documented in this encounterFostoria City Hospital06-07-2022 Miscellaneous Notes* Telephone Encounter - Jud Lee LPN - 12/29/2021 2:47 PM EDT PA for Enbrel submitted via Cover My Meds. Felder: [id number] Pend for determination * Telephone Encounter - Jud Lee LPN - 12/29/2021 10:49 AM EDT RX [...] message on voicemail) ' documented in this encounterFostoria City Hospital04-06-2022 Miscellaneous Notes* Telephone Encounter - Jud Lee LPN - 10/28/2021 12:13 PM EDT Rx placed in outgoing mail this date. Patient notified via [employer]. * Telephone Encounter - Noemi Pham MD - 10/28/2021 11:59 AM EDT rx for handicapped written, please mail to patient. Noemi Pham MD documented in this encounterFostoria City HospitalEvaluation note* Diagnosis Neuropathic pain- Primary Neuralgia, neuritis, and radiculitis, unspecified documented in this encounter [email or web address] Work Phone: evaluation note* Diagnosis Fibromyalgia- Primary Mylagia and myositis, unspecified documented [facility] this encounter [facility] noteNo assessment information [facility] Work Phone: Evaluation note* Diagnosis Rheumatoid arthritis involving multiple sites, unspecified whether rheumatoid factor present (HCC)- Primary documented in this encounter [facility]* Diagnosis Myalgia- Primary Mylagia and myositis, unspecified documented in this encounter [facility]* Diagnosis Fatigue, unspecified type- Primary Elevated aldolase level Other nonspecific abnormal serum enzyme levels Generalized weakness Other malaise and fatigue documented in this encounter [facility]* Diagnosis Fatigue, unspecified type Elevated aldolase level Other nonspecific abnormal serum enzyme levels Generalized weakness Other malaise and fatigue documented in this encounter [facility]* Diagnosis Rheumatoid arthritis involving multiple sites, unspecified whether rheumatoid factor present (HCC)- Primary documented in this encounter [facility]* Diagnosis Pain in joint, multiple sites- Primary Trochanteric bursitis of both hips Enthesopathy of hip region documented in this encounter [facility]* Diagnosis Pain in joint, multiple sites documented in this encounter [facility] noteNo [facility] [employer] Other Evaluation note* Diagnosis Primary hypertension- Primary Unspecified essential hypertension Coronary artery vasospasm ([facility]) Prinzmetal angina Intermittent palpitations Obstructive sleep apnea Obstructive sleep apnea (adult) (pediatric) [facility] Diagnosis Chronic bilateral low back pain without sciatica- Primary documented in this encounter [facility]* Diagnosis Spinal stenosis of lumbar region with neurogenic claudication- Primary Spinal stenosis, lumbar region, with neurogenic claudication documented in this encounter [facility]* Diagnosis Retinoschisis, bullous, bilateral- Primary High risk medication use Hypertensive retinopathy of both eyes Hypertensive retinopathy Epiretinal membrane (ERM) of both eyes PVD (posterior vitreous detachment), right eye Vitreous syneresis of both eyes Presbyopia Hx of rheumatoid arthritis Retinoschisis, bullous, bilateral Retinoschisis, bullous, bilateral [facility] Diagnosis High risk medication use- Primary [facility] Diagnosis Retinoschisis, bullous, bilateral [facility]* Diagnosis Onset Date Resolution Status Lateral epicondylitis, right elbow acute Pain in right elbow acute [facility] Work Phone: Evaluation note* Diagnosis Hair loss- Primary Alopecia, unspecified documented in this encounter [facility]* Diagnosis Myelopathy (HCC)- Primary Unspecified disease of spinal cord Pain in joint, multiple sites Rudolph obesity Obesity, unspecified Vitamin D deficiency Unspecified vitamin D deficiency Screening for condition Screening for unspecified condition Malaise and fatigue Other malaise and fatigue Demyelinating disease of central nervous system (HCC) Demyelinating disease of central nervous system, unspecified documented [facility] this [facility]* Diagnosis Myofascial pain dysfunction syndrome- Primary [...] Recent skin changes documented [facility] this [facility]* Diagnosis Pain in left hip- Primary Pain in joint, pelvic region and thigh Pain in joint, multiple sites documented in this [facility]* Diagnosis Abnormal involuntary movement- Primary Abnormal involuntary movements Muscle spasms of both lower extremities Muscle cramping Cramp of limb Vitamin B12 deficiency Other B-complex deficiencies Vitamin D deficiency Unspecified vitamin D deficiency Obesity, Class III, BMI >= 40 Morbid obesity documented in this [facility]* Diagnosis Seropositive rheumatoid arthritis of multiple sites (HCC) documented in this [facility]* Diagnosis Vitamin D deficiency- Primary Unspecified vitamin D deficiency [facility]* Diagnosis Paresthesias- Primary Disturbance of skin sensation Abnormal involuntary movement Abnormal involuntary movements documented in this encounter [facility] note* Diagnosis Rheumatoid arthritis involving multiple sites, unspecified whether rheumatoid factor present (HCC)- Primary Myalgia Mylagia and myositis, unspecified documented in this encounter [facility] note* Diagnosis Paresthesias- Primary Disturbance of skin sensation documented in this encounter [facility] note* Diagnosis Disturbance of skin sensation- Primary documented in this encounter [facility] note* Diagnosis Migraine without aura and without status migrainosus, not intractable- Primary Migraine without aura, without mention of intractable migraine without mention of status migrainosus documented in this encounter [facility] note* Diagnosis Migraine without aura and with status migrainosus, not intractable- Primary Migraine without aura, without mention of intractable migraine with status migrainosus documented in this encounter [facility] note* Diagnosis Migraine without aura and without status migrainosus, not intractable- Primary Migraine without aura, without mention of intractable migraine without mention of status migrainosus documented in this encounter [facility] note* Diagnosis Rheumatoid arthritis involving multiple sites, unspecified whether rheumatoid factor present (HCC)- Primary Myalgia Mylagia and myositis, unspecified Joint stiffness Stiffness of joint, not elsewhere classified, unspecified site documented in this encounter [facility] note* Diagnosis Seropositive rheumatoid arthritis of multiple sites (HCC)- Primary documented in this encounter [facility] note* Diagnosis Muscle pain- Primary Mylagia and myositis, unspecified documented in this encounter [facility] note* Diagnosis Myalgia- Primary Mylagia and myositis, unspecified documented in this encounter [facility] note* Diagnosis Acute pain of left knee- Primary Acute pain of left knee [facility] Diagnosis Seropositive rheumatoid arthritis of multiple sites (HCC)- Primary documented in this encounter [facility] note* Diagnosis Accidental methotrexate overdose, subsequent encounter- Primary documented in this encounter [facility] note* Diagnosis Primary osteoarthritis of left knee- Primary Acute pain of left knee 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) [facility]* Diagnosis Urge incontinence of urine- Primary Urge incontinence OAB (overactive bladder) Pelvic muscle atrophy Pelvic muscle wasting [facility]* Diagnosis Fibromyalgia Mylagia and myositis, unspecified Rheumatoid factor positive Other and unspecified nonspecific immunological findings [facility] Diagnosis Migraine without aura and without status migrainosus, not intractable- Primary Intractable migraine equivalent Cervicalgia Fibromyalgia Unspecified myalgia and myositis Paresthesias Disturbance of skin sensation Trapezius muscle spasm Periodic limb movement disorder Restless legs syndrome Restless legs syndrome (RLS) documented in [facility]* Diagnosis Status migrainosus- Primary Variants of migraine, not elsewhere classified, without mention of intractable migraine without mention of status migrainosus Migraine without aura and without status migrainosus, not intractable Cervicalgia Fibromyalgia Unspecified myalgia and myositis Paresthesias Disturbance of skin sensation Trapezius muscle spasm Vertigo Dizziness and giddiness documented [facility] Narrative - Reported* Type Description Date Medical History rheumatoid arthritis Medical History anxiety Medical History chronic depression Medical History coronary artery disease Surgical History heart catheterization Surgical History gall bladder removed Surgical History tonsillectomy and adenoidectomy Surgical History HYSTERECTOMY Surgical History appendectomy Hospitalization History surgeries [facility] Other Hospital Discharge instructions* Instructions* James Restrepo MD - 02/07/2021 Return to the [...] a follow up appointment THANK YOU!!! From [facility] and [facility] On behalf of the Emergency Department staff at [facility], I would like to thank you for giving us the opportunity to address your health care needs and concerns. We hope that during your visit, our service was delivered in a professional and caring manner. Please keep [facility] in mind as we walk [...] how we did during your visit at [email or web address] and let us know about your experience * Attachments The following attachments cannot be sent through Care Everywhere. * Neuropathic Pain ([place]) documented in this encounterTinteo Phone: InstructionsNot on filedocumented in this encounter [email or web address] SystemInstructionsNot on filedocumented in this encounter [email or web address] SystemInstructionsNot on filedocumented in this encounter [facility] System[facility]ructionsNot on filedocumented in this encounter [email or web address] SystemInstructionsNot on filedocumented in this encounter [facility] System[facility]ructionsNot on filedocumented in this encounter [email or web address] SystemInstructionsNot on filedocumented in this encounter [facility] SystemInstructionsNot on filedocumented in this encounter [facility] for referral (narrative)* Outpatient Procedure (Routine) - Pending Review Specialty Diagnoses / Procedures Referred By Alba shin Referred To Contact [facility] Diagnoses Fatigue, unspecified type Elevated aldolase level Generalized weakness Procedures EMG(NEURO/NI) NERVE CONDUCTION STUDIES 9-10 STUDIES Liz Connolly MD [address] [place] [address] Neurological [facility] [place] [address] Referral ID Status Reason Start Date Expiration Date Visits Requested Visits Authorized [id number] Pending Review Auto-Generat ed Referral 11/23/2022 11/24/2023 1 1 [facility] for referral (narrative)* Diagnostic Procedure Only (Routine) - Closed Specialty Diagnoses / Procedures Referred By Alba shin Referred To Contact XR IMAGING Diagnoses Pain in joint, multiple sites Procedures XR LUMBAR GENERAL 3V AP/LAT/L5-S1 RADEX SPINE LUMBOSACRAL 2/3 VIEWS Noemi Pham MD [address] [place] [id number] [place] [address] Referral ID Status Reason Start Date Expiration Date V isits Requested Visits Authorized [id number] Closed Auto-Generate d Referral 06/24/2023 07/23/2024 1 1 [facility] for referral (narrative)* Diagnostic Procedure Only (Routine) - Closed Specialty Diagnoses / Procedures Referred By Contac t Referred To Contact XR IMAGING Diagnoses Pain in joint, multiple sites Procedures XR LUMBAR GENERAL 3V AP/LAT/L5-S1 RADEX SPINE LUMBOSACRAL 2/3 VIEWS Noemi Pham MD [address] [place] [id number] [place] [address] Referral ID Status Reason Start Date Expiration Date V isits Requested Visits Authorized [id number] Closed Auto-Generate d Referral 06/24/2023 07/23/2024 1 1 [facility] for referral (narrative)* Consultation (Routine) - Pending Review Specialty Diagnoses / Procedures Referred By Contac t Referred To Contact Pulmonary Medicine Diagnoses Obstructive sleep apnea Michael Perkins MD [address] [place] [address] Olegario Joseph MD [address] [address] Referral ID Status Reason Start Date Expiration Date Visits Requested Visits Authorized [id number] Pending Review Specialty Services Required 09/02/2023 09/01/2024 1 1 [facility] for referral (narrative)* Diagnostic Procedure Only (Routine) - Pending Review Specialty Diagnoses / Procedures Referred By Contac t Referred To Contact XR IMAGING Diagnoses Chronic bilateral low back pain without sciatica Procedures XR LUMBAR GENERAL 3V AP/LAT/L5-S1 RADEX SPINE LUMBOSACRAL 2/3 VIEWS Noemi Pham MD [address] [facility] [place] [address] Xr Imaging [place] [address] Referral ID Status Reason Start Date Expiration Date Visits Requested Visits Authorized [id number] Pending Review Auto-Generat ed Referral 09/19/2023 10/18/2024 1 1 [facility] for referral (narrative)* Diagnostic Procedure Only (Routine) - Pending Review Specialty Diagnoses / Procedures Referred By Contac t Referred To Contact XR IMAGING Diagnoses Pain in left hip Pain in joint, multiple sites Procedures XR HIP 2V AP/LAT LEFT (AK,FL,ME,UN) RADEX HIP UNILATERAL WITH PELVIS 2-3 VIEWS Nish Chavez APRN.CNP [address] [place] [address] Xr Imaging [place] [address] Referral ID Status Reason Start Date Expiration Date Visits Requested Visits Authorized [id number] Pending Review Auto-Generat ed Referral 11/25/2023 12/24/2024 1 1 [facility] for visit Narrative* Outpatient Procedure (Routine) - Closed Specialty Diagnoses / Procedures Referred By Contac t Referred To Contact [facility] Diagnoses Fatigue, unspecified type Elevated aldolase level Generalized weakness Procedures EMG(NEURO/NI) NERVE CONDUCTION STUDIES 9-10 STUDIES Liz Connolly MD [address] [place] [address] [address] [place] [address] [place] [address] Referral ID Status Reason Start Date Expiration Date V isits Requested Visits Authorized [id number] Closed Auto-Generate d Referral 11/23/2022 11/24/2023 1 1 [facility] for visit Narrative* Outpatient Procedure (Routine) - Closed Specialty Diagnoses / Procedures Referred By Contac t Referred To Contact [facility] Diagnoses Myalgia Procedures EMG(NEURO/NI) NERVE CONDUCTION STUDIES 9-10 STUDIES Noemi Pham MD [address] [place] [address] Neurological [facility] [address] [place] [address] Referral ID Status Reason Start Date Expiration Date V isits Requested Visits Authorized [id number] Closed Auto-Generate d Referral 06/04/2024 06/04/2025 1 1 [facility] Advance Directives Documents on File Type Date Recorded 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 Revenue Accountant Expl anation ACP-Advance Directive ACP-Power of Note Teller Documents on File Type Date Recorded Patient Revenue Accountant Expl anation Advance Directives and Living Will Power of Note Teller Documents on File Type Date Recorded Patient Revenue Accountant Expl anation ACP-Advance Directive ACP-Power of Note Teller Latest Code Status on File Code Status Date Activated Date Inactivated Comments Full Code 09/06/2022 4:15 PM 09/07/2022 7:01 PM Latest Code Status on File Code Status Date Activated Date Inactivated Comments Full Code 09/06/2022 4:15 PM 09/07/2022 7:01 PM Advance Directive Response Recorded Date/ Time Advance Directives No August 04, 2022 9:07am Documents on File Type Date Recorded Patient Revenue Accountant Expl anation Advance Directive(s) 01/25/2024 7:45 AM Documents on File Type Date Recorded Patient Revenue Accountant Expl anation Advance Directive(s) 01/25/2024 7:45 AM Date Activated Date Inactivated Comments 09/06/2022 4:15 PM 09/07/2022 7:01 PM Date Activated Date Inactivated Comments 05/04/2024 9:58 AM 05/07/2024 2:34 AM Date Activated Date Inactivated Comments 09/06/2022 4:15 PM 09/07/2022 7:01 PM Summary Purpose Family History Relationship Condition Age at Onset Recorded Date/T kurt Not Specified Hypertension Unknown Diabetes mellitus Unknown Procedure Findings Note MR#: [id number] [facility] Pt. Name: Lynette Prince Surgery Date: 08/22/2019 Room #: Z0 Date of : 1975 PROCEDURE NOTE ATTENDING: Dina Zhou M.D. PROCEDURE PERFORMED: Esophagogastroduodenoscopy. LOCOMOTIVE ELECTRICIAN: Zackary Narvaez M.D. ANESTHESIA USED: Conscious sedation [...] ice in a towel. Please call your fish culturist tomorrow and your family physician tomorrow to schedule follow-up for 1to 2 days Return to the emergency room for worsening pain swelling numbness tingling or other emergent concerns * Attachments The following attachments cannot be sent through Care Everywhere. * Foot Sprain ([place]) documented in this encounter Assessments Diagnosis Sprain [...] Referred By Contac t Referred To Contact Diagnoses Migraine without aura and without status migrainosus, not intractable Danita Bob DO [address] [place] [address] Referral ID Status Reason Start Date Expiration Date V isits Requested Visits Authorized [id number] Pending Review 05/22/2024 07/21/2024 1 1 Specialty Diagnoses / Procedures Referred By Contac t Referred To Contact Noemi Pham MD [address] [place] [address] Referral ID Status Reason Start Date Expiration Date Visits Re quested Visits Authorized [id number] Closed 1 1 Specialty Diagnoses / Procedures Referred By Contac t Referred To Contact Neurology Diagnoses Abnormal involuntary movement Restless legs Procedures CONSULT TO NEUROLOGY OFFICE/OUTPATIENT [facility] 60 MINUTES Liz Connolly MD [address] [place] [address] Referral ID Status Reason Start Date Expiration Date Visits Requested Visits Authorized [id number] Authorized PCP Requested Referral 11/11/2023 11/10/2024 1 1 Specialty Diagnoses / Procedures Referred By Contac t Referred To Contact Neurology Diagnoses Vision disturbance Disturbance of skin sensation Alteration in bowel and bladder function Procedures CONSULT TO NEUROLOGY OFFICE/OUTPATIENT [facility] 60 MINUTES Liz Connolly MD [address] [place] [address] Referral ID Status Reason Start Date Expiration Date Visits Requested Visits Authorized [id number] Authorized PCP Requested Referral 11/11/2023 11/10/2024 1 1 Specialty Diagnoses / Procedures Referred By Contac t Referred To Contact MR IMAGING Diagnoses Demyelinating disease of central nervous system (HCC) Procedures MRI THORACIC SPINE WO/W IVCON MRI SPINAL CANAL THORACIC W/O & W/CONTR LOTTIEL Brett Dickson MD [address] [place] [id number] Mr Imaging [facility] Referral ID Status Reason Start Date Expiration Date Visits Requested Visits Authorized [id number] Pending Review Auto-Generat ed Referral 11/17/2023 12/16/2024 1 1 Specialty Diagnoses / Procedures Referred By Contac t Referred To Contact MR IMAGING Diagnoses Demyelinating disease of central nervous system (HCC) Procedures MRI CERVICAL SPINE WO/W IVCON MRI SPINAL CANAL CERVICAL W/O & W/CONTR Brett Whitfield MD [address] [place] [address] Mr Imaging [place] [address] Referral ID Status Reason Start Date Expiration Date Visits Requested Visits Authorized [id number] Pending Review Auto-Generat ed Referral 11/17/2023 12/16/2024 1 1 Specialty Diagnoses / Procedures Referred By Contac t Referred To Contact MR IMAGING Diagnoses Demyelinating disease of central nervous system (HCC) Procedures MRI BRAIN WO/W IVCON MRI BRAIN BRAIN STEM W/O W/CONTRAST MATERIAL Brett Dickson MD [address] [place] [address] Mr Imaging [place] [address] Referral ID Status Reason Start Date Expiration Date Visits Requested Visits Authorized [id number] Pending Review Auto-Generat ed Referral 11/17/2023 12/16/2024 1 1 Specialty Diagnoses / Procedures Referred By Contac t Referred To Contact MR IMAGING Diagnoses Spinal stenosis of lumbar region with neurogenic claudication Procedures MRI LUMBAR SPINE WO IVCON MRI SPINAL CANAL LUMBAR W/O CONTRAST MATERIAL Noemi Pham MD [address] [place] [phone] Mr Imaging [place] [address] Referral ID Status Reason Start Date Expiration Date Visits Requested Visits Authorized [id number] Pending Review Auto-Generat ed Referral 09/21/2023 10/20/2024 1 1 Chief Complaint and Reason for Visit Chief Complaint op sp rt elbow pain requested injection Reason for Visit Lateral epicondyliti s, right elbow Pain in right elbow Additional Source Comments Reason for Visit (unrecogniz ed section and content) Reason Comments Follow Up Specialty Diagnoses / Procedures Referred By Contac t Referred To Contact Rheumatology / RHEUMATOLOGY Diagnoses Arthritis Return in about 6 months (around 12/24/2023) for RA . Procedures [facility] Noemi Pham MD [address] [place] [phone] Referral ID Status Reason Start Date Expiration Date V isits Requested Visits Authorized [id number] Authorized 01/27/2024 07/24/2024 99 99 Status Reason Specialty Diagnoses / Procedures Referred By Contact Referred To Contact Authorized Physical Therapy Diagnoses Plantar fasciitis Procedures eval and treat Isael Yoder MD [address] [place] [address] Sander Jauregui, PT Reason Comments Foot Pain [...] Authorization Reason Comments Medication Problem Reason Comments Radiology XR Specialty Diagnoses / Procedures Referred By Zenac t Referred To Contact XR IMAGING Diagnoses Pain in joint, multiple sites Procedures XR LUMBAR GENERAL 3V AP/LAT/L5-S1 RADEX SPINE LUMBOSACRAL 2/3 VIEWS Noemi Pham MD [address] [place] [phone] Xr Imaging [place] [address] Referral ID Status Reason Start Date Expiration Date V isits Requested Visits Authorized [id number] Closed Auto-Generate d Referral 06/24/2023 07/23/2024 1 1 Reason Onset Date Comments Appointment 09/01/2023 Reason Comments Follow-up Hypertension Reason Comments Pain Reason Comments Results X-ray results XR lum bar spine Reason Comments Retinoschisis, bullous, bilateral Reason Comments Procedure Reason Comments New Patient Evaluation MS Evaluation Reason Comments Forms/letter Letter for work Reason Comments Established Patient Reason Comments office notes Reason Comments Med Change Request Reason Comments New Patient Movement disorder Specialty Diagnoses / Procedures Referred By Contac t Referred To Contact Neurology Diagnoses Abnormal involuntary movement Procedures CONSULT TO NEUROLOGY OFFICE/OUTPATIENT NEW HIGH MDM 60 MINUTES Brett Dickson MD [address] [place] [address] Referral ID Status Reason Start Date Expiration Date V isits Requested Visits Authorized [id number] Closed PCP Requested Referral 12/02/2023 12/01/2024 1 1 Reason Comments Follow Up Reason Comments Insurance Authorization [employer] Reason Comments Rx prior authorization Reason Comments Knee Pain Left knee no known i njury inflammed pain started 4 days ago Reason Comments Medication Question Methotrexate Reason Comments Drug Overdose Methotrexate Reason Onset Date Comments Refill Request 08/21/2024 Reason Comments Pain Specialty Diagnoses / Procedures Referred By Contac t Referred To Contact Orthopedic Surgery Diagnoses Acute pain of left knee Jonelle Puri, COMPUTER SCIENTIST-[facility] [address] [facility] [id number] [address] Phone: tel: fax: Bienvenido Reza MD [facility] [facility] [place] [address] Phone: tel: fax: Referral ID Status Reason Start Date Expiration Date Visits Requested Visits Authorized [id number] Pending Review Specialty Services Required 07/24/2025 1 1 Reason Onset Date Comments Headache 07/21/2023 Reason Comments Med Refill Reason Comments Migraine Migraine cocktail Reason Onset Date Comments Sleep Lab 11/29/2023 PSG INFORMATION SOURCE (unrecogn ized section and content) DATE CREATED AUTHOR 08/14/2020 [facility] DATE CREATED AUTHOR AUTHOR'S ORGANIZ ATION 09/20/2022 [facility] DATE CREATED AUTHOR AUTHOR'S ORGANIZ ATION 09/30/2023 [facility] DATE CREATED AUTHOR AUTHOR'S ORGANIZ ATION 02/11/2024 [facility] DATE CREATED AUTHOR AUTHOR'S ORGANIZ ATION 03/25/2024 [facility] DATE CREATED AUTHOR AUTHOR'S ORGANIZ ATION 05/25/2024 [facility] DATE CREATED AUTHOR AUTHOR'S ORGANIZ ATION 06/05/2024 [facility] DATE CREATED AUTHOR AUTHOR'S ORGANIZ ATION 07/12/2024 [facility] DATE CREATED AUTHOR AUTHOR'S ORGANIZ ATION 07/17/2024 [facility] DATE CREATED AUTHOR AUTHOR'S ORGANIZ ATION 07/27/2024 [facility] DATE CREATED AUTHOR AUTHOR'S ORGANIZ ATION 08/08/2024 [facility] DATE CREATED AUTHOR AUTHOR'S ORGANIZ ATION 08/13/[address] [facility] DATE CREATED AUTHOR AUTHOR'S ORGANIZ ATION 08/26/2024 [facility] DATE CREATED AUTHOR AUTHOR'S ORGANIZ ATION 08/26/2024 [facility] DATE CREATED AUTHOR AUTHOR'S ORGANIZ ATION 08/28/2024 [facility] Ordered Prescriptions (unrec ognized section and content) Prescription Sig Dispensed Refills Start Date End Da te predniSONE (DELTASONE) 20 MG tablet Take 1 tablet by mouth daily for 10 days 10 tablet 0 02/07/2021 02/17/2021 metaxalone (SKELAXIN) 400 MG tablet Take 1 tablet by mouth 3 times daily 21 tablet 0 02/07/2021 Prescription Sig Dispensed Refills Start Date End Da te leucovorin calcium (WELLCOVORIN) 10 MG tablet Take 2 tablets by mouth every 6 hours for 4 doses 8 tablet 07/14/2024 07/15/2024 Source Comments (unrecognize d section and content) In the event this informatio n is protected by the Federal Confidentiality of Alcohol and Drug Abuse Patient Records regulations: The Federal rules restrict any use of the information to criminally investigate or prosecute any alcohol or drug abuse patient.[facility] the event this information is protected by the Federal Confidentiality of Alcohol and Drug Abuse Patient Records regulations: The Federal rules restrict any use of the information to criminally investigate or prosecute any alcohol or drug abuse patient.[facility] the event this information is protected by the Federal Confidentiality of Alcohol and Drug Abuse Patient Records regulations: The Federal rules restrict any use of the information to criminally investigate or prosecute any alcohol or drug abuse patient.[facility] the event this information is protected by the Federal Confidentiality of Alcohol and Drug Abuse Patient Records regulations: The Federal rules restrict any use of the information to criminally investigate or prosecute any alcohol or drug abuse patient.[facility] the event this information is protected by the Federal Confidentiality of Alcohol and Drug Abuse Patient Records regulations: The Federal rules restrict any use of the information to criminally investigate or prosecute any alcohol or drug abuse patient.[facility] the event this information is protected by the Federal Confidentiality of Alcohol and Drug Abuse Patient Records regulations: The Federal rules restrict any use of the information to criminally investigate or prosecute any alcohol or drug abuse patient.[facility] the event this information is protected by the Federal Confidentiality of Alcohol and Drug Abuse Patient Records regulations: The Federal rules restrict any use of the information to criminally investigate or prosecute any alcohol or drug abuse patient.[facility] the event this information is protected by the Federal Confidentiality of Alcohol and Drug Abuse Patient Records regulations: The Federal rules restrict any use of the information to criminally investigate or prosecute any alcohol or drug abuse patient.[facility] the event this information is protected by the Federal Confidentiality of Alcohol and Drug Abuse Patient Records regulations: The Federal rules restrict any use of the information to criminally investigate or prosecute any alcohol or drug abuse patient.[facility] the event this information is protected by the Federal Confidentiality of Alcohol and Drug Abuse Patient Records regulations: The Federal rules restrict any use of the information to criminally investigate or prosecute any alcohol or drug abuse patient.[facility] the event this information is protected by the Federal Confidentiality of Alcohol and Drug Abuse Patient Records regulations: The Federal rules restrict any use of the information to criminally investigate or prosecute any alcohol or drug abuse patient.[facility] the event this information is protected by the Federal Confidentiality of Alcohol and Drug Abuse Patient Records regulations: The Federal rules restrict any use of the information to criminally investigate or prosecute any alcohol or drug abuse patient.[facility]In the event this information is protected by the Federal Confidentiality of Alcohol and Drug Abuse Patient Records regulations: The Federal rules restrict any use of the information to criminally investigate or prosecute any alcohol or drug abuse patient.[facility]In the event this information is protected by the Federal Confidentiality of Alcohol and Drug Abuse Patient Records regulations: The Federal rules restrict any use of the information to criminally investigate or prosecute any alcohol or drug abuse patient.[facility]In the event this information is protected by the Federal Confidentiality of Alcohol and Drug Abuse Patient Records regulations: The Federal rules restrict any use of the information to criminally investigate or prosecute any alcohol or drug abuse patient.[facility]In the event this information is protected by the Federal Confidentiality of Alcohol and Drug Abuse Patient Records regulations: The Federal rules restrict any use of the information to criminally investigate or prosecute any alcohol or drug abuse patient.[facility] HospitalIn the event this information is protected by the Federal Confidentiality of Alcohol and Drug Abuse Patient Records regulations: The Federal rules restrict any use of the information to criminally investigate or prosecute any alcohol or drug abuse patient.[facility] the event this information is protected by the Federal Confidentiality of Alcohol and Drug Abuse Patient Records regulations: The Federal rules restrict any use of the information to criminally investigate or prosecute any alcohol or drug abuse patient.[facility]In the event this information is protected by the Federal Confidentiality of Alcohol and Drug Abuse Patient Records regulations: The Federal rules restrict any use of the information to criminally investigate or prosecute any alcohol or drug abuse patient.[facility] HospitalIn the event this information is protected by the Federal Confidentiality of Alcohol and Drug Abuse Patient Records regulations: The Federal rules restrict any use of the information to criminally investigate or prosecute any alcohol or drug abuse patient.[facility] HospitalIn the event this information is protected by the Federal Confidentiality of Alcohol and Drug Abuse Patient Records regulations: The Federal rules restrict any use of the information to criminally investigate or prosecute any alcohol or drug abuse patient.[facility] HospitalIn the event this information is protected by the Federal Confidentiality of Alcohol and Drug Abuse Patient Records regulations: The Federal rules restrict any use of the information to criminally investigate or prosecute any alcohol or drug abuse patient.[facility] HospitalIn the event this information is protected by the Federal Confidentiality of Alcohol and Drug Abuse Patient Records regulations: The Federal rules restrict any use of the information to criminally investigate or prosecute any alcohol or drug abuse patient.[facility] HospitalIn the event this information is protected by the Federal Confidentiality of Alcohol and Drug Abuse Patient Records regulations: The Federal rules restrict any use of the information to criminally investigate or prosecute any alcohol or drug abuse patient.[facility] HospitalIn the event this information is protected by the Federal Confidentiality of Alcohol and Drug Abuse Patient Records regulations: The Federal rules restrict any use of the information to criminally investigate or prosecute any alcohol or drug abuse patient.[facility] HospitalIn the event this information is protected by the Federal Confidentiality of Alcohol and Drug Abuse Patient Records regulations: The Federal rules restrict any use of the information to criminally investigate or prosecute any alcohol or drug abuse patient.[facility] HospitalIn the event this information is protected by the Federal Confidentiality of Alcohol and Drug Abuse Patient Records regulations: The Federal rules restrict any use of the information to criminally investigate or prosecute any alcohol or drug abuse patient.[facility]In the event this information is protected by the Federal Confidentiality of Alcohol and Drug Abuse Patient Records regulations: The Federal rules restrict any use of the information to criminally investigate or prosecute any alcohol or drug abuse patient.[facility] HospitalIn the event this information is protected by the Federal Confidentiality of Alcohol and Drug Abuse Patient Records regulations: The Federal rules restrict any use of the information to criminally investigate or prosecute any alcohol or drug abuse patient.[facility] HospitalIn the event this information is protected by the Federal Confidentiality of Alcohol and Drug Abuse Patient Records regulations: The Federal rules restrict any use of the information to criminally investigate or prosecute any alcohol or drug abuse patient.[facility] HospitalIn the event this information is protected by the Federal Confidentiality of Alcohol and Drug Abuse Patient Records regulations: The Federal rules restrict any use of the information to criminally investigate or prosecute any alcohol or drug abuse patient.[facility] HospitalIn the event this information is protected by the Federal Confidentiality of Alcohol and Drug Abuse Patient Records regulations: The Federal rules restrict any use of the information to criminally investigate or prosecute any alcohol or drug abuse patient.[facility] HospitalIn the event this information is protected by the Federal Confidentiality of Alcohol and Drug Abuse Patient Records regulations: The Federal rules restrict any use of the information to criminally investigate or prosecute any alcohol or drug abuse patient.[facility] HospitalIn the event this information is protected by the Federal Confidentiality of Alcohol and Drug Abuse Patient Records regulations: The Federal rules restrict any use of the information to criminally investigate or prosecute any alcohol or drug abuse patient.[facility] HospitalIn the event this information is protected by the Federal Confidentiality of Alcohol and Drug Abuse Patient Records regulations: The Federal rules restrict any use of the information to criminally investigate or prosecute any alcohol or drug abuse patient.[facility] HospitalIn the event this information is protected by the Federal Confidentiality of Alcohol and Drug Abuse Patient Records regulations: The Federal rules restrict any use of the information to criminally investigate or prosecute any alcohol or drug abuse patient.[facility] HospitalIn the event this information is protected by the Federal Confidentiality of Alcohol and Drug Abuse Patient Records regulations: The Federal rules restrict any use of the information to criminally investigate or prosecute any alcohol or drug abuse patient.[facility] HospitalIn the event this information is protected by the Federal Confidentiality of Alcohol and Drug Abuse Patient Records regulations: The Federal rules restrict any use of the information to criminally investigate or prosecute any alcohol or drug abuse patient.[facility] HospitalIn the event this information is protected by the Federal Confidentiality of Alcohol and Drug Abuse Patient Records regulations: The Federal rules restrict any use of the information to criminally investigate or prosecute any alcohol or drug abuse patient.[facility] HospitalIn the event this information is protected by the Federal Confidentiality of Alcohol and Drug Abuse Patient Records regulations: The Federal rules restrict any use of the information to criminally investigate or prosecute any alcohol or drug abuse patient.[facility] HospitalIn the event this information is protected by the Federal Confidentiality of Alcohol and Drug Abuse Patient Records regulations: The Federal rules restrict any use of the information to criminally investigate or prosecute any alcohol or drug abuse patient.[facility] HospitalIn the event this information is protected by the Federal Confidentiality of Alcohol and Drug Abuse Patient Records regulations: The Federal rules restrict any use of the information to criminally investigate or prosecute any alcohol or drug abuse patient.[facility] HospitalIn the event this information is protected by the Federal Confidentiality of Alcohol and Drug Abuse Patient Records regulations: The Federal rules restrict any use of the information to criminally investigate or prosecute any alcohol or drug abuse patient.[facility] HospitalIn the event this information is protected by the Federal Confidentiality of Alcohol and Drug Abuse Patient Records regulations: The Federal rules restrict any use of the information to criminally investigate or prosecute any alcohol or drug abuse patient.[facility] HospitalIn the event this information is protected by the Federal Confidentiality of Alcohol and Drug Abuse Patient Records regulations: The Federal rules restrict any use of the information to criminally investigate or prosecute any alcohol or drug abuse patient.[facility] HospitalIn the event this information is protected by the Federal Confidentiality of Alcohol and Drug Abuse Patient Records regulations: The Federal rules restrict any use of the information to criminally investigate or prosecute any alcohol or drug abuse patient.[facility] HospitalIn the event this information is protected by the Federal Confidentiality of Alcohol and Drug Abuse Patient Records regulations: The Federal rules restrict any use of the information to criminally investigate or prosecute any alcohol or drug abuse patient.[facility] HospitalIn the event this information is protected by the Federal Confidentiality of Alcohol and Drug Abuse Patient Records regulations: The Federal rules restrict any use of the information to criminally investigate or prosecute any alcohol or drug abuse patient.[facility] HospitalIn the event this information is protected by the Federal Confidentiality of Alcohol and Drug Abuse Patient Records regulations: The Federal rules restrict any use of the information to criminally investigate or prosecute any alcohol or drug abuse patient.[facility] HospitalIn the event this information is protected by the Federal Confidentiality of Alcohol and Drug Abuse Patient Records regulations: The Federal rules restrict any use of the information to criminally investigate or prosecute any alcohol or drug abuse patient.[facility] HospitalIn the event this information is protected by the Federal Confidentiality of Alcohol and Drug Abuse Patient Records regulations: The Federal rules restrict any use of the information to criminally investigate or prosecute any alcohol or drug abuse patient.[facility] HospitalIn the event this information is protected by the Federal Confidentiality of Alcohol and Drug Abuse Patient Records regulations: The Federal rules restrict any use of the information to criminally investigate or prosecute any alcohol or drug abuse patient.[facility] HospitalIn the event this information is protected by the Federal Confidentiality of Alcohol and Drug Abuse Patient Records regulations: The Federal rules restrict any use of the information to criminally investigate or prosecute any alcohol or drug abuse patient.[facility] HospitalIn the event this information is protected by the Federal Confidentiality of Alcohol and Drug Abuse Patient Records regulations: The Federal rules restrict any use of the information to criminally investigate or prosecute any alcohol or drug abuse patient.[facility] HospitalIn the event this information is protected by the Federal Confidentiality of Alcohol and Drug Abuse Patient Records regulations: The Federal rules restrict any use of the information to criminally investigate or prosecute any alcohol or drug abuse patient.[facility] HospitalIn the event this information is protected by the Federal Confidentiality of Alcohol and Drug Abuse Patient Records regulations: The Federal rules restrict any use of the information to criminally investigate or prosecute any alcohol or drug abuse patient.[facility] HospitalIn the event this information is protected by the Federal Confidentiality of Alcohol and Drug Abuse Patient Records regulations: The Federal rules restrict any use of the information to criminally investigate or prosecute any alcohol or drug abuse patient.[facility]In the event this information is protected by the Federal Confidentiality of Alcohol and Drug Abuse Patient Records regulations: The Federal rules restrict any use of the information to criminally investigate or prosecute any alcohol or drug abuse patient.[facility]In the event this information is protected by the Federal Confidentiality of Alcohol and Drug Abuse Patient Records regulations: The Federal rules restrict any use of the information to criminally investigate or prosecute any alcohol or drug abuse patient.[facility]In the event this information is protected by the Federal Confidentiality of Alcohol and Drug Abuse Patient Records regulations: The Federal rules restrict any use of the information to criminally investigate or prosecute any alcohol or drug abuse patient.[facility] HospitalIn the event this information is protected by the Federal Confidentiality of Alcohol and Drug Abuse Patient Records regulations: The Federal rules restrict any use of the information to criminally investigate or prosecute any alcohol or drug abuse patient.[facility]In the event this information is protected by the Federal Confidentiality of Alcohol and Drug Abuse Patient Records regulations: The Federal rules restrict any use of the information to criminally investigate or prosecute any alcohol or drug abuse patient.[facility] HospitalIn the event this information is protected by the Federal Confidentiality of Alcohol and Drug Abuse Patient Records regulations: The Federal rules restrict any use of the information to criminally investigate or prosecute any alcohol or drug abuse patient.[facility] HospitalIn the event this information is protected by the Federal Confidentiality of Alcohol and Drug Abuse Patient Records regulations: The Federal rules restrict any use of the information to criminally investigate or prosecute any alcohol or drug abuse patient.[facility] HospitalIn the event this information is protected by the Federal Confidentiality of Alcohol and Drug Abuse Patient Records regulations: The Federal rules restrict any use of the information to criminally investigate or prosecute any alcohol or drug abuse patient.[facility] HospitalIn the event this information is protected by the Federal Confidentiality of Alcohol and Drug Abuse Patient Records regulations: The Federal rules restrict any use of the information to criminally investigate or prosecute any alcohol or drug abuse patient.[facility] HospitalIn the event this information is protected by the Federal Confidentiality of Alcohol and Drug Abuse Patient Records regulations: The Federal rules restrict any use of the information to criminally investigate or prosecute any alcohol or drug abuse patient.[facility] Teams (unrecognized sec tion and content) Snow Removing Supervisor Relationship Specialty Start Date End Date Toy Obrien MD PCP - General Family Practice 07/05/16 Snow Removing Supervisor Relationship Specialty Start Date End Date Toy Obrien MD PCP - General Family Practice 07/05/16 Snow Removing Supervisor Relationship Specialty Start Date End Date Toy Obrien MD PCP - General Family Medicine 07/05/16 Snow Removing Supervisor Relationship Specialty Start Date End Date Toy Obrien MD PCP - General Family Medicine 07/05/16 Snow Removing Supervisor Relationship Specialty Start Date End Date Toy Obrien MD PCP - General Family Medicine 07/05/16 Team Status: Inactive Member Role Status Dates Jud Monosn NP-C Attending Provider Active Snow Removing Supervisor Relationship Specialty Start Date End Date Toy Obrien MD PCP - General Family Medicine 07/05/16 Snow Removing Supervisor Relationship Specialty Start Date End Date Toy Obrien MD PCP - General Family Medicine 07/05/16 Snow Removing Supervisor Relationship Specialty Start Date End Date Toy Obrien MD PCP - General Family Medicine 07/05/16 Snow Removing Supervisor Relationship Specialty Start Date End Date Toy Obrien MD PCP - General Family Medicine 07/05/16 Snow Removing Supervisor Relationship Specialty Start Date End Date Toy Obrien MD PCP - General Family Medicine 07/05/16 Snow Removing Supervisor Relationship Specialty Start Date End Date Toy Obrien MD PCP - General Family Medicine 07/05/16 Snow Removing Supervisor Relationship Specialty Start Date End Date Toy Obrien MD PCP - General Family Medicine 07/05/16 Snow Removing Supervisor Relationship Specialty Start Date End Date Toy Obrien MD PCP - General Family Medicine 07/05/16 Snow Removing Supervisor Relationship Specialty Start Date End Date Toy Obrien MD PCP - General Family Medicine 07/05/16 Snow Removing Supervisor Relationship Specialty Start Date End Date Toy Obrien MD PCP - General Family Medicine 07/05/16 Snow Removing Supervisor Relationship Specialty Start Date End Date Toy Obrien MD PCP - General Family Medicine 07/05/16 Snow Removing Supervisor Relationship Specialty Start Date End Date Toy [facility]rien [facility] [place] [address] PCP - General Family Medicine 09/06/22 Snow Removing Supervisor Relationship Specialty Start Date End Date Toy [facility]rien [facility] [place] [place] [id number] PCP - General Family Medicine 09/06/22 Snow Removing Supervisor Relationship Specialty Start Date End Date Toy Obrien MD PCP - General Family Medicine 07/05/16 Snow Removing Supervisor Relationship Specialty Start Date End Date Toy Obrien MD PCP - General Family Medicine 07/05/16 Snow Removing Supervisor Relationship Specialty Start Date End Date Toy Obrien MD PCP - General Family Medicine 07/05/16 Snow Removing Supervisor Relationship Specialty Start Date End Date Toy Obrien MD PCP - General Family Medicine 07/05/16 Snow Removing Supervisor Relationship Specialty Start Date End Date Toy Obrien MD [facility] [place] [phone] PCP - General Family Medicine 09/06/22 Snow Removing Supervisor Relationship Specialty Start Date End Date Toy Obrien MD [facility] [place] [phone] PCP - General Family Medicine 09/06/22 Snow Removing Supervisor Relationship Specialty Start Date End Date Toy Obrien MD [facility] [place] [phone] PCP - General Family Medicine 09/06/22 Team Status: Active Member Role Status Dates NON STAFF Primary Care Provider Active Team Status: Inactive Member Role Status Dates NON STAFF Primary Care Provider Active Start: November 03, 2023 End: November 03, 2023 Jud Monson , GROUP HOME COUNSELOR-C Attending Provider Active Start: November 03, 2023 End: November 03, 2023 Snow Removing Supervisor Relationship Specialty Start Date End Date Toy Obrien MD PCP - General Family Medicine 07/05/16 [facility] [address] [place] [address], [place] [address] Gastroenterology 11/07/23 Snow Removing Supervisor Relationship Specialty Start Date End Date Toy Obrien MD PCP - General Family Medicine 07/05/16 [facility] [address] [place] [address], [place] [address] Gastroenterology 11/07/23 Snow Removing Supervisor Relationship Specialty Start Date End Date Toy Obrien MD PCP - General Family Medicine 07/05/16 [facility] [address] [place] [address], [place] [address] Gastroenterology 11/07/23 Snow Removing Supervisor Relationship Specialty Start Date End Date Toy Obrien MD PCP - General Family Medicine 07/05/16 [facility] [address] [place] [address] [place] [address], [place] [address] Gastroenterology 11/07/23 Snow Removing Supervisor Relationship Specialty Start Date End Date Toy Obrien MD PCP - General Family Medicine 07/05/16 [facility] [address] [place] [address], [place] [address] Gastroenterology 11/07/23 Snow Removing Supervisor Relationship Specialty Start Date End Date Toy Obrien MD PCP - General Family Medicine 07/05/16 [facility] [address] [place] [address], [place] [address] Gastroenterology 11/07/23 Snow Removing Supervisor Relationship Specialty Start Date End Date Toy Obrien MD PCP - General Family Medicine 07/05/16 [facility] [address] [place] [address], [place] [address] Gastroenterology 11/07/23 Snow Removing Supervisor Relationship Specialty Start Date End Date Toy Obrien MD PCP - General Family Medicine 07/05/16 [facility] [address] [place] [address], [place] [address] Gastroenterology 11/07/23 Snow Removing Supervisor Relationship Specialty Start Date End Date Toy Obrien MD PCP - General Family Medicine 07/05/16 [facility] [address] [place] [address], [place] [address] Gastroenterology 11/07/23 Snow Removing Supervisor Relationship Specialty Start Date End Date Toy Obrien MD PCP - General Family Medicine 07/05/16 [facility] [address] [place] [address], [address] [place] [address] Gastroenterology 11/07/23 Snow Removing Supervisor Relationship Specialty Start Date End Date Toy Obrien MD PCP - General Family Medicine 07/05/16 [facility] [address] [place] [address], [place] [address] Gastroenterology 11/07/23 Snow Removing Supervisor Relationship Specialty Start Date End Date Toy Obrien MD PCP - General Family Medicine 07/05/16 [facility] [address] [place] [address] [place] [address], [place] [address] Gastroenterology 11/07/23 Snow Removing Supervisor Relationship Specialty Start Date End Date Toy Obrien MD PCP - General Family Medicine 07/05/16 [facility] [address] [place] [address], [address] [place] [address] Gastroenterology 11/07/23 Snow Removing Supervisor Relationship Specialty Start Date End Date Toy Obrien MD PCP - General Family Medicine 07/05/16 [facility] [address] [place] [address] Gastroenterology 11/07/23 Snow Removing Supervisor Relationship Specialty Start Date End Date Toy Obrien MD PCP - General Family Medicine 07/05/16 [facility] [address] [place] [address], [place] [address] Gastroenterology 11/07/23 Snow Removing Supervisor Relationship Specialty Start Date End Date Toy Obrien MD PCP - General Family Medicine 07/05/16 [facility] [address] [place] [address], [place] [address] Gastroenterology 11/07/23 Snow Removing Supervisor Relationship Specialty Start Date End Date Toy Obrien MD PCP - General Family Medicine 07/05/16 [facility] [address] [place] [address], [place] [address] Gastroenterology 11/07/23 Snow Removing Supervisor Relationship Specialty Start Date End Date Toy Obrien MD PCP - General Family Medicine 07/05/16 [facility] [address] [place] [address], [place] [address] Gastroenterology 11/07/23 Snow Removing Supervisor Relationship Specialty Start Date End Date Toy Obrien MD PCP - General Family Medicine 09/06/22 Snow Removing Supervisor Relationship Specialty Start Date End Date Toy Obrien MD PCP - General 07/03/16 Snow Removing Supervisor Relationship Specialty Start Date End Date Toy Obrien MD PCP - General Family Medicine 09/06/22 Snow Removing Supervisor Relationship Specialty Start Date End Date Toy Obrien MD PCP - General Family Medicine 07/05/16 [facility] [address] [place] [address] Gastroenterology 11/07/23 Snow Removing Supervisor Relationship Specialty Start Date End Date Toy Obrien MD [address] [place] [id number] PCP - General Family Medicine 09/06/22 Snow Removing Supervisor Relationship Specialty Start Date End Date Toy Obrien MD [address] [place] [id number] PCP - General Family Medicine 09/06/22 Snow Removing Supervisor Relationship Specialty Start Date End Date Toy Obrien MD PCP - General Family Medicine 07/05/16 Ham Barton [address] [place] [address] [place] [id number] Gastroenterology 11/07/23 Snow Removing Supervisor Relationship Specialty Start Date End Date Toy Obrine MD [address] [place] [phone] PCP - [facility] Medicine 09/06/22 Snow Removing Supervisor Relationship Specialty Start Date End Date Toy Obrien MD [address] [place] [phone] PCP - [facility] 09/06/22 Snow Removing Supervisor Relationship Specialty Start Date End Date Toy Obrien MD [address] [place] [phone] PCP - [facility] 09/06/22 Snow Removing Supervisor Relationship Specialty Start Date End Date Toy Obrien MD [address] [place] [phone] PCP - [facility] 09/06/22 Goals (unrecognized section and content) Goals may be documented in a n alternate sectionNo InformationNo InformationNo InformationNot on filedocumented as of this encounterNot on filedocumented as of this encounterNot on filedocumented as of this encounterNot on filedocumented as of this encounterNot on filedocumented as of this encounterNot on filedocumented as of this encounterGoals may be documented in an alternate sectionNot on filedocumented as of this encounterNot on filedocumented as of this encounterNot on filedocumented as of this encounterNot on filedocumented as of this encounterNot on filedocumented as of this encounterNot on filedocumented as of this encounterNot on filedocumented as of this encounterNot on filedocumented as of this encounterNot on filedocumented as of this encounterNot on filedocumented as of this encounter Scheduled Active and Recently Administ ered Medications (unrecognized section and content) Medication Order 07/12/2024 07/13/2024 07/14/2024 aluminum & magnesium hydroxide-simethicone (MAALOX) 200-200-20 MG/5ML suspension 30 mL (COMPLETED) 30 mL, Swish & Swallow, ONCE, 1 dose, On 07/14/24 at 1045 1046 (Given - Provid er: Danita Stoddard RN) leucovorin calcium (WELLCOVORIN) tablet 22.5 mg 22.5 mg (rounded from 23.2 mg = 10 mg/m2 2.32 m2), Oral, EVERY 6 HOURS, First dose on 07/14/24 at 1345, Until Discontinued 1515 (Given - Provid er: Danita Stoddard RN)1945 (Due) FOR RECORDS PERTAINING TO PATIENTS WHO ARE [...] BE BASED ON THE PRIMARY CLINICAL RECORDS. [email or web address] provides no warranty or guarantee of the accuracy or completeness of information in this document.
[2024-09-03 20:12] VITALS: BP 130/82; PULSE 95; TEMP 37.1; O2SAT 98; BMI 41.2
--- NOTE | 2024-09-03 20:24 | US_ITS ---
The [address] [address] Patient Name: ROSELIA LANDRY MRN: [id number] date: 1975 Sex: F Assigned Patient Location: ED.MAIN Current Patient Location: Accession/Order Number: [id number] Exam Date: 09/03/2024 20:40 Report Date: 09/03/2024 23:15 At the request of: JULIAN CHAMBERS Procedure: US venous doppler UE RT ULTRASOUND OF THE RIGHT UPPER EXTREMITY. HISTORY: Pain. COMPARISON: None. TECHNIQUE: The deep venous system of the right upper extremity was evaluated using lauren-scale, color Doppler, and spectral waveform analysis. FINDINGS: There is thrombus in a branch of the brachial vein which corresponds to the area of pain. The internal jugular, subclavian, axillary, radial and ulnar veins demonstrate normal color Doppler flow and are normally compressible throughout. The cephalic and basilic veins are widely patent. US/US venous doppler UE RT IMPRESSION: Thrombus in a branch of the brachial vein which corresponds to the area pain. It is not clear if this is a superficial or deep venous thrombosis. Electronically authenticated by: NELLY HAYES Date: 09/03/2024 23:15
--- NOTE | 2024-09-03 20:25 | ECG_ITS ---
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
--- NOTE | 2024-09-03 21:35 | ED_ITS ---
HPI HPI - General Adult General Chief complaint: Chest Pain Stated complaint: CP/SOB AFTER BLOOD DRAW W/ BUMP TRAVELING Time Seen by Provider: 09/03/24 21:31 Source: patient Mode of arrival: walk-in Limitations: no limitations History of Present Illness HPI narrative: 49-year-old female presents for a bump on her right elbow area. 3 days ago she had blood drawn and in the last day or 2 she states this bump developed. She got very worried about and was worried she might have a blood clot so she came in here. She had some tightness in her chest but she thinks that might be due to stress, being concerned about her arm. Related Data Home Medications ?Medication ?Instructions ?Recorded ?Confirmed aluminum chloride 20 % topical topical 09/03/24 solution (Drysol Dab-O-Matic) aripiprazole 5 mg tablet mg 09/03/24 erythromycin 5 mg/gram (0.5 %) eye ophthalmic (eye) 09/03/24 ointment metoprolol succinate 25 mg mg PO 09/03/24 tablet,extended release 24 hr metronidazole 500 mg tablet mg 09/03/24 mirabegron 50 mg tablet,extended mg PO 09/03/24 release 24 hr nystatin 100,000 unit/gram topical topical 09/03/24 powder rimegepant 75 mg disintegrating mg 09/03/24 tablet (Nurtec ODT) sertraline 100 mg tablet mg 09/03/24 Allergies Allergy/AdvReac Type Severity Reaction Status Date / Time meloxicam (From Mobic) Allergy Hives Verified 09/03/24 20:19 Opioid HPI Opioid Management Most Recent Opioid Data: No Data to Display Review of Systems ROS Narrative A ten point review of systems is negative except as noted above. PFSH PFSH Social History Little interest or pleasure in doing things: not at all Feeling down, depressed, or hopeless: not at all Exam Narrative Exam Narrative: Nurses note and vital signs reviewed and patient is not hypoxic. General: The patient appears well and in no apparent distress. Patient is resting comfortably on cart. Skin: Warm, dry, no pallor noted. There is no rash noted. Head: Normocephalic, atraumatic Eye: Normal conjunctiva, no drainage Ears, Nose, Mouth, and Throat: oral mucosa is moist. Nares patent. Cardiovascular: Regular Rate and Rhythm Respiratory: Patient is in no distress, no accessory muscle use, lungs are francisca ar to auscultation, no wheezing, rales or rhonchi Back: non-tender, no CVA tenderness bilaterally to percussion. GI: Soft and nontender Musculoskeletal: The right arm is examined. She has yellow bruising in the antecubital fossa and just proximal to that a linear firm area. Neurological: A&O, normal speech Psychiatric: Cooperative Constitutional Vital Signs, click to edit/add: Last Vital Signs Temp 98.7 F 09/03/24 20:12 Pulse 95 H 09/03/24 20:12 Resp 18 09/03/24 20:12 BP 130/82 09/03/24 20:12 Pulse Ox 98 09/03/24 20:12 O2 Del Method Room Air 09/03/24 20:12 Course Vital Signs Vital signs: Vital Signs Temperature 98.7 F 09/03/24 20:12 Pulse Rate 95 H 09/03/24 20:12 Respiratory Rate 18 09/03/24 20:12 Blood Pressure 130/82 09/03/24 20:12 Pulse Oximetry 98 09/03/24 20:12 Oxygen Delivery Method Room Air 09/03/24 20:12 Temperature 98.7 F 09/03/24 20:12 Pulse Rate 95 H 09/03/24 20:12 Respiratory Rate 18 09/03/24 20:12 Blood Pressure 130/82 09/03/24 20:12 Pulse Oximetry 98 09/03/24 20:12 Oxygen Delivery Method Room Air 09/03/24 20:12 Medical Decision Making MDM Narrative Medical decision making narrative: Arm Doppler shows superficial thrombophlebitis. She was reassured and is discharged home. EKG shows no acute findings and she states she feels better now that she knows her arm is okay. She was recommended warm compresses and Motrin. Treatment diagnosis and follow-up were discussed with the patient. Differential Diagnosis Differential Diagnosis: Superficial thrombophlebitis, DVT ECG Data Attestation: I personally reviewed and interpreted this ECG as follows: (EKG on my interpretation shows normal sinus rhythm with a rate of 93 and no acute change) Discharge Plan Discharge Chief Complaint: Chest Pain Clinical Impression: Superficial thrombophlebitis Patient Disposition: Home, Self-Care Time of Disposition Decision: 21:35 Condition: Good Mode of Transportation: Private Vehicle Prescriptions / Home Meds: No Action sertraline 100 mg tablet Drysol Dab-O-Matic 20 % solution TOPICAL metronidazole 500 mg tablet erythromycin 5 mg/gram (0.5 %) ointment OPHTHALMIC (EYE) metoprolol succinate 25 mg tablet extended release 24 hr PO nystatin 100,000 unit/gram powder TOPICAL aripiprazole 5 mg tablet mirabegron 50 mg tablet extended release 24 hr PO Nurtec ODT 75 mg tablet,disintegrating Print Language: Tuvaluan Instructions: Superficial Thrombophlebitis (ED) Additional Instructions: Use warm compresses and take Motrin Referrals: Physician,Non-Staff, MD [Primary Care Provider] - 1 week
--- NOTE | 2024-09-03 21:43 | PC.NURSE ---
Patient to ED with c/o pain to right AC after a blood draw a few days ago. She says there is hardening of the area and she is concerned for a clot She has been having chest pain since this afternoon also, she is not sure if it is due to stress or cardiac issues. Dr. Gloria has EKG to go over with patient.
== END 2024-09-03 21:46 | disposition home or self-care (01) ==
PROVIDERS: Emergency Provider Emergency Medicine
DX: I80.8 Phlebitis and thrombophlebitis of other sites (principal); R07.89 Other chest pain
CPT/HCPCS: 93005; 93971; 99284